=== PATIENT | female | born 1945 | race Caucasian/White ===

== ENCOUNTER 2016-08-01 09:37 | Observation (INO) | payer BC ==
[~2016-08-01] VITALS: Ht 165.1 cm; Wt 115.9 kg
[~2016-08-01 09:37] MED LIST: ASPEC325 PO; CLTP PO; DYZ PO; ENBIUNK BT; ENOX40IN SQ; FSM70 PO; LRT5 PO; OXYSR10 PO; PRAV20TA PO
[2016-08-01] MEDS ORDERED: MoRPHine SULFATE 10 MG/ML CARP/VIAL IV STA (10:15)
[2016-08-01] MEDS ORDERED: ONDANSETRON INJ 2 MG/ML 2 ML VIAL IV STA (10:15)
[2016-08-01] MEDS ORDERED: SODIUM CHLORIDE 0.9% 500ML 500 ML IV STA (10:15)
[2016-08-01 10:22] LABS: BASO % 0.1 %; BASO ABS # 0.01 K/uL (0-0.2); COMPLETE YES; EOS % 2.3 %; HEMATOCRIT 40.8 % (37-47); IG% 0.2 %; LYMPH % 7.5 %; LYMPH ABS # 0.85 K/uL (1.2-3.4); MEAN CELL VOLUME 83.4 fL (80-100); MEAN CORPUSCULAR HEMOGLOBIN 27.6 pg (25-34); MEAN CORPUSCULAR HGB CONC 33.1 g/dl (32-36); MEAN PLATELET VOLUME 9.4 fL (7.4-10.4); MONO % 6.7 %; NEUT % 83.2 %; PLATELET COUNT 186 K/uL (130-400); RED BLOOD COUNT 4.89 M/uL (4.2-5.4); WHITE BLOOD COUNT 11.37 K/uL (4.8-10.8)
[2016-08-01 10:32] LABS: BLOOD UREA NITROGEN 32 mg/dl (7-18); BUN/CREATININE RATIO 22.6 (10-20); CALCIUM 9.4 mg/dl (8.5-10.1); CARBON DIOXIDE 29 mmol/L (21-32); CHLORIDE 107 mmol/L (98-107); GLUCOSE 111 mg/dl (70-99); POTASSIUM 2.8 mmol/L (3.5-5.1); SODIUM 144 mmol/L (136-145)
[2016-08-01] MEDS ORDERED: ASPI-113 PO (10:33)
[2016-08-01] MEDS ORDERED: LEFL20TA PO (10:33)
[2016-08-01] MEDS ORDERED: TRIATAB3 PO (10:33)
[2016-08-01] MEDS ORDERED: HYDR200T5 PO (10:33)
[2016-08-01] MEDS ORDERED: CALC600T34 PO (10:33)
--- NOTE | 2016-08-01 11:13 | DIAGNOSTIC IMAGING REPORT ---
LUMBAR SPINE CT CT DOSE: 1578.13 mGy.cm HISTORY: Pain severe lower back pain TECHNIQUE: Multiaxial CT images of the lumbar spine were performed and reformatted in the sagittal and coronal plane without the use of contrast. COMPARISON: None. FINDINGS: No fractures. No subluxation. Paraspinal soft tissues are unremarkable. Moderate degenerative disc changes noted throughout. No evidence for major compromise of the spinal canal. Mild degenerative sclerosis of the vertebral endplates as well as posterior elements. IMPRESSION: Moderate degenerative change throughout. Mild osteopenia. No evidence for an acute compression deformity. No significant compromise of the spinal canal. Electronically signed by: Rocael Carver M.D. 08/01/2016 11:11 AM Dictated Date/Time: 08/01/2016 11:08 AM
[2016-08-01] MEDS ORDERED: POTASSIUM CHLORIDE 10 MEQ TABCR PO STA (11:29)
[2016-08-01] MEDS ORDERED: HYDROmorphone INJ 0.5 MG/0.5 ML SYR IV STA (11:40)
[2016-08-01 13:10] VITALS: O2SAT 95; BMI 42.5
[2016-08-01 13:18] VITALS: Ht 165.1 cm; Wt 115.9 kg
[2016-08-01] MEDS ORDERED: HYDROmorphone INJ 1 MG/ML SYR ONE (13:58)
[2016-08-01 14:36] VITALS: BP 175/93; PULSE 88; TEMP 36.5; O2SAT 97
[2016-08-01] MEDS ORDERED: LIDODERM (LIDOCAINE) PATCH 5% TD ONE (14:40)
[2016-08-01] MEDS ORDERED: DEXAMETHASONE INJ 2 MG in SYRINGE 0 ML IV SCH (15:30)
[2016-08-01] MEDS: HYDROmorphone INJ 2 MG/ML SYR/VIAL IV PRN ×2 (16:04→21:43)
--- NOTE | 2016-08-01 17:06 | EMERGENCY ROOM VISIT NOTE ---
History Report prepared by Figueroa: Yarelis Kirkpatrick Under the Supervision of: Dr. Luan Bray D.O. First contact with patient: 10:02 Chief Complaint: BACK PAIN Stated Complaint: LOWER BACK PAIN History of Present Illness The patient is a 70 year old female who presents to the Emergency Room with complaints of worsening lower back pain starting 1 week ago. The patient rates her pain as a 10/10 in severity. She returned home from shopping with her niece when the pain started. The pain is slightly relieved with laying flat. The pain worsens with sitting up, standing, and walking. She is unable to walk because of her pain. She denies any weakness or numbness in her legs. She is able to urinate and move her bowels normally. The redness on her legs is normal. Pt denies headache, change in vision, fevers, chest pain, shortness of breath, nausea, vomiting, diarrhea, and pain with urination. She denies any trauma or falls. She has had no previous back surgeries. She has had a right hip replacement. She has a history of rheumatoid arthritis. She takes 1 Ecotrin a day. She is not on any other blood thinners. Source of History: patient Onset: 1 week ago Position: back (lower) Symptom Intensity: 10/10 Timing: worsening Modifying Factors (Worsening): movement, other (sitting, standing) Modifying Factors (Relieving): other (lying flat) Associated Symptoms: No SOB, No chest pain, No diarrhea, No fevers, No headache, No nausea, No numbness, No urinary symptoms, No vomiting, No weakness Note: Pt denies change in vision. Review of Systems See HPI for pertinent positives & negatives. A total of 10 systems reviewed and were otherwise negative. Past Medical & Surgical Medical Problems: (1) Ambulatory dysfunction Family History No pertinent family history reported. Social History Smoking Status: Never Smoker Marital Status: single Housing Status: lives alone Occupation Status: retired Current/Historical Medications Scheduled Aspirin Enteric Coated (Ecotrin Or Generic), 325 MG PO DAILY Calcium Carbonate-Cholecalcife (Calcium/Vitamin D), 1 TAB PO DAILY Hydroxychloroquine Sulfate (Plaquenil), 400 MG PO QAM Leflunomide (Arava), 20 MG PO DAILY Pravastatin (Pravachol ), 20 MG PO QPM Triamterene/Hctz (Triamterene/Hctz 37.5-25MG), 1 TAB PO QPM Allergies Coded Allergies: Oxycodone (Unverified Allergy, Unknown, NAUSEA, 08/01/16) Sulfa Antibiotics (Unverified Allergy, Unknown, RASH, 08/01/16) Physical Exam Vital Signs Date Time Temp Pulse Resp B/P Pulse Ox O2 Delivery O2 Flow Rate FiO2 08/01/16 11:41 76 18 155/94 95 Room Air 08/01/16 09:40 36.6 78 20 200/158 97 Physical Exam GENERAL: Laying in bed, disheveled, nontoxic, in moderate distress EYE EXAM: normal conjunctiva OROPHARYNX: no exudate, no erythema, lips, buccal mucosa, and tongue normal and mucous membranes are moist NECK: supple, no nuchal rigidity, no adenopathy, non-tender LUNGS: Clear to auscultation. Normal chest wall mechanics HEART: no murmurs, S1 normal and S2 normal ABDOMEN: abdomen soft, non-tender, normo-active bowel sounds, no masses, no rebound or guarding. BACK: Acute reproducible tenderness to the lower lumbar spine tracking into the paraspinal region. SKIN: no rashes and no bruising UPPER EXTREMITIES: upper extremities are grossly normal. LOWER EXTREMITIES: Flexion/extension of hip, knee, ankle, EHL 5/5 bilaterally. Gross sensation intact. Old incision over bilateral knee, mild erythema on anterior shins (old per patient), skin intact. NEURO EXAM: Normal sensorium, cranial nerves II-XII grossly intact, normal speech, no weakness of arms, no weakness of legs. Medical Decision & Procedures ER Provider Diagnostic Interpretation: Radiology results as stated below per my review and the radiologist's interpretation: LUMBAR SPINE CT CT DOSE: 1578.13 mGy.cm HISTORY: Pain severe lower back pain TECHNIQUE: Multiaxial CT images of the lumbar spine were performed and reformatted in the sagittal and coronal plane without the use of contrast. COMPARISON: None. FINDINGS: No fractures. No subluxation. Paraspinal soft tissues are unremarkable. Moderate degenerative disc changes noted throughout. No evidence for major compromise of the spinal canal. Mild degenerative sclerosis of the vertebral endplates as well as posterior elements. IMPRESSION: Moderate degenerative change throughout. Mild osteopenia. No evidence for an acute compression deformity. No significant compromise of the spinal canal. Electronically signed by: Rocael Carver M.D. 08/01/2016 11:11 AM Dictated Date/Time: 08/01/2016 11:08 AM Laboratory Results 08/01/16 10:00 Red Blood Count 4.89, Mean Corpuscular Volume 83.4, Mean Corpuscular Hemoglobin 27.6, Mean Corpuscular Hemoglobin Concent 33.1, Mean Platelet Volume 9.4, Neutrophils (%) (Auto) 83.2, Lymphocytes (%) (Auto) 7.5, Monocytes (%) (Auto) 6.7, Eosinophils (%) (Auto) 2.3, Basophils (%) (Auto) 0.1, Neutrophils # (Auto) 9.47, Lymphocytes # (Auto) 0.85, Monocytes # (Auto) 0.76, Eosinophils # (Auto) 0.26, Basophils # (Auto) 0.01 08/01/16 10:00 Test 08/01/16 10:00 White Blood Count 11.37 K/uL (4.8-10.8) Red Blood Count 4.89 M/uL (4.2-5.4) Hemoglobin 13.5 g/dL (12.0-16.0) Hematocrit 40.8 % (37-47) Mean Corpuscular Volume 83.4 fL (80-100) Mean Corpuscular Hemoglobin 27.6 pg (25-34) Mean Corpuscular Hemoglobin Concent 33.1 g/dl (32-36) Platelet Count 186 K/uL (130-400) Mean Platelet Volume 9.4 fL (7.4-10.4) Neutrophils (%) (Auto) 83.2 % Lymphocytes (%) (Auto) 7.5 % Monocytes (%) (Auto) 6.7 % Eosinophils (%) (Auto) 2.3 % Basophils (%) (Auto) 0.1 % Neutrophils # (Auto) 9.47 K/uL (1.4-6.5) Lymphocytes # (Auto) 0.85 K/uL (1.2-3.4) Monocytes # (Auto) 0.76 K/uL (0.11-0.59) Eosinophils # (Auto) 0.26 K/uL (0-0.5) Basophils # (Auto) 0.01 K/uL (0-0.2) RDW Standard Deviation 47.6 fL (36.4-46.3) RDW Coefficient of Variation 15.5 % (11.5-14.5) Immature Granulocyte % (Auto) 0.2 % Immature Granulocyte # (Auto) 0.02 K/uL (0.00-0.02) Anion Gap 8.0 mmol/L (3-11) Estimated GFR () 44.0 Estimated GFR (Non- 38.0 BUN/Creatinine Ratio 22.6 (10-20) Calcium Level 9.4 mg/dl (8.5-10.1) Laboratory results per my review. Medications Administered Medications (Trade) Dose Ordered Sig/Allison Route Start Time Stop Time Status Last Admin Dose Admin Sodium Chloride (Nss 500ml) 500 ml @ 999 mls/hr Q31M STAT IV 08/01/16 10:15 08/01/16 10:45 DC 08/01/16 10:33 999 MLS/HR Ondansetron HCl (Zofran Inj) 4 mg NOW STAT IV 08/01/16 10:15 08/01/16 10:17 DC 08/01/16 10:33 4 MG Morphine Sulfate (MoRPHine SULFATE INJ) 6 mg NOW STAT IV 08/01/16 10:15 08/01/16 10:17 DC 08/01/16 10:33 6 MG Potassium Chloride (Klor-Con M10) 40 meq NOW STAT PO 08/01/16 11:29 08/01/16 11:30 DC 08/01/16 11:39 40 MEQ Hydromorphone HCl (Dilaudid Inj) 0.5 mg NOW STAT IV 08/01/16 11:40 08/01/16 11:41 DC 08/01/16 12:10 0.5 MG ECG Indication: back/shoulder pain Rate (beats per minute): 69 Rhythm: sinus rhythm Findings: PVC, other (poor baseline) ED Course ED COURSE: Vital signs were reviewed and showed hypertension. The patients medical record was reviewed The above diagnostic studies were performed and reviewed. ED treatments and interventions as stated above. 1007: The patient was evaluated in room B5. A complete history and physical examination was performed. 1015: Morphine Sulfate 6 mg IV, Zofran Inj 4 mg IV, NSS 500 ml @ 999 mls/hr IV. 1129: Potassium Chloride 40 meq PO. 1139: I reevaluated the patient. She is still having pain. She is receiving the potassium. 1140: Dilaudid Inj 0.5 mg IV. 1234: Upon reevaluation, the patient is still having pain. She is unable to ambulate and lives home alone. I discussed my findings with the patient and she understands and agrees with the treatment plan. Based on the patients age, coexisting illnesses, exam and lab findings the decision to treat as an inpatient was made. The patient remained stable while under my care. The patient will be evaluated for further management. 1246: I discussed the patient's case with LORENZO Hong - hospitalist. The patient will be evaluated for further management. Medical Decision Differential diagnoses includes but is not limited to lumbar radiculopathy, muscle strain, facture, cauda equina, mass, and disc herniation. Patient is a 70-year-old female who presents the ER for severe lower back pain which radiates bilaterally. She is no signs of cauda equina. No numbness in her groin. No weakness in her legs. Pain is excruciating and she was given IV morphine and Dilaudid with no improvement. CT of her lumbar spine shows no acute pathology. No recent trauma. CBC was unremarkable. BMP shows a potassium of 2.8. This was repleted orally. Tried to ambulate with the patient but was unsuccessful. She lives at home alone. Discussed with care managers, the patient will be observed in the hospital due to ambulatory dysfunction. Case was discussed with internal medicine and she will be observed as an inpatient. Consults Time Called: 1240 Consulting Physician: JOSE EDUARDO Hong - hospitalist Returned Call: 1246 I reviewed the patient's case with her. She will evaluate the patient for further management. Impression Primary Impression: Acute back pain Additional Impression: Hypokalemia Scribe Attestation The scribe's documentation has been prepared under my direction and personally reviewed by me in its entirety. I confirm that the note above accurately reflects all work, treatment, procedures, and medical decision making performed by me. Departure Information Dispostion Being Evaluated By Hospitalist Referrals Svetlana Rosales C.R.N.PYing (PCP) Patient Instructions My [facility] Problem Qualifiers Primary Impression: Acute back pain Back pain location: low back pain Back pain laterality: bilateral Sciatica presence: without sciatica Qualified Codes: M54.5 - Low back pain
[2016-08-01] MEDS ORDERED: NURSING VERBAL MED ORDER ONE (17:45)
[2016-08-01] MEDS: ONDANSETRON INJ 2 MG/ML 2 ML VIAL IV PRN ×2 (19:30→19:58)
[2016-08-01] MEDS: PRAVASTATIN SOD 20 MG TAB PO SCH (21:35)
[2016-08-01] MEDS: CYCLOBENZAPRINE HCL 5 MG TAB PO SCH (21:35)
[2016-08-01] MEDS: TRIAMTERENE/HCTZ 37.5/25MG TAB PO SCH (21:35)
--- NOTE | 2016-08-01 21:42 | History and Physical ---
History & Physical Date & Time of Service: Aug 01, 2016 at 21:31 Chief Complaint: Ambulatory Dysfunction Primary Care Physician: Svetlana Rosales C.R.NYingPYing History of Present Illness Source: patient The patient is a 70 y.o with a history of severe RA. She was out one week ago in the mall. At the end of that trip she started to not feel well. Over the course of the past week she had increasing back pain until today when she presents with an inability to walk and 10/10 back pain. The pain is worse with sitting up. She has normal bowel and bladder function and no other complaints. She denies any falls and is very careful because of her RA Past Medical/Surgical History RA Social History Smoking Status: Never Smoker Marital Status: single Occupational Status: retired Immunizations History of Influenza Vaccine: N/A History of Tetanus Vaccine?: Yes History of Pneumococcal: No History of Hepatitis B Vaccine: No Multi-Drug Resistant Organisms History of MDRO: No Allergies Coded Allergies: Oxycodone (Unverified Allergy, Unknown, NAUSEA, 08/01/16) Sulfa Antibiotics (Unverified Allergy, Unknown, RASH, 08/01/16) Home Medications Scheduled Aspirin Enteric Coated (Ecotrin Or Generic), 325 MG PO DAILY Calcium Carbonate-Cholecalcife (Calcium/Vitamin D), 1 TAB PO DAILY Hydroxychloroquine Sulfate (Plaquenil), 400 MG PO QAM Leflunomide (Arava), 20 MG PO DAILY Pravastatin (Pravachol ), 20 MG PO QPM Triamterene/Hctz (Triamterene/Hctz 37.5-25MG), 1 TAB PO QPM Review of Systems Musculoskeletal: + problem reported (severe back pain) Physical Exam Vital Signs Date Time Temp Pulse Resp B/P Pulse Ox O2 Delivery O2 Flow Rate FiO2 08/01/16 16:00 Room Air 08/01/16 14:36 36.5 88 20 175/93 97 Room Air 08/01/16 13:49 79 18 145/66 94 Room Air 08/01/16 13:10 95 Room Air 08/01/16 11:41 76 18 155/94 95 Room Air 08/01/16 09:40 36.6 78 20 200/158 97 General Appearance: WD/WN, + mild distress Eyes: normal inspection ENT: normal ENT inspection Neck: supple Respiratory/Chest: lungs clear Cardiovascular: regular rate, rhythm Abdomen/GI: normal bowel sounds, non tender Back: + paravertebral tenderness Extremities/Musculoskelatal: normal inspection Neurologic/Psych: normal mood/affect Diagnostics Laboratory Results Results Past 24 Hours Test 08/01/16 10:00 Range/Units White Blood Count 11.37 4.8-10.8 K/uL Red Blood Count 4.89 4.2-5.4 M/uL Hemoglobin 13.5 12.0-16.0 g/dL Hematocrit 40.8 37-47 % Mean Corpuscular Volume 83.4 80-100 fL Mean Corpuscular Hemoglobin 27.6 25-34 pg Mean Corpuscular Hemoglobin Concent 33.1 32-36 g/dl Platelet Count 186 130-400 K/uL Mean Platelet Volume 9.4 7.4-10.4 fL Neutrophils (%) (Auto) 83.2 % Lymphocytes (%) (Auto) 7.5 % Monocytes (%) (Auto) 6.7 % Eosinophils (%) (Auto) 2.3 % Basophils (%) (Auto) 0.1 % Neutrophils # (Auto) 9.47 1.4-6.5 K/uL Lymphocytes # (Auto) 0.85 1.2-3.4 K/uL Monocytes # (Auto) 0.76 0.11-0.59 K/uL Eosinophils # (Auto) 0.26 0-0.5 K/uL Basophils # (Auto) 0.01 0-0.2 K/uL RDW Standard Deviation 47.6 36.4-46.3 fL RDW Coefficient of Variation 15.5 11.5-14.5 % Immature Granulocyte % (Auto) 0.2 % Immature Granulocyte # (Auto) 0.02 0.00-0.02 K/uL Sodium Level 144 136-145 mmol/L Potassium Level 2.8 3.5-5.1 mmol/L Chloride Level 107 98-107 mmol/L Carbon Dioxide Level 29 21-32 mmol/L Anion Gap 8.0 3-11 mmol/L Blood Urea Nitrogen 32 7-18 mg/dl Creatinine 1.40 0.60-1.20 mg/dl Estimated GFR () 44.0 Estimated GFR (Non- 38.0 BUN/Creatinine Ratio 22.6 10-20 Random Glucose 111 70-99 mg/dl Calcium Level 9.4 8.5-10.1 mg/dl Diagnostic Radiology Last Resulted CBC 08/01/16 10:00 Red Blood Count 4.89, Mean Corpuscular Volume 83.4, Mean Corpuscular Hemoglobin 27.6, Mean Corpuscular Hemoglobin Concent 33.1, Mean Platelet Volume 9.4, Neutrophils (%) (Auto) 83.2, Lymphocytes (%) (Auto) 7.5, Monocytes (%) (Auto) 6.7, Eosinophils (%) (Auto) 2.3, Basophils (%) (Auto) 0.1, Neutrophils # (Auto) 9.47, Lymphocytes # (Auto) 0.85, Monocytes # (Auto) 0.76, Eosinophils # (Auto) 0.26, Basophils # (Auto) 0.01 Last Resulted BMP 08/01/16 10:00 other Impression Assessment and Plan (1) Ambulatory dysfunction Assessment & Plan: Will treat with IV narcotics flexeril and one dose of decadron, with lidocaine patch......pt eval and tx (2) Acute back pain (3) Hypokalemia Advanced Directives Existing Living Will: No Existing Power of Cut And Print Machine Operator: No VTE Prophylaxis VTE Risk Assessment Done? Y/N: Yes Risk Level: Moderate Problem Qualifiers (1) Acute back pain: Back pain location: low back pain Back pain laterality: bilateral Sciatica presence: without sciatica Qualified Codes: M54.5 - Low back pain
[2016-08-02 00:33] VITALS: BP 124/80; PULSE 71; TEMP 36.6; O2SAT 95
[2016-08-02] MEDS: ONDANSETRON INJ 2 MG/ML 2 ML VIAL IV PRN (05:09)
[2016-08-02] MEDS: HYDROmorphone INJ 2 MG/ML SYR/VIAL IV PRN (05:10)
[2016-08-02 07:19] VITALS: BP 129/75; PULSE 74; TEMP 36.8; O2SAT 92
[2016-08-02] MEDS: HYDROXYCHLOROQUINE SULFATE 200 MG TAB PO SCH (09:00)
[2016-08-02] MEDS: CALCIUM 600MG + VIT D 400 IU TAB PO SCH (09:00)
[2016-08-02] MEDS: ASPIRIN 325 MG ECTAB PO SCH (09:01)
[2016-08-02] MEDS: LIDODERM (LIDOCAINE) PATCH 5% TD SCH (09:01)
[2016-08-02] MEDS: LEFLUNOMIDE 10 MG TAB PO SCH (09:01)
[2016-08-02] MEDS: CYCLOBENZAPRINE HCL 5 MG TAB PO SCH ×3 (09:01→20:10)
--- NOTE | 2016-08-02 09:56 | Hospitalist Progress Note ---
Hospitalist Progress Note Date of Service Aug 02, 2016. Subjective Pt evaluation today including: conversation w/ patient Pain: 8 out of 10 patient still with intractable back pain lidocaine patch will be added this am Medications Medications (Trade) Dose Ordered Sig/Allison Route Start Time Stop Time Status Last Admin Dose Admin Sodium Chloride (Nss 500ml) 500 ml @ 999 mls/hr Q31M STAT IV 08/01/16 10:15 08/01/16 10:45 DC 08/01/16 10:33 999 MLS/HR Ondansetron HCl (Zofran Inj) 4 mg NOW STAT IV 08/01/16 10:15 08/01/16 10:17 DC 08/01/16 10:33 4 MG Morphine Sulfate (MoRPHine SULFATE INJ) 6 mg NOW STAT IV 08/01/16 10:15 08/01/16 10:17 DC 08/01/16 10:33 6 MG Potassium Chloride (Klor-Con M10) 40 meq NOW STAT PO 08/01/16 11:29 08/01/16 11:30 DC 08/01/16 11:39 40 MEQ Hydromorphone HCl (Dilaudid Inj) 0.5 mg NOW STAT IV 08/01/16 11:40 08/01/16 11:41 DC 08/01/16 12:10 0.5 MG Hydromorphone HCl (Dilaudid Inj) 1 mg STK-MED ONCE .ROUTE 08/01/16 13:58 08/01/16 13:59 DC 08/01/16 13:58 1 MG Hydromorphone HCl (Dilaudid Inj) 2 mg Q3H PRN IV 08/01/16 14:45 08/15/16 14:44 08/02/16 05:10 2 MG Cyclobenzaprine HCl (Flexeril Tab) 5 mg TID PO 08/01/16 21:00 08/31/16 20:59 08/02/16 09:01 5 MG Lidocaine (Lidoderm Patch 5%) 1 patch QAM TD 08/02/16 09:00 09/01/16 08:59 08/02/16 09:01 1 PATCH Miscellaneous (Remove Lidoderm Patch) 1 ea DAILY@21 N/A 08/01/16 21:00 08/31/16 20:59 08/01/16 21:00 1 EA Lidocaine 1 patch 1 patch 1440 ONCE TD 08/01/16 14:40 08/01/16 14:49 DC 08/01/16 16:02 1 PATCH Dexamethasone Sodium Phosphate/ Syringe (Decadron Inj/ Syringe) 0.5 ml @ 1 mls/min 1530 IV 08/01/16 15:30 08/01/16 17:00 DC 08/01/16 16:03 1 MLS/MIN Aspirin (Ecotrin Tab) 325 mg DAILY PO 08/02/16 09:00 09/01/16 08:59 08/02/16 09:01 325 MG Hydroxychloroquine Sulfate (Plaquenil Tab) 400 mg QAM PO 08/02/16 09:00 09/01/16 08:59 08/02/16 09:00 400 MG Pravastatin Sodium (Pravachol Tab) 20 mg QPM PO 08/01/16 21:00 08/31/16 20:59 08/01/16 21:35 20 MG Triamterene/HCTZ (Maxzide 37.5/25 Tab) 1 tab QPM PO 08/01/16 21:00 08/31/16 20:59 08/01/16 21:35 1 TAB Calcium/Vitamin D (Caltrate Plus Tab) 1 tab DAILY PO 08/02/16 09:00 09/01/16 08:59 08/02/16 09:00 1 TAB Leflunomide (Arava) 20 mg DAILY PO 08/02/16 09:00 09/01/16 08:59 08/02/16 09:01 20 MG Ondansetron HCl (Zofran Inj) 4 mg Q6H PRN IV 08/01/16 18:00 08/31/16 17:59 08/02/16 05:09 4 MG Objective Vital Signs Date Time Temp Pulse Resp B/P Pulse Ox O2 Delivery O2 Flow Rate FiO2 08/02/16 07:19 36.8 74 20 129/75 92 Room Air 08/02/16 00:33 36.6 71 16 124/80 95 Room Air 08/02/16 00:00 Room Air 08/01/16 19:15 Room Air 08/01/16 16:00 Room Air 08/01/16 14:36 36.5 88 20 175/93 97 Room Air 08/01/16 13:49 79 18 145/66 94 Room Air 08/01/16 13:10 95 Room Air 08/01/16 11:41 76 18 155/94 95 Room Air 08/01/16 09:40 36.6 78 20 200/158 97 Physical Exam General Appearance: no apparent distress Eyes: normal inspection Neck: trachea midline Respiratory/Chest: lungs clear Cardiovascular: regular rate, rhythm, no edema Abdomen: normal bowel sounds, non tender Extremities: normal range of motion Neurologic/Psychiatric: alert Skin: normal color Laboratory Results Last 24 Hours Test 08/01/16 10:00 White Blood Count 11.37 K/uL Red Blood Count 4.89 M/uL Hemoglobin 13.5 g/dL Hematocrit 40.8 % Mean Corpuscular Volume 83.4 fL Mean Corpuscular Hemoglobin 27.6 pg Mean Corpuscular Hemoglobin Concent 33.1 g/dl Platelet Count 186 K/uL Mean Platelet Volume 9.4 fL Neutrophils (%) (Auto) 83.2 % Lymphocytes (%) (Auto) 7.5 % Monocytes (%) (Auto) 6.7 % Eosinophils (%) (Auto) 2.3 % Basophils (%) (Auto) 0.1 % Neutrophils # (Auto) 9.47 K/uL Lymphocytes # (Auto) 0.85 K/uL Monocytes # (Auto) 0.76 K/uL Eosinophils # (Auto) 0.26 K/uL Basophils # (Auto) 0.01 K/uL RDW Standard Deviation 47.6 fL RDW Coefficient of Variation 15.5 % Immature Granulocyte % (Auto) 0.2 % Immature Granulocyte # (Auto) 0.02 K/uL Sodium Level 144 mmol/L Potassium Level 2.8 mmol/L Chloride Level 107 mmol/L Carbon Dioxide Level 29 mmol/L Anion Gap 8.0 mmol/L Blood Urea Nitrogen 32 mg/dl Creatinine 1.40 mg/dl Estimated GFR () 44.0 Estimated GFR (Non- 38.0 BUN/Creatinine Ratio 22.6 Random Glucose 111 mg/dl Calcium Level 9.4 mg/dl Assessment and Plan (1) Ambulatory dysfunction (2) Acute back pain Assessment & Plan: will add ms contin, to dilaudid lidocaine patch and flexeril (3) Hypokalemia (4) DVT prophylaxis Assessment & Plan: will use lovenox (5) Advance care planning Assessment & Plan: dnr discussed with patient on admission (6) Rheumatoid arthritis (7) HTN (hypertension) Assessment & Plan: well controlled continue dyazide Problem Qualifiers (1) Acute back pain: Back pain location: low back pain Back pain laterality: bilateral Sciatica presence: without sciatica Qualified Codes: M54.5 - Low back pain
[2016-08-02] MEDS: MoRPHine SULFATE CR 15 MG TAB (MS CONTIN) PO SCH ×2 (10:10→20:10)
[2016-08-02 10:50] VITALS: BP 150/84; PULSE 76; O2SAT 91
[2016-08-02] MEDS ORDERED: ENOXAPARIN 40 MG/0.4 ML SYR SQ SCH (11:30)
[2016-08-02 13:03] LABS: PROTHROMBIN TIME (PATIENT) 10.7 SECONDS (9.0-12.0)
[2016-08-02 13:50] LABS: CALCIUM 9.4 mg/dl (8.5-10.1); CREATININE 1.5 mg/dl (0.60-1.20); POTASSIUM 3.4 mmol/L (3.5-5.1)
[2016-08-02] MEDS ORDERED: IV FLUIDS COMPLETED PRN (14:30)
[2016-08-02 15:12] VITALS: BP 121/72; PULSE 74; TEMP 36.9; O2SAT 91
[2016-08-02 16:55] VITALS: O2SAT 91
[2016-08-02] MEDS: PRAVASTATIN SOD 20 MG TAB PO SCH (20:11)
[2016-08-02] MEDS: TRIAMTERENE/HCTZ 37.5/25MG TAB PO SCH (20:11)
[2016-08-02 23:41] VITALS: BP 114/70; PULSE 71; TEMP 36.9; O2SAT 93
[2016-08-03 05:59] LABS: HEMATOCRIT 33.9 % (37-47); MEAN CELL VOLUME 84.5 fL (80-100); MEAN CORPUSCULAR HEMOGLOBIN 27.2 pg (25-34); MEAN CORPUSCULAR HGB CONC 32.2 g/dl (32-36); MEAN PLATELET VOLUME 9.3 fL (7.4-10.4); PLATELET COUNT 136 K/uL (130-400); RED BLOOD COUNT 4.01 M/uL (4.2-5.4); WHITE BLOOD COUNT 6.04 K/uL (4.8-10.8)
[2016-08-03] MEDS: HYDROmorphone INJ 2 MG/ML SYR/VIAL IV PRN ×2 (06:28→10:26)
[2016-08-03 06:35] LABS: BUN/CREATININE RATIO 22.4 (10-20); CALCIUM 9.4 mg/dl (8.5-10.1); CREATININE 1.6 mg/dl (0.60-1.20); POTASSIUM 3.6 mmol/L (3.5-5.1)
[2016-08-03 07:16] VITALS: BP 129/75; PULSE 64; TEMP 36.8; O2SAT 97
[2016-08-03] MEDS: HYDROXYCHLOROQUINE SULFATE 200 MG TAB PO SCH (07:48)
[2016-08-03] MEDS: CYCLOBENZAPRINE HCL 5 MG TAB PO SCH ×3 (07:49→20:33)
[2016-08-03] MEDS: LEFLUNOMIDE 10 MG TAB PO SCH (07:49)
[2016-08-03] MEDS: POLYETHYLENE (MIRALAX) 17 GM PACK PO SCH (07:49)
[2016-08-03] MEDS: SENNA 8.6 MG TAB PO SCH (07:49)
[2016-08-03] MEDS: CALCIUM 600MG + VIT D 400 IU TAB PO SCH (07:49)
[2016-08-03] MEDS: ASPIRIN 325 MG ECTAB PO SCH (07:49)
[2016-08-03] MEDS: MoRPHine SULFATE CR 15 MG TAB (MS CONTIN) PO SCH ×2 (07:49→20:29)
[2016-08-03] MEDS: ENOXAPARIN 40 MG/0.4 ML SYR SQ SCH (07:50)
[2016-08-03] MEDS: LIDODERM (LIDOCAINE) PATCH 5% TD SCH (07:50)
[2016-08-03 15:05] VITALS: BP 138/78; PULSE 69; TEMP 36.6; O2SAT 93
[2016-08-03 16:08] VITALS: O2SAT 91
--- NOTE | 2016-08-03 17:40 | Hospitalist Progress Note ---
Hospitalist Progress Note Date of Service Aug 03, 2016. Subjective Pt evaluation today including: conversation w/ patient Patient had no acute issues overnight Pt continue to complain of backpain which is mildly improved from admission Constitutional: No fever Eyes: No worsening of vision ENT: No hearing loss Respiratory: No cough, No shortness of breath Cardiovascular: No chest pain, No edema Abdomen: No nausea, No pain Musculoskeletal: + joint pain Female : No dysuria Neurologic: No memory loss Skin: No itch, No rash Objective Vital Signs Date Time Temp Pulse Resp B/P Pulse Ox O2 Delivery O2 Flow Rate FiO2 08/03/16 15:05 36.6 69 18 138/78 93 Room Air 08/03/16 08:15 Room Air 08/03/16 07:16 36.8 64 20 129/75 97 Room Air 08/03/16 00:00 Room Air 08/02/16 23:41 36.9 71 18 114/70 93 Room Air Physical Exam General Appearance: WD/WN, no apparent distress Eyes: normal inspection ENT: normal ENT inspection Neck: supple Respiratory/Chest: chest non-tender, lungs clear Cardiovascular: regular rate, rhythm Abdomen: normal bowel sounds, non tender, soft Neurologic/Psychiatric: ethics manager II-XII nml as tested, no motor/sensory deficits, alert, oriented x 3 Skin: normal color, warm/dry Laboratory Results Last 24 Hours Test 08/03/16 05:44 White Blood Count 6.04 K/uL Red Blood Count 4.01 M/uL Hemoglobin 10.9 g/dL Hematocrit 33.9 % Mean Corpuscular Volume 84.5 fL Mean Corpuscular Hemoglobin 27.2 pg Mean Corpuscular Hemoglobin Concent 32.2 g/dl RDW Standard Deviation 48.8 fL RDW Coefficient of Variation 15.7 % Platelet Count 136 K/uL Mean Platelet Volume 9.3 fL Sodium Level 144 mmol/L Potassium Level 3.6 mmol/L Chloride Level 106 mmol/L Carbon Dioxide Level 32 mmol/L Anion Gap 6.0 mmol/L Blood Urea Nitrogen 36 mg/dl Creatinine 1.60 mg/dl Est Creatinine Clear Calc Drug Dose 41.6 ml/min Estimated GFR () 37.4 Estimated GFR (Non- 32.3 BUN/Creatinine Ratio 22.4 Random Glucose 97 mg/dl Calcium Level 9.4 mg/dl Assessment and Plan (1) Ambulatory dysfunction (2) Acute back pain (3) Hypokalemia (4) DVT prophylaxis (5) Advance care planning (6) Rheumatoid arthritis (7) HTN (hypertension) Acute back pain - CT back normal - continue pain control with dilaudid, morphine SR Flexeril - PT/OT - if no improvement consider rheumatology vs pain management consult Ambulatory dysfunction - PT/OT -patient refuses to go to rehab HTN - continue maxzide Rheumatoid arthritis - continue plaquenil and Arava PPx- lovenox DNR Problem Qualifiers (1) Acute back pain: Back pain location: low back pain Back pain laterality: bilateral Sciatica presence: without sciatica Qualified Codes: M54.5 - Low back pain
[2016-08-03] MEDS: ONDANSETRON INJ 2 MG/ML 2 ML VIAL IV PRN (18:09)
[2016-08-03] MEDS: PRAVASTATIN SOD 20 MG TAB PO SCH (20:32)
[2016-08-03] MEDS: TRIAMTERENE/HCTZ 37.5/25MG TAB PO SCH (20:32)
[2016-08-03 23:43] VITALS: BP 121/77; PULSE 77; TEMP 36.8; O2SAT 91
[2016-08-04] MEDS: HYDROmorphone INJ 2 MG/ML SYR/VIAL IV PRN ×3 (03:57→16:34)
[2016-08-04 07:26] VITALS: BP 121/79; PULSE 83; TEMP 36.8; O2SAT 92
[2016-08-04] MEDS: CYCLOBENZAPRINE HCL 5 MG TAB PO SCH ×3 (08:41→20:36)
[2016-08-04] MEDS: CALCIUM 600MG + VIT D 400 IU TAB PO SCH (08:41)
[2016-08-04] MEDS: LEFLUNOMIDE 10 MG TAB PO SCH (08:42)
[2016-08-04] MEDS: HYDROXYCHLOROQUINE SULFATE 200 MG TAB PO SCH (08:42)
[2016-08-04] MEDS: ASPIRIN 325 MG ECTAB PO SCH (08:42)
[2016-08-04] MEDS: ENOXAPARIN 40 MG/0.4 ML SYR SQ SCH (08:42)
[2016-08-04] MEDS: SENNA 8.6 MG TAB PO SCH (08:43)
[2016-08-04] MEDS: LIDODERM (LIDOCAINE) PATCH 5% TD SCH (08:43)
[2016-08-04] MEDS: POLYETHYLENE (MIRALAX) 17 GM PACK PO SCH (08:43)
[2016-08-04] MEDS: MoRPHine SULFATE CR 15 MG TAB (MS CONTIN) PO SCH ×2 (08:45→20:36)
--- NOTE | 2016-08-04 10:54 | Progress Note ---
Subjective Date of Service: Aug 04, 2016. Subjective Pt evaluation today including: conversation w/ patient, physical exam, chart review, lab review, review of studies, review of inpatient medication list Pt in bed, states pain started abruptly 4 days [employer] No hx of chronic back pain, trauma No numbness or tingliness States pain in sitting up and bending forward, currently pain is 8/10 Problem List Medical Problems: (1) Acute back pain Status: Acute (2) Hypokalemia Status: Acute Review of Systems Constitutional: No chills, No fever Respiratory: No cough, No dyspnea on exertion, No shortness of breath, No sputum, No wheezing Cardiac: No chest pain, No orthopnea Abdomen: No nausea, No pain, No vomiting Musculoskeletal: + joint pain, + muscle pain Female : No dysuria, No urinary frequency Neurologic: No numbness/tingling, No paralysis, No weakness Psychiatric: No anhedonism, No depression symptoms Objective Vital Signs Date Time Temp Pulse Resp B/P Pulse Ox O2 Delivery O2 Flow Rate FiO2 08/04/16 10:35 Room Air 08/04/16 07:26 36.8 83 24 121/79 92 Room Air 08/04/16 00:00 Room Air 08/03/16 23:43 36.8 77 18 121/77 91 Room Air 08/03/16 16:08 91 Room Air 08/03/16 15:05 36.6 69 18 138/78 93 Room Air Physical Exam General Appearance: WD/WN, + mild distress Neck: supple, no adenopathy Respiratory/Chest: lungs clear, normal breath sounds, no respiratory distress Cardiovascular: no edema, no gallop, no JVD Abdomen: non tender, soft Extremities: non-tender, normal inspection Neurologic/Psychiatric: alert, oriented x 3 Assessment and Plan (1) Ambulatory dysfunction (2) Acute back pain (3) Hypokalemia (4) DVT prophylaxis (5) Advance care planning (6) Rheumatoid arthritis (7) HTN (hypertension) Acute lower back pain - lumbar CT determined moderate degenerative changes - continue pain control with dilaudid, morphine SR Flexeril - PT/OT - Pain not much improved - pain management consult Ambulatory dysfunction - PT/OT -patient refuses to go to rehab HTN - continue maxzide Rheumatoid arthritis - continue plaquenil and Arava PPx- lovenox DNR Problem Qualifiers (1) Acute back pain: Back pain location: low back pain Back pain laterality: bilateral Sciatica presence: without sciatica Qualified Codes: M54.5 - Low back pain
[2016-08-04 15:07] VITALS: BP 149/90; PULSE 80; TEMP 36.8; O2SAT 94
[2016-08-04] MEDS: TRIAMTERENE/HCTZ 37.5/25MG TAB PO SCH (20:36)
[2016-08-04] MEDS: PRAVASTATIN SOD 20 MG TAB PO SCH (20:49)
[2016-08-04 20:52] VITALS: BP 141/75
[2016-08-05 00:22] VITALS: BP 124/78; PULSE 75; TEMP 36.8; O2SAT 95
[2016-08-05 07:03] VITALS: BP 173/86; PULSE 77; TEMP 36.7; O2SAT 95
[2016-08-05] MEDS ORDERED: METHYLPREDNISOLONE 4MG TAB, 6 DAY TAPER PO SCH (08:45)
[2016-08-05] MEDS: CYCLOBENZAPRINE HCL 5 MG TAB PO SCH ×3 (08:53→21:07)
[2016-08-05] MEDS: HYDROXYCHLOROQUINE SULFATE 200 MG TAB PO SCH (08:53)
[2016-08-05] MEDS: ASPIRIN 325 MG ECTAB PO SCH (08:53)
[2016-08-05] MEDS: POLYETHYLENE (MIRALAX) 17 GM PACK PO SCH (08:53)
[2016-08-05] MEDS: LEFLUNOMIDE 10 MG TAB PO SCH (08:54)
[2016-08-05] MEDS: CALCIUM 600MG + VIT D 400 IU TAB PO SCH (08:54)
[2016-08-05] MEDS: SENNA 8.6 MG TAB PO SCH (08:54)
[2016-08-05] MEDS: ENOXAPARIN 40 MG/0.4 ML SYR SQ SCH (08:55)
[2016-08-05] MEDS: LIDODERM (LIDOCAINE) PATCH 5% TD SCH (08:55)
[2016-08-05] MEDS: METHYLPREDNISOLONE 4 MG TAB PO SCH ×4 (09:29→21:08)
[2016-08-05 10:30] VITALS: BP 133/78; PULSE 106; O2SAT 94
[2016-08-05] MEDS: TRAMADOL HCL 50 MG TAB PO PRN ×2 (11:13→21:11)
--- NOTE | 2016-08-05 12:16 | CONSULTATION REPORT ---
DATE OF CONSULTATION: 08/05/2016 INPATIENT CONSULTATION REPORT Plan of care discussed with Dr. Guaman. CHIEF COMPLAINT: Acute right-sided low back pain. HISTORY OF PRESENT ILLNESS: Ms. Villalpando is a 70-year-old white female who was admitted due to acute intractable right-sided axial low back pain. The patient reported onset of her back pain a few days prior to admission which has been persistent without known injury. The patient has a history of severe rheumatoid arthritis and is reportedly treated with chronic steroid dependency in the outpatient setting utilizing 7.5 mg daily. The patient reports that her pain is 100% axial in the right lumbosacral region without a radicular component. She denies falls or injuries. She has no bowel or bladder incontinence. The patient denies left lower extremity radicular pain. She has no prior history of similar back pain complaints per report. She is reporting sedation from use of her current opiate therapy. She denies utilization of opiates prior to this admission. The patient denies abdominal pain or pain radiating to the hip/groin. She does have a prior history of right-sided DHARMESH but denies right-sided hip pain. She has no further constitutional complaints at this time. PAST MEDICAL HISTORY: 1. Rheumatoid arthritis with chronic steroid dependency. 2. Dyslipidemia. 3. Hypertension. 4. Chronic venous stasis. PAST SURGICAL HISTORY: Right-sided DHARMESH. SOCIAL HISTORY: The patient is retired. She is single, living alone. She reports a relative lives in an apartment in her home. She denies tobacco, alcohol or illicit drug use. FAMILY HISTORY: Unremarkable. ALLERGIES: 1. OXYCODONE. 2. SULFA ANTIBIOTICS. CURRENT MEDICATIONS: Reviewed extensively in EMR - refer for current listing. REVIEW OF SYSTEMS: The patient denies complaints related to cardiac, pulmonary, GI, , endocrine, neurologic, hepatic, renal, ENT, dermatologic or musculoskeletal other than described above in the HPI. PHYSICAL EXAMINATION: VITAL SIGNS: Temperature 36.7 degree Celsius, pulse 77, respirations 20, BP 173/86, pulse oximetry 95% on room air. GENERAL: Ms. Villalpando is sitting up upon entering the room in no obvious acute distress. Speech and thought process are appropriate. Mood and affect are appropriate. Cognition is intact. Morbidly obese. CHEST: She is nontender over the posterior lateral chest wall to palpation. She has no tenderness with AP and lateral compression. BACK AND SPINE: The patient was log rolled towards her left side with the assistance of a nurse for physical examination. She has an exaggerated lumbar lordosis. She has no focal tenderness over the midline to palpation and percussion. No focal facet or SI joint tenderness. She is moderately tender in the paravertebral musculature of the thoracolumbar junction. She is tender to palpation over the quadratus lumborum on the right greater than left. There is minimal appreciable spasm but no definable myoneural trigger points appreciated. She is nontender to the gluteal musculature. LOWER EXTREMITIES: SLR increases low back pain bilaterally. Active and resisted hip flexion and extension increased axial low back pain bilaterally. No radicular component appreciated. 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 Sensation was reported to be intact without obvious deficits to sharp and dull testing. EHL testing and dorsi and plantar flexion strength is rated at a 5/5. NEUROLOGIC: Cranial nerves grossly intact. Ambulatory function was not witnessed. IMAGING: Lumbar spine CT dated 08/01/2016 revealed moderate degenerative change throughout. Mild osteopenia. No evidence for an acute compression deformity. No significant compromise of the spinal canal. ASSESSMENT: 1. Acute low back pain - suspect myofascial etiology. 2. Rheumatoid arthritis, on chronic steroid therapy, chronic prednisone therapy. 3. Morbid obesity. TREATMENT AND RECOMMENDATIONS: 1. Will have the patient resume her chronic daily steroid dose of 7.5 mg daily per her report. 2. Will also initiate a Medrol Dosepak as well in an attempt to further diminish inflammatory response. 3. May continue with cyclobenzaprine at this time but consider alternative antispasmodic pending tolerability. 4. Will discontinue MS Judi at this time as she was not on opiate therapy prior to admission and concerns about opiate side effects due to her ambulatory dysfunction and sedation. 5. Will initiate tramadol 50 mg q. 4 hours on a p.r.n. basis for breakthrough pain to assess efficacy with titration versus adjustment pending response. 6. Will recommend application of heat applied to the affected area. 7. Agree with PT/OT evaluation. 8. Will continue to follow during hospitalization. Thank you for the consultation on Ms. Villalpando. ADÁN
--- NOTE | 2016-08-05 13:41 | Progress Note ---
Subjective Date of Service: Aug 05, 2016. Subjective Pt evaluation today including: conversation w/ patient, physical exam, chart review, lab review, review of studies, conversation w/ environmental consultant States lower back pain only mildly improved Rates pain 7/10 No radiation, numbness noted Problem List Medical Problems: (1) Acute back pain Status: Acute (2) Hypokalemia Status: Acute Review of Systems Constitutional: No chills, No fever Respiratory: No cough, No dyspnea on exertion, No shortness of breath, No sputum, No wheezing Cardiac: No chest pain, No orthopnea Abdomen: No diarrhea, No nausea, No pain, No vomiting Musculoskeletal: + joint pain, + muscle pain Female : No dysuria, No urinary frequency Neurologic: No memory loss, No numbness/tingling, No paralysis Psychiatric: No anxiety, No depression symptoms Objective Vital Signs Date Time Temp Pulse Resp B/P Pulse Ox O2 Delivery O2 Flow Rate FiO2 08/05/16 10:30 106 94 08/05/16 08:00 Room Air 08/05/16 07:03 36.7 77 20 173/86 95 Room Air 08/05/16 00:22 36.8 75 20 124/78 95 Room Air 08/05/16 00:00 Room Air 08/04/16 20:52 141/75 08/04/16 16:00 Room Air 08/04/16 15:07 36.8 80 22 149/90 94 Room Air Physical Exam General Appearance: WD/WN, + mild distress Neck: supple, no adenopathy Cardiovascular: no edema, no gallop Abdomen: non tender, soft Neurologic/Psychiatric: alert, oriented x 3 Assessment and Plan (1) Ambulatory dysfunction (2) Acute back pain (3) Hypokalemia (4) DVT prophylaxis (5) Advance care planning (6) Rheumatoid arthritis (7) HTN (hypertension) Acute lower back pain - lumbar CT determined moderate degenerative changes, pt uncomfortably with MRI - Pain only mildly improved, pain management consulted. Stop MS contin, cont on tramadol and heat application - PT/OT Ambulatory dysfunction - PT/OT -patient refuses to go to rehab HTN - continue maxzide Rheumatoid arthritis - continue plaquenil and Arava PPx- lovenox DNR Problem Qualifiers (1) Acute back pain: Back pain location: low back pain Back pain laterality: bilateral Sciatica presence: without sciatica Qualified Codes: M54.5 - Low back pain
[2016-08-05 14:57] VITALS: BP 143/84; PULSE 82; TEMP 36.9; O2SAT 95
[2016-08-05 16:00] VITALS: O2SAT 95
[2016-08-05] MEDS: TRIAMTERENE/HCTZ 37.5/25MG TAB PO SCH (21:07)
[2016-08-05] MEDS: PRAVASTATIN SOD 20 MG TAB PO SCH (21:08)
[2016-08-06 00:38] VITALS: BP 146/75; PULSE 78; TEMP 36.9; O2SAT 94
[2016-08-06 07:11] LABS: HEMATOCRIT 38.7 % (37-47); MEAN CELL VOLUME 83.9 fL (80-100); MEAN CORPUSCULAR HEMOGLOBIN 26.7 pg (25-34); MEAN CORPUSCULAR HGB CONC 31.8 g/dl (32-36); MEAN PLATELET VOLUME 9.6 fL (7.4-10.4); PLATELET COUNT 178 K/uL (130-400); RED BLOOD COUNT 4.61 M/uL (4.2-5.4); WHITE BLOOD COUNT 7.81 K/uL (4.8-10.8)
[2016-08-06] MEDS: METHYLPREDNISOLONE 4 MG TAB PO SCH ×3 (07:21→17:49)
[2016-08-06 07:30] VITALS: BP 154/83; PULSE 86; TEMP 36.5; O2SAT 94
[2016-08-06 07:42] LABS: CREATININE 1.4 mg/dl (0.60-1.20)
[2016-08-06] MEDS: SENNA 8.6 MG TAB PO SCH (08:01)
[2016-08-06] MEDS: POLYETHYLENE (MIRALAX) 17 GM PACK PO SCH (08:01)
[2016-08-06] MEDS: CYCLOBENZAPRINE HCL 5 MG TAB PO SCH (08:01)
[2016-08-06] MEDS: ASPIRIN 325 MG ECTAB PO SCH (08:01)
[2016-08-06] MEDS: CALCIUM 600MG + VIT D 400 IU TAB PO SCH (08:01)
[2016-08-06] MEDS: LEFLUNOMIDE 10 MG TAB PO SCH (08:02)
[2016-08-06] MEDS: ENOXAPARIN 40 MG/0.4 ML SYR SQ SCH (08:02)
[2016-08-06] MEDS: HYDROXYCHLOROQUINE SULFATE 200 MG TAB PO SCH (08:02)
[2016-08-06] MEDS: LIDODERM (LIDOCAINE) PATCH 5% TD SCH (08:03)
[2016-08-06] MEDS: TRAMADOL HCL 50 MG TAB PO PRN (08:06)
--- NOTE | 2016-08-06 11:13 | Pain Management Progress Note ---
Pain Management Progress Note Date of Service Aug 06, 2016. Subjective Dona reports "slight" improvement in her pain this morning. She reported persistent low back pain diffusely over the distal lumbar spine that is exacerbated by any tactile stimulation or any movement. She denies any radicular pain when he pain at rest. She continues to complain of not wanting to going to rehabilitation or participate in physical therapy. She is tearful this morning and reports feeling depressed but denies any suicidal ideations. Objective Vital Signs: Last Vital Signs Documentation Date Time Temp Pulse Resp B/P Pulse Ox O2 Delivery O2 Flow Rate FiO2 08/06/16 08:00 Room Air 08/06/16 07:30 36.5 86 16 154/83 94 Physical Exam: Exam demonstrates Dona to be awake and alert. She appears be pain-free and semirecumbent position but moves minimally. She she is tearful and continues voice refusal to participate in rehabilitation. Inspection lumbar spine demonstrates exaggerated lumbar lordosis. Palpation midline over the spinous processes and does not ligamentis is unremarkable. Palpation of the paraspinous muscular emesis diffuse myofascial pain especially over the distal lumbar/upper sacral region. Provocative testing of the facet joints of the SI joints is negative. Neurologically, she demonstrates intact sensation and symmetrical motor strength but puts minimal effort into the examination. Straight raising is negative. Imaging: CT scan performed this admission demonstrates: IMPRESSION: Moderate degenerative change throughout. Mild osteopenia. No evidence for an acute compression deformity. No significant compromise of the spinal canal. Electronically signed by: Rocael Carver M.D. 08/01/2016 11:11 AM Laboratory (Last CBC): 08/06/16 06:35 Assessment 1. Myofascial pain distal lumbar spine. 2. Depression. 3. Obesity. Recommendations 1. Approximately 15 minutes were spent with Dona to encourage her to consider placement rehabilitation facility to mobilize her lumbar spine and to condition her for being able to perform activities required for daily living. Although she did not commit at this visit, she reports she will consider this recommendation. 2. Recommend discontinue shift cyclobenzaprine as well as tramadol. 3. Recommend initiation of duloxetine 20 mg daily for musculoskeletal pain as well as for depression. 4. Recommend psychiatric evaluation if no change in her outlook or mood noted. Will defer this decision to the hospitalist. [employer] Voice Recognition This chart was completed in part utilizing [employer] Voice Recognition Software. Random word insertions, pronoun errors, and incomplete sentences are an occasional consequence of this system due to software limitations and ambient noise. Any questions or concerns about the content, text or information contained within the body of this dictation should be directly addressed to the provider for clarification.
[2016-08-06] MEDS: HYDROCODONE/ACETAMOPHEN 5/325MG TAB PO PRN ×2 (12:24→20:30)
--- NOTE | 2016-08-06 13:40 | Progress Note ---
Subjective Date of Service: Aug 06, 2016. Subjective Pt evaluation today including: conversation w/ patient, physical exam, chart review, lab review, review of studies, review of inpatient medication list Reports back pain mildly improved, rates 6/10 now Patient states now willing to look at rehab options Poor mobility at this time No fevers or chills, numbness or tingliness Problem List Medical Problems: (1) Acute back pain Status: Acute (2) Hypokalemia Status: Acute Review of Systems Constitutional: No chills, No fever Respiratory: No cough, No shortness of breath, No sputum, No wheezing Cardiac: No chest pain, No orthopnea Abdomen: No diarrhea, No nausea, No pain, No vomiting Musculoskeletal: + joint pain, + muscle pain Female : No dysuria, No urinary frequency Neurologic: No paralysis, No weakness Psychiatric: No anxiety, No depression symptoms Objective Vital Signs Date Time Temp Pulse Resp B/P Pulse Ox O2 Delivery O2 Flow Rate FiO2 08/06/16 08:00 Room Air 08/06/16 07:30 36.5 86 16 154/83 94 Room Air 08/06/16 00:38 36.9 78 20 146/75 94 Room Air 08/06/16 00:00 Room Air 08/05/16 16:00 95 Room Air 08/05/16 14:57 36.9 82 18 143/84 95 Room Air Physical Exam General Appearance: WD/WN, no apparent distress Neck: supple, no adenopathy Respiratory/Chest: lungs clear, normal breath sounds Cardiovascular: no edema, no gallop Abdomen: non tender, soft Neurologic/Psychiatric: alert, normal mood/affect Laboratory Results Last 24 Hours Test 08/06/16 06:35 White Blood Count 7.81 K/uL Red Blood Count 4.61 M/uL Hemoglobin 12.3 g/dL Hematocrit 38.7 % Mean Corpuscular Volume 83.9 fL Mean Corpuscular Hemoglobin 26.7 pg Mean Corpuscular Hemoglobin Concent 31.8 g/dl RDW Standard Deviation 45.7 fL RDW Coefficient of Variation 14.9 % Platelet Count 178 K/uL Mean Platelet Volume 9.6 fL Creatinine 1.40 mg/dl Est Creatinine Clear Calc Drug Dose 47.6 ml/min Estimated GFR () 44.0 Estimated GFR (Non- 38.0 Assessment and Plan (1) Ambulatory dysfunction (2) Acute back pain (3) Hypokalemia (4) DVT prophylaxis (5) Advance care planning (6) Rheumatoid arthritis (7) HTN (hypertension) Acute lower back pain, improving - lumbar CT determined moderate degenerative changes, pt uncomfortably with MRI - Pain only mildly improved, pain management consulted. Stop MS contin, cont on tramadol and heat application and steroids - PT/OT ordered, 2 person assist - Pt now amenable to discharge Ambulatory dysfunction - PT/OT, awaiting rehab HTN - continue maxzide Rheumatoid arthritis - continue plaquenil and Arava PPx- lovenox DNR Problem Qualifiers (1) Acute back pain: Back pain location: low back pain Back pain laterality: bilateral Sciatica presence: without sciatica Qualified Codes: M54.5 - Low back pain
[2016-08-06 15:08] VITALS: BP 130/85; PULSE 78; TEMP 36.8; O2SAT 94
[2016-08-06 16:00] VITALS: O2SAT 94
[2016-08-06] MEDS: TRIAMTERENE/HCTZ 37.5/25MG TAB PO SCH (20:27)
[2016-08-06] MEDS: PRAVASTATIN SOD 20 MG TAB PO SCH (20:29)
[2016-08-06] MEDS ORDERED: METHYLPREDNISOLONE 4 MG TAB PO SCH (21:00)
[2016-08-06 23:09] VITALS: BP 132/79; PULSE 76; TEMP 36.5; O2SAT 97
[2016-08-07] MEDS ORDERED: METHYLPREDNISOLONE 4 MG TAB PO SCH (07:00)
[2016-08-07 08:05] VITALS: BP 155/85; PULSE 80; TEMP 36.4; O2SAT 93
[2016-08-07] MEDS: HYDROCODONE/ACETAMOPHEN 5/325MG TAB PO PRN (08:15)
[2016-08-07] MEDS: CALCIUM 600MG + VIT D 400 IU TAB PO SCH (08:15)
[2016-08-07] MEDS: ENOXAPARIN 40 MG/0.4 ML SYR SQ SCH (08:15)
[2016-08-07] MEDS: POLYETHYLENE (MIRALAX) 17 GM PACK PO SCH (08:15)
[2016-08-07] MEDS: ASPIRIN 325 MG ECTAB PO SCH (08:16)
[2016-08-07] MEDS: SENNA 8.6 MG TAB PO SCH (08:16)
[2016-08-07] MEDS: HYDROXYCHLOROQUINE SULFATE 200 MG TAB PO SCH (08:16)
[2016-08-07] MEDS: LIDODERM (LIDOCAINE) PATCH 5% TD SCH (08:17)
[2016-08-07] MEDS: LEFLUNOMIDE 10 MG TAB PO SCH (08:17)
[2016-08-07] MEDS ORDERED: DULOXETINE HCL 20 MG CAP PO SCH (09:00)
[2016-08-07] MEDS ORDERED: CYM20 PO (11:03)
[2016-08-07] MEDS ORDERED: LDDP5 TD (11:03)
[2016-08-07] MEDS ORDERED: [UNRECOGNIZED DRUG - CODE] PO (11:09)
[2016-08-07] MEDS ORDERED: HYDR-5688 PO (11:09)
--- NOTE | 2016-08-07 11:14 | Discharge Instructions ---
Discharge Instructions Date of Service Aug 07, 2016. Admission Reason for Admission: Ambulatory Dysfunction Discharge Discharge Diagnosis / Problem: Lower back pain, ambulatory dysfunction Discharge Goals Goal(s): Decrease discomfort, Improve function, Increase independence, Improve disease control, Diagnostic testing, Therapeutic intervention Activity Recommendations Activity Limitations: resume your previous activity Exercise/Sports Limitations: as tolerated Shower/Bathe: no limitations . Instructions / Follow-Up Instructions / Follow-Up Patient to be discharged to inpatient rehab Please continue to take new medications of duloxetine 20 mg tablet once daily, prednisone 7.5 mg tablet once daily in addition to lidoderm patch to apply daily and percocet to take as directed If worsening back pain, numbness, or weakness please report to ER Follow up with Svetlana Eisenberg in 1-2 weeks Current Hospital Diet Patient's current hospital diet: Regular Diet Discharge Diet Recommended Diet: Regular Diet Pending Studies Studies pending at discharge: no Medical Emergencies . Who to Call and When: Medical Emergencies: If at any time you feel your situation is an emergency, please call 911 immediately. . Non-Emergent Contact Non-Emergency issues call your: Primary Care Provider Call Non-Emergent contact if: you have a fever, your pain is worsening . . "Provider Documentation" section prepared by Charles Higginbotham. . VTE Core Measure Inpt VTE Proph given/why not?: Enoxaparin (Lovenox)SQ
[2016-08-07 11:23] VITALS: BP 155/85; PULSE 80; TEMP 36.4; O2SAT 93
--- NOTE | 2016-08-07 12:03 | Discharge Summary ---
Discharge Summary Date of Service Aug 07, 2016. Discharge Summary Admission Date: Aug 02, 2016 at 09:33 Discharge Date: Aug 07, 2016 Discharge Disposition: Rehab Principal Diagnosis: Lower back pain, depression Immunizations: Have You Had Influenza Vaccine: N/A History of Tetanus Vaccine?: Yes History of Pneumococcal: No History of Hepatitis B Vaccine: No Consultations: Pain management Medication Reconciliation New Medications: Duloxetine HCl (Duloxetine HCl) 20 Mg Cap 20 MG PO QAM for 30 Days, #30 CAP Hydrocodone/Acetaminophen 5MG/325MG ([place] 5MG/325MG) Tab 1 TAB PO Q6H PRN for Pain, #30 TAB PRN PAIN Lidocaine (Lidocaine) 1 Patch Tdsy 1 PATCH TD QAM for 30 Days, #30 PATCH Prednisone (Prednisone) 2.5 Mg Tab 7.5 MG PO DAILY for 30 Days, #30 TAB Continued Medications: Aspirin Enteric Coated (Ecotrin Or Generic) 325 Mg Ectab 325 MG PO DAILY, TAB Calcium Carbonate-Cholecalcife (Calcium/Vitamin D) 1 Tab Tab 1 TAB PO DAILY Hydroxychloroquine Sulfate (Plaquenil) 200 Mg Tab 400 MG PO QAM, TAB Leflunomide (Arava) 20 Mg Tab 20 MG PO DAILY, TAB Pravastatin (Pravachol ) 20 Mg Tab 20 MG PO QPM, 0 Refills Triamterene/Hctz (Triamterene/Hctz 37.5-25MG) 1 Tab Tab 1 TAB PO QPM, TAB Discharge Exam Review of Systems: Constitutional: No chills, No fever Respiratory: No cough, No sputum Cardiovascular: No chest pain, No orthopnea Abdomen: No diarrhea, No nausea, No pain, No vomiting Musculoskeletal: + joint pain, + muscle pain Genitourinary - Male: No dysuria, No hematuria Neurologic: No numbness/tingling, No paralysis, No weakness Physical Exam: General Appearance: WD/WN, + mild distress, + obese Neck: supple, no adenopathy Respiratory/Chest: lungs clear, normal breath sounds Cardiovascular: no edema, no gallop Abdomen / GI: non tender, soft, no organomegaly Neurologic/Psychiatric: alert, oriented x 3, + depressed affect Hospital Course (1) Ambulatory dysfunction (2) Acute back pain (3) Hypokalemia (4) DVT prophylaxis (5) Advance care planning (6) Rheumatoid arthritis (7) HTN (hypertension) Acute lower back pain, improving - lumbar CT determined moderate degenerative changes, pt uncomfortable with MRI - Pain only mildly improved, pain management consulted. Stop MS contin, tramadol - Started and discharged on lidoderm patch, norco, duloxetine and prednisone - PT/OT ordered, 2 person assist, discharge to rehab at [facility] dysfunction - PT/OT HTN - continue maxzide Rheumatoid arthritis - continue plaquenil and Arava PPx- lovenox DNR Total Time Spent: Greater than 30 minutes This includes examination of the patient, discharge planning, medication reconciliation, and communication with other providers. Discharge Instructions Please refer to the electronic Patient Visit Report (Discharge Instructions) for additional information. Additional Copies To Svetlana Rosales, [email or web address] Problem Qualifiers (1) Acute back pain: Back pain location: low back pain Back pain laterality: bilateral Sciatica presence: without sciatica Qualified Codes: M54.5 - Low back pain
[2016-08-07] MEDS ORDERED: OXYC-57 PO (12:25)
[2016-08-08] MEDS ORDERED: METHYLPREDNISOLONE 4 MG TAB PO SCH (07:00)
[2016-08-09] MEDS ORDERED: METHYLPREDNISOLONE 4 MG TAB PO SCH (07:00)
[2016-08-10] MEDS ORDERED: METHYLPREDNISOLONE 4 MG TAB PO SCH (07:00)
== END 2016-08-07 13:41 ==
LOC: ENRESERVDT → ENRESERVTM → C.EDB 09:38 → INTOOBSV 12:59 → C.MS2W 12:59 → UNDOADMOB 12:59 → C.MS2W 08-02 09:33
PROVIDERS: ADMIT Internal Medicine; ATTEND Hospitalist
DX: M54.5 Low back pain (principal); R26.9 Unspecified abnormalities of gait and mobility; M06.9 Rheumatoid arthritis, unspecified; I87.8 Other specified disorders of veins; E66.01 Morbid (severe) obesity due to excess calories; E78.5 Hyperlipidemia, unspecified; E87.6 Hypokalemia; F32.9 Major depressive disorder, single episode, unspecified; I10 Essential (primary) hypertension; Z66 Do not resuscitate; Z96.641 Presence of right artificial hip joint; Z79.52 Long term (current) use of systemic steroids; Z79.82 Long term (current) use of aspirin

== ENCOUNTER → 2016-08-13 | Outpatient (CLI) | payer BC ==
[~2016-08-13] MED LIST changes: +ACET325T96 PO; -ASPEC325 PO; +ASPI-113 PO; +CALC600T34 PO; -CLTP PO; +CYM20 PO; +DULO-24 PO; -DYZ PO; -ENBIUNK BT; -ENOX40IN SQ; -FSM70 PO; +HYDR-4079 PO; +HYDR-5688 PO; +HYDR200T5 PO; +LDDP5 TD; +LEFL20TA PO; -LRT5 PO; +OXYC-57 PO; -OXYSR10 PO; +POTA20TA16 PO; +PRED10TA PO; +SENN8.6C PO; +TRIATAB3 PO; +[UNRECOGNIZED DRUG - CODE] PO
[2016-08-13 10:03] LABS: BASO % 0.2 %; BASO ABS # 0.02 K/uL (0-0.2); COMPLETE YES; EOS % 4.1 %; HEMATOCRIT 39.2 % (37-47); IG% 0.5 %; LYMPH % 11.7 %; LYMPH ABS # 1.08 K/uL (1.2-3.4); MEAN CELL VOLUME 84.3 fL (80-100); MEAN CORPUSCULAR HEMOGLOBIN 27.1 pg (25-34); MEAN CORPUSCULAR HGB CONC 32.1 g/dl (32-36); MEAN PLATELET VOLUME 9.9 fL (7.4-10.4); MONO % 7.5 %; PLATELET COUNT 193 K/uL (130-400); RED BLOOD COUNT 4.65 M/uL (4.2-5.4); WHITE BLOOD COUNT 9.23 K/uL (4.8-10.8)
[2016-08-13 10:11] LABS: ALT/SGPT 52 U/L (12-78); BLOOD UREA NITROGEN 27 mg/dl (7-18); BUN/CREATININE RATIO 18.9 (10-20); CARBON DIOXIDE 28 mmol/L (21-32); CHLORIDE 101 mmol/L (98-107); GLUCOSE 86 mg/dl (70-99); POTASSIUM 2.8 mmol/L (3.5-5.1); SODIUM 140 mmol/L (136-145)
[2016-08-13 10:14] LABS: ALB/GLOB RATIO 1.1 (0.9-2); ALKALINE PHOSPHATASE 251 U/L (45-117); AST/SGOT 30 U/L (15-37)
[2016-08-13 10:27] LABS: CALCIUM 9.4 mg/dl (8.5-10.1)
[2016-08-18 07:53] LABS: ALBUMIN % 50.95 %; ALPHA-2-GLOBULIN % 15.35 %; CREATININE UR 95 MG/DL (20-320); GAMMA GLOBULIN % 7.76 %
== END | disposition home or self-care (01) ==
LOC: C.LABVPSUA 08:58
PROVIDERS: ATTEND Internal Medicine Critical Care Medicine
DX: M06.9 Rheumatoid arthritis, unspecified (principal)

== ENCOUNTER → 2016-08-18 | Outpatient (CLI) | payer BC ==
[2016-08-18 11:17] LABS: BLOOD UREA NITROGEN 24 mg/dl (7-18); BUN/CREATININE RATIO 19.7 (10-20); CALCIUM 9.2 mg/dl (8.5-10.1); CARBON DIOXIDE 30 mmol/L (21-32); CHLORIDE 105 mmol/L (98-107); GLUCOSE 80 mg/dl (70-99); POTASSIUM 3.5 mmol/L (3.5-5.1); SODIUM 143 mmol/L (136-145)
--- NOTE | 2016-08-25 08:22 | CODING QUERY NO DIAGNOSIS ---
TREATMENT RENDERED WITHOUT A DIAGNOSIS : 45 To promote full compliance with coding requirements relating to patient care, physician participation is requested in all cases of finishing area supervisor uncertainty. Please assist us with providing a diagnosis/symptom for the test(s) below: A diagnosis/symptom was not documented on your Order. A valid diagnosis/symptom is required to bill all insurances. Please remember that we are unable to code a diagnosis of rule out, probable, possible, questionable, or suspected. Tests that require a diagnosis: DOS: 08/18/16 * PARTIAL RENAL PROFILE DIAGNOSIS: Provider Signature: Date: Thank you Pia Norton [employer] Information Management Once completed, please kindly fax back to [phone] For questions please call [phone]
== END | disposition home or self-care (01) ==
LOC: C.LABVPSUA 10:42
PROVIDERS: ATTEND Nurse Practitioner
DX: M06.9 Rheumatoid arthritis, unspecified (principal)

== ENCOUNTER → 2016-08-25 | Outpatient (CLI) | payer BC | LOC: C.LABVPSUA 10:45 | PROVIDERS: ATTEND Internal Medicine Critical Care Medicine | DX: R19.7 Diarrhea, unspecified (principal) ==

== ENCOUNTER → 2016-08-25 | Outpatient (CLI) | payer BC ==
[2016-08-25 09:41] LABS: BLOOD UREA NITROGEN 31 mg/dl (7-18); BUN/CREATININE RATIO 23.6 (10-20); CALCIUM 9.2 mg/dl (8.5-10.1); CARBON DIOXIDE 32 mmol/L (21-32); CHLORIDE 103 mmol/L (98-107); GLUCOSE 82 mg/dl (70-99); SODIUM 142 mmol/L (136-145)
== END ==
LOC: C.LABVPSUA 08:49
PROVIDERS: ATTEND Internal Medicine Critical Care Medicine
DX: M06.9 Rheumatoid arthritis, unspecified (principal)

== ENCOUNTER 2016-08-28 12:31 | Emergency (ER) | payer BC ==
[~2016-08-28] VITALS: Ht 165.1 cm; Wt 103.6 kg
[~2016-08-28 12:31] MED LIST changes: -ACET325T96 PO; -DULO-24 PO; -HYDR-4079 PO; -HYDR-5688 PO; -POTA20TA16 PO; -PRED10TA PO; -SENN8.6C PO
[2016-08-28 12:36] VITALS: TEMP 36.5; Ht 165.1 cm; Wt 103.6 kg
[2016-08-28] MEDS ORDERED: POTA20TA16 PO (13:08)
[2016-08-28] MEDS ORDERED: ACET325T96 PO (13:08)
[2016-08-28] MEDS ORDERED: SENN8.6C PO (13:08)
[2016-08-28] MEDS ORDERED: HYDR-5688 PO (13:08)
[2016-08-28] MEDS ORDERED: PRED10TA PO (13:08)
[2016-08-28 14:35] VITALS: BP 175/80; PULSE 85; O2SAT 95
[2016-08-28] MEDS ORDERED: DULO-24 PO (16:03)
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
[2016-09-02] MEDS ORDERED: HYDR-4079 PO (15:09)
[2016-09-02] MEDS ORDERED: LDDP5 TD (15:09)
== END 2016-08-28 14:35 | disposition home or self-care (01) ==
LOC: EDBD 12:31 → C.EDB 12:33
DX: T14.8 Other injury of unspecified body region (principal); W10.9XXA Fall (on) (from) unspecified stairs and steps, initial encounter; Y92.009 Unspecified place in unspecified non-institutional (private) residence as the place of occurrence of the external cause; I10 Essential (primary) hypertension; M06.9 Rheumatoid arthritis, unspecified; M54.5 Low back pain; Z87.81 Personal history of (healed) traumatic fracture; Z79.82 Long term (current) use of aspirin

== ENCOUNTER 2016-08-28 15:31 | Inpatient (IN) | payer BC, OTHER ==
[~2016-08-28] VITALS: Ht 165.1 cm; Wt 98.3 kg
[~2016-08-28 15:31] MED LIST changes: +ACET325T96 PO; +HYDR-5688 PO; +POTA20TA16 PO; +PRED10TA PO; +SENN8.6C PO
[2016-08-28] MEDS ORDERED: MoRPHine SULFATE 4 MG/ML 1 ML CARP\\VIAL IV STA ×2 (15:49→17:40)
[2016-08-28] MEDS ORDERED: ONDANSETRON INJ 2 MG/ML 2 ML VIAL IV STA (15:49)
[2016-08-28 16:01] LABS: COMPLETE YES; EOS % 0.1 %; IG% 0.4 %; LYMPH % 8.5 %; LYMPH ABS # 0.82 K/uL (1.2-3.4); MEAN CELL VOLUME 83.5 fL (80-100); MEAN CORPUSCULAR HEMOGLOBIN 28.3 pg (25-34); MONO % 0.9 %; NEUT % 90.1 %; PLATELET COUNT 186 K/uL (130-400); RED BLOOD COUNT 5.15 M/uL (4.2-5.4); WHITE BLOOD COUNT 9.63 K/uL (4.8-10.8)
[2016-08-28] MEDS ORDERED: DULO-24 PO (16:03)
[2016-08-28 16:18] LABS: BUN/CREATININE RATIO 21.7 (10-20); CALCIUM 10.4 mg/dl (8.5-10.1); CREATININE 1.5 mg/dl (0.60-1.20); POTASSIUM 3.1 mmol/L (3.5-5.1)
--- NOTE | 2016-08-28 16:35 | DIAGNOSTIC IMAGING REPORT ---
CT pelvis PELVIS NO IV/ORAL CONT (CT) CLINICAL HISTORY: Trauma pain TECHNIQUE: Transaxial acquisition. Multiple axial reformatted images. COMPARISON STUDY: None FINDINGS: Total right hip arthroplasty with the arthroplasty good position. Pubic rings appear to be intact. Generalized osteoporosis of the sacrum. No last, there is significant possibly of a nondisplaced cortical fracture of the right as well as left inferior sacral rings. Sacral foramina appear symmetric. IMPRESSION: 1. Generalized osteopenia/osteoporosis of the sacrum. 2. High probability of nondisplaced cortical fractures of the left as well as right sacral wings. 3. Prior total right hip arthroplasty in good position Electronically signed by: Rocael Carver M.D. 08/28/2016 4:34 PM Dictated Date/Time: 08/28/2016 4:30 PM
--- NOTE | 2016-08-28 16:37 | DIAGNOSTIC IMAGING REPORT ---
CT OF THE LUMBAR SPINE WITHOUT CONTRAST CT DOSE: 2878.68 mGy.cm CLINICAL HISTORY: Fall. Low back pain radiating into left lower extremity. TECHNIQUE: Axial images of the lumbar spine were obtained without IV contrast. Sagittal and coronal reconstructions were viewed. COMPARISON STUDY: Lumbar spine CT August 01, 2016. FINDINGS: For purposes of numbering on this exam, the L5-S1 disc space is assigned to axial image [id number]. There is a minimally displaced fracture of the left transverse process of L5 and a nondisplaced fracture of the right transverse process of L5. L5 vertebral body height is maintained. In addition, there is a mildly displaced fracture involving the S2 vertebral body. There are fractures of the bilateral sacral ala which are comminuted and mildly displaced. There is callus formation. These fractures are likely subacute. No additional fractures are identified on this exam. Multilevel degenerative disc disease and facet arthrosis is present. IMPRESSION: 1. Comminuted, mildly displaced fractures of the bilateral sacral ala, the S2 vertebral body and bilateral transverse processes of L5. Mild callus formation. These fractures are likely subacute. 2. Mild to moderate multilevel degenerative disc disease and facet arthrosis of the lumbar spine. Electronically signed by: Brady Hassan M.D. 08/28/2016 4:36 PM Dictated Date/Time: 08/28/2016 4:25 PM
[2016-08-28] MEDS ORDERED: ALUMINUM/MAGNESIUM/SIMETH (MAALOX MAX) 30 ML UDC PO PRN (18:00)
[2016-08-28] MEDS ORDERED: MoRPHine SULFATE 4 MG/ML 1 ML CARP\\VIAL IV PRN (18:15)
[2016-08-28] MEDS ORDERED: POTASSIUM CHLORIDE 10 MEQ TABCR PO STA (18:19)
--- NOTE | 2016-08-28 18:19 | Progress Note ---
Progress Note Date of Service August 28, 2016. Progress Note sever LBP, with multipel sacral fx, [id number]
[2016-08-28] MEDS ORDERED: HydrALAZINE HCL 20 MG/ML VIAL IV. PRN (18:30)
[2016-08-28] MEDS ORDERED: POTASSIUM CHLORIDE 10 MEQ TABCR ONE (18:48)
[2016-08-28 19:45] VITALS: BP 179/77; PULSE 82; TEMP 36.6; O2SAT 97; Ht 165.1 cm; Wt 98.3 kg
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
--- NOTE | 2016-08-28 20:34 | HISTORY & PHYSICAL EXAMINATION ---
DATE OF ADMISSION: 08/28/2016 This is an inpatient admission, 31 minutes. CHIEF COMPLAINT: Lower back severe pain with left buttock area pain and multiple sacral fractures possible. HISTORY OF PRESENT ILLNESS: The patient is a 70-year-old white female with a significant past medical history of ambulatory dysfunction, DVT, hypertension and rheumatoid arthritis coming to the hospital Emergency Room because of episodes of fall which occurred prior to arrival. The patient leaving from [facility] going home today from the care home because her insurance would no longer cover her stay. She reported, when she was leaving, she was on stairs, coming out and fell backwards, on her butt. She did not hit her head. Denied chest pain, palpitation or lower extremity swelling. Denied shortness of breath. Denied vision changes or jaw pain. Denied neck pain. She reports there were some muscle issues in her lower back and sacral areas when she was in [facility]. In the Emergency Room, she was seen and was planning to be discharged home, but she could not get into the car. She has worsening pain when standing. She stated there was left side pain, seems somehow radiates to the left lower extremities from the previous sciatica pain. In the Emergency Room, CT of the pelvic and L-spine was done. CT of L-spine shows mild displaced fracture of the bilateral sacral ala: This fracture is possibly subacute. CT of the pelvis shows generalized osteoporosis with nondisplaced cortical fractures as well as right sacral wing. Therefore, ED physician talked to me and decided to keep the patient here. When I interviewed the patient she was awake, alert and orientated and confirmed me the above information and reports has severe lower back pain which required pain medications. The patient denied fever or chills. She denied cough, sputum or shortness of breath. Denied chest pain, palpitation or lower extremity swelling. Denied nausea, vomiting, abdominal pain, diarrhea or constipation. Denied dysuria, urgency or frequencies. PAST MEDICAL HISTORY: Include rheumatoid arthritis, ambulatory dysfunction. SOCIAL HISTORY: Denied tobacco abuse disorder, alcohol abuse disorder and illicit drug abuse. ALLERGIES: TO OXYCODONE AND SULFA ANTIBIOTICS. OTHER MEDICATIONS: Include: Aspirin, calcium carbonate, hydrochloroquine which is Plaquenil 400 mg p.o. q.a.m., Avala 20 mg p.o. daily, pravastatin 20 mg p.o. q.p.m. and triamterene/HCTZ 37.5/25 mg one tab p.o. q.p.m. REVIEW OF SYSTEMS: Please see HPI, otherwise 14 point organ system review was negative. PHYSICAL EXAMINATION: VITAL SIGNS: Temperature is 36.6, pulse 78, respiratory rate 20, blood pressure initially was 200/150, currently is 175/93. GENERAL: The patient is a white female, looks tired, chronically ill looking, awake, alert and orientated, speaks in full sentences, conversational. HEENT: Normocephalic. Pupils are equal, round and responds to light, atraumatic. NECK: Supple. LUNGS: Clear. HEART: Regular rhythm. S1, S2. ABDOMEN: Soft and nontender. Bowel sounds are positive. BACK: Lower back vertebral tenderness and the sacral area tenderness. EXTREMITIES: Lower extremities no edema, normal color. NEUROLOGICAL EVALUATION: Cranial nerves II-XII was intact. There were no local deficits. LABORATORY STUDIES: WBC 7.8, hemoglobin 12, platelet 178. PT, INR were not checked today. There was no other new labs today. Today's BMP; potassium 3.1, BUN 32 and creatinine 1.5 which is her baseline. Blood glucose was 136. IMAGING STUDIES: Like I mentioned L-spine CT study shows comminuted mild displaced fracture of the bilateral sacral ala etc. For details please see the report. Pelvis CT study shows high probability of nondisplaced cortical fractures in the left as well as the right sacral wings. ASSESSMENT AND PLAN: A 70-year-old white female with the problems as below: 1. Severe lower back pain, ambulatory dysfunction and possible multiple sacral and pelvic fractures. 2. Hypokalemia. 3. Chronic kidney disease stage 3, stable, in baseline. 4. Accelerated hypertension. 5. Dyslipidemia. I agree patient cannot be sent home, which is not safe. She lives alone, has severe pain and has multiple sacral fractures. Therefore, we will keep her in the medical/surgical floor. Pain control. Orthopedic consultation for now is; bed rest, nonweightbearing for now and then we will go from there after orthopedics saw the patient. We will continue home medication. We will give morphine p.r.n. for the pain. We will replace potassium. We will give hydralazine for accelerated hypertension. GI and DVT prophylaxis is covered. The patient is a full code. MTDD
[2016-08-28] MEDS: TRIAMTERENE/HCTZ 37.5/25MG TAB PO SCH (21:22)
[2016-08-28] MEDS: HEPARIN SOD 5000 UNIT/0.5 ML CARP SQ SCH (21:22)
[2016-08-28] MEDS: SENNA 8.6 MG TAB PO SCH (21:23)
[2016-08-28] MEDS: PRAVASTATIN SOD 20 MG TAB PO SCH (21:24)
[2016-08-28 23:40] VITALS: BP 133/73; PULSE 84; TEMP 36.4; O2SAT 97
[2016-08-29] MEDS: HYDROCODONE/ACETAMOPHEN 5/325MG TAB PO PRN ×4 (04:18→21:18)
[2016-08-29 07:04] VITALS: BP 119/74; PULSE 73; TEMP 36.5; O2SAT 98
[2016-08-29] MEDS: HYDROXYCHLOROQUINE SULFATE 200 MG TAB PO SCH (08:41)
[2016-08-29] MEDS: LEFLUNOMIDE 10 MG TAB PO SCH (08:41)
[2016-08-29] MEDS: ASPIRIN 325 MG ECTAB PO SCH (08:41)
[2016-08-29] MEDS: CALCIUM 600MG + VIT D 400 IU TAB PO SCH (08:41)
[2016-08-29] MEDS: DULOXETINE HCL 20 MG CAP PO SCH (08:41)
[2016-08-29] MEDS: SENNA 8.6 MG TAB PO SCH ×2 (08:42→21:10)
[2016-08-29] MEDS: HEPARIN SOD 5000 UNIT/0.5 ML CARP SQ SCH ×2 (10:59→21:13)
[2016-08-29 14:55] VITALS: BP 117/77; PULSE 89; TEMP 36.4; O2SAT 95
--- NOTE | 2016-08-29 16:32 | Progress Note ---
Subjective Date of Service: August 29, 2016. Subjective Pt evaluation today including: conversation w/ patient, physical exam, chart review, lab review, review of studies, review of inpatient medication list Problem List Medical Problems: (1) Acute back pain Status: Acute (2) Back pain Status: Acute (3) Contusion of multiple sites Status: Acute (4) Fall Status: Acute (5) Hypokalemia Status: Acute (6) Sacral fracture Status: Acute Review of Systems Constitutional: No chills, No fever Respiratory: No cough, No dyspnea on exertion, No shortness of breath, No sputum, No wheezing Cardiac: No chest pain, No orthopnea Abdomen: No diarrhea, No nausea, No pain, No vomiting Musculoskeletal: + joint pain, + muscle pain Female : No dysuria, No urinary frequency Objective Vital Signs Date Time Temp Pulse Resp B/P Pulse Ox O2 Delivery O2 Flow Rate FiO2 08/29/16 14:55 36.4 89 16 117/77 95 Room Air 08/29/16 07:17 Room Air 08/29/16 07:04 36.5 73 19 119/74 98 Room Air 08/29/16 00:00 Room Air 08/28/16 23:40 36.4 84 18 133/73 97 Room Air 08/28/16 20:00 Room Air 08/28/16 19:45 36.6 82 20 179/77 97 Room Air 08/28/16 18:37 69 18 116/68 92 Room Air 08/28/16 17:16 80 18 146/77 96 Room Air Physical Exam General Appearance: WD/WN, no apparent distress Neck: supple, no adenopathy Respiratory/Chest: lungs clear, normal breath sounds Cardiovascular: no edema, no gallop Abdomen: non tender, soft Neurologic/Psychiatric: alert, oriented x 3 Assessment and Plan A 70-year-old white female with the problems as below: 1. Severe lower back pain, ambulatory dysfunction and possible multiple sacral and pelvic fractures. 2. Hypokalemia. 3. Chronic kidney disease stage 3, stable, in baseline. 4. Accelerated hypertension. 5. Dyslipidemia. I agree patient cannot be sent home, which is not safe. She lives alone, has severe pain and has multiple sacral fractures. Therefore, we will keep her in the medical/surgical floor. Pain control. Orthopedic consultation for now is; bed rest, nonweightbearing for now and then we will go from there after orthopedics saw the patient. We will continue home medication. We will give morphine p.r.n. for the pain. We will replace potassium. We will give hydralazine for accelerated hypertension. GI and DVT prophylaxis is covered. The patient is a full code.
--- NOTE | 2016-08-29 16:34 | CONSULTATION REPORT ---
DATE OF CONSULTATION: 08/29/2016 CHIEF COMPLAINT: Low back and buttock pain. HISTORY OF PRESENT ILLNESS: Ms. Villalpando is a pleasant 70-year-old female who had the onset of pain approximately a month ago in the lower portion of her back. She was hospitalized at that point and was sent to the [facility]. She had a fall recently, which increased her back pain significantly. She returned to the Emergency Room for evaluation. She was having a lot of back and left-sided leg pain at the time, but the leg pain seems to have settled down. She has a hard time standing or walking at this point. She states that she had some shots of medication in the Emergency Room which helped to calm down the leg symptoms themselves. She has not had any current perceived weakness in her legs. No numbness or tingling in her feet. She had been on Fosamax at one point in time, but had been taken off of it. She also has a history significant for rheumatoid arthritis, being managed through [facility]. She denies any other numbness, tingling or paresthesias. PAST MEDICAL HISTORY: Significant for ambulatory dysfunction, hypertension, rheumatoid arthritis, low back pain, at risk for DVTs. MEDICATIONS: Include enteric-coated aspirin, calcium with vitamin D, Cymbalta, Plaquenil, Arava, Klor-Con, Pravachol, prednisone, senna, triamterene/hydrochlorothiazide. She does use Mohler as needed for pain as well as Tylenol. ALLERGIES: SHE HAS ALLERGIES TO OXYCODONE AND SULFA. REVIEW OF SYSTEMS: Recorded in the patient's medical history. SOCIAL HISTORY: The patient is single. She lives alone. She is retired. Nonsmoker, no alcohol use. PHYSICAL EXAMINATION: She is alert and oriented in her bed. She has some tenderness along the sacral region. She has no tenderness with internal and external rotation of the hips. Her lower extremity motor exam reveals no focal atrophy. Strength and sensation are both intact. She does have some brawny edematous changes in the anterior portions of both of her shins. Her calves are supple and nontender. Her abdomen is supple and nontender. Visual hernandez are grossly intact. Speech is clear. RADIOGRAPHIC IMAGES: CT scan of the lumbar spine performed recently is available for review. This reveals a fracture through the S1-S2 segments with some angulation and minimal displacement. There does appear to be some anterior callous formation. She has bilateral sacral ala fractures which are minimally displaced and minimally displaced transverse process fractures of L5. ASSESSMENT: Multiple pelvic fractures with transverse process fractures of L5. PLAN: At this point, the fractures are intrinsically stable. She does need to have supported weightbearing status using a walker for ambulation. She should have PT, OT and continued measures at pain control. These fractures should heal up nicely on their own, but may take 6-8 weeks before the pain really subsides. She is likely to need some type of placement as she does live by herself. For followup care we will see her in the office for routine x-rays approximately 4 weeks from this date. I have reviewed this plan with Dr. Bird and if there are any other questions or concerns, please do not hesitate to contact our service.
[2016-08-29] MEDS: PRAVASTATIN SOD 20 MG TAB PO SCH (21:10)
[2016-08-29] MEDS: TRIAMTERENE/HCTZ 37.5/25MG TAB PO SCH (21:10)
[2016-08-29 23:24] VITALS: BP 139/78; PULSE 85; TEMP 36.4; O2SAT 93
[2016-08-30] MEDS: HYDROCODONE/ACETAMOPHEN 5/325MG TAB PO PRN ×2 (03:13→07:51)
[2016-08-30 07:15] VITALS: BP 139/85; PULSE 81; TEMP 36.5; O2SAT 94
[2016-08-30 08:02] VITALS: O2SAT 94
[2016-08-30] MEDS: HEPARIN SOD 5000 UNIT/0.5 ML CARP SQ SCH ×2 (09:41→21:03)
[2016-08-30] MEDS: SENNA 8.6 MG TAB PO SCH ×2 (09:43→20:57)
[2016-08-30] MEDS: HYDROXYCHLOROQUINE SULFATE 200 MG TAB PO SCH (09:43)
[2016-08-30] MEDS: ASPIRIN 325 MG ECTAB PO SCH (09:43)
[2016-08-30] MEDS: LEFLUNOMIDE 10 MG TAB PO SCH (09:44)
[2016-08-30] MEDS: CALCIUM 600MG + VIT D 400 IU TAB PO SCH (09:44)
[2016-08-30] MEDS: DULOXETINE HCL 20 MG CAP PO SCH (09:44)
[2016-08-30] MEDS ORDERED: LIDODERM (LIDOCAINE) PATCH 5% TD ONE (10:00)
[2016-08-30] MEDS: HYDROCODONE/ACETAMI 10/325 TAB PO PRN ×2 (13:35→21:10)
--- NOTE | 2016-08-30 15:15 | Progress Note ---
Subjective Date of Service: August 30, 2016. Subjective Pt evaluation today including: conversation w/ patient, physical exam, chart review, lab review, review of studies, review of inpatient medication list States pain poorly controlled No numbness or tingliness No acute events overnight Problem List Medical Problems: (1) Acute back pain Status: Acute (2) Back pain Status: Acute (3) Contusion of multiple sites Status: Acute (4) Fall Status: Acute (5) Hypokalemia Status: Acute (6) Sacral fracture Status: Acute Review of Systems Constitutional: No chills, No fever Respiratory: No cough, No shortness of breath, No sputum, No wheezing Cardiac: No chest pain, No orthopnea Abdomen: No diarrhea, No nausea, No pain, No vomiting Musculoskeletal: + joint pain, No muscle pain Female : No dysuria, No urinary frequency Objective Vital Signs Date Time Temp Pulse Resp B/P Pulse Ox O2 Delivery O2 Flow Rate FiO2 08/30/16 08:02 94 Room Air 08/30/16 07:15 36.5 81 18 139/85 94 Room Air 08/30/16 00:15 Room Air 08/29/16 23:24 36.4 85 17 139/78 93 Room Air Physical Exam General Appearance: WD/WN, + mild distress Neck: supple, no adenopathy Respiratory/Chest: lungs clear, normal breath sounds Cardiovascular: no edema, no gallop Abdomen: non tender, soft Extremities: normal range of motion, normal inspection Neurologic/Psychiatric: alert, oriented x 3 Assessment and Plan A 70-year-old white female with the problems as below: 1. Severe lower back pain, ambulatory dysfunction and possible multiple sacral and pelvic fractures. 2. Hypokalemia. 3. Chronic kidney disease stage 3, stable, in baseline. 4. Accelerated hypertension. 5. Dyslipidemia. I agree patient cannot be sent home, which is not safe. She lives alone, has severe pain and has multiple sacral fractures. Therefore, we will keep her in the medical/surgical floor. Pain control. Orthopedic consultation - no intervention at this time. We will continue home medication. Lidoderm patch and norco PRN pain. We will replace potassium. We will give hydralazine for accelerated hypertension. GI and DVT prophylaxis is covered. The patient is a full code.
[2016-08-30 15:20] VITALS: BP 126/79; PULSE 87; TEMP 36.5; O2SAT 95
[2016-08-30] MEDS: TRIAMTERENE/HCTZ 37.5/25MG TAB PO SCH (20:57)
[2016-08-30] MEDS: PRAVASTATIN SOD 20 MG TAB PO SCH (20:57)
[2016-08-30 23:15] VITALS: BP 139/77; PULSE 79; TEMP 36.6; O2SAT 95
[2016-08-31 06:55] LABS: HEMATOCRIT 39.4 % (37-47); MEAN CELL VOLUME 84.2 fL (80-100); MEAN CORPUSCULAR HEMOGLOBIN 26.9 pg (25-34); PLATELET COUNT 132 K/uL (130-400); RED BLOOD COUNT 4.68 M/uL (4.2-5.4)
[2016-08-31 07:14] VITALS: BP 129/85; PULSE 82; TEMP 36.4; O2SAT 94
[2016-08-31 08:00] VITALS: O2SAT 94
[2016-08-31] MEDS: ASPIRIN 325 MG ECTAB PO SCH (08:34)
[2016-08-31] MEDS: LIDODERM (LIDOCAINE) PATCH 5% TD SCH (08:34)
[2016-08-31] MEDS: SENNA 8.6 MG TAB PO SCH ×2 (08:34→20:46)
[2016-08-31] MEDS: CALCIUM 600MG + VIT D 400 IU TAB PO SCH (08:35)
[2016-08-31] MEDS: DULOXETINE HCL 20 MG CAP PO SCH (08:35)
[2016-08-31] MEDS: LEFLUNOMIDE 10 MG TAB PO SCH (08:35)
[2016-08-31] MEDS: HYDROXYCHLOROQUINE SULFATE 200 MG TAB PO SCH (08:35)
[2016-08-31] MEDS: HYDROCODONE/ACETAMI 10/325 TAB PO PRN ×3 (08:36→19:26)
[2016-08-31] MEDS: ONDANSETRON INJ 2 MG/ML 2 ML VIAL IV PRN (08:54)
[2016-08-31] MEDS: HEPARIN SOD 5000 UNIT/0.5 ML CARP SQ SCH ×2 (10:37→21:49)
[2016-08-31] MEDS: ACETAMINOPHEN 325 MG TAB PO PRN (11:09)
--- NOTE | 2016-08-31 15:14 | Progress Note ---
Subjective Date of Service: August 31, 2016. Subjective Pt evaluation today including: conversation w/ patient, physical exam, chart review, lab review, review of studies, review of inpatient medication list Problem List Medical Problems: (1) Acute back pain Status: Acute (2) Back pain Status: Acute (3) Contusion of multiple sites Status: Acute (4) Fall Status: Acute (5) Hypokalemia Status: Acute (6) Sacral fracture Status: Acute Review of Systems Constitutional: No chills, No fever Respiratory: No cough, No dyspnea on exertion, No shortness of breath, No sputum, No wheezing Cardiac: No chest pain, No orthopnea Abdomen: No constipation, No diarrhea, No nausea, No pain, No vomiting Musculoskeletal: No joint pain, No muscle pain Female : No dysuria, No urinary frequency Objective Vital Signs Date Time Temp Pulse Resp B/P Pulse Ox O2 Delivery O2 Flow Rate FiO2 08/31/16 08:00 94 Room Air 08/31/16 07:14 36.4 82 18 129/85 94 Room Air 08/31/16 00:10 Room Air 08/30/16 23:15 36.6 79 16 139/77 95 Room Air 08/30/16 15:30 Room Air 08/30/16 15:20 36.5 87 16 126/79 95 Room Air Physical Exam General Appearance: WD/WN, no apparent distress Neck: supple, no adenopathy Respiratory/Chest: lungs clear, normal breath sounds Cardiovascular: no edema, no gallop Abdomen: non tender, soft Neurologic/Psychiatric: alert, normal mood/affect Laboratory Results Last 24 Hours Test 08/31/16 06:10 White Blood Count 5.00 K/uL Red Blood Count 4.68 M/uL Hemoglobin 12.6 g/dL Hematocrit 39.4 % Mean Corpuscular Volume 84.2 fL Mean Corpuscular Hemoglobin 26.9 pg Mean Corpuscular Hemoglobin Concent 32.0 g/dl RDW Standard Deviation 45.5 fL RDW Coefficient of Variation 14.8 % Platelet Count 132 K/uL Mean Platelet Volume 10.0 fL Assessment and Plan A 70-year-old white female with the problems as below: 1. Severe lower back pain, ambulatory dysfunction and possible multiple sacral and pelvic fractures. 2. Hypokalemia. 3. Chronic kidney disease stage 3, stable, in baseline. 4. Accelerated hypertension. 5. Dyslipidemia. I agree patient cannot be sent home, which is not safe. She lives alone, has severe pain and has multiple sacral fractures. Therefore, we will keep her in the medical/surgical floor. Pain control. Orthopedic consultation - no intervention at this time. We will continue home medication. Lidoderm patch and norco PRN pain. We will replace potassium. We will give hydralazine for accelerated hypertension. GI and DVT prophylaxis is covered. The patient is a full code.
[2016-08-31 15:45] VITALS: BP 115/77; PULSE 78; TEMP 36.5; O2SAT 96
[2016-08-31 16:00] VITALS: O2SAT 96
[2016-08-31] MEDS: MAGNESIUM HYDROXIDE SUSP 30 ML UDC PO PRN (20:17)
[2016-08-31] MEDS: TRIAMTERENE/HCTZ 37.5/25MG TAB PO SCH (20:46)
[2016-08-31] MEDS: PRAVASTATIN SOD 20 MG TAB PO SCH (20:46)
[2016-08-31 22:55] VITALS: BP 125/77; PULSE 83; TEMP 36.8; O2SAT 94
[2016-09-01 07:37] VITALS: BP 136/83; PULSE 89; TEMP 36.5; O2SAT 95
[2016-09-01] MEDS: MAGNESIUM HYDROXIDE SUSP 30 ML UDC PO PRN (07:49)
[2016-09-01] MEDS: DULOXETINE HCL 20 MG CAP PO SCH (07:49)
[2016-09-01] MEDS: HYDROXYCHLOROQUINE SULFATE 200 MG TAB PO SCH (07:49)
[2016-09-01] MEDS: CALCIUM 600MG + VIT D 400 IU TAB PO SCH (07:50)
[2016-09-01] MEDS: SENNA 8.6 MG TAB PO SCH ×2 (07:50→21:00)
[2016-09-01] MEDS: ASPIRIN 325 MG ECTAB PO SCH (07:50)
[2016-09-01] MEDS: LIDODERM (LIDOCAINE) PATCH 5% TD SCH (07:51)
[2016-09-01] MEDS: ACETAMINOPHEN 325 MG TAB PO PRN (08:37)
[2016-09-01 09:52] LABS: BUN/CREATININE RATIO 14.3 (10-20); CALCIUM 9.2 mg/dl (8.5-10.1); CREATININE 1.5 mg/dl (0.60-1.20); POTASSIUM 3.4 mmol/L (3.5-5.1)
[2016-09-01] MEDS ORDERED: NURSING VERBAL MED ORDER ONE (10:15)
[2016-09-01] MEDS: LEFLUNOMIDE 10 MG TAB PO SCH (10:19)
[2016-09-01] MEDS: HEPARIN SOD 5000 UNIT/0.5 ML CARP SQ SCH ×2 (10:20→22:00)
[2016-09-01] MEDS: HYDROCODONE/ACETAMI 10/325 TAB PO PRN ×2 (10:24→15:50)
[2016-09-01 11:16] VITALS: BP 123/76; PULSE 98; TEMP 36.6; O2SAT 96
[2016-09-01] MEDS: ONDANSETRON INJ 2 MG/ML 2 ML VIAL IV PRN (12:47)
--- NOTE | 2016-09-01 13:45 | Progress Note ---
Subjective Date of Service: September 01, 2016. Subjective Pt evaluation today including: conversation w/ patient, physical exam, chart review, lab review, review of studies, review of inpatient medication list Worsening pain with physical therapy this AM Asking for PRN pain meds Agreeable for rehab Problem List Medical Problems: (1) Acute back pain Status: Acute (2) Back pain Status: Acute (3) Contusion of multiple sites Status: Acute (4) Fall Status: Acute (5) Hypokalemia Status: Acute (6) Sacral fracture Status: Acute Review of Systems Constitutional: No chills, No fever Respiratory: No cough, No dyspnea on exertion, No shortness of breath, No sputum, No wheezing Cardiac: No chest pain, No orthopnea Abdomen: No constipation, No diarrhea, No nausea, No pain, No vomiting Musculoskeletal: + joint pain, + muscle pain Female : No dysuria, No urinary frequency Neurologic: No memory loss, No paralysis Objective Vital Signs Date Time Temp Pulse Resp B/P Pulse Ox O2 Delivery O2 Flow Rate FiO2 09/01/16 11:16 36.6 98 14 123/76 96 Room Air 09/01/16 07:40 Room Air 09/01/16 07:37 36.5 89 16 136/83 95 Room Air 08/31/16 22:55 36.8 83 16 125/77 94 Room Air 08/31/16 19:25 Room Air 08/31/16 16:00 96 Room Air 08/31/16 15:45 36.5 78 16 115/77 96 Room Air Physical Exam General Appearance: WD/WN, + mild distress Neck: supple, no adenopathy Respiratory/Chest: chest non-tender, lungs clear Cardiovascular: no edema, no gallop Abdomen: non tender, soft Neurologic/Psychiatric: alert, oriented x 3 Laboratory Results Last 24 Hours Test 09/01/16 08:45 Sodium Level 137 mmol/L Potassium Level 3.4 mmol/L Chloride Level 98 mmol/L Carbon Dioxide Level 30 mmol/L Anion Gap 9.0 mmol/L Blood Urea Nitrogen 21 mg/dl Creatinine 1.50 mg/dl Est Creatinine Clear Calc Drug Dose 40.5 ml/min Estimated GFR () 40.5 Estimated GFR (Non- 34.9 BUN/Creatinine Ratio 14.3 Random Glucose 153 mg/dl Calcium Level 9.2 mg/dl Assessment and Plan A 70-year-old white female with the problems as below: 1. Severe lower back pain, ambulatory dysfunction and possible multiple sacral and pelvic fractures. 2. Hypokalemia. 3. Chronic kidney disease stage 3, stable, in baseline. 4. Accelerated hypertension. 5. Dyslipidemia. I agree patient cannot be sent home, which is not safe. She lives alone, has severe pain and has multiple sacral fractures. Therefore, we will keep her in the medical/surgical floor. Pain controlled with lidoderm and norco. Orthopedic consultation - no intervention at this time. We will continue home medication. Lidoderm patch and norco PRN pain. We will replace potassium. We will give hydralazine for accelerated hypertension. GI and DVT prophylaxis is covered. The patient is a full code.
[2016-09-01 15:00] VITALS: BP 138/85; PULSE 79; TEMP 36.3; O2SAT 91
[2016-09-01] MEDS ORDERED: POTASSIUM CHLORIDE 20 MEQ TABCR PO SCH (21:00)
[2016-09-01] MEDS: PRAVASTATIN SOD 20 MG TAB PO SCH (21:18)
[2016-09-01] MEDS: TRIAMTERENE/HCTZ 37.5/25MG TAB PO SCH (21:19)
[2016-09-01 23:30] VITALS: BP 133/74; PULSE 77; TEMP 36.5; O2SAT 94
[2016-09-02] MEDS: HYDROCODONE/ACETAMI 10/325 TAB PO PRN ×2 (00:14→11:20)
[2016-09-02 07:32] VITALS: BP 138/84; PULSE 93; TEMP 36.6; O2SAT 95
[2016-09-02] MEDS: ASPIRIN 325 MG ECTAB PO SCH (08:22)
[2016-09-02] MEDS: SENNA 8.6 MG TAB PO SCH (08:22)
[2016-09-02] MEDS: DULOXETINE HCL 20 MG CAP PO SCH (08:23)
[2016-09-02] MEDS: CALCIUM 600MG + VIT D 400 IU TAB PO SCH (08:23)
[2016-09-02] MEDS: HYDROXYCHLOROQUINE SULFATE 200 MG TAB PO SCH (08:23)
[2016-09-02] MEDS: LEFLUNOMIDE 10 MG TAB PO SCH (08:24)
[2016-09-02] MEDS: LIDODERM (LIDOCAINE) PATCH 5% TD SCH (08:25)
[2016-09-02 09:29] LABS: BASO % 0.2 %; BASO ABS # 0.01 K/uL (0-0.2); BUN/CREATININE RATIO 14.9 (10-20); CALCIUM 9.6 mg/dl (8.5-10.1); COMPLETE YES; CREATININE 1.4 mg/dl (0.60-1.20); EOS % 4.9 %; HEMATOCRIT 41.7 % (37-47); IG% 0.3 %; LYMPH % 15.7 %; LYMPH ABS # 0.96 K/uL (1.2-3.4); MEAN CELL VOLUME 83.9 fL (80-100); MEAN CORPUSCULAR HEMOGLOBIN 27.2 pg (25-34); MEAN CORPUSCULAR HGB CONC 32.4 g/dl (32-36); MONO % 10.5 %; NEUT % 68.4 %; PLATELET COUNT 157 K/uL (130-400); POTASSIUM 3.7 mmol/L (3.5-5.1); RED BLOOD COUNT 4.97 M/uL (4.2-5.4); WHITE BLOOD COUNT 6.11 K/uL (4.8-10.8)
[2016-09-02] MEDS: HEPARIN SOD 5000 UNIT/0.5 ML CARP SQ SCH (10:03)
--- NOTE | 2016-09-02 11:00 | Progress Note ---
Subjective Date of Service: September 02, 2016. Subjective Pt evaluation today including: conversation w/ patient, conversation w/ family , physical exam, chart review, lab review, review of studies, review of inpatient medication list States pain better controlled Reports nausea with breakfast this AM Awaiting rehab Problem List Medical Problems: (1) Acute back pain Status: Acute (2) Back pain Status: Acute (3) Contusion of multiple sites Status: Acute (4) Fall Status: Acute (5) Hypokalemia Status: Acute (6) Sacral fracture Status: Acute Review of Systems Constitutional: No chills, No fever Respiratory: No cough, No sputum, No wheezing Cardiac: No chest pain, No orthopnea Abdomen: + nausea, No constipation, No diarrhea, No pain, No vomiting Musculoskeletal: No joint pain, No muscle pain Female : No dysuria, No urinary frequency Objective Vital Signs Date Time Temp Pulse Resp B/P Pulse Ox O2 Delivery O2 Flow Rate FiO2 09/02/16 07:55 Room Air 09/02/16 07:32 36.6 93 18 138/84 95 Room Air 09/02/16 00:15 Room Air 09/01/16 23:30 36.5 77 16 133/74 94 Room Air 09/01/16 15:50 Room Air 09/01/16 15:00 36.3 79 18 138/85 91 Room Air 09/01/16 11:16 36.6 98 14 123/76 96 Room Air Physical Exam General Appearance: WD/WN, + mild distress Neck: supple, no adenopathy Respiratory/Chest: lungs clear, normal breath sounds Cardiovascular: no edema, no gallop Neurologic/Psychiatric: alert, + depressed affect Laboratory Results Last 24 Hours Test 09/02/16 08:37 White Blood Count 6.11 K/uL Red Blood Count 4.97 M/uL Hemoglobin 13.5 g/dL Hematocrit 41.7 % Mean Corpuscular Volume 83.9 fL Mean Corpuscular Hemoglobin 27.2 pg Mean Corpuscular Hemoglobin Concent 32.4 g/dl Platelet Count 157 K/uL Mean Platelet Volume 10.0 fL Neutrophils (%) (Auto) 68.4 % Lymphocytes (%) (Auto) 15.7 % Monocytes (%) (Auto) 10.5 % Eosinophils (%) (Auto) 4.9 % Basophils (%) (Auto) 0.2 % Neutrophils # (Auto) 4.18 K/uL Lymphocytes # (Auto) 0.96 K/uL Monocytes # (Auto) 0.64 K/uL Eosinophils # (Auto) 0.30 K/uL Basophils # (Auto) 0.01 K/uL RDW Standard Deviation 45.8 fL RDW Coefficient of Variation 15.0 % Immature Granulocyte % (Auto) 0.3 % Immature Granulocyte # (Auto) 0.02 K/uL Sodium Level 137 mmol/L Potassium Level 3.7 mmol/L Chloride Level 99 mmol/L Carbon Dioxide Level 34 mmol/L Anion Gap 4.0 mmol/L Blood Urea Nitrogen 21 mg/dl Creatinine 1.40 mg/dl Est Creatinine Clear Calc Drug Dose 43.4 ml/min Estimated GFR () 44.0 Estimated GFR (Non- 38.0 BUN/Creatinine Ratio 14.9 Random Glucose 118 mg/dl Calcium Level 9.6 mg/dl Assessment and Plan A 70-year-old white female with the problems as below: 1. Severe lower back pain, ambulatory dysfunction and possible multiple sacral and pelvic fractures. 2. Hypokalemia. 3. Chronic kidney disease stage 3, stable, in baseline. 4. Accelerated hypertension. 5. Dyslipidemia. Pt not safe to go home. She lives alone, has severe pain and has multiple sacral fractures. Therefore, we will keep her in the medical/surgical floor. Pain controlled with lidoderm and norco. Orthopedic consultation - no intervention at this time. We will continue home medication. Lidoderm patch and norco PRN pain. We will replace potassium. We will give hydralazine for accelerated hypertension. GI and DVT prophylaxis is covered. The patient is a full code.
[2016-09-02 15:04] VITALS: BP 134/81; PULSE 86; TEMP 36.6; O2SAT 97
[2016-09-02] MEDS ORDERED: LDDP5 TD (15:09)
[2016-09-02] MEDS ORDERED: HYDR-4079 PO (15:09)
[2016-09-02 15:10] VITALS: BP 134/81; PULSE 86; TEMP 36.6; O2SAT 97
--- NOTE | 2016-09-02 15:12 | Discharge Instructions ---
Discharge Instructions Date of Service September 02, 2016. Admission Reason for Admission: Sever Lbp With Multiple Sacral Fx Discharge Discharge Diagnosis / Problem: Fall, multiple sacral fx Discharge Goals Goal(s): Decrease discomfort, Improve function, Increase independence, Improve disease control, Learn about illness, Diagnostic testing, Prevent Disease Progression Activity Recommendations Activity Limitations: per Instructions/Follow-up section (supported weightbearing with walker) Shower/Bathe: no limitations . Instructions / Follow-Up Instructions / Follow-Up Patient to be discharged to [facility] for further rehab Please take norco 10 every 4 hrs as needed for pain, please also take lidoderm patch once daily for pain If worsening numbness, weakness, please return to ER Follow up with Melvi Rosales in 1-2 weeks Current Hospital Diet Patient's current hospital diet: AHA Diet (Heart Healthy) Discharge Diet Recommended Diet: AHA Diet (Heart Healthy) Pending Studies Studies pending at discharge: no Medical Emergencies . Who to Call and When: Medical Emergencies: If at any time you feel your situation is an emergency, please call 911 immediately. . Non-Emergent Contact Non-Emergency issues call your: Primary Care Provider Call Non-Emergent contact if: your pain is worsening . . "Provider Documentation" section prepared by Charles Higginbotham. . VTE Core Measure Inpt VTE Proph given/why not?: Unfractionated heparin SQ
--- NOTE | 2016-09-04 14:23 | Discharge Summary ---
Discharge Summary Date of Service September 04, 2016. Discharge Summary Admission Date: August 28, 2016 at 18:03 Discharge Date: September 02, 2016 Discharge Disposition: Home Principal Diagnosis: fall, deconditioning, multiple pelvic fractures Immunizations: Have You Had Influenza Vaccine: N/A History of Tetanus Vaccine?: Yes History of Pneumococcal: No History of Hepatitis B Vaccine: No Medication Reconciliation New Medications: Hydrocodone/Acetaminophen 10MG/325MG ([place] 10MG/325MG) Tab 1 TAB PO Q4 PRN for Pain, #30 TAB PRN PAIN Lidocaine (Lidocaine) 1 Patch Tdsy 1 PATCH TD QAM, #30 PATCH Continued Medications: Acetaminophen Tab (Tylenol) 325 Mg Tab 650 MG PO Q4H PRN for Mild Pain, TAB Aspirin Enteric Coated (Ecotrin Or Generic) 325 Mg Ectab 325 MG PO DAILY, TAB Calcium Carbonate-Cholecalcife (Calcium/Vitamin D) 1 Tab Tab 1 TAB PO DAILY Duloxetine HCl (Cymbalta) 20 Mg Cap 1 CAP PO DAILY for 30 Days Hydroxychloroquine Sulfate (Plaquenil) 200 Mg Tab 400 MG PO QAM, TAB Leflunomide (Arava) 20 Mg Tab 20 MG PO DAILY, TAB Potassium Ext Rel (Klor-Con) 20 Meq Tabcr 20 MEQ PO AMPM, TAB Pravastatin (Pravachol ) 20 Mg Tab 20 MG PO QPM, 0 Refills Prednisone Tab (Prednisone) 10 Mg Tab 15 MG PO QAM, TAB Sennosides (Senna) 8.6 Mg Cap 8.6 MG PO BID HOLD IF LOOSE STOOLS Triamterene/Hctz (Triamterene/Hctz 37.5-25MG) 1 Tab Tab 1 TAB PO QPM, TAB Discontinued Medications: Hydrocodone/Acetaminophen 5MG/325MG ([place] 5MG/325MG) Tab 1 TABLET PO Q4 PRN for Moderate Pain, TAB PRN PAIN Discharge Exam Review of Systems: Constitutional: No chills, No fever Respiratory: No cough, No sputum Cardiovascular: No chest pain, No orthopnea Abdomen: No nausea, No pain Musculoskeletal: + joint pain, + muscle pain Genitourinary - Female: No dysuria, No urinary frequency, No urinary urgency Neurologic: No paralysis, No weakness Physical Exam: General Appearance: WD/WN, + mild distress Neck: supple, no adenopathy Respiratory/Chest: lungs clear, normal breath sounds Cardiovascular: no edema, no gallop Abdomen / GI: non tender, soft Neurologic/Psychiatric: alert, oriented x 3 Hospital Course A 70-year-old white female with the problems as below: 1. Severe lower back pain, ambulatory dysfunction and possible multiple sacral and pelvic fractures. 2. Hypokalemia. 3. Chronic kidney disease stage 3, stable, in baseline. 4. Accelerated hypertension. 5. Dyslipidemia. Pt not safe to go home. She lives alone, has severe pain and has multiple sacral fractures per imaging. Pain controlled with lidoderm and norco. Orthopedic consultation - no intervention at this time. We will continue home medication. We will give hydralazine for accelerated hypertension. GI and DVT prophylaxis is covered. The patient is a full code. Discharge to [facility] Total Time Spent: Greater than 30 minutes This includes examination of the patient, discharge planning, medication reconciliation, and communication with other providers. Discharge Instructions Please refer to the electronic Patient Visit Report (Discharge Instructions) for additional information. Additional Copies To Svetlana Rosales C.R.N.P.
== END 2016-09-02 16:25 | DRG 552 ==
LOC: ENRESERVDT → ENRESERVTM → C.EDB 15:32 → C.MSN 18:03
PROVIDERS: ADMIT Hospitalist; ATTEND Hospitalist
DX: S32.058A Other fracture of fifth lumbar vertebra, initial encounter for closed fracture (principal); S32.82XA Multiple fractures of pelvis without disruption of pelvic ring, initial encounter for closed fracture; S32.10XA Unspecified fracture of sacrum, initial encounter for closed fracture; M06.9 Rheumatoid arthritis, unspecified; Z88.2 Allergy status to sulfonamides; N18.3 Chronic kidney disease, stage 3 (moderate); E78.5 Hyperlipidemia, unspecified; I12.9 Hypertensive chronic kidney disease with stage 1 through stage 4 chronic kidney disease, or unspecified chronic kidney disease; E87.6 Hypokalemia; Z86.718 Personal history of other venous thrombosis and embolism; Y92.019 Unspecified place in single-family (private) house as the place of occurrence of the external cause; W10.9XXA Fall (on) (from) unspecified stairs and steps, initial encounter; T14.8 Other injury of unspecified body region; Y92.009 Unspecified place in unspecified non-institutional (private) residence as the place of occurrence of the external cause; Z87.81 Personal history of (healed) traumatic fracture; Z79.82 Long term (current) use of aspirin; R19.7 Diarrhea, unspecified

== ENCOUNTER → 2016-10-10 | Outpatient (CLI) | payer BC ==
[~2016-10-10] MED LIST changes: -CYM20 PO; +DULO-24 PO; +HYDR-4079 PO; -HYDR-5688 PO; -OXYC-57 PO; -[UNRECOGNIZED DRUG - CODE] PO
--- NOTE | 2016-10-10 12:21 | DIAGNOSTIC IMAGING REPORT ---
ULTRASOUND BILATERAL LOWER EXTREMITY VENOUS CLINICAL HISTORY: Lower extremity cellulitis and edema. COMPARISON STUDY: Right lower extremity venous ultrasound dated 11/21/2007. TECHNIQUE: Real-time, grayscale, and color Doppler sonography of the deep veins of the right and left lower extremity was performed from the inguinal crease to the calf. Compression and augmentation were utilized. FINDINGS: There is no sonographic evidence of deep venous thrombosis identified in the right or left lower extremity. The common femoral, superficial femoral, and popliteal veins are patent and normally compressible bilaterally. The greater saphenous vein and the profunda femoris vein at the junction with the common femoral vein are clear in both legs. The visualized calf veins are patent bilaterally. IMPRESSION: There is no sonographic evidence of deep venous thrombosis identified in the right or left lower extremity. Electronically signed by: Jf Bronson M.D. 10/10/2016 12:20 PM Dictated Date/Time: 10/10/2016 12:20 PM
== END | disposition home or self-care (01) ==
LOC: C.ULTR 11:13
PROVIDERS: ATTEND Nurse Practitioner Family
DX: L03.90 Cellulitis, unspecified (principal); R60.0 Localized edema

== ENCOUNTER → 2017-07-11 | Outpatient (CLI) | payer BC ==
[~2017-07-11] MED LIST changes: +ACET-1693 PO; -ACET325T96 PO
[2017-07-11 10:50] LABS: BASO % 0.3 %; BASO ABS # 0.02 K/uL (0-0.2); EOS % 3.5 %; EOS ABS # 0.27 K/uL (0-0.5); HEMATOCRIT 36.8 % (37-47); HEMOGLOBIN 11.6 g/dL (12.0-16.0); IG# 0.02 K/uL (0.00-0.02); LYMPH % 14.1 %; LYMPH ABS # 1.09 K/uL (1.2-3.4); MEAN CELL VOLUME 82.3 fL (80-100); MEAN CORPUSCULAR HGB CONC 31.5 g/dl (32-36); MEAN PLATELET VOLUME 9.3 fL (7.4-10.4); MONO % 6.7 %; MONO ABS # 0.52 K/uL (0.11-0.59); NEUT % 75.1 %; NEUT ABS # 5.81 K/uL (1.4-6.5); PLATELET COUNT 172 K/uL (130-400); RED CELL DISTRIBUTION WIDTH CV 15.4 % (11.5-14.5); RED CELL DISTRIBUTION WIDTH SD 46.4 fL (36.4-46.3); WHITE BLOOD COUNT 7.73 K/uL (4.8-10.8)
== END | disposition home or self-care (01) ==
LOC: C.LAB1850 09:32
PROVIDERS: ATTEND Family Medicine
DX: M79.89 Other specified soft tissue disorders (principal)

== ENCOUNTER 2017-09-01 09:38 | Inpatient (IN) | payer BC, OTHER ==
[~2017-09-01] VITALS: Ht 165.1 cm; Wt 115.1 kg
[~2017-09-01 09:38] MED LIST changes: +POTA-639 PO; -POTA20TA16 PO
[2017-09-01] MEDS ORDERED: SODIUM CHLORIDE 0.9% 1000ML 500 ML IV ONE (10:38)
[2017-09-01] MEDS ORDERED: PIPERACILLIN/TAZOBACTAM 4.5 GM/100ML D5W IV STA (10:38)
[2017-09-01] MEDS ORDERED: ALBUT/IPRATROP 3MG/0.5MG NEB 3 ML VIAL INH STA (10:45)
[2017-09-01] MEDS ORDERED: SODIUM CHLORIDE 0.9% 1000ML 1,000 ML IV STA (10:45)
[2017-09-01] MEDS ORDERED: ACETAMINOPHEN 325 MG TAB PO ONE (10:45)
[2017-09-01] MEDS ORDERED: LEVAQUIN 750MG / 150ML D5W IV STA (10:45)
--- NOTE | 2017-09-01 11:16 | DIAGNOSTIC IMAGING REPORT ---
RIGHT ANKLE 3 VIEWS CLINICAL HISTORY: Right ankle injury. FINDINGS: 3 portable views the right ankle are correlated with radiographs of the right tibia and fibula dated 12/01/2007. The skeletal structures are osteopenic. No acute fracture is seen. There is chronic posttraumatic deformity of the distal fibular shaft. Benign-appearing periostitis is noted along the distal tibial shaft. The ankle mortise is intact. There is a joint effusion, and significant soft tissue edema is present throughout the imaged right lower extremity. There is atherosclerotic calcification of the regional arteries. IMPRESSION: 1. Diffuse soft tissue edema with no radiographic evidence of right ankle fracture. 2. Osteopenia and chronic changes as above. Electronically signed by: Jf Bronson M.D. 09/01/2017 11:15 AM Dictated Date/Time: 09/01/2017 11:13 AM
[2017-09-01 11:29] LABS: HEMATOCRIT 32.1 % (37-47); HEMOGLOBIN 10.5 g/dL (12.0-16.0); MEAN CELL VOLUME 77.2 fL (80-100); MEAN CORPUSCULAR HEMOGLOBIN 25.2 pg (25-34); MEAN CORPUSCULAR HGB CONC 32.7 g/dl (32-36); MEAN PLATELET VOLUME 9.4 fL (7.4-10.4); PLATELET COUNT 210 K/uL (130-400); RED CELL DISTRIBUTION WIDTH SD 42.7 fL (36.4-46.3); WHITE BLOOD COUNT 14.24 K/uL (4.8-10.8)
[2017-09-01 11:37] LABS: INR 1.1 (0.9-1.1); PTT PATIENT 27.7 SECONDS (21.0-31.0)
--- NOTE | 2017-09-01 11:37 | DIAGNOSTIC IMAGING REPORT ---
CHEST ONE VIEW PORTABLE CLINICAL HISTORY: Sepsis COMPARISON STUDY: 04/06/2009 FINDINGS: The heart is mildly enlarged. There are left lower lobe airspace opacities. There is blunting of the left lateral costophrenic angle. This may indicate a small left pleural effusion. There are right basilar atelectatic changes.[ IMPRESSION: 1. Mild cardiomegaly 2. Left lower lobe airspace opacity suspicious for a pneumonia. Possible small left pleural effusion. Radiographic follow-up is recommended. Electronically signed by: Rafael Reyna M.D. 09/01/2017 11:36 AM Dictated Date/Time: 09/01/2017 11:35 AM
[2017-09-01 11:47] LABS: CREATININE 2.04 mg/dl (0.60-1.20)
[2017-09-01] MEDS ORDERED: POTASSIUM CHLORIDE 10 MEQ TABCR PO STA (11:56)
[2017-09-01] MEDS ORDERED: POTASSIUM CHLR 10 MEQ / WTR 100 ML IV STA (11:56)
[2017-09-01 12:07] LABS: BASO % 0.1 %; BASO ABS # 0.01 K/uL (0-0.2); EOS % 0.1 %; EOS ABS # 0.01 K/uL (0-0.5); IG# 0.09 K/uL (0.00-0.02); LYMPH % 2.3 %; LYMPH ABS # 0.33 K/uL (1.2-3.4); MONO % 4.4 %; MONO ABS # 0.63 K/uL (0.11-0.59); NEUT % 92.5 %; NEUT ABS # 13.17 K/uL (1.4-6.5)
--- NOTE | 2017-09-01 12:19 | DIAGNOSTIC IMAGING REPORT ---
ULTRASOUND VENOUS DOPPLER LWR EXT BILA CLINICAL HISTORY: Deep venous thrombosis. Leg swelling. COMPARISON STUDY: 10/10/2016 FINDINGS: Real-time and color flow Doppler imaging were performed. Flow was seen within the femoral, popliteal and calf veins with no intraluminal thrombus demonstrated. The saphenous vein is patent. Evaluation the calf veins was somewhat limited due to the patient's body habitus and edema. IMPRESSION: No evidence of lower extremity DVT. Electronically signed by: Rafael Reyna M.D. 09/01/2017 12:18 PM Dictated Date/Time: 09/01/2017 12:16 PM
[2017-09-01 12:28] LABS: CALCIUM 8.7 mg/dl (8.5-10.1); POTASSIUM 2.6 mmol/L (3.5-5.1); TOTAL PROTEIN 6.6 gm/dl (6.4-8.2)
[2017-09-01] MEDS ORDERED: ALUMINUM/MAGNESIUM/SIMETH (MAALOX MAX) 30 ML UDC PO PRN (12:45)
[2017-09-01] MEDS ORDERED: MAGNESIUM HYDROXIDE SUSP 30 ML UDC PO PRN (12:45)
[2017-09-01] MEDS ORDERED: ONDANSETRON INJ 2 MG/ML 2 ML VIAL IV PRN (12:45)
[2017-09-01] MEDS ORDERED: POLYETHYLENE (MIRALAX) 17 GM PACK PO PRN (12:45)
--- NOTE | 2017-09-01 12:50 | EMERGENCY ROOM VISIT NOTE ---
History Report prepared by Figueroa: Elías Johnston Under the Supervision of: Dr. Lori Goldstein M.D. First contact with patient: 10:27 Chief Complaint: OTHER COMPLAINT Stated Complaint: ILLNESS History of Present Illness The patient is a 71 year old female who presents to the Emergency Room by EMS with complaints of constant generalized illness beginning a few days ago. Her symptoms include subjective fevers, headache, runny nose, sore throat, non- productive cough, SOB, generalized weakness, and fatigue. She has a history of RA. The patient notes that she had two days of diarrhea last week. She took Pepto Bismol which resolved her diarrhea. Her diarrhea returned today. The patient denies vomiting. She reports that she fell while transferring to a lift chair yesterday. She feels that she has been having a flare up of RA since yesterday. The patient notes that she currently has cellulitis of her lower legs. Source of History: patient Onset: A few days ago Position: other (generalized) Quality: other (illness) Timing: constant Associated Symptoms: + fevers (subjective), + headache, + sorethroat, + cough (non-productive), + SOB, + fatigue, + weakness (generalized), No vomiting Note: Positive: runny nose. Review of Systems See HPI for pertinent positives & negatives. A total of 10 systems reviewed and were otherwise negative. Past Medical & Surgical Medical Problems: (1) Advance care planning (2) Ambulatory dysfunction (3) DVT prophylaxis (4) HTN (hypertension) (5) Hypokalemia (6) Pneumonia (7) Rheumatoid arthritis (8) sever LBP, with multipel sacral fx Family History No significant family history Social History Smoking Status: Never Smoker Marital Status: single Housing Status: lives alone Occupation Status: retired Current/Historical Medications Scheduled Aspirin Enteric Coated (Ecotrin Or Generic), 325 MG PO DAILY Hydroxychloroquine Sulfate (Plaquenil), 400 MG PO QAM Leflunomide (Arava), 20 MG PO DAILY Potassium Ext Rel (Klor-Con), 20 MEQ PO AMPM Pravastatin (Pravachol ), 20 MG PO QPM Prednisone Tab (Prednisone), 15 MG PO QAM Triamterene/Hctz (Triamterene/Hctz 37.5-25MG), 1 TAB PO QPM Allergies Coded Allergies: Oxycodone (Unverified Allergy, Unknown, NAUSEA, 09/01/17) Sulfa Antibiotics (Unverified Allergy, Unknown, RASH, 09/01/17) Physical Exam Vital Signs Date Time Temp Pulse Resp B/P (MAP) Pulse Ox O2 Delivery O2 Flow Rate FiO2 09/01/17 12:28 94 99/54 95 Nasal Cannula 3.0 09/01/17 11:12 104 131/73 97 Nebulizer 09/01/17 10:55 95 Nasal Cannula 3.0 09/01/17 10:22 95 Nasal Cannula 2.0 09/01/17 10:21 37.5 115 32 148/70 86 Room Air 09/01/17 09:49 112 Physical Exam Vital signs reviewed. General: Chronically ill-appearing female, disheveled, in no significant distress. HEENT: No scleral icterus, PERRLA, neck supple. Atraumatic. Cardiovascular: Tachycardic rate and regular rhythm, no extra sounds. Pulmonary: Rhonchi bilaterally. Slightly increased work of breathing on nasal cannula oxygen. Abdomen: Obese, soft, nontender, nondistended, positive bowel sounds. Musculoskeletal: Atraumatic. 3+ pitting edema to the bilateral lower extremities with chronic venous status changes bilaterally. Erythema right greater than left. Tender to palpation or movement of the right ankle. Neurologic: Patient awake alert and oriented x 3 Skin: Warm, dry, questionably chronic erythema with scaling to the distal bilateral lower extremities. Medical Decision & Procedures ER Provider Diagnostic Interpretation: Radiology results as stated below per my review and radiologist interpretation: CHEST ONE VIEW PORTABLE FINDINGS: The heart is mildly enlarged. There are left lower lobe airspace opacities. There is blunting of the left lateral costophrenic angle. This may indicate a small left pleural effusion. There are right basilar atelectatic changes.[ IMPRESSION: 1. Mild cardiomegaly 2. Left lower lobe airspace opacity suspicious for a pneumonia. Possible small left pleural effusion. Radiographic follow-up is recommended. Electronically signed by: Rafael Reyna M.D. 09/01/2017 11:36 AM RIGHT ANKLE 3 VIEWS FINDINGS: 3 portable views the right ankle are correlated with radiographs of the right tibia and fibula dated 12/01/2007. The skeletal structures are osteopenic. No acute fracture is seen. There is chronic posttraumatic deformity of the distal fibular shaft. Benign-appearing periostitis is noted along the distal tibial shaft. The ankle mortise is intact. There is a joint effusion, and significant soft tissue edema is present throughout the imaged right lower extremity. There is atherosclerotic calcification of the regional arteries. IMPRESSION: 1. Diffuse soft tissue edema with no radiographic evidence of right ankle fracture. 2. Osteopenia and chronic changes as above. Electronically signed by: Jf Bronson M.D. 09/01/2017 11:15 AM ULTRASOUND VENOUS DOPPLER LWR EXT BILA FINDINGS: Real-time and color flow Doppler imaging were performed. Flow was seen within the femoral, popliteal and calf veins with no intraluminal thrombus demonstrated. The saphenous vein is patent. Evaluation the calf veins was somewhat limited due to the patient's body habitus and edema. IMPRESSION: No evidence of lower extremity DVT. Electronically signed by: Rafael Reyna M.D. 09/01/2017 12:18 PM Laboratory Results Test 09/01/17 10:55 09/01/17 11:00 Toxic Vacuolation 1+ Prothrombin Time 11.3 SECONDS (9.0-12.0) Prothromb Time International Ratio 1.1 (0.9-1.1) Activated Partial Thromboplast Time 27.7 SECONDS (21.0-31.0) Partial Thromboplastin Ratio 1.1 Total Bilirubin 1.2 mg/dl (0.2-1) Aspartate Amino Transf (AST/SGOT) 90 U/L (15-37) Alanine Aminotransferase (ALT/SGPT) 53 U/L (12-78) Alkaline Phosphatase 144 U/L (45-117) Total Protein 6.6 gm/dl (6.4-8.2) Albumin 2.0 gm/dl (3.4-5.0) Globulin 4.6 gm/dl (2.5-4.0) Albumin/Globulin Ratio 0.4 (0.9-2) Bedside Lactic Acid Venous 1.56 mmol/L (0.90-1.70) Date/Time Source Procedure Growth Status 09/01/17 12:15 Stool C.difficile Toxin B Gene (PCR) - Final No C. difficile toxin B gene detected Complete Laboratory results per my review. Medications Administered Medications (Trade) Dose Ordered Sig/Allison Route Start Time Stop Time Status Last Admin Dose Admin Sodium Chloride 500 ml @ 999 mls/hr Q31M ONCE IV 09/01/17 10:38 5/15/18 11:08 DC 09/01/17 11:08 999 MLS/HR Piperacillin Sod/ Tazobactam Sod (Zosyn Iv) 4.5 gm ONE STAT IV 09/01/17 10:38 09/01/17 10:40 DC 09/01/17 11:11 4.5 GM Acetaminophen (Tylenol Tab) 650 mg ONE ONCE PO 09/01/17 10:45 09/01/17 10:46 DC 09/01/17 11:08 650 MG Sodium Chloride 1,000 ml @ 150 mls/hr Q6H40M STAT IV 09/01/17 10:45 09/01/17 15:02 DC 09/01/17 12:38 150 MLS/HR Levofloxacin (Levaquin / D5W) 750 mg NOW STAT IV 09/01/17 10:45 09/01/17 10:48 DC 09/01/17 11:36 750 MG Albuterol/ Ipratropium (Duoneb) 3 ml NOW STAT INH 09/01/17 10:45 09/01/17 10:48 DC 09/01/17 11:10 3 ML Potassium Chloride 100 ml @ 100 mls/hr NOW STAT IV 09/01/17 11:56 09/01/17 12:55 DC 09/01/17 12:38 100 MLS/HR Potassium Chloride (Klor-Con M10) 40 meq NOW STAT PO 09/01/17 11:56 09/01/17 11:57 DC 09/01/17 12:38 40 MEQ Magnesium Sulfate 100 ml @ 100 mls/hr Q1H IV 09/01/17 12:41 09/01/17 14:40 DC 09/01/17 14:03 100 MLS/HR ECG Per My Interpretation Indication: SOB/dyspnea Rate (beats per minute): 108 Rhythm: sinus tachycardia Findings: PAC, Q waves (Inferior), other (QTC 509. ) ED Course 1044: Past medical records reviewed. The patient was evaluated in room A11B. A complete history and physical examination was performed. 1038: Ordered Zosyn 4.5 gm IV, Sodium Chloride 500 ml @ 999 mls/hr IV. 1045: Ordered DuoNeb 3 mL INH, Levaquin / D5w 750 mg IV, Sodium Chloride 1000 ml @ 150 mls/hr IV, Tylenol Tab 650 mg PO. 1156: Ordered Klor-Com M10 40 meq PO. 1225: Upon reevaluation, the patient is resting comfortably. I discussed laboratory and radiographic results with her. She verbalized agreement of the treatment plan. The patient will be evaluated for further management and care.; Medical Decision Differential diagnosis: Influenza, other viral illness, pneumonia, urinary tract infection, metabolic abnormality, medication effect, cellulitis, meningitis, intra-abdominal source. This patient was evaluated and appeared to be in some discomfort. The patient is chronically ill appearing and is complaining of diarrhea. She was hydrated with normal saline solution. Chest x-ray was obtained and reveals evidence of a left lower lung field pneumonia. This would be consistent with the patient's low-grade fever, cough, oxygen requirement. She is complaining of severe pain in the right lower extremity, ankle x-ray was obtained and is negative for acute fracture. Ultrasound is negative for DVT. Laboratory work reveals a leukocytosis, marked hypokalemia at 2.6 and acute on chronic renal insufficiency. The patient was given IV hydration, blood cultures and lactate were performed. Patient was medicated with IV Zosyn and Levaquin. She was given a DuoNeb treatment and p.o. Tylenol for her fever. Given the findings, the oxygen requirement the need for potassium repletion and IV antibiotics, the patient will be evaluated by the hospitalist service for further management. Medication Reconcilliation Current Medication List: was personally reviewed by me Blood Pressure Screening Patient's blood pressure: Normal blood pressure Blood pressure disposition: Did not require urgent referral Consults Time Called: 1215 Consulting Physician: Dr. Chow - [facility] Hospitalist Returned Call: 1225 Dr. Chow was made aware of the patient's case. The patient will be evaluated for further management. Impression Primary Impression: Left lower lobe pneumonia Additional Impressions: Hypoxemia Hypokalemia Diarrhea Scribe Attestation The scribe's documentation has been prepared under my direction and personally reviewed by me in its entirety. I confirm that the note above accurately reflects all work, treatment, procedures, and medical decision making performed by me. Departure Information Dispostion Being Evaluated By Hospitalist Referrals Svetlana Rosales, C.R.N.P. (PCP) Patient Instructions My [facility] Problem Qualifiers
[2017-09-01] MEDS ORDERED: VANCOMYCIN CONSULT ACTIVE PRN (13:00)
--- NOTE | 2017-09-01 13:03 | History and Physical ---
History & Physical Date & Time of Service: September 01, 2017 at 12:31 Chief Complaint: Illness Primary Care Physician: Svetlana Rosales C.R.N.P. History of Present Illness Source: patient, hospital records, other 71 y/o F Hx RA, unstable gait, HTN, HPL, CKD III, morbid obesity - history of DVT. She presents with a litany of complaints including fatigue, cough, congestion, subjective fever. She also states she had diarrhea 2 days prior which has resolved. The pt completed a 2 week course of a Cephalosporin for LLE cellulitis a few days ago, which she states was ineffective. She has increasing pain and swelling in her L ankle which she believes is a flare of her RA. She denies CP, denies nausea/vomiting or decreased intake, denies dysuria. Initial labs obtained in the ER are notable for anemia, hypokalemia, hypomagnesemia and PRINCESS. An initial CXR suggests a LLL PNM. Past Medical/Surgical History 1) RA 2) HTN 3) HPL 4) Chronic ambulatory dysfunction - needs assistance and a walker 5) RA deformities of lower extremities 6) Morbid obesity 7) History of DVT 8) CKD III Family History No significant family history Noncontributory to current complaint Social History Smoking Status: Never Smoker Marital Status: single Occupational Status: retired Immunizations History of Influenza Vaccine: N/A History of Tetanus Vaccine?: Yes History of Pneumococcal: No History of Hepatitis B Vaccine: No Allergies Coded Allergies: Oxycodone (Unverified Allergy, Unknown, NAUSEA, 09/01/17) Sulfa Antibiotics (Unverified Allergy, Unknown, RASH, 09/01/17) Home Medications Scheduled Aspirin Enteric Coated (Ecotrin Or Generic), 325 MG PO DAILY Hydroxychloroquine Sulfate (Plaquenil), 400 MG PO QAM Leflunomide (Arava), 20 MG PO DAILY Potassium Ext Rel (Klor-Con), 20 MEQ PO AMPM Pravastatin (Pravachol ), 20 MG PO QPM Prednisone Tab (Prednisone), 15 MG PO QAM Triamterene/Hctz (Triamterene/Hctz 37.5-25MG), 1 TAB PO QPM Review of Systems Constitutional: + fever (Subjective - unconfirmed), + weakness, + fatigue Eyes: No worsening of vision ENT: No hearing loss, No nasal symptoms Respiratory: + cough, + shortness of breath, No sputum, No wheezing Cardiovascular: No chest pain, No orthopnea Abdomen: + diarrhea (resolved), No pain, No nausea, No vomiting Musculoskeletal: No joint pain Genitourinary - Female: No dysuria, No urinary frequency, No urinary urgency Neurologic: + weakness, + balance problems (chronic ), No memory loss Endocrine: + fatigue Hematologic / Lymphatic: No abnormal bleeding/bruising Integumentary: + rash (LE cellulitis) Allergic / Immunologic: No environmental allergies Physical Exam Vital Signs Date Time Temp Pulse Resp B/P (MAP) Pulse Ox O2 Delivery O2 Flow Rate FiO2 09/01/17 11:12 104 131/73 97 Nebulizer 09/01/17 10:55 95 Nasal Cannula 3.0 09/01/17 10:22 95 Nasal Cannula 2.0 09/01/17 10:21 37.5 115 32 148/70 86 Room Air 09/01/17 09:49 112 General Appearance: WD/WN, no apparent distress Head: normocephalic Eyes: normal inspection ENT: normal ENT inspection, pharynx normal Neck: supple, no JVD Respiratory/Chest: chest non-tender, + pertinent finding (Crackles are audible in the L base) Cardiovascular: regular rate, rhythm, no JVD Abdomen/GI: normal bowel sounds, non tender, soft Back: normal inspection, no CVA tenderness Extremities/Musculoskelatal: + pertinent finding (BL edema - erythema BL - cellulitis on R below knee and above ankle - likely candidiasis as well - RA deformaties present) 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, no motor/sensory deficits, alert Skin: + pertinent finding (Lower ext cellulitis as above - multiple areas of actinic keratosis and other moles ) Diagnostics Laboratory Results Results Past 24 Hours Test 09/01/17 10:55 09/01/17 11:00 09/01/17 12:28 Range/Units White Blood Count 14.24 4.8-10.8 K/uL Red Blood Count 4.16 4.2-5.4 M/uL Hemoglobin 10.5 12.0-16.0 g/dL Hematocrit 32.1 37-47 % Mean Corpuscular Volume 77.2 80-100 fL Mean Corpuscular Hemoglobin 25.2 25-34 pg Mean Corpuscular Hemoglobin Concent 32.7 32-36 g/dl Platelet Count 210 130-400 K/uL Mean Platelet Volume 9.4 7.4-10.4 fL Neutrophils (%) (Auto) 92.5 % Lymphocytes (%) (Auto) 2.3 % Monocytes (%) (Auto) 4.4 % Eosinophils (%) (Auto) 0.1 % Basophils (%) (Auto) 0.1 % Neutrophils # (Auto) 13.17 1.4-6.5 K/uL Lymphocytes # (Auto) 0.33 1.2-3.4 K/uL Monocytes # (Auto) 0.63 0.11-0.59 K/uL Eosinophils # (Auto) 0.01 0-0.5 K/uL Basophils # (Auto) 0.01 0-0.2 K/uL RDW Standard Deviation 42.7 36.4-46.3 fL RDW Coefficient of Variation 15.0 11.5-14.5 % Immature Granulocyte % (Auto) 0.6 % Immature Granulocyte # (Auto) 0.09 0.00-0.02 K/uL Toxic Granulation 2+ Toxic Vacuolation 1+ Prothrombin Time 11.3 9.0-12.0 SECONDS Prothromb Time International Ratio 1.1 0.9-1.1 Activated Partial Thromboplast Time 27.7 21.0-31.0 SECONDS Partial Thromboplastin Ratio 1.1 Sodium Level 137 136-145 mmol/L Potassium Level 2.6 3.5-5.1 mmol/L Chloride Level 102 98-107 mmol/L Carbon Dioxide Level 27 21-32 mmol/L Anion Gap 8.0 3-11 mmol/L Blood Urea Nitrogen 32 7-18 mg/dl Creatinine 2.04 0.60-1.20 mg/dl Est Creatinine Clear Calc Drug Dose 32.0 ml/min Estimated GFR () 27.7 Estimated GFR (Non- 23.9 BUN/Creatinine Ratio 15.7 10-20 Random Glucose 100 70-99 mg/dl Calcium Level 8.7 8.5-10.1 mg/dl Magnesium Level 1.6 1.8-2.4 mg/dl Total Bilirubin 1.2 0.2-1 mg/dl Aspartate Amino Transf (AST/SGOT) 90 15-37 U/L Alanine Aminotransferase (ALT/SGPT) 53 12-78 U/L Alkaline Phosphatase 144 45-117 U/L Total Protein 6.6 6.4-8.2 gm/dl Albumin 2.0 3.4-5.0 gm/dl Globulin 4.6 2.5-4.0 gm/dl Albumin/Globulin Ratio 0.4 0.9-2 Bedside Lactic Acid Venous 1.56 0.90-1.70 mmol/L Microbiology Results 09/01/17 Blood Culture, Received Pending 09/01/17 Blood Culture, Received Pending 09/01/17 C.difficile Toxin B Gene (PCR), Received Pending 09/01/17 WBC Smear, Received Pending 09/01/17 Shiga Toxin Test, Received Pending 09/01/17 Stool Culture, Received Pending Diagnostic Radiology CXR: 1. Mild cardiomegaly 2. Left lower lobe airspace opacity suspicious for a pneumonia. Possible small left pleural effusion. Radiographic follow-up is recommended. EKG Sinus tach Impression Assessment and Plan 71 y/o F Hx RA, unstable gait, HTN, HPL, CKD III, morbid obesity - history of DVT. She presents with a litany of complaints including fatigue, cough, congestion, subjective fever. She also states she had diarrhea 2 days prior which has resolved. The pt completed a 2 week course of a Cephalosporin for LLE cellulitis a few days ago, which she states was ineffective. She has increasing pain and swelling in her L ankle which she believes is a flare of her RA. She denies CP, denies nausea/vomiting or decreased intake, denies dysuria. Initial labs obtained in the ER are notable for anemia, hypokalemia, hypomagnesemia and PRINCESS. An initial CXR suggests a LLL PNM. 1) PNM - placed on Levaquin and PRN nebs - has not required 02. 2) LLE cellulitis - Placed on Vanc which should be adequate coverage with the above Levaquin. There appears to be superinfection with yeast so that we will apply Nystatin to the area as well. 3) PRINCESS - acute on chronic insufficiency - presumed prerenal - will provide IVF, hold diuretics and recheck BMP AM. 4) Hypokalemia, hypomagnesemia - repleted - repeat BMP pending 5) RA flare - we have increased her Prednisone dose which should serve as stress dosing in context of infection - she does state that she normally treats flares by increasing her steroid dose She is generally very week and we will consult PT/OT to avoid further deconditioning 6) Anemia - Hb appears to be declining as does her MCV raising concern for a slow bleed or iron deficiency - we will guaiac her stools and check iron studies. 7) HTN, HPL - Cont Pravastatin - HCTZ/Triamterene held due to PRINCESS and electrolyte abnorms - will sub PRN Hydralazine. Full code SCDs only until GI blood loss ruled out - should be converted to Heparin AM if possible a she is at risk of DVT Total time for this admit including review of labs, meds, imaging, records - discussion with pt and ER attending - 38 min Resuscitation Status VTE Prophylaxis Will order VTE Prophylaxis: Yes
[2017-09-01 13:04] VITALS: O2SAT 95; Ht 165.1 cm; Wt 115.1 kg
[2017-09-01] MEDS: MAGNESIUM SULFATE 1GM / D5W 100 ML IV SCH ×2 (13:41→14:03)
[2017-09-01] MEDS ORDERED: LEVOFLOXACIN CONSULT ACTIVE PRN (13:45)
[2017-09-01] MEDS ORDERED: VANCOMYCIN IV 2,750 MG in SODIUM CHLORIDE 0.9% 500ML 500 ML IV ONE (13:45)
--- NOTE | 2017-09-01 14:08 | Pharmacy Progress Note ---
Pharmacy Abx Initial Consult Date of Service September 01, 2017. Pharmacy Dosing Scope Date of Consult: 09/01/17 Consultation requested by: Dr. Chow Pharmacy is consulted to initiate vancomycin and Levaquin IV dosing therapy, order appropriate labs and adjust drug dose/frequency. Subjective The patient is a 71 year old female admitted on 09/01/17 Objective Height (Feet): 5 Height (Inches): 5.00 Weight (Kilograms): 115.100 Vital Signs (Past 12Hrs) Vital Signs Past 12 Hours Date Time Temp Pulse Resp B/P (MAP) Pulse Ox O2 Delivery O2 Flow Rate FiO2 09/01/17 13:04 95 Nasal Cannula 3.0 09/01/17 12:59 93 09/01/17 12:28 94 99/54 95 Nasal Cannula 3.0 09/01/17 11:12 104 131/73 97 Nebulizer 09/01/17 10:55 95 Nasal Cannula 3.0 09/01/17 10:22 95 Nasal Cannula 2.0 09/01/17 10:21 37.5 115 32 148/70 86 Room Air 09/01/17 09:49 112 Lab Results (24Hrs) Laboratory Tests (24 Hours) Test 09/01/17 10:55 White Blood Count 14.24 K/uL (4.8-10.8) H Red Blood Count 4.16 M/uL (4.2-5.4) L Hemoglobin 10.5 g/dL (12.0-16.0) L Hematocrit 32.1 % (37-47) L Mean Corpuscular Volume 77.2 fL (80-100) L Mean Corpuscular Hemoglobin 25.2 pg (25-34) Mean Corpuscular Hemoglobin Concent 32.7 g/dl (32-36) Platelet Count 210 K/uL (130-400) Mean Platelet Volume 9.4 fL (7.4-10.4) Neutrophils (%) (Auto) 92.5 % Lymphocytes (%) (Auto) 2.3 % Monocytes (%) (Auto) 4.4 % Eosinophils (%) (Auto) 0.1 % Basophils (%) (Auto) 0.1 % Neutrophils # (Auto) 13.17 K/uL (1.4-6.5) H Lymphocytes # (Auto) 0.33 K/uL (1.2-3.4) L Monocytes # (Auto) 0.63 K/uL (0.11-0.59) H Eosinophils # (Auto) 0.01 K/uL (0-0.5) Basophils # (Auto) 0.01 K/uL (0-0.2) Micro Results Date/Time Source Procedure Growth Status 09/01/17 10:55 Blood Blood Culture Pending Received 09/01/17 10:47 Blood Blood Culture Pending Received 09/01/17 12:15 Stool C.difficile Toxin B Gene (PCR) Pending Received 09/01/17 12:15 Stool WBC Smear Pending Received 09/01/17 12:15 Stool Shiga Toxin Test Pending Received 09/01/17 12:15 Stool Stool Culture Pending Received Risk Factors for Resistance * Immunocompromised (chronic steroid therapy, chemotherapy, immunomodulators) Assessment & Plan Assessment 71 year old female admitted for LLE cellulitis, pneumonia, PRINCESS. Pertinent PMH includes: RA, CKD Stage III Plan Vancomycin IV * Est PK parameters using est CrCl 32 mL/min: Vd 0.54 L/kg, Jose 0.031 hr-1, t1/ 2 22 hrs <- will use these instead of baseline CrCl parameters since dosing off of baseline would require a dose ~0800 tomorrow and want to give time to AM pharmacist to evaluate SCr prior to the next dose being given * Loading dose: 2750 mg (24 mg/kg) * Maintenance dose: 1250 mg IV (10.9 mg/kg) every 24 hours * Goal trough level : 15 to 20 mcg/mL * Trough level not ordered at this time as I expect dose may need adjusted tomorrow if SCr improves. Will need to be ordered prior to 3rd or 4th dose, slightly earlier than steady state to evaluate for accumulation. * A less than traditional dose and/or extended dosing interval has/have been selected due to likelihood of drug accumulation in obese patient/patient with h/ o CKD. Levaquin * 750 mg IV q48h for pneumonia and CrCl 20-49 Pharmacy will continue to follow and will adjust dose/frequency as necessary. Thank you.
[2017-09-01 15:02] VITALS: BP 104/62; PULSE 89; TEMP 36.7; O2SAT 94
[2017-09-01 15:15] VITALS: BP 122/66; PULSE 86; TEMP 36.5; O2SAT 99
[2017-09-01] MEDS: POTASSIUM CHLR 10 MEQ / WTR 100 ML IV SCH ×2 (16:05→17:11)
[2017-09-01] MEDS: NYSTATIN OINT 15 GM TUBE EXT SCH ×2 (16:13→20:43)
[2017-09-01] MEDS: D5NSS + 20MEQ KCL 1,000 ML IV SCH (16:13)
[2017-09-01] MEDS ORDERED: MAGNESIUM SULFATE 1GM / D5W 100 ML IV STA (19:04)
[2017-09-01] MEDS: PRAVASTATIN SOD 20 MG TAB PO SCH (20:43)
[2017-09-01 21:25] LABS: CALCIUM 8.6 mg/dl (8.5-10.1); CREATININE 1.84 mg/dl (0.60-1.20)
[2017-09-01 21:34] LABS: POTASSIUM 3.3 mmol/L (3.5-5.1)
[2017-09-01 23:34] VITALS: BP 112/66; PULSE 96; TEMP 37.8; O2SAT 93
[2017-09-02 05:41] LABS: HEMATOCRIT 27.9 % (37-47); HEMOGLOBIN 9.1 g/dL (12.0-16.0); MEAN CELL VOLUME 77.3 fL (80-100); MEAN CORPUSCULAR HEMOGLOBIN 25.2 pg (25-34); MEAN CORPUSCULAR HGB CONC 32.6 g/dl (32-36); PLATELET COUNT 182 K/uL (130-400); RED CELL DISTRIBUTION WIDTH SD 43.2 fL (36.4-46.3); WHITE BLOOD COUNT 10.97 K/uL (4.8-10.8)
[2017-09-02 06:12] LABS: CALCIUM 8.2 mg/dl (8.5-10.1); CREATININE 1.72 mg/dl (0.60-1.20); POTASSIUM 3.3 mmol/L (3.5-5.1)
[2017-09-02 07:21] VITALS: BP 116/73; PULSE 72; TEMP 37; O2SAT 96
[2017-09-02] MEDS: NYSTATIN OINT 15 GM TUBE EXT SCH ×3 (07:45→20:30)
[2017-09-02] MEDS: D5NSS + 20MEQ KCL 1,000 ML IV SCH (07:45)
[2017-09-02] MEDS: ASPIRIN 325 MG ECTAB PO SCH (07:51)
[2017-09-02] MEDS: HYDROXYCHLOROQUINE SULFATE 200 MG TAB PO SCH (07:52)
[2017-09-02] MEDS: POTASSIUM CHLORIDE 20 MEQ TABCR PO SCH (07:52)
[2017-09-02 08:00] VITALS: O2SAT 96
--- NOTE | 2017-09-02 09:06 | Clinical Documentation Query ---
CLINICAL DOCUMENTATION QUERY 71 year old female with complaints of subjective fevers, headache, runny nose, sore throat, non-productive cough, SOB, generalized weakness, and fatigue. She has been diagnosed with pneumonia, cellulitis and PRINCESS. She has subjective fever with Tmax while here of 37.8, tachycardia 115, tachypnea 32, and hypoxia of 86%. She is leukocytotic 14.24. In your clinical opinion is this patient being managed for: ( X ) Sepsis in setting of pneumonia cellulitis ( ) Other explanation of clinical findings (No explanation is considered a No Response) ( ) Unable to determine ( ) Need to Discuss (Phone CDS or qliq) (No discussion is considered a No Response) The medical record reflects the following clinical findings, treatment, and risk factors. Clinical Indicators: as above. Treatment: IVF bolus with primary IVF's, IV Zosyn, IV Vanco, and IV Levofloxacin. Risk Factors: Age, multiple infective sources, immunosuppressive therapy. Please clarify and document your clinical opinion in the progress notes and discharge summary. Terms such as "probable", "suspected", "likely", "questionable", "possible", or "still to be ruled out" are acceptable. IF IN AGREEMENT, YOU MUST DOCUMENT ABOVE DIAGNOSTIC STATEMENT IN DAILY PROGRESS NOTES AND DISCHARGE SUMMARY. This document is not part of the patient's record. * 2 of 4 SIRS criteria may clinically support both an infectious process and a systemic process, i.e. Sepsis. * Temperature >38C or <36C * Heart Rate >90/min * Respiratory Rate >20/min or PaCO2 <32 mm Hg * WBC >12,000/mm3 or <4000/mm3 or >10% immature bands Thank You, Josue Baptiste, RN [phone] & via qlicCONNECT
--- NOTE | 2017-09-02 12:24 | Clinical Documentation Query ---
CLINICAL DOCUMENTATION QUERY 71 year old female with complaints of subjective fevers, headache, runny nose, sore throat, non-productive cough, SOB, generalized weakness, and fatigue. She has been diagnosed with pneumonia, cellulitis and PRINCESS. She has subjective fever with Tmax while here of 37.8, tachycardia 115, tachypnea 32, and hypoxia of 86%. She is leukocytotic 14.24. In your clinical opinion is this patient being managed for: ( x) Sepsis in setting of pneumonia ( ) Not Agree ( ) Other explanation of clinical findings (No explanation is considered a No Response) ( ) Unable to determine ( ) Need to Discuss (Phone CDS or qliq) (No discussion is considered a No Response) The medical record reflects the following clinical findings, treatment, and risk factors. Clinical Indicators: as above. Treatment: IVF bolus with primary IVF's, IV Zosyn, IV Vanco, and IV Levofloxacin. Risk Factors: Age, multiple infective sources, immunosuppressive therapy. Please clarify and document your clinical opinion in the progress notes and discharge summary. Terms such as "probable", "suspected", "likely", "questionable", "possible", or "still to be ruled out" are acceptable. IF IN AGREEMENT, YOU MUST DOCUMENT ABOVE DIAGNOSTIC STATEMENT IN DAILY PROGRESS NOTES AND DISCHARGE SUMMARY. This document is not part of the patient's record. Thank You, Josue Baptiste RN [phone] & via qlicCMOUNT GRAH[facility] MEDICAL [facility]ENTERECT
--- NOTE | 2017-09-02 13:14 | Medical Student: [facility] ---
Med Student Progress Note Date of Service September 02, 2017. Subjective Pt evaluation today including: conversation w/ patient, physical exam, lab review Pain: None PO Intake: Adequate Voiding: no voiding problems This is a 71-year-old female with a history of HTN and CKD Stage III who is admitted for community acquired pneumonia and PRINCESS. She feels a bit better today and has "less rattling in her chest." She felt feverish overnight but has had no chills. She denies chest pain, shortness of breath, nausea, vomiting, and calf pain. She feels like she may diarrhea today but has had formed stools the past few days. Review of Systems Constitutional: + fever, No chills ENT: + sore throat Respiratory: + cough (nonproductive), No shortness of breath Cardiac: No chest pain Abdomen: No pain, No nausea, No vomiting, No constipation Female : No dysuria Objective Vital Signs Date Time Temp Pulse Resp B/P (MAP) Pulse Ox O2 Delivery O2 Flow Rate FiO2 09/02/17 08:00 96 Nasal Cannula 3.0 09/02/17 07:21 37.0 72 18 116/73 (87) 96 Nasal Cannula 3.0 09/02/17 00:10 Nasal Cannula 3.0 09/01/17 23:34 37.8 96 16 112/66 (81) 93 Nasal Cannula 3.0 09/01/17 15:15 36.5 86 18 122/66 (84) 99 Nasal Cannula 3.0 09/01/17 15:15 Nasal Cannula 3.0 09/01/17 15:02 36.7 89 19 104/62 (76) 94 Nasal Cannula 3.0 09/01/17 14:44 90 100/56 98 09/01/17 14:24 89 98 Nasal Cannula 3.0 Physical Exam General Appearance: WD/WN, no apparent distress Eyes: bilateral eyes normal inspection ENT: pharynx normal Neck: + adenopathy present (right anterior cervical chain) Respiratory/Chest: no respiratory distress, + crackles (bilaterally), + rhonchi (in left lower lobe) Cardiovascular: regular rate, rhythm, no gallop, no murmur Abdomen: normal bowel sounds, non tender, soft Extremities: no calf tenderness, + pedal edema (2+ edema due to venous insufficiency with breaking in the skin. There is no tenderness, beefy-red erythema, or warmth) Neurologic/Psychiatric: alert, normal mood/affect Laboratory Results Last 24 Hours Test 09/01/17 20:19 09/02/17 05:29 Hemoglobin 10.1 g/dL 9.1 g/dL Sodium Level 137 mmol/L 139 mmol/L Potassium Level 3.3 mmol/L 3.3 mmol/L Chloride Level 104 mmol/L 108 mmol/L Carbon Dioxide Level 26 mmol/L 23 mmol/L Anion Gap 8.0 mmol/L 8.0 mmol/L Blood Urea Nitrogen 32 mg/dl 30 mg/dl Creatinine 1.84 mg/dl 1.72 mg/dl Est Creatinine Clear Calc Drug Dose 35.5 ml/min 38.0 ml/min Estimated GFR () 31.4 34.1 Estimated GFR (Non- 27.1 29.4 BUN/Creatinine Ratio 17.3 17.7 Random Glucose 93 mg/dl 148 mg/dl Calcium Level 8.6 mg/dl 8.2 mg/dl Iron Level 16 mcg/dl Total Iron Binding Capacity 160 mcg/dl White Blood Count 10.97 K/uL Red Blood Count 3.61 M/uL Hematocrit 27.9 % Mean Corpuscular Volume 77.3 fL Mean Corpuscular Hemoglobin 25.2 pg Mean Corpuscular Hemoglobin Concent 32.6 g/dl RDW Standard Deviation 43.2 fL RDW Coefficient of Variation 15.0 % Platelet Count 182 K/uL Mean Platelet Volume 9.0 fL Magnesium Level 2.3 mg/dl Assessment and Plan Assessment and Plan: This is a 71-year-old female with a history of HTN and CKD Stage III who is admitted for community acquired pneumonia and PRINCESS. SEPSIS IN THE SETTING OF LEFT LOWER LOBE COMMUNITY ACQUIRED PNEUMONIA - improving - On admission on 09/01, she had leukocytosis at 14.24, tachycardia at 115 bpm, and tachypnea with a RR of 32 in the setting of cough with chest x-ray consistent with a left lower lobe pneumonia. - WBC trended downward to 10.97. She is afebrile. She still requires 2-3L of supplemental 02. She reports overall feel a little better. - She is on day #2/10 days of levofloxacin (09/01/17-09/11/17). She also is on day #2 of vancomycin for what was thought to be right LE cellulitis (see below. ) As she is immunocompromised due to chronic prednisone therapy, we must consider MRSA pneumonia. We will perform MRSA nasal swab to direct treatment. - Follow blood cultures. Trend CBC. ACUTE KIDNEY INJURY ON CKD STAGE 3 - improving - Appears her baseline Cr is ~1.4. On admission on 09/01 her Cr was 2.04 and has trended down to 1.72 with IVF resuscitation. This appears to be prerenal in nature as it is improving with fluids. - We are holding HCTZ/triamterene. - Trend BMP. BILATERAL CHRONIC VENOUS INSUFFICIENCY - On admission, she was diagnosed with right lower extremity cellulitis and was placed on vancomycin and nystatin cream. - Today however it appears that both legs are edematous without beefy-red erythema, tenderness, or warmth over the R lower extremity. This is more consistent with chronic venous insufficiency, so we are stopping vancomycin pending MRSA nasal swab. - There is breakage in this skin bilaterally, so we have consulted wound care. - We will also add compression stockings. RHEUMATOID ARTHRITIS - stable - Is chronically on 7.5 mg of prednisone and was given a stress dose of 50 mg while admitted. Continue hydroxychloroquine. - As she improves we will prepare steroid taper for discharge. HYPERTENSION - stable - BP is controlled and is presently 111/72. - HCTZ/triamterene on hold in setting of PRINCESS. - Will monitor for need of PRN hydralazine. DYSLIPIDEMIA - Continue pravastatin HYPOKALEMIA - improving - 2.6 on admission on 09/01, is now 3.3 after replacement. She takes 20meq daily at home. - Trend BMP tomorrow. HYPOMAGNESEMIA - resolved - 1.6 on admission, is now 2.3 after replacement. DVT PPX - Continue SCDs, KEVIN stockings, and heparin DISPOSITION - Admitted to 4W. Appreciate PT/OT evals near discharge. Medical Student Supervision Note: I interviewed and examined the patient. Discussed with Yasmine Burk MS4 and agree with findings and plan as documented in the note. Any exceptions or clarifications are listed here: None Documented By: Luan Nj feleing a bit better than at admission breathing easier legs feel better vitals noted nad breathing unlabored no pallor or icterus, legs w venous stasis type changes no erythema nontender HAP w sepsis present on admission - appearing to stabilize/improve. continue supportive care and abx leg changes - appearing venous stasis related rather than cellulitis - nontender. local care. otherwise as above
[2017-09-02] MEDS: HEPARIN SOD 5000 UNIT/0.5 ML CARP SQ SCH ×2 (14:43→22:38)
[2017-09-02 15:23] VITALS: BP 111/72; PULSE 80; TEMP 37.1; O2SAT 96
[2017-09-02 16:00] VITALS: O2SAT 96
[2017-09-02] MEDS ORDERED: VANCOMYCIN IV 1,250 MG in SODIUM CHLORIDE 0.9% 250ML 250 ML IV SCH (18:00)
[2017-09-02] MEDS: PRAVASTATIN SOD 20 MG TAB PO SCH (20:29)
[2017-09-02 23:49] VITALS: BP 112/70; PULSE 81; TEMP 36.9; O2SAT 95
[2017-09-03] VITALS (8 sets, daily range): BP systolic 116–161; BP diastolic 71–82; PULSE 71–82; TEMP 36.7–37.1; O2SAT 94–98
[2017-09-03] MEDS ORDERED: COUGH DROP (SUGAR FREE) LOZ 24 LOZ/1 BOX LOZ ONE (02:58)
[2017-09-03] MEDS ORDERED: COUGH DROP (SUGAR FREE) LOZ 24 LOZ/1 BOX LOZ PRN (03:45)
[2017-09-03] MEDS: HEPARIN SOD 5000 UNIT/0.5 ML CARP SQ SCH ×3 (06:02→21:33)
[2017-09-03 06:28] LABS: HEMATOCRIT 29.3 % (37-47); HEMOGLOBIN 9.3 g/dL (12.0-16.0); MEAN CELL VOLUME 78.3 fL (80-100); MEAN CORPUSCULAR HEMOGLOBIN 24.9 pg (25-34); MEAN CORPUSCULAR HGB CONC 31.7 g/dl (32-36); MEAN PLATELET VOLUME 9.3 fL (7.4-10.4); PLATELET COUNT 258 K/uL (130-400); RED CELL DISTRIBUTION WIDTH CV 15.3 % (11.5-14.5); RED CELL DISTRIBUTION WIDTH SD 44.1 fL (36.4-46.3)
[2017-09-03 06:57] LABS: BASO % 0.1 %; BASO ABS # 0.01 K/uL (0-0.2); IG# 0.05 K/uL (0.00-0.02); LYMPH % 2.7 %; LYMPH ABS # 0.34 K/uL (1.2-3.4); MONO % 2.1 %; MONO ABS # 0.27 K/uL (0.11-0.59); NEUT % 94.7 %; NEUT ABS # 12.13 K/uL (1.4-6.5)
[2017-09-03 06:59] LABS: CALCIUM 8.2 mg/dl (8.5-10.1); CREATININE 1.55 mg/dl (0.60-1.20); POTASSIUM 3.4 mmol/L (3.5-5.1)
[2017-09-03] MEDS: NYSTATIN OINT 15 GM TUBE EXT SCH ×3 (08:09→20:44)
[2017-09-03] MEDS: ASPIRIN 325 MG ECTAB PO SCH (08:09)
[2017-09-03] MEDS: POTASSIUM CHLORIDE 20 MEQ TABCR PO SCH (08:09)
[2017-09-03] MEDS: HYDROXYCHLOROQUINE SULFATE 200 MG TAB PO SCH (08:09)
[2017-09-03] MEDS ORDERED: POTASSIUM CHLORIDE 20 MEQ TABCR PO STA (08:57)
[2017-09-03] MEDS ORDERED: ALBUT/IPRATROP 3MG/0.5MG NEB 3 ML VIAL INH PRN (10:30)
[2017-09-03] MEDS: LEVOFLOXACIN 750 MG TAB PO SCH (10:32)
[2017-09-03] MEDS: ACETAMINOPHEN 325 MG TAB PO PRN (10:37)
[2017-09-03] MEDS: ALBUT/IPRATROP 3MG/0.5MG NEB 3 ML VIAL INH SCH ×3 (11:08→19:10)
[2017-09-03] MEDS ORDERED: LEVOFLOXACIN / D5W 750 MG in PREMIXED IN D5W 150 ML IV SCH (12:00)
[2017-09-03] MEDS ORDERED: NURSING DECISION MEDICATION ORDER SCH (12:15)
[2017-09-03] MEDS ORDERED: EUCERIN CR 120 GM JAR EXT PRN (13:45)
--- NOTE | 2017-09-03 18:39 | Medical Student: [facility] ---
Med Student Progress Note Date of Service September 03, 2017. Subjective Pt evaluation today including: conversation w/ patient Pain: None PO Intake: Adequate Voiding: no voiding problems This is a 71-year-old female with a history of HTN and CKD Stage III who is admitted for community acquired pneumonia and PRINCESS. She states she feels a "little better I guess." She continues to have cough but is unable to bring anything up. When discussing post-hospital planning she becomes upset with the idea of going to rehab. She says "I've had enough physical therapy to last me a lifetime." She has no other complaints. Review of Systems Constitutional: No fever, No chills Respiratory: + cough, No sputum, No shortness of breath Cardiac: No chest pain, No palpitations Abdomen: + diarrhea, No pain, No nausea, No vomiting, No constipation Musculoskeletal: No calf pain Female : No dysuria, No urinary frequency Objective Vital Signs Date Time Temp Pulse Resp B/P (MAP) Pulse Ox O2 Delivery O2 Flow Rate FiO2 09/03/17 16:00 Room Air 09/03/17 15:52 36.7 77 20 143/77 (99) 98 Room Air 09/03/17 15:03 78 16 95 Room Air 09/03/17 12:07 81 94 09/03/17 11:06 74 16 94 Room Air 09/03/17 08:00 95 Nasal Cannula 1.0 09/03/17 07:25 37.1 82 20 161/82 (108) 96 Nasal Cannula 2.0 09/03/17 00:00 Nasal Cannula 2.0 09/02/17 23:49 36.9 81 20 112/70 (84) 95 Nasal Cannula 2.0 09/02/17 20:00 Nasal Cannula 2.0 Physical Exam General Appearance: no apparent distress, + pertinent finding (fatigued appearing, weary) Eyes: bilateral eyes normal inspection ENT: TMs normal Respiratory/Chest: + rhonchi Cardiovascular: regular rate, rhythm, no gallop, no murmur Abdomen: normal bowel sounds, non tender, soft Extremities: + pedal edema Neurologic/Psychiatric: alert (chronic venous insufficiency) Laboratory Results Last 24 Hours Test 09/03/17 06:12 White Blood Count 12.80 K/uL Red Blood Count 3.74 M/uL Hemoglobin 9.3 g/dL Hematocrit 29.3 % Mean Corpuscular Volume 78.3 fL Mean Corpuscular Hemoglobin 24.9 pg Mean Corpuscular Hemoglobin Concent 31.7 g/dl Platelet Count 258 K/uL Mean Platelet Volume 9.3 fL Neutrophils (%) (Auto) 94.7 % Lymphocytes (%) (Auto) 2.7 % Monocytes (%) (Auto) 2.1 % Eosinophils (%) (Auto) 0.0 % Basophils (%) (Auto) 0.1 % Neutrophils # (Auto) 12.13 K/uL Lymphocytes # (Auto) 0.34 K/uL Monocytes # (Auto) 0.27 K/uL Eosinophils # (Auto) 0.00 K/uL Basophils # (Auto) 0.01 K/uL RDW Standard Deviation 44.1 fL RDW Coefficient of Variation 15.3 % Immature Granulocyte % (Auto) 0.4 % Immature Granulocyte # (Auto) 0.05 K/uL Toxic Granulation 2+ Echinocytes 1+ Sodium Level 142 mmol/L Potassium Level 3.4 mmol/L Chloride Level 111 mmol/L Carbon Dioxide Level 23 mmol/L Anion Gap 8.0 mmol/L Blood Urea Nitrogen 39 mg/dl Creatinine 1.55 mg/dl Est Creatinine Clear Calc Drug Dose 42.2 ml/min Estimated GFR () 38.6 Estimated GFR (Non- 33.3 BUN/Creatinine Ratio 25.1 Random Glucose 157 mg/dl Calcium Level 8.2 mg/dl Assessment and Plan Assessment and Plan: This is a 71-year-old female with a history of HTN and CKD Stage III who is admitted for community acquired pneumonia and PRINCESS. SEPSIS IN THE SETTING OF LEFT LOWER LOBE COMMUNITY ACQUIRED PNEUMONIA - improving - WBC trended up from 10.97 to 12.8 today, which makes sense with stress dosing steroids. On admission on 09/01, she had leukocytosis at 14.24, tachycardia at 115 bpm, and tachypnea with a RR of 32 in the setting of cough with chest x-ray consistent with a left lower lobe pneumonia. - She is afebrile. She had required 2-3L of O2 but is now breathing on room air. She reports overall feel a little better, but still struggles to cough up phlegm. - She is on day #3/10 days of levofloxacin (09/01/17-09/11/17). We performed MRSA nasal swab to determine need for vancomycin. It was negative, so vanc was discontinued. - We have added DuoNebs, guaifenesin PRN to help clear secretions. We will transition to PO levofloxacin. - Blood cultures show no growth. - Trend CBC. ACUTE KIDNEY INJURY ON CKD STAGE 3 - improving - Appears her baseline Cr is ~1.4. On admission on 09/01 her Cr was 2.04 and has trended down to 1.55 with IVF resuscitation. This appears to be prerenal in nature as it is improving with fluids. - We held HCTZ/triamterene initially, but now that she's improving, we will restart. - Trend BMP. BILATERAL CHRONIC VENOUS INSUFFICIENCY - On admission, she was diagnosed with right lower extremity cellulitis and was placed on vancomycin and nystatin cream. - Today however it appears that both legs are edematous without beefy-red erythema, tenderness, or warmth over the R lower extremity. This is more consistent with chronic venous insufficiency. - MRSA negative, discontinued vancomycin. - There is breakage in this skin bilaterally, so we have consulted wound care. RHEUMATOID ARTHRITIS - stable - Is chronically on 7.5 mg of prednisone and was given a stress dose of 50 mg while admitted. Continue hydroxychloroquine. - As she improves we will prepare steroid taper for discharge. HYPERTENSION - stable - BP was elevated at 161/82. We will reintroduce HCTZ/triamterene DYSLIPIDEMIA - Continue pravastatin HYPOKALEMIA - improving - 2.6 on admission on 09/01, is now 3.4 after replacement. She takes 20meq daily at home. - Trend BMP tomorrow. DVT PPX - Continue SCDs, KEVIN stockings, and heparin DISPOSITION - Admitted to . Appreciate PT/OT berry near discharge. Medical Student Supervision Note: I interviewed and examined the patient. Discussed with Yasmine Burk MS4 and agree with findings and plan as documented in the note. Any exceptions or clarifications are listed here: None Documented By: Luan Nj R ankle hurts swelling about the same breathing about the same maybe slightly better really doesn't want to go to rehab vitals noted nad breathing unlabored no pallor or icterus, legs w venous stasis type changes no erythema, medial L ankle tender no crepitis no open lesions swelling c/w venous stasis but can't feel a joint effusion lungs more clear but still mucous rhonchi throughout HAP w sepsis present on admission - appearing to slowly improve. continue supportive care and abx as above leg changes - appearing venous stasis related rather than cellulitis - local care. R ankle pain - ?related to RA vs just pain from venous stasis. supportive care dispo - goal will be home otherwise as above
[2017-09-03] MEDS: PRAVASTATIN SOD 20 MG TAB PO SCH (20:44)
[2017-09-03] MEDS: GUAIFENESIN 600 MG TABCR PO SCH (20:44)
[2017-09-03] MEDS: TRIAMTERENE/HCTZ 37.5/25MG TAB PO SCH (20:44)
[2017-09-04] VITALS (7 sets, daily range): BP systolic 120–125; BP diastolic 74–76; PULSE 77–93; TEMP 36.7–36.9; O2SAT 92–95
[2017-09-04 06:04] LABS: BASO % 0.1 %; BASO ABS # 0.01 K/uL (0-0.2); HEMATOCRIT 29.8 % (37-47); HEMOGLOBIN 9.4 g/dL (12.0-16.0); IG# 0.05 K/uL (0.00-0.02); MEAN CELL VOLUME 78.6 fL (80-100); MEAN CORPUSCULAR HEMOGLOBIN 24.8 pg (25-34); MEAN CORPUSCULAR HGB CONC 31.5 g/dl (32-36); MEAN PLATELET VOLUME 8.8 fL (7.4-10.4); NEUT % 92.4 %; NEUT ABS # 9.25 K/uL (1.4-6.5); PLATELET COUNT 268 K/uL (130-400); RED CELL DISTRIBUTION WIDTH CV 15.5 % (11.5-14.5); RED CELL DISTRIBUTION WIDTH SD 44.9 fL (36.4-46.3); WHITE BLOOD COUNT 10.01 K/uL (4.8-10.8)
[2017-09-04] MEDS: ACETAMINOPHEN 325 MG TAB PO PRN (06:35)
[2017-09-04] MEDS: HEPARIN SOD 5000 UNIT/0.5 ML CARP SQ SCH ×3 (06:36→22:19)
[2017-09-04 06:43] LABS: CALCIUM 8.4 mg/dl (8.5-10.1); CREATININE 1.53 mg/dl (0.60-1.20); POTASSIUM 3.9 mmol/L (3.5-5.1)
[2017-09-04] MEDS: ALBUT/IPRATROP 3MG/0.5MG NEB 3 ML VIAL INH SCH ×5 (07:06→23:12)
[2017-09-04] MEDS: ASPIRIN 325 MG ECTAB PO SCH (08:30)
[2017-09-04] MEDS: NYSTATIN OINT 15 GM TUBE EXT SCH ×3 (08:30→21:03)
[2017-09-04] MEDS: POTASSIUM CHLORIDE 20 MEQ TABCR PO SCH (08:31)
[2017-09-04] MEDS: HYDROXYCHLOROQUINE SULFATE 200 MG TAB PO SCH (08:31)
[2017-09-04] MEDS: GUAIFENESIN 600 MG TABCR PO SCH ×2 (08:32→21:04)
[2017-09-04] MEDS ORDERED: GLUCOSE 40% GEL 15 GM TUBE PO PRN (09:30)
[2017-09-04] MEDS ORDERED: DEXTROSE 50% 50 ML SYR IV PRN (09:30)
[2017-09-04] MEDS ORDERED: GLUCOSE 10 TABS/TUBE PO PRN (09:30)
[2017-09-04] MEDS ORDERED: GLUCAGON FOR INJ 1 MG VIAL IM PRN (09:30)
[2017-09-04] MEDS ORDERED: CARBOHYDRATES FOR HYPOGLYCEMIA PO PRN (09:30)
[2017-09-04] MEDS: INSULIN ASPART 100 UNITS/ML 3 ML PEN SC SCH ×4 (09:30→21:00)
[2017-09-04] MEDS ORDERED: INSULIN GLARGINE SOLOSTAR 100 UNITS/ML 3 ML PEN SC STA (13:56)
[2017-09-04] MEDS: METHYLPREDNISOLONE IV 60 MG in SYRINGE 0 ML IV SCH ×2 (15:54→21:59)
--- NOTE | 2017-09-04 16:41 | Medical Student: [facility] ---
Med Student Progress Note Date of Service September 04, 2017. Subjective This is a 71-year-old female with a history of HTN and CKD Stage III who is admitted for community acquired pneumonia. She states "I don't feel good today. " Her main complaint is headache that she describes as throbbing across the front without nausea or photophobia. Acetaminophen is helping. She continues to have nonproductive cough and loose bowel movements that are bothering her. She also has a mild "burning" sensation over her R lower extremity where the wound team dressed her open skin secondary to venous insufficiency. Review of Systems Constitutional: No fever, No chills Respiratory: + cough, No sputum, No shortness of breath Cardiac: No chest pain Abdomen: + diarrhea, No pain, No nausea, No vomiting, No constipation Female : No dysuria, No urinary frequency Objective Vital Signs Date Time Temp Pulse Resp B/P (MAP) Pulse Ox O2 Delivery O2 Flow Rate FiO2 09/04/17 11:25 82 16 95 Room Air 09/04/17 08:00 Room Air 09/04/17 07:38 36.9 91 24 120/75 (90) 92 Room Air 09/04/17 07:06 77 16 94 Room Air 09/04/17 00:04 36.9 93 18 125/74 (91) 92 Room Air 09/04/17 00:00 Room Air 09/03/17 20:42 116/71 (86) 09/03/17 20:05 Room Air 09/03/17 19:06 71 16 94 Room Air Physical Exam General Appearance: no apparent distress (however weary and anxious), + pertinent finding ENT: TMs normal Respiratory/Chest: no respiratory distress, + crackles (bilaterally), + rhonchi (LLL) Cardiovascular: regular rate, rhythm, no gallop, no murmur Abdomen: normal bowel sounds, non tender, soft Extremities: no calf tenderness, + pedal edema (2+ from venous insufficiency), + pertinent finding (no worsening tenderness or erythema in R lower extremity) Neurologic/Psychiatric: alert Laboratory Results Last 24 Hours Test 09/04/17 05:47 09/04/17 11:24 White Blood Count 10.01 K/uL Red Blood Count 3.79 M/uL Hemoglobin 9.4 g/dL Hematocrit 29.8 % Mean Corpuscular Volume 78.6 fL Mean Corpuscular Hemoglobin 24.8 pg Mean Corpuscular Hemoglobin Concent 31.5 g/dl Platelet Count 268 K/uL Mean Platelet Volume 8.8 fL Neutrophils (%) (Auto) 92.4 % Lymphocytes (%) (Auto) 4.0 % Monocytes (%) (Auto) 3.0 % Eosinophils (%) (Auto) 0.0 % Basophils (%) (Auto) 0.1 % Neutrophils # (Auto) 9.25 K/uL Lymphocytes # (Auto) 0.40 K/uL Monocytes # (Auto) 0.30 K/uL Eosinophils # (Auto) 0.00 K/uL Basophils # (Auto) 0.01 K/uL RDW Standard Deviation 44.9 fL RDW Coefficient of Variation 15.5 % Immature Granulocyte % (Auto) 0.5 % Immature Granulocyte # (Auto) 0.05 K/uL Sodium Level 143 mmol/L Potassium Level 3.9 mmol/L Chloride Level 113 mmol/L Carbon Dioxide Level 22 mmol/L Anion Gap 8.0 mmol/L Blood Urea Nitrogen 45 mg/dl Creatinine 1.53 mg/dl Est Creatinine Clear Calc Drug Dose 42.7 ml/min Estimated GFR () 39.3 Estimated GFR (Non- 33.9 BUN/Creatinine Ratio 29.6 Random Glucose 170 mg/dl Calcium Level 8.4 mg/dl Bedside Glucose 176 mg/dl Assessment and Plan Assessment and Plan: This is a 71-year-old female with a history of HTN and CKD Stage III who is admitted for community acquired pneumonia. SEPSIS IN THE SETTING OF LEFT LOWER LOBE COMMUNITY ACQUIRED PNEUMONIA - improving - On admission on 09/01, she had leukocytosis at 14.24, tachycardia at 115 bpm, and tachypnea with a RR of 32 in the setting of cough with chest x-ray consistent with a left lower lobe pneumonia. She had required 2-3L of O2. Blood cultures show no growth. - She is now breathing room air. WBC continues to have a net downward trend. She is afebrile. However, she reports not feeling much better compared to yesterday. - She is on day #4/10 days of PO levofloxacin (09/01/17-09/11/17). We performed MRSA nasal swab to determine need for vancomycin. It was negative, so vanc was discontinued. - We added DuoNebs and guaifenesin PRN to help clear secretions, but she has not found this helpful. We will increase DuoNebs to q4hrs and stress dose her steroids further to IV 60mg methylprednisolone TID. Stop prednisone. - Trend CBC. HYPERGLYCEMIA - She does not have a history of diabetes mellitus but her blood sugars are running in the high 100s and sometimes near 250s. The most likely explanation is steroid therapy. - We will check A1C. - We have started 10 lantus BID with a goal blood sugar between 120-160. Correction factor of 20 and carb ratio of 1:8. PRINCESS ON CKD STAGE 3 - improving - Appears her baseline Cr is ~1.4. On admission on 09/01 her Cr was 2.04 and has trended down to 1.53. This appears to be prerenal in nature as it is improved with volume replacement. - We initially held her HCTZ/triamterene, but with improvement in azotemia, we have restarted. - Trend BMP. BILATERAL CHRONIC VENOUS INSUFFICIENCY - On admission, she was diagnosed with right lower extremity cellulitis and was placed on vancomycin and nystatin cream. However it appears that both legs are edematous without beefy-red erythema, tenderness, or warmth over the R lower extremity. This is more consistent with chronic venous insufficiency. As MRSA was negative, we discontinued vancomycin. - There is breakage in this skin bilaterally, so consulted wound care who dressed the right lower extremity. RHEUMATOID ARTHRITIS - stable - Is chronically on 7.5 mg of prednisone and was given a stress dose of 50 mg while admitted. We have discontinued the prednisone as she is now on methylprednisolone. Continue hydroxychloroquine. - As she improves we will prepare steroid taper for discharge. HYPERTENSION - stable - With reintroduction of HCTZ/triamterene, her blood pressure is now excellent at 120/75. DYSLIPIDEMIA - Continue pravastatin HYPOKALEMIA - resolved - 2.6 on admission on 09/01, is now 3.9 after replacement. She takes 20meq daily at home. - Trend BMP tomorrow. DVT PPX - Continue SCDs, KEVIN stockings, and heparin DISPOSITION - Admitted to . Appreciate PT/OT evals near discharge. Medical Student Supervision Note: I interviewed and examined the patient. Discussed with Yasmine Burk MS4 and agree with findings and plan as documented in the note. Any exceptions or clarifications are listed here: None Documented By: Luan Nj feeling better still coughing not bringing much up vitals noted nad breathing unlabored faint rhonchi but overall pretty clear no pallor or icterus HAP w sepsis present on admission - slow improvement continues. continue supportive care and abx as above, increase steroids and nebs to help w pulmonary toilet leg changes - appearing venous stasis related rather than cellulitis - local care. R ankle pain - improving dispo - goal will be home otherwise as above
[2017-09-04] MEDS ORDERED: VANCOMYCIN TROUGH ONE (17:30)
[2017-09-04] MEDS: TRIAMTERENE/HCTZ 37.5/25MG TAB PO SCH (21:03)
[2017-09-04] MEDS: PRAVASTATIN SOD 20 MG TAB PO SCH (21:04)
[2017-09-04] MEDS: INSULIN GLARGINE SOLOSTAR 100 UNITS/ML 3 ML PEN SC SCH (21:10)
[2017-09-05] VITALS (8 sets, daily range): BP systolic 124–153; BP diastolic 79–86; PULSE 73–101; TEMP 36.4–36.7; O2SAT 92–98
[2017-09-05] MEDS: ALBUT/IPRATROP 3MG/0.5MG NEB 3 ML VIAL INH SCH ×4 (04:00→15:35)
[2017-09-05] MEDS: METHYLPREDNISOLONE IV 60 MG in SYRINGE 0 ML IV SCH ×2 (05:36→13:08)
[2017-09-05] MEDS: HEPARIN SOD 5000 UNIT/0.5 ML CARP SQ SCH ×3 (05:40→20:41)
[2017-09-05] MEDS: GUAIFENESIN 600 MG TABCR PO SCH ×2 (08:32→20:37)
[2017-09-05] MEDS: HYDROXYCHLOROQUINE SULFATE 200 MG TAB PO SCH (08:33)
[2017-09-05] MEDS: ASPIRIN 325 MG ECTAB PO SCH (08:33)
[2017-09-05] MEDS: POTASSIUM CHLORIDE 20 MEQ TABCR PO SCH (08:33)
[2017-09-05] MEDS: NYSTATIN OINT 15 GM TUBE EXT SCH ×3 (08:34→20:37)
[2017-09-05] MEDS: ACETAMINOPHEN 325 MG TAB PO PRN (08:40)
[2017-09-05] MEDS: INSULIN ASPART 100 UNITS/ML 3 ML PEN SC SCH ×4 (08:41→20:41)
[2017-09-05] MEDS: INSULIN GLARGINE SOLOSTAR 100 UNITS/ML 3 ML PEN SC SCH (08:42)
[2017-09-05 09:04] LABS: HEMATOCRIT 33.9 % (37-47); HEMOGLOBIN 10.8 g/dL (12.0-16.0); IG# 0.08 K/uL (0.00-0.02); LYMPH % 5.5 %; MEAN CELL VOLUME 78.5 fL (80-100); MEAN CORPUSCULAR HGB CONC 31.9 g/dl (32-36); MEAN PLATELET VOLUME 9.2 fL (7.4-10.4); MONO % 1.8 %; MONO ABS # 0.16 K/uL (0.11-0.59); NEUT % 91.8 %; NEUT ABS # 8.33 K/uL (1.4-6.5); PLATELET COUNT 343 K/uL (130-400); RED CELL DISTRIBUTION WIDTH CV 15.6 % (11.5-14.5); RED CELL DISTRIBUTION WIDTH SD 45.1 fL (36.4-46.3); WHITE BLOOD COUNT 9.07 K/uL (4.8-10.8)
[2017-09-05 09:36] LABS: CALCIUM 9.4 mg/dl (8.5-10.1); CREATININE 1.53 mg/dl (0.60-1.20); POTASSIUM 3.7 mmol/L (3.5-5.1)
[2017-09-05 09:38] LABS: HEMOGLOBIN A1C 5.8 % (4.5-5.6)
[2017-09-05] MEDS: LEVOFLOXACIN 750 MG TAB PO SCH (11:28)
--- NOTE | 2017-09-05 14:58 | Medical Student: [facility] ---
Med Student Progress Note Date of Service September 05, 2017. Subjective Pt evaluation today including: conversation w/ patient, physical exam, lab review Pain: None PO Intake: Adequate Voiding: no voiding problems This is a 71-year-old female with a history of HTN and CKD Stage III who is admitted for community acquired pneumonia. There were no acute events overnight. She feels "the same" as yesterday but much better than how she felt on admission. She complains of tension-type headache and diarrhea. She continues to have non-productive cough. She is eager to go home without inpatient or in-home physical therapy. Review of Systems Constitutional: No fever, No chills Respiratory: + cough, No sputum, No shortness of breath Cardiac: No chest pain, No palpitations Abdomen: + diarrhea, No pain, No nausea, No vomiting, No constipation Musculoskeletal: + joint pain (R ankle) Female : No dysuria, No urinary frequency, No incontinence Psychiatric: + problem reported (feeling "weary") Objective Vital Signs Date Time Temp Pulse Resp B/P (MAP) Pulse Ox O2 Delivery O2 Flow Rate FiO2 09/05/17 11:21 89 16 95 Room Air 09/05/17 08:43 36.6 92 19 133/84 (100) 98 09/05/17 08:00 98 Room Air 09/05/17 07:16 73 16 95 Room Air 09/05/17 00:00 Room Air 09/04/17 23:19 36.7 78 19 125/76 (92) 93 Room Air 09/04/17 20:00 Room Air 09/04/17 19:13 90 16 94 Room Air 09/04/17 18:11 82 16 95 Room Air 09/04/17 16:00 Room Air Physical Exam General Appearance: no apparent distress Eyes: bilateral eyes normal inspection ENT: TMs normal, pharynx normal Respiratory/Chest: no respiratory distress, + crackles, + rhonchi Cardiovascular: regular rate, rhythm, no gallop, + systolic murmur Abdomen: normal bowel sounds, non tender, soft Extremities: + pedal edema (2+ edema from venous insufficiency) Neurologic/Psychiatric: alert, + pertinent finding (anxious appearing) Laboratory Results Last 24 Hours Test 09/04/17 16:42 09/04/17 17:28 09/04/17 20:45 09/05/17 08:06 Bedside Glucose 123 mg/dl 158 mg/dl 143 mg/dl Vancomycin Level Trough 9.7 mcg/ml Test 09/05/17 08:39 09/05/17 11:59 White Blood Count 9.07 K/uL Red Blood Count 4.32 M/uL Hemoglobin 10.8 g/dL Hematocrit 33.9 % Mean Corpuscular Volume 78.5 fL Mean Corpuscular Hemoglobin 25.0 pg Mean Corpuscular Hemoglobin Concent 31.9 g/dl Platelet Count 343 K/uL Mean Platelet Volume 9.2 fL Neutrophils (%) (Auto) 91.8 % Lymphocytes (%) (Auto) 5.5 % Monocytes (%) (Auto) 1.8 % Eosinophils (%) (Auto) 0.0 % Basophils (%) (Auto) 0.0 % Neutrophils # (Auto) 8.33 K/uL Lymphocytes # (Auto) 0.50 K/uL Monocytes # (Auto) 0.16 K/uL Eosinophils # (Auto) 0.00 K/uL Basophils # (Auto) 0.00 K/uL RDW Standard Deviation 45.1 fL RDW Coefficient of Variation 15.6 % Immature Granulocyte % (Auto) 0.9 % Immature Granulocyte # (Auto) 0.08 K/uL Sodium Level 144 mmol/L Potassium Level 3.7 mmol/L Chloride Level 111 mmol/L Carbon Dioxide Level 23 mmol/L Anion Gap 11.0 mmol/L Blood Urea Nitrogen 54 mg/dl Creatinine 1.53 mg/dl Est Creatinine Clear Calc Drug Dose 42.7 ml/min Estimated GFR () 39.3 Estimated GFR (Non- 33.9 BUN/Creatinine Ratio 35.4 Random Glucose 157 mg/dl Estimated Average Glucose 120 mg/dl Hemoglobin A1c 5.8 % Calcium Level 9.4 mg/dl Bedside Glucose 178 mg/dl Assessment and Plan Assessment and Plan: This is a 71-year-old female with a history of HTN and CKD Stage III who is admitted for community acquired pneumonia. SEPSIS IN THE SETTING OF LEFT LOWER LOBE COMMUNITY ACQUIRED PNEUMONIA - improving - On admission on 09/01, she had leukocytosis at 14.24, tachycardia at 115 bpm, and tachypnea with a RR of 32 in the setting of cough with chest x-ray consistent with a left lower lobe pneumonia. She had required 2-3L of O2. Blood cultures show no growth. We performed MRSA nasal swab to determine need for vancomycin. It was negative, so vanc was discontinued. - She is now breathing room air. WBC continues to have a net downward trend. She is afebrile. However, she reports not feeling much better compared to yesterday. - She is on day #5/10 days of PO levofloxacin (09/01/17-09/11/17). - We have been managing symptoms with prednisone then methylprednisone, guaifenesin, and DuoNebs. We will convert to outpatient formulations in order to best prepare her for managing symptoms on her own at discharge. We will stop methylprednisolone and begin 50mg prednisone daily. We will begin ipratropium and albuterol inhalers 2 puffs q6h PRN. She may continue guaifenesin. - Trend CBC. HYPERGLYCEMIA - She does not have a history of diabetes mellitus but her blood sugars were running in the high 100s and sometimes near 250s. The most likely explanation is steroid therapy. - A1C is 5.8%. - We have started 10 lantus BID with a goal blood sugar between 120-160. Correction factor of 20 and carb ratio of 1:8. This is controlling her blood sugars well. As we are decreasing her steroids now, we will begin 10 units of lantus qAM only. PRINCESS ON CKD STAGE 3 - improving - Appears her baseline Cr is ~1.4. On admission on 09/01 her Cr was 2.04 and has trended down to 1.53. This appears to be prerenal in nature as it is improved with volume replacement. - We initially held her HCTZ/triamterene, but with improvement in azotemia, we have restarted. - Trend BMP. POSITIVE URINE CULTURE OF ENTEROCOCCUS FECIUM - Urine culture was resulted positive as above. Pt denies urinary burning, pain , frequency, urgency, incontinence, and foul smelling urine. As she has no urinary symptoms, this appears to be asymptomatic bacteriuria. Treatment is not indicated. DIARRHEA - She reports loose bowel movements daily. We tested her for C. difficile on admission which was negative. Most likely explanation is either gastroenteritis or side effect of antibiotic usage. We encouraged intake of fluids and yogurt. BILATERAL CHRONIC VENOUS INSUFFICIENCY - stable - On admission, she was diagnosed with right lower extremity cellulitis and was placed on vancomycin and nystatin cream. However it appears that both legs are edematous without beefy-red erythema, tenderness, or warmth over the R lower extremity. This is more consistent with chronic venous insufficiency. As MRSA was negative, we discontinued vancomycin. - There is breakage in this skin bilaterally, so consulted wound care who dressed the right lower extremity. Appears grossly unchanged and noninfectious. RHEUMATOID ARTHRITIS - stable - Is chronically on 7.5 mg of prednisone and was given a stress dose of 50 mg while admitted. Continue hydroxychloroquine. HYPERTENSION - stable - With reintroduction of HCTZ/triamterene, her blood pressure is now excellent at 120/75. DYSLIPIDEMIA - Continue pravastatin HYPOKALEMIA - resolved - 2.6 on admission on 09/01, is now 3.7 after replacement. She takes 20meq daily at home. - Trend BMP tomorrow. DVT PPX - Continue SCDs, KEVIN stockings, and heparin DISPOSITION - Admitted to . Anticipate discharge home potentially on 09/06. Medical Student Supervision Note: I interviewed and examined the patient. Discussed with Yasmine Burk MS4 and agree with findings and plan as documented in the note. Any exceptions or clarifications are listed here: None Documented By: Luan Nj feeling about the same. family present, updated them with pt's permission as well vitals noted nad breathing unlabored no pallor or icterus no converstaional dyspnea appears a little less fatigued HAP w sepsis present on admission - slow improvement continues. in large part appears stable for dsicharge but she seems quite anxious about her status. will exchange consultant to what we would be doing as outpt to allow her the confidence that she's going to do OK leg changes - appearing venous stasis related rather than cellulitis - local care. R ankle pain - improving DM - continue to titrate insulins commessurate to her steroid dosing dispo - goal will be home otherwise as above
[2017-09-05] MEDS: ALBUTEROL HFA 8 GM INHALER INH SCH ×2 (17:33→23:42)
[2017-09-05] MEDS: IPRATROPIUM BROMIDE HFA INHALER INH SCH ×2 (17:33→23:41)
[2017-09-05] MEDS: TRIAMTERENE/HCTZ 37.5/25MG TAB PO SCH (20:37)
[2017-09-05] MEDS: PRAVASTATIN SOD 20 MG TAB PO SCH (20:37)
[2017-09-06] MEDS: ALBUTEROL HFA 8 GM INHALER INH SCH ×2 (05:51→12:49)
[2017-09-06] MEDS: IPRATROPIUM BROMIDE HFA INHALER INH SCH ×2 (05:51→12:49)
[2017-09-06] MEDS: HEPARIN SOD 5000 UNIT/0.5 ML CARP SQ SCH (05:56)
[2017-09-06 06:32] LABS: CREATININE 1.79 mg/dl (0.60-1.20); POTASSIUM 4.3 mmol/L (3.5-5.1)
[2017-09-06] MEDS: HYDROXYCHLOROQUINE SULFATE 200 MG TAB PO SCH (07:29)
[2017-09-06] MEDS: POTASSIUM CHLORIDE 20 MEQ TABCR PO SCH (07:30)
[2017-09-06] MEDS: GUAIFENESIN 600 MG TABCR PO SCH (07:30)
[2017-09-06] MEDS: NYSTATIN OINT 15 GM TUBE EXT SCH (07:30)
[2017-09-06] MEDS: ASPIRIN 325 MG ECTAB PO SCH (07:30)
[2017-09-06] MEDS ORDERED: INSULIN GLARGINE SOLOSTAR 100 UNITS/ML 3 ML PEN SC SCH (08:00)
[2017-09-06] MEDS: INSULIN ASPART 100 UNITS/ML 3 ML PEN SC SCH ×2 (08:10→12:49)
[2017-09-06 08:22] VITALS: BP 150/81; PULSE 86; TEMP 36.6; O2SAT 95
[2017-09-06] MEDS ORDERED: LVQ750 PO (09:43)
[2017-09-06] MEDS ORDERED: PRVHFAIN INH (09:43)
[2017-09-06] MEDS ORDERED: ATRIN INH (09:43)
[2017-09-06] MEDS ORDERED: PRD10 PO (09:43)
--- NOTE | 2017-09-06 09:56 | Discharge Instructions ---
Discharge Instructions Date of Service September 06, 2017. Admission Reason for Admission: Hypokalemia, Pneumonia Discharge Discharge Diagnosis / Problem: pneumonia Discharge Goals Goal(s): Decrease discomfort, Diagnostic testing, Therapeutic intervention Activity Recommendations Activity Limitations: resume your previous activity . Instructions / Follow-Up Instructions / Follow-Up Ms. Kwasi grayson were admitted for cough and fever and found to have pneumonia. You were treated with antibiotics, breathing treatments and a steroid. You felt better prior to your discharge. We are sending you home with the remaining course of your antibiotic, a steroid taper course and 2 inhalers. You also had some diarrhea that seems to be improving and likely from being on antibiotics. We encourage you to continue eating yogurt or take a probiotic while you are still on the antibiotic to help with your diarrhea. We need you to get some lab work done before you see your doctor, Svetlana Doe on 09/11. Please take the script we gave you to a lab on 09/10 to get it done and the results will be sent to her for review with you on the when you see her. Please follow the instructions below after your discharge: -Please don't take your prednisone 10mg daily that you were taking at home before your hospitalization while you are on your prednisone taper course listed below but you can resume your home prednisone after prednisone taper course below is finished on 09/15 (resume prednisone 10mg daily on 09/15) -Please take prednisone (steroid) according to the following taper course: 40mg (4 pills 10mg each) once a day on 09/07 and 09/08 for 2 days then take 30mg (3 pills) on 09/09 and 09/10 then 20mg (2 pills) on 09/11 and 09/12 then 10mg (1 pill) on 09/13 and 09/14. -Please take antibiotic Levofloxacin 750mg (1 pill) once a day on the following days: 09/07, 09/09, 09/11 (should be taking every other day for 3 days total) -Use inhaler albuterol 2 puffs as needed every 6 hours -Use inhaler ipratropium (atrovent) 2 puffs as needed every 6 hours -Take your remaining home medications as prescribed prior to your admission and as listed on your discharge medication list -Go to lab for blood work on 09/10 and take script provided (results will be sent to Svetlana Doe and she will review them with you on 09/11 when you see her) -Follow up with Svetlana Brook on 09/11 at 2:30pm Current Hospital Diet Patient's current hospital diet: Regular Diet Discharge Diet Recommended Diet: AHA Diet (Heart Healthy) Pending Studies Studies pending at discharge: no Laboratory Results Hemoglobin A1c Test 09/05/17 08:39 Range/Units Estimated Average Glucose 120 mg/dl Hemoglobin A1c 5.8 H 4.5-5.6 % Medical Emergencies . Who to Call and When: Medical Emergencies: If at any time you feel your situation is an emergency, please call 911 immediately. . Non-Emergent Contact Non-Emergency issues call your: Primary Care Provider Call Non-Emergent contact if: temperature is above 100.5, your pain is worsening . . "Provider Documentation" section prepared by Dale Moreno. .
[2017-09-06 12:54] VITALS: BP 150/81; PULSE 86; TEMP 36.6; O2SAT 95
--- NOTE | 2017-09-06 13:48 | Discharge Summary ---
Discharge Summary Date of Service September 06, 2017. Discharge Summary Admission Date: September 01, 2017 at 12:47 Discharge Date: September 06, 2017 Discharge Disposition: Home Principal Diagnosis: Sepsis in the setting of Pneumonia Problems/Secondary Diagnoses: PRINCESS on CKD3 Chronic venous insufficiency HTN HLD Hyperglycemia Asymptomatic bacteriuria Immunizations: Have You Had Influenza Vaccine: N/A History of Tetanus Vaccine?: Yes History of Pneumococcal: No History of Hepatitis B Vaccine: No Procedures: RIGHT ANKLE 3 VIEWS CLINICAL HISTORY: Right ankle injury. FINDINGS: 3 portable views the right ankle are correlated with radiographs of the right tibia and fibula dated 12/01/2007. The skeletal structures are osteopenic. No acute fracture is seen. There is chronic posttraumatic deformity of the distal fibular shaft. Benign-appearing periostitis is noted along the distal tibial shaft. The ankle mortise is intact. There is a joint effusion, and significant soft tissue edema is present throughout the imaged right lower extremity. There is atherosclerotic calcification of the regional arteries. IMPRESSION: 1. Diffuse soft tissue edema with no radiographic evidence of right ankle fracture. 2. Osteopenia and chronic changes as above. ULTRASOUND VENOUS DOPPLER LWR EXT BILA CLINICAL HISTORY: Deep venous thrombosis. Leg swelling. COMPARISON STUDY: 10/10/2016 FINDINGS: Real-time and color flow Doppler imaging were performed. Flow was seen within the femoral, popliteal and calf veins with no intraluminal thrombus demonstrated. The saphenous vein is patent. Evaluation the calf veins was somewhat limited due to the patient's body habitus and edema. IMPRESSION: No evidence of lower extremity DVT. CHEST ONE VIEW PORTABLE CLINICAL HISTORY: Sepsis COMPARISON STUDY: 04/06/2009 FINDINGS: The heart is mildly enlarged. There are left lower lobe airspace opacities. There is blunting of the left lateral costophrenic angle. This may indicate a small left pleural effusion. There are right basilar atelectatic changes.[ IMPRESSION: 1. Mild cardiomegaly 2. Left lower lobe airspace opacity suspicious for a pneumonia. Possible small left pleural effusion. Radiographic follow-up is recommended. Consultations: none Medication Reconciliation New Medications: Prednisone (Prednisone) 10 Mg Tab 10 MG PO DAILY for 8 Days, #20 TAB 40mg (4 pills) on 09/07 & 09/08 30mg (3 pills) on 09/09 & 09/10 20mg (2 pills) on 09/11 & 5/26 10mg (1 pill) on 09/13 & 09/14 Albuterol (Ventolin Hfa) 60 Puffs/5400 Mcg Aers 2 PUFFS INH Q6 for 30 Days, #1 INHALER 3 Refills Ipratropium [place] (Atrovent Hfa) 200 Puffs/3400 Mcg Aers 2 PUFFS INH Q6 for 30 Days, #1 INHALER 3 Refills Levofloxacin (Levofloxacin) 750 Mg Tab 750 MG PO Q2D@11 for 3 Days, #3 TAB take 1 tab on 09/07, 09/09 and 09/11 Continued Medications: Aspirin Enteric Coated (Ecotrin Or Generic) 325 Mg Ectab 325 MG PO DAILY, TAB Hydroxychloroquine Sulfate (Plaquenil) 200 Mg Tab 400 MG PO QAM, TAB Leflunomide (Arava) 20 Mg Tab 20 MG PO DAILY, TAB Potassium Ext Rel (Klor-Con) 20 Meq Tabcr 20 MEQ PO AMPM, TAB Pravastatin (Pravachol ) 20 Mg Tab 20 MG PO QPM, 0 Refills Triamterene/Hctz (Triamterene/Hctz 37.5-25MG) 1 Tab Tab 1 TAB PO QPM, TAB Discontinued Medications: Prednisone Tab (Prednisone) 10 Mg Tab 15 MG PO QAM, TAB Discharge Exam Review of Systems: Constitutional: No fever, No chills Respiratory: + cough, No sputum, No shortness of breath Cardiovascular: No chest pain Abdomen: + diarrhea (improving), No pain, No nausea, No vomiting Genitourinary - Female: No dysuria Physical Exam: General Appearance: no apparent distress Eyes: normal inspection Respiratory/Chest: lungs clear, normal breath sounds Cardiovascular: regular rate, rhythm, no murmur Abdomen / GI: normal bowel sounds, non tender, soft Extremities: + pertinent finding (bilateral LE chronic venous stasis skin changes and 2+ LE edema; LEs diffusely TTP) Neurologic/Psychiatric: alert, oriented x 3 Hospital Course 71yoF with history of HTN and CKDIII admitted for community acquired pneumonia. Sepsis in the setting of PNA - improved - Initial WBC of 14.2 normalized to 9 and remained afebrile - Pt's tachycardia and hypoxia/tachypnea improved (pt required supplemental O2 2 -3L initially - off x 2 days) - BCx NGTD - MRSA swab neg - vanc dced - Received Levofloxacin day 09/27 (discharged with 3 additional course for 10 day course) - Received methylpred and pred; dced with prednisone taper x 8 days - Received guaifenesin and duonebs - discharged with albuterol and Atrovent inhalers Hyperglycemia in the setting of steroid use - No hx of diabetes but BG around 250s - A1C 5.8%. - Received Lantus and SS goal 120-160; CF 20; Carb ratio of 1:8 PRINCESS on CKD3 likely prerenal - Baseline Cr ~1.4. - On admission Cr 2.04 and downtrended to 1.8 this AM from 1.5 yesterday - Held HCTZ/triamterene initially resumed when Cr improved to 1.5 - Script for BMP provided to be completed on 09/10 prior to PCP appt on 09/11 for follow up Asymptomatic bacteriuria - UCx enterococcus faecium (likely a contaminant) - Denied dysuria, frequency, urgency, incontinence, and foul smelling urine Diarrhea likely from antibiotic use vs. gastroenteritis - Loose bowel movements daily - C. diff on admission neg - encouraged yogurt/probiotic while on abx B/l chronic venous insufficiency - stable - Started on vanc and nystatin for concern of cellulitis on admission (dced given inconsistent clinical picture) - wound care consulted Rheumatoid arthritis - stable - Chronically on prednisone daily - Received stress dosing of prednisone 50mg daily - Continued hydroxychloroquine HTN - stable - HCTZ/triamterene resumed once Cr improved and BP wnl Dyslipidemia - Continued pravastatin Hypokalemia - resolved - supplemented DVT PPX: SCDs, KEVIN stockings, and heparin DISPOSITION: home Full code Resident Physician Supervision Note: I interviewed and examined the patient. Discussed with Dr. Moreno and agree with findings and plan as documented in the note. Any exceptions or clarifications are listed here: None Documented By: Luan Nj feeling better feeling up to going home vitnaomi noted nad breathing unlabored legs OK HAP w sepsis present on admission - slow improvement continues. stable for discharge leg changes - appearing venous stasis related rather than cellulitis - local care and compression R ankle pain - improving a lot dispo - safe for home otherwise as above Total Time Spent: Greater than 30 minutes This includes examination of the patient, discharge planning, medication reconciliation, and communication with other providers. Discharge Instructions Please refer to the electronic Patient Visit Report (Discharge Instructions) for additional information. Additional Copies To Svetlana Rosales C.R.N.P.
[2017-09-07] MEDS ORDERED: LEVOFLOXACIN 750 MG TAB PO SCH (11:00)
== END 2017-09-06 13:58 | disposition home or self-care (01) | DRG 871 ==
LOC: EDBD 09:38 → C.EDA 09:40 → C.4E 12:47 → ENRESERV 13:10 → CANRESERV 13:10 → ENRESERV 13:21
PROVIDERS: ADMIT Internal Medicine; ATTEND Family Medicine
DX: A41.9 Sepsis, unspecified organism (principal); J18.9 Pneumonia, unspecified organism; L03.116 Cellulitis of left lower limb; N17.9 Acute kidney failure, unspecified; E66.01 Morbid (severe) obesity due to excess calories; Z68.41 Body mass index [BMI] 40.0-44.9, adult; M06.9 Rheumatoid arthritis, unspecified; I12.9 Hypertensive chronic kidney disease with stage 1 through stage 4 chronic kidney disease, or unspecified chronic kidney disease; E87.6 Hypokalemia; N18.3 Chronic kidney disease, stage 3 (moderate); E78.5 Hyperlipidemia, unspecified; E83.42 Hypomagnesemia; D64.9 Anemia, unspecified; I87.2 Venous insufficiency (chronic) (peripheral); R73.9 Hyperglycemia, unspecified; T38.0X5A Adverse effect of glucocorticoids and synthetic analogues, initial encounter; R19.7 Diarrhea, unspecified; Z79.52 Long term (current) use of systemic steroids; Z79.82 Long term (current) use of aspirin; Z79.899 Other long term (current) drug therapy; Z86.718 Personal history of other venous thrombosis and embolism; Z88.2 Allergy status to sulfonamides; Z88.5 Allergy status to narcotic agent

== ENCOUNTER 2018-08-10 16:04 | Inpatient (IN) ==
[2018-08-10] MEDS ORDERED: CEFEPIME 2,000 MG/12.5 ML VIAL IV STA (16:48)
[2018-08-10 17:34] LABS: Basophils # (auto) 0.02 K/uL (0-0.2); Basophils % (auto) 0.3 %; Eosinophils # (auto) 0.21 K/uL (0-0.5); Eosinophils % (auto) 3.4 %; Hematocrit (blood only) 33.5 % (37-47); Immature Granulocytes # (auto) 0.02 K/uL (0.00-0.02); Immature Granulocytes % (auto) 0.3 %; Lymphocytes # (auto) 0.45 K/uL (1.2-3.4); Lymphocytes % (auto) 7.4 %; Mean Corpuscular Hgb Conc 29.9 g/dL (32-36); Mean Corpuscular Volume 85.9 fL (80-100); Mean Platelet Volume 9.7 fL (7.4-10.4); Monocytes # (auto) 0.35 K/uL (0.11-0.59); Monocytes % (auto) 5.7 %; Neutrophils # (auto) 5.05 K/uL (1.4-6.5); Neutrophils % (auto) 82.9 %; Platelet Count 139 K/uL (130-400); RDW Coefficient of Variation 15.5 % (11.5-14.5); RDW Standard Deviation 48.7 fL (36.4-46.3)
--- NOTE | 2018-08-10 18:01 | History & Physical Report ---
Date of Service August 10, 2018 Assessment & Plan (1) Cellulitis of both lower extremities: - Presented with bilat LE cellulitis; wound culture from ER on 08/07 +Morganella morganii, resistant to PO abx. - Has been afebrile, hemodynamically stable; no leukocytosis noted on labs. - Received Cefepime in the ER; will start Ertapenem 1 gm IV q24hr per sensitivities. - Blood cultures are pending. - Consult ID for input. - Wound care nurse consulted for evaluation. (2) Rheumatoid arthritis: - Will continue home Plaquenil, Leflunomide and Prednisone 7.5 mg daily. (3) HTN (hypertension): - Continue home Losartan 75 mg daily. - BP has been elevated in the ER -- will order Hydralazine 10 mg IV q6hr prn. (4) Hyperlipidemia: - Continue pravastatin 20 mg daily as prescribed. (5) Obesity: - BMI 42.4. - Encourage weight loss and exercise. (6) Anemia: - Has chronic anemia; previously microcytic on labs, MCV is now WNL. - No outpatient records are available; will order iron panel in the AM. - Monitor CBC qAM. (7) Hyperglycemia: - Blood glucose elevated on previous lab work. - Will order hemoglobin A1C in the AM. - Gluc checks ac/hs -- will start SSI coverage if needed. (8) CKD (chronic kidney disease) stage 3, GFR 30-59 ml/min: - Renally dose all meds. - Monitor renal function daily. (9) DVT prophylaxis: - SCDs; Heparin. Dispo: Admit to med/surg for IV abx in setting of bilat LE cellulitis. History of Present Illness Chief Complaint: Cellulitis Primary Care Provider: KARI Coughlin Ms. Villalpando is a 72 year old female with past medical history of obesity, rheumatoid arthritis, hypertension, hyperlipidemia who presented with bilateral lower extremity cellulitis. Pt. presented to the ER on 08/06/18 with bilateral lower extremity cellulitis. Wound culture was obtained and she was discharged home with instructions to complete a 7 day course of Keflex/Doxycycline. Pt. states redness/warmth of lower extremities did not improve with PO abx. She has two open lesions on LLE, one lesion at left lateral malleolus region and one lesion near distal 3-5th distal metatarsal area. She has been applying dressing to both lesions and noticed a clear discharge. Legs are very erythematous -- redness starts below knee and extends to ankles. She received a call from a pharmacist at [facility] who instructed her to come to the ER immediately for IV abx administration. Denies increased edema, LE pain, fever/chills, chest pain, SOB at home. Denies abd pain, N/V, diarrhea or constipation, dysuria prior to admission. Wound culture was positive for Morganella morganii, resistant to PO abx. She received a dose of Cefepime IV in the ER. Blood cultures x 2 are pending. Pt. will be admitted for IV abx per wound culture sensitivities. Allergies Allergy/AdvReac Type Severity Reaction Status Date / Time oxycodone Allergy Unknown NAUSEA Unverified 08/10/18 17:44 Sulfa (Sulfonamide Allergy Unknown RASH Unverified 08/10/18 17:44 Antibiotics) Home Medications Home Medications Medication Instructions Recorded Confirmed Type aspirin [Ecotrin] 325 mg PO QAM 08/06/18 08/10/18 History hydroxychloroquine 400 mg PO QAM 08/06/18 08/10/18 History leflunomide 20 mg PO QAM 08/06/18 08/10/18 History losartan 75 mg PO QAM 08/06/18 08/10/18 History pravastatin 20 mg PO QPM 08/06/18 08/10/18 History prednisone 2.5 mg PO QAM 08/06/18 08/10/18 History prednisone 5 mg PO QAM 08/06/18 08/10/18 History cephalexin [Keflex] 500 mg PO BID 7 Days #14 cap 08/07/18 08/10/18 Rx doxycycline hyclate 100 mg PO BID 7 Days #14 tab 08/07/18 08/10/18 Rx Past Med/Surg History Medical History Rheumatoid arthritis (Chronic) HLD (hyperlipidemia) HTN (hypertension) Obesity Surgical History History of total hip replacement Total knee replacement status Family History Father Non Hodgkin's lymphoma Mother Coronary heart disease Other No significant family history Social History Preferred Language: Irish Communication Ability: Effective 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 Other Information That Helps Us Care for You: No Feels Safe at Home: Yes Safety Concerns: Feels Safe At This Time Smoking Status: Never smoker Do You Dip or Chew Tobacco: No Second Hand Exposure: No Tobacco Cessation Education Requested by Patient: No Hx Alcohol Use: No Hx Substance Use: No Review of Systems Review of Systems: All systems reviewed & are unremarkable except as noted in HPI & below Constitutional: no fever, no chills, no fatigue, no weakness and no anorexia Ear, Nose, Mouth, Throat: no nasal congestion, no post nasal drip, no facial pain, no sinus pain/pressure and no sore throat Respiratory: no cough, no dyspnea and no wheezing Cardiovascular: no chest pain, no palpitations, no lightheadedness, no syncope and no edema Gastrointestinal: no abdominal pain, no nausea, no vomiting, no constipation and no diarrhea/loose stools Genitourinary: no dysuria, no difficulty urinating and no hematuria Musculoskeletal: no back pain, no joint pain, no myalgia and no body aches Integumentary: + non-healing lesions, + sores, + erythema, + dry skin and + change in skin color; no bleeding lesions Neurologic: no dizziness, no headache(s) and no confusion Hematologic / Lymphatic: no easy bleeding and no easy bruising Allergy / Immunological: no rash Physical Exam Physical Exam: General: Resting comfortably in no apparent distress HEENT: NC/AT; PERRLA with EOMI; [place] conjunctiva, MMM. No erythema of posterior pharynx Neck: Supple and nontender Cardiac: RRR w/o murmurs, gallops or rubs Lungs: CTA bilaterally; No rhonchi, wheezing, or rales Abdomen: Bowel normoactive X 4; Nontender to palpation Rectal: Deferred : Deferred Back: NO spinous tenderness Extremities: Warm. +2 bilat non pitting chronic LE edema. Neuro: No focal weakness Skin: Bilateral erythema with dry/scaling skin extending from below knee to the ankles. Erythema with scaling also noted on dorsal surface of bilateral feet, open area with clear drainage on left lateral malleolus and distal left 3-5th metatarsal. Results & Data Vital Signs (Past 12 Hours) Vital Signs Temp Pulse Pulse Resp BP Pulse Ox 08/10/18 16:27 88 20 96 08/10/18 16:11 36.8 C 78 20 199/71 H 95 Code Status & VTE Plan Code Status DNR/DNI Supervising Physician Co-Signing Physician Notes Attending Admit Note & Attestation - Pt seen/examined, chart reviewed, care plan d/w SANDRITA Thacker. I agree w/ the wood components of her admission documentation. 72yo female with steroid-dependent RA and morbid obesity (BMI 42) who presents with b/l LE cellulitis. Seen in the ER 4 days prior for same issue. D/c home on doxy and keflex. Had wound swab culture performed during the prior ER visit - that grew MDR morganella and coag neg staph. She was called at home and advised to come to the ER. She reports marginal improvement in her cellulitis with prior antibiotics. PMH, PSH, allergies, meds, sochx, famhx, ros - reviewed gen - NAD, morbidly obese mouth - MMM heart - irregular, s1, s2 lungs - CTA b/l abd - soft NT ND BS+ ext - 2-3+ edema b/l skin - severe dry skin with cracking from the knees down to the feet; there are several areas of very shallow ulceration on the left foot and ankle along with other locations; there is mild erythema on the shins extending from mid-calf down to the foot; no abscess in any location A/P: b/l LE cellulitis - probably 2nd to coag negative staph and morganella morganii appears to have chronic lymphedema b/l morbid obesity BMI 42 steroid-dependent RA CKD stage 3 HTN ertapenem and IV vancomycin cont prednisone and home meds for RA ID consultation anemia w/u other plans per Ms. Alysha Hammer MD
[2018-08-10 18:03] LABS: Albumin Level 3.1 gm/dl (3.4-5.0); BUN Creatinine Ratio 18.3 (10-20); Calcium 8.8 mg/dl (8.5-10.1); Creatinine Clr Calc Pharmacy 45.8 ml/min; Est GFR (Non-African American) 37.1; Potassium 4.2 mmol/L (3.5-5.1)
[2018-08-10 18:05] LABS: Bilirubin,Total 0.2 mg/dl (0.2-1); Total Protein 6.1 gm/dl (6.4-8.2)
[2018-08-10] MEDS ORDERED: HydrALAZINE HCL 20 MG/ML VIAL IV PRN (19:51)
[2018-08-10] MEDS ORDERED: EUCERIN CR 120 GM JAR EXT PRN (19:51)
[2018-08-10] MEDS ORDERED: VANCOMYCIN CONSULT ACTIVE PRN (20:26)
[2018-08-10] MEDS ORDERED: VANCOMYCIN HCL 1,000 MG in SODIUM CHLORIDE 0.9% 250 ML IV SCH (20:30)
[2018-08-10] MEDS ORDERED: VANCOMYCIN HCL 2,500 MG in SODIUM CHLORIDE 0.9% 500 ML IV SCH (21:00)
[2018-08-10] MEDS: ERTAPENEM SODIUM 1,000 MG in SODIUM CHLORIDE 0.9% 50 ML IV SCH (21:16)
[2018-08-10] MEDS: PRAVASTATIN SOD 20 MG TAB PO SCH (21:24)
[2018-08-10 22:00] LABS: Partial Thromboplastin Ratio 0.9; Partial Thromboplastin Time 25.1 Seconds (21.0-31.0); Prothrombin Time 10.3 Seconds (9.0-12.0)
--- NOTE | 2018-08-10 23:16 | Emergency Department Note ---
Entered by Viajya Miller acting as a scribe for History of Present Illness General Chief complaint: Referred by Doctor Stated complaint: DOCTOR REFFERED Source: patient Mode of arrival: ambulatory Limitations: no limitations History of Present Illness Provider complaint: cellulitis Onset (ago): day(s) 9 Location: lower extremity Pain Consistency: + other (persistent) Quality: + other (cellulitis) Associated symptoms: + denies other symptoms (aches); no fever/chills and no nausea/vomiting The patient is a 72 year old female who presents to the Emergency Room with complaints of bilateral lower extremity cellulitis that began 9 days ago. The patient reports that she was evaluated at this hospital last Thursday for bilateral leg redness and burning that she had been experiencing for 5 days. She states that during her stay, cultures were obtained and that she was contacted today and referred to the ER for further treatment. She denies any recent fevers , chills, nausea, vomiting or aches. She also denies a history of diabetes. Home Medications Home Medications Medication Instructions Recorded Confirmed Type aspirin [Ecotrin] 325 mg PO QAM 08/06/18 08/10/18 History hydroxychloroquine 400 mg PO QAM 08/06/18 08/10/18 History leflunomide 20 mg PO QAM 08/06/18 08/10/18 History losartan 75 mg PO QAM 08/06/18 08/10/18 History pravastatin 20 mg PO QPM 08/06/18 08/10/18 History prednisone 2.5 mg PO QAM 08/06/18 08/10/18 History prednisone 5 mg PO QAM 08/06/18 08/10/18 History cephalexin [Keflex] 500 mg PO BID 7 Days #14 cap 08/07/18 08/10/18 Rx doxycycline hyclate 100 mg PO BID 7 Days #14 tab 08/07/18 08/10/18 Rx Allergies Allergy/AdvReac Type Severity Reaction Status Date / Time oxycodone Allergy Unknown NAUSEA Unverified 08/10/18 17:44 Sulfa (Sulfonamide Allergy Unknown RASH Unverified 08/10/18 17:44 Antibiotics) Past Med/Surg History Medical History Rheumatoid arthritis (Chronic) HLD (hyperlipidemia) HTN (hypertension) Obesity Surgical History History of total hip replacement Total knee replacement status Family History Father Non Hodgkin's lymphoma Mother Coronary heart disease Other No significant family history Social History Preferred Language: Puerto Rican Communication Ability: Effective 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 Other Information That Helps Us Care for You: No Feels Safe at Home: Yes Safety Concerns: Feels Safe At This Time Smoking Status: Never smoker Do You Dip or Chew Tobacco: No Second Hand Exposure: No Tobacco Cessation Education Requested by Patient: No Hx Alcohol Use: No Hx Substance Use: No Review of Systems See HPI for pertinent positives & negatives. and A total of 10 systems reviewed and were otherwise negative Physical Exam Vital Signs Vital Signs - 24 hr 08/10/18 16:11 08/10/18 16:27 08/10/18 18:24 Temperature 36.8 C Temperature Source Oral Sepsis Recent Fever Within 48 Hours No Sepsis New/Unexplained Change in Mental Status No Sepsis Action Taken by Nursing No Action Required Pulse Rate 78 Pulse Rate [Finger] 88 80 Respiratory Rate 20 20 18 Respiratory Effort / Characteristics Non-Labored Spontaneous Respiratory Depth Normal Respiratory Pattern Blood Pressure 199/71 H Blood Pressure [Left Arm] 167/87 H Blood Pressure Mean 113 Blood Pressure Mean [Left Arm] 113 Blood Pressure Position Sitting Blood Pressure Position [Left Arm] Pulse Oximetry 95 96 96 Oxygen Delivery Method Room Air Room Air Room Air 08/10/18 19:10 08/10/18 20:08 Temperature 36.7 C 36.7 C Temperature Source Oral Oral Sepsis Recent Fever Within 48 Hours Sepsis New/Unexplained Change in Mental Status Sepsis Action Taken by Nursing Pulse Rate Pulse Rate [Finger] 67 67 Respiratory Rate 18 18 Respiratory Effort / Characteristics Non-Labored Spontaneous Non-Labored Spontaneous Respiratory Depth Normal Normal Respiratory Pattern Regular Regular Blood Pressure Blood Pressure [Left Arm] 174/81 H 174/81 H Blood Pressure Mean Blood Pressure Mean [Left Arm] 112 112 Blood Pressure Position Blood Pressure Position [Left Arm] Lying Lying Pulse Oximetry 97 97 Oxygen Delivery Method Room Air Room Air Constitutional: Vital signs reviewed. Eyes: Pupils are equal round reactive to light. Conjunctiva are noninjected. ENT: Pharynx is clear without erythema or exudate. Mucous membranes are moist. Neck supple without meningeal signs. Respiratory: Clear to auscultation bilaterally. Breath sounds are equal bilaterally. Cardiovascular: Regular rate and rhythm. No rubs or gallops. GI: Soft, nondistended and nontender. Bowel sounds are present. Musculoskeletal: Very dry erythematous skin from the upper calf to the toes bilaterally with small ulcerations to the left foot over the anterior foot as well as near the ankle. Integumentary: No cyanosis. As above. Neurological: The patient is awake and alert. No focal deficits. Psychiatric: Normal affect. Course 1641: The patient was evaluated in room A12B and a complete history and physical examination were performed. 1652: I reviewed the patient's case with Dr. Escamilla. She will evaluate the patient for further management. Administered Medications Ertapenem 1,000 mg/ Sodium (Chloride) 60 mls @ 100 mls/hr IV Q24H FRANSISCO Stop: 08/20/18 20:59 Last Infusion: 08/10/18 21:59 Dose: 0 mls/hr Documented by: [id number] Admin: 08/10/18 21:16 Dose: 100 mls/hr Documented by: [id number] Vancomycin HCl 2,500 mg/ (Sodium Chloride) 550 mls @ 200 mls/hr IV TODAY@2100 FRANSISCO Stop: 08/10/18 23:44 Last Admin: 08/10/18 21:59 Dose: 200 mls/hr Documented by: [id number] Pravastatin Sodium (Pravachol) 20 mg PO QPM FRANSISCO Stop: 09/09/18 20:59 Last Admin: 08/10/18 21:24 Dose: 20 mg Documented by: [id number] Discontinued Medications Cefepime HCl (Maxipime) 2,000 mg in 12.5 mls @ 3.125 mls/min IV NOW STA Stop: 08/10/18 16:51 Last Admin: 08/10/18 17:25 Dose: 3.125 mls/min Documented by: [id number] Medical Decision Making Differential Diagnosis Differential diagnosis includes: bacteremia, cellulitis, outpatient treatment failure, DVT, and immunocompromise. Medical Records Attestation: I reviewed the patient's medical records. I did perform a limited focused review of portions of the patient's old chart on the electronic medical record. The patient was seen at this hospital on August 06 for bilateral lower extremity cellulitis and was discharged on Keflex and doxy. She had a wound culture of her left leg which gre out morganella and coag negative staph. Home Medications Current Medication List: was personally reviewed by me Laboratory Data Attestation: I reviewed the patient's lab results. Result diagrams: 08/10/18 17:05 08/10/18 17:05 Lab Results 08/10/18 08/10/18 08/10/18 Range/Units 17:05 17:05 20:13 WBC 6.10 (4.8-10.8) K/uL RBC 3.90 L (4.2-5.4) M/uL Hgb 10.0 L (12.0-16.0) g/dL Hct 33.5 L (37-47) % MCV 85.9 (80-100) fL MCH 25.6 (25-34) pg MCHC 29.9 L (32-36) g/dL RDW Std Deviation 48.7 H (36.4-46.3) fL RDW Coeff of Saadia 15.5 H (11.5-14.5) % Plt Count 139 (130-400) K/uL MPV 9.7 (7.4-10.4) fL Immature Gran % (Auto) 0.3 % Neut % (Auto) 82.9 % Lymph % (Auto) 7.4 % [place] % (Auto) 5.7 % Eos % (Auto) 3.4 % Baso % (Auto) 0.3 % Immature Gran # (Auto) 0.02 (0.00-0.02) K/uL Neut # (Auto) 5.05 (1.4-6.5) K/uL Lymph # (Auto) 0.45 L (1.2-3.4) K/uL [place] # (Auto) 0.35 (0.11-0.59) K/uL Eos # (Auto) 0.21 (0-0.5) K/uL Baso # (Auto) 0.02 (0-0.2) K/uL PT (9.0-12.0) Seconds INR (0.9-1.1) APTT (21.0-31.0) Seconds PTT Ratio Sodium 145 (136-145) mmol/L Potassium 4.2 (3.5-5.1) mmol/L Chloride 114 H (98-107) mmol/L Carbon Dioxide 27 (21-32) mmol/L Anion Gap 4.0 (3-11) BUN 26 H (7-18) mg/dl Creatinine 1.41 H (0.6-1.2) mg/dl Est Cr Clr Drug Dosing 45.8 ml/min Est GFR ( Amer) 43.0 Est GFR (Non-Af Amer) 37.1 BUN/Creatinine Ratio 18.3 (10-20) Glucose 110 H (70-99) mg/dl POC Glucose 106 H (70-99) Calcium 8.8 (8.5-10.1) mg/dl Total Bilirubin 0.2 (0.2-1) mg/dl AST 13 L (15-37) U/L ALT 17 (12-78) U/L Alkaline Phosphatase 91 (45-117) U/L Total Protein 6.1 L (6.4-8.2) gm/dl Albumin 3.1 L (3.4-5.0) gm/dl Globulin 3.0 (2.5-4.0) gm/dl Albumin/Globulin Ratio 1.0 (0.9-2) 08/10/ Range/Units 21:21 WBC (4.8-10.8) K/uL RBC (4.2-5.4) M/uL Hgb (12.0-16.0) g/dL Hct (37-47) % MCV (80-100) fL MCH (25-34) pg MCHC (32-36) g/dL RDW Std Deviation (36.4-46.3) fL RDW Coeff of Saadia (11.5-14.5) % Plt Count (130-400) K/uL MPV (7.4-10.4) fL Immature Gran % (Auto) % Neut % (Auto) % Lymph % (Auto) % [place] % (Auto) % Eos % (Auto) % Baso % (Auto) % Immature Gran # (Auto) (0.00-0.02) K/uL Neut # (Auto) (1.4-6.5) K/uL Lymph # (Auto) (1.2-3.4) K/uL [place] # (Auto) (0.11-0.59) K/uL Eos # (Auto) (0-0.5) K/uL Baso # (Auto) (0-0.2) K/uL PT 10.3 (9.0-12.0) Seconds INR 1.0 (0.9-1.1) APTT 25.1 (21.0-31.0) Seconds PTT Ratio 0.9 Sodium (136-145) mmol/L Potassium (3.5-5.1) mmol/L Chloride (98-107) mmol/L Carbon Dioxide (21-32) mmol/L Anion Gap (3-11) BUN (7-18) mg/dl Creatinine (0.6-1.2) mg/dl Est Cr Clr Drug Dosing ml/min Est GFR ( Amer) Est GFR (Non-Af Amer) BUN/Creatinine Ratio (10-20) Glucose (70-99) mg/dl POC Glucose (70-99) Calcium (8.5-10.1) mg/dl Total Bilirubin (0.2-1) mg/dl AST (15-37) U/L ALT (12-78) U/L Alkaline Phosphatase (45-117) U/L Total Protein (6.4-8.2) gm/dl Albumin (3.4-5.0) gm/dl Globulin (2.5-4.0) gm/dl Albumin/Globulin Ratio (0.9-2) Blood Pressure Blood Pressure Findings: Elevated blood pressure Blood Pressure Disposition: further management by hospitalist MDM Narrative I did evaluate the patient as noted above. The patient is presenting with persistent cellulitis to her lower legs. She is immunocompromised due to her rheumatoid arthritis. She is on leflunomide as well as prednisone. IV access was established. Blood cultures were obtained. I did order cefepime 2 g for the patient IV. I did order and review the patient's blood work as noted in the electronic medical record. Her white blood cell count is not elevated. Creatinine is elevated. I did discuss the case with the hospitalist and community case manager. The patient's sensitivities require IV antibiotics. Impression & Plan Cellulitis of both lower extremities, Failure of outpatient treatment Discharge Plan Visit Data *Final* Discharge Date/Time: 08/10/18 18:25 Chief Complaint: Referred by Doctor Stated Complaint: DOCTOR REFFERED ED Provider: Maulik Boateng Discharge Problem: Cellulitis of both lower extremities, Failure of outpatient treatment Patient Disposition: Admitted As Inpatient Discharge Instructions Interventions: ED Discharge Assessment Last Done: 08/10/18 18:25 The scribe's documentation has been prepared under my direction and personally reviewed by me in its entirety. I confirm that the note above accurately reflec ts all work, treatment, procedures, and medical decision making performed by me.
[2018-08-11 07:52] LABS: Hematocrit (blood only) 31.7 % (37-47); Hemoglobin 9.5 g/dL (12.0-16.0); Mean Corpuscular Volume 84.3 fL (80-100); Mean Platelet Volume 9.4 fL (7.4-10.4); Platelet Count 127 K/uL (130-400); RDW Coefficient of Variation 15.6 % (11.5-14.5); RDW Standard Deviation 47.8 fL (36.4-46.3); Red Blood Count 3.76 M/uL (4.2-5.4); White Blood Count 4.63 K/uL (4.8-10.8)
[2018-08-11 08:18] LABS: BUN Creatinine Ratio 18.7 (10-20); Calcium 8.7 mg/dl (8.5-10.1); Creatinine Clr Calc Pharmacy 48.9 ml/min; Est GFR (African American) 46.6; Est GFR (Non-African American) 40.2; Potassium 3.9 mmol/L (3.5-5.1)
[2018-08-11 08:24] LABS: Ferritin 27.8 ng/ml (8-388)
[2018-08-11 08:32] LABS: Estimated Average Glucose 103 mg/dl; Hemoglobin A1C 5.2 % (4.5-5.6)
[2018-08-11] MEDS: predniSONE 5 MG TAB PO SCH (08:41)
[2018-08-11] MEDS: HYDROXYCHLOROQUINE SULFATE 200 MG TAB PO SCH (08:42)
[2018-08-11] MEDS: LOSARTAN POTASSIUM 50 MG TAB PO SCH (08:43)
[2018-08-11] MEDS: LEFLUNOMIDE 10 MG TAB PO SCH (08:43)
[2018-08-11] MEDS: ASPIRIN 325 MG ECTAB PO SCH (08:44)
[2018-08-11] MEDS: HEPARIN SOD 5,000 UNIT/0.5 ML VIAL SQ SCH ×2 (08:45→20:43)
--- NOTE | 2018-08-11 10:44 | Infectious Disease Consult ---
Date of Consultation August 11, 2018 Assessment & Plan (1) Cellulitis of left lower leg: Patient with bilateral lower extremity cellulitis in the setting of chronic venous stasis disease, lymphedema, with highly resistant Morganella and culture. Current treatment with vancomycin and ertapenem appropriate, with length of IV antibiotics to be determined by clinical response. Will follow. (2) Cellulitis of right lower leg: (3) Bacterial infection due to Morganella morganii: History of Present Illness Reason for Consultation: Leg cellulitis Attending Physician: Galina Cleaning MD History of Present Illness 72-year-old female with history of hypertension, rheumatoid arthritis, chronic lower extremity edema treated with compression therapy, who was admitted to the hospital with approximately 1 week history of progressively worsening redness and swelling of both lower legs along with ulcerations and drainage. She was seen earlier in the emergency room and sent home on oral antibiotics, but was called to return when culture grew a relatively resistant Morganella species. She is now been started on vancomycin and ertapenem, tolerating without apparent difficulty, and has noted some preliminary improvement in the redness. She denies any significant fever, denies any pain. Allergies Allergy/AdvReac Type Severity Reaction Status Date / Time oxycodone Allergy Unknown NAUSEA Unverified 08/10/18 17:44 Sulfa (Sulfonamide Allergy Unknown RASH Unverified 08/10/18 17:44 Antibiotics) Home Medications Home Medications Medication Instructions Recorded Confirmed Type aspirin [Ecotrin] 325 mg PO QAM 08/06/18 08/10/18 History hydroxychloroquine 400 mg PO QAM 08/06/18 08/10/18 History leflunomide 20 mg PO QAM 08/06/18 08/10/18 History losartan 75 mg PO QAM 08/06/18 08/10/18 History pravastatin 20 mg PO QPM 08/06/18 08/10/18 History prednisone 2.5 mg PO QAM 08/06/18 08/10/18 History prednisone 5 mg PO QAM 08/06/18 08/10/18 History cephalexin [Keflex] 500 mg PO BID 7 Days #14 cap 08/07/18 08/10/18 Rx doxycycline hyclate 100 mg PO BID 7 Days #14 tab 08/07/18 08/10/18 Rx Patient History Medical History Rheumatoid arthritis (Chronic) HLD (hyperlipidemia) HTN (hypertension) Obesity Surgical History History of total hip replacement Total knee replacement status Family History Father Non Hodgkin's lymphoma Mother Coronary heart disease Other No significant family history Social History Preferred Language: Malian Communication Ability: Effective 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 Other Information That Helps Us Care for You: No Feels Safe at Home: Yes Safety Concerns: Feels Safe At This Time Smoking Status: Never smoker Do You Dip or Chew Tobacco: No Second Hand Exposure: No Tobacco Cessation Education Requested by Patient: No Hx Alcohol Use: No Hx Substance Use: No Review of Systems Review of Systems: All systems reviewed & are unremarkable except as noted in HPI & below Physical Exam Constitutional: WD/WN, vitals as above + obese and comfortable; no acute distress Eyes: PERRL, conjunctivae normal, anicteric sclerae ENMT: external ear and nose normal, oropharynx normal Neck: trachea midline, no thyromegaly neck nontender Respiratory: normal respiratory effort, lungs clear to auscultation normal percussion; does not use accessory muscles Cardiovascular: Rate/Rhythm: regular rate and regular rhythm Heart Sounds: normal S1 and normal S2; no gallop, no murmur and no cardiac rub Vessels: normal peripheral pulses; no JVD Gastrointestinal (Abdomen): normal bowel sounds, soft, nontender, no hepatosplenomegaly Musculoskeletal: no cyanosis or clubbing, extremities motor strength 5/5 Spine: thoracic spine normal to inspection and lumbar spine normal to inspection; no cervical spinal tenderness Skin: normal turgor; no rashes Bilateral chronic venous stasis changes of both lower legs, with erythema from below the knee to the foot. Multiple healed ulcerations. Neurologic: patellar DTR's 2+ bilat, sensation intact no focal motor deficits Psychiatric: A+Ox3, euthymic affect Orientation: cooperative Lymphatic: no cervical or axillary lymphadenopathy no inguinal lymphadenopathy Results & Data Vital Signs (Past 12 Hours) Vital Signs Temp Pulse Resp BP Pulse Ox 08/11/18 07:13 36.4 C L 58 L 16 147/62 H 96 08/10/18 23:00 36.7 C 65 20 148/82 H 97 Laboratory Results Short CBC 08/10/18 08/11/18 Range/Units 17:05 07:39 WBC 6.10 4.63 L (4.8-10.8) K/uL Hgb 10.0 L 9.5 L (12.0-16.0) g/dL Hct 33.5 L 31.7 L (37-47) % Plt Count 139 127 L (130-400) K/uL BMP 08/10/18 08/11/18 17:05 07:39 Sodium 145 148 H Potassium 4.2 3.9 Chloride 114 H 117 H Carbon Dioxide 27 26 BUN 26 H 25 H Creatinine 1.41 H 1.32 H Glucose 110 H 79 Calcium 8.8 8.7 Liver Function 08/10/18 Range/Units 17:05 Total Bilirubin 0.2 (0.2-1) mg/dl AST 13 L (15-37) U/L ALT 17 (12-78) U/L Alkaline Phosphatase 91 (45-117) U/L Albumin 3.1 L (3.4-5.0) gm/dl Diagnostic Findings 08/07/18 Received: 08/07/[address]: Taj Leung M.D. Copy To: Svetlana Rosales CRNP Self, Referred Source: Leg,Left OV Order: Ordered: Surf Wnd Cul/Sm Procedure Result Verified Site Gram Stain Final 08/07/18 Gram Stain Result Rare Gram Positive Bacilli Rare Gram Negative Bacilli No WBCs Seen Surface Wound Culture Final 08/10/18130 Organism 1 Morganella morganii Quantity Moderate Sens Sensitivities to Follow +MixWound Plus Moderate Counts of Probable Skin Janett Organism 2 Coag negative Staphylococcus Quantity Few Sens No Sensitivities to Follow M morganii RX M.I.C. --- --------- Amikacin S <=16 Amp/Sul R >16/8 Cefepime S <=4 Cefotaxime I 32 Cefoxitin R >16 Ceftriaxone R 32 Ciprofloxacin R >2 Ertapenem S <=1 Gentamicin S <=4 Imipenem I 2 Levofloxacin R >4 Tobramycin S <=4 Trimeth/Sulfa R > Pip/Tazo S <=16 S = SENSITIVE I = INTERMEDIATE R = RESISTANT Name: SARAH WOLFE : 1945 PAGE 1 Printed: 08/11/18 104
--- NOTE | 2018-08-11 14:46 | Hospitalist Progress Note ---
Date of Service August 11, 2018 Assessment & Plan (1) Cellulitis of both lower extremities: - Presented with bilat LE cellulitis; wound culture from ER on 08/07 +Morganella morganii resistant to PO abx and Coag neg Staph. - Received Cefepime in the ER; continue Ertapenem 1 gm IV q24hr per sen sitivities & Vancomycin IV for gram pos coverage. - Blood cultures are pending. - Arterial duplex pending; BOOKER left leg per wound nurse was 0.76. - Consulted ID, appreciate input. - Wound care nurse following, appreciate input. Eucerin cream applied q6hr for dry/scaling skin. (2) Rheumatoid arthritis: - Continue home Plaquenil, Leflunomide and Prednisone 7.5 mg daily. (3) HTN (hypertension): - Continue home Losartan 75 mg daily. - Hydralazine 10 mg IV q6hr prn. (4) Hyperlipidemia: - Continue pravastatin 20 mg daily as prescribed. (5) Obesity: - BMI 42.4. - Encourage weight loss and exercise. (6) Anemia: - Previously microcytic on labs. 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 - Will start Ferrous sulfate 325 mg BID along with Senokot S qAM to prevent constipation. - Monitor CBC qAM. - Will need to discuss GI work up - if not completed yet, will need to be done as outpt. (7) Hyperglycemia: - Blood glucose elevated on previous lab work. - Hgb A1C was 5.2 - Will d/c gluc checks. (8) CKD (chronic kidney disease) stage 3, GFR 30-59 ml/min: - Renally dose all meds. - Monitor renal function daily. (9) DVT prophylaxis: - SCDs; Heparin. Dispo: Admit to med/surg, IV abx in setting of bilat LE cellulitis. Pt. may require outpt IV abx for prolonged course. PT/OT ordered. Supervising Physician Co-Signing Physician Notes PA Supervision Note: I did not personally see or examine the patient today, but I verified all wood points of SANDRITA Encarnacion's assessment and plan with the following exceptions/additions: None Subjective Pt. is stable overall. She has mild pain in left foot, no change in lesion. Wound nurse consulted, appreciate input. Pt. does not want heparin injections for ppx -- discussed benefits of DVT ppx. She also would like gluc checks to be discontinued. Pt. is very anxious about multiple issues today. Review of Systems Review of Systems: All systems reviewed & are unremarkable except as noted in HPI & below Constitutional: no fever, no chills, no fatigue, no weakness and no anorexia Respiratory: no cough and no dyspnea Cardiovascular: no chest pain, no palpitations, no lightheadedness and no edema Gastrointestinal: no abdominal pain, no nausea, no vomiting, no constipation and no diarrhea/loose stools Genitourinary: no difficulty urinating Musculoskeletal: no back pain and no joint pain Integumentary: + non-healing lesions (Left foot ), + erythema (Left foot ) and + dry skin (Bilat LE) Psychiatric: + anxiety Hematologic / Lymphatic: no easy bleeding and no easy bruising Allergy / Immunological: no rash Physical Exam Physical Exam: General: Resting comfortably, in mild distress due to multiple issues. HEENT: NC/AT; PERRLA with EOMI; [place] conjunctiva, MMM. No erythema of posterior pharynx Neck: Supple and nontender Cardiac: RRR Lungs: CTA bilaterally; No rhonchi, wheezing, or rales Abdomen: Bowel normoactive X 4; Nontender to palpation Extremities: Warm. +2 bilat non pitting chronic LE edema. Neuro: No focal weakness Skin: Bilateral erythema with dry/scaling skin extending from below knee to the ankles. No specific open areas with drainage noted on exam today, specifically on left foot. Results & Data Vital Signs (Past 12 Hours) Vital Signs Temp Pulse Resp BP Pulse Ox 08/11/18 07:13 36.4 C L 58 L 16 147/62 H 96 Laboratory Results 08/11/18 08/11/18 08/11/18 Range/Units 11:50 07:58 07:39 WBC (4.8-10.8) K/uL RBC (4.2-5.4) M/uL Hgb (12.0-16.0) g/dL Hct (37-47) % MCV (80-100) fL MCH (25-34) pg MCHC (32-36) g/dL RDW Std Deviation (36.4-46.3) fL RDW Coeff of Saadia (11.5-14.5) % Plt Count (130-400) K/uL MPV (7.4-10.4) fL Immature Gran % (Auto) % Neut % (Auto) % Lymph % (Auto) % [place] % (Auto) % Eos % (Auto) % Baso % (Auto) % Immature Gran # (Auto) (0.00-0.02) K/uL Neut # (Auto) (1.4-6.5) K/uL Lymph # (Auto) (1.2-3.4) K/uL [place] # (Auto) (0.11-0.59) K/uL Eos # (Auto) (0-0.5) K/uL Baso # (Auto) (0-0.2) K/uL PT (9.0-12.0) Seconds INR (0.9-1.1) APTT (21.0-31.0) Seconds PTT Ratio Sodium (136-145) mmol/L Potassium (3.5-5.1) mmol/L Chloride (98-107) mmol/L Carbon Dioxide (21-32) mmol/L Anion Gap (3-11) BUN (7-18) mg/dl Creatinine (0.6-1.2) mg/dl Est Cr Clr Drug Dosing ml/min Est GFR ( Amer) Est GFR (Non-Af Amer) BUN/Creatinine Ratio (10-20) Glucose (70-99) mg/dl POC Glucose 101 H 82 (70-99) Estimat Average Glucose 103 mg/dl Hemoglobin A1c 5.2 (4.5-5.6) % Calcium (8.5-10.1) mg/dl Magnesium (1.8-2.4) mg/dl Iron (35-150) mcg/dl TIBC (250-450) mcg/dl Transferrin (200-360) mg/dl Transferrin % Sat (15-50) % Ferritin (8-388) ng/ml Total Bilirubin (0.2-1) mg/dl AST (15-37) U/L ALT (12-78) U/L Alkaline Phosphatase (45-117) U/L Total Protein (6.4-8.2) gm/dl Albumin (3.4-5.0) gm/dl Globulin (2.5-4.0) gm/dl Albumin/Globulin Ratio (0.9-2) 08/11/18 08/11/18 08/10/18 Range/Units 07:39 07:39 21:21 WBC 4.63 L (4.8-10.8) K/uL RBC 3.76 L (4.2-5.4) M/uL Hgb 9.5 L (12.0-16.0) g/dL Hct 31.7 L (37-47) % MCV 84.3 (80-100) fL MCH 25.3 (25-34) pg MCHC 30.0 L (32-36) g/dL RDW Std Deviation 47.8 H (36.4-46.3) fL RDW Coeff of Saadia 15.6 H (11.5-14.5) % Plt Count 127 L (130-400) K/uL MPV 9.4 (7.4-10.4) fL Immature Gran % (Auto) % Neut % (Auto) % Lymph % (Auto) % [place] % (Auto) % Eos % (Auto) % Baso % (Auto) % Immature Gran # (Auto) (0.00-0.02) K/uL Neut # (Auto) (1.4-6.5) K/uL Lymph # (Auto) (1.2-3.4) K/uL [place] # (Auto) (0.11-0.59) K/uL Eos # (Auto) (0-0.5) K/uL Baso # (Auto) (0-0.2) K/uL PT 10.3 (9.0-12.0) Seconds INR 1.0 (0.9-1.1) APTT 25.1 (21.0-31.0) Seconds PTT Ratio 0.9 Sodium 148 H (136-145) mmol/L Potassium 3.9 (3.5-5.1) mmol/L Chloride 117 H (98-107) mmol/L Carbon Dioxide 26 (21-32) mmol/L Anion Gap 5.0 (3-11) BUN 25 H (7-18) mg/dl Creatinine 1.32 H (0.6-1.2) mg/dl Est Cr Clr Drug Dosing 48.9 ml/min Est GFR ( Amer) 46.6 Est GFR (Non-Af Amer) 40.2 BUN/Creatinine Ratio 18.7 (10-20) Glucose 79 (70-99) mg/dl POC Glucose (70-99) Estimat Average Glucose mg/dl Hemoglobin A1c (4.5-5.6) % Calcium 8.7 (8.5-10.1) mg/dl Magnesium 2.0 (1.8-2.4) mg/dl Iron 39 (35-150) mcg/dl TIBC 216 L (250-450) mcg/dl Transferrin 166 L (200-360) mg/dl Transferrin % Sat 17 (15-50) % Ferritin 27.8 (8-388) ng/ml Total Bilirubin (0.2-1) mg/dl AST (15-37) U/L ALT (12-78) U/L Alkaline Phosphatase (45-117) U/L Total Protein (6.4-8.2) gm/dl Albumin (3.4-5.0) gm/dl Globulin (2.5-4.0) gm/dl Albumin/Globulin Ratio (0.9-2) 08/10/18 08/10/18 08/10/18 Range/Units 20:13 17:05 17:05 WBC 6.10 (4.8-10.8) K/uL RBC 3.90 L (4.2-5.4) M/uL Hgb 10.0 L (12.0-16.0) g/dL Hct 33.5 L (37-47) % MCV 85.9 (80-100) fL MCH 25.6 (25-34) pg MCHC 29.9 L (32-36) g/dL RDW Std Deviation 48.7 H (36.4-46.3) fL RDW Coeff of Saadia 15.5 H (11.5-14.5) % Plt Count 139 (130-400) K/uL MPV 9.7 (7.4-10.4) fL Immature Gran % (Auto) 0.3 % Neut % (Auto) 82.9 % Lymph % (Auto) 7.4 % [place] % (Auto) 5.7 % Eos % (Auto) 3.4 % Baso % (Auto) 0.3 % Immature Gran # (Auto) 0.02 (0.00-0.02) K/uL Neut # (Auto) 5.05 (1.4-6.5) K/uL Lymph # (Auto) 0.45 L (1.2-3.4) K/uL [place] # (Auto) 0.35 (0.11-0.59) K/uL Eos # (Auto) 0.21 (0-0.5) K/uL Baso # (Auto) 0.02 (0-0.2) K/uL PT (9.0-12.0) Seconds INR (0.9-1.1) APTT (21.0-31.0) Seconds PTT Ratio Sodium 145 (136-145) mmol/L Potassium 4.2 (3.5-5.1) mmol/L Chloride 114 H (98-107) mmol/L Carbon Dioxide 27 (21-32) mmol/L Anion Gap 4.0 (3-11) BUN 26 H (7-18) mg/dl Creatinine 1.41 H (0.6-1.2) mg/dl Est Cr Clr Drug Dosing 45.8 ml/min Est GFR ( Amer) 43.0 Est GFR (Non-Af Amer) 37.1 BUN/Creatinine Ratio 18.3 (10-20) Glucose 110 H (70-99) mg/dl POC Glucose 106 H (70-99) Estimat Average Glucose mg/dl Hemoglobin A1c (4.5-5.6) % Calcium 8.8 (8.5-10.1) mg/dl Magnesium (1.8-2.4) mg/dl Iron (35-150) mcg/dl TIBC (250-450) mcg/dl Transferrin (200-360) mg/dl Transferrin % Sat (15-50) % Ferritin (8-388) ng/ml Total Bilirubin 0.2 (0.2-1) mg/dl AST 13 L (15-37) U/L ALT 17 (12-78) U/L Alkaline Phosphatase 91 (45-117) U/L Total Protein 6.1 L (6.4-8.2) gm/dl Albumin 3.1 L (3.4-5.0) gm/dl Globulin 3.0 (2.5-4.0) gm/dl Albumin/Globulin Ratio 1.0 (0.9-2)
[2018-08-11] MEDS ORDERED: ONDANSETRON 4 MG TAB PO PRN (16:33)
[2018-08-11] MEDS ORDERED: ACETAMINOPHEN 325 MG TAB PO PRN (16:33)
[2018-08-11] MEDS ORDERED: VANCOMYCIN HCL 1,750 MG in SODIUM CHLORIDE 0.9% 500 ML IV SCH (19:00)
[2018-08-11] MEDS: FERROUS SULFATE 325 MG TAB PO SCH (19:02)
--- NOTE | 2018-08-11 19:47 | Ultrasound Report ---
US ARTERIAL DUPLEX BILATERAL LOWER EXTREMITY CLINICAL HISTORY: Lower extremity pain. COMPARISON STUDY: None. FINDINGS: The right ankle-brachial index measured with the posterior tibial artery was 0.9 and the do rsalis pedis artery was 1.1. The left ankle-brachial index measured with the dorsalis pedis artery wa s 0.9. A left posterior tibial artery was noncompressible. Calcified plaques seen throughout the bila teral large ovaries. No evidence for arterial occlusion. Monophasic waveforms seen throughout the rig ht lower extremity with areas of elevated peak systolic velocities within the right common femoral, r ight superficial femoral, and peroneal arteries. Therefore, this suggests areas of hemodynamically si gnificant stenosis. Biphasic waveforms and normal velocities within the left common femoral, superfic ial femoral, popliteal arteries. Monophasic waveforms seen within the left calf vessels without occlu kojo or significant stenosis. IMPRESSION: 1. No areas of arterial occlusion within the large extremities. 2. Monophasic waveforms seen throughout the right lower extremity suggests the possibility of stenosi s of the right iliac artery. . 3. Monophasic waveforms throughout the bilateral calf vessels consistent with diffuse atherosclerotic disease. 4. Areas of hemodynamically significant stenosis within the right common femoral, right superficial f emoral, and right peroneal arteries. Electronically signed by: Grabiel Varela M.D. 08/11/2018 7:45 PM
[2018-08-11] MEDS: EUCERIN CR 120 GM JAR EXT SCH (20:40)
[2018-08-11] MEDS: PRAVASTATIN SOD 20 MG TAB PO SCH (20:41)
[2018-08-11] MEDS: ERTAPENEM SODIUM 1,000 MG in SODIUM CHLORIDE 0.9% 50 ML IV SCH (22:37)
[2018-08-12 06:49] LABS: Hemoglobin 9.2 g/dL (12.0-16.0); Mean Corpuscular Hgb Conc 30.7 g/dL (32-36); Mean Corpuscular Volume 84.5 fL (80-100); Mean Platelet Volume 9.9 fL (7.4-10.4); Platelet Count 131 K/uL (130-400); RDW Coefficient of Variation 15.6 % (11.5-14.5); RDW Standard Deviation 48.5 fL (36.4-46.3); Red Blood Count 3.55 M/uL (4.2-5.4); White Blood Count 4.56 K/uL (4.8-10.8)
[2018-08-12 07:25] LABS: BUN Creatinine Ratio 20.2 (10-20); Calcium 8.3 mg/dl (8.5-10.1); Creatinine Clr Calc Pharmacy 43.9 ml/min; Est GFR (African American) 40.9; Est GFR (Non-African American) 35.3; Magnesium 1.9 mg/dl (1.8-2.4); Potassium 3.7 mmol/L (3.5-5.1)
[2018-08-12] MEDS: DOCUSATE SODIUM/SENNA 50/8.6MG TAB PO SCH (08:01)
[2018-08-12] MEDS: FERROUS SULFATE 325 MG TAB PO SCH ×2 (08:01→16:59)
[2018-08-12] MEDS: predniSONE 5 MG TAB PO SCH (08:01)
[2018-08-12] MEDS: HYDROXYCHLOROQUINE SULFATE 200 MG TAB PO SCH (08:01)
[2018-08-12] MEDS: LOSARTAN POTASSIUM 50 MG TAB PO SCH (08:02)
[2018-08-12] MEDS: ASPIRIN 325 MG ECTAB PO SCH (08:03)
[2018-08-12] MEDS: EUCERIN CR 120 GM JAR EXT SCH ×2 (08:03→20:02)
[2018-08-12] MEDS: LEFLUNOMIDE 10 MG TAB PO SCH (08:03)
[2018-08-12] MEDS: HEPARIN SOD 5,000 UNIT/0.5 ML VIAL SQ SCH ×2 (08:04→20:08)
--- NOTE | 2018-08-12 14:50 | Pharmacy Report ---
Pharmacy Abx Initial Consult - Date of Service August 12, 2018 - Pharmacy Dosing Scope Date of Consult: 08/10/18 Consultation requested by: Dr. Hammer Pharmacy is consulted to initiate vancomycin IV therapy, order appropriate labs and adjust drug dose/frequency. - Subjective The patient is a 72 year old F admitted on 08/10/18 18:02. - Objective Height: 5 ft 5 in Weight: 115.6 kg Vital Signs (Past 12hrs): Vital Signs Temp Pulse Resp BP Pulse Ox 08/12/18 06:56 36.8 C 49 L 18 136/56 L 96 Lab Results (24hrs): Laboratory Tests (24 Hours) 08/12/18 08/12/18 06:33 06:33 WBC 4.56 L Creatinine 1.47 H Est Cr Clr Drug Dosing 43.9 - Assessment & Plan Assessment 72 year old F admitted with b/l lower extremity cellulitis in the setting of chronic venous stasis and lymphedema. Patient evaluated in the ED on 08/06. Sent home on keflex and doxycycline. Surface wound culture from left leg growing MDR morganella and CONS. Pt on day 3 of vancomycin and ertapenem IV therapy. Plan 08/10: Vancomycin IV initiated * Loading dose: 2500 mg * Maintenance dose: 1750 mg IV (15 mg/kg) every 22 hours 08/12: * Due to h/o CKD with Scr trending upward and obesity (BMI 42), patient is at significant risk for drug accumulation. * I will empirically decrease dosage: 1500 mg (13 mg/kg) IV q22h * Trough level ordered for 08/13 @ 1430 * Will discuss need for ongoing MRSA coverage with Dr. Patricia Pharmacy will continue to follow and will adjust dose/frequency as necessary. Thank you.
--- NOTE | 2018-08-12 15:10 | Hospitalist Progress Note ---
Date of Service August 12, 2018 Assessment & Plan (1) Cellulitis of both lower extremities: - Presented with bilat LE cellulitis; wound culture from ER on 08/07 +Morganella morganii resistant to PO abx and Coag neg Staph. - Received Cefepime in the ER; continue Ertapenem 1 gm IV q24hr per sen sitivities & Vancomycin IV for gram pos coverage. - Blood cultures negative to date. - Consulted ID, appreciate input. - Wound care nurse following, appreciate input. Eucerin cream q6hr for dry/sc aling skin. (2) Peripheral arterial disease: - Arterial duplex showed areas of hemodynamically significant stenosis within right leg. - Will consult vascular surgery for evaluation. - Continue aspirin and statin as prescribed. (3) Rheumatoid arthritis: - Continue home Plaquenil, Leflunomide and Prednisone 7.5 mg daily. (4) HTN (hypertension): - Continue home Losartan 75 mg daily. - Hydralazine 10 mg IV q6hr prn. (5) Hyperlipidemia: - Continue pravastatin 20 mg daily as prescribed. (6) Obesity: - BMI 42.4. - Encourage weight loss and exercise. (7) Anemia: - Labs are consistent with mixed anemia (of chronic disease and iron deficiency anemia) - FOBT is pending. - Started Ferrous sulfate 325 mg BID along with Senokot S qAM to prevent constipation. - Will need GI work up as outpatient. (8) Hyperglycemia: - Blood glucose elevated on previous lab work. - Hgb A1C was 5.2 (9) CKD (chronic kidney disease) stage 3, GFR 30-59 ml/min: - Renally dose all meds. - Monitor renal function daily. (10) DVT prophylaxis: - SCDs; Heparin. Dispo: Admit to med/surg, IV abx in setting of bilat LE cellulitis. Will require IV abx as outpatient -- will continue to discuss discharge planning with patient as she is refusing rehab placement but does not feel comfortable managing IV abx at home. Supervising Physician Co-Signing Physician Notes SANDRITA Supervision Note: I did not personally see or examine the patient today, but I verified all wood points of SANDRITA Encarnacion's assessment and plan with the following excepti ons/additions: None Subjective Pt. is stable overall. Leg erythema improving, open areas on left foot now closed with no drainage noted. Denies pain in bilat LE, chest pain, SOB, N/V, constipation. Discussed home care with IV abx -- pt. does not feel comfortable managing IV abx at home but is refusing SNf placement. Will continue to discuss discharge planning. She will contact her family friend who is a healthcare provider to discuss help with home care. Review of Systems Review of Systems: All systems reviewed & are unremarkable except as noted in HPI & below Constitutional: no fever, no chills, no fatigue and no weakness Respiratory: no cough, no dyspnea, no dyspnea on exertion and no wheezing Cardiovascular: + edema; no chest pain and no palpitations Gastrointestinal: no abdominal pain, no nausea, no vomiting, no constipation and no diarrhea/loose stools Genitourinary: no difficulty urinating Musculoskeletal: no back pain and no joint pain Integumentary: + lesions, + erythema and + dry skin Hematologic / Lymphatic: no easy bleeding and no easy bruising Allergy / Immunological: no rash Physical Exam Physical Exam: General: Resting comfortably, in mild distress due to multiple issues. HEENT: NC/AT; PERRLA with EOMI; [place] conjunctiva, MMM. No erythema of posterior pharynx Neck: Supple and nontender Cardiac: RRR Lungs: CTA bilaterally; No rhonchi, wheezing, or rales Abdomen: Bowel normoactive X 4; Nontender to palpation Extremities: Warm. +2 bilat non pitting chronic LE edema. Neuro: No focal weakness Skin: Erythema improving, dry/scaling skin extending from below knee to the ankles. No open areas noted on left foot. Results & Data Vital Signs (Past 12 Hours) Vital Signs Temp Pulse Resp BP Pulse Ox 08/12/18 06:56 36.8 C 49 L 18 136/56 L 96 Laboratory Results 08/12/18 08/12/18 08/11/18 Range/Units 06:33 06:33 20:36 WBC 4.56 L (4.8-10.8) K/uL RBC 3.55 L (4.2-5.4) M/uL Hgb 9.2 L (12.0-16.0) g/dL Hct 30.0 L (37-47) % MCV 84.5 (80-100) fL MCH 25.9 (25-34) pg MCHC 30.7 L (32-36) g/dL RDW Std Deviation 48.5 H (36.4-46.3) fL RDW Coeff of Saadia 15.6 H (11.5-14.5) % Plt Count 131 (130-400) K/uL MPV 9.9 (7.4-10.4) fL Sodium 143 (136-145) mmol/L Potassium 3.7 (3.5-5.1) mmol/L Chloride 115 H (98-107) mmol/L Carbon Dioxide 24 (21-32) mmol/L Anion Gap 4.0 (3-11) BUN 30 H (7-18) mg/dl Creatinine 1.47 H (0.6-1.2) mg/dl Est Cr Clr Drug Dosing 43.9 ml/min Est GFR ( Amer) 40.9 Est GFR (Non-Af Amer) 35.3 BUN/Creatinine Ratio 20.2 H (10-20) Glucose 79 (70-99) mg/dl POC Glucose 114 H (70-99) Calcium 8.3 L (8.5-10.1) mg/dl Magnesium 1.9 (1.8-2.4) mg/dl 08/11/18 Range/Units 16:57 WBC (4.8-10.8) K/uL RBC (4.2-5.4) M/uL Hgb (12.0-16.0) g/dL Hct (37-47) % MCV (80-100) fL MCH (25-34) pg MCHC (32-36) g/dL RDW Std Deviation (36.4-46.3) fL RDW Coeff of Saadia (11.5-14.5) % Plt Count (130-400) K/uL MPV (7.4-10.4) fL Sodium (136-145) mmol/L Potassium (3.5-5.1) mmol/L Chloride (98-107) mmol/L Carbon Dioxide (21-32) mmol/L Anion Gap (3-11) BUN (7-18) mg/dl Creatinine (0.6-1.2) mg/dl Est Cr Clr Drug Dosing ml/min Est GFR ( Amer) Est GFR (Non-Af Amer) BUN/Creatinine Ratio (10-20) Glucose (70-99) mg/dl POC Glucose 110 H (70-99) Calcium (8.5-10.1) mg/dl Magnesium (1.8-2.4) mg/dl
--- NOTE | 2018-08-12 15:51 | Consultation ---
Date of Consultation August 12, 2018 Assessment & Plan (1) Peripheral arterial disease: This patient has diffuse arterial disease of both lower extremities however it is not significant enough to warrant any intervention at this time. She has no symptoms of claudication of the lower extremities is not fairly active. I would treat her lower extremity problems with a local wound care, antibiotics, leg elevation, and compression stockings. Neurovascular follow-up as needed unless she develops claudication when walking or for ulcerations worsen after local care. Thank you very much for letting us participate in the care of this patient. Please call if needed. History of Present Illness Reason for Consultation: Bilateral lower extremity cellulitis Attending Physician: Galina Cleaning MD History of Present Illness This is a 72-year-old obese female with a history of rheumatoid arthritis hyperlipidemia and hypertension. She presented to the emergency room with bilateral lower extremity cellulitis. This was done in the emergency room. She was sent home and had no improvement on the oral antibiotics that she was sent home on. She returned to the emergency room and admitted at that time. She is fairly active. She takes care of her own house on her own. She denies any symptoms of claudication of either lower extremity. She denies any ulcerations of the feet but does have ulcerations on her lower extremities. She does say that the lower extremities have been swollen for some time. She does not wear compression stockings. She has no symptoms of cerebrovascular insufficiency. Allergies Allergy/AdvReac Type Severity Reaction Status Date / Time oxycodone Allergy Unknown NAUSEA Unverified 08/10/18 17:44 Sulfa (Sulfonamide Allergy Unknown RASH Unverified 08/10/18 17:44 Antibiotics) Home Medications Home Medications Medication Instructions Recorded Confirmed Type aspirin [Ecotrin] 325 mg PO QAM 08/06/18 08/10/18 History hydroxychloroquine 400 mg PO QAM 08/06/18 08/10/18 History leflunomide 20 mg PO QAM 08/06/18 08/10/18 History losartan 75 mg PO QAM 08/06/18 08/10/18 History pravastatin 20 mg PO QPM 08/06/18 08/10/18 History prednisone 2.5 mg PO QAM 08/06/18 08/10/18 History prednisone 5 mg PO QAM 08/06/18 08/10/18 History cephalexin [Keflex] 500 mg PO BID 7 Days #14 cap 08/07/18 08/10/18 Rx doxycycline hyclate 100 mg PO BID 7 Days #14 tab 08/07/18 08/10/18 Rx Patient History Medical History Rheumatoid arthritis (Chronic) HLD (hyperlipidemia) HTN (hypertension) Obesity Surgical History History of total hip replacement Total knee replacement status Family History Father Non Hodgkin's lymphoma Mother Coronary heart disease Other No significant family history Social History Preferred Language: Grenadian Communication Ability: Effective 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 Other Information That Helps Us Care for You: No Feels Safe at Home: Yes Safety Concerns: Feels Safe At This Time Smoking Status: Never smoker Do You Dip or Chew Tobacco: No Second Hand Exposure: No Tobacco Cessation Education Requested by Patient: No Hx Alcohol Use: No Hx Substance Use: No Review of Systems Review of Systems: All systems reviewed & are unremarkable except as noted in HPI & below She denies any fever or chills at the time of admission. The only positive findings are as the history of present illness. Physical Exam Physical Exam: On exam patient's awake oriented x3 she is in no apparent distress. Her lungs are clear her heart had a regular rate and rhythm. Abdominal exam is benign she does have an obese habitus. Vascular exam reveals radials carotids superficial temporal arteries +2 bilaterally. Femorals are +2 bilaterally. Dorsalis pedis pulses are +1 bilaterally. She does have significant edema both lower extremities with erythema. Left lower extremity over the left lateral malleolus and the left third and fifth metatarsal have small ulcerations present. Noninvasive show normal indices in both lower extremities. Left lower extremity waveforms are triphasic to biphasic with what appears to be good flow to the foot. The right lower extremity shows areas of stenosis with biphasic waveforms throughout. Results & Data Vital Signs (Past 12 Hours) Vital Signs Temp Pulse Resp BP Pulse Ox 08/12/18 15:12 36.5 C 52 L 20 146/59 H 96 08/12/18 06:56 36.8 C 49 L 18 136/56 L 96
[2018-08-12] MEDS ORDERED: VANCOMYCIN HCL 1,500 MG in SODIUM CHLORIDE 0.9% 500 ML IV SCH (17:00)
[2018-08-12] MEDS: PRAVASTATIN SOD 20 MG TAB PO SCH (20:03)
[2018-08-12] MEDS: ERTAPENEM SODIUM 1,000 MG in SODIUM CHLORIDE 0.9% 50 ML IV SCH (20:05)
--- NOTE | 2018-08-12 21:50 | Infectious Disease Progress Nt ---
Date of Service August 12, 2018 Assessment & Plan (1) Cellulitis of left lower leg: Patient with bilateral lower extremity cellulitis in the setting of chronic venous stasis disease, lymphedema, with highly resistant Morganella and culture. Current treatment with vancomycin and ertapenem appropriate, with length of IV antibiotics to be determined by clinical response. Will follow. (2) Cellulitis of right lower leg: (3) Bacterial infection due to Morganella morganii: Subjective Patient seen in follow-up for lower extremity cellulitis. Continues to show improvement. Leg pain diminished. Erythema fading. Vascular surgery consult noted. No fever. Review of Systems Review of Systems: All systems reviewed & are unremarkable except as noted in HPI & below Physical Exam Constitutional: WD/WN, vitals as above + obese and comfortable; no acute distress Eyes: PERRL, conjunctivae normal, anicteric sclerae ENMT: external ear and nose normal, oropharynx normal Neck: trachea midline, no thyromegaly neck nontender Respiratory: normal respiratory effort, lungs clear to auscultation normal percussion; does not use accessory muscles Cardiovascular: Rate/Rhythm: regular rate and regular rhythm Heart Sounds: normal S1 and normal S2; no gallop, no murmur and no cardiac rub Vessels: normal peripheral pulses; no JVD Gastrointestinal (Abdomen): normal bowel sounds, soft, nontender, no hepatosplenomegaly Musculoskeletal: no cyanosis or clubbing, extremities motor strength 5/5 Spine: thoracic spine normal to inspection and lumbar spine normal to inspection; no cervical spinal tenderness Skin: normal turgor; no rashes Neurologic: patellar DTR's 2+ bilat, sensation intact no focal motor deficits Psychiatric: A+Ox3, euthymic affect Orientation: cooperative Lymphatic: no cervical or axillary lymphadenopathy no inguinal lymphadenopathy Results & Data Vital Signs (Past 12 Hours) Vital Signs Temp Pulse Resp BP Pulse Ox 08/12/18 15:12 36.5 C 52 L 20 146/59 H 96 Laboratory Results Short CBC 08/12/18 Range/Units 06:33 WBC 4.56 L (4.8-10.8) K/uL Hgb 9.2 L (12.0-16.0) g/dL Hct 30.0 L (37-47) % Plt Count 131 (130-400) K/uL BMP 08/12/18 06:33 Sodium 143 Potassium 3.7 Chloride 115 H Carbon Dioxide 24 BUN 30 H Creatinine 1.47 H Glucose 79 Calcium 8.3 L Diagnostic Findings Microbiology 08/10/18 17:10 Blood Blood Culture - Preliminary No growth to date. 08/10/18 17:05 Blood Blood Culture - Preliminary No growth to date.
[2018-08-13 06:47] LABS: Hematocrit (blood only) 30.6 % (37-47); Hemoglobin 9.4 g/dL (12.0-16.0); Mean Corpuscular Hgb Conc 30.7 g/dL (32-36); Mean Corpuscular Volume 84.3 fL (80-100); Platelet Count 136 K/uL (130-400); RDW Coefficient of Variation 15.6 % (11.5-14.5); RDW Standard Deviation 48.8 fL (36.4-46.3); Red Blood Count 3.63 M/uL (4.2-5.4); White Blood Count 4.57 K/uL (4.8-10.8)
[2018-08-13 07:23] LABS: BUN Creatinine Ratio 20.5 (10-20); Calcium 8.6 mg/dl (8.5-10.1); Creatinine Clr Calc Pharmacy 50.3 ml/min; Est GFR (African American) 48.4; Est GFR (Non-African American) 41.7; Potassium 3.8 mmol/L (3.5-5.1)
[2018-08-13] MEDS: LOSARTAN POTASSIUM 50 MG TAB PO SCH (08:07)
[2018-08-13] MEDS: predniSONE 5 MG TAB PO SCH (08:07)
[2018-08-13] MEDS: LEFLUNOMIDE 10 MG TAB PO SCH (08:07)
[2018-08-13] MEDS: ASPIRIN 325 MG ECTAB PO SCH (08:08)
[2018-08-13] MEDS: HEPARIN SOD 5,000 UNIT/0.5 ML VIAL SQ SCH ×2 (08:08→21:08)
[2018-08-13] MEDS: EUCERIN CR 120 GM JAR EXT SCH ×2 (08:08→21:08)
[2018-08-13] MEDS: FERROUS SULFATE 325 MG TAB PO SCH ×2 (08:08→17:16)
[2018-08-13] MEDS: HYDROXYCHLOROQUINE SULFATE 200 MG TAB PO SCH (08:08)
[2018-08-13] MEDS: DOCUSATE SODIUM/SENNA 50/8.6MG TAB PO SCH (08:08)
--- NOTE | 2018-08-13 14:22 | Hospitalist Progress Note ---
Date of Service August 13, 2018 Assessment & Plan (1) Cellulitis of both lower extremities: - Presented with bilat LE cellulitis; wound culture from ER on 08/07 +Morganella morganii resistant to PO abx and Coag neg Staph. - Received Cefepime in the ER; continue Ertapenem 1 gm IV q24hr (end date: 08/19/18) and Vancomycin (end date: 08/16/18) - Blood cultures negative to date. - Consulted ID, appreciate input. - Wound care nurse following, appreciate input. Eucerin cream q6hr for dry/scaling skin. (2) Peripheral arterial disease: - Arterial duplex showed areas of hemodynamically significant stenosis within right leg. - Consulted vascular surgery, no surgical intervention indicated. - Continue aspirin and statin as prescribed. (3) Rheumatoid arthritis: - Continue home Plaquenil, Leflunomide and Prednisone 7.5 mg daily. (4) HTN (hypertension): - Continue home Losartan 75 mg daily. - Hydralazine 10 mg IV q6hr prn. (5) Hyperlipidemia: - Continue pravastatin 20 mg daily as prescribed. (6) Obesity: - BMI 42.4. - Encourage weight loss and exercise. (7) Anemia: - Labs are consistent with mixed anemia (of chronic disease and iron deficiency anemia) - FOBT was not collected, is currently ordered. - Started Ferrous sulfate 325 mg BID; will d/c Senokot S as pt. is having diarrhea. - Will need GI work up as outpatient. (8) Hyperglycemia: - Blood glucose elevated on previous lab work. - Hgb A1C was 5.2 (9) CKD (chronic kidney disease) stage 3, GFR 30-59 ml/min: - Renally dose all meds. - Monitor renal function daily. (10) DVT prophylaxis: - SCDs; Heparin. Dispo: Admit to med/surg, IV abx in setting of bilat LE cellulitis. Plan for discharge home on 08/16/18; will need 3 more days of IV abx at home via [facility], is arranged. Supervising Physician Co-Signing Physician Notes PA Supervision Note: I did not personally see or examine the patient today, but I verified all wood points of SANDRITA Encarnacion's assessment and plan with the following exceptions/additions: None Subjective Pt. is doing well overall. She states lower extremity redness improved, has chronic swelling. She has diarrhea -- was started on a stool softener in setting of ferrous sulfate. Will d/c Coreen Willett. Plan for discharge on Thursday following IV abx dose -- will need 3 more days via home nursing. Review of Systems Review of Systems: All systems reviewed & are unremarkable except as noted in HPI & below Constitutional: no fever, no chills, no fatigue and no weakness Respiratory: no cough, no dyspnea, no dyspnea on exertion and no wheezing Cardiovascular: + edema; no chest pain, no palpitations, no lightheadedness and no syncope Gastrointestinal: + diarrhea/loose stools; no abdominal pain, no nausea and no vomiting Genitourinary: no difficulty urinating Musculoskeletal: no back pain and no joint pain Integumentary: no non-healing lesions Allergy / Immunological: no rash Physical Exam Physical Exam: General: Resting comfortably, in no acute distress. HEENT: NC/AT; PERRLA with EOMI; [place] conjunctiva, MMM. No erythema of posterior pharynx Neck: Supple and nontender Cardiac: RRR Lungs: CTA bilaterally; No rhonchi, wheezing, or rales Abdomen: Bowel normoactive X 4; Nontender to palpation Extremities: Warm. +2 bilat non pitting chronic LE edema. Neuro: No focal weakness Skin: Erythema improved, no open lesions noted on bilat LE. Results & Data Vital Signs (Past 12 Hours) Vital Signs Temp Pulse Resp BP Pulse Ox 08/13/18 07:00 36.6 C 59 L 20 136/77 97 Laboratory Results 08/13/18 08/13/18 Range/Units 05:52 05:52 WBC 4.57 L (4.8-10.8) K/uL RBC 3.63 L (4.2-5.4) M/uL Hgb 9.4 L (12.0-16.0) g/dL Hct 30.6 L (37-47) % MCV 84.3 (80-100) fL MCH 25.9 (25-34) pg MCHC 30.7 L (32-36) g/dL RDW Std Deviation 48.8 H (36.4-46.3) fL RDW Coeff of Saadia 15.6 H (11.5-14.5) % Plt Count 136 (130-400) K/uL MPV 10.0 (7.4-10.4) fL Sodium 144 (136-145) mmol/L Potassium 3.8 (3.5-5.1) mmol/L Chloride 116 H (98-107) mmol/L Carbon Dioxide 23 (21-32) mmol/L Anion Gap 5.0 (3-11) BUN 26 H (7-18) mg/dl Creatinine 1.28 H (0.6-1.2) mg/dl Est Cr Clr Drug Dosing 50.3 ml/min Est GFR ( Amer) 48.4 Est GFR (Non-Af Amer) 41.7 BUN/Creatinine Ratio 20.5 H (10-20) Glucose 77 (70-99) mg/dl Calcium 8.6 (8.5-10.1) mg/dl
[2018-08-13] MEDS ORDERED: VANCOMYCIN TROUGH ONE (14:30)
--- NOTE | 2018-08-13 14:40 | Infectious Disease Progress Nt ---
Date of Service August 13, 2018 Assessment & Plan (1) Cellulitis of left lower leg: Patient with bilateral lower extremity cellulitis in the setting of chronic venous stasis disease, lymphedema, with highly resistant Morganella and culture. Current treatment with vancomycin and ertapenem appropriate, with treatment planned through August 19. Will follow. (2) Cellulitis of right lower leg: (3) Bacterial infection due to Morganella morganii: Subjective Patient seen in follow-up for lower extremity cellulitis. Continues to show improvement. Leg pain diminished. Erythema fading. Vascular surgery consult noted. No fever. Physical Exam Constitutional: WD/WN, vitals as above + obese and comfortable; no acute distress Eyes: PERRL, conjunctivae normal, anicteric sclerae ENMT: external ear and nose normal, oropharynx normal Neck: trachea midline, no thyromegaly neck nontender Respiratory: normal respiratory effort, lungs clear to auscultation normal percussion; does not use accessory muscles Cardiovascular: Rate/Rhythm: regular rate and regular rhythm Heart Sounds: normal S1 and normal S2; no gallop, no murmur and no cardiac rub Vessels: normal peripheral pulses; no JVD Gastrointestinal (Abdomen): normal bowel sounds, soft, nontender, no hepatosplenomegaly Musculoskeletal: no cyanosis or clubbing, extremities motor strength 5/5 Spine: thoracic spine normal to inspection and lumbar spine normal to inspection; no cervical spinal tenderness Skin: normal turgor; no rashes Neurologic: patellar DTR's 2+ bilat, sensation intact no focal motor deficits Psychiatric: A+Ox3, euthymic affect Orientation: cooperative Lymphatic: no cervical or axillary lymphadenopathy no inguinal lymphadenopathy Results & Data Vital Signs (Past 12 Hours) Vital Signs Temp Pulse Resp BP Pulse Ox 08/13/18 07:00 36.6 C 59 L 20 136/77 97
[2018-08-13] MEDS: ERTAPENEM SODIUM 1,000 MG in SODIUM CHLORIDE 0.9% 50 ML IV SCH (17:15)
[2018-08-13] MEDS: PRAVASTATIN SOD 20 MG TAB PO SCH (21:08)
[2018-08-14] MEDS: EUCERIN CR 120 GM JAR EXT SCH ×2 (08:30→20:19)
[2018-08-14] MEDS: predniSONE 5 MG TAB PO SCH (08:30)
[2018-08-14] MEDS: LOSARTAN POTASSIUM 50 MG TAB PO SCH (08:31)
[2018-08-14] MEDS: HEPARIN SOD 5,000 UNIT/0.5 ML VIAL SQ SCH ×2 (08:31→20:18)
[2018-08-14] MEDS: ASPIRIN 325 MG ECTAB PO SCH (08:31)
[2018-08-14] MEDS: FERROUS SULFATE 325 MG TAB PO SCH ×2 (08:31→17:05)
[2018-08-14] MEDS: LEFLUNOMIDE 10 MG TAB PO SCH (08:32)
[2018-08-14] MEDS: HYDROXYCHLOROQUINE SULFATE 200 MG TAB PO SCH (08:32)
[2018-08-14] MEDS: ERTAPENEM SODIUM 1,000 MG in SODIUM CHLORIDE 0.9% 50 ML IV SCH (11:40)
--- NOTE | 2018-08-14 14:18 | Hospitalist Progress Note ---
Date of Service August 14, 2018 Assessment & Plan (1) Cellulitis of both lower extremities: - Presented with bilat LE cellulitis; wound culture from ER on 08/07 +Morganella morganii resistant to PO abx and Coag neg Staph. - Continue Ertapenem 1 gm IV q24hr (end date: 08/19/18). D/c'ed Vanc on 08/13. - Blood cultures negative to date. - Consulted ID, appreciate input. - Wound care nurse following, appreciate input. Eucerin cream q6hr for dry/scaling skin. (2) Peripheral arterial disease: - Arterial duplex showed areas of hemodynamically significant stenosis within right leg. - Consulted vascular surgery, no surgical intervention indicated. Vascular Surgery recommended local wound care, antibiotics, compression stockings, elevation of legs, and to f/u if develops claudication when walking or if ulcerations worsen after local care. - Continue aspirin and statin as prescribed. (3) Rheumatoid arthritis: - Continue home Plaquenil, Leflunomide and Prednisone 7.5 mg daily. (4) HTN (hypertension): - Continue home Losartan 75 mg daily. - Hydralazine 10 mg IV q6hr prn. (5) Hyperlipidemia: - Continue pravastatin 20 mg daily as prescribed. (6) Obesity: - BMI 42.4. - Encourage weight loss and exercise. (7) Anemia: - Labs are consistent with mixed anemia (of chronic disease and iron deficiency anemia) - FOBT is ordered. - Started Ferrous sulfate 325 mg BID; hold Senokot S due to diarrhea. - Will need appt with Dr. Bettencourt for colonoscopy at discharge (per pt, she is scheduled for procedure in September) (8) Hyperglycemia: - Blood glucose elevated on previous lab work. - Hgb A1C was 5.2 (9) CKD (chronic kidney disease) stage 3, GFR 30-59 ml/min: - Renally dose all meds. - Monitor renal function daily. (10) DVT prophylaxis: - SCDs; Heparin. Dispo: Admit to med/surg, IV abx in setting of bilat LE cellulitis. Plan for discharge home on 08/16/18; will need 3 more days of IV abx at home via long term, is arranged. Supervising Physician Co-Signing Physician Notes PA Supervision Note: I did not personally see or examine the patient today, but I verified all wood points of PA Delgrosso's assessment and plan with the following exceptions/additions: None Subjective Pt. is doing well overall. Denies lower extremity pain, increased redness. Her niece is sitting at bedside, discussed plan of care. Pt. complains of diarrhea -- explained that diarrhea is likely 2/2 stool softener started in setting of diarrhea. Med was d/c'ed yesterday. Has iron deficiency anemia -- pt. is scheduled to have a colonoscopy this summer with Dr. Bettencourt. Will arrange f/u appt prior to discharge. Review of Systems Review of Systems: All systems reviewed & are unremarkable except as noted in HPI & below Constitutional: no fever, no chills, no fatigue and no weakness Respiratory: no cough, no dyspnea, no dyspnea on exertion and no wheezing Cardiovascular: no chest pain, no palpitations, no lightheadedness, no syncope and no edema Gastrointestinal: + diarrhea/loose stools; no abdominal pain, no nausea and no vomiting Genitourinary: no difficulty urinating Musculoskeletal: no back pain and no joint pain Integumentary: + lesions and + erythema (Resolving. ) Neurologic: no dizziness and no headache(s) Allergy / Immunological: no rash Physical Exam Physical Exam: General: Resting comfortably, in no acute distress. HEENT: NC/AT; PERRLA with EOMI; [place] conjunctiva, MMM. No erythema of posterior pharynx Neck: Supple and nontender Cardiac: RRR Lungs: CTA bilaterally; No rhonchi, wheezing, or rales Abdomen: Bowel normoactive X 4; Nontender to palpation Extremities: Warm. +2 bilat non pitting chronic LE edema. Neuro: No focal weakness Skin: Erythema improving, no open lesions. Results & Data Vital Signs (Past 12 Hours) Vital Signs Temp Pulse Resp BP Pulse Ox 08/14/18 07:00 36.4 C L 62 20 139/67 97 Laboratory Results 08/13/18 Range/Units 14:14 Vancomycin Trough 21.4 (See Comment) mcg/ml
[2018-08-14] MEDS: PRAVASTATIN SOD 20 MG TAB PO SCH (20:19)
[2018-08-15 07:08] LABS: Hematocrit (blood only) 31.2 % (37-47); Hemoglobin 9.6 g/dL (12.0-16.0); Mean Corpuscular Hgb Conc 30.8 g/dL (32-36); Mean Corpuscular Volume 84.3 fL (80-100); Platelet Count 135 K/uL (130-400); RDW Coefficient of Variation 15.7 % (11.5-14.5); RDW Standard Deviation 48.3 fL (36.4-46.3); White Blood Count 5.32 K/uL (4.8-10.8)
[2018-08-15 07:38] LABS: BUN Creatinine Ratio 22.2 (10-20); Calcium 9.2 mg/dl (8.5-10.1); Creatinine Clr Calc Pharmacy 52.8 ml/min; Est GFR (African American) 51.3; Est GFR (Non-African American) 44.2; Potassium 4.4 mmol/L (3.5-5.1)
[2018-08-15] MEDS: EUCERIN CR 120 GM JAR EXT SCH ×2 (07:53→20:59)
[2018-08-15] MEDS: predniSONE 5 MG TAB PO SCH (07:53)
[2018-08-15] MEDS: ASPIRIN 325 MG ECTAB PO SCH (07:54)
[2018-08-15] MEDS: LEFLUNOMIDE 10 MG TAB PO SCH (07:54)
[2018-08-15] MEDS: LOSARTAN POTASSIUM 50 MG TAB PO SCH (07:54)
[2018-08-15] MEDS: HYDROXYCHLOROQUINE SULFATE 200 MG TAB PO SCH (07:54)
[2018-08-15] MEDS: FERROUS SULFATE 325 MG TAB PO SCH (07:57)
[2018-08-15] MEDS: HEPARIN SOD 5,000 UNIT/0.5 ML VIAL SQ SCH ×2 (07:57→20:57)
[2018-08-15] MEDS: ERTAPENEM SODIUM 1,000 MG in SODIUM CHLORIDE 0.9% 50 ML IV SCH (08:32)
--- NOTE | 2018-08-15 13:39 | Hospitalist Progress Note ---
Date of Service August 15, 2018 Assessment & Plan (1) Cellulitis of both lower extremities: - Presented with bilat LE cellulitis; wound culture from ER on 08/07 +Morganella morganii resistant to PO abx and Coag neg Staph. - Continue Ertapenem 1 gm IV q24hr (end date: 08/19/18). D/c'ed Vanc on 08/13. - Blood cultures negative to date. - Consulted ID, appreciate input. - Wound care nurse following, appreciate input. Eucerin cream q6hr for dry/scaling skin. (2) Diarrhea: - Developed diarrhea during this admission. - C. diff negative; Stool cultures and O&P pending. - May be related to stool softener started in setting of ferrous sulfate, now discontinued. (3) Peripheral arterial disease: - Arterial duplex showed areas of hemodynamically significant stenosis within right leg. - Consulted vascular surgery, no surgical intervention indicated. - Recommended local wound care, antibiotics, compression stockings, elevation of legs, and to f/u if develops claudication when walking or if ulcerations worsen after local care. - Continue aspirin and statin as prescribed. (4) Rheumatoid arthritis: - Continue home Plaquenil, Leflunomide and Prednisone 7.5 mg daily. (5) HTN (hypertension): - Continue home Losartan 75 mg daily. (6) Hyperlipidemia: - Continue pravastatin 20 mg daily as prescribed. (7) Obesity: - BMI 42.4. - Encourage weight loss and exercise. (8) Anemia: - Labs are consistent with mixed anemia (of chronic disease and iron deficiency anemia) - FOBT is ordered. - Started Ferrous sulfate 325 mg BID, will decrease to daily as pt. believes this medication is leading to diarrhea. - Will need appt with Dr. Bettencourt for colonoscopy at discharge (per pt, she is scheduled for procedure in September) (9) Hyperglycemia: - Blood glucose elevated on previous lab work. - Hgb A1C was 5.2 (10) CKD (chronic kidney disease) stage 3, GFR 30-59 ml/min: - Renally dose all meds. - Monitor renal function daily. (11) DVT prophylaxis: - SCDs; Heparin. Dispo: Admit to med/surg, IV abx in setting of bilat LE cellulitis. Plan for discharge home on 08/16/18; will need 3 more days of IV abx at home via half-way, is arranged. Supervising Physician Co-Signing Physician Notes PA Supervision Note: I did not personally see or examine the patient today, but I verified all wood points of SANDRITA Encarnacion's assessment and plan with the following exceptions/add itions: None Subjective Pt. is doing well. She does have diarrhea -- thinks diarrhea is related to iron supplements. Explained that iron does not cause diarrhea, may be related to stool softeners that were started (now discontinued) vs. infection. Will order C. diff and stool cultures. Plan for discharge to home on 08/16 following IV abx dose. Will receive home nursing - for IV abx. Review of Systems Review of Systems: All systems reviewed & are unremarkable except as noted in HPI & below Constitutional: no fever, no chills, no fatigue and no weakness Respiratory: no cough, no dyspnea, no dyspnea on exertion and no wheezing Cardiovascular: no chest pain, no palpitations and no edema Gastrointestinal: + diarrhea/loose stools; no abdominal pain, no nausea and no vomiting Genitourinary: no dysuria and no difficulty urinating Musculoskeletal: no back pain and no joint pain Integumentary: + lesions, + erythema (Bilat LE ) and + dry skin (Bilat LE ) Allergy / Immunological: no rash Physical Exam Physical Exam: General: Resting comfortably, in no acute distress. HEENT: NC/AT; PERRLA with EOMI; [place] conjunctiva, MMM. No erythema of posterior pharynx Neck: Supple and nontender Cardiac: RRR Lungs: CTA bilaterally; No rhonchi, wheezing, or rales Abdomen: Bowel normoactive X 4; Nontender to palpation Extremities: Warm. +1-2 bilat non pitting chronic LE edema. Neuro: No focal weakness Skin: Mild erythema of both LE noted; no open areas on left foot. Results & Data Vital Signs (Past 12 Hours) Vital Signs Temp Pulse Resp BP Pulse Ox 08/15/18 07:00 36.5 C 65 20 150/65 H 97 Laboratory Results 08/15/18 08/15/18 08/15/18 Range/Units 10:55 06:48 06:48 WBC 5.32 (4.8-10.8) K/uL RBC 3.70 L (4.2-5.4) M/uL Hgb 9.6 L (12.0-16.0) g/dL Hct 31.2 L (37-47) % MCV 84.3 (80-100) fL MCH 25.9 (25-34) pg MCHC 30.8 L (32-36) g/dL RDW Std Deviation 48.3 H (36.4-46.3) fL RDW Coeff of Saadia 15.7 H (11.5-14.5) % Plt Count 135 (130-400) K/uL MPV 10.0 (7.4-10.4) fL Sodium 147 H (136-145) mmol/L Potassium 4.4 (3.5-5.1) mmol/L Chloride 117 H (98-107) mmol/L Carbon Dioxide 25 (21-32) mmol/L Anion Gap 5.0 (3-11) BUN 27 H (7-18) mg/dl Creatinine 1.22 H (0.6-1.2) mg/dl Est Cr Clr Drug Dosing 52.8 ml/min Est GFR ( Amer) 51.3 Est GFR (Non-Af Amer) 44.2 BUN/Creatinine Ratio 22.2 H (10-20) Glucose 81 (70-99) mg/dl Calcium 9.2 (8.5-10.1) mg/dl Stl C. diff Tox B Gene Negative Cdiff Gene (Neg)
[2018-08-15] MEDS: PRAVASTATIN SOD 20 MG TAB PO SCH (20:58)
[2018-08-16] MEDS: EUCERIN CR 120 GM JAR EXT SCH (07:48)
[2018-08-16] MEDS: LOSARTAN POTASSIUM 50 MG TAB PO SCH (07:48)
[2018-08-16] MEDS: HYDROXYCHLOROQUINE SULFATE 200 MG TAB PO SCH (07:49)
[2018-08-16] MEDS: LEFLUNOMIDE 10 MG TAB PO SCH (07:50)
[2018-08-16] MEDS: ASPIRIN 325 MG ECTAB PO SCH (07:50)
[2018-08-16] MEDS: predniSONE 5 MG TAB PO SCH (07:50)
[2018-08-16] MEDS: HEPARIN SOD 5,000 UNIT/0.5 ML VIAL SQ SCH (07:51)
[2018-08-16] MEDS: ERTAPENEM SODIUM 1,000 MG in SODIUM CHLORIDE 0.9% 50 ML IV SCH (07:59)
[2018-08-16] MEDS ORDERED: FERROUS SULFATE 325 MG TAB PO SCH (09:00)
[2018-08-16 10:01] LABS: BUN Creatinine Ratio 18.2 (10-20); Calcium 9.5 mg/dl (8.5-10.1); Creatinine Clr Calc Pharmacy 49.9 ml/min; Est GFR (African American) 48.4; Est GFR (Non-African American) 41.7; Potassium 4.1 mmol/L (3.5-5.1)
--- NOTE | 2018-08-16 12:18 | Discharge Summary ---
Date of Service August 16, 2018 Admission HPI Per Admitting Provider Ms. Villalpando is a 72 year old female with past medical history of obesity, rheumatoid arthritis, hypertension, hyperlipidemia who presented with bilateral lower extremity cellulitis. Pt. presented to the ER on 08/06/18 with bilateral lower extremity cellulitis. Wound culture was obtained and she was discharged home with instructions to complete a 7 day course of Keflex/Doxycycline. Pt. states redness/warmth of lower extremities did not improve with PO abx. She has two open lesions on LLE, one lesion at left lateral malleolus region and one lesion near distal 3-5th distal metatarsal area. She has been applying dressing to both lesions and noticed a clear discharge. Legs are very erythematous -- redness starts below knee and extends to ankles. She received a call from a pharmacist at [facility] who instructed her to come to the ER immediately for IV abx administration. Denies increased edema, LE pain, fever/chills, chest pain, SOB at home. Denies abd pain, N/V, diarrhea or constipation, dysuria prior to admission. Wound culture was positive for Morganella morganii, resistant to PO abx. She received a dose of Cefepime IV in the ER. Blood cultures x 2 are pending. Pt. will be admitted for IV abx per wound culture sensitivities. Principal Diagnosis cellulitis bilateral lower extremities Discharge Exam Constitutional WD/WN, vitals as above Respiratory normal respiratory effort, lungs clear to auscultation Cardiovascular Rate/Rhythm: regular rate and regular rhythm Heart Sounds: no murmur Gastrointestinal (Abdomen) normal bowel sounds, soft, nontender, no hepatosplenomegaly Musculoskeletal no cyanosis or clubbing, extremities motor strength 5/5 Skin erythema bilateral lower extremities, dry flaking skin, non pitting edema Neurologic moves all extremities and awake Psychiatric A+Ox3, euthymic affect Discharge Data Allergies Allergy/AdvReac Type Severity Reaction Status Date / Time oxycodone Allergy Unknown NAUSEA Unverified 08/10/18 17:44 Sulfa (Sulfonamide Allergy Unknown RASH Unverified 08/10/18 17:44 Antibiotics) Consultations 08/10/18 16:54 ED Decision to Admit Stat 08/10/18 19:51 Consult Infectious Diseases Routine 08/12/18 08:24 Consult Vascular Surgery Routine Ordered Studies 08/11/18 14:00 US arterial duplex LE BI Routine Hospital Course (1) Cellulitis of both lower extremities: - Presented with bilat LE cellulitis; wound culture from ER on 08/07 +Morganella morganii resistant to PO abx and Coag neg Staph. - Continue Ertapenem 1 gm IV q24hr (end date: 08/19/18). D/c'ed Vanc on 08/13. - Blood cultures negative to date. - Consulted ID - Wound care nurse - Eucerin cream q6hr for dry/scaling skin. - patient will discharge to home with home health providing three further days of IV ertapenem. Nursing will provide new IV site before discharge (2) Diarrhea: - Developed diarrhea during this admission. - C. diff negative; Stool cultures and O&P pending. - May be related to stool softener started in setting of ferrous sulfate, now discontinued. - patient reports improvement today with two stools over the night - no blood, stools are green/black and loose. Seems to be improving following discontinuation of stool softeners. Patient should continue iron. (3) Peripheral arterial disease: - Arterial duplex showed areas of hemodynamically significant stenosis within right leg. - Consulted vascular surgery, no surgical intervention indicated. - Recommended local wound care, antibiotics, compression stockings, elevation of legs, and to f/u if develops claudication when walking or if ulcerations worsen after local care. - Continue aspirin and statin as prescribed. (4) Rheumatoid arthritis: - Continue home Plaquenil, Leflunomide and Prednisone 7.5 mg daily. (5) HTN (hypertension): - Continue home Losartan 75 mg daily. (6) Hyperlipidemia: - Continue pravastatin 20 mg daily as prescribed. (7) Obesity: - BMI 42.4. - Encourage weight loss and exercise. (8) Anemia: - Labs are consistent with mixed anemia (of chronic disease and iron deficiency anemia) - Started Ferrous sulfate 325 mg BID, will decrease to daily as pt. believes this medication is leading to diarrhea. - Will need appt with Dr. Bettencourt for colonoscopy at discharge (per pt, she is scheduled for procedure in September) - Hgb has been stable for days around 9.5 (9) Hyperglycemia: - Blood glucose elevated on previous lab work. - Hgb A1C was 5.2 (10) CKD (chronic kidney disease) stage 3, GFR 30-59 ml/min: - Renally dose all meds. - Monitor renal function daily. - Creatinine appears to be baseline 1.2 - normally 1.2- 1.5 (11) Hypernatremia: mild - 147 yesterday, 146 today. Will have home health check labs again in 2 days. Asymptomatic (12) DVT prophylaxis: - SCDs; Heparin. Total Time Total Time Spent Total Time Spent (In Minutes): greater than 30 minutes Discharge Plan Discharge Items Patient Disposition: Home - Home Health Services Reason For Visit: CELLULITIS Discharge Diagnosis: Cellulitis Discharge Goals: Improve disease control Activity: Resume your previous activity Non-emergency contact: Primary Care Provider Call non-emergency contact if: you have any medication questions Follow-up/Referrals: Svetlana Rosales CRNP [Primary Care Provider] - 08/23/18 1:50 pm (Please, follow up with Svetlana PIERCE on ThursdayAugust 23 at 1:50 pm. *If you need to change this appointment, call the office at [phone].) Diet: Heart Healthy Other Ambulatory Orders: Basic Metabolic Panel (Routine) Timeframe: 2 Days Location: Determined by Patient Ordered By: Lashaun Mata Provider Instructions: Please follow up with your primary care provider within about a week. Home health will give you three more days of Ertapenem infusions once daily Please have repeat labs drawn in two days. Your stool cultures are still pending, I will follow up with you if they are positive for infection. Prescriptions: New ferrous sulfate 325 mg (65 mg iron) Tablet,Delayed Release (Dr/Ec) 325 mg PO DAILY Qty: 30 RF: 0 losartan 50 mg Tablet 75 mg PO QAM Qty: 30 RF: 0 ertapenem 1 gram recon soln 1 gm IV DAILY 3 Days Qty: 3 RF: 0 Continued prednisone 5 mg tablet 5 mg PO QAM RF: 0 leflunomide 20 mg tablet 20 mg PO QAM RF: 0 aspirin [Ecotrin] 325 mg Tablet,Delayed Release (Dr/Ec) 325 mg PO QAM RF: 0 prednisone 2.5 mg tablet 2.5 mg PO QAM RF: 0 pravastatin 20 mg tablet 20 mg PO QPM RF: 0 hydroxychloroquine 200 mg tablet 400 mg PO QAM RF: 0 Discontinued losartan 50 mg tablet 75 mg PO QAM RF: 0 Stand-Alone Forms: My [facility] Discharge Orders: Discharge Order (Routine); Ordered 08/16/18 Ordered By: Lashaun Staples Admission Data Admit Date/Time: 08/10/18 18:02 Attending Provider: Maulik Ramires Admit Provider: Osvaldo Hammer Primary Care Provider: Svetlana Rosales Other Providers: Jason Patricia ; Carol Escamilla ; Danis Horan ; Lashaun Staples Service: Medical Other Interventions: Discharge Summary Assessment (RN) Last Done: 08/16/18 12:44 Pending Studies at Discharge: Yes Studies:: stool cultures DC Date/Time DO NOT enter until pt leaves facility: 08/16/18 13:37
--- OUTSIDE RECORDS SUMMARY | 2018-08-16 17:37 | External Medical Summary | Continuity of Care Document ---
:1945 Author Name Jose Angel Sanchez, Provider Address Unavailable Unavailable , Care Team Providers Name Role Phone NonMNPG MFay, Provider Unavailable [email or web address] Unavailable Unavailable Unavailable Unavailable Unavailable Problems Osteoporosis (733.00) (M81.0) Rheumatoid arthritis (714.0) (M06.9) Dyslipidemia (272.4) (E78.5) Encounter for routine gynecological examination (V72.31) (Z0 1.419) Allergies and Adverse Reactions No Known Drug Allergies (Allergy) Medications Enbrel 25 MG KIT; INJECT 25 MG SUBCUTANEOUSLY TWICE WEEKLY. Refills: 0 Fosamax 70 MG Oral Tablet; TAKE 1 TABLET ONCE WEEKLY. Refills: 0 Caltrate 600+D TABS; TAKE 1 TABLET 3 times daily Refills: 0 Pravachol 20 MG Oral Tablet; TAKE 1 TABLET DAILY. Refills: 0 Ascriptin TABS; Take 1 tablet daily Refills: 0 Triamterene-HCTZ 25-37.5 MG CAPS; TAKE 1 CAPSULE DAILY. Refills: 0 Procedures History of Cervical Conization By Cold Knife Status: Completed History of Total Abdominal Hysterectomy With Removal Of Both Status: Completed Ovaries History of Knee Arthroscopy (Therapeutic) Status: Completed History of Knee Replacement Status: Comp leted History of Total Hip Replacement Status: Completed History of Revision Of Total Hip Arthroplasty Status: Completed History of Knee Replacement Status: Comp leted Immunizations Immunizations not documented Social History - Smoking Status Never smoker Plan of Treatment Planned Observations Planned Goals not documented Results No Known Results Results not documented
== END 2018-08-16 13:37 | disposition home health service (06) | DRG 603 ==
LOC: ED 16:04 → 4W 18:02 → SUATTDRO 18:02 → 4W 18:25

== ENCOUNTER 2018-10-20 21:40 | Inpatient (IN) ==
[2018-10-20 23:58] LABS: Basophils # (auto) 0.01 K/uL (0-0.2); Basophils % (auto) 0.1 %; Eosinophils # (auto) 0.03 K/uL (0-0.5); Eosinophils % (auto) 0.4 %; Hematocrit (blood only) 37.4 % (37-47); Hemoglobin 11.7 g/dL (12.0-16.0); Immature Granulocytes # (auto) 0.01 K/uL (0.00-0.02); Immature Granulocytes % (auto) 0.1 %; Lymphocytes # (auto) 0.47 K/uL (1.2-3.4); Lymphocytes % (auto) 5.5 %; Mean Corpuscular Hgb Conc 31.3 g/dL (32-36); Mean Corpuscular Volume 82.9 fL (80-100); Mean Platelet Volume 9.5 fL (7.4-10.4); Monocytes # (auto) 0.77 K/uL (0.11-0.59); Monocytes % (auto) 9.1 %; Neutrophils % (auto) 84.8 %; Platelet Count 121 K/uL (130-400); RDW Coefficient of Variation 15.8 % (11.5-14.5); Red Blood Count 4.51 M/uL (4.2-5.4); White Blood Count 8.49 K/uL (4.8-10.8)
[2018-10-21 00:13] LABS: Partial Thromboplastin Time 26.5 Seconds (21.0-31.0); Prothrombin Time 10.2 Seconds (9.0-12.0)
[2018-10-21 00:16] LABS: Alanine Aminotransferase 20 U/L (12-78); Albumin Level 3.3 gm/dl (3.4-5.0); Aspartate Aminotransferase 17 U/L (15-37); BUN Creatinine Ratio 16.4 (10-20); Blood Urea Nitrogen 23 mg/dl (7-18); Calcium 9.1 mg/dl (8.5-10.1); Carbon Dioxide 25 mmol/L (21-32); Chloride 113 mmol/L (98-107); Est GFR (African American) 44.2; Est GFR (Non-African American) 38.1; Glucose 100 mg/dl (70-99); Potassium 3.8 mmol/L (3.5-5.1); Sodium 145 mmol/L (136-145)
[2018-10-21 00:19] LABS: Albumin Globulin Ratio 1.1 (0.9-2); Alkaline Phosphatase 85 U/L (45-117); Bilirubin,Total 0.5 mg/dl (0.2-1); Globulin 2.9 gm/dl (2.5-4.0); Total Protein 6.2 gm/dl (6.4-8.2)
[2018-10-21 00:33] LABS: NT Pro B Type Natriuretic Pept 1184 pg/ml (0-900); Troponin I 0.015 ng/ml (0-0.045)
[2018-10-21 00:51] LABS: Appearance Urine Clear (Clear); Bacteria Urine Automated Negative (Negative); Bilirubin Urine Negative (Negative); Blood Urine Negative (Negative); Color Urine Yellow; Epithelial Cell Urine Auto >30 /lpf (0-5); Glucose Urine UA Negative (Negative); Ketones Urine Trace (Negative); Leukocyte Esterase Urine Negative (Negative); Nitrite Urine Negative (Negative); Protein Urine Trace (Negative); RBC Urine Automated 0-4 /hpf (0-4); Specific Gravity Urine 1.023 (1.000-1.030); Urobilinogen Urine Negative (Negative)
[2018-10-21] MEDS ORDERED: FUROSEMIDE 20 MG in SYRINGE 0 ML IV ONE (01:48)
[2018-10-21] MEDS ORDERED: FUROSEMIDE 40 MG/4 ML VIAL IV ONE (01:50)
[2018-10-21] MEDS ORDERED: ACETAMINOPHEN 500 MG TAB PO STA (03:16)
--- NOTE | 2018-10-21 04:36 | History & Physical Report ---
Date of Service October 21, 2018 Assessment & Plan (1) Sore throat: 72-year-old female was admitted on 21 October 2018 for pulmonary edema. Sore throat, pulmonary edema: Sore throat, congested cough, and chest congestion since colonoscopy on . Anesthesia was with a nasal cannula and mask. Exam and work-up as below, suggestive of new onset pulmonary edema. No history of same. Denies chest pain or exertional symptoms. Do not suspect an acute infectious issue at this time. - In ED, borderline febrile T-max 37.8, borderline tachycardic, is tachypneic, with mild hypertension. Initial SpO2 88% on room air. WBC 8. BNP 1184. pCXR with some airspace opacity (? infiltrate vs edema vs atelectasis) [formal rad reads pending]. - In ED, treated with Tylenol and Lasix 40 mg IV. - Ordered another Lasix 40 mg IV. Nitropaste 1/2 inch to chest. Ordered echocardiogram. Thrombocytopenia: Admit platelets 121. INR 1.0. No reports of bruising or easy bleeding. Monitor. Ongoing medical issues: - Hypertension, hyperlipidemia, peripheral artery disease: Continue home aspirin, losartan, pravastatin. - Rheumatoid arthritis: Continue home leflunomide, prednisone, hydroxychloroquine. - CKD stage III: Admit Cr 1.38, roughly around her baseline. - Chronic anemia: Admit Hb 11.7, higher than perhaps her baseline high Hb 9s. - Melanoma, obesity, bilateral sacral fracture, bilateral leg cellulitis (July 2018). Code status: Full code. Does not want any blood products. Diet: Heart healthy. DVT prophy: Lovenox. PT/OT: Deferred. Disbo: Admit to [facility]. (2) Pulmonary edema: (3) Thrombocytopenia: (4) HTN (hypertension): (5) Hyperlipidemia: (6) Peripheral arterial disease: (7) Rheumatoid arthritis: (8) CKD (chronic kidney disease) stage 3, GFR 30-59 ml/min: (9) Chronic anemia: History of Present Illness Primary Care Provider: KARI Coughlin 72-year-old female presents to the emergency department with complaints of a sore throat, gurgling sensation in her throat, and congested cough. She says this all began in the postop area after undergoing a colonoscopy about 8 days ago (26Jun). She says she woke up with no voice and since then it has returned but is always "gurgling". No known history of the same. She denies any difficulty breathing but does note very congested cough throughout this time. No known fevers, neck pain or stiffness, difficulties with swallowing, chest pain, nausea or vomiting, or other acute concerns. On review of systems, she says occasionally she does have some edema in her legs but most recently this has been attributed to bilateral leg cellulitis. She was admitted in July 2018 for the same, completed antibiotic therapy, and says that during her last outpatient ID appointment that she was told she was doing well. - Past medical history includes hypertension, hyperlipidemia, rheumatoid arthritis, CKD stage III, chronic anemia, melanoma, bilateral leg cellulitis, bilateral sacral fracture 2016, pneumonia, obesity. - Past surgical history includes cataracts, JUAN/BSO, right total hip replacement and revision, bilateral total knee replacements. - Social history includes denying ever smoking. Does not drink. Lives at home with her dog. Allergies Allergy/AdvReac Type Severity Reaction Status Date / Time cefadroxil Allergy Intermediate Rash Verified 10/21/18 00:12 Sulfa (Sulfonamide Allergy Unknown RASH Verified 10/21/18 00:12 Antibiotics) oxycodone AdvReac Unknown NAUSEA Verified 10/21/18 00:12 Home Medications Home Medications Medication Instructions Recorded Confirmed Type aspirin [Ecotrin] 325 mg PO QAM 08/06/18 10/21/18 History hydroxychloroquine 400 mg PO QAM 08/06/18 10/21/18 History leflunomide 20 mg PO QAM 08/06/18 10/21/18 History pravastatin 20 mg PO QPM 08/06/18 10/21/18 History prednisone 2.5 mg PO QAM 08/06/18 10/21/18 History prednisone 5 mg PO QAM 08/06/18 10/21/18 History losartan 75 mg PO QAM #30 tab 08/16/18 10/21/18 Rx nystatin 1 applic TOPICAL TID 10/21/18 10/21/18 History Past Med/Surg History Medical History Rheumatoid arthritis (Chronic) Anemia Cancer MELANOMA Cellulitis BILATERAL LEGS AND FEET, INPATIENT [facility] (JULY 2018) Chronic steroid use Fracture of sacrum BILATERAL. ~2017, PHYSICAL THERAPY. USES WALKER HLD (hyperlipidemia) HTN (hypertension) No blood products PER PATIENT REQUEST Obesity Pneumonia AUGUST 2017 Surgical History History of cataract surgery BILATERAL History of colonoscopy History of surgical removal of skin lesion BACK History of total hip replacement RIGHT S/P JUAN-BSO S/P revision of total hip RIGHT Total knee replacement status BILATERAL Family History Father Non Hodgkin's lymphoma Mother Coronary heart disease Social History Preferred Language: Sudanese Communication Ability: Effective Beliefs That Will Affect Care: None marital status: Single Current Living Situation: Alone current occupational status: retired 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. Feels Safe at Home: Yes Smoking Status: Never smoker Second Hand Exposure: No Hx Alcohol Use: No Hx Substance Use: No Review of Systems Review of Systems: Constitutional: Denies fevers, chills, focal weakness. Eyes: Denies any visual loss or diplopia ENT: Positive gurgling with speech, mild hoarse voice, and sore throat. Respiratory: Positive cough. Denies shortness of breath. Cardiovascular: Denies any chest pain. Positive lower extremity edema. Gastrointestinal: Denies any abdominal pain, nausea/vomiting/diarrhea Musculoskeletal: Denies any acute extremity pains, myalgias, or focal weakness Skin: Positive resolving bilateral extremity cellulitis. Neuro: Denies any headache, acute focal weakness or numbness. Physical Exam Physical Exam: Constitutional: Denies fevers, chills, focal weakness. Eyes: Denies any visual loss or diplopia ENT: Positive gurgling with speech, mild hoarse voice, and sore throat. Respiratory: Positive cough. Denies shortness of breath. Cardiovascular: Denies any chest pain. Positive lower extremity edema. Gastrointestinal: Denies any abdominal pain, nausea/vomiting/diarrhea Musculoskeletal: Denies any acute extremity pains, myalgias, or focal weakness Skin: Positive resolving bilateral extremity cellulitis. Neuro: Denies any headache, acute focal weakness or numbness. Results & Data Vital Signs (Past 12 Hours) Vital Signs Temp Pulse Pulse Resp BP BP Pulse Ox 10/21/18 03:30 96 H 28 H 135/71 97 10/21/18 02:30 91 H 40 H 131/67 93 10/21/18 01:24 37.6 C H 79 21 125/70 96 10/21/18 00:01 97 H 30 H 148/76 H 96 10/20/18 23:43 92 10/20/18 23:37 95 H 35 H 157/69 H 96 10/20/18 21:45 37.8 C H 99 H 20 121/78 93 Laboratory Results 10/21/18 10/20/18 10/20/18 Range/Units 00:35 23:49 23:49 WBC (4.8-10.8) K/uL RBC (4.2-5.4) M/uL Hgb (12.0-16.0) g/dL Hct (37-47) % MCV (80-100) fL MCH (25-34) pg MCHC (32-36) g/dL RDW Std Deviation (36.4-46.3) fL RDW Coeff of Saadia (11.5-14.5) % Plt Count (130-400) K/uL MPV (7.4-10.4) fL Immature Gran % (Auto) % Neut % (Auto) % Lymph % (Auto) % [place] % (Auto) % Eos % (Auto) % Baso % (Auto) % Immature Gran # (Auto) (0.00-0.02) K/uL Neut # (Auto) (1.4-6.5) K/uL Lymph # (Auto) (1.2-3.4) K/uL [place] # (Auto) (0.11-0.59) K/uL Eos # (Auto) (0-0.5) K/uL Baso # (Auto) (0-0.2) K/uL PT 10.2 (9.0-12.0) Seconds INR 1.0 (0.9-1.1) APTT 26.5 (21.0-31.0) Seconds PTT Ratio 1.0 Sodium 145 (136-145) mmol/L Potassium 3.8 (3.5-5.1) mmol/L Chloride 113 H (98-107) mmol/L Carbon Dioxide 25 (21-32) mmol/L Anion Gap 7.0 (3-11) BUN 23 H (7-18) mg/dl Creatinine 1.38 H (0.6-1.2) mg/dl Est Cr Clr Drug Dosing Not Reportable Est GFR ( Amer) 44.2 Est GFR (Non-Af Amer) 38.1 BUN/Creatinine Ratio 16.4 (10-20) Glucose 100 H (70-99) mg/dl Calcium 9.1 (8.5-10.1) mg/dl Total Bilirubin 0.5 (0.2-1) mg/dl AST 17 (15-37) U/L ALT 20 (12-78) U/L Alkaline Phosphatase 85 (45-117) U/L Troponin I 0.015 (0-0.045) ng/ml NT-Pro-B Natriuret Pep 1184 H (0-900) pg/ml Total Protein 6.2 L (6.4-8.2) gm/dl Albumin 3.3 L (3.4-5.0) gm/dl Globulin 2.9 (2.5-4.0) gm/dl Albumin/Globulin Ratio 1.1 (0.9-2) Urine Color Yellow Urine Appearance Clear (Clear) Urine pH 5.0 (4.5-7.5) Ur Specific [place] 1.023 (1.000-1.030) Urine Protein Trace H (Negative) Urine Glucose (UA) Negative (Negative) Urine Ketones Trace H (Negative) Urine Blood Negative (Negative) Urine Nitrite Negative (Negative) Urine Bilirubin Negative (Negative) Urine Urobilinogen Negative (Negative) Ur Leukocyte Esterase Negative (Negative) Urine WBC (Auto) 1-5 (0-5) /hpf Urine RBC (Auto) 0-4 (0-4) /hpf U Hyaline Cast (Auto) 1-5 (0-5) /lpf U Epithel Cells (Auto) >30 H (0-5) /lpf Urine Bacteria (Auto) Negative (Negative) 10/20/18 Range/Units 23:49 WBC 8.49 (4.8-10.8) K/uL RBC 4.51 (4.2-5.4) M/uL Hgb 11.7 L (12.0-16.0) g/dL Hct 37.4 (37-47) % MCV 82.9 (80-100) fL MCH 25.9 (25-34) pg MCHC 31.3 L (32-36) g/dL RDW Std Deviation 48.0 H (36.4-46.3) fL RDW Coeff of Saadia 15.8 H (11.5-14.5) % Plt Count 121 L (130-400) K/uL MPV 9.5 (7.4-10.4) fL Immature Gran % (Auto) 0.1 % Neut % (Auto) 84.8 % Lymph % (Auto) 5.5 % [place] % (Auto) 9.1 % Eos % (Auto) 0.4 % Baso % (Auto) 0.1 % Immature Gran # (Auto) 0.01 (0.00-0.02) K/uL Neut # (Auto) 7.20 H (1.4-6.5) K/uL Lymph # (Auto) 0.47 L (1.2-3.4) K/uL [place] # (Auto) 0.77 H (0.11-0.59) K/uL Eos # (Auto) 0.03 (0-0.5) K/uL Baso # (Auto) 0.01 (0-0.2) K/uL PT (9.0-12.0) Seconds INR (0.9-1.1) APTT (21.0-31.0) Seconds PTT Ratio Sodium (136-145) mmol/L Potassium (3.5-5.1) mmol/L Chloride (98-107) mmol/L Carbon Dioxide (21-32) mmol/L Anion Gap (3-11) BUN (7-18) mg/dl Creatinine (0.6-1.2) mg/dl Est Cr Clr Drug Dosing Est GFR ( Amer) Est GFR (Non-Af Amer) BUN/Creatinine Ratio (10-20) Glucose (70-99) mg/dl Calcium (8.5-10.1) mg/dl Total Bilirubin (0.2-1) mg/dl AST (15-37) U/L ALT (12-78) U/L Alkaline Phosphatase (45-117) U/L Troponin I (0-0.045) ng/ml NT-Pro-B Natriuret Pep (0-900) pg/ml Total Protein (6.4-8.2) gm/dl Albumin (3.4-5.0) gm/dl Globulin (2.5-4.0) gm/dl Albumin/Globulin Ratio (0.9-2) Urine Color Urine Appearance (Clear) Urine pH (4.5-7.5) Ur Specific [place] (1.000-1.030) Urine Protein (Negative) Urine Glucose (UA) (Negative) Urine Ketones (Negative) Urine Blood (Negative) Urine Nitrite (Negative) Urine Bilirubin (Negative) Urine Urobilinogen (Negative) Ur Leukocyte Esterase (Negative) Urine WBC (Auto) (0-5) /hpf Urine RBC (Auto) (0-4) /hpf U Hyaline Cast (Auto) (0-5) /lpf U Epithel Cells (Auto) (0-5) /lpf Urine Bacteria (Auto) (Negative) Medications Administered Discontinued Medications Acetaminophen (Tylenol) 1,000 mg PO NOW STA Stop: 10/21/18 03:17 Last Admin: 10/21/18 03:21 Dose: 1,000 mg Documented by: [id number] Furosemide (Lasix) Confirm Administered Dose 40 mg IV .STK-MED ONE Stop: 10/21/18 01:51 Last Admin: 10/21/18 01:52 Dose: 20 mg Documented by: [id number] Furosemide 20 mg/ Syringe 2 mls @ 4 mls/min IV ONE ONE Stop: 10/21/18 01:49 Last Admin: 10/21/18 01:52 Dose: Not Given Documented by: [id number] Code Status & VTE Plan Code Status Full code VTE Prophylaxis Plan VTE Prophylaxis will be ordered: Yes Supervising Physician Co-Signing Physician Notes Patient seen and examined, chart reviewed, case discussed with Dr. Sosa and I agree with his assessment and plan as documented above. Briefly, patient is a 72yo female with RA presenting with hoarseness, SOB, cough which began after a routine/uncomplicated colonoscopy. Findings suggestive of new onset CHF/pulmonary edema On exam she is afebrile, hemodynamically stable, tachypneic, saturating 97% on 3L +hoarseness +crackles in bilateral bases +ectopy on cardiac exam Labs, images reviewed Assessment/Plan: -Admit to medical floor -Gentle diuresis -Check 2D echo -Remainder of plan as above PG Care Time/CCT Total # of Minutes Spent Total Time Spent with Patient: Total time spent is greater than 50% in coordination of care (as documented) at patient's floor/unit and/or counseling patient: Resident Activity Tracking Resident Involvement: Resident Care Provided Care Provided: Adult Hospital Medicine
[2018-10-21] MEDS ORDERED: ACETAMINOPHEN 325 MG TAB PO PRN (05:51)
[2018-10-21] MEDS ORDERED: NITROGLYCERIN 2% OINTMENT 30GM TUBE EXT ONE (06:30)
[2018-10-21] MEDS ORDERED: FUROSEMIDE 40 MG in SYRINGE 0 ML IV ONE (06:30)
--- NOTE | 2018-10-21 06:45 | XRay Report ---
XR chest 1V portable HISTORY: 72 years-old Female Dyspnea acute shortness of breath COMPARISON: Chest radiograph 09/24/2017 TECHNIQUE: Portable AP view of the chest FINDINGS: Cardiac silhouette is mildly enlarged. Calcification of the thoracic aortic arch. Hazy ill-defined op acities about the medial right lung base. There is no pneumothorax, pleural effusion or overt pulmona ry edema. The left lung appears clear. Degenerative changes of the shoulders and spine. IMPRESSION: 1. Ill-defined opacities of the medial right lung base suggest atelectasis or pneumonia. Correlate cl inically. 2. Cardiomegaly without overt pulmonary edema. The above report was generated using voice recognition software. It may contain grammatical, syntax o r spelling errors. Electronically signed by: Arian Zee M.D. 10/21/2018 6:43 AM
[2018-10-21] MEDS: LOSARTAN POTASSIUM 50 MG TAB PO SCH (08:31)
[2018-10-21] MEDS: predniSONE 5 MG TAB PO SCH (08:32)
[2018-10-21] MEDS: ASPIRIN 325 MG ECTAB PO SCH (08:32)
[2018-10-21] MEDS: predniSONE 2.5 MG TAB PO SCH (08:33)
[2018-10-21] MEDS: LEFLUNOMIDE 10 MG TAB PO SCH (08:33)
[2018-10-21] MEDS: HYDROXYCHLOROQUINE SULFATE 200 MG TAB PO SCH (08:33)
[2018-10-21] MEDS: ENOXAPARIN INJ 40 MG/0.4 ML SYR SQ SCH (08:34)
--- NOTE | 2018-10-21 08:59 | Emergency Department Note ---
Entered by Haydee Xiao acting as a scribe for Margaret Nelson DO History of Present Illness General Chief complaint: Dizziness Stated complaint: DIZZY, COUGH, HAD COLONOSCOPY A WEEK AGO Time Seen by Provider: 10/20/18 23:00 Source: patient History of Present Illness Provider complaint: sore throat Onset (ago): week(s) 1 Location: head (throat) Pain Consistency: + constant Maximum Pain Intensity: 5 Quality: + other (grugling in throat and sore ) Relieved By: + none Associated symptoms: + denies other symptoms, + cough, + headaches and + other (loss of voice) The patient is a 72 y/o female who presents to the emergency department for evaluation of constant sore throat and gurgling in the throat that began a week ago. The patient states that she had a colonoscopy last Thursday and when she woke up she had a sore throat and gurgles in her throat with breathing. The patient states that it has become intolerable to deal with when breathing. She notes that she does not feel she is having trouble breathing. The patient reports that he has a cough for two days but has no production. She notes that when she coughs she gets a headache. The patient denies a history of CHF, smoking, and any other symptoms. Home Medications Home Medications Medication Instructions Recorded Confirmed Type aspirin [Ecotrin] 325 mg PO QAM 08/06/18 10/21/18 History hydroxychloroquine 400 mg PO QAM 08/06/18 10/21/18 History leflunomide 20 mg PO QAM 08/06/18 10/21/18 History pravastatin 20 mg PO QPM 08/06/18 10/21/18 History prednisone 2.5 mg PO QAM 08/06/18 10/21/18 History prednisone 5 mg PO QAM 08/06/18 10/21/18 History losartan 75 mg PO QAM #30 tab 08/16/18 10/21/18 Rx nystatin 1 applic TOPICAL TID 10/21/18 10/21/18 History Allergies Allergy/AdvReac Type Severity Reaction Status Date / Time cefadroxil Allergy Intermediate Rash Verified 10/21/18 00:12 Sulfa (Sulfonamide Allergy Unknown RASH Verified 10/21/18 00:12 Antibiotics) oxycodone AdvReac Unknown NAUSEA Verified 10/21/18 00:12 Past Med/Surg History Medical History Rheumatoid arthritis (Chronic) Anemia Cancer MELANOMA Cellulitis BILATERAL LEGS AND FEET, INPATIENT [facility] (JULY 2018) Chronic steroid use Fracture of sacrum BILATERAL. ~2016, PHYSICAL THERAPY. USES WALKER HLD (hyperlipidemia) HTN (hypertension) No blood products PER PATIENT REQUEST Obesity Pneumonia AUGUST 2017 Surgical History History of cataract surgery BILATERAL History of colonoscopy History of surgical removal of skin lesion BACK History of total hip replacement RIGHT S/P JUAN-BSO S/P revision of total hip RIGHT Total knee replacement status BILATERAL Family History Father Non Hodgkin's lymphoma Mother Coronary heart disease Social History Preferred Language: Turkmen Communication Ability: Effective Beliefs That Will Affect Care: None marital status: Single Current Living Situation: Alone current occupational status: retired 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 Feels Safe at Home: Yes Smoking Status: Never smoker Second Hand Exposure: No Hx Alcohol Use: No Hx Substance Use: No Review of Systems See HPI for pertinent positives & negatives. and A total of 10 systems reviewed and were otherwise negative Physical Exam Vital Signs Vital Signs - 24 hr 10/20/18 23:37 10/20/18 23:43 10/21/18 00:01 Temperature Temperature Source Oxygen Flow Rate - Titration 3 Pulse Oximetry Post Tiitration 91 Pulse Rate [Apical] 95 H 97 H Respiratory Rate 35 H 30 H Blood Pressure [Right Arm] 157/69 H 148/76 H Blood Pressure Mean [Right Arm] 98 100 Pulse Oximetry 96 92 96 Oxygen Delivery Method Nasal Cannula Nasal Cannula Nasal Cannula Oxygen Flow Rate 3 3 3 10/21/18 01:24 10/21/18 02:30 10/21/18 03:30 Temperature 37.6 C H Temperature Source Oral Oxygen Flow Rate - Titration Pulse Oximetry Post Tiitration Pulse Rate [Apical] 79 91 H 96 H Respiratory Rate 21 40 H 28 H Blood Pressure [Right Arm] 125/70 131/67 135/71 Blood Pressure Mean [Right Arm] 88 88 92 Pulse Oximetry 96 93 97 Oxygen Delivery Method Nasal Cannula Nasal Cannula Nasal Cannula Oxygen Flow Rate 3 3 3 10/21/18 04:30 Temperature Temperature Source Oxygen Flow Rate - Titration Pulse Oximetry Post Tiitration Pulse Rate [Apical] 80 Respiratory Rate 30 H Blood Pressure [Right Arm] 117/80 Blood Pressure Mean [Right Arm] 92 Pulse Oximetry 96 Oxygen Delivery Method Nasal Cannula Oxygen Flow Rate 3 GENERAL: Dyspneic speech HEENT: Head - normocephalic and atraumatic Pupils are equal, round, and reactive to light. Extraocular eye muscles are intact, and sclera are anicteric. Nose - moist nasal mucosa without discharge. Mouth - moist buccal mucosa. Oropharynx is nonerythematous and there is no tonsillar exudate or edema noted. Neck: Supple; no JVD, nuchal rigidity, cervical lymphadenopathy, or auscultated bruits. Heart: Regular rate and rhythm. There is a normal S1 and S2 with no murmurs, clicks, or gallops appreciated. Lungs: No wheezes, or rhonchi. Gurgling with communication. Rales at both bases Abdomen: Soft, completely nontender, nondistended, with good bowel sounds. There are no palpable pulsatile masses or hepatosplenomegaly. There is no guarding, rigidity, or rebound noted. Extremities: No evidence of cyanosis, clubbing, or edema. There are easily palpable peripheral pulses. Skin: warm and dry with good turgor and no rashes. Course 2328: Past medical records reviewed. The patient was evaluated in room B06. A complete history and physical exam was performed. Laboratory studies were drawn as above. A twelve-lead EKG was obtained as described above. The patient had a chest x-ray 0150: I checked on the patient and updated her on her results. During my initial evaluation, the patient's O2 saturations were in the low 90s. They have dropped into the mid to upper 80s. She was placed on supplemental oxygen. I also ordered 20 mg Lasix IV. 0233: I spoke with Dr. Andi WHITT, she will evaluate for further management. Consultations Consultation #1: I spoke with Dr. Andi WHITT, she will evaluate for further management. Time: 02:33 Administered Medications Aspirin (Ecotrin) 325 mg [facility] Stop: 11/20/18 08:59 Last Admin: 10/21/18 08:32 Dose: 325 mg Documented by: [id number] Enoxaparin Sodium (Lovenox) 40 mg SQ Q24H [facility] Stop: 11/20/18 07:59 Last Admin: 10/21/18 08:34 Dose: 40 mg Documented by: [id number] Hydroxychloroquine Sulfate (Plaquenil) [address] [facility] Stop: 11/20/18 08:59 Last Admin: 10/21/18 08:33 Dose: 400 mg Documented by: [id number] Leflunomide (Arava) [address] [facility] Stop: 11/20/18 08:59 Last Admin: 10/21/18 08:33 Dose: 20 mg Documented by: [id number] Losartan Potassium (Cozaar) [address] [facility] Stop: 11/20/18 08:59 Last Admin: 10/21/18 08:31 Dose: 75 mg Documented by: [id number] Pravastatin Sodium (Pravachol) 20 mg PO QPM [facility] Stop: 11/20/18 20:59 Last Admin: 10/21/18 20:59 Dose: 20 mg Documented by: [id number] Prednisone (Prednisone) 2.[address] [facility] Stop: 11/20/18 08:59 Last Admin: 10/21/18 08:33 Dose: 2.5 mg Documented by: [id number] Prednisone (Prednisone) [address] [facility] Stop: 11/20/18 08:59 Last Admin: 10/21/18 08:32 Dose: 5 mg Documented by: [id number] Discontinued Medications Acetaminophen (Tylenol) 1,000 mg PO NOW [facility] Stop: 10/21/18 03:17 Last Admin: 10/21/18 03:21 Dose: 1,000 mg Documented by: [id number] Furosemide (Lasix) Confirm Administered Dose 40 mg IV .STK-MED ONE Stop: 10/21/18 01:51 Last Admin: 10/21/18 01:52 Dose: 20 mg Documented by: [id number] Furosemide 20 mg/ Syringe 2 mls @ 4 mls/min IV ONE ONE Stop: 10/21/18 01:49 Last Admin: 10/21/18 01:52 Dose: Not Given Documented by: [id number] Furosemide 40 mg/ Syringe 4 mls @ 4 mls/min IV ONE ONE Stop: 10/21/18 06:31 Last Admin: 10/21/18 07:19 Dose: 4 mls/min Documented by: [id number] Nitroglycerin (Nitro-Bid 2%) 0.5 inch EXT ONE ONE Stop: 10/21/18 06:31 Last Admin: 10/21/18 07:19 Dose: 0.5 inch Documented by: [id number] Medical Decision Making Differential Diagnosis Differential Diagnosis: CHF, pneumonia, trauma to posterior oral pharynx, Pharyngitis. Medical Records Attestation: I reviewed the patient's medical records. Home Medications Current Medication List: was personally reviewed by me Laboratory Data Attestation: I reviewed the patient's lab results. Result diagrams: 10/20/18 23:49 10/20/18 23:49 Lab Results 10/20/18 10/20/18 10/20/18 Range/Units 23:49 23:49 23:49 WBC 8.49 (4.8-10.8) K/uL RBC 4.51 (4.2-5.4) M/uL Hgb 11.7 L (12.0-16.0) g/dL Hct 37.4 (37-47) % MCV 82.9 (80-100) fL MCH 25.9 (25-34) pg MCHC 31.3 L (32-36) g/dL RDW Std Deviation 48.0 H (36.4-46.3) fL RDW Coeff of Saadia 15.8 H (11.5-14.5) % Plt Count 121 L (130-400) K/uL MPV 9.5 (7.4-10.4) fL Immature Gran % (Auto) 0.1 % Neut % (Auto) 84.8 % Lymph % (Auto) 5.5 % [place] % (Auto) 9.1 % Eos % (Auto) 0.4 % Baso % (Auto) 0.1 % Immature Gran # (Auto) 0.01 (0.00-0.02) K/uL Neut # (Auto) 7.20 H (1.4-6.5) K/uL Lymph # (Auto) 0.47 L (1.2-3.4) K/uL [place] # (Auto) 0.77 H (0.11-0.59) K/uL Eos # (Auto) 0.03 (0-0.5) K/uL Baso # (Auto) 0.01 (0-0.2) K/uL PT 10.2 (9.0-12.0) Seconds INR 1.0 (0.9-1.1) APTT 26.5 (21.0-31.0) Seconds PTT Ratio 1.0 Sodium 145 (136-145) mmol/L Potassium 3.8 (3.5-5.1) mmol/L Chloride 113 H (98-107) mmol/L Carbon Dioxide 25 (21-32) mmol/L Anion Gap 7.0 (3-11) BUN 23 H (7-18) mg/dl Creatinine 1.38 H (0.6-1.2) mg/dl Est Cr Clr Drug Dosing Not Reportable Est GFR ( Amer) 44.2 Est GFR (Non-Af Amer) 38.1 BUN/Creatinine Ratio 16.4 (10-20) Glucose 100 H (70-99) mg/dl Calcium 9.1 (8.5-10.1) mg/dl Total Bilirubin 0.5 (0.2-1) mg/dl AST 17 (15-37) U/L ALT 20 (12-78) U/L Alkaline Phosphatase 85 (45-117) U/L Troponin I 0.015 (0-0.045) ng/ml NT-Pro-B Natriuret Pep 1184 H (0-900) pg/ml Total Protein 6.2 L (6.4-8.2) gm/dl Albumin 3.3 L (3.4-5.0) gm/dl Globulin 2.9 (2.5-4.0) gm/dl Albumin/Globulin Ratio 1.1 (0.9-2) Urine Color Urine Appearance (Clear) Urine pH (4.5-7.5) Ur Specific [place] (1.000-1.030) Urine Protein (Negative) Urine Glucose (UA) (Negative) Urine Ketones (Negative) Urine Blood (Negative) Urine Nitrite (Negative) Urine Bilirubin (Negative) Urine Urobilinogen (Negative) Ur Leukocyte Esterase (Negative) Urine WBC (Auto) (0-5) /hpf Urine RBC (Auto) (0-4) /hpf U Hyaline Cast (Auto) (0-5) /lpf U Epithel Cells (Auto) (0-5) /lpf Urine Bacteria (Auto) (Negative) 10/21/18 Range/Units 00:35 WBC (4.8-10.8) K/uL RBC (4.2-5.4) M/uL Hgb (12.0-16.0) g/dL Hct (37-47) % MCV (80-100) fL MCH (25-34) pg MCHC (32-36) g/dL RDW Std Deviation (36.4-46.3) fL RDW Coeff of Saadia (11.5-14.5) % Plt Count (130-400) K/uL MPV (7.4-10.4) fL Immature Gran % (Auto) % Neut % (Auto) % Lymph % (Auto) % [place] % (Auto) % Eos % (Auto) % Baso % (Auto) % Immature Gran # (Auto) (0.00-0.02) K/uL Neut # (Auto) (1.4-6.5) K/uL Lymph # (Auto) (1.2-3.4) K/uL [place] # (Auto) (0.11-0.59) K/uL Eos # (Auto) (0-0.5) K/uL Baso # (Auto) (0-0.2) K/uL PT (9.0-12.0) Seconds INR (0.9-1.1) APTT (21.0-31.0) Seconds PTT Ratio Sodium (136-145) mmol/L Potassium (3.5-5.1) mmol/L Chloride (98-107) mmol/L Carbon Dioxide (21-32) mmol/L Anion Gap (3-11) BUN (7-18) mg/dl Creatinine (0.6-1.2) mg/dl Est Cr Clr Drug Dosing Est GFR ( Amer) Est GFR (Non-Af Amer) BUN/Creatinine Ratio (10-20) Glucose (70-99) mg/dl Calcium (8.5-10.1) mg/dl Total Bilirubin (0.2-1) mg/dl AST (15-37) U/L ALT (12-78) U/L Alkaline Phosphatase (45-117) U/L Troponin I (0-0.045) ng/ml NT-Pro-B Natriuret Pep (0-900) pg/ml Total Protein (6.4-8.2) gm/dl Albumin (3.4-5.0) gm/dl Globulin (2.5-4.0) gm/dl Albumin/Globulin Ratio (0.9-2) Urine Color Yellow Urine Appearance Clear (Clear) Urine pH 5.0 (4.5-7.5) Ur Specific [place] 1.023 (1.000-1.030) Urine Protein Trace H (Negative) Urine Glucose (UA) Negative (Negative) Urine Ketones Trace H (Negative) Urine Blood Negative (Negative) Urine Nitrite Negative (Negative) Urine Bilirubin Negative (Negative) Urine Urobilinogen Negative (Negative) Ur Leukocyte Esterase Negative (Negative) Urine WBC (Auto) 1-5 (0-5) /hpf Urine RBC (Auto) 0-4 (0-4) /hpf U Hyaline Cast (Auto) 1-5 (0-5) /lpf U Epithel Cells (Auto) >30 H (0-5) /lpf Urine Bacteria (Auto) Negative (Negative) Imaging Data Attestation: I personally reviewed and interpreted this imaging study as follows: My Impression: Chest X-ray shows cardiomegaly and pulmonary vascular congestion. Blood Pressure Blood Pressure Findings: Normal blood pressure Blood Pressure Disposition: further management by hospitalist Additional Comments: The patient is a 72 y/o female who presents to the emergency department for evaluation of constant sore throat and gurgling in the throat that began a week ago. MDM Narrative This is a 72-year-old female patient who presents to the emergency department with shortness of breath and a wet cough. The patient has obvious gurgling when she communicates. She can only communicate 2-3 words at the time. The patient had an uncomplicated colonoscopy last week and developed sore throat immediately following the procedure. I was leaning towards an infectious process such as pneumonia or bronchitis as the cause of her symptoms but she is afebrile and has no leukocytosis. The patient has an elevated BNP, rales in her lungs, and was hypoxic. She was given 20 mill grams of IV Lasix with significant diuresis. I discussed the case with the [facility] hospitalist and they will evaluate for further management. Impression & Plan Hypoxia Critical Care Time Critical Care Time: Yes Total Critical Care Time: 30 I have personally spent 30 minutes of critical care time in the direct management of this patient. This includes bedside care, interpretation of diagnostic studies, and testing, discussion with consultants, patient, and family members, and other required patient management activities. This 30 minutes is in excess of all separately billable procedures. Discharge Plan Visit Data *Final* Discharge Date/Time: 10/21/18 05:28 Chief Complaint: Dizziness Stated Complaint: DIZZY, COUGH, HAD COLONOSCOPY A WEEK AGO ED Provider: Margaret Nelson Discharge Problem: Hypoxia Patient Disposition: Admitted As Inpatient Discharge Instructions Interventions: ED Discharge Assessment Last Done: 10/21/18 05:28 The scribe's documentation has been prepared under my direction and personally reviewed by me in its entirety. I confirm that the note above accurately reflects all work, treatment, procedures, and medical decision making performed by me.
[2018-10-21] MEDS ORDERED: EUCERIN CR 120 GM JAR EXT PRN (09:24)
--- NOTE | 2018-10-21 12:21 | Family Medicine Progress Note ---
Date of Service October 21, 2018 Assessment & Plan (1) Chronic anemia: Dona Villalpando is a 72 year old woman who presents with hoarseness of voice following colonoscopy on October 13. Hoarseness Unclear cause patient with colonoscopy October 13 told me she awoke in PACU and had zero voice Slowly returned but has remained hoarse and feels like she is gargling in her throat She does not endorse any sore throat or any shortness of breath. She has no other symptoms she is reporting at the moment Had some difficulty swallowing pills earlier this week, but appears to be improved Speech therapy to evaluate Will consult ENT for further evaluation Hypoxemic respiratory failure No evidence for pulmonary edema some ill defined atelectasis vs pneumonia in RLL Currently on 3L via NC will attempt to wean off Anemia Chronic, at or even above baseline CKD Creatinine 1.38 is about baseline Rheumatoid Arthritis Continue home medication regime Leflunomide, prednisone, hydroxychloroquine Bilateral venous stasis Hydrocerin cream as needed F/E/N: Oral diet swallowing well DVT PPx Lovenox Dispo: Med Surg (2) Thrombocytopenia: (3) Hoarseness of voice: (4) Acute hypoxemic respiratory failure: Supervising Physician Co-Signing Physician Notes Resident Physician Supervision Note: I independently interviewed and examined the patient and verified the wood history and physical, reviewed labs and image studies, discussed the case with the resident Dr. Moreno and agree with the findings and care plan. Subjective See today's H and P Physical Exam Physical Exam: See today's H and P Results & Data Vital Signs (Past 12 Hours) Vital Signs Temp Pulse Pulse Resp BP BP Pulse Ox 10/21/18 12:09 90 10/21/18 07:20 37.0 C 74 16 115/72 97 10/21/18 05:45 36.8 C 80 22 144/85 H 96 10/21/18 05:26 36.8 C 73 27 H 109/61 97 10/21/18 04:30 80 30 H 117/80 96 10/21/18 03:30 96 H 28 H 135/71 97 10/21/18 02:30 91 H 40 H 131/67 93 10/21/18 01:24 37.6 C H 79 21 125/70 96 PG Care Time/CCT Total # of Minutes Spent Total Time Spent with Patient: Total time spent is greater than 50% in coordination of care (as documented) at patient's floor/unit and/or counseling patient: Resident Activity Tracking Resident Involvement: Resident Care Provided Care Provided: Adult Hospital Medicine
[2018-10-21] MEDS: PRAVASTATIN SOD 20 MG TAB PO SCH (20:59)
[2018-10-21] MEDS ORDERED: MICONAZOLE NITRATE POWDER 43 GM EXT PRN (21:56)
[2018-10-22] MEDS: ENOXAPARIN INJ 40 MG/0.4 ML SYR SQ SCH (08:14)
[2018-10-22] MEDS: LEFLUNOMIDE 10 MG TAB PO SCH (08:15)
[2018-10-22] MEDS: ASPIRIN 325 MG ECTAB PO SCH (08:16)
[2018-10-22] MEDS: LOSARTAN POTASSIUM 50 MG TAB PO SCH (08:16)
[2018-10-22] MEDS: HYDROXYCHLOROQUINE SULFATE 200 MG TAB PO SCH (08:16)
[2018-10-22] MEDS: predniSONE 5 MG TAB PO SCH (08:17)
[2018-10-22] MEDS: predniSONE 2.5 MG TAB PO SCH (08:17)
--- NOTE | 2018-10-22 09:48 | XRay Report ---
XR chest 1V portable CLINICAL HISTORY: Hypoxemia pneumonia COMPARISON STUDY: 10/20/2018 FINDINGS: Improving infiltrative change right base. Minimal vascular prominence as residual. Minimal upper lungs are clear. Diaphragms are smooth. IMPRESSION: Improving right basilar infiltrate. The above report was generated using voice recognition software. It may contain grammatical, syntax or spelling errors. Electronically signed by: Rocael Carver M.D. 10/22/2018 9:47 AM
--- NOTE | 2018-10-22 14:56 | Family Medicine Progress Note ---
Date of Service October 22, 2018 Assessment & Plan (1) Acute hypoxemic respiratory failure: Dona Villalpando is a 72 year old woman who presents with hoarseness of voice following colonoscopy on October 13. Hoarseness Unclear cause patient with colonoscopy October 13 told me she awoke in PACU and had zero voice Slowly returned but has remained hoarse and feels like she is gargling in her throat She does not endorse any sore throat or any shortness of breath. She has no other symptoms she is reporting at the moment Had some difficulty swallowing pills earlier this week, but appears to be improved Speech therapy evaluated and patient had no dysfunction from their point of view ENT to see patient later this afternoon Hypoxemic respiratory failure No evidence for pulmonary edema some ill defined atelectasis vs pneumonia in RLL Appears improved via imaging, still requiring supplemental O2 Currently on 2L NC Anemia Chronic, at or even above baseline CKD Creatinine 1.38 is about baseline Rheumatoid Arthritis Continue home medication regime Leflunomide, prednisone, hydroxychloroquine Bilateral venous stasis Hydrocerin cream as needed Diarrhea Started yesterday afternoon 3-4 episodes of soft bowel motions she calls them semi formed Will continue to monitor F/E/N: Oral diet swallowing well DVT PPx Lovenox Dispo: Med Surg (2) Hoarseness of voice: (3) Chronic anemia: (4) Thrombocytopenia: Supervising Physician Co-Signing Physician Notes Resident Physician Supervision Note: I independently interviewed and examined the patient and verified the wood history and physical, reviewed labs and image studies, discussed the case with the resident Dr. Moreno and agree with the findings and care plan. Subjective Dona Villalpando is in bed today resting comfortably. She is very anxious about her current condition. She states that she does not want to go home until her voice is fixed. She endorses no shortness of breath, and a cough but only to clear her throat which she is unable to do. She has no abdominal pain, nausea or vomiting, but has been having diarrhea. Review of Systems Review of Systems: All systems reviewed & are unremarkable except as noted in HPI & below Physical Exam Constitutional: well developed and well nourished; no acute distress Respiratory: normal respiratory effort, lungs clear to auscultation Good air movement globally breath sounds vesicular, but stridorous/stertorous breathing upper airway. Cardiovascular: RRR, no murmur, no edema Gastrointestinal (Abdomen): normal bowel sounds, soft, nontender, no hepatosplenomegaly Results & Data Vital Signs (Past 12 Hours) Vital Signs Temp Pulse Resp BP Pulse Ox 10/22/18 07:06 37 C 51 L 18 122/60 94 PG Care Time/CCT Total # of Minutes Spent Total Time Spent with Patient: Total time spent is greater than 50% in coordination of care (as documented) at patient's floor/unit and/or counseling patient: Resident Activity Tracking Resident Involvement: Resident Care Provided Care Provided: Adult Hospital Medicine
--- NOTE | 2018-10-22 16:45 | ENT Consultation ---
Date of Consultation October 22, 2018 Assessment & Plan (1) Aspiration pneumonia due to gastric secretions: The patient was instructed to cough which she was able to do she does have an incentive spirometer that she is not using. Her chest x-ray showed right basilar infiltrate that is improving. She needs to ambulate and cough and use the incentive spirometer. History of Present Illness Reason for Consultation: Hypoxia, consultation requested by Dr. Rodrigue Moreno, PGY 2 Attending Physician: Aranza Montez MD History of Present Illness She underwent colonoscopy last week and had acute respiratory distress with loss of voice after colonoscopy and was admitted for hypoxia Allergies Allergy/AdvReac Type Severity Reaction Status Date / Time cefadroxil Allergy Intermediate Rash Verified 10/21/18 00:12 Sulfa (Sulfonamide Allergy Unknown RASH Verified 10/21/18 00:12 Antibiotics) oxycodone AdvReac Unknown NAUSEA Verified 10/21/18 00:12 Home Medications Home Medications Medication Instructions Recorded Confirmed Type aspirin [Ecotrin] 325 mg PO QAM 08/06/18 10/21/18 History hydroxychloroquine 400 mg PO QAM 08/06/18 10/21/18 History leflunomide 20 mg PO QAM 08/06/18 10/21/18 History pravastatin 20 mg PO QPM 08/06/18 10/21/18 History prednisone 2.5 mg PO QAM 08/06/18 10/21/18 History prednisone 5 mg PO QAM 08/06/18 10/21/18 History losartan 75 mg PO QAM #30 tab 08/16/18 10/21/18 Rx nystatin 1 applic TOPICAL TID 10/21/18 10/21/18 History Patient History Medical History Rheumatoid arthritis (Chronic) Anemia Cancer MELANOMA Cellulitis BILATERAL LEGS AND FEET, INPATIENT [facility] (JULY 2018) Chronic steroid use Fracture of sacrum BILATERAL. ~2016, PHYSICAL THERAPY. USES WALKER HLD (hyperlipidemia) HTN (hypertension) No blood products PER PATIENT REQUEST Obesity Pneumonia AUGUST 2017 Surgical History History of cataract surgery BILATERAL History of colonoscopy History of surgical removal of skin lesion BACK History of total hip replacement RIGHT S/P JUAN-BSO S/P revision of total hip RIGHT Total knee replacement status BILATERAL Family History Father Non Hodgkin's lymphoma Mother Coronary heart disease Social History Preferred Language: [place] Communication Ability: Effective Beliefs That Will Affect Care: None marital status: Single Current Living Situation: Alone current occupational status: retired 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 Feels Safe at Home: Yes Smoking Status: Never smoker Second Hand Exposure: No Hx Alcohol Use: No Hx Substance Use: No Physical Exam Constitutional: WD/WN, vitals as above Eyes: PERRL, conjunctivae normal, anicteric sclerae ENMT: external ear and nose normal, oropharynx normal Fiberoptic laryngoscopy was performed showing normal mobile bilateral vocal cords with evidence of mucus being aspirated into the trachea through the vocal cords. However the vocal cords are mobile and after careful instruction she was able to cough up the mucus. Results & Data Vital Signs (Past 12 Hours) Vital Signs Temp Pulse Resp BP Pulse Ox 10/22/18 15:33 36.9 C 68 20 133/68 92 10/22/18 07:06 37 C 51 L 18 122/60 94
[2018-10-22] MEDS: PRAVASTATIN SOD 20 MG TAB PO SCH (20:20)
[2018-10-23 07:43] LABS: Basophils # (auto) 0.01 K/uL (0-0.2); Basophils % (auto) 0.3 %; Eosinophils # (auto) 0.23 K/uL (0-0.5); Eosinophils % (auto) 5.8 %; Hematocrit (blood only) 33.1 % (37-47); Hemoglobin 10.4 g/dL (12.0-16.0); Immature Granulocytes # (auto) 0.01 K/uL (0.00-0.02); Immature Granulocytes % (auto) 0.3 %; Lymphocytes # (auto) 0.74 K/uL (1.2-3.4); Lymphocytes % (auto) 18.5 %; Mean Corpuscular Hgb Conc 31.4 g/dL (32-36); Mean Corpuscular Volume 82.1 fL (80-100); Mean Platelet Volume 9.5 fL (7.4-10.4); Monocytes # (auto) 0.48 K/uL (0.11-0.59); Neutrophils # (auto) 2.53 K/uL (1.4-6.5); Neutrophils % (auto) 63.1 %; Platelet Count 118 K/uL (130-400); RDW Coefficient of Variation 15.6 % (11.5-14.5); RDW Standard Deviation 47.4 fL (36.4-46.3); Red Blood Count 4.03 M/uL (4.2-5.4)
[2018-10-23] MEDS: LOSARTAN POTASSIUM 50 MG TAB PO SCH (07:48)
[2018-10-23] MEDS: ASPIRIN 325 MG ECTAB PO SCH (07:48)
[2018-10-23] MEDS: predniSONE 2.5 MG TAB PO SCH (07:48)
[2018-10-23] MEDS: LEFLUNOMIDE 10 MG TAB PO SCH (07:49)
[2018-10-23] MEDS: predniSONE 5 MG TAB PO SCH (07:49)
[2018-10-23] MEDS: HYDROXYCHLOROQUINE SULFATE 200 MG TAB PO SCH (07:49)
[2018-10-23] MEDS: ENOXAPARIN INJ 40 MG/0.4 ML SYR SQ SCH (07:49)
[2018-10-23 08:03] LABS: Echinocytes 2+; Ovalocytes 1+
[2018-10-23 08:13] LABS: BUN Creatinine Ratio 16.2 (10-20); Calcium 8.4 mg/dl (8.5-10.1); Est GFR (African American) 46.2; Est GFR (Non-African American) 39.8; Potassium 3.4 mmol/L (3.5-5.1)
--- NOTE | 2018-10-23 15:42 | Discharge Summary ---
Date of Service October 23, 2018 Admission HPI Per Admitting Provider 72-year-old female presents to the emergency department with complaints of a sore throat, gurgling sensation in her throat, and congested cough. She says this all began in the postop area after undergoing a colonoscopy about 8 days ago (26Jun). She says she woke up with no voice and since then it has returned but is always "gurgling". No known history of the same. She denies any difficulty breathing but does note very congested cough throughout this time. No known fevers, neck pain or stiffness, difficulties with swallowing, chest pain, nausea or vomiting, or other acute concerns. On review of systems, she s ays occasionally she does have some edema in her legs but most recently this has been attributed to bilateral leg cellulitis. She was admitted in July 2018 for the same, completed antibiotic therapy, and says that during her last outpatient ID appointment that she was told she was doing well. - Past medical history includes hypertension, hyperlipidemia, rheumatoid arthritis, CKD stage III, chronic anemia, melanoma, bilateral leg cellulitis, bilateral sacral fracture 2017, pneumonia, obesity. - Past surgical history includes cataracts, JUAN/BSO, right total hip replacement and revision, bilateral total knee replacements. - Social history includes denying ever smoking. Does not drink. Lives at home with her dog. Admission Exam Per Admitting Provider Constitutional: Denies fevers, chills, focal weakness. Eyes: Denies any visual loss or diplopia ENT: Positive gurgling with speech, mild hoarse voice, and sore throat. Respiratory: Positive cough. Denies shortness of breath. Cardiovascular: Denies any chest pain. Positive lower extremity edema. Gastrointestinal: Denies any abdominal pain, nausea/vomiting/diarrhea Musculoskeletal: Denies any acute extremity pains, myalgias, or focal weakness Skin: Positive resolving bilateral extremity cellulitis. Neuro: Denies any headache, acute focal weakness or numbness. Principal Diagnosis aspiration Pneumonia Discharge Exam Constitutional Patient is sitting up in bed resting comfortably watching television Eyes Pupils equal round reactive to light anicteric sclera extraocular motions intact bilaterally Respiratory Breath sounds vesicular bilaterally no crackles rhonchi wheezes or rales. Patient's chest expansion is equal patient is occasionally coughing up phlegm Cardiovascular Heart sounds dual no murmurs rubs skips or gallops regular rate regular rhythm mild edema bilaterally peripheral pulses intact Gastrointestinal (Abdomen) Abdomen soft nontender no masses detectable no hepatosplenomegaly Neurologic Patient with no focal weakness facial droop dysarthria or difficulty with any motor functions Discharge Data Allergies Allergy/AdvReac Type Severity Reaction Status Date / Time cefadroxil Allergy Intermediate Rash Verified 10/21/18 00:12 Sulfa (Sulfonamide Allergy Unknown RASH Verified 10/21/18 00:12 Antibiotics) oxycodone AdvReac Unknown NAUSEA Verified 10/21/18 00:12 Consultations 10/21/18 01:54 ED Decision to Admit Stat 10/22/18 09:12 Consult Otolaryngology (Head and Neck) Routine Hospital Course (1) Aspiration pneumonia due to gastric secretions: Dona Villalpando is a 72-year-old woman who initially presented [facility] emergency department for hoarseness for a week and a half since colonoscopy. Hoarseness with hypoxemic respiratory failure: She was found to have hypoxemic respiratory failure at this time requiring 2 to 3 L of oxygen via nasal cannula. Patient was afebrile and had been afebrile at home chest x-ray at the time showed small ill-defined opacities of the right lung base suggestive of atelectasis versus pneumonia as patient did not clinically appear ill ENT was consulted to evaluate for anatomical causes of patient's persistent hoarseness patient was evaluated via ENT scope and no abnormalities were detected patient likely has an aspiration pneumonia that is resolving on its own over time patient's oxygen requirement decreased and repeat imaging prior to discharge shows resolving right lower lobe opacity. Patient was discharged home with instructions on ambulation and incentive spirometry to continue to ventilate the lungs. Patient passed speech evaluation while here on inpatient aspiration was likely secondary to anesthesia during colonoscopy proc edure. Patient will need close primary care follow-up to ensure complete resolution of her symptoms and to encourage her to be more active. On speaking with patient it appears that she has a very sedentary lifestyle and is reticent to making any changes in that regard. Diarrhea Patient reports that she developed diarrhea after day 1 of admission in the hospital patient's diarrhea did not appear characteristic of C. difficile semi- formed and having 2-3 episodes per day. Emptied 6 elects stool for C. difficile testing however patient was unable to capture sample and patient refused home collection. If patient continues to have diarrhea recommend outpatient evaluation. Total Time Total Time Spent Total Time Spent (In Minutes): 37 Total Time Includes: Examination of the Patient, Discharge Planning, Medication Reconciliation and Communication With Other Providers Discharge Plan Discharge Items Patient Disposition: Home - Self-Care Reason For Visit: PULMONARY EDEMA Discharge Diagnosis: Aspiration pneumonia Discharge Goals: Improve function Activity: Resume your previous activity Non-emergency contact: Primary Care Provider Call non-emergency contact if: you have any medication questions, your symptoms worsen and your temperature is above 100.5 Follow-up/Referrals: Svetlana Rosales CRNP [Primary Care Provider] - Diet: Heart Healthy Addtl Provider Instructions: Ms Villalpando it was our pleasure to meet you and evaluate you for your hoarse voice, coughing and difficulty breathing. We believe this was secondary to something called aspiration pneumonia which would have occurred during your colonoscopy. You are doing much better and we believe that you will continue to do better at home. It will be very important for you to continue to aerate your lungs moving forward. Use the incentive spirometer and try to ambulate to accomplish this. If you have worsening shortness of breath, fevers, chills or any other symptoms concerning to you please return to medical care. Prescriptions: Continued prednisone 5 mg tablet 5 mg PO QAM RF: 0 leflunomide 20 mg tablet 20 mg PO QAM RF: 0 aspirin [Ecotrin] 325 mg Tablet,Delayed Release (Dr/Ec) 325 mg PO QAM RF: 0 prednisone 2.5 mg tablet 2.5 mg PO QAM RF: 0 pravastatin 20 mg tablet 20 mg PO QPM RF: 0 hydroxychloroquine 200 mg tablet 400 mg PO QAM RF: 0 losartan 50 mg Tablet 75 mg PO QAM Qty: 30 RF: 0 nystatin 100,000 unit/gram powder 1 applic topical TID RF: 0 Stand-Alone Forms: [facility] Discharge Orders: Discharge Order (Routine); Ordered 10/23/18 Ordered By: Tanner Moreno Admission Data Admit Date/Time: 10/21/18 04:31 Attending Provider: Aranza Montez Admit Provider: Arian Sosa Primary Care Provider: Svetlana Rosales Other Providers: Carol Escamilla Yi How Service: Medical Other Interventions: Discharge Summary Assessment (RN) Last Done: 10/23/18 15:01 DC Date/Time DO NOT enter until pt leaves facility: 10/23/18 17:05 Supervising Physician Co-Signing Physician Notes Resident Physician Supervision Note: I independently interviewed and examined the patient and verified the wood history and physical, reviewed labs and image studies, discussed the case with the resident Dr. Moreno and agree with the findings and care plan. Time spent in discharge 35 min Resident Activity Tracking Resident Involvement: Resident Care Provided Care Provided: Adult Hospital Medicine
--- NOTE | 2018-11-12 06:49 | Coding Query ---
CODING QUERY To promote full compliance with coding requirements relating to patient care, provider participation is requested in all cases of watch manufacturing supervisor uncertainty. Please assist us with the question(s) below: Coding Question(s): The following was documented in the discharge summary only, "aspiration was likely secondary to anesthesia during colonoscopy procedure"; please clarify if the aspiration pneumonia was due to the anesthesia given during the patient's colonoscopy. Thank you so much for your help with this! Have a great day! ( x) Aspiration PNA due to aspirating gastric contents during anesthesia ( ) Aspiration PNA, unspecified ( ) Other, explain Thank you! Coretta Edmond Principal Diagnosis: "that condition established after study, to be chiefly responsible for occasioning the admission of the patient to the hospital for care." Co-Existing Principal Diagnosis: "when two or more diagnoses equally meet the criteria for principal diagnosis as determined by the circumstances of admission, diagnostic work up, and/or therapy provided, and the Alphabetic Index, Tabular List, or another coding guideline does not provide sequencing direction, any one of the diagnoses may be sequenced first." "When the physician has documented what appears to be a current diagnosis in the body of the record, but has not included the diagnosis in the final diagnostic statement, the physician should be asked whether the diagnosis should be added." (Source Coding [facility] 2 QTR90. p3-4) ADÁN
== END 2018-10-23 17:05 | disposition home or self-care (01) | DRG 205 ==
LOC: ED 21:40 → SUATTDRO 10-21 04:31 → 4E 10-21 04:31

== ENCOUNTER 2019-10-14 09:54 | Inpatient (IN) ==
[2019-10-14] MEDS ORDERED: SODIUM CHLORIDE 0.9% 1000ML 1,000 ML IV ONE (10:36)
[2019-10-14] MEDS ORDERED: VANCOMYCIN CONSULT ACTIVE PRN ×2 (11:00→15:27)
[2019-10-14] MEDS ORDERED: VANCOMYCIN HCL 2,000 MG in SODIUM CHLORIDE 0.9% 500 ML IV STA (11:00)
[2019-10-14] MEDS ORDERED: PIPERACILL/TAZOBAC CONSULT ACTIVE PRN ×2 (11:02→15:27)
[2019-10-14] MEDS ORDERED: PIPERACILLIN/TAZOBACTAM 4.5 GM/120 ML BAG IV ONE (11:02)
--- NOTE | 2019-10-14 11:14 | Emergency Department Note ---
Impression & Plan Acute renal failure (ARF), Sepsis, Acute hyperkalemia, Hypothermia, Cellulitis ED Provider Note NAME: SARAH WOLFE AGE: 73 SEX: F : 1945 ARRIVES VIA: Walk-In INFORMANT: Patient, ED PROVIDER(S): Taj Leung MD Chief Complaint: Skin changes HPI: Patient does present with concern for lower extremity skin changes. The patient has been "doctoring" this reportedly for over 1 month. The patient is tried several antibiotics including Keflex, clindamycin, doxycycline without much improvement. Patient does not complain of any pain and denies any recent change in medications. Patient was recently seen 3 days prior diagnosed with a possible stasis dermatitis. The patient was seen in outpatient dermatology clinic today and referred here for further evaluation and treatment. Patient provided to believe the patient did have signs of infection on top of the stasis dermatitis. Patient is hypotensive upon arrival. Pending temperature. Patient did complain of some mild associated headache and would like something to drink as she is thirsty. The patient denies any pain in the legs. ROS: See HPI for pertinent positives and negatives. A total of 10 systems were reviewed and otherwise negative. Past medical history: See below Surgical history: See below Social history: See below Physical Exam: GENERAL: Moderate distress, mildly ill in appearance. Wearing glasses and a mask. EYE EXAM: Normal conjunctiva. PERRL, no anisocoria and EOM's grossly intact w/o pain. OROPHARYNX: Dry mucus membranes. Grossly normal dentition. NECK: Supple, no nuchal rigidity, no adenopathy, non-tender. No signs of meningismus. LUNGS: Clear to auscultation. Normal chest wall mechanics. HEART: NSR, no MRG. ABDOMEN: Abdomen soft, non-tender, normo-active bowel sounds, no masses, no rebound or guarding. BACK: No CVA TTP. SKIN: No rashes and no bruising. UPPER EXTREMITIES: Upper extremities are grossly normal. LOWER EXTREMITIES: Diffuse lower extremity red weeping dermatitis/cellulitis, edema noted, no crepitus, all toes very cold but feet feel warm to the touch. NEURO EXAM: A&O x3, cranial nerves II-XII grossly intact, normal speech, moves all 4 extremities on command w/o issue. Differential diagnoses: Cellulitis, abscess, MRSA infection, DVT, necrotizing fasciitis, dermatitis, drug eruption, allergic reaction, as well as other pathologies. Course: Patient was seen and evaluated the bedside. Full history physical exam was performed. EKG: Indication: Tachycardia Imaging Studies: Radiology results as stated below per my review in the radiologist's interpretation: Cardiac monitoring: An order was placed for continuous cardiac monitoring. The monitor shows a rate of 71 with sinus rhythm. Procedures: Limited Point of Care Vascular Access Ultrasound performed by me: Indication: Hypotension Procedure: [id number] ultrasound for vascular access Findings: Limited ultrasonography was utilized to identify the left antecubital vein. Under sterile technique and direct visualization/dynamic technique, the line was placed in the standard fashion. The access was verified in the lumen on two views. No complications. Impression: Successful vascular access with ultrasound guidance. MDM: Patient was seen and evaluated the bedside emergently due to concern for hypote nsion. I did evaluate the patient the patient was presented with concern for lower extremity edema pain and discomfort. Patient does not complain of any pains. The patient does not appear to have crepitus but does have edematous lower extremities with weeping wounds. Patient does appear to have cold toes but the rest of the extremity does feel warm. Patient may have an element of vasoconstriction secondary to the cold as the patient has a core temperature 32 degrees. The patient did have a left AC placed by me under ultrasound guidance. Blood work is obtained. Patient's initial lactate was 2.7 with a normal white count but elevated pro calcitonin. Kidney function grossly abnormal with acute renal failure and mild hypokalemia. I did immediately place a consult to nephrology. I did speak with Dr. Johns who kindly gave her input. I did order hydrocortisone due to the patient's persistent hypotension after being given IV fluids and the patient is on chronic steroids. Levophed was also ordered and given. I did speak the on-call hospitalist Dr. Anguiano as well as the research asst Dr. Ying. Discussed the possibility of necrotizing fasciitis but I believe this to be less likely and that this may be more related to reperfusion discomfort with regards to the patient's low body temperature and the warming of the lower extremities via the bear hugger. Patient did have medications given for hyperkalemia along with bicarb and IV fluids. Troponin is not detectable. Repeat BMP and additional blood work was obtained at the behest of the salvage diver. Velásquez catheter was placed urine was pending. The patient had received empiric antibiotics upon presentation. Critical Care: I have personally spent 105 minutes of critical care time in direct management of this patient. This includes bedside care, interpretation of diagnostic studies, and testing, discussion with consultants, patient, and family members, and other require inpatient management activities. This 105 minutes is in excess of all separately billable procedures. Past Med/Surg History Medical History Anemia Cancer MELANOMA Cellulitis BILATERAL LEGS AND FEET, INPATIENT [facility] (JULY 2018) Chronic steroid use Fracture of sacrum BILATERAL. ~2016, PHYSICAL THERAPY. USES WALKER HLD (hyperlipidemia) HTN (hypertension) No blood products PER PATIENT REQUEST Obesity Pneumonia AUGUST 2017 Rheumatoid arthritis (Chronic) Surgical History History of cataract surgery BILATERAL History of colonoscopy History of surgical removal of skin lesion BACK History of total hip replacement RIGHT S/P revision of total hip RIGHT S/P JUAN-BSO Total knee replacement status BILATERAL Family History Father Non Hodgkin's lymphoma Mother Coronary heart disease Social History Preferred Language: Upper Sorbian Communication Ability: Effective Manager Client Required: No Beliefs That Will Affect Care: None marital status: Single Current Living Situation: Alone current occupational status: retired 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 Feels Safe at Home: Yes Smoking Status: Never smoker Second Hand Exposure: No ; Hx Alcohol Use: No Hx Substance Use: No Allergies Allergies Allergy/AdvReac Type Severity Reaction Status Date / Time cefadroxil Allergy Intermediate Rash Verified 10/14/19 12:42 Sulfa (Sulfonamide Allergy Unknown RASH Verified 10/14/19 12:42 Antibiotics) oxycodone AdvReac Unknown NAUSEA Verified 10/14/19 12:42 Home Meds Home Medications Medication Instructions Recorded Confirmed aspirin [Ecotrin] 325 mg PO QAM 08/06/18 10/14/19 hydroxychloroquine 400 mg PO HS 08/06/18 10/14/19 leflunomide 20 mg PO QAM 08/06/18 10/14/19 pravastatin 20 mg PO QPM 08/06/18 10/14/19 prednisone 2.5 mg PO QAM 08/06/18 10/14/19 prednisone 5 mg PO QAM 08/06/18 10/14/19 nystatin 1 applic TOPICAL TID 10/21/18 10/14/19 spironolactone 25 mg PO DAILY 10/14/19 10/14/19 Previous Rx's Medication Instructions Recorded losartan 75 mg PO QAM #30 tab 08/16/18 clotrimazole-betamethasone 1 appln TOP BID 14 Days #45 gm 10/11/19 Results & Data (ED) Vital Signs Vital Signs - 24 hr 10/14/19 10:17 10/14/19 10:27 10/14/19 10:33 Temperature Temperature Source Pulse Rate 93 H 74 72 Pulse Rate from SpO2 Sensor Pulse Rhythm Regular Pulse Strength Normal Respiratory Rate 20 20 20 Respiratory Effort / Characteristics Non-Labored Spontaneous Respiratory Depth Normal Respiratory Pattern Regular Blood Pressure 61/40 L 60/32 L Blood Pressure Mean 44 45 Blood Pressure Position Sitting Pulse Oximetry 98 Oxygen Delivery Method Room Air Sepsis Recent Fever Within 48 Hours No Sepsis Action Taken by Nursing No Action Required 10/14/19 10:35 10/14/19 10:41 10/14/19 11:00 Temperature Temperature Source Pulse Rate 71 71 Pulse Rate from SpO2 Sensor Pulse Rhythm Pulse Strength Respiratory Rate 23 17 Respiratory Effort / Characteristics Respiratory Depth Respiratory Pattern Blood Pressure 68/42 L 59/24 L Blood Pressure Mean 50 28 Blood Pressure Position Pulse Oximetry Oxygen Delivery Method Room Air Sepsis Recent Fever Within 48 Hours Sepsis Action Taken by Nursing 10/14/19 11:12 10/14/19 11:16 10/14/19 11:26 Temperature Temperature Source Pulse Rate 68 66 67 Pulse Rate from SpO2 Sensor Pulse Rhythm Pulse Strength Respiratory Rate 16 17 16 Respiratory Effort / Characteristics Respiratory Depth Respiratory Pattern Blood Pressure 72/35 L 81/41 L 75/44 L Blood Pressure Mean 43 63 57 Blood Pressure Position Pulse Oximetry Oxygen Delivery Method Sepsis Recent Fever Within 48 Hours Sepsis Action Taken by Nursing 10/14/19 11:36 10/14/19 11:41 10/14/19 11:45 Temperature Temperature Source Pulse Rate 67 66 66 Pulse Rate from SpO2 Sensor 66 66 Pulse Rhythm Pulse Strength Respiratory Rate 16 17 14 Respiratory Effort / Characteristics Respiratory Depth Respiratory Pattern Blood Pressure 84/36 L 70/36 L 66/30 L Blood Pressure Mean 50 50 41 Blood Pressure Position Pulse Oximetry 100 99 Oxygen Delivery Method Sepsis Recent Fever Within 48 Hours Sepsis Action Taken by Nursing 10/14/19 11:50 10/14/19 11:56 10/14/19 12:00 Temperature 32.7 C L Temperature Source Rectal Pulse Rate 67 67 Pulse Rate from SpO2 Sensor 65 67 Pulse Rhythm Pulse Strength Respiratory Rate 14 15 Respiratory Effort / Characteristics Respiratory Depth Respiratory Pattern Blood Pressure 63/36 L 69/41 L Blood Pressure Mean 46 58 Blood Pressure Position Pulse Oximetry 99 99 Oxygen Delivery Method Sepsis Recent Fever Within 48 Hours Sepsis Action Taken by Nursing 10/14/19 12:02 10/14/19 12:05 10/14/19 12:10 Temperature Temperature Source Pulse Rate 72 66 67 Pulse Rate from SpO2 Sensor 65 65 69 Pulse Rhythm Pulse Strength Respiratory Rate 21 18 14 Respiratory Effort / Characteristics Respiratory Depth Respiratory Pattern Blood Pressure 140/79 57/44 L 65/27 L Blood Pressure Mean 96 54 44 Blood Pressure Position Pulse Oximetry 99 99 Oxygen Delivery Method Sepsis Recent Fever Within 48 Hours Sepsis Action Taken by Nursing 10/14/19 12:20 10/14/19 12:25 10/14/19 12:28 Temperature Temperature Source Pulse Rate 64 65 65 Pulse Rate from SpO2 Sensor 65 65 66 Pulse Rhythm Pulse Strength Respiratory Rate 19 18 19 Respiratory Effort / Characteristics Respiratory Depth Respiratory Pattern Blood Pressure 63/34 L 53/37 L 58/26 L Blood Pressure Mean 44 40 34 Blood Pressure Position Pulse Oximetry 98 98 100 Oxygen Delivery Method Sepsis Recent Fever Within 48 Hours Sepsis Action Taken by Nursing 10/14/19 12:30 10/14/19 12:31 10/14/19 12:35 Temperature Temperature Source Pulse Rate 65 65 64 Pulse Rate from SpO2 Sensor 65 65 64 Pulse Rhythm Pulse Strength Respiratory Rate 17 14 15 Respiratory Effort / Characteristics Respiratory Depth Respiratory Pattern Blood Pressure 72/35 L 69/37 L Blood Pressure Mean 47 42 Blood Pressure Position Pulse Oximetry 100 99 100 Oxygen Delivery Method Sepsis Recent Fever Within 48 Hours Sepsis Action Taken by Nursing 10/14/19 12:40 10/14/19 12:41 10/14/19 12:45 Temperature Temperature Source Pulse Rate 64 64 65 Pulse Rate from SpO2 Sensor 65 65 66 Pulse Rhythm Pulse Strength Respiratory Rate 18 17 16 Respiratory Effort / Characteristics Respiratory Depth Respiratory Pattern Blood Pressure 75/39 L 68/34 L Blood Pressure Mean 46 43 Blood Pressure Position Pulse Oximetry 99 99 99 Oxygen Delivery Method Sepsis Recent Fever Within 48 Hours Sepsis Action Taken by Nursing 10/14/19 12:50 10/14/19 12:55 10/14/19 13:06 Temperature Temperature Source Pulse Rate 73 65 65 Pulse Rate from SpO2 Sensor 65 65 65 Pulse Rhythm Pulse Strength Respiratory Rate 15 18 19 Respiratory Effort / Characteristics Respiratory Depth Respiratory Pattern Blood Pressure 74/33 L 57/32 L 69/29 L Blood Pressure Mean 44 34 54 Blood Pressure Position Pulse Oximetry 98 98 99 Oxygen Delivery Method Sepsis Recent Fever Within 48 Hours Sepsis Action Taken by Nursing 10/14/19 13:10 Temperature Temperature Source Pulse Rate 65 Pulse Rate from SpO2 Sensor 65 Pulse Rhythm Pulse Strength Respiratory Rate 15 Respiratory Effort / Characteristics Respiratory Depth Respiratory Pattern Blood Pressure 80/32 L Blood Pressure Mean 48 Blood Pressure Position Pulse Oximetry 98 Oxygen Delivery Method Sepsis Recent Fever Within 48 Hours Sepsis Action Taken by Group Home Medications Current Medication List: was personally reviewed by me Laboratory Data Attestation: I reviewed the patient's lab results. Result diagrams: 10/15/19 04:00 10/15/19 04:00 Lab Results 10/14/19 10/14/19 10/14/19 Range/Units 11:00 11:06 11:06 WBC 6.08 (4.8-10.8) K/uL RBC 4.42 (4.2-5.4) M/uL Hgb 11.4 L (12.0-16.0) g/dL Hct 35.2 L (37-47) % MCV 79.6 L (80-100) fL MCH 25.8 (25-34) pg MCHC 32.4 (32-36) g/dL RDW Std Deviation 48.0 H (36.4-46.3) fL RDW Coeff of Saadia 16.6 H (11.5-14.5) % Plt Count 175 (130-400) K/uL MPV 10.4 (7.4-10.4) fL Immature Gran % (Auto) 0.7 % Neut % (Auto) 92.2 % Lymph % (Auto) 5.1 % Hopkins % (Auto) 1.6 % Eos % (Auto) 0.2 % Baso % (Auto) 0.2 % Neut # (Auto) 5.61 (1.4-6.5) K/uL Lymph # (Auto) 0.31 L (1.2-3.4) K/uL Hopkins # (Auto) 0.10 L (0.11-0.59) K/uL Eos # (Auto) 0.01 (0-0.5) K/uL Baso # (Auto) 0.01 (0-0.2) K/uL Immature Gran # (Auto) 0.04 H (0.00-0.02) K/uL PT 11.0 (9.0-12.0) Seconds INR 1.0 (0.9-1.1) APTT 30.3 (21.0-31.0) Seconds PTT Ratio 1.1 Sodium (136-145) mmol/L Potassium (3.5-5.1) mmol/L Chloride (98-107) mmol/L Carbon Dioxide (21-32) mmol/L Anion Gap (3-11) BUN (7-18) mg/dl Creatinine (0.6-1.2) mg/dl Est Cr Clr Drug Dosing Est GFR ( Amer) Est GFR (Non-Af Amer) BUN/Creatinine Ratio (10-20) Glucose (70-99) mg/dl Lactate (0.4-2.0) mmol/L Calcium (8.5-10.1) mg/dl Magnesium (1.8-2.4) mg/dl Total Bilirubin (0.2-1) mg/dl AST (15-37) U/L ALT (12-78) U/L Alkaline Phosphatase (45-117) U/L Troponin I (0-0.045) ng/ml Total Protein (6.4-8.2) gm/dl Albumin (3.4-5.0) gm/dl Globulin (2.5-4.0) gm/dl Albumin/Globulin Ratio (0.9-2) Procalcitonin (0-0.5) ng/ml Random Cortisol 60.11 mcg/dl 10/14/19 10/14/19 10/14/19 Range/Units 11:06 11:06 11:06 WBC (4.8-10.8) K/uL RBC (4.2-5.4) M/uL Hgb (12.0-16.0) g/dL Hct (37-47) % MCV (80-100) fL MCH (25-34) pg MCHC (32-36) g/dL RDW Std Deviation (36.4-46.3) fL RDW Coeff of Saadia (11.5-14.5) % Plt Count (130-400) K/uL MPV (7.4-10.4) fL Immature Gran % (Auto) % Neut % (Auto) % Lymph % (Auto) % Hopkins % (Auto) % Eos % (Auto) % Baso % (Auto) % Neut # (Auto) (1.4-6.5) K/uL Lymph # (Auto) (1.2-3.4) K/uL Hopkins # (Auto) (0.11-0.59) K/uL Eos # (Auto) (0-0.5) K/uL Baso # (Auto) (0-0.2) K/uL Immature Gran # (Auto) (0.00-0.02) K/uL PT (9.0-12.0) Seconds INR (0.9-1.1) APTT (21.0-31.0) Seconds PTT Ratio Sodium 135 L (136-145) mmol/L Potassium 5.6 H (3.5-5.1) mmol/L Chloride 107 (98-107) mmol/L Carbon Dioxide 8 L* (21-32) mmol/L Anion Gap 20.0 H (3-11) BUN 161 H (7-18) mg/dl Creatinine 7.92 H* (0.6-1.2) mg/dl Est Cr Clr Drug Dosing Not Reportable Est GFR ( Amer) 5.3 Est GFR (Non-Af Amer) 4.6 BUN/Creatinine Ratio 20.6 H (10-20) Glucose 100 H (70-99) mg/dl Lactate 2.6 H* (0.4-2.0) mmol/L Calcium 9.2 (8.5-10.1) mg/dl Magnesium 2.9 H (1.8-2.4) mg/dl Total Bilirubin 0.3 (0.2-1) mg/dl AST 8 L (15-37) U/L ALT 16 (12-78) U/L Alkaline Phosphatase 92 (45-117) U/L Troponin I < 0.015 (0-0.045) ng/ml Total Protein 6.5 (6.4-8.2) gm/dl Albumin 2.8 L (3.4-5.0) gm/dl Globulin 3.7 (2.5-4.0) gm/dl Albumin/Globulin Ratio 0.8 L (0.9-2) Procalcitonin 5.41 H (0-0.5) ng/ml Random Cortisol mcg/dl Administered Medications Heparin Sodium (Porcine) (Heparin Sodium (Porcine)) 5,000 units SQ Q8 FRANSISCO Stop: 11/13/19 15:59 Last Admin: 10/15/19 05:53 Dose: 5,000 units Documented by: [id number] Cosigned by: [id number] Admin: 10/14/19 21:44 Dose: 5,000 units Documented by: [id number] Cosigned by: [id number] Admin: 10/14/19 16:22 Dose: 5,000 units Documented by: [id number] Cosigned by: [id number] Hydroxychloroquine Sulfate (Plaquenil) 400 mg PO HS FRANSISCO Stop: 11/13/19 20:59 Last Admin: 10/14/19 21:44 Dose: 400 mg Documented by: [id number] Sodium Bicarbonate 150 meq/ (Dextrose) 1,150 mls @ 150 mls/hr IV .Q7H40M FRANSISCO Stop: 11/13/19 11:59 Last Admin: 10/15/19 02:41 Dose: 150 mls/hr Documented by: [id number] Infusion: 10/15/19 02:41 Dose: 150 mls/hr Documented by: [id number] Admin: 10/14/19 19:44 Dose: 150 mls/hr Documented by: [id number] Infusion: 10/14/19 19:44 Dose: 150 mls/hr Documented by: [id number] Infusion: 10/14/19 18:53 Dose: 150 mls/hr Documented by: [id number] Infusion: 10/14/19 16:22 Dose: 150 mls/hr Documented by: [id number] Admin: 10/14/19 12:40 Dose: 150 mls/hr Documented by: [id number] Norepinephrine Bitartrate 8 mg (/ Dextrose) 508 mls @ 38.199 mls/hr IV .[id number] FRANSISCO; Protocol Stop: 11/13/19 12:59 Last Titration: 10/15/19 06:36 Dose: 0.13 mcg/kg/min, 55.2 mls/hr Documented by: [id number] Titration: 10/15/19 06:00 Dose: 0.11 mcg/kg/min, 46.7 mls/hr Documented by: [id number] Admin: 10/15/19 05:54 Dose: 0.09 mcg/kg/min, 38.2 mls/hr Documented by: [id number] Cosigned by: [id number] Titration: 10/15/19 04:59 Dose: 0.09 mcg/kg/min, 38.2 mls/hr Documented by: [id number] Cosigned by: [id number] Titration: 10/14/19 18:53 Dose: 0.09 mcg/kg/min, 38.2 mls/hr Documented by: [id number] Cosigned by: [id number] Titration: 10/14/19 18:20 Dose: 0.09 mcg/kg/min, 38.2 mls/hr Documented by: [id number] Titration: 10/14/19 17:27 Dose: 0.07 mcg/kg/min, 29.7 mls/hr Documented by: [id number] Titration: 10/14/19 16:22 Dose: 0.05 mcg/kg/min, 21.2 mls/hr Documented by: [id number] Cosigned by: [id number] Admin: 10/14/19 13:54 Dose: 0.05 mcg/kg/min, 21.2 mls/hr Documented by: [id number] Cosigned by: [id number] Sodium Chloride (Nss 1000ml) 1,000 mls @ 100 mls/hr IV .Q10H FRANSISCO Stop: 11/13/19 15:44 Last Admin: 10/15/19 02:41 Dose: 100 mls/hr Documented by: [id number] Infusion: 10/15/19 02:02 Dose: 100 mls/hr Documented by: [id number] Infusion: 10/14/19 18:53 Dose: 100 mls/hr Documented by: [id number] Infusion: 10/14/19 16:22 Dose: 100 mls/hr Documented by: [id number] Admin: 10/14/19 16:02 Dose: 100 mls/hr Documented by: [id number] Piperacillin Sod/Tazobactam (Sod 4.5 gm/ Dextrose) 120 mls @ 28.75 mls/hr IV Q12H FRANSISCO; Protocol Stop: 10/21/19 19:59 Last Infusion: 10/14/19 23:55 Dose: 28.8 mls/hr Documented by: [id number] Admin: 10/14/19 19:44 Dose: 28.8 mls/hr Documented by: [id number] Hydrocortisone Sodium (Succinate 50 mg/ Syringe) 1 mls @ 4 mls/min IV Q6H FRANSISCO Stop: 11/13/19 17:59 Last Admin: 10/15/19 05:54 Dose: 4 mls/min Documented by: [id number] Admin: 10/15/19 01:22 Dose: 4 mls/min Documented by: [id number] Admin: 10/14/19 16:22 Dose: 4 mls/min Documented by: [id number] Discontinued Medications Acetaminophen (Tylenol) 1,000 mg PO NOW STA Stop: 10/14/19 11:22 Last Admin: 10/14/19 11:28 Dose: 1,000 mg Documented by: [id number] Albuterol (Ventolin 0.083% 2.5mg/3ml) 10 mg NEB NOW STA Stop: 10/14/19 12:53 Last Admin: 10/14/19 13:44 Dose: 10 mg Documented by: [id number] Dextrose (Dextrose 50%) 50 ml IV NOW ONE Stop: 10/14/19 12:53 Last Admin: 10/14/19 13:24 Dose: 50 ml Documented by: [id number] Fentanyl Citrate (Fentanyl Citrate) 25 mcg IV NOW ONE Stop: 10/14/19 14:44 Last Admin: 10/14/19 16:02 Dose: 25 mcg Documented by: [id number] Fentanyl Citrate (Fentanyl Citrate) 25 mcg IV NOW ONE Stop: 10/14/19 19:31 Last Admin: 10/14/19 19:45 Dose: 25 mcg Documented by: [id number] Fentanyl Citrate (Fentanyl Citrate) 25 mcg IV NOW STA Stop: 10/15/19 01:37 Last Admin: 10/15/19 02:40 Dose: 25 mcg Documented by: [id number] Hydrocortisone Sodium Succinate (Solu-Cortef) Confirm Administered Dose 100 mg .ROUTE .STK-MED ONE Stop: 10/14/19 12:18 Last Admin: 10/14/19 12:20 Dose: 100 mg Documented by: [id number] Hydrocortisone Sodium Succinate (Solu-Cortef) 100 mg IV NOW STA Stop: 10/14/19 12:21 Last Admin: 10/14/19 13:24 Dose: 100 mg Documented by: [id number] Sodium Chloride (Nss 1000ml) 1,000 mls @ 999 mls/hr IV .Q1H1M ONE Stop: 10/14/19 11:36 Last Infusion: 10/14/19 12:41 Dose: 0 mls/hr Documented by: [id number] Admin: 10/14/19 11:22 Dose: 999 mls/hr Documented by: [id number] Vancomycin HCl 2,000 mg/ (Sodium Chloride) 540 mls @ 200 mls/hr IV NOW STA Stop: 10/14/19 13:41 Last Infusion: 10/14/19 15:57 Dose: 0 mls/hr Documented by: [id number] Admin: 10/14/19 12:48 Dose: 200 mls/hr Documented by: [id number] Sodium Chloride (Nss 1000ml) 1,000 mls @ 999 mls/hr IV .Q1H1M FRANSISCO Stop: 10/14/19 13:00 Last Infusion: 10/14/19 12:41 Dose: 0 mls/hr Documented by: [id number] Admin: 10/14/19 12:00 Dose: 999 mls/hr Documented by: [id number] Sodium Chloride (Nss 1000ml) 1,000 mls @ 999 mls/hr IV .Q1H1M FRANSISCO Stop: 10/14/19 12:01 Last Infusion: 10/14/19 13:57 Dose: 0 mls/hr Documented by: [id number] Admin: 10/14/19 13:08 Dose: Not Given Documented by: [id number] Admin: 10/14/19 12:40 Dose: 999 mls/hr Documented by: [id number] Piperacillin Sod/Tazobactam Sod (Zosyn) 4.5 gm in 120 mls @ 240 mls/hr IV NOW ONE Stop: 10/14/19 11:31 Last Infusion: 10/14/19 12:49 Dose: 0 mls/hr Documented by: [id number] Admin: 10/14/19 12:20 Dose: 240 mls/hr Documented by: [id number] Sodium Chloride (Nss 1000ml) 1,000 mls @ 999 mls/hr IV .Q1H1M STA Stop: 10/14/19 15:34 Last Infusion: 10/14/19 15:57 Dose: 0 mls/hr Documented by: [id number] Admin: 10/14/19 14:25 Dose: 999 mls/hr Documented by: [id number] Insulin Human Regular (Novolin R U-100 Per Unit) 10 units IV NOW STA Stop: 10/14/19 12:53 Last Admin: 10/14/19 13:26 Dose: 10 units Documented by: [id number] Cosigned by: [id number] Miscellaneous () 1 ea N/A NOW STA Stop: 10/14/19 11:54 Last Admin: 10/14/19 13:09 Dose: Not Given Documented by: [id number] Miscellaneous () 1 ea N/A NOW STA Stop: 10/14/19 12:59 Last Admin: 10/14/19 14:31 Dose: Not Given Documented by: [id number] Ondansetron HCl (Zofran) 4 mg IV NOW STA Stop: 10/14/19 11:22 Last Admin: 10/14/19 11:28 Dose: 4 mg Documented by: [id number] Sodium Polystyrene Sulfonate (Kayexalate) 30 gm PO NOW STA Stop: 10/14/19 12:53 Last Admin: 10/14/19 13:24 Dose: 30 gm Documented by: [id number] Discharge Plan Visit Data *Final* Discharge Date/Time: 10/14/19 14:47 Chief Complaint: Infection Stated Complaint: INFECTION, REF'D BY DR MONTES ED Provider: Taj Leung Discharge Problem: Acute renal failure (ARF), Sepsis, Acute hyperkalemia, Hypothermia, Cellulitis Patient Disposition: Admitted As Inpatient Discharge Instructions Interventions: ED Discharge Assessment Last Done: 10/14/19 14:47 Discharge Problem: Acute renal failure (ARF) Qualifiers: Acute renal failure type: unspecified Qualified Code(s): N17.9 - Acute kidney failure, unspecified Sepsis Qualifiers: Sepsis type: sepsis due to unspecified organism Sepsis acute organ dysfunction status: with acute organ dysfunction Severe sepsis acute organ dysfunction type: acute renal failure Acute renal failure type: unspecified Severe sepsis shock status: with septic shock Qualified Code(s): A41.9 - Sepsis, unspecified organism Hypothermia Qualifiers: Encounter type: initial encounter Qualified Code(s): T68.XXXA - Hypothermia, initial encounter Cellulitis Qualifiers: Site of cellulitis: extremity Site of cellulitis of extremity: lower extremity Laterality: unspecified laterality Qualified Code(s): L03.119 - Cellulitis of unspecified part of limb
[2019-10-14] MEDS ORDERED: ONDANSETRON INJ 2 MG/ML 2 ML VIAL IV STA (11:21)
[2019-10-14] MEDS ORDERED: ACETAMINOPHEN 500 MG TAB PO STA (11:21)
[2019-10-14 11:24] LABS: Basophils # (auto) 0.01 K/uL (0-0.2); Basophils % (auto) 0.2 %; Eosinophils # (auto) 0.01 K/uL (0-0.5); Eosinophils % (auto) 0.2 %; Hematocrit (blood only) 35.2 % (37-47); Hemoglobin 11.4 g/dL (12.0-16.0); Immature Granulocytes # (auto) 0.04 K/uL (0.00-0.02); Immature Granulocytes % (auto) 0.7 %; Lymphocytes # (auto) 0.31 K/uL (1.2-3.4); Lymphocytes % (auto) 5.1 %; Mean Corpuscular Hemoglobin 25.8 pg (25-34); Mean Corpuscular Hgb Conc 32.4 g/dL (32-36); Mean Corpuscular Volume 79.6 fL (80-100); Mean Platelet Volume 10.4 fL (7.4-10.4); Monocytes % (auto) 1.6 %; Neutrophils # (auto) 5.61 K/uL (1.4-6.5); Neutrophils % (auto) 92.2 %; Platelet Count 175 K/uL (130-400); RDW Coefficient of Variation 16.6 % (11.5-14.5); Red Blood Count 4.42 M/uL (4.2-5.4); White Blood Count 6.08 K/uL (4.8-10.8)
[2019-10-14 11:40] LABS: Partial Thromboplastin Ratio 1.1; Partial Thromboplastin Time 30.3 Seconds (21.0-31.0)
[2019-10-14 11:49] LABS: Alanine Aminotransferase 16 U/L (12-78); Albumin Globulin Ratio 0.8 (0.9-2); Albumin Level 2.8 gm/dl (3.4-5.0); Aspartate Aminotransferase 8 U/L (15-37); Bilirubin,Total 0.3 mg/dl (0.2-1); Blood Urea Nitrogen 161 mg/dl (7-18); Calcium 9.2 mg/dl (8.5-10.1); Carbon Dioxide 8 mmol/L (21-32); Chloride 107 mmol/L (98-107); Est GFR (African American) 5.3; Est GFR (Non-African American) 4.6; Globulin 3.7 gm/dl (2.5-4.0); Glucose 100 mg/dl (70-99); Magnesium 2.9 mg/dl (1.8-2.4); Potassium 5.6 mmol/L (3.5-5.1); Sodium 135 mmol/L (136-145); Total Protein 6.5 gm/dl (6.4-8.2)
[2019-10-14] MEDS ORDERED: STAT IV STA ×2 (11:53→15:27)
[2019-10-14] MEDS ORDERED: SODIUM CHLORIDE 0.9% 1000ML 1,000 ML IV SCH (12:01)
[2019-10-14 12:03] LABS: Alkaline Phosphatase 92 U/L (45-117); BUN Creatinine Ratio 20.6 (10-20); Troponin I < 0.015 ng/ml (0-0.045)
--- NOTE | 2019-10-14 12:14 | XRay Report ---
XR chest 1V portable CLINICAL HISTORY: SEPSIS dyspnea COMPARISON STUDY: 10/22/2018 FINDINGS: The bones soft tissues and hemidiaphragms are normal. The cardiomediastinal silhouette is n ormal. The lungs are clear. The pulmonary vasculature is normal. IMPRESSION: Negative chest. ACT 112: Negative or not required by law. The above report was generated using voice recognition software. It may contain grammatical, syntax or spelling errors. Electronically signed by: Rocael Carver M.D. 10/14/2019 12:12 PM
[2019-10-14] MEDS ORDERED: HYDROCORTISONE SOD SUCCINATE 100 MG/2 ML VIAL ONE (12:17)
[2019-10-14] MEDS ORDERED: HYDROCORTISONE SOD SUCCINATE 100 MG/2 ML VIAL IV STA (12:20)
--- NOTE | 2019-10-14 12:28 | Nephrology Consultation ---
Date of Consultation October 14, 2019 Assessment & Plan (1) Acute kidney injury: Dona admitted with lower extremity cellulitis and found to be critically ill with hypotension, hypothermia, acute kidney injury with significant electrolyte abnormality. Since admission she also has been persistently hypotensive. She received multiple antibiotic 0 for lower extremity cellulitis over last 1 month. Baseline creatinine has been 1.2-1.4. On admission creatinine was 7.9, with hyperkalemia and metabolic acidosis. Volume status seems to be acceptable although has significant lower extremity edema. Differentials for acute kidney injury includes volume depletion, acute interstitial nephritis with multiple antibiotic exposure, glomerular pathology including post infectious GN considering cellulitis and possible concern for bacteremia, renal vasculitis or amyloidosis with history of rheumatoid arthritis and others. --non contrast CT abdomen pelvis currently pending --bicarb drip --Kayexalate 30 gram p.o. x1 dose --check random cortisol, start on stress dose steroid --blood culture --stat Urine analysis, spot urine protein creatinine ratio, complements C3 and C4 and SPEP and UPEP. Consider serology if no improvement. --monitor urine output, volume status and electrolyte closely. Repeat renal panel in an hour. No indication for dialysis at this time however, If potassium remains high or sign of volume overload, may need to do emergency dialysis. Discussed with pt but unclear whether she is understanding but refused dialysis. Tried to expalin that it will be temporary as a life saving measure but she did not make any decision. Offered to call and discuss with ehr family but she refused that as well. --avoid all NSAIDs, continue to hold PAZ-inhibitor/ARB Will follow Thank you for allowing me to participate in your patient's care. It was a pleasure to see Dona (2) Hyperkalemia: (3) Metabolic acidosis: (4) Hypotension: (5) Lower extremity cellulitis: (6) Chronic anemia: History of Present Illness Reason for Consultation: Acute kidney injury, hyperkalemia and metabolic acidosis. History of Present Illness Dona Villalpando 73-year-old female with past medical history significant for hypertension, rheumatoid arthritis, stage III CKD, admitted to the hospital with lower extremity cellulitis and found to have acute kidney injury and electrolyte abnormality. Nephrology consult was requested to manage AK I and electrolyte abnormality. Electronic medical records including labs and imaging are reviewed in detail during patient's visit. Dona has been having lower extremity edema and cellulitis for last almost 1 month. She was recently started on Lasix 40 milligram daily without much improvement in lower extremity edema. She was on multiple antibiotic over last 1 month including doxycycline, clindamycin, Keflex however none of them seem to be helping. She presented to ER for further management as lower extremity cellulitis and weeping worsen. On admission she was found to be found to be critically ill with hypotension, SBP from 50 to 60 , hypothermia Temp 32, PRINCESS with creatinine 7.9, potassium 5.6 and bicarb 8. Prior lab showed baseline creatinine has been 1.2-1.4. Had history of proteinuria before. No UA this time. She has been confused and restless and could not provide detail history well. Unclear whether she has been taking NSAIDs at home. She has been on prednisone and leflunomide at home. Was on losartan 75 milligram daily. She received 2 liters of normal saline since admission however her blood pressure continues to be significantly low with systolic blood pressure in 60s and diastolic in low 40s. Has history of rheumatoid arthritis, has been on leflunomide, hydroxychloroquine and prednisone. Hypertension, has been on losartan 75 milligram daily. Seems somewhat confused and restless. Allergies Allergy/AdvReac Type Severity Reaction Status Date / Time cefadroxil Allergy Intermediate Rash Verified 10/14/19 12:42 Sulfa (Sulfonamide Allergy Unknown RASH Verified 10/14/19 12:42 Antibiotics) oxycodone AdvReac Unknown NAUSEA Verified 10/14/19 12:42 Home Medications Home Medications Medication Instructions Recorded Confirmed Type aspirin [Ecotrin] 325 mg PO QAM 08/06/18 10/21/18 History hydroxychloroquine 400 mg PO HS 08/06/18 10/21/18 History leflunomide 20 mg PO QAM 08/06/18 10/21/18 History pravastatin 20 mg PO QPM 08/06/18 10/21/18 History prednisone 2.5 mg PO QAM 08/06/18 10/21/18 History prednisone 5 mg PO QAM 08/06/18 10/21/18 History losartan 75 mg PO QAM #30 tab 08/16/18 10/21/18 Rx nystatin 1 applic TOPICAL TID 10/21/18 10/21/18 History clotrimazole-betamethasone 1 appln TOP BID 14 Days #45 gm 10/11/19 Rx spironolactone 25 mg PO DAILY 10/14/19 10/14/19 History Patient History Surgical History History of cataract surgery BILATERAL History of colonoscopy History of surgical removal of skin lesion BACK History of total hip replacement RIGHT S/P revision of total hip RIGHT S/P JUAN-BSO Total knee replacement status BILATERAL Family History Father Non Hodgkin's lymphoma Mother Coronary heart disease Social History Preferred Language: Irish Communication Ability: Effective Deposit Clerk Required: No Beliefs That Will Affect Care: None marital status: Single Current Living Situation: Alone current occupational status: retired 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 Feels Safe at Home: Yes Smoking Status: Never smoker Second Hand Exposure: No ; Hx Alcohol Use: No Hx Substance Use: No Review of Systems Review of Systems: All systems reviewed & are unremarkable except as noted in HPI & below Physical Exam Constitutional: + acute distress, + ill appearing and + morbidly obese Eyes: PERRL, conjunctivae normal, anicteric sclerae ENMT: external ear and nose normal, oropharynx normal Ears: no hearing impairment Neck: trachea midline Respiratory: normal respiratory effort, lungs clear to auscultation no respiratory distress Cardiovascular: Rate/Rhythm: regular rate and regular rhythm Heart Sounds: normal S1 and normal S2 Extremities: + edema Gastrointestinal (Abdomen): normal bowel sounds, soft, nontender, no hepatosplenomegaly Percussion/Palpation: abdomen nontender, no guarding and abdomen not rigid Musculoskeletal: Extremities: extremities normal to inspection Gait: normal gait Skin: + ulcer (B/L LE with dressing) Neurologic: moves all extremities, awake and + confused; no focal motor deficits Psychiatric: Orientation: alert Results & Data Vital Signs (Past 12 Hours) Vital Signs Pulse Resp BP Pulse Ox 10/14/19 10:41 71 17 59/24 L 10/14/19 10:35 71 23 68/42 L 10/14/19 10:33 72 20 60/32 L 10/14/19 10:27 74 20 61/40 L 10/14/19 10:17 93 H 20 98 PG Care Time/CCT Total # of Minutes Spent Total Time Spent with Patient: Total time spent is greater than 50% in coordination of care (as documented) at patient's floor/unit and/or counseling patient: Coding Level of Care Code 64554 Inpt Consult Level 5 Diagnoses Acute kidney injury N17.9 Hyperkalemia E87.5 Metabolic acidosis E87.2 Hypotension I95.9 Lower extremity cellulitis L03.119 Chronic anemia D64.9
[2019-10-14] MEDS: SODIUM CHLORIDE 0.9% 1000ML 1,000 ML IV SCH ×3 (12:40→16:02)
[2019-10-14] MEDS: SODIUM BICARBONATE 8.4% 150 MEQ in DEXTROSE 5% 1,000 ML IV SCH ×2 (12:40→19:44)
[2019-10-14] MEDS ORDERED: SODIUM POLYSTYRENE SULFONATE 15G/60ML SUSP PO STA (12:52)
[2019-10-14] MEDS ORDERED: ALBUTEROL 0.083% NEBU SOLN 3 ML VIAL NEB STA (12:52)
[2019-10-14] MEDS ORDERED: DEXTROSE 50% 50 ML SYRINGE IV ONE (12:52)
[2019-10-14] MEDS ORDERED: NovoLIN-R INSULIN PER UNIT CHARGE IV STA (12:52)
[2019-10-14] MEDS ORDERED: STAT IV Infusion **Titration per Protocol STA ×2 (12:58→15:27)
--- NOTE | 2019-10-14 13:41 | History & Physical Report ---
Date of Service October 14, 2019 Assessment & Plan (1) Sepsis: HypoTN, tachycardia on presentation Likely source is cellulitis CXR neg for acute UA pending WBC WNL, hypothermic on presentation Lactic acid elevated to 2.6, repeat pending IVF, levophed, abx (2) Lower extremity cellulitis: Failed multiple trials of outpt tx including clinda, doxy, keflex Started on vanco/zosyn in the ED, will continue IVF See above (3) Hyperkalemia: Insulin, bicarb, nebs in the ED Holding on kayexalate for now Renal involved Repeat labs 2p (4) Acute kidney injury: Baseline cr 1.3 Cr 7.9 on admission Seen by renal in ED, planning for repeat labs at 2p to determine HD needs Pt informed renal that she does not want HD per ED physician (5) HTN (hypertension): Holding home meds for hypoTN (6) Hyperlipidemia: Holding statin (7) Rheumatoid arthritis: Baseline prednisone use 7.5mg QD Stress dose steroids, 100mg hydrocortisone in ED Monitor with 50mg Q6hr (8) DVT prophylaxis: Heparin for DVT proph Pt is uncertain if she wants cardiac resuscitation, but clearly states no intubation. Advised she will be listed for full cardiac tx given her uncertainty and to alert someone if she changes her mind about any part of code status. Asked about family to call and she states that she has a brother only and "I don't want to bother anyone". History of Present Illness Primary Care Provider: KARI Coughlin 73 y/o F who was sent to the ED by dermatology after being seen in the office earlier today. Pt has been working with her PCP for the last month for b/l LE cellulitis. She has been on multiple courses of abx, including clinda, doxy, and keflex, but her cellulitis and swelling is getting worse. She has worsening pain to the b/l LE as well. She was referred to derm for this reason. She states she has had cellulitis in the past, but it has cleared with basic abx use. She states she has been at her usual otherwise. Pt denies fever, SOB, chest pain, abd pain, n/v/c/d. She has decreased appetite, but has been eating without issue otherwise. Pt's biggest concern is her back pain with the positioning being used to improve her BP in the ED. Allergies Allergy/AdvReac Type Severity Reaction Status Date / Time cefadroxil Allergy Intermediate Rash Verified 10/14/19 12:42 Sulfa (Sulfonamide Allergy Unknown RASH Verified 10/14/19 12:42 Antibiotics) oxycodone AdvReac Unknown NAUSEA Verified 10/14/19 12:42 Home Medications Home Medications Medication Instructions Recorded Confirmed Type aspirin [Ecotrin] 325 mg PO QAM 08/06/18 10/14/19 History hydroxychloroquine 400 mg PO HS 08/06/18 10/14/19 History leflunomide 20 mg PO QAM 08/06/18 10/14/19 History pravastatin 20 mg PO QPM 08/06/18 10/14/19 History prednisone 2.5 mg PO QAM 08/06/18 10/14/19 History prednisone 5 mg PO QAM 08/06/18 10/14/19 History losartan 75 mg PO QAM #30 tab 08/16/18 10/14/19 Rx nystatin 1 applic TOPICAL TID 10/21/18 10/14/19 History clotrimazole-betamethasone 1 appln TOP BID 14 Days #45 gm 10/11/19 10/14/19 Rx spironolactone 25 mg PO DAILY 10/14/19 10/14/19 History Past Med/Surg History Medical History Anemia Cancer MELANOMA Cellulitis BILATERAL LEGS AND FEET, INPATIENT [facility] (JULY 2018) Chronic steroid use Fracture of sacrum BILATERAL. ~2016, PHYSICAL THERAPY. USES WALKER HLD (hyperlipidemia) HTN (hypertension) No blood products PER PATIENT REQUEST Obesity Pneumonia AUGUST 2017 Rheumatoid arthritis (Chronic) Surgical History History of cataract surgery BILATERAL History of colonoscopy History of surgical removal of skin lesion BACK History of total hip replacement RIGHT S/P revision of total hip RIGHT S/P JUAN-BSO Total knee replacement status BILATERAL Family History Father Non Hodgkin's lymphoma Mother Coronary heart disease Social History Preferred Language: Kinyarwanda Communication Ability: Effective Map And Chart Mounter Required: No Beliefs That Will Affect Care: None marital status: Single Current Living Situation: Alone current occupational status: retired 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. Feels Safe at Home: Yes Smoking Status: Never smoker Second Hand Exposure: No ; Hx Alcohol Use: No Hx Substance Use: No Review of Systems Review of Systems: Pertinent positives and negatives reviewed in HPI--all others negative Physical Exam Constitutional: WD/WN, vitals as above Eyes: normal visual hernandez by confrontation and + anicteric sclerae Neck: normal visual inspection and trachea midline Respiratory: normal respiratory effort, lungs clear to auscultation Cardiovascular: Rate/Rhythm: regular rate and regular rhythm Gastrointestinal (Abdomen): Inspection/Auscultation: abdomen not distended Percussion/Palpation: abdomen soft; abdomen nontender Musculoskeletal: Head/Neck/Chest: normocephalic and head atraumatic negative for edema, peripheral pulses intact Skin: b/l LE redness and scaling, erythema, swelling from toes to upper calves New bandaging in place, clean and dry Neurologic: awake; not confused Speech / Cognition: normal speech Psychiatric: A+Ox3, euthymic affect Results & Data Results & Data ([facility]) Vital Signs (Past 12 Hours) Vital Signs Pulse Resp BP Pulse Ox 10/14/19 12:41 64 17 99 10/14/19 12:40 64 18 75/39 L 99 10/14/19 12:35 64 15 69/37 L 100 10/14/19 12:31 65 14 99 10/14/19 12:30 65 17 72/35 L 100 10/14/19 12:28 65 19 58/26 L 100 10/14/19 12:25 65 18 53/37 L 98 10/14/19 12:20 64 19 63/34 L 98 10/14/19 12:10 67 14 65/27 L 10/14/19 12:05 66 18 57/44 L 99 10/14/19 12:02 72 21 140/79 99 10/14/19 11:56 67 15 69/41 L 99 10/14/19 11:50 67 14 63/36 L 99 10/14/19 11:45 66 14 66/30 L 99 10/14/19 11:41 66 17 70/36 L 100 06/26/20 11:36 67 16 84/36 L 10/14/19 11:26 67 16 75/44 L 10/14/19 11:16 66 17 81/41 L 10/14/19 11:12 68 16 72/35 L 10/14/19 10:41 71 17 59/24 L 10/14/19 10:35 71 23 68/42 L 10/14/19 10:33 72 20 60/32 L 10/14/19 10:27 74 20 61/40 L 10/14/19 10:17 93 H 20 98 Diagnostic Findings CXR: neg for acute ECG Rhythm: normal sinus Code Status & VTE Plan Code Status Pt is uncertain if she wants cardiac resuscitation, but clearly states no intubation. Advised she will be listed for full cardiac tx given her uncertainty and to alert someone if she changes her mind about any part of code status. Asked about family to call and she states that she has a brother only and "I don't want to bother anyone". VTE Prophylaxis Plan VTE Prophylaxis will be ordered: Yes PG Care Time/CCT Total # of Minutes Spent Total Time Spent with Patient: Total time spent is greater than 50% in coordination of care (as documented) at patient's floor/unit and/or counseling patient: Coding Level of Care Code 31259 Initial Inpt Care Lvl 3 Diagnoses Sepsis A41.9 Lower extremity cellulitis L03.119 Hyperkalemia E87.5 Acute kidney injury N17.9 HTN (hypertension) I10 Hyperlipidemia E78.5 Rheumatoid arthritis M06.9 DVT prophylaxis Z29.9
[2019-10-14] MEDS: NOREPINEPHRINE BIT INJ 8 MG in DEXTROSE 5% 500 ML IV SCH (13:54)
--- NOTE | 2019-10-14 14:18 | Critical Care Consultation ---
Date of Consultation October 14, 2019 Assessment & Plan (1) Sepsis: Reason Critically Ill: 73-year-old female with sepsis and septic shock PLAN: Neuro: Acute encephalopathy -Likely metabolic secondary to sepsis CV: Hypotension -Improved with vasoactive medication Fluids/Renal: Acute kidney injury hyperkalemia -Seen by nephrology, recommendations reviewed -Bicarbonate infusion -Improvement with fluids and medical management, holding dialysis at this time High gap metabolic acidosis Lactic acidosis: Resolved ID: Vancomycin and Zosyn for probable urinary source -Urine and blood cultures pending GI/Nutrition: Low potassium diet Heme: Anemia: At baseline DVT prophylaxis: Heparin twice daily Endocrine: ICU hyperglycemia protocol Vascular access: Peripheral IVs -At this time given that the patient's lactic acidosis is improved I would anticipate short-term use of vasoactive medications risk of central venous access outweighs benefits of continued utilizing peripheral IVs. Code Status: Conditional code Disposition: ICU (2) Lower extremity cellulitis: (3) Hypotension: (4) Metabolic acidosis: (5) Hyperkalemia: (6) Acute kidney injury: (7) Stasis dermatitis of both legs: History of Present Illness Reason for Consultation: Severe sepsis Requesting Physician: Yvrose Anguiano Attending Physician: Yvrose Anguiano History of Present Illness Patient is a 73-year-old female with a history of lower extremity cellulitis who presented for evaluation of possible worsening lower extremity infection. The emergency department she was found to be hypotensive as well as hypothermic and was started on broad-spectrum antibiotics as well as given fluid boluses and initiated vasoactive medications. She has been seen by nephrology for an acute kidney injury with associated hyperkalemia. The patient has not been definitive with regards to desiring to undergo hemodialysis should this be needed. Allergies Allergy/AdvReac Type Severity Reaction Status Date / Time cefadroxil Allergy Intermediate Rash Verified 10/14/19 12:42 Sulfa (Sulfonamide Allergy Unknown RASH Verified 10/14/19 12:42 Antibiotics) oxycodone AdvReac Unknown NAUSEA Verified 10/14/19 12:42 Home Medications Home Medications Medication Instructions Recorded Confirmed Type aspirin [Ecotrin] 325 mg PO QAM 08/06/18 10/14/19 History hydroxychloroquine 400 mg PO HS 08/06/18 10/14/19 History leflunomide 20 mg PO QAM 08/06/18 10/14/19 History pravastatin 20 mg PO QPM 08/06/18 10/14/19 History prednisone 2.5 mg PO QAM 08/06/18 10/14/19 History prednisone 5 mg PO QAM 08/06/18 10/14/19 History losartan 75 mg PO QAM #30 tab 08/16/18 10/14/19 Rx nystatin 1 applic TOPICAL TID 10/21/18 10/14/19 History clotrimazole-betamethasone 1 appln TOP BID 14 Days #45 gm 10/11/19 10/14/19 Rx spironolactone 25 mg PO DAILY 10/14/19 10/14/19 History Patient History Medical History Anemia Cancer MELANOMA Cellulitis BILATERAL LEGS AND FEET, INPATIENT [facility] (JULY 2018) Chronic steroid use Fracture of sacrum BILATERAL. ~2016, PHYSICAL THERAPY. USES WALKER HLD (hyperlipidemia) HTN (hypertension) No blood products PER PATIENT REQUEST Obesity Pneumonia AUGUST 2017 Rheumatoid arthritis (Chronic) Surgical History History of cataract surgery BILATERAL History of colonoscopy History of surgical removal of skin lesion BACK History of total hip replacement RIGHT S/P revision of total hip RIGHT S/P JUAN-BSO Total knee replacement status BILATERAL Family History Father Non Hodgkin's lymphoma Mother Coronary heart disease Social History Preferred Language: R[place] Communication Ability: Effective Clinical Pathologist Required: No Beliefs That Will Affect Care: None marital status: Single Current Living Situation: Alone current occupational status: retired 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 Feels Safe at Home: Yes Smoking Status: Never smoker Second Hand Exposure: No ; Hx Alcohol Use: No Hx Substance Use: No Review of Systems Review of Systems: Unobtainable due to reduced consciousness Physical Exam Physical Exam: General: Alert. Complaining of bilateral lower extremity pain which is different from initial presentation. Skin: Cool, dry, bilateral lower extremities are in gauze wraps with Vaseline gauze these were placed in the emergency department. I discussed the initial findings with the emergency department physician, patient was not having pain of the bilateral lower extremities, they were extremely cool and this may be community health program representative of reperfusion Head: Atraumatic Ears, nose, mouth and throat: airway patent Cardiovascular: Capillary refill increase greater than 3 seconds Respiratory: no respiratory distress Gastrointestinal: Non distended Musculoskeletal: No deformity Results & Data Results & Data ([facility]) Vital Signs (Past 12 Hours) Vital Signs Temp Pulse Pulse Resp BP Pulse Ox 10/14/19 13:48 66 18 100 10/14/19 13:36 34.5 C L 64 18 113/43 L 100 10/14/19 13:10 65 15 80/32 L 98 10/14/19 13:06 65 19 69/29 L 99 10/14/19 12:55 65 18 57/32 L 98 10/14/19 12:50 73 15 74/33 L 98 10/14/19 12:45 65 16 68/34 L 99 10/14/19 12:41 64 17 99 10/14/19 12:40 64 18 75/39 L 99 10/14/19 12:35 64 15 69/37 L 100 10/14/19 12:31 65 14 99 10/14/19 12:30 65 17 72/35 L 100 10/14/19 12:28 65 19 58/26 L 100 10/14/19 12:25 65 18 53/37 L 98 10/14/19 12:20 64 19 63/34 L 98 10/14/19 12:10 67 14 65/27 L 10/14/19 12:05 66 18 57/44 L 99 10/14/19 12:02 72 21 140/79 99 10/14/19 12:00 32.7 C L 10/14/19 11:56 67 15 69/41 L 99 10/14/19 11:50 67 14 63/36 L 99 10/14/19 11:45 66 14 66/30 L 99 10/14/19 11:41 66 17 70/36 L 100 10/14/19 11:36 67 16 84/36 L 10/14/19 11:26 67 16 75/44 L 10/14/19 11:16 66 17 81/41 L 10/14/19 11:12 68 16 72/35 L 10/14/19 10:41 71 17 59/24 L 10/14/19 10:35 71 23 68/42 L 10/14/19 10:33 72 20 60/32 L 10/14/19 10:27 74 20 61/40 L 10/14/19 10:17 93 H 20 98 Laboratory Results 10/14/19 10/14/19 10/14/19 Range/Units 14:14 14:14 13:46 WBC (4.8-10.8) K/uL RBC (4.2-5.4) M/uL Hgb (12.0-16.0) g/dL Hct (37-47) % MCV (80-100) fL MCH (25-34) pg MCHC (32-36) g/dL RDW Std Deviation (36.4-46.3) fL RDW Coeff of Saadia (11.5-14.5) % Plt Count (130-400) K/uL MPV (7.4-10.4) fL Immature Gran % (Auto) % Neut % (Auto) % Lymph % (Auto) % [place] % (Auto) % Eos % (Auto) % Baso % (Auto) % Neut # (Auto) (1.4-6.5) K/uL Lymph # (Auto) (1.2-3.4) K/uL [place] # (Auto) (0.11-0.59) K/uL Eos # (Auto) (0-0.5) K/uL Baso # (Auto) (0-0.2) K/uL Immature Gran # (Auto) (0.00-0.02) K/uL PT (9.0-12.0) Seconds INR (0.9-1.1) APTT (21.0-31.0) Seconds PTT Ratio Sodium 137 (136-145) mmol/L Potassium 4.9 (3.5-5.1) mmol/L Chloride 113 H (98-107) mmol/L Carbon Dioxide 7 L* (21-32) mmol/L Anion Gap 16.0 H (3-11) BUN 143 H (7-18) mg/dl Creatinine 6.69 H* D (0.6-1.2) mg/dl Est Cr Clr Drug Dosing Not Reportable Est GFR ( Amer) 6.5 Est GFR (Non-Af Amer) 5.6 BUN/Creatinine Ratio 21.5 H (10-20) Glucose 249 H (70-99) mg/dl Lactate (0.4-2.0) mmol/L Calcium 7.4 L D (8.5-10.1) mg/dl Magnesium (1.8-2.4) mg/dl Total Bilirubin (0.2-1) mg/dl AST (15-37) U/L ALT (12-78) U/L Alkaline Phosphatase (45-117) U/L Troponin I (0-0.045) ng/ml Total Protein (6.4-8.2) gm/dl Total Protein (PEP) Albumin (3.4-5.0) gm/dl Albumin (PEP) Globulin (2.5-4.0) gm/dl Albumin/Globulin Ratio (0.9-2) Ytkih-9-Jjdckyflu Lgpjk-3-Ihbaangzl Ratp-5-Hofjvjju Qohg-5-Lurujixw Gamma Globulins Monoclonal Peak 3 Ser Monoclonl Protein Ser Monoclonal Prot 2 PEP Interpretation Procalcitonin (0-0.5) ng/ml Random Cortisol mcg/dl Urine Color Pending Urine Appearance Pending Urine pH Pending Ur Specific [place] Pending Urine Protein Pending Urine Glucose (UA) Pending Urine Ketones Pending Urine Blood Pending Urine Nitrite Pending Urine Bilirubin Pending Urine Urobilinogen Pending Ur Leukocyte Esterase Pending U Random Total Protein Pending Ur Creatinine mg/dL Pending Protein/Creatinin Ratio Pending Urine Albumin (%) Pending U Keiji-0-Nworqkxo (%) Pending U [place]-2-Oyhcezuh (%) Pending U Beta Globulin (%) Pending U Gamma Globulin (%) Pending U Abnormal Prot Band 1 Pending U Abnormal Prot Band 2 Pending U Abnormal Prot Band 3 Pending Urine PEP Interpret Pending Complement C3 Complement C4 Free Hamer LC, Quant Free Lambda LC, Quant Free Hamer/Lambda Ratio 10/14/19 10/14/19 10/14/19 Range/Units 13:43 13:43 11:06 WBC (4.8-10.8) K/uL RBC (4.2-5.4) M/uL Hgb (12.0-16.0) g/dL Hct (37-47) % MCV (80-100) fL MCH (25-34) pg MCHC (32-36) g/dL RDW Std Deviation (36.4-46.3) fL RDW Coeff of Saadia (11.5-14.5) % Plt Count (130-400) K/uL MPV (7.4-10.4) fL Immature Gran % (Auto) % Neut % (Auto) % Lymph % (Auto) % [place] % (Auto) % Eos % (Auto) % Baso % (Auto) % Neut # (Auto) (1.4-6.5) K/uL Lymph # (Auto) (1.2-3.4) K/uL [place] # (Auto) (0.11-0.59) K/uL Eos # (Auto) (0-0.5) K/uL Baso # (Auto) (0-0.2) K/uL Immature Gran # (Auto) (0.00-0.02) K/uL PT (9.0-12.0) Seconds INR (0.9-1.1) APTT (21.0-31.0) Seconds PTT Ratio Sodium (136-145) mmol/L Potassium (3.5-5.1) mmol/L Chloride (98-107) mmol/L Carbon Dioxide (21-32) mmol/L Anion Gap (3-11) BUN (7-18) mg/dl Creatinine (0.6-1.2) mg/dl Est Cr Clr Drug Dosing Est GFR ( Amer) Est GFR (Non-Af Amer) BUN/Creatinine Ratio (10-20) Glucose (70-99) mg/dl Lactate 1.0 (0.4-2.0) mmol/L Calcium (8.5-10.1) mg/dl Magnesium (1.8-2.4) mg/dl Total Bilirubin (0.2-1) mg/dl AST (15-37) U/L ALT (12-78) U/L Alkaline Phosphatase (45-117) U/L Troponin I (0-0.045) ng/ml Total Protein (6.4-8.2) gm/dl Total Protein (PEP) Pending Albumin (3.4-5.0) gm/dl Albumin (PEP) Pending Globulin (2.5-4.0) gm/dl Albumin/Globulin Ratio (0.9-2) Gnyfa-8-Ryzofamfg Pending Ewslb-0-Vdjiauhdy Pending Ysis-2-Yhqeyoir Pending Eqpc-0-Twzhcqbc Pending Gamma Globulins Pending Monoclonal Peak 3 Pending Ser Monoclonl Protein Pending Ser Monoclonal Prot 2 Pending PEP Interpretation Pending Procalcitonin 5.41 H (0-0.5) ng/ml Random Cortisol mcg/dl Urine Color Urine Appearance Urine pH Ur Specific [place] Urine Protein Urine Glucose (UA) Urine Ketones Urine Blood Urine Nitrite Urine Bilirubin Urine Urobilinogen Ur Leukocyte Esterase U Random Total Protein Ur Creatinine mg/dL Protein/Creatinin Ratio Urine Albumin (%) U Dtryq-6-Fxagdgzl (%) U Cgbcz-8-Cdpmmrig (%) U Beta Globulin (%) U Gamma Globulin (%) U Abnormal Prot Band 1 U Abnormal Prot Band 2 U Abnormal Prot Band 3 Urine PEP Interpret Complement C3 Pending Complement C4 Pending Free Hamer LC, Quant Pending Free Lambda LC, Quant Pending Free Hamer/Lambda Ratio Pending 10/14/19 10/14/19 10/14/19 Range/Units 11:06 11:06 11:06 WBC (4.8-10.8) K/uL RBC (4.2-5.4) M/uL Hgb (12.0-16.0) g/dL Hct (37-47) % MCV (80-100) fL MCH (25-34) pg MCHC (32-36) g/dL RDW Std Deviation (36.4-46.3) fL RDW Coeff of Saadia (11.5-14.5) % Plt Count (130-400) K/uL MPV (7.4-10.4) fL Immature Gran % (Auto) % Neut % (Auto) % Lymph % (Auto) % [place] % (Auto) % Eos % (Auto) % Baso % (Auto) % Neut # (Auto) (1.4-6.5) K/uL Lymph # (Auto) (1.2-3.4) K/uL [place] # (Auto) (0.11-0.59) K/uL Eos # (Auto) (0-0.5) K/uL Baso # (Auto) (0-0.2) K/uL Immature Gran # (Auto) (0.00-0.02) K/uL PT 11.0 (9.0-12.0) Seconds INR 1.0 (0.9-1.1) APTT 30.3 (21.0-31.0) Seconds PTT Ratio 1.1 Sodium 135 L (136-145) mmol/L Potassium 5.6 H (3.5-5.1) mmol/L Chloride 107 (98-107) mmol/L Carbon Dioxide 8 L* (21-32) mmol/L Anion Gap 20.0 H (3-11) BUN 161 H (7-18) mg/dl Creatinine 7.92 H* (0.6-1.2) mg/dl Est Cr Clr Drug Dosing Not Reportable Est GFR ( Amer) 5.3 Est GFR (Non-Af Amer) 4.6 BUN/Creatinine Ratio 20.6 H (10-20) Glucose 100 H (70-99) mg/dl Lactate 2.6 H* (0.4-2.0) mmol/L Calcium 9.2 (8.5-10.1) mg/dl Magnesium 2.9 H (1.8-2.4) mg/dl Total Bilirubin 0.3 (0.2-1) mg/dl AST 8 L (15-37) U/L ALT 16 (12-78) U/L Alkaline Phosphatase 92 (45-117) U/L Troponin I < 0.015 (0-0.045) ng/ml Total Protein 6.5 (6.4-8.2) gm/dl Total Protein (PEP) Albumin 2.8 L (3.4-5.0) gm/dl Albumin (PEP) Globulin 3.7 (2.5-4.0) gm/dl Albumin/Globulin Ratio 0.8 L (0.9-2) Oktcq-0-Hkpzkfwea Iisni-4-Abgktjvrv Hmza-4-Gpdzjasd Whzj-5-Cjoslvsk Gamma Globulins Monoclonal Peak 3 Ser Monoclonl Protein Ser Monoclonal Prot 2 PEP Interpretation Procalcitonin (0-0.5) ng/ml Random Cortisol mcg/dl Urine Color Urine Appearance Urine pH Ur Specific [place] Urine Protein Urine Glucose (UA) Urine Ketones Urine Blood Urine Nitrite Urine Bilirubin Urine Urobilinogen Ur Leukocyte Esterase U Random Total Protein Ur Creatinine mg/dL Protein/Creatinin Ratio Urine Albumin (%) U Xjzwd-6-Grsuknvp (%) U Fffcl-9-Cjhnvsuw (%) U Beta Globulin (%) U Gamma Globulin (%) U Abnormal Prot Band 1 U Abnormal Prot Band 2 U Abnormal Prot Band 3 Urine PEP Interpret Complement C3 Complement C4 Free Hamer LC, Quant Free Lambda LC, Quant Free Hamer/Lambda Ratio 10/14/19 10/14/19 Range/Units 11:06 11:00 WBC 6.08 (4.8-10.8) K/uL RBC 4.42 (4.2-5.4) M/uL Hgb 11.4 L (12.0-16.0) g/dL Hct 35.2 L (37-47) % MCV 79.6 L (80-100) fL MCH 25.8 (25-34) pg MCHC 32.4 (32-36) g/dL RDW Std Deviation 48.0 H (36.4-46.3) fL RDW Coeff of Saadia 16.6 H (11.5-14.5) % Plt Count 175 (130-400) K/uL MPV 10.4 (7.4-10.4) fL Immature Gran % (Auto) 0.7 % Neut % (Auto) 92.2 % Lymph % (Auto) 5.1 % [place] % (Auto) 1.6 % Eos % (Auto) 0.2 % Baso % (Auto) 0.2 % Neut # (Auto) 5.61 (1.4-6.5) K/uL Lymph # (Auto) 0.31 L (1.2-3.4) K/uL [place] # (Auto) 0.10 L (0.11-0.59) K/uL Eos # (Auto) 0.01 (0-0.5) K/uL Baso # (Auto) 0.01 (0-0.2) K/uL Immature Gran # (Auto) 0.04 H (0.00-0.02) K/uL PT (9.0-12.0) Seconds INR (0.9-1.1) APTT (21.0-31.0) Seconds PTT Ratio Sodium (136-145) mmol/L Potassium (3.5-5.1) mmol/L Chloride (98-107) mmol/L Carbon Dioxide (21-32) mmol/L Anion Gap (3-11) BUN (7-18) mg/dl Creatinine (0.6-1.2) mg/dl Est Cr Clr Drug Dosing Est GFR ( Amer) Est GFR (Non-Af Amer) BUN/Creatinine Ratio (10-20) Glucose (70-99) mg/dl Lactate (0.4-2.0) mmol/L Calcium (8.5-10.1) mg/dl Magnesium (1.8-2.4) mg/dl Total Bilirubin (0.2-1) mg/dl AST (15-37) U/L ALT (12-78) U/L Alkaline Phosphatase (45-117) U/L Troponin I (0-0.045) ng/ml Total Protein (6.4-8.2) gm/dl Total Protein (PEP) Albumin (3.4-5.0) gm/dl Albumin (PEP) Globulin (2.5-4.0) gm/dl Albumin/Globulin Ratio (0.9-2) Rjnwa-7-Jvvifergr Nbpev-6-Pszsgwfge Zdch-2-Gnwkmexb Wmmj-6-Qxmsuwgy Gamma Globulins Monoclonal Peak 3 Ser Monoclonl Protein Ser Monoclonal Prot 2 PEP Interpretation Procalcitonin (0-0.5) ng/ml Random Cortisol 60.11 mcg/dl Urine Color Urine Appearance Urine pH Ur Specific [place] Urine Protein Urine Glucose (UA) Urine Ketones Urine Blood Urine Nitrite Urine Bilirubin Urine Urobilinogen Ur Leukocyte Esterase U Random Total Protein Ur Creatinine mg/dL Protein/Creatinin Ratio Urine Albumin (%) U Ramha-6-Uspzcdfn (%) U Yipyd-8-Mcvwuxzs (%) U Beta Globulin (%) U Gamma Globulin (%) U Abnormal Prot Band 1 U Abnormal Prot Band 2 U Abnormal Prot Band 3 Urine PEP Interpret Complement C3 Complement C4 Free Hamer LC, Quant Free Lambda LC, Quant Free Hamer/Lambda Ratio Coding Level of Care Code Critical Care 1st 30-74 mins Diagnoses Sepsis A41.9 Sepsis acute organ dysfunction status: with acute organ dysfunction Severe sepsis acute organ dysfunction type: acute renal failure Acute renal failure type: unspecified Severe sepsis shock status: with septic shock Lower extremity cellulitis L03.119 Hypotension I95.9 Metabolic acidosis E87.2 Hyperkalemia E87.5 Acute kidney injury N17.9 Stasis dermatitis of both legs I87.2 Time Spent (min) 85 Comment I have personally spent 85 minutes of critical care time in the direct management of this patient. This is a life/limb threatening event. This includes time spent evaluating patient, direct bedside care, chart review, placing orders, interpretation of diagnostic studies, discussion with consultants, patient, and/or family members regarding treatment decisions, as well as other required patient management activities. This time is exclusive of all separately billable procedures, and teaching time and separate from and in addition to any other critical care service time. (1) Sepsis Sepsis acute organ dysfunction status: with acute organ dysfunction Severe sepsis acute organ dysfunction type: acute renal failure Acute renal failure type: unspecified Severe sepsis shock status: with septic shock
[2019-10-14] MEDS ORDERED: SODIUM CHLORIDE 0.9% 1000ML 1,000 ML IV STA (14:34)
[2019-10-14] MEDS ORDERED: fentaNYL citrate 100 MCG/2 ML VIAL IV ONE ×2 (14:43→19:30)
[2019-10-14 14:49] LABS: BUN Creatinine Ratio 21.5 (10-20); Blood Urea Nitrogen 143 mg/dl (7-18); Calcium 7.4 mg/dl (8.5-10.1); Carbon Dioxide 7 mmol/L (21-32); Chloride 113 mmol/L (98-107); Est GFR (African American) 6.5; Est GFR (Non-African American) 5.6; Glucose 249 mg/dl (70-99); Potassium 4.9 mmol/L (3.5-5.1); Sodium 137 mmol/L (136-145)
[2019-10-14 14:55] LABS: Appearance Urine Turbid (Clear); Bacteria Urine Automated Negative (Negative); Bilirubin Urine Negative (Negative); Blood Urine 1+ (Negative); Color Urine Dark Yellow; Epithelial Cell Urine Auto >30 /lpf (0-5); Glucose Urine UA Negative (Negative); Ketones Urine Trace (Negative); Leukocyte Esterase Urine 1+ (Negative); Nitrite Urine Negative (Negative); Protein Urine 2+ (Negative); Specific Gravity Urine 1.028 (1.000-1.030); Urobilinogen Urine Negative (Negative); WBC Urine Automated >30 /hpf (0-5)
[2019-10-14] MEDS ORDERED: HYDROCORTISONE SOD SUCCINATE 100 MG/2 ML VIAL IV SCH (15:27)
[2019-10-14] MEDS ORDERED: ICU PROTOCOL FOR HYPERGLYCEMIA PRN (15:27)
[2019-10-14] MEDS ORDERED: SODIUM BICARBONATE 8.4% 150 MEQ in DEXTROSE 5% 1,000 ML IV SCH (15:27)
[2019-10-14] MEDS ORDERED: NOREPINEPHRINE BIT INJ 8 MG in DEXTROSE 5% 500 ML IV SCH (15:27)
[2019-10-14] MEDS ORDERED: VANCOMYCIN HCL 1,000 MG in SODIUM CHLORIDE 0.9% 250 ML IV SCH (15:27)
[2019-10-14] MEDS ORDERED: MAGNESIUM HYDROXIDE SUSP 30 ML UDC PO PRN (15:27)
--- NOTE | 2019-10-14 15:52 | Electrocardiogram Report ---
Test Reason : Blood Pressure : / mmHG Vent. Rate : 066 BPM Atrial Rate : 066 BPM P-R Int : 166 ms QRS Dur : 100 ms QT Int : 448 ms P-R-T Axes : 050 -29 040 degrees QTc Int : 469 ms Normal sinus rhythm Normal ECG When compared with ECG of 20-OCT-2018 23:37, Premature atrial complexes are no longer Present Vent. rate has decreased BY 32 BPM Confirmed by Marquis Mendoza ([id number]) on 10/14/2019 3:51:59 PM Referred By: Shant Miranda Confirmed By:Marquis Mendoza
[2019-10-14] MEDS: HYDROCORTISONE SOD 50 MG in SYRINGE 0 ML IV SCH (16:22)
[2019-10-14] MEDS: HEPARIN SOD 5,000 UNIT/0.5 ML VIAL SQ SCH ×2 (16:22→21:44)
[2019-10-14] MEDS: PIPERACILLIN/TAZOBACTAM 4.5 GM in DEXTROSE 5% 100 ML IV SCH (19:44)
--- NOTE | 2019-10-14 20:44 | Pharmacy Report ---
Pharmacy Abx Initial Consult - Date of Service October 14, 2019 - Pharmacy Dosing Scope Date of Consult: 10/14/19 Consultation requested by: Dr. Anguiano Pharmacy is consulted to continue IV Vancomycin/Zosyn dosing therapy, order appropriate labs and adjust drug dose/frequency. - Subjective The patient is a 73 year old F admitted on 10/14/19 13:30 admitted with sepsis and acute kidney injury. She is currently admitted to ICU and refusing HD. There is some question if source is lower extremity cellulitis or urine. Dr. Anguiano continued both broad spectrum agents Zosyn and Vancomycin as urine & blood cultures are pending. - Objective Height: 5 ft 5 in Weight: 109.8 kg Vital Signs (Past 12hrs): Vital Signs Temp Pulse Pulse Resp BP Pulse Ox 10/14/19 18:20 33.5 C L 82 14 94/56 L 100 10/14/19 18:00 33.4 C L 81 15 100 10/14/19 17:49 33.4 C L 81 13 92/51 L 100 10/14/19 17:40 33.3 C L 83 16 77/52 L 99 10/14/19 17:29 33.3 C L 82 15 80/43 L 100 10/14/19 17:19 33.3 C L 80 13 71/35 L 100 10/14/19 16:49 33.2 C L 80 14 87/40 L 100 10/14/19 16:20 33.2 C L 80 13 100 10/14/19 16:19 33.2 C L 84 14 93/53 L 98 10/14/19 16:00 33.1 C L 84 16 10/14/19 15:25 33.2 C L 83 17 100/48 L 94 10/14/19 15:09 89 16 10/14/19 14:36 77 17 126/58 L 100 10/14/19 14:30 76 15 114/53 L 100 10/14/19 14:25 73 16 116/55 L 100 10/14/19 14:20 35.2 C L 72 14 111/56 L 100 10/14/19 14:16 76 15 101/67 95 10/14/19 14:10 85 16 83/70 L 100 10/14/19 14:06 71 16 98/49 L 99 10/14/19 14:01 16 115/40 L 93 10/14/19 13:50 68 19 79/44 L 100 10/14/19 13:48 66 18 100 10/14/19 13:46 67 15 67/54 L 100 10/14/19 13:40 67 17 85/46 L 100 10/14/19 13:36 34.5 C L 64 18 113/43 L 100 10/14/19 13:10 65 15 80/32 L 98 10/14/19 13:06 65 19 69/29 L 99 10/14/19 12:55 65 18 57/32 L 98 10/14/19 12:50 73 15 74/33 L 98 10/14/19 12:45 65 16 68/34 L 99 10/14/19 12:41 64 17 99 10/14/19 12:40 64 18 75/39 L 99 10/14/19 12:35 64 15 69/37 L 100 10/14/19 12:31 65 14 99 10/14/19 12:30 65 17 72/35 L 100 10/14/19 12:28 65 19 58/26 L 100 10/14/19 12:25 65 18 53/37 L 98 10/14/19 12:20 64 19 63/34 L 98 10/14/19 12:10 67 14 65/27 L 10/14/19 12:05 66 18 57/44 L 99 10/14/19 12:02 72 21 140/79 99 10/14/19 12:00 32.7 C L 10/14/19 11:56 67 15 69/41 L 99 10/14/19 11:50 67 14 63/36 L 99 10/14/19 11:45 66 14 66/30 L 99 10/14/19 11:41 66 17 70/36 L 100 10/14/19 11:36 67 16 84/36 L 10/14/19 11:26 67 16 75/44 L 10/14/19 11:16 66 17 81/41 L 10/14/19 11:12 68 16 72/35 L 10/14/19 10:41 71 17 59/24 L 10/14/19 10:35 71 23 68/42 L 10/14/19 10:33 72 20 60/32 L 10/14/19 10:27 74 20 61/40 L 10/14/19 10:17 93 H 20 98 Lab Results (24hrs): Laboratory Tests (24 Hours) 10/14/19 10/14/19 10/14/19 13:46 11:06 11:06 WBC Neut # (Auto) Creatinine 6.69 H* D 7.92 H* Est Cr Clr Drug Dosing Not Reportable Not Reportable Procalcitonin 5.41 H 10/14/19 11:06 WBC 6.08 Neut # (Auto) 5.61 Creatinine Est Cr Clr Drug Dosing Procalcitonin Micro Results: 10/14/19 14:14 Urine Culture - Pending Urine,Clean Catch 10/14/19 13:40 Aerobic Blood Culture - Pending Blood Anaerobic Blood Culture - Pending 10/14/19 11:06 Aerobic Blood Culture - Pending Blood Anaerobic Blood Culture - Pending - Assessment & Plan Assessment 73 year old F on Zosyn and Vancomycin for sepsis Plan Vancomycin IV * Estimated PK Parameters: Vd 55 L/kg, Jose 0.012 hr-1, t1/2 ~58 hr * Loading dose: 2000mg (~18 mg/kg) * Maintenance dose: pending renal improvement * Random level ordered 10/15/19 with am labs Piperacillin/tazobactam * 4.5 g bolus administered over 30 minutes, then 4.5 g IV extended infusion every 12 hours for CrCl 20 mL/min or less * Aggressive dosing selected due to critically ill status/BMI 35 or more Pharmacy will continue to follow and will adjust dose/frequency as necessary. Thank you.
[2019-10-14] MEDS: HYDROXYCHLOROQUINE SULFATE 200 MG TAB PO SCH (21:44)
[2019-10-15] MEDS: HYDROCORTISONE SOD 50 MG in SYRINGE 0 ML IV SCH ×5 (01:22→23:20)
[2019-10-15] MEDS ORDERED: fentaNYL citrate 100 MCG/2 ML VIAL IV STA (01:36)
[2019-10-15] MEDS: SODIUM CHLORIDE 0.9% 1000ML 1,000 ML IV SCH (02:41)
[2019-10-15] MEDS: SODIUM BICARBONATE 8.4% 150 MEQ in DEXTROSE 5% 1,000 ML IV SCH ×3 (02:41→19:44)
[2019-10-15 04:44] LABS: Hematocrit (blood only) 33.1 % (37-47); Hemoglobin 10.5 g/dL (12.0-16.0); Mean Corpuscular Hemoglobin 24.9 pg (25-34); Mean Corpuscular Hgb Conc 31.7 g/dL (32-36); Mean Corpuscular Volume 78.4 fL (80-100); Mean Platelet Volume 10.1 fL (7.4-10.4); Platelet Count 187 K/uL (130-400); RDW Coefficient of Variation 16.4 % (11.5-14.5); RDW Standard Deviation 46.9 fL (36.4-46.3); Red Blood Count 4.22 M/uL (4.2-5.4); White Blood Count 5.73 K/uL (4.8-10.8)
[2019-10-15 04:59] LABS: Albumin Level 1.9 gm/dl (3.4-5.0); BUN Creatinine Ratio 23.4 (10-20); Bilirubin Direct 0.2 mg/dl (0-0.2); Bilirubin,Total 0.4 mg/dl (0.2-1); Calcium 7.7 mg/dl (8.5-10.1); Est GFR (African American) 7.2; Est GFR (Non-African American) 6.2; Magnesium 2.1 mg/dl (1.8-2.4); Phosphorus 7.3 mg/dl (2.5-4.9); Potassium 4.5 mmol/L (3.5-5.1); Total Protein 5.2 gm/dl (6.4-8.2)
[2019-10-15 05:38] LABS: Immature Granulocytes # (auto) 0.08 K/uL (0.00-0.02); Immature Granulocytes % (auto) 1.4 %; Lymphocytes # (auto) 0.11 K/uL (1.2-3.4); Lymphocytes % (auto) 1.9 %; Monocytes # (auto) 0.17 K/uL (0.11-0.59); Neutrophils # (auto) 5.37 K/uL (1.4-6.5); Neutrophils % (auto) 93.7 %; Toxic Vacuolation 2+
[2019-10-15] MEDS: HEPARIN SOD 5,000 UNIT/0.5 ML VIAL SQ SCH ×3 (05:53→20:50)
[2019-10-15] MEDS: NOREPINEPHRINE BIT INJ 8 MG in DEXTROSE 5% 500 ML IV SCH ×2 (05:54→16:58)
--- NOTE | 2019-10-15 06:47 | CT Scan Report ---
CT abd pelvis wo con CT DOSE: 1427.60 mGy.cm HISTORY: Renal insufficiency. Renal failure. ARF TECHNIQUE: Multiaxial CT images of the abdomen and pelvis were performed without contrast. A dose lo wering technique was utilized adhering to the principles of ALARA. COMPARISON STUDY: 08/28/2016 FINDINGS: Lung bases are clear. Liver spleen and pancreas are unremarkable. There are layering gallstones within the gallbladder. There is a lower left hepatic lobe cyst. Kidneys negative for hydronephrosis. Bowel pattern overall is nonobstructive. There are scattered colonic diverticuli with no evidence for acute diverticulitis. There are findings of a total right hip arthroplasty. IMPRESSION: 1. Gallstones. 2. Small hepatic cyst. 3. Otherwise no acute process. ACT 112: Negative or not required by law. The above report was generated using voice recognition software. It may contain grammatical, syntax or spelling errors. Electronically signed by: Rocael Carver M.D. 10/15/2019 6:46 AM
[2019-10-15] MEDS: PIPERACILLIN/TAZOBACTAM 4.5 GM in DEXTROSE 5% 100 ML IV SCH ×2 (07:43→20:50)
[2019-10-15] MEDS: PANTOprazole 40 MG TAB PO SCH (07:43)
--- NOTE | 2019-10-15 12:14 | Critical Care Progress Note ---
Date of Service October 15, 2019 Assessment & Plan (1) Sepsis: Reason Critically Ill: 73-year-old female with sepsis and septic shock PLAN: Neuro: Acute encephalopathy: Improved CV: Hypotension -Improved with vasoactive medication: Decreasing medication requirements Fluids/Renal: Acute kidney injury hyperkalemia: Resolved High gap metabolic acidosis -Improving with bicarbonate infusion Lactic acidosis: Resolved ID: Discontinuing vancomycin Continuing Zosyn for gram-negative bacteremia -Repeat blood cultures tomorrow morning -Reviewed previous culture data from wound: Multiple drug resistances was previously susceptible to Zosyn, normally we do not need the extended spectrum beta-lactamase for urinary tract infections based off a local sensitivities GI/Nutrition: Low potassium diet Heme: Anemia: At baseline DVT prophylaxis: Heparin twice daily Endocrine: ICU hyperglycemia protocol Vascular access: PICC -Patient does not desire dialysis at this time, preferred pack for less acute risk versus central venous access Code Status: Conditional code Disposition: ICU (2) Lower extremity cellulitis: (3) Hypotension: (4) Metabolic acidosis: (5) Hyperkalemia: (6) Acute kidney injury: (7) Stasis dermatitis of both legs: Admission and Anticipated Discharge Date Admission Date: October 14, 2019 Subjective Denies pain at the present time, reports she lives alone her nieces and brother occasionally check on her, she makes her own meals which usually consists of chicken and a starch. She does not take supplemental proteins. She has not seen wound care for her bilateral lower extremities. Review of Systems Review of Systems: No chest pain no shortness of breath Physical Exam Physical Exam: General: Alert. Complaining of bilateral lower extremity pain which is different from initial presentation. Skin: Warm and dry, bilateral lower extremities do not exhibit lymphangitis, there is rubor and venous stasis with 2+ pitting edema. This also appears to be a globalized anasarca. Head: Atraumatic Ears, nose, mouth and throat: airway patent Cardiovascular: Capillary refill within normal limits Respiratory: no respiratory distress Gastrointestinal: Non distended Musculoskeletal: No deformity Results & Data Results & Data ([facility]) Vital Signs (Past 12 Hours) Vital Signs Temp Pulse Resp BP Pulse Ox 10/15/19 09:16 37.2 C 82 20 108/55 L 99 10/15/19 08:46 37.2 C 81 20 101/63 99 10/15/19 08:02 37.3 C 80 20 99/66 L 99 10/15/19 07:48 37.3 C 84 21 137/64 98 10/15/19 07:33 37.2 C 78 18 86/48 L 99 10/15/19 07:17 37.2 C 79 17 82/61 L 99 10/15/19 07:02 37.2 C 78 18 123/75 99 10/15/19 07:00 37.2 C 79 18 99 10/15/19 06:30 37.2 C 80 17 68/47 L 98 10/15/19 06:17 37.2 C 81 16 104/50 L 97 10/15/19 06:00 37.0 C 87 21 99 10/15/19 05:50 91 H 20 92/71 L 99 10/15/19 05:30 90 22 98 10/15/19 05:20 87 21 96/48 L 99 10/15/19 05:00 85 21 99 10/15/19 04:50 84 19 87/38 L 99 10/15/19 04:00 36.0 C L 83 21 100 10/15/19 03:49 83 23 98/54 L 99 10/15/19 03:19 81 19 99/69 L 100 10/15/19 03:00 82 17 99 10/15/19 02:49 81 17 98/54 L 98 10/15/19 02:21 85 20 109/92 99 10/15/19 02:00 84 19 100 10/15/19 01:49 84 18 100/63 99 10/15/19 01:19 81 20 101/68 99 10/15/19 01:00 85 20 97 10/15/19 00:49 85 23 91/54 L 99 10/15/19 00:19 84 17 88/58 L 100 Coding Level of Care Code Critical Care 1st 30-74 mins Diagnoses Sepsis A41.9 Acute renal failure type: unspecified Sepsis acute organ dysfunction status: with acute organ dysfunction Severe sepsis acute organ dysfunction type: acute renal failure Severe sepsis shock status: with septic shock Lower extremity cellulitis L03.119 Hypotension I95.9 Metabolic acidosis E87.2 Hyperkalemia E87.5 Acute kidney injury N17.9 Stasis dermatitis of both legs I87.2 Time Spent (min) 50 Comment I have personally spent 50 minutes of critical care time in the direct management of this patient. This is a life/limb threatening event. This includes time spent evaluating patient, direct bedside care, chart review, placing orders, interpretation of diagnostic studies, discussion with consultants, patient, and/or family members regarding treatment decisions, as well as other required patient management activities. This time is exclusive of all separately billable procedures, and teaching time and separate from and in addition to any other critical care service time. (1) Sepsis Acute renal failure type: unspecified Sepsis acute organ dysfunction status: with acute organ dysfunction Severe sepsis acute organ dysfunction type: acute renal failure Severe sepsis shock status: with septic shock
--- NOTE | 2019-10-15 12:34 | Nephrology Progress Note ---
Date of Service October 15, 2019 Assessment & Plan (1) Acute kidney injury: 73-year-old female with rheumatoid arthritis and hypertension admitted with sepsis due to LE cellulitis complicated by hypotension and PRINCESS. CT abd/plv reviewed. No evidence of obstruction noted. Baseline creatinine 1.2-1.4 mg/dL. PRINCESS consistent with prerenal causes and ATN in the setting of sepsis + hypotension requiring vasopressor support. Non- oliguric. I/O: + > 8 L. No emergent indication for dialysis. Dona has suggested she may refuse dialysis if indicated. Medications appropriately dosed for kidney function. Aldactone, furosemide, and losartan held. Remains on vancomycin and Zosyn. Check vancomycin level prior to next dose. 0.9% NaCl infusion stopped this AM. Dona remains on IV HCO3 infusion. Close monitoring of I/O's and volume status will be necessary. TBW is high though she is intravascularly dry. Keep feet elevated. Nutritional support provided for hypoalbuminemia. Hyperkalemia improved with SPS yesterday and management of metabolic acidosis. Diet appropriately adjusted for kidney dysfunction. DDx includes AIN (multiple recent abx for cellulitis), less likely vasculitis, immunoglobulin deposition / monoclonal process. SPEP/UPEP, and C3/C4 pending. UA/micro: 2+ protein, 1+ blood, 1+ LE, no nitrite; >30 WBC, 5-10 RBC, hyaline casts. This will be repeated after 24-48 hrs on abx therapy. Velásquez remains intact, placed on admission. Culture pending. Repeat renal panel tomorrow AM. (2) Hyperkalemia: (3) Metabolic acidosis: (4) Hypotension: (5) Lower extremity cellulitis: (6) Chronic anemia: Admission and Anticipated Discharge Date Admission Date: October 14, 2019 Subjective No acute events overnight. Dona was emotional but overall states that she feels like she is getting better. She has more strength today though she remains weak. She denies any pain. She is breathing comfortably. She denies any nausea. She is tolerating sips of fluid. She has not had fevers or chills. Velásquez is draining clear yellow urine. She is non-oliguric. Dona struggled to talk about dialysis. She stated that she would likely refuse dialysis if indicated but was not definitive at this time. She told me not to speak to any of her family (sister or brother). She does not want them to be updated at this time. She is trying to process the recent change in her health. Dona denies chest pain. She denies syncope or presyncope. Review of Systems Review of Systems: All systems reviewed & are unremarkable except as noted in HPI & below Physical Exam Constitutional: well developed, + obese and + frail appearing Eyes: + anicteric sclerae; no conjunctival abnormality ENMT: Mouth: + dry oral mucous membranes; no oral mucosal abnormality Neck: normal visual inspection and trachea midline Respiratory: normal respiratory effort Auscultation: lungs clear to auscultation bilaterally Cardiovascular: Rate/Rhythm: regular rate Heart Sounds: normal S1 and normal S2 Extremities: + edema Gastrointestinal (Abdomen): Percussion/Palpation: abdomen soft; abdomen nontender Musculoskeletal: Extremities: no cyanosis and no clubbing Skin: + turgor decreased; no rashes Neurologic: Motor/Sensory: no tremor and no asterixis Psychiatric: Orientation: alert and oriented x 3 Results & Data ([facility]) Vital Signs (Past 12 Hours) Vital Signs Temp Pulse Resp BP Pulse Ox 10/15/19 12:05 36.9 C 87 22 115/59 L 99 10/15/19 11:21 36.9 C 77 18 95/48 L 98 10/15/19 10:47 37.0 C 88 19 84/65 L 96 10/15/19 10:16 37.1 C 88 21 113/71 99 10/15/19 09:16 37.2 C 82 20 108/55 L 99 10/15/19 08:46 37.2 C 81 20 101/63 99 10/15/19 08:02 37.3 C 80 20 99/66 L 99 10/15/19 07:48 37.3 C 84 21 137/64 98 10/15/19 07:33 37.2 C 78 18 86/48 L 99 10/15/19 07:17 37.2 C 79 17 82/61 L 99 10/15/19 07:02 37.2 C 78 18 123/75 99 10/15/19 07:00 37.2 C 79 18 99 10/15/19 06:30 37.2 C 80 17 68/47 L 98 10/15/19 06:17 37.2 C 81 16 104/50 L 97 10/15/19 06:00 37.0 C 87 21 99 10/15/19 05:50 91 H 20 92/71 L 99 10/15/19 05:30 90 22 98 10/15/19 05:20 87 21 96/48 L 99 10/15/19 05:00 85 21 99 10/15/19 04:50 84 19 87/38 L 99 10/15/19 04:00 36.0 C L 83 21 100 10/15/19 03:49 83 23 98/54 L 99 10/15/19 03:19 81 19 99/69 L 100 10/15/19 03:00 82 17 99 10/15/19 02:49 81 17 98/54 L 98 10/15/19 02:21 85 20 109/92 99 10/15/19 02:00 84 19 100 10/15/19 01:49 84 18 100/63 99 10/15/19 01:19 81 20 101/68 99 10/15/19 01:00 85 20 97 10/15/19 00:49 85 23 91/54 L 99 Laboratory Results Laboratory Results - last 24 hr 10/14/19 10/14/19 10/14/19 11:00 13:43 13:43 WBC RBC Hgb Hct MCV MCH MCHC RDW Std Deviation RDW Coeff of Saadia Plt Count MPV Immature Gran % (Auto) Neut % (Auto) Lymph % (Auto) [place] % (Auto) Eos % (Auto) Baso % (Auto) Neut # (Auto) Lymph # (Auto) [place] # (Auto) Eos # (Auto) Baso # (Auto) Immature Gran # (Auto) Toxic Vacuolation Sodium Potassium Chloride Carbon Dioxide Anion Gap BUN Creatinine Est Cr Clr Drug Dosing Est GFR ( Amer) Est GFR (Non-Af Amer) BUN/Creatinine Ratio Glucose Lactate 1.0 Calcium Phosphorus Magnesium Total Bilirubin Direct Bilirubin AST ALT Alkaline Phosphatase Total Protein Total Protein (PEP) Pending Albumin Albumin (PEP) Pending Cgutd-5-Nzqswvwua Pending Dszrq-4-Lbzxheetn Pending Epdy-4-Bxzxylhz Pending Mfam-9-Ubbfuomd Pending Gamma Globulins Pending Monoclonal Peak 3 Pending Ser Monoclonl Protein Pending Ser Monoclonal Prot 2 Pending PEP Interpretation Pending Procalcitonin Random Cortisol 60.11 Urine Color Urine Appearance Urine pH Ur Specific [place] Urine Protein Urine Glucose (UA) Urine Ketones Urine Blood Urine Nitrite Urine Bilirubin Urine Urobilinogen Ur Leukocyte Esterase Urine WBC (Auto) Urine RBC (Auto) U Hyaline Cast (Auto) U Epithel Cells (Auto) Urine Bacteria (Auto) Ur Renal Epithelial Cell Urine Yeast U Random Total Protein Ur Creatinine mg/dL Protein/Creatinin Ratio Urine Albumin (%) U Bshdw-8-Fzdxihko (%) U Rlxsv-2-Favcrytl (%) U Beta Globulin (%) U Gamma Globulin (%) U Abnormal Prot Band 1 U Abnormal Prot Band 2 U Abnormal Prot Band 3 Urine PEP Interpret Nasal Screen MRSA (PCR) Random Vancomycin Complement C3 Pending Complement C4 Pending Free [place] LC, Quant Pending Free Lambda LC, Quant Pending Free [place]/Lambda Ratio Pending Hepatitis C Ab Screen 10/14/19 10/14/19 10/14/19 13:46 14:14 15:30 WBC RBC Hgb Hct MCV MCH MCHC RDW Std Deviation RDW Coeff of Saadia Plt Count MPV Immature Gran % (Auto) Neut % (Auto) Lymph % (Auto) [place] % (Auto) Eos % (Auto) Baso % (Auto) Neut # (Auto) Lymph # (Auto) [place] # (Auto) Eos # (Auto) Baso # (Auto) Immature Gran # (Auto) Toxic Vacuolation Sodium 137 Potassium 4.9 Chloride 113 H Carbon Dioxide 7 L* Anion Gap 16.0 H BUN 143 H Creatinine 6.69 H* D Est Cr Clr Drug Dosing Not Reportable Est GFR ( Amer) 6.5 Est GFR (Non-Af Amer) 5.6 BUN/Creatinine Ratio 21.5 H Glucose 249 H Lactate Calcium 7.4 L D Phosphorus Magnesium Total Bilirubin Direct Bilirubin AST ALT Alkaline Phosphatase Total Protein Total Protein (PEP) Albumin Albumin (PEP) Bwxkx-2-Evdbfswos Spquq-3-Fuqiefarr Wwhz-9-Ajggiaqq Gcev-8-Scuwwrhl Gamma Globulins Monoclonal Peak 3 Ser Monoclonl Protein Ser Monoclonal Prot 2 PEP Interpretation Procalcitonin Random Cortisol Urine Color Dark Yellow Urine Appearance Turbid A Urine pH 5.0 Ur Specific [place] 1.028 Urine Protein 2+ H Urine Glucose (UA) Negative Urine Ketones Trace H Urine Blood 1+ H Urine Nitrite Negative Urine Bilirubin Negative Urine Urobilinogen Negative Ur Leukocyte Esterase 1+ H Urine WBC (Auto) >30 H Urine RBC (Auto) 5-10 H U Hyaline Cast (Auto) 5-10 H U Epithel Cells (Auto) >30 H Urine Bacteria (Auto) Negative Ur Renal Epithelial Cell 5-10 H Urine Yeast Not Reportable U Random Total Protein Ur Creatinine mg/dL Protein/Creatinin Ratio Urine Albumin (%) U Urdpl-4-Qexxezzl (%) U Oepan-3-Dzkchgdl (%) U Beta Globulin (%) U Gamma Globulin (%) U Abnormal Prot Band 1 U Abnormal Prot Band 2 U Abnormal Prot Band 3 Urine PEP Interpret Nasal Screen MRSA (PCR) Negative Random Vancomycin Complement C3 Complement C4 Free [place] LC, Quant Free Lambda LC, Quant Free [place]/Lambda Ratio Hepatitis C Ab Screen 10/14/19 10/15/19 10/15/19 18:15 04:00 04:00 WBC 5.73 RBC 4.22 Hgb 10.5 L Hct 33.1 L MCV 78.4 L MCH 24.9 L MCHC 31.7 L RDW Std Deviation 46.9 H RDW Coeff of Saadia 16.4 H Plt Count 187 MPV 10.1 Immature Gran % (Auto) 1.4 Neut % (Auto) 93.7 Lymph % (Auto) 1.9 [place] % (Auto) 3.0 Eos % (Auto) 0.0 Baso % (Auto) 0.0 Neut # (Auto) 5.37 Lymph # (Auto) 0.11 L [place] # (Auto) 0.17 Eos # (Auto) 0.00 Baso # (Auto) 0.00 Immature Gran # (Auto) 0.08 H Toxic Vacuolation 2+ Sodium Potassium Chloride Carbon Dioxide Anion Gap BUN Creatinine Est Cr Clr Drug Dosing Est GFR ( Amer) Est GFR (Non-Af Amer) BUN/Creatinine Ratio Glucose Lactate Calcium Phosphorus Magnesium Total Bilirubin Direct Bilirubin AST ALT Alkaline Phosphatase Total Protein Total Protein (PEP) Albumin Albumin (PEP) Wubru-4-Mjqqokznt Rtxpt-7-Aahhywywu Opxb-9-Cupvfgeq Cdiy-3-Rxwzrcek Gamma Globulins Monoclonal Peak 3 Ser Monoclonl Protein Ser Monoclonal Prot 2 PEP Interpretation Procalcitonin Random Cortisol Urine Color Urine Appearance Urine pH Ur Specific [place] Urine Protein Urine Glucose (UA) Urine Ketones Urine Blood Urine Nitrite Urine Bilirubin Urine Urobilinogen Ur Leukocyte Esterase Urine WBC (Auto) Urine RBC (Auto) U Hyaline Cast (Auto) U Epithel Cells (Auto) Urine Bacteria (Auto) Ur Renal Epithelial Cell Urine Yeast U Random Total Protein Pending Ur Creatinine mg/dL Pending Protein/Creatinin Ratio Pending Urine Albumin (%) Pending U Kdukq-0-Pfuxaaup (%) Pending U Tukjw-7-Aoxqsimp (%) Pending U Beta Globulin (%) Pending U Gamma Globulin (%) Pending U Abnormal Prot Band 1 Pending U Abnormal Prot Band 2 Pending U Abnormal Prot Band 3 Pending Urine PEP Interpret Pending Nasal Screen MRSA (PCR) Random Vancomycin Complement C3 Complement C4 Free [place] LC, Quant Free Lambda LC, Quant Free [place]/Lambda Ratio Hepatitis C Ab Screen Neg 10/15/19 10/15/19 10/15/19 04:00 04:00 04:00 WBC RBC Hgb Hct MCV MCH MCHC RDW Std Deviation RDW Coeff of Saadia Plt Count MPV Immature Gran % (Auto) Neut % (Auto) Lymph % (Auto) [place] % (Auto) Eos % (Auto) Baso % (Auto) Neut # (Auto) Lymph # (Auto) [place] # (Auto) Eos # (Auto) Baso # (Auto) Immature Gran # (Auto) Toxic Vacuolation Sodium 138 Potassium 4.5 Chloride 109 H Carbon Dioxide 15 L Anion Gap 14.0 H BUN 145 H Creatinine 6.18 H* D Est Cr Clr Drug Dosing 10.0 Est GFR ( Amer) 7.2 Est GFR (Non-Af Amer) 6.2 BUN/Creatinine Ratio 23.4 H Glucose 147 H Lactate Calcium 7.7 L Phosphorus 7.3 H Magnesium 2.1 Total Bilirubin 0.4 Direct Bilirubin 0.2 AST 17 ALT 17 Alkaline Phosphatase 71 Total Protein 5.2 L Total Protein (PEP) Albumin 1.9 L Albumin (PEP) Ugajc-8-Ggvvdxskw Volud-3-Tyixbcldc Aqqj-4-Tjylwcux Temg-6-Dlxttnln Gamma Globulins Monoclonal Peak 3 Ser Monoclonl Protein Ser Monoclonal Prot 2 PEP Interpretation Procalcitonin 17.30 H Random Cortisol Urine Color Urine Appearance Urine pH Ur Specific [place] Urine Protein Urine Glucose (UA) Urine Ketones Urine Blood Urine Nitrite Urine Bilirubin Urine Urobilinogen Ur Leukocyte Esterase Urine WBC (Auto) Urine RBC (Auto) U Hyaline Cast (Auto) U Epithel Cells (Auto) Urine Bacteria (Auto) Ur Renal Epithelial Cell Urine Yeast U Random Total Protein Ur Creatinine mg/dL Protein/Creatinin Ratio Urine Albumin (%) U Doupw-2-Ukicoapg (%) U Ruuya-0-Mylgxbsb (%) U Beta Globulin (%) U Gamma Globulin (%) U Abnormal Prot Band 1 U Abnormal Prot Band 2 U Abnormal Prot Band 3 Urine PEP Interpret Nasal Screen MRSA (PCR) Random Vancomycin 20.8 Complement C3 Complement C4 Free [place] LC, Quant Free Lambda LC, Quant Free [place]/Lambda Ratio Hepatitis C Ab Screen PG Care Time/CCT Total # of Minutes Spent Total Time Spent with Patient: Total time spent is greater than 50% in coordination of care (as documented) at patient's floor/unit and/or counseling patient: Coding Level of Care Code 32047 Subseq Hosp Care Lvl 3 Diagnoses Acute kidney injury N17.9 Hyperkalemia E87.5 Metabolic acidosis E87.2 Hypotension I95.9 Lower extremity cellulitis L03.119 Chronic anemia D64.9
[2019-10-15] MEDS ORDERED: VANCOMYCIN HCL 1,250 MG in SODIUM CHLORIDE 0.9% 250 ML IV SCH (14:00)
[2019-10-15] MEDS: fentaNYL citrate 100 MCG/2 ML VIAL IV PRN (14:07)
--- NOTE | 2019-10-15 14:16 | Pharmacy Report ---
Pharmacy Abx Dose Short Note - Date of Service October 15, 2019 - Assessment & Plan Laboratory Tests 10/15/19 04:00 Random Vancomycin 20.8 Assessment 73 year old F receiving Vancomycin and Zosyn for treatment of Lower extremity cellulitis and sepsis Blood culture x1 growing GNB Day #2 of antimicrobial therapy. Plan Vancomycin * Random Vanc level was 20.8 mcg/mL at 0400 this morning. Redosed with 1250mg at 1400 * Patient's calculated half-life is closer to 24 hours * Goal trough level for Cellulitis: ~15 mcg/mL * Random level ordered for: 10/16/19 with AM labs Pharmacy will continue to follow and will adjust dose/frequency as necessary. Thank you.
--- NOTE | 2019-10-15 14:23 | Hospitalist Progress Note ---
Date of Service October 15, 2019 Assessment & Plan (1) Septic shock: requiring Levophed for MAP > 65 likely source is urine, although no growth on culture at this point one of two blood cultures with gram negative bacilli another possible source is bilateral cellulitis ICU managing septic shock - central line, pressors WBC is normal (2) Sepsis: see above presenting with hypotension, PRINCESS continue Zosyn and Vancomycin WBC normal (3) Lower extremity cellulitis: Failed multiple trials of outpt tx including clinda, doxy, keflex continue vanco/zosyn skin is very erythematous, warm, weaping (4) Hyperkalemia: Insulin, bicarb, nebs in the ED resolved, K is 4.5 today (5) Acute kidney injury: Baseline cr 1.3 Cr 7.9 on admission responding to IV fluid boluses and pressor support non-oliguric Cr down slightly to 6 today, Phos elevated HCO3 down at 14 nephrology following, no emergent needs for HD today patient says she would likely refuse any HD even if it would be recommended short term (6) HTN (hypertension): Holding home meds for hypoTN (7) Hyperlipidemia: Holding statin (8) Rheumatoid arthritis: Baseline prednisone use 7.5mg QD Stress dose steroids ordered (9) DVT prophylaxis: Heparin for DVT proph Pt is uncertain if she wants cardiac resuscitation, but clearly states no intubation. Advised she will be listed for full cardiac tx given her uncertainty and to alert someone if she changes her mind about any part of code status. Asked about family to call and she states that she has a brother only and "I don't want to bother anyone". Admission and Anticipated Discharge Date Admission Date: October 14, 2019 Subjective patient says she is feeling better today she denies any pain she says she is breathing comfortably I discussed elevated Cr, felt that there was no immediate need for HD but asked if she would be open to it if needed she said she would not want HD appreciate recommendations from Dr. Andrews talked with Dr. Ying, he plans to place central venous access today still on Levophed, actually up on dose from last night WBC is 5k, Hb 10, platelets 187 K is down to 4.5, CO2 15, BUN 145 and Cr 6.18 one set of blood cultures growing gram negative bacilli Review of Systems Review of Systems: All systems reviewed & are unremarkable except as noted in HPI & below Constitutional: + fatigue and + weakness; no fever Respiratory: no cough and no dyspnea Cardiovascular: no chest pain and no edema Gastrointestinal: no abdominal pain, no nausea, no vomiting, no constipation and no diarrhea/loose stools Physical Exam Constitutional: well developed, + lethargic and + overweight; no acute distress Eyes: PERRL, conjunctivae normal, anicteric sclerae ENMT: external ear and nose normal, oropharynx normal Neck: trachea midline, no thyromegaly Respiratory: normal respiratory effort, lungs clear to auscultation Cardiovascular: RRR, no murmur, no edema Gastrointestinal (Abdomen): normal bowel sounds, soft, nontender, no hepatosplenomegaly Musculoskeletal: no cyanosis or clubbing, extremities motor strength 5/5 Skin: + rash and + erythema (bilateral lower legs, weaping in places, wrapped, tender) Neurologic: patellar DTR's 2+ bilat, sensation intact and PERRL, EOMI, accommodation nl, no face palsy, no dysarthria Psychiatric: A+Ox3, euthymic affect Lymphatic: no cervical or axillary lymphadenopathy Results & Data Results & Data ([facility]) Vital Signs (Past 12 Hours) Vital Signs Temp Pulse Resp BP Pulse Ox 10/15/19 12:05 36.9 C 87 22 115/59 L 99 10/15/19 11:21 36.9 C 77 18 95/48 L 98 10/15/19 10:47 37.0 C 88 19 84/65 L 96 10/15/19 10:16 37.1 C 88 21 113/71 99 10/15/19 09:16 37.2 C 82 20 108/55 L 99 10/15/19 08:46 37.2 C 81 20 101/63 99 10/15/19 08:02 37.3 C 80 20 99/66 L 99 10/15/19 07:48 37.3 C 84 21 137/64 98 10/15/19 07:33 37.2 C 78 18 86/48 L 99 10/15/19 07:17 37.2 C 79 17 82/61 L 99 10/15/19 07:02 37.2 C 78 18 123/75 99 10/15/19 07:00 37.2 C 79 18 99 10/15/19 06:30 37.2 C 80 17 68/47 L 98 10/15/19 06:17 37.2 C 81 16 104/50 L 97 10/15/19 06:00 37.0 C 87 21 99 10/15/19 05:50 91 H 20 92/71 L 99 10/15/19 05:30 90 22 98 10/15/19 05:20 87 21 96/48 L 99 10/15/19 05:00 85 21 99 10/15/19 04:50 84 19 87/38 L 99 10/15/19 04:00 36.0 C L 83 21 100 10/15/19 03:49 83 23 98/54 L 99 10/15/19 03:19 81 19 99/69 L 100 10/15/19 03:00 82 17 99 10/15/19 02:49 81 17 98/54 L 98 10/15/19 02:21 85 20 109/92 99 Laboratory Results Laboratory Results - last 24 hr 10/14/19 10/14/19 10/14/19 13:46 14:14 15:30 WBC RBC Hgb Hct MCV MCH MCHC RDW Std Deviation RDW Coeff of Saadia Plt Count MPV Immature Gran % (Auto) Neut % (Auto) Lymph % (Auto) [place] % (Auto) Eos % (Auto) Baso % (Auto) Neut # (Auto) Lymph # (Auto) [place] # (Auto) Eos # (Auto) Baso # (Auto) Immature Gran # (Auto) Toxic Vacuolation Sodium 137 Potassium 4.9 Chloride 113 H Carbon Dioxide 7 L* Anion Gap 16.0 H BUN 143 H Creatinine 6.69 H* D Est Cr Clr Drug Dosing Not Reportable Est GFR ( Amer) 6.5 Est GFR (Non-Af Amer) 5.6 BUN/Creatinine Ratio 21.5 H Glucose 249 H Calcium 7.4 L D Phosphorus Magnesium Total Bilirubin Direct Bilirubin AST ALT Alkaline Phosphatase Total Protein Albumin Procalcitonin Urine Color Dark Yellow Urine Appearance Turbid A Urine pH 5.0 Ur Specific [place] 1.028 Urine Protein 2+ H Urine Glucose (UA) Negative Urine Ketones Trace H Urine Blood 1+ H Urine Nitrite Negative Urine Bilirubin Negative Urine Urobilinogen Negative Ur Leukocyte Esterase 1+ H Urine WBC (Auto) >30 H Urine RBC (Auto) 5-10 H U Hyaline Cast (Auto) 5-10 H U Epithel Cells (Auto) >30 H Urine Bacteria (Auto) Negative Ur Renal Epithelial Cell 5-10 H Urine Yeast Not Reportable U Random Total Protein Ur Creatinine mg/dL Protein/Creatinin Ratio Urine Albumin (%) U Hslna-3-Otildwzr (%) U Vrzcu-6-Wxjtkwrp (%) U Beta Globulin (%) U Gamma Globulin (%) U Abnormal Prot Band 1 U Abnormal Prot Band 2 U Abnormal Prot Band 3 Urine PEP Interpret Nasal Screen MRSA (PCR) Negative Random Vancomycin Hepatitis C Ab Screen 10/14/19 10/15/19 10/15/19 18:15 04:00 04:00 WBC 5.73 RBC 4.22 Hgb 10.5 L Hct 33.1 L MCV 78.4 L MCH 24.9 L MCHC 31.7 L RDW Std Deviation 46.9 H RDW Coeff of Saadia 16.4 H Plt Count 187 MPV 10.1 Immature Gran % (Auto) 1.4 Neut % (Auto) 93.7 Lymph % (Auto) 1.9 [place] % (Auto) 3.0 Eos % (Auto) 0.0 Baso % (Auto) 0.0 Neut # (Auto) 5.37 Lymph # (Auto) 0.11 L [place] # (Auto) 0.17 Eos # (Auto) 0.00 Baso # (Auto) 0.00 Immature Gran # (Auto) 0.08 H Toxic Vacuolation 2+ Sodium Potassium Chloride Carbon Dioxide Anion Gap BUN Creatinine Est Cr Clr Drug Dosing Est GFR ( Amer) Est GFR (Non-Af Amer) BUN/Creatinine Ratio Glucose Calcium Phosphorus Magnesium Total Bilirubin Direct Bilirubin AST ALT Alkaline Phosphatase Total Protein Albumin Procalcitonin Urine Color Urine Appearance Urine pH Ur Specific [place] Urine Protein Urine Glucose (UA) Urine Ketones Urine Blood Urine Nitrite Urine Bilirubin Urine Urobilinogen Ur Leukocyte Esterase Urine WBC (Auto) Urine RBC (Auto) U Hyaline Cast (Auto) U Epithel Cells (Auto) Urine Bacteria (Auto) Ur Renal Epithelial Cell Urine Yeast U Random Total Protein Pending Ur Creatinine mg/dL Pending Protein/Creatinin Ratio Pending Urine Albumin (%) Pending U Dpemb-5-Khttlioa (%) Pending U Xbbrh-4-Axqeazjg (%) Pending U Beta Globulin (%) Pending U Gamma Globulin (%) Pending U Abnormal Prot Band 1 Pending U Abnormal Prot Band 2 Pending U Abnormal Prot Band 3 Pending Urine PEP Interpret Pending Nasal Screen MRSA (PCR) Random Vancomycin Hepatitis C Ab Screen Neg 10/15/19 10/15/19 10/15/19 04:00 04:00 04:00 WBC RBC Hgb Hct MCV MCH MCHC RDW Std Deviation RDW Coeff of Saadia Plt Count MPV Immature Gran % (Auto) Neut % (Auto) Lymph % (Auto) [place] % (Auto) Eos % (Auto) Baso % (Auto) Neut # (Auto) Lymph # (Auto) [place] # (Auto) Eos # (Auto) Baso # (Auto) Immature Gran # (Auto) Toxic Vacuolation Sodium 138 Potassium 4.5 Chloride 109 H Carbon Dioxide 15 L Anion Gap 14.0 H BUN 145 H Creatinine 6.18 H* D Est Cr Clr Drug Dosing 10.0 Est GFR ( Amer) 7.2 Est GFR (Non-Af Amer) 6.2 BUN/Creatinine Ratio 23.4 H Glucose 147 H Calcium 7.7 L Phosphorus 7.3 H Magnesium 2.1 Total Bilirubin 0.4 Direct Bilirubin 0.2 AST 17 ALT 17 Alkaline Phosphatase 71 Total Protein 5.2 L Albumin 1.9 L Procalcitonin 17.30 H Urine Color Urine Appearance Urine pH Ur Specific [place] Urine Protein Urine Glucose (UA) Urine Ketones Urine Blood Urine Nitrite Urine Bilirubin Urine Urobilinogen Ur Leukocyte Esterase Urine WBC (Auto) Urine RBC (Auto) U Hyaline Cast (Auto) U Epithel Cells (Auto) Urine Bacteria (Auto) Ur Renal Epithelial Cell Urine Yeast U Random Total Protein Ur Creatinine mg/dL Protein/Creatinin Ratio Urine Albumin (%) U Mnhvd-3-Qzgpkbcx (%) U Kneye-2-Jegwhwpn (%) U Beta Globulin (%) U Gamma Globulin (%) U Abnormal Prot Band 1 U Abnormal Prot Band 2 U Abnormal Prot Band 3 Urine PEP Interpret Nasal Screen MRSA (PCR) Random Vancomycin 20.8 Hepatitis C Ab Screen Medications Administered Current Inpatient Medications Fentanyl Citrate (Fentanyl Citrate) 50 mcg IV Q2H PRN PRN Reason: Moderate Pain (4,5,6) Stop: 10/29/19 12:48 Last Admin: 10/15/19 14:07 Dose: 50 mcg Documented by: Heparin Sodium (Porcine) (Heparin Sodium (Porcine)) 5,000 units SQ Q8 [facility] Stop: 11/13/19 15:59 Last Admin: 10/15/19 14:07 Dose: 5,000 units Documented by: Hydroxychloroquine Sulfate (Plaquenil) 400 mg PO HS [facility] Stop: 11/13/19 20:59 Last Admin: 10/14/19 21:44 Dose: 400 mg Documented by: Sodium Bicarbonate 150 meq/ (Dextrose) 1,150 mls @ 150 mls/hr IV .Q7H40M [facility] Stop: 11/13/19 11:59 Last Admin: 10/15/19 12:05 Dose: 150 mls/hr Documented by: Norepinephrine Bitartrate 8 mg (/ Dextrose) 508 mls @ 50.932 mls/hr IV .Q9H59M [facility]; Protocol Stop: 11/13/19 12:59 Last Titration: 10/15/19 14:28 Dose: 0.08 mcg/kg/min, 34 mls/hr Documented by: Piperacillin Sod/Tazobactam (Sod 4.5 gm/ Dextrose) 120 mls @ 28.75 mls/hr IV Q12H [facility]; Protocol Stop: 10/21/19 19:59 Last Infusion: 10/15/19 12:06 Dose: Infused Documented by: Hydrocortisone Sodium (Succinate 50 mg/ Syringe) 1 mls @ 4 mls/min IV Q6H [facility] Stop: 11/13/19 17:59 Last Admin: 10/15/19 12:06 Dose: 4 mls/min Documented by: Vancomycin HCl 1,250 mg/ (Sodium Chloride) 275 mls @ 125 mls/hr IV TODAY@1400 [facility] Stop: 10/15/19 16:11 Last Admin: 10/15/19 14:07 Dose: 125 mls/hr Documented by: Magnesium Hydroxide (Milk Of Magnesia) 30 ml PO Q6H PRN PRN Reason: Constipation Stop: 11/13/19 15:26 Miscellaneous (I[facility] Protocol For Hyperglycemia) 1 ea N/A PRN PRN; Protocol PRN Reason: Hyperglycemia Protocol Stop: 10/16/19 15:26 Miscellaneous Information (Consult) 1 ea N/A UD PRN PRN Reason: Consult Stop: 11/13/19 15:26 Miscellaneous Information (Consult) 1 ea N/A UD PRN PRN Reason: Consult Stop: 11/13/19 15:26 Pantoprazole Sodium (Protonix) 40 mg PO QAM [facility] Stop: 11/14/19 08:59 Last Admin: 10/15/19 07:43 Dose: Not Given Documented by: PG Care Time/CCT Total # of Minutes Spent Total Time Spent with Patient: Total time spent is greater than 50% in coordination of care (as documented) at patient's floor/unit and/or counseling patient: Coding Level of Care Code 92554 Subseq Hosp Care Lvl 3 Diagnoses Septic shock A41.9; R65.21 Sepsis A41.9 Sepsis acute organ dysfunction status: with acute organ dysfunction Severe sepsis acute organ dysfunction type: acute renal failure Acute renal failure type: unspecified Severe sepsis shock status: with septic shock Lower extremity cellulitis L03.119 Hyperkalemia E87.5 Acute kidney injury N17.9 HTN (hypertension) I10 Hyperlipidemia E78.5 Rheumatoid arthritis M06.9 DVT prophylaxis Z29.9 (1) Sepsis Sepsis acute organ dysfunction status: with acute organ dysfunction Severe sepsis acute organ dysfunction type: acute renal failure Acute renal failure type: unspecified Severe sepsis shock status: with septic shock
[2019-10-15 18:00] LABS: Albumin Level 1.6 gm/dl (3.4-5.0); BUN Creatinine Ratio 24.1 (10-20); Calcium 6.7 mg/dl (8.5-10.1); Creatinine Clr Calc Pharmacy 12.4 ml/min; Est GFR (African American) 9.1; Est GFR (Non-African American) 7.9; Phosphorus 5.9 mg/dl (2.5-4.9); Potassium 3.9 mmol/L (3.5-5.1)
[2019-10-15] MEDS: HYDROXYCHLOROQUINE SULFATE 200 MG TAB PO SCH (20:53)
[2019-10-16] MEDS: SODIUM BICARBONATE 8.4% 150 MEQ in DEXTROSE 5% 1,000 ML IV SCH (02:25)
[2019-10-16 04:53] LABS: Hematocrit (blood only) 28.4 % (37-47); Hemoglobin 9.8 g/dL (12.0-16.0); Mean Corpuscular Hemoglobin 25.9 pg (25-34); Mean Corpuscular Hgb Conc 34.5 g/dL (32-36); Mean Corpuscular Volume 75.1 fL (80-100); Mean Platelet Volume 9.5 fL (7.4-10.4); Platelet Count 138 K/uL (130-400); RDW Coefficient of Variation 16.2 % (11.5-14.5); RDW Standard Deviation 44.5 fL (36.4-46.3); Red Blood Count 3.78 M/uL (4.2-5.4); White Blood Count 13.37 K/uL (4.8-10.8)
[2019-10-16 05:18] LABS: Immature Granulocytes # (auto) 0.11 K/uL (0.00-0.02); Immature Granulocytes % (auto) 0.8 %; Lymphocytes # (auto) 0.23 K/uL (1.2-3.4); Lymphocytes % (auto) 1.7 %; Monocytes # (auto) 0.39 K/uL (0.11-0.59); Monocytes % (auto) 2.9 %; Neutrophils # (auto) 12.64 K/uL (1.4-6.5); Neutrophils % (auto) 94.6 %
[2019-10-16] MEDS: HYDROCORTISONE SOD 50 MG in SYRINGE 0 ML IV SCH ×4 (05:26→23:32)
[2019-10-16] MEDS: HEPARIN SOD 5,000 UNIT/0.5 ML VIAL SQ SCH ×3 (05:27→21:16)
[2019-10-16 05:30] LABS: Albumin Level 1.6 gm/dl (3.4-5.0); BUN Creatinine Ratio 26.2 (10-20); Bilirubin Direct 0.1 mg/dl (0-0.2); Bilirubin,Total 0.3 mg/dl (0.2-1); Calcium 6.9 mg/dl (8.5-10.1); Creatinine Clr Calc Pharmacy 13.6 ml/min; Est GFR (African American) 10.2; Est GFR (Non-African American) 8.8; Magnesium 1.8 mg/dl (1.8-2.4); Phosphorus 5.6 mg/dl (2.5-4.9); Potassium 3.5 mmol/L (3.5-5.1); Total Protein 4.7 gm/dl (6.4-8.2)
[2019-10-16 05:44] LABS: Toxic Granulation 1+
[2019-10-16] MEDS: NOREPINEPHRINE BIT INJ 8 MG in DEXTROSE 5% 500 ML IV SCH ×3 (06:26→14:32)
[2019-10-16] MEDS: PIPERACILLIN/TAZOBACTAM 4.5 GM in DEXTROSE 5% 100 ML IV SCH (08:13)
[2019-10-16] MEDS: fentaNYL citrate 100 MCG/2 ML VIAL IV PRN ×2 (08:14→21:15)
[2019-10-16] MEDS: PANTOprazole 40 MG TAB PO SCH (08:15)
--- NOTE | 2019-10-16 08:45 | Hospitalist Progress Note ---
Date of Service October 16, 2019 Assessment & Plan (1) Septic shock: requiring Levophed for MAP > 65, down to 0.08mcg of Levophed today, try to titrate off if possible blood culture with Serratia, one set urine culture is re-incubating source is urine vs bilateral cellulitis no fever, WBC up slightly but procalcitonin down to 8 from 17 (2) Sepsis: see above presenting with hypotension, PRINCESS (improving) continue Zosyn and Vancomycin WBC up slightly, procalcitonin going down appropriately (3) Lower extremity cellulitis: Failed multiple trials of outpt tx including clinda, doxy, keflex continue vanco/zosyn skin is very erythematous, warm, weeping she saw Dr. Calzada in the office, will try to reach out to him tomorrow to get his impression on skin when he saw her Thursday (4) Hyperkalemia: resolved after insulin, bicarb in the ED stable with improved renal function (5) Acute kidney injury: Baseline cr 1.3 Cr 7.9 on admission responding to IV fluid boluses and pressor support non-oliguric, clear urine in rick bag Cr down slightly to 4.6 today, BUN down to 120, overall improving nicely HCO3 is now normal at 25, will defer furthe replacement to nephrology nephrology following, no emergent needs for HD today patient says she would likely refuse any HD even if it would be recommended short term (6) HTN (hypertension): Holding home meds for hypoTN (7) Hyperlipidemia: Holding statin (8) Rheumatoid arthritis: Baseline prednisone use 7.5mg QD Stress dose steroids ordered (9) DVT prophylaxis: Heparin for DVT proph Pt is uncertain if she wants cardiac resuscitation, but clearly states no intubation. Advised she will be listed for full cardiac tx given her uncertainty and to alert someone if she changes her mind about any part of code status. Asked about family to call and she states that she has a brother only and "I don't want to bother anyone". Admission and Anticipated Discharge Date Admission Date: October 14, 2019 Subjective patient doing better overall, she ate some breakfast and had a small amount of emesis, first time this happened she has some pain in her legs with the cellulitis no chest pain, no dyspnea, no cough, no fever/chills, no abdominal pain reviewed labs, one set of blood cultures growing Serratia, [place] sensitive, no growth on urine cultures yet WBC is 13k, procalcitonin going down to 8 from 17 Cr improved to 4.6 from 6, BUN down to 120 from 140, electrolytes stable discussed with RN, down to 0.08mcg of Levophed, improved from yesterday discussed with Dr Andrews and Dr. Ying Review of Systems Review of Systems: All systems reviewed & are unremarkable except as noted in HPI & below Constitutional: + fatigue and + weakness; no fever, no chills and no sweats Respiratory: no cough and no dyspnea Cardiovascular: no chest pain and no edema Gastrointestinal: + nausea and + vomiting; no abdominal pain, no constipation and no diarrhea/loose stools Physical Exam Constitutional: well developed, + lethargic and + overweight; no acute distress Eyes: PERRL, conjunctivae normal, anicteric sclerae ENMT: external ear and nose normal, oropharynx normal Neck: trachea midline, no thyromegaly Respiratory: normal respiratory effort, lungs clear to auscultation Cardiovascular: RRR, no murmur, no edema Gastrointestinal (Abdomen): normal bowel sounds, soft, nontender, no hepatosplenomegaly Musculoskeletal: no cyanosis or clubbing, extremities motor strength 5/5 Skin: + rash and + erythema (bilateral lower legs, weaping in places, wrapped, tender) Neurologic: patellar DTR's 2+ bilat, sensation intact and PERRL, EOMI, accommodation nl, no face palsy, no dysarthria Psychiatric: A+Ox3, euthymic affect Lymphatic: no cervical or axillary lymphadenopathy Results & Data Results & Data ([facility]) Vital Signs (Past 12 Hours) Vital Signs Temp Pulse Resp BP Pulse Ox 10/16/19 08:05 37.0 C 86 16 85/60 L 96 10/16/19 07:35 102 H 21 74/55 L 96 10/16/19 07:04 88 17 108/61 95 10/16/19 06:04 94 H 16 133/65 96 10/16/19 06:00 96 H 14 96 10/16/19 05:34 102 H 19 118/65 96 10/16/19 05:04 95 H 24 118/63 97 10/16/19 04:34 95 H 19 115/63 95 10/16/19 04:04 98 H 15 120/60 97 10/16/19 04:00 36.8 C 93 H 15 96 10/16/19 03:34 95 H 21 116/53 L 98 10/16/19 03:04 87 27 H 93/59 L 97 10/16/19 02:35 101 H 19 103/54 L 97 10/16/19 02:04 114 H 16 91/61 L 97 10/16/19 02:00 109 H 16 94 10/16/19 01:34 94 H 18 109/60 96 10/16/19 01:04 90 19 119/47 L 97 10/16/19 00:34 92 H 20 93/66 L 97 10/16/19 00:05 84 15 106/45 L 98 10/16/19 00:00 36.8 C 86 19 97 10/15/19 23:59 88 10/15/19 23:34 93 H 18 106/52 L 97 10/15/19 23:04 89 20 95/45 L 96 10/15/19 22:34 89 18 96/53 L 96 10/15/19 22:06 90 21 97 10/15/19 22:05 88 21 105/50 L 98 10/15/19 22:00 36.6 C 91 H 21 98 10/15/19 21:34 87 22 100/68 98 10/15/19 21:07 88 20 129/92 98 10/15/19 20:44 94 H 19 79/56 L 98 Laboratory Results Laboratory Results - last 24 hr 10/15/19 10/15/19 10/15/19 04:00 16:34 17:18 WBC RBC Hgb Hct MCV MCH MCHC RDW Std Deviation RDW Coeff of Saadia Plt Count MPV Immature Gran % (Auto) Neut % (Auto) Lymph % (Auto) [place] % (Auto) Eos % (Auto) Baso % (Auto) Neut # (Auto) Lymph # (Auto) [place] # (Auto) Eos # (Auto) Baso # (Auto) Immature Gran # (Auto) Toxic Granulation Sodium 134 L Potassium 3.9 Chloride 101 Carbon Dioxide 20 L Anion Gap 13.0 H BUN 122 H Creatinine 5.05 H* D Est Cr Clr Drug Dosing 12.4 Est GFR ( Amer) 9.1 Est GFR (Non-Af Amer) 7.9 BUN/Creatinine Ratio 24.1 H Glucose 259 H POC Glucose 168 H Calcium 6.7 L Phosphorus 5.9 H Magnesium Total Bilirubin Direct Bilirubin AST ALT Alkaline Phosphatase Total Protein Albumin 1.6 L Procalcitonin Random Vancomycin Hepatitis C Ab Screen Neg 10/16/19 10/16/19 10/16/19 04:42 04:42 04:42 WBC 13.37 H RBC 3.78 L Hgb 9.8 L Hct 28.4 L MCV 75.1 L MCH 25.9 MCHC 34.5 RDW Std Deviation 44.5 RDW Coeff of Saadia 16.2 H Plt Count 138 MPV 9.5 Immature Gran % (Auto) 0.8 Neut % (Auto) 94.6 Lymph % (Auto) 1.7 [place] % (Auto) 2.9 Eos % (Auto) 0.0 Baso % (Auto) 0.0 Neut # (Auto) 12.64 H Lymph # (Auto) 0.23 L [place] # (Auto) 0.39 Eos # (Auto) 0.00 Baso # (Auto) 0.00 Immature Gran # (Auto) 0.11 H Toxic Granulation 1+ Sodium 137 Potassium 3.5 Chloride 101 Carbon Dioxide 25 Anion Gap 11.0 BUN 120 H Creatinine 4.60 H* D Est Cr Clr Drug Dosing 13.6 Est GFR ( Amer) 10.2 Est GFR (Non-Af Amer) 8.8 BUN/Creatinine Ratio 26.2 H Glucose 139 H POC Glucose Calcium 6.9 L Phosphorus 5.6 H Magnesium 1.8 Total Bilirubin 0.3 Direct Bilirubin 0.1 AST 15 ALT 19 Alkaline Phosphatase 82 Total Protein 4.7 L Albumin 1.6 L Procalcitonin Random Vancomycin 25.9 Hepatitis C Ab Screen 10/16/19 04:42 WBC RBC Hgb Hct MCV MCH MCHC RDW Std Deviation RDW Coeff of Saadia Plt Count MPV Immature Gran % (Auto) Neut % (Auto) Lymph % (Auto) [place] % (Auto) Eos % (Auto) Baso % (Auto) Neut # (Auto) Lymph # (Auto) [place] # (Auto) Eos # (Auto) Baso # (Auto) Immature Gran # (Auto) Toxic Granulation Sodium Potassium Chloride Carbon Dioxide Anion Gap BUN Creatinine Est Cr Clr Drug Dosing Est GFR ( Amer) Est GFR (Non-Af Amer) BUN/Creatinine Ratio Glucose POC Glucose Calcium Phosphorus Magnesium Total Bilirubin Direct Bilirubin AST ALT Alkaline Phosphatase Total Protein Albumin Procalcitonin 8.62 H Random Vancomycin Hepatitis C Ab Screen Microbiology 10/14/19 11:06 Blood Aerobic Blood Culture - Final Serratia marcescens 10/14/19 11:06 Blood Anaerobic Blood Culture - Final Serratia marcescens 10/14/19 13:40 Blood Aerobic Blood Culture - Preliminary No growth in Aerobic bottle after 24 hours. 10/14/19 13:40 Blood Anaerobic Blood Culture - Preliminary No growth in Anaerobic bottle after 24 hours. 10/14/19 14:14 Urine,Clean Catch Urine Culture - Preliminary Pin-point growth present, reincubating. Medications Administered Current Inpatient Medications Fentanyl Citrate (Fentanyl Citrate) 50 mcg IV Q2H PRN PRN Reason: Moderate Pain (4,5,6) Stop: 10/29/19 12:48 Last Admin: 10/16/19 08:14 Dose: 50 mcg Documented by: Heparin Sodium (Beef Lung) (Heparin Sod 10 Unit/Ml Flush) 5 ml FLUSH PRN PRN PRN Reason: Flush Stop: 11/15/19 02:23 Heparin Sodium (Porcine) (Heparin Sodium (Porcine)) 5,000 units SQ Q8 [facility] Stop: 11/13/19 15:59 Last Admin: 10/16/19 05:27 Dose: 5,000 units Documented by: Hydroxychloroquine Sulfate (Plaquenil) 400 mg PO HS [facility] Stop: 11/13/19 20:59 Last Admin: 10/15/19 20:53 Dose: 400 mg Documented by: Sodium Bicarbonate 150 meq/ (Dextrose) 1,150 mls @ 150 mls/hr IV .Q7H40M [facility] Stop: 11/13/19 11:59 Last Admin: 10/16/19 02:25 Dose: 150 mls/hr Documented by: Norepinephrine Bitartrate 8 mg (/ Dextrose) 508 mls @ 38.199 mls/hr IV .[id number] [facility]; Protocol Stop: 11/13/19 12:59 Last Titration: 10/16/19 08:15 Dose: 0.08 mcg/kg/min, 34 mls/hr Documented by: Piperacillin Sod/Tazobactam (Sod 4.5 gm/ Dextrose) 120 mls @ 28.75 mls/hr IV Q12H [facility]; Protocol Stop: 10/21/19 19:59 Last Admin: 10/16/19 08:13 Dose: 28.8 mls/hr Documented by: Hydrocortisone Sodium (Succinate 50 mg/ Syringe) 1 mls @ 4 mls/min IV Q6H [facility] Stop: 11/13/19 17:59 Last Admin: 10/16/19 05:26 Dose: 4 mls/min Documented by: Magnesium Hydroxide (Milk Of Magnesia) 30 ml PO Q6H PRN PRN Reason: Constipation Stop: 11/13/19 15:26 Miscellaneous ([facility] Protocol For Hyperglycemia) 1 ea N/A PRN PRN; Protocol PRN Reason: Hyperglycemia Protocol Stop: 10/16/19 15:26 Miscellaneous Information (Consult) 1 ea N/A UD PRN PRN Reason: Consult Stop: 11/13/19 15:26 Miscellaneous Information (Consult) 1 ea N/A UD PRN PRN Reason: Consult Stop: 11/13/19 15:26 Pantoprazole Sodium (Protonix) 40 mg PO QAM [facility] Stop: 11/14/19 08:59 Last Admin: 10/16/19 08:15 Dose: 40 mg Documented by: PG Care Time/CCT Total # of Minutes Spent Total Time Spent with Patient: Total time spent is greater than 50% in coordination of care (as documented) at patient's floor/unit and/or counseling patient: Coding Level of Care Code 39619 Subseq Hosp Care Lvl 3 Diagnoses Septic shock A41.9; R65.21 Sepsis A41.9 Sepsis acute organ dysfunction status: with acute organ dysfunction Severe sepsis acute organ dysfunction type: acute renal failure Acute renal failure type: unspecified Severe sepsis shock status: with septic shock Lower extremity cellulitis L03.119 Hyperkalemia E87.5 Acute kidney injury N17.9 HTN (hypertension) I10 Hyperlipidemia E78.5 Rheumatoid arthritis M06.9 DVT prophylaxis Z29.9 (1) Sepsis Sepsis acute organ dysfunction status: with acute organ dysfunction Severe sepsis acute organ dysfunction type: acute renal failure Acute renal failure type: unspecified Severe sepsis shock status: with septic shock
[2019-10-16] MEDS: cefTRIAXone SODIUM 2,000 MG in DEXTROSE 5% 50 ML IV SCH (11:11)
--- NOTE | 2019-10-16 11:37 | Critical Care Progress Note ---
Date of Service October 16, 2019 Assessment & Plan (1) Sepsis: Reason Critically Ill: 73-year-old female with sepsis and septic shock PLAN: Neuro: Acute encephalopathy: Improved CV: Hypotension -Improved with vasoactive medication: Decreasing medication requirements -Still requiring vasoactive medication Fluids/Renal: Acute kidney injury hyperkalemia: Resolved High gap metabolic acidosis: Resolved -Discontinued bicarbonate infusion Lactic acidosis: Resolved ID: Discontinuing vancomycin De-escalation to ceftriaxone -Repeat blood cultures tomorrow morning -Urinary culture demonstrating 3 types of organisms no iden tification or sensitivity to follow GI/Nutrition: Low potassium diet Protein calorie malnutrition -Megace daily Heme: Anemia: At baseline DVT prophylaxis: Heparin twice daily Endocrine: ICU hyperglycemia protocol Vascular access: PICC -Patient does not desire dialysis at this time, preferred pack for less acute risk versus central venous access Code Status: Conditional code Disposition: ICU while requiring vasoactive medications (2) Lower extremity cellulitis: (3) Hypotension: (4) Metabolic acidosis: (5) Hyperkalemia: (6) Acute kidney injury: (7) Stasis dermatitis of both legs: Admission and Anticipated Discharge Date Admission Date: October 14, 2019 Subjective No overnight events. No significant complaints, mild pain in bilateral lower extremities. Review of Systems Review of Systems: As per the HPI Physical Exam Physical Exam: General: Alert. Complaining of bilateral lower extremity pain which is different from initial presentation. Skin: Warm and dry, bilateral lower extremities do not exhibit lymphangitis, there is rubor and venous stasis with 2+ pitting edema. This also appears to be a globalized anasarca. Head: Atraumatic Ears, nose, mouth and throat: airway patent Cardiovascular: Capillary refill within normal limits Respiratory: no respiratory distress Gastrointestinal: Non distended Musculoskeletal: No deformity Results & Data Results & Data ([facility]) Vital Signs (Past 12 Hours) Vital Signs Temp Pulse Resp BP Pulse Ox 10/16/19 08:05 37.0 C 86 16 85/60 L 96 10/16/19 07:35 102 H 21 74/55 L 96 10/16/19 07:04 88 17 108/61 95 10/16/19 06:04 94 H 16 133/65 96 10/16/19 06:00 96 H 14 96 10/16/19 05:34 102 H 19 118/65 96 10/16/19 05:04 95 H 24 118/63 97 10/16/19 04:34 95 H 19 115/63 95 10/16/19 04:04 98 H 15 120/60 97 10/16/19 04:00 36.8 C 93 H 15 96 10/16/19 03:34 95 H 21 116/53 L 98 10/16/19 03:04 87 27 H 93/59 L 97 10/16/19 02:35 101 H 19 103/54 L 97 10/16/19 02:04 114 H 16 91/61 L 97 10/16/19 02:00 109 H 16 94 10/16/19 01:34 94 H 18 109/60 96 10/16/19 01:04 90 19 119/47 L 97 10/16/19 00:34 92 H 20 93/66 L 97 10/16/19 00:05 84 15 106/45 L 98 10/16/19 00:00 36.8 C 86 19 97 10/15/19 23:59 88 10/15/19 23:34 93 H 18 106/52 L 97 Laboratory Results 10/16/19 10/16/19 10/16/19 Range/Units 04:42 04:42 04:42 WBC (4.8-10.8) K/uL RBC (4.2-5.4) M/uL Hgb (12.0-16.0) g/dL Hct (37-47) % MCV (80-100) fL MCH (25-34) pg MCHC (32-36) g/dL RDW Std Deviation (36.4-46.3) fL RDW Coeff of Saadia (11.5-14.5) % Plt Count (130-400) K/uL MPV (7.4-10.4) fL Immature Gran % (Auto) % Neut % (Auto) % Lymph % (Auto) % [place] % (Auto) % Eos % (Auto) % Baso % (Auto) % Neut # (Auto) (1.4-6.5) K/uL Lymph # (Auto) (1.2-3.4) K/uL [place] # (Auto) (0.11-0.59) K/uL Eos # (Auto) (0-0.5) K/uL Baso # (Auto) (0-0.2) K/uL Immature Gran # (Auto) (0.00-0.02) K/uL Toxic Granulation Sodium 137 (136-145) mmol/L Potassium 3.5 (3.5-5.1) mmol/L Chloride 101 (98-107) mmol/L Carbon Dioxide 25 (21-32) mmol/L Anion Gap 11.0 (3-11) BUN 120 H (7-18) mg/dl Creatinine 4.60 H* D (0.6-1.2) mg/dl Est Cr Clr Drug Dosing 13.6 ml/min Est GFR ( Amer) 10.2 Est GFR (Non-Af Amer) 8.8 BUN/Creatinine Ratio 26.2 H (10-20) Glucose 139 H (70-99) mg/dl POC Glucose (70-99) mg/dl Calcium 6.9 L (8.5-10.1) mg/dl Phosphorus 5.6 H (2.5-4.9) mg/dl Magnesium 1.8 (1.8-2.4) mg/dl Total Bilirubin 0.3 (0.2-1) mg/dl Direct Bilirubin 0.1 (0-0.2) mg/dl AST 15 (15-37) U/L ALT 19 (12-78) U/L Alkaline Phosphatase 82 (45-117) U/L Total Protein 4.7 L (6.4-8.2) gm/dl Albumin 1.6 L (3.4-5.0) gm/dl Procalcitonin 8.62 H (0-0.5) ng/ml Random Vancomycin 25.9 mcg/ml 10/16/19 10/15/19 10/15/19 Range/Units 04:42 17:18 16:34 WBC 13.37 H (4.8-10.8) K/uL RBC 3.78 L (4.2-5.4) M/uL Hgb 9.8 L (12.0-16.0) g/dL Hct 28.4 L (37-47) % MCV 75.1 L (80-100) fL MCH 25.9 (25-34) pg MCHC 34.5 (32-36) g/dL RDW Std Deviation 44.5 (36.4-46.3) fL RDW Coeff of Saadia 16.2 H (11.5-14.5) % Plt Count 138 (130-400) K/uL MPV 9.5 (7.4-10.4) fL Immature Gran % (Auto) 0.8 % Neut % (Auto) 94.6 % Lymph % (Auto) 1.7 % [place] % (Auto) 2.9 % Eos % (Auto) 0.0 % Baso % (Auto) 0.0 % Neut # (Auto) 12.64 H (1.4-6.5) K/uL Lymph # (Auto) 0.23 L (1.2-3.4) K/uL [place] # (Auto) 0.39 (0.11-0.59) K/uL Eos # (Auto) 0.00 (0-0.5) K/uL Baso # (Auto) 0.00 (0-0.2) K/uL Immature Gran # (Auto) 0.11 H (0.00-0.02) K/uL Toxic Granulation 1+ Sodium 134 L (136-145) mmol/L Potassium 3.9 (3.5-5.1) mmol/L Chloride 101 (98-107) mmol/L Carbon Dioxide 20 L (21-32) mmol/L Anion Gap 13.0 H (3-11) BUN 122 H (7-18) mg/dl Creatinine 5.05 H* D (0.6-1.2) mg/dl Est Cr Clr Drug Dosing 12.4 ml/min Est GFR ( Amer) 9.1 Est GFR (Non-Af Amer) 7.9 BUN/Creatinine Ratio 24.1 H (10-20) Glucose 259 H (70-99) mg/dl POC Glucose 168 H (70-99) mg/dl Calcium 6.7 L (8.5-10.1) mg/dl Phosphorus 5.9 H (2.5-4.9) mg/dl Magnesium (1.8-2.4) mg/dl Total Bilirubin (0.2-1) mg/dl Direct Bilirubin (0-0.2) mg/dl AST (15-37) U/L ALT (12-78) U/L Alkaline Phosphatase (45-117) U/L Total Protein (6.4-8.2) gm/dl Albumin 1.6 L (3.4-5.0) gm/dl Procalcitonin (0-0.5) ng/ml Random Vancomycin mcg/ml Coding Level of Care Code Critical Care 1st 30-74 mins Diagnoses Sepsis A41.9 Acute renal failure type: unspecified Sepsis acute organ dysfunction status: with acute organ dysfunction Severe sepsis acute organ dysfunction type: acute renal failure Severe sepsis shock status: with septic shock Lower extremity cellulitis L03.119 Hypotension I95.9 Metabolic acidosis E87.2 Hyperkalemia E87.5 Acute kidney injury N17.9 Stasis dermatitis of both legs I87.2 Time Spent (min) 50 Comment I have personally spent 50 minutes of critical care time in the direct management of this patient. This is a life/limb threatening event. This includes time spent evaluating patient, direct bedside care, chart review, placing orders, interpretation of diagnostic studies, discussion with consultants, patient, and/or family members regarding treatment decisions, as well as other required patient management activities. This time is exclusive of all separately billable procedures, and teaching time and separate from and in addition to any other critical care service time. (1) Sepsis Acute renal failure type: unspecified Sepsis acute organ dysfunction status: with acute organ dysfunction Severe sepsis acute organ dysfunction type: acute renal failure Severe sepsis shock status: with septic shock
--- NOTE | 2019-10-16 11:42 | Nephrology Progress Note ---
Date of Service October 16, 2019 Assessment & Plan (1) Acute kidney injury: 73-year-old female with rheumatoid arthritis and hypertension admitted with sepsis due to LE cellulitis complicated by hypotension and PRINCESS. Remains on vasopressor support. IV infusion of NaHCO3 stopped this AM. Volume status appears acceptable. MAP goal >65. CT abd/plv reviewed. No evidence of obstruction noted. Baseline creatinine 1.2-1.4 mg/dL. PRINCESS consistent with prerenal causes and ATN in the setting of sepsis + hypotension requiring vasopressor support. Non- oliguric. Remains in an acceptably positive fluid balance. No emergent indication for dialysis. Dona remains equivocal on whether she would want dialysis if it did become indicated. Medications appropriately dosed for kidney function. Aldactone, furosemide, and losartan held. Remains on vancomycin and Zosyn. Vanco monitoring and dosing per pharmacy. Diet appropriately adjusted for kidney dysfunction. DDx includes AIN (multiple recent abx for cellulitis), less likely vasculitis, immunoglobulin deposition / monoclonal process. SPEP/UPEP, and C3/C4 pending. Creatinine is improving. Prospective monitoring appropriately provided. No additional treatment indicated at this time. UA/micro: 2+ protein, 1+ blood, 1+ LE, no nitrite; >30 WBC, 5-10 RBC, hyaline casts. This will be repeated after 24-48 hrs on abx therapy. Blood 1/2 + Serratia. Urine culture NGTD. Repeat renal panel tomorrow AM. Admission and Anticipated Discharge Date Admission Date: October 14, 2019 Subjective No overnight events. Remains weak but overall better. No significant complaints or concerns at this time. Breathing comfortably. No fevers or chills. Review of Systems Review of Systems: All systems reviewed & are unremarkable except as noted in HPI & below Physical Exam Constitutional: well developed and + frail appearing Eyes: + anicteric sclerae; no conjunctival abnormality ENMT: Mouth: + dry oral mucous membranes; no oral mucosal abnormality Neck: normal visual inspection and trachea midline Respiratory: normal respiratory effort Auscultation: lungs clear to auscultation bilaterally Cardiovascular: Rate/Rhythm: regular rate Heart Sounds: normal S1 and normal S2 Extremities: + edema Gastrointestinal (Abdomen): Percussion/Palpation: abdomen soft; abdomen nontender Musculoskeletal: Extremities: no cyanosis and no clubbing Skin: + turgor decreased; no rashes Neurologic: Motor/Sensory: no tremor and no asterixis Psychiatric: Orientation: alert and oriented x 3 Results & Data ([facility]) Vital Signs (Past 12 Hours) Vital Signs Temp Pulse Resp BP Pulse Ox 10/16/19 08:05 37.0 C 86 16 85/60 L 96 10/16/19 07:35 102 H 21 74/55 L 96 10/16/19 07:04 88 17 108/61 95 10/16/19 06:04 94 H 16 133/65 96 10/16/19 06:00 96 H 14 96 10/16/19 05:34 102 H 19 118/65 96 10/16/19 05:04 95 H 24 118/63 97 10/16/19 04:34 95 H 19 115/63 95 10/16/19 04:04 98 H 15 120/60 97 10/16/19 04:00 36.8 C 93 H 15 96 10/16/19 03:34 95 H 21 116/53 L 98 10/16/19 03:04 87 27 H 93/59 L 97 10/16/19 02:35 101 H 19 103/54 L 97 10/16/19 02:04 114 H 16 91/61 L 97 10/16/19 02:00 109 H 16 94 10/16/19 01:34 94 H 18 109/60 96 10/16/19 01:04 90 19 119/47 L 97 10/16/19 00:34 92 H 20 93/66 L 97 10/16/19 00:05 84 15 106/45 L 98 10/16/19 00:00 36.8 C 86 19 97 10/15/19 23:59 88 Laboratory Results Laboratory Results - last 24 hr 10/15/19 10/15/19 10/16/19 16:34 17:18 04:42 WBC 13.37 H RBC 3.78 L Hgb 9.8 L Hct 28.4 L MCV 75.1 L MCH 25.9 MCHC 34.5 RDW Std Deviation 44.5 RDW Coeff of Saadia 16.2 H Plt Count 138 MPV 9.5 Immature Gran % (Auto) 0.8 Neut % (Auto) 94.6 Lymph % (Auto) 1.7 [place] % (Auto) 2.9 Eos % (Auto) 0.0 Baso % (Auto) 0.0 Neut # (Auto) 12.64 H Lymph # (Auto) 0.23 L [place] # (Auto) 0.39 Eos # (Auto) 0.00 Baso # (Auto) 0.00 Immature Gran # (Auto) 0.11 H Toxic Granulation 1+ Sodium 134 L Potassium 3.9 Chloride 101 Carbon Dioxide 20 L Anion Gap 13.0 H BUN 122 H Creatinine 5.05 H* D Est Cr Clr Drug Dosing 12.4 Est GFR ( Amer) 9.1 Est GFR (Non-Af Amer) 7.9 BUN/Creatinine Ratio 24.1 H Glucose 259 H POC Glucose 168 H Calcium 6.7 L Phosphorus 5.9 H Magnesium Total Bilirubin Direct Bilirubin AST ALT Alkaline Phosphatase Total Protein Albumin 1.6 L Procalcitonin Random Vancomycin 10/16/19 10/16/19 10/16/19 04:42 04:42 04:42 WBC RBC Hgb Hct MCV MCH MCHC RDW Std Deviation RDW Coeff of Saadia Plt Count MPV Immature Gran % (Auto) Neut % (Auto) Lymph % (Auto) [place] % (Auto) Eos % (Auto) Baso % (Auto) Neut # (Auto) Lymph # (Auto) [place] # (Auto) Eos # (Auto) Baso # (Auto) Immature Gran # (Auto) Toxic Granulation Sodium 137 Potassium 3.5 Chloride 101 Carbon Dioxide 25 Anion Gap 11.0 BUN 120 H Creatinine 4.60 H* D Est Cr Clr Drug Dosing 13.6 Est GFR ( Amer) 10.2 Est GFR (Non-Af Amer) 8.8 BUN/Creatinine Ratio 26.2 H Glucose 139 H POC Glucose Calcium 6.9 L Phosphorus 5.6 H Magnesium 1.8 Total Bilirubin 0.3 Direct Bilirubin 0.1 AST 15 ALT 19 Alkaline Phosphatase 82 Total Protein 4.7 L Albumin 1.6 L Procalcitonin 8.62 H Random Vancomycin 25.9 PG Care Time/CCT Total # of Minutes Spent Total Time Spent with Patient: Total time spent is greater than 50% in coordination of care (as documented) at patient's floor/unit and/or counseling patient: Coding Level of Care Code 13667 Subseq Hosp Care Lvl 3 Diagnoses Acute kidney injury N17.9
[2019-10-16] MEDS: HYDROXYCHLOROQUINE SULFATE 200 MG TAB PO SCH (21:20)
[2019-10-17 04:43] LABS: Hematocrit (blood only) 27.8 % (37-47); Mean Corpuscular Hemoglobin 25.4 pg (25-34); Mean Corpuscular Hgb Conc 32.4 g/dL (32-36); Mean Corpuscular Volume 78.5 fL (80-100); RDW Coefficient of Variation 16.1 % (11.5-14.5); RDW Standard Deviation 46.6 fL (36.4-46.3); Red Blood Count 3.54 M/uL (4.2-5.4); White Blood Count 13.77 K/uL (4.8-10.8)
[2019-10-17 04:58] LABS: BUN Creatinine Ratio 28.6 (10-20); Calcium 7.1 mg/dl (8.5-10.1); Est GFR (African American) 13.2; Est GFR (Non-African American) 11.4; Magnesium 1.8 mg/dl (1.8-2.4); Potassium 3.3 mmol/L (3.5-5.1)
[2019-10-17 04:59] LABS: Phosphorus 5.2 mg/dl (2.5-4.9)
[2019-10-17 05:11] LABS: Basophils # (auto) 0.01 K/uL (0-0.2); Basophils % (auto) 0.1 %; Immature Granulocytes # (auto) 0.14 K/uL (0.00-0.02); Lymphocytes # (auto) 0.29 K/uL (1.2-3.4); Lymphocytes % (auto) 2.1 %; Mean Platelet Volume 10.3 fL (7.4-10.4); Monocytes # (auto) 0.61 K/uL (0.11-0.59); Monocytes % (auto) 4.4 %; Neutrophils # (auto) 12.72 K/uL (1.4-6.5); Neutrophils % (auto) 92.4 %; Platelet Count 98 K/uL (130-400); Platelet Estimate Decreased (Normal)
[2019-10-17] MEDS: HEPARIN SOD 5,000 UNIT/0.5 ML VIAL SQ SCH ×3 (06:05→21:34)
[2019-10-17] MEDS: POTASSIUM CHLORIDE / WTR 10 MEQ/100 ML PLCT IV SCH ×2 (06:06→07:51)
[2019-10-17] MEDS: HYDROCORTISONE SOD 50 MG in SYRINGE 0 ML IV SCH (06:06)
[2019-10-17] MEDS: PANTOprazole 40 MG TAB PO SCH (07:52)
[2019-10-17] MEDS: cefTRIAXone SODIUM 2,000 MG in DEXTROSE 5% 50 ML IV SCH (07:52)
--- NOTE | 2019-10-17 07:57 | Critical Care Progress Note ---
Date of Service October 17, 2019 Assessment & Plan (1) Bacterial infection due to Serratia: Reason Critically Ill: 73-year-old female with sepsis and septic shock, possibly from urinary source versus skin source. 24-hour events: Patient was weaned off vasopressor agents. She is improved. She is remained with stable vital signs overnight. She is complaining of some loose stools. PLAN: Neuro: Acute encephalopathy: Improved CV: Suspect related to septic shock. The patient was receiving empiric hydrocortisone however her random cortisol on presentation was over 60 which does not suggest relative adrenal insufficiency. If the patient can remain on vasopressor agents this morning, she can likely transfer to the floor under the care of the hospitalist later today. Could consider oral midodrine if the patient's blood pressure remains labile. Fluids/Renal: Acute on chronic kidney injury. Urine output improving and serum creatinine decreasing. The patient adamantly declines renal replacement therapy should it be necessary. Continue supportive care at this point time. Will maintain Velásquez catheter to track I's and O's. Acid-base status and electrolytes are reasonable. Appreciate nephrology assistance. Will replace calcium as this is likely contributing to her low blood pressure as well. Pulmonary: Moderate pulmonary hypertension on echocardiogram likely multifactorial. No indication for pulmonary vasodilators. Patient is on room air. Out of bed as tolerated. ID: Septic shock due to urosepsis versus cellulitis. Improving. Repeat cultures today to ensure bacteremia has cleared. Will likely need 10 to 14 days parenteral antibiotics. PICC line in place. GI/Nutrition: Patient complains of some diarrhea. Minimal loose stool. Abdominal exam benign today. We will continue to trend. She is on Megace chronically. Her albumin is markedly low and she would benefit from some colloid replacement. Initial dose of albumin today. Heme: Anemia: At baseline DVT prophylaxis: Heparin twice daily Endocrine: ICU hyperglycemia protocol. Should be able to adjust or discontinue the hydrocortisone. Will assess with pharmacy to see if the random cortisol was obtained before or after hydrocortisone was administered. Vascular access: PICC -Patient does not desire dialysis at this time, preferred pack for less acute risk versus central venous access ICU care: Physical therapy and occupational consults will be requested. The patient needs to mobilize and get out of bed. Bilateral lower extremity wounds: Continue wound care consult. Currently wrapped. Code Status: Conditional code Disposition: Should likely be able to transfer to the floor under the care of the hospitalist this afternoon. Will sign off once the patient leaves the ICU. Will discuss with hospitalist. (2) Septic shock: (3) Acute renal failure (ARF): (4) Sepsis: Admission and Anticipated Discharge Date Admission Date: October 14, 2019 Subjective Patient seen and examined. EMR reviewed. Discussed with critical care JOVITA overnight. Discussed with ICU nurse and on bedside multidisciplinary rounds. Overnight the patient has continued to show improvement. She made over 2 L of urine last night. Is been off pressor agents since 6:00 this morning and appears to be holding stable blood pressure. She states she has little appetite. She is also complaining of some loose stools. No abdominal pain or nausea. She remains on room air. Review of Systems Review of Systems: All systems reviewed & are unremarkable except as noted in HPI & below Physical Exam Constitutional: well developed, + lethargic and + overweight; no acute distress Eyes: PERRL, conjunctivae normal, anicteric sclerae ENMT: external ear and nose normal, oropharynx normal Neck: trachea midline, no thyromegaly Respiratory: normal respiratory effort, lungs clear to auscultation Cardiovascular: RRR, no murmur, no edema Gastrointestinal (Abdomen): normal bowel sounds, soft, nontender, no hepatosplenomegaly Musculoskeletal: no cyanosis or clubbing, extremities motor strength 5/5 Skin: + rash and + erythema (bilateral lower legs, weaping in places, wrapped, tender) Neurologic: patellar DTR's 2+ bilat, sensation intact and PERRL, EOMI, accommodation nl, no face palsy, no dysarthria Psychiatric: A+Ox3, euthymic affect Lymphatic: no cervical or axillary lymphadenopathy Results & Data Results & Data ([facility]) Vital Signs (Past 12 Hours) Vital Signs Temp Pulse Resp BP Pulse Ox 10/17/19 06:29 74 19 110/52 L 95 10/17/19 06:16 76 14 89/55 L 95 10/17/19 06:01 71 29 H 111/56 L 93 10/17/19 05:15 78 17 116/48 L 94 10/17/19 04:00 36.8 C 86 17 105/55 L 94 10/17/19 02:02 85 15 100/51 L 95 10/17/19 01:01 87 24 104/48 L 96 10/17/19 00:27 73 18 95/48 L 95 10/17/19 00:12 74 17 106/50 L 96 10/16/19 23:27 96 H 17 103/57 L 94 10/16/19 23:08 36.8 C 10/16/19 22:12 75 18 105/49 L 94 10/16/19 21:57 90 15 118/62 94 10/16/19 21:42 83 17 119/60 94 10/16/19 21:27 77 15 140/55 L 95 10/16/19 21:12 81 17 113/56 L 95 10/16/19 20:12 88 18 101/55 L 96 10/16/19 20:00 36.8 C 79 25 H 94 10/16/19 19:57 77 16 98/61 L 94 Laboratory Results 10/17/19 04:27 10/17/19 04:27 Blood cultures 2 out of 2 Serratia marcescens, pansensitive Diagnostic Findings No new imaging. Chest x-ray from 10/14/2019 was reviewed. Low lung volumes. Cardiomegaly but portable film. Obesity. Coding Level of Care Code 27682 Subseq Hosp Care Lvl 3 Diagnoses Bacterial infection due to Serratia A49.8 Septic shock A41.9; R65.21 Acute renal failure (ARF) N17.9 Acute renal failure type: unspecified Sepsis A41.9; R65.21; N17.9 Acute renal failure type: unspecified Sepsis acute organ dysfunction status: with acute organ dysfunction Sepsis type: sepsis due to unspecified organism Severe sepsis acute organ dysfunction type: acute renal failure Severe sepsis shock status: with septic shock (1) Acute renal failure (ARF) Acute renal failure type: unspecified Qualified Code(s): N17.9 - Acute kidney failure, unspecified (2) Sepsis Acute renal failure type: unspecified Sepsis acute organ dysfunction status: with acute organ dysfunction Sepsis type: sepsis due to unspecified organism Severe sepsis acute organ dysfunction type: acute renal failure Severe sepsis shock status: with septic shock Qualified Code(s): A41.9 - Sepsis, unspecified organism; R65.21 - Severe sepsis with septic shock; N17.9 - Acute kidney failure, unspecified
[2019-10-17] MEDS ORDERED: CALCIUM CHLORIDE 10% 1,000 MG in SODIUM CHLORIDE 0.9% 50 ML IV ONE (08:00)
[2019-10-17] MEDS ORDERED: ALBUMIN 25% 50 ML IV ONE (08:00)
[2019-10-17] MEDS: NOREPINEPHRINE BIT INJ 8 MG in DEXTROSE 5% 500 ML IV SCH (08:23)
[2019-10-17] MEDS ORDERED: MEGESTROL ACETATE 40 MG TAB PO SCH (09:00)
--- NOTE | 2019-10-17 09:12 | Nephrology Progress Note ---
Date of Service October 17, 2019 Assessment & Plan (1) Acute kidney injury: Non-oliguric. Creatinine continues to improve with supportive care. Dona has expressed a refusal of dialysis. Thankfully, it has not been indicated. Volume status is acceptable. She remains in an appropriate slightly positive fluid balance. Electrolytes appropriate. IV potassium provided this morning for hypokalemia. BP improving. IV albumin provided to assist. Overall, Dona is clinically showing signs of renal recovery. Nephrology will continue to follow peripherally. Please monitor renal profile daily and call with questions or concerns. Plan of care updated with dr. Wells this morning. Admission and Anticipated Discharge Date Admission Date: October 14, 2019 Subjective No acute events overnight. ~3 loose bowel movements overnight. No abdominal pain. Appetite poor. Denies nausea. Tolerating oral fluids. Levophed weaned off. No fevers. Adequate urine output. Review of Systems Review of Systems: All systems reviewed & are unremarkable except as noted in HPI & below Physical Exam Physical Exam: Deferred due to COVID 19 pandemic Results & Data ([facility]) Vital Signs (Past 12 Hours) Vital Signs Temp Pulse Resp BP Pulse Ox 10/17/19 08:19 77 17 90/47 L 94 10/17/19 08:07 78 21 105/51 L 96 10/17/19 08:05 77 16 94 10/17/19 08:00 81 22 96 10/17/19 07:49 83 16 119/100 95 10/17/19 07:30 36.8 C 86 27 H 96 10/17/19 07:14 68 15 109/50 L 95 10/17/19 07:01 77 15 95 10/17/19 07:00 80 14 100/53 L 95 10/17/19 06:29 74 19 110/52 L 95 10/17/19 06:16 76 14 89/55 L 95 10/17/19 06:01 71 29 H 111/56 L 93 10/17/19 05:15 78 17 116/48 L 94 10/17/19 04:00 36.8 C 86 17 105/55 L 94 10/17/19 02:02 85 15 100/51 L 95 10/17/19 01:01 87 24 104/48 L 96 10/17/19 00:27 73 18 95/48 L 95 10/17/19 00:12 74 17 106/50 L 96 10/16/19 23:27 96 H 17 103/57 L 94 10/16/19 23:08 36.8 C 10/16/19 22:12 75 18 105/49 L 94 10/16/19 21:57 90 15 118/62 94 10/16/19 21:42 83 17 119/60 94 10/16/19 21:27 77 15 140/55 L 95 10/16/19 21:12 81 17 113/56 L 95 Laboratory Results Laboratory Results - last 24 hr 10/16/19 10/17/19 10/17/19 16:14 04:27 04:27 WBC 13.77 H RBC 3.54 L Hgb 9.0 L Hct 27.8 L MCV 78.5 L MCH 25.4 MCHC 32.4 RDW Std Deviation 46.6 H RDW Coeff of Saadia 16.1 H Plt Count 98 L MPV 10.3 Immature Gran % (Auto) 1.0 Neut % (Auto) 92.4 Lymph % (Auto) 2.1 [place] % (Auto) 4.4 Eos % (Auto) 0.0 Baso % (Auto) 0.1 Neut # (Auto) 12.72 H Lymph # (Auto) 0.29 L [place] # (Auto) 0.61 H Eos # (Auto) 0.00 Baso # (Auto) 0.01 Immature Gran # (Auto) 0.14 H Platelet Estimate Decreased L Sodium 142 Potassium 3.3 L Chloride 104 Carbon Dioxide 30 Anion Gap 8.0 BUN 106 H Creatinine 3.72 H D Est Cr Clr Drug Dosing 17.0 Est GFR ( Amer) 13.2 Est GFR (Non-Af Amer) 11.4 BUN/Creatinine Ratio 28.6 H Glucose 96 POC Glucose 151 H Calcium 7.1 L Phosphorus 5.2 H Magnesium 1.8 PG Care Time/CCT Total # of Minutes Spent Total Time Spent with Patient: Total time spent is greater than 50% in co ordination of care (as documented) at patient's floor/unit and/or counseling patient: Coding Level of Care Code 61736 Subseq Hosp Care Lvl 3 Diagnoses Acute kidney injury N17.9
[2019-10-17] MEDS: LACTOBACILLUS ACIDOPHILUS (FLORANEX) TAB PO SCH ×2 (12:27→20:17)
--- NOTE | 2019-10-17 13:08 | Hospitalist Progress Note ---
Date of Service October 17, 2019 Assessment & Plan (1) Septic shock: requiring Levophed for MAP > 65, titrated off today, BP stable in low 100's systolic blood culture with Serratia, hidalgo sensitive repeat blood cultures drawn 10/16 urine culture is re-incubating most likely source is bilateral cellulitis no fever, WBC 13k, procalcitonin was down to 8 yesterday, will repeat tomorrow patient has a PICC line for IV access, would anticipate her needing 14 days of IV Rocephin from negative blood cultures of note, she failed several rounds of oral antibiotics for cellulitis, see below transfer to PCU status today, no longer critically il (2) Sepsis: see above presenting with hypotension, PRINCESS (improving) Change Vanco and Zosyn to Rocephin 2gm IV daily WBC 13k, procalcitonin going down appropriately (3) Lower extremity cellulitis: Failed multiple trials of outpt tx including clinda, doxy, keflex change antibiotics to Rocephin 2gm IV daily skin is very erythematous, warm, weeping she saw Dr. Miranda in the office on Thursday called his office 10/16 to get his impression on skin, unfortunately he is out of the office for next two weeks (4) Hyperkalemia: resolved after insulin, bicarb in the ED stable with improved renal function hypokalemic today at 3.3, replacement ordered per protocol (5) Acute kidney injury: Baseline cr 1.3 Cr 7.9 on admission responded to IV fluid boluses and pressor support non-oliguric, clear urine in rick bag Cr down to 3.72 today, BUN down to 106, overall improving nicely HCO3 is now normal at 30 nephrology following, no emergent needs for HD, kidneys appear to be recovering patient says she would likely refuse any HD even if it would be recommended short term Dr. Andrews will follow peripherally from this point on, recommends daily BMP (6) HTN (hypertension): continue to hold home medications as BP is in 100's systolic off pressors (7) Hyperlipidemia: Holding statin (8) Rheumatoid arthritis: Baseline prednisone use 7.5mg QD, resumed today after stress dose steroids initially continue Hydroxychloroquine (9) DVT prophylaxis: Heparin for DVT proph Full code (10) Loose stools: could be due to antibiotics Lactobacillus ordered (11) Hypocalcemia: replace IV today for level of 7.1 repeat tomorrow Admission and Anticipated Discharge Date Admission Date: October 14, 2019 Subjective patient has a poor appetite and some loose stools this morning no vomiting like yesterday, was likely from the Fentanyl she received I attempted to call Dr. Miranda, senior c software developer who saw her on Thursday, but his offi ce said he is out for two weeks blood cultures growing Serratia, hidalgo sensitive, repeat cultures done today reviewed labs, Cr down to 3.72, K 3.3, calcium low at 7.1 WBC is 13k, Hb [address] Wells, okay to transfer out of ICU since BP stable off pressors discussed with Dr. Andrews, kidneys are recovering, he will follow peripherally Review of Systems Review of Systems: All systems reviewed & are unremarkable except as noted in HPI & below Constitutional: + fatigue and + weakness; no fever Respiratory: no cough and no dyspnea Cardiovascular: no chest pain and no edema Gastrointestinal: + early satiety and + diarrhea/loose stools; no abdominal pain, no nausea, no vomiting and no constipation Integumentary: + erythema (bilateral lower legs) Physical Exam Constitutional: well developed and + overweight; no acute distress Eyes: PERRL, conjunctivae normal, anicteric sclerae ENMT: external ear and nose normal, oropharynx normal Neck: trachea midline, no thyromegaly Respiratory: normal respiratory effort, lungs clear to auscultation Cardiovascular: RRR, no murmur, no edema Gastrointestinal (Abdomen): normal bowel sounds, soft, nontender, no he patosplenomegaly Musculoskeletal: no cyanosis or clubbing, extremities motor strength 5/5 Skin: + rash and + erythema (bilateral lower legs, weaping in places, wrapped, tender) Neurologic: patellar DTR's 2+ bilat, sensation intact and PERRL, EOMI, accommodation nl, no face palsy, no dysarthria Psychiatric: A+Ox3, euthymic affect Lymphatic: no cervical or axillary lymphadenopathy Results & Data Results & Data ([facility]) Vital Signs (Past 12 Hours) Vital Signs Temp Pulse Resp BP Pulse Ox 10/17/19 12:00 76 14 97 10/17/19 11:49 36.8 C 76 25 H 102/48 L 98 10/17/19 11:30 82 18 97 10/17/19 11:19 109 H 15 98/55 L 95 10/17/19 11:00 75 12 95 10/17/19 10:49 76 21 100/50 L 96 10/17/19 10:30 76 21 96 10/17/19 10:19 77 14 97/51 L 98 10/17/19 10:00 74 19 100 10/17/19 09:49 74 15 103/50 L 95 10/17/19 09:30 76 15 98 10/17/19 09:19 88 19 110/53 L 96 10/17/19 09:00 78 19 96 10/17/19 08:49 85 17 109/50 L 97 10/17/19 08:30 76 23 96 10/17/19 08:20 75 18 96 10/17/19 08:19 77 17 90/47 L 94 10/17/19 08:07 78 21 105/51 L 96 10/17/19 08:05 77 16 94 10/17/19 08:00 81 22 96 10/17/19 07:49 83 16 119/100 95 10/17/19 07:30 36.8 C 86 27 H 96 10/17/19 07:14 68 15 109/50 L 95 10/17/19 07:01 77 15 95 10/17/19 07:00 80 14 100/53 L 95 10/17/19 06:29 74 19 110/52 L 95 10/17/19 06:16 76 14 89/55 L 95 10/17/19 06:01 71 29 H 111/56 L 93 10/17/19 05:15 78 17 116/48 L 94 10/17/19 04:00 36.8 C 86 17 105/55 L 94 10/17/19 02:02 85 15 100/51 L 95 10/17/19 01:01 87 24 104/48 L 96 Laboratory Results Laboratory Results - last 24 hr 10/16/19 10/17/19 10/17/19 16:14 04:27 04:27 WBC 13.77 H RBC 3.54 L Hgb 9.0 L Hct 27.8 L MCV 78.5 L MCH 25.4 MCHC 32.4 RDW Std Deviation 46.6 H RDW Coeff of Saadia 16.1 H Plt Count 98 L MPV 10.3 Immature Gran % (Auto) 1.0 Neut % (Auto) 92.4 Lymph % (Auto) 2.1 [place] % (Auto) 4.4 Eos % (Auto) 0.0 Baso % (Auto) 0.1 Neut # (Auto) 12.72 H Lymph # (Auto) 0.29 L [place] # (Auto) 0.61 H Eos # (Auto) 0.00 Baso # (Auto) 0.01 Immature Gran # (Auto) 0.14 H Platelet Estimate Decreased L Sodium 142 Potassium 3.3 L Chloride 104 Carbon Dioxide 30 Anion Gap 8.0 BUN 106 H Creatinine 3.72 H D Est Cr Clr Drug Dosing 17.0 Est GFR ( Amer) 13.2 Est GFR (Non-Af Amer) 11.4 BUN/Creatinine Ratio 28.6 H Glucose 96 POC Glucose 151 H Calcium 7.1 L Phosphorus 5.2 H Magnesium 1.8 Medications Administered Current Inpatient Medications Heparin Sodium (Beef Lung) (Heparin Sod 10 Unit/Ml Flush) 5 ml FLUSH PRN PRN PRN Reason: Flush Stop: 11/15/19 02:23 Heparin Sodium (Porcine) (Heparin Sodium (Porcine)) 5,000 units SQ Q8 [facility] Stop: 11/13/19 15:59 Last Admin: 10/17/19 12:28 Dose: 5,000 units Documented by: Hydroxychloroquine Sulfate (Plaquenil) 400 mg PO HS [facility] Stop: 11/13/19 20:59 Last Admin: 10/16/19 21:20 Dose: 400 mg Documented by: Ceftriaxone Sodium 2,000 mg/ (Dextrose) 70 mls @ 100 mls/hr IV DAILY [facility]; Protocol Stop: 10/26/19 09:59 Last Infusion: 10/17/19 08:35 Dose: Infused Documented by: Lactobacillus Acidophilus (Floranex) 4 tab PO TID [facility] Stop: 11/16/19 13:59 Last Admin: 10/17/19 12:27 Dose: 4 tab Documented by: Magnesium Hydroxide (Milk Of Magnesia) 30 ml PO Q6H PRN PRN Reason: Constipation Stop: 11/13/19 15:26 Pantoprazole Sodium (Protonix) 40 mg PO QAM [facility] Stop: 11/14/19 08:59 Last Admin: 10/17/19 07:52 Dose: 40 mg Documented by: Prednisone (Prednisone) 7.5 mg PO QAM [facility] Stop: 11/17/19 08:59 PG Care Time/CCT Total # of Minutes Spent Total Time Spent with Patient: Total time spent is greater than 50% in coordination of care (as documented) at patient's floor/unit and/or counseling patient: Coding Level of Care Code 98831 Subseq Hosp Care Lvl 3 Diagnoses Septic shock A41.9; R65.21 Sepsis A41.9 Sepsis acute organ dysfunction status: with acute organ dysfunction Severe sepsis acute organ dysfunction type: acute renal failure Acute renal failure type: unspecified Severe sepsis shock status: with septic shock Lower extremity cellulitis L03.119 Hyperkalemia E87.5 Acute kidney injury N17.9 HTN (hypertension) I10 Hyperlipidemia E78.5 Rheumatoid arthritis M06.9 DVT prophylaxis Z29.9 Loose stools R19.5 Hypocalcemia E83.51 (1) Sepsis Sepsis acute organ dysfunction status: with acute organ dysfunction Severe sepsis acute organ dysfunction type: acute renal failure Acute renal failure type: unspecified Severe sepsis shock status: with septic shock
[2019-10-17 19:33] LABS: Albumin 1.7 g/dL (3.8-4.8); Alpha 1 Globulin 0.4 g/dL (0.2-0.3); Alpha 2 Globulin 0.6 g/dL (0.5-0.9); Beta-1-Globulin 0.2 g/dL (0.4-0.6); Beta-2-Globulin 0.2 g/dL (0.2-0.5); Complement C3 94 mg/dL (83-193); Free Kappa 13.7 mg/L (3.3-19.4); Free Kappa/Lambda Ratio 2.49 (0.26-1.65); Free Lambda 5.5 mg/L (5.7-26.3); Gamma Globulin 0.1 g/dL (0.8-1.7); Monoclonal Protein Band 1 DNR g/dL (NONE DETECTED); Monoclonal Protein Band 2 DNR g/dL (NONE DETECTED); Monoclonal Protein Band 3 DNR g/dL (NONE DETECTED); Total Protein 3.2 g/dL (6.1-8.1)
[2019-10-17] MEDS: TRAMADOL HCL 50 MG TABLET PO PRN (20:16)
[2019-10-17] MEDS: HYDROXYCHLOROQUINE SULFATE 200 MG TAB PO SCH (21:38)
[2019-10-18 06:25] LABS: Hematocrit (blood only) 26.9 % (37-47); Hemoglobin 8.3 g/dL (12.0-16.0); Mean Corpuscular Hemoglobin 25.2 pg (25-34); Mean Corpuscular Hgb Conc 30.9 g/dL (32-36); Mean Corpuscular Volume 81.5 fL (80-100); RDW Coefficient of Variation 16.2 % (11.5-14.5); RDW Standard Deviation 47.7 fL (36.4-46.3)
[2019-10-18 06:28] LABS: Mean Platelet Volume 10.1 fL (7.4-10.4); Platelet Count 77 K/uL (130-400)
[2019-10-18 06:53] LABS: Eosinophils # (auto) 0.24 K/uL (0-0.5); Eosinophils % (auto) 2.7 %; Immature Granulocytes # (auto) 0.12 K/uL (0.00-0.02); Immature Granulocytes % (auto) 1.4 %; Lymphocytes # (auto) 0.48 K/uL (1.2-3.4); Lymphocytes % (auto) 5.5 %; Monocytes # (auto) 0.06 K/uL (0.11-0.59); Monocytes % (auto) 0.7 %; Neutrophils % (auto) 89.7 %
[2019-10-18 07:20] LABS: Albumin Globulin Ratio 0.4 (0.9-2); Albumin Level 1.4 gm/dl (3.4-5.0); BUN Creatinine Ratio 29.3 (10-20); Bilirubin,Total 0.2 mg/dl (0.2-1); Calcium 8.2 mg/dl (8.5-10.1); Creatinine Clr Calc Pharmacy 19.5 ml/min; Est GFR (African American) 15.7; Est GFR (Non-African American) 13.6; Globulin 3.3 gm/dl (2.5-4.0); Magnesium 1.6 mg/dl (1.8-2.4); Phosphorus 4.1 mg/dl (2.5-4.9); Potassium 2.7 mmol/L (3.5-5.1); Total Protein 4.7 gm/dl (6.4-8.2)
[2019-10-18] MEDS ORDERED: POTASSIUM CHLORIDE 20 MEQ TABCR PO STA (07:57)
[2019-10-18] MEDS ORDERED: MAGNESIUM SULFATE / D5W 1 GM/100 ML BAG IV ONE (08:15)
[2019-10-18] MEDS: POTASSIUM CHLORIDE / WTR 10 MEQ/100 ML PLCT IV SCH ×2 (08:35→09:35)
[2019-10-18] MEDS: LACTOBACILLUS ACIDOPHILUS (FLORANEX) TAB PO SCH ×3 (08:57→22:06)
[2019-10-18] MEDS: cefTRIAXone SODIUM 2,000 MG in DEXTROSE 5% 50 ML IV SCH (08:57)
[2019-10-18] MEDS: HYDROCORTISONE SOD 25 MG in SYRINGE 0 ML IV SCH ×3 (08:57→22:07)
[2019-10-18] MEDS: PANTOprazole 40 MG TAB PO SCH (08:58)
[2019-10-18] MEDS: HEPARIN SOD 5,000 UNIT/0.5 ML VIAL SQ SCH ×3 (08:59→22:07)
[2019-10-18] MEDS ORDERED: SACCHAROMYCES BOULARDII 250 MG CAP PO SCH (09:00)
[2019-10-18 09:50] LABS: Creatinine Ur 74 mg/dL (20-275); Protein, Urine Random 53 mg/dL (5-24); Ur Protein/Creat Ratio mg/g 716 mg/g creat (21-161); Urine Abnormal Protein Band 1 DNR mg/dL (NONE DETECTED); Urine Abnormal Protein Band 2 DNR mg/dL (NONE DETECTED); Urine Abnormal Protein Band 3 DNR mg/dL (NONE DETECTED); Urine Protein/Creatinine Ratio 0.716 (0.021-0.161)
--- NOTE | 2019-10-18 17:01 | Hospitalist Progress Note ---
Date of Service October 18, 2019 Assessment & Plan (1) Septic shock: Required admission to ICU & pressors. Weaned off 10/16. Source - b/l LE cellulitis. Cont stress dose steroids - hydrocortisone 25mg IV TID. Antibiotics narrowed to IV rocephin 2 grams daily. Will cover gram positives and gram negatives including serratia. Follow repeat blood cultures from 10/16 for test of cure. (2) Lower extremity cellulitis: Failed multiple outpatient antibiotics since august including clinda, doxy, keflex. Currently on rocephin 2gm IV daily. Anticipate extended course of IV antibiotics, followed by PO antibiotics again. Continue local wound care as outlined by wound care team. When renal function improves would benefit from some diuresis. When infection improves would benefit from compression. (3) Hyperkalemia: 2nd to acute renal failure. resolved, now w/ hypokalemia - see below. (4) Acute kidney injury: Baseline cr 1.3. Cr 7.9 on admission. Likely sepsis-associated ATN. Good UOP and Cr continues to improved daily. Appreciate nephrology consult/recs. BMP am. (5) HTN (hypertension): continue to hold home medications. (6) Hyperlipidemia: Holding statin. Resume at discharge. (7) Rheumatoid arthritis: Chronic prednisone use - 7.5mg daily. Now on stress doses of steroid due to sepsis. Continue Hydroxychloroquine. Also takes leflunomide at home. (8) Hypocalcemia: total calcium 8.2. correcting for low albumin it is about 10. (9) Hypokalemia: Replace IV/PO. Repeat K level tonight and in am. (10) Hypomagnesemia: Replace. Repeat level later today. (11) Candidiasis of mouth and esophagus: 2nd to chronic steroids/immunosuppressants. nystatin solution 5cc qid. (12) Hypoalbuminemia: Severe. Normal albumin in August. Start boost BID. Add MVI, vit C, and zinc for wound healing and overall health. 2nd to poor oral intake?? (13) Thrombocytopenia: Suspect sepsis-associated. Repeat CBC am. HIT is possible but somewhat too early for that (usually occurs 7-10 days following heparin administration). Continue to monitor carefully. (14) DVT prophylaxis: Heparin for DVT proph - should be BID dosing given renal failure cont PT/OT left message for Suraj, her brother - 10/18/19 Admission and Anticipated Discharge Date Admission Date: October 14, 2019 Subjective patient c/o ongoing weeping from both legs. mild soreness. states she has "been dealing with her legs for 5+ weeks". records reviewed - antibiotic courses included doxycycline (08/26/19); clindamycin (09/05/19); keflex (09/27/19) -- all without resolution of erythema of both legs. albumin was 3.4 on 09/01/19. culture from leg - 08/2019 - 3+gram neg rods; 1+ GPC (no speciation). she asks "why won't this get better?" (her legs) has been taking prednisone for many years. her outpatient doctors tried weaning the prednisone to 5mg but her joints swelled and weaning was stopped. Review of Systems Constitutional: + fatigue and + anorexia; no fever and no chills Respiratory: no dyspnea Cardiovascular: no chest pain Gastrointestinal: no abdominal pain Physical Exam Constitutional: + morbidly obese and + frail appearing; no acute distress and no altered mental status ENMT: Mouth: + oral mucosal abnormality (thrush plaques buccal mucosa ) Respiratory: normal respiratory effort, lungs clear to auscultation Auscultation: + diminished lung sounds (bases) Cardiovascular: Rate/Rhythm: regular rate and regular rhythm Heart Sounds: normal S1, normal S2 and + murmur (1/6 systolic LSB) Vessels: posterior tibial pulses present and dorsalis pedis pulses present; no JVD Extremities: + edema (b/l legs - 2-3+ ) Gastrointestinal (Abdomen): normal bowel sounds, soft, nontender, no hepatosplenomegaly Skin: dressings removed from b/l legs; right leg - streaky erythema extending from the knee area medially up the thigh; erythema on entire right sanchez extending to dorsum of right foot; stasis changes; ulcerations (shallow) multiple areas RLE. left leg - erythema extending from just below tibial plateau down the leg to the dorsum of left foot; shallow ulcerations scattered; stasis changes. Psychiatric: A+Ox3, euthymic affect Results & Data Results & Data ([facility]) Vital Signs (Past 12 Hours) Vital Signs Temp Pulse Resp BP Pulse Ox Pulse Ox 10/18/19 15:01 36.5 C 85 17 110/71 99 10/18/19 11:47 36.7 C 86 18 107/70 99 10/18/19 11:24 97 10/18/19 07:53 36.7 C 90 16 89/47 L 95 Laboratory Results Laboratory Results - last 24 hr 10/14/19 10/14/19 10/18/19 13:43 18:15 05:32 WBC 8.80 RBC 3.30 L Hgb 8.3 L Hct 26.9 L MCV 81.5 MCH 25.2 MCHC 30.9 L RDW Std Deviation 47.7 H RDW Coeff of Saadia 16.2 H Plt Count 77 L MPV 10.1 Immature Gran % (Auto) 1.4 Neut % (Auto) 89.7 Lymph % (Auto) 5.5 [place] % (Auto) 0.7 Eos % (Auto) 2.7 Baso % (Auto) 0.0 Neut # (Auto) 7.90 H Lymph # (Auto) 0.48 L [place] # (Auto) 0.06 L Eos # (Auto) 0.24 Baso # (Auto) 0.00 Immature Gran # (Auto) 0.12 H Sodium Potassium Chloride Carbon Dioxide Anion Gap BUN Creatinine Est Cr Clr Drug Dosing Est GFR ( Amer) Est GFR (Non-Af Amer) BUN/Creatinine Ratio Glucose Calcium Phosphorus Magnesium Total Bilirubin AST ALT Alkaline Phosphatase Total Protein Total Protein (PEP) 3.2 L Albumin Albumin (PEP) 1.7 L Globulin Albumin/Globulin Ratio Aagog-6-Tsmtdoeva 0.4 H Fgpmd-5-Ipnazyapl 0.6 Drvu-7-Pcmrzeza 0.2 L Zabi-4-Qltbcgts 0.2 Gamma Globulins 0.1 L Monoclonal Peak 3 DNR Ser Monoclonl Protein DNR Ser Monoclonal Prot 2 DNR PEP Interpretation SEE NOTE Procalcitonin U Random Total Protein 53 H Ur Creatinine mg/dL 74 Protein/Creatinin Ratio 0.716 H Urine Albumin (%) 46 U Lcmut-0-Joeymmvh (%) 11 U Olyei-2-Hhgoxtvl (%) 12 U Beta Globulin (%) 15 U Gamma Globulin (%) 16 U Abnormal Prot Band 1 DNR U Abnormal Prot Band 2 DNR U Abnormal Prot Band 3 DNR Urine PEP Interpret SEE NOTE Complement C3 94 Complement C4 26 Free [place] LC, Quant 13.7 Free Lambda LC, Quant 5.5 L Free [place]/Lambda Ratio 2.49 H 10/18/19 10/18/19 05:32 05:32 WBC RBC Hgb Hct MCV MCH MCHC RDW Std Deviation RDW Coeff of Saadia Plt Count MPV Immature Gran % (Auto) Neut % (Auto) Lymph % (Auto) [place] % (Auto) Eos % (Auto) Baso % (Auto) Neut # (Auto) Lymph # (Auto) [place] # (Auto) Eos # (Auto) Baso # (Auto) Immature Gran # (Auto) Sodium 140 Potassium 2.7 L D Chloride 102 Carbon Dioxide 29 Anion Gap 9.0 BUN 94 H Creatinine 3.22 H D Est Cr Clr Drug Dosing 19.5 Est GFR ( Amer) 15.7 Est GFR (Non-Af Amer) 13.6 BUN/Creatinine Ratio 29.3 H Glucose 81 Calcium 8.2 L D Phosphorus 4.1 D Magnesium 1.6 L Total Bilirubin 0.2 AST 14 L ALT 19 Alkaline Phosphatase 95 Total Protein 4.7 L Total Protein (PEP) Albumin 1.4 L Albumin (PEP) Globulin 3.3 Albumin/Globulin Ratio 0.4 L Xrjey-9-Fwimmgjzn Fczkj-4-Soewxtgfc Uoym-0-Mdguefsx Ldgy-7-Czanlvnx Gamma Globulins Monoclonal Peak 3 Ser Monoclonl Protein Ser Monoclonal Prot 2 PEP Interpretation Procalcitonin 4.62 H U Random Total Protein Ur Creatinine mg/dL Protein/Creatinin Ratio Urine Albumin (%) U Sbdkw-2-Vfvpdzno (%) U Rijgn-7-Isiholid (%) U Beta Globulin (%) U Gamma Globulin (%) U Abnormal Prot Band 1 U Abnormal Prot Band 2 U Abnormal Prot Band 3 Urine PEP Interpret Complement C3 Complement C4 Free [place] LC, Quant Free Lambda LC, Quant Free [place]/Lambda Ratio repeat blood cx's thus far negative PG Care Time/CCT Total # of Minutes Spent Total Time Spent with Patient: Total time spent is greater than 50% in coordination of care (as documented) at patient's floor/unit and/or counseling patient: Coding Level of Care Code 00927 Subseq Hosp Care Lvl 3 Diagnoses Septic shock A41.9; R65.21 Lower extremity cellulitis L03.119 Laterality: unspecified laterality Hyperkalemia E87.5 Acute kidney injury N17.9 HTN (hypertension) I10 Hypertension type: essential hypertension Hyperlipidemia E78.2 Hyperlipidemia type: mixed hyperlipidemia Rheumatoid arthritis M06.9 Rheumatoid arthritis location: unspecified site Rheumatoid factor presence: unspecified presence Hypocalcemia E83.51 Hypokalemia E87.6 Hypomagnesemia E83.42 Candidiasis of mouth and esophagus B37.81; B37.0 Hypoalbuminemia E88.09 Thrombocytopenia D69.6 DVT prophylaxis Z29.9 (1) Rheumatoid arthritis Rheumatoid arthritis location: unspecified site Rheumatoid factor presence: unspecified presence Qualified Code(s): M06.9 - Rheumatoid arthritis, unspecified (2) Lower extremity cellulitis Laterality: unspecified laterality Qualified Code(s): L03.119 - Cellulitis of unspecified part of limb (3) Hyperlipidemia Hyperlipidemia type: mixed hyperlipidemia Qualified Code(s): E78.2 - Mixed hyperlipidemia (4) HTN (hypertension) Hypertension type: essential hypertension Qualified Code(s): I10 - Essential (primary) hypertension
[2019-10-18 18:34] LABS: Ferritin 376.5 ng/ml (8-388); Magnesium 1.9 mg/dl (1.8-2.4); Potassium 3.4 mmol/L (3.5-5.1)
[2019-10-18] MEDS: HYDROXYCHLOROQUINE SULFATE 200 MG TAB PO SCH (22:06)
[2019-10-18] MEDS: ASCORBIC ACID 500 MG TAB PO SCH (22:07)
[2019-10-18] MEDS: NYSTATIN SUSP 500,000 U/5 ML UDC PO SCH (22:07)
[2019-10-19 05:34] LABS: Estimated Average Glucose 120 mg/dl; Hemoglobin A1C 5.8 % (4.5-5.6)
[2019-10-19 06:20] LABS: Hematocrit (blood only) 26.3 % (37-47); Hemoglobin 8.4 g/dL (12.0-16.0); Mean Corpuscular Hemoglobin 25.7 pg (25-34); Mean Corpuscular Hgb Conc 31.9 g/dL (32-36); Mean Corpuscular Volume 80.4 fL (80-100); RDW Coefficient of Variation 16.1 % (11.5-14.5); RDW Standard Deviation 47.5 fL (36.4-46.3); Red Blood Count 3.27 M/uL (4.2-5.4); White Blood Count 10.33 K/uL (4.8-10.8)
[2019-10-19 06:21] LABS: Mean Platelet Volume 9.9 fL (7.4-10.4); Platelet Count 69 K/uL (130-400)
[2019-10-19 06:51] LABS: Calcium 8.4 mg/dl (8.5-10.1); Creatinine Clr Calc Pharmacy 21.9 ml/min; Eosinophils # (auto) 0.11 K/uL (0-0.5); Eosinophils % (auto) 1.1 %; Est GFR (African American) 17.9; Est GFR (Non-African American) 15.4; Immature Granulocytes # (auto) 0.09 K/uL (0.00-0.02); Immature Granulocytes % (auto) 0.9 %; Lymphocytes # (auto) 0.42 K/uL (1.2-3.4); Lymphocytes % (auto) 4.1 %; Monocytes # (auto) 0.15 K/uL (0.11-0.59); Monocytes % (auto) 1.5 %; Neutrophils # (auto) 9.56 K/uL (1.4-6.5); Neutrophils % (auto) 92.4 %; Potassium 3.4 mmol/L (3.5-5.1)
[2019-10-19] MEDS: HYDROCORTISONE SOD 25 MG in SYRINGE 0 ML IV SCH ×3 (08:37→22:11)
[2019-10-19] MEDS: TRAMADOL HCL 50 MG TABLET PO PRN ×2 (08:37→13:09)
[2019-10-19] MEDS: NYSTATIN SUSP 500,000 U/5 ML UDC PO SCH ×4 (08:38→22:12)
[2019-10-19] MEDS: ASCORBIC ACID 500 MG TAB PO SCH ×2 (08:39→22:13)
[2019-10-19] MEDS: ZINC SULFATE 220 MG CAPSULE PO SCH (08:39)
[2019-10-19] MEDS: LACTOBACILLUS ACIDOPHILUS (FLORANEX) TAB PO SCH ×3 (08:39→22:12)
[2019-10-19] MEDS: CEROVITE ADV FORMULA TAB PO SCH (08:39)
[2019-10-19] MEDS: PANTOprazole 40 MG TAB PO SCH (08:39)
[2019-10-19] MEDS: HEPARIN SOD 5,000 UNIT/0.5 ML VIAL SQ SCH ×2 (08:40→22:12)
[2019-10-19] MEDS: cefTRIAXone SODIUM 2,000 MG in DEXTROSE 5% 50 ML IV SCH (08:41)
--- NOTE | 2019-10-19 10:06 | Nephrology Progress Note ---
Date of Service October 19, 2019 Assessment & Plan (1) Acute kidney injury: Non-oliguric. Creatinine continues to improve with supportive care. Volume status is acceptable. I/O + 1.1 L. SPEP and UPEP equivocal. Faint restriction in gamma region. C3/C4 normal. Remains anemic. Tsat 12%. Positive blood cultures 1/2 GNR 10/16 and 10/13 (serratia). BP acceptable. Afebrile. WBC improved. Platelet count down to 69. DIC labs pending. 1 x dose of Venofer 200 mg IV ordered today. Potassium low. Renal recovery, decreased PO intake, stool losses accounted for. Additional 40 mEq PO ordered today. Admission and Anticipated Discharge Date Admission Date: October 14, 2019 Subjective No acute events overnight. Dona remains weak but feels that she continues to improve. Appetite slightly better this morning. No fevers or chills. Breathing comfortably. She describes several 3-4 loose bowel movements daily. Remains on ceftriaxone. Dona feels that discomfort in her legs has markedly improved. Erythema is improving. Review of Systems Review of Systems: All systems reviewed & are unremarkable except as noted in HPI & below Physical Exam Physical Exam: Deferred due to COVID 19 pandemic Constitutional: well developed and + frail appearing Eyes: + anicteric sclerae; no conjunctival abnormality ENMT: Mouth: + dry oral mucous membranes; no oral mucosal abnormality Neck: normal visual inspection and trachea midline Respiratory: normal respiratory effort Auscultation: lungs clear to auscultation bilaterally Cardiovascular: Rate/Rhythm: regular rate Heart Sounds: normal S1 and normal S2 Extremities: + edema Gastrointestinal (Abdomen): Percussion/Palpation: abdomen soft; abdomen nontender Musculoskeletal: Extremities: no cyanosis and no clubbing Skin: + turgor decreased; no rashes Neurologic: Motor/Sensory: no tremor and no asterixis Psychiatric: Orientation: alert and oriented x 3 Results & Data ([facility]) Vital Signs (Past 12 Hours) Vital Signs Temp Pulse Resp BP Pulse Ox 10/19/19 07:27 36.9 C 89 16 121/66 95 10/19/19 03:36 36.8 C 92 H 18 114/68 96 10/18/19 23:13 36.5 C 83 16 105/62 96 Laboratory Results Laboratory Results - last 24 hr 10/18/19 10/18/19 10/19/19 17:42 17:42 05:52 WBC 10.33 RBC 3.27 L Hgb 8.4 L Hct 26.3 L MCV 80.4 MCH 25.7 MCHC 31.9 L RDW Std Deviation 47.5 H RDW Coeff of Saadia 16.1 H Plt Count 69 L MPV 9.9 Immature Gran % (Auto) 0.9 Neut % (Auto) 92.4 Lymph % (Auto) 4.1 [place] % (Auto) 1.5 Eos % (Auto) 1.1 Baso % (Auto) 0.0 Neut # (Auto) 9.56 H Lymph # (Auto) 0.42 L [place] # (Auto) 0.15 Eos # (Auto) 0.11 Baso # (Auto) 0.00 Immature Gran # (Auto) 0.09 H PT INR APTT PTT Ratio Fibrinogen Fibrin Degrad Products D-Dimer Sodium Potassium 3.4 L D Chloride Carbon Dioxide Anion Gap BUN Creatinine Est Cr Clr Drug Dosing Est GFR ( Amer) Est GFR (Non-Af Amer) BUN/Creatinine Ratio Glucose Estimat Average Glucose 120 Hemoglobin A1c 5.8 H Calcium Magnesium 1.9 Iron 14 L Transferrin 82 L Transferrin % Sat 12 L Ferritin 376.5 10/19/19 10/19/19 10/19/19 05:52 09:39 09:39 WBC RBC Hgb Hct MCV MCH MCHC RDW Std Deviation RDW Coeff of Saadia Plt Count MPV Immature Gran % (Auto) Neut % (Auto) Lymph % (Auto) [place] % (Auto) Eos % (Auto) Baso % (Auto) Neut # (Auto) Lymph # (Auto) [place] # (Auto) Eos # (Auto) Baso # (Auto) Immature Gran # (Auto) PT Pending INR Pending APTT Pending PTT Ratio Pending Fibrinogen Pending Fibrin Degrad Products Pending D-Dimer Pending Sodium 140 Potassium 3.4 L Chloride 104 Carbon Dioxide 29 Anion Gap 7.0 BUN 90 H Creatinine 2.90 H D Est Cr Clr Drug Dosing 21.9 Est GFR ( Amer) 17.9 Est GFR (Non-Af Amer) 15.4 BUN/Creatinine Ratio 31.0 H Glucose 92 Estimat Average Glucose Hemoglobin A1c Calcium 8.4 L Magnesium Iron Transferrin Transferrin % Sat Ferritin PG Care Time/CCT Total # of Minutes Spent Total Time Spent with Patient: Total time spent is greater than 50% in coordination of care (as documented) at patient's floor/unit and/or counseling patient: Coding Level of Care Code 97492 Subseq Hosp Care Lvl 3 Diagnoses Acute kidney injury N17.9
[2019-10-19 10:07] LABS: Fibrinogen > 860 mg/dl (184-400); INR 1.1 (0.9-1.1); Partial Thromboplastin Ratio 1.4; Partial Thromboplastin Time 39.4 Seconds (21.0-31.0); Prothrombin Time 11.1 Seconds (9.0-12.0)
[2019-10-19 10:11] LABS: D Dimer 3160 ug/L FEU (0-500)
[2019-10-19] MEDS ORDERED: IRON SUCROSE 200 MG in 0.9 % SODIUM CHLORIDE 100 ML IV ONE (10:15)
[2019-10-19] MEDS ORDERED: POTASSIUM CHLORIDE 20 MEQ TABCR PO ONE (10:15)
[2019-10-19] MEDS ORDERED: DAPTOMYCIN CONSULT ACTIVE PRN (17:15)
[2019-10-19 17:17] LABS: Platelet Count 76 K/uL (130-400)
[2019-10-19] MEDS ORDERED: ERTAPENEM SODIUM 1,000 MG in SODIUM CHLORIDE 0.9% 50 ML IV SCH (18:00)
[2019-10-19] MEDS: DAPTOmycin 500 MG in SYRINGE 0 ML IV SCH (19:23)
[2019-10-19] MEDS: ERTAPENEM SODIUM 500 MG in SODIUM CHLORIDE 0.9% 50 ML IV SCH (19:23)
--- NOTE | 2019-10-19 20:59 | Ultrasound Report ---
US venous doppler LE BI HISTORY: Pain. Edema. severe edema, eval for DVT COMPARISON STUDY: None. FINDINGS: There is normal compressibility, flow, and augmentation within the bilateral lower extremit y deep venous systems. IMPRESSION: No DVT within the right or left lower extremity. ACT 112: Negative or not required by law. The above report was generated using voice recognition software. It may contain grammatical, syntax or spelling errors. Electronically signed by: Rocael Carver M.D. 10/19/2019 8:57 PM
[2019-10-19] MEDS: HYDROXYCHLOROQUINE SULFATE 200 MG TAB PO SCH (22:23)
--- NOTE | 2019-10-19 22:24 | Hospitalist Progress Note ---
Date of Service October 19, 2019 Assessment & Plan (1) Septic shock: Required admission to ICU & pressors. Pressors weaned off 10/16. Source - b/l LE cellulitis. Cont stress dose steroids but lower hydrocortisone to 25mg IV BID (from TID dosing). Antibiotics narrowed to IV rocephin 2 grams daily while in ICU. repeat blood cultures from 10/16 initially returned positive today and thus I obtained another set of cultures this afternoon. lab then corrected this culture - apparently was NOT positive. I am concerned that right leg is worsening - see "cellulitis" below. (2) Lower extremity cellulitis: Failed multiple outpatient antibiotics since August including clinda, doxy, keflex. Currently on rocephin 2gm IV daily. Right leg is WORSE today. I reviewed previous culture results - has had MDR morganella and coag neg staph from leg wound culture in 2019. Morganella was sensitive to ertapenem. Will broaden the rocephin to ertapenem once daily. Will add daptomycin for coag neg staph coverage, enterococcal coverage, etc. If she fails to improve with these changes then would need to consider adding pseudomonas coverage. Prior arterial doppler in 2019 showed ?PAD. Will repeat the dopplers b/l to ensure no PAD contributing to poor infection clearance. Venous disease heavily contributing to her issues as well as chronic immune suppression with prednisone. Anticipate prolonged course of IV antibiotics (14 days?) followed by PO antib iotic course. (3) Hyperkalemia: 2nd to acute renal failure. resolved, now w/ hypokalemia - see below. (4) Acute kidney injury: Baseline cr 1.3. Cr 7.9 on admission. Likely sepsis-associated ATN. Good UOP and Cr continues to improve daily. Appreciate nephrology consult/recs. BMP am. (5) HTN (hypertension): continue to hold home medications due to low-normal BPs. (6) Hyperlipidemia: Holding statin. Resume at discharge. (7) Rheumatoid arthritis: Chronic prednisone use - 7.5mg daily. Now on stress doses of steroid due to sepsis. Continue Hydroxychloroquine. Also takes leflunomide at home. (8) Hypocalcemia: total calcium 8.2. correcting for low albumin it is about 10. resolved. (9) Hypokalemia: nearly normal. replace PO. repeat BMP am. (10) Hypomagnesemia: Replaced and normal. (11) Candidiasis of mouth and esophagus: 2nd to chronic steroids/immunosuppressants. cont nystatin solution 5cc qid. (12) Hypoalbuminemia: Severe. Normal albumin in August. Start boost BID. Added MVI, vit C, and zinc for wound healing and overall health. 2nd to poor oral intake?? optomechanical engineer saw today in consult. this is likely the main reason for severe edema along with venous insufficiency. will check venous dopplers just to make sure NO DVT is present. (13) Thrombocytopenia: Suspect sepsis-associated. DIC w/u negative today. Still too early for HIT (platelets dropped within the first 3 days of the hospital stay) but not completely ruled out. Repeat platelets tonight and in am. Cont heparin cautiously. If any worsening then check HIT ab. (14) DVT prophylaxis: Heparin BID cont PT/OT; I strongly advised rehab post-d/c in light of numerous issues, severe deconditioning, etc. left message for Suraj, her brother - 10/18/19 Admission and Anticipated Discharge Date Admission Date: October 14, 2019 Subjective patient weak, tired; appetite fair. multiple questions about length of her IV antibiotic course, does she need rehab, etc. very tearful during the visit today. thinks right leg looks worse but not painful in the thigh. most discomfort is in the right sanchez region. tele with NSR overnight. some intermittent mild bleeding from ulcerations on legs. Review of Systems Constitutional: + fatigue and + anorexia; no fever and no chills Ear, Nose, Mouth, Throat: no dysphagia Respiratory: no cough and no dyspnea Cardiovascular: no chest pain Gastrointestinal: no abdominal pain and no diarrhea/loose stools Physical Exam Constitutional: + morbidly obese and + frail appearing; no acute distress and no altered mental status tearful ENMT: Mouth: + oral mucosal abnormality (thrush plaques buccal mucosa - no change); oral mucous membranes not dry Respiratory: normal respiratory effort, lungs clear to auscultation Auscultation: + diminished lung sounds (bases) Cardiovascular: Rate/Rhythm: regular rate and regular rhythm Heart Sounds: normal S1, normal S2 and + murmur (1/6 systolic LSB) Vessels: posterior tibial pulses present and dorsalis pedis pulses present; no JVD Extremities: + edema (b/l legs - 3+ ) Gastrointestinal (Abdomen): normal bowel sounds, soft, nontender, no hepatosplenomegaly Skin: erythema of medial right thigh is much worse today, extending more medially and laterally relative to exam on 10/17. erythema on right sanchez mildly worse, extending proximally past the demarkation line placed at admission. erythema left leg retreating from demarkation line near the tibial plateau. dressings b/l are wet with serous fluid. there is macerated skin medial right thigh, likely from a popped superficial venous blister. Psychiatric: Orientation: alert and oriented x 3 Affect: + depressed affect and + tearful affect Results & Data Results & Data ([facility]) Vital Signs (Past 12 Hours) Vital Signs Temp Pulse Pulse Resp BP Pulse Ox 10/19/19 21:37 102 H 10/19/19 19:55 36.7 C 78 18 123/78 99 10/19/19 15:10 37.2 C 89 20 107/65 96 10/19/19 11:16 37.2 C 91 H 19 113/65 97 Laboratory Results Laboratory Results - last 24 hr 10/18/19 10/18/19 10/19/19 17:42 17:42 05:52 WBC 10.33 RBC 3.27 L Hgb 8.4 L Hct 26.3 L MCV 80.4 MCH 25.7 MCHC 31.9 L RDW Std Deviation 47.5 H RDW Coeff of Saadia 16.1 H Plt Count 69 L MPV 9.9 Immature Gran % (Auto) 0.9 Neut % (Auto) 92.4 Lymph % (Auto) 4.1 [place] % (Auto) 1.5 Eos % (Auto) 1.1 Baso % (Auto) 0.0 Neut # (Auto) 9.56 H Lymph # (Auto) 0.42 L [place] # (Auto) 0.15 Eos # (Auto) 0.11 Baso # (Auto) 0.00 Immature Gran # (Auto) 0.09 H PT INR APTT PTT Ratio Fibrinogen Fibrin Degrad Products D-Dimer Sodium Potassium 3.4 L D Chloride Carbon Dioxide Anion Gap BUN Creatinine Est Cr Clr Drug Dosing Est GFR ( Amer) Est GFR (Non-Af Amer) BUN/Creatinine Ratio Glucose Estimat Average Glucose 120 Hemoglobin A1c 5.8 H Calcium Magnesium 1.9 Iron 14 L Transferrin 82 L Transferrin % Sat 12 L Ferritin 376.5 10/19/19 10/19/19 10/19/19 05:52 09:39 09:39 WBC RBC Hgb Hct MCV MCH MCHC RDW Std Deviation RDW Coeff of Saadia Plt Count MPV Immature Gran % (Auto) Neut % (Auto) Lymph % (Auto) [place] % (Auto) Eos % (Auto) Baso % (Auto) Neut # (Auto) Lymph # (Auto) [place] # (Auto) Eos # (Auto) Baso # (Auto) Immature Gran # (Auto) PT 11.1 INR 1.1 APTT 39.4 H PTT Ratio 1.4 Fibrinogen > 860 H Fibrin Degrad Products 10-40 H D-Dimer 3160 H* Sodium 140 Potassium 3.4 L Chloride 104 Carbon Dioxide 29 Anion Gap 7.0 BUN 90 H Creatinine 2.90 H D Est Cr Clr Drug Dosing 21.9 Est GFR ( Amer) 17.9 Est GFR (Non-Af Amer) 15.4 BUN/Creatinine Ratio 31.0 H Glucose 92 Estimat Average Glucose Hemoglobin A1c Calcium 8.4 L Magnesium Iron Transferrin Transferrin % Sat Ferritin 10/19/19 16:23 WBC RBC Hgb Hct MCV MCH MCHC RDW Std Deviation RDW Coeff of Saadia Plt Count 76 L MPV Immature Gran % (Auto) Neut % (Auto) Lymph % (Auto) [place] % (Auto) Eos % (Auto) Baso % (Auto) Neut # (Auto) Lymph # (Auto) [place] # (Auto) Eos # (Auto) Baso # (Auto) Immature Gran # (Auto) PT INR APTT PTT Ratio Fibrinogen Fibrin Degrad Products D-Dimer Sodium Potassium Chloride Carbon Dioxide Anion Gap BUN Creatinine Est Cr Clr Drug Dosing Est GFR ( Amer) Est GFR (Non-Af Amer) BUN/Creatinine Ratio Glucose Estimat Average Glucose Hemoglobin A1c Calcium Magnesium Iron Transferrin Transferrin % Sat Ferritin PG Care Time/CCT Total # of Minutes Spent Total Time Spent with Patient: Total time spent is greater than 50% in coordination of care (as documented) at patient's floor/unit and/or counseling patient: Coding Level of Care Code 75118 Subseq Hosp Care Lvl 3 Diagnoses Septic shock A41.9; R65.21 Lower extremity cellulitis L03.119 Laterality: unspecified laterality Hyperkalemia E87.5 Acute kidney injury N17.9 HTN (hypertension) I10 Hypertension type: essential hypertension Hyperlipidemia E78.2 Hyperlipidemia type: mixed hyperlipidemia Rheumatoid arthritis M06.9 Rheumatoid arthritis location: unspecified site Rheumatoid factor presence: unspecified presence Hypocalcemia E83.51 Hypokalemia E87.6 Hypomagnesemia E83.42 Candidiasis of mouth and esophagus B37.81; B37.0 Hypoalbuminemia E88.09 Thrombocytopenia D69.6 DVT prophylaxis Z29.9 (1) Lower extremity cellulitis Laterality: unspecified laterality Qualified Code(s): L03.119 - Cellulitis of unspecified part of limb (2) HTN (hypertension) Hypertension type: essential hypertension Qualified Code(s): I10 - Essential (primary) hypertension (3) Hyperlipidemia Hyperlipidemia type: mixed hyperlipidemia Qualified Code(s): E78.2 - Mixed hyperlipidemia (4) Rheumatoid arthritis Rheumatoid arthritis location: unspecified site Rheumatoid factor presence: unspecified presence Qualified Code(s): M06.9 - Rheumatoid arthritis, unspecified
[2019-10-20 06:29] LABS: Hemoglobin 8.5 g/dL (12.0-16.0); Mean Corpuscular Hemoglobin 25.4 pg (25-34); Mean Corpuscular Hgb Conc 30.4 g/dL (32-36); Mean Corpuscular Volume 83.8 fL (80-100); RDW Coefficient of Variation 16.1 % (11.5-14.5); RDW Standard Deviation 49.6 fL (36.4-46.3); Red Blood Count 3.34 M/uL (4.2-5.4); White Blood Count 14.41 K/uL (4.8-10.8)
[2019-10-20 06:44] LABS: Mean Platelet Volume 10.2 fL (7.4-10.4); Platelet Count 79 K/uL (130-400)
[2019-10-20 06:46] LABS: Dohle Bodies 1+; Eosinophils # (auto) 0.07 K/uL (0-0.5); Eosinophils % (auto) 0.5 %; Immature Granulocytes # (auto) 0.12 K/uL (0.00-0.02); Immature Granulocytes % (auto) 0.8 %; Lymphocytes # (auto) 0.41 K/uL (1.2-3.4); Lymphocytes % (auto) 2.8 %; Monocytes # (auto) 0.24 K/uL (0.11-0.59); Monocytes % (auto) 1.7 %; Neutrophils # (auto) 13.57 K/uL (1.4-6.5); Neutrophils % (auto) 94.2 %; Ovalocytes 1+; Toxic Granulation 1+
[2019-10-20 07:06] LABS: Albumin Level 1.4 gm/dl (3.4-5.0); BUN Creatinine Ratio 31.3 (10-20); Calcium 8.8 mg/dl (8.5-10.1); Creatinine Clr Calc Pharmacy 25.1 ml/min; Est GFR (African American) 21.1; Est GFR (Non-African American) 18.2; Magnesium 1.6 mg/dl (1.8-2.4); Potassium 3.4 mmol/L (3.5-5.1)
[2019-10-20 07:08] LABS: Albumin Globulin Ratio 0.4 (0.9-2); Bilirubin,Total 0.4 mg/dl (0.2-1); Globulin 3.9 gm/dl (2.5-4.0); Total Protein 5.3 gm/dl (6.4-8.2)
[2019-10-20] MEDS ORDERED: POTASSIUM CHLORIDE 20 MEQ TABCR PO STA (08:05)
--- NOTE | 2019-10-20 08:16 | Ultrasound Report ---
US arterial duplex LE BI CLINICAL HISTORY: refractory b/l cellulitis; eval PAD claudication COMPARISON STUDY: 08/11/2018 FINDINGS: monophasic waveforms of the arterial structures of the right thigh. Monophasic waveforms of the runoff vessels of the right lower leg. Triphasic waveforms of the proximal left thigh arterial vasculature. Monophasic waveforms involving the runoff vessels of the left lower leg. Ankle brachial indices could not be accurately obtained due to the presence of bone due to bandages t hroughout. IMPRESSION: 1. Limited study as ankle-brachial indices could not BE obtained. 2. Monophasic waveforms throughout the entire right leg as well as the distal aspect of the left leg. 3. This raises the possibility of significant multifocal arterial occlusive change with right leg inf low disease. 4. No major change compared to the prior study. ACT 112: Negative or not required by law. The above report was generated using voice recognition software. It may contain grammatical, syntax or spelling errors. Electronically signed by: Rocael Carver M.D. 10/20/2019 8:15 AM
[2019-10-20] MEDS: NYSTATIN SUSP 500,000 U/5 ML UDC PO SCH ×4 (08:27→20:52)
[2019-10-20] MEDS: HYDROCORTISONE SOD 25 MG in SYRINGE 0 ML IV SCH ×2 (08:28→20:52)
[2019-10-20] MEDS: ASCORBIC ACID 500 MG TAB PO SCH ×2 (08:28→20:52)
[2019-10-20] MEDS: CEROVITE ADV FORMULA TAB PO SCH (08:28)
[2019-10-20] MEDS: LACTOBACILLUS ACIDOPHILUS (FLORANEX) TAB PO SCH ×3 (08:29→20:52)
[2019-10-20] MEDS: HEPARIN SOD 5,000 UNIT/0.5 ML VIAL SQ SCH ×2 (08:29→20:52)
[2019-10-20] MEDS: PANTOprazole 40 MG TAB PO SCH (08:30)
[2019-10-20] MEDS: ZINC SULFATE 220 MG CAPSULE PO SCH (08:30)
[2019-10-20] MEDS: MAGNESIUM SULFATE / D5W 1 GM/100 ML BAG IV SCH (09:50)
--- NOTE | 2019-10-20 10:32 | Nephrology Progress Note ---
Date of Service October 20, 2019 Assessment & Plan (1) Acute kidney injury: Non-oliguric. Creatinine continues to improve with supportive care. Volume status is acceptable. Slightly negative fluid balance in past 24 hours. Weight 115.6-->115.2 kg. Evidence of DIC on labs. No bleeding complications. Platelet count relatively stable. SPEP and UPEP equivocal. Faint restriction in gamma region. C3/C4 normal. Anemic; Tsat 12%. Positive blood cultures 1/2 GNR 10/16 and 10/13 (serratia). Repeat blood cultures pending. BP acceptable. Platelet count down to 69. IV iron deferred due to persistent evidence of infection. Potassium remains low. Hypomagnesemic this morning. Additional 2 grams IV MgSO4 and 40 mEq oral KCl provided this AM. Repeat metabolic profile ordered for tomorrow AM. No additional recommendations at this time. I will follow peripherally. Call with questions or concerns. Please coordinate outpatient nephrology follow up once patient is ready for discharge. Admission and Anticipated Discharge Date Admission Date: October 14, 2019 Subjective Very limited interaction with patient this morning as she was working with physical therapy. She remains weak but overall reports improvement. Appetite fair. No fevers. Breathing comfortably. Abx switched from Rocephin to ertapenem + daptomycin yesterday. Review of Systems Review of Systems: Other (limited as patient was working with physical therapy at time of assessment) Physical Exam Physical Exam: Deferred Results & Data ([facility]) Vital Signs (Past 12 Hours) Vital Signs Temp Pulse Pulse Resp BP Pulse Ox 10/20/19 07:56 36.8 C 88 18 126/75 98 10/20/19 03:23 36.7 C 86 16 126/66 97 10/19/19 23:59 78 10/19/19 22:59 36.7 C 95 H 16 115/74 95 Laboratory Results Laboratory Results - last 24 hr 10/19/19 10/19/19 10/20/19 09:39 16:23 05:54 WBC 14.41 H RBC 3.34 L Hgb 8.5 L Hct 28.0 L MCV 83.8 MCH 25.4 MCHC 30.4 L RDW Std Deviation 49.6 H RDW Coeff of Saadia 16.1 H Plt Count 76 L 79 L MPV 10.2 Immature Gran % (Auto) 0.8 Neut % (Auto) 94.2 Lymph % (Auto) 2.8 [place] % (Auto) 1.7 Eos % (Auto) 0.5 Baso % (Auto) 0.0 Neut # (Auto) 13.57 H Lymph # (Auto) 0.41 L [place] # (Auto) 0.24 Eos # (Auto) 0.07 Baso # (Auto) 0.00 Immature Gran # (Auto) 0.12 H Toxic Granulation 1+ Dohle Bodies 1+ Ovalocytes 1+ Fibrin Degrad Products 10-40 H Sodium Potassium Chloride Carbon Dioxide Anion Gap BUN Creatinine Est Cr Clr Drug Dosing Est GFR ( Amer) Est GFR (Non-Af Amer) BUN/Creatinine Ratio Glucose Calcium Phosphorus Magnesium Total Bilirubin AST ALT Alkaline Phosphatase Total Protein Albumin Globulin Albumin/Globulin Ratio 10/20/19 05:54 WBC RBC Hgb Hct MCV MCH MCHC RDW Std Deviation RDW Coeff of Saadia Plt Count MPV Immature Gran % (Auto) Neut % (Auto) Lymph % (Auto) [place] % (Auto) Eos % (Auto) Baso % (Auto) Neut # (Auto) Lymph # (Auto) [place] # (Auto) Eos # (Auto) Baso # (Auto) Immature Gran # (Auto) Toxic Granulation Dohle Bodies Ovalocytes Fibrin Degrad Products Sodium 138 Potassium 3.4 L Chloride 104 Carbon Dioxide 27 Anion Gap 7.0 BUN 79 H Creatinine 2.53 H D Est Cr Clr Drug Dosing 25.1 Est GFR ( Amer) 21.1 Est GFR (Non-Af Amer) 18.2 BUN/Creatinine Ratio 31.3 H Glucose 98 Calcium 8.8 Phosphorus 4.0 Magnesium 1.6 L Total Bilirubin 0.4 AST 11 L ALT 26 Alkaline Phosphatase 160 H Total Protein 5.3 L Albumin 1.4 L Globulin 3.9 Albumin/Globulin Ratio 0.4 L PG Care Time/CCT Total # of Minutes Spent Total Time Spent with Patient: Total time spent is greater than 50% in coordination of care (as documented) at patient's floor/unit and/or counseling patient: Coding Level of Care Code 65376 Subseq Hosp Care Lvl 3 Diagnoses Acute kidney injury N17.9
[2019-10-20 10:57] LABS: Dohle Bodies 1+; Toxic Vacuolation 1+
[2019-10-20] MEDS: TRAMADOL HCL 50 MG TABLET PO PRN (11:19)
--- NOTE | 2019-10-20 14:53 | Hospitalist Progress Note ---
Date of Service October 20, 2019 Assessment & Plan (1) Septic shock: Required admission to ICU & pressors. Pressors weaned off 10/16. Source - b/l LE cellulitis. Cont stress dose steroids w/ hydrocortisone 25mg IV BID but can return to prednisone home dose tomorrow as BPs good/stable for days Antibiotics narrowed to IV rocephin 2 grams daily while in ICU. repeat blood cultures from 10/16 initially returned positive and obtained another set of cultures on 10/18, but was false positive l (2) Lower extremity cellulitis: Failed multiple outpatient antibiotics since August including clinda, doxy, keflex. Was on rocephin 2gm IV daily here but had spreading of cellulitis and changed to Dapto and Ertapenem. With blister on rt medial thigh--> could be Staph Check wound culture Right leg seems stable from yesterday to slightly improved No fevers I reviewed previous culture results - has had MDR morganella and coag neg staph from leg wound culture in 2019. Morganella was sensitive to ertapenem. If she fails to improve with these changes then would need to consider adding pseudomonas coverage. Prior arterial doppler in 2019 showed ?PAD. Repeat Dopplers b/l here with monophasic flow on rt--> could PAD contributing to poor infection clearance. She has no claudication but could be venous insufficiency contributing? -consult Interventional Cardiology for eval to see if intervention indicated Venous disease heavily contributing to her issues as well as chronic immune suppression with prednisone. Anticipate prolonged course of IV antibiotics (14 days?) followed by PO antibiotic course. (3) Hyperkalemia: 2nd to acute renal failure. resolved, now w/ hypokalemia - see below. (4) Acute kidney injury: Baseline cr 1.3. Cr 7.9 on admission. Likely sepsis-associated ATN. Good UOP and Cr continues to improve daily. Appreciate nephrology consult/recs. BMP am. (5) HTN (hypertension): continue to hold home medications due to low-normal BPs. (6) Hyperlipidemia: Holding statin. Resume at discharge. (7) Rheumatoid arthritis: Chronic prednisone use - 7.5mg daily. Now on stress doses of steroid due to sepsis as above and converting to home po prednisone tomorrow Continue Hydroxychloroquine. Also takes leflunomide at home. (8) Hypocalcemia: total calcium 8.2. correcting for low albumin it is about 10. resolved. (9) Hypokalemia: nearly normal. replace PO. repeat BMP am. (10) Hypomagnesemia: Replaced and normal. (11) Candidiasis of mouth and esophagus: 2nd to chronic steroids/immunosuppressants. cont nystatin solution 5cc qid. (12) Hypoalbuminemia: Severe. Normal albumin in August. Started boost BID. Added MVI, vit C, and zinc for wound healing and overall health. 2nd to poor oral intake and illness planer setter saw here in consult. this is likely the main reason for severe edema along with venous insufficiency. checked venous dopplers just to make sure NO DVT is present-negative (13) Thrombocytopenia: Suspect sepsis-associated. With evidence of DIC here not likely HIT (platelets dropped within the first 3 days of the hospital stay) and improving today follow CBC Cont heparin cautiously. If any worsening then check HIT ab. (14) DVT prophylaxis: Heparin BID cont PT/OT; I strongly advised rehab post-d/c in light of numerous issues, severe deconditioning, etc. Admission and Anticipated Discharge Date Admission Date: October 14, 2019 Subjective Pt nervous about her leg infection. The legs were uncovered when I saw her and discussed her care with oral communication instructor at the bedside and previous hospitalist. Remains afebrile. No CP or SOB. Tele with NSR, 70-80s, PACs Review of Systems Review of Systems: All systems reviewed & are unremarkable except as noted in HPI & below Physical Exam Constitutional: WD/WN, vitals as above + obese Eyes: + anicteric sclerae Neck: trachea midline, no thyromegaly Respiratory: normal respiratory effort, lungs clear to auscultation Cardiovascular: RRR, no murmur, no edema Chest (Breasts): Chest: normal inspection of chest Gastrointestinal (Abdomen): normal bowel sounds, soft, nontender, no hepatosplenomegaly Musculoskeletal: Extremities: + extremities abnormal to inspection (bilat edema 3+ to thighs) and no cyanosis Skin: + erythema (erythema bilat legs and spreading to right upper thigh,blister rt medial th) slightly receded from previous pen line Neurologic: moves all extremities and awake; no focal motor deficits Psychiatric: A+Ox3, euthymic affect Lymphatic: no lymphedema Results & Data Results & Data ([facility]) Vital Signs (Past 12 Hours) Vital Signs Temp Pulse Resp BP Pulse Ox 10/20/19 11:23 36.8 C 87 17 110/70 99 10/20/19 07:56 36.8 C 88 18 126/75 98 10/20/19 03:23 36.7 C 86 16 126/66 97 Laboratory Results labs reviewed PG Care Time/CCT Total # of Minutes Spent Total Time Spent with Patient: Total time spent is greater than 50% in coordination of care (as documented) at patient's floor/unit and/or counseling patient: Coding Level of Care Code 88566 Subseq Hosp Care Lvl 3 Diagnoses Septic shock A41.9; R65.21 Lower extremity cellulitis L03.119 Laterality: unspecified laterality Hyperkalemia E87.5 Acute kidney injury N17.9 HTN (hypertension) I10 Hypertension type: essential hypertension Hyperlipidemia E78.2 Hyperlipidemia type: mixed hyperlipidemia Rheumatoid arthritis M06.9 Rheumatoid arthritis location: unspecified site Rheumatoid factor presence: unspecified presence Hypocalcemia E83.51 Hypokalemia E87.6 Hypomagnesemia E83.42 Candidiasis of mouth and esophagus B37.81; B37.0 Hypoalbuminemia E88.09 Thrombocytopenia D69.6 DVT prophylaxis Z29.9 (1) Rheumatoid arthritis Rheumatoid arthritis location: unspecified site Rheumatoid factor presence: unspecified presence Qualified Code(s): M06.9 - Rheumatoid arthritis, unspecified (2) Lower extremity cellulitis Laterality: unspecified laterality Qualified Code(s): L03.119 - Cellulitis of unspecified part of limb (3) Hyperlipidemia Hyperlipidemia type: mixed hyperlipidemia Qualified Code(s): E78.2 - Mixed hyperlipidemia (4) HTN (hypertension) Hypertension type: essential hypertension Qualified Code(s): I10 - Essential (primary) hypertension
[2019-10-20] MEDS: ERTAPENEM SODIUM 500 MG in SODIUM CHLORIDE 0.9% 50 ML IV SCH (17:06)
[2019-10-20] MEDS: HYDROXYCHLOROQUINE SULFATE 200 MG TAB PO SCH (20:51)
[2019-10-21 06:52] LABS: Est GFR (African American) 23.9; Est GFR (Non-African American) 20.6
[2019-10-21] MEDS: HYDROCORTISONE SOD 25 MG in SYRINGE 0 ML IV SCH (08:26)
[2019-10-21] MEDS: NYSTATIN SUSP 500,000 U/5 ML UDC PO SCH ×4 (08:27→20:46)
[2019-10-21] MEDS: ASCORBIC ACID 500 MG TAB PO SCH ×2 (08:27→20:47)
[2019-10-21] MEDS: ZINC SULFATE 220 MG CAPSULE PO SCH (08:28)
[2019-10-21] MEDS: PANTOprazole 40 MG TAB PO SCH (08:28)
[2019-10-21] MEDS: HEPARIN SOD 5,000 UNIT/0.5 ML VIAL SQ SCH ×2 (08:28→20:46)
[2019-10-21] MEDS: LACTOBACILLUS ACIDOPHILUS (FLORANEX) TAB PO SCH ×3 (08:29→20:47)
[2019-10-21] MEDS: CEROVITE ADV FORMULA TAB PO SCH (08:29)
[2019-10-21] MEDS: TRAMADOL HCL 50 MG TABLET PO PRN ×2 (09:37→15:20)
[2019-10-21] MEDS: predniSONE 2.5 MG TAB PO SCH (09:38)
[2019-10-21 10:48] LABS: Basophils # (auto) 0.01 K/uL (0-0.2); Basophils % (auto) 0.1 %; Eosinophils # (auto) 0.14 K/uL (0-0.5); Eosinophils % (auto) 1.3 %; Hematocrit (blood only) 24.5 % (37-47); Hemoglobin 7.4 g/dL (12.0-16.0); Immature Granulocytes # (auto) 0.08 K/uL (0.00-0.02); Immature Granulocytes % (auto) 0.7 %; Lymphocytes # (auto) 0.36 K/uL (1.2-3.4); Lymphocytes % (auto) 3.3 %; Mean Corpuscular Hemoglobin 25.4 pg (25-34); Mean Corpuscular Hgb Conc 30.2 g/dL (32-36); Mean Corpuscular Volume 84.2 fL (80-100); Mean Platelet Volume 10.3 fL (7.4-10.4); Monocytes # (auto) 0.29 K/uL (0.11-0.59); Monocytes % (auto) 2.6 %; Neutrophils # (auto) 10.08 K/uL (1.4-6.5); Platelet Count 103 K/uL (130-400); RDW Coefficient of Variation 16.1 % (11.5-14.5); RDW Standard Deviation 50.1 fL (36.4-46.3); Red Blood Count 2.91 M/uL (4.2-5.4); White Blood Count 10.96 K/uL (4.8-10.8)
[2019-10-21 10:55] LABS: BUN Creatinine Ratio 31.2 (10-20); Calcium 8.6 mg/dl (8.5-10.1); Creatinine Clr Calc Pharmacy 28.5 ml/min; Est GFR (African American) 24.4; Est GFR (Non-African American) 21.1; Potassium 3.8 mmol/L (3.5-5.1)
--- NOTE | 2019-10-21 12:26 | Vascular Medicine Consultation ---
Date of Consultation October 21, 2019 Assessment & Plan (1) Cellulitis of both lower extremities: --Venous stasis ulcers bilaterally 2. Sepsis 3. Suspected chronic venous insufficiency 4. Peripheral arterial disease 5. Renal insufficiency 6. Anemia 7. Rheumatoid arthritis 8. Hypertension 9. Dyslipidemia Patient was admitted with septic shock likely secondary to bilateral lower extremity cellulitis. Fortunately is now off pressors and stable in the PCU. Renal function improving but not back to baseline. Continues on IV antibiotics via PICC line. She has a history of chronic lower extremity edema with recurrent cellulitis. Suspect her edema is secondary to chronic venous insufficiency and lymphedema. Although her arterial duplex is suggestive of arterial disease her wounds appear largely venous in nature. May need additional imaging at some point to assess for inflow disease. Doubtful that an ultrasound would provide sufficient images given her body habitus and would avoid CTA or angiography at this time given her renal function. Will plan to perform lower extremity venous reflux study and check TBI/toe pressures as an outpatient. Thank you for allowing us to participate in the care of this patient. Supervising Physician Co-Signing Physician Notes Patient seen and examined. Agree with assessment and plan as outlined by SHELLY Mae. Legs appear well perfused today and no prior claudication symptoms. Reviewed arterial and venous duplex studies. Report raised concern for RT inflow disease. Arterial study technically limited. 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 Less convinced that actually has proximal obstructive disease. Options to further visualize limited in the setting of patients recovering renal function and body habitus. Regardless feel that at present arterial perfusion should be adequate for wound healing. Will plan to confirm with outpatient toe pressures and TBI. No need plan for arterial intervention at this time. May have some superficial venous disease contributing to lower extremity swelling and skin breakdown. GSVs appear dilated bilaterally. Will obtain venous reflux study as an outpatient and pursue invasive superficial venous intervention if candidate. For now feel current compression with tubigrips is appropriate and can increase compressive therapy pending Toe pressures. Case discussed with wound team and Dr. Cleaning. History of Present Illness Attending Physician: Galina Cleaning MD History of Present Illness Ms. Villalpando is a 73 year old female being seen today for evaluation of vascular disease. Medical significant for peripheral arterial disease, history of lower extremity cellulitis, rheumatoid arthritis, anemia, dyslipidemia and hypertension. In August 2019 she developed bilateral lower extremity wounds with weeping and erythema. She saw her PCP and was treated with multiple antibiotics including doxycycline, Keflex and clindamycin without improvement. No preceding trauma. On 10/11/19 she was seen in the ED and given antifungal/steroid cream. She saw her billing specialist on 10/14/19 and was sent to the ED for further evaluation. She was hypotensive and tachycardic upon arrival, felt to be in septic shock. She had evidence of acute renal injury with a serum creatinine of 7.9. She required pressors for a period of time in the ICU. Was initiated on broad spectrum antibiotics, currently on Daptomycin and Ertapenem. Initially one of two blood cultures positive for Serratia, repeat blood cultures negative. Wound culture yesterday growing gram negative bacilli. Fortunately she has been titrated off Levophed and has been transferred to PCU. Renal function improving and did not require dialysis. Venous duplex with no evidence of DVT. Lower extremity arterial duplex shows monophasic waveforms throughout the right lower extremity suggestive of possible inflow disease and monophasic waveforms in the left tibials. She reports chronic lower extremity edema which is typically controlled with compression stockings. She has a history of lower extremity cellulitis requiring hospitalization last July but reports her legs healed quickly with antibiotics. No history of DVT. No prior vascular procedures. At baseline is fairly active, she lives alone and does the majority of her housework. She denies claudication symptoms. Currently her legs are very painful due to her ulcers but typically does not have any lower extremity discomfort. Social history: Single. Lives alone, brother has apartment on her property. No children. Retired from [employer] No tobacco, alcohol or drug use. Allergies Allergy/AdvReac Type Severity Reaction Status Date / Time cefadroxil Allergy Intermediate Rash Verified 10/14/19 12:42 Sulfa (Sulfonamide Allergy Unknown RASH Verified 10/14/19 12:42 Antibiotics) oxycodone AdvReac Unknown NAUSEA Verified 10/14/19 12:42 Home Medications Home Medications Medication Instructions Recorded Confirmed Type aspirin [Ecotrin] 325 mg PO QAM 08/06/18 10/14/19 History hydroxychloroquine 400 mg PO HS 08/06/18 10/14/19 History leflunomide 20 mg PO QAM 08/06/18 10/14/19 History pravastatin 20 mg PO QPM 08/06/18 10/14/19 History prednisone 2.5 mg PO QAM 08/06/18 10/14/19 History prednisone 5 mg PO QAM 08/06/18 10/14/19 History losartan 75 mg PO QAM #30 tab 08/16/18 10/14/19 Rx nystatin 1 applic TOPICAL TID 10/21/18 10/14/19 History clotrimazole-betamethasone 1 appln TOP BID 14 Days #45 gm 10/11/19 10/14/19 Rx spironolactone 25 mg PO DAILY 10/14/19 10/14/19 History Patient History Medical History Anemia Cancer MELANOMA Cellulitis BILATERAL LEGS AND FEET, INPATIENT [facility] (JULY 2018) Chronic steroid use Fracture of sacrum BILATERAL. ~2016, PHYSICAL THERAPY. 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 Feels Safe at Home: Yes Smoking Status: Never smoker Second Hand Exposure: No ; Hx Alcohol Use: No Hx Substance Use: No Review of Systems Review of Systems: All systems reviewed & are unremarkable except as noted in HPI & below Physical Exam Physical Exam: General: No acute distress, comfortable. HEENT: Head is normal. PERRLA. EOMI. Sclerae anicteric. Ears, nose and throat unremarkable. Mucous membranes moist. Neck: JVD difficult to assess. Lungs: Clear to auscultation bilaterally without rales, rhonchi or wheezes. Cardiac: Tachycardic. S1-S2 normal. Grade 1/6 systolic murmur. Abdomen: Soft and nontender. Bowel sounds normal. No mass or organomegaly. No abdominal bruit. Extremities/vascular: --2-3+ dense peripheral edema to the thighs --Thickened skin with chronic venous stasis changes --Extensive erythema --Multiple shallow ulcerations bilateral lower extremities with weeping --Blister right medial thigh --Radial pulses 2+ bilaterally --Femoral pulses 2+ bilaterally --Popliteal pulses difficult to palpate --DP pulses intact bilaterally, PT difficult to palpate due to edema --Cap refill somewhat sluggish Neurologic: Nonfocal Psychiatric: Affect appropriate. Alert and oriented. Results & Data Vital Signs (Past 12 Hours) Vital Signs Temp Pulse Resp BP Pulse Ox 10/21/19 12:10 36.8 C 84 18 159/74 H 96 10/21/19 07:22 36.5 C 87 18 129/76 98 10/21/19 04:12 36.9 C 85 17 117/63 97 Laboratory Results Laboratory Results - last 24 hr 10/20/19 10/21/19 10/21/19 Unknown 05:43 05:43 WBC RBC Hgb Hct MCV MCH MCHC RDW Std Deviation RDW Coeff of Saadia Plt Count MPV Immature Gran % (Auto) Neut % (Auto) Lymph % (Auto) [place] % (Auto) Eos % (Auto) Baso % (Auto) Neut # (Auto) Lymph # (Auto) [place] # (Auto) Eos # (Auto) Baso # (Auto) Immature Gran # (Auto) Sodium 140 Potassium 3.8 Chloride 107 Carbon Dioxide 27 Anion Gap 6.0 BUN 70 H Creatinine 2.28 H 2.24 H Est Cr Clr Drug Dosing 28.0 28.5 Est GFR ( Amer) 23.9 24.4 Est GFR (Non-Af Amer) 20.6 21.1 BUN/Creatinine Ratio 31.2 H Glucose 105 H Calcium 8.6 Stl C. diff Tox B Gene Negative Cdiff Gene 10/21/19 05:43 WBC 10.96 H RBC 2.91 L Hgb 7.4 L Hct 24.5 L MCV 84.2 MCH 25.4 MCHC 30.2 L RDW Std Deviation 50.1 H RDW Coeff of Saadia 16.1 H Plt Count 103 L MPV 10.3 Immature Gran % (Auto) 0.7 Neut % (Auto) 92.0 Lymph % (Auto) 3.3 [place] % (Auto) 2.6 Eos % (Auto) 1.3 Baso % (Auto) 0.1 Neut # (Auto) 10.08 H Lymph # (Auto) 0.36 L [place] # (Auto) 0.29 Eos # (Auto) 0.14 Baso # (Auto) 0.01 Immature Gran # (Auto) 0.08 H Sodium Potassium Chloride Carbon Dioxide Anion Gap BUN Creatinine Est Cr Clr Drug Dosing Est GFR ( Amer) Est GFR (Non-Af Amer) BUN/Creatinine Ratio Glucose Calcium Stl C. diff Tox B Gene PG Care Time/CCT Total # of Minutes Spent Total Time Spent with Patient: Total time spent is greater than 50% in coordination of care (as documented) at patient's floor/unit and/or counseling patient: Coding Level of Care Code 02258 Initial Inpt Care Lvl 3 Diagnoses Cellulitis of both lower extremities L03.115; L03.116
[2019-10-21] MEDS: ERTAPENEM SODIUM 500 MG in SODIUM CHLORIDE 0.9% 50 ML IV SCH (17:56)
[2019-10-21] MEDS: DAPTOmycin 500 MG in SYRINGE 0 ML IV SCH (17:57)
--- NOTE | 2019-10-21 18:24 | Hospitalist Progress Note ---
Date of Service October 21, 2019 Assessment & Plan (1) Septic shock: Required admission to ICU & pressors. Pressors weaned off 10/16. Source - b/l LE cellulitis and bacteremia. Now weaned off stress dose steroids w/ hydrocortisone 25mg IV BID Antibiotics narrowed to IV rocephin 2 grams daily while in ICU and now on ertapenem and daptomycin as below repeat blood cultures from 10/16 initially returned positive and obtained another set of cultures on 10/18, but was false positive l (2) Lower extremity cellulitis: Failed multiple outpatient antibiotics since August including clinda, doxy, keflex. Was on rocephin 2gm IV daily here but had spreading of cellulitis and changed to Dapto and Ertapenem. With blister on rt medial thigh--> wound culture now growing gram-negative rods- sensitivity and species pending Follow wound culture Right leg seems stable from yesterday to slightly improved, now with wraps and Tubigrip in place Prior arterial doppler in 2019 showed ?PAD. Repeat Dopplers b/l here with monophasic flow on rt--> could PAD contributing to poor infection clearance. She has no claudication but could be venous insufficiency contributing? Consulted interventional cardiology-no need for acute intervention especially in the setting of elevated creatinine, but will have arterial and venous reflux ultrasound performed as an outpatient after discharge Remains afebrile and leukocytosis is resolved With previous culture results - has had MDR morganella and coag neg staph from leg wound culture in 2019. Morganella was sensitive to ertapenem. If she fails to improve with these changes then would need to consider adding pseudomonas coverage. -consult Interventional Cardiology [id number] as an outpatient. Okay with light compression. Needs continued wound care follow-up Venous disease heavily contributing to her issues as well as chronic immune suppression with prednisone. Anticipate prolonged course of IV antibiotics (14 days?) followed by PO antibiotic course. Awaiting final culture results. Has PICC line in place (3) Hyperkalemia: 2nd to acute renal failure. resolved (4) Acute kidney injury: Baseline cr 1.3. Cr 7.9 on admission. Likely sepsis-associated ATN. Good UOP and Cr continues to improve daily. Appreciate nephrology consult/recs. BMP am. (5) HTN (hypertension): Holding home medications of losartan, spironolactone for previous hypotension and PRINCESS (6) Hyperlipidemia: Holding statin while on daptomycin (7) Rheumatoid arthritis: Chronic prednisone use - 7.5mg daily. Was on stress doses of steroid due to sepsis as above and home prednisone dose Continue Hydroxychloroquine. Also takes leflunomide at home. (8) Hypocalcemia: total calcium 8.2. correcting for low albumin it is about 10. resolved. (9) Hypokalemia: Now normal repeat BMP am. (10) Hypomagnesemia: Replaced and normal. (11) Candidiasis of mouth and esophagus: 2nd to chronic steroids/immunosuppressants. cont nystatin solution 5cc qid. (12) Hypoalbuminemia: Severe. Normal albumin in August. Started boost BID. Added MVI, vit C, and zinc for wound healing and overall health. 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 this is likely the main reason for severe edema along with venous insufficiency. checked venous dopplers just to make sure NO DVT is present-negative (13) Thrombocytopenia: Suspect sepsis-associated. With evidence of DIC here Now much improved, richar was 69, now up to 100 follow CBC (14) DVT prophylaxis: Heparin BID cont PT/OT; I strongly advised rehab post-d/c in light of numerous issues, severe deconditioning, etc. and she is agreeable Will not likely discharge at least Thursday-need to ensure that lower extremity cellulitis is improving Admission and Anticipated Discharge Date Admission Date: October 14, 2019 Subjective Pt had severe pain in her legs while dressings were being changed earlier. Her tramadol was increased and now she is feeling much better. Denies CP or SOB. Tele with NSR , ST, PACs, 80-100s I discussed her case with Dr. Block of cardiology Review of Systems Review of Systems: All systems reviewed & are unremarkable except as noted in HPI & below Physical Exam Constitutional: WD/WN, vitals as above + obese Eyes: + anicteric sclerae Neck: trachea midline, no thyromegaly Respiratory: normal respiratory effort, lungs clear to auscultation Cardiovascular: RRR, no murmur, no edema Chest (Breasts): Chest: normal inspection of chest Gastrointestinal (Abdomen): normal bowel sounds, soft, nontender, no hepatosplenomegaly Musculoskeletal: Extremities: + extremities abnormal to inspection (bilat edema 3+ to thighs) and no cyanosis Skin: + rash (Erythema noted right medial thigh not worse than yesterday, the rest of her lower extremities are now completely covered with dressings and Tubigrip not removed today) Neurologic: moves all extremities and awake; no focal motor deficits Psychiatric: A+Ox3, euthymic affect Lymphatic: no lymphedema Results & Data Results & Data ([facility]) Vital Signs (Past 12 Hours) Vital Signs Temp Pulse Resp BP Pulse Ox 10/21/19 15:04 36.4 C L 92 H 19 157/84 H 97 10/21/19 12:10 36.8 C 84 18 159/74 H 96 10/21/19 07:22 36.5 C 87 18 129/76 98 Laboratory Results Labs reviewed PG Care Time/CCT Total # of Minutes Spent Total Time Spent with Patient: Total time spent is greater than 50% in coordination of care (as documented) at patient's floor/unit and/or counseling patient: Coding Level of Care Code 78170 Subseq Hosp Care Lvl 3 Diagnoses Septic shock A41.9; R65.21 Lower extremity cellulitis L03.119 Laterality: unspecified laterality Hyperkalemia E87.5 Acute kidney injury N17.9 HTN (hypertension) I10 Hypertension type: essential hypertension Hyperlipidemia E78.2 Hyperlipidemia type: mixed hyperlipidemia Rheumatoid arthritis M06.9 Rheumatoid arthritis location: unspecified site Rheumatoid factor presence: unspecified presence Hypocalcemia E83.51 Hypokalemia E87.6 Hypomagnesemia E83.42 Candidiasis of mouth and esophagus B37.81; B37.0 Hypoalbuminemia E88.09 Thrombocytopenia D69.6 DVT prophylaxis Z29.9 (1) Rheumatoid arthritis Rheumatoid arthritis location: unspecified site Rheumatoid factor presence: unspecified presence Qualified Code(s): M06.9 - Rheumatoid arthritis, unspecified (2) Lower extremity cellulitis Laterality: unspecified laterality Qualified Code(s): L03.119 - Cellulitis of unspecified part of limb (3) Hyperlipidemia Hyperlipidemia type: mixed hyperlipidemia Qualified Code(s): E78.2 - Mixed hyperlipidemia (4) HTN (hypertension) Hypertension type: essential hypertension Qualified Code(s): I10 - Essential (primary) hypertension
[2019-10-21] MEDS: HYDROXYCHLOROQUINE SULFATE 200 MG TAB PO SCH (20:45)
[2019-10-22 05:59] LABS: Eosinophils # (auto) 0.28 K/uL (0-0.5); Hematocrit (blood only) 25.9 % (37-47); Hemoglobin 7.8 g/dL (12.0-16.0); Immature Granulocytes # (auto) 0.09 K/uL (0.00-0.02); Lymphocytes # (auto) 0.62 K/uL (1.2-3.4); Lymphocytes % (auto) 6.6 %; Mean Corpuscular Hemoglobin 25.7 pg (25-34); Mean Corpuscular Hgb Conc 30.1 g/dL (32-36); Mean Corpuscular Volume 85.2 fL (80-100); Mean Platelet Volume 9.7 fL (7.4-10.4); Monocytes # (auto) 0.29 K/uL (0.11-0.59); Monocytes % (auto) 3.1 %; Neutrophils # (auto) 8.08 K/uL (1.4-6.5); Neutrophils % (auto) 86.3 %; Platelet Count 137 K/uL (130-400); RDW Standard Deviation 49.7 fL (36.4-46.3); Red Blood Count 3.04 M/uL (4.2-5.4); White Blood Count 9.36 K/uL (4.8-10.8)
[2019-10-22 06:32] LABS: BUN Creatinine Ratio 29.6 (10-20); Calcium 8.6 mg/dl (8.5-10.1); Creatinine Clr Calc Pharmacy 29.1 ml/min; Est GFR (African American) 25.4; Est GFR (Non-African American) 21.9
[2019-10-22 07:46] LABS: Ovalocytes 1+
[2019-10-22] MEDS: TRAMADOL HCL 50 MG TABLET PO PRN ×2 (08:18→17:00)
[2019-10-22] MEDS: NYSTATIN SUSP 500,000 U/5 ML UDC PO SCH ×4 (08:18→21:13)
[2019-10-22] MEDS: predniSONE 2.5 MG TAB PO SCH (08:18)
[2019-10-22] MEDS: ASCORBIC ACID 500 MG TAB PO SCH ×2 (08:18→21:15)
[2019-10-22] MEDS: LACTOBACILLUS ACIDOPHILUS (FLORANEX) TAB PO SCH ×3 (08:18→21:14)
[2019-10-22] MEDS: PANTOprazole 40 MG TAB PO SCH (08:18)
[2019-10-22] MEDS: ZINC SULFATE 220 MG CAPSULE PO SCH (08:18)
[2019-10-22] MEDS: HEPARIN SOD 5,000 UNIT/0.5 ML VIAL SQ SCH ×2 (08:18→21:14)
[2019-10-22] MEDS: CEROVITE ADV FORMULA TAB PO SCH (08:18)
[2019-10-22] MEDS ORDERED: CIPROFLOXACIN / D5W 400 MG/200 ML BAG IV ONE (09:45)
--- NOTE | 2019-10-22 14:40 | Electrocardiogram Report ---
Test Reason : Blood Pressure : / mmHG Vent. Rate : 093 BPM Atrial Rate : 093 BPM P-R Int : 134 ms QRS Dur : 098 ms QT Int : 358 ms P-R-T Axes : 018 -11 055 degrees QTc Int : 445 ms Normal sinus rhythm Normal ECG When compared with ECG of 14-OCT-2019 11:17, T wave amplitude has decreased in Anterior leads Confirmed by Marquis Mendoza ([id number]) on 10/22/2019 2:40:01 PM Referred By: Shant Miranda Confirmed By:Marquis Mendoza
--- NOTE | 2019-10-22 18:38 | Hospitalist Progress Note ---
Date of Service October 22, 2019 Assessment & Plan (1) Septic shock: With Serratia septicemia Required admission to ICU & pressors. Pressors weaned off 10/16. Source - b/l LE cellulitis and bacteremia. Now weaned off stress dose steroids Antibiotics previously narrowed to IV rocephin 2 grams daily while in ICU and then broadened to ertapenem and daptomycin as below repeat blood cultures from 10/16 initially returned positive and obtained another set of cultures on 10/18, but was false positive l (2) Lower extremity cellulitis: Severe bilateral lower extremity cellulitis with massive edema Failed multiple outpatient antibiotics since August including clinda, doxy, keflex. Was on rocephin 2gm IV daily here but had spreading of cellulitis and changed to Dapto and Ertapenem on 10/19. With blister on rt medial thigh--> wound culture now growing Pseudomonas resistant to aztreonam, ceftazidime, and Zosyn, with intermediate sensitivity to cefepime and imipenem. It is sensitive to amikacin, fluoroquinolones, and gentamicin as well as tobramycin. Right leg slightly improved erythema since yesterday-now with wraps and Tubigrip in place on bilateral lower extremities Prior arterial doppler in 2019 showed ?PAD. Repeat Dopplers b/l here with monophasic flow on rt--> could PAD contributing to poor infection clearance. She has no claudication but could be venous insufficiency contributing? Consulted interventional cardiology-no need for acute intervention especially in the setting of elevated creatinine, but will have arterial and venous reflux ultrasound performed as an outpatient after discharge as well as toe pressures before applying increased level of compression Remains afebrile and leukocytosis is resolved With previous culture results - has had MDR morganella and coag neg staph from leg wound culture in 2019. Morganella was sensitive to ertapenem. Given the development of Pseudomonas on the wound culture as above-DC ertapenem and start IV ciprofloxacin to be renally dosed -We will continue daptomycin as she is at high risk also for gram-positive infection given the severe cracks and edema with weeping of her lower extremities bilaterally -consult Interventional Cardiology [id number] as an outpatient. Okay with light compression. Needs continued wound care follow-up Venous disease heavily contributing to her issues as well as chronic immune suppression with prednisone. Anticipate prolonged course of IV antibiotics (14 days?) followed by PO antibiotic course. Awaiting final culture results. Has PICC line in place (3) Hyperkalemia: 2nd to acute renal failure. resolved (4) Acute kidney injury: Baseline cr 1.3. Cr 7.9 on admission. Likely sepsis-associated ATN. Good UOP and Cr continues to improve daily now down to 2.17. Electrolytes within normal limits Appreciate nephrology consult/recs. -Follow BMP (5) HTN (hypertension): Blood pressures are acceptable -Continue holding home medications of losartan, spironolactone for previous hypotension and PRINCESS (6) Hyperlipidemia: Holding statin while on daptomycin (7) Rheumatoid arthritis: Chronic prednisone use - 7.5mg daily. Was on stress doses of steroid due to sepsis as above and home prednisone dose Continue Hydroxychloroquine. Also takes leflunomide at home which is on hold. (8) Hypocalcemia: total calcium 8.6 correcting for low albumin it is about 10. resolved. (9) Hypokalemia: Now normal Follow BMP (10) Hypomagnesemia: Replaced and normal. (11) Candidiasis of mouth and esophagus: 2nd to chronic steroids/immunosuppressants. cont nystatin solution 5cc qid. (12) Hypoalbuminemia: Severe. Normal albumin in August. Secondary to poor nutrition and acute illness Started boost BID. -Added MVI, vit C, and zinc for wound healing and overall health. -Appreciate dietary consultation this is likely the main reason for severe edema along with venous insufficiency. checked venous dopplers just to make sure NO DVT is present-negative (13) Thrombocytopenia: Suspect sepsis-associated. With evidence of DIC here Now much improved, richar was 69, now up to 137 follow CBC (14) Anemia: Hemoglobin slightly improved today up to 7.8, normocytic Iron studies consistent with iron deficiency but likely some component of anemia of chronic disease as well -Did not give IV iron due to sepsis and ongoing infection -Continue to follow CBC and transfuse as needed if hemoglobin drops less than 7 (15) DVT prophylaxis: Heparin BID cont PT/OT; I strongly advised rehab post-d/c in light of numerous issues, severe deconditioning, etc. and she is agreeable Will not likely discharge at least Thursday-need to ensure that lower extremity cellulitis is improving Admission and Anticipated Discharge Date Admission Date: October 14, 2019 Subjective Patient reports still having a lot of pain in the legs but it is relieved every time she gets the now higher dose of tramadol 100 mg. She is feeling a little bit more hopeful that she is improving. She denies chest pain or shortness of breath. She has not been out of bed. Velásquez catheter remains in place due to prolonged immobility and rash with blistering extending into the inner thighs Wound culture came back today with resistant Pseudomonas and case was discussed with the pharmacist for antibiotic management. Telemetry with normal sinus rhythm with PACs and rates in the 80s Patient reports only 2 loose bowel movements today which is an improvement from previous Review of Systems Review of Systems: All systems reviewed & are unremarkable except as noted in HPI & below Physical Exam Constitutional: WD/WN, vitals as above + obese Eyes: + anicteric sclerae Neck: trachea midline, no thyromegaly Respiratory: normal respiratory effort, lungs clear to auscultation Cardiovascular: RRR, no murmur, no edema Chest (Breasts): Chest: normal inspection of chest Gastrointestinal (Abdomen): normal bowel sounds, soft, nontender, no hepatosplenomegaly Musculoskeletal: Extremities: + extremities abnormal to inspection (bilat edema 3+ to thighs) and no cyanosis Skin: + rash (Erythema noted right medial thigh slightly improved from yesterday, the rest of her lower extremities are now completely covered with dressings and Tubigrip not removed today) Neurologic: moves all extremities and awake; no focal motor deficits Psychiatric: A+Ox3, euthymic affect Genitourinary: Velásquez catheter in place draining clear yellow urine Results & Data Results & Data ([facility]) Vital Signs (Past 12 Hours) Vital Signs Temp Pulse Pulse Resp BP Pulse Ox 10/22/19 15:25 36.9 C 88 18 140/77 97 10/22/19 11:59 36.9 C 88 20 116/70 96 10/22/19 07:42 37.3 C 88 16 129/69 95 Laboratory Results 10/22/19 10/22/19 Range/Units 05:36 05:36 WBC 9.36 (4.8-10.8) K/uL RBC 3.04 L (4.2-5.4) M/uL Hgb 7.8 L (12.0-16.0) g/dL Hct 25.9 L (37-47) % MCV 85.2 (80-100) fL MCH 25.7 (25-34) pg MCHC 30.1 L (32-36) g/dL RDW Std Deviation 49.7 H (36.4-46.3) fL RDW Coeff of Saadia 16.0 H (11.5-14.5) % Plt Count 137 (130-400) K/uL MPV 9.7 (7.4-10.4) fL Immature Gran % (Auto) 1.0 % Neut % (Auto) 86.3 % Lymph % (Auto) 6.6 % [place] % (Auto) 3.1 % Eos % (Auto) 3.0 % Baso % (Auto) 0.0 % Neut # (Auto) 8.08 H (1.4-6.5) K/uL Lymph # (Auto) 0.62 L (1.2-3.4) K/uL [place] # (Auto) 0.29 (0.11-0.59) K/uL Eos # (Auto) 0.28 (0-0.5) K/uL Baso # (Auto) 0.00 (0-0.2) K/uL Immature Gran # (Auto) 0.09 H (0.00-0.02) K/uL Ovalocytes 1+ Sodium 141 (136-145) mmol/L Potassium 4.0 (3.5-5.1) mmol/L Chloride 108 H (98-107) mmol/L Carbon Dioxide 29 (21-32) mmol/L Anion Gap 4.0 (3-11) BUN 64 H (7-18) mg/dl Creatinine 2.17 H (0.6-1.2) mg/dl Est Cr Clr Drug Dosing 29.1 ml/min Est GFR ( Amer) 25.4 Est GFR (Non-Af Amer) 21.9 BUN/Creatinine Ratio 29.6 H (10-20) Glucose 82 (70-99) mg/dl Calcium 8.6 (8.5-10.1) mg/dl PG Care Time/CCT Total # of Minutes Spent Total Time Spent with Patient: Total time spent is greater than 50% in coordination of care (as documented) at patient's floor/unit and/or counseling patient: Coding Level of Care Code 15616 Subseq Hosp Care Lvl 3 Diagnoses Septic shock A41.9; R65.21 Lower extremity cellulitis L03.119 Laterality: unspecified laterality Hyperkalemia E87.5 Acute kidney injury N17.9 HTN (hypertension) I10 Hypertension type: essential hypertension Hyperlipidemia E78.2 Hyperlipidemia type: mixed hyperlipidemia Rheumatoid arthritis M06.9 Rheumatoid arthritis location: unspecified site Rheumatoid factor presence: unspecified presence Hypocalcemia E83.51 Hypokalemia E87.6 Hypomagnesemia E83.42 Candidiasis of mouth and esophagus B37.81; B37.0 Hypoalbuminemia E88.09 Thrombocytopenia D69.6 Anemia D64.9 DVT prophylaxis Z29.9 (1) Lower extremity cellulitis Laterality: unspecified laterality Qualified Code(s): L03.119 - Cellulitis of unspecified part of limb (2) HTN (hypertension) Hypertension type: essential hypertension Qualified Code(s): I10 - Essential (primary) hypertension (3) Hyperlipidemia Hyperlipidemia type: mixed hyperlipidemia Qualified Code(s): E78.2 - Mixed hyperlipidemia (4) Rheumatoid arthritis Rheumatoid arthritis location: unspecified site Rheumatoid factor presence: unspecified presence Qualified Code(s): M06.9 - Rheumatoid arthritis, unspecified
[2019-10-22] MEDS: HYDROXYCHLOROQUINE SULFATE 200 MG TAB PO SCH (21:17)
[2019-10-22] MEDS: CIPROFLOXACIN / D5W 400 MG/200 ML BAG IV SCH (21:17)
[2019-10-23 06:12] LABS: Eosinophils # (auto) 0.31 K/uL (0-0.5); Hematocrit (blood only) 25.2 % (37-47); Hemoglobin 7.4 g/dL (12.0-16.0); Immature Granulocytes # (auto) 0.06 K/uL (0.00-0.02); Immature Granulocytes % (auto) 0.8 %; Lymphocytes # (auto) 0.42 K/uL (1.2-3.4); Lymphocytes % (auto) 5.4 %; Mean Corpuscular Hemoglobin 25.3 pg (25-34); Mean Corpuscular Hgb Conc 29.4 g/dL (32-36); Mean Platelet Volume 9.6 fL (7.4-10.4); Monocytes # (auto) 0.36 K/uL (0.11-0.59); Monocytes % (auto) 4.6 %; Neutrophils # (auto) 6.61 K/uL (1.4-6.5); Neutrophils % (auto) 85.2 %; Platelet Count 181 K/uL (130-400); Red Blood Count 2.93 M/uL (4.2-5.4); White Blood Count 7.76 K/uL (4.8-10.8)
[2019-10-23 06:36] LABS: Ovalocytes 1+
[2019-10-23 06:45] LABS: BUN Creatinine Ratio 28.7 (10-20); Calcium 8.3 mg/dl (8.5-10.1); Creatinine Clr Calc Pharmacy 31.5 ml/min; Est GFR (African American) 27.3; Est GFR (Non-African American) 23.6; Potassium 4.7 mmol/L (3.5-5.1)
[2019-10-23] MEDS: HEPARIN SOD 5,000 UNIT/0.5 ML VIAL SQ SCH ×2 (07:23→20:32)
[2019-10-23] MEDS: NYSTATIN SUSP 500,000 U/5 ML UDC PO SCH ×4 (07:24→20:29)
[2019-10-23] MEDS: LACTOBACILLUS ACIDOPHILUS (FLORANEX) TAB PO SCH ×3 (07:25→20:29)
[2019-10-23] MEDS: ASCORBIC ACID 500 MG TAB PO SCH ×2 (07:27→20:29)
[2019-10-23] MEDS: ZINC SULFATE 220 MG CAPSULE PO SCH (07:27)
[2019-10-23] MEDS: PANTOprazole 40 MG TAB PO SCH (07:27)
[2019-10-23] MEDS: predniSONE 2.5 MG TAB PO SCH (07:27)
[2019-10-23] MEDS: CEROVITE ADV FORMULA TAB PO SCH (07:27)
[2019-10-23 08:29] LABS: Folate (Folic Acid) 4.59 ng/ml (>5.38)
[2019-10-23] MEDS: IRON SUCROSE 300 MG in SODIUM CHLORIDE 0.9% 250 ML IV SCH (08:43)
[2019-10-23] MEDS: TRAMADOL HCL 50 MG TABLET PO PRN ×2 (09:40→20:28)
[2019-10-23] MEDS ORDERED: DAPTOmycin 500 MG in SYRINGE 0 ML IV SCH (10:00)
[2019-10-23] MEDS: CIPROFLOXACIN / D5W 400 MG/200 ML BAG IV SCH ×2 (10:24→21:28)
--- NOTE | 2019-10-23 12:11 | Hospitalist Progress Note ---
Date of Service October 23, 2019 Assessment & Plan (1) Septic shock: With Serratia septicemia Required admission to ICU & pressors. Pressors weaned off 10/16. Source - b/l LE cellulitis and bacteremia. Now weaned off stress dose steroids Antibiotics previously narrowed to IV rocephin 2 grams daily while in ICU and then broadened to ertapenem and daptomycin as below repeat blood cultures from 10/16 initially returned positive and obtained another set of cultures on 10/18, but was false positive (2) Lower extremity cellulitis: Severe bilateral lower extremity cellulitis with massive edema Failed multiple outpatient antibiotics since August including clinda, doxy, keflex. Was on rocephin 2gm IV daily here but had spreading of cellulitis and changed to Dapto and Ertapenem on 10/19. With blister on rt medial thigh--> wound culture now growing Pseudomonas resistant to aztreonam, ceftazidime, and Zosyn, with intermediate sensitivity to cefepime and imipenem. It is sensitive to amikacin, fluoroquinolones, and gentamicin as well as tobramycin. Right leg with slowly improving erythema since starting on Cipro on 10/21-now with wraps and Tubigrip in place on bilateral lower extremities for light compression Prior arterial doppler in 2019 showed ?PAD. Repeat Dopplers b/l here with monophasic flow on rt--> could PAD contributing to poor infection clearance. She has no claudication but could be venous insufficiency contributing? Consulted interventional cardiology-no need for acute intervention especially in the setting of elevated creatinine, but will have arterial and venous reflux ultrasound performed as an outpatient after discharge as well as toe pressures before applying increased level of compression Remains afebrile and leukocytosis is resolved With previous culture results - has had MDR morganella and coag neg staph from leg wound culture in 2019. Morganella was sensitive to ertapenem. Given the development of Pseudomonas on the wound culture as above-DC ertapenem and started IV ciprofloxacin - continue daptomycin as she is at high risk also for gram-positive infection given the severe cracks and edema with weeping of her lower extremities bilaterally -consulted Interventional Cardiology [id number] as an outpatient. Okay with light compression. Needs continued wound care follow-up Venous disease heavily contributing to her issues as well as chronic immune suppression with prednisone. Anticipate prolonged course of IV antibiotics (14 days?) followed by PO antibiotic course. Has PICC line in place (3) Hyperkalemia: 2nd to acute renal failure. resolved (4) Acute kidney injury: Baseline cr 1.3. Cr 7.9 on admission. Likely sepsis-associated ATN. Good UOP and Cr continues to improve daily now down to 2.04 Electrolytes within normal limits Appreciate nephrology consult/recs. -Follow BMP (5) HTN (hypertension): Blood pressures are acceptable -Continue holding home medications of losartan, spironolactone for previous hypotension and PRINCESS (6) Hyperlipidemia: Holding statin while on daptomycin (7) Rheumatoid arthritis: Chronic prednisone use - 7.5mg daily. Was on stress doses of steroid due to sepsis as above and home prednisone dose Continue Hydroxychloroquine. Also takes leflunomide at home which is on hold with current ongoing infection. (8) Hypocalcemia: total calcium 8.6 correcting for low albumin it is about 10. resolved. (9) Hypokalemia: Now normal Follow BMP (10) Hypomagnesemia: Replaced and normal. (11) Candidiasis of mouth and esophagus: 2nd to chronic steroids/immunosuppressants. cont nystatin solution 5cc qid. (12) Hypoalbuminemia: Severe. Normal albumin in August. Secondary to poor nutrition and acute illness Started boost BID. -Added MVI, vit C, and zinc for wound healing and overall health. -Appreciate dietary consultation this is likely the main reason for severe edema along with venous insufficiency. checked venous dopplers just to make sure NO DVT is present-negative (13) Thrombocytopenia: Suspect sepsis-associated. With evidence of DIC here richar was 69, now normal follow CBC (14) Anemia: Hemoglobin remains low but fairly stable from previous at 7.4, normocytic Iron studies consistent with iron deficiency but likely some component of anemia of chronic disease as well - IV iron was initially held due to septicemia -Okay now to give IV Venofer 300 mg once daily x3 doses -Continue to follow CBC and transfuse as needed if hemoglobin drops less than 7 (15) Folate deficiency: Folate low at 4 -Start folic acid 1 mg p.o. once daily (16) DVT prophylaxis: Heparin BID cont PT/OT, needs SNF placement and is thinking at [facility] I would not discharge her until we see clear improvement in her cellulitis as she is now on the appropriate antibiotics since 10/21 for the Pseudomonas. The Serratia bacteremia will require a total of 14 days of antibiotics from the time of the negative culture which would put an end date for treatment at 10/30/2019. Stable for downgrade from PCU to medical/surgical floor Admission and Anticipated Discharge Date Admission Date: October 14, 2019 Subjective Pt had leg wraps changed today prior to my arrival so I was unfortunately not able to see her legs today. She as usual has fairly severe pain with this but the tramadol is helping. She is feeling down about having to be in the hospital so long and wonders when she is going to get better. Telemetry with normal sinus rhythm with rates in the 80s to 90s. No evidence of bleeding from anywhere. Velásquez catheter remains in place Review of Systems Review of Systems: All systems reviewed & are unremarkable except as noted in HPI & below Physical Exam Constitutional: WD/WN, vitals as above + obese Eyes: + anicteric sclerae Neck: trachea midline, no thyromegaly Respiratory: normal respiratory effort, lungs clear to auscultation Cardiovascular: RRR, no murmur, no edema Chest (Breasts): Chest: normal inspection of chest Gastrointestinal (Abdomen): normal bowel sounds, soft, nontender, no hepatosplenomegaly Musculoskeletal: Extremities: + extremities abnormal to inspection (bilat edema 3+ to thighs) and no cyanosis Skin: + rash (Erythema noted right medial thigh slightly improved from yesterday, erythema of the distal thigh significantly improved from previous, the rest of her lower extremities are now completely covered with dressings and Tubigrip not removed today), + lesion (There is a 5 cm macular lesion above yellow discoloration in the right medial thigh) and + wound (Sloughing skin between the upper medial thighs) Neurologic: moves all extremities and awake; no focal motor deficits Psychiatric: Orientation: alert, oriented x 3 and cooperative Affect: + depressed affect and + tearful affect Genitourinary: Velásquez in place with clear yellow urine Results & Data Results & Data ([facility]) Vital Signs (Past 12 Hours) Vital Signs Temp Pulse Pulse Resp BP Pulse Ox 10/23/19 11:42 37.0 C 90 18 128/73 95 10/23/19 07:41 36.7 C 96 H 18 120/76 98 10/23/19 03:56 36.7 C 89 18 142/73 H 96 Laboratory Results 10/23/19 10/23/19 10/23/19 Range/Units 05:39 05:39 05:39 WBC 7.76 (4.8-10.8) K/uL RBC 2.93 L (4.2-5.4) M/uL Hgb 7.4 L (12.0-16.0) g/dL Hct 25.2 L (37-47) % MCV 86.0 (80-100) fL MCH 25.3 (25-34) pg MCHC 29.4 L (32-36) g/dL RDW Std Deviation 51.0 H (36.4-46.3) fL RDW Coeff of Saadia 16.0 H (11.5-14.5) % Plt Count 181 (130-400) K/uL MPV 9.6 (7.4-10.4) fL Immature Gran % (Auto) 0.8 % Neut % (Auto) 85.2 % Lymph % (Auto) 5.4 % [place] % (Auto) 4.6 % Eos % (Auto) 4.0 % Baso % (Auto) 0.0 % Neut # (Auto) 6.61 H (1.4-6.5) K/uL Lymph # (Auto) 0.42 L (1.2-3.4) K/uL [place] # (Auto) 0.36 (0.11-0.59) K/uL Eos # (Auto) 0.31 (0-0.5) K/uL Baso # (Auto) 0.00 (0-0.2) K/uL Immature Gran # (Auto) 0.06 H (0.00-0.02) K/uL Ovalocytes 1+ Sodium 140 (136-145) mmol/L Potassium 4.7 D (3.5-5.1) mmol/L Chloride 109 H (98-107) mmol/L Carbon Dioxide 30 (21-32) mmol/L Anion Gap 1.0 L (3-11) BUN 59 H (7-18) mg/dl Creatinine 2.04 H (0.6-1.2) mg/dl Est Cr Clr Drug Dosing 31.5 ml/min Est GFR ( Amer) 27.3 Est GFR (Non-Af Amer) 23.6 BUN/Creatinine Ratio 28.7 H (10-20) Glucose 86 (70-99) mg/dl Calcium 8.3 L (8.5-10.1) mg/dl Total Creatine Kinase 33 (26-192) U/L Vitamin B12 887 (211-911) pg/ml Folate 4.59 L (>5.38) ng/ml PG Care Time/CCT Total # of Minutes Spent Total Time Spent with Patient: Total time spent is greater than 50% in coordination of care (as documented) at patient's floor/unit and/or counseling patient: Coding Level of Care Code 97342 Subseq Hosp Care Lvl 3 Diagnoses Septic shock A41.9; R65.21 Lower extremity cellulitis L03.119 Laterality: unspecified laterality Hyperkalemia E87.5 Acute kidney injury N17.9 HTN (hypertension) I10 Hypertension type: essential hypertension Hyperlipidemia E78.2 Hyperlipidemia type: mixed hyperlipidemia Rheumatoid arthritis M06.9 Rheumatoid arthritis location: unspecified site Rheumatoid factor presence: unspecified presence Hypocalcemia E83.51 Hypokalemia E87.6 Hypomagnesemia E83.42 Candidiasis of mouth and esophagus B37.81; B37.0 Hypoalbuminemia E88.09 Thrombocytopenia D69.6 Anemia D64.9 Folate deficiency E53.8 DVT prophylaxis Z29.9 (1) Rheumatoid arthritis Rheumatoid arthritis location: unspecified site Rheumatoid factor presence: unspecified presence Qualified Code(s): M06.9 - Rheumatoid arthritis, unspecified (2) Lower extremity cellulitis Laterality: unspecified laterality Qualified Code(s): L03.119 - Cellulitis of unspecified part of limb (3) Hyperlipidemia Hyperlipidemia type: mixed hyperlipidemia Qualified Code(s): E78.2 - Mixed h yperlipidemia (4) HTN (hypertension) Hypertension type: essential hypertension Qualified Code(s): I10 - Essential (primary) hypertension
[2019-10-23] MEDS: FOLIC ACID 1 MG TAB PO SCH (20:26)
[2019-10-23] MEDS: HYDROXYCHLOROQUINE SULFATE 200 MG TAB PO SCH (20:29)
[2019-10-24 06:18] LABS: Eosinophils # (auto) 0.19 K/uL (0-0.5); Eosinophils % (auto) 3.5 %; Hematocrit (blood only) 24.6 % (37-47); Hemoglobin 7.4 g/dL (12.0-16.0); Immature Granulocytes # (auto) 0.05 K/uL (0.00-0.02); Immature Granulocytes % (auto) 0.9 %; Lymphocytes # (auto) 0.51 K/uL (1.2-3.4); Lymphocytes % (auto) 9.4 %; Mean Corpuscular Hemoglobin 25.4 pg (25-34); Mean Corpuscular Hgb Conc 30.1 g/dL (32-36); Mean Corpuscular Volume 84.5 fL (80-100); Mean Platelet Volume 9.5 fL (7.4-10.4); Monocytes # (auto) 0.31 K/uL (0.11-0.59); Monocytes % (auto) 5.7 %; Neutrophils # (auto) 4.39 K/uL (1.4-6.5); Neutrophils % (auto) 80.5 %; Platelet Count 204 K/uL (130-400); RDW Coefficient of Variation 15.9 % (11.5-14.5); RDW Standard Deviation 49.4 fL (36.4-46.3); Red Blood Count 2.91 M/uL (4.2-5.4); White Blood Count 5.45 K/uL (4.8-10.8)
[2019-10-24 06:37] LABS: RBC Morphology Unremarkable
[2019-10-24 06:54] LABS: BUN Creatinine Ratio 25.1 (10-20); Calcium 8.3 mg/dl (8.5-10.1); Est GFR (African American) 25.1; Est GFR (Non-African American) 21.6; Potassium 4.8 mmol/L (3.5-5.1)
[2019-10-24] MEDS: NYSTATIN SUSP 500,000 U/5 ML UDC PO SCH ×4 (08:26→21:07)
[2019-10-24] MEDS: LACTOBACILLUS ACIDOPHILUS (FLORANEX) TAB PO SCH ×3 (08:26→21:07)
[2019-10-24] MEDS: FOLIC ACID 1 MG TAB PO SCH (08:26)
[2019-10-24] MEDS: PANTOprazole 40 MG TAB PO SCH (08:27)
[2019-10-24] MEDS: CEROVITE ADV FORMULA TAB PO SCH (08:27)
[2019-10-24] MEDS: ASCORBIC ACID 500 MG TAB PO SCH ×2 (08:27→21:07)
[2019-10-24] MEDS: predniSONE 2.5 MG TAB PO SCH (08:27)
[2019-10-24] MEDS: HEPARIN SOD 5,000 UNIT/0.5 ML VIAL SQ SCH ×2 (08:28→21:07)
[2019-10-24] MEDS: ZINC SULFATE 220 MG CAPSULE PO SCH (08:28)
[2019-10-24] MEDS: IRON SUCROSE 300 MG in SODIUM CHLORIDE 0.9% 250 ML IV SCH (08:32)
[2019-10-24] MEDS: CIPROFLOXACIN / D5W 400 MG/200 ML BAG IV SCH ×2 (10:15→21:07)
[2019-10-24] MEDS: TRAMADOL HCL 50 MG TABLET PO PRN ×2 (12:19→21:12)
--- NOTE | 2019-10-24 17:17 | Hospitalist Progress Note ---
Date of Service October 24, 2019 Assessment & Plan (1) Septic shock: With Serratia septicemia Required admission to ICU & pressors. Pressors weaned off 10/16. Source - b/l LE cellulitis and bacteremia. Now weaned off stress dose steroids Antibiotics previously narrowed to IV rocephin 2 grams daily while in ICU and then broadened to ertapenem and daptomycin as below repeat blood cultures from 10/16 initially returned positive and obtained another set of cultures on 10/18, but was false positive (2) Lower extremity cellulitis: Severe bilateral lower extremity cellulitis with massive edema Failed multiple outpatient antibiotics since August including clinda, doxy, keflex. Was on rocephin 2gm IV daily here but had spreading of cellulitis and changed to Dapto and Ertapenem on 10/19. With blister on rt medial thigh--> wound culture now growing Pseudomonas resistant to aztreonam, ceftazidime, and Zosyn, with intermediate sensitivity to cefepime and imipenem. It is sensitive to amikacin, fluoroquinolones, and gentamicin as well as tobramycin. Right leg with slowly improving erythema since starting on Cipro on 10/21-now with wraps and Tubigrip in place on bilateral lower extremities for light compression rn production suggests trying acetic acid, will try Prior arterial doppler in 2019 showed ?PAD. Repeat Dopplers b/l here with monophasic flow on rt--> could PAD contributing to poor infection clearance. She has no claudication but could be venous insufficiency contributing? Consulted interventional cardiology-no need for acute intervention especially in the setting of elevated creatinine, but will have arterial and venous reflux ultrasound performed as an outpatient after discharge as well as toe pressures before applying increased level of compression Remains afebrile and leukocytosis is resolved With previous culture results - has had MDR morganella and coag neg staph from leg wound culture in 2019. Morganella was sensitive to ertapenem. Given the development of Pseudomonas on the wound culture as above-DC ertapenem and started IV ciprofloxacin - continue daptomycin as she is at high risk also for gram-positive infection given the severe cracks and edema with weeping of her lower extremities bilaterally -consulted Interventional Cardiology [id number] as an outpatient. Okay with light compression. Needs continued wound care follow-up Venous disease heavily contributing to her issues as well as chronic immune suppression with prednisone. Anticipate prolonged course of IV antibiotics (14 days?) followed by PO antibiotic course. Has PICC line in place want to see more clinical improvement prior to discharge, anticipate a few more days in hospital (3) Hyperkalemia: 2nd to acute renal failure. resolved (4) Acute kidney injury: Baseline cr 1.3. Cr 7.9 on admission. Likely sepsis-associated ATN. Good UOP and Cr continues to improve, stable at 2.1 Electrolytes within normal limits Appreciate nephrology consult/recs. -Follow BMP (5) HTN (hypertension): Blood pressures are acceptable -Continue holding home medications of losartan, spironolactone for previous hypo tension and PRINCESS (6) Hyperlipidemia: Holding statin while on daptomycin (7) Rheumatoid arthritis: Chronic prednisone use - 7.5mg daily. Was on stress doses of steroid due to sepsis as above and home prednisone dose Continue Hydroxychloroquine. Also takes leflunomide at home which is on hold with current ongoing infection. (8) Hypocalcemia: total calcium 8.6 correcting for low albumin it is about 10. resolved. (9) Hypokalemia: Now normal Follow BMP (10) Hypomagnesemia: Replaced and normal. (11) Candidiasis of mouth and esophagus: 2nd to chronic steroids/immunosuppressants. cont nystatin solution 5cc qid. (12) Hypoalbuminemia: Severe. Normal albumin in August. Secondary to poor nutrition and acute illness Started boost BID. -Added MVI, vit C, and zinc for wound healing and overall health. -Appreciate dietary consultation this is likely the main reason for severe edema along with venous insufficiency. checked venous dopplers just to make sure NO DVT is present-negative (13) Thrombocytopenia: Suspect sepsis-associated. With evidence of DIC here richar was 69, now normal follow CBC (14) Anemia: Hemoglobin remains low but fairly stable from previous at 7.4, normocytic Iron studies consistent with iron deficiency but likely some component of anemia of chronic disease as well - IV iron was initially held due to septicemia -Okay now to give IV Venofer 300 mg once daily x3 doses -Continue to follow CBC and transfuse as needed if hemoglobin drops less than 7, it is 7.4 today (15) Folate deficiency: Folate low at 4 -Start folic acid 1 mg p.o. once daily (16) DVT prophylaxis: Heparin BID cont PT/OT, needs SNF placement and is thinking at [facility] need to see clear improvement in her cellulitis as she is now on the appropriate antibiotics since 10/21 for the Pseudomonas. The Serratia bacteremia will require a total of 14 days of antibiotics from the time of the negative culture which would put an end date for treatment at 10/30/2019 anticipate a few more days of admission Stable for downgrade from PCU to medical/surgical floor Admission and Anticipated Discharge Date Admission Date: October 14, 2019 Subjective patient frustrated because her legs are still erythematous, desquamation of skin reviewed chart from past week, skin culture with Pseudomonas d/w rn production, recommends adding acetic acid wash to kill Pseudomonas reviewed labs, WBC normal, Hb 7.4, Cr 2.19, electrolytes stable Review of Systems Review of Systems: All systems reviewed & are unremarkable except as noted in HPI & below Integumentary: + non-healing lesions, + skin ulcer, + wounds, + erythema and + dry skin Physical Exam Constitutional: well developed and + overweight; no acute distress Eyes: PERRL, conjunctivae normal, anicteric sclerae ENMT: external ear and nose normal, oropharynx normal Neck: trachea midline, no thyromegaly Respiratory: normal respiratory effort, lungs clear to auscultation Cardiovascular: RRR, no murmur, no edema Gastrointestinal (Abdomen): normal bowel sounds, soft, nontender, no hepatosplenomegaly Musculoskeletal: no cyanosis or clubbing, extremities motor strength 5/5 Skin: + rash, + wound (several wounds, bilaterally), + crusts, + dry skin and + erythema (bilateral lower legs, weaping in places, wrapped, tender) Neurologic: patellar DTR's 2+ bilat, sensation intact and PERRL, EOMI, accommodation nl, no face palsy, no dysarthria Psychiatric: A+Ox3, euthymic affect Lymphatic: no cervical or axillary lymphadenopathy Results & Data Results & Data ([facility]) Vital Signs (Past 12 Hours) Vital Signs Temp Pulse Resp BP Pulse Ox 10/24/19 15:42 37.0 C 85 94 H 111/69 94 10/24/19 07:27 36.8 C 99 H 16 139/76 97 Laboratory Results Laboratory Results - last 24 hr 10/24/19 10/24/19 05:19 05:19 WBC 5.45 RBC 2.91 L Hgb 7.4 L Hct 24.6 L MCV 84.5 MCH 25.4 MCHC 30.1 L RDW Std Deviation 49.4 H RDW Coeff of Saadia 15.9 H Plt Count 204 MPV 9.5 Immature Gran % (Auto) 0.9 Neut % (Auto) 80.5 Lymph % (Auto) 9.4 [place] % (Auto) 5.7 Eos % (Auto) 3.5 Baso % (Auto) 0.0 Neut # (Auto) 4.39 Lymph # (Auto) 0.51 L [place] # (Auto) 0.31 Eos # (Auto) 0.19 Baso # (Auto) 0.00 Immature Gran # (Auto) 0.05 H RBC Morphology Unremarkable Sodium 142 Potassium 4.8 Chloride 109 H Carbon Dioxide 29 Anion Gap 4.0 BUN 55 H Creatinine 2.19 H Est Cr Clr Drug Dosing 29.0 Est GFR ( Amer) 25.1 Est GFR (Non-Af Amer) 21.6 BUN/Creatinine Ratio 25.1 H Glucose 70 Calcium 8.3 L Medications Administered Current Inpatient Medications Acetic Acid (Acetic Acid 0.25%) 1 appln IR DAILY [facility] Stop: 11/24/19 08:59 Ascorbic Acid (Vitamin C) 500 mg PO BID [facility] Stop: 11/17/19 20:59 Last Admin: 10/24/19 08:27 Dose: 500 mg Documented by: Folic Acid (Folvite) 1 mg PO QAM [facility] Stop: 11/22/19 19:14 Last Admin: 10/24/19 08:26 Dose: 1 mg Documented by: Heparin Sodium (Beef Lung) (Heparin Sod 10 Unit/Ml Flush) 5 ml FLUSH PRN PRN PRN Reason: Flush Stop: 11/15/19 02:23 Last Admin: 10/24/19 12:15 Dose: 5 ml Documented by: Heparin Sodium (Porcine) (Heparin Sodium (Porcine)) 5,000 units SQ BID [facility] Stop: 11/17/19 20:59 Last Admin: 10/24/19 08:28 Dose: 5,000 units Documented by: Hydroxychloroquine Sulfate (Plaquenil) 400 mg PO HS [facility] Stop: 11/13/19 20:59 Last Admin: 10/23/19 20:29 Dose: 400 mg Documented by: Ciprofloxacin (Cipro) 400 mg in 200 mls @ 100 mls/hr IV Q12H [facility]; Protocol Stop: 10/29/19 21:59 Last Infusion: 10/24/19 12:15 Dose: Infused Documented by: Iron Sucrose 300 mg/ Sodium (Chloride) 265 mls @ 176.667 mls/hr IV DAILY [facility] Stop: 10/26/19 08:59 Last Infusion: 10/24/19 10:03 Dose: Infused Documented by: Daptomycin 500 mg/ Syringe 10 mls @ 4.5 mls/min IV Q48H [facility]; Protocol Stop: 10/30/19 09:59 Lactobacillus Acidophilus (Floranex) 4 tab PO TID [facility] Stop: 11/16/19 13:59 Last Admin: 10/24/19 14:04 Dose: 4 tab Documented by: Magnesium Hydroxide (Milk Of Magnesia) 30 ml PO Q6H PRN PRN Reason: Constipation Stop: 11/13/19 15:26 Miscellaneous Information (Consult) 1 ea N/A UD PRN PRN Reason: Consult Stop: 11/18/19 17:14 Multivitamins/Minerals (Multivitamin W/ Minerals Tab) 1 tab PO QAM [facility] Stop: 11/18/19 08:59 Last Admin: 10/24/19 08:27 Dose: 1 tab Documented by: Nystatin (Mycostatin) 5 ml PO QID [facility] Stop: 10/28/19 20:59 Last Admin: 10/24/19 11:57 Dose: 5 ml Documented by: Pantoprazole Sodium (Protonix) 40 mg PO QAM [facility] Stop: 11/14/19 08:59 Last Admin: 10/24/19 08:27 Dose: 40 mg Documented by: Prednisone (Prednisone) 7.5 mg PO QAM [facility] Stop: 11/17/19 08:59 Last Admin: 10/24/19 08:27 Dose: 7.5 mg Documented by: Tramadol HCl (Ultram) 100 mg PO Q6H PRN PRN Reason: Pain Stop: 11/16/19 15:55 Last Admin: 10/24/19 12:19 Dose: 100 mg Documented by: Zinc Sulfate (Zinc Sulfate) 220 mg PO QAM [facility] Stop: 11/18/19 08:59 Last Admin: 10/24/19 08:28 Dose: 220 mg Documented by: PG Care Time/CCT Total # of Minutes Spent Total Time Spent with Patient: Total time spent is greater than 50% in coordin ation of care (as documented) at patient's floor/unit and/or counseling patient: Coding Level of Care Code 13815 Subseq Hosp Care Lvl 2 Diagnoses Septic shock A41.9; R65.21 Lower extremity cellulitis L03.119 Laterality: unspecified laterality Hyperkalemia E87.5 Acute kidney injury N17.9 HTN (hypertension) I10 Hypertension type: essential hypertension Hyperlipidemia E78.2 Hyperlipidemia type: mixed hyperlipidemia Rheumatoid arthritis M06.9 Rheumatoid arthritis location: unspecified site Rheumatoid factor presence: unspecified presence Hypocalcemia E83.51 Hypokalemia E87.6 Hypomagnesemia E83.42 Candidiasis of mouth and esophagus B37.81; B37.0 Hypoalbuminemia E88.09 Thrombocytopenia D69.6 Anemia D64.9 Folate deficiency E53.8 DVT prophylaxis Z29.9 (1) Rheumatoid arthritis Rheumatoid arthritis location: unspecified site Rheumatoid factor presence: unspecified presence Qualified Code(s): M06.9 - Rheumatoid arthritis, unspecified (2) Lower extremity cellulitis Laterality: unspecified laterality Qualified Code(s): L03.119 - Cellulitis of unspecified part of limb (3) Hyperlipidemia Hyperlipidemia type: mixed hyperlipidemia Qualified Code(s): E78.2 - Mixed hyperlipidemia (4) HTN (hypertension) Hypertension type: essential hypertension Qualified Code(s): I10 - Essential (primary) hypertension
[2019-10-24] MEDS: HYDROXYCHLOROQUINE SULFATE 200 MG TAB PO SCH (21:12)
[2019-10-25 06:25] LABS: Basophils # (auto) 0.01 K/uL (0-0.2); Basophils % (auto) 0.2 %; Eosinophils # (auto) 0.19 K/uL (0-0.5); Eosinophils % (auto) 4.6 %; Hematocrit (blood only) 23.5 % (37-47); Hemoglobin 7.6 g/dL (12.0-16.0); Immature Granulocytes # (auto) 0.05 K/uL (0.00-0.02); Immature Granulocytes % (auto) 1.2 %; Lymphocytes # (auto) 0.56 K/uL (1.2-3.4); Lymphocytes % (auto) 13.5 %; Mean Corpuscular Hemoglobin 27.9 pg (25-34); Mean Corpuscular Hgb Conc 32.3 g/dL (32-36); Mean Corpuscular Volume 86.4 fL (80-100); Monocytes # (auto) 0.27 K/uL (0.11-0.59); Monocytes % (auto) 6.5 %; Neutrophils # (auto) 3.08 K/uL (1.4-6.5); Platelet Count 197 K/uL (130-400); RDW Coefficient of Variation 15.8 % (11.5-14.5); RDW Standard Deviation 49.9 fL (36.4-46.3); Red Blood Count 2.72 M/uL (4.2-5.4); White Blood Count 4.16 K/uL (4.8-10.8)
[2019-10-25 06:56] LABS: Ovalocytes 1+
[2019-10-25 07:04] LABS: BUN Creatinine Ratio 21.7 (10-20); Calcium 8.4 mg/dl (8.5-10.1); Creatinine Clr Calc Pharmacy 28.8 ml/min; Est GFR (African American) 24.8; Est GFR (Non-African American) 21.4; Potassium 4.5 mmol/L (3.5-5.1)
[2019-10-25] MEDS: ASCORBIC ACID 500 MG TAB PO SCH ×2 (07:58→20:41)
[2019-10-25] MEDS: CEROVITE ADV FORMULA TAB PO SCH (07:59)
[2019-10-25] MEDS: NYSTATIN SUSP 500,000 U/5 ML UDC PO SCH ×4 (07:59→20:41)
[2019-10-25] MEDS: ZINC SULFATE 220 MG CAPSULE PO SCH (07:59)
[2019-10-25] MEDS: HEPARIN SOD 5,000 UNIT/0.5 ML VIAL SQ SCH ×2 (07:59→20:41)
[2019-10-25] MEDS: PANTOprazole 40 MG TAB PO SCH (07:59)
[2019-10-25] MEDS: predniSONE 2.5 MG TAB PO SCH (07:59)
[2019-10-25] MEDS: FOLIC ACID 1 MG TAB PO SCH (08:00)
[2019-10-25] MEDS: LACTOBACILLUS ACIDOPHILUS (FLORANEX) TAB PO SCH ×3 (08:00→20:41)
[2019-10-25] MEDS: IRON SUCROSE 300 MG in SODIUM CHLORIDE 0.9% 250 ML IV SCH (08:09)
[2019-10-25] MEDS: ACETIC ACID 0.25% IRRIG SOLN 1000 ML PLCT IR SCH (09:42)
[2019-10-25] MEDS: DAPTOmycin 500 MG in SYRINGE 0 ML IV SCH (09:44)
[2019-10-25] MEDS: CIPROFLOXACIN 500 MG TAB PO SCH (15:17)
[2019-10-25] MEDS ORDERED: CIPROFLOXACIN / D5W 400 MG/200 ML BAG IV SCH (16:00)
[2019-10-25] MEDS: TRAMADOL HCL 50 MG TABLET PO PRN (20:40)
[2019-10-25] MEDS: HYDROXYCHLOROQUINE SULFATE 200 MG TAB PO SCH (20:41)
--- NOTE | 2019-10-25 23:39 | Hospitalist Progress Note ---
Date of Service October 25, 2019 Assessment & Plan (1) Septic shock: With Serratia septicemia Required admission to ICU & pressors. Pressors weaned off 10/16. Source - b/l LE cellulitis and bacteremia. Now weaned off stress dose steroids Antibiotics previously narrowed to IV rocephin 2 grams daily while in ICU and then broadened to ertapenem and daptomycin as below repeat blood cultures from 10/16 initially returned positive and obtained another set of cultures on 10/18, but was false positive continue on Cipro IV for bacteremia, last day would be 14 days from 10/16 which would be 10/30 (2) Lower extremity cellulitis: Severe bilateral lower extremity cellulitis with massive edema Failed multiple outpatient antibiotics since August including clinda, doxy, keflex. Was on rocephin 2gm IV daily here but had spreading of cellulitis and changed to Dapto and Ertapenem on 10/19. With blister on rt medial thigh--> wound culture now growing Pseudomonas resistant to aztreonam, ceftazidime, and Zosyn, with intermediate sensitivity to cefepime and imipenem. It is sensitive to amikacin, fluoroquinolones, and gentamicin as well as tobramycin. Right leg with slowly improving erythema since starting on Cipro on 10/21-now with wraps and Tubigrip in place on bilateral lower extremities for light compression consulting sme suggests trying acetic acid, will try Prior arterial doppler in 2019 showed ?PAD. Repeat Dopplers b/l here with monophasic flow on rt--> could PAD contributing to poor infection clearance. She has no claudication but could be venous insufficiency contributing? Consulted interventional cardiology-no need for acute intervention especially in the setting of elevated creatinine, but will have arterial and venous reflux ultrasound performed as an outpatient after discharge as well as toe pressures before applying increased level of compression Remains afebrile and leukocytosis is resolved With previous culture results - has had MDR morganella and coag neg staph from leg wound culture in 2019. Morganella was sensitive to ertapenem. Given the development of Pseudomonas on the wound culture as above-DC ertapenem and started IV ciprofloxacin - continue daptomycin as she is at high risk also for gram-positive infection given the severe cracks and edema with weeping of her lower extremities bilaterally -consulted Interventional Cardiology [id number] as an outpatient. Okay with light compression. Needs continued wound care follow-up Venous disease heavily contributing to her issues as well as chronic immune suppression with prednisone. Anticipate prolonged course of IV antibiotics (14 days?) followed by PO antibiotic course. Has PICC line in place want to see more clinical improvement prior to discharge, anticipate a few more days in hospital, continue the Cipro IV and Daptomycin consult ID to see patient, consider dermatology consult to get their opinion on whether this is just cellulitis or could there be another underlaying issue (3) Hyperkalemia: 2nd to acute renal failure. resolved (4) Acute kidney injury: Baseline cr 1.3. Cr 7.9 on admission. Likely sepsis-associated ATN. Good UOP and Cr is stable at 2.2 Electrolytes within normal limits Appreciate nephrology consult/recs. -Follow BMP (5) HTN (hypertension): Blood pressures are acceptable -Continue holding home medications of losartan, spironolactone for previous hypotension and PRINCESS (6) Hyperlipidemia: Holding statin while on daptomycin (7) Rheumatoid arthritis: Chronic prednisone use - 7.5mg daily. Was on stress doses of steroid due to sepsis as above and home prednisone dose Continue Hydroxychloroquine. Also takes leflunomide at home which is on hold with current ongoing infection. (8) Hypocalcemia: total calcium 8.6 correcting for low albumin it is about 10. resolved. (9) Hypokalemia: Now normal Follow BMP (10) Hypomagnesemia: Replaced and normal. (11) Candidiasis of mouth and esophagus: 2nd to chronic steroids/immunosuppressants. cont nystatin solution 5cc qid. (12) Hypoalbuminemia: Severe. Normal albumin in August. Secondary to poor nutrition and acute illness, could be losing protein from wounds Started boost BID. -Added MVI, vit C, and zinc for wound healing and overall health. -Appreciate dietary consultation this is likely the main reason for severe edema along with venous insufficiency. checked venous dopplers just to make sure NO DVT is present-negative (13) Thrombocytopenia: Suspect sepsis-associated. With evidence of DIC here richar was 69, now normal follow CBC (14) Anemia: Hemoglobin remains low but fairly stable from previous at 7.4, normocytic Iron studies consistent with iron deficiency but likely some component of anemia of chronic disease as well - IV iron was initially held due to septicemia -Okay now to give IV Venofer 300 mg once daily x3 doses -Continue to follow CBC and transfuse as needed if hemoglobin drops less than 7, it is 7.4 again today (15) Folate deficiency: Folate low at 4 -Start folic acid 1 mg p.o. once daily (16) DVT prophylaxis: Heparin BID cont PT/OT, needs SNF placement and is thinking at [facility] need to see clear improvement in her cellulitis as she is now on the appropriate antibiotics since 10/21 for the Pseudomonas. The Serratia bacteremia will require a total of 14 days of antibiotics from the time of the negative culture which would put an end date for treatment at 10/30/2019 anticipate a few more days of admission, get ID and dermatology consults Stable for downgrade from PCU to medical/surgical floor Admission and Anticipated Discharge Date Admission Date: October 14, 2019 Subjective patient frustrated and tearful she sees no end in sight to her issues, legs not getting better she is trying to eat, not much of an appetite she denies chest pain, dyspnea, fever/chills, nausea reviewed labs, Cr stable at 2.2, electrolytes stable, WBC normal, Hb 7.6 discussed getting either dermatology or ID consult, she agreed to this Review of Systems Review of Systems: All systems reviewed & are unremarkable except as noted in Subjective Physical Exam Constitutional: well developed and + overweight; no acute distress Eyes: PERRL, conjunctivae normal, anicteric sclerae ENMT: external ear and nose normal, oropharynx normal Neck: trachea midline, no thyromegaly Respiratory: normal respiratory effort, lungs clear to auscultation Cardiovascular: RRR, no murmur, no edema Gastrointestinal (Abdomen): normal bowel sounds, soft, nontender, no hepatosplenomegaly Musculoskeletal: no cyanosis or clubbing, extremities motor strength 5/5 Skin: + rash, + wound (several wounds, bilaterally), + crusts, + dry skin and + erythema (bilateral lower legs, weaping in places, wrapped, tender) Neurologic: patellar DTR's 2+ bilat, sensation intact and PERRL, EOMI, a ccommodation nl, no face palsy, no dysarthria Psychiatric: A+Ox3, euthymic affect Lymphatic: no cervical or axillary lymphadenopathy Results & Data Results & Data ([facility]) Vital Signs (Past 12 Hours) Vital Signs Temp Pulse Resp BP Pulse Ox 10/25/19 23:01 37.3 C 83 18 115/69 97 10/25/19 15:24 37.0 C 90 20 126/76 95 Laboratory Results Laboratory Results - last 24 hr 10/25/19 10/25/19 06:06 06:06 WBC 4.16 L RBC 2.72 L Hgb 7.6 L Hct 23.5 L MCV 86.4 MCH 27.9 MCHC 32.3 RDW Std Deviation 49.9 H RDW Coeff of Saadia 15.8 H Plt Count 197 MPV 9.0 Immature Gran % (Auto) 1.2 Neut % (Auto) 74.0 Lymph % (Auto) 13.5 [place] % (Auto) 6.5 Eos % (Auto) 4.6 Baso % (Auto) 0.2 Neut # (Auto) 3.08 Lymph # (Auto) 0.56 L [place] # (Auto) 0.27 Eos # (Auto) 0.19 Baso # (Auto) 0.01 Immature Gran # (Auto) 0.05 H Ovalocytes 1+ Sodium 141 Potassium 4.5 Chloride 108 H Carbon Dioxide 29 Anion Gap 5.0 BUN 48 H Creatinine 2.21 H Est Cr Clr Drug Dosing 28.8 Est GFR ( Amer) 24.8 Est GFR (Non-Af Amer) 21.4 BUN/Creatinine Ratio 21.7 H Glucose 79 Calcium 8.4 L Medications Administered Current Inpatient Medications Acetic Acid (Acetic Acid 0.25%) 1 appln IR DAILY [facility] Stop: 11/24/19 08:59 Last Admin: 10/25/19 09:42 Dose: 1 appln Documented by: Ascorbic Acid (Vitamin C) 500 mg PO BID [facility] Stop: 11/17/19 20:59 Last Admin: 10/25/19 20:41 Dose: 500 mg Documented by: Ciprofloxacin (Cipro) 500 mg PO Q18H [facility]; Protocol Stop: 11/01/19 15:59 Last Admin: 10/25/19 15:17 Dose: 500 mg Documented by: Folic Acid (Folvite) 1 mg PO QAM [facility] Stop: 11/22/19 19:14 Last Admin: 10/25/19 08:00 Dose: 1 mg Documented by: Heparin Sodium (Beef Lung) (Heparin Sod 10 Unit/Ml Flush) 5 ml FLUSH PRN PRN PRN Reason: Flush Stop: 11/15/19 02:23 Last Admin: 10/25/19 06:06 Dose: 5 ml Documented by: Heparin Sodium (Porcine) (Heparin Sodium (Porcine)) 5,000 units SQ BID [facility] Stop: 11/17/19 20:59 Last Admin: 10/25/19 20:41 Dose: 5,000 units Documented by: Hydroxychloroquine Sulfate (Plaquenil) 400 mg PO HS [facility] Stop: 11/13/19 20:59 Last Admin: 10/25/19 20:41 Dose: 400 mg Documented by: Iron Sucrose 300 mg/ Sodium (Chloride) 265 mls @ 176.667 mls/hr IV DAILY [facility] Stop: 10/26/19 08:59 Last Infusion: 10/25/19 09:45 Dose: Infused Documented by: Daptomycin 500 mg/ Syringe 10 mls @ 4.5 mls/min IV Q48H [facility]; Protocol Stop: 10/30/19 09:59 Last Admin: 10/25/19 09:44 Dose: 4.5 mls/min Documented by: Lactobacillus Acidophilus (Floranex) 4 tab PO TID [facility] Stop: 11/16/19 13:59 Last Admin: 10/25/19 20:41 Dose: 4 tab Documented by: Magnesium Hydroxide (Milk Of Magnesia) 30 ml PO Q6H PRN PRN Reason: Constipation Stop: 11/13/19 15:26 Miscellaneous Information (Consult) 1 ea N/A UD PRN PRN Reason: Consult Stop: 11/18/19 17:14 Multivitamins/Minerals (Multivitamin W/ Minerals Tab) 1 tab PO QAM [facility] Stop: 11/18/19 08:59 Last Admin: 10/25/19 07:59 Dose: 1 tab Documented by: Nystatin (Mycostatin) 5 ml PO QID [facility] Stop: 10/28/19 20:59 Last Admin: 10/25/19 20:41 Dose: 5 ml Documented by: Pantoprazole Sodium (Protonix) 40 mg PO QAM [facility] Stop: 11/14/19 08:59 Last Admin: 10/25/19 07:59 Dose: 40 mg Documented by: Prednisone (Prednisone) 7.5 mg PO QAM [facility] Stop: 11/17/19 08:59 Last Admin: 10/25/19 07:59 Dose: 7.5 mg Documented by: Tramadol HCl (Ultram) 100 mg PO Q6H PRN PRN Reason: Pain Stop: 11/16/19 15:55 Last Admin: 10/25/19 20:40 Dose: 100 mg Documented by: Zinc Sulfate (Zinc Sulfate) 220 mg PO QAM [facility] Stop: 11/18/19 08:59 Last Admin: 10/25/19 07:59 Dose: 220 mg Documented by: PG Care Time/CCT Total # of Minutes Spent Total Time Spent with Patient: Total time spent is greater than 50% in coordination of care (as documented) at patient's floor/unit and/or counseling patient: Coding Level of Care Code 06624 Subseq Hosp Care Lvl 2 Diagnoses Septic shock A41.9; R65.21 Lower extremity cellulitis L03.119 Laterality: unspecified laterality Hyperkalemia E87.5 Acute kidney injury N17.9 HTN (hypertension) I10 Hypertension type: essential hypertension Hyperlipidemia E78.2 Hyperlipidemia type: mixed hyperlipidemia Rheumatoid arthritis M06.9 Rheumatoid arthritis location: unspecified site Rheumatoid factor presence: unspecified presence Hypocalcemia E83.51 Hypokalemia E87.6 Hypomagnesemia E83.42 Candidiasis of mouth and esophagus B37.81; B37.0 Hypoalbuminemia E88.09 Thrombocytopenia D69.6 Anemia D64.9 Folate deficiency E53.8 DVT prophylaxis Z29.9 (1) Rheumatoid arthritis Rheumatoid arthritis location: unspecified site Rheumatoid factor presence: unspecified presence Qualified Code(s): M06.9 - Rheumatoid arthritis, unspecified (2) Lower extremity cellulitis Laterality: unspecified laterality Qualified Code(s): L03.119 - Cellulitis of unspecified part of limb (3) Hyperlipidemia Hyperlipidemia type: mixed hyperlipidemia Qualified Code(s): E78.2 - Mixed hyperlipidemia (4) HTN (hypertension) Hypertension type: essential hypertension Qualified Code(s): I10 - Essential (primary) hypertension
[2019-10-26 06:34] LABS: Creatinine Clr Calc Pharmacy 28.2 ml/min; Est GFR (African American) 24.3
[2019-10-26] MEDS: ZINC SULFATE 220 MG CAPSULE PO SCH (08:59)
[2019-10-26] MEDS: PANTOprazole 40 MG TAB PO SCH (08:59)
[2019-10-26] MEDS: LACTOBACILLUS ACIDOPHILUS (FLORANEX) TAB PO SCH ×3 (08:59→20:52)
[2019-10-26] MEDS: CEROVITE ADV FORMULA TAB PO SCH (08:59)
[2019-10-26] MEDS: predniSONE 2.5 MG TAB PO SCH (09:00)
[2019-10-26] MEDS: HEPARIN SOD 5,000 UNIT/0.5 ML VIAL SQ SCH ×2 (09:00→20:52)
[2019-10-26] MEDS: FOLIC ACID 1 MG TAB PO SCH (09:00)
[2019-10-26] MEDS: NYSTATIN SUSP 500,000 U/5 ML UDC PO SCH ×4 (09:00→20:52)
[2019-10-26] MEDS: ASCORBIC ACID 500 MG TAB PO SCH ×2 (09:01→20:52)
[2019-10-26] MEDS: TRAMADOL HCL 50 MG TABLET PO PRN ×2 (09:08→17:22)
[2019-10-26] MEDS: ACETIC ACID 0.25% IRRIG SOLN 1000 ML PLCT IR SCH (10:40)
[2019-10-26] MEDS: CIPROFLOXACIN 500 MG TAB PO SCH (13:35)
--- NOTE | 2019-10-26 20:16 | Hospitalist Progress Note ---
Date of Service October 26, 2019 Assessment & Plan (1) Septic shock: With Serratia septicemia Required admission to ICU & pressors. Pressors weaned off 10/16. Source - b/l LE cellulitis and bacteremia. Now weaned off stress dose steroids Antibiotics previously narrowed to IV rocephin 2 grams daily while in ICU and then broadened to ertapenem and daptomycin as below repeat blood cultures from 10/16 initially returned positive and obtained another set of cultures on 10/18, but was false positive continue on Cipro IV for bacteremia, last day would be 14 days from 10/16 which would be 10/30 vitals remain stable, no fever, WBC normal when last checked (2) Lower extremity cellulitis: Severe bilateral lower extremity cellulitis with massive edema Failed multiple outpatient antibiotics since August including clinda, doxy, keflex. Was on rocephin 2gm IV daily here but had spreading of cellulitis and changed to Dapto and Ertapenem on 10/19. With blister on rt medial thigh--> wound culture now growing Pseudomonas resistant to aztreonam, ceftazidime, and Zosyn, with intermediate sensitivity to cefepime and imipenem. It is sensitive to amikacin, fluoroquinolones, and gentamicin as well as tobramycin. Right leg with slowly improving erythema since starting on Cipro on 10/21-now with wraps and Tubigrip in place on bilateral lower extremities for light compression professional system administrator suggests trying acetic acid, will try Prior arterial doppler in 2019 showed ?PAD. Repeat Dopplers b/l here with monophasic flow on rt--> could PAD contributing to poor infection clearance. She has no claudication but could be venous insufficiency contributing? Consulted interventional cardiology-no need for acute intervention especially in the setting of elevated creatinine, but will have arterial and venous reflux ul trasound performed as an outpatient after discharge as well as toe pressures before applying increased level of compression Remains afebrile and leukocytosis is resolved With previous culture results - has had MDR morganella and coag neg staph from leg wound culture in 2019. Morganella was sensitive to ertapenem. Given the development of Pseudomonas on the wound culture as above-DC ertapenem and started IV ciprofloxacin - continue daptomycin as she is at high risk also for gram-positive infection given the severe cracks and edema with weeping of her lower extremities bilaterally -consulted Interventional Cardiology [id number] as an outpatient. Okay with light compression. Needs continued wound care follow-up Venous disease heavily contributing to her issues as well as chronic immune suppression with prednisone. Anticipate prolonged course of IV antibiotics (14 days?) followed by PO antibiotic course. Has PICC line in place will consult [facility] for telemedicine conference, want to know what antibiotics and how long at this point, she is on Cipro IV since 10/21 for Pseudomonas and should also be sufficient for initial Serratia bacteremia, neg cultures on 10/16 also on Daptomycin IV for possible secondary gram positive infection given numerous cracks in skin (3) Hyperkalemia: 2nd to acute renal failure. resolved (4) Acute kidney injury: Baseline cr 1.3. Cr 7.9 on admission. Likely sepsis-associated ATN. Good UOP and Cr is stable at 2.2 for three days Electrolytes within normal limits Appreciate nephrology consult/recs. -Follow BMP (5) HTN (hypertension): Blood pressures are acceptable -Continue holding home medications of losartan, spironolactone for previous hypotension and PRINCESS BP low normal (6) Hyperlipidemia: Holding statin while on daptomycin (7) Rheumatoid arthritis: Chronic prednisone use - 7.5mg daily. Was on stress doses of steroid due to sepsis as above and home prednisone dose Continue Hydroxychloroquine. Also takes leflunomide at home which is on hold with current ongoing infection. (8) Hypocalcemia: total calcium 8.6 correcting for low albumin it is about 10. resolved. (9) Hypokalemia: Now normal Follow BMP (10) Hypomagnesemia: Replaced and normal. (11) Candidiasis of mouth and esophagus: 2nd to chronic steroids/immunosuppressants. cont nystatin solution 5cc qid. (12) Hypoalbuminemia: Severe. Normal albumin in August. Secondary to poor nutrition and acute illness, could be losing protein from wounds Started boost BID. -Added MVI, vit C, and zinc for wound healing and overall health. -Appreciate dietary consultation this is likely the main reason for severe edema along with venous insufficiency. checked venous dopplers just to make sure NO DVT is present-negative (13) Thrombocytopenia: Suspect sepsis-associated. With evidence of DIC here richar was 69, now normal follow CBC (14) Anemia: Hemoglobin remains low but fairly stable from previous at 7.4, normocytic Iron studies consistent with iron deficiency but likely some component of anemia of chronic disease as well - IV iron was initially held due to septicemia -Okay now to give IV Venofer 300 mg once daily x3 doses -Continue to follow CBC and transfuse as needed if hemoglobin drops less than 7, it is 7.4 again today (15) Folate deficiency: Folate low at 4 -Start folic acid 1 mg p.o. once daily (16) DVT prophylaxis: Heparin BID cont PT/OT, needs SNF placement and is thinking at [facility] need to see clear improvement in her cellulitis as she is now on the appropriate antibiotics since 10/21 for the Pseudomonas. The Serratia bacteremia will require a total of 14 days of antibiotics from the time of the negative culture which would put an end date for treatment at 10/30/2019 anticipate a few more days of admission, get ID consult for tomorrow Admission and Anticipated Discharge Date Admission Date: October 14, 2019 Subjective patient says that her legs hurt today when dressings removed per wound RN, the legs are getting better, slightly glue bone drier reviewed labs, CR is 2.2 patient has a poor appetite today, she is down and tearful at times, so frustrated she is not looking forward to needing SNF for treatment discussed getting ID consult, she agrees Review of Systems Review of Systems: All systems reviewed & are unremarkable except as noted in Subjective Constitutional: + fatigue and + weakness; no fever Respiratory: no cough and no dyspnea Cardiovascular: no chest pain Gastrointestinal: no abdominal pain, no nausea and no vomiting Integumentary: + rash, + bleeding lesions, + skin ulcer and + erythema Physical Exam Constitutional: well developed and + overweight; no acute distress Eyes: PERRL, conjunctivae normal, anicteric sclerae ENMT: external ear and nose normal, oropharynx normal Neck: trachea midline, no thyromegaly Respiratory: normal respiratory effort, lungs clear to auscultation Cardiovascular: RRR, no murmur, no edema Gastrointestinal (Abdomen): normal bowel sounds, soft, nontender, no hepatosplenomegaly Musculoskeletal: no cyanosis or clubbing, extremities motor strength 5/5 Skin: + rash, + wound (several wounds, bilaterally), + crusts, + dry skin and + erythema (bilateral lower legs, weaping in places, wrapped, tender) Neurologic: patellar DTR's 2+ bilat, sensation intact and PERRL, EOMI, accommodation nl, no face palsy, no dysarthria Psychiatric: A+Ox3, euthymic affect Lymphatic: no cervical or axillary lymphadenopathy Results & Data Results & Data ([facility]) Vital Signs (Past 12 Hours) Vital Signs Temp Pulse Resp BP Pulse Ox 10/26/19 15:43 36.9 C 84 18 97/62 L 95 Laboratory Results Laboratory Results - last 24 hr 10/26/19 05:48 Creatinine 2.25 H Est Cr Clr Drug Dosing 28.2 Est GFR ( Amer) 24.3 Est GFR (Non-Af Amer) 21.0 Medications Administered Current Inpatient Medications Acetic Acid (Acetic Acid 0.25%) 1 appln IR DAILY [facility] Stop: 11/24/19 08:59 Last Admin: 10/26/19 10:40 Dose: 1 appln Documented by: Ascorbic Acid (Vitamin C) 500 mg PO BID [facility] Stop: 11/17/19 20:59 Last Admin: 10/26/19 09:01 Dose: 500 mg Documented by: Ciprofloxacin (Cipro) 500 mg PO Q18H [facility]; Protocol Stop: 11/01/19 15:59 Last Admin: 10/26/19 13:35 Dose: 500 mg Documented by: Folic Acid (Folvite) 1 mg PO QAM [facility] Stop: 11/22/19 19:14 Last Admin: 10/26/19 09:00 Dose: 1 mg Documented by: Heparin Sodium (Beef Lung) (Heparin Sod 10 Unit/Ml Flush) 5 ml FLUSH PRN PRN PRN Reason: Flush Stop: 11/15/19 02:23 Last Admin: 10/26/19 05:48 Dose: 5 ml Documented by: Heparin Sodium (Porcine) (Heparin Sodium (Porcine)) 5,000 units SQ BID [facility] Stop: 11/17/19 20:59 Last Admin: 10/26/19 09:00 Dose: 5,000 units Documented by: Hydroxychloroquine Sulfate (Plaquenil) 400 mg PO HS [facility] Stop: 11/13/19 20:59 Last Admin: 10/25/19 20:41 Dose: 400 mg Documented by: Daptomycin 500 mg/ Syringe 10 mls @ 4.5 mls/min IV Q48H [facility]IS[facility]; Protocol Stop: 10/30/19 09:59 Last Admin: 10/25/19 09:44 Dose: 4.5 mls/min Documented by: Lactobacillus Acidophilus (Floranex) 4 tab PO TID [facility] Stop: 11/16/19 13:59 Last Admin: 10/26/19 13:35 Dose: 4 tab Documented by: Magnesium Hydroxide (Milk Of Magnesia) 30 ml PO Q6H PRN PRN Reason: Constipation Stop: 11/13/19 15:26 Miscellaneous Information (Consult) 1 ea N/A UD PRN PRN Reason: Consult Stop: 11/18/19 17:14 Multivitamins/Minerals (Multivitamin W/ Minerals Tab) 1 tab PO QAM [facility] Stop: 11/18/19 08:59 Last Admin: 10/26/19 08:59 Dose: 1 tab Documented by: Nystatin (Mycostatin) 5 ml PO QID [facility] Stop: 10/28/19 20:59 Last Admin: 10/26/19 17:23 Dose: 5 ml Documented by: Pantoprazole Sodium (Protonix) 40 mg PO QAM [facility] Stop: 11/14/19 08:59 Last Admin: 10/26/19 08:59 Dose: 40 mg Documented by: Prednisone (Prednisone) 7.5 mg PO QAM [facility] Stop: 11/17/19 08:59 Last Admin: 10/26/19 09:00 Dose: 7.5 mg Documented by: Tramadol HCl (Ultram) 100 mg PO Q6H PRN PRN Reason: Pain Stop: 11/16/19 15:55 Last Admin: 10/26/19 17:22 Dose: 100 mg Documented by: Zinc Sulfate (Zinc Sulfate) 220 mg PO QAM [facility] Stop: 11/18/19 08:59 Last Admin: 10/26/19 08:59 Dose: 220 mg Documented by: PG Care Time/CCT Total # of Minutes Spent Total Time Spent with Patient: Total time spent is greater than 50% in coordination of care (as documented) at patient's floor/unit and/or counseling patient: Coding Level of Care Code 99933 Subseq Hosp Care Lvl 2 Diagnoses Septic shock A41.9; R65.21 Lower extremity cellulitis L03.119 Laterality: unspecified laterality Hyperkalemia E87.5 Acute kidney injury N17.9 HTN (hypertension) I10 Hypertension type: essential hypertension Hyperlipidemia E78.2 Hyperlipidemia type: mixed hyperlipidemia Rheumatoid arthritis M06.9 Rheumatoid arthritis location: unspecified site Rheumatoid factor presence: unspecified presence Hypocalcemia E83.51 Hypokalemia E87.6 Hypomagnesemia E83.42 Candidiasis of mouth and esophagus B37.81; B37.0 Hypoalbuminemia E88.09 Thrombocytopenia D69.6 Anemia D64.9 Folate deficiency E53.8 DVT prophylaxis Z29.9 (1) Lower extremity cellulitis Laterality: unspecified laterality Qualified Code(s): L03.119 - Cellulitis of unspecified part of limb (2) HTN (hypertension) Hypertension type: essential hypertension Qualified Code(s): I10 - Essential (primary) hypertension (3) Hyperlipidemia Hyperlipidemia type: mixed hyperlipidemia Qualified Code(s): E78.2 - Mixed hyperlipidemia (4) Rheumatoid arthritis Rheumatoid arthritis location: unspecified site Rheumatoid factor presence: unspecified presence Qualified Code(s): M06.9 - Rheumatoid arthritis, unspecified
[2019-10-26] MEDS: HYDROXYCHLOROQUINE SULFATE 200 MG TAB PO SCH (21:12)
[2019-10-27] MEDS: TRAMADOL HCL 50 MG TABLET PO PRN (00:32)
[2019-10-27] MEDS: CIPROFLOXACIN 500 MG TAB PO SCH ×2 (04:33→21:26)
[2019-10-27 06:29] LABS: Creatinine Clr Calc Pharmacy 26.9 ml/min; Est GFR (African American) 22.9; Est GFR (Non-African American) 19.8
[2019-10-27] MEDS: PANTOprazole 40 MG TAB PO SCH (08:39)
[2019-10-27] MEDS: ASCORBIC ACID 500 MG TAB PO SCH ×2 (08:39→21:27)
[2019-10-27] MEDS: ZINC SULFATE 220 MG CAPSULE PO SCH (08:39)
[2019-10-27] MEDS: FOLIC ACID 1 MG TAB PO SCH (08:39)
[2019-10-27] MEDS: LACTOBACILLUS ACIDOPHILUS (FLORANEX) TAB PO SCH ×3 (08:40→21:25)
[2019-10-27] MEDS: CEROVITE ADV FORMULA TAB PO SCH (08:40)
[2019-10-27] MEDS: predniSONE 2.5 MG TAB PO SCH (08:40)
[2019-10-27] MEDS: NYSTATIN SUSP 500,000 U/5 ML UDC PO SCH ×4 (08:41→21:26)
[2019-10-27] MEDS: HEPARIN SOD 5,000 UNIT/0.5 ML VIAL SQ SCH ×2 (08:45→21:27)
[2019-10-27] MEDS: DAPTOmycin 500 MG in SYRINGE 0 ML IV SCH (09:21)
[2019-10-27] MEDS: ACETIC ACID 0.25% IRRIG SOLN 1000 ML PLCT IR SCH (10:06)
[2019-10-27 10:46] LABS: Basophils # (auto) 0.01 K/uL (0-0.2); Basophils % (auto) 0.2 %; Eosinophils # (auto) 0.18 K/uL (0-0.5); Eosinophils % (auto) 4.5 %; Hematocrit (blood only) 24.4 % (37-47); Hemoglobin 7.5 g/dL (12.0-16.0); Immature Granulocytes # (auto) 0.08 K/uL (0.00-0.02); Lymphocytes % (auto) 12.4 %; Mean Corpuscular Hgb Conc 30.7 g/dL (32-36); Mean Corpuscular Volume 84.7 fL (80-100); Monocytes # (auto) 0.35 K/uL (0.11-0.59); Monocytes % (auto) 8.7 %; Neutrophils # (auto) 2.92 K/uL (1.4-6.5); Neutrophils % (auto) 72.2 %; Platelet Count 217 K/uL (130-400); RDW Coefficient of Variation 15.9 % (11.5-14.5); RDW Standard Deviation 49.4 fL (36.4-46.3); Red Blood Count 2.88 M/uL (4.2-5.4); White Blood Count 4.04 K/uL (4.8-10.8)
[2019-10-27 10:57] LABS: Albumin Level 1.4 gm/dl (3.4-5.0); BUN Creatinine Ratio 16.6 (10-20); Calcium 8.6 mg/dl (8.5-10.1); Creatinine Clr Calc Pharmacy 28.1 ml/min; Est GFR (African American) 24.2; Est GFR (Non-African American) 20.8; Potassium 4.1 mmol/L (3.5-5.1)
[2019-10-27 11:00] LABS: Albumin Globulin Ratio 0.4 (0.9-2); Bilirubin,Total 0.2 mg/dl (0.2-1); Globulin 3.5 gm/dl (2.5-4.0); Total Protein 4.9 gm/dl (6.4-8.2)
[2019-10-27 11:17] LABS: Hypochromasia Present
[2019-10-27] MEDS: HYDROXYCHLOROQUINE SULFATE 200 MG TAB PO SCH (22:14)
--- NOTE | 2019-10-27 23:04 | Hospitalist Progress Note ---
Date of Service October 27, 2019 Assessment & Plan (1) Septic shock: With Serratia septicemia Required admission to ICU & pressors. Pressors weaned off 10/16. Source - b/l LE cellulitis and bacteremia. Now weaned off stress dose steroids Antibiotics previously narrowed to IV rocephin 2 grams daily while in ICU and then broadened to ertapenem and daptomycin as below repeat blood cultures from 10/16 initially returned positive and obtained another set of cultures on 10/18, but was false positive continue on Cipro PO for bacteremia, last day would be 14 days from 10/16 which would be 10/30 vitals remain stable, no fever, WBC 4k, procalcitonin down to near normal ID recommending Cipro PO until 11/11 for the cellulitis (2) Lower extremity cellulitis: Severe bilateral lower extremity cellulitis with massive edema Failed multiple outpatient antibiotics since August including clinda, doxy, keflex. Was on rocephin 2gm IV daily here but had spreading of cellulitis and changed to Dapto and Ertapenem on 10/19. With blister on rt medial thigh--> wound culture now growing Pseudomonas resistant to aztreonam, ceftazidime, and Zosyn, with intermediate sensitivity to cefepime and imipenem. It is sensitive to amikacin, fluoroquinolones, and gentamicin as well as tobramycin. Right leg with slowly improving erythema since starting on Cipro on 10/21-now with wraps and Tubigrip in place on bilateral lower extremities for light compression rating clerk suggests trying acetic acid, will try Prior arterial doppler in 2019 showed ?PAD. Repeat Dopplers b/l here with monophasic flow on rt--> could PAD contributing to poor infection clearance. She has no claudication but could be venous insufficiency contributing? Consulted interventional cardiology-no need for acute intervention especially in the setting of elevated creatinine, but will have arterial and venous reflux ultrasound performed as an outpatient after discharge as well as toe pressures before applying increased level of compression Remains afebrile and leukocytosis is resolved With previous culture results - has had MDR morganella and coag neg staph from leg wound culture in 2019. Morganella was sensitive to ertapenem. -consulted Interventional Cardiology [id number] as an outpatient. Okay with light compression. Needs continued wound care follow-up Venous disease heavily contributing to her issues as well as chronic immune suppression with prednisone. will consult [facility] for telemedicine conference, want to know what antibiotics and how long ID recommends Cipro 500mg PO q18 until 11/11 they recommend keeping legs wrapped, keeping edema out of the legs continue wound care (3) Hyperkalemia: 2nd to acute renal failure. resolved (4) Acute kidney injury: Baseline cr 1.3. Cr 7.9 on admission. Likely sepsis-associated ATN. Good UOP and Cr is stable at 2.2 for four days Electrolytes within normal limits Appreciate nephrology consult/recs. -Follow BMP (5) HTN (hypertension): Blood pressures are acceptable -Continue holding home medications of losartan, spironolactone for previous hypotension and PRINCESS BP low normal (6) Hyperlipidemia: resume statin in one week Alk phos up, likely due to Daptomycin which was stopped today (7) Rheumatoid arthritis: Chronic prednisone use - 7.5mg daily. Was on stress doses of steroid due to sepsis as above and home prednisone dose Continue Hydroxychloroquine. Also takes leflunomide at home which is on hold with current ongoing infection. (8) Hypocalcemia: resolved (9) Hypokalemia: resolved (10) Hypomagnesemia: Replaced and normal. (11) Candidiasis of mouth and esophagus: 2nd to chronic steroids/immunosuppressants. cont nystatin solution 5cc qid. (12) Hypoalbuminemia: Severe. Normal albumin in August. Secondary to poor nutrition and acute illness, could be losing protein from wounds Started boost BID. -Added MVI, vit C, and zinc for wound healing and overall health. -Appreciate dietary consultation this is likely the main reason for severe edema along with venous insufficiency. checked venous dopplers -- NO DVT is present (13) Thrombocytopenia: Suspect sepsis-associated. With evidence of DIC here richar was 69, now normal follow CBC (14) Anemia: Hemoglobin remains low but fairly stable from previous at 7.5, normocytic Iron studies consistent with iron deficiency but likely some component of anemia of chronic disease as well - IV iron was initially held due to septicemia -Okay now to give IV Venofer 300 mg once daily x3 doses -Continue to follow CBC and transfuse as needed if hemoglobin drops less than 7, it is 7.5 again today (15) Folate deficiency: Folate low at 4 -Start folic acid 1 mg p.o. once daily (16) DVT prophylaxis: Heparin BID cont PT/OT, needs SNF placement and is thinking at [facility] plan to discharge tomorrow to [facility] if insurance approves Plan: Cipro 500mg PO q18 until 11/12/19 continue wound care, check with rating clerk about discharge instructions follow up with wound clinic weekly consider a referral to [facility] in several weeks patient had been referred to Dr. Miranda, dermatology, consider a new referral in several weeks Admission and Anticipated Discharge Date Admission Date: October 14, 2019 Subjective patient doing better today, first time she has been smiling in some time, she is happy with her new room, has a better view she is eating well asked RN to remove rick catheter her legs have been wrapped by wound care, keeping swelling down appreciate ID consult, Daptomycin stopped, continue cipro until 11/11 d/w CM, [facility] can take patient tomorrow, will put in referral and insurance authorization labs show WBC 4, Hb 7.5, plts 217k, ESR up at 52 Cr stable at 2.26, procalcitonin is down to 0.51 Review of Systems Review of Systems: All systems reviewed & are unremarkable except as noted in Subjective Constitutional: + fatigue and + weakness; no fever, no chills and no sweats Respiratory: no cough and no dyspnea Cardiovascular: + edema; no chest pain Integumentary: + bleeding lesions, + wounds and + erythema Physical Exam Constitutional: well developed and + overweight; no acute distress Eyes: PERRL, conjunctivae normal, anicteric sclerae ENMT: external ear and nose normal, oropharynx normal Neck: trachea midline, no thyromegaly Respiratory: normal respiratory effort, lungs clear to auscultation Cardiovascular: RRR, no murmur, no edema Gastrointestinal (Abdomen): normal bowel sounds, soft, nontender, no hepatosplenomegaly Musculoskeletal: no cyanosis or clubbing, extremities motor strength 5/5 Skin: + rash, + wound (several wounds, bilaterally), + crusts, + dry skin and + erythema (bilateral lower legs, weaping in places, wrapped, tender) Neurologic: patellar DTR's 2+ bilat, sensation intact and PERRL, EOMI, accommodation nl, no face palsy, no dysarthria Psychiatric: A+Ox3, euthymic affect Lymphatic: no cervical or axillary lymphadenopathy Results & Data Results & Data ([facility]) Vital Signs (Past 12 Hours) Vital Signs Temp Pulse Resp BP Pulse Ox 10/27/19 15:18 36.7 C 100 H 14 117/64 96 Laboratory Results Laboratory Results - last 24 hr 10/27/19 10/27/19 10/27/19 05:34 10:19 10:19 WBC 4.04 L RBC 2.88 L Hgb 7.5 L Hct 24.4 L MCV 84.7 MCH 26.0 MCHC 30.7 L RDW Std Deviation 49.4 H RDW Coeff of Saadia 15.9 H Plt Count 217 MPV 9.0 Immature Gran % (Auto) 2.0 Neut % (Auto) 72.2 Lymph % (Auto) 12.4 Twiggs % (Auto) 8.7 Eos % (Auto) 4.5 Baso % (Auto) 0.2 Neut # (Auto) 2.92 Lymph # (Auto) 0.50 L Twiggs # (Auto) 0.35 Eos # (Auto) 0.18 Baso # (Auto) 0.01 Immature Gran # (Auto) 0.08 H Hypochromasia Present ESR 52 H Sodium Potassium Chloride Carbon Dioxide Anion Gap BUN Creatinine 2.36 H Est Cr Clr Drug Dosing 26.9 Est GFR ( Amer) 22.9 Est GFR (Non-Af Amer) 19.8 BUN/Creatinine Ratio Glucose Calcium Total Bilirubin AST ALT Alkaline Phosphatase Total Protein Albumin Globulin Albumin/Globulin Ratio Procalcitonin SARS-CoV-2 RNA (RT-PCR) 10/27/19 10/27/19 10/27/19 10:19 10:19 16:15 WBC RBC Hgb Hct MCV MCH MCHC RDW Std Deviation RDW Coeff of Saadia Plt Count MPV Immature Gran % (Auto) Neut % (Auto) Lymph % (Auto) Twiggs % (Auto) Eos % (Auto) Baso % (Auto) Neut # (Auto) Lymph # (Auto) Twiggs # (Auto) Eos # (Auto) Baso # (Auto) Immature Gran # (Auto) Hypochromasia ESR Sodium 142 Potassium 4.1 Chloride 110 H Carbon Dioxide 26 Anion Gap 6.0 BUN 38 H Creatinine 2.26 H Est Cr Clr Drug Dosing 28.1 Est GFR ( Amer) 24.2 Est GFR (Non-Af Amer) 20.8 BUN/Creatinine Ratio 16.6 Glucose 100 H Calcium 8.6 Total Bilirubin 0.2 AST 70 H ALT 59 Alkaline Phosphatase 310 H Total Protein 4.9 L Albumin 1.4 L Globulin 3.5 Albumin/Globulin Ratio 0.4 L Procalcitonin 0.51 H SARS-CoV-2 RNA (RT-PCR) Pending Medications Administered Current Inpatient Medications Acetic Acid (Acetic Acid 0.25%) 1 appln IR DAILY [facility] Stop: 11/24/19 08:59 Last Admin: 10/27/19 10:06 Dose: Not Given Documented by: Ascorbic Acid (Vitamin C) 500 mg PO BID [facility] Stop: 11/17/19 20:59 Last Admin: 10/27/19 21:27 Dose: 500 mg Documented by: Ciprofloxacin (Cipro) 500 mg PO Q18H [facility]; Protocol Stop: 11/01/19 15:59 Last Admin: 10/27/19 21:26 Dose: 500 mg Documented by: Folic Acid (Folvite) 1 mg PO QAM [facility] Stop: 11/22/19 19:14 Last Admin: 10/27/19 08:39 Dose: 1 mg Documented by: Heparin Sodium (Beef Lung) (Heparin Sod 10 Unit/Ml Flush) 5 ml FLUSH PRN PRN PRN Reason: Flush Stop: 11/15/19 02:23 Last Admin: 10/27/19 05:36 Dose: 5 ml Documented by: Heparin Sodium (Porcine) (Heparin Sodium (Porcine)) 5,000 units SQ BID [facility] Stop: 11/17/19 20:59 Last Admin: 10/27/19 21:27 Dose: 5,000 units Documented by: Hydroxychloroquine Sulfate (Plaquenil) 400 mg PO HS [facility] Stop: 11/13/19 20:59 Last Admin: 10/27/19 22:14 Dose: 400 mg Documented by: Lactobacillus Acidophilus (Floranex) 4 tab PO TID [facility] Stop: 11/16/19 13:59 Last Admin: 10/27/19 21:25 Dose: 4 tab Documented by: Magnesium Hydroxide (Milk Of Magnesia) 30 ml PO Q6H PRN PRN Reason: Constipation Stop: 11/13/19 15:26 Multivitamins/Minerals (Multivitamin W/ Minerals Tab) 1 tab PO QAM [facility] Stop: 11/18/19 08:59 Last Admin: 10/27/19 08:40 Dose: 1 tab Documented by: Nystatin (Mycostatin) 5 ml PO QID [facility] Stop: 10/28/19 20:59 Last Admin: 10/27/19 21:26 Dose: 5 ml Documented by: Pantoprazole Sodium (Protonix) 40 mg PO QAM [facility] Stop: 11/14/19 08:59 Last Admin: 10/27/19 08:39 Dose: 40 mg Documented by: Prednisone (Prednisone) 7.5 mg PO QAM [facility] Stop: 11/17/19 08:59 Last Admin: 10/27/19 08:40 Dose: 7.5 mg Documented by: Tramadol HCl (Ultram) 100 mg PO Q6H PRN PRN Reason: Pain Stop: 11/16/19 15:55 Last Admin: 10/27/19 00:32 Dose: 100 mg Documented by: Zinc Sulfate (Zinc Sulfate) 220 mg PO QAM [facility] Stop: 11/18/19 08:59 Last Admin: 10/27/19 08:39 Dose: 220 mg Documented by: PG Care Time/CCT Total # of Minutes Spent Total Time Spent: 36 Total Time Spent with Patient: Total time spent is greater than 50% in coordination of care (as documented) at patient's floor/unit and/or counseling patient: Coding Level of Care Code 86716 Subseq Hosp Care Lvl 3 Diagnoses Septic shock A41.9; R65.21 Lower extremity cellulitis L03.119 Laterality: unspecified laterality Hyperkalemia E87.5 Acute kidney injury N17.9 HTN (hypertension) I10 Hypertension type: essential hypertension Hyperlipidemia E78.2 Hyperlipidemia type: mixed hyperlipidemia Rheumatoid arthritis M06.9 Rheumatoid arthritis location: unspecified site Rheumatoid factor presence: unspecified presence Hypocalcemia E83.51 Hypokalemia E87.6 Hypomagnesemia E83.42 Candidiasis of mouth and esophagus B37.81; B37.0 Hypoalbuminemia E88.09 Thrombocytopenia D69.6 Anemia D64.9 Folate deficiency E53.8 DVT prophylaxis Z29.9 (1) Lower extremity cellulitis Laterality: unspecified laterality Qualified Code(s): L03.119 - Cellulitis of unspecified part of limb (2) HTN (hypertension) Hypertension type: essential hypertension Qualified Code(s): I10 - Essential (primary) hypertension (3) Hyperlipidemia Hyperlipidemia type: mixed hyperlipidemia Qualified Code(s): E78.2 - Mixed hyperlipidemia (4) Rheumatoid arthritis Rheumatoid arthritis location: unspecified site Rheumatoid factor presence: unspecified presence Qualified Code(s): M06.9 - Rheumatoid arthritis, unspecified
[2019-10-28 06:44] LABS: Creatinine Clr Calc Pharmacy 26.7 ml/min; Est GFR (African American) 22.7; Est GFR (Non-African American) 19.6
[2019-10-28] MEDS: ASCORBIC ACID 500 MG TAB PO SCH ×2 (09:28→21:33)
[2019-10-28] MEDS: CEROVITE ADV FORMULA TAB PO SCH (09:28)
[2019-10-28] MEDS: NYSTATIN SUSP 500,000 U/5 ML UDC PO SCH ×3 (09:28→16:31)
[2019-10-28] MEDS: FOLIC ACID 1 MG TAB PO SCH (09:28)
[2019-10-28] MEDS: predniSONE 2.5 MG TAB PO SCH (09:29)
[2019-10-28] MEDS: ZINC SULFATE 220 MG CAPSULE PO SCH (09:29)
[2019-10-28] MEDS: LACTOBACILLUS ACIDOPHILUS (FLORANEX) TAB PO SCH ×3 (09:30→21:33)
[2019-10-28] MEDS: PANTOprazole 40 MG TAB PO SCH (09:30)
[2019-10-28] MEDS: HEPARIN SOD 5,000 UNIT/0.5 ML VIAL SQ SCH ×2 (09:31→21:43)
[2019-10-28] MEDS: ACETIC ACID 0.25% IRRIG SOLN 1000 ML PLCT IR SCH (13:47)
[2019-10-28] MEDS: CIPROFLOXACIN 500 MG TAB PO SCH (16:31)
[2019-10-28] MEDS: HYDROXYCHLOROQUINE SULFATE 200 MG TAB PO SCH (21:54)
--- NOTE | 2019-10-28 22:45 | Hospitalist Progress Note ---
Date of Service October 28, 2019 Assessment & Plan (1) Septic shock: With Serratia septicemia Required admission to ICU & pressors. Pressors weaned off 10/16. Source - b/l LE cellulitis and bacteremia. Now weaned off stress dose steroids Antibiotics previously narrowed to IV rocephin 2 grams daily while in ICU and then broadened to ertapenem and daptomycin as below repeat blood cultures from 10/16 initially returned positive and obtained another set of cultures on 10/18, but was false positive continue on Cipro PO for bacteremia vitals remain stable, no fever, WBC 4k, procalcitonin down to near normal ID recommending Cipro PO until 11/11 for the cellulitis (2) Lower extremity cellulitis: Severe bilateral lower extremity cellulitis with massive edema Failed multiple outpatient antibiotics since August including clinda, doxy, keflex. Was on rocephin 2gm IV daily here but had spreading of cellulitis and changed to Dapto and Ertapenem on 10/19. With blister on rt medial thigh--> wound culture now growing Pseudomonas resistant to aztreonam, ceftazidime, and Zosyn, with intermediate sensitivity to cefepime and imipenem. It is sensitive to amikacin, fluoroquinolones, and gentamicin as well as tobramycin. 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 Repeat Dopplers b/l here with monophasic flow on rt--> could PAD contributing to poor infection clearance. She has no claudication but could be venous insufficiency contributing? Consulted interventional cardiology-no need for acute intervention especially in the setting of elevated creatinine, but will have arterial and venous reflux ultrasound performed as an outpatient after discharge as well as toe pressures before applying increased level of compression Remains afebrile and leukocytosis is resolved With previous culture results - has had MDR morganella and coag neg staph from leg wound culture in 2019. Morganella was sensitive to ertapenem. -consulted Interventional Cardiology [id number] as an outpatient. Okay with light compression. Needs continued wound care follow-up Venous disease heavily contributing to her issues as well as chronic immune suppression with prednisone. will consult [facility] for telemedicine conference, want to know what antibiotics and how long ID recommends Cipro 500mg PO q18 until 11/11 they recommend keeping legs wrapped, keeping edema out of the legs continue wound care (3) Hyperkalemia: 2nd to acute renal failure. resolved (4) Acute kidney injury: Baseline cr 1.3. Cr 7.9 on admission. Likely sepsis-associated ATN. Good UOP and Cr is stable at 2.2 for four days Electrolytes within normal limits Appreciate nephrology consult/recs. -Follow BMP (5) HTN (hypertension): Blood pressures are acceptable -Continue holding home medications of losartan, spironolactone for previous hypotension and PRINCESS BP low normal (6) Hyperlipidemia: resume statin in one week Alk phos up, likely due to Daptomycin which was stopped today (7) Rheumatoid arthritis: Chronic prednisone use - 7.5mg daily. Was on stress doses of steroid due to sepsis as above and home prednisone dose Continue Hydroxychloroquine. Also takes leflunomide at home which is on hold with current ongoing infection. (8) Hypocalcemia: resolved (9) Hypokalemia: resolved (10) Hypomagnesemia: Replaced and normal. (11) Candidiasis of mouth and esophagus: 2nd to chronic steroids/immunosuppressants. cont nystatin solution 5cc qid. (12) Hypoalbuminemia: Severe. Normal albumin in August. Secondary to poor nutrition and acute illness, could be losing protein from wounds Started boost BID. -Added MVI, vit C, and zinc for wound healing and overall health. -Appreciate dietary consultation this is likely the main reason for severe edema along with venous insufficiency. checked venous dopplers -- NO DVT is present (13) Thrombocytopenia: Suspect sepsis-associated. With evidence of DIC here richar was 69, now normal follow CBC (14) Anemia: Hemoglobin remains low but fairly stable from previous at 7.5, normocytic Iron studies consistent with iron deficiency but likely some component of anemia of chronic disease as well - IV iron was initially held due to septicemia -Okay now to give IV Venofer 300 mg once daily x3 doses -Continue to follow CBC and transfuse as needed if hemoglobin drops less than 7, it is 7.5 again today (15) Folate deficiency: Folate low at 4 -Start folic acid 1 mg p.o. once daily (16) DVT prophylaxis: Heparin BID cont PT/OT, needs SNF placement and is thinking at [place] plan to discharge tomorrow to [facility] likely in AM on Thursday. Plan: Cipro 500mg PO q18 until 11/12/19 continue wound care, check with cutting torch operator about discharge instructions follow up with wound clinic weekly consider a referral to [facility] in several weeks patient had been referred to Dr. Miranda, dermatology, consider a new referral in several weeks Admission and Anticipated Discharge Date Admission Date: October 14, 2019 Subjective Patient reports no new symptoms today. Review of Systems Review of Systems: All systems reviewed & are unremarkable except as noted in HPI & below Physical Exam Physical Exam: Constitutional: well developed and + overweight; no acute distress Eyes: PERRL, conjunctivae normal, anicteric sclerae ENMT: external ear and nose normal, oropharynx normal Neck: trachea midline, no thyromegaly Respiratory: normal respiratory effort, lungs clear to auscultation Cardiovascular: RRR, no murmur, no edema Gastrointestinal (Abdomen): normal bowel sounds, soft, nontender, no hepatosplenomegaly Musculoskeletal: no cyanosis or clubbing, extremities motor strength 5/5 Skin: + rash, + wound (several wounds, bilaterally), + crusts, + dry skin and + erythema (bilateral lower legs, weaping in places, wrapped, tender) Neurologic: patellar DTR's 2+ bilat, sensation intact and PERRL, EOMI, accommodation nl, no face palsy, no dysarthria Psychiatric: A+Ox3, euthymic affect Lymphatic: no cervical or axillary lymphadenopathy Results & Data Results & Data ([facility]) Vital Signs (Past 12 Hours) Vital Signs Temp Pulse Resp BP Pulse Ox 10/28/19 14:37 36.7 C 97 H 20 95/61 L 97 PG Care Time/CCT Total # of Minutes Spent Total Time Spent with Patient: Total time spent is greater than 50% in coordination of care (as documented) at patient's floor/unit and/or counseling patient: Coding Level of Care Code 25829 Subseq Hosp Care Lvl 3 Diagnoses Septic shock A41.9; R65.21 Lower extremity cellulitis L03.119 Laterality: unspecified laterality Hyperkalemia E87.5 Acute kidney injury N17.9 HTN (hypertension) I10 Hypertension type: essential hypertension Hyperlipidemia E78.2 Hyperlipidemia type: mixed hyperlipidemia Rheumatoid arthritis M06.9 Rheumatoid arthritis location: unspecified site Rheumatoid factor presence: unspecified presence Hypocalcemia E83.51 Hypokalemia E87.6 Hypomagnesemia E83.42 Candidiasis of mouth and esophagus B37.81; B37.0 Hypoalbuminemia E88.09 Thrombocytopenia D69.6 Anemia D64.9 Folate deficiency E53.8 DVT prophylaxis Z29.9 Time Spent (min) 35 (1) Rheumatoid arthritis Rheumatoid arthritis location: unspecified site Rheumatoid factor presence: unspecified presence Qualified Code(s): M06.9 - Rheumatoid arthritis, unspecified (2) Lower extremity cellulitis Laterality: unspecified laterality Qualified Code(s): L03.119 - Cellulitis of unspecified part of limb (3) Hyperlipidemia Hyperlipidemia type: mixed hyperlipidemia Qualified Code(s): E78.2 - Mixed hyperlipidemia (4) HTN (hypertension) Hypertension type: essential hypertension Qualified Code(s): I10 - Essential (primary) hypertension
[2019-10-28] MEDS ORDERED: HYDROXYCHLOROQUINE SULFATE 200 MG TAB PO SCH (23:00)
[2019-10-28] MEDS: TRAMADOL HCL 50 MG TABLET PO PRN (23:37)
[2019-10-29] MEDS: ACETIC ACID 0.25% IRRIG SOLN 1000 ML PLCT IR SCH (09:53)
[2019-10-29] MEDS: LACTOBACILLUS ACIDOPHILUS (FLORANEX) TAB PO SCH ×2 (10:03→13:14)
[2019-10-29] MEDS: CIPROFLOXACIN 500 MG TAB PO SCH (10:04)
[2019-10-29] MEDS: ASCORBIC ACID 500 MG TAB PO SCH (10:04)
[2019-10-29] MEDS: PANTOprazole 40 MG TAB PO SCH (10:04)
[2019-10-29] MEDS: predniSONE 2.5 MG TAB PO SCH (10:05)
[2019-10-29] MEDS: CEROVITE ADV FORMULA TAB PO SCH (10:05)
[2019-10-29] MEDS: FOLIC ACID 1 MG TAB PO SCH (10:05)
[2019-10-29] MEDS: ZINC SULFATE 220 MG CAPSULE PO SCH (10:06)
[2019-10-29] MEDS: HEPARIN SOD 5,000 UNIT/0.5 ML VIAL SQ SCH (10:10)
[2019-10-29] MEDS: TRAMADOL HCL 50 MG TABLET PO PRN (13:37)
--- NOTE | 2019-10-29 13:43 | Discharge Summary ---
Date of Service October 29, 2019 Admission HPI Per Admitting Provider 73 y/o F who was sent to the ED by dermatology after being seen in the office earlier today. Pt has been working with her PCP for the last month for b/l LE cellulitis. She has been on multiple courses of abx, including clinda, doxy, and keflex, but her cellulitis and swelling is getting worse. She has worsening pain to the b/l LE as well. She was referred to derm for this reason. She states she has had cellulitis in the past, but it has cleared with basic abx use. She states she has been at her usual otherwise. Pt denies fever, SOB, chest pain, abd pain, n/v/c/d. She has decreased appetite, but has been eating without issue otherwise. Pt's biggest concern is her back pain with the positioning being used to improve her BP in the ED. Admission Exam Per Admitting Provider Constitutional: WD/WN, vitals as above Eyes: normal visual hernandez by confrontation and + anicteric sclerae Neck: normal visual inspection and trachea midline Respiratory: normal respiratory effort, lungs clear to auscultation Cardiovascular: Rate/Rhythm: regular rate and regular rhythm Gastrointestinal (Abdomen): Inspection/Auscultation: abdomen not distended Percussion/Palpation: abdomen soft; abdomen nontender Musculoskeletal: Head/Neck/Chest: normocephalic and head atraumatic negative for edema, peripheral pulses intact Skin: b/l LE redness and scaling, erythema, swelling from toes to upper calves New bandaging in place, clean and dry Neurologic: awake; not confused Speech / Cognition: normal speech Psychiatric: A+Ox3, euthymic affect Principal Diagnosis Serratia septicemia with source b/l cellulitis Discharge Exam Patient reports no fevers or chills. Feels she is gradually improving daily. Still some seeping from RLE wound but no pus noted by RN or patient. Constitutional well developed and + morbidly obese; no acute distress and no altered mental status Eyes + anicteric sclerae; normal pupil size ENMT external ear and nose normal, oropharynx normal (no thrush present seen earlier in admission) Neck normal visual inspection and trachea midline Respiratory normal respiratory effort Auscultation: + diminished lung sounds (bases); no crackles and no wheezes Cardiovascular Rate/Rhythm: regular rate and regular rhythm Heart Sounds: normal S1, normal S2 and + murmur (3/6 TOBI LUSB) Vessels: no JVD Extremities: + edema (b/l legs - 3+ ) Gastrointestinal (Abdomen) Inspection/Auscultation: abdomen not distended Percussion/Palpation: abdomen soft; abdomen nontender Musculoskeletal Extremities: + extremities abnormal to inspection (bilat edema 3+ to thighs) and no cyanosis Skin + rash, + lesion (There is a 5 cm macular lesion above yellow discoloration in the right medial thigh), + crusts (b/l LE), + dry skin and + erythema (mild erythema b/l LE (no erythema on feet), weeping R > L, tender) Neurologic moves all extremities, + focal motor deficit and awake; not confused Speech / Cognition: normal speech Psychiatric Orientation: alert, oriented x 3 and cooperative Discharge Data Allergies Allergy/AdvReac Type Severity Reaction Status Date / Time cefadroxil Allergy Intermediate Rash Verified 10/14/19 12:42 Sulfa (Sulfonamide Allergy Unknown RASH Verified 10/14/19 12:42 Antibiotics) oxycodone AdvReac Unknown NAUSEA Verified 10/14/19 12:42 Consultations 10/14/19 12:57 ED Decision to Admit Stat 10/14/19 15:27 Consult Case Management - Discharge Planning Routine Consult Hand Tile Maker Routine Consult Nephrology Stat 10/20/19 14:45 Consult Cardiology Routine 10/26/19 20:16 Consult Infectious Diseases Routine Ordered Studies 10/14/19 12:01 CT abd pelvis wo con Urgent IMPRESSION: 1. Gallstones. 2. Small hepatic cyst. 3. Otherwise no acute process. 10/19/19 17:23 US arterial duplex LE BI Routine IMPRESSION: 1. Limited study as ankle-brachial indices could not BE obtained. 2. Monophasic waveforms throughout the entire right leg as well as the distal aspect of the left leg. 3. This raises the possibility of significant multifocal arterial occlusive change with right leg inflow disease. 4. No major change compared to the prior study. US venous doppler LE BI Routine IMPRESSION: No DVT within the right or left lower extremity. Hospital Course (1) Septic shock: Dona Villalpando is a 73-year-old female admitted to [facility] from October 10 to October 28, 2018 due to worsening bilateral lower extremity cellulitis. She was diagnosed with septic shock with Serratia originating originating from the bilateral lower extremity cellulitis. She required ICU admission with vasopressors and stress dose steroids due to her chronic steroid use (now back on her usual chronic dose). She had a prolonged recovery due to acute renal failure which is now resolved and anemia. On discussion with with infectious disease, she is to continue ciprofloxacin until November 11. 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 Miranda, dermatology, consider a new referral in several weeks Systolic murmur heard on discharge - consider outpatient echocardiogram if persistant Kind regards, Dr. Osvaldo Middleton (2) Lower extremity cellulitis: (3) Hyperkalemia: (4) Acute kidney injury: (5) HTN (hypertension): (6) Hyperlipidemia: (7) Rheumatoid arthritis: (8) Hypocalcemia: (9) Hypokalemia: (10) Hypomagnesemia: (11) Candidiasis of mouth and esophagus: (12) Hypoalbuminemia: (13) Thrombocytopenia: (14) Anemia: (15) Folate deficiency: Total Time Total Time Spent Total Time Spent (In Minutes): 45 Discharge Plan Discharge Items Patient Disposition: [facility] Reason For Visit: SEPSIS Discharge Diagnosis: Serratia septicemia with source b/l cellulitis Activity: As commented below Activity Comment: As per physical therapy recommendations Non-emergency contact: Primary Care Provider Call non-emergency contact if: your symptoms worsen Follow-up/Referrals: Svetlana Rosales CRNP [Primary Care Provider] - Diet: Low Sodium (2gm) Addtl Attending Provider Instructions: Dona Villalpando is a 73-year-old female admitted to [facility] from October 10 to October 28, 2018 due to worsening bilateral lower extremity cellulitis. She was diagnosed with septic shock with Serratia originating originating from the bilateral lower extremity cellulitis. She required ICU admission with vasopressors and stress dose steroids due to her chronic steroid use. She had a prolonged recovery due to acute renal failure which is now resolved and anemia. On discussion with with infectious disease, she is to continue ciprofloxacin until November 11. Recommend CBC, ESR, CMP in 1 week to check for improvement in anemia. Hemoglobin 7.5, ESR 52 prior to discharge. She should be referred to wound clinic for continued management of her bilateral lower extremity wounds. SARS-CoV-2 RNA PCR negative on 10/27/2019 -routinely done as she is being discharged to a retirement for acute rehabilitation. Kind regards, Dr. Osvaldo Middleton Pending Studies at Discharge: No Stand-Alone Forms: [facility] Skilled Items Patient informed of condition?: Yes DNR: No (No intubation or ventilation) Discharge Level of Care: Acute rehab Communicable Disease: No Discharge Prognosis: Stable Lines: None Urinary Catheter: No Medications and DC Order Prescriptions: New ciprofloxacin HCl 500 mg Tablet 500 mg PO Q18H 14 Days Qty: 19 RF: 0 tramadol 50 mg Tablet 50 mg PO Q6H PRN (Reason: pain) Qty: 10 RF: 0 acetic acid 0.25 % Solution 1 irrig irrigation DAILY 30 Days Qty: 6000 RF: 0 zinc sulfate [Orazinc] 220 (50) mg Capsule 220 mg PO QAM 30 Days Qty: 30 RF: 0 Lactobacillus acidoph-L.bulgar [Floranex] 1 million cell Tablet 4 tab PO TID 14 Days Qty: 168 RF: 0 ascorbic acid (vitamin C) [Vitamin C] 500 mg Tablet 500 mg PO BID 30 Days Qty: 60 RF: 0 pantoprazole 40 mg Tablet,Delayed Release (Dr/Ec) 40 mg PO QAM 30 Days Qty: 30 RF: 0 folic acid 1 mg Tablet 1 mg PO QAM Qty: 30 RF: 0 Certavite-Antioxidant 18-400 mg-mcg Tablet 1 tab PO QAM 30 Days Qty: 30 RF: 0 aspirin 81 mg tablet,delayed release (DR/EC) 81 mg PO DAILY Qty: 30 RF: 0 Continued prednisone 5 mg tablet 5 mg PO QAM RF: 0 prednisone 2.5 mg tablet 2.5 mg PO QAM RF: 0 pravastatin 20 mg tablet 20 mg PO QPM RF: 0 hydroxychloroquine 200 mg tablet 400 mg PO HS RF: 0 Discontinued clotrimazole-betamethasone 1-0.05 % cream 1 appln TOP BID 14 Days Qty: 45 RF: 4 leflunomide 20 mg tablet 20 mg PO QAM RF: 0 aspirin [Ecotrin] 325 mg Tablet,Delayed Release (Dr/Ec) 325 mg PO QAM RF: 0 losartan 50 mg Tablet 75 mg PO QAM Qty: 30 RF: 0 nystatin 100,000 unit/gram powder 1 applic topical TID RF: 0 spironolactone 25 mg tablet 25 mg PO DAILY RF: 0 Discharge Orders: Discharge Order (Routine); Ordered 10/29/19 Ordered By: Osvaldo Middleton Admission Data Admit Date/Time: 10/14/19 13:30 Attending Provider: Osvaldo Middleton Admit Provider: Yvrose Anguiano Primary Care Provider: Svetlana Rosales Other Providers: Amara Liu [place] ; Leela Armijo ; Miky Ying ; David Block ; Dominick Reyes ; Kori Garcia ; St chantal Escamilla I. ; Wilfredo Carbajal II ; Haley Strong ; Rocael Quinonez ; Osvaldo Middleton Other Interventions: Discharge Summary Assessment (RN) Last Done: 10/29/19 14:02 DC Date/Time DO NOT enter until pt leaves facility: 10/29/19 14:02 Coding Level of Care Code D/C Day Management >30 mins Diagnoses Septic shock A41.9; R65.21 Lower extremity cellulitis L03.119 Laterality: unspecified laterality Hyperkalemia E87.5 Acute kidney injury N17.9 HTN (hypertension) I10 Hypertension type: essential hypertension Hyperlipidemia E78.2 Hyperlipidemia type: mixed hyperlipidemia Rheumatoid arthritis M06.9 Rheumatoid arthritis location: unspecified site Rheumatoid factor presence: unspecified presence Hypocalcemia E83.51 Hypokalemia E87.6 Hypomagnesemia E83.42 Candidiasis of mouth and esophagus B37.81; B37.0 Hypoalbuminemia E88.09 Thrombocytopenia D69.6 Anemia D64.9 Folate deficiency E53.8
--- NOTE | 2019-10-30 12:30 | Electrocardiogram Report ---
Test Reason : Blood Pressure : / mmHG Vent. Rate : 112 BPM Atrial Rate : 112 BPM P-R Int : 132 ms QRS Dur : 084 ms QT Int : 332 ms P-R-T Axes : 016 -27 043 degrees QTc Int : 453 ms Sinus tachycardia Cannot rule out Anterior infarct , age undetermined Poor R wave progression, consider anterior PA v s. lead placement vs. LVH Abnormal ECG When compared with ECG of 22-OCT-2019 12:36, No significant change was found Confirmed by Adonis Medina ([id number]) on 10/30/2019 12:29:31 PM Referred By: Shant Miranda Confirmed By:Adonis Medina
== END 2019-10-29 14:02 | DRG 871 ==
LOC: ED 09:54 → SUATTDRO 13:30 → 1E 13:30 → 2S 10-17 12:52 → 2W 10-23 12:08 → 3W 10-26 22:39

== ENCOUNTER 2019-11-25 15:25 | Inpatient (IN) ==
[2019-11-25] MEDS ORDERED: SODIUM CHLORIDE 0.9% 500 ML IV SCH (15:45)
[2019-11-25 15:55] LABS: Basophils # (auto) 0.02 K/uL (0-0.2); Basophils % (auto) 0.2 %; Eosinophils # (auto) 0.51 K/uL (0-0.5); Hematocrit (blood only) 30.9 % (37-47); Hemoglobin 9.4 g/dL (12.0-16.0); Immature Granulocytes # (auto) 0.03 K/uL (0.00-0.02); Immature Granulocytes % (auto) 0.4 %; Lymphocytes # (auto) 0.93 K/uL (1.2-3.4); Lymphocytes % (auto) 10.9 %; Mean Corpuscular Hemoglobin 26.5 pg (25-34); Mean Corpuscular Hgb Conc 30.4 g/dL (32-36); Neutrophils # (auto) 6.43 K/uL (1.4-6.5); Neutrophils % (auto) 75.5 %; Platelet Count 200 K/uL (130-400); RDW Coefficient of Variation 16.6 % (11.5-14.5); RDW Standard Deviation 53.6 fL (36.4-46.3); Red Blood Count 3.55 M/uL (4.2-5.4); White Blood Count 8.52 K/uL (4.8-10.8)
[2019-11-25 16:04] LABS: INR 1.1 (0.9-1.1); Prothrombin Time 11.4 Seconds (9.0-12.0)
--- NOTE | 2019-11-25 16:06 | Emergency Department Note ---
Impression & Plan Cellulitis of right thigh, Open leg wound, Bacterial infection due to Pseudomonas ED Provider Note Provider: Danie Easton MD DATE OF SERVICE: 11/25/2019 CHIEF COMPLAINT: Wound infection HISTORY OF PRESENT ILLNESS: Patient is a 73-year-old female with a history of CKD they, recent septic shock, chronic steroid usage, thrombocytopenia, hypertension, pneumonia, obesity, rheumatoid arthritis, chronic lower extremity leg wounds and cellulitis presenting from wound clinic today due to worsening wound on her right inner thigh. Patient states that she is been on Cipro as an outpatient renally dosed for a painful wound on the right distal inner thigh. She has been on this for several days now with worsening and referred here from wound clinic for further care and likely IV antibiotics. Patient states pain and tenderness at the distal thigh. Patient states her lower leg wounds are imp roving and does not have significant tenderness there. Denies fever. Denies any new trauma. Patient states just over a week ago she was discharged from [facility] and has been home with home PT. Using a walker to ambulate. Patient states he does have a little pain in her right upper arm she says is related to overexertion by physical therapy. Patient states there has been some drainage from this wound on her right leg and it is worse with touching the area of the pain. REVIEW OF SYSTEMS: A total of 10 review of systems was obtained and negative except as stated above in the HPI. PAST MEDICAL HISTORY: As noted above MEDICATIONS: Reviewed home medication list. SOCIAL HISTORY: Patient is retired and lives at home alone, never smoker PHYSICAL EXAM: GENERAL: alert and oriented in no acute distress on stretcher Head: normocephalic and atraumatic EYES: No injection, discharge or icterus. NECK: Trachea midline. ENT: Mucous membranes pink and moist. LUNGS: Airway patent. No retractions. Breath sounds clear HEART: Regular rate and rhythm. No chest wall tenderness ABDOMEN: Soft and non-tender, without guarding or rebound. SKIN: Acyanotic, warm, wounds as below. EXTREMITIES: Swelling of the bilateral lower extremities with chronic edema and stasis changes bilaterally below the mid calves. There are mild superficial wounds of the bilateral posterior calves distally involving the dermal layer but not deeper that are bandaged. No significant drainage. Patient has an approximately 5 cm wound on the right distal inner thigh with granulation tissue bandaged quite tender but without significant fluctuance. NEUROLOGICAL: No focal deficits. No aphasia. No facial droop or slurred speech. EK bpm normal sinus rhythm. No PVC. No acute ST segment elevation or depressions noted. There is some baseline artifact throughout noted. QTc 482. CONTINUOUS CARDIAC MONITORING: was ordered and showed a heart rate of 84 bpm in normal sinus rhythm Patient's hypertension was referred to the hospitalist HOSPITAL COURSE: 1530 Patient was first seen and H&P performed. 1616 Patient reassessed and updated. Patient was resting in bed. Given orange juice. Hospitalist has been contacted. Patient's laboratory studies reviewed. Differential includes Viral syndrome, otitis, pharyngitis, pneumonia, influenza, meningitis, urinary tract infection, sepsis, bacteremia, as well as other pathologies. IMPRESSION/MEDICAL DECISION MAKING: Patient likely without acute fever here and not hypertensive. Recent admission for septic shock and bacteremia. Now with a multidrug-resistant pseudomonal infection of the lower extremities. Infection of the right thigh is a primary concern today the other lower wounds are improving. Referred from wound clinic. Patient given a small fluid bolus here. Discussed with pharmacy. Patient's in a difficult situation given her history of allergies, poor renal function, and the multidrug-resistant pseudomonal culture results from the right thigh on review of microbiology. Basic labs were obtained as well as cultures and lacta te. Lactate not elevated. No significant leukocytosis. Kidney function is significantly improved from previous. Surface skin culture from the right thigh was obtained. I doubt acute DVT here. Patient denies abdominal symptoms or chest symptoms. I doubt this represents coronavirus. In discussion with pharmacy will cover with Zerbaxa at this time and want to avoid aminoglycosides given her hx of poor renal function. Believe she requires further inpatient treatment given the severity of the wound and the multidrug resistance. Will discuss with the hospitalist. Patient in agreement. Has not had breakfast or lunch given some orange juice here as the blood sugars initially in the 60s. DIAGNOSIS: Right thigh cellulitis, leg wounds, pseudomonal infection DISPOSITION: Hospitalist will evaluate Patient was agreeable with this plan. 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 Feels Safe at Home: Yes Allergies Allergies Allergy/AdvReac Type Severity Reaction Status Date / Time cefadroxil Allergy Intermediate Rash Verified 11/25/19 14:24 Sulfa (Sulfonamide Allergy Unknown RASH Verified 11/25/19 14:24 Antibiotics) oxycodone AdvReac Unknown NAUSEA Verified 11/25/19 14:24 Home Meds Home Medications Medication Instructions Recorded Confirmed hydroxychloroquine 400 mg PO HS 08/06/18 11/25/19 pravastatin 20 mg PO QPM 08/06/18 11/25/19 prednisone 7.5 mg PO QAM 08/06/18 11/25/19 ciprofloxacin HCl 250 mg PO Q12H 11/25/19 11/25/19 ferrous sulfate 325 mg PO TIDM 11/25/19 11/25/19 mupirocin 1 applic TOPICAL DAILY 11/25/19 11/25/19 tramadol 50 mg PO Q6H PRN 11/25/19 11/25/19 Previous Rx's Medication Instructions Recorded ascorbic acid (vitamin C) [Vitamin 500 mg PO BID 30 Days #60 tab 10/29/19 C] aspirin 81 mg PO DAILY #30 tab 10/29/19 folic acid 1 mg PO QAM #30 tab 10/29/19 ywfymajmwqzd-cmis-rzuii acid 1 tab PO QAM 30 Days #30 tab 10/29/19 [Certavite-Antioxidant] pantoprazole 40 mg PO QAM 30 Days #30 tab 10/29/19 zinc sulfate [Orazinc] 220 mg PO QAM 30 Days #30 cap 10/29/19 collagenase clostridium histo. 250 1 applic TOP DAILY #90 gm 11/21/19 unit/gram topical ointment Results & Data (ED) Vital Signs Vital Signs - 24 hr 11/25/19 15:36 11/25/19 16:07 Temperature 36.5 C Temperature Source Oral Pulse Rate 82 79 Pulse Rhythm Regular Respiratory Rate 18 21 Respiratory Effort / Characteristics Non-Labored Spontaneous Respiratory Depth Normal Respiratory Pattern Regular Blood Pressure 177/116 H 169/72 H Blood Pressure Mean 136 120 Pulse Oximetry 100 100 Oxygen Delivery Method Room Air Sepsis Recent Fever Within 48 Hours No Sepsis New/Unexplained Change in Mental Status No Sepsis Action Taken by Nursing No Action Required Laboratory Data Result diagrams: 11/25/19 15:45 11/25/19 15:45 Lab Results 11/25/19 11/25/19 11/25/19 Range/Units 15:45 15:45 15:45 WBC 8.52 (4.8-10.8) K/uL RBC 3.55 L (4.2-5.4) M/uL Hgb 9.4 L (12.0-16.0) g/dL Hct 30.9 L (37-47) % MCV 87.0 (80-100) fL MCH 26.5 (25-34) pg MCHC 30.4 L (32-36) g/dL RDW Std Deviation 53.6 H (36.4-46.3) fL RDW Coeff of Saadia 16.6 H (11.5-14.5) % Plt Count 200 (130-400) K/uL MPV 9.0 (7.4-10.4) fL Immature Gran % (Auto) 0.4 % Neut % (Auto) 75.5 % Lymph % (Auto) 10.9 % Borden % (Auto) 7.0 % Eos % (Auto) 6.0 % Baso % (Auto) 0.2 % Neut # (Auto) 6.43 (1.4-6.5) K/uL Lymph # (Auto) 0.93 L (1.2-3.4) K/uL Borden # (Auto) 0.60 H (0.11-0.59) K/uL Eos # (Auto) 0.51 H (0-0.5) K/uL Baso # (Auto) 0.02 (0-0.2) K/uL Immature Gran # (Auto) 0.03 H (0.00-0.02) K/uL ESR (0-21) mm/hr PT 11.4 (9.0-12.0) Seconds INR 1.1 (0.9-1.1) Sodium 143 (136-145) mmol/L Potassium 3.7 (3.5-5.1) mmol/L Chloride 113 H (98-107) mmol/L Carbon Dioxide 21 (21-32) mmol/L Anion Gap 9.0 (3-11) BUN 11 (7-18) mg/dl Creatinine 1.18 (0.6-1.2) mg/dl Est Cr Clr Drug Dosing 52.3 ml/min Est GFR ( Amer) 53.0 Est GFR (Non-Af Amer) 45.7 BUN/Creatinine Ratio 9.6 L (10-20) Glucose 64 L (70-99) mg/dl Lactate (0.4-2.0) mmol/L Calcium 9.4 (8.5-10.1) mg/dl Total Bilirubin 0.4 (0.2-1) mg/dl AST 15 (15-37) U/L ALT 14 (12-78) U/L Alkaline Phosphatase 95 (45-117) U/L Troponin I < 0.015 (0-0.045) ng/ml C-Reactive Protein 7.35 H (0-0.29) mg/dl Total Protein 5.9 L (6.4-8.2) gm/dl Albumin 2.4 L (3.4-5.0) gm/dl Globulin 3.5 (2.5-4.0) gm/dl Albumin/Globulin Ratio 0.7 L (0.9-2) Procalcitonin (0-0.5) ng/ml 11/25/19 11/25/19 11/25/19 Range/Units 15:45 15:45 16:26 WBC (4.8-10.8) K/uL RBC (4.2-5.4) M/uL Hgb (12.0-16.0) g/dL Hct (37-47) % MCV (80-100) fL MCH (25-34) pg MCHC (32-36) g/dL RDW Std Deviation (36.4-46.3) fL RDW Coeff of Saadia (11.5-14.5) % Plt Count (130-400) K/uL MPV (7.4-10.4) fL Immature Gran % (Auto) % Neut % (Auto) % Lymph % (Auto) % Borden % (Auto) % Eos % (Auto) % Baso % (Auto) % Neut # (Auto) (1.4-6.5) K/uL Lymph # (Auto) (1.2-3.4) K/uL Borden # (Auto) (0.11-0.59) K/uL Eos # (Auto) (0-0.5) K/uL Baso # (Auto) (0-0.2) K/uL Immature Gran # (Auto) (0.00-0.02) K/uL ESR 25 H (0-21) mm/hr PT (9.0-12.0) Seconds INR (0.9-1.1) Sodium (136-145) mmol/L Potassium (3.5-5.1) mmol/L Chloride (98-107) mmol/L Carbon Dioxide (21-32) mmol/L Anion Gap (3-11) BUN (7-18) mg/dl Creatinine (0.6-1.2) mg/dl Est Cr Clr Drug Dosing ml/min Est GFR ( Amer) Est GFR (Non-Af Amer) BUN/Creatinine Ratio (10-20) Glucose (70-99) mg/dl Lactate 1.0 (0.4-2.0) mmol/L Calcium (8.5-10.1) mg/dl Total Bilirubin (0.2-1) mg/dl AST (15-37) U/L ALT (12-78) U/L Alkaline Phosphatase (45-117) U/L Troponin I (0-0.045) ng/ml C-Reactive Protein (0-0.29) mg/dl Total Protein (6.4-8.2) gm/dl Albumin (3.4-5.0) gm/dl Globulin (2.5-4.0) gm/dl Albumin/Globulin Ratio (0.9-2) Procalcitonin < 0.05 (0-0.5) ng/ml Administered Medications Discontinued Medications Sodium Chloride (Nss) 500 mls @ 999 mls/hr IV .Q31M FRANSISCO Stop: 11/25/19 16:15 Last Infusion: 11/25/19 16:34 Dose: 0 mls/hr Documented by: [id number] Admin: 11/25/19 16:01 Dose: 999 mls/hr Documented by: [id number] Ceftolozane/Tazobactam 1,500 (mg/ Dextrose) 111.4 mls @ 111.4 mls/hr IV NOW STA Stop: 11/25/19 17:27 Last Infusion: 11/25/19 18:54 Dose: 0 mls/hr Documented by: [id number] Admin: 11/25/19 17:19 Dose: 111.4 mls/hr Documented by: [id number] Discharge Plan Visit Data *Final* Discharge Date/Time: 11/25/19 17:35 Chief Complaint: Wound Stated Complaint: cellulitis/ lower legs ED Provider: Danie Easton Discharge Problem: Cellulitis of right thigh, Open leg wound, Bacterial infection due to Pseudomonas Patient Disposition: Admitted As Inpatient Discharge Instructions Interventions: ED Discharge Assessment Last Done: 11/25/19 17:35 Discharge Problem: Open leg wound Qualifiers: Encounter type: initial encounter Laterality: unspecified laterality Qualified Code(s): S81.809A - Unspecified open wound, unspecified lower leg, initial encounter
[2019-11-25] MEDS ORDERED: CEFTOLOZANE/TAZOBACTAM 375 MG in DEXTROSE 5% 100 ML IV STA (16:13)
[2019-11-25 16:16] LABS: Alanine Aminotransferase 14 U/L (12-78); Albumin Level 2.4 gm/dl (3.4-5.0); Aspartate Aminotransferase 15 U/L (15-37); BUN Creatinine Ratio 9.6 (10-20); Blood Urea Nitrogen 11 mg/dl (7-18); C Reactive Protein 7.35 mg/dl (0-0.29); Calcium 9.4 mg/dl (8.5-10.1); Carbon Dioxide 21 mmol/L (21-32); Chloride 113 mmol/L (98-107); Creatinine Clr Calc Pharmacy 52.3 ml/min; Est GFR (Non-African American) 45.7; Glucose 64 mg/dl (70-99); Potassium 3.7 mmol/L (3.5-5.1); Sodium 143 mmol/L (136-145)
[2019-11-25 16:20] LABS: Albumin Globulin Ratio 0.7 (0.9-2); Alkaline Phosphatase 95 U/L (45-117); Bilirubin,Total 0.4 mg/dl (0.2-1); Globulin 3.5 gm/dl (2.5-4.0); Total Protein 5.9 gm/dl (6.4-8.2); Troponin I < 0.015 ng/ml (0-0.045)
[2019-11-25] MEDS ORDERED: CEFTOLOZANE/TAZOBACTAM 1,500 MG in DEXTROSE 5% 100 ML IV STA (16:28)
--- NOTE | 2019-11-25 16:42 | Electrocardiogram Report ---
Test Reason : Blood Pressure : / mmHG Vent. Rate : 080 BPM Atrial Rate : 080 BPM P-R Int : 140 ms QRS Dur : 084 ms QT Int : 418 ms P-R-T Axes : 077 -27 031 degrees QTc Int : 482 ms Poor data quality, interpretation may be adversely affected Normal sinus rhythm Nonspecific ST abnormality Abnormal ECG When compared with ECG of 29-OCT-2019 13:41, No significant change was found Confirmed by Berhane Gutierrez ([id number]) on 11/25/2019 4:41:50 PM Referred By: Osvaldo Middleton Confirmed By:Steven Gutierrez
[2019-11-25] MEDS ORDERED: ACETAMINOPHEN 325 MG TAB PO PRN (18:24)
[2019-11-25] MEDS: MICONAZOLE NITRATE POWDER 43 GM EXT PRN (19:56)
[2019-11-25] MEDS: ASCORBIC ACID 500 MG TAB PO SCH (19:56)
[2019-11-25] MEDS: LOSARTAN POTASSIUM 50 MG TAB PO SCH (19:56)
[2019-11-25] MEDS: HYDROXYCHLOROQUINE SULFATE 200 MG TAB PO SCH (19:57)
[2019-11-25] MEDS: PRAVASTATIN SOD 20 MG TAB PO SCH (19:57)
[2019-11-25] MEDS ORDERED: MUPIROCIN 2% OINT 22 GM TUBE EXT SCH (21:00)
[2019-11-25] MEDS: ENOXAPARIN INJ 40 MG/0.4 ML SYR SQ SCH (23:42)
[2019-11-25] MEDS: CEFTOLOZANE/TAZOBACTAM 3,000 MG in DEXTROSE 5% 100 ML IV SCH (23:43)
--- NOTE | 2019-11-26 08:04 | History & Physical Report ---
Date of Service November 25, 2019 Assessment & Plan (1) Cellulitis of right thigh: Continue Zerbaxa 2g Q8H to cover pseudomonas and prior cultures. Consult ID for ongoing management. (2) Failure of outpatient treatment: as above (3) Bacterial infection due to Pseudomonas: As above (4) Open leg wound: Wound care consult. Appears to be pressure sore due to the size of her legs. (5) CKD (chronic kidney disease) stage 3, GFR 30-59 ml/min: Continues to improve since discharge. Monitor closely given recent history of PRINCESS. (6) Rheumatoid arthritis: Continue plaquenil and prednisone. (7) Peripheral arterial disease: Consult interventional cardiology as she was supposed to follow up after last discharge and now Cr improved if angiogram now recommended. (8) HTN (hypertension): All anti-hypertensives stopped on last admission for septic shock. (9) Chronic anemia: Continue folic acid and iron supplementation. Repeat iron studies with AM labs to see if this can be reduced given improvement in anemia since disharge. (10) Hyperlipidemia: Continue pravastatin 20mg PO HS (11) Obesity: Weight loss, consider nutrition consult (12) Diarrhea: No acute change. Ongoing since last admission. Occasionally watery but x3 /day. Retest for c. diff. If negative can start Imodium PRN. (13) DVT prophylaxis: Lovenox 40mg SQ BID Admission and Anticipated Discharge Date Admission Date: November 25, 2019 History of Present Illness Chief Complaint: Open wound and cellulitis Primary Care Provider: KARI Coughlin Dona Villalpando is a 73 year old female who was sent to the ED by wound care provider after being seen in the office today. I discussed the case with Dr Srinivasan over the phone. 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 She was discharged after a prolonged admission to [facility] and was not referred to wound care until discharge back home. She reports her current wound on right thigh has been progressing since discharge on October 28. She went to wound care initially on November 17 and was and was thought not safe to return home but she didn't want to come to hospital at that time. Wound was cultured and grew pseudomonas and therefore was started on renally dosed ciprofloxacin once cultures were back. Despite this her wound got worse and on follow up today was advised to come to the ER via ambulance (her transport was unable to take her here. She currently denies any fever, chills (although is cold in the current room). Ongoing diarrhea but this has not changed since her last admission, x3 BM /day. In the ER blood and wound cultures retaken and started on Zerbaxa. Allergies Allergy/AdvReac Type Severity Reaction Status Date / Time cefadroxil Allergy Intermediate Rash Verified 11/25/19 14:24 Sulfa (Sulfonamide Allergy Unknown RASH Verified 11/25/19 14:24 Antibiotics) oxycodone AdvReac Unknown NAUSEA Verified 11/25/19 14:24 Home Medications Home Medications Medication Instructions Recorded Confirmed Type hydroxychloroquine 400 mg PO HS 08/06/18 11/25/19 History pravastatin 20 mg PO QPM 08/06/18 11/25/19 History prednisone 7.5 mg PO QAM 08/06/18 11/25/19 History ascorbic acid (vitamin C) [Vitamin 500 mg PO BID 30 Days #60 tab 10/29/19 11/25/19 Rx C] aspirin 81 mg PO DAILY #30 tab 10/29/19 11/25/19 Rx folic acid 1 mg PO QAM #30 tab 10/29/19 11/25/19 Rx witleggcchwq-jbux-htccc acid 1 tab PO QAM 30 Days #30 tab 10/29/19 11/25/19 Rx [Certavite-Antioxidant] pantoprazole 40 mg PO QAM 30 Days #30 tab 10/29/19 11/25/19 Rx zinc sulfate [Orazinc] 220 mg PO QAM 30 Days #30 cap 10/29/19 11/25/19 Rx collagenase clostridium histo. 250 1 applic TOP DAILY #90 gm 11/21/19 11/25/19 R x unit/gram topical ointment ciprofloxacin HCl 250 mg PO Q12H 11/25/19 11/25/19 History ferrous sulfate 325 mg PO TIDM 11/25/19 11/25/19 History mupirocin 1 applic TOPICAL DAILY 11/25/19 11/25/19 History tramadol 50 mg PO Q6H PRN 11/25/19 11/25/19 History Past Med/Surg History Social History Smoking Status: Never smoker Second Hand Exposure: No; Do You Dip or Chew Tobacco: No; Tobacco Cessation Education Requested by Patient: No Hx Alcohol Use: No Hx Substance Use: No Preferred Language: Hebrew Communication Ability: Effective Carbon Printer Required: No Beliefs That Will Affect Care: None marital status: Unknown Current Living Situation: Alone current occupational status: retired 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 Other Information That Helps Us Care for You: No Feels Safe at Home: Yes Safety Concerns: Feels Safe At This Time Review of Systems Review of Systems: All systems reviewed & are unremarkable except as noted in HPI & below Physical Exam Constitutional: well developed and + morbidly obese; + not well nourished and no acute distress Eyes: + anicteric sclerae; normal pupil size ENMT: external ear and nose normal, oropharynx normal Neck: trachea midline, no thyromegaly Respiratory: normal respiratory effort, lungs clear to auscultation Cardiovascular: Rate/Rhythm: regular rate and regular rhythm Heart Sounds: no murmur Extremities: normal capillary refill and + edema (chronic venous stasis changes of b/l lower extremities improved discharge) Gastrointestinal (Abdomen): Inspection/Auscultation: normal bowel sounds Percussion/Palpation: abdomen soft; abdomen nontender, no guarding and abdomen not rigid Musculoskeletal: Head/Neck/Chest: normocephalic and head atraumatic Skin: open leg wound on inner right thigh (see wound care pictures from today) with surrounding erythema, warmth and swelling consistent with cellulitis. Neurologic: moves all extremities and awake; not confused Psychiatric: A+Ox3, euthymic affect Results & Data Results & Data ([facility]) Vital Signs (Past 12 Hours) Vital Signs Temp Pulse Pulse Resp BP BP Pulse Ox 11/26/19 07:20 80 11/26/19 03:27 36.9 C 78 18 127/76 98 11/26/19 00:13 72 11/25/19 23:33 36.9 C 79 18 129/71 99 11/25/19 21:34 90 11/25/19 20:23 36.6 C 86 18 163/65 H 98 ECG Indication: other Rate (beats per minute): 80 Rhythm: normal sinus Findings: + nonspecific-ST abn Comparison ECG Date: from (October 29, 2019) Change: no significant change Code Status & VTE Plan Code Status DNR/DNI VTE Prophylaxis Plan VTE Prophylaxis will be ordered: Yes PG Care Time/CCT Total # of Minutes Spent Total Time Spent with Patient: Total time spent is greater than 50% in coordination of care (as documented) at patient's floor/unit and/or counseling patient: Coding Level of Care Code 87271 Initial Inpt Care Lvl 3 Diagnoses Cellulitis of right thigh L03.115 Failure of outpatient treatment Z78.9 Bacterial infection due to Pseudomonas A49.8 Open leg wound S81.809A Encounter type: initial encounter Laterality: unspecified laterality CKD (chronic kidney disease) stage 3, GFR 30-59 ml/min N18.3 Rheumatoid arthritis M06.9 Rheumatoid arthritis location: unspecified site Rheumatoid factor presence: unspecified presence Peripheral arterial disease I73.9 HTN (hypertension) I10 Hypertension type: essential hypertension Chronic anemia D64.9 Hyperlipidemia E78.2 Hyperlipidemia type: mixed hyperlipidemia Obesity E66.9 Diarrhea R19.7 DVT prophylaxis Z29.9 (1) Open leg wound Encounter type: initial encounter Laterality: unspecified laterality Qualified Code(s): S81.809A - Unspecified open wound, unspecified lower leg, initial encounter (2) Rheumatoid arthritis Rheumatoid arthritis location: unspecified site Rheumatoid factor presence: unspecified presence Qualified Code(s): M06.9 - Rheumatoid arthritis, unspecified (3) HTN (hypertension) Hypertension type: essential hypertension Qualified Code(s): I10 - Essential (primary) hypertension (4) Hyperlipidemia Hyperlipidemia type: mixed hyperlipidemia Qualified Code(s): E78.2 - Mixed hyperlipidemia
[2019-11-26] MEDS: PSYLLIUM 58.6% POWDER PACKET PO SCH ×2 (08:09→20:26)
[2019-11-26] MEDS: CEFTOLOZANE/TAZOBACTAM 3,000 MG in DEXTROSE 5% 100 ML IV SCH ×2 (09:01→15:54)
[2019-11-26] MEDS: LACTOBACILLUS ACIDOPHILUS (FLORANEX) TAB PO SCH ×3 (09:03→16:00)
[2019-11-26] MEDS: FERROUS SULFATE 325 MG TAB PO SCH ×3 (09:08→16:00)
[2019-11-26] MEDS: LOSARTAN POTASSIUM 50 MG TAB PO SCH (09:09)
[2019-11-26] MEDS: ASPIRIN 81 MG ECTAB PO SCH (09:09)
[2019-11-26] MEDS: ENOXAPARIN INJ 40 MG/0.4 ML SYR SQ SCH ×2 (09:09→20:25)
[2019-11-26] MEDS: FOLIC ACID 1 MG TAB PO SCH (09:09)
[2019-11-26] MEDS: CEROVITE ADV FORMULA TAB PO SCH (09:10)
[2019-11-26] MEDS: predniSONE 5 MG TAB PO SCH (09:11)
[2019-11-26] MEDS: PANTOprazole 40 MG TAB PO SCH (09:11)
[2019-11-26] MEDS: ZINC SULFATE 220 MG CAPSULE PO SCH (09:12)
[2019-11-26] MEDS: ASCORBIC ACID 500 MG TAB PO SCH ×2 (09:12→20:27)
[2019-11-26 09:34] LABS: Eosinophils # (auto) 0.49 K/uL (0-0.5); Eosinophils % (auto) 7.9 %; Hematocrit (blood only) 27.3 % (37-47); Hemoglobin 8.3 g/dL (12.0-16.0); Immature Granulocytes # (auto) 0.02 K/uL (0.00-0.02); Immature Granulocytes % (auto) 0.3 %; Lymphocytes # (auto) 0.81 K/uL (1.2-3.4); Mean Corpuscular Hemoglobin 26.9 pg (25-34); Mean Corpuscular Hgb Conc 30.4 g/dL (32-36); Mean Corpuscular Volume 88.6 fL (80-100); Mean Platelet Volume 8.9 fL (7.4-10.4); Monocytes # (auto) 0.24 K/uL (0.11-0.59); Monocytes % (auto) 3.9 %; Neutrophils # (auto) 4.67 K/uL (1.4-6.5); Neutrophils % (auto) 74.9 %; Platelet Count 192 K/uL (130-400); RDW Standard Deviation 55.5 fL (36.4-46.3); Red Blood Count 3.08 M/uL (4.2-5.4); White Blood Count 6.23 K/uL (4.8-10.8)
[2019-11-26 09:56] LABS: BUN Creatinine Ratio 8.8 (10-20); Calcium 8.8 mg/dl (8.5-10.1); Creatinine Clr Calc Pharmacy 51.2 ml/min; Est GFR (African American) 51.4; Est GFR (Non-African American) 44.4; Potassium 3.4 mmol/L (3.5-5.1)
[2019-11-26] MEDS: MUPIROCIN 2% OINT 22 GM TUBE EXT SCH (10:00)
[2019-11-26] MEDS: COLLAGENASE OINT 30 GM TUBE TOP SCH (10:00)
--- NOTE | 2019-11-26 10:35 | Hospitalist Progress Note ---
Date of Service November 26, 2019 Assessment & Plan (1) Cellulitis of right thigh: Dona Villalpando is a 73 y/o female with past medical hx of recent septic shock, CKD, chronic steroid use for RA, HTN, thrombocytopenia, HTN, obesity, chronic lower extremity wounds and cellulitis, who presented from wound care appointment for worsening chronic wounds and cellulitis. - Failed outpatient antibiotics, was on Cipro. Recent wound culture Pseudomonas which was resistant to Fluroquinolones and Aztreonam. - She was started on Zerbaxa 3g Q8H to cover pseudomonas and prior cultures. ID was consulted on admission for ongoing management. - Discussed with pharmacy today and Zerbaxa 3gm is usually reserved for severely ill; recommended to decrease to 1.5gm dosage which I agree with and changes made. - She is on chronic steroids which does increase her risk for infections and causes poor wound healing. This was discussed with her. She notes following with Rheumatology at [place] who tried to wean her but with even a 1mg decrease, she didn't tolerate and had difficulty opening/closing left hand. - I am concerned for deconditioning with recent hospitalizations and PT/OT ordered. She noted PT starting at home but only had very limited appointments, only sitting exercises were performed. - Wound care consulted - Will likely need IV abx on discharge DVT ppx: Lovenox 40mq SQ BID FENGI: Heart Healthy, Protonix 40mg qAM Code: DNR/DNI Dispo: Med/surg tele (2) Failure of outpatient treatment: as above (3) Bacterial infection due to Pseudomonas: Wound culture grew Pseudomonas which was resistant to outpatient antibiotic Ciprofloxacin. (4) Open leg wound: Wound care consulted. Reviewed recent wound care note for location of all wounds: Wound #1, right lower posterior leg measuring 4.5 x 2.7 x 0.2 cm. This is a surface area of 12.15 cm which is a 75% improvement. Wound is covered with fibrin and slough. Periwound is erythematous. There is large amount of drainage and foul odor. Wound #2, left lateral leg measuring 10.7 x 7.5 x 0.2 cm. This is a surface area of 8.25 cm which is measuring worse from last visit. Wound is covered wit h fibrin and slough. Periwound is erythematous. There is large amount of drainage and foul odor. Wound #3, right medial thigh measuring 5.7 x 5.8 x 0.3 cm. This is a surface area 33.06 cm which is measuring worse from last visit. Wound is covered with fibrin and slough. Periwound is erythematous, indurated and inflamed. There is large amount of drainage and foul odor. (5) CKD (chronic kidney disease) stage 3, GFR 30-59 ml/min: Appears stable, trend (6) Rheumatoid arthritis: Continue plaquenil and prednisone. As above, did not tolerate attempts to wean Prednisone last year. (7) Peripheral arterial disease: interventional cardiology was consulted on admission as she was supposed to follow up after last discharge and now Cr improved to see if angiogram now recommended. (8) HTN (hypertension): C/w Losartan 50mg qAM. BP was elevated on admission but now WNL. (9) Chronic anemia: Continue folic acid and iron supplementation. Repeat iron studies with AM labs to see if this can be reduced given improvement in anemia since disharge. (10) Hyperlipidemia: c/w pravastatin 20mg PO HS (11) Obesity: Would benefit from weight loss, but need adequate protein intake for wound healing. (12) Diarrhea: No acute change. Noted to be ongoing since last admission. Occasionally watery but x3/day. Retest for c. diff was ordered on admission, If negative can start Imodium PRN. (13) DVT prophylaxis: Lovenox 40mg SQ BID Admission and Anticipated Discharge Date Admission Date: November 25, 2019 Supervising Physician Co-Signing Physician Notes I personally examined the patient and verified all wood points of history and exam, discussed case, and agree with decision making with Dr Adamson. pt seen at the end of her PT session - doing well overall and in discussion of her home setup, PT believes she would do well at home vitals noted nad but is pleasantly anxious. heent nc at mmm breathing unlabored no accessory muscles good effort R medial thigh ulcer fairly large, fortunately only minimal surrounding erythema, unfortunately does have greenish exudate quite c/w pseudomonas pseudomonal ulcer/cellulitis - given ltitle to no erythema now - appears that cellulitis is improving on zerbaxa. problem is that based on her most recent sensitivities (from the left leg - current ID&S pending) show S to amikacin, cefepime, ceftazidime, gent, imipenem, tobra, zosyn -- making transition to PO essentially impossible - and IV somewhat difficult given dosing frequency of available options. pt would very much like to go home - will ask case management to assist in trying to arrange for this -- continuation of current dosing would be zerbaxa 1.5g Q8 x probably 14 total days (depending on progress), or maybe primaxin 500mg QID x 14 total days of abx. d/w mental health case manager and won't be able to proceed w actual arranging until 11/27 due to insurance being closed on weekend. await current sensitivities. supportive care otherwise as above Subjective No acute events overnight, tolerated breakfast this morning without difficulty. No worsening pains, no chest pain, shortness of breath, nausea, vomiting, diarrhea. She notes she lives by herself but her brother lives below her. She notes she has no stairs at home. She is a strong advocate about not going to SNF/rehab on discharge. Physical Exam Constitutional: + morbidly obese, cooperative and comfortable; no acute distress Eyes: PERRL, conjunctivae normal, anicteric sclerae ENMT: external ear and nose normal, oropharynx normal Neck: normal visual inspection and trachea midline Respiratory: normal respiratory effort, lungs clear to auscultation Cardiovascular: Rate/Rhythm: regular rate and regular rhythm Heart Sounds: + murmur (3/6 systolic) 2+ pedal edema bilaterally Gastrointestinal (Abdomen): Percussion/Palpation: abdomen soft; abdomen nontender, no guarding and abdomen not rigid Musculoskeletal: Head/Neck/Chest: normocephalic and head atraumatic Skin: bilateral leg wraps with erythema superiorly to distal knee which is warm; dressing bandage to left medial thigh. Neurologic: moves all extremities and awake Psychiatric: Orientation: alert and oriented x 3 Eye Contact: + fair eye contact becomes very upset about thought or mention of rehab on discharge Results & Data Results & [facility] ([facility]) Vital Signs (Past 12 Hours) Vital Signs Temp Pulse Pulse Resp BP Pulse Ox 11/26/19 07:40 37.2 C 78 18 123/71 99 11/26/19 07:20 80 11/26/19 03:27 36.9 C 78 18 127/76 98 11/26/19 00:13 72 11/25/19 23:33 36.9 C 79 18 129/71 99 Resident Activity Tracking Resident Involvement: Resident Care Provided Care Provided: Adult Hospital Medicine (1) Rheumatoid arthritis Rheumatoid arthritis location: unspecified site Rheumatoid factor presence: unspecified presence Qualified Code(s): M06.9 - Rheumatoid arthritis, unspecified (2) Hyperlipidemia Hyperlipidemia type: mixed hyperlipidemia Qualified Code(s): E78.2 - Mixed hyperlipidemia (3) Open leg wound Encounter type: initial encounter Laterality: unspecified laterality Qualified Code(s): S81.809A - Unspecified open wound, unspecified lower leg, initial encounter (4) HTN (hypertension) Hypertension type: essential hypertension Qualified Code(s): I10 - Essential (primary) hypertension
[2019-11-26] MEDS ORDERED: POTASSIUM CHLORIDE 20 MEQ/15 ML UDC PO ONE (12:45)
[2019-11-26] MEDS: MICONAZOLE NITRATE POWDER 43 GM EXT PRN (15:01)
--- NOTE | 2019-11-26 15:39 | Billing Data ---
Date of Service November 26, 2019 Coding Level of Care Code 97848 Subseq Hosp Care Lvl 3
[2019-11-26] MEDS: HYDROXYCHLOROQUINE SULFATE 200 MG TAB PO SCH (20:26)
[2019-11-26] MEDS: PRAVASTATIN SOD 20 MG TAB PO SCH (20:27)
[2019-11-26] MEDS: CEFTOLOZANE/TAZOBACTAM 1,500 MG in DEXTROSE 5% 100 ML IV SCH (23:56)
--- NOTE | 2019-11-27 07:16 | Hospitalist Progress Note ---
Date of Service November 27, 2019 Assessment & Plan (1) Cellulitis of right thigh: Dona Villalpando is a 73 y/o female with past medical hx of recent septic shock, CKD, chronic steroid use for RA, HTN, thrombocytopenia, HTN, obesity, chronic lower extremity wounds and cellulitis, who presented from wound care appointment for worsening chronic wounds and cellulitis. - Failed outpatient antibiotics, was on Cipro. Recent wound culture Pseudomonas which was resistant to Fluroquinolones and Aztreonam. - She was started on Zerbaxa 3g Q8H to cover pseudomonas and prior cultures. ID was consulted on admission for ongoing management. - Discussed with pharmacy today and Zerbaxa 3gm is usually reserved for severely ill; on 11/25 recommended to decrease to 1.5gm and changes made. - She is on chronic steroids which does increase her risk for infections and causes poor wound healing. This was discussed with her. She notes following with Rheumatology at [facility] who tried to wean her but with even a 1mg decrease, she didn't tolerate and had difficulty opening/closing left hand. - I am concerned for deconditioning with recent hospitalizations and PT/OT ordered. She noted PT starting at home but only had very limited appointments, only sitting exercises were performed. - Wound care consulted - Will likely need IV abx on discharge, patient is wishing for home IV abx - Right medial thigh wound appears improved today; bilateral leg cellulitis appears improved from yesterday as increase warmth has improved. DVT ppx: Lovenox 40mq SQ BID FENGI: Heart Healthy, Protonix 40mg qAM Code: DNR/DNI Dispo: Med/surg tele (2) Failure of outpatient treatment: as above (3) Bacterial infection due to Pseudomonas: Wound culture grew Pseudomonas which was resistant to outpatient antibiotic Ciprofloxacin. (4) Open leg wound: Wound care consulted. Reviewed recent wound care note for location of all wounds: Wound #1, right lower posterior leg measuring 4.5 x 2.7 x 0.2 cm. This is a surface area of 12.15 cm which is a 75% improvement. Wound is covered with fibrin and slough. Periwound is erythematous. There is large amount of drainage and foul odor. Wound #2, left lateral leg measuring 10.7 x 7.5 x 0.2 cm. This is a surface area of 8.25 cm which is measuring worse from last visit. Wound is covered with fibrin and slough. Periwound is erythematous. There is large amount of drainage and foul odor. Wound #3, right medial thigh measuring 5.7 x 5.8 x 0.3 cm. This is a surface area 33.06 cm which is measuring worse from last visit. Wound is covered with fibrin and slough. Periwound is erythematous, indurated and inflamed. There is large amount of drainage and foul odor. (5) CKD (chronic kidney disease) stage 3, GFR 30-59 ml/min: Appears stable, trend (6) Rheumatoid arthritis: Continue plaquenil and prednisone. As above, did not tolerate attempts to wean Prednisone last year. (7) Peripheral arterial disease: interventional cardiology was consulted on admission as she was supposed to follow up after last discharge and now Cr improved to see if angiogram now recommended. (8) HTN (hypertension): C/w Losartan 50mg qAM. BP was elevated on admission but now WNL. (9) Chronic anemia: Continue folic acid and iron supplementation. Repeat iron studies with AM labs to see if this can be reduced given improvement in anemia since disharge. (10) Hyperlipidemia: c/w pravastatin 20mg PO HS (11) Obesity: Would benefit from weight loss, but need adequate protein intake for wound healing. (12) Diarrhea: No acute change. Noted to be ongoing since last admission. Occasionally watery but x3/day. Retest for c. diff was ordered on admission, If negative can start Imodium PRN. Have not heard really any significant diarrhea complaints while here. (13) DVT prophylaxis: Lovenox 40mg SQ BID Admission and Anticipated Discharge Date Admission Date: November 25, 2019 Supervising Physician Co-Signing Physician Notes I personally examined the patient and verified all wood points of history and exam, discussed case, and agree with decision making with Dr Adamson. feeling ok. no new problems. discussed plan - discussed that with it being a weekend unfortunately case management not able to move forward with trying to obtain abx coverage/etc for home vitals noted nad but is pleasantly anxious. heent nc at mmm breathing unlabored no accessory muscles good effort R medial thigh ulcer fairly large, fortunately only minimal surrounding erythema, unfortunately does have greenish exudate quite c/w pseudomonas, although less green in color today compared to yesterday pseudomonal ulcer/cellulitis - given ltitle to no erythema now - appears that cellulitis is improving on zerbaxa. problem is that based on her most recent sensitivities (now from R leg as well) show S to amikacin, cefepime, ce ftazidime, gent, imipenem, tobra, zosyn -- making transition to PO essentially impossible - and IV somewhat difficult given dosing frequency of available options. pt would very much like to go home - asking case management to assist in trying to arrange for this -- continuation of current dosing would be zerbaxa 1.5g Q8 x probably 14 total days (depending on progress), or maybe primaxin 500mg QID x 14 total days of abx. d/w bilingual patient support caseworker and won't be able to proceed w actual arranging until 11/27 due to insurance being closed on weekend. does appear overall stable but will need complicated course of IV and ongoing wound care otherwise as above Subjective No acute events reported overnight. No acute complaints this morning. No chest pain, dyspnea, N/V/D, tolerated breakfast this morning without difficulty. Physical Exam Constitutional: + morbidly obese, cooperative and comfortable; no acute distress Eyes: PERRL, conjunctivae normal, anicteric sclerae ENMT: external ear and nose normal, oropharynx normal Neck: normal visual inspection and trachea midline Respiratory: normal respiratory effort, lungs clear to auscultation Cardiovascular: Rate/Rhythm: regular rate and regular rhythm Heart Sounds: + murmur (3/6 systolic) Gastrointestinal (Abdomen): Percussion/Palpation: abdomen soft; abdomen nontender, no guarding and abdomen not rigid Musculoskeletal: Head/Neck/Chest: normocephalic and head atraumatic Skin: right medial thigh dressing uncovered to view wound, still with greenish/yellowish appearance but appears less thick than yesterday; bilateral leg cellulitis appears improved as increased warmth has resolved, still erythematous with gauze wrap dressing in place; left medial thigh with dressing bandaid clean/dry/intact Neurologic: moves all extremities and awake Psychiatric: Orientation: alert and oriented x 3 Eye Contact: + fair eye contact Results & Data Results & Data ([facility]) Vital Signs (Past 12 Hours) Vital Signs Temp Pulse Pulse Resp BP Pulse Ox 11/27/19 03:00 36.8 C 73 20 110/66 97 11/27/19 00:27 82 11/26/19 23:03 37.4 C 79 20 125/70 98 11/26/19 19:33 37.3 C 82 20 113/67 97 Laboratory Results Laboratory Results - last 24 hr 11/27/19 11/27/19 07:50 07:50 WBC 7.17 RBC 3.21 L Hgb 8.5 L Hct 28.1 L MCV 87.5 MCH 26.5 MCHC 30.2 L RDW Std Deviation 55.0 H RDW Coeff of Saadia 17.1 H Plt Count 204 MPV 9.4 Sodium 145 Potassium 3.9 Chloride 117 H Carbon Dioxide 24 Anion Gap 5.0 BUN 13 Creatinine 1.42 H Est Cr Clr Drug Dosing 43.7 Est GFR ( Amer) 42.4 Est GFR (Non-Af Amer) 36.5 BUN/Creatinine Ratio 9.4 L Glucose 80 Calcium 8.6 Magnesium 1.7 L Medications Administered Ascorbic Acid (Vitamin C) 500 mg PO BID [facility] Stop: 12/25/19 20:59 Last Admin: 11/27/19 08:06 Dose: 500 mg Documented by: [id number] Admin: 11/26/19 20:27 Dose: 500 mg Documented by: [id number] Admin: 11/26/19 09:12 Dose: 500 mg Documented by: [id number] Admin: 11/25/19 19:56 Dose: 500 mg Documented by: [id number] Aspirin (Ecotrin Ectab) 81 mg PO DAILY [facility] Stop: 12/26/19 08:59 Last Admin: 11/27/19 08:08 Dose: 81 mg Documented by: [id number] Admin: 11/26/19 09:09 Dose: 81 mg Documented by: [id number] Collagenase (Santyl) 1 appln TOP DAILY [facility] Stop: 12/26/19 08:59 Last Admin: 11/27/19 08:09 Dose: 1 appln Documented by: [id number] Admin: 11/26/19 10:00 Dose: 1 appln Documented by: [id number] Enoxaparin Sodium (Lovenox) 40 mg SQ BID [facility] Stop: 12/25/19 22:44 Last Admin: 11/27/19 08:08 Dose: 40 mg Documented by: [id number] Admin: 11/26/19 20:25 Dose: 40 mg Documented by: [id number] Admin: 11/26/19 09:09 Dose: 40 mg Documented by: [id number] Admin: 11/25/19 23:42 Dose: 40 mg Documented by: [id number] Ferrous Sulfate (Feosol) 325 mg PO TIDM [facility] Stop: 12/26/19 07:59 Last Admin: 11/27/19 13:22 Dose: 325 mg Documented by: [id number] Admin: 11/27/19 08:08 Dose: 325 mg Documented by: [id number] Admin: 11/26/19 16:00 Dose: 325 mg Documented by: [id number] Admin: 11/26/19 11:36 Dose: 325 mg Documented by: [id number] Admin: 11/26/19 09:08 Dose: 325 mg Documented by: [id number] Folic Acid (Folvite) 1 mg PO QAM [facility] Stop: 12/26/19 08:59 Last Admin: 11/27/19 08:06 Dose: 1 mg Documented by: [id number] Admin: 11/26/19 09:09 Dose: 1 mg Documented by: [id number] Hydroxychloroquine Sulfate (Plaquenil) 400 mg PO HS [facility] Stop: 12/25/19 20:59 Last Admin: 11/26/19 20:26 Dose: 400 mg Documented by: [id number] Admin: 11/25/19 19:57 Dose: 400 mg Documented by: [id number] Ceftolozane/Tazobactam 1,500 (mg/ Dextrose) 111.4 mls @ 111.4 mls/hr IV Q8H [facility]; Protocol Stop: 12/04/19 00:00 Last Infusion: 11/27/19 11:32 Dose: 0 mls/hr Documented by: [id number] Admin: 11/27/19 08:06 Dose: 111.4 mls/hr Documented by: [id number] Infusion: 11/27/19 01:00 Dose: 0 mls/hr Documented by: [id number] Admin: 11/26/19 23:56 Dose: 111.4 mls/hr Documented by: [id number] Lactobacillus Acidophilus (Floranex) 4 tab PO TIDM [facility] Stop: 12/26/19 07:59 Last Admin: 11/27/19 13:22 Dose: 4 tab Documented by: [id number] Admin: 11/27/19 08:07 Dose: 4 tab Documented by: [id number] Admin: 11/26/19 16:00 Dose: 4 tab Documented by: [id number] Admin: 11/26/19 11:36 Dose: 4 tab Documented by: [id number] Admin: 11/26/19 09:03 Dose: 4 tab Documented by: [id number] Losartan Potassium (Cozaar) 50 mg PO [facility] Stop: 12/25/19 19:29 Last Admin: 11/27/19 08:06 Dose: 50 mg Documented by: [id number] Admin: 11/26/19 09:09 Dose: 50 mg Documented by: [id number] Admin: 11/25/19 19:56 Dose: 50 mg Documented by: [id number] Miconazole Nitrate (Desenex) 1 appln EXT PRN PRN PRN Reason: Affected Skin Folds Stop: 12/25/19 18:25 Last Admin: 11/26/19 15:01 Dose: 1 appln Documented by: [id number] Admin: 11/25/19 19:56 Dose: 1 appln Documented by: [id number] Multivitamins/Minerals (Multivitamin W/ Minerals Tab) 1 tab PO [facility] Stop: 12/26/19 08:59 Last Admin: 11/27/19 08:08 Dose: 1 tab Documented by: [id number] Admin: 11/26/19 09:10 Dose: 1 tab Documented by: [id number] Mupirocin (Bactroban 2%) 1 appln EXT DAILY [facility] Stop: 12/26/19 08:59 Last Admin: 11/27/19 08:09 Dose: 1 appln Documented by: [id number] Admin: 11/26/19 10:00 Dose: 1 appln Documented by: [id number] Pantoprazole Sodium (Protonix) 40 mg PO [facility] Stop: 12/26/19 08:59 Last Admin: 11/27/19 08:07 Dose: 40 mg Documented by: [id number] Admin: 11/26/19 09:11 Dose: 40 mg Documented by: [id number] Pravastatin Sodium (Pravachol) 20 mg PO QPM [facility] Stop: 12/25/19 20:59 Last Admin: 11/26/19 20:27 Dose: 20 mg Documented by: [id number] Admin: 11/25/19 19:57 Dose: 20 mg Documented by: [id number] Prednisone (Prednisone) 7.5 mg PO [facility] Stop: 12/26/19 08:59 Last Admin: 11/27/19 08:08 Dose: 7.5 mg Documented by: [id number] Admin: 11/26/19 09:11 Dose: 7.5 mg Documented by: [id number] Psyllium Hydrophilic Mucilloid (Metamucil) 1 pkt PO BID [facility] Stop: 12/26/19 08:59 Last Admin: 11/27/19 08:07 Dose: Not Given Documented by: [id number] Admin: 11/26/19 20:26 Dose: Not Given Documented by: [id number] Admin: 11/26/19 08:09 Dose: Not Given Documented by: [id number] Zinc Sulfate (Zinc Sulfate) 220 mg PO QAM [facility] Stop: 12/26/19 08:59 Last Admin: 11/27/19 08:06 Dose: 220 mg Documented by: [id number] Admin: 11/26/19 09:12 Dose: 220 mg Documented by: [id number] Resident Activity Tracking Resident Involvement: Resident Care Provided Care Provided: Adult Hospital Medicine (1) Rheumatoid arthritis Rheumatoid arthritis location: unspecified site Rheumatoid factor presence: unspecified presence Qualified Code(s): M06.9 - Rheumatoid arthritis, unspecified (2) Hyperlipidemia Hyperlipidemia type: mixed hyperlipidemia Qualified Code(s): E78.2 - Mixed hyperlipidemia (3) Open leg wound Encounter type: initial encounter Laterality: unspecified laterality Qualified Code(s): S81.809A - Unspecified open wound, unspecified lower leg, initial encounter (4) HTN (hypertension) Hypertension type: essential hypertension Qualified Code(s): I10 - Essential (primary) hypertension
[2019-11-27 08:04] LABS: Hematocrit (blood only) 28.1 % (37-47); Hemoglobin 8.5 g/dL (12.0-16.0); Mean Corpuscular Hemoglobin 26.5 pg (25-34); Mean Corpuscular Hgb Conc 30.2 g/dL (32-36); Mean Corpuscular Volume 87.5 fL (80-100); Mean Platelet Volume 9.4 fL (7.4-10.4); Platelet Count 204 K/uL (130-400); RDW Coefficient of Variation 17.1 % (11.5-14.5); Red Blood Count 3.21 M/uL (4.2-5.4); White Blood Count 7.17 K/uL (4.8-10.8)
[2019-11-27] MEDS: ZINC SULFATE 220 MG CAPSULE PO SCH (08:06)
[2019-11-27] MEDS: CEFTOLOZANE/TAZOBACTAM 1,500 MG in DEXTROSE 5% 100 ML IV SCH ×3 (08:06→23:43)
[2019-11-27] MEDS: FOLIC ACID 1 MG TAB PO SCH (08:06)
[2019-11-27] MEDS: LOSARTAN POTASSIUM 50 MG TAB PO SCH (08:06)
[2019-11-27] MEDS: ASCORBIC ACID 500 MG TAB PO SCH ×2 (08:06→20:08)
[2019-11-27] MEDS: LACTOBACILLUS ACIDOPHILUS (FLORANEX) TAB PO SCH ×3 (08:07→16:05)
[2019-11-27] MEDS: PSYLLIUM 58.6% POWDER PACKET PO SCH ×2 (08:07→20:07)
[2019-11-27] MEDS: PANTOprazole 40 MG TAB PO SCH (08:07)
[2019-11-27] MEDS: FERROUS SULFATE 325 MG TAB PO SCH ×3 (08:08→16:05)
[2019-11-27] MEDS: predniSONE 5 MG TAB PO SCH (08:08)
[2019-11-27] MEDS: CEROVITE ADV FORMULA TAB PO SCH (08:08)
[2019-11-27] MEDS: ENOXAPARIN INJ 40 MG/0.4 ML SYR SQ SCH ×2 (08:08→20:06)
[2019-11-27] MEDS: ASPIRIN 81 MG ECTAB PO SCH (08:08)
[2019-11-27] MEDS: COLLAGENASE OINT 30 GM TUBE TOP SCH (08:09)
[2019-11-27] MEDS: MUPIROCIN 2% OINT 22 GM TUBE EXT SCH (08:09)
[2019-11-27 08:32] LABS: BUN Creatinine Ratio 9.4 (10-20); Calcium 8.6 mg/dl (8.5-10.1); Creatinine Clr Calc Pharmacy 43.7 ml/min; Est GFR (African American) 42.4; Est GFR (Non-African American) 36.5; Magnesium 1.7 mg/dl (1.8-2.4); Potassium 3.9 mmol/L (3.5-5.1)
[2019-11-27] MEDS ORDERED: MAGNESIUM OXIDE 400 MG TAB PO ONE (15:30)
--- NOTE | 2019-11-27 16:27 | Billing Data ---
Date of Service November 27, 2019 Coding Level of Care Code 11618 Subseq Hosp Care Lvl 2
[2019-11-27] MEDS: HYDROXYCHLOROQUINE SULFATE 200 MG TAB PO SCH (20:08)
[2019-11-27] MEDS: PRAVASTATIN SOD 20 MG TAB PO SCH (20:08)
[2019-11-28] MEDS: CEFTOLOZANE/TAZOBACTAM 1,500 MG in DEXTROSE 5% 100 ML IV SCH ×2 (07:51→15:55)
[2019-11-28] MEDS: LACTOBACILLUS ACIDOPHILUS (FLORANEX) TAB PO SCH ×3 (07:51→15:59)
[2019-11-28] MEDS: FERROUS SULFATE 325 MG TAB PO SCH ×3 (07:52→15:59)
[2019-11-28] MEDS: LOSARTAN POTASSIUM 50 MG TAB PO SCH (07:52)
[2019-11-28] MEDS: PSYLLIUM 58.6% POWDER PACKET PO SCH ×2 (07:53→21:20)
[2019-11-28] MEDS: FOLIC ACID 1 MG TAB PO SCH (07:53)
[2019-11-28] MEDS: ENOXAPARIN INJ 40 MG/0.4 ML SYR SQ SCH ×2 (07:53→21:22)
[2019-11-28] MEDS: ASPIRIN 81 MG ECTAB PO SCH (07:53)
[2019-11-28] MEDS: CEROVITE ADV FORMULA TAB PO SCH (07:54)
[2019-11-28] MEDS: predniSONE 5 MG TAB PO SCH (07:55)
[2019-11-28] MEDS: PANTOprazole 40 MG TAB PO SCH (07:55)
[2019-11-28] MEDS: ASCORBIC ACID 500 MG TAB PO SCH ×2 (07:56→21:23)
[2019-11-28] MEDS: ZINC SULFATE 220 MG CAPSULE PO SCH (07:56)
[2019-11-28 08:13] LABS: BUN Creatinine Ratio 13.4 (10-20); Calcium 8.5 mg/dl (8.5-10.1); Creatinine Clr Calc Pharmacy 44.8 ml/min; Est GFR (African American) 44.6; Est GFR (Non-African American) 38.5; Potassium 3.5 mmol/L (3.5-5.1)
[2019-11-28] MEDS: COLLAGENASE OINT 30 GM TUBE TOP SCH (08:45)
[2019-11-28] MEDS: MUPIROCIN 2% OINT 22 GM TUBE EXT SCH (08:46)
[2019-11-28] MEDS: SODIUM CHLORIDE 0.9% 1000ML 1,000 ML IV SCH ×2 (10:36→22:45)
--- NOTE | 2019-11-28 11:54 | Vascular Medicine Consultation ---
Date of Consultation November 28, 2019 Assessment & Plan (1) Peripheral arterial disease: 2. Lower extremity wounds with recurrent cellulitis 3. Suspected chronic venous insufficiency 4. Rheumatoid arthritis 5. Chronic kidney disease 6. Morbid obesity 7. Hypertension Prior arterial duplex raised concern for possible right lower extremity inflow disease. Right lower extremity again appears to be well-perfused with intact distal DP pulse and normal capillary refill. Relatively low suspicion for significant flow-limiting PAD but in the setting of persistent ulcers would pursue additional imaging to define anatomy. With improved renal function recommend CTA with lower extremity runoff at some point. Further evaluation for superficial venous reflux as an outpatient. History of Present Illness Attending Physician: David Dimas MD History of Present Illness Ms. Villalpando is a 73 year old female being seen today for evaluation of vascular disease. Medical significant for peripheral arterial disease, history of lower extremity cellulitis, rheumatoid arthritis, anemia, dyslipidemia and hypertension. In August 2019 she developed bilateral lower extremity wounds with weeping and erythema. Treated with multiple outpatient antibiotics including doxycycline, Keflex and clindamycin without improvement. No preceding trauma. On 10/11/19 she was seen in the ED and given antifungal/steroid cream. She saw her staff air defense officer on 10/14/19 and was sent to the ED for further evaluation. She was hypotensive and tachycardic upon arrival, felt to be in septic shock. She had evidence of acute renal injury with a serum creatinine of 7.9. She required broad spectrum antibiotics, pressors for a period of time in the ICU. Renal function improved and did not require dialysis. Venous duplex with no evidence of DVT. Lower extremity arterial duplex showed monophasic waveforms throughout the right lower extremity suggestive of possible inflow disease and monophasic waveforms in the left tibials. Discharged to rehab on PO cipro. Seen by us last visit. Likelihood of significant inflow disease thought low. Suspicion for CVI high. Outpatient TBI, venous relfux studies recommended. She was readmitted 11/24 due to progression right thigh wound with wound cultures growing Pseudomonas resistant to her p.o. Cipro. Bilateral lower extremities remain Edematous. Knowles ulcerations improved with dressing in place. Social history: Single. Lives alone, brother has apartment on her property. No children. Retired from [employer]. No tobacco, alcohol or drug use. Allergies Allergy/AdvReac Type Severity Reaction Status Date / Time cefadroxil Allergy Intermediate Rash Verified 11/25/19 14:24 Sulfa (Sulfonamide Allergy Unknown RASH Verified 11/25/19 14:24 Antibiotics) oxycodone AdvReac Unknown NAUSEA Verified 11/25/19 14:24 Home Medications Home Medications Medication Instructions Recorded Confirmed Type hydroxychloroquine 400 mg PO HS 08/06/18 11/25/19 History pravastatin 20 mg PO QPM 08/06/18 11/25/19 History prednisone 7.5 mg PO QAM 08/06/18 11/25/19 History ascorbic acid (vitamin C) [Vitamin 500 mg PO BID 30 Days #60 tab 10/29/19 11/25/19 Rx C] aspirin 81 mg PO DAILY #30 tab 10/29/19 11/25/19 Rx folic acid 1 mg PO QAM #30 tab 10/29/19 11/25/19 Rx uswapznijnes-qhwm-kxikg acid 1 tab PO QAM 30 Days #30 tab 10/29/19 11/25/19 Rx [Certavite-Antioxidant] pantoprazole 40 mg PO QAM 30 Days #30 tab 10/29/19 11/25/19 Rx zinc sulfate [Orazinc] 220 mg PO QAM 30 Days #30 cap 10/29/19 11/25/19 Rx collagenase clostridium histo. 250 1 applic TOP DAILY #90 gm 11/21/19 11/25/19 Rx unit/gram topical ointment ciprofloxacin HCl 250 mg PO Q12H 11/25/19 11/25/19 History ferrous sulfate 325 mg PO TIDM 11/25/19 11/25/19 History mupirocin 1 applic TOPICAL DAILY 11/25/19 11/25/19 History tramadol 50 mg PO Q6H PRN 11/25/19 11/25/19 History Patient History Medical History Anemia Bacterial infection due to Serratia Cancer MELANOMA Cellulitis BILATERAL LEGS AND FEET, INPATIENT [facility] (JULY 2018) Chronic steroid use CKD (chronic kidney disease) stage 3, GFR 30-59 ml/min Folate deficiency Fracture of sacrum BILATERAL. ~2016, PHYSICAL THERAPY. USES WALKER HLD (hyperlipidemia) HTN (hypertension) No blood products PER PATIENT REQUEST Obesity Pneumonia AUGUST 2017 Rheumatoid arthritis (Chronic) Septic shock Surgical History History of cataract surgery BILATERAL History of colonoscopy History of surgical removal of skin lesion BACK History of total hip replacement RIGHT S/P revision of total hip RIGHT S/P JUAN-BSO Total knee replacement status BILATERAL Family History Father Non Hodgkin's lymphoma Mother Coronary heart disease Social History Smoking Status: Never smoker Second Hand Exposure: No; Do You Dip or Chew Tobacco: No; Tobacco Cessation Education Requested by Patient: No Hx Alcohol Use: No Hx Substance Use: No Preferred Language: Icelandic Communication Ability: Effective Recreation Aide Required: No Beliefs That Will Affect Care: None marital status: Unknown Current Living Situation: Alone current occupational status: retired 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 Other Information That Helps Us Care for You: No Feels Safe at Home: Yes Safety Concerns: Feels Safe At This Time Review of Systems Review of Systems: All systems reviewed & are unremarkable except as noted in HPI & below Physical Exam Physical Exam: General: No acute distress, comfortable. HEENT: Head is normal. PERRLA. EOMI. Sclerae anicteric. Ears, nose and throat unremarkable. Mucous membranes moist. Neck: JVD difficult to assess. Lungs: Clear to auscultation bilaterally without rales, rhonchi or wheezes. Cardiac: Tachycardic. S1-S2 normal. Grade 1/6 systolic murmur. Abdomen: Soft and nontender. Bowel sounds normal. No mass or organomegaly. No abdominal bruit. Extremities/vascular: --2+ dense peripheral edema to the thighs --Thickened skin with chronic venous stasis changes --Extensive erythema --Knowles ulcerations dressed without surrounding erythema --Right medial thigh ulceration dressed --Radial pulses 2+ bilaterally --Femoral pulses 2+ bilaterally --Popliteal pulses difficult to palpate --DP pulses intact bilaterally, PT difficult to palpate due to edema --Cap refill Normal Psychiatric: Affect appropriate. Alert and oriented. Results & Data Vital Signs (Past 12 Hours) Vital Signs Temp Pulse Pulse Resp BP Pulse Ox 11/28/19 11:18 97.7 F 73 18 111/68 98 11/28/19 07:21 98.1 F 68 18 120/72 98 11/28/19 07:12 72 11/28/19 02:58 97.9 F 79 21 126/61 96 11/28/19 00:07 98.2 F 78 19 123/68 97 11/27/19 23:49 70 PG Care Time/CCT Total # of Minutes Spent Total Time Spent with Patient: Total time spent is greater than 50% in coordination of care (as documented) at patient's floor/unit and/or counseling patient: Coding Level of Care Code 79341 Inpt Consult Level 4 Diagnoses Peripheral arterial disease I73.9
--- NOTE | 2019-11-28 14:23 | Surgery Consultation ---
Date of Consultation November 28, 2019 Assessment & Plan (1) Open leg wound: This is a 73y F with a PMH of RA on chronic steroids, CKD, HTN, peripheral arterial disease, and HLD who presented to the [facility] ED on 11/25/19 from wound clinic with concern for worsening wound healing. She has unfortunately failed outpatient antibiotic therapy and surgery was consulted for consideration of surgical debridement. Wound cultures are growing pseudomonas and she is currently being followed by infectious disease who recommends IV cefepime or zosyn for a 14 day course. On examination patient has an open wound on her R medial thigh, with + induration, is foul smelling, and is associated with a greenish fibrin layer. We will obtain an US of the area to evaluate for any underlying fluid collections. Otherwise, we will make NPO at midnight and plan for surgical debridement of the wound in the OR tomorrow. Patient is agreeable to surgery to help assist with overall wound healing and to get to healthy tissue. Hospitalist to order Covid testing for patient. Supervising Physician Co-Signing Physician Notes Patient seen and examined, agree with above. 73-year-old female with history of RA on steroids and admission in August where she developed multiple pressure ulcers of her lower extremities, admitted from the wound care clinic on Thursday for cellulitis of her right medial thigh. We were consulted today in regards possible debridement of the right medial thigh wound. She has had positive Pseudomonas wound cultures from this wound in the past. She is currently on IV antibiotics. She saw wound care this morning and the nurse felt that she needed further debridement. On exam she is afebrile with stable vitals. The right medial thigh there is no significant erythema but there is a 6 cm x 7 cm wound. At the 5 o'clock position of this wound there is some increased exudate and necrotic tissue of unknown depth. There is induration superior to this. At this point this represents an unstageable wound and needs further debridement. We discussed this with the patient. She was tearful but agreed to proceed with surgery. Plan for debridement of right medial thigh wound in the operating room tomorrow N.p.o. after midnight, continue antibiotic The risk of the procedure were discussed to include but not limited to bleeding, infection, need for future more extensive surgery, damage to surrounding structures, prolonged wound healing, and the risks of anesthesia Wound care plans will be determined by the wound care service after debridement is been completed We will obtain an ultrasound of the area to ensure that there is no underlying undrained fluid collection Diagnosis, details procedure recovery, and plan of care discussed the patient, all questions were answered, the patient expressed understanding agrees with the plan of care as stated History of Present Illness Attending Physician: David Dimas MD History of Present Illness This is a 73y F with a PMH of RA on chronic steroids, CKD, HTN, peripheral arterial disease, and HLD who presented to the [facility] ED on 11/25/19 from wound clinic with concern for worsening wound healing. Of note the patient was admitted here back in September with sepsis requiring a stay in the ICU for bilateral lower extremity cellulitis. She unfortunately has failed outpatient abx therapy, was most recently on a course of Cipro, and was referred to the hospital for IV antibiotics and further management. Patient reports that the wound has been painful and sore. She has been admitted to the medical service with ID, wound care, and vascular consultations placed. We were consulted to evaluate the wound for possible debridement. Patient states she has had a stay at [facility] after she was discharge from the hospital last admission and is currently refusing placement should it be indicated. Case management is working on helping figure out IV abx therapy options upon discharge, she is currently receiving IV Zerbaxa. Allergies Allergy/AdvReac Type Severity Reaction Status Date / Time cefadroxil Allergy Intermediate Rash Verified 11/25/19 14:24 Sulfa (Sulfonamide Allergy Unknown RASH Verified 11/25/19 14:24 Antibiotics) oxycodone AdvReac Unknown NAUSEA Verified 11/25/19 14:24 Home Medications Home Medications Medication Instructions Recorded Confirmed Type hydroxychloroquine 400 mg PO HS 08/06/18 11/25/19 History pravastatin 20 mg PO QPM 08/06/18 11/25/19 History prednisone 7.5 mg PO QAM 08/06/18 11/25/19 History ascorbic acid (vitamin C) [Vitamin 500 mg PO BID 30 Days #60 tab 10/29/19 11/25/19 Rx C] aspirin 81 mg PO DAILY #30 tab 10/29/19 11/25/19 Rx folic acid 1 mg PO QAM #30 tab 10/29/19 11/25/19 Rx numhptgcvrzr-xfik-yvmzr acid 1 tab PO QAM 30 Days #30 tab 10/29/19 11/25/19 Rx [Certavite-Antioxidant] pantoprazole 40 mg PO QAM 30 Days #30 tab 10/29/19 11/25/19 Rx zinc sulfate [Orazinc] 220 mg PO QAM 30 Days #30 cap 10/29/19 11/25/19 Rx collagenase clostridium histo. 250 1 applic TOP DAILY #90 gm 11/21/19 11/25/19 Rx unit/gram topical ointment ciprofloxacin HCl 250 mg PO Q12H 11/25/19 11/25/19 History ferrous sulfate 325 mg PO TIDM 11/25/19 11/25/19 History mupirocin 1 applic TOPICAL DAILY 11/25/19 11/25/19 History tramadol 50 mg PO Q6H PRN 11/25/19 11/25/19 History Patient History Medical History Anemia Bacterial infection due to Serratia Cancer MELANOMA Cellulitis BILATERAL LEGS AND FEET, INPATIENT [facility] (JULY 2018) Chronic steroid use CKD (chronic kidney disease) stage 3, GFR 30-59 ml/min Folate deficiency Fracture of sacrum BILATERAL. ~2016, PHYSICAL THERAPY. USES WALKER HLD (hyperlipidemia) HTN (hypertension) No blood products PER PATIENT REQUEST Obesity Pneumonia AUGUST 2017 Rheumatoid arthritis (Chronic) Septic shock Surgical History History of cataract surgery BILATERAL History of colonoscopy History of surgical removal of skin lesion BACK History of total hip replacement RIGHT S/P revision of total hip RIGHT S/P JUAN-BSO Total knee replacement status BILATERAL Family History Father Non Hodgkin's lymphoma Mother Coronary heart disease Social History Smoking Status: Never smoker Second Hand Exposure: No; Do You Dip or Chew Tobacco: No; Tobacco Cessation Education Requested by Patient: No Hx Alcohol Use: No Hx Substance Use: No Preferred Language: Upper Sorbian Communication Ability: Effective Transfer Worker Required: No Beliefs That Will Affect Care: None marital status: Unknown Current Living Situation: Alone current occupational status: retired 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 Other Information That Helps Us Care for You: No Feels Safe at Home: Yes Safety Concerns: Feels Safe At This Time Review of Systems Integumentary: + sore, open wound on Right medial thigh Physical Exam Physical Exam: awake/alert Respiratory: normal respiratory effort Skin: Right medial thigh wound, foul smelling, minimal surrounding erythema, induration surrounding wound, greenish fibrin Results & Data Vital Signs (Past 12 Hours) Vital Signs Temp Pulse Pulse Resp BP Pulse Ox 11/28/19 11:18 36.5 C 73 18 111/68 98 11/28/19 07:21 36.7 C 68 18 120/72 98 11/28/19 07:12 72 11/28/19 02:58 36.6 C 79 21 126/61 96 PG Care Time/CCT Total # of Minutes Spent Total Time Spent with Patient: Total time spent is greater than 50% in coordination of care (as documented) at patient's floor/unit and/or counseling patient: Coding Level of Care Code 42075 Initial Inpt Care Lvl 2 Diagnoses Open leg wound S81.809A Encounter type: initial encounter Laterality: unspecified laterality (1) Open leg wound Encounter type: initial encounter Laterality: unspecified laterality Qualified Code(s): S81.809A - Unspecified open wound, unspecified lower leg, initial encounter
--- NOTE | 2019-11-28 15:26 | Ultrasound Report ---
US extremity nonvascular CLINICAL HISTORY: eval. R medial thigh wound ?underlying collection COMPARISON STUDY: No previous studies for comparison. FINDINGS: Generalized soft tissue edema. No evidence for abscess or collection. IMPRESSION: Generalized soft tissue edema. No evidence for abscess or collection. ACT 112: Negative or not required by law. The above report was generated using voice recognition software. It may contain grammatical, syntax or spelling errors. Electronically signed by: Rocael Carver M.D. 11/28/2019 3:24 PM
--- NOTE | 2019-11-28 17:17 | Hospitalist Progress Note ---
Date of Service November 28, 2019 Assessment & Plan (1) Cellulitis of right thigh: Dona Villalpando is a 73 y/o female with past medical hx of RA on chronic steroids and PAD who was sent to the hospital directly from her wound care appointment for worsening chronic wounds and bilateral lower extremity cellulitis. Wound was cultured on 11/18/19 and patient was sent home with ciprofloxacin. Culture grew out pseudomonas resistant to Fluroquinolones and Aztreonam. - She was started on Zerbaxa 3g Q8H on admission to cover pseudomonas and prior cultures. - [facility] ID was consulted and recommend converting to Cefepime, 2g, IV q12 for 14 days - General Surgery consulted, plan to take patient to OR tomorrow (11/28) for debridement. US ordered to assess depth of wound/potential soft tissue abscess. Patient NPO after midnight. Rapid COVID ordered. - Wound care following, appreciate recs - vascular surgery consulted, recommending outpatient TBI and venous reflex studies - risk factors for wounds include PAD and chronic steroid use for rheumatoid arthritis. (2) Failure of outpatient treatment: as above (3) Bacterial infection due to Pseudomonas: Wound culture grew Pseudomonas which was resistant to outpatient antibiotic Ciprofloxacin. - management as above (4) CKD (chronic kidney disease) stage 3, GFR 30-59 ml/min: - Cr 1.36, down from 1.42 - started on IV at 90mls/hr (5) Rheumatoid arthritis: - Continue home dose plaquenil and prednisone. - She notes following with Rheumatology at [place] who tried to wean her but with even a 1mg decrease, she didn't tolerate and had difficulty opening/closing left hand. (6) Peripheral arterial disease: - likely contributory to wound development - interventional cardiology (vascular) was consulted on admission as she was supposed to follow up after last discharge - recommending outpatient TBI and venous relux studies (7) HTN (hypertension): - continue Losartan 50mg qAM. (8) Chronic anemia: - Hgb at 8.5, iron level low - Continue folic acid and iron supplementation. (9) Hyperlipidemia: - continue pravastatin 20mg PO HS (10) DVT prophylaxis: Lovenox 40mg SQ BID Diet: heart healthy Dispo: floor Code: DNR/DNI. CM involved for discharge planning. Admission and Anticipated Discharge Date Admission Date: November 25, 2019 Supervising Physician Co-Signing Physician Notes Attending attestation Pt seen and examined in concert with Dr. Alaniz. In agreement with the documented findings as noted in the resident documentation with any exceptions or additions as noted here. Stable complaints as noted in resident documentation. On examination, S1/S2 nl RRR no MCG. CTAB. Abd NT/ND BS+ve. 2+ pitting edema to the knee, wounds as noted. Bilateral lower extremity wounds w/ pseudomonas - transition to IV cefepime as noted to complete 14 day course. Wound care recs appreciated - surgery for OR debridement tomorrow after US today. CKD III - continue IV hydration, trend BMP RA - chronic pred and plaquenil, follows w/ [facility] Rheum PAD - outpatient studies as noted Else see resident documentation as noted. Subjective No acute events overnight. Patient is adamant that she does not want to go back to rehab. She lives alone, however and knows she will need several weeks of IV antibiotics after leaving hospital. Review of Systems Integumentary: + wounds Physical Exam Constitutional: WD/WN, vitals as above + obese and cooperative Eyes: PERRL, conjunctivae normal, anicteric sclerae ENMT: external ear and nose normal, oropharynx normal Neck: normal visual inspection and trachea midline Respiratory: normal respiratory effort, lungs clear to auscultation Cardiovascular: Rate/Rhythm: regular rate and regular rhythm Heart Sounds: normal S1, normal S2 and + murmur (systolic ejection murmur ) Extremities: + pedal edema (+2 pitting edema bilaterally) Gastrointestinal (Abdomen): normal bowel sounds, soft, nontender, no hepatosplenomegaly Skin: + wound (right inner thigh ) and + erythema (bilateral lower legs) Psychiatric: A+Ox3, euthymic affect Results & Data Results & Data ([facility]) Vital Signs (Past 12 Hours) Vital Signs Temp Pulse Pulse Resp BP Pulse Ox 11/28/19 16:38 68 11/28/19 16:05 36.4 C L 74 18 155/84 H 98 11/28/19 11:18 36.5 C 73 18 111/68 98 11/28/19 07:21 36.7 C 68 18 120/72 98 11/28/19 07:12 72 Resident Activity Tracking Resident Involvement: Resident Care Provided Care Provided: Adult Hospital Medicine (1) Rheumatoid arthritis Rheumatoid arthritis location: unspecified site Rheumatoid factor presence: unspecified presence Qualified Code(s): M06.9 - Rheumatoid arthritis, unspecified (2) Hyperlipidemia Hyperlipidemia type: mixed hyperlipidemia Qualified Code(s): E78.2 - Mixed hyperlipidemia (3) HTN (hypertension) Hypertension type: essential hypertension Qualified Code(s): I10 - Essential (primary) hypertension
--- NOTE | 2019-11-28 18:39 | Anesthesiology Consultation ---
Date of Service November 28, 2019 Assessment & Plan Chart Review Chart Review: Acceptable Risk for Surgery and Patient NOT seen in Pre Admission Testing History Surgery Operation Date: 11/29/19 07:00 Proposed Procedures p Right Upper Thigh Incision and Drainage - Shant Peter DO, FACS Height/Weight Height: 5 ft 5 in Weight: 107 kg Allergies Allergy/AdvReac Type Severity Reaction Status Date / Time cefadroxil Allergy Intermediate Rash Verified 11/25/19 14:24 Sulfa (Sulfonamide Allergy Unknown RASH Verified 11/25/19 14:24 Antibiotics) oxycodone AdvReac Unknown NAUSEA Verified 11/25/19 14:24 Medications Home Medications Medication Instructions Recorded Confirmed Last Taken hydroxychloroquine 400 mg PO HS 08/06/18 11/25/19 10/20/18 pravastatin 20 mg PO QPM 08/06/18 11/25/19 10/20/18 prednisone 7.5 mg PO QAM 08/06/18 11/25/19 10/20/18 ascorbic acid (vitamin C) [Vitamin 500 mg PO BID 30 Days #60 tab 10/29/19 11/25/19 Unknown C] aspirin 81 mg PO DAILY #30 tab 10/29/19 11/25/19 Unknown folic acid 1 mg PO QAM #30 tab 10/29/19 11/25/19 Unknown wzzclpumjtus-foht-nlkyo acid 1 tab PO QAM 30 Days #30 tab 10/29/19 11/25/19 Unknown [Certavite-Antioxidant] pantoprazole 40 mg PO QAM 30 Days #30 tab 10/29/19 11/25/19 Unknown zinc sulfate [Orazinc] 220 mg PO QAM 30 Days #30 cap 10/29/19 11/25/19 Unknown collagenase clostridium histo. 250 1 applic TOP DAILY #90 gm 11/21/19 11/25/19 Unknown unit/gram topical ointment ciprofloxacin HCl 250 mg PO Q12H 11/25/19 11/25/19 Unknown ferrous sulfate 325 mg PO TIDM 11/25/19 11/25/19 Unknown mupirocin 1 applic TOPICAL DAILY 11/25/19 11/25/19 Unknown tramadol 50 mg PO Q6H PRN 11/25/19 11/25/19 Unknown Active Medications Generic Name Dose Route Start Last Admin Trade Name Freq PRN Reason Stop Dose Admin Ascorbic Acid 500 mg 11/25/19 21:00 11/28/19 07:56 Vitamin C PO 12/25/19 20:59 500 mg BID FRANSISCO Administration Aspirin 81 mg 11/26/19 09:00 11/28/19 07:53 Ecotrin Ectab PO 12/26/19 08:59 81 mg DAILY FRANSISCO Administration Collagenase 1 appln 11/26/19 09:00 11/28/19 08:45 Santyl TOP 12/26/19 08:59 1 appln DAILY FRANSISCO Administration Enoxaparin Sodium 40 mg 11/25/19 22:45 11/28/19 07:53 Lovenox SQ 12/25/19 22:44 40 mg BID FRANSISCO Administration Ferrous Sulfate 325 mg 11/26/19 08:00 11/28/19 15:59 Feosol PO 12/26/19 07:59 325 mg TIDM FRANSISCO Administration Folic Acid 1 mg 11/26/19 09:00 11/28/19 07:53 Folvite PO 12/26/19 08:59 1 mg QAM FRANSISCO Administration Hydroxychloroquine Sulfate 400 mg 11/25/19 21:00 11/27/19 20:08 Plaquenil PO 12/25/19 20:59 400 mg HS FRANSISCO Administration Sodium Chloride 1,000 mls @ 90 mls/hr 11/28/19 09:30 11/28/19 15:35 Nss 1000ml IV 12/28/19 09:29 90 mls/hr .[id number] FRANSISCO Infusion Lactobacillus Acidophilus 4 tab 11/26/19 08:00 11/28/19 15:59 Floranex PO 12/26/19 07:59 4 tab TIDM FRANSISCO Administration Losartan Potassium 50 mg 11/25/19 19:30 11/28/19 07:52 Cozaar PO 12/25/19 19:29 50 mg QAM FRANSISCO Administration Miconazole Nitrate 1 appln 11/25/19 18:26 11/26/19 15:01 Desenex EXT 12/25/19 18:25 1 appln PRN PRN Administration Affected Skin Folds Multivitamins/Minerals 1 tab 11/26/19 09:00 11/28/19 07:54 Multivitamin W/ Minerals Tab PO 12/26/19 08:59 1 tab QAM FRANSISCO Administration Pantoprazole Sodium 40 mg 11/26/19 09:00 11/28/19 07:55 Protonix PO 12/26/19 08:59 40 mg QAM FRANSISCO Administration Pravastatin Sodium 20 mg 11/25/19 21:00 11/27/19 20:08 Pravachol PO 12/25/19 20:59 20 mg QPM RFANSISCO Administration Prednisone 7.5 mg 11/26/19 09:00 11/28/19 07:55 Prednisone PO 12/26/19 08:59 7.5 mg QAM FRANSISCO Administration Psyllium Hydrophilic Mucilloid 1 pkt 11/26/19 09:00 11/28/19 07:53 Metamucil PO 12/26/19 08:59 Not Given BID FRANSISCO Zinc Sulfate 220 mg 11/26/19 09:00 11/28/19 07:56 Zinc Sulfate PO 12/26/19 08:59 220 mg QAM FRANSISCO Administration Past Medical History Medical History Anemia Bacterial infection due to Serratia Cancer MELANOMA Cellulitis BILATERAL LEGS AND FEET, INPATIENT [facility] (JULY 2018) Chronic steroid use CKD (chronic kidney disease) stage 3, GFR 30-59 ml/min Folate deficiency Fracture of sacrum BILATERAL. ~2016, PHYSICAL THERAPY. USES WALKER HLD (hyperlipidemia) HTN (hypertension) No blood products PER PATIENT REQUEST Obesity Pneumonia AUGUST 2017 Rheumatoid arthritis (Chronic) Septic shock Past Family History Family History Father Non Hodgkin's lymphoma Mother Coronary heart disease Past Surgical History Surgical History History of cataract surgery BILATERAL History of colonoscopy History of surgical removal of skin lesion BACK History of total hip replacement RIGHT S/P revision of total hip RIGHT S/P JUAN-BSO Total knee replacement status BILATERAL Social History Smoking Status: Never smoker Do You Dip or Chew Tobacco: No Hx Alcohol Use: No Alcohol type: wine alcohol intake frequency: holidays/special occasions only Hx Substance Use: No substance use type: does not use Physical Exam Vital Signs Last Vital Signs Temp 36.4 C L 11/28/19 16:05 Pulse 68 11/28/19 16:38 Resp 18 11/28/19 16:05 BP 155/84 H 11/28/19 16:05 Pulse Ox 98 11/28/19 16:05 Testing Laboratory Results 11/27/19 07:50 11/28/19 06:55 PT 11.4 Seconds (9.0-12.0) 11/25/19 15:45 INR 1.1 (0.9-1.1) 11/25/19 15:45 11/25/19 16:05 Aerobic Blood Culture - Preliminary Blood No growth in Aerobic bottle after 48 hours. Anaerobic Blood Culture - Preliminary No growth in Anaerobic bottle after 48 hours. 11/25/19 15:45 Aerobic Blood Culture - Preliminary Blood No growth in Aerobic bottle after 48 hours. Anaerobic Blood Culture - Preliminary No growth in Anaerobic bottle after 48 hours. 11/25/19 15:30 Gram Stain - Final Thigh,Right Wound Culture - Final Pseudomonas aeruginosa Echocardiogram Date: 10/21/18 EF: 60% LV Function: normal Valvular Disease: + MS (moderate)
[2019-11-28] MEDS: PRAVASTATIN SOD 20 MG TAB PO SCH (21:23)
[2019-11-28] MEDS: HYDROXYCHLOROQUINE SULFATE 200 MG TAB PO SCH (21:23)
[2019-11-29] MEDS: CEFEPIME 2,000 MG in SYRINGE 7.5 ML IV SCH ×2 (05:59→18:27)
[2019-11-29] MEDS ORDERED: PROPOFOL IV EMULSION 10 MG/ML 20 ML VIAL IV ONE (06:54)
[2019-11-29] MEDS ORDERED: ONDANSETRON INJ 2 MG/ML 2 ML VIAL ONE (06:54)
[2019-11-29] MEDS ORDERED: fentaNYL citrate 100 MCG/2 ML VIAL ONE ×2 (06:54→08:34)
[2019-11-29] MEDS ORDERED: DEXAMETHASONE SOD INJ 4 MG/ML VIAL ONE (06:54)
[2019-11-29] MEDS ORDERED: MIDAZOLAM HCL 1 MG/ML 2ML VIAL ONE (06:54)
[2019-11-29] MEDS ORDERED: LIDOCAINE HCL 2% 2 ML VIAL/AMP(20MG/ML) INFIL ONE (06:54)
--- NOTE | 2019-11-29 07:01 | Hospitalist Progress Note ---
Date of Service November 29, 2019 Assessment & Plan (1) Cellulitis of right thigh: Dona Villalpando is a 73 y/o female with past medical hx of RA on chronic steroids and PAD who was sent to the hospital directly from her wound care appointment for worsening chronic wounds and bilateral lower extremity cellulitis. Wound was cultured on 11/18/19 and patient was sent home with ciprofloxacin. Culture grew out pseudomonas resistant to Fluroquinolones and Aztreonam. Currently on IV Cefepime. Gen Surgery took patient to OR today for debridement. Surgery went well without complications, dressing change tomorrow by surgery team. - She was started on Zerbaxa 3g Q8H on admission to cover pseudomonas and prior cultures. - [facility] ID was consulted and recommend converting to Cefepime, 2g, IV q12 for 14 days (currently on Day 5 of 14 of IV abx) - WBC continues to be normal, patient afebrile - General Surgery took patient to OR today for debridement. Incentive spirometer ordered for post-op period. - surgery recommending rheumatology consult in the event this represents a cutaneous manifestation of RA. Unsure if Rheumatology comes to hospital. If not will arrange as outpatient. - Wound care following, appreciate recs - vascular surgery consulted, recommending outpatient TBI and venous reflex studies - risk factors for wounds include PAD and chronic steroid use for rheumatoid arthritis. (2) Failure of outpatient treatment: as above (3) Bacterial infection due to Pseudomonas: Wound culture grew Pseudomonas which was resistant to outpatient antibiotic Ciprofloxacin. - management as above (4) CKD (chronic kidney disease) stage 3, GFR 30-59 ml/min: - Cr 1.41, up from 1..18 on admission - continue IV at 90mls/hr (5) Rheumatoid arthritis: - Continue home dose plaquenil and prednisone. - She notes following with Rheumatology at [place] who tried to wean her but with even a 1mg decrease, she didn't tolerate and had difficulty opening/closing left hand. (6) Peripheral arterial disease: - likely contributory to wound development - interventional cardiology (vascular) was consulted on admission as she was supposed to follow up after last discharge - recommending outpatient TBI and venous relux studies (7) HTN (hypertension): - continue Losartan 50mg qAM. (8) Chronic anemia: - Hgb at 8.5, iron level low - Continue folic acid and iron supplementation. (9) Hyperlipidemia: - continue pravastatin 20mg PO HS (10) DVT prophylaxis: Lovenox 40mg SQ BID Diet: heart healthy Dispo: floor Code: DNR/DNI. CM involved for discharge planning. Admission and Anticipated Discharge Date Admission Date: November 25, 2019 Supervising Physician Co-Signing Physician Notes Attending attestation Pt seen and examined in concert with Dr. Alaniz. In agreement with the documented findings as noted in the resident documentation with any exceptions or additions as noted here. Postoperatively, some sedation but conversant and oriented. Still working on coordination of administration of outpatient abx On examination, S1/S2 nl RRR no MCG. CTAB. Abd NT/ND BS+ve. 2+ pitting edema to the knee, wounds as noted. Right thigh wound - likely pressure ulcer > Stg III - w/ pseudomonas - s/p debridement from surgery - Continue cefepime, will need IV at home to complete. Wound care recs appreciated. CKD III - continue IV hydration, trend BMP RA - chronic pred and plaquenil, follows w/ [facility] PAD - outpatient studies as noted Else see resident documentation as noted. Subjective no acute events overnight. Patient does not want to go to rehab, yet she will need a total of 14 days of IV antibiotics at home - while she can get home health set up, she questions why they cannot come everyday to adminster for antibiotics. She was made aware she will need to have a family member learn to do it. Review of Systems Integumentary: + wounds Physical Exam Constitutional: WD/WN, vitals as above + obese and cooperative Eyes: PERRL, conjunctivae normal, anicteric sclerae ENMT: external ear and nose normal, oropharynx normal Neck: normal visual inspection and trachea midline Respiratory: normal respiratory effort, lungs clear to auscultation Cardiovascular: Rate/Rhythm: regular rate and regular rhythm Heart Sounds: normal S1, normal S2 and + murmur (systolic ejection murmur ) Extremities: + pedal edema (+2 pitting edema bilaterally) Gastrointestinal (Abdomen): normal bowel sounds, soft, nontender, no hepatosplenomegaly Skin: + wound (right inner thigh ) and + erythema (bilateral lower legs) Psychiatric: A+Ox3, euthymic affect Results & Data Results & Data ([facility]) Vital Signs (Past 12 Hours) Vital Signs Temp Pulse Pulse Resp BP Pulse Ox 11/29/19 04:54 36.6 C 72 20 144/77 H 98 11/28/19 23:32 37.1 C 71 18 132/72 95 11/28/19 23:20 76 11/28/19 19:44 36.9 C 72 18 128/70 97 Resident Activity Tracking Resident Involvement: Resident Care Provided Care Provided: Adult [facility] (1) Rheumatoid arthritis Rheumatoid arthritis location: unspecified site Rheumatoid factor presence: unspecified presence Qualified Code(s): M06.9 - Rheumatoid arthritis, unspecified (2) Hyperlipidemia Hyperlipidemia type: mixed hyperlipidemia Qualified Code(s): E78.2 - Mixed hyperlipidemia (3) HTN (hypertension) Hypertension type: essential hypertension Qualified Code(s): I10 - Essential (primary) hypertension
[2019-11-29] MEDS ORDERED: PHENYLEPHRINE 100MCG/ML 5ML SYR IV PRN (07:15)
[2019-11-29] MEDS ORDERED: ePHEDrine sulfate 50 MG/ML AMP IV PRN (07:15)
[2019-11-29] MEDS ORDERED: LABETALOL HCL IV 5 MG/ML 20ML IV PRN (07:15)
[2019-11-29] MEDS ORDERED: ONDANSETRON INJ 2 MG/ML 2 ML VIAL IV PRN (07:15)
[2019-11-29] MEDS ORDERED: ATROPINE SULFATE 0.1 MG/ML 10ML SYR IV PRN (07:15)
--- NOTE | 2019-11-29 07:25 | Surgery Progress Note ---
Date of Service November 29, 2019 Assessment & Plan (1) Pressure ulcer of upper thigh: Pressure ulcer of right thigh in need of surgical debridement Plan for debridement of right medial thigh wound The risk of the procedure were discussed to include but not limited to bleeding, infection, need for future more extensive surgery, damage to surrounding structures, prolonged wound healing, and the risks of anesthesia Wound care plans will be determined by the wound care service after debridement has been completed Diagnosis, details procedure recovery, and plan of care discussed the patient, all questions were answered, the patient expressed understanding agrees with the plan of care as stated Subjective 73-year-old female with history of RA on steroids and admission in August where she developed multiple pressure ulcers of her lower extremities, admitted from the wound care clinic on Thursday for cellulitis of her right medial thigh. Ultrasound yesterday showed no evidence of undrained fluid collection. Cultures have been growing out Pseudomonas. Physical Exam Constitutional: WD/WN, vitals as above + morbidly obese Skin: no rashes, warm and dry + ulcer (Pressure ulcer on medial right thigh 6 x 7 cm in size) Results & Data Vital Signs (Past 12 Hours) Vital Signs Temp Pulse Pulse Resp BP Pulse Ox 11/29/19 04:54 36.6 C 72 20 144/77 H 98 11/28/19 23:32 37.1 C 71 18 132/72 95 11/28/19 23:20 76 11/28/19 19:44 36.9 C 72 18 128/70 97 Diagnostic Findings US extremity nonvascular CLINICAL HISTORY: eval. R medial thigh wound ?underlying collection COMPARISON STUDY: No previous studies for comparison. FINDINGS: Generalized soft tissue edema. No evidence for abscess or collection. IMPRESSION: Generalized soft tissue edema. No evidence for abscess or collection. PG Care Time/CCT Total # of Minutes Spent Total Time Spent with Patient: Total time spent is greater than 50% in coordination of care (as documented) at patient's floor/unit and/or counseling patient: Coding Level of Care Code 95085 Inpt Consult Level 2 Diagnoses Pressure ulcer of upper thigh L89.209
[2019-11-29 07:27] LABS: Eosinophils # (auto) 1.23 K/uL (0-0.5); Eosinophils % (auto) 18.3 %; Hemoglobin 8.3 g/dL (12.0-16.0); Immature Granulocytes # (auto) 0.04 K/uL (0.00-0.02); Immature Granulocytes % (auto) 0.6 %; Lymphocytes # (auto) 1.18 K/uL (1.2-3.4); Lymphocytes % (auto) 17.5 %; Mean Corpuscular Hemoglobin 26.5 pg (25-34); Mean Corpuscular Hgb Conc 29.6 g/dL (32-36); Mean Corpuscular Volume 89.5 fL (80-100); Mean Platelet Volume 9.4 fL (7.4-10.4); Monocytes # (auto) 0.45 K/uL (0.11-0.59); Monocytes % (auto) 6.7 %; Neutrophils # (auto) 3.83 K/uL (1.4-6.5); Neutrophils % (auto) 56.9 %; Platelet Count 203 K/uL (130-400); RDW Coefficient of Variation 17.3 % (11.5-14.5); RDW Standard Deviation 56.9 fL (36.4-46.3); Red Blood Count 3.13 M/uL (4.2-5.4); White Blood Count 6.73 K/uL (4.8-10.8)
[2019-11-29] MEDS ORDERED: BUPIVACAINE 0.5 % 5 MG/1 ML MPF 30ML VIAL ONE (07:44)
[2019-11-29 07:54] LABS: BUN Creatinine Ratio 15.7 (10-20); Calcium 7.8 mg/dl (8.5-10.1); Creatinine Clr Calc Pharmacy 43.7 ml/min; Est GFR (African American) 42.7; Est GFR (Non-African American) 36.9; Potassium 3.5 mmol/L (3.5-5.1)
[2019-11-29] MEDS ORDERED: BUPIVACAINE LIPOSOME 1.3% 133 MG/10 ML VIAL INFIL ONE (08:40)
[2019-11-29] MEDS ORDERED: ePHEDrine sulfate 50 MG/ML SYR ONE (08:46)
[2019-11-29] MEDS ORDERED: PHENYLEPHRINE 100MCG/ML 5ML SYR ONE (08:46)
--- NOTE | 2019-11-29 08:56 | Operative Report ---
PG Post Operative Report Pre & Post Diagnosis Operation Date: 11/29/19 07:00 Pre-Op Diagnosis: Right Thigh Pressure ulcer Post-Op Diagnosis: Right Thigh Pressure ulcer I identified the patient and participated in the time-out.: Yes Procedure Operation Date: 11/29/19 07:00 Actual Procedures p Right Thigh wound debridement, sharp, greater than 50 cm - Shant Peter DO, CAIT Surgeon Shant Peter DO, CAIT Supervisor Blast Furnace None Estimated Blood Loss 40 Findings Consistent with Post-Op Diagnosis Significant necrotic fat and tissue debrided using cautery and sharp dissection. Ligation of portion of greater saphenous or microwave technician x2. Wound measured 10 cm x 9 cm x 3.5 cm deep. Specimens 1. Right thigh wound debridement 2. Right thigh fat, rule out vasculitis Anesthesia Type General Complications none Disposition Accompanied Patient To Recovery: No Disposition: Recovery Room Indications 73-year-old female with history of rheumatoid arthritis and multiple medical problems, now with suspected pressure ulcer of her right medial thigh with chronic Pseudomonas infection and need for further debridement. Plan for debridement right thigh wound. The risks of the procedure were discussed, all questions were answered, and the patient agreed to proceed with surgery as planned. Description of Procedure The patient was properly identified, consented, and taken to the operating room where she was placed in the supine position. General anesthesia with a laryngeal mask was induced. SCDs and a safety belt were placed. The patient's right thigh was prepped and draped in the standard sterile fashion. Surgical timeout was performed and all parties were in agreement that this was the correct patient and procedure to be performed and we continued as planned. We began by debriding nonviable tissue starting with the skin. This was a combination of sharp dissection and cautery. I continued the debridement until I encountered softer, healthier, and bleeding tissue. During the dissection on 2 separate occasions we encountered a decent size venous structure that either represented perforators or a portion of the greater saphenous vein. This was ligated with 3-0 silk ties. We did send a piece of healthy fat to rule out vasculitis as well as the remainder of the debrided tissue to pathology. Pressure was held in the wound and hemostasis appeared adequate. The wound was irrigated. Marcaine mixed with Exparel was injected into the fat and surrounding tissues. The wound was packed with Kerlix rolled gauze x2. Gauze and ABD were placed over the wound. The final size of the wound was 10 cm x 9 cm x 3.5 cm deep. This represented a sharp debridement of greater than 50 cm. The patient was extubated in the operating room and taken to the PACU where she recovered without apparent incident. All sponge, instrument and needle counts were correct at the conclusion of the procedure. The patient tolerated the procedure well. I attest to the content of the Intraoperative Record and any orders documented therein. Any exceptions are noted below.
[2019-11-29] MEDS: FERROUS SULFATE 325 MG TAB PO SCH ×3 (09:07→17:08)
[2019-11-29] MEDS: LACTOBACILLUS ACIDOPHILUS (FLORANEX) TAB PO SCH ×3 (09:07→17:08)
[2019-11-29] MEDS: PSYLLIUM 58.6% POWDER PACKET PO SCH ×2 (09:07→21:04)
[2019-11-29] MEDS: ASCORBIC ACID 500 MG TAB PO SCH ×2 (09:08→21:04)
[2019-11-29] MEDS: fentaNYL citrate 100 MCG/2 ML VIAL IV PRN ×4 (09:12→09:29)
--- NOTE | 2019-11-29 09:37 | Surgery Consultation ---
Date of Consultation November 29, 2019 Assessment & Plan (1) Pressure ulcer of upper thigh: s/p debridement wound care can change dressing starting tomorrow, Nov would use white foam or hold off on wound vac for a few days given location with GSV and/or facilities clerk in wound recommend rheumatology consult as this may represent cutaneous manifestation of RA If further debridement required, consider outpatient eval at tertiary center surgery will follow History of Present Illness Attending Physician: David Dimas MD Allergies Allergy/AdvReac Type Severity Reaction Status Date / Time cefadroxil Allergy Intermediate Rash Verified 11/25/19 14:24 Sulfa (Sulfonamide Allergy Unknown RASH Verified 11/25/19 14:24 Antibiotics) oxycodone AdvReac Unknown NAUSEA Verified 11/25/19 14:24 Home Medications Home Medications Medication Instructions Recorded Confirmed Type hydroxychloroquine 400 mg PO HS 08/06/18 11/25/19 History pravastatin 20 mg PO QPM 08/06/18 11/25/19 History prednisone 7.5 mg PO QAM 08/06/18 11/25/19 History ascorbic acid (vitamin C) [Vitamin 500 mg PO BID 30 Days #60 tab 10/29/19 11/25/19 Rx C] aspirin 81 mg PO DAILY #30 tab 10/29/19 11/25/19 Rx folic acid 1 mg PO QAM #30 tab 10/29/19 11/25/19 Rx oalnyqzzdxdi-aaau-hgmem acid 1 tab PO QAM 30 Days #30 tab 10/29/19 11/25/19 Rx [Certavite-Antioxidant] pantoprazole 40 mg PO QAM 30 Days #30 tab 10/29/19 11/25/19 Rx zinc sulfate [Orazinc] 220 mg PO QAM 30 Days #30 cap 10/29/19 11/25/19 Rx collagenase clostridium histo. 250 1 applic TOP DAILY #90 gm 11/21/19 11/25/19 Rx unit/gram topical ointment ciprofloxacin HCl 250 mg PO Q12H 11/25/19 11/25/19 History ferrous sulfate 325 mg PO TIDM 11/25/19 11/25/19 History mupirocin 1 applic TOPICAL DAILY 11/25/19 11/25/19 History tramadol 50 mg PO Q6H PRN 11/25/19 11/25/19 History Patient History Medical History (Updated 11/29/19 @ 07:24 by Shant Peter DO, FACS) Anemia 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 ~2017, PHYSICAL THERAPY. USES WALKER HLD (hyperlipidemia) HTN (hypertension) No blood products PER PATIENT REQUEST Obesity Pneumonia AUGUST 2017 Pressure ulcer of upper thigh Rheumatoid arthritis (Chronic) Septic shock Surgical History History of cataract surgery BILATERAL History of colonoscopy History of surgical removal of skin lesion BACK History of total hip replacement RIGHT S/P revision of total hip RIGHT S/P JUAN-BSO Total knee replacement status BILATERAL Family History Father Non Hodgkin's lymphoma Mother Coronary heart disease Social History Smoking Status: Never smoker Second Hand Exposure: No; Do You Dip or Chew Tobacco: No; Tobacco Cessation Education Requested by Patient: No Hx Alcohol Use: No Hx Substance Use: No Preferred Language: Macedonian Communication Ability: Effective Manager Location Required: No Beliefs That Will Affect Care: None marital status: Unknown Current Living Situation: Alone current occupational status: retired 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 Other Information That Helps Us Care for You: No Feels Safe at Home: Yes Safety Concerns: Feels Safe At This Time Results & Data Vital Signs (Past 12 Hours) Vital Signs Temp Pulse Pulse Pulse Resp BP BP 11/29/19 09:30 85 14 102/71 11/29/19 09:20 85 14 114/67 11/29/19 09:10 85 13 120/68 11/29/19 09:01 36.2 C L 87 16 104/75 11/29/19 07:19 36.8 C 71 20 131/52 L 11/29/19 04:54 36.6 C 72 20 144/77 H 11/28/19 23:32 37.1 C 71 18 132/72 11/28/19 23:20 76 Pulse Ox 11/29/19 09:30 98 08/11/20 09:20 100 11/29/19 09:10 100 11/29/19 09:01 100 11/29/19 07:19 97 11/29/19 04:54 98 11/28/19 23:32 95 11/28/19 23:20 PG Care Time/CCT Total # of Minutes Spent Total Time Spent with Patient: Total time spent is greater than 50% in coordination of care (as documented) at patient's floor/unit and/or counseling patient: Coding Level of Care Code None Diagnoses Pressure ulcer of upper thigh L89.209
--- NOTE | 2019-11-29 09:54 | Anesthesiology Progress Note ---
Date of Service November 29, 2019 Anesthesia Post Procedure Vital Signs Vital Signs: Temp Pulse Pulse Pulse Resp BP BP 11/29/19 09:40 36.6 C 84 20 125/68 11/29/19 09:30 85 14 102/71 11/29/19 09:20 85 14 114/67 11/29/19 09:10 85 13 120/68 11/29/19 09:01 36.2 C L 87 16 104/75 11/29/19 07:19 36.8 C 71 20 131/52 L 11/29/19 04:54 36.6 C 72 20 144/77 H 11/28/19 23:32 37.1 C 71 18 132/72 11/28/19 23:20 76 11/28/19 19:44 36.9 C 72 18 128/70 11/28/19 16:38 68 11/28/19 16:05 36.4 C L 74 18 155/84 H 11/28/19 11:18 36.5 C 73 18 111/68 Pulse Ox 11/29/19 09:40 98 11/29/19 09:30 98 11/29/19 09:20 100 11/29/19 09:10 100 11/29/19 09:01 100 11/29/19 07:19 97 11/29/19 04:54 98 11/28/19 23:32 95 11/28/19 23:20 11/28/19 19:44 97 11/28/19 16:38 11/28/19 16:05 98 11/28/19 11:18 98 Pain Intensity Right Upper Medial Thigh: Pain Intensity: 4 Transfer of Care Handoff Completed per policy Notes Mental Status: alert / awake / arousable Patient Amnestic to Procedure: Yes Nausea / Vomiting: adequately controlled Pain: adequately controlled Airway Patency, RR, SpO2: stable & adequate BP & HR: stable & adequate Hydration State: stable & adequate Anesthetic Complications: no major complications apparent and Pt Satisfied with anesthetic care
[2019-11-29] MEDS: TRAMADOL HCL 50 MG TABLET PO PRN (10:17)
[2019-11-29] MEDS: PANTOprazole 40 MG TAB PO SCH (10:18)
[2019-11-29] MEDS: predniSONE 5 MG TAB PO SCH (10:19)
[2019-11-29] MEDS: LOSARTAN POTASSIUM 50 MG TAB PO SCH (10:19)
[2019-11-29] MEDS: CEROVITE ADV FORMULA TAB PO SCH (10:20)
[2019-11-29] MEDS: ASPIRIN 81 MG ECTAB PO SCH (10:20)
[2019-11-29] MEDS: ZINC SULFATE 220 MG CAPSULE PO SCH (10:21)
[2019-11-29] MEDS: FOLIC ACID 1 MG TAB PO SCH (10:21)
[2019-11-29] MEDS: COLLAGENASE OINT 30 GM TUBE TOP SCH (10:22)
[2019-11-29] MEDS: ENOXAPARIN INJ 40 MG/0.4 ML SYR SQ SCH ×2 (10:22→21:03)
[2019-11-29] MEDS: SODIUM CHLORIDE 0.9% 1000ML 1,000 ML IV SCH ×2 (10:28→21:12)
[2019-11-29] MEDS: PRAVASTATIN SOD 20 MG TAB PO SCH (21:04)
[2019-11-29] MEDS: HYDROXYCHLOROQUINE SULFATE 200 MG TAB PO SCH (21:04)
[2019-11-30] MEDS ORDERED: Nursing to Pharmacy Communication SCH (00:45)
[2019-11-30] MEDS: CEFEPIME 2,000 MG in SYRINGE 7.5 ML IV SCH ×2 (05:28→17:10)
[2019-11-30] MEDS: LACTOBACILLUS ACIDOPHILUS (FLORANEX) TAB PO SCH ×3 (08:55→17:08)
[2019-11-30] MEDS: CEROVITE ADV FORMULA TAB PO SCH (08:55)
[2019-11-30] MEDS: FOLIC ACID 1 MG TAB PO SCH (08:55)
[2019-11-30] MEDS: ASPIRIN 81 MG ECTAB PO SCH (08:56)
[2019-11-30] MEDS: predniSONE 5 MG TAB PO SCH (08:56)
[2019-11-30] MEDS: PANTOprazole 40 MG TAB PO SCH (08:56)
[2019-11-30] MEDS: LOSARTAN POTASSIUM 50 MG TAB PO SCH (08:56)
[2019-11-30] MEDS: PSYLLIUM 58.6% POWDER PACKET PO SCH ×2 (08:57→20:26)
[2019-11-30] MEDS: ASCORBIC ACID 500 MG TAB PO SCH ×2 (08:57→20:26)
[2019-11-30] MEDS: ZINC SULFATE 220 MG CAPSULE PO SCH (08:58)
[2019-11-30] MEDS: FERROUS SULFATE 325 MG TAB PO SCH ×3 (08:58→17:08)
[2019-11-30] MEDS: ENOXAPARIN INJ 40 MG/0.4 ML SYR SQ SCH ×3 (08:58→22:10)
[2019-11-30] MEDS: SODIUM CHLORIDE 0.9% 1000ML 1,000 ML IV SCH ×2 (08:59→20:25)
--- NOTE | 2019-11-30 09:55 | Surgery Progress Note ---
Date of Service November 30, 2019 Assessment & Plan (1) Pressure ulcer of upper thigh: POD#1 debridement of right upper thigh wound Patient's VSS, she is afebrile Wound leaked some when she stood up this AM, it has since been reinforced with no active drainage Teresa-wound is non-erythematous, wound is currently packed with kerlex gauze Wound care has been consulted and they can change the dressing today. From our standpoint would hold off on using black sponge for wound vac dressing as pablo ent's greater saphenous vein or perforators are located in the wound. Okay to use white foam or hold off on wound vac for time being. May consider protective layer/barrier. Appreciate their recommendations If further debridement is necessary would defer to a tertiary center Consider Rheumatology consult as wounds may be related to her rheumatoid arthritis Admission and Anticipated Discharge Date Admission Date: November 25, 2019 Subjective Patient seen resting in bed. Said her dressing was leaking this AM in addition to her IV. Otherwise she offers no complaints. Denies pain surrounding the wound at rest. Physical Exam Physical Exam: awake/alert Skin: R medial thigh wound currently packed with Kerlex, covered with 4x4 and ABD pads. serosang. drainage noted, wound was reinforced this AM. No surrounding erythema noted. some ttp. Results & Data ([facility]) Vital Signs (Past 12 Hours) Vital Signs Temp Pulse Pulse Resp BP Pulse Ox 11/30/19 07:11 36.6 C 72 16 116/66 94 11/30/19 07:09 84 11/30/19 04:00 36.7 C 75 18 99/64 L 98 11/29/19 23:56 80 PG Care Time/CCT Total # of Minutes Spent Total Time Spent with Patient: Total time spent is greater than 50% in coordination of care (as documented) at patient's floor/unit and/or counseling patient: Coding Level of Care Code None Diagnoses Pressure ulcer of upper thigh L89.209
[2019-11-30] MEDS: COLLAGENASE OINT 30 GM TUBE TOP SCH (14:22)
--- NOTE | 2019-11-30 15:20 | Hospitalist Progress Note ---
Date of Service November 30, 2019 Assessment & Plan (1) Cellulitis of right thigh: Dona Villalpando is a 73 y/o female with past medical hx of RA on chronic steroids and PAD who was sent to the hospital directly from her wound care appointment for worsening chronic wounds and bilateral lower extremity cellulitis. Wound was cultured on 11/18/19 and patient was sent home with ciprofloxacin. Culture grew out pseudomonas resistant to Fluroquinolones and Aztreonam. Currently on IV Cefepime. Gen Surgery took patient to OR yesterday for debridement, procedure went well. Wound care following, CM working to arrange home health and supplemental support for twice daily IV antibiotic administration. - She was started on Zerbaxa 3g Q8H on admission to cover pseudomonas and prior cultures. - [facility] ID was consulted and recommend converting to Cefepime, 2g, IV q12 for 14 days (currently on Day 5 of 14 of IV abx) - WBC continues to be normal, patient afebrile - General Surgery took patient to OR today for debridement. Incentive spirometer ordered for post-op period. - surgery recommending rheumatology consult in the event this represents a cutaneous manifestation of RA. Unsure if Rheumatology comes to hospital. If not will arrange as outpatient. - Wound care following, appreciate recs - vascular surgery consulted, recommending outpatient TBI and venous reflex studies - risk factors for wounds include PAD and chronic steroid use for rheumatoid arthritis. (2) Failure of outpatient treatment: as above (3) Bacterial infection due to Pseudomonas: Wound culture grew Pseudomonas which was resistant to outpatient antibiotic Ciprofloxacin. - management as above (4) CKD (chronic kidney disease) stage 3, GFR 30-59 ml/min: - Cr 1.41, up from 1.18 on admission - continue IV at 90mls/hr - repeat BMP in am (5) Rheumatoid arthritis: - Continue home dose plaquenil and prednisone. - She notes following with Rheumatology at [place] who tried to wean her but with even a 1mg decrease, she didn't tolerate and had difficulty opening/closing left hand. (6) Peripheral arterial disease: - likely contributory to wound development - interventional cardiology (vascular) was consulted on admission as she was supposed to follow up after last discharge - recommending outpatient TBI and venous relux studies (7) HTN (hypertension): - continue Losartan 50mg qAM. (8) Chronic anemia: - Hgb at 8.5, iron level low - Continue folic acid and iron supplementation. (9) Hyperlipidemia: - continue pravastatin 20mg PO HS (10) DVT prophylaxis: Lovenox 40mg SQ BID Diet: heart healthy Dispo: floor Code: DNR/DNI. CM involved for discharge planning Admission and Anticipated Discharge Date Admission Date: November 25, 2019 Supervising Physician Co-Signing Physician Notes Attending attestation Pt seen and examined in concert with Dr. Alaniz. In agreement with the documented findings as noted in the resident documentation with any exceptions or additions as noted here. Reports continue drainage from the debrided thigh wound with well controlled pain. Working with CM for outpatient Abx On examination, S1/S2 nl RRR no MCG. CTAB. Abd NT/ND BS+ve. 2+ pitting edema to the knee somewhat improved. Wounds as noted with visible drainage from the right thigh wound, serosanguinous. Right thigh wound - likely pressure ulcer > Stg III - w/ pseudomonas - s/p debridement from surgery - Continue cefepime, will need IV at home to complete. PICC prior to d/c. Wound care recs appreciated, coordinate w/ CM for outpatient mgmt CKD III - continue IV hydration, BMP in AM then D/C IVF if improved/stable RA - chronic pred and plaquenil, follows w/ [facility] and has f/u outpatient PAD - outpatient studies as noted Else see resident documentation as noted. Subjective no acute events overnight. Cannot find a family member or friend to do IV antibiotic infusions. Willing to pay out of pocket for nursing Review of Systems Integumentary: + wounds Physical Exam Constitutional: WD/WN, vitals as above + obese and cooperative Eyes: PERRL, conjunctivae normal, anicteric sclerae ENMT: external ear and nose normal, oropharynx normal Neck: normal visual inspection and trachea midline Respiratory: normal respiratory effort, lungs clear to auscultation Cardiovascular: Rate/Rhythm: regular rate and regular rhythm Heart Sounds: normal S1, normal S2 and + murmur (systolic ejection murmur ) Extremities: + pedal edema (+2 pitting edema bilaterally) Gastrointestinal (Abdomen): normal bowel sounds, soft, nontender, no hepatosplenomegaly Skin: + wound (right inner thigh, weeping through bandage) and + erythema (bilateral lower legs) Psychiatric: A+Ox3, euthymic affect Results & Data Results & Data ([facility]) Vital Signs (Past 12 Hours) Vital Signs Temp Pulse Pulse Resp BP Pulse Ox 11/30/19 07:11 36.6 C 72 16 116/66 94 11/30/19 07:09 84 11/30/19 04:00 36.7 C 75 18 99/64 L 98 Resident Activity Tracking Resident Involvement: Resident Care Provided Care Provided: Adult [facility] (1) Rheumatoid arthritis Rheumatoid arthritis location: unspecified site Rheumatoid factor presence: unspecified presence Qualified Code(s): M06.9 - Rheumatoid arthritis, unspeci fied (2) Hyperlipidemia Hyperlipidemia type: mixed hyperlipidemia Qualified Code(s): E78.2 - Mixed hyperlipidemia (3) HTN (hypertension) Hypertension type: essential hypertension Qualified Code(s): I10 - Essential (primary) hypertension
[2019-11-30] MEDS: HYDROXYCHLOROQUINE SULFATE 200 MG TAB PO SCH (20:25)
[2019-11-30] MEDS: PRAVASTATIN SOD 20 MG TAB PO SCH (20:26)
[2019-11-30 22:51] LABS: Hematocrit (blood only) 21.6 % (37-47); Hemoglobin 6.5 g/dL (12.0-16.0)
[2019-11-30] MEDS ORDERED: SODIUM CHLORIDE 0.9% 250 ML IV PRN (23:36)
--- NOTE | 2019-12-01 01:15 | Communication Note ---
Date of Service: December 01, 2019 Patient had a large bleed earlier in the day, when i went to assess bleeding had stopped, lots of clotted blood in wound base. Patient had a hemoglobin of 6.5. Consented and transfusing two units now
[2019-12-01] MEDS: CEFEPIME 2,000 MG in SYRINGE 7.5 ML IV SCH ×2 (06:52→18:26)
[2019-12-01] MEDS: SODIUM CHLORIDE 0.9% 1000ML 1,000 ML IV SCH ×2 (06:57→17:10)
[2019-12-01 08:43] LABS: Basophils # (auto) 0.02 K/uL (0-0.2); Basophils % (auto) 0.2 %; Eosinophils # (auto) 1.28 K/uL (0-0.5); Eosinophils % (auto) 14.7 %; Hematocrit (blood only) 29.8 % (37-47); Hemoglobin 9.3 g/dL (12.0-16.0); Immature Granulocytes # (auto) 0.12 K/uL (0.00-0.02); Immature Granulocytes % (auto) 1.4 %; Lymphocytes # (auto) 1.57 K/uL (1.2-3.4); Lymphocytes % (auto) 18.1 %; Mean Corpuscular Hemoglobin 27.5 pg (25-34); Mean Corpuscular Hgb Conc 31.2 g/dL (32-36); Mean Corpuscular Volume 88.2 fL (80-100); Mean Platelet Volume 9.2 fL (7.4-10.4); Monocytes # (auto) 0.51 K/uL (0.11-0.59); Monocytes % (auto) 5.9 %; Neutrophils # (auto) 5.18 K/uL (1.4-6.5); Neutrophils % (auto) 59.7 %; Platelet Count 169 K/uL (130-400); RDW Coefficient of Variation 17.2 % (11.5-14.5); RDW Standard Deviation 54.5 fL (36.4-46.3); Red Blood Count 3.38 M/uL (4.2-5.4); White Blood Count 8.68 K/uL (4.8-10.8)
[2019-12-01 09:13] LABS: BUN Creatinine Ratio 26.2 (10-20); Calcium 7.8 mg/dl (8.5-10.1); Creatinine Clr Calc Pharmacy 47.9 ml/min; Est GFR (African American) 46.7; Est GFR (Non-African American) 40.3; Potassium 4.1 mmol/L (3.5-5.1)
[2019-12-01] MEDS: LACTOBACILLUS ACIDOPHILUS (FLORANEX) TAB PO SCH ×3 (09:20→17:09)
[2019-12-01] MEDS: FERROUS SULFATE 325 MG TAB PO SCH ×3 (09:21→17:09)
[2019-12-01] MEDS: ZINC SULFATE 220 MG CAPSULE PO SCH (09:21)
[2019-12-01] MEDS: ASCORBIC ACID 500 MG TAB PO SCH ×2 (09:21→20:36)
[2019-12-01] MEDS: CEROVITE ADV FORMULA TAB PO SCH (09:22)
[2019-12-01] MEDS: predniSONE 5 MG TAB PO SCH (09:22)
[2019-12-01] MEDS: PSYLLIUM 58.6% POWDER PACKET PO SCH ×2 (09:22→20:35)
[2019-12-01] MEDS: FOLIC ACID 1 MG TAB PO SCH (09:22)
[2019-12-01] MEDS: LOSARTAN POTASSIUM 50 MG TAB PO SCH (09:22)
[2019-12-01] MEDS: PANTOprazole 40 MG TAB PO SCH (09:23)
[2019-12-01] MEDS: COLLAGENASE OINT 30 GM TUBE TOP SCH (11:22)
[2019-12-01] MEDS: TRAMADOL HCL 50 MG TABLET PO PRN (11:24)
--- NOTE | 2019-12-01 14:16 | Surgery Progress Note ---
Date of Service December 01, 2019 Assessment & Plan (1) Pressure ulcer of upper thigh: 73-year-old female POD #2 debridement of pressure ulcer of right medial thigh. Bleeding noted overnight, appears hemostatic on photos this morning. If no further bleeding, agree with placement of wound VAC with layers of Adaptic to wound bed. Surgery will continue to follow peripherally, call with questions or concerns Admission and Anticipated Discharge Date Admission Date: November 25, 2019 Subjective 73-year-old female with RA POD #2 debridement of right medial thigh pressure ulcer. Noted to have some bleeding after returning from the bathroom yesterday afternoon/evening, hemoglobin and hematocrit were down and she was transfused 2 units overnight. Today she has no further bleeding according to dressing eval's and wound care images. She continues to appear depressed about her situation but does not want to go to a nursing facility. Physical Exam Constitutional: WD/WN, vitals as above Skin: no rashes, warm and dry + wound (Dressing in place clean dry and intact. Photos appear to have good healing tissue) Results & Data ([facility]) Vital Signs (Past 12 Hours) Vital Signs Temp Pulse Resp BP Pulse Ox 12/01/19 06:50 36.5 C 64 20 123/56 L 97 12/01/19 06:10 36.5 C 72 20 109/71 99 12/01/19 05:11 36.8 C 62 20 102/61 98 12/01/19 04:39 36.8 C 66 18 118/73 98 12/01/19 04:25 37.1 C 68 16 106/58 L 98 12/01/19 04:07 36.6 C 70 20 95/50 L 98 12/01/19 03:59 36.6 C 70 20 95/50 L 98 12/01/19 03:30 36.7 C 72 20 93/52 L 12/01/19 02:29 36.8 C 69 20 105/65 97 PG Care Time/CCT Total # of Minutes Spent Total Time Spent with Patient: Total time spent is greater than 50% in coordination of care (as documented) at patient's floor/unit and/or counseling patient: Coding Level of Care Code 01641 Inpt Consult Level 2 Diagnoses Pressure ulcer of upper thigh L89.209
--- NOTE | 2019-12-01 14:47 | Hospitalist Progress Note ---
Date of Service December 01, 2019 Assessment & Plan (1) Cellulitis of right thigh: Dona Villalpando is a 73 y/o female with past medical hx of RA on chronic steroids and PAD who was sent to the hospital directly from her wound care appointment for worsening right medial thigh wound and bilateral lower extremity cellulitis. Wound was cultured on 11/18/19 and patient was sent home with ciprofloxacin. Culture grew out pseudomonas resistant to Fluroquinolones and Aztreonam. Currently on IV Cefepime. Currently POD 2 of surgical debridement, procedure went well. Wound did bleed through dressing overnight, Hgb found to be 6.5. Patient has been transfused two units. Wound care following, CM working to arrange home health and supplemental support for twice daily IV antibiotic administration. - She was started on Zerbaxa 3g Q8H on admission to cover pseudomonas and prior cultures. - [facility] ID was consulted and recommend converting to Cefepime, 2g, IV q12 for 14 days (currently on Day 6 of 14 of IV abx) - WBC continues to be normal, patient afebrile - POD 2 of debridement by general surgery. Incentive spirometer ordered for post-op period. - wound bled overnight with drop in hemoglobin to 6.5. transfused two units. Hgb increased to 10.2 (appropriate rise). Repeat in am. Hold ASA and lovenox. - surgery recommending rheumatology consult in the event this represents a cutaneous manifestation of RA. will arrange as outpatient. - Wound care following, appreciate recs - vascular surgery consulted, recommending outpatient TBI and venous reflex studies - risk factors for wounds include PAD and chronic steroid use for rheumatoid arthritis. (2) Failure of outpatient treatment: as above (3) Bacterial infection due to Pseudomonas: Wound culture grew Pseudomonas which was resistant to outpatient antibiotic Ciprofloxacin. - management as above (4) CKD (chronic kidney disease) stage 3, GFR 30-59 ml/min: - Cr 1.41, up from 1.18 on admission - continue IV at 90mls/hr - repeat BMP in am (5) Rheumatoid arthritis: - Continue home dose plaquenil and prednisone. - She notes following with Rheumatology at [place] who tried to wean her but with even a 1mg decrease, she didn't tolerate and had difficulty opening/closing left hand. (6) Peripheral arterial disease: - likely contributory to wound development - interventional cardiology (vascular) was consulted on admission as she was supposed to follow up after last discharge - recommending outpatient TBI and venous relux studies (7) HTN (hypertension): - continue Losartan 50mg qAM. (8) Chronic anemia: - Hgb at 8.5, iron level low - Continue folic acid and iron supplementation. (9) Hyperlipidemia: - continue pravastatin 20mg PO HS (10) DVT prophylaxis: Diet: heart healthy Dispo: floor Code: DNR/DNI. CM involved for discharge planning Admission and Anticipated Discharge Date Admission Date: November 25, 2019 Supervising Physician Co-Signing Physician Notes Attending attestation Pt seen and examined in concert with Dr. Alaniz. In agreement with the documented findings as noted in the resident documentation with any exceptions or additions as noted here. Feeling more energetic following 2x PRBC transfusion overnight. Pain well controlled and resting comfortably without acute complaint. On examination, S1/S2 nl RRR no MCG. CTAB. Abd NT/ND BS+ve. 2+ pitting edema to the knee, wounds as noted. Right thigh wound - likely pressure ulcer > Stg III - w/ pseudomonas - s/p debridement from surgery - Continue cefepime, will need IV at home to complete. Wound care recs appreciated. Acute postoperative blood loss anemia - bleeding from right thigh wound staunched following oozing from debridement wound and transfusion of 2 units PRBC. Monitor CBC daily and with any new bleeding CKD III - continue IV hydration, trend BMP. Likely stop IVF tomorrow. RA - chronic pred and plaquenil, follows w/ [facility] - would recommend follow up with rheum outpatient for evaluation of cutaneous manifestation of rheum disease PAD - outpatient studies as noted Else see resident documentation as noted. Subjective Night team reported patients wound bled through dressing - hgb was checked and it was 6.5. She was transfused two units of blood. Feeling better now. Still cannot find any help for IV antibiotics. Her road grader operator called her and said he would try to reach out to people at her [employer] who could help do so. He will get back to her. Review of Systems Integumentary: + wounds Physical Exam Constitutional: WD/WN, vitals as above + obese and cooperative Eyes: PERRL, conjunctivae normal, anicteric sclerae ENMT: external ear and nose normal, oropharynx normal Neck: normal visual inspection and trachea midline Respiratory: normal respiratory effort, lungs clear to auscultation Cardiovascular: Rate/Rhythm: regular rate and regular rhythm Heart Sounds: normal S1, normal S2 and + murmur (systolic ejection murmur ) Extremities: + pedal edema (+2 pitting edema bilaterally) Gastrointestinal (Abdomen): normal bowel sounds, soft, nontender, no hepatosplenomegaly Skin: + wound (right inner thigh, bloody fluid weeping through bandage) and + erythema (bilateral lower legs; less warm today) Psychiatric: A+Ox3, euthymic affect Results & Data Results & Data ([facility]) Vital Signs (Past 12 Hours) Vital Signs Temp Pulse Resp BP Pulse Ox 12/01/19 06:50 36.5 C 64 20 123/56 L 97 12/01/19 06:10 36.5 C 72 20 109/71 99 12/01/19 05:11 36.8 C 62 20 102/61 98 12/01/19 04:39 36.8 C 66 18 118/73 98 12/01/19 04:25 37.1 C 68 16 106/58 L 98 12/01/19 04:07 36.6 C 70 20 95/50 L 98 12/01/19 03:59 36.6 C 70 20 95/50 L 98 12/01/19 03:30 36.7 C 72 20 93/52 L Resident Activity Tracking Resident Involvement: Resident Care Provided Care Provided: Adult Hospital Medicine (1) Rheumatoid arthritis Rheumatoid arthritis location: unspecified site Rheumatoid factor presence: unspecified presence Qualified Code(s): M06.9 - Rheumatoid arthritis, unspecified (2) Hyperlipidemia Hyperlipidemia type: mixed hyperlipidemia Qualified Code(s): E78.2 - Mixed hyperlipidemia (3) HTN (hypertension) Hypertension type: essential hypertension Qualified Code(s): I10 - Essential (primary) hypertension
[2019-12-01] MEDS: HYDROXYCHLOROQUINE SULFATE 200 MG TAB PO SCH (20:36)
[2019-12-01] MEDS: PRAVASTATIN SOD 20 MG TAB PO SCH (20:36)
[2019-12-02] MEDS: SODIUM CHLORIDE 0.9% 1000ML 1,000 ML IV SCH ×2 (04:13→18:00)
[2019-12-02] MEDS: CEFEPIME 2,000 MG in SYRINGE 7.5 ML IV SCH ×2 (06:01→18:07)
[2019-12-02 06:12] LABS: Basophils # (auto) 0.01 K/uL (0-0.2); Basophils % (auto) 0.1 %; Eosinophils # (auto) 1.32 K/uL (0-0.5); Eosinophils % (auto) 14.7 %; Hematocrit (blood only) 27.5 % (37-47); Hemoglobin 8.6 g/dL (12.0-16.0); Immature Granulocytes # (auto) 0.12 K/uL (0.00-0.02); Immature Granulocytes % (auto) 1.3 %; Lymphocytes # (auto) 1.58 K/uL (1.2-3.4); Lymphocytes % (auto) 17.6 %; Mean Corpuscular Hemoglobin 27.7 pg (25-34); Mean Corpuscular Hgb Conc 31.3 g/dL (32-36); Mean Corpuscular Volume 88.7 fL (80-100); Mean Platelet Volume 9.7 fL (7.4-10.4); Monocytes # (auto) 0.56 K/uL (0.11-0.59); Monocytes % (auto) 6.2 %; Neutrophils # (auto) 5.39 K/uL (1.4-6.5); Neutrophils % (auto) 60.1 %; Platelet Count 181 K/uL (130-400); RDW Coefficient of Variation 17.7 % (11.5-14.5); RDW Standard Deviation 56.9 fL (36.4-46.3); White Blood Count 8.98 K/uL (4.8-10.8)
[2019-12-02 06:51] LABS: BUN Creatinine Ratio 27.5 (10-20); Calcium 7.9 mg/dl (8.5-10.1); Creatinine Clr Calc Pharmacy 47.6 ml/min; Est GFR (African American) 46.3; Est GFR (Non-African American) 39.9; Potassium 4.3 mmol/L (3.5-5.1)
[2019-12-02] MEDS: ASCORBIC ACID 500 MG TAB PO SCH ×2 (09:09→20:15)
[2019-12-02] MEDS: LACTOBACILLUS ACIDOPHILUS (FLORANEX) TAB PO SCH ×3 (09:10→18:03)
[2019-12-02] MEDS: FERROUS SULFATE 325 MG TAB PO SCH ×3 (09:10→18:04)
[2019-12-02] MEDS: CEROVITE ADV FORMULA TAB PO SCH (09:10)
[2019-12-02] MEDS: PANTOprazole 40 MG TAB PO SCH (09:10)
[2019-12-02] MEDS: FOLIC ACID 1 MG TAB PO SCH (09:10)
[2019-12-02] MEDS: predniSONE 5 MG TAB PO SCH (09:11)
[2019-12-02] MEDS: ZINC SULFATE 220 MG CAPSULE PO SCH (09:11)
[2019-12-02] MEDS: LOSARTAN POTASSIUM 50 MG TAB PO SCH (09:11)
[2019-12-02] MEDS: PSYLLIUM 58.6% POWDER PACKET PO SCH ×2 (09:11→20:13)
[2019-12-02] MEDS: COLLAGENASE OINT 30 GM TUBE TOP SCH (09:12)
[2019-12-02] MEDS: TRAMADOL HCL 50 MG TABLET PO PRN (14:28)
--- NOTE | 2019-12-02 14:47 | Hospitalist Progress Note ---
Date of Service December 02, 2019 Assessment & Plan (1) Cellulitis of right thigh: Dona Villalpando is a 73 y/o female with past medical hx of RA on chronic steroids and PAD who was sent to the hospital directly from her wound care appointment for worsening right medial thigh wound and bilateral lower extremity cellulitis. Wound was cultured on 11/18/19 and patient was sent home with ciprofloxacin. Culture grew out pseudomonas resistant to Fluroquinolones and Aztreonam. Currently on day 7 of IV Cefepime. She is POD 3 of surgical debridement, procedure went well. Wound did bleed through dressing on night of procedure, Hgb found to be 6.5. Patient has been transfused two units of pRBCs. Hgb has been stable since transfusion. Wound care following, CM awaiting insurance authorization for acute rehab placement. - She was started on Zerbaxa 3g Q8H on admission to cover pseudomonas and prior cultures. - [email or web address] ID was consulted and recommend converting to Cefepime, 2g, IV q12 for 14 days (currently on Day 7 of 14 of IV abx). Patient has US guided peripheral Iv - WBC continues to be normal, patient afebrile - POD 3 of debridement by general surgery. Incentive spirometer ordered for post-op period. - wound bled after surgery with drop in hemoglobin to 6.5. transfused two units. Hgb increased to 10.2 (appropriate rise). Hgb at 8.6 this morning. Repeat level in am. Transfuse < 7. Hold ASA and Lovenox. - surgery recommending rheumatology consult in the event this represents a c utaneous manifestation of RA. will arrange as outpatient. - Wound care following, appreciate recs - vascular surgery consulted, recommending outpatient TBI and venous reflex studies - risk factors for wounds include PAD and chronic steroid use for rheumatoid arthritis (2) Failure of outpatient treatment: as above (3) Bacterial infection due to Pseudomonas: Wound culture grew Pseudomonas which was resistant to outpatient antibiotic Ciprofloxacin. - management as above (4) CKD (chronic kidney disease) stage 3, GFR 30-59 ml/min: - Cr 1.32, up from 1.18 on admission - continue IV at 90mls/hr - repeat BMP in am (5) Rheumatoid arthritis: - Continue home dose plaquenil and prednisone. - She notes following with Rheumatology at [place] who tried to wean her but with even a 1mg decrease, she didn't tolerate and had difficulty opening/closing left hand. (6) Peripheral arterial disease: - likely contributory to wound development - interventional cardiology (vascular) was consulted on admission as she was supposed to follow up after last discharge - recommending outpatient TBI and venous relux studies (7) HTN (hypertension): - continue Losartan 50mg qAM (8) Chronic anemia: - Hgb at 8.5, iron level low - Continue folic acid and iron supplementation. (9) Hyperlipidemia: - continue pravastatin 20mg PO HS (10) DVT prophylaxis: Diet: heart healthy Dispo: floor Code: DNR/DNI. CM involved for discharge planning Admission and Anticipated Discharge Date Admission Date: November 25, 2019 Supervising Physician Co-Signing Physician Notes I saw the patient concurrent with the resident physician and confirmed wood portions of the history physical examination. I agree with the impression and plan as detailed above. Hemoglobin today is 8.6, down slightly from 9.3 yesterday. Sodium 148 BUN 36, creatinine 1.32 Right thigh wound with cellulitis Wound care Continue cefepime Monitor hemoglobin for stability Subjective Feeling discouraged. Cannot find anyone who can administer IV antibiotics for her. Agreeable to going to a facility Review of Systems Integumentary: + wounds Physical Exam Constitutional: WD/WN, vitals as above + obese and cooperative Eyes: PERRL, conjunctivae normal, anicteric sclerae ENMT: external ear and nose normal, oropharynx normal Neck: normal visual inspection and trachea midline Respiratory: normal respiratory effort, lungs clear to auscultation Cardiovascular: Rate/Rhythm: regular rate and regular rhythm Heart Sounds: normal S1, normal S2 and + murmur (systolic ejection murmur ) Extremities: + pedal edema (+2 pitting edema bilaterally) Gastrointestinal (Abdomen): normal bowel sounds, soft, nontender, no hepatosplenomegaly Skin: + wound (right inner thigh, bloody fluid weeping through bandage) and + erythema (bilateral lower legs; less warm today) Psychiatric: A+Ox3, euthymic affect Results & Data Results & Data ([place]) Vital Signs (Past 12 Hours) Vital Signs Temp Pulse Resp BP Pulse Ox 12/02/19 11:20 36.7 C 68 16 134/74 99 12/02/19 10:02 76 96 08/14/20 07:47 36.8 C 48 L 16 123/62 95 Resident Activity Tracking Resident Involvement: Resident Care Provided Care Provided: Adult Hospital Medicine (1) Rheumatoid arthritis Rheumatoid arthritis location: unspecified site Rheumatoid factor presence: unspecified presence Qualified Code(s): M06.9 - Rheumatoid arthritis, unspecified (2) Hyperlipidemia Hyperlipidemia type: mixed hyperlipidemia Qualified Code(s): E78.2 - Mixed hyperlipidemia (3) HTN (hypertension) Hypertension type: essential hypertension Qualified Code(s): I10 - Essential (primary) hypertension
[2019-12-02] MEDS: HYDROXYCHLOROQUINE SULFATE 200 MG TAB PO SCH (20:15)
[2019-12-02] MEDS: PRAVASTATIN SOD 20 MG TAB PO SCH (20:15)
[2019-12-03] MEDS: SODIUM CHLORIDE 0.9% 1000ML 1,000 ML IV SCH ×2 (03:11→15:10)
[2019-12-03] MEDS: CEFEPIME 2,000 MG in SYRINGE 7.5 ML IV SCH ×2 (06:16→17:55)
[2019-12-03 06:34] LABS: Basophils # (auto) 0.02 K/uL (0-0.2); Basophils % (auto) 0.2 %; Eosinophils % (auto) 15.3 %; Hematocrit (blood only) 29.2 % (37-47); Hemoglobin 9.2 g/dL (12.0-16.0); Immature Granulocytes # (auto) 0.13 K/uL (0.00-0.02); Immature Granulocytes % (auto) 1.4 %; Lymphocytes # (auto) 1.61 K/uL (1.2-3.4); Lymphocytes % (auto) 17.6 %; Mean Corpuscular Hemoglobin 28.5 pg (25-34); Mean Corpuscular Hgb Conc 31.5 g/dL (32-36); Mean Corpuscular Volume 90.4 fL (80-100); Mean Platelet Volume 9.8 fL (7.4-10.4); Monocytes # (auto) 0.48 K/uL (0.11-0.59); Monocytes % (auto) 5.2 %; Neutrophils # (auto) 5.52 K/uL (1.4-6.5); Neutrophils % (auto) 60.3 %; Platelet Count 203 K/uL (130-400); RDW Coefficient of Variation 17.3 % (11.5-14.5); RDW Standard Deviation 57.1 fL (36.4-46.3); Red Blood Count 3.23 M/uL (4.2-5.4); White Blood Count 9.16 K/uL (4.8-10.8)
[2019-12-03 07:00] LABS: BUN Creatinine Ratio 27.4 (10-20); Calcium 8.1 mg/dl (8.5-10.1); Creatinine Clr Calc Pharmacy 49.5 ml/min; Est GFR (African American) 48.5; Est GFR (Non-African American) 41.8; Potassium 4.1 mmol/L (3.5-5.1)
[2019-12-03] MEDS: ASCORBIC ACID 500 MG TAB PO SCH ×2 (08:59→21:18)
[2019-12-03] MEDS: FERROUS SULFATE 325 MG TAB PO SCH ×3 (08:59→17:49)
[2019-12-03] MEDS: LACTOBACILLUS ACIDOPHILUS (FLORANEX) TAB PO SCH ×3 (09:00→17:48)
[2019-12-03] MEDS: ZINC SULFATE 220 MG CAPSULE PO SCH (09:00)
[2019-12-03] MEDS: FOLIC ACID 1 MG TAB PO SCH (09:00)
[2019-12-03] MEDS: PANTOprazole 40 MG TAB PO SCH (09:00)
[2019-12-03] MEDS: CEROVITE ADV FORMULA TAB PO SCH (09:00)
[2019-12-03] MEDS: PSYLLIUM 58.6% POWDER PACKET PO SCH ×2 (09:01→21:17)
[2019-12-03] MEDS: predniSONE 5 MG TAB PO SCH (09:01)
[2019-12-03] MEDS: LOSARTAN POTASSIUM 50 MG TAB PO SCH (09:02)
[2019-12-03] MEDS: COLLAGENASE OINT 30 GM TUBE TOP SCH (09:03)
[2019-12-03] MEDS: TRAMADOL HCL 50 MG TABLET PO PRN (09:08)
--- NOTE | 2019-12-03 15:06 | Hospitalist Progress Note ---
Date of Service December 03, 2019 Assessment & Plan (1) Pressure ulcer of upper thigh: Dona Villalpando is a 73 y/o female with past medical hx of RA on chronic steroids and PAD who was sent to the hospital directly from her wound care appointment for worsening right medial thigh wound and bilateral lower extremity cellulitis. Wound was cultured on 11/18/19 and patient was sent home with ciprofloxacin. Culture grew out pseudomonas resistant to Fluroquinolones and Aztreonam. Currently on day 7 of IV Cefepime. She is POD 3 of surgical debridement, procedure went well. Wound did bleed through dressing on night of procedure, Hgb found to be 6.5. Patient has been transfused two units of pRBCs. Hgb has been stable since transfusion. Wound care following, CM awaiting insurance authorization for acute rehab placement. Cellulitis of right thigh - She was started on Zerbaxa 3g Q8H on admission to cover pseudomonas and prior cultures. - [facility] ID was consulted and recommend converting to Cefepime, 2g, IV q12 for 14 days (currently on Day 8 of 14 of IV abx). Patient has US guided peripheral IV - WBC continues to be normal, patient afebrile - POD 3 of debridement by general surgery. Incentive spirometer ordered for post-op period. - wound bled after surgery with drop in hemoglobin to 6.5. transfused two units. Hgb increased to 10.2 (appropriate rise). Hgb at 9.2 this morning. Repeat level in am. Transfuse < 7. Hold ASA and Lovenox. - surgery recommending rheumatology consult in the event this represents a cutaneous manifestation of RA. Will arrange as outpatient. - Wound care following, appreciate recs - vascular surgery consulted, recommending outpatient TBI and venous reflex studies - risk factors for wounds include PAD and chronic steroid use for rheumatoid arthritis Bacterial infection due to Pseudomonas: -Wound culture grew Pseudomonas which was resistant to outpatient antibiotic Ciprofloxacin. - management as above CKD (chronic kidney disease) stage 3, GFR 30-59 ml/min: - Cr 1.27 - dc'd IV at 90mls/hr - repeat BMP in am Rheumatoid arthritis: - Continue home dose plaquenil and prednisone. - She notes following with Rheumatology at [place] who tried to wean her but with even a 1mg decrease, she didn't tolerate and had difficulty opening/closing left hand. Peripheral arterial disease: - likely contributory to wound development - interventional cardiology (vascular) was consulted on admission as she was supposed to follow up after last discharge - recommending outpatient TBI and venous reflux studies HTN - continue Losartan 50mg qAM Chronic anemia: - Hgb at 9.2, iron level low - Continue folic acid and iron supplementation. Hyperlipidemia: - continue pravastatin 20mg PO HS Diet: heart healthy DVT prophylaxis: Lovenox SQ held Code: DNR/DNI. Dispo: [facility]. Appreciate CM assistance . Awaiting [facility] referral, however next option would be [facility] on Thursday Admission and Anticipated Discharge Date Admission Date: November 25, 2019 Supervising Physician Co-Signing Physician Notes I saw the patient concurrent with the resident physician and confirmed wood portions of the history physical examination. I agree with the impression and plan as detailed above. Hemoglobin 9.2; this is up from 8.6 yesterday. Sodium 148 Creatinine 1.27 Right thigh wound with cellulitis Wound care Continue cefepime Monitor hemoglobin for stability Case management looking into placement possibilities Subjective Patient found in bed this morning with no acute overnight events. Still awaiting to see where patient can be placed, [facility] versus [facility]. Patient tolerating p.o. intake. Bandages changed by wound care this a.m. patient with no other acute concerns or complaints. Review of Systems Review of Systems: All systems reviewed & are unremarkable except as noted in HPI & below Physical Exam Constitutional: + obese Eyes: PERRL, conjunctivae normal, anicteric sclerae ENMT: external ear and nose normal, oropharynx normal Respiratory: normal respiratory effort, lungs clear to auscultation Cardiovascular: Rate/Rhythm: regular rate and regular rhythm Heart Sounds: + murmur (Systolic) Gastrointestinal (Abdomen): normal bowel sounds, soft, nontender, no hepatosplenomegaly Skin: Right inner thigh wound bandaged Cellulitic changes bilaterally lower extremity Lymphatic: + lymphedema (2+ LE bilaterally) Results & Data Results & Data ([facility]) Vital Signs (Past 12 Hours) Vital Signs Temp Pulse Resp BP Pulse Ox 12/03/19 07:06 36.6 C 62 15 120/72 98 Laboratory Results Laboratory Results - last 24 hr 12/03/19 12/03/19 05:57 05:57 WBC 9.16 RBC 3.23 L Hgb 9.2 L Hct 29.2 L MCV 90.4 MCH 28.5 MCHC 31.5 L RDW Std Deviation 57.1 H RDW Coeff of Sadaia 17.3 H Plt Count 203 MPV 9.8 Immature Gran % (Auto) 1.4 Neut % (Auto) 60.3 Lymph % (Auto) 17.6 [place] % (Auto) 5.2 Eos % (Auto) 15.3 Baso % (Auto) 0.2 Neut # (Auto) 5.52 Lymph # (Auto) 1.61 [place] # (Auto) 0.48 Eos # (Auto) 1.40 H Baso # (Auto) 0.02 Immature Gran # (Auto) 0.13 H Sodium 148 H Potassium 4.1 Chloride 125 H Carbon Dioxide 18 L Anion Gap 5.0 BUN 35 H Creatinine 1.27 H Est Cr Clr Drug Dosing 49.5 Est GFR ( Amer) 48.5 Est GFR (Non-Af Amer) 41.8 BUN/Creatinine Ratio 27.4 H Glucose 81 Calcium 8.1 L Medications Administered Current Inpatient Medications Acetaminophen (Tylenol) 650 mg PO Q4H PRN PRN Reason: Pain or Fever Stop: 12/25/19 18:23 Ascorbic Acid (Vitamin C) 500 mg PO BID [facility] Stop: 12/25/19 20:59 Last Admin: 12/03/19 08:59 Dose: 500 mg Documented by: Aspirin (Aspirin 81 Mg Ectab) 81 mg PO DAILY [facility] Stop: 12/26/19 08:59 Last Admin: 11/30/19 08:56 Dose: 81 mg Documented by: Collagenase (Santyl) 1 appln TOP DAILY [facility] Stop: 12/26/19 08:59 Last Admin: 12/03/19 09:03 Dose: Not Given Documented by: Enoxaparin Sodium (Enoxaparin Inj 40 Mg/0.4 Ml Syr) 40 mg SQ BID [facility] Stop: 12/25/19 22:44 Last Admin: 11/30/19 22:10 Dose: Not Given Documented by: Ferrous Sulfate (Feosol) 325 mg PO TIDM [facility] Stop: 12/26/19 07:59 Last Admin: 12/03/19 13:00 Dose: 325 mg Documented by: Folic Acid (Folvite) 1 mg PO QAM [facility] Stop: 12/26/19 08:59 Last Admin: 12/03/19 09:00 Dose: 1 mg Documented by: Hydroxychloroquine Sulfate (Plaquenil) 400 mg PO HS [facility] Stop: 12/25/19 20:59 Last Admin: 12/02/19 20:15 Dose: 400 mg Documented by: Cefepime HCl 2,000 mg/ Syringe 20 mls @ 5.5 mls/min IV Q12H [facility]; Protocol Stop: 12/06/19 05:59 Last Admin: 12/03/19 06:16 Dose: 5.5 mls/min Documented by: Lactobacillus Acidophilus (Floranex) 4 tab PO TIDM [facility] Stop: 12/26/19 07:59 Last Admin: 12/03/19 13:00 Dose: 4 tab Documented by: Losartan Potassium (Cozaar) [facility] Stop: 12/25/19 19:29 Last Admin: 12/03/19 09:02 Dose: 50 mg Documented by: Miconazole Nitrate (Desenex) 1 appln EXT PRN PRN PRN Reason: Affected Skin Folds Stop: 12/25/19 18:25 Last Admin: 11/26/19 15:01 Dose: 1 appln Documented by: Multivitamins/Minerals (Multivitamin W/ Minerals Tab) 1 [facility] Stop: 12/26/19 08:59 Last Admin: 12/03/19 09:00 Dose: 1 tab Documented by: Pantoprazole Sodium (Protonix) 40 [facility] Stop: 12/26/19 08:59 Last Admin: 12/03/19 09:00 Dose: 40 mg Documented by: Pravastatin Sodium (Pravachol) 20 mg PO QPM [facility] Stop: 12/25/19 20:59 Last Admin: 12/02/19 20:15 Dose: 20 mg Documented by: Prednisone (Prednisone) 7.5 mg [facility] Stop: 12/26/19 08:59 Last Admin: 12/03/19 09:01 Dose: 7.5 mg Documented by: Psyllium Hydrophilic Mucilloid (Metamucil) 1 pkt PO BID [facility] Stop: 12/26/19 08:59 Last Admin: 12/03/19 09:01 Dose: Not Given Documented by: Tramadol HCl (Tramadol Hcl 50 Mg Tablet) 50 mg PO Q6H PRN PRN Reason: Pain Stop: 12/25/19 18:23 Last Admin: 12/03/19 09:08 Dose: 50 mg Documented by: Zinc Sulfate (Zinc Sulfate) 220 mg PO QAM [facility] Stop: 12/26/19 08:59 Last Admin: 12/03/19 09:00 Dose: 220 mg Documented by: Resident Activity Tracking Resident Involvement: Resident Care Provided Care Provided: Adult Hospital Medicine
[2019-12-03] MEDS: HYDROXYCHLOROQUINE SULFATE 200 MG TAB PO SCH (21:17)
[2019-12-03] MEDS: PRAVASTATIN SOD 20 MG TAB PO SCH (21:18)
[2019-12-04] MEDS: CEFEPIME 2,000 MG in SYRINGE 7.5 ML IV SCH ×2 (05:53→19:00)
[2019-12-04 06:32] LABS: Basophils # (auto) 0.01 K/uL (0-0.2); Basophils % (auto) 0.1 %; Eosinophils # (auto) 1.36 K/uL (0-0.5); Eosinophils % (auto) 15.4 %; Hematocrit (blood only) 28.9 % (37-47); Hemoglobin 9.1 g/dL (12.0-16.0); Immature Granulocytes # (auto) 0.12 K/uL (0.00-0.02); Immature Granulocytes % (auto) 1.4 %; Lymphocytes # (auto) 1.54 K/uL (1.2-3.4); Lymphocytes % (auto) 17.4 %; Mean Corpuscular Hemoglobin 27.9 pg (25-34); Mean Corpuscular Hgb Conc 31.5 g/dL (32-36); Mean Corpuscular Volume 88.7 fL (80-100); Mean Platelet Volume 9.9 fL (7.4-10.4); Monocytes % (auto) 6.8 %; Neutrophils % (auto) 58.9 %; Platelet Count 189 K/uL (130-400); RDW Coefficient of Variation 17.2 % (11.5-14.5); RDW Standard Deviation 55.3 fL (36.4-46.3); Red Blood Count 3.26 M/uL (4.2-5.4); White Blood Count 8.83 K/uL (4.8-10.8)
[2019-12-04 06:55] LABS: BUN Creatinine Ratio 30.6 (10-20); Creatinine Clr Calc Pharmacy 53.7 ml/min; Est GFR (African American) 53.5; Est GFR (Non-African American) 46.2; Potassium 4.3 mmol/L (3.5-5.1)
[2019-12-04] MEDS: LOSARTAN POTASSIUM 50 MG TAB PO SCH (08:38)
[2019-12-04] MEDS: ASCORBIC ACID 500 MG TAB PO SCH ×2 (08:38→21:29)
[2019-12-04] MEDS: PANTOprazole 40 MG TAB PO SCH (08:39)
[2019-12-04] MEDS: ZINC SULFATE 220 MG CAPSULE PO SCH (08:39)
[2019-12-04] MEDS: PSYLLIUM 58.6% POWDER PACKET PO SCH ×2 (08:39→21:28)
[2019-12-04] MEDS: COLLAGENASE OINT 30 GM TUBE TOP SCH (08:39)
[2019-12-04] MEDS: predniSONE 5 MG TAB PO SCH (08:40)
[2019-12-04] MEDS: LACTOBACILLUS ACIDOPHILUS (FLORANEX) TAB PO SCH ×3 (08:41→18:00)
[2019-12-04] MEDS: CEROVITE ADV FORMULA TAB PO SCH (08:41)
[2019-12-04] MEDS: FERROUS SULFATE 325 MG TAB PO SCH ×3 (08:41→18:00)
[2019-12-04] MEDS: FOLIC ACID 1 MG TAB PO SCH (08:42)
--- NOTE | 2019-12-04 17:49 | Hospitalist Progress Note ---
Date of Service December 04, 2019 Assessment & Plan (1) Pressure ulcer of upper thigh: Dona Villalpando is a 73 y/o female with past medical hx of RA on chronic steroids and PAD who was sent to the hospital directly from her wound care appointment for worsening right medial thigh wound and bilateral lower extremity cellulitis. Wound was cultured on 11/18/19 and patient was sent home with ciprofloxacin. Culture grew out pseudomonas resistant to Fluroquinolones and Aztreonam. Currently on day 9 of IV Cefepime. She is POD 4 of surgical debridement, procedure went well. Wound did bleed through dressing on night of procedure, Hgb found to be 6.5. Patient has been transfused two units of pRBCs. Hgb has been stable since transfusion. Wound care following, CM awaiting insurance authorization for acute rehab placement. Cellulitis of right thigh - She was started on Zerbaxa 3g Q8H on admission to cover pseudomonas and prior cultures - [facility] ID was consulted and recommend converting to Cefepime, 2g, IV q12 for 14 days (currently on Day 9 of 14 of IV abx). Patient has US guided peripheral IV - WBC continues to be normal, patient afebrile - POD 4 of debridement by general surgery. Incentive spirometer ordered for post-op period. - wound bled after surgery with drop in hemoglobin to 6.5. transfused two units. Hgb increased to 10.2 (appropriate rise). Hgb at 9.1 this morning. Repeat level in am. Transfuse < 7. Hold ASA and Lovenox. - surgery recommending rheumatology consult in the event this represents a cutaneous manifestation of RA. Will arrange as outpatient. - Wound care following, appreciate recs - vascular surgery consulted, recommending outpatient TBI and venous reflex studies - risk factors for wounds include PAD and chronic steroid use for rheumatoid arthritis Bacterial infection due to Pseudomonas: -Wound culture grew Pseudomonas which was resistant to outpatient antibiotic Ciprofloxacin. - management as above CKD (chronic kidney disease) stage 3, GFR 30-59 ml/min: - Cr 1.27 - dc'd IV at 90mls/hr - repeat BMP in am Rheumatoid arthritis: - Continue home dose plaquenil and prednisone. - She notes following with Rheumatology at [place] who tried to wean her but with even a 1mg decrease, she didn't tolerate and had difficulty opening/closing left hand. Peripheral arterial disease: - likely contributory to wound development - interventional cardiology (vascular) was consulted on admission as she was supposed to follow up after last discharge - recommending outpatient TBI and venous reflux studies HTN - continue Losartan 50mg qAM Chronic anemia: - Hgb at 9.1, iron level low - Continue folic acid and iron supplementation. Hyperlipidemia: - continue pravastatin 20mg PO HS Diet: heart healthy DVT prophylaxis: Lovenox SQ held Code: DNR/DNI. Dispo: MedSurg. Appreciate CM assistance . Awaiting [facility] versus more likely [facility] tomorrow. Admission and Anticipated Discharge Date Admission Date: November 25, 2019 Supervising Physician Co-Signing Physician Notes I also saw the patient concurrent with the resident physician and confirmed wood portions of the history physical examination. I agree with the impression and plan as noted in the resident documentation. Hemoglobin stable at 9.1.. Sodium 147. Creatinine 1.17 Right thigh wound with cellulitis Wound care Continue cefepime Monitor hemoglobin for stability Case management looking into placement possibilities Subjective Patient found in bed this morning with no acute overnight events. Still awaiting to see where patient can be placed, [facility] versus [facility]. Patient tolerating p.o. intake. Bandages changed by wound care this a.m. patient with no other acute concerns or complaints. Review of Systems Review of Systems: All systems reviewed & are unremarkable except as noted in HPI & below Physical Exam Constitutional: + obese Eyes: PERRL, conjunctivae normal, anicteric sclerae ENMT: external ear and nose normal, oropharynx normal Respiratory: normal respiratory effort, lungs clear to auscultation Cardiovascular: Rate/Rhythm: regular rate and regular rhythm Heart Sounds: + murmur (Systolic) Gastrointestinal (Abdomen): normal bowel sounds, soft, nontender, no hepatosplenomegaly Skin: Right inner thigh wound bandaged Cellulitic changes bilaterally lower extremity Psychiatric: A+Ox3, euthymic affect Lymphatic: + lymphedema (2+ LE bilaterally) Results & Data Results & Data ([facility]) Vital Signs (Past 12 Hours) Vital Signs Temp Pulse Resp BP Pulse Ox 12/04/19 15:55 37.0 C 71 17 130/70 97 12/04/19 07:06 36.7 C 66 16 119/67 99 Laboratory Results Laboratory Results - last 24 hr 12/04/19 12/04/19 05:25 05:25 WBC 8.83 RBC 3.26 L Hgb 9.1 L Hct 28.9 L MCV 88.7 MCH 27.9 MCHC 31.5 L RDW Std Deviation 55.3 H RDW Coeff of Saadia 17.2 H Plt Count 189 MPV 9.9 Immature Gran % (Auto) 1.4 Neut % (Auto) 58.9 Lymph % (Auto) 17.4 [place] % (Auto) 6.8 Eos % (Auto) 15.4 Baso % (Auto) 0.1 Neut # (Auto) 5.20 Lymph # (Auto) 1.54 [place] # (Auto) 0.60 H Eos # (Auto) 1.36 H Baso # (Auto) 0.01 Immature Gran # (Auto) 0.12 H Sodium 147 H Potassium 4.3 Chloride 124 H Carbon Dioxide 17 L Anion Gap 6.0 BUN 36 H Creatinine 1.17 Est Cr Clr Drug Dosing 53.7 Est GFR ( Amer) 53.5 Est GFR (Non-Af Amer) 46.2 BUN/Creatinine Ratio 30.6 H Glucose 76 Calcium 8.0 L Medications Administered Current Inpatient Medications Acetaminophen (Tylenol) 650 mg PO Q4H PRN PRN Reason: Pain or Fever Stop: 12/25/19 18:23 Ascorbic Acid (Vitamin C) 500 mg PO BID [facility] Stop: 12/25/19 20:59 Last Admin: 12/04/19 08:38 Dose: 500 mg Documented by: Aspirin (Aspirin 81 Mg Ectab) 81 mg PO DAILY [facility] Stop: 12/26/19 08:59 Last Admin: 11/30/19 08:56 Dose: 81 mg Documented by: Collagenase (Santyl) 1 appln TOP DAILY [facility] Stop: 12/26/19 08:59 Last Admin: 12/04/19 08:39 Dose: Not Given Documented by: Enoxaparin Sodium (Enoxaparin Inj 40 Mg/0.4 Ml Syr) 40 mg SQ BID [facility] Stop: 12/25/19 22:44 Last Admin: 11/30/19 22:10 Dose: Not Given Documented by: Ferrous Sulfate (Feosol) 325 mg PO TIDM [facility] Stop: 12/26/19 07:59 Last Admin: 12/04/19 12:57 Dose: 325 mg Documented by: Folic Acid (Folvite) 1 mg PO QAM [facility] Stop: 12/26/19 08:59 Last Admin: 12/04/19 08:42 Dose: 1 mg Documented by: Hydroxychloroquine Sulfate (Plaquenil) 400 mg PO HS [facility] Stop: 12/25/19 20:59 Last Admin: 12/03/19 21:17 Dose: 400 mg Documented by: Cefepime HCl 2,000 mg/ Syringe 20 mls @ 5.5 mls/min IV Q12H [facility]; Protocol Stop: 12/06/19 05:59 Last Admin: 12/04/19 05:53 Dose: 5.5 mls/min Documented by: Lactobacillus Acidophilus (Floranex) 4 tab PO TIDM [facility] Stop: 12/26/19 07:59 Last Admin: 12/04/19 12:58 Dose: 4 tab Documented by: Losartan Potassium (Cozaar) 50 mg PO QAM [facility] Stop: 12/25/19 19:29 Last Admin: 12/04/19 08:38 Dose: 50 mg Documented by: Miconazole Nitrate (Desenex) 1 appln EXT PRN PRN PRN Reason: Affected Skin Folds Stop: 12/25/19 18:25 Last Admin: 11/26/19 15:01 Dose: 1 appln Documented by: Multivitamins/Minerals (Multivitamin W/ Minerals Tab) 1 tab PO QAM [facility] Stop: 12/26/19 08:59 Last Admin: 12/04/19 08:41 Dose: 1 tab Documented by: Pantoprazole Sodium (Protonix) [facility] [place] Stop: 12/26/19 08:59 Last Admin: 12/04/19 08:39 Dose: 40 mg Documented by: Pravastatin Sodium (Pravachol) 20 mg PO QPM [facility] Stop: 12/25/19 20:59 Last Admin: 12/03/19 21:18 Dose: 20 mg Documented by: Prednisone (Prednisone) 7.5 mg PO QAM [facility] Stop: 12/26/19 08:59 Last Admin: 12/04/19 08:40 Dose: 7.5 mg Documented by: Psyllium Hydrophilic Mucilloid (Metamucil) 1 pkt PO BID [facility] Stop: 12/26/19 08:59 Last Admin: 12/04/19 08:39 Dose: Not Given Documented by: Tramadol HCl (Tramadol Hcl 50 Mg Tablet) 50 mg PO Q6H PRN PRN Reason: Pain Stop: 12/25/19 18:23 Last Admin: 12/03/19 09:08 Dose: 50 mg Documented by: Zinc Sulfate (Zinc Sulfate) 220 [facility] [place] Stop: 12/26/19 08:59 Last Admin: 12/04/19 08:39 Dose: 220 mg Documented by: Resident Activity Tracking Resident Involvement: Resident Care Provided Care Provided: Adult Hospital Medicine
[2019-12-04] MEDS: HYDROXYCHLOROQUINE SULFATE 200 MG TAB PO SCH (21:28)
[2019-12-04] MEDS: PRAVASTATIN SOD 20 MG TAB PO SCH (21:29)
[2019-12-04] MEDS: MICONAZOLE NITRATE POWDER 43 GM EXT PRN (21:29)
[2019-12-05] MEDS: TRAMADOL HCL 50 MG TABLET PO PRN ×2 (04:49→15:51)
[2019-12-05] MEDS: CEFEPIME 2,000 MG in SYRINGE 7.5 ML IV SCH ×2 (05:42→18:51)
[2019-12-05 06:22] LABS: Basophils # (auto) 0.01 K/uL (0-0.2); Basophils % (auto) 0.1 %; Eosinophils # (auto) 1.36 K/uL (0-0.5); Hematocrit (blood only) 27.8 % (37-47); Hemoglobin 8.7 g/dL (12.0-16.0); Immature Granulocytes % (auto) 1.3 %; Lymphocytes # (auto) 1.26 K/uL (1.2-3.4); Lymphocytes % (auto) 15.8 %; Mean Corpuscular Hemoglobin 27.6 pg (25-34); Mean Corpuscular Hgb Conc 31.3 g/dL (32-36); Mean Corpuscular Volume 88.3 fL (80-100); Mean Platelet Volume 9.8 fL (7.4-10.4); Monocytes # (auto) 0.57 K/uL (0.11-0.59); Monocytes % (auto) 7.1 %; Neutrophils # (auto) 4.68 K/uL (1.4-6.5); Neutrophils % (auto) 58.7 %; Platelet Count 190 K/uL (130-400); RDW Coefficient of Variation 17.5 % (11.5-14.5); RDW Standard Deviation 56.5 fL (36.4-46.3); Red Blood Count 3.15 M/uL (4.2-5.4); White Blood Count 7.98 K/uL (4.8-10.8)
[2019-12-05 06:44] LABS: BUN Creatinine Ratio 26.9 (10-20); Calcium 8.6 mg/dl (8.5-10.1); Creatinine Clr Calc Pharmacy 50.3 ml/min; Est GFR (African American) 49.4; Est GFR (Non-African American) 42.6
[2019-12-05] MEDS: PSYLLIUM 58.6% POWDER PACKET PO SCH ×2 (08:13→21:07)
[2019-12-05] MEDS: COLLAGENASE OINT 30 GM TUBE TOP SCH (08:14)
[2019-12-05] MEDS: ZINC SULFATE 220 MG CAPSULE PO SCH (08:15)
[2019-12-05] MEDS: CEROVITE ADV FORMULA TAB PO SCH (08:15)
[2019-12-05] MEDS: ASCORBIC ACID 500 MG TAB PO SCH ×2 (08:15→21:08)
[2019-12-05] MEDS: predniSONE 5 MG TAB PO SCH (08:15)
[2019-12-05] MEDS: PANTOprazole 40 MG TAB PO SCH (08:15)
[2019-12-05] MEDS: FOLIC ACID 1 MG TAB PO SCH (08:17)
[2019-12-05] MEDS: LACTOBACILLUS ACIDOPHILUS (FLORANEX) TAB PO SCH ×3 (08:17→17:43)
[2019-12-05] MEDS: FERROUS SULFATE 325 MG TAB PO SCH ×3 (08:18→17:43)
[2019-12-05] MEDS: LOSARTAN POTASSIUM 50 MG TAB PO SCH (08:20)
--- NOTE | 2019-12-05 10:15 | Hospitalist Progress Note ---
Date of Service December 05, 2019 Assessment & Plan (1) Pressure ulcer of upper thigh: Dona Villalpando is a 73 y/o female with past medical hx of RA on chronic steroids and PAD who was sent to the hospital directly from her wound care appointment for worsening right medial thigh wound and bilateral lower extremity cellulitis. Wound was cultured on 11/18/19 and patient was sent home with ciprofloxacin. Culture grew out pseudomonas resistant to Fluroquinolones and Aztreonam. Cefepime started on 11/28. She is POD 5 of surgical debridement, procedure went well. Wound did bleed through dressing on night of procedure, Hgb found to be 6.5. Patient has been transfused two units of pRBCs. Hgb has been stable since transfusion. Wound care following, insurance authorization declined inpatient rehab stay, will cover SNF. Cellulitis of right thigh - Cefepime 2g IV BID x 14 days, started on 11/28, via US guided PIV per [facility] ID recommendation - POD 5 s/p debridement by general surgery. Wound-vac placed today per wound care - s/p 2 u pRBC transfusion after initial Hg drop from surgery - vascular surgery consulted, recommending outpatient TBI and venous reflex studies - risk factors for wounds include PAD and chronic steroid use for rheumatoid arthritis Bacterial infection due to Pseudomonas: -Wound culture grew Pseudomonas which was resistant to outpatient antibiotic Ciprofloxacin. - management as above CKD (chronic kidney disease) stage 3, GFR 30-59 ml/min: - Cr 1.25, at baseline Rheumatoid arthritis: - Continue home dose plaquenil and prednisone. - She notes following with Rheumatology at [place] who tried to wean her but with even a 1mg decrease, she didn't tolerate and had difficulty opening/closing left hand. Peripheral arterial disease: - likely contributory to wound development - interventional cardiology (vascular) was consulted on admission as she was supposed to follow up after last discharge - recommending outpatient TBI and venous reflux studies HTN - continue Losartan 50mg qAM Chronic anemia: - Hgb at 9.1, iron level low - Continue folic acid and iron supplementation. Hyperlipidemia: - continue pravastatin 20mg PO HS Diet: heart healthy DVT prophylaxis: Lovenox SQ held Code: DNR/DNI. Dispo: [facility]. Appreciate assistance. Awaiting [facility] approval for disccharge. Admission and Anticipated Discharge Date Admission Date: November 25, 2019 Supervising Physician Co-Signing Physician Notes I personally examined the patient and verified all wood points of history and exam, discussed case, and agree with decision making with Dr Jennings. wound nurse to put vac on. [facility] denied for rehab, reportedly will approve snf - per discussions w dr jennings re her discussions w peer to peer doc. pt w nausea/vomiting earlier today and now a little bit of food aversion, although she wonders if yogurt would sit well and when i'm not able to find yogurt she is OK w trying jello and saltine crackers vitals noted nad heent nc at mmm breathing unlabored no accessory muscles good effort skin no rashes no pallor or icterus thigh ulcer w pseudomonal infection in the setting of chronic immunosuppression from RA/chronic steroid use -ongoing cefepime -ongoing local care including vac -discharge planning nausea/vomiting -uncertain etiology - but has only occurred once - symptom management and sup portive care, follow. eval further if repeated/recurrent otherwise as above Subjective 73-year-old female postop day 5 after wound debridement. Feels anxious and concerned that her wounds will not heal properly and that she want to make a full recovery. Review of Systems Constitutional: + fatigue; no fever, no chills and no body aches Respiratory: no cough and no dyspnea Cardiovascular: no chest pain, no dyspnea and no edema Gastrointestinal: no abdominal pain, no nausea, no vomiting, no constipation and no diarrhea/loose stools Genitourinary: no dysuria Physical Exam Physical Exam: Constitutional: obese, agitated and crying, sitting up in bed Eyes: EOMI, pupils equal and reactive bilaterally, no scleral icterus Cardiac: RRR, no murmurs, gallops or rubs. Normal S1, S2 Pulm: CTA BL, no wheezes, rhonchi, crackles or rubs, moving air well throughout both lungs Abd: soft, nontender, nondistended, normal bowel sounds, no rebound or guarding Skin: Right medial thigh wound intact, not oozing, not bleeding, no erythema of the surrounding skin, healthy pink tissue at the base, Results & Data Results & Data ([facility]) Vital Signs (Past 12 Hours) Vital Signs Temp Pulse Resp BP BP Pulse Ox 12/05/19 08:19 116/69 12/05/19 07:09 36.8 C 72 16 107/55 L 96 12/04/19 22:53 37.1 C 68 16 122/72 96 CBC: White blood cells 7.98, hemoglobin 8.7 stable, platelets 190 BMP: Sodium 146, potassium 4, chloride 123, carbon dioxide 17, BUN 34, creatinine 1.25 (baseline) Blood cultures negative at 5 days, right thigh wound specimen growing Pseudomonas as well as on the left leg Resident Activity Tracking Resident Involvement: Resident Care Provided Care Provided: Adult [facility]
[2019-12-05] MEDS ORDERED: ONDANSETRON INJ 2 MG/ML 2 ML VIAL IV STA (10:40)
[2019-12-05] MEDS: NYSTATIN POWDER 15GM BTL EXT SCH ×2 (10:55→21:10)
--- NOTE | 2019-12-05 19:05 | Billing Data ---
Date of Service December 05, 2019 Coding Level of Care Code 97601 Subseq Hosp Care Lvl 2
[2019-12-05] MEDS: HYDROXYCHLOROQUINE SULFATE 200 MG TAB PO SCH (21:08)
[2019-12-05] MEDS: PRAVASTATIN SOD 20 MG TAB PO SCH (21:08)
[2019-12-06] MEDS: CEFEPIME 2,000 MG in SYRINGE 7.5 ML IV SCH (05:59)
[2019-12-06] MEDS: FERROUS SULFATE 325 MG TAB PO SCH ×2 (08:52→12:12)
[2019-12-06] MEDS: LACTOBACILLUS ACIDOPHILUS (FLORANEX) TAB PO SCH ×2 (08:53→12:12)
[2019-12-06] MEDS: PSYLLIUM 58.6% POWDER PACKET PO SCH (08:53)
[2019-12-06] MEDS: predniSONE 5 MG TAB PO SCH (08:54)
[2019-12-06] MEDS: FOLIC ACID 1 MG TAB PO SCH (08:54)
[2019-12-06] MEDS: ASCORBIC ACID 500 MG TAB PO SCH (08:54)
[2019-12-06] MEDS: LOSARTAN POTASSIUM 50 MG TAB PO SCH (08:55)
[2019-12-06] MEDS: CEROVITE ADV FORMULA TAB PO SCH (08:56)
[2019-12-06] MEDS: PANTOprazole 40 MG TAB PO SCH (08:56)
[2019-12-06] MEDS: ZINC SULFATE 220 MG CAPSULE PO SCH (08:56)
--- NOTE | 2019-12-06 11:06 | Discharge Summary ---
Date of Service December 06, 2019 Admission HPI Per Admitting Provider Dona Villalpando is a 73 year old female who was sent to the ED by wound care provider after being seen in the office today. I discussed the case with Dr Srinivasan over the phone. She had a recent admission for bilateral lower extremity cellulitis after failing multiple oral antibiotics and eventually came to the ER from her cosmetic dentist in septic shock requiring ICU admission and PRINCESS. She was discharged after a prolonged admission to [facility] and was not referred to wound care until discharge back home. She reports her current wound on right thigh has been progressing since discharge on October 28. She went to wound care initially on November 17 and was and was thought not safe to return home but she didn't want to come to hospital at that time. Wound was cultured and grew pseudomonas and therefore was started on renally dosed ciprofloxacin once cultures were back. Despite this her wound got worse and on follow up today was advised to come to the ER via ambulance (her transport was unable to take her here. She currently denies any fever, chills (although is cold in the current room). Ongoing diarrhea but this has not changed since her last admission, x3 BM /day. In the ER blood and wound cultures retaken and started on Zerbaxa. Admission Exam Per Admitting Provider Constitutional: well developed and + morbidly obese; + not well nourished and no acute distress Eyes: + anicteric sclerae; normal pupil size ENMT: external ear and nose normal, oropharynx normal Neck: trachea midline, no thyromegaly Respiratory: normal respiratory effort, lungs clear to auscultation Cardiovascular: Rate/Rhythm: regular rate and regular rhythm Heart Sounds: no murmur Extremities: normal capillary refill and + edema (chronic venous stasis changes of b/l lower extremities improved discharge) Gastrointestinal (Abdomen): Inspection/Auscultation: normal bowel sounds Percussion/Palpation: abdomen soft; abdomen nontender, no guarding and abdomen not rigid Musculoskeletal: Head/Neck/Chest: normocephalic and head atraumatic Skin: open leg wound on inner right thigh (see wound care pictures from today) with surrounding erythema, warmth and swelling consistent with cellulitis. Neurologic: moves all extremities and awake; not confused Psychiatric: A+Ox3, euthymic affect Principal Diagnosis pseudomonal leg ulcer in the setting of chronic immune compromise from RA and chronic steroid use Discharge Exam Constitutional: obese, tearful laying in bed. Eyes: EOMI, pupils equal and reactive bilaterally, no scleral icterus Cardiac: RRR, no murmurs, gallops or rubs. Normal S1, S2 Pulm: CTA BL, no wheezes, rhonchi, crackles or rubs, moving air well throughout both lungs Abd: soft, nontender, nondistended, normal bowel sounds, no rebound or guarding Extremities: right medial thigh wound covered with wound vac, bilateral sanchez wounds covered in wrapping Neuro: no focal deficits, A&Ox3 Discharge Data Allergies Allergy/AdvReac Type Severity Reaction Status Date / Time cefadroxil Allergy Intermediate Rash Verified 11/25/19 14:24 Sulfa (Sulfonamide Allergy Unknown RASH Verified 11/25/19 14:24 Antibiotics) oxycodone AdvReac Unknown NAUSEA Verified 11/25/19 14:24 Consultations 11/25/19 19:30 Consult Cardiology Routine 11/25/19 19:35 Consult Infectious Diseases Routine 11/28/19 07:27 Consult Case Management - Discharge Planning Routine 11/28/19 12:06 Consult General Surgery Routine Procedures Performed Operation Date: 11/29/19 07:00 Actual Procedures p Right Upper Thigh Incision and Drainage(Right) - Shant Peter DO, FACS Ordered Studies 11/28/19 15:00 US extremity nonvascular Routine Hospital Course (1) Pressure ulcer of upper thigh: Dona Villalpando is a 73 y/o female with past medical hx of RA on chronic steroids and PAD who was sent to the hospital directly from her wound care appointment for worsening right medial thigh wound and bilateral lower extremity cellulitis. Wound was cultured on 11/18/19 and patient was sent home with ciprofloxacin. Culture grew out pseudomonas resistant to Fluroquinolones and Aztreonam. Cefepime started on 11/28. She is POD 5 of surgical debridement, procedure went well. Wound did bleed through dressing on night of procedure, Hgb found to be 6.5. Patient has been transfused two units of pRBCs. Hgb has been stable since transfusion. Wound care following, insurance authorization declined inpatient rehab stay, will cover SNF. Cellulitis of right thigh - Cefepime 2g IV BID x 14 days, started on 11/28, via US guided PIV per [facility] ID recommendation. TO finish regimen on 12/12 - surgical debridement on 11/29/19 - s/p 2 u pRBC transfusion after initial Hg drop from surgery - vascular surgery consulted, recommending outpatient TBI and venous reflex studies - risk factors for wounds include PAD and chronic steroid use for rheumatoid arthritis Bacterial infection due to Pseudomonas: -Wound culture grew Pseudomonas which was resistant to outpatient antibiotic Ciprofloxacin. - management as above Peripheral arterial disease: - likely contributory to wound development - interventional cardiology (vascular) was consulted on admission as she was supposed to follow up after last discharge - recommending outpatient TBI and venous reflux studies Diet: heart healthy DVT prophylaxis: Lovenox SQ Code: DNR/DNI. Dispo: SNF Other medical conditions managed per home regimen. Total Time Total Time Spent Total Time Spent (In Minutes): <30 Discharge Plan Discharge Items Patient Disposition: Transfer Halfway Fac Reason For Visit: MULTI-DRUG RESISTANT CELLULITIS Discharge Diagnosis: Multi drug resistant cellulitis Activity: Per Instructions section Non-emergency contact: Primary Care Provider Call non-emergency contact if: your wound has increased redness, your wound has increased drainage and your wound pain has increased Follow-up/Referrals: Svetlana Rosales CRNP [Primary Care Provider] - Diet: Heart Healthy Addtl Attending Provider Instructions: (1) Pressure ulcer of upper thigh: Dona Villalpando is a 73 y/o female with past medical hx of RA on chronic steroids and PAD who was sent to the hospital directly from her wound care appointment for worsening right medial thigh wound and bilateral lower extremity cellulitis. Wound was cultured on 11/18/19 and patient was sent home with ciprofloxacin. Culture grew out pseudomonas resistant to Fluroquinolones and Aztreonam. Cefepime started on 11/28. She is POD 6 of surgical debridement, procedure went well. Wound did bleed through dressing on night of procedure, Hgb found to be 6.5. Patient has been transfused two units of pRBCs. Hgb has been stable since transfusion. Wound care following, insurance authorization declined inpatient rehab stay, will cover SNF. Cellulitis of right thigh - Cefepime 2g IV BID x 14 days, started on 11/28, via US guided PIV per [facility] ID recommendation - POD 6 s/p debridement by general surgery. Wound-vac placed today per wound care - s/p 2 u pRBC transfusion after initial Hg drop from surgery - vascular surgery consulted, recommending outpatient TBI and venous reflex studies - risk factors for wounds include PAD and chronic steroid use for rheumatoid arthritis Bacterial infection due to Pseudomonas: -Wound culture grew Pseudomonas which was resistant to outpatient antibiotic Ciprofloxacin. - management as above CKD (chronic kidney disease) stage 3, GFR 30-59 ml/min: - Cr 1.25, at baseline Rheumatoid arthritis: - Continue home dose plaquenil and prednisone. - She notes following with Rheumatology at [facility] who tried to wean her but with even a 1mg decrease, she didn't tolerate and had difficulty opening/closing left hand. Peripheral arterial disease: - likely contributory to wound development - interventional cardiology (vascular) was consulted on admission as she was supposed to follow up after last discharge - recommending outpatient TBI and venous reflux studies HTN - continue Losartan 50mg qAM Chronic anemia: - Hgb at 9.1, iron level low - Continue folic acid and iron supplementation. Hyperlipidemia: - continue pravastatin 20mg PO HS Diet: heart healthy DVT prophylaxis: Lovenox SQ held Code: DNR/DNI. Pending Studies at Discharge: No Stand-Alone Forms: [facility] Skilled Items Patient informed of condition?: Yes DNR: Yes Discharge Level of Care: Skilled Communicable Disease: No Discharge Prognosis: Improving Lines: US Guided Peripheral IV Urinary Catheter: No Medications and DC Order Prescriptions: New acetaminophen 325 mg Tablet 650 mg PO Q4H PRN (Reason: pain) 30 Days Qty: 30 RF: 0 Desenex 2 % Powder 1 applic EXT PRN PRN (Reason: rash) 30 Days RF: 0 nystatin [Nystop] 100,000 unit/gram Powder 1 applic EXT BID 30 Days RF: 0 enoxaparin 40 mg/0.4 mL Syringe 40 mg subcut BID 30 Days Qty: 24 RF: 0 cefepime 2 gram recon soln 2 g IV Q12H Qty: 14 RF: 0 Continued Santyl 250 unit/gram ointment 1 applic TOP DAILY Qty: 90 RF: 1 ferrous sulfate 325 mg (65 mg iron) tablet 325 mg PO TIDM RF: 0 ciprofloxacin HCl 500 mg tablet 250 mg PO Q12H RF: 0 tramadol 50 mg tablet 50 mg PO Q6H PRN (Reason: Pain) RF: 0 mupirocin 2 % ointment 1 applic TOPICAL DAILY RF: 0 prednisone 5 mg tablet 7.5 mg PO QAM RF: 0 pravastatin 20 mg tablet 20 mg PO QPM RF: 0 hydroxychloroquine 200 mg tablet 400 mg PO HS RF: 0 ascorbic acid (vitamin C) [Vitamin C] 500 mg Tablet 500 mg PO BID 30 Days Qty: 60 RF: 0 pantoprazole 40 mg Tablet,Delayed Release (Dr/Ec) 40 mg PO QAM 30 Days Qty: 30 RF: 0 folic acid 1 mg Tablet 1 mg PO QAM Qty: 30 RF: 0 Certavite-Antioxidant 18-400 mg-mcg Tablet 1 tab PO QAM 30 Days Qty: 30 RF: 0 aspirin 81 mg tablet,delayed release (DR/EC) 81 mg PO DAILY Qty: 30 RF: 0 Discontinued zinc sulfate [Orazinc] 220 (50) mg Capsule 220 mg PO QAM 30 Days Qty: 30 RF: 0 Discharge Orders: Discharge Order (Routine); Ordered 12/06/19 Ordered By: Annalee Jennings Admission Data Admit Date/Time: 11/25/19 16:30 Attending Provider: Luan Nj Admit Provider: Osvaldo Middleton Primary Care Provider: Svetlana Rosales Other Providers: [employer] ; David Block ; Dominick Reyes ; Kori Garcia ; Edgar Escamilla I. ; Wilfredo Carbajal II ; Haley Strong ; Rocael Quinonez ; Shant Peter ; [facility] ; [facility] [place] ; Annalee Jennings ; Elpidio Bateman Other Interventions: Discharge Summary Assessment (RN) Last Done: 12/06/19 11:44 Supervising Physician Co-Signing Physician Notes I personally examined the patient and verified all wood points of history and exam, discussed case, and agree with decision making with Dr Jennings. no new problems - just scared. tried to offer support and reassurance as best i could. vitals noted nad heent nc at mmm breathing unlabored no accessory muscles good effort skin no rashes no pallor or icterus thigh ulcer w pseudomonal infection in the setting of chronic immunosuppression from RA/chronic steroid use -ongoing cefepime -ongoing local care including vac -discharge planning - stable for SNF otherwise as above Resident Activity Tracking Resident Involvement: Resident Care Provided Care Provided: Adult Hospital Medicine
--- NOTE | 2019-12-06 20:32 | Billing Data ---
Date of Service December 06, 2019 Coding Level of Care Code D/C Day Management <30 mins
== END 2019-12-06 12:31 | DRG 570 ==
LOC: ED 15:25 → 2N 16:30 → SUATTDRO 16:30 → 2N 17:35 → 3N 12-02 09:55

== ENCOUNTER 2020-11-16 12:06 | Inpatient (IN) ==
[2020-11-16] MEDS ORDERED: PIPERACILLIN/TAZOBACTAM 4.5 GM/120 ML BAG IV ONE (15:41)
[2020-11-16] MEDS ORDERED: PIPERACILL/TAZOBAC CONSULT ACTIVE PRN (15:41)
--- NOTE | 2020-11-16 15:41 | Emergency Department Note ---
History of Present Illness General Chief complaint: Wound Stated complaint: leak Time Seen by Provider: 11/16/20 15:01 History of Present Illness Maximum Pain Intensity: 0 This is a 74-year-old female that presents to the emergency department via ambulance with complaints of "left leg wound". Patient notes that she began with what she describes as left leg wound since Thursday morning. She notes that this began shortly after her ultrasound on Thursday. Patient has been seen in the wound clinic for her wounds. Patient states that she is not currently on antibiotics. Patient notes that she was called by the wound care center today and referred here for evaluation. She denies any fevers, chills, nausea or vomiting. Although she notes the wound is sore she respectfully declines pain medication. She presented here today after calling 911 to be brought here via ambulance. She notes that she lives alone but does have a in-house nurse every other day. Home Medications Medication Instructions Recorded Confirmed Type hydroxychloroquine 200 mg tablet 400 mg PO DAILY 08/06/18 11/16/20 History aspirin 81 mg tablet,delayed 81 mg PO DAILY #30 tab 10/29/19 11/16/20 Rx release pravastatin 20 mg tablet 20 mg PO DAILY 03/09/20 11/16/20 History nystatin 100,000 unit/gram topical 1 applic TOPICAL DAILY #30 g 05/25/20 11/16/20 Rx powder leflunomide 10 mg tablet 10 mg PO DAILY 07/10/20 11/16/20 History desoximetasone 0.25 % topical 1 applic TOPICAL DAILY PRN #100 g 08/20/20 11/16/20 Rx ointment doxycycline hyclate 100 mg tablet 100 mg PO bid 14 Days #28 tab 11/13/20 11/16/20 Rx gentamicin 0.1 % topical ointment 1 applic TOPICAL DAILY 14 Days #30 11/16/20 11/16/20 Rx g prednisone 5 mg tablet 5 - 7.5 mg PO DAILY 11/16/20 11/16/20 History Allergies Allergy/AdvReac Type Severity Reaction Status Date / Time cefadroxil Allergy Intermediate Rash Verified 11/16/20 16:34 cefepime Allergy Unknown Unknown Verified 11/16/20 16:34 cephalexin [From Keflex] Allergy Unknown Unknown Verified 11/16/20 16:34 Sulfa (Sulfonamide Allergy Unknown RASH Verified 11/16/20 16:34 Antibiotics) amoxicillin [From Augmentin] Allergy Rash Verified 11/16/20 16:36 clavulanic acid Allergy Rash Verified 11/16/20 16:36 [From Augmentin] oxycodone AdvReac Unknown NAUSEA Verified 11/16/20 16:34 Past Med/Surg History Medical History (Updated 11/16/20 @ 17:29 by Jairo Davis PA-C) Anemia 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 ~2016, PHYSICAL THERAPY. USES WALKER HLD (hyperlipidemia) HTN (hypertension) No blood products PER PATIENT REQUEST Obesity Pneumonia AUGUST 2017 Pressure ulcer of upper thigh Rheumatoid arthritis Septic shock Surgical History History of cataract surgery BILATERAL History of colonoscopy History of surgical removal of skin lesion BACK History of total hip replacement RIGHT S/P debridement (11/29/19) Right Thigh wound debridement, sharp, greater than [address] 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 Feels Safe at Home: Yes Assistive Devices: Glasses, Special Shoe and Walker Review of Systems A total of 10 systems reviewed and were otherwise negative Physical Exam Vital Signs Vital Signs - 24 hr 11/16/20 13:11 Temperature 36.5 C Temperature Source Oral Pulse Rate 94 H Pulse Rhythm Regular Pulse Strength Normal Respiratory Rate 20 Respiratory Effort / Characteristics Non-Labored Respiratory Depth Normal Blood Pressure 162/84 H Blood Pressure Mean 110 Blood Pressure Position Sitting Pulse Oximetry 99 Oxygen Delivery Method Room Air Sepsis Recent Fever Within 48 Hours No Sepsis New/Unexplained Change in Mental Status N/A Sepsis Action Taken by Nursing No Action Required VITAL SIGNS - Vital signs and nursing notes were reviewed. Stable and afebrile. Hypertensive. GENERAL -74-year-old female appearing her stated age who is in no acute distress. Communicates well with provider and answers questions appropriately. SKIN -bilateral chronic lower extremity edema noted. There is evidence of well- healed wound to the right medial knee region. There is a large, open wound to the left medial knee region with wound measuring approximately 5 cm x 4 cm with surrounding large cellulitic area. Mild drainage from the wound noted. No fluctuance. HEAD - NC/AT. EYES - Sclera anicteric. EARS - No deformities of external structures noted on gross examination bila terally. NOSE - Midline and without cyanosis. No epistaxis or purulent drainage noted. MOUTH/OROPHARYNX - Without perioral cyanosis. NECK - Neck with FROM. No nuchal rigidity. LUNGS - Chest wall symmetric without accessory muscle use, intercostals retractions, or central cyanosis. Normal vesicular breath sounds CTA B/L. No wheezes, rales, or rhonchi appreciated. CARDIAC - RRR with S1/S2. No murmur, rubs, or gallops appreciated. EXTREMITIES - No clubbing or peripheral cyanosis. Chronic bilateral lower extremity edema noted. Left leg skin as above. +5/5 strength noted in UE/LE bilaterally. NEUROLOGIC -patient sensory intact to light touch of the left lower extremity. PSYCH - A&O, and cooperates fully with examiner. Pt is very pleasant and interacts well with examiner. Course Administered Medications Ferrous Sulfate (Ferrous Sulfate 325 Mg Tab) 325 mg PO TIDM FRANSISCO Stop: 12/16/20 20:07 Last Admin: 11/16/20 22:00 Dose: 325 mg Documented by: [id number] Hydroxychloroquine Sulfate (Hydroxychloroquine Sulfate 200 Mg Tab) 400 mg PO HS FRANSISCO Stop: 12/16/20 20:59 Last Admin: 11/16/20 22:00 Dose: 400 mg Documented by: [id number] Piperacillin Sod/Tazobactam (Sod 3.375 gm/ Dextrose) 115 mls @ 28.75 mls/hr IV Q8H FRANSISCO; Protocol Stop: 11/23/20 20:59 Last Admin: 11/16/20 21:49 Dose: 28.8 mls/hr Documented by: [id number] Insulin Aspart (Insulin Aspart 100 Units/Ml 3 Ml Pen) 0 units SC ACHS FRANSISCO Stop: 12/16/20 20:59 Last Admin: 11/16/20 22:40 Dose: Not Given Documented by: [id number] Cosigned by: [id number] Miscellaneous (Gentamicin 0.1 % Ointment -- Order Awaiting Action) 1 ea N/A QS FRANSISCO Stop: 12/17/20 00:00 Last Admin: 11/16/20 22:41 Dose: Not Given Documented by: [id number] Discontinued Medications Piperacillin Sod/Tazobactam Sod (Zosyn) 4.5 gm in 120 mls @ 240 mls/hr IV NOW ONE Stop: 11/16/20 16:10 Last Infusion: 11/16/20 16:43 Dose: 0 mls/hr Documented by: [id number] Admin: 11/16/20 16:12 Dose: 240 mls/hr Documented by: [id number] Vancomycin HCl 1,750 mg/ (Sodium Chloride) 535 mls @ 200 mls/hr IV NOW ONE Stop: 11/16/20 18:40 Last Infusion: 11/16/20 20:08 Dose: 0 mls/hr Documented by: [id number] Admin: 11/16/20 16:41 Dose: 200 mls/hr Documented by: [id number] Potassium Chloride (Potassium Chloride Crtab 20 Meq Tabcr) 60 meq PO NOW STA Stop: 11/16/20 17:02 Last Admin: 11/16/20 17:34 Dose: 60 meq Documented by: [id number] Medical Decision Making Laboratory Data Result diagrams: 11/16/20 16:01 11/16/20 16:01 Lab Results 11/16/20 11/16/20 Range/Units 15:35 15:35 COVID-19 Eval Order Covid19 at [facility] SARS-CoV-2 (PCR) NEGATIVE (Negative) Imaging Data Radiologist's Impression: Femur X-Ray 11/16/20 16:00 XR femur LT 2V routine CLINICAL HISTORY: Left leg wound. COMPARISON: Left knee radiographs December 25, 2009. FINDINGS: Alignment of the left hip is anatomic. Left knee arthroplasty is noted. The distal aspect of the tibial component is demonstrated on the tibia and fibula radiographs which will be reported separately. Visualized portions are intact. There is no left femoral fracture. Extensive vascular calcification. There is no evidence for osteomyelitis within the left femur. Left leg soft tissue swelling is present. IMPRESSION: 1. No acute fracture within the left femur. No evidence for osteomyelitis. 2. Intact total left knee arthroplasty. 3. Left leg soft tissue swelling. ACT 112: Negative or not required by law. Electronically signed by: Brady Hassan M.D. 11/16/2020 4:52 PM Tibia/Fibula X-Ray 11/16/20 16:00 XR tibia fibula LT 2V CLINICAL HISTORY: L leg wound COMPARISON: Left knee radiographs December 25, 2009. FINDINGS: Alignment of left knee arthroplasty is anatomic. No acute fracture within the left tibia or fibula is noted. There is no evidence for acute osteomyelitis. There is extensive vascular calcification. Talar dome is intact. IMPRESSION: 1. No acute fracture or evidence for acute osteomyelitis within the left tibia or fibula. 2. Intact total left knee arthroplasty. ACT 112: Negative or not required by law. Electronically signed by: Brady Hassan M.D. 11/16/2020 4:51 PM MDM Narrative Patient was seen and evaluated as above in room C01. Review was performed of nursing notes and vital signs. I did review pertinent previous visits and patie nt history. After obtaining a thorough history and physical examination the above work up was performed. Patient presents to us today via ambulance for evaluation of left leg wound. There is surrounding erythema with an open wound noted. Patient will require further care and management in the hospital secondary to this. Options of care were discussed with the patient. IV access established. Labs were drawn. She was given empiric Zosyn after reviewing most recent wound culture and that was obtained on 11/13/2020 growing out pansensitive Pseudomonas aeruginosa. Although the patient denied currently taking antibiotics I will note that it does appear there is a recent fill history of doxycycline just a few days ago. Patient this time is not appear septic. Blood cultures, lactic, pro-Mj were also ordered. I discussed this with our clinical pharmacist as well as ED attending physician. In reviewing her previous culture and also noting no documented penicillin allergy at this time I believe Zosyn would be reasonable. It is also documented she has had this previously without di fficulty at this facility. After this was administered I will note that an Augmentin allergy was then added to her list. I discussed this with the patient. She was reassessed post Zosyn administration and had no symptoms of allergic reaction whatsoever. No rash. She was feeling well. I also discussed her infection and presentation with the hospitalist noting that she will require further evaluation and management here in the hospital setting. Hospitalist recommended adding x-rays. These were ordered of the left tib- fib/femur. These were negative for any emergent process. Please refer to further documentation regarding her stay. Laboratory studies reveal no leukocytosis or concerning anemia. No emergent metabolic disturbance. Creatinine 1.3 with BUN at 19. Potassium 3.1. Alk phos 562. Troponin negative. CRP mild elevated at 21.8. Pro-Mj 1.39. Covid testing negative. X-rays reveal no evidence of osteomyelitis. No soft tissue air. I will note the patient was seen during a period of high volume and high acuity. GCS: 15 In the evaluation and treatment of this patient the following differential diagnoses were entertained: Cellulitis, sepsis, abscess, SJS, TENS, among others. Impression & Plan Cellulitis of left thigh Discharge Plan Visit Data Chief Complaint: Wound Stated Complaint: leak ED Provider: Maulik Boateng ED Midlevel Provider: Jairo Davis Discharge Problem: Cellulitis of left thigh Patient Disposition: Admitted As Inpatient Condition: Good Discharge Instructions Interventions: ED Discharge Assessment Last Done: 11/16/20 18:54
[2020-11-16] MEDS ORDERED: VANCOMYCIN HCL 1,750 MG in SODIUM CHLORIDE 0.9% 500 ML IV ONE (16:00)
--- NOTE | 2020-11-16 16:02 | History & Physical Report ---
Date of Service November 16, 2020 Assessment & Plan (1) Cellulitis of left thigh: Plan: Superficial wound culture demonstrating Pseudomonas unsure if this is colonization versus actual infection -No evidence of active necrotizing fasciitis at this time -Empiric Zosyn and vancomycin IV -Wound care consult (2) Chronic venous insufficiency: Plan: Currently in wound dressings (3) Venous stasis of both lower extremities: Plan: Currently in wound dressing (4) Edema of left lower leg: Plan: Follow-up with wound care recommendations (5) Hypoalbuminemia: Plan: Chronic protein calorie malnutrition (6) CKD (chronic kidney disease) stage 3, GFR 30-59 ml/min: Plan: Close observation appears to be at baseline (7) Hypokalemia: Plan: 60 M EQ K-Dur p.o. x1 in ED History of Present Illness Chief Complaint: Cellulitis Primary Care Provider: KARI Coughlin Patient is a 74-year-old female with a significant past medical history of rheumatoid arthritis who presents with a worsening lesion on the inner portion of her left thigh. She reports that it was worse after an ultrasound on Thursday which is 4 days prior. She denies fevers chills there is increasing redness in the area. She was seen by her primary care doctor who started her on doxycycline. She denies chest pain or shortness of breath. Allergies Allergy/AdvReac Type Severity Reaction Status Date / Time cefadroxil Allergy Intermediate Rash Verified 11/16/20 16:34 cefepime Allergy Unknown Unknown Verified 11/16/20 16:34 cephalexin [From Keflex] Allergy Unknown Unknown Verified 11/16/20 16:34 Sulfa (Sulfonamide Allergy Unknown RASH Verified 11/16/20 16:34 Antibiotics) amoxicillin [From Augmentin] Allergy Rash Verified 11/16/20 16:36 clavulanic acid Allergy Rash Verified 11/16/20 16:36 [From Augmentin] oxycodone AdvReac Unknown NAUSEA Verified 11/16/20 16:34 Home Medications Medication Instructions Recorded Confirmed Type hydroxychloroquine 200 mg tablet 400 mg PO DAILY 08/06/18 11/16/20 History aspirin 81 mg tablet,delayed 81 mg PO DAILY #30 tab 10/29/19 11/16/20 Rx release pravastatin 20 mg tablet 20 mg PO DAILY 03/09/20 11/16/20 History nystatin 100,000 unit/gram topical 1 applic TOPICAL DAILY #30 g 05/25/20 11/16/20 Rx powder leflunomide 10 mg tablet 10 mg PO DAILY 07/10/20 11/16/20 History desoximetasone 0.25 % topical 1 applic TOPICAL DAILY PRN #100 g 08/20/20 11/16/20 Rx ointment doxycycline hyclate 100 mg tablet 100 mg PO bid 14 Days #28 tab 11/13/20 11/16/20 Rx gentamicin 0.1 % topical ointment 1 applic TOPICAL DAILY 14 Days #30 11/16/20 11/16/20 Rx g prednisone 5 mg tablet 5 - 7.5 mg PO DAILY 11/16/20 11/16/20 History Past Med/Surg History Medical History (Updated 11/16/20 @ 16:47 by Miky Ying DO) Anemia Bacterial infection due to Serratia Cancer MELANOMA Cellulitis BILATERAL LEGS AND FEET, INPATIENT [facility] (JULY 2018) Chronic steroid use CKD (chronic kidney disease) stage 3, GFR 30-59 ml/min Folate deficiency Fracture of sacrum BILATERAL. ~2016, PHYSICAL THERAPY. USES WALKER HLD (hyperlipidemia) HTN (hypertension) No blood products PER PATIENT REQUEST Obesity Pneumonia AUGUST 2017 Pressure ulcer of upper thigh Rheumatoid arthritis Septic shock Surgical History History of cataract surgery BILATERAL History of colonoscopy History of surgical removal of skin lesion BACK History of total hip replacement RIGHT S/P debridement (11/29/19) Right Thigh wound debridement, sharp, greater than [address] 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 Feels Safe at Home: Yes Assistive Devices: Walker Review of Systems Review of Systems: All systems reviewed & are unremarkable except as noted in HPI & below Physical Exam Physical Exam: General: Obese elderly female appears her stated age I have reviewed the recorded vital signs Neurological: Moves all 4 extremities, Psychological: GCS 15 following complex commands Eyes: Pupils are equal, round and reactive to light, anicteric sclera. Symmetrical lids. HENT: Oropharynx Clear, moist Mucous Membranes. Neck: Supple. Symmetric. trachea midline. No thyromegaly. Cardiovascular: Normal peripheral perfusion. Distal pulses and capillary refill intact. No JVD. Respiratory: Respirations are non-labored, no accessory muscle use. Breath sounds are equal. Gastrointestinal: Soft. Non-distended. Lymphatic: No obvious inguinal lymphadenopathy Musculoskeletal: No deformity. No clubbing nor cyanosis. Skin: A 4 cm x 5 cm area of darkened cellulitic erythematous tissue surrounded by approximately 10 cm area of skin with cellulitic changes no lymphangitis Results & Data Results & Data ([facility]) Vital Signs (Past 12 Hours) Vital Signs Temp Pulse Resp BP Pulse Ox 11/16/20 13:11 36.5 C 94 H 20 162/84 H 99 Laboratory Results 11/16/20 11/16/20 11/16/20 Range/Units 16:11 16:01 16:01 WBC (4.8-10.8) K/uL RBC (4.2-5.4) M/uL Hgb (12.0-16.0) g/dL Hct (37-47) % MCV (80-100) fL MCH (25-34) pg MCHC (32-36) g/dL RDW Std Deviation (36.4-46.3) fL RDW Coeff of Saadia (11.5-14.5) % Plt Count (130-400) K/uL MPV (7.4-10.4) fL Immature Gran % (Auto) % Neut % (Auto) % Lymph % (Auto) % Collier % (Auto) % Eos % (Auto) % Baso % (Auto) % Neut # (Auto) (1.4-6.5) K/uL Lymph # (Auto) (1.2-3.4) K/uL Collier # (Auto) (0.11-0.59) K/uL Eos # (Auto) (0-0.5) K/uL Baso # (Auto) (0-0.2) K/uL Immature Gran # (Auto) (0.00-0.02) K/uL ESR Sodium 140 (136-145) mmol/L Potassium 3.1 L (3.5-5.1) mmol/L Chloride 110 H (98-107) mmol/L Carbon Dioxide 24 (21-32) mmol/L Anion Gap 6.0 (3-11) BUN 19 H (7-18) mg/dl Creatinine 1.30 H (0.6-1.2) mg/dl Est Cr Clr Drug Dosing 41.7 ml/min Est GFR ( Amer) 46.8 ml/min Est GFR (Non-Af Amer) 40.4 ml/min BUN/Creatinine Ratio 14.6 (10-20) Glucose 80 (70-99) mg/dl Lactate 1.1 (0.4-2.0) mmol/L Calcium 9.0 (8.5-10.1) mg/dl Magnesium 2.0 (1.8-2.4) mg/dl Total Bilirubin 1.1 H (0.2-1) mg/dl AST 99 H (15-37) U/L ALT 74 (12-78) U/L Alkaline Phosphatase 562 H (45-117) U/L Troponin I < 0.015 (0-0.045) ng/ml C-Reactive Protein 21.80 H (0-0.29) mg/dl Total Protein 6.1 L (6.4-8.2) gm/dl Albumin 2.1 L (3.4-5.0) gm/dl Globulin 4.0 (2.5-4.0) gm/dl Albumin/Globulin Ratio 0.5 L (0.9-2) Procalcitonin Pending COVID-19 Eval Order SARS-CoV-2 (PCR) (Negative) 11/16/20 11/16/20 11/16/20 Range/Units 16:01 16:01 15:35 WBC 8.40 (4.8-10.8) K/uL RBC 4.24 (4.2-5.4) M/uL Hgb 11.6 L (12.0-16.0) g/dL Hct 36.4 L (37-47) % MCV 85.8 (80-100) fL MCH 27.4 (25-34) pg MCHC 31.9 L (32-36) g/dL RDW Std Deviation 45.1 (36.4-46.3) fL RDW Coeff of Saadia 14.4 (11.5-14.5) % Plt Count 269 (130-400) K/uL MPV 9.7 (7.4-10.4) fL Immature Gran % (Auto) 0.8 % Neut % (Auto) 77.2 % Lymph % (Auto) 10.6 % Collier % (Auto) 6.2 % Eos % (Auto) 5.1 % Baso % (Auto) 0.1 % Neut # (Auto) 6.48 (1.4-6.5) K/uL Lymph # (Auto) 0.89 L (1.2-3.4) K/uL Collier # (Auto) 0.52 (0.11-0.59) K/uL Eos # (Auto) 0.43 (0-0.5) K/uL Baso # (Auto) 0.01 (0-0.2) K/uL Immature Gran # (Auto) 0.07 H (0.00-0.02) K/uL ESR Pending Sodium (136-145) mmol/L Potassium (3.5-5.1) mmol/L Chloride (98-107) mmol/L Carbon Dioxide (21-32) mmol/L Anion Gap (3-11) BUN (7-18) mg/dl Creatinine (0.6-1.2) mg/dl Est Cr Clr Drug Dosing ml/min Est GFR ( Amer) ml/min Est GFR (Non-Af Amer) ml/min BUN/Creatinine Ratio (10-20) Glucose (70-99) mg/dl Lactate (0.4-2.0) mmol/L Calcium (8.5-10.1) mg/dl Magnesium (1.8-2.4) mg/dl Total Bilirubin (0.2-1) mg/dl AST (15-37) U/L ALT (12-78) U/L Alkaline Phosphatase (45-117) U/L Troponin I (0-0.045) ng/ml C-Reactive Protein (0-0.29) mg/dl Total Protein (6.4-8.2) gm/dl Albumin (3.4-5.0) gm/dl Globulin (2.5-4.0) gm/dl Albumin/Globulin Ratio (0.9-2) Procalcitonin COVID-19 Eval Order SARS-CoV-2 (PCR) NEGATIVE (Negative) 11/16/20 Range/Units 15:35 WBC (4.8-10.8) K/uL RBC (4.2-5.4) M/uL Hgb (12.0-16.0) g/dL Hct (37-47) % MCV (80-100) fL MCH (25-34) pg MCHC (32-36) g/dL RDW Std Deviation (36.4-46.3) fL RDW Coeff of Saadia (11.5-14.5) % Plt Count (130-400) K/uL MPV (7.4-10.4) fL Immature Gran % (Auto) % Neut % (Auto) % Lymph % (Auto) % Collier % (Auto) % Eos % (Auto) % Baso % (Auto) % Neut # (Auto) (1.4-6.5) K/uL Lymph # (Auto) (1.2-3.4) K/uL Collier # (Auto) (0.11-0.59) K/uL Eos # (Auto) (0-0.5) K/uL Baso # (Auto) (0-0.2) K/uL Immature Gran # (Auto) (0.00-0.02) K/uL ESR Sodium (136-145) mmol/L Potassium (3.5-5.1) mmol/L Chloride (98-107) mmol/L Carbon Dioxide (21-32) mmol/L Anion Gap (3-11) BUN (7-18) mg/dl Creatinine (0.6-1.2) mg/dl Est Cr Clr Drug Dosing ml/min Est GFR ( Amer) ml/min Est GFR (Non-Af Amer) ml/min BUN/Creatinine Ratio (10-20) Glucose (70-99) mg/dl Lactate (0.4-2.0) mmol/L Calcium (8.5-10.1) mg/dl Magnesium (1.8-2.4) mg/dl Total Bilirubin (0.2-1) mg/dl AST (15-37) U/L ALT (12-78) U/L Alkaline Phosphatase (45-117) U/L Troponin I (0-0.045) ng/ml C-Reactive Protein (0-0.29) mg/dl Total Protein (6.4-8.2) gm/dl Albumin (3.4-5.0) gm/dl Globulin (2.5-4.0) gm/dl Albumin/Globulin Ratio (0.9-2) Procalcitonin COVID-19 Eval Order Covid19 at [facility] SARS-CoV-2 (PCR) (Negative) 11/16/20 11/16/20 11/16/20 Range/Units 16:11 16:01 16:01 WBC (4.8-10.8) K/uL RBC (4.2-5.4) M/uL Hgb (12.0-16.0) g/dL Hct (37-47) % MCV (80-100) fL MCH (25-34) pg MCHC (32-36) g/dL RDW Std Deviation (36.4-46.3) fL RDW Coeff of Saadia (11.5-14.5) % Plt Count (130-400) K/uL MPV (7.4-10.4) fL Immature Gran % (Auto) % Neut % (Auto) % Lymph % (Auto) % Collier % (Auto) % Eos % (Auto) % Baso % (Auto) % Neut # (Auto) (1.4-6.5) K/uL Lymph # (Auto) (1.2-3.4) K/uL Collier # (Auto) (0.11-0.59) K/uL Eos # (Auto) (0-0.5) K/uL Baso # (Auto) (0-0.2) K/uL Immature Gran # (Auto) (0.00-0.02) K/uL ESR Sodium 140 (136-145) mmol/L Potassium 3.1 L (3.5-5.1) mmol/L Chloride 110 H (98-107) mmol/L Carbon Dioxide 24 (21-32) mmol/L Anion Gap 6.0 (3-11) BUN 19 H (7-18) mg/dl Creatinine 1.30 H (0.6-1.2) mg/dl Est Cr Clr Drug Dosing 41.7 ml/min Est GFR ( Amer) 46.8 ml/min Est GFR (Non-Af Amer) 40.4 ml/min BUN/Creatinine Ratio 14.6 (10-20) Glucose 80 (70-99) mg/dl Lactate Pending Calcium 9.0 (8.5-10.1) mg/dl Magnesium 2.0 (1.8-2.4) mg/dl Total Bilirubin Pending AST 99 H (15-37) U/L ALT 74 (12-78) U/L Alkaline Phosphatase Pending Troponin I Pending C-Reactive Protein Pending Total Protein Pending Albumin 2.1 L (3.4-5.0) gm/dl Globulin Pending Albumin/Globulin Ratio Pending Procalcitonin Pending COVID-19 Eval Order SARS-CoV-2 (PCR) (Negative) 11/16/20 11/16/20 11/16/20 Range/Units 16:01 16:01 15:35 WBC 8.40 (4.8-10.8) K/uL RBC 4.24 (4.2-5.4) M/uL Hgb 11.6 L (12.0-16.0) g/dL Hct 36.4 L (37-47) % MCV 85.8 (80-100) fL MCH 27.4 (25-34) pg MCHC 31.9 L (32-36) g/dL RDW Std Deviation 45.1 (36.4-46.3) fL RDW Coeff of Saadia 14.4 (11.5-14.5) % Plt Count 269 (130-400) K/uL MPV 9.7 (7.4-10.4) fL Immature Gran % (Auto) 0.8 % Neut % (Auto) 77.2 % Lymph % (Auto) 10.6 % Collier % (Auto) 6.2 % Eos % (Auto) 5.1 % Baso % (Auto) 0.1 % Neut # (Auto) 6.48 (1.4-6.5) K/uL Lymph # (Auto) 0.89 L (1.2-3.4) K/uL Collier # (Auto) 0.52 (0.11-0.59) K/uL Eos # (Auto) 0.43 (0-0.5) K/uL Baso # (Auto) 0.01 (0-0.2) K/uL Immature Gran # (Auto) 0.07 H (0.00-0.02) K/uL ESR Pending Sodium (136-145) mmol/L Potassium (3.5-5.1) mmol/L Chloride (98-107) mmol/L Carbon Dioxide (21-32) mmol/L Anion Gap (3-11) BUN (7-18) mg/dl Creatinine (0.6-1.2) mg/dl Est Cr Clr Drug Dosing ml/min Est GFR ( Amer) ml/min Est GFR (Non-Af Amer) ml/min BUN/Creatinine Ratio (10-20) Glucose (70-99) mg/dl Lactate Calcium (8.5-10.1) mg/dl Magnesium (1.8-2.4) mg/dl Total Bilirubin AST (15-37) U/L ALT (12-78) U/L Alkaline Phosphatase Troponin I C-Reactive Protein Total Protein Albumin (3.4-5.0) gm/dl Globulin Albumin/Globulin Ratio Procalcitonin COVID-19 Eval Order SARS-CoV-2 (PCR) NEGATIVE (Negative) 11/16/20 Range/Units 15:35 WBC (4.8-10.8) K/uL Anion Gap (3-11) BUN (7-18) mg/dl Creatinine (0.6-1.2) mg/dl Est Cr Clr Drug Dosing ml/min Est GFR ( Amer) ml/min Est GFR (Non-Af Amer) ml/min BUN/Creatinine Ratio (10-20) Glucose (70-99) mg/dl Lactate Calcium (8.5-10.1) mg/dl Magnesium (1.8-2.4) mg/dl Total Bilirubin AST (15-37) U/L ALT (12-78) U/L Alkaline Phosphatase Troponin I C-Reactive Protein Total Protein Albumin (3.4-5.0) gm/dl Globulin Albumin/Globulin Ratio Procalcitonin COVID-19 Eval Order Covid19 at [facility] SARS-CoV-2 (PCR) (Negative) Code Status & VTE Plan Code Status DNR/DNI VTE Prophylaxis Plan VTE Prophylaxis will be ordered: Yes PG Care Time/CCT Total # of Minutes Spent Total Time Spent with Patient: Total time spent is greater than 50% in coordination of care (as documented) at patient's floor/unit and/or counseling patient: Coding Level of Care Code 97341 Initial Inpt Care Lvl 3 Diagnoses Chronic venous insufficiency I87.2 Venous stasis of both lower extremities I87.8 Edema of left lower leg R60.0 Cellulitis of left thigh L03.116 Hypoalbuminemia E88.09 CKD (chronic kidney disease) stage 3, GFR 30-59 ml/min N18.3 Hypokalemia E87.6
[2020-11-16 16:21] LABS: Basophils # (auto) 0.01 K/uL (0-0.2); Basophils % (auto) 0.1 %; Eosinophils # (auto) 0.43 K/uL (0-0.5); Eosinophils % (auto) 5.1 %; Hematocrit (blood only) 36.4 % (37-47); Hemoglobin 11.6 g/dL (12.0-16.0); Immature Granulocytes # (auto) 0.07 K/uL (0.00-0.02); Immature Granulocytes % (auto) 0.8 %; Lymphocytes # (auto) 0.89 K/uL (1.2-3.4); Lymphocytes % (auto) 10.6 %; Mean Corpuscular Hemoglobin 27.4 pg (25-34); Mean Corpuscular Hgb Conc 31.9 g/dL (32-36); Mean Corpuscular Volume 85.8 fL (80-100); Mean Platelet Volume 9.7 fL (7.4-10.4); Monocytes # (auto) 0.52 K/uL (0.11-0.59); Monocytes % (auto) 6.2 %; Neutrophils # (auto) 6.48 K/uL (1.4-6.5); Neutrophils % (auto) 77.2 %; Platelet Count 269 K/uL (130-400); RDW Coefficient of Variation 14.4 % (11.5-14.5); RDW Standard Deviation 45.1 fL (36.4-46.3); Red Blood Count 4.24 M/uL (4.2-5.4)
[2020-11-16 16:44] LABS: Alanine Aminotransferase 74 U/L (12-78); Albumin Level 2.1 gm/dl (3.4-5.0); Aspartate Aminotransferase 99 U/L (15-37); BUN Creatinine Ratio 14.6 (10-20); Blood Urea Nitrogen 19 mg/dl (7-18); Carbon Dioxide 24 mmol/L (21-32); Chloride 110 mmol/L (98-107); Creatinine Clr Calc Pharmacy 41.7 ml/min; Est GFR (African American) 46.8 ml/min; Est GFR (Non-African American) 40.4 ml/min; Glucose 80 mg/dl (70-99); Potassium 3.1 mmol/L (3.5-5.1); Sodium 140 mmol/L (136-145)
--- NOTE | 2020-11-16 16:45 | Emergency Department Note ---
ED Visit Note I did evaluate and examine this patient myself. I did guide management for the patient. I agree with the PA's assessment as discussed. Please see the PAs dictation for further details. I did independently review the x-rays and blood work. The patient has significant cellulitis to the left leg. There is no evidence of crepitus or fasciitis. She does not have an elevation of her white count. She is slightly anemic. She was treated with antibiotics and will be hospitalized for further care and evaluation. .
--- NOTE | 2020-11-16 16:52 | XRay Report ---
XR tibia fibula LT 2V CLINICAL HISTORY: L leg wound COMPARISON: Left knee radiographs December 25, 2009. FINDINGS: Alignment of left knee arthroplasty is anatomic. No acute fracture within the left tibia o r fibula is noted. There is no evidence for acute osteomyelitis. There is extensive vascular calcific ation. Talar dome is intact. IMPRESSION: 1. No acute fracture or evidence for acute osteomyelitis within the left tibia or fibula. 2. Intact total left knee arthroplasty. ACT 112: Negative or not required by law. Electronically signed by: Brady Hassan M.D. 11/16/2020 4:51 PM
--- NOTE | 2020-11-16 16:53 | XRay Report ---
XR femur LT 2V routine CLINICAL HISTORY: Left leg wound. COMPARISON: Left knee radiographs December 25, 2009. FINDINGS: Alignment of the left hip is anatomic. Left knee arthroplasty is noted. The distal aspect of the tibial component is demonstrated on the tibia and fibula radiographs which will be reported se parately. Visualized portions are intact. There is no left femoral fracture. Extensive vascular calci fication. There is no evidence for osteomyelitis within the left femur. Left leg soft tissue swelling is present. IMPRESSION: 1. No acute fracture within the left femur. No evidence for osteomyelitis. 2. Intact total left knee arthroplasty. 3. Left leg soft tissue swelling. ACT 112: Negative or not required by law. Electronically signed by: Brady Hassan M.D. 11/16/2020 4:52 PM
[2020-11-16 16:54] LABS: Albumin Globulin Ratio 0.5 (0.9-2); Alkaline Phosphatase 562 U/L (45-117); Bilirubin,Total 1.1 mg/dl (0.2-1); Total Protein 6.1 gm/dl (6.4-8.2); Troponin I < 0.015 ng/ml (0-0.045)
[2020-11-16] MEDS ORDERED: POTASSIUM CHLORIDE CRTAB 20 MEQ TABCR PO STA (17:01)
[2020-11-16] MEDS ORDERED: DEXTROSE 50% 50 ML SYRINGE IV PRN (20:08)
[2020-11-16] MEDS ORDERED: GLUCOSE 40% GEL 15 GM TUBE PO PRN (20:08)
[2020-11-16] MEDS ORDERED: VANCOMYCIN CONSULT ACTIVE PRN (20:08)
[2020-11-16] MEDS ORDERED: GLUCOSE 10 TABS/TUBE PO PRN (20:08)
[2020-11-16] MEDS ORDERED: GLUCAGON FOR INJ 1 MG VIAL SQ PRN (20:08)
[2020-11-16] MEDS ORDERED: CARBOHYDRATES FOR HYPOGLYCEMIA PO PRN (20:08)
--- NOTE | 2020-11-16 20:57 | Pharmacy Report ---
Pharmacy Abx Initial Consult - Date of Service November 16, 2020 - Pharmacy Dosing Scope Date of Consult: 11/16/20 Consultation requested by: Dr. Ying Pharmacy is consulted to initiate Vancomycin + Zosyn IV dosing therapy, order appropriate labs and adjust drug dose/frequency. - Subjective The patient is a 74 year old F admitted on 11/16/20 16:00. 74 year old female admitted with lesion on thigh, worsening. - Objective Height: 5 ft 5 in Weight: 84.8 kg Vital Signs (Past 12hrs): Vital Signs Temp Pulse Pulse Resp BP BP Pulse Ox 11/16/20 20:00 36.8 C 78 16 153/84 H 94 11/16/20 18:54 78 18 173/70 H 98 11/16/20 17:35 79 20 148/86 H 96 11/16/20 16:44 74 20 161/84 H 99 11/16/20 16:04 79 22 171/84 H 99 11/16/20 16:01 96 11/16/20 13:11 36.5 C 94 H 20 162/84 H 99 Lab Results (24hrs): Laboratory Tests (24 Hours) 11/16/20 11/16/20 11/16/20 16:01 16:01 16:01 WBC Neut # (Auto) ESR 57 H Creatinine 1.30 H Est Cr Clr Drug Dosing 41.7 C-Reactive Protein 21.80 H Procalcitonin 1.39 H 11/16/20 16:01 WBC 8.40 Neut # (Auto) 6.48 ESR Creatinine Est Cr Clr Drug Dosing C-Reactive Protein Procalcitonin Micro Results: 11/16/20 16:11 Aerobic Blood Culture - Pending Blood Anaerobic Blood Culture - Pending 11/16/20 16:01 Aerobic Blood Culture - Pending Blood Anaerobic Blood Culture - Pending - Risk Factors for Resistance * Antimicrobial use within the last 90 days - doxycycline - Assessment & Plan Assessment 74 year old F with cellulitis of left thigh, starting IV Vancomycin and Zosyn Superficial wound culture = pseudomonas, hidalgo sensitive, unsure if this is colonization versus actual infection Blood cultures pending Procal 1.39, afebrile, WBC normal Plan Vancomycin + Zosyn for treatment of cellulitis Vancomycin IV Patient meets criteria for vancomycin AUC dosing nomogram AUC/SONAL is the preferred PK/PD target for vancomycin Target AUC/SONAL = 400-600 AUC guided dosing is effective and associated with decreased risk of nephrotoxicity * Trough/Random level ordered for 11/18/20 Piperacillin/tazobactam * 4.5 g bolus administered over 30 minutes, then 3.375 g IV extended infusion every 8 hours for CrCl greater than 20 mL/min Pharmacy will continue to follow and will adjust dose/frequency as necessary. Thank you.
[2020-11-16] MEDS: PIPERACILLIN/TAZOBACTAM 3.375 GM in DEXTROSE 5% 100 ML IV SCH (21:49)
[2020-11-16] MEDS: FERROUS SULFATE 325 MG TAB PO SCH (22:00)
[2020-11-16] MEDS: HYDROXYCHLOROQUINE SULFATE 200 MG TAB PO SCH (22:00)
[2020-11-16] MEDS: INSULIN ASPART 100 UNITS/ML 3 ML PEN SC SCH (22:40)
[2020-11-17] MEDS: VANCOMYCIN HCL 750 MG in SODIUM CHLORIDE 0.9% 250 ML IV SCH ×2 (01:29→15:28)
[2020-11-17] MEDS: PIPERACILLIN/TAZOBACTAM 3.375 GM in DEXTROSE 5% 100 ML IV SCH ×3 (05:44→21:12)
--- NOTE | 2020-11-17 08:05 | Hospitalist Progress Note ---
Date of Service November 17, 2020 Assessment & Plan (1) Cellulitis of left thigh: Plan: Superficial wound culture demonstrating Pseudomonas unsure if this is colonization versus actual infection -No evidence of active necrotizing fasciitis at this time -Empiric Zosyn and vancomycin IV -Wound care consult Has been following with wound care Review of previous cultures with MRSA in past, resistant to tetracyclines Most recent cultures pseudomonas x 2 -- was told to start Doxycycline by wound care, Camila Barajas Required drainage/wound vac last year for R thigh and had vascular exposure requiring GSV closure with VenaSeal in the past Continues on Zosyn/Vanco (day 2 therapy) Labs --> replacement of electrolytes as needed. Monitor blood sugars while on abx with dextrose to promote wound healing. LFTs improving, no abd pain /n/v. Could be from repeat doxy use Consulted general surgery regarding pressure ulcer/necrotic/purulent drainage to thigh Will require debridement Plans for NPO after midnight and OR tomorrow with Dr. George IVF to begin at midnight NSS @ 100cc/hr Continue abx for now ID consultation placed given MDR organisms in the past Labs in AM Of note, patient on chronic prednisone and plaquenil for her RA. No s/sx adrenal insufficiency at this time. Would avoid steroids unless becomes hypotensive/symptomatic Consider hold plaquenil (2) Chronic venous insufficiency: Plan: Currently in wound dressings (3) Venous stasis of both lower extremities: Plan: Currently in wound dressing (4) Edema of left lower leg: Plan: Follow-up with wound care recommendations chronic lymphedema (5) Hypoalbuminemia: Plan: Chronic protein calorie malnutrition (6) CKD (chronic kidney disease) stage 3, GFR 30-59 ml/min: Plan: Cr back at baseline Avoid nephrotoxic agents, renally dose medications as appropriate Follow BMP (7) Hypokalemia: Plan: 60 M EQ K-Dur p.o. x1 in ED Resolved on AM labs Mag checked -- low at 1.5 and IV replacement ordered BMP/Mag in AM Plan: Continue IV abx NPO after midnight for debridement with Dr. George Discussed DVT proph with Dr. George. Ok to give dose of Lovenox SQ x 1 today and hold any further until after OR tomorrow Admission and Anticipated Discharge Date Admission Date: November 16, 2020 Subjective Patient evaluated this afternoon. Consulted general surgery this morning based on review of history and infections/abscess requiring I&D. Extremely upset about news about needing debridement. Discussed with Dr George and area with necrosis and pus and needs debridement and plans on taking to OR. From pressure ulcer due to lack of mobility. Patient upset about possibly needing a wound vac as she had one drained last year, had vessel exposed, needed Venaseal. Seen by wound clinic and stated "don't mention Camila Barajas's name". Does not want anything for pain, despite being painful to palpation on examination. Does not want anything for anxiety. No fever, chills, chest pain, shortness of breath, abdominal pain, nausea or vomiting at this time. Also discussed ID consultation while inpatient for IV abx at discharge given her MDR. Review of Systems Review of Systems: All systems reviewed & are unremarkable except as noted in HPI & below Physical Exam Constitutional: well developed, well nourished, + obese and comfortable; no acute distress (tearful, crying about needing debridement) Eyes: PERRL ENMT: external ear and nose normal, oropharynx normal Neck: trachea midline Respiratory: normal respiratory effort, lungs clear to auscultation Cardiovascular: RRR, no murmur, no edema Gastrointestinal (Abdomen): normal bowel sounds, soft, nontender, no hepatosplenomegaly Musculoskeletal: Head/Neck/Chest: normocephalic and head atraumatic Extremities: + chronic stasis changes (bilaterally) Skin: + lesion (left medial thigh with gangrenous tissue and puruklent drainage; 8cm) Lesion to medial R thigh, mid femur, necrotic/gangrenous tissue with purulent drainage noted. approximately 8cm in diameter at greatest width tender to palpation purulent drainage on dressing Psychiatric: Orientation: alert and oriented x 3 Affect: + tearful affect Results & Data Results & Data ([facility]) Vital Signs (Past 12 Hours) Vital Signs Temp Pulse Resp BP Pulse Ox 11/17/20 07:39 36.6 C 81 16 128/72 97 11/17/20 00:52 36.8 C 85 16 151/68 H 93 Laboratory Results 11/17/20 11/17/20 11/17/20 Range/Units 12:21 07:02 07:02 WBC (4.8-10.8) K/uL RBC (4.2-5.4) M/uL Hgb (12.0-16.0) g/dL Hct (37-47) % MCV (80-100) fL MCH (25-34) pg MCHC (32-36) g/dL RDW Std Deviation (36.4-46.3) fL RDW Coeff of Saadia (11.5-14.5) % Plt Count (130-400) K/uL MPV (7.4-10.4) fL Immature Gran % (Auto) % Neut % (Auto) % Lymph % (Auto) % Gallia % (Auto) % Eos % (Auto) % Baso % (Auto) % Neut # (Auto) (1.4-6.5) K/uL Lymph # (Auto) (1.2-3.4) K/uL Gallia # (Auto) (0.11-0.59) K/uL Eos # (Auto) (0-0.5) K/uL Baso # (Auto) (0-0.2) K/uL Immature Gran # (Auto) (0.00-0.02) K/uL ESR (0-30) mm/hr Sodium 145 (136-145) mmol/L Potassium 3.6 D (3.5-5.1) mmol/L Chloride 116 H (98-107) mmol/L Carbon Dioxide 21 (21-32) mmol/L Anion Gap 8.0 (3-11) BUN 16 (7-18) mg/dl Creatinine 1.17 (0.6-1.2) mg/dl Est Cr Clr Drug Dosing 45.3 ml/min Est GFR ( Amer) 53.2 ml/min Est GFR (Non-Af Amer) 45.9 ml/min BUN/Creatinine Ratio 13.5 (10-20) Glucose 104 H (70-99) mg/dl POC Glucose 122 H (70-99) mg/dl Estimat Average Glucose 108 mg/dl Hemoglobin A1c 5.4 (4.5-5.6) % Lactate (0.4-2.0) mmol/L Calcium 8.5 (8.5-10.1) mg/dl Magnesium 1.5 L (1.8-2.4) mg/dl Total Bilirubin 0.9 (0.2-1) mg/dl Direct Bilirubin 0.5 H (0-0.2) mg/dl AST 128 H (15-37) U/L ALT 78 (12-78) U/L Alkaline Phosphatase 576 H (45-117) U/L Troponin I (0-0.045) ng/ml C-Reactive Protein (0-0.29) mg/dl Total Protein 4.8 L D (6.4-8.2) gm/dl Albumin 1.6 L (3.4-5.0) gm/dl Globulin (2.5-4.0) gm/dl Albumin/Globulin Ratio (0.9-2) Procalcitonin (0-0.5) ng/ml COVID-19 Eval Order SARS-CoV-2 (PCR) (Negative) 11/17/20 11/16/20 11/16/20 Range/Units 07:02 16:11 16:01 WBC 6.22 (4.8-10.8) K/uL RBC 3.84 L (4.2-5.4) M/uL Hgb 10.5 L (12.0-16.0) g/dL Hct 33.2 L (37-47) % MCV 86.5 (80-100) fL MCH 27.3 (25-34) pg MCHC 31.6 L (32-36) g/dL RDW Std Deviation 45.4 (36.4-46.3) fL RDW Coeff of Saadia 14.4 (11.5-14.5) % Plt Count 254 (130-400) K/uL MPV 9.5 (7.4-10.4) fL Immature Gran % (Auto) 0.5 % Neut % (Auto) 80.6 % Lymph % (Auto) 7.6 % Gallia % (Auto) 4.3 % Eos % (Auto) 6.8 % Baso % (Auto) 0.2 % Neut # (Auto) 5.02 (1.4-6.5) K/uL Lymph # (Auto) 0.47 L (1.2-3.4) K/uL Gallia # (Auto) 0.27 (0.11-0.59) K/uL Eos # (Auto) 0.42 (0-0.5) K/uL Baso # (Auto) 0.01 (0-0.2) K/uL Immature Gran # (Auto) 0.03 H (0.00-0.02) K/uL ESR (0-30) mm/hr Sodium (136-145) mmol/L Potassium (3.5-5.1) mmol/L Chloride (98-107) mmol/L Carbon Dioxide (21-32) mmol/L Anion Gap (3-11) BUN (7-18) mg/dl Creatinine (0.6-1.2) mg/dl Est Cr Clr Drug Dosing ml/min Est GFR ( Amer) ml/min Est GFR (Non-Af Amer) ml/min BUN/Creatinine Ratio (10-20) Glucose (70-99) mg/dl POC Glucose (70-99) mg/dl Estimat Average Glucose mg/dl Hemoglobin A1c (4.5-5.6) % Lactate 1.1 (0.4-2.0) mmol/L Calcium (8.5-10.1) mg/dl Magnesium (1.8-2.4) mg/dl Total Bilirubin (0.2-1) mg/dl Direct Bilirubin (0-0.2) mg/dl AST (15-37) U/L ALT (12-78) U/L Alkaline Phosphatase (45-117) U/L Troponin I (0-0.045) ng/ml C-Reactive Protein (0-0.29) mg/dl Total Protein (6.4-8.2) gm/dl Albumin (3.4-5.0) gm/dl Globulin (2.5-4.0) gm/dl Albumin/Globulin Ratio (0.9-2) Procalcitonin 1.39 H (0-0.5) ng/ml COVID-19 Eval Order SARS-CoV-2 (PCR) (Negative) 11/16/20 11/16/20 11/16/20 Range/Units 16:01 16:01 16:01 WBC 8.40 (4.8-10.8) K/uL RBC 4.24 (4.2-5.4) M/uL Hgb 11.6 L (12.0-16.0) g/dL Hct 36.4 L (37-47) % MCV 85.8 (80-100) fL MCH 27.4 (25-34) pg MCHC 31.9 L (32-36) g/dL RDW Std Deviation 45.1 (36.4-46.3) fL RDW Coeff of Saadia 14.4 (11.5-14.5) % Plt Count 269 (130-400) K/uL MPV 9.7 (7.4-10.4) fL Immature Gran % (Auto) 0.8 % Neut % (Auto) 77.2 % Lymph % (Auto) 10.6 % Gallia % (Auto) 6.2 % Eos % (Auto) 5.1 % Baso % (Auto) 0.1 % Neut # (Auto) 6.48 (1.4-6.5) K/uL Lymph # (Auto) 0.89 L (1.2-3.4) K/uL Gallia # (Auto) 0.52 (0.11-0.59) K/uL Eos # (Auto) 0.43 (0-0.5) K/uL Baso # (Auto) 0.01 (0-0.2) K/uL Immature Gran # (Auto) 0.07 H (0.00-0.02) K/uL ESR 57 H (0-30) mm/hr Sodium 140 (136-145) mmol/L Potassium 3.1 L (3.5-5.1) mmol/L Chloride 110 H (98-107) mmol/L Carbon Dioxide 24 (21-32) mmol/L Anion Gap 6.0 (3-11) BUN 19 H (7-18) mg/dl Creatinine 1.30 H (0.6-1.2) mg/dl Est Cr Clr Drug Dosing 41.7 ml/min Est GFR ( Amer) 46.8 ml/min Est GFR (Non-Af Amer) 40.4 ml/min BUN/Creatinine Ratio 14.6 (10-20) Glucose 80 (70-99) mg/dl POC Glucose (70-99) mg/dl Estimat Average Glucose mg/dl Hemoglobin A1c (4.5-5.6) % Lactate (0.4-2.0) mmol/L Calcium 9.0 (8.5-10.1) mg/dl Magnesium 2.0 (1.8-2.4) mg/dl Total Bilirubin 1.1 H (0.2-1) mg/dl Direct Bilirubin (0-0.2) mg/dl AST 99 H (15-37) U/L ALT 74 (12-78) U/L Alkaline Phosphatase 562 H (45-117) U/L Troponin I < 0.015 (0-0.045) ng/ml C-Reactive Protein 21.80 H (0-0.29) mg/dl Total Protein 6.1 L (6.4-8.2) gm/dl Albumin 2.1 L (3.4-5.0) gm/dl Globulin 4.0 (2.5-4.0) gm/dl Albumin/Globulin Ratio 0.5 L (0.9-2) Procalcitonin (0-0.5) ng/ml COVID-19 Eval Order SARS-CoV-2 (PCR) (Negative) 11/16/20 11/16/20 Range/Units 15:35 15:35 WBC (4.8-10.8) K/uL RBC (4.2-5.4) M/uL Hgb (12.0-16.0) g/dL Hct (37-47) % MCV (80-100) fL MCH (25-34) pg MCHC (32-36) g/dL RDW Std Deviation (36.4-46.3) fL RDW Coeff of Saadia (11.5-14.5) % Plt Count (130-400) K/uL MPV (7.4-10.4) fL Immature Gran % (Auto) % Neut % (Auto) % Lymph % (Auto) % Gallia % (Auto) % Eos % (Auto) % Baso % (Auto) % Neut # (Auto) (1.4-6.5) K/uL Lymph # (Auto) (1.2-3.4) K/uL Gallia # (Auto) (0.11-0.59) K/uL Eos # (Auto) (0-0.5) K/uL Baso # (Auto) (0-0.2) K/uL Immature Gran # (Auto) (0.00-0.02) K/uL ESR (0-30) mm/hr Sodium (136-145) mmol/L Potassium (3.5-5.1) mmol/L Chloride (98-107) mmol/L Carbon Dioxide (21-32) mmol/L Anion Gap (3-11) BUN (7-18) mg/dl Creatinine (0.6-1.2) mg/dl Est Cr Clr Drug Dosing ml/min Est GFR ( Amer) ml/min Est GFR (Non-Af Amer) ml/min BUN/Creatinine Ratio (10-20) Glucose (70-99) mg/dl POC Glucose (70-99) mg/dl Estimat Average Glucose mg/dl Hemoglobin A1c (4.5-5.6) % Lactate (0.4-2.0) mmol/L Calcium (8.5-10.1) mg/dl Magnesium (1.8-2.4) mg/dl Total Bilirubin (0.2-1) mg/dl Direct Bilirubin (0-0.2) mg/dl AST (15-37) U/L ALT (12-78) U/L Alkaline Phosphatase (45-117) U/L Troponin I (0-0.045) ng/ml C-Reactive Protein (0-0.29) mg/dl Total Protein (6.4-8.2) gm/dl Albumin (3.4-5.0) gm/dl Globulin (2.5-4.0) gm/dl Albumin/Globulin Ratio (0.9-2) Procalcitonin (0-0.5) ng/ml COVID-19 Eval Order Covid19 at [facility] SARS-CoV-2 (PCR) NEGATIVE (Negative) Diagnostic Findings Femur X-Ray 11/16/20 16:00 XR femur LT 2V routine CLINICAL HISTORY: Left leg wound. COMPARISON: Left knee radiographs December 25, 2009. FINDINGS: Alignment of the left hip is anatomic. Left knee arthroplasty is noted. The distal aspect of the tibial component is demonstrated on the tibia and fibula radiographs which will be reported separately. Visualized portions are intact. There is no left femoral fracture. Extensive vascular calcification. There is no evidence for osteomyelitis within the left femur. Left leg soft tissue swelling is present. IMPRESSION: 1. No acute fracture within the left femur. No evidence for osteomyelitis. 2. Intact total left knee arthroplasty. 3. Left leg soft tissue swelling. ACT 112: Negative or not required by law. Electronically signed by: Brady Hassan M.D. 11/16/2020 4:52 PM Tibia/Fibula X-Ray 11/16/20 16:00 XR tibia fibula LT 2V CLINICAL HISTORY: L leg wound COMPARISON: Left knee radiographs December 25, 2009. FINDINGS: Alignment of left knee arthroplasty is anatomic. No acute fracture within the left tibia or fibula is noted. There is no evidence for acute osteomyelitis. There is extensive vascular calcification. Talar dome is intact. IMPRESSION: 1. No acute fracture or evidence for acute osteomyelitis within the left tibia or fibula. 2. Intact total left knee arthroplasty. ACT 112: Negative or not required by law. Electronically signed by: Brady Hassan M.D. 11/16/2020 4:51 PM PG Care Time/CCT Total # of Minutes Spent Total Time Spent with Patient: Total time spent is greater than 50% in coordination of care (as documented) at patient's floor/unit and/or counseling patient: Coding Level of Care Code 25656 Subseq Hosp Care Lvl 3 Diagnoses Cellulitis of left thigh L03.116 Chronic venous insufficiency I87.2 Venous stasis of both lower extremities I87.8 Edema of left lower leg R60.0 Hypoalbuminemia E88.09 CKD (chronic kidney disease) stage 3, GFR 30-59 ml/min N18.3 Hypokalemia E87.6
[2020-11-17 08:18] LABS: Basophils # (auto) 0.01 K/uL (0-0.2); Basophils % (auto) 0.2 %; Eosinophils # (auto) 0.42 K/uL (0-0.5); Eosinophils % (auto) 6.8 %; Hematocrit (blood only) 33.2 % (37-47); Hemoglobin 10.5 g/dL (12.0-16.0); Immature Granulocytes # (auto) 0.03 K/uL (0.00-0.02); Immature Granulocytes % (auto) 0.5 %; Lymphocytes # (auto) 0.47 K/uL (1.2-3.4); Lymphocytes % (auto) 7.6 %; Mean Corpuscular Hemoglobin 27.3 pg (25-34); Mean Corpuscular Hgb Conc 31.6 g/dL (32-36); Mean Corpuscular Volume 86.5 fL (80-100); Mean Platelet Volume 9.5 fL (7.4-10.4); Monocytes # (auto) 0.27 K/uL (0.11-0.59); Monocytes % (auto) 4.3 %; Neutrophils # (auto) 5.02 K/uL (1.4-6.5); Neutrophils % (auto) 80.6 %; Platelet Count 254 K/uL (130-400); RDW Coefficient of Variation 14.4 % (11.5-14.5); RDW Standard Deviation 45.4 fL (36.4-46.3); Red Blood Count 3.84 M/uL (4.2-5.4); White Blood Count 6.22 K/uL (4.8-10.8)
[2020-11-17 08:42] LABS: Estimated Average Glucose 108 mg/dl; Hemoglobin A1C 5.4 % (4.5-5.6)
[2020-11-17 08:56] LABS: Albumin Level 1.6 gm/dl (3.4-5.0); BUN Creatinine Ratio 13.5 (10-20); Bilirubin Direct 0.5 mg/dl (0-0.2); Bilirubin,Total 0.9 mg/dl (0.2-1); Calcium 8.5 mg/dl (8.5-10.1); Creatinine Clr Calc Pharmacy 45.3 ml/min; Est GFR (African American) 53.2 ml/min; Est GFR (Non-African American) 45.9 ml/min; Magnesium 1.5 mg/dl (1.8-2.4); Potassium 3.6 mmol/L (3.5-5.1); Total Protein 4.8 gm/dl (6.4-8.2)
[2020-11-17] MEDS: INSULIN ASPART 100 UNITS/ML 3 ML PEN SC SCH ×4 (09:03→21:39)
[2020-11-17] MEDS: FOLIC ACID 1 MG TAB PO SCH (09:07)
[2020-11-17] MEDS: PRAVASTATIN SOD 20 MG TAB PO SCH (09:07)
[2020-11-17] MEDS: FERROUS SULFATE 325 MG TAB PO SCH ×3 (09:07→20:12)
[2020-11-17] MEDS: LEFLUNOMIDE 10 MG TAB PO SCH (09:07)
[2020-11-17] MEDS: ASPIRIN 81 MG ECTAB PO SCH (09:07)
[2020-11-17] MEDS: PANTOprazole 40 MG TAB PO SCH (09:07)
[2020-11-17] MEDS: predniSONE 2.5 MG TAB PO SCH (09:07)
[2020-11-17] MEDS: ZINC SULFATE 220 MG CAPSULE PO SCH (09:07)
[2020-11-17] MEDS: MAGNESIUM SULFATE / D5W 1 GM/100 ML BAG IV SCH ×3 (10:13→16:19)
--- NOTE | 2020-11-17 12:32 | Surgery Consultation ---
Date of Consultation November 17, 2020 Assessment & Plan (1) Abscess of left thigh: will need debridement and I&D of left thigh abscess with gangrenous skin to OR in AM con't IV abx agree with wound nurse consult Present on Admission?: Yes (2) Ulcer with gangrene, limited to breakdown of skin: History of Present Illness Attending Physician: Maulik Ramires MD History of Present Illness This is a 74-year-old female that presented to the ED with complaints of upper thigh left leg wound. She is seen in wound clinic for lower calf venous wounds and has bilateral UNNA boots. She denies any fevers, chills, nausea or vomiting. There has been drainage and bad smell. Allergies Allergy/AdvReac Type Severity Reaction Status Date / Time cefadroxil Allergy Intermediate Rash Verified 11/16/20 16:34 cefepime Allergy Unknown Unknown Verified 11/16/20 16:34 cephalexin [From Keflex] Allergy Unknown Unknown Verified 11/16/20 16:34 Sulfa (Sulfonamide Allergy Unknown RASH Verified 11/16/20 16:34 Antibiotics) amoxicillin [From Augmentin] Allergy Rash Verified 11/16/20 16:36 clavulanic acid Allergy Rash Verified 11/16/20 16:36 [From Augmentin] oxycodone AdvReac Unknown NAUSEA Verified 11/16/20 16:34 Home Medications Medication Instructions Recorded Confirmed Type hydroxychloroquine 200 mg tablet 400 mg PO DAILY 08/06/18 11/16/20 History aspirin 81 mg tablet,delayed 81 mg PO DAILY #30 tab 10/29/19 11/16/20 Rx release pravastatin 20 mg tablet 20 mg PO DAILY 03/09/20 11/16/20 History nystatin 100,000 unit/gram topical 1 applic TOPICAL DAILY #30 g 05/25/20 11/16/20 Rx powder leflunomide 10 mg tablet 10 mg PO DAILY 07/10/20 11/16/20 History desoximetasone 0.25 % topical 1 applic TOPICAL DAILY PRN #100 g 08/20/20 11/16/20 Rx ointment doxycycline hyclate 100 mg tablet 100 mg PO bid 14 Days #28 tab 11/13/20 11/16/20 Rx gentamicin 0.1 % topical ointment 1 applic TOPICAL DAILY 14 Days #30 11/16/20 11/16/20 Rx g prednisone 5 mg tablet 5 - 7.5 mg PO DAILY 11/16/20 11/16/20 History Patient History Medical History (Updated 11/17/20 @ 12:34 by Jay George MD) Abscess of left thigh Anemia Bacterial infection due to Serratia Cancer MELANOMA Cellulitis BILATERAL LEGS AND FEET, INPATIENT [facility] (JULY 2018) Chronic steroid use CKD (chronic kidney disease) stage 3, GFR 30-59 ml/min Folate deficiency Fracture of sacrum BILATERAL. ~2016, PHYSICAL THERAPY. USES WALKER HLD (hyperlipidemia) HTN (hypertension) No blood products PER PATIENT REQUEST Obesity Pneumonia AUGUST 2017 Pressure ulcer of upper thigh Rheumatoid arthritis Septic shock Ulcer with gangrene, limited to breakdown of skin Surgical History History of cataract surgery BILATERAL History of colonoscopy History of surgical removal of skin lesion BACK History of total hip replacement RIGHT S/P debridement (11/29/19) Right Thigh wound debridement, sharp, greater than [address] 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 Feels Safe at Home: Yes Assistive Devices: Glasses, Special Shoe and Walker Review of Systems Constitutional: + fatigue; no fever, no chills and no anorexia Respiratory: no cough and no dyspnea Cardiovascular: no chest pain Gastrointestinal: no abdominal pain, no nausea and no vomiting Genitourinary: no dysuria Musculoskeletal: no back pain Integumentary: + non-healing lesions venous stasis dermatitis with B UNNA boots Neurologic: no localized weakness and no generalized weakness Psychiatric: + anxiety Endocrine: no fatigue Hematologic / Lymphatic: no easy bleeding and no easy bruising Physical Exam Constitutional: well developed, well nourished and + obese Eyes: PERRL ENMT: external ear and nose normal, oropharynx normal Neck: trachea midline Respiratory: normal respiratory effort, lungs clear to auscultation Cardiovascular: RRR, no murmur, no edema Gastrointestinal (Abdomen): normal bowel sounds, soft, nontender, no hepatosplenomegaly Musculoskeletal: Head/Neck/Chest: normocephalic and head atraumatic Extremities: + chronic stasis changes and + lower leg abnormality (venous stasis) Bilateral Skin: + lesion (left medial thigh with gangrenous tissue and puruklent drainage; 8cm) Psychiatric: Orientation: alert and oriented x 3 Affect: + tearful affect Results & Data ([facility]) Vital Signs (Past 12 Hours) Vital Signs Temp Pulse Resp BP Pulse Ox 11/17/20 07:39 36.6 C 81 16 128/72 97 11/17/20 00:52 36.8 C 85 16 151/68 H 93 Diagnostic Findings LEFT LOWER EXTREMITY VENOUS DOPPLER CLINICAL HISTORY: R60.0 - Localized edema COMPARISON STUDY: Bilateral lower extremity venous Doppler ultrasound October 19, 2019. TECHNIQUE: Sonography of the deep venous system of the left lower extremity was performed. Compression and augmentation were evaluated. FINDINGS: This exam is compromised by suboptimal penetration. The left common femoral, superficial femoral and popliteal veins were compressible although portions of the superficial femoral vein were obscured on the exam. Augmentation was normal. Flow was shown within the deep calf vessels. Note is made of a 6.2 x 1.7 x 3.8 cm complex fluid collection within the mid to distal left thigh at site of injury. IMPRESSION: 1. Technically difficult exam but no evidence of deep venous thrombus within the left lower extremity. 2. 6.2 x 1.7 x 3.8 cm complex fluid collection of the mid to distal left thigh site of injury. This favors a hematoma.
[2020-11-17] MEDS ORDERED: ENOXAPARIN INJ 40 MG/0.4 ML SYR SQ ONE (13:15)
[2020-11-17] MEDS ORDERED: ACETAMINOPHEN 325 MG TAB PO PRN (15:24)
[2020-11-17] MEDS: NYSTATIN POWDER 15GM BTL EXT SCH (20:12)
[2020-11-17] MEDS: HYDROXYCHLOROQUINE SULFATE 200 MG TAB PO SCH (20:12)
[2020-11-17] MEDS ORDERED: SODIUM CHLORIDE 0.9% 1000ML 1,000 ML IV SCH (23:59)
[2020-11-18] MEDS: VANCOMYCIN HCL 750 MG in SODIUM CHLORIDE 0.9% 250 ML IV SCH ×2 (01:30→14:05)
[2020-11-18] MEDS: PIPERACILLIN/TAZOBACTAM 3.375 GM in DEXTROSE 5% 100 ML IV SCH ×3 (04:57→20:30)
[2020-11-18] MEDS ORDERED: Nursing to Pharmacy Communication SCH ×2 (05:00→19:45)
[2020-11-18] MEDS: INSULIN ASPART 100 UNITS/ML 3 ML PEN SC SCH ×4 (06:33→21:48)
[2020-11-18 06:54] LABS: Basophils # (auto) 0.01 K/uL (0-0.2); Basophils % (auto) 0.2 %; Eosinophils # (auto) 0.51 K/uL (0-0.5); Eosinophils % (auto) 7.9 %; Hematocrit (blood only) 34.3 % (37-47); Hemoglobin 10.7 g/dL (12.0-16.0); Immature Granulocytes # (auto) 0.07 K/uL (0.00-0.02); Immature Granulocytes % (auto) 1.1 %; Lymphocytes # (auto) 0.86 K/uL (1.2-3.4); Lymphocytes % (auto) 13.3 %; Mean Corpuscular Hgb Conc 31.2 g/dL (32-36); Mean Corpuscular Volume 86.4 fL (80-100); Mean Platelet Volume 9.5 fL (7.4-10.4); Monocytes # (auto) 0.38 K/uL (0.11-0.59); Monocytes % (auto) 5.9 %; Neutrophils # (auto) 4.62 K/uL (1.4-6.5); Neutrophils % (auto) 71.6 %; Platelet Count 266 K/uL (130-400); RDW Coefficient of Variation 14.3 % (11.5-14.5); RDW Standard Deviation 45.6 fL (36.4-46.3); Red Blood Count 3.97 M/uL (4.2-5.4); White Blood Count 6.45 K/uL (4.8-10.8)
[2020-11-18 07:20] LABS: Albumin Level 1.7 gm/dl (3.4-5.0); BUN Creatinine Ratio 12.6 (10-20); Bilirubin Direct 0.3 mg/dl (0-0.2); C Reactive Protein 8.72 mg/dl (0-0.29); Calcium 8.4 mg/dl (8.5-10.1); Creatinine Clr Calc Pharmacy 43.5 ml/min; Est GFR (African American) 49.1 ml/min; Est GFR (Non-African American) 42.3 ml/min; Magnesium 2.2 mg/dl (1.8-2.4); Potassium 3.5 mmol/L (3.5-5.1)
[2020-11-18 07:23] LABS: Bilirubin,Total 0.7 mg/dl (0.2-1); Total Protein 4.9 gm/dl (6.4-8.2)
[2020-11-18] MEDS: PRAVASTATIN SOD 20 MG TAB PO SCH (08:21)
[2020-11-18] MEDS: PANTOprazole 40 MG TAB PO SCH (08:21)
[2020-11-18] MEDS: predniSONE 2.5 MG TAB PO SCH (08:21)
[2020-11-18] MEDS: LEFLUNOMIDE 10 MG TAB PO SCH (08:21)
[2020-11-18] MEDS: ZINC SULFATE 220 MG CAPSULE PO SCH (08:22)
[2020-11-18] MEDS: FERROUS SULFATE 325 MG TAB PO SCH ×3 (08:22→17:39)
[2020-11-18] MEDS: ASPIRIN 81 MG ECTAB PO SCH (08:22)
[2020-11-18] MEDS: FOLIC ACID 1 MG TAB PO SCH (08:22)
[2020-11-18] MEDS ORDERED: SODIUM CHLORIDE 0.45 % 1,000 ML IV SCH (09:00)
[2020-11-18] MEDS ORDERED: fentaNYL citrate 100 MCG/2 ML VIAL ONE (09:04)
[2020-11-18] MEDS ORDERED: MIDAZOLAM HCL 1 MG/ML 2ML VIAL ONE (09:04)
[2020-11-18] MEDS ORDERED: ONDANSETRON INJ 2 MG/ML 2 ML VIAL ONE (09:05)
[2020-11-18] MEDS ORDERED: PROPOFOL IV EMULSION 10 MG/ML 20 ML VIAL IV ONE ×2 (09:05→10:31)
--- NOTE | 2020-11-18 09:51 | Electrocardiogram Report ---
Test Reason : Blood Pressure : / mmHG Vent. Rate : 074 BPM Atrial Rate : 074 BPM P-R Int : 148 ms QRS Dur : 112 ms QT Int : 450 ms P-R-T Axes : 037 -33 034 degrees QTc Int : 499 ms Poor data quality, interpretation may be adversely affected Normal sinus rhythm Left axis deviation Abnormal ECG When compared with ECG of 25-NOV-2019 15:59, No significant change Confirmed by Margarito Castañeda ([id number]) on 11/18/2020 9:51:17 AM Referred By: REFERRED SELF Confirmed By:Margarito Castañeda
--- NOTE | 2020-11-18 10:04 | History & Physical Bridge Note ---
Date of Service November 18, 2020 History & Physical Bridge Note I have examined the patient, reviewed the History & Physical and in the interval since the performance of the History & Physical I have noted the following changes of clinical significance: no changes noted
[2020-11-18] MEDS ORDERED: PROMETHAZINE HCL 12.5 MG in SODIUM CHLORIDE 0.9% 50 ML IV PRN (10:08)
[2020-11-18] MEDS ORDERED: fentaNYL citrate 100 MCG/2 ML VIAL IV PRN (10:08)
[2020-11-18] MEDS ORDERED: NALOXONE HCL 0.4 MG/1 ML VIAL/CARP IV PRN (10:08)
[2020-11-18] MEDS ORDERED: ePHEDrine sulfate 50 MG/ML AMP IV PRN (10:08)
[2020-11-18] MEDS ORDERED: LABETALOL HCL IV 5 MG/ML 20ML IV PRN (10:08)
[2020-11-18] MEDS ORDERED: ONDANSETRON INJ 2 MG/ML 2 ML VIAL IV PRN (10:08)
[2020-11-18] MEDS ORDERED: FLUMAZENIL 0.1 MG/1 ML 10 ML VIAL IV PRN (10:08)
[2020-11-18] MEDS ORDERED: HYDROmorphone INJ 1 MG/ML SYRINGE IV PRN (10:08)
[2020-11-18] MEDS ORDERED: ATROPINE SULFATE 0.1 MG/ML 10ML SYR IV PRN (10:08)
--- NOTE | 2020-11-18 10:08 | Anesthesiology Consultation ---
Date of Service November 18, 2020 Assessment & Plan Chart Review Chart Review: Acceptable Risk for Surgery and Patient NOT seen in Pre Admission Testing Consults Requested none ASA ASA4 Proposed Anesthesia Anesthesia Type: General and MAC Risk / Benefits Reviewed With: PT / POA / Parent / Guardian, Accepts Plan and Informed Consent Obtained Additional Comments: covid neg. History Surgery Operation Date: 11/18/20 12:30 Proposed Procedures p Incision and Drainage with Debridement of Left Thigh Abscess - Jay George MD Height/Weight Height: 5 ft 5 in Weight: 88.9 kg Allergies Allergy/AdvReac Type Severity Reaction Status Date / Time cefadroxil Allergy Intermediate Rash Verified 11/16/20 16:34 cefepime Allergy Unknown Unknown Verified 11/16/20 16:34 cephalexin [From Keflex] Allergy Unknown Unknown Verified 11/16/20 16:34 Sulfa (Sulfonamide Allergy Unknown RASH Verified 11/16/20 16:34 Antibiotics) amoxicillin [From Augmentin] Allergy Rash Verified 11/16/20 16:36 clavulanic acid Allergy Rash Verified 11/16/20 16:36 [From Augmentin] oxycodone AdvReac Unknown NAUSEA Verified 11/16/20 16:34 Medications Home Medications Medication Instructions Recorded Confirmed Last Taken hydroxychloroquine 200 mg tablet 400 mg PO DAILY 08/06/18 11/16/20 10/20/18 aspirin 81 mg tablet,delayed 81 mg PO DAILY #30 tab 10/29/19 11/16/20 Unknown release pravastatin 20 mg tablet 20 mg PO DAILY 03/09/20 11/16/20 Unknown nystatin 100,000 unit/gram topical 1 applic TOPICAL DAILY #30 g 05/25/20 11/16/20 Unknown powder leflunomide 10 mg tablet 10 mg PO DAILY 07/10/20 11/16/20 Unknown desoximetasone 0.25 % topical 1 applic TOPICAL DAILY PRN #100 g 08/20/20 11/16/20 Unknown ointment doxycycline hyclate 100 mg tablet 100 mg PO bid 14 Days #28 tab 11/13/20 11/16/20 11/16/20 09:00 gentamicin 0.1 % topical ointment 1 applic TOPICAL DAILY 14 Days #30 11/16/20 11/16/20 Unknown g prednisone 5 mg tablet 5 - 7.5 mg PO DAILY 11/16/20 11/16/20 Unknown Active Medications Generic Name Dose Route Start Last Admin Trade Name Evelyn PRN Reason Stop Dose Admin Aspirin 81 mg 11/17/20 09:00 11/18/20 08:22 Aspirin 81 Mg Ectab PO 12/17/20 08:59 81 mg DAILY FRANSISCO Administration Ferrous Sulfate 325 mg 11/16/20 20:08 11/18/20 08:22 Ferrous Sulfate 325 Mg Tab PO 12/16/20 20:07 325 mg TIDM FRANSISCO Administration Folic Acid 1 mg 11/17/20 09:00 11/18/20 08:22 Folic Acid 1 Mg Tab PO 12/17/20 08:59 1 mg QAM FRANSISCO Administration Hydroxychloroquine Sulfate 400 mg 11/16/20 21:00 11/17/20 20:12 Hydroxychloroquine Sulfate 200 Mg Tab PO 12/16/20 20:59 400 mg HS FRANSISCO Administration Piperacillin Sod/Tazobactam 115 mls @ 28.75 mls/hr 11/16/20 21:00 11/18/20 04:57 Sod 3.375 gm/ Dextrose IV 11/23/20 20:59 28.8 mls/hr Q8H FRANSISCO Administration Protocol Vancomycin HCl 750 mg/ Sodium 265 mls @ 200 mls/hr 11/17/20 02:00 11/18/20 02:55 Chloride IV 11/24/20 01:59 Infused Q12H FRANSISCO Infusion Insulin Aspart 0 units 11/18/20 06:00 11/18/20 06:33 Insulin Aspart 100 Units/Ml 3 Ml Pen SC 12/18/20 05:59 Not Given Q6 FRANSISCO Leflunomide 10 mg 11/17/20 09:00 11/18/20 08:21 Leflunomide 10 Mg Tab PO 12/17/20 08:59 10 mg DAILY FRANSISCO Administration Miscellaneous 1 ea 11/17/20 00:00 11/17/20 23:49 Gentamicin 0.1 % Ointment -- Order Awaiting Action N/A 12/17/20 00:00 Not Given QS FRANSISCO Nystatin 1 appln 11/17/20 18:00 11/17/20 20:12 Nystatin Powder 15gm Btl EXT 12/17/20 17:59 1 appln DAILY FRANSISCO Administration Pantoprazole Sodium 40 mg 11/17/20 09:00 11/18/20 08:21 Pantoprazole 40 Mg Tab PO 12/17/20 08:59 40 mg DAILY FRANSISCO Administration Pravastatin Sodium 20 mg 11/17/20 09:00 11/18/20 08:21 Pravastatin Sod 20 Mg Tab PO 12/17/20 08:59 20 mg DAILY FRANSISCO Administration Prednisone 2.5 mg 11/17/20 09:00 11/18/20 08:21 Prednisone 2.5 Mg Tab PO 12/17/20 08:59 2.5 mg DAILY FRANSISCO Administration Zinc Sulfate 220 mg 11/17/20 09:00 11/18/20 08:22 Zinc Sulfate 220 Mg Capsule PO 12/17/20 08:59 220 mg DAILY FRANSISCO Administration NPO Date Last Intake of Fluids: 11/18/20 Time Last Intake of Fluids: 08:00 Date Last Intake of Solids: 11/17/20 Time Last Intake of Solids: 17:30 Past Medical History Medical History Abscess of left thigh Anemia Bacterial infection due to Serratia Cancer MELANOMA Cellulitis BILATERAL LEGS AND FEET, INPATIENT [facility] (JULY 2018) Chronic steroid use CKD (chronic kidney disease) stage 3, GFR 30-59 ml/min Folate deficiency Fracture of sacrum BILATERAL. ~2016, PHYSICAL THERAPY. USES WALKER HLD (hyperlipidemia) HTN (hypertension) No blood products PER PATIENT REQUEST Obesity Pneumonia AUGUST 2017 Pressure ulcer of upper thigh Rheumatoid arthritis Septic shock Ulcer with gangrene, limited to breakdown of skin Exercise / Class Metabolic Activity III < 4 Walking/Shop/Light housework Past Family History Family History Father Non Hodgkin's lymphoma Mother Coronary heart disease Past Surgical History Surgical History History of cataract surgery BILATERAL History of colonoscopy History of surgical removal of skin lesion BACK History of total hip replacement RIGHT S/P debridement (11/29/19) Right Thigh wound debridement, sharp, greater than [address] Peter 11/29/2019 S/P revision of total hip RIGHT S/P JUAN-BSO Total knee replacement status BILATERAL Past Anesthesia History No Hx of Anesthesia Complications and No Family Hx of Anesthesia Complications History of PONV No Hx of PONV and No Hx of Motion Sickness Social History Smoking Status: Never smoker Hx Alcohol Use: No Alcohol type: wine alcohol intake frequency: holidays/special occasions only Hx Substance Use: No substance use type: does not use Physical Exam Vital Signs Last Vital Signs Temp 36.6 C 11/18/20 07:31 Pulse 72 11/18/20 07:31 Resp 17 11/18/20 07:31 BP 145/76 H 11/18/20 07:31 Pulse Ox 97 11/18/20 07:31 Constitutional + obese ENMT Mouth: no dentition abnormality Thyromental Distance: < 3.5 Finger Breadths Mallampati Class: II Neck normal visual inspection and trachea midline; neck extension not limited Respiratory normal respiratory effort Auscultation: lungs clear to auscultation bilaterally Cardiovascular Rate/Rhythm: regular rate and regular rhythm Heart Sounds: no murmur Vessels: no carotid bruit Musculoskeletal Spine: normal cervical ROM Extremities: extremities normal to inspection Neurologic moves all extremities Motor/Sensory: no sensory deficit Psychiatric Orientation: alert and oriented x 3 Testing Laboratory Results 11/18/20 06:29 11/18/20 06:29 Hemoglobin A1c 5.4 % (4.5-5.6) 11/17/20 07:02 11/16/20 16:01 Aerobic Blood Culture - Preliminary Blood No growth in Aerobic bottle after 24 hours. Anaerobic Blood Culture - Preliminary No growth in Anaerobic bottle after 24 hours. 11/16/20 16:11 Aerobic Blood Culture - Preliminary Blood No growth in Aerobic bottle after 24 hours. Anaerobic Blood Culture - Preliminary No growth in Anaerobic bottle after 24 hours. 11/18/20 05:55 POC Glucose 81 Electrocardiogram Date: 11/18/20 Findings: + NSR @ (at 74) Echocardiogram Date: 10/21/18 EF: 60% LV Function: normal RWMA: + none Other Findings: + LVH (mild) and + diastolic dysfunction (grade 2) Valvular Disease: + no significant valvular disease mild pulm. htn
--- NOTE | 2020-11-18 10:34 | Post Operative Brief Note ---
Immediate Post Op Note v1 Date of Surgery November 18, 2020 Pre & Post Diagnosis Operation Date: 11/18/20 12:30 <No data on this case meets the specified criteria> I identified the patient and participated in the time-out.: Yes Procedure Operation Date: 11/18/20 12:30 <No data on this case meets the specified criteria> Surgeon Jay George MD Metal Trimmer none Estimated Blood Loss 30 Findings Consistent with Post-Op Diagnosis
--- NOTE | 2020-11-18 10:49 | Anesthesiology Progress Note ---
Date of Service November 18, 2020 Anesthesia Post Procedure Vital Signs Vital Signs: Temp Pulse Resp BP Pulse Ox 11/18/20 07:31 36.6 C 72 17 145/76 H 97 11/17/20 16:16 36.6 C 76 16 148/75 H 95 Transfer of Care Handoff Completed per policy Notes Mental Status: alert / awake / arousable Patient Amnestic to Procedure: Yes Nausea / Vomiting: adequately controlled Pain: adequately controlled Airway Patency, RR, SpO2: stable & adequate BP & HR: stable & adequate Hydration State: stable & adequate Anesthetic Complications: no major complications apparent
[2020-11-18] MEDS ORDERED: oxyCODONE/ACETAMINOPHEN 5mg/325mg TAB PO PRN ×2 (11:22)
--- NOTE | 2020-11-18 11:30 | Operative Report (OR) ---
PREOPERATIVE DIAGNOSES: 1. Left thigh necrotic ulcer. 2. Left thigh deep abscess. POSTOPERATIVE DIAGNOSES: 1. Left thigh necrotic ulcer. 2. Left thigh deep abscess. PROCEDURES PERFORMED: 1. I and D of left thigh abscess. 2. Debridement through skin and subcutaneous muscle and fascia of left thigh and necrotic ulcer. 3. Intraoperative cultures. SURGEON: Jay George MD. ANESTHESIA: Monitored anesthetic care. ESTIMATED BLOOD LOSS: 30 mL. DRAINS: None. COMPLICATIONS: None. INDICATIONS FOR THE PROCEDURE: This is a 74-year-old female with diabetes and a left thigh abscess a nd necrotic tissue down deep in her left thigh. We are going to plan on debriding this and doing an I and D. Intraoperative cultures will be taken. She understands the risks of a slow healing of the wound, bleeding, possible reoperation and spreading infection. DESCRIPTION OF PROCEDURE: The patient was taken to the OR and placed in supine position. Her left t high was prepped and draped in normal sterile fashion. Timeout was performed, patient was identified and site was identified. Once this was done under monitored anesthetic care, this was sharply debri ded down to necrotic skin, fat, muscle and down to deep fascia. Once we reached the fascia, this was opened up, there was some deep purulence, this was cultured. Once all the tissue was debrided and t here was good healthy tissue, which was sent for pathologic evaluation. The wound was then irrigated multiple times with saline. There was good healthy bleeding tissue. The wound was then packed with Kerlix. A sterile dressing was applied. She tolerated the procedure without complications to be se nt to the postop recovery for observation. She will be then sent to the floor and will begin dressin g changes in the morning. Job ID: [id number]
--- NOTE | 2020-11-18 12:29 | Hospitalist Progress Note ---
Date of Service November 18, 2020 Assessment & Plan (1) Cellulitis of left thigh: Plan: Superficial wound culture demonstrating Pseudomonas unsure if this is colonization versus actual infection No evidence of active necrotizing fasciitis at this time Empiric Zosyn and vancomycin Wound care consult -- Has been following with wound care Review of previous cultures with MRSA in past, resistant to tetracyclines Most recent cultures pseudomonas x 2 -- was told to start Doxycycline by wound care, Camila Barajas Required drainage/wound vac last year for R thigh and had vascular exposure requiring GSV closure with VenaSeal in the past Continues on Zosyn/Vanco (day 2 therapy) LFT alteration from recent doxy use? No abd pain/n/v reported 11/18 POD#0 S/p I and D of left thigh abscess, Debridement through skin and subcutaneous muscle and fascia of left thigh and necrotic ulcer. Intraoperative cultures. Monitor cultures Remains on Zosyn/Vanco (day 3 of therapy) ID consultation given MD resistant organisms in the past (MRSA resistant to Doxy, Pseudomonas resistant to Cipro, recent use of IV Ertapenem at d/c last admission as well as MDR Morganella and coag staph)-- consultation tomorrow hopefully IVF for today, d/c once keeping up with PO --> changed to 1/2NS Cr 1.25 around baseline (of note prior admit with hypotension/shock/kidney failure requiring HD) May need wound vac -- wound RN on consult Lovenox SQ resumes post-op as discussion with surgery yesterday to resume post- operatively Labs in AM Of note, patient on chronic prednisone and Plaquenil for her RA. No s/sx adrenal insufficiency at this time. Would avoid steroids (on maintenance, likely contributing to poor wound healing) unless becomes hypotensive/symptomatic Consider hold Plaquenil Of note, ??something like pyoderma gangrenosum or similar in patient immunosuppressed/RA ?consult rheum/derm while inpatient if felt appropriate (2) Chronic venous insufficiency: Plan: Currently in wound dressings wound RN consulted Possible need for wound vac for above -- (3) Venous stasis of both lower extremities: Plan: Currently in wound dressing (4) Edema of left lower leg: Plan: Follow-up with wound care recommendations chronic lymphedema (5) Hypoalbuminemia: Plan: Chronic protein calorie malnutrition (6) CKD (chronic kidney disease) stage 3, GFR 30-59 ml/min: Plan: Cr around baseline Avoid nephrotoxic agents, renally dose medications as appropriate Follow BMP (7) Hypokalemia: Plan: 60 M EQ K-Dur p.o. x1 in ED Mag checked -- low at 1.5 and IV replacement ordered Repeats wnl Continue to monitor Plan: Continue IV abx ID consultation tomorrow Dressing change/packing to be removed tomorrow -- patient may need wound vac but she would like to avoid this at all costs if possible Admission and Anticipated Discharge Date Admission Date: November 16, 2020 Subjective Patient evaluated this afternoon following I&D and debridement with Dr. George. Tolerated procedure well however when she was turned back to the floor she had increased pain and did receive something just recently for pain control. Discussed that this is an effective order additional pain control patient has tried to avoid pain medication as much as possible.. She is tearful about the possibility of needing back however we did discuss that we will remove the dressing and packing tomorrow and reevaluate daily to see if this indeed will need to be utilized but did not guarantee that this is definitive at this point in time. Set as she had an ablation on her leg last year and was told she should not have any issuesshe notes that she was told she had a leaky valve as the reason for this to be done. She denies any fever chills, chest pain, shortness of breath, abdominal pain, nausea, vomiting, dysuria at this time. Review of Systems Review of Systems: All systems reviewed & are unremarkable except as noted in HPI & below Physical Exam Constitutional: well developed, well nourished, + obese and comfortable; no acute distress (tearful, crying about wanting to avoid wound vac) Eyes: PERRL ENMT: external ear and nose normal, oropharynx normal Neck: trachea midline Respiratory: normal respiratory effort, lungs clear to auscultation Cardiovascular: RRR, no murmur, no edema Gastrointestinal (Abdomen): normal bowel sounds, soft, nontender, no hepatos plenomegaly Musculoskeletal: Head/Neck/Chest: normocephalic and head atraumatic Extremities: + chronic stasis changes (bilaterally) Skin: dressing to L medial thigh c/d/i, necrotic tissue debrided and no longer present. scant drainage. tender to palpation. surrounding erythema but not as much as day prior b/l UNNA boots Psychiatric: Orientation: alert and oriented x 3 Affect: + tearful affect Results & Data Results & Data ([facility]) Vital Signs (Past 12 Hours) Vital Signs Temp Pulse Pulse Resp BP BP Pulse Ox 11/18/20 11:15 36.5 C 66 22 163/82 H 97 11/18/20 11:00 36.6 C 68 20 157/79 H 100 11/18/20 10:50 69 20 152/80 H 100 11/18/20 10:40 36.6 C 72 16 131/80 95 11/18/20 07:31 36.6 C 72 17 145/76 H 97 Laboratory Results 11/18/20 11/18/20 11/18/20 Range/Units 06:29 06:29 06:29 WBC 6.45 (4.8-10.8) K/uL RBC 3.97 L (4.2-5.4) M/uL Hgb 10.7 L (12.0-16.0) g/dL Hct 34.3 L (37-47) % MCV 86.4 (80-100) fL MCH 27.0 (25-34) pg MCHC 31.2 L (32-36) g/dL RDW Std Deviation 45.6 (36.4-46.3) fL RDW Coeff of Saadia 14.3 (11.5-14.5) % Plt Count 266 (130-400) K/uL MPV 9.5 (7.4-10.4) fL Immature Gran % (Auto) 1.1 % Neut % (Auto) 71.6 % Lymph % (Auto) 13.3 % [place] % (Auto) 5.9 % Eos % (Auto) 7.9 % Baso % (Auto) 0.2 % Neut # (Auto) 4.62 (1.4-6.5) K/uL Lymph # (Auto) 0.86 L (1.2-3.4) K/uL [place] # (Auto) 0.38 (0.11-0.59) K/uL Eos # (Auto) 0.51 H (0-0.5) K/uL Baso # (Auto) 0.01 (0-0.2) K/uL Immature Gran # (Auto) 0.07 H (0.00-0.02) K/uL ESR 60 H (0-30) mm/hr Sodium 146 H (136-145) mmol/L Potassium 3.5 (3.5-5.1) mmol/L Chloride 117 H (98-107) mmol/L Carbon Dioxide 22 (21-32) mmol/L Anion Gap 7.0 (3-11) BUN 16 (7-18) mg/dl Creatinine 1.25 H (0.6-1.2) mg/dl Est Cr Clr Drug Dosing 43.5 ml/min Est GFR ( Amer) 49.1 ml/min Est GFR (Non-Af Amer) 42.3 ml/min BUN/Creatinine Ratio 12.6 (10-20) Glucose 85 (70-99) mg/dl POC Glucose (70-99) mg/dl Calcium 8.4 L (8.5-10.1) mg/dl Magnesium 2.2 (1.8-2.4) mg/dl Total Bilirubin 0.7 (0.2-1) mg/dl Direct Bilirubin 0.3 H (0-0.2) mg/dl AST 124 H (15-37) U/L ALT 93 H (12-78) U/L Alkaline Phosphatase 606 H (45-117) U/L C-Reactive Protein 8.72 H (0-0.29) mg/dl Total Protein 4.9 L (6.4-8.2) gm/dl Albumin 1.7 L (3.4-5.0) gm/dl 11/18/20 11/17/20 11/17/20 Range/Units 05:55 21:17 17:39 WBC (4.8-10.8) K/uL RBC (4.2-5.4) M/uL Hgb (12.0-16.0) g/dL Hct (37-47) % MCV (80-100) fL MCH (25-34) pg MCHC (32-36) g/dL RDW Std Deviation (36.4-46.3) fL RDW Coeff of Saadia (11.5-14.5) % Plt Count (130-400) K/uL MPV (7.4-10.4) fL Immature Gran % (Auto) % Neut % (Auto) % Lymph % (Auto) % [place] % (Auto) % Eos % (Auto) % Baso % (Auto) % Neut # (Auto) (1.4-6.5) K/uL Lymph # (Auto) (1.2-3.4) K/uL [place] # (Auto) (0.11-0.59) K/uL Eos # (Auto) (0-0.5) K/uL Baso # (Auto) (0-0.2) K/uL Immature Gran # (Auto) (0.00-0.02) K/uL ESR (0-30) mm/hr Sodium (136-145) mmol/L Potassium (3.5-5.1) mmol/L Chloride (98-107) mmol/L Carbon Dioxide (21-32) mmol/L Anion Gap (3-11) BUN (7-18) mg/dl Creatinine (0.6-1.2) mg/dl Est Cr Clr Drug Dosing ml/min Est GFR ( Amer) ml/min Est GFR (Non-Af Amer) ml/min BUN/Creatinine Ratio (10-20) Glucose (70-99) mg/dl POC Glucose 81 107 H 129 H (70-99) mg/dl Calcium (8.5-10.1) mg/dl Magnesium (1.8-2.4) mg/dl Total Bilirubin (0.2-1) mg/dl Direct Bilirubin (0-0.2) mg/dl AST (15-37) U/L ALT (12-78) U/L Alkaline Phosphatase (45-117) U/L C-Reactive Protein (0-0.29) mg/dl Total Protein (6.4-8.2) gm/dl Albumin (3.4-5.0) gm/dl 11/17/20 Range/Units 12:21 WBC (4.8-10.8) K/uL RBC (4.2-5.4) M/uL Hgb (12.0-16.0) g/dL Hct (37-47) % MCV (80-100) fL MCH (25-34) pg MCHC (32-36) g/dL RDW Std Deviation (36.4-46.3) fL RDW Coeff of Saadia (11.5-14.5) % Plt Count (130-400) K/uL MPV (7.4-10.4) fL Immature Gran % (Auto) % Neut % (Auto) % Lymph % (Auto) % [place] % (Auto) % Eos % (Auto) % Baso % (Auto) % Neut # (Auto) (1.4-6.5) K/uL Lymph # (Auto) (1.2-3.4) K/uL [place] # (Auto) (0.11-0.59) K/uL Eos # (Auto) (0-0.5) K/uL Baso # (Auto) (0-0.2) K/uL Immature Gran # (Auto) (0.00-0.02) K/uL ESR (0-30) mm/hr Sodium (136-145) mmol/L Potassium (3.5-5.1) mmol/L Chloride (98-107) mmol/L Carbon Dioxide (21-32) mmol/L Anion Gap (3-11) BUN (7-18) mg/dl Creatinine (0.6-1.2) mg/dl Est Cr Clr Drug Dosing ml/min Est GFR ( Amer) ml/min Est GFR (Non-Af Amer) ml/min BUN/Creatinine Ratio (10-20) Glucose (70-99) mg/dl POC Glucose 122 H (70-99) mg/dl Calcium (8.5-10.1) mg/dl Magnesium (1.8-2.4) mg/dl Total Bilirubin (0.2-1) mg/dl Direct Bilirubin (0-0.2) mg/dl AST (15-37) U/L ALT (12-78) U/L Alkaline Phosphatase (45-117) U/L C-Reactive Protein (0-0.29) mg/dl Total Protein (6.4-8.2) gm/dl Albumin (3.4-5.0) gm/dl PG Care Time/CCT Total # of Minutes Spent Total Time Spent with Patient: Total time spent is greater than 50% in coordination of care (as documented) at patient's floor/unit and/or counseling patient: Coding Level of Care Code 33239 Subseq Hosp Care Lvl 3 Diagnoses Cellulitis of left thigh L03.116 Chronic venous insufficiency I87.2 Venous stasis of both lower extremities I87.8 Edema of left lower leg R60.0 Hypoalbuminemia E88.09 CKD (chronic kidney disease) stage 3, GFR 30-59 ml/min N18.3 Hypokalemia E87.6
[2020-11-18] MEDS ORDERED: VANCOMYCIN TROUGH ONE (13:30)
[2020-11-18] MEDS: ENOXAPARIN INJ 60 MG/0.6 ML SYR SQ SCH (15:24)
[2020-11-18] MEDS: NYSTATIN POWDER 15GM BTL EXT SCH (15:24)
--- NOTE | 2020-11-18 15:54 | Pharmacy Report ---
Pharmacy Abx Dose Short Note - Date of Service November 18, 2020 - Assessment & Plan Assessment 74 year old F receiving IV Vancomycin + Zosyn for treatment of left thigh cellulitis, POD#0 I&D of left thigh abscess, Debridement through skin and subcutaneous muscle and fascia of left thigh and necrotic ulcer. Intraoperative cultures. Day # 3 of antimicrobial therapy. ID consult, hopefully tomorrow, hx MDR organisms -MRSA resistant to Doxy, Pseudomonas resistant to Cipro, recent use of IV Ertapenem at d/c last admission as well as MDR Morganella and coag staph Plan Vancomycin Patient meets criteria for vancomycin AUC dosing nomogram AUC/SONAL is the preferred PK/PD target for vancomycin Target AUC/SONAL = 400-600 Trough level of 20.2 mcg/mL is predicted to achieve target AUC/SONAL AUC guided dosing is effective and associated with decreased risk of nephrotoxicity * Trough level of 20.2 mcg/mL is therapeutic * Continue dose of 750 mg IV every 12 hours * Goal trough level for cellulitis with abscess : 15-20 mcg/mL Zosyn 3.375 G IV q8h for CrCl > 20ml/min Pharmacy will continue to follow and will adjust dose/frequency as necessary. Kendall grayson.
[2020-11-18] MEDS: HYDROXYCHLOROQUINE SULFATE 200 MG TAB PO SCH (20:29)
[2020-11-18] MEDS ORDERED: DOXYCYCLINE HYCLATE 100 MG CAP PO SCH (21:00)
[2020-11-19] MEDS: VANCOMYCIN HCL 750 MG in SODIUM CHLORIDE 0.9% 250 ML IV SCH (01:54)
[2020-11-19] MEDS: PIPERACILLIN/TAZOBACTAM 3.375 GM in DEXTROSE 5% 100 ML IV SCH ×3 (05:03→20:27)
[2020-11-19 07:26] LABS: Basophils # (auto) 0.01 K/uL (0-0.2); Basophils % (auto) 0.1 %; Eosinophils # (auto) 0.45 K/uL (0-0.5); Eosinophils % (auto) 6.7 %; Hematocrit (blood only) 32.7 % (37-47); Immature Granulocytes # (auto) 0.06 K/uL (0.00-0.02); Immature Granulocytes % (auto) 0.9 %; Lymphocytes # (auto) 0.76 K/uL (1.2-3.4); Lymphocytes % (auto) 11.2 %; Mean Corpuscular Hemoglobin 27.5 pg (25-34); Mean Corpuscular Hgb Conc 30.6 g/dL (32-36); Mean Corpuscular Volume 89.8 fL (80-100); Mean Platelet Volume 9.5 fL (7.4-10.4); Monocytes # (auto) 0.54 K/uL (0.11-0.59); Neutrophils # (auto) 4.94 K/uL (1.4-6.5); Neutrophils % (auto) 73.1 %; Platelet Count 246 K/uL (130-400); RDW Coefficient of Variation 14.5 % (11.5-14.5); RDW Standard Deviation 48.4 fL (36.4-46.3); Red Blood Count 3.64 M/uL (4.2-5.4); White Blood Count 6.76 K/uL (4.8-10.8)
[2020-11-19 07:49] LABS: Albumin Level 1.6 gm/dl (3.4-5.0); BUN Creatinine Ratio 9.2 (10-20); Bilirubin Direct 0.2 mg/dl (0-0.2); Bilirubin,Total 0.5 mg/dl (0.2-1); Calcium 8.3 mg/dl (8.5-10.1); Creatinine Clr Calc Pharmacy 34.6 ml/min; Est GFR (African American) 37.3 ml/min; Est GFR (Non-African American) 32.1 ml/min; Magnesium 1.9 mg/dl (1.8-2.4); Potassium 3.9 mmol/L (3.5-5.1); Total Protein 4.7 gm/dl (6.4-8.2)
[2020-11-19] MEDS: PANTOprazole 40 MG TAB PO SCH (08:08)
[2020-11-19] MEDS: LEFLUNOMIDE 10 MG TAB PO SCH (08:08)
[2020-11-19] MEDS: predniSONE 2.5 MG TAB PO SCH (08:08)
[2020-11-19] MEDS: FOLIC ACID 1 MG TAB PO SCH (08:08)
[2020-11-19] MEDS: FERROUS SULFATE 325 MG TAB PO SCH ×3 (08:08→16:55)
[2020-11-19] MEDS: NYSTATIN POWDER 15GM BTL EXT SCH (08:08)
[2020-11-19] MEDS: ASPIRIN 81 MG ECTAB PO SCH (08:08)
[2020-11-19] MEDS: PRAVASTATIN SOD 20 MG TAB PO SCH (08:08)
[2020-11-19] MEDS: ZINC SULFATE 220 MG CAPSULE PO SCH (08:08)
[2020-11-19] MEDS: ENOXAPARIN INJ 60 MG/0.6 ML SYR SQ SCH (08:09)
[2020-11-19] MEDS ORDERED: NYSTATIN POWDER 15GM BTL EXT SCH (09:00)
[2020-11-19] MEDS ORDERED: predniSONE 5 MG TAB PO SCH (09:00)
[2020-11-19] MEDS: INSULIN ASPART 100 UNITS/ML 3 ML PEN SC SCH ×4 (09:40→20:59)
--- NOTE | 2020-11-19 13:37 | Surgery Progress Note ---
Date of Service November 19, 2020 Assessment & Plan (1) Abscess of left thigh: Plan: POD # 1 s/p Incision and drainage and debridement of left thigh necrotic ulcer and abscess - avss - culture showing staphylococcus - history of multiple wounds requiring wound care evaluation and treatment in wound clinic - history of drug resistant infections Plan: diet as tolerated will consult wound care nurse for wound care and follow-up. Patient refusing wound vac. Wound care clinic follow-up needed ID consulted by medicine team given history of drug resistant infections, await recommendations Change outer dressing as needed, packing and wound care per wound nurse (2) Ulcer with gangrene, limited to breakdown of skin: Plan: Dr. Rojo has seen and examined pt, agrees with above. Admission and Anticipated Discharge Date Admission Date: November 16, 2020 Subjective having soreness of the left thigh, not so much pain wound care nurse has not been by today Physical Exam Constitutional: WD/WN, vitals as above Respiratory: normal respiratory effort; no respiratory distress and no labored breathing Musculoskeletal: Left thigh with cornelia wrap bandage present. Wound covered with abd gauze and tape. Removed to inspect surrounding skin and wound tissue. Healthy granulation tissue present. Wound packing not removed. Skin: no rashes, warm and dry Psychiatric: Orientation: alert and oriented x 3 Affect: + flat affect Results & Data ([facility]) Vital Signs (Past 12 Hours) Vital Signs Temp Pulse Resp BP Pulse Ox 11/19/20 07:28 36.7 C 69 16 118/72 95 11/19/20 03:39 36.6 C 67 14 126/77 97 Laboratory Results 11/19/20 11/19/20 11/19/20 Range/Units 12:13 08:14 06:48 WBC (4.8-10.8) K/uL RBC (4.2-5.4) M/uL Hgb (12.0-16.0) g/dL Hct (37-47) % MCV (80-100) fL MCH (25-34) pg MCHC (32-36) g/dL RDW Std Deviation (36.4-46.3) fL RDW Coeff of Saadia (11.5-14.5) % Plt Count (130-400) K/uL MPV (7.4-10.4) fL Immature Gran % (Auto) % Neut % (Auto) % Lymph % (Auto) % [place] % (Auto) % Eos % (Auto) % Baso % (Auto) % Neut # (Auto) (1.4-6.5) K/uL Lymph # (Auto) (1.2-3.4) K/uL [place] # (Auto) (0.11-0.59) K/uL Eos # (Auto) (0-0.5) K/uL Baso # (Auto) (0-0.2) K/uL Immature Gran # (Auto) (0.00-0.02) K/uL Sodium 143 (136-145) mmol/L Potassium 3.9 (3.5-5.1) mmol/L Chloride 115 H (98-107) mmol/L Carbon Dioxide 23 (21-32) mmol/L Anion Gap 5.0 (3-11) BUN 14 (7-18) mg/dl Creatinine 1.57 H D (0.6-1.2) mg/dl Est Cr Clr Drug Dosing 34.6 ml/min Est GFR ( Amer) 37.3 ml/min Est GFR (Non-Af Amer) 32.1 ml/min BUN/Creatinine Ratio 9.2 L (10-20) Glucose 77 (70-99) mg/dl POC Glucose 99 84 (70-99) mg/dl Calcium 8.3 L (8.5-10.1) mg/dl Magnesium 1.9 (1.8-2.4) mg/dl Total Bilirubin 0.5 (0.2-1) mg/dl Direct Bilirubin 0.2 (0-0.2) mg/dl AST 62 H (15-37) U/L ALT 67 (12-78) U/L Alkaline Phosphatase 502 H (45-117) U/L Total Protein 4.7 L (6.4-8.2) gm/dl Albumin 1.6 L (3.4-5.0) gm/dl Vancomycin Trough (See Comment) mcg/ml 11/19/20 11/18/20 11/18/20 Range/Units 06:48 21:16 17:30 WBC 6.76 (4.8-10.8) K/uL RBC 3.64 L (4.2-5.4) M/uL Hgb 10.0 L (12.0-16.0) g/dL Hct 32.7 L (37-47) % MCV 89.8 (80-100) fL MCH 27.5 (25-34) pg MCHC 30.6 L (32-36) g/dL RDW Std Deviation 48.4 H (36.4-46.3) fL RDW Coeff of Saadia 14.5 (11.5-14.5) % Plt Count 246 (130-400) K/uL MPV 9.5 (7.4-10.4) fL Immature Gran % (Auto) 0.9 % Neut % (Auto) 73.1 % Lymph % (Auto) 11.2 % [place] % (Auto) 8.0 % Eos % (Auto) 6.7 % Baso % (Auto) 0.1 % Neut # (Auto) 4.94 (1.4-6.5) K/uL Lymph # (Auto) 0.76 L (1.2-3.4) K/uL [place] # (Auto) 0.54 (0.11-0.59) K/uL Eos # (Auto) 0.45 (0-0.5) K/uL Baso # (Auto) 0.01 (0-0.2) K/uL Immature Gran # (Auto) 0.06 H (0.00-0.02) K/uL Sodium (136-145) mmol/L Potassium (3.5-5.1) mmol/L Chloride (98-107) mmol/L Carbon Dioxide (21-32) mmol/L Anion Gap (3-11) BUN (7-18) mg/dl Creatinine (0.6-1.2) mg/dl Est Cr Clr Drug Dosing ml/min Est GFR ( Amer) ml/min Est GFR (Non-Af Amer) ml/min BUN/Creatinine Ratio (10-20) Glucose (70-99) mg/dl POC Glucose 103 H 92 (70-99) mg/dl Calcium (8.5-10.1) mg/dl Magnesium (1.8-2.4) mg/dl Total Bilirubin (0.2-1) mg/dl Direct Bilirubin (0-0.2) mg/dl AST (15-37) U/L ALT (12-78) U/L Alkaline Phosphatase (45-117) U/L Total Protein (6.4-8.2) gm/dl Albumin (3.4-5.0) gm/dl Vancomycin Trough (See Comment) mcg/ml 11/18/20 Range/Units 14:01 WBC (4.8-10.8) K/uL RBC (4.2-5.4) M/uL Hgb (12.0-16.0) g/dL Hct (37-47) % MCV (80-100) fL MCH (25-34) pg MCHC (32-36) g/dL RDW Std Deviation (36.4-46.3) fL RDW Coeff of Saadia (11.5-14.5) % Plt Count (130-400) K/uL MPV (7.4-10.4) fL Immature Gran % (Auto) % Neut % (Auto) % Lymph % (Auto) % [place] % (Auto) % Eos % (Auto) % Baso % (Auto) % Neut # (Auto) (1.4-6.5) K/uL Lymph # (Auto) (1.2-3.4) K/uL [place] # (Auto) (0.11-0.59) K/uL Eos # (Auto) (0-0.5) K/uL Baso # (Auto) (0-0.2) K/uL Immature Gran # (Auto) (0.00-0.02) K/uL Sodium (136-145) mmol/L Potassium (3.5-5.1) mmol/L Chloride (98-107) mmol/L Carbon Dioxide (21-32) mmol/L Anion Gap (3-11) BUN (7-18) mg/dl Creatinine (0.6-1.2) mg/dl Est Cr Clr Drug Dosing ml/min Est GFR ( Amer) ml/min Est GFR (Non-Af Amer) ml/min BUN/Creatinine Ratio (10-20) Glucose (70-99) mg/dl POC Glucose (70-99) mg/dl Calcium (8.5-10.1) mg/dl Magnesium (1.8-2.4) mg/dl Total Bilirubin (0.2-1) mg/dl Direct Bilirubin (0-0.2) mg/dl AST (15-37) U/L ALT (12-78) U/L Alkaline Phosphatase (45-117) U/L Total Protein (6.4-8.2) gm/dl Albumin (3.4-5.0) gm/dl Vancomycin Trough 20.2 (See Comment) mcg/ml Microbiology 11/18/20 10:35 Gram Stain - Final Leg,Left Aerobic and Anaerobic Culture - Preliminary Staphylococcus species 11/16/20 16:01 Aerobic Blood Culture - Preliminary Blood No growth in Aerobic bottle after 48 hours. Anaerobic Blood Culture - Preliminary No growth in Anaerobic bottle after 48 hours. 11/16/20 16:11 Aerobic Blood Culture - Preliminary Blood No growth in Aerobic bottle after 48 hours. Anaerobic Blood Culture - Preliminary No growth in Anaerobic bottle after 48 hours.
--- NOTE | 2020-11-19 15:58 | Hospitalist Progress Note ---
Date of Service November 19, 2020 Assessment & Plan (1) Cellulitis of left thigh: Plan: Superficial wound culture demonstrating Pseudomonas unsure if this is colonization versus actual infection No evidence of active necrotizing fasciitis at this time Empiric Zosyn and vancomycin Wound care consult -- Has been following with wound care Review of previous cultures with MRSA in past, resistant to tetracyclines Most recent cultures pseudomonas x 2 -- was told to start Doxycycline by wound care, Camila Barajas Required drainage/wound vac last year for R thigh and had vascular exposure requiring GSV closure with VenaSeal in the past Continues on Zosyn/Vanco (day 2 therapy) LFT alteration from recent doxy use? No abd pain/n/v reported 8/ POD#1 S/p I and D of left thigh abscess, Debridement through skin and subcutaneous muscle and fascia of left thigh and necrotic ulcer. Intraoperative cultures. Monitor cultures Remains on Zosyn/Vanco (day 4 of therapy) ID consultation given MD resistant organisms in the past (MRSA resistant to Doxy, Pseudomonas resistant to Cipro, recent use of IV Ertapenem at d/c last admission as well as MDR Morganella and coag staph)-- consultation tomorrow hopefully Of note, patient on chronic prednisone and Plaquenil for her RA. No s/sx adrenal insufficiency at this time. 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 (4) Edema of left lower leg: Plan: Follow-up with wound care recommendations chronic lymphedema (5) Hypoalbuminemia: Plan: Chronic protein calorie malnutrition (6) CKD (chronic kidney disease) stage 3, GFR 30-59 ml/min: Plan: Cr around baseline, 1.5 Avoid nephrotoxic agents, renally dose medications as appropriate Follow BMP (7) Hypokalemia: Plan: up to normal, follow periodically Plan: Continue IV abx ID consultation today Admission and Anticipated Discharge Date Admission Date: November 16, 2020 Subjective patient doing okay, worried that the optifoam on left thigh will come off no fever, no pain in legs, no chest pain, no dyspnea, no cough eating okay awaiting ID consult appreciate surgery note discussed with CM, will likely need SNF as she will need IV antibiotics Review of Systems Review of Systems: All systems reviewed & are unremarkable except as noted in Subjective Integumentary: + wounds (left thigh) Physical Exam Constitutional: well developed, well nourished and + obese; no acute distress Neck: trachea midline, no thyromegaly Respiratory: normal respiratory effort, lungs clear to auscultation Cardiovascular: RRR, no murmur, no edema Gastrointestinal (Abdomen): normal bowel sounds, soft, nontender, no hepatosplenomegaly Musculoskeletal: no cyanosis or clubbing, extremities motor strength 5/5 Skin: + wound (left thigh, dressed with Optifoam) Psychiatric: A+Ox3, euthymic affect Results & Data Results & Data ([facility]) Vital Signs (Past 12 Hours) Vital Signs Temp Pulse Resp BP Pulse Ox 11/19/20 07:28 36.7 C 69 16 118/72 95 Laboratory Results Laboratory Results - last 24 hr 11/18/20 11/18/20 11/19/20 17:30 21:16 06:48 WBC 6.76 RBC 3.64 L Hgb 10.0 L Hct 32.7 L MCV 89.8 MCH 27.5 MCHC 30.6 L RDW Std Deviation 48.4 H RDW Coeff of Saadia 14.5 Plt Count 246 MPV 9.5 Immature Gran % (Auto) 0.9 Neut % (Auto) 73.1 Lymph % (Auto) 11.2 [place] % (Auto) 8.0 Eos % (Auto) 6.7 Baso % (Auto) 0.1 Neut # (Auto) 4.94 Lymph # (Auto) 0.76 L [place] # (Auto) 0.54 Eos # (Auto) 0.45 Baso # (Auto) 0.01 Immature Gran # (Auto) 0.06 H Sodium Potassium Chloride Carbon Dioxide Anion Gap BUN Creatinine Est Cr Clr Drug Dosing Est GFR ( Amer) Est GFR (Non-Af Amer) BUN/Creatinine Ratio Glucose POC Glucose 92 103 H Calcium Magnesium Total Bilirubin Direct Bilirubin AST ALT Alkaline Phosphatase Total Protein Albumin 11/19/20 11/19/20 11/19/20 06:48 08:14 12:13 WBC RBC Hgb Hct MCV MCH MCHC RDW Std Deviation RDW Coeff of Saadia Plt Count MPV Immature Gran % (Auto) Neut % (Auto) Lymph % (Auto) [place] % (Auto) Eos % (Auto) Baso % (Auto) Neut # (Auto) Lymph # (Auto) [place] # (Auto) Eos # (Auto) Baso # (Auto) Immature Gran # (Auto) Sodium 143 Potassium 3.9 Chloride 115 H Carbon Dioxide 23 Anion Gap 5.0 BUN 14 Creatinine 1.57 H D Est Cr Clr Drug Dosing 34.6 Est GFR ( Amer) 37.3 Est GFR (Non-Af Amer) 32.1 BUN/Creatinine Ratio 9.2 L Glucose 77 POC Glucose 84 99 Calcium 8.3 L Magnesium 1.9 Total Bilirubin 0.5 Direct Bilirubin 0.2 AST 62 H ALT 67 Alkaline Phosphatase 502 H Total Protein 4.7 L Albumin 1.6 L Medications Administered Current Inpatient Medications Acetaminophen (Acetaminophen 325 Mg Tab) 650 mg PO Q4H PRN PRN Reason: pain or fever Stop: 12/17/20 15:23 Aspirin (Aspirin 81 Mg Ectab) 81 mg PO DAILY FRANSISCO Stop: 12/17/20 08:59 Last Admin: 11/19/20 08:08 Dose: 81 mg Documented by: Dextrose (Dextrose 50% 50 Ml Syringe) 25 - 50 ml IV UD PRN; Protocol PRN Reason: Hypoglycemia Protocol Stop: 12/16/20 20:07 Enoxaparin Sodium (Enoxaparin Inj 60 Mg/0.6 Ml Syr) 50 mg SQ DAILY FRANSISCO Stop: 12/18/20 12:59 Last Admin: 11/19/20 08:09 Dose: 50 mg Documented by: Ferrous Sulfate (Ferrous Sulfate 325 Mg Tab) 325 mg PO TIDM [facility] Stop: 12/16/20 20:07 Last Admin: 11/19/20 13:16 Dose: 325 mg Documented by: Folic Acid (Folic Acid 1 Mg Tab) 1 mg PO QAM FRANSISCO Stop: 12/17/20 08:59 Last Admin: 11/19/20 08:08 Dose: 1 mg Documented by: Glucagon (Glucagon For Inj 1 Mg Vial) 1 mg SQ UD PRN; Protocol PRN Reason: Hypoglycemia Protocol Stop: 12/16/20 20:07 Glucose (Glucose 10 Tabs/Tube) 4 - 8 tabs PO UD PRN; Protocol PRN Reason: Hypoglycemia Protocol Stop: 12/16/20 20:07 Glucose (Glucose 40% Gel 15 Gm Tube) 15 - 30 gm PO UD PRN; Protocol PRN Reason: Hypoglycemia Protocol Stop: 12/16/20 20:07 Hydroxychloroquine Sulfate (Hydroxychloroquine Sulfate 200 Mg Tab) 400 mg PO HS FRANSISCO Stop: 12/16/20 20:59 Last Admin: 11/18/20 20:29 Dose: 400 mg Documented by: Piperacillin Sod/Tazobactam (Sod 3.375 gm/ Dextrose) 115 mls @ 28.75 mls/hr IV Q8H FRANSISCO; Protocol Stop: 11/23/20 20:59 Last Admin: 11/19/20 13:19 Dose: 28.8 mls/hr Documented by: Insulin Aspart (Insulin Aspart 100 Units/Ml 3 Ml Pen) 0 units SC ACHS FRANSISCO Stop: 12/18/20 20:59 Last Admin: 11/19/20 13:17 Dose: Not Given Documented by: Leflunomide (Leflunomide 10 Mg Tab) 10 mg PO DAILY FRANSISCO Stop: 12/17/20 08:59 Last Admin: 11/19/20 08:08 Dose: 10 mg Documented by: Miscellaneous (Gentamicin 0.1 % Ointment -- Order Awaiting Action) 1 ea N/A QS [facility] Stop: 12/17/20 00:00 Last Admin: 11/19/20 15:44 Dose: Not Given Documented by: Miscellaneous (Carbohydrates For Hypoglycemia ) 15 - 30 gm PO UD PRN PRN Reason: Hypoglycemia Protocol Stop: 12/16/20 20:07 Miscellaneous (Desoximetasone 0.25 % Ointment ~ Order Awaiting Action) 1 ea N/A QS FRANSISCO Stop: 12/18/20 15:59 Last Admin: 11/19/20 15:44 Dose: Not Given Documented by: Miscellaneous Information (Piperacill/Tazobac Consult Active) 1 ea N/A UD PRN PRN Reason: Consult Stop: 12/16/20 15:40 Miscellaneous Information (Vancomycin Consult Active) 1 ea N/A UD PRN PRN Reason: Consult Stop: 12/16/20 20:07 Nystatin (Nystatin Powder 15gm Btl) 1 appln EXT DAILY FRANSISCO Stop: 12/17/20 17:59 Last Admin: 11/19/20 08:08 Dose: Not Given Documented by: Oxycodone/Acetaminophen (Oxycodone/Acetaminophen 5mg/325mg Tab) 1 tab PO Q4H PRN PRN Reason: MODERATE Pain (4,5,6) & Pre PT Stop: 12/02/20 11:21 Last Admin: 11/18/20 11:55 Dose: 1 tab Documented by: Oxycodone/Acetaminophen (Oxycodone/Acetaminophen 5mg/325mg Tab) 2 tab PO Q4H PRN PRN Reason: SEVERE Pain (7,8,9,10) Stop: 12/02/20 11:21 Pantoprazole Sodium (Pantoprazole 40 Mg Tab) 40 mg PO DAILY FRANSISCO Stop: 12/17/20 08:59 Last Admin: 11/19/20 08:08 Dose: 40 mg Documented by: Pravastatin Sodium (Pravastatin Sod 20 Mg Tab) 20 mg PO DAILY FRANSISCO Stop: 12/17/20 08:59 Last Admin: 11/19/20 08:08 Dose: 20 mg Documented by: Prednisone (Prednisone 2.5 Mg Tab) 2.5 mg PO DAILY FRANSISCO Stop: 12/17/20 08:59 Last Admin: 11/19/20 08:08 Dose: 2.5 mg Documented by: Zinc Sulfate (Zinc Sulfate 220 Mg Capsule) 220 mg PO DAILY FRANSISCO Stop: 12/17/20 08:59 Last Admin: 11/19/20 08:08 Dose: 220 mg Documented by: PG Care Time/CCT Total # of Minutes Spent Total Time Spent with Patient: Total time spent is greater than 50% in coordination of care (as documented) at patient's floor/unit and/or counseling patient: Coding Level of Care Code 50482 Subseq Hosp Care Lvl 2 Diagnoses Cellulitis of left thigh L03.116 Chronic venous insufficiency I87.2 Venous stasis of both lower extremities I87.8 Edema of left lower leg R60.0 Hypoalbuminemia E88.09 CKD (chronic kidney disease) stage 3, GFR 30-59 ml/min N18.3 Hypokalemia E87.6
[2020-11-19] MEDS: HYDROXYCHLOROQUINE SULFATE 200 MG TAB PO SCH (20:27)
[2020-11-20] MEDS: PIPERACILLIN/TAZOBACTAM 3.375 GM in DEXTROSE 5% 100 ML IV SCH (04:45)
[2020-11-20] MEDS: FERROUS SULFATE 325 MG TAB PO SCH ×3 (08:02→17:03)
[2020-11-20] MEDS: ASPIRIN 81 MG ECTAB PO SCH (08:03)
[2020-11-20] MEDS: ENOXAPARIN INJ 60 MG/0.6 ML SYR SQ SCH (08:08)
[2020-11-20] MEDS: FOLIC ACID 1 MG TAB PO SCH (08:09)
[2020-11-20] MEDS: LEFLUNOMIDE 10 MG TAB PO SCH (08:10)
[2020-11-20] MEDS: PANTOprazole 40 MG TAB PO SCH (08:11)
[2020-11-20] MEDS: PRAVASTATIN SOD 20 MG TAB PO SCH (08:11)
[2020-11-20] MEDS: ZINC SULFATE 220 MG CAPSULE PO SCH (08:12)
[2020-11-20] MEDS: predniSONE 2.5 MG TAB PO SCH (08:12)
[2020-11-20] MEDS: NYSTATIN POWDER 15GM BTL EXT SCH (08:13)
[2020-11-20 08:32] LABS: Basophils # (auto) 0.01 K/uL (0-0.2); Basophils % (auto) 0.1 %; Eosinophils # (auto) 0.55 K/uL (0-0.5); Eosinophils % (auto) 8.1 %; Hematocrit (blood only) 35.3 % (37-47); Immature Granulocytes % (auto) 1.5 %; Lymphocytes # (auto) 0.96 K/uL (1.2-3.4); Lymphocytes % (auto) 14.1 %; Mean Corpuscular Hemoglobin 27.4 pg (25-34); Mean Corpuscular Hgb Conc 31.2 g/dL (32-36); Mean Platelet Volume 9.2 fL (7.4-10.4); Monocytes # (auto) 0.57 K/uL (0.11-0.59); Monocytes % (auto) 8.4 %; Neutrophils # (auto) 4.61 K/uL (1.4-6.5); Neutrophils % (auto) 67.8 %; Platelet Count 249 K/uL (130-400); RDW Coefficient of Variation 14.5 % (11.5-14.5); Red Blood Count 4.01 M/uL (4.2-5.4)
[2020-11-20 08:57] LABS: BUN Creatinine Ratio 9.8 (10-20); Calcium 8.9 mg/dl (8.5-10.1); Creatinine Clr Calc Pharmacy 37.3 ml/min; Est GFR (African American) 39.1 ml/min; Est GFR (Non-African American) 33.7 ml/min; Magnesium 1.7 mg/dl (1.8-2.4); Potassium 3.7 mmol/L (3.5-5.1)
[2020-11-20] MEDS: INSULIN ASPART 100 UNITS/ML 3 ML PEN SC SCH ×4 (09:23→21:26)
--- NOTE | 2020-11-20 09:37 | Pharmacy Report ---
Pharmacy Abx Dose Short Note - Date of Service November 20, 2020 - Assessment & Plan Assessment 74 year old F admitted on 11/16/30 secondary to left thigh cellulitis * Has been receiving Vancomycin and Zosyn since admission * [facility] Infectious Disease consulted and recommended continuing Vancomycin with a transition to orals if possible as well as stopping Zosyn given Pseudomonas aeruginosa is not the target organism. Also recommended a total of 7 days of therapy if wound continues to improve (11/16/20-11/23/20). Recommendations relayed to primary team and accepted. * Zosyn discontinued * MSSA grew in culture which was sensitive to Oxacillin, Bactrim, Daptomycin, and Vancomycin. Unfortunately, patient has allergies to penicillins, cephalosporins and sulfa antibiotics. Therefore, Vancomycin to continue with last day of therapy to be 11/23/20 if wound continues to improve. * Patient remains afebrile and without leukocytosis Plan Discontinue Zosyn Vancomycin * Random level of 18.0 mcg/mL is therapeutic * This was drawn ~30 hours following the last dose of Vancomycin * Renal fxn has improved slightly today and expect this to continue to improve now that Zosyn has been discontinued limiting the concomitant nephrotoxicity of both antibiotics. * Change to 750 mg IV every 24 hours * Goal trough level: 15 to 20 mcg/mL * Trough level ordered for 11/21/20 prior to the 1000 dose * This will be prior to steady state but want to ensure level is not supratherapeutic or subtherapeutic pending any further change in renal function Pharmacy will continue to follow and will adjust dose/frequency as necessary. Thank you.
[2020-11-20] MEDS: VANCOMYCIN HCL 750 MG in SODIUM CHLORIDE 0.9% 250 ML IV SCH (10:05)
[2020-11-20] MEDS ORDERED: ONDANSETRON INJ 2 MG/ML 2 ML VIAL IV PRN (10:07)
--- NOTE | 2020-11-20 10:12 | Surgery Progress Note ---
Date of Service November 20, 2020 Assessment & Plan (1) Abscess of left thigh: Plan: POD # 2 s/p Incision and drainage and debridement of left thigh necrotic ulcer and abscess - avss - culture showing staphylococcus - history of multiple wounds requiring wound care evaluation and treatment in wound clinic - history of drug resistant infections Plan: diet as tolerated Continue Vancomycin as recommended by Infectious disease. Continue wound care per wound care nurse. Patient refusing wound vac. Wound care clinic follow-up needed our services singing off please call with questions or concerns (2) Ulcer with gangrene, limited to breakdown of skin: Plan: Dr. Rojo has seen and examined pt, agrees with above. Admission and Anticipated Discharge Date Admission Date: November 16, 2020 Subjective feeling better today left thigh pain and tenderness has improved compared to yesterday wound nurse saw yesterday placed aquacel into wound and then optifoam, patient said optifoam does not work for her. Now has abd and tape over wound. No fevers or chills mild nausea with breakfast this morning states she talked to someone from Infectious disease yesterday Physical Exam Constitutional: WD/WN, vitals as above no acute distress and not ill appearing Respiratory: normal respiratory effort; no respiratory distress and no labored breathing Skin: Left thigh with dry dressing in place. The dressing was brought down and wound is coverd with Aquacel . There is some fibrinous tissue present at edges. There is some edema superiorly but no overt erythmea or induration or flucutance. Psychiatric: Orientation: alert and oriented x 3 Eye Contact: good eye contact Affect: + flat affect Results & Data ([facility]) Vital Signs (Past 12 Hours) Vital Signs Temp Pulse Resp BP Pulse Ox 11/20/20 07:00 36.8 C 65 20 160/72 H 97 11/19/20 22:40 167/78 H Laboratory Results 11/20/20 11/20/20 11/20/20 Range/Units 08:19 08:19 08:19 WBC 6.80 (4.8-10.8) K/uL RBC 4.01 L (4.2-5.4) M/uL Hgb 11.0 L (12.0-16.0) g/dL Hct 35.3 L (37-47) % MCV 88.0 (80-100) fL MCH 27.4 (25-34) pg MCHC 31.2 L (32-36) g/dL RDW Std Deviation 47.0 H (36.4-46.3) fL RDW Coeff of Saadia 14.5 (11.5-14.5) % Plt Count 249 (130-400) K/uL MPV 9.2 (7.4-10.4) fL Immature Gran % (Auto) 1.5 % Neut % (Auto) 67.8 % Lymph % (Auto) 14.1 % [place] % (Auto) 8.4 % Eos % (Auto) 8.1 % Baso % (Auto) 0.1 % Neut # (Auto) 4.61 (1.4-6.5) K/uL Lymph # (Auto) 0.96 L (1.2-3.4) K/uL [place] # (Auto) 0.57 (0.11-0.59) K/uL Eos # (Auto) 0.55 H (0-0.5) K/uL Baso # (Auto) 0.01 (0-0.2) K/uL Immature Gran # (Auto) 0.10 H (0.00-0.02) K/uL Sodium 143 (136-145) mmol/L Potassium 3.7 (3.5-5.1) mmol/L Chloride 115 H (98-107) mmol/L Carbon Dioxide 22 (21-32) mmol/L Anion Gap 7.0 (3-11) BUN 15 (7-18) mg/dl Creatinine 1.51 H (0.6-1.2) mg/dl Est Cr Clr Drug Dosing 37.3 ml/min Est GFR ( Amer) 39.1 ml/min Est GFR (Non-Af Amer) 33.7 ml/min BUN/Creatinine Ratio 9.8 L (10-20) Glucose 89 (70-99) mg/dl POC Glucose (70-99) mg/dl Calcium 8.9 (8.5-10.1) mg/dl Magnesium 1.7 L (1.8-2.4) mg/dl Random Vancomycin 18.0 mcg/ml 11/20/20 11/20/20 11/19/20 Range/Units 07:37 07:35 20:52 WBC (4.8-10.8) K/uL RBC (4.2-5.4) M/uL Hgb (12.0-16.0) g/dL Hct (37-47) % MCV (80-100) fL MCH (25-34) pg MCHC (32-36) g/dL RDW Std Deviation (36.4-46.3) fL RDW Coeff of Saadia (11.5-14.5) % Plt Count (130-400) K/uL MPV (7.4-10.4) fL Immature Gran % (Auto) % Neut % (Auto) % Lymph % (Auto) % [place] % (Auto) % Eos % (Auto) % Baso % (Auto) % Neut # (Auto) (1.4-6.5) K/uL Lymph # (Auto) (1.2-3.4) K/uL [place] # (Auto) (0.11-0.59) K/uL Eos # (Auto) (0-0.5) K/uL Baso # (Auto) (0-0.2) K/uL Immature Gran # (Auto) (0.00-0.02) K/uL Sodium (136-145) mmol/L Potassium (3.5-5.1) mmol/L Chloride (98-107) mmol/L Carbon Dioxide (21-32) mmol/L Anion Gap (3-11) BUN (7-18) mg/dl Creatinine (0.6-1.2) mg/dl Est Cr Clr Drug Dosing ml/min Est GFR ( Amer) ml/min Est GFR (Non-Af Amer) ml/min BUN/Creatinine Ratio (10-20) Glucose (70-99) mg/dl POC Glucose 80 68 L* 89 (70-99) mg/dl Calcium (8.5-10.1) mg/dl Magnesium (1.8-2.4) mg/dl Random Vancomycin mcg/ml 11/19/20 11/19/20 Range/Units 17:30 12:13 WBC (4.8-10.8) K/uL RBC (4.2-5.4) M/uL Hgb (12.0-16.0) g/dL Hct (37-47) % MCV (80-100) fL MCH (25-34) pg MCHC (32-36) g/dL RDW Std Deviation (36.4-46.3) fL RDW Coeff of Saadia (11.5-14.5) % Plt Count (130-400) K/uL MPV (7.4-10.4) fL Immature Gran % (Auto) % Neut % (Auto) % Lymph % (Auto) % [place] % (Auto) % Eos % (Auto) % Baso % (Auto) % Neut # (Auto) (1.4-6.5) K/uL Lymph # (Auto) (1.2-3.4) K/uL [place] # (Auto) (0.11-0.59) K/uL Eos # (Auto) (0-0.5) K/uL Baso # (Auto) (0-0.2) K/uL Immature Gran # (Auto) (0.00-0.02) K/uL Sodium (136-145) mmol/L Potassium (3.5-5.1) mmol/L Chloride (98-107) mmol/L Carbon Dioxide (21-32) mmol/L Anion Gap (3-11) BUN (7-18) mg/dl Creatinine (0.6-1.2) mg/dl Est Cr Clr Drug Dosing ml/min Est GFR ( Amer) ml/min Est GFR (Non-Af Amer) ml/min BUN/Creatinine Ratio (10-20) Glucose (70-99) mg/dl POC Glucose 106 H 99 (70-99) mg/dl Calcium (8.5-10.1) mg/dl Magnesium (1.8-2.4) mg/dl Random Vancomycin mcg/ml Microbiology 11/18/20 10:35 Gram Stain - Final Leg,Left Aerobic and Anaerobic Culture - Preliminary Staphylococcus aureus
[2020-11-20] MEDS ORDERED: MAGNESIUM SULFATE / D5W 1 GM/100 ML BAG IV ONE (15:00)
--- NOTE | 2020-11-20 15:13 | Hospitalist Progress Note ---
Date of Service November 20, 2020 Assessment & Plan (1) Cellulitis of left thigh: Plan: / POD#2 S/p I and D of left thigh abscess, Debridement through skin and subcutaneous muscle and fascia of left thigh and necrotic ulcer. Intraoperative cultures. WOUND CULTURE: MSSA continue Vanco, stop Zosyn cannot use PCN due to allergies ID consultation appreciated Of note, patient on chronic prednisone and Plaquenil for her RA. No s/sx adrenal insufficiency at this time. Consider hold Plaquenil (2) Chronic venous insufficiency: Plan: Currently in wound dressings wound RN consulted no wound vac at this time (3) Venous stasis of both lower extremities: Plan: tubigrip on left, dressing on right horser up helping to manage (4) Edema of left lower leg: Plan: Follow-up with wound care recommendations chronic lymphedema (5) Hypoalbuminemia: Plan: Chronic protein calorie malnutrition (6) CKD (chronic kidney disease) stage 3, GFR 30-59 ml/min: Plan: Cr around baseline, 1.5 Avoid nephrotoxic agents, renally dose medications as appropriate Follow BMP (7) Hypokalemia: Plan: up to normal, follow periodically (8) Hypomagnesemia: Plan: 1.7, give 1gm IV mag sulfate Plan: Continue IV abx ID consultation today Admission and Anticipated Discharge Date Admission Date: November 16, 2020 Subjective patient says her wound is fine, changed dressing from Optifoam to ABD with tape eating well no fever, no acute issues appreciate ID consult, stop Zosyn, continue on Vanco, could have used a penicillin but she is allergic WBC 6k, Hb 11, K 3.7, Cr 1.5, Mag 1.7 Review of Systems Review of Systems: All systems reviewed & are unremarkable except as noted in Subjective Physical Exam Constitutional: well developed, well nourished and + obese; no acute distress Neck: trachea midline, no thyromegaly Respiratory: normal respiratory effort, lungs clear to auscultation Cardiovascular: RRR, no murmur, no edema Gastrointestinal (Abdomen): normal bowel sounds, soft, nontender, no hepatosplenomegaly Musculoskeletal: no cyanosis or clubbing, extremities motor strength 5/5 Skin: + wound (left thigh, dressed, no surrounding cellulitis) Psychiatric: A+Ox3, euthymic affect Results & Data Results & Data ([facility]) Vital Signs (Past 12 Hours) Vital Signs Temp Pulse Resp BP Pulse Ox 11/20/20 07:00 36.8 C 65 20 160/72 H 97 Laboratory Results Laboratory Results - last 24 hr 11/19/20 11/19/20 11/20/20 17:30 20:52 07:35 WBC RBC Hgb Hct MCV MCH MCHC RDW Std Deviation RDW Coeff of Saadia Plt Count MPV Immature Gran % (Auto) Neut % (Auto) Lymph % (Auto) [place] % (Auto) Eos % (Auto) Baso % (Auto) Neut # (Auto) Lymph # (Auto) [place] # (Auto) Eos # (Auto) Baso # (Auto) Immature Gran # (Auto) Sodium Potassium Chloride Carbon Dioxide Anion Gap BUN Creatinine Est Cr Clr Drug Dosing Est GFR ( Amer) Est GFR (Non-Af Amer) BUN/Creatinine Ratio Glucose POC Glucose 106 H 89 68 L* Calcium Magnesium Random Vancomycin 11/20/20 11/20/20 11/20/20 07:37 08:19 08:19 WBC 6.80 RBC 4.01 L Hgb 11.0 L Hct 35.3 L MCV 88.0 MCH 27.4 MCHC 31.2 L RDW Std Deviation 47.0 H RDW Coeff of Saadia 14.5 Plt Count 249 MPV 9.2 Immature Gran % (Auto) 1.5 Neut % (Auto) 67.8 Lymph % (Auto) 14.1 [place] % (Auto) 8.4 Eos % (Auto) 8.1 Baso % (Auto) 0.1 Neut # (Auto) 4.61 Lymph # (Auto) 0.96 L [place] # (Auto) 0.57 Eos # (Auto) 0.55 H Baso # (Auto) 0.01 Immature Gran # (Auto) 0.10 H Sodium 143 Potassium 3.7 Chloride 115 H Carbon Dioxide 22 Anion Gap 7.0 BUN 15 Creatinine 1.51 H Est Cr Clr Drug Dosing 37.3 Est GFR ( Amer) 39.1 Est GFR (Non-Af Amer) 33.7 BUN/Creatinine Ratio 9.8 L Glucose 89 POC Glucose 80 Calcium 8.9 Magnesium 1.7 L Random Vancomycin 11/20/20 11/20/20 08:19 13:16 WBC RBC Hgb Hct MCV MCH MCHC RDW Std Deviation RDW Coeff of Saadia Plt Count MPV Immature Gran % (Auto) Neut % (Auto) Lymph % (Auto) [place] % (Auto) Eos % (Auto) Baso % (Auto) Neut # (Auto) Lymph # (Auto) [place] # (Auto) Eos # (Auto) Baso # (Auto) Immature Gran # (Auto) Sodium Potassium Chloride Carbon Dioxide Anion Gap BUN Creatinine Est Cr Clr Drug Dosing Est GFR ( Amer) Est GFR (Non-Af Amer) BUN/Creatinine Ratio Glucose POC Glucose 81 Calcium Magnesium Random Vancomycin 18.0 Medications Administered Current Inpatient Medications Acetaminophen (Acetaminophen 325 Mg Tab) 650 mg PO Q4H PRN PRN Reason: pain or fever Stop: 12/17/20 15:23 Aspirin (Aspirin 81 Mg Ectab) 81 mg PO DAILY [facility] Stop: 12/17/20 08:59 Last Admin: 11/20/20 08:03 Dose: 81 mg Documented by: Dextrose (Dextrose 50% 50 Ml Syringe) 25 - 50 ml IV UD PRN; Protocol PRN Reason: Hypoglycemia Protocol Stop: 12/16/20 20:07 Enoxaparin Sodium (Enoxaparin Inj 60 Mg/0.6 Ml Syr) 50 mg SQ DAILY [facility] Stop: 12/18/20 12:59 Last Admin: 11/20/20 08:08 Dose: 50 mg Documented by: Ferrous Sulfate (Ferrous Sulfate 325 Mg Tab) 325 mg PO TIDM [facility] Stop: 12/16/20 20:07 Last Admin: 11/20/20 12:19 Dose: 325 mg Documented by: Folic Acid (Folic Acid 1 Mg Tab) 1 mg PO QAM [facility] Stop: 12/17/20 08:59 Last Admin: 11/20/20 08:09 Dose: 1 mg Documented by: Glucagon (Glucagon For Inj 1 Mg Vial) 1 mg SQ UD PRN; Protocol PRN Reason: Hypoglycemia Protocol Stop: 12/16/20 20:07 Glucose (Glucose 10 Tabs/Tube) 4 - 8 tabs PO UD PRN; Protocol PRN Reason: Hypoglycemia Protocol Stop: 12/16/20 20:07 Glucose (Glucose 40% Gel 15 Gm Tube) 15 - 30 gm PO UD PRN; Protocol PRN Reason: Hypoglycemia Protocol Stop: 12/16/20 20:07 Hydroxychloroquine Sulfate (Hydroxychloroquine Sulfate 200 Mg Tab) 400 mg PO HS [facility] Stop: 12/16/20 20:59 Last Admin: 11/19/20 20:27 Dose: 400 mg Documented by: Vancomycin HCl 750 mg/ Sodium (Chloride) 265 mls @ 200 mls/hr IV Q24H [facility] Stop: 11/23/20 23:59 Last Infusion: 11/20/20 11:35 Dose: Infused Documented by: Magnesium Sulfate/Dextrose (Magnesium Sulfate / D5w) 1 gm in 100 mls @ 50 mls/hr IV ONE ONE Stop: 11/20/20 16:59 Insulin Aspart (Insulin Aspart 100 Units/Ml 3 Ml Pen) 0 units SC ACHS [facility] Stop: 12/18/20 20:59 Last Admin: 11/20/20 13:16 Dose: Not Given Documented by: Leflunomide (Leflunomide 10 Mg Tab) 10 mg PO DAILY [facility] Stop: 12/17/20 08:59 Last Admin: 11/20/20 08:10 Dose: 10 mg Documented by: Miscellaneous (Gentamicin 0.1 % Ointment -- Order Awaiting Action) 1 ea N/A QS [facility] Stop: 12/17/20 00:00 Last Admin: 11/20/20 08:02 Dose: Not Given Documented by: Miscellaneous (Carbohydrates For Hypoglycemia ) 15 - 30 gm PO UD PRN PRN Reason: Hypoglycemia Protocol Stop: 12/16/20 20:07 Miscellaneous (Desoximetasone 0.25 % Ointment ~ Order Awaiting Action) 1 ea N/A QS [facility] Stop: 12/18/20 15:59 Last Admin: 11/20/20 08:02 Dose: Not Given Documented by: Miscellaneous Information (Vancomycin Consult Active) 1 ea N/A UD PRN PRN Reason: Consult Stop: 12/16/20 20:07 Nystatin (Nystatin Powder 15gm Btl) 1 appln EXT DAILY [facility] Stop: 12/17/20 17:59 Last Admin: 11/20/20 08:13 Dose: 1 appln Documented by: Ondansetron HCl (Ondansetron Inj 2 Mg/Ml 2 Ml Vial) 4 mg IV Q6H PRN PRN Reason: Nausea And Vomiting Stop: 12/20/20 10:06 Oxycodone/Acetaminophen (Oxycodone/Acetaminophen 5mg/325mg Tab) 1 tab PO Q4H PRN PRN Reason: MODERATE Pain (4,5,6) & Pre PT Stop: 12/02/20 11:21 Last Admin: 11/18/20 11:55 Dose: 1 tab Documented by: Oxycodone/Acetaminophen (Oxycodone/Acetaminophen 5mg/325mg Tab) 2 tab PO Q4H PRN PRN Reason: SEVERE Pain (7,8,9,10) Stop: 12/02/20 11:21 Pantoprazole Sodium (Pantoprazole 40 Mg Tab) 40 mg PO DAILY [facility] Stop: 12/17/20 08:59 Last Admin: 11/20/20 08:11 Dose: 40 mg Documented by: Pravastatin Sodium (Pravastatin Sod 20 Mg Tab) 20 mg PO DAILY [facility] Stop: 12/17/20 08:59 Last Admin: 11/20/20 08:11 Dose: 20 mg Documented by: Prednisone (Prednisone 2.5 Mg Tab) 2.5 mg PO DAILY [facility] Stop: 12/17/20 08:59 Last Admin: 11/20/20 08:12 Dose: 2.5 mg Documented by: Zinc Sulfate (Zinc Sulfate 220 Mg Capsule) 220 mg PO DAILY [facility] Stop: 12/17/20 08:59 Last Admin: 11/20/20 08:12 Dose: 220 mg Documented by: PG Care Time/CCT Total # of Minutes Spent Total Time Spent with Patient: Total time spent is greater than 50% in coordination of care (as documented) at patient's floor/unit and/or counseling patient: Coding Level of Care Code 93022 Subseq Hosp Care Lvl 2 Diagnoses Cellulitis of left thigh L03.116 Chronic venous insufficiency I87.2 Venous stasis of both lower extremities I87.8 Edema of left lower leg R60.0 Hypoalbuminemia E88.09 CKD (chronic kidney disease) stage 3, GFR 30-59 ml/min N18.3 Hypokalemia E87.6 Hypomagnesemia E83.42
[2020-11-20] MEDS: HYDROXYCHLOROQUINE SULFATE 200 MG TAB PO SCH (21:50)
[2020-11-21] MEDS: FERROUS SULFATE 325 MG TAB PO SCH ×3 (07:39→17:05)
[2020-11-21] MEDS: ENOXAPARIN INJ 60 MG/0.6 ML SYR SQ SCH (09:07)
[2020-11-21] MEDS: PRAVASTATIN SOD 20 MG TAB PO SCH (09:09)
[2020-11-21] MEDS: ASPIRIN 81 MG ECTAB PO SCH (09:09)
[2020-11-21] MEDS: FOLIC ACID 1 MG TAB PO SCH (09:09)
[2020-11-21] MEDS: LEFLUNOMIDE 10 MG TAB PO SCH (09:09)
[2020-11-21] MEDS: predniSONE 2.5 MG TAB PO SCH (09:09)
[2020-11-21] MEDS: ZINC SULFATE 220 MG CAPSULE PO SCH (09:09)
[2020-11-21] MEDS: PANTOprazole 40 MG TAB PO SCH (09:09)
[2020-11-21] MEDS ORDERED: VANCOMYCIN TROUGH ONE (09:30)
[2020-11-21] MEDS: INSULIN ASPART 100 UNITS/ML 3 ML PEN SC SCH ×2 (10:12→13:06)
[2020-11-21 11:06] LABS: Creatinine Clr Calc Pharmacy 48.1 ml/min; Est GFR (African American) 53.2 ml/min; Est GFR (Non-African American) 45.9 ml/min
[2020-11-21] MEDS: NYSTATIN POWDER 15GM BTL EXT SCH (11:31)
[2020-11-21] MEDS: VANCOMYCIN HCL 750 MG in SODIUM CHLORIDE 0.9% 250 ML IV SCH (11:31)
--- NOTE | 2020-11-21 11:56 | Pharmacy Report ---
Pharmacy Abx Dose Short Note - Date of Service November 21, 2020 - Assessment & Plan Assessment 11/21/20: Patient has completed ~5 days of IV antibiotics. She is afebrile. Renal function improved greatly today. Continue for seven day course (see details below) Background: 74 year old F admitted on 11/16/30 secondary to left thigh cellulitis * Has been receiving Vancomycin and Zosyn since admission * [facility] Infectious Disease consulted and recommended continuing Vancomycin with a transition to orals if possible as well as stopping Zosyn given Pseudomonas aeruginosa is not the target organism. Also recommended a total of 7 days of therapy if wound continues to improve (11/16/20-11/23/20). Recommendations relayed to primary team and accepted. * Zosyn discontinued * MSSA grew in culture which was sensitive to Oxacillin, Bactrim, Daptomycin, and Vancomycin. Unfortunately, patient has allergies to penicillins, cephalosporins and sulfa antibiotics. Therefore, Vancomycin to continue with last day of therapy to be 11/23/20 if wound continues to improve. * Patient remains afebrile and without leukocytosis Plan Vancomycin * Trough level = 15.8 mcg/mL. Although this level is acceptable, I anticipate continued decrease in drug levels as renal function has greatly improved. Predicted AUC is < 400 if current dose is continued. * Will increase to 1000 mg IV q24h starting at 0800 tomorrow Pharmacy will continue to follow and will adjust dose/frequency as necessary. Thank you.
--- NOTE | 2020-11-21 16:41 | Hospitalist Progress Note ---
Date of Service November 21, 2020 Assessment & Plan (1) Cellulitis of left thigh: Plan: 11/21 POD#3 S/p I and D of left thigh abscess, Debridement through skin and subcutaneous muscle and fascia of left thigh and necrotic ulcer WOUND CULTURE: MSSA continue Vanco for total of 7 days per ID, last day would be 11/23, can go home after that no oral options due to numerous allergies pharmacy managing Vanco trough wound care with Aquacell Ag and abd with medipore tape (2) Chronic venous insufficiency: Plan: Currently in wound dressings wound RN consulted no wound vac at this time (3) Venous stasis of both lower extremities: Plan: tubigrip on left, dressing on right maxillofacial prosthetics dentist helping to manage will follow up in wound clinic next week for dressing change (4) Edema of left lower leg: Plan: Follow-up with wound care recommendations chronic lymphedema (5) Hypoalbuminemia: Plan: Chronic protein calorie malnutrition (6) CKD (chronic kidney disease) stage 3, GFR 30-59 ml/min: Plan: Cr around baseline, 1.5 Avoid nephrotoxic agents, renally dose medications as appropriate Follow BMP (7) Hypokalemia: Plan: up to normal, follow periodically (8) Hypomagnesemia: Plan: 1.7, give 1gm IV mag sulfate Plan: Continue IV abx home on Thursday 11/23 Admission and Anticipated Discharge Date Admission Date: November 16, 2020 Subjective patient doing reasonably well appreciate ID consult, only need 7 days of antibiotics which will be 11/23, Thursday patient is pleased with this news asking for regular diet, as she is not a diabetic will ask RN to change abd today did will with therapy, safe to return home once Vanco is done Review of Systems Review of Systems: All systems reviewed & are unremarkable except as noted in Subjective Integumentary: + wounds (left thigh) Physical Exam Constitutional: well developed, well nourished and + obese; no acute distress Neck: trachea midline, no thyromegaly Respiratory: normal respiratory effort, lungs clear to auscultation Cardiovascular: RRR, no murmur, no edema Gastrointestinal (Abdomen): normal bowel sounds, soft, nontender, no h epatosplenomegaly Musculoskeletal: no cyanosis or clubbing, extremities motor strength 5/5 Skin: + wound (left thigh, dressed, no surrounding cellulitis) Psychiatric: A+Ox3, euthymic affect Results & Data Results & Data ([facility]) Vital Signs (Past 12 Hours) Vital Signs Temp Pulse Resp BP BP Pulse Ox 11/21/20 15:31 36.6 C 80 16 158/82 H 97 11/21/20 07:34 36.6 C 70 18 159/83 H 96 Laboratory Results Laboratory Results - last 24 hr 11/21/20 11/21/20 11/21/20 10:13 10:13 12:08 Creatinine 1.17 D Est Cr Clr Drug Dosing 48.1 Est GFR ( Amer) 53.2 Est GFR (Non-Af Amer) 45.9 POC Glucose 101 H Vancomycin Trough 15.8 Medications Administered Current Inpatient Medications Acetaminophen (Acetaminophen 325 Mg Tab) 650 mg PO Q4H PRN PRN Reason: pain or fever Stop: 12/17/20 15:23 Aspirin (Aspirin 81 Mg Ectab) 81 mg PO DAILY [facility] Stop: 12/17/20 08:59 Last Admin: 11/21/20 09:09 Dose: 81 mg Documented by: Dextrose (Dextrose 50% 50 Ml Syringe) 25 - 50 ml IV UD PRN; Protocol PRN Reason: Hypoglycemia Protocol Stop: 12/16/20 20:07 Enoxaparin Sodium (Enoxaparin Inj 60 Mg/0.6 Ml Syr) 50 mg SQ DAILY [facility] Stop: 12/18/20 12:59 Last Admin: 11/21/20 09:07 Dose: 50 mg Documented by: Ferrous Sulfate (Ferrous Sulfate 325 Mg Tab) 325 mg PO TIDM [facility] Stop: 12/16/20 20:07 Last Admin: 11/21/20 17:05 Dose: 325 mg Documented by: Folic Acid (Folic Acid 1 Mg Tab) 1 mg PO QAM [facility] Stop: 12/17/20 08:59 Last Admin: 11/21/20 09:09 Dose: 1 mg Documented by: Glucagon (Glucagon For Inj 1 Mg Vial) 1 mg SQ UD PRN; Protocol PRN Reason: Hypoglycemia Protocol Stop: 12/16/20 20:07 Glucose (Glucose 10 Tabs/Tube) 4 - 8 tabs PO UD PRN; Protocol PRN Reason: Hypoglycemia Protocol Stop: 12/16/20 20:07 Glucose (Glucose 40% Gel 15 Gm Tube) 15 - 30 gm PO UD PRN; Protocol PRN Reason: Hypoglycemia Protocol Stop: 12/16/20 20:07 Hydroxychloroquine Sulfate (Hydroxychloroquine Sulfate 200 Mg Tab) 400 mg PO HS [facility] Stop: 12/16/20 20:59 Last Admin: 11/21/20 20:49 Dose: 400 mg Documented by: Vancomycin HCl 1,000 mg/ (Sodium Chloride) 270 mls @ 200 mls/hr IV Q24H [facility] Stop: 11/23/20 23:59 Leflunomide (Leflunomide 10 Mg Tab) 10 mg PO DAILY [facility] Stop: 12/17/20 08:59 Last Admin: 11/21/20 09:09 Dose: 10 mg Documented by: Miscellaneous (Gentamicin 0.1 % Ointment -- Order Awaiting Action) 1 ea N/A QS [facility] Stop: 12/17/20 00:00 Last Admin: 11/20/20 08:02 Dose: Not Given Documented by: Miscellaneous (Carbohydrates For Hypoglycemia ) 15 - 30 gm PO UD PRN PRN Reason: Hypoglycemia Protocol Stop: 12/16/20 20:07 Miscellaneous (Desoximetasone 0.25 % Ointment ~ Order Awaiting Action) 1 ea N/A QS [facility] Stop: 12/18/20 15:59 Last Admin: 11/20/20 08:02 Dose: Not Given Documented by: Miscellaneous Information (Vancomycin Consult Active) 1 ea N/A UD PRN PRN Reason: Consult Stop: 12/16/20 20:07 Nystatin (Nystatin Powder 15gm Btl) 1 appln EXT DAILY [facility] Stop: 12/17/20 17:59 Last Admin: 11/21/20 11:31 Dose: 1 appln Documented by: Ondansetron HCl (Ondansetron Inj 2 Mg/Ml 2 Ml Vial) 4 mg IV Q6H PRN PRN Reason: Nausea And Vomiting Stop: 12/20/20 10:06 Oxycodone/Acetaminophen (Oxycodone/Acetaminophen 5mg/325mg Tab) 1 tab PO Q4H PRN PRN Reason: MODERATE Pain (4,5,6) & Pre PT Stop: 12/02/20 11:21 Last Admin: 11/18/20 11:55 Dose: 1 tab Documented by: Oxycodone/Acetaminophen (Oxycodone/Acetaminophen 5mg/325mg Tab) 2 tab PO Q4H PRN PRN Reason: SEVERE Pain (7,8,9,10) Stop: 12/02/20 11:21 Pantoprazole Sodium (Pantoprazole 40 Mg Tab) 40 mg PO DAILY [facility] Stop: 12/17/20 08:59 Last Admin: 11/21/20 09:09 Dose: 40 mg Documented by: Pravastatin Sodium (Pravastatin Sod 20 Mg Tab) 20 mg PO DAILY [facility] Stop: 12/17/20 08:59 Last Admin: 11/21/20 09:09 Dose: 20 mg Documented by: Prednisone (Prednisone 2.5 Mg Tab) 2.5 mg PO DAILY [facility] Stop: 12/17/20 08:59 Last Admin: 11/21/20 09:09 Dose: 2.5 mg Documented by: Zinc Sulfate (Zinc Sulfate 220 Mg Capsule) 220 mg PO DAILY [facility] Stop: 12/17/20 08:59 Last Admin: 11/21/20 09:09 Dose: 220 mg Documented by: PG Care Time/CCT Total # of Minutes Spent Total Time Spent with Patient: Total time spent is greater than 50% in coordination of care (as documented) at patient's floor/unit and/or counseling patient: Coding Level of Care Code 67864 Subseq Hosp Care Lvl 2 Diagnoses Cellulitis of left thigh L03.116 Chronic venous insufficiency I87.2 Venous stasis of both lower extremities I87.8 Edema of left lower leg R60.0 Hypoalbuminemia E88.09 CKD (chronic kidney disease) stage 3, GFR 30-59 ml/min N18.3 Hypokalemia E87.6 Hypomagnesemia E83.42
[2020-11-21] MEDS: HYDROXYCHLOROQUINE SULFATE 200 MG TAB PO SCH (20:49)
[2020-11-22 08:05] LABS: Creatinine Clr Calc Pharmacy 50.6 ml/min; Est GFR (African American) 59.2 ml/min; Est GFR (Non-African American) 51.1 ml/min
[2020-11-22] MEDS: VANCOMYCIN HCL 1,000 MG in SODIUM CHLORIDE 0.9% 250 ML IV SCH (09:07)
[2020-11-22] MEDS: ENOXAPARIN INJ 60 MG/0.6 ML SYR SQ SCH (09:11)
[2020-11-22] MEDS: predniSONE 2.5 MG TAB PO SCH (09:12)
[2020-11-22] MEDS: ASPIRIN 81 MG ECTAB PO SCH (09:12)
[2020-11-22] MEDS: PANTOprazole 40 MG TAB PO SCH (09:12)
[2020-11-22] MEDS: PRAVASTATIN SOD 20 MG TAB PO SCH (09:12)
[2020-11-22] MEDS: FERROUS SULFATE 325 MG TAB PO SCH ×3 (09:12→16:45)
[2020-11-22] MEDS: FOLIC ACID 1 MG TAB PO SCH (09:12)
[2020-11-22] MEDS: ZINC SULFATE 220 MG CAPSULE PO SCH (09:12)
[2020-11-22] MEDS: LEFLUNOMIDE 10 MG TAB PO SCH (09:12)
[2020-11-22] MEDS: NYSTATIN POWDER 15GM BTL EXT SCH (09:15)
--- NOTE | 2020-11-22 09:35 | Hospitalist Progress Note ---
Date of Service November 22, 2020 Assessment & Plan (1) Cellulitis of left thigh: Plan: 11/22 POD#4 S/p I and D of left thigh abscess, Debridement through skin and subcutaneous muscle and fascia of left thigh and necrotic ulcer WOUND CULTURE: MSSA continue Vanco for total of 7 days per ID, last day would be 11/23, can go home after that (tomorrow afternoon) no oral options due to numerous allergies pharmacy managing Vanco trough wound care with Aquacell Ag and abd with medipore tape, can be changed every other day (2) Chronic venous insufficiency: Plan: Currently in wound dressings wound RN consulted no wound vac at this time (3) Venous stasis of both lower extremities: Plan: tubigrip on left, dressing on right door maker helping to manage will follow up in wound clinic next week for dressing change (4) Edema of left lower leg: Plan: Follow-up with wound care recommendations chronic lymphedema wraps every week (5) Hypoalbuminemia: Plan: Chronic protein calorie malnutrition regular diet, pushing protein with yogurt, help with wound healing (6) CKD (chronic kidney disease) stage 3, GFR 30-59 ml/min: Plan: Cr is 1.07 today while on Vancomycin Avoid nephrotoxic agents, renally dose medications as appropriate Follow BMP (7) Hypokalemia: Plan: check tomorrow (8) Hypomagnesemia: Plan: check tomorrow Plan: Continue IV abx home on Thursday 11/23 Admission and Anticipated Discharge Date Admission Date: November 16, 2020 Subjective patient doing well, she is pleased with her increased food options no pain in legs, breathing well, no fever ambulating to the bathroom discussed plan to go home tomorrow after Vancomycin, she is excited CM will help with transportation and home health wound was dressed yesterday by burlap man of Systems Review of Systems: All systems reviewed & are unremarkable except as noted in Subjective Physical Exam Constitutional: well developed, well nourished and + obese; no acute distress Neck: trachea midline, no thyromegaly Respiratory: normal respiratory effort, lungs clear to auscultation Cardiovascular: RRR, no murmur, no edema Gastrointestinal (Abdomen): normal bowel sounds, soft, nontender, no hepatosplenomegaly Musculoskeletal: no cyanosis or clubbing, extremities motor strength 5/5 Skin: + wound (left thigh, dressed, no surrounding cellulitis) Psychiatric: A+Ox3, euthymic affect Results & Data Results & Data ([facility]) Vital Signs (Past 12 Hours) Vital Signs Temp Pulse Pulse Resp BP BP Pulse Ox 11/22/20 08:00 36.5 C 67 18 168/80 H 96 11/21/20 22:28 36.9 C 77 16 171/80 H 97 Laboratory Results Laboratory Results - last 24 hr 11/21/20 11/21/20 11/21/20 10:13 10:13 12:08 Creatinine 1.17 D Est Cr Clr Drug Dosing 48.1 Est GFR ( Amer) 53.2 Est GFR (Non-Af Amer) 45.9 POC Glucose 101 H Vancomycin Trough 15.8 11/22/20 07:07 Creatinine 1.07 Est Cr Clr Drug Dosing 50.6 Est GFR ( Amer) 59.2 Est GFR (Non-Af Amer) 51.1 POC Glucose Vancomycin Trough Medications Administered Current Inpatient Medications Acetaminophen (Acetaminophen 325 Mg Tab) 650 mg PO Q4H PRN PRN Reason: pain or fever Stop: 12/17/20 15:23 Aspirin (Aspirin 81 Mg Ectab) 81 mg PO DAILY [facility] Stop: 12/17/20 08:59 Last Admin: 11/22/20 09:12 Dose: 81 mg Documented by: Dextrose (Dextrose 50% 50 Ml Syringe) 25 - 50 ml IV UD PRN; Protocol PRN Reason: Hypoglycemia Protocol Stop: 12/16/20 20:07 Enoxaparin Sodium (Enoxaparin Inj 60 Mg/0.6 Ml Syr) 50 mg SQ DAILY [facility] Stop: 12/18/20 12:59 Last Admin: 11/22/20 09:11 Dose: 50 mg Documented by: Ferrous Sulfate (Ferrous Sulfate 325 Mg Tab) 325 mg PO TIDM [facility] Stop: 12/16/20 20:07 Last Admin: 11/22/20 09:12 Dose: 325 mg Documented by: Folic Acid (Folic Acid 1 Mg Tab) 1 mg PO QAM [facility] Stop: 12/17/20 08:59 Last Admin: 11/22/20 09:12 Dose: 1 mg Documented by: Glucagon (Glucagon For Inj 1 Mg Vial) 1 mg SQ UD PRN; Protocol PRN Reason: Hypoglycemia Protocol Stop: 12/16/20 20:07 Glucose (Glucose 10 Tabs/Tube) 4 - 8 tabs PO UD PRN; Protocol PRN Reason: Hypoglycemia Protocol Stop: 12/16/20 20:07 Glucose (Glucose 40% Gel 15 Gm Tube) 15 - 30 gm PO UD PRN; Protocol PRN Reason: Hypoglycemia Protocol Stop: 12/16/20 20:07 Hydroxychloroquine Sulfate (Hydroxychloroquine Sulfate 200 Mg Tab) 400 mg PO HS [facility] Stop: 12/16/20 20:59 Last Admin: 11/21/20 20:49 Dose: 400 mg Documented by: Vancomycin HCl 1,000 mg/ (Sodium Chloride) 270 mls @ 200 mls/hr IV Q24H [facility] Stop: 11/23/20 23:59 Last Admin: 11/22/20 09:07 Dose: 200 mls/hr Documented by: Leflunomide (Leflunomide 10 Mg Tab) 10 mg PO DAILY [facility] Stop: 12/17/20 08:59 Last Admin: 11/22/20 09:12 Dose: 10 mg Documented by: Miscellaneous (Gentamicin 0.1 % Ointment -- Order Awaiting Action) 1 ea N/A QS [facility] Stop: 12/17/20 00:00 Last Admin: 11/20/20 08:02 Dose: Not Given Documented by: Miscellaneous (Carbohydrates For Hypoglycemia ) 15 - 30 gm PO UD PRN PRN Reason: Hypoglycemia Protocol Stop: 12/16/20 20:07 Miscellaneous (Desoximetasone 0.25 % Ointment ~ Order Awaiting Action) 1 ea N/A QS [facility] Stop: 12/18/20 15:59 Last Admin: 11/20/20 08:02 Dose: Not Given Documented by: Miscellaneous Information (Vancomycin Consult Active) 1 ea N/A UD PRN PRN Reason: Consult Stop: 11/23/20 23:59 Nystatin (Nystatin Powder 15gm Btl) 1 appln EXT DAILY [facility] Stop: 12/17/20 17:59 Last Admin: 11/22/20 09:15 Dose: 1 appln Documented by: Ondansetron HCl (Ondansetron Inj 2 Mg/Ml 2 Ml Vial) 4 mg IV Q6H PRN PRN Reason: Nausea And Vomiting Stop: 12/20/20 10:06 Oxycodone/Acetaminophen (Oxycodone/Acetaminophen 5mg/325mg Tab) 1 tab PO Q4H PRN PRN Reason: MODERATE Pain (4,5,6) & Pre PT Stop: 12/02/20 11:21 Last Admin: 11/18/20 11:55 Dose: 1 tab Documented by: Oxycodone/Acetaminophen (Oxycodone/Acetaminophen 5mg/325mg Tab) 2 tab PO Q4H PRN PRN Reason: SEVERE Pain (7,8,9,10) Stop: 12/02/20 11:21 Pantoprazole Sodium (Pantoprazole 40 Mg Tab) 40 mg PO DAILY [facility] Stop: 12/17/20 08:59 Last Admin: 11/22/20 09:12 Dose: 40 mg Documented by: Pravastatin Sodium (Pravastatin Sod 20 Mg Tab) 20 mg PO DAILY [facility] Stop: 12/17/20 08:59 Last Admin: 11/22/20 09:12 Dose: 20 mg Documented by: Prednisone (Prednisone 2.5 Mg Tab) 2.5 mg PO DAILY [facility] Stop: 12/17/20 08:59 Last Admin: 11/22/20 09:12 Dose: 2.5 mg Documented by: Zinc Sulfate (Zinc Sulfate 220 Mg Capsule) 220 mg PO DAILY [facility] Stop: 12/17/20 08:59 Last Admin: 11/22/20 09:12 Dose: 220 mg Documented by: PG Care Time/CCT Total # of Minutes Spent Total Time Spent with Patient: Total time spent is greater than 50% in coordination of care (as documented) at patient's floor/unit and/or counseling patient: Coding Level of Care Code 27806 Subseq Hosp Care Lvl 2 Diagnoses Cellulitis of left thigh L03.116 Chronic venous insufficiency I87.2 Venous stasis of both lower extremities I87.8 Edema of left lower leg R60.0 Hypoalbuminemia E88.09 CKD (chronic kidney disease) stage 3, GFR 30-59 ml/min N18.3 Hypokalemia E87.6 Hypomagnesemia E83.42
[2020-11-22] MEDS: HYDROXYCHLOROQUINE SULFATE 200 MG TAB PO SCH (21:28)
[2020-11-23 06:38] LABS: Hematocrit (blood only) 32.3 % (37-47); Mean Corpuscular Hemoglobin 27.3 pg (25-34); Mean Corpuscular Volume 88.3 fL (80-100); Mean Platelet Volume 9.6 fL (7.4-10.4); Platelet Count 272 K/uL (130-400); RDW Coefficient of Variation 14.4 % (11.5-14.5); RDW Standard Deviation 46.5 fL (36.4-46.3); Red Blood Count 3.66 M/uL (4.2-5.4); White Blood Count 6.12 K/uL (4.8-10.8)
[2020-11-23 07:06] LABS: Calcium 8.6 mg/dl (8.5-10.1); Creatinine Clr Calc Pharmacy 49.7 ml/min; Est GFR (African American) 57.9 ml/min; Magnesium 1.8 mg/dl (1.8-2.4); Potassium 3.6 mmol/L (3.5-5.1)
[2020-11-23] MEDS: VANCOMYCIN HCL 1,000 MG in SODIUM CHLORIDE 0.9% 250 ML IV SCH (08:20)
[2020-11-23] MEDS: predniSONE 2.5 MG TAB PO SCH (08:28)
[2020-11-23] MEDS: ASPIRIN 81 MG ECTAB PO SCH (08:28)
[2020-11-23] MEDS: FOLIC ACID 1 MG TAB PO SCH (08:28)
[2020-11-23] MEDS: FERROUS SULFATE 325 MG TAB PO SCH ×2 (08:28→12:25)
[2020-11-23] MEDS: PRAVASTATIN SOD 20 MG TAB PO SCH (08:28)
[2020-11-23] MEDS: LEFLUNOMIDE 10 MG TAB PO SCH (08:28)
[2020-11-23] MEDS: ENOXAPARIN INJ 60 MG/0.6 ML SYR SQ SCH (08:29)
[2020-11-23] MEDS: PANTOprazole 40 MG TAB PO SCH (08:29)
[2020-11-23] MEDS: ZINC SULFATE 220 MG CAPSULE PO SCH (08:29)
[2020-11-23] MEDS: NYSTATIN POWDER 15GM BTL EXT SCH (08:30)
--- NOTE | 2020-11-23 13:06 | Discharge Summary ---
Date of Service November 23, 2020 Admission HPI Per Admitting Provider Patient is a 74-year-old female with a significant past medical history of rheumatoid arthritis who presents with a worsening lesion on the inner portion of her left thigh. She reports that it was worse after an ultrasound on Thursday which is 4 days prior. She denies fevers chills there is increasing redness in the area. She was seen by her primary care doctor who started her on doxycycline. She denies chest pain or shortness of breath. Principal Diagnosis Left thigh abscess, MSSA, surrounding cellulitis Discharge Exam Constitutional well developed, well nourished and + obese; no acute distress Neck trachea midline, no thyromegaly Respiratory normal respiratory effort, lungs clear to auscultation Cardiovascular RRR, no murmur, no edema Gastrointestinal (Abdomen) normal bowel sounds, soft, nontender, no hepatosplenomegaly Musculoskeletal no cyanosis or clubbing, extremities motor strength 5/5 Skin + wound (left thigh, dressed, no surrounding cellulitis) Psychiatric A+Ox3, euthymic affect Discharge Data Allergies Allergy/AdvReac Type Severity Reaction Status Date / Time cefadroxil Allergy Intermediate Rash Verified 11/16/20 16:34 cefepime Allergy Unknown Unknown Verified 11/16/20 16:34 cephalexin [From Keflex] Allergy Unknown Unknown Verified 11/16/20 16:34 Sulfa (Sulfonamide Allergy Unknown RASH Verified 11/16/20 16:34 Antibiotics) amoxicillin [From Augmentin] Allergy Rash Verified 11/16/20 16:36 clavulanic acid Allergy Rash Verified 11/16/20 16:36 [From Augmentin] oxycodone AdvReac Unknown NAUSEA Verified 11/16/20 16:34 Consultations 11/16/20 16:01 ED Decision to Admit Stat 11/17/20 08:14 Consult General Surgery Routine 11/17/20 10:14 Consult Infectious Diseases Routine Procedures Performed Operation Date: 11/18/20 12:30 Actual Procedures p Incision and Drainage with Debridement of Left Thigh Abscess(Left) - Jay George MD Hospital Course (1) Cellulitis of left thigh: POD#5 S/p I and D of left thigh abscess, Debridement through skin and subcutaneous muscle and fascia of left thigh and necrotic ulcer WOUND CULTURE: MSSA continue Vanco for total of 7 days per ID, last day would be 11/23, can go home today no oral options due to numerous allergies, she can take Doxycycline but the MSSA was resistant wound care with Aquacell Ag and abd with medipore tape, can be changed every other day follow up with wound clinic this next week home health visits (2) Chronic venous insufficiency: gets legs wrapped, Tubigrip on left and right is wrapped follow up with wound clinic this week (3) Venous stasis of both lower extremities: tubigrip on left, dressing on right helpdesk technician helping to manage will follow up in wound clinic next week for dressing change (4) Edema of left lower leg: Follow-up with wound care recommendations chronic lymphedema wraps every week (5) Hypoalbuminemia: Chronic protein calorie malnutrition regular diet, pushing protein with yogurt, help with wound healing (6) CKD (chronic kidney disease) stage 3, GFR 30-59 ml/min: Cr is 1.07 while on Vancomycin Avoid nephrotoxic agents, renally dose medications as appropriate Follow BMP (7) Hypokalemia: check tomorrow (8) Hypomagnesemia: check tomorrow Continue IV abx home on Thursday 11/23 I certify that this patient is under my care and that I, or a physicians early childhood assistant working with me, had a face to-face encounter that meets the home health [id number] encounter requirements with this patient. The encounter with the patient was in whole, or in part, for the following medical condition, which is the primary reason for home health care (list medical condition): celluities L leg - wound I certify that, based on my findings, the following services are medically necessary home health services: My clinical findings support the need for the above services because: Skilled Nsg Assessment Surgical Incision / Wound Further, I certify that my clinical findings support that this patient is homebound (i.e. absences from home require considerable and taxing effort and are for medical reasons or worship services or infrequently or of short duration when for other reasons) because: Supportive Aid - Walker Certification for Home Health Services: Based on the above findings, I certify that this patient is confined to the home and needs intermittent group home care, physical therapy and/or speech therapy or continues to need occupational therapy. The patient is under my care, and I have initiated the establishment of the plan of care. This patient will be followed by a physician who will periodically review the plan of care. Total Time Total Time Spent Total Time Spent (In Minutes): 31 Total Time Includes: Examination of the Patient, Discharge Planning, Medication Reconciliation and Communication With Other Providers Discharge Plan Discharge Items Patient Disposition: Home - Home Health Services Reason For Visit: CELLULITIS Discharge Diagnosis: Left thigh cellulitis/abscess, MSSA Condition on Discharge: Good Goals: follow up with wound clinic Activity: Resume your previous activity Weightbearing: Full weightbearing Non-emergency contact: Primary Care Provider Call non-emergency contact if: you have any medication questions, your symptoms worsen and you have a fever Follow-up/Referrals: Svetlana Rosales CRNP [Primary Care Provider] - 11/27/20 11:10 am Diet: Regular Diet Comment: eat lots of protein Addtl Attending Provider Instructions: Medications: added supplements with Zinc and Folic acid for immune health, healing focus on eating more protein Left thigh abscess, incised and drained, completed 7 days of Vancomycin, no further treatment per infectious disease wound care: Aquacel AG with ABD and medipore tape every other day, can be more often as needed follow up with wound clinic next week Pending Studies at Discharge: No Stand-Alone Forms: My [facility], Smoking Cessation Medications and DC Order Prescriptions: New folic acid 1 mg Tablet 1 mg PO QAM 30 Days Qty: 30 RF: 1 zinc sulfate [Orazinc] 50 mg zinc (220 mg) Capsule 220 mg PO DAILY 30 Days Qty: 132 RF: 0 Continued pravastatin 20 mg tablet 20 mg PO DAILY RF: 0 nystatin 100,000 unit/gram powder 1 applic topical DAILY Qty: 30 RF: 1 leflunomide 10 mg tablet 10 mg PO DAILY RF: 0 desoximetasone 0.25 % ointment 1 applic topical DAILY PRN (Reason: skin irritation) Qty: 100 RF: 2 gentamicin 0.1 % ointment 1 applic topical DAILY 14 Days Qty: 30 RF: 1 hydroxychloroquine 200 mg tablet 400 mg PO DAILY RF: 0 aspirin 81 mg tablet,delayed release (DR/EC) 81 mg PO DAILY Qty: 30 RF: 0 prednisone 5 mg tablet 5 - 7.5 mg PO DAILY RF: 0 Discontinued doxycycline hyclate 100 mg tablet 100 mg PO bid 14 Days Qty: 28 RF: 0 Discharge Orders: Discharge Order (Routine); Ordered 11/23/20 Ordered By: Angel Willingham Admission Data Admit Date/Time: 11/16/20 16:00 Attending Provider: Angel Willingham Admit Provider: Galina Cleaning Primary Care Provider: Svetlana Rosales Other Providers: Shant Peter ; Dominick Reyes ; Kori Garcia ; Edgar Escamilla I. ; Wilfredo Carbajal II ; Haley Strong ; Rocael Quinonez ; Miky Ying ; [facility] Other Interventions: Discharge Summary Assessment (RN) Last Done: 11/23/20 12:31 Coding Level of Care Code D/C DAY MANAGEMENT >30 MINS Diagnoses Cellulitis of left thigh L03.116 Chronic venous insufficiency I87.2 Venous stasis of both lower extremities I87.8 Edema of left lower leg R60.0 Hypoalbuminemia E88.09 CKD (chronic kidney disease) stage 3, GFR 30-59 ml/min N18.3 Hypokalemia E87.6 Hypomagnesemia E83.42
== END 2020-11-23 15:14 | disposition home health service (06) | DRG 571 ==
LOC: ED 12:06 → SUATTDRO 16:00 → 3N 16:00

== ENCOUNTER 2020-12-03 12:21 | Observation (INO) ==
[2020-12-03] MEDS ORDERED: levoFLOXacin/D5W 750 MG/150 ML BAG IV STA (13:32)
--- NOTE | 2020-12-03 13:56 | XRay Report ---
XR chest 1V portable HISTORY: Sepsis COMPARISON: Chest 10/14/2019. FINDINGS: There are low lung volumes. The heart remains mildly enlarged. Mild diffuse interstitial th ickening, unchanged. This is likely chronic. No new focal lung consolidations to suggest pneumonia. N o evidence for pulmonary edema. There are old, healed right-sided rib fractures. IMPRESSION: Chronic changes as described above. No focal lung consolidations to suggest pneumonia. ACT 112: Negative or not required by law. Electronically signed by: Grabiel Varela M.D. 12/03/2020 1:55 PM
[2020-12-03 13:57] LABS: Partial Thromboplastin Ratio 0.8; Partial Thromboplastin Time 22.1 Seconds (21.0-31.0); Prothrombin Time 10.1 Seconds (9.0-12.0)
[2020-12-03 13:58] LABS: Basophils # (auto) 0.05 K/uL (0-0.2); Basophils % (auto) 0.6 %; Eosinophils # (auto) 0.66 K/uL (0-0.5); Eosinophils % (auto) 7.7 %; Hemoglobin 11.3 g/dL (12.0-16.0); Immature Granulocytes # (auto) 0.02 K/uL (0.00-0.02); Immature Granulocytes % (auto) 0.2 %; Lymphocytes # (auto) 0.97 K/uL (1.2-3.4); Lymphocytes % (auto) 11.3 %; Mean Corpuscular Hemoglobin 27.2 pg (25-34); Mean Corpuscular Hgb Conc 30.5 g/dL (32-36); Mean Corpuscular Volume 89.2 fL (80-100); Mean Platelet Volume 9.8 fL (7.4-10.4); Monocytes # (auto) 0.53 K/uL (0.11-0.59); Monocytes % (auto) 6.2 %; Neutrophils # (auto) 6.32 K/uL (1.4-6.5); Platelet Count 218 K/uL (130-400); RDW Coefficient of Variation 14.9 % (11.5-14.5); RDW Standard Deviation 48.8 fL (36.4-46.3); Red Blood Count 4.15 M/uL (4.2-5.4); White Blood Count 8.55 K/uL (4.8-10.8)
[2020-12-03 14:13] LABS: Alanine Aminotransferase 34 U/L (12-78); Albumin Level 2.8 gm/dl (3.4-5.0); Aspartate Aminotransferase 30 U/L (15-37); BUN Creatinine Ratio 16.4 (10-20); Blood Urea Nitrogen 20 mg/dl (7-18); Carbon Dioxide 26 mmol/L (21-32); Chloride 116 mmol/L (98-107); Creatinine Clr Calc Pharmacy 44.4 ml/min; Est GFR (Non-African American) 43.2 ml/min; Glucose 101 mg/dl (70-99); Magnesium 2.1 mg/dl (1.8-2.4); Potassium 3.5 mmol/L (3.5-5.1); Sodium 146 mmol/L (136-145)
[2020-12-03 14:18] LABS: Albumin Globulin Ratio 0.9 (0.9-2); Alkaline Phosphatase 351 U/L (45-117); Bilirubin,Total 0.4 mg/dl (0.2-1); Globulin 3.2 gm/dl (2.5-4.0); Troponin I < 0.015 ng/ml (0-0.045)
--- NOTE | 2020-12-03 14:19 | Emergency Department Note ---
History of Present Illness General Chief complaint: Infection, Wound Time Seen by Provider: 12/03/20 13:20 History of Present Illness This is a 74-year-old female who presents to the ED with a chief complaint of a left inner thigh infection with a positive wound culture for Pseudomonas. The patient was sent here by her gas specialist for admission for IV antibiotics. They called her today with the culture results and told her to come to the ER to be admitted for IV antibiotics. The patient has had the wound for a long time. She denies any fevers. No nausea or vomiting. No additional complaints at this time. Home Medications Medication Instructions Recorded Confirmed Type hydroxychloroquine 200 mg tablet 400 mg PO DAILY 08/06/18 11/16/20 History aspirin 81 mg tablet,delayed 81 mg PO DAILY #30 tab 10/29/19 11/16/20 Rx release pravastatin 20 mg tablet 20 mg PO DAILY 03/09/20 11/16/20 History nystatin 100,000 unit/gram topical 1 applic TOPICAL DAILY #30 g 05/25/20 11/16/20 Rx powder leflunomide 10 mg tablet 10 mg PO DAILY 07/10/20 11/16/20 History desoximetasone 0.25 % topical 1 applic TOPICAL DAILY PRN #100 g 08/20/20 11/16/20 Rx ointment prednisone 5 mg tablet 5 - 7.5 mg PO DAILY 11/16/20 11/30/20 History folic acid 1 mg tablet 1 mg PO QAM 30 Days #30 tab 11/23/20 11/30/20 Rx zinc sulfate 50 mg zinc (220 mg) 220 mg PO DAILY 30 Days #132 cap 11/23/20 11/30/20 Rx capsule (Orazinc) gentamicin 0.1 % topical ointment 1 applic TOPICAL DAILY 14 Days #30 12/03/20 Rx g Allergies Allergy/AdvReac Type Severity Reaction Status Date / Time cefadroxil Allergy Intermediate Rash Verified 11/30/20 11:01 cefepime Allergy Unknown Unknown Verified 11/30/20 11:01 cephalexin [From Keflex] Allergy Unknown Unknown Verified 11/30/20 11:01 Sulfa (Sulfonamide Allergy Unknown RASH Verified 11/30/20 11:01 Antibiotics) amoxicillin [From Augmentin] Allergy Rash Verified 11/30/20 11:01 clavulanic acid Allergy Rash Verified 11/30/20 11:01 [From Augmentin] oxycodone AdvReac Unknown NAUSEA Verified 11/30/20 11:01 Past Med/Surg History Medical History Anemia Bacterial infection due to Serratia Cancer MELANOMA Cellulitis BILATERAL LEGS AND FEET, INPATIENT [facility] (JULY 2018) Cellulitis of left thigh Chronic steroid use CKD (chronic kidney disease) stage 3, GFR 30-59 ml/min Folate deficiency Fracture of sacrum BILATERAL. ~2016, PHYSICAL THERAPY. USES WALKER HLD (hyperlipidemia) HTN (hypertension) No blood products PER PATIENT REQUEST Obesity Pneumonia AUGUST 2017 Pressure ulcer of upper thigh Rheumatoid arthritis Septic shock Surgical History History of cataract surgery BILATERAL History of colonoscopy History of surgical removal of skin lesion BACK History of total hip replacement RIGHT S/P debridement (11/29/19) Right Thigh wound debridement, sharp, greater than [address] 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 Feels Safe at Home: Yes Assistive Devices: Glasses, Special Shoe and Walker Review of Systems A total of 10 systems reviewed and were otherwise negative Physical Exam Vital Signs Vital Signs - 24 hr 12/03/20 12:32 12/03/20 13:30 12/03/20 13:49 Temperature 36.9 C Temperature Source Oral Pulse Rate 79 66 Pulse Rate from SpO2 Sensor 66 Respiratory Rate 18 21 Blood Pressure 140/83 170/122 H Blood Pressure Mean 102 138 Pulse Oximetry 98 98 99 Oxygen Delivery Method Room Air Sepsis Recent Fever Within 48 Hours No Sepsis New/Unexplained Change in Mental Status No Sepsis Action Taken by Nursing No Action Required CONSTITUTIONAL/VITAL SIGNS: Reviewed / noted above. GENERAL: Non-toxic in appearance. INTEGUMENTARY: Warm, dry, and [place]. HEAD: Normocephalic. EYES: without scleral icterus or trauma. ENT/OROPHARYNX: clear and moist. LYMPHADENOPATHY/NECK: Is supple without lymphadenopathy or meningismus. RESPIRATORY: Clear to auscultation bilaterally. No increased work of breathing. CARDIOVASCULAR: Regular rate and rhythm. GI/ABDOMEN: Soft and nontender. No organomegaly or pulsatile mass. EXTREMITIES: Warm and well perfused. There is a palm-sized wound to the left inner thigh that is open. There is erythema noted in the bilateral inner thighs. BACK: No CVA tenderness. NEUROLOGICAL: Intact without focal deficits. PSYCHIATRIC: normal affect. MUSCULOSKELETAL: Normally developed with good muscle tone. TRIAGE NURSING DOCUMENTATION REVIEWED. Course Administered Medications Levofloxacin/Dextrose (Levaquin/D5w) 750 mg in 150 mls @ 100 mls/hr IV NOW STA Stop: 12/03/20 15:01 Last Admin: 12/03/20 13:46 Dose: 100 mls/hr Documented by: Rico Medical Decision Making Differential Diagnosis Cellulitis, abscess, MRSA infection, DVT, necrotizing fasciitis, dermatitis, drug eruption, allergic reaction, as well as other pathologies. Medical Records Attestation: I reviewed the patient's medical records. Home Medications Current Medication List: was personally reviewed by me Laboratory Data Attestation: I reviewed the patient's lab results. Result diagrams: 12/03/20 13:27 12/03/20 13:27 Lab Results 12/03/20 12/03/20 12/03/20 Range/Units 13:27 13:27 13:27 WBC 8.55 (4.8-10.8) K/uL RBC 4.15 L (4.2-5.4) M/uL Hgb 11.3 L (12.0-16.0) g/dL Hct 37.0 (37-47) % MCV 89.2 (80-100) fL MCH 27.2 (25-34) pg MCHC 30.5 L (32-36) g/dL RDW Std Deviation 48.8 H (36.4-46.3) fL RDW Coeff of Saadia 14.9 H (11.5-14.5) % Plt Count 218 (130-400) K/uL MPV 9.8 (7.4-10.4) fL Immature Gran % (Auto) 0.2 % Neut % (Auto) 74.0 % Lymph % (Auto) 11.3 % [place] % (Auto) 6.2 % Eos % (Auto) 7.7 % Baso % (Auto) 0.6 % Neut # (Auto) 6.32 (1.4-6.5) K/uL Lymph # (Auto) 0.97 L (1.2-3.4) K/uL [place] # (Auto) 0.53 (0.11-0.59) K/uL Eos # (Auto) 0.66 H (0-0.5) K/uL Baso # (Auto) 0.05 (0-0.2) K/uL Immature Gran # (Auto) 0.02 (0.00-0.02) K/uL PT 10.1 (9.0-12.0) Seconds INR 1.0 (0.9-1.1) APTT 22.1 (21.0-31.0) Seconds PTT Ratio 0.8 Sodium 146 H (136-145) mmol/L Potassium 3.5 (3.5-5.1) mmol/L Chloride 116 H (98-107) mmol/L Carbon Dioxide 26 (21-32) mmol/L Anion Gap 4.0 (3-11) BUN 20 H (7-18) mg/dl Creatinine 1.23 H (0.6-1.2) mg/dl Est Cr Clr Drug Dosing 44.4 ml/min Est GFR ( Amer) 50.0 ml/min Est GFR (Non-Af Amer) 43.2 ml/min BUN/Creatinine Ratio 16.4 (10-20) Glucose 101 H (70-99) mg/dl Lactate (0.4-2.0) mmol/L Calcium 9.0 (8.5-10.1) mg/dl Magnesium 2.1 (1.8-2.4) mg/dl AST 30 (15-37) U/L ALT 34 (12-78) U/L Albumin 2.8 L (3.4-5.0) gm/dl 12/03/20 Range/Units 13:27 WBC (4.8-10.8) K/uL RBC (4.2-5.4) M/uL Hgb (12.0-16.0) g/dL Hct (37-47) % MCV (80-100) fL MCH (25-34) pg MCHC (32-36) g/dL RDW Std Deviation (36.4-46.3) fL RDW Coeff of Saadia (11.5-14.5) % Plt Count (130-400) K/uL MPV (7.4-10.4) fL Immature Gran % (Auto) % Neut % (Auto) % Lymph % (Auto) % [place] % (Auto) % Eos % (Auto) % Baso % (Auto) % Neut # (Auto) (1.4-6.5) K/uL Lymph # (Auto) (1.2-3.4) K/uL [place] # (Auto) (0.11-0.59) K/uL Eos # (Auto) (0-0.5) K/uL Baso # (Auto) (0-0.2) K/uL Immature Gran # (Auto) (0.00-0.02) K/uL PT (9.0-12.0) Seconds INR (0.9-1.1) APTT (21.0-31.0) Seconds PTT Ratio Sodium (136-145) mmol/L Potassium (3.5-5.1) mmol/L Chloride (98-107) mmol/L Carbon Dioxide (21-32) mmol/L Anion Gap (3-11) BUN (7-18) mg/dl Creatinine (0.6-1.2) mg/dl Est Cr Clr Drug Dosing ml/min Est GFR ( Amer) ml/min Est GFR (Non-Af Amer) ml/min BUN/Creatinine Ratio (10-20) Glucose (70-99) mg/dl Lactate 1.2 (0.4-2.0) mmol/L Calcium (8.5-10.1) mg/dl Magnesium (1.8-2.4) mg/dl AST (15-37) U/L ALT (12-78) U/L Albumin (3.4-5.0) gm/dl Imaging Data Radiologist's Impression: Chest X-Ray 12/03/20 13:14 XR chest 1V portable HISTORY: Sepsis COMPARISON: Chest 10/14/2019. FINDINGS: There are low lung volumes. The heart remains mildly enlarged. Mild diffuse interstitial thickening, unchanged. This is likely chronic. No new focal lung consolidations to suggest pneumonia. No evidence for pulmonary edema. There are old, healed right-sided rib fractures. IMPRESSION: Chronic changes as described above. No focal lung consolidations to suggest pneumonia. ACT 112: Negative or not required by law. Electronically signed by: Grabiel Varela M.D. 12/03/2020 1:55 PM MDM Narrative Patient presents to the ED with a chief complaint of cellulitis with a positive culture for Pseudomonas. She was told to come to the ER for IV antibiotics and admission. The patient's blood work as noted above. White blood cell count is 8.5. Chest x-ray was clear. IV Levaquin was administered. The patient was seen by the hospitalist. Impression & Plan Cellulitis of left thigh Discharge Plan Visit Data Chief Complaint: Infection, Wound ED Provider: Nilson Morillo Discharge Problem: Cellulitis of left thigh Patient Disposition: Being Evaluated by Hospitalist Forms Stand Alone Forms: [facility] Prescriptions Prescriptions: No Action pravastatin 20 mg tablet 20 mg PO DAILY RF: 0 nystatin 100,000 unit/gram powder 1 applic topical DAILY Qty: 30 RF: 1 leflunomide 10 mg tablet 10 mg PO DAILY RF: 0 desoximetasone 0.25 % ointment 1 applic topical DAILY PRN (Reason: skin irritation) Qty: 100 RF: 2 gentamicin 0.1 % ointment 1 applic topical DAILY 14 Days Qty: 30 RF: 1 hydroxychloroquine 200 mg tablet 400 mg PO DAILY RF: 0 aspirin 81 mg tablet,delayed release (DR/EC) 81 mg PO DAILY Qty: 30 RF: 0 prednisone 5 mg tablet 5 - 7.5 mg PO DAILY RF: 0 folic acid 1 mg Tablet 1 mg PO QAM 30 Days Qty: 30 RF: 1 zinc sulfate [Orazinc] 50 mg zinc (220 mg) Capsule 220 mg PO DAILY 30 Days Qty: 132 RF: 0 Referrals Referrals: Svetlana Rosales CRNP [Primary Care Provider] -
--- NOTE | 2020-12-03 16:08 | History & Physical Report ---
Date of Service December 03, 2020 Assessment & Plan (1) Bacterial infection due to Pseudomonas: Plan: - Wound culture on 30 November - pansensitive Pseudomonas - Levaquin 750 mg IV x 1 dose in ED; given renal function will adjust to Q48H dosing - Consult wound care nurse for assessment; packing -- Pending assessment will see if additional surgical debridement/intervention is needed - would think unlikely Present on Admission?: Yes (2) HTN (hypertension): Plan: - Asymptomatic - Chronic elevated BP; not currently on BP medication - Possibly related to chronic steroid use - Given age and fall risk would avoid overcorrection; has ran chronically high (150-160 systolic) Present on Admission?: Yes (3) CKD (chronic kidney disease) stage 3, GFR 30-59 ml/min: Plan: - STABLE; Cr baseline around 1.2-1.5 - Renally adjust medications; avoid further nephrotoxins - Recheck BMP in AM Present on Admission?: Yes (4) Folate deficiency: Plan: - Continue folic acid supplementation (5) Rheumatoid arthritis: Plan: - STABLE - Continue Hydroxychloroquine 400 mg daily; Leflunomide 10 mg daily; Prednisone 5 mg- 7.5 mg (rotates daily) - Pt did not take any medications today and will order them; today's Prednisone dose is 7.5 mg Present on Admission?: Yes (6) Chronic venous insufficiency: Plan: - STABLE; L > R - Follows with wound care; continues wrappings (7) DVT prophylaxis: Plan: - Continue ASA 81 mg daily History of Present Illness Chief Complaint: Pseudomonas Infection of Open Left Thigh Wound Primary Care Provider: AKRI Coughlin Ms. Villalpando is a 74 y/o female with PMHx of RA, CKD Stage III, Chronic Venous Insufficiency/Venous Stasis, Elevated BP, HLD, and L thigh absess and necrotic ulcer S/P I&D/Debridement on 18 November who presents with referral from wound care for wound culture with pseudomonas. Pt reports she is no longer having pain at the site and feels it is healing well. She has home health and continues with w eekly visits with the wound care clinic. Last culture was positive for MSSA and completed a course of Vancomycin during admission. Her chronic venous stasis and lymphedema are reported as stable. She is on chronic steroids, immunosuppresive, and hydroxychloroquine daily. She did not take any of her medications today. Allergies Allergy/AdvReac Type Severity Reaction Status Date / Time cefadroxil Allergy Intermediate Rash Verified 12/03/20 15:14 cefepime Allergy Unknown Unknown Verified 12/03/20 15:14 cephalexin [From Keflex] Allergy Unknown Unknown Verified 12/03/20 15:14 Sulfa (Sulfonamide Allergy Unknown RASH Verified 12/03/20 15:14 Antibiotics) amoxicillin [From Augmentin] Allergy Rash Verified 12/03/20 15:14 clavulanic acid Allergy Rash Verified 12/03/20 15:14 [From Augmentin] oxycodone AdvReac Unknown NAUSEA Verified 12/03/20 15:14 Home Medications Medication Instructions Recorded Confirmed Type hydroxychloroquine 200 mg tablet 400 mg PO DAILY 08/06/18 12/03/20 History aspirin 81 mg tablet,delayed 81 mg PO DAILY #30 tab 10/29/19 12/03/20 Rx release pravastatin 20 mg tablet 20 mg PO DAILY 03/09/20 12/03/20 History nystatin 100,000 unit/gram topical 1 applic TOPICAL DAILY #30 g 05/25/20 12/03/20 Rx powder leflunomide 10 mg tablet 10 mg PO DAILY 07/10/20 12/03/20 History desoximetasone 0.25 % topical 1 applic TOPICAL DAILY PRN #100 g 08/20/20 12/03/20 Rx ointment prednisone 5 mg tablet 5 - 7.5 mg PO DAILY 11/16/20 12/03/20 History folic acid 1 mg tablet 1 mg PO QAM 30 Days #30 tab 11/23/20 12/03/20 Rx zinc sulfate 50 mg zinc (220 mg) 220 mg PO DAILY 30 Days #132 cap 11/23/20 12/03/20 Rx capsule (Orazinc) gentamicin 0.1 % topical ointment 1 applic TOPICAL DAILY 14 Days #30 12/03/20 12/03/20 Rx g Past Med/Surg History Medical History Anemia Bacterial infection due to Serratia Cancer MELANOMA Cellulitis BILATERAL LEGS AND FEET, INPATIENT [facility] (JULY 2018) Cellulitis of left thigh Chronic steroid use CKD (chronic kidney disease) stage 3, GFR 30-59 ml/min Folate deficiency Fracture of sacrum BILATERAL. ~2017, PHYSICAL THERAPY. USES WALKER HLD (hyperlipidemia) HTN (hypertension) No blood products PER PATIENT REQUEST Obesity Pneumonia AUGUST 2017 Pressure ulcer of upper thigh Rheumatoid arthritis Septic shock Surgical History History of cataract surgery BILATERAL History of colonoscopy History of surgical removal of skin lesion BACK History of total hip replacement RIGHT S/P debridement (11/29/19) Right Thigh wound debridement, sharp, greater than [address] 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 Feels Safe at Home: Yes Safety Concerns: Feels Safe At This Time Assistive Devices: Glasses, Special Shoe and Walker Review of Systems Constitutional: no fever and no chills Ear, Nose, Mouth, Throat: no dizziness, no nasal congestion and no sore throat Respiratory: no cough, no chest congestion, no dyspnea and no wheezing Cardiovascular: + edema (chronic/stable); no chest pain Gastrointestinal: no abdominal pain, no nausea, no vomiting, no constipation and no diarrhea/loose stools Genitourinary: + urinary incontinence; no dysuria Integumentary: + wounds (open wound; no pain or drainage) Neurologic: no tingling and no numbness Physical Exam Constitutional: well developed and well nourished; no acute distress Eyes: mild erythema of sclera bilateral ENMT: Mouth: no oropharynx abnormality Throat: uvula midline; no posterior oropharynx abnormality Neck: trachea midline, no thyromegaly Respiratory: normal respiratory effort, lungs clear to auscultation (dimished at lung bases bilateral) + cough Cardiovascular: Rate/Rhythm: regular rate and regular rhythm Heart Sounds: normal S1 and normal S2 Vessels: no JVD Extremities: + edema (chronic venous stasis changes and edema; L > R with dried skin) Gastrointestinal (Abdomen): normal bowel sounds, soft, nontender, no hepatosplenomegaly Musculoskeletal: Head/Neck/Chest: normocephalic and head atraumatic Skin: chronic venous stasis changes b/l lower extremities; L inner thigh midline open wound with minimal yellow drainage in wound bed, no necrotic ulcerations, wound bed pink; surrounding tissue without warmth Neurologic: moves all extremities Speech / Cognition: normal speech Psychiatric: A+Ox3, euthymic affect Lymphatic: + lymphedema; no cervical lymphadenopathy Results & Data Results & Data ([facility]) Vital Signs (Past 12 Hours) Vital Signs Temp Pulse Resp BP Pulse Ox 12/03/20 14:30 68 21 160/77 H 99 12/03/20 14:01 67 21 175/74 H 100 12/03/20 13:49 66 21 170/122 H 99 12/03/20 13:30 98 12/03/20 12:32 36.9 C 79 18 140/83 98 Code Status & VTE Plan VTE Prophylaxis Plan VTE Prophylaxis will be ordered: Yes Supervising Physician Co-Signing Physician Notes Reviewed documentation, discussed with SHELLY. Agree with note above. Patient had previous surgical debridement of the wound, cultures growing pansensitive Pseudomonas. Plan to admit the patient and started on IV Levaquin at renal dosing. Patient should be evaluated by wound care, consideration to a wound VAC. May also require placement depending on course. Monitoring for symptoms of infection on antibiotics. PG Care Time/CCT Total # of Minutes Spent Total Time Spent with Patient: Total time spent is greater than 50% in coordination of care (as documented) at patient's floor/unit and/or counseling patient: Coding Level of Care Code INT OBSERVATION CARE 50M LVL 2 Diagnoses HTN (hypertension) I10 Bacterial infection due to Pseudomonas A49.8 CKD (chronic kidney disease) stage 3, GFR 30-59 ml/min N18.3 Folate deficiency E53.8 DVT prophylaxis Z29.9 Rheumatoid arthritis M06.9 Rheumatoid arthritis location: unspecified site Rheumatoid factor presence: unspecified presence Chronic venous insufficiency I87.2 (1) Rheumatoid arthritis Rheumatoid arthritis location: unspecified site Rheumatoid factor presence: unspecified presence Qualified Code(s): M06.9 - Rheumatoid arthritis, unspecified
--- NOTE | 2020-12-03 16:40 | Electrocardiogram Report ---
Test Reason : Blood Pressure : / mmHG Vent. Rate : 066 BPM Atrial Rate : 066 BPM P-R Int : 154 ms QRS Dur : 092 ms QT Int : 452 ms P-R-T Axes : 022 -25 027 degrees QTc Int : 473 ms Poor data quality, interpretation may be adversely affected Normal sinus rhythm Minimal voltage criteria for LVH, may be normal variant Cannot rule out Anterior infarct , age undetermined Abnormal ECG When compared with ECG of 18-NOV-2020 07:25, No significant change was found Confirmed by Marquis Mendoza ([id number]) on 12/03/2020 4:40:11 PM Referred By: REFERRED SELF Confirmed By:Marquis Mendoza
[2020-12-03] MEDS ORDERED: ACETAMINOPHEN 325 MG TAB PO PRN (18:43)
[2020-12-03] MEDS ORDERED: POLYETHYLENE (MIRALAX) 17 GM PACK PO PRN (18:43)
[2020-12-03] MEDS ORDERED: MAGNESIUM HYDROXIDE SUSP 30 ML UDC PO PRN (18:43)
[2020-12-03] MEDS ORDERED: predniSONE 5 MG TAB PO SCH (18:43)
[2020-12-03] MEDS ORDERED: ALUMINUM/MAGNESIUM SUSP 30 ML UDC PO PRN (18:43)
[2020-12-03] MEDS: ASPIRIN 81 MG ECTAB PO SCH (19:32)
[2020-12-03] MEDS: HYDROXYCHLOROQUINE SULFATE 200 MG TAB PO SCH (19:32)
[2020-12-03] MEDS: FOLIC ACID 1 MG TAB PO SCH (19:32)
[2020-12-03] MEDS: ZINC SULFATE 220 MG CAPSULE PO SCH (19:33)
[2020-12-03] MEDS: PRAVASTATIN SOD 20 MG TAB PO SCH (19:33)
[2020-12-03 21:39] LABS: Appearance Urine Clear (Clear); Bacteria Urine Automated Negative (Negative); Bilirubin Urine Negative (Negative); Blood Urine Negative (Negative); Color Urine Yellow; Epithelial Cell Urine Auto >30 /lpf (0-5); Glucose Urine UA Negative (Negative); Ketones Urine Negative (Negative); Leukocyte Esterase Urine 1+ (Negative); Nitrite Urine Negative (Negative); Protein Urine Trace (Negative); RBC Urine Automated 0-4 /hpf (0-4); Specific Gravity Urine 1.021 (1.000-1.030); Urobilinogen Urine Negative (Negative)
[2020-12-04] MEDS ORDERED: predniSONE 2.5 MG TAB PO SCH (09:00)
[2020-12-04] MEDS: PRAVASTATIN SOD 20 MG TAB PO SCH (09:40)
[2020-12-04] MEDS: LEFLUNOMIDE 10 MG TAB PO SCH (09:40)
[2020-12-04] MEDS: GENTAMICIN SULFATE 0.1% CR 15 GM TUBE EXT SCH (09:40)
[2020-12-04] MEDS: NYSTATIN POWDER 15GM BTL EXT SCH (09:40)
[2020-12-04] MEDS: ZINC SULFATE 220 MG CAPSULE PO SCH (09:40)
[2020-12-04] MEDS: FOLIC ACID 1 MG TAB PO SCH (09:40)
[2020-12-04] MEDS: ASPIRIN 81 MG ECTAB PO SCH (09:40)
[2020-12-04] MEDS: HYDROXYCHLOROQUINE SULFATE 200 MG TAB PO SCH (09:40)
--- NOTE | 2020-12-04 16:27 | Hospitalist Progress Note ---
Date of Service December 04, 2020 Assessment & Plan (1) Bacterial infection due to Pseudomonas: Plan: - Wound culture on 30 November - pansensitive Pseudomonas - Levaquin 750 mg IV x 1 dose in ED; given renal function will adjust to Q48H dosing -- Will check EKG in AM to assess for any QT prolongation - could ultimately hold Plaquenil until finished with the course to allow for oral conversion as should only need a few day coverage -- Given multiple cultures in the past with Pseudomonas - possibly this is colonization? - Wound care nurse following for assessment; packing -- Recommendation is for wound vac however patient unable to care for this at home and does not want placement (2) HTN (hypertension): Plan: - Asymptomatic - Chronic elevated BP; not currently on BP medication - Possibly related to chronic steroid use; easily gets anxious and may be contributing as well - Given age and fall risk would avoid overcorrection; has ran chronically high (150-160 systolic) (3) CKD (chronic kidney disease) stage 3, GFR 30-59 ml/min: Plan: - STABLE; Cr baseline around 1.2-1.5 - Renally adjust medications; avoid further nephrotoxins (4) Folate deficiency: Plan: - Continue folic acid supplementation (5) Rheumatoid arthritis: Plan: - STABLE - Continue Hydroxychloroquine 400 mg daily; Leflunomide 10 mg daily; Prednisone 5 mg- 7.5 mg (rotates daily) (6) Chronic venous insufficiency: Plan: - STABLE; L > R - Follows with wound care; continues wrappings (7) DVT prophylaxis: Plan: - Continue ASA 81 mg daily Disposition: - Patient plans to return home with her current home health services - Plan for IV ABx dose and EKG in AM with D/C to home in afternoon - Pt needs van transport arranged Admission and Anticipated Discharge Date Admission Date: December 03, 2020 Subjective Pt reports overall doing well today. Continues to have no pain at the wound site. She was seen and treated by wound care. She has history of pseudomonas in wounds and question whether colonization may be the issue. No system concerns with infection. Patient declines wound vac because she does not have the capabilities to manage this at home. Levaquin was started for coverage and tolerating well but dosed Q48H due to renal function. Will monitor overnight and get EKG in AM for assess for QT prolongation. Could hold Plaquenil while on Levaquin as a short course could be sufficient. Review of Systems Constitutional: no fever and no chills Ear, Nose, Mouth, Throat: no dizziness, no nasal congestion and no sore throat Respiratory: no cough, no chest congestion, no dyspnea and no wheezing Cardiovascular: + edema (chronic/stable); no chest pain Gastrointestinal: no abdominal pain, no nausea, no vomiting, no constipation and no diarrhea/loose stools Genitourinary: + urinary incontinence; no dysuria Integumentary: + wounds (open wound; no pain or drainage) Neurologic: no tingling and no numbness Physical Exam Constitutional: well developed and well nourished; no acute distress ENMT: Mouth: no oropharynx abnormality Throat: uvula midline; no posterior oropharynx abnormality Neck: trachea midline, no thyromegaly Respiratory: normal respiratory effort, lungs clear to auscultation (dimished at lung bases bilateral) no cough Cardiovascular: Rate/Rhythm: regular rate and regular rhythm Heart Sounds: normal S1 and normal S2 Vessels: no JVD Extremities: + edema (chronic venous stasis changes and edema; L > R with dried skin) Gastrointestinal (Abdomen): normal bowel sounds, soft, nontender, no hepatosplenomegaly Musculoskeletal: Head/Neck/Chest: normocephalic and head atraumatic Skin: open wound to L thigh without necrotic tissue or drainage; pink wound base Neurologic: moves all extremities Speech / Cognition: normal speech Psychiatric: A+Ox3, euthymic affect Lymphatic: + lymphedema; no cervical lymphadenopathy Results & Data Results & Data ([facility]) Vital Signs (Past 12 Hours) Vital Signs Temp Pulse Resp BP Pulse Ox 12/04/20 15:31 37.1 C 70 16 122/73 94 12/04/20 08:03 37.1 C 68 18 154/85 H 95 PG Care Time/CCT Total # of Minutes Spent Total Time Spent with Patient: Total time spent is greater than 50% in coordination of care (as documented) at patient's floor/unit and/or counseling patient: Coding Level of Care Code 59420 Subseq Obs Care Lvl 2 Diagnoses Bacterial infection due to Pseudomonas A49.8 HTN (hypertension) I10 CKD (chronic kidney disease) stage 3, GFR 30-59 ml/min N18.3 Folate deficiency E53.8 Rheumatoid arthritis M06.9 Rheumatoid arthritis location: unspecified site Rheumatoid factor presence: unspecified presence Chronic venous insufficiency I87.2 DVT prophylaxis Z29.9 (1) Rheumatoid arthritis Rheumatoid arthritis location: unspecified site Rheumatoid factor presence: unspecified presence Qualified Code(s): M06.9 - Rheumatoid arthritis, unspecified
[2020-12-05 08:09] LABS: Creatinine Clr Calc Pharmacy 38.4 ml/min; Est GFR (African American) 42.8 ml/min; Est GFR (Non-African American) 36.9 ml/min
[2020-12-05] MEDS: ASPIRIN 81 MG ECTAB PO SCH (08:34)
[2020-12-05] MEDS: FOLIC ACID 1 MG TAB PO SCH (08:35)
[2020-12-05] MEDS: PRAVASTATIN SOD 20 MG TAB PO SCH (08:35)
[2020-12-05] MEDS: ZINC SULFATE 220 MG CAPSULE PO SCH (08:35)
[2020-12-05] MEDS: HYDROXYCHLOROQUINE SULFATE 200 MG TAB PO SCH (08:35)
[2020-12-05] MEDS: LEFLUNOMIDE 10 MG TAB PO SCH (08:35)
[2020-12-05] MEDS: NYSTATIN POWDER 15GM BTL EXT SCH (08:37)
[2020-12-05] MEDS: GENTAMICIN SULFATE 0.1% CR 15 GM TUBE EXT SCH (08:39)
[2020-12-05] MEDS ORDERED: predniSONE 5 MG TAB PO SCH (09:00)
[2020-12-05] MEDS ORDERED: levoFLOXacin/D5W 750 MG/150 ML BAG IV SCH (14:00)
--- NOTE | 2020-12-05 17:02 | Electrocardiogram Report ---
Test Reason : Blood Pressure : / mmHG Vent. Rate : 060 BPM Atrial Rate : 060 BPM P-R Int : 154 ms QRS Dur : 100 ms QT Int : 466 ms P-R-T Axes : 015 -28 027 degrees QTc Int : 466 ms Normal sinus rhythm Minimal voltage criteria for LVH, may be normal variant Borderline ECG When compared with ECG of 04-DEC-2020 15:19, (unconfirmed) No significant change was found Confirmed by Marquis Mendoza ([id number]) on 12/05/2020 5:02:00 PM Referred By: REFERRED SELF Confirmed By:Marquis Mendoza
--- NOTE | 2020-12-05 19:08 | Discharge Summary ---
Date of Service December 05, 2020 Admission HPI Per Admitting Provider Ms. Villalpando is a 74 y/o female with PMHx of RA, CKD Stage III, Chronic Venous Insufficiency/Venous Stasis, Elevated BP, HLD, and L thigh absess and necrotic ulcer S/P I&D/Debridement on 18 November who presents with referral from wound care for wound culture with pseudomonas. Pt reports she is no longer having pain at the site and feels it is healing well. She has home health and continues with weekly visits with the wound care clinic. Last culture was positive for MSSA and completed a course of Vancomycin during admission. Her chronic venous stasis and lymphedema are reported as stable. She is on chronic steroids, immunosuppresive, and hydroxychloroquine daily. She did not take any of her medications today. Principal Diagnosis Pseudomonas Infection of Open Wound of L Thigh Discharge Exam Constitutional well developed and well nourished; no acute distress ENMT Mouth: no oropharynx abnormality Throat: uvula midline; no posterior oropharynx abnormality Neck trachea midline, no thyromegaly Respiratory normal respiratory effort, lungs clear to auscultation (dimished at lung bases bilateral) no cough Cardiovascular Rate/Rhythm: regular rate and regular rhythm Heart Sounds: normal S1 and normal S2 Vessels: no JVD Extremities: + edema (chronic venous stasis changes and edema; L > R with dried skin) Gastrointestinal (Abdomen) normal bowel sounds, soft, nontender, no hepatosplenomegaly Musculoskeletal Head/Neck/Chest: normocephalic and head atraumatic Skin wound packing and bandage applied to L thigh Neurologic moves all extremities Speech / Cognition: normal speech Psychiatric A+Ox3, euthymic affect Lymphatic + lymphedema; no cervical lymphadenopathy Discharge Data Allergies Allergy/AdvReac Type Severity Reaction Status Date / Time cefadroxil Allergy Intermediate Rash Verified 12/03/20 15:14 cefepime Allergy Unknown Unknown Verified 12/03/20 15:14 cephalexin [From Keflex] Allergy Unknown Unknown Verified 12/03/20 15:14 Sulfa (Sulfonamide Allergy Unknown RASH Verified 12/03/20 15:14 Antibiotics) amoxicillin [From Augmentin] Allergy Rash Verified 12/03/20 15:14 clavulanic acid Allergy Rash Verified 12/03/20 15:14 [From Augmentin] oxycodone AdvReac Unknown NAUSEA Verified 12/03/20 15:14 Consultations 12/03/20 15:01 ED Decision to Admit Stat Hospital Course (1) Bacterial infection due to Pseudomonas: - Wound culture on 30 November - pansensitive Pseudomonas - Levaquin 750 mg IV x 1 dose in ED; given renal function adjusted to Q48H dosing -- EKG with QTc in her normal range compared to previous EKGs - could ultimately hold Plaquenil until finished with the course to allow for oral option as should only need a few day coverage -- Given multiple cultures in the past with Pseudomonas - possibly this is colonization? -- Will dose Levaquin 750 mg po x 1 on 07 December to complete course - Wound care nurse following for assessment; packing -- Recommendation is for wound vac however patient unable to care for this at home and does not want placement (2) HTN (hypertension): - Asymptomatic - Chronic elevated BP; not currently on BP medication - Possibly related to chronic steroid use; easily gets anxious and may be contributing as well - Given age and fall risk would avoid overcorrection; has ran chronically high (150-160 systolic) (3) CKD (chronic kidney disease) stage 3, GFR 30-59 ml/min: - STABLE; Cr baseline around 1.2-1.5 - Renally adjust medications; avoid further nephrotoxins (4) Folate deficiency: - Continue folic acid supplementation (5) Rheumatoid arthritis: - STABLE - Hold Hydroxychloroquine 400 mg daily until Abx course complete; Leflunomide 10 mg daily; Prednisone 5 mg- 7.5 mg (rotates daily) (6) Chronic venous insufficiency: - STABLE; L > R - Follows with wound care; continue wrappings (7) DVT prophylaxis: - Continue ASA 81 mg daily Disposition: - Patient plans to return home with her current home health services Total Time Total Time Spent Total Time Spent (In Minutes): Greater than 30 minutes Discharge Plan Discharge Items Patient Disposition: Home - Home Health Services Reason For Visit: INFECTION Discharge Diagnosis: Pseudomonas Wound Infection Activity: Resume your previous activity Non-emergency contact: Primary Care Provider Call non-emergency contact if: you have any medication questions, your symptoms worsen, you have a fever, your wound has increased redness, your wound has increased drainage and your wound pain has increased Follow-up/Referrals: Svetlana Rosales CRNP [Primary Care Provider] - 12/10/20 2:10 pm Diet: Heart Healthy Addtl Attending Provider Instructions: Open Wound Infection: - You were admitted for having a bacteria called pseudomonas in your wound on your left thigh - We treated you with Levaquin (an antibiotic) to treat this infection. You had two doses in the hospital. - Since your kidney's filter out medication a bit slower, we only have to dose this medication every other day -- You only need to take one pill of Levaquin on DECEMBER 07 to finish this course - Continue your wound care appointments and you will continue with home services to have your legs dressed and cleaned - You can hold your Plaquenil while taking the antibiotic. On December 09 you can take your Plaquenil again as the antibiotic would be working its way out of your system. Home Medications: - Please continue taking your home medications as previously prescribed. We did not change these. - Just hold your Plaquenil as discussed above Zinc: - Will send another prescription for this. Sometimes vitamins and minerals will not be filled. Talk with the pharmacist as you can get over the counter zinc and they can help you Pending Studies at Discharge: No Stand-Alone Forms: My [facility], Smoking Cessation Medications and DC Order Prescriptions: Continued pravastatin 20 mg tablet 20 mg PO DAILY RF: 0 nystatin 100,000 unit/gram powder 1 applic topical DAILY Qty: 30 RF: 1 leflunomide 10 mg tablet 10 mg PO DAILY RF: 0 desoximetasone 0.25 % ointment 1 applic topical DAILY PRN (Reason: skin irritation) Qty: 100 RF: 2 gentamicin 0.1 % ointment 1 applic topical DAILY 14 Days Qty: 30 RF: 1 hydroxychloroquine 200 mg tablet 400 mg PO DAILY RF: 0 aspirin 81 mg tablet,delayed release (DR/EC) 81 mg PO DAILY Qty: 30 RF: 0 prednisone 5 mg tablet 5 - 7.5 mg PO DAILY RF: 0 folic acid 1 mg Tablet 1 mg PO QAM 30 Days Qty: 30 RF: 1 zinc sulfate [Orazinc] 50 mg zinc (220 mg) Capsule 220 mg PO DAILY 30 Days Qty: 132 RF: 0 Discharge Orders: Discharge Order (Routine); Ordered 12/05/20 Ordered By: Emi Baptiste Admission Data Admit Date/Time: 12/03/20 15:29 Attending Provider: Angel Willingham Admit Provider: Arsen Mabry Primary Care Provider: Svetlana Rosales Other Providers: Arsen Mabry ; [facility],Home Health Supervising Physician Co-Signing Physician Notes Attending note: patient seen and examined with Emi Baptiste PA-C. I agree with her discharge summary. I personally reviewed the labs and imaging findings. patient feeling fine with the Levaquin, her QTc is acceptable, will only need one more dose of Levaquin based on renal dosing, she can take that two days after discharge eating and drinking well, no chest pain, no dyspnea, no nausea she has home health arranged and wound care follow up - Left thigh wound, + Pseudomonas: treated with Levaquin continue to follow with wound clinic Coding Level of Care Code D/C DAY MANAGEMENT >30 MINS Diagnoses Bacterial infection due to Pseudomonas A49.8 HTN (hypertension) I10 CKD (chronic kidney disease) stage 3, GFR 30-59 ml/min N18.3 Folate deficiency E53.8 Rheumatoid arthritis M06.9 Rheumatoid arthritis location: unspecified site Rheumatoid factor presence: unspecified presence Chronic venous insufficiency I87.2 DVT prophylaxis Z29.9 Home Health Attestation I certify that this patient is under my care and that I had a face to-face encounter that meets the home health [id number] encounter requirements with this patient. The encounter with the patient was in whole, or in part, for the following medical condition, which is the primary reason for home health care (list medical condition): Wound infection I certify that, based on my findings, the following services are medically necessary home health services: My clinical findings support the need for the above services because: OT Assess ADL Status and Restore Function w ADLs PT Gait and Balance Training, Strengthening and Safety Skilled Nsg to Assess, Perform and Teach Wound Care Further, I certify that my clinical findings support that this patient is homebound (i.e. absences from home require considerable and taxing effort and are for medical reasons or alevism services or infrequently or of short duration when for other reasons) because: Transportation Assistance/Unable to Leave Home Unassisted Certification for Home Health Services: Based on the above findings, I certify that this patient is confined to the home and needs intermittent long term care, physical therapy and/or speech therapy or continues to need occupational therapy. The patient is under my care, and I have initiated the establishment of the plan of care. This patient will be followed by a physician who will periodically review the plan of care.
== END 2020-12-05 16:15 | disposition home health service (06) ==
LOC: 2W 12:21 → ED 12:21 → SUATTDRO 15:29 → 2W 17:31
DX: I87.2 Venous insufficiency (chronic) (peripheral); Z88.2 Allergy status to sulfonamides; E78.5 Hyperlipidemia, unspecified; E53.8 Deficiency of other specified B group vitamins; A49.8 Other bacterial infections of unspecified site; Z79.82 Long term (current) use of aspirin; Z88.5 Allergy status to narcotic agent; M06.9 Rheumatoid arthritis, unspecified; I12.9 Hypertensive chronic kidney disease with stage 1 through stage 4 chronic kidney disease, or unspecified chronic kidney disease; E66.9 Obesity, unspecified; Z88.1 Allergy status to other antibiotic agents; Z68.31 Body mass index [BMI] 31.0-31.9, adult; Z79.52 Long term (current) use of systemic steroids; N18.30 Chronic kidney disease, stage 3 unspecified; Z79.899 Other long term (current) drug therapy

== ENCOUNTER 2021-01-17 11:45 | Inpatient (IN) ==
--- NOTE | 2021-01-17 12:42 | Emergency Department Note ---
History of Present Illness General Chief complaint: Infection, Wound Stated complaint: CELLULITIS L FOOT, [id number] Time Seen by Provider: 01/17/21 12:20 Source: patient History of Present Illness Provider complaint: Left leg pain Onset (ago): day(s) Location: lower extremity and left Pain Consistency: + constant Quality: + constant Relieved By: + none Associated symptoms: no chest pain, no cough, no fever/chills, no nausea/vomiting or no shortness of breath This is a 75-year-old female sent here from the wound care clinic due to infection to her left leg. She has been dealing with this leg infection for months. She denies being on any antibiotics currently. She was previously on antibiotics in October. She states that over the past several days she has noticed worsening swelling and redness to the left leg. She does complain of a burning sore pain to the leg, particularly the thigh and the foot. There is associated increased swelling. She denies any fevers or chills, chest pain, shortness of breath, vomiting, cough or cold symptoms, abdominal pain, diarrhea or urinary symptoms. She was seen at the wound care clinic today and sent here. Home Medications Medication Instructions Recorded Confirmed Type hydroxychloroquine 200 mg tablet 400 mg PO DAILY 08/06/18 01/17/21 History aspirin 81 mg tablet,delayed 81 mg PO DAILY #30 tab 10/29/19 01/17/21 Rx release pravastatin 20 mg tablet 20 mg PO DAILY 03/09/20 01/17/21 History leflunomide 10 mg tablet 10 mg PO DAILY 07/10/20 01/17/21 History prednisone 5 mg tablet 5 - 7.5 mg PO DAILY 11/16/20 01/17/21 History folic acid 1 mg tablet 1 mg PO QAM 30 Days #30 tab 11/23/20 01/17/21 Rx gentamicin 0.1 % topical ointment 1 applic TOPICAL DAILY 14 Days #30 12/03/20 01/17/21 Rx g desoximetasone 0.25 % topical 1 applic TOPICAL DAILY PRN #100 g 12/17/20 01/17/21 Rx ointment Allergies Allergy/AdvReac Type Severity Reaction Status Date / Time amoxicillin [From Augmentin] Allergy Intermediate Rash Verified 01/17/21 10:37 cefadroxil Allergy Intermediate Rash Verified 01/17/21 10:37 clavulanic acid Allergy Intermediate Rash Verified 01/17/21 10:37 [From Augmentin] Sulfa (Sulfonamide Allergy Intermediate RASH Verified 01/17/21 10:37 Antibiotics) cefepime Allergy Unknown Unknown Verified 01/17/21 10:37 cephalexin [From Keflex] Allergy Unknown Unknown Verified 01/17/21 10:37 levofloxacin [From Levaquin] AdvReac Intermediate rash Verified 01/17/21 10:37 oxycodone AdvReac Mild NAUSEA Verified 01/17/21 10:37 Past Med/Surg History Medical History Anemia Bacterial infection due to Pseudomonas Bacterial infection due to Serratia Cancer MELANOMA Cellulitis BILATERAL LEGS AND FEET, INPATIENT [facility] (JULY 2018) Cellulitis of left thigh Cellulitis of left thigh Chronic steroid use CKD (chronic kidney disease) stage 3, GFR 30-59 ml/min Folate deficiency Fracture of sacrum BILATERAL. ~2016, PHYSICAL THERAPY. USES WALKER HLD (hyperlipidemia) HTN (hypertension) No blood products PER PATIENT REQUEST Obesity Pneumonia AUGUST 2017 Pressure ulcer of upper thigh Rheumatoid arthritis Septic shock Surgical History History of cataract surgery BILATERAL History of colonoscopy History of surgical removal of skin lesion BACK History of total hip replacement RIGHT S/P debridement (11/29/19) Right Thigh wound debridement, sharp, greater than [address] 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 Feels Safe at Home: Yes Assistive Devices: Walker Review of Systems See HPI for pertinent positives & negatives. and A total of 10 systems reviewed and were otherwise negative Physical Exam Vital Signs Vital Signs - 24 hr 01/17/21 11:52 01/17/21 13:20 01/17/21 13:30 Temperature 35.9 C L Temperature Source Temporal Artery Scan Pulse Rate 86 84 89 Pulse Rate from SpO2 Sensor 84 87 Respiratory Rate 18 26 H 35 H Respiratory Effort / Characteristics Non-Labored Respiratory Depth Normal Blood Pressure 104/73 Blood Pressure Mean 83 Pulse Oximetry 95 98 Oxygen Delivery Method Room Air Room Air Room Air Sepsis Recent Fever Within 48 Hours No Sepsis New/Unexplained Change in Mental Status No Sepsis Action Taken by Nursing No Action Required 01/17/21 14:02 01/17/21 14:31 01/17/21 15:01 Temperature Temperature Source Pulse Rate 82 81 79 Pulse Rate from SpO2 Sensor 82 80 80 Respiratory Rate 27 H 26 H 23 Respiratory Effort / Characteristics Respiratory Depth Blood Pressure 145/52 H 149/44 H 98/62 L Blood Pressure Mean 83 79 74 Pulse Oximetry 98 98 99 Oxygen Delivery Method Room Air Room Air Room Air Sepsis Recent Fever Within 48 Hours Sepsis New/Unexplained Change in Mental Status Sepsis Action Taken by Nursing 01/17/21 15:31 01/17/21 16:02 01/17/21 16:30 Temperature Temperature Source Pulse Rate 83 86 89 Pulse Rate from SpO2 Sensor 84 86 89 Respiratory Rate 24 29 H 28 H Respiratory Effort / Characteristics Respiratory Depth Blood Pressure 83/59 L 110/71 100/77 Blood Pressure Mean 67 84 84 Pulse Oximetry 99 97 98 Oxygen Delivery Method Room Air Room Air Room Air Sepsis Recent Fever Within 48 Hours Sepsis New/Unexplained Change in Mental Status Sepsis Action Taken by Nursing 01/17/21 17:00 01/17/21 17:30 Temperature Temperature Source Pulse Rate 87 86 Pulse Rate from SpO2 Sensor 87 86 Respiratory Rate 28 H 28 H Respiratory Effort / Characteristics Respiratory Depth Blood Pressure 90/70 L 140/68 Blood Pressure Mean 76 92 Pulse Oximetry 97 98 Oxygen Delivery Method Room Air Room Air Sepsis Recent Fever Within 48 Hours Sepsis New/Unexplained Change in Mental Status Sepsis Action Taken by Nursing Constitutional: Vital signs reviewed. Eyes: Pupils are equal round reactive to light. Conjunctiva are noninjected. ENT: Pharynx is clear without erythema or exudate. Mucous membranes are somewhat dry. Neck supple without meningeal signs. Respiratory: Clear to auscultation bilaterally. Breath sounds are equal bilaterally. Cardiovascular: Regular rate and rhythm. No rubs or gallops. GI: Soft, nondistended and nontender. Bowel sounds are present. Musculoskeletal: Bilateral lower extremity edema with the left side being greater than the right. There is significant erythema to the lower portion of the left leg and foot as well as the left thigh. There is a wound to the left upper thigh with surrounding cellulitis. There is increased warmth as well. The foot is warm to touch. The right leg is also erythematous without increased warmth. There is an area in the right upper thigh which looks like tinea with satellite lesions. Integumentary: No cyanosis. or jaundice. Neurological: The patient is awake and alert. No focal deficits. Psychiatric: Normal affect. Not anxious appearing. Course Administered Medications Discontinued Medications Piperacillin Sod/Tazobactam Sod (Zosyn) 4.5 gm in 120 mls @ 240 mls/hr IV NOW ONE Stop: 01/17/21 14:25 Last Infusion: 01/17/21 15:19 Dose: 0 mls/hr Documented by: [id number] Admin: 01/17/21 14:29 Dose: 240 mls/hr Documented by: [id number] Sodium Chloride (Nss 1000ml) 1,000 mls @ 999 mls/hr IV .Q1H1M ONE Stop: 01/17/21 16:49 Last Admin: 01/17/21 17:06 Dose: 999 mls/hr Documented by: [id number] Medical Decision Making Differential Diagnosis Venous insufficiency, lymphedema, cellulitis, Pseudomonas, bacteremia Medical Records Attestation: I reviewed the patient's medical records. I did perform a limited focused review of portions of the patient's old chart on the electronic medical record. The patient had a wound culture from her left leg January 09 which grew out Pseudomonas and Morganella. She was seen by the wound care clinic today and sent here for further care. Home Medications Current Medication List: was personally reviewed by me Laboratory Data Attestation: I reviewed the patient's lab results. Result diagrams: 01/17/21 14:01 01/17/21 13:08 Lab Results 01/17/21 01/17/21 01/17/21 Range/Units 13:08 13:08 13:08 WBC Cancelled RBC Cancelled Hgb Cancelled Hct Cancelled MCV Cancelled MCH Cancelled MCHC Cancelled RDW Std Deviation Cancelled RDW Coeff of Saadia Cancelled Plt Count Cancelled MPV Cancelled Immature Gran % (Auto) Cancelled Neut % (Auto) Cancelled Lymph % (Auto) Cancelled [place] % (Auto) Cancelled Eos % (Auto) Cancelled Baso % (Auto) Cancelled Neut # (Auto) Cancelled Lymph # (Auto) Cancelled [place] # (Auto) Cancelled Eos # (Auto) Cancelled Baso # (Auto) Cancelled Immature Gran # (Auto) Cancelled Absolute Nucleated RBC Cancelled Nucleated RBC % (auto) Cancelled Neutrophils % (Manual) Cancelled Band Neutrophils % Cancelled Lymphocytes % (Manual) Cancelled Prolymphocyte % Cancelled Reactive Lymphs % (Man) Cancelled Monocytes % (Manual) Cancelled Eosinophils % (Manual) Cancelled Basophils % (Manual) Cancelled Metamyelocytes % (Man) Cancelled Myelocytes % (Man) Cancelled Promyelocytes % (Man) Cancelled Blast Cells % (Manual) Cancelled Plasma Cell % (Manual) Cancelled Other Cells % Cancelled Nucleated RBC % Cancelled Neutrophils # (Manual) Cancelled Band Neutrophils # Cancelled Total Absolute Neuts Cancelled Lymphocytes # (Manual) Cancelled Prolymphocyte # Cancelled Reactive Lymphs # Cancelled Total Abs Lymphocytes Cancelled Monocytes # (Manual) Cancelled Eosinophils # (Manual) Cancelled Basophils # (Manual) Cancelled Metamyelocytes # (Man) Cancelled Myelocytes # (Manual) Cancelled Promyelocytes # (Man) Cancelled Blast Cells # (Man) Cancelled Plasma Cell # (Manual) Cancelled Other Cells # Cancelled Nucleated RBCs # (Man) Cancelled Hypersegmented Neuts Cancelled Hyposegmented Neuts Cancelled Hypogranular Neuts Cancelled Large Granular Lymphs Cancelled # Lrg Granular Lymphs Cancelled Hairy Cells Cancelled Smudge Cells Cancelled Toxic Granulation Cancelled Toxic Vacuolation Cancelled Dohle Bodies Cancelled Yojana Rods Cancelled Platelet Estimate Cancelled Hypogranular Platelets Cancelled Clumped Platelets Cancelled Giant Platelets Cancelled Platelet Satelliting Cancelled RBC Morphology Cancelled Polychromasia Cancelled Hypochromasia Cancelled Poikilocytosis Cancelled Basophilic Stippling Cancelled Anisocytosis Cancelled Microcytosis Cancelled Macrocytosis Cancelled Spherocytes Cancelled Pappenheimer Bodies Cancelled Sickle Cells Cancelled Target Cells Cancelled Tear Drop Cells Cancelled Ovalocytes Cancelled Stomatocytes Cancelled [place] Bodies Cancelled Echinocytes Cancelled Acanthocytes (Spur) Cancelled Rouleaux Cancelled RBC Agglutinates Cancelled Schistocytes Cancelled RBC Morph Comment Cancelled Sezary Cell Cancelled Sodium 140 (136-145) mmol/L Potassium 3.9 (3.5-5.1) mmol/L Chloride 112 H (98-107) mmol/L Carbon Dioxide 22 (21-32) mmol/L Anion Gap 7.0 (3-11) BUN 25 H (7-18) mg/dl Creatinine 1.42 H (0.6-1.2) mg/dl Est Cr Clr Drug Dosing 36.1 ml/min Est GFR ( Amer) 41.8 ml/min Est GFR (Non-Af Amer) 36.0 ml/min BUN/Creatinine Ratio 17.8 (10-20) Glucose 83 (70-99) mg/dl Lactate 1.8 (0.4-2.0) mmol/L Calcium 9.0 (8.5-10.1) mg/dl Total Bilirubin 0.5 (0.2-1) mg/dl AST 22 (15-37) U/L ALT 19 (12-78) U/L Alkaline Phosphatase 182 H (45-117) U/L Total Protein 5.7 L (6.4-8.2) gm/dl Albumin 2.3 L (3.4-5.0) gm/dl Globulin 3.4 (2.5-4.0) gm/dl Albumin/Globulin Ratio 0.7 L (0.9-2) COVID-19 Eval Order SARS-CoV-2 (PCR) (Negative) 01/17/21 01/17/21 01/17/21 Range/Units 13:30 13:30 14:01 WBC 10.10 RBC 3.58 L Hgb 9.4 L Hct 30.2 L MCV 84.4 MCH 26.3 MCHC 31.1 L RDW Std Deviation 46.3 RDW Coeff of Saadia 14.9 H Plt Count 197 MPV 8.7 Immature Gran % (Auto) 0.3 Neut % (Auto) 90.8 Lymph % (Auto) 5.7 [place] % (Auto) 2.1 Eos % (Auto) 1.0 Baso % (Auto) 0.1 Neut # (Auto) 9.17 H Lymph # (Auto) 0.58 L [place] # (Auto) 0.21 Eos # (Auto) 0.10 Baso # (Auto) 0.01 Immature Gran # (Auto) 0.03 H Absolute Nucleated RBC Nucleated RBC % (auto) Neutrophils % (Manual) Band Neutrophils % Lymphocytes % (Manual) Prolymphocyte % Reactive Lymphs % (Man) Monocytes % (Manual) Eosinophils % (Manual) Basophils % (Manual) Metamyelocytes % (Man) Myelocytes % (Man) Promyelocytes % (Man) Blast Cells % (Manual) Plasma Cell % (Manual) Other Cells % Nucleated RBC % Neutrophils # (Manual) Band Neutrophils # Total Absolute Neuts Lymphocytes # (Manual) Prolymphocyte # Reactive Lymphs # Total Abs Lymphocytes Monocytes # (Manual) Eosinophils # (Manual) Basophils # (Manual) Metamyelocytes # (Man) Myelocytes # (Manual) Promyelocytes # (Man) Blast Cells # (Man) Plasma Cell # (Manual) Other Cells # Nucleated RBCs # (Man) Hypersegmented Neuts Hyposegmented Neuts Hypogranular Neuts Large Granular Lymphs # Lrg Granular Lymphs Hairy Cells Smudge Cells Toxic Granulation Toxic Vacuolation Dohle Bodies Yojana Rods Platelet Estimate Hypogranular Platelets Clumped Platelets Giant Platelets Platelet Satelliting RBC Morphology Polychromasia Hypochromasia Poikilocytosis Basophilic Stippling Anisocytosis Microcytosis Macrocytosis Spherocytes Pappenheimer Bodies Sickle Cells Target Cells Tear Drop Cells Ovalocytes Stomatocytes [place] Bodies Echinocytes Acanthocytes (Spur) Rouleaux RBC Agglutinates Schistocytes RBC Morph Comment Sezary Cell Sodium (136-145) mmol/L Potassium (3.5-5.1) mmol/L Chloride (98-107) mmol/L Carbon Dioxide (21-32) mmol/L Anion Gap (3-11) BUN (7-18) mg/dl Creatinine (0.6-1.2) mg/dl Est Cr Clr Drug Dosing ml/min Est GFR ( Amer) ml/min Est GFR (Non-Af Amer) ml/min BUN/Creatinine Ratio (10-20) Glucose (70-99) mg/dl Lactate (0.4-2.0) mmol/L Calcium (8.5-10.1) mg/dl Total Bilirubin (0.2-1) mg/dl AST (15-37) U/L ALT (12-78) U/L Alkaline Phosphatase (45-117) U/L Total Protein (6.4-8.2) gm/dl Albumin (3.4-5.0) gm/dl Globulin (2.5-4.0) gm/dl Albumin/Globulin Ratio (0.9-2) COVID-19 Eval Order Covid19 at [facility] SARS-CoV-2 (PCR) NEGATIVE (Negative) MDM Narrative I did evaluate the patient as noted above. The patient is presenting with an infected left leg. She was sent here from the wound care clinic. Her prior culture grew out Pseudomonas and Morganella. IV access was established. I did place an order for continuous cardiac monitoring. The monitor showed normal sinus rhythm at a rate of 82 bpm. I did order blood cultures. I did treat her with Zosyn IV. She was previously treated with Zosyn in October and states that she does not have a penicillin allergy. I did order and review the patient's blood work as noted in the electronic medical record. CBC shows a white count of 10 with a left shift. Hemoglobin is 9.4. Electrolytes are unremarkable. Creatinine is at baseline. COVID-19 screening is negative. I did discuss the case with the hospitalist and case management manager. She will be hospitalized for IV antibiotics and further care. Impression & Plan Cellulitis of left leg, Complicated wound infection, Infection, Pseudomonas, CKD (chronic kidney disease) stage 3, GFR 30-59 ml/min, Chronic anemia Discharge Plan Visit Data Chief Complaint: Infection, Wound Stated Complaint: CELLULITIS L FOOT, [id number] ED Provider: Maulik Boateng Discharge Problem: Cellulitis of left leg, Complicated wound infection, Infection, Pseudomonas, CKD (chronic kidney disease) stage 3, GFR 30-59 ml/min, Chronic anemia Patient Disposition: Admitted As Inpatient Forms Stand Alone Forms: My [facility] [place] Prescriptions Prescriptions: No Action pravastatin 20 mg tablet 20 mg PO DAILY RF: 0 leflunomide 10 mg tablet 10 mg PO DAILY RF: 0 desoximetasone 0.25 % ointment 1 applic topical DAILY PRN (Reason: skin irritation) Qty: 100 RF: 2 gentamicin 0.1 % ointment 1 applic topical DAILY 14 Days Qty: 30 RF: 1 hydroxychloroquine 200 mg tablet 400 mg PO DAILY RF: 0 aspirin 81 mg tablet,delayed release (DR/EC) 81 mg PO DAILY Qty: 30 RF: 0 prednisone 5 mg tablet 5 - 7.5 mg PO DAILY RF: 0 folic acid 1 mg Tablet 1 mg PO QAM 30 Days Qty: 30 RF: 1 Referrals Referrals: Svetlana Rosales CRNP [Primary Care Provider] - Discharge Problem: CKD (chronic kidney disease) stage 3, GFR 30-59 ml/min Qualifiers: Chronic kidney disease stage 3 subtype: unspecified whether 3a or 3b Qualified Code(s): N18.30 - Chronic kidney disease, stage 3 unspecified
[2021-01-17] MEDS ORDERED: PIPERACILLIN/TAZOBACTAM 4.5 GM/120 ML BAG IV ONE (13:56)
[2021-01-17] MEDS ORDERED: PIPERACILL/TAZOBAC CONSULT ACTIVE PRN (13:56)
[2021-01-17 14:07] LABS: Basophils # (auto) 0.01 K/uL (0-0.2); Basophils % (auto) 0.1 %; Hematocrit (blood only) 30.2 % (37-47); Hemoglobin 9.4 g/dL (12.0-16.0); Immature Granulocytes # (auto) 0.03 K/uL (0.00-0.02); Immature Granulocytes % (auto) 0.3 %; Lymphocytes # (auto) 0.58 K/uL (1.2-3.4); Lymphocytes % (auto) 5.7 %; Mean Corpuscular Hemoglobin 26.3 pg (25-34); Mean Corpuscular Hgb Conc 31.1 g/dL (32-36); Mean Corpuscular Volume 84.4 fL (80-100); Mean Platelet Volume 8.7 fL (7.4-10.4); Monocytes # (auto) 0.21 K/uL (0.11-0.59); Monocytes % (auto) 2.1 %; Neutrophils # (auto) 9.17 K/uL (1.4-6.5); Neutrophils % (auto) 90.8 %; Platelet Count 197 K/uL (130-400); RDW Coefficient of Variation 14.9 % (11.5-14.5); RDW Standard Deviation 46.3 fL (36.4-46.3); Red Blood Count 3.58 M/uL (4.2-5.4)
[2021-01-17 14:09] LABS: Albumin Level 2.3 gm/dl (3.4-5.0); BUN Creatinine Ratio 17.8 (10-20); Creatinine Clr Calc Pharmacy 36.1 ml/min; Est GFR (African American) 41.8 ml/min; Potassium 3.9 mmol/L (3.5-5.1)
[2021-01-17 14:12] LABS: Albumin Globulin Ratio 0.7 (0.9-2); Bilirubin,Total 0.5 mg/dl (0.2-1); Globulin 3.4 gm/dl (2.5-4.0); Total Protein 5.7 gm/dl (6.4-8.2)
[2021-01-17] MEDS ORDERED: SODIUM CHLORIDE 0.9% 1000ML 1,000 ML IV ONE (15:49)
--- NOTE | 2021-01-17 15:56 | History & Physical Report ---
Date of Service January 17, 2021 Assessment & Plan (1) Cellulitis of left leg: Plan: Zosyn will cover recent wound cultures - morganella morganii and pseudomonas If not improving add daptomycin Follow up blood cultures Lactate WNL (2) Hypotension: Plan: NSS 1L bolus now Continue LR @ 125ml/hr (3) Venous stasis of both lower extremities: Plan: Consult wound care nurse (4) Chronic venous insufficiency: Plan: Will need leg wraps once ulcers more healed (5) Fungal dermatitis: Plan: Continue nystatin powder, consider fluconazole if not improving per wound care recommendations (6) Peripheral arterial disease: Plan: Continue aspirin/pravastatin, pt declines further investigation of this with US as previously caused ulcers (7) Rheumatoid arthritis: Plan: Continue hydroxychloroquine, leflunomide and prednisone (8) Anemia: Plan: Hgb 9.4 from baseline 11.3, no bright red blood in stool, no melena. Monitor CBC in AM. Plan: VTE Prophylaxis - Lovenox Diet - regular Disposition - admit to med/tele Admission and Anticipated Discharge Date Admission Date: January 17, 2021 History of Present Illness Chief Complaint: Cellulitis Primary Care Provider: KARI Coughlin Dona Villalpando is a 75 year old female who presents to the ER on the advice of wound care clinic due to cellulitis and possible need for IV antibiotics. She has been following up since her prior discharge in November for bilateral venous stasis ulcers in the setting of chronic lymphedema and chronic venous insufficiency as well as a non-healing surgical wound on left thigh. She reportedly also has fungal dermatitis for which she has been using nystatin powder. Per wound care clinic note from today surgical left medial thigh wound is improving. Left foot wound is now cellulitic and main reason she was sent to the ER. Allergies Allergy/AdvReac Type Severity Reaction Status Date / Time amoxicillin [From Augmentin] Allergy Intermediate Rash Verified 01/17/21 10:37 cefadroxil Allergy Intermediate Rash Verified 01/17/21 10:37 clavulanic acid Allergy Intermediate Rash Verified 01/17/21 10:37 [From Augmentin] Sulfa (Sulfonamide Allergy Intermediate RASH Verified 01/17/21 10:37 Antibiotics) cefepime Allergy Unknown Unknown Verified 01/17/21 10:37 cephalexin [From Keflex] Allergy Unknown Unknown Verified 01/17/21 10:37 levofloxacin [From Levaquin] AdvReac Intermediate rash Verified 01/17/21 10:37 oxycodone AdvReac Mild NAUSEA Verified 01/17/21 10:37 Home Medications Medication Instructions Recorded Confirmed Type hydroxychloroquine 200 mg tablet 400 mg PO DAILY 08/06/18 01/17/21 History aspirin 81 mg tablet,delayed 81 mg PO DAILY #30 tab 10/29/19 01/17/21 Rx release pravastatin 20 mg tablet 20 mg PO DAILY 03/09/20 01/17/21 History leflunomide 10 mg tablet 10 mg PO DAILY 07/10/20 01/17/21 History prednisone 5 mg tablet 5 - 7.5 mg PO DAILY 11/16/20 01/17/21 History folic acid 1 mg tablet 1 mg PO QAM 30 Days #30 tab 11/23/20 01/17/21 Rx gentamicin 0.1 % topical ointment 1 applic TOPICAL DAILY 14 Days #30 12/03/20 01/17/21 Rx g desoximetasone 0.25 % topical 1 applic TOPICAL DAILY PRN #100 g 12/17/20 01/17/21 Rx ointment Past Med/Surg History Medical History Anemia Bacterial infection due to Pseudomonas Bacterial infection due to Serratia Cancer MELANOMA Cellulitis BILATERAL LEGS AND FEET, INPATIENT [facility] (JULY 2018) Cellulitis of left thigh Cellulitis of left thigh Chronic steroid use CKD (chronic kidney disease) stage 3, GFR 30-59 ml/min Folate deficiency Fracture of sacrum BILATERAL. ~2016, PHYSICAL THERAPY. USES WALKER HLD (hyperlipidemia) HTN (hypertension) No blood products PER PATIENT REQUEST Obesity Pneumonia AUGUST 2017 Pressure ulcer of upper thigh Rheumatoid arthritis Septic shock Surgical History History of cataract surgery BILATERAL History of colonoscopy History of surgical removal of skin lesion BACK History of total hip replacement RIGHT S/P debridement (11/29/19) Right Thigh wound debridement, sharp, greater than [address] Peter 11/29/2019 S/P revision of total hip RIGHT S/P JUAN-BSO Total knee replacement status BILATERAL Family History Father Non Hodgkin's lymphoma Mother Coronary heart disease Social History Smoking Status: Never smoker Second Hand Exposure: No; Hx Alcohol Use: No Hx Substance Use: No Preferred Language: [place] Helen[place] Communication Ability: Effective Heel Curver Required: No Beliefs That Will Affect Care: None marital status: Single Current Living Situation: Alone Current Living Situation Comment: lives at home, brother and niece help when needed. 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 Feels Safe at Home: Yes Assistive Devices: Glasses and Walker Review of Systems Review of Systems: All systems reviewed & are unremarkable except as noted in HPI & below Physical Exam Physical Exam: Patient declines me unwrapping her banadages to check her wounds today as they have already been checked at her wound care appointment and wrapped the same day. It is very painful for them to be unwrapped and wrapped up again. Constitutional: well developed and + obese; + not well nourished and no acute distress Respiratory: normal respiratory effort, lungs clear to auscultation Cardiovascular: Rate/Rhythm: regular rate and regular rhythm Heart Sounds: no murmur Extremities: + pedal edema (3+ to mid thighs) Unable to palpate peripheral pulses in feet as under bandages Gastrointestinal (Abdomen): normal bowel sounds, soft, nontender, no hepatosplenomegaly Skin: Wrapped wounds to medial thigh and bilateral feet with erythema present surrounding all three wrap extending to knee and up medial left thigh to groin Psychiatric: A+Ox3, euthymic affect Results & Data Results & Data ([facility]) Vital Signs (Past 12 Hours) Vital Signs Temp Pulse Resp BP Pulse Ox 01/17/21 15:01 79 23 98/62 L 99 01/17/21 14:31 81 26 H 149/44 H 98 01/17/21 14:02 82 27 H 145/52 H 98 01/17/21 13:30 89 35 H 01/17/21 13:20 84 26 H 98 01/17/21 11:52 35.9 C L 86 18 104/73 95 Diagnostic Findings None Medications Administered ER medications given: Zosyn 4.5g IV Code Status & VTE Plan Code Status DNR/DNI per patient wishes VTE Prophylaxis Plan VTE Prophylaxis will be ordered: Yes PG Care Time/CCT Total # of Minutes Spent Total Time Spent with Patient: Total time spent is greater than 50% in coordination of care (as documented) at patient's floor/unit and/or counseling patient: Coding Level of Care Code INT OBSERVATION CARE 70M LVL 3 Diagnoses Cellulitis of left leg L03.116 Chronic venous insufficiency I87.2 Venous stasis of both lower extremities I87.8 Rheumatoid arthritis M06.9 Rheumatoid arthritis location: unspecified site Rheumatoid factor presence: unspecified presence Fungal dermatitis B36.9 Hypotension I95.9 Peripheral arterial disease I73.9 Anemia D64.9 (1) Rheumatoid arthritis Rheumatoid arthritis location: unspecified site Rheumatoid factor presence: unspecified presence Qualified Code(s): M06.9 - Rheumatoid arthritis, unspecified
[2021-01-18] MEDS: PIPERACILLIN/TAZOBACTAM 3.375 GM in DEXTROSE 5% 100 ML IV SCH ×3 (00:11→15:38)
[2021-01-18] MEDS: LACTATED RINGER'S 1,000 ML IV SCH ×4 (00:12→23:55)
[2021-01-18 07:58] LABS: Basophils # (auto) 0.01 K/uL (0-0.2); Basophils % (auto) 0.1 %; Eosinophils # (auto) 0.29 K/uL (0-0.5); Eosinophils % (auto) 4.3 %; Hematocrit (blood only) 25.4 % (37-47); Hemoglobin 7.8 g/dL (12.0-16.0); Lymphocytes # (auto) 0.51 K/uL (1.2-3.4); Lymphocytes % (auto) 7.6 %; Mean Corpuscular Hemoglobin 26.1 pg (25-34); Mean Corpuscular Hgb Conc 30.7 g/dL (32-36); Mean Corpuscular Volume 84.9 fL (80-100); Mean Platelet Volume 8.9 fL (7.4-10.4); Monocytes # (auto) 0.41 K/uL (0.11-0.59); Monocytes % (auto) 6.1 %; Neutrophils % (auto) 81.9 %; Platelet Count 156 K/uL (130-400); RDW Standard Deviation 46.8 fL (36.4-46.3); Red Blood Count 2.99 M/uL (4.2-5.4); White Blood Count 6.72 K/uL (4.8-10.8)
[2021-01-18 08:26] LABS: Albumin Level 1.4 gm/dl (3.4-5.0); BUN Creatinine Ratio 19.1 (10-20); Calcium 7.6 mg/dl (8.5-10.1); Creatinine Clr Calc Pharmacy 48.3 ml/min; Est GFR (African American) 56.9 ml/min; Est GFR (Non-African American) 49.1 ml/min; Potassium 3.5 mmol/L (3.5-5.1)
[2021-01-18 08:40] LABS: Albumin Globulin Ratio 0.5 (0.9-2); Bilirubin,Total 0.5 mg/dl (0.2-1); Globulin 2.7 gm/dl (2.5-4.0); Total Protein 4.1 gm/dl (6.4-8.2)
--- NOTE | 2021-01-18 08:41 | Hospitalist Progress Note ---
Date of Service January 18, 2021 Assessment & Plan (1) Cellulitis of left leg: Plan: (1) Cellulitis of left leg: Zosyn will cover recent wound cultures 01/09- morganella morganii and pseudomonas If not improving add daptomycin Bcx pending Lactate WNL, WBC normal (2) Hypotension: NSS 1L in ED Continue LR @ 125ml/hr (3) Venous stasis of both lower extremities: Consult wound care nurse consider skin cream once ulcers more healed (4) Chronic venous insufficiency: Will need leg wraps once ulcers more healed (5) Fungal dermatitis: Continue nystatin powder, consider fluconazole if not improving per wound care recommendations (6) Peripheral arterial disease: Continue aspirin/pravastatin, pt declines further investigation of this with US as previously caused ulcers (7) Rheumatoid arthritis: Continue hydroxychloroquine, leflunomide and prednisone (8) Anemia: Hgb 9.4 from baseline 11.3, no bright red blood in stool, no melena. ---> down to 7.8 monitor CBC VTE Prophylaxis - Lovenox Diet - regular Disposition - admit to med/tele Code: DNR/DNI PT/OT: ordered (2) Surgical wound, non healing: (3) Edema of left lower leg: (4) Venous stasis ulcers of both lower extremities: (5) HTN (hypertension): (6) CKD (chronic kidney disease) stage 3, GFR 30-59 ml/min: (7) Hyperlipidemia: Admission and Anticipated Discharge Date Admission Date: January 17, 2021 Supervising Physician Co-Signing Physician Notes I personally examined the patient and verified all wood points of history and exam, discussed case, and agree with decision making with Dr Lucia. Feeling okay. Leg probably about the same. No new complaints. Notes that she was wondering about getting the Covid vaccinewondered how she might feel af terwards. Vitals noted, in general she is awake and alert appears frail and fatigued but no distress. HEENT normocephalic atraumatic mucous membranes moist. Bilateral lower extremities with diffuse venous stasis changesleft medial thigh with ulcer with greenish exudate consistent with Pseudomonas, has some surrounding erythema. No focal neuro deficits. Left lower extremity ulcer/pseudomonal cellulitiscontinue Zosyn for now. Supportive care, wound care. Continue to follow. Rheumatoid arthritis/immunocompromise statushad extensive discussion on the risks and benefits of different Covid vaccines, discussed likely side effects, but also discussed likely problems with actually getting Covid, and the probabilities of both. After careful discussion of things, I discussed that at least starting with 1 dose of an mRNA vaccine (noting that Pfizer seems to have a bit of a lower side effect profile than mode or not, but that monitoring is seems to be showing better data as a vaccine in general) would at least reduce her risk of from Covid, both doses would probably reduce risk of and hospitalization relatively significantly, but that given her understandable concern on side effects, it would be very reasonable to start a series of vaccines "open ended" with the first dose and see how she feels afterwards, since at least that would make a reasonable difference in her prognosis should she catch coronavirus. Otherwise as above. Subjective 75yo F here for cellulitis of left leg, has chronic wound on left thigh and left leg, PMH venous stasis post venous ablation, RA, HTN, HLD, expressedly denies DM. Patient states she was here last month for necrotic tissue removal from left thigh and has had open wound ever since, meets with wound clinic has home nursing care for wound states it has become smaller. Patient states she in in charge of her medication takes it daily, in charge of her own cooking cleaning bathing. Patient is very frustrated to be told to come to the hospital again by wound care clinic. Understands she needs IV abx as oral would not fix her infection. She describes redness and warmth but no pain, fever, chills, SOB nausea vomitting, last BM 2 days ago baseline occasional urinary incontinence has suction rick. Thigh bandage is stained yellow and dark, unsure urine or wound drainage. I am unsure if she understands that without IV abx she may become very sick. Asked patient if she's ever talked with palliative care or hospice before, patient denies this. Has had waist fitter in past doesn't like them since leg swelling never went down, assigns blame for swelling on either leg vein removal or US for DVT.. States she was placed on a blood thinner that prevents clots forever. Unsure if this is lovenox or aspirin. Review of Systems Review of Systems: Positive warmth, erythema Negative fever chills Negative headache dizziness Negative chest pain palpitations SOB Negative nausea vomitting diarrhea constipation Physical Exam Physical Exam: General: Well appearing, age appropriate Heart: RRR, +S1 S2, systolic murmur sternal border possible aortic stenosis Lungs: cta b/l, no wheezes/rales/rhonchi Abd: soft, NT/ND, +BS, wick rick present, no rash in abd crease Extremities: chronic venous stasis, bandages on left thigh stained yellow with discharge/urine, bandages on left lower leg, b/l erythema +1 pitting edema of lower extremities with peeling skin Results & Data Results & Data ([facility]) Vital Signs (Past 12 Hours) Vital Signs Temp Pulse Pulse Resp BP Pulse Ox Pulse Ox 01/18/21 07:27 36.7 C 76 19 108/62 98 01/18/21 03:09 37 C 84 16 119/74 96 01/18/21 02:58 82 01/17/21 22:01 88 01/17/21 21:36 36.9 C 90 16 126/66 98 98 Laboratory Results 01/18/21 01/18/21 Range/Units 07:27 07:27 WBC 6.72 (4.8-10.8) K/uL RBC 2.99 L (4.2-5.4) M/uL Hgb 7.8 L (12.0-16.0) g/dL Hct 25.4 L (37-47) % MCV 84.9 (80-100) fL MCH 26.1 (25-34) pg MCHC 30.7 L (32-36) g/dL RDW Std Deviation 46.8 H (36.4-46.3) fL RDW Coeff of Saadia 15.0 H (11.5-14.5) % Plt Count 156 (130-400) K/uL MPV 8.9 (7.4-10.4) fL Immature Gran % (Auto) 0.0 % Neut % (Auto) 81.9 % Lymph % (Auto) 7.6 % [place] % (Auto) 6.1 % Eos % (Auto) 4.3 % Baso % (Auto) 0.1 % Neut # (Auto) 5.50 (1.4-6.5) K/uL Lymph # (Auto) 0.51 L (1.2-3.4) K/uL [place] # (Auto) 0.41 (0.11-0.59) K/uL Eos # (Auto) 0.29 (0-0.5) K/uL Baso # (Auto) 0.01 (0-0.2) K/uL Immature Gran # (Auto) 0.00 (0.00-0.02) K/uL Sodium 142 (136-145) mmol/L Potassium 3.5 (3.5-5.1) mmol/L Chloride 114 H (98-107) mmol/L Carbon Dioxide 20 L (21-32) mmol/L Anion Gap 9.0 (3-11) BUN 21 H (7-18) mg/dl Creatinine 1.10 D (0.6-1.2) mg/dl Est Cr Clr Drug Dosing 48.3 ml/min Est GFR ( Amer) 56.9 ml/min Est GFR (Non-Af Amer) 49.1 ml/min BUN/Creatinine Ratio 19.1 (10-20) Glucose 65 L (70-99) mg/dl Calcium 7.6 L D (8.5-10.1) mg/dl Total Bilirubin 0.5 (0.2-1) mg/dl AST 15 (15-37) U/L ALT 16 (12-78) U/L Alkaline Phosphatase 129 H (45-117) U/L Total Protein 4.1 L D (6.4-8.2) gm/dl Albumin 1.4 L (3.4-5.0) gm/dl Globulin 2.7 (2.5-4.0) gm/dl Albumin/Globulin Ratio 0.5 L (0.9-2) Medications Administered Current Inpatient Medications Aspirin (Aspirin 81 Mg Ectab) 81 mg PO DAILY [facility] Stop: 02/17/21 08:59 Last Admin: 01/18/21 08:45 Dose: 81 mg Documented by: Enoxaparin Sodium (Enoxaparin Inj 40 Mg/0.4 Ml Syr) 40 mg SQ QAM [facility] Stop: 02/17/21 08:59 Last Admin: 01/18/21 08:44 Dose: 40 mg Documented by: Folic Acid (Folic Acid 1 Mg Tab) 1 mg PO QAM [facility] Stop: 02/17/21 08:59 Last Admin: 01/18/21 08:45 Dose: 1 mg Documented by: Hydroxychloroquine Sulfate (Hydroxychloroquine Sulfate 200 Mg Tab) 400 mg PO DAILY [facility] Stop: 02/17/21 08:59 Last Admin: 01/18/21 08:44 Dose: 400 mg Documented by: Lactated Ringer's (Lr) 1,000 mls @ 125 mls/hr IV .Q8H [facility] Stop: 02/16/21 21:35 Last Admin: 01/18/21 15:39 Dose: 125 mls/hr Documented by: Piperacillin Sod/Tazobactam (Sod 3.375 gm/ Dextrose) 115 mls @ 28.75 mls/hr IV Q8H [facility]; Protocol Stop: 01/24/21 21:59 Last Admin: 01/18/21 15:38 Dose: 28.8 mls/hr Documented by: Leflunomide (Leflunomide 10 Mg Tab) 10 mg PO DAILY [facility] Stop: 02/17/21 08:59 Last Admin: 01/18/21 08:44 Dose: 10 mg Documented by: Miscellaneous Information (Piperacill/Tazobac Consult Active) 1 ea N/A UD PRN PRN Reason: Consult Stop: 02/16/21 13:55 Pravastatin Sodium (Pravastatin Sod 20 Mg Tab) 20 mg PO DAILY [facility] Stop: 02/17/21 08:59 Last Admin: 01/18/21 08:45 Dose: 20 mg Documented by: Prednisone (Prednisone 5 Mg Tab) 5 mg PO Q2D@0900 [facility] Stop: 02/17/21 08:59 Last Admin: 01/18/21 08:45 Dose: 5 mg Documented by: Prednisone (Prednisone 5 Mg Tab) 7.5 mg PO Q2D@0900 [facility] Stop: 02/18/21 08:59 Resident Activity Tracking Resident Involvement: Resident Care Provided Care Provided: Adult [facility] (1) CKD (chronic kidney disease) stage 3, GFR 30-59 ml/min Chronic kidney disease stage 3 subtype: unspecified whether 3a or 3b Qualified Code(s): N18.30 - Chronic kidney disease, stage 3 unspecified (2) Hyperlipidemia Hyperlipidemia type: mixed hyperlipidemia Qualified Code(s): E78.2 - Mixed hyperlipidemia
[2021-01-18] MEDS: HYDROXYCHLOROQUINE SULFATE 200 MG TAB PO SCH (08:44)
[2021-01-18] MEDS: LEFLUNOMIDE 10 MG TAB PO SCH (08:44)
[2021-01-18] MEDS: ENOXAPARIN INJ 40 MG/0.4 ML SYR SQ SCH (08:44)
[2021-01-18] MEDS: FOLIC ACID 1 MG TAB PO SCH (08:45)
[2021-01-18] MEDS: ASPIRIN 81 MG ECTAB PO SCH (08:45)
[2021-01-18] MEDS: predniSONE 5 MG TAB PO SCH (08:45)
[2021-01-18] MEDS: PRAVASTATIN SOD 20 MG TAB PO SCH (08:45)
--- NOTE | 2021-01-18 19:43 | Billing Data ---
Date of Service January 18, 2021 Coding Level of Care Code 72251 Subseq Hosp Care Lvl 3
[2021-01-19] MEDS: PIPERACILLIN/TAZOBACTAM 3.375 GM in DEXTROSE 5% 100 ML IV SCH ×3 (00:25→16:26)
[2021-01-19] MEDS: LACTATED RINGER'S 1,000 ML IV SCH ×3 (08:44→20:08)
[2021-01-19] MEDS: PRAVASTATIN SOD 20 MG TAB PO SCH (08:54)
[2021-01-19] MEDS: FOLIC ACID 1 MG TAB PO SCH (08:54)
[2021-01-19] MEDS: predniSONE 5 MG TAB PO SCH (08:55)
[2021-01-19] MEDS: HYDROXYCHLOROQUINE SULFATE 200 MG TAB PO SCH (08:55)
[2021-01-19] MEDS: ASPIRIN 81 MG ECTAB PO SCH (08:56)
[2021-01-19] MEDS: LEFLUNOMIDE 10 MG TAB PO SCH (08:56)
[2021-01-19] MEDS: ENOXAPARIN INJ 40 MG/0.4 ML SYR SQ SCH (08:56)
[2021-01-19 10:01] LABS: Hematocrit (blood only) 29.1 % (37-47); Hemoglobin 8.9 g/dL (12.0-16.0); Mean Corpuscular Hemoglobin 26.3 pg (25-34); Mean Corpuscular Hgb Conc 30.6 g/dL (32-36); Mean Corpuscular Volume 85.8 fL (80-100); Mean Platelet Volume 8.8 fL (7.4-10.4); Platelet Count 169 K/uL (130-400); RDW Coefficient of Variation 14.9 % (11.5-14.5); RDW Standard Deviation 47.1 fL (36.4-46.3); Red Blood Count 3.39 M/uL (4.2-5.4); White Blood Count 5.42 K/uL (4.8-10.8)
[2021-01-19 10:20] LABS: BUN Creatinine Ratio 13.1 (10-20); Calcium 7.9 mg/dl (8.5-10.1); Creatinine Clr Calc Pharmacy 36.6 ml/min; Est GFR (African American) 40.7 ml/min; Est GFR (Non-African American) 35.1 ml/min; Potassium 3.3 mmol/L (3.5-5.1)
[2021-01-19] MEDS ORDERED: POTASSIUM CHLORIDE CRTAB 20 MEQ TABCR PO STA (12:38)
--- NOTE | 2021-01-19 19:08 | Hospitalist Progress Note ---
Date of Service January 19, 2021 Assessment & Plan (1) Cellulitis of left leg: Plan: With possible sepsis present on admission, possible septic shock given hypotensiongiven her immune compromise with her rheumatoid arthritis and chronic medications, I am not sure if she can really mount a true SIRS response, and certainly she would have every reason to have been septic given that she was also bacteremic on admission. For now assume all of this is pseudomonal, she is on Zosyn which will cover. (2) Infection, Pseudomonas: Plan: Gram-negative bacteremia present on admissionpresumably Pseudomonas, might be otherwisefor now continue Zosyn pending identification and sensitivities. Likely will need 14 days of IV antibiotics given severe immunocompromise status and ongoing open wound, will need to continue to discuss planning of this with patient. Because of her comorbidities including her rheumatoid arthritis, I would prefer to keep her off of a quinolone, and feel that even with the cumbersome nature of having a set up IVs, that would be preferable rather than putting her through the connective tissue type risks of being on a quinolone for this. (3) Hypotension: Plan: Improved, now somewhat hypertensive (4) HTN (hypertension): Plan: Follow. (5) Rheumatoid arthritis: Plan: Continue home leflunomide Plaquenil and prednisone (6) Venous stasis ulcer of left lower leg with edema of left lower leg: Plan: Local wound care as well as antibiotics (7) DVT prophylaxis: Plan: Lovenox (8) Discharge planning issues: Plan: IV antibiotics will likely need to be arrangedsee above. For now need to have ID and sensitivity on cultures before being able to determine final regimen. Admission and Anticipated Discharge Date Admission Date: January 17, 2021 Subjective Feeling about the same. Gets very scared and tearful as I discussed the positive blood culture, try to offer reassurance and explained the plan. No other new complaints. Review of Systems Review of Systems: All systems reviewed & are unremarkable except as noted in HPI & below Physical Exam Physical Exam: In general she is awake and alert pleasant no distress. HEENT normocephalic atraumatic mucous membranes moist. Breathing unlabored no accessory muscle use good effort. Skin shows improved erythema of her medial thigh with less exudate, otherwise no rashes no pallor or icterus. Neuro without focal deficits. Results & Data Results & Data ([facility]) Vital Signs (Past 12 Hours) Vital Signs Temp Pulse Pulse Resp BP Pulse Ox 01/19/21 14:19 71 01/19/21 11:24 98.2 F 76 18 189/82 H 98 01/19/21 08:06 98.2 F 73 18 149/73 H 98 01/19/21 08:03 69 PG Care Time/CCT Total # of Minutes Spent Total Time Spent with Patient: Total time spent is greater than 50% in coordination of care (as documented) at patient's floor/unit and/or counseling patient: Coding Level of Care Code 37558 Subseq Hosp Care Lvl 3 Diagnoses Cellulitis of left leg L03.116 Infection, Pseudomonas A49.8 Hypotension I95.9 HTN (hypertension) I10 Rheumatoid arthritis M06.9 Rheumatoid arthritis location: unspecified site Rheumatoid factor presence: unspecified presence Venous stasis ulcer of left lower leg with edema of left lower leg I83.029; I83.892; L97.929; R60.9 DVT prophylaxis Z29.9 Discharge planning issues Z02.9 (1) Rheumatoid arthritis Rheumatoid arthritis location: unspecified site Rheumatoid factor presence: unspecified presence Qualified Code(s): M06.9 - Rheumatoid arthritis, unspecified
[2021-01-20] MEDS: PIPERACILLIN/TAZOBACTAM 3.375 GM in DEXTROSE 5% 100 ML IV SCH ×4 (00:04→23:37)
[2021-01-20] MEDS: LACTATED RINGER'S 1,000 ML IV SCH ×2 (04:23→11:54)
[2021-01-20] MEDS: predniSONE 5 MG TAB PO SCH (08:34)
[2021-01-20] MEDS: ASPIRIN 81 MG ECTAB PO SCH (08:34)
[2021-01-20] MEDS: LEFLUNOMIDE 10 MG TAB PO SCH (08:34)
[2021-01-20] MEDS: ENOXAPARIN INJ 40 MG/0.4 ML SYR SQ SCH (08:34)
[2021-01-20] MEDS: PRAVASTATIN SOD 20 MG TAB PO SCH (08:34)
[2021-01-20] MEDS: FOLIC ACID 1 MG TAB PO SCH (08:35)
[2021-01-20] MEDS: HYDROXYCHLOROQUINE SULFATE 200 MG TAB PO SCH (08:35)
[2021-01-20 09:41] LABS: Basophils # (auto) 0.01 K/uL (0-0.2); Basophils % (auto) 0.2 %; Eosinophils # (auto) 0.39 K/uL (0-0.5); Eosinophils % (auto) 7.4 %; Hematocrit (blood only) 28.1 % (37-47); Hemoglobin 8.5 g/dL (12.0-16.0); Immature Granulocytes # (auto) 0.01 K/uL (0.00-0.02); Immature Granulocytes % (auto) 0.2 %; Lymphocytes # (auto) 0.69 K/uL (1.2-3.4); Lymphocytes % (auto) 13.1 %; Mean Corpuscular Hemoglobin 25.8 pg (25-34); Mean Corpuscular Hgb Conc 30.2 g/dL (32-36); Mean Corpuscular Volume 85.2 fL (80-100); Monocytes # (auto) 0.38 K/uL (0.11-0.59); Monocytes % (auto) 7.2 %; Neutrophils # (auto) 3.78 K/uL (1.4-6.5); Neutrophils % (auto) 71.9 %; Platelet Count 181 K/uL (130-400); RDW Coefficient of Variation 14.9 % (11.5-14.5); RDW Standard Deviation 46.8 fL (36.4-46.3); White Blood Count 5.26 K/uL (4.8-10.8)
[2021-01-20 10:06] LABS: BUN Creatinine Ratio 13.9 (10-20); Calcium 7.9 mg/dl (8.5-10.1); Creatinine Clr Calc Pharmacy 43.5 ml/min; Est GFR (African American) 48.7 ml/min; Potassium 3.7 mmol/L (3.5-5.1)
--- NOTE | 2021-01-20 16:23 | Hospitalist Progress Note ---
Date of Service January 20, 2021 Assessment & Plan (1) Cellulitis of left leg: Plan: With possible sepsis present on admission, possible septic shock given hypotensiongiven her immune compromise with her rheumatoid arthritis and chronic medications, I am not sure if she can really mount a true SIRS response, and certainly she would have every reason to have been septic given that she was also bacteremic on admission. Pending speciation of her blood culture I have to continue to assume this is pseudomonal, she is on Zosyn which will cover. (2) Infection, Pseudomonas: Plan: Gram-negative bacteremia present on admissionpresumably Pseudomonas, might be otherwisefor now continue Zosyn pending identification and sensitivities. Likely will need 14 days of IV antibiotics given severe immunocompromise status and ongoing open wound, will need to continue to discuss planning of this with patient because right now she is so overwhelmed with things that right now her stated plan would be just to stay in the hospital for 14 dayswhich I discussed we would not want to have such concrete plans this early in her treatment. Because of her comorbidities including her rheumatoid arthritis, I would prefer to keep her off of a quinolone, and feel that even with the cumbersome nature of having a set up IVs, that would be preferable rather than putting her through the connective tissue type risks of being on a quinolone for this. (3) Hypotension: Plan: Now resolved (4) HTN (hypertension): Plan: Follow. No clear need for intervention right now (5) Rheumatoid arthritis: Plan: Continue home leflunomide Plaquenil and prednisone, with hypotension resolving does not appear to need stress dosing of steroids (6) Venous stasis ulcer of left lower leg with edema of left lower leg: Plan: Local wound care as well as antibiotics (7) DVT prophylaxis: Plan: Lovenox (8) Discharge planning issues: Plan: IV antibiotics will likely need to be arrangedsee above. For now need to have ID and sensitivity on cultures before being able to determine final regimen. Plan: Skin ulcers clarificationplease see wound nursing documentation for more details and I would be able to provide, but her left medial thigh appears to be a venous stasis partial-thickness wound that is healing, and she has posterior ankle right leg on staged partial-thickness venous leg ulcer left leg all present on admissioncontinue wound care. Admission and Anticipated Discharge Date Admission Date: January 17, 2021 Subjective No new complaints. Still worried about her overall situation, but no new physical symptoms. Review of Systems Review of Systems: All systems reviewed & are unremarkable except as noted in HPI & below Physical Exam Physical Exam: In general she is awake and alert pleasant no distress. HEENT normocephalic atraumatic mucous membranes moist. Breathing unlabored no accessory muscle use good effort. Skin shows ulcer medial thigh with thin less copious exudate and minimal surrounding erythema, venous stasis changes elsewhere. Results & Data Results & Data ([facility]) Vital Signs (Past 12 Hours) Vital Signs Temp Pulse Pulse Resp BP BP Pulse Ox 01/20/21 15:43 69 01/20/21 15:41 98.1 F 70 18 146/82 H 97 01/20/21 12:25 98.6 F 71 18 161/89 H 97 01/20/21 08:05 97.9 F 66 18 158/80 H 97 01/20/21 07:34 63 PG Care Time/CCT Total # of Minutes Spent Total Time Spent with Patient: Total time spent is greater than 50% in coordination of care (as documented) at patient's floor/unit and/or counseling patient: Coding Level of Care Code 52917 Subseq Hosp Care Lvl 3 Diagnoses Cellulitis of left leg L03.116 Infection, Pseudomonas A49.8 Hypotension I95.9 HTN (hypertension) I10 Rheumatoid arthritis M06.9 Rheumatoid arthritis location: unspecified site Rheumatoid factor presence: unspecified presence Venous stasis ulcer of left lower leg with edema of left lower leg I83.029; I83.892; L97.929; R60.9 DVT prophylaxis Z29.9 Discharge planning issues Z02.9 (1) Rheumatoid arthritis Rheumatoid arthritis location: unspecified site Rheumatoid factor presence: unspecified presence Qualified Code(s): M06.9 - Rheumatoid arthritis, unspecified
[2021-01-21 07:46] LABS: Creatinine Clr Calc Pharmacy 42.1 ml/min; Est GFR (African American) 48.3 ml/min; Est GFR (Non-African American) 41.6 ml/min
[2021-01-21] MEDS: PIPERACILLIN/TAZOBACTAM 3.375 GM in DEXTROSE 5% 100 ML IV SCH ×2 (08:02→15:28)
[2021-01-21] MEDS: predniSONE 5 MG TAB PO SCH (08:18)
[2021-01-21] MEDS: ASPIRIN 81 MG ECTAB PO SCH (08:18)
[2021-01-21] MEDS: ENOXAPARIN INJ 40 MG/0.4 ML SYR SQ SCH (08:18)
[2021-01-21] MEDS: FOLIC ACID 1 MG TAB PO SCH (08:18)
[2021-01-21] MEDS: LEFLUNOMIDE 10 MG TAB PO SCH (08:18)
[2021-01-21] MEDS: PRAVASTATIN SOD 20 MG TAB PO SCH (08:18)
[2021-01-21] MEDS: HYDROXYCHLOROQUINE SULFATE 200 MG TAB PO SCH (08:18)
--- NOTE | 2021-01-21 10:35 | Hospitalist Progress Note ---
Date of Service January 21, 2021 Assessment & Plan (1) Cellulitis of left leg: Plan: With possible sepsis present on admission, possible septic shock given hypotensiongiven her immune compromise with her rheumatoid arthritis and chronic medications, I am not sure if she can really mount a true SIRS response, and certainly she would have every reason to have been septic given that she was also bacteremic on admission. Discussed with micro lab this morningblood cu lture is still officially pending, they are suspecting that while it will not be Pseudomonas aeruginosa, it would likely be a close cousin type of a bacteria. Continue Zosyn pending final sensitivities, then hopefully be able to streamline to something that may be more amenable to outpatient regimen (2) Infection, Pseudomonas: Plan: Gram-negative bacteremia present on admissionsee aboveprobably will not actually be Pseudomonas per se, but likely a very close cousin bacteria for now continue Zosyn pending identification and sensitivities. Likely will need 14 days of IV antibiotics given severe immunocompromise status and ongoing open wound, will need to continue to discuss planning of this with patient because right now she is so overwhelmed with things that right now her stated plan would be just to stay in the hospital for 14 dayswhich I discussed we would not want to have such concrete plans this early in her treatment. Because of her comorbidities including her rheumatoid arthritis, I would prefer to keep her off of a quinolone, and feel that even with the cumbersome nature of having a set up IVs, that would be preferable rather than putting her through the connective tissue type risks of being on a quinolone for this. (3) Hypotension: Plan: Now resolved is actually somewhat hypertensive, but no symptoms (4) HTN (hypertension): Plan: Follow. No clear need for intervention right now (5) Rheumatoid arthritis: Plan: Continue home leflunomide Plaquenil and prednisone, with hypotension resolving does not appear to need stress dosing of steroids (6) Venous stasis ulcer of left lower leg with edema of left lower leg: Plan: Local wound care, antibiotics for infected ulcer/bacteremia. Start compression, PT/OT, encouraged movement as best as possible. Discussed venous stasis in general, as well as specific planning for heremphasizing movement and compression (7) DVT prophylaxis: Plan: Lovenox (8) Discharge planning issues: Plan: IV antibiotics will likely need to be arrangedsee above. For now need to have ID and sensitivity on cultures before being able to determine final regimen. Plan: Skin ulcers clarificationplease see wound nursing documentation for more details and I would be able to provide, but her left medial thigh appears to be a venous stasis partial-thickness wound that is healing, and she has posterior ankle right leg on staged partial-thickness venous leg ulcer left leg all present on admissioncontinue wound care. Admission and Anticipated Discharge Date Admission Date: January 17, 2021 Subjective Still worried about getting better. Notes that even after a venous stasis procedure last year she still has basically the same degree of stasis, or worse. She tries to do as much as she can at home taking care of herself. Mostly however, today's only real "acute" complaints are just feeling stressed and overwhelmed at the situation. Review of Systems Review of Systems: All systems reviewed & are unremarkable except as noted in HPI & below Physical Exam Physical Exam: In general she is awake and alert pleasantly anxious but calmed with reassurance and long discussions, no distress. HEENT normocephalic atraumatic mucous membranes moist. Breathing unlabored no accessory muscle use good effort. Bilateral lower extremities left worse than right with venous stasis changes and edema, her medial left thigh wound does not show much of any exudate today no surrounding erythema, she has chronic bilateral lower extremity venous stasis changes most pronounced in the shins. Her feet are wrapped in gauze Results & Data Results & [facility]) Vital Signs (Past 12 Hours) Vital Signs Temp Pulse Pulse Resp BP Pulse Ox 01/21/21 07:57 97.7 F 66 16 169/91 H 95 01/21/21 07:26 65 01/21/21 03:32 97.7 F 64 18 153/81 H 96 01/20/21 23:57 97.5 F L 64 14 141/73 H 97 01/20/21 23:00 67 PG Care Time/CCT Total # of Minutes Spent Total Time Spent with Patient: Total time spent is greater than 50% in coordination of care (as documented) at patient's floor/unit and/or counseling patient: Coding Level of Care Code 90846 Subseq Hosp Care Lvl 3 Diagnoses Cellulitis of left leg L03.116 Infection, Pseudomonas A49.8 Hypotension I95.9 HTN (hypertension) I10 Rheumatoid arthritis M06.9 Rheumatoid arthritis location: unspecified site Rheumatoid factor presence: unspecified presence Venous stasis ulcer of left lower leg with edema of left lower leg I83.029; I83.892; L97.929; R60.9 DVT prophylaxis Z29.9 Discharge planning issues Z02.9 (1) Rheumatoid arthritis Rheumatoid arthritis location: unspecified site Rheumatoid factor presence: unspecified presence Qualified Code(s): M06.9 - Rheumatoid arthritis, unspecified
[2021-01-21] MEDS ORDERED: NYSTATIN POWDER 15GM BTL EXT PRN (22:09)
[2021-01-22] MEDS: PIPERACILLIN/TAZOBACTAM 3.375 GM in DEXTROSE 5% 100 ML IV SCH ×3 (00:17→15:24)
[2021-01-22 07:53] LABS: Basophils # (auto) 0.03 K/uL (0-0.2); Basophils % (auto) 0.6 %; Eosinophils # (auto) 0.39 K/uL (0-0.5); Eosinophils % (auto) 7.9 %; Hematocrit (blood only) 32.3 % (37-47); Hemoglobin 9.8 g/dL (12.0-16.0); Immature Granulocytes # (auto) 0.03 K/uL (0.00-0.02); Immature Granulocytes % (auto) 0.6 %; Lymphocytes % (auto) 24.4 %; Mean Corpuscular Hemoglobin 26.3 pg (25-34); Mean Corpuscular Hgb Conc 30.3 g/dL (32-36); Mean Corpuscular Volume 86.8 fL (80-100); Mean Platelet Volume 8.5 fL (7.4-10.4); Monocytes # (auto) 0.38 K/uL (0.11-0.59); Monocytes % (auto) 7.7 %; Neutrophils # (auto) 2.88 K/uL (1.4-6.5); Neutrophils % (auto) 58.8 %; Platelet Count 180 K/uL (130-400); RDW Coefficient of Variation 14.8 % (11.5-14.5); RDW Standard Deviation 47.1 fL (36.4-46.3); Red Blood Count 3.72 M/uL (4.2-5.4); White Blood Count 4.91 K/uL (4.8-10.8)
[2021-01-22] MEDS: LEFLUNOMIDE 10 MG TAB PO SCH (08:00)
[2021-01-22] MEDS: ASPIRIN 81 MG ECTAB PO SCH (08:00)
[2021-01-22] MEDS: ENOXAPARIN INJ 40 MG/0.4 ML SYR SQ SCH (08:00)
[2021-01-22] MEDS: predniSONE 5 MG TAB PO SCH (08:00)
[2021-01-22] MEDS: FOLIC ACID 1 MG TAB PO SCH (08:00)
[2021-01-22] MEDS: HYDROXYCHLOROQUINE SULFATE 200 MG TAB PO SCH (08:00)
[2021-01-22] MEDS: PRAVASTATIN SOD 20 MG TAB PO SCH (08:00)
[2021-01-22 08:22] LABS: BUN Creatinine Ratio 13.7 (10-20); Calcium 8.7 mg/dl (8.5-10.1); Creatinine Clr Calc Pharmacy 36.6 ml/min; Est GFR (African American) 40.7 ml/min; Est GFR (Non-African American) 35.1 ml/min
--- NOTE | 2021-01-22 15:37 | Hospitalist Progress Note ---
Date of Service January 22, 2021 Assessment & Plan (1) Cellulitis of left leg: Plan: With possible sepsis present on admission, possible septic shock given hypotensiongiven her immune compromise with her rheumatoid arthritis and chronic medications, I am not sure if she can really mount a true SIRS response, and certainly she would have every reason to have been septic given that she was also bacteremic on admission. - Blood culture with Pseudomonas stutzeri; sensitive to FLQ and Bactrim. -> Given this is not a Gram(-) bacteremia in the Enterobacteriaceae family, I do think IV abx are warranted for the full treatment. Could consider ID consult. -> Discussed with patient; she is wary about going to SNF as she got a large prior bill. If billing is worked out, she may be willing. (2) Infection, Pseudomonas: Plan: Pseudomonas stutzeri bacteremia present on admission. - As above (3) HTN (hypertension): Plan: BP is 165/85. - Follow. (4) Hypotension: Plan: Now resolved. (5) Rheumatoid arthritis: Plan: - Continue home leflunomide, Plaquenil, and prednisone. 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 - Local wound care, antibiotics for infected ulcer/bacteremia. - Start compression, PT/OT, encouraged movement as best as possible. (7) DVT prophylaxis: Plan: Lovenox (8) Discharge planning issues: Plan: Skin ulcers clarificationplease see wound nursing documentation for more details and I would be able to provide, but her left medial thigh appears to be a venous stasis partial-thickness wound that is healing, and she has posterior ankle right leg on staged partial-thickness venous leg ulcer left leg all present on admissioncontinue wound care. Admission and Anticipated Discharge Date Admission Date: January 17, 2021 Subjective Doing well today. No major issues. She is not excited about going to rehab as it cost her a big bill last time when insurance didn't cover her entire stay. Physical Exam Constitutional: WD/WN, vitals as above Eyes: EOM intact bilaterally; no conjunctival abnormality ENMT: external ear and nose normal, oropharynx normal Neck: trachea midline, no thyromegaly normal visual inspection Respiratory: normal respiratory effort, lungs clear to auscultation no respiratory distress Cardiovascular: RRR, no murmur, no edema Gastrointestinal (Abdomen): Inspection/Auscultation: abdomen normal to inspection; abdomen not distended Musculoskeletal: no cyanosis or clubbing, extremities motor strength 5/5 Skin: no rashes, warm and dry Neurologic: moves all extremities and awake Psychiatric: Orientation: alert, oriented to person and cooperative Results & Data Results & Data ([facility]) Vital Signs (Past 12 Hours) Vital Signs Temp Pulse Pulse Resp BP BP Pulse Ox 01/22/21 15:20 36.7 C 72 20 165/84 H 95 01/22/21 11:53 37 C 65 21 182/78 H 95 01/22/21 11:35 36.6 C 63 20 171/79 H 97 01/22/21 07:39 36.5 C 65 22 181/75 H 95 01/22/21 07:37 57 L PG Care Time/CCT Total # of Minutes Spent Total Time Spent with Patient: Total time spent is greater than 50% in coordination of care (as documented) at patient's floor/unit and/or counseling patient: Coding Level of Care Code 21030 Subseq Hosp Care Lvl 2 Diagnoses Cellulitis of left leg L03.116 Infection, Pseudomonas A49.8 Hypotension I95.9 HTN (hypertension) I10 Rheumatoid arthritis M06.9 Rheumatoid arthritis location: unspecified site Rheumatoid factor presence: unspecified presence Venous stasis ulcer of left lower leg with edema of left lower leg I83.029; I83.892; L97.929; R60.9 DVT prophylaxis Z29.9 Discharge planning issues Z02.9 (1) Rheumatoid arthritis Rheumatoid arthritis location: unspecified site Rheumatoid factor presence: unspecified presence Qualified Code(s): M06.9 - Rheumatoid arthritis, unspecified
[2021-01-23] MEDS: PIPERACILLIN/TAZOBACTAM 3.375 GM in DEXTROSE 5% 100 ML IV SCH ×2 (00:01→08:29)
[2021-01-23 08:17] LABS: Hemoglobin 9.1 g/dL (12.0-16.0); Mean Corpuscular Hemoglobin 25.9 pg (25-34); Mean Corpuscular Hgb Conc 30.3 g/dL (32-36); Mean Corpuscular Volume 85.2 fL (80-100); Mean Platelet Volume 8.8 fL (7.4-10.4); Platelet Count 180 K/uL (130-400); RDW Coefficient of Variation 14.8 % (11.5-14.5); RDW Standard Deviation 46.4 fL (36.4-46.3); Red Blood Count 3.52 M/uL (4.2-5.4); White Blood Count 4.89 K/uL (4.8-10.8)
[2021-01-23] MEDS: PRAVASTATIN SOD 20 MG TAB PO SCH (08:30)
[2021-01-23] MEDS: predniSONE 5 MG TAB PO SCH (08:30)
[2021-01-23] MEDS: ASPIRIN 81 MG ECTAB PO SCH (08:30)
[2021-01-23] MEDS: ENOXAPARIN INJ 40 MG/0.4 ML SYR SQ SCH (08:30)
[2021-01-23] MEDS: HYDROXYCHLOROQUINE SULFATE 200 MG TAB PO SCH (08:30)
[2021-01-23] MEDS: FOLIC ACID 1 MG TAB PO SCH (08:30)
[2021-01-23] MEDS: LEFLUNOMIDE 10 MG TAB PO SCH (08:30)
[2021-01-23 08:46] LABS: BUN Creatinine Ratio 13.8 (10-20); Calcium 8.7 mg/dl (8.5-10.1); Creatinine Clr Calc Pharmacy 35.8 ml/min; Est GFR (African American) 39.7 ml/min; Est GFR (Non-African American) 34.3 ml/min; Magnesium 1.7 mg/dl (1.8-2.4); Potassium 3.8 mmol/L (3.5-5.1)
[2021-01-23] MEDS ORDERED: diphenhydrAMINE Capsule 25 MG CAP PO PRN (13:08)
[2021-01-23] MEDS ORDERED: CIPROFLOXACIN / D5W 400 MG/200 ML BAG IV SCH (13:15)
--- NOTE | 2021-01-23 14:08 | Hospitalist Progress Note ---
Date of Service January 23, 2021 Assessment & Plan (1) Cellulitis of left leg: Plan: With possible sepsis present on admission, possible septic shock given hypotensiongiven her immune compromise with her rheumatoid arthritis and chronic medications, I am not sure if she can really mount a true SIRS response, and certainly she would have every reason to have been septic given that she was also bacteremic on admission. - Blood culture with Pseudomonas stutzeri; sensitive to FLQ and Bactrim. -> Given this is not a Gram(-) bacteremia in the Enterobacteriaceae family, it was thought that patient would require full 14 days of IV antibiotic therapy. -> Patient extremely reluctant to [facility] facility given the cost and financial burden -> I have discussed this in great detail with infectious disease (as up-to-date does not recommend IV antibiotic therapy for Pseudomonas bacteremia given adequate bioavailability with some oral agents) -> Would not use Bactrim given her underlying renal impairment and risk for acute renal failure -> Cipro would be an adequate choice. She does have a purported allergy to Levaquin but also has a reported allergy to amoxicillin and is currently tolerating Zosyn -> Plan is to switch to Cipro (as recommended by infectious diseaseske with Dr. Rocael uQinonez). Will monitor for an additional 24 hours to ensure patient does not have an adverse reaction. As needed Benadryl ordered. If Benadryl needed, stop Cipro! -> If patient tolerates this, can consider discharged home with continued antib iotic therapy (to conclude on 01/31) -> Will monitor closely for agitation (as this is a risk with quinolones in the elderly population) if that occurs, that would be an indication to transition back to Zosyn to complete full course of IV antibiotics -> Although Pseudomonas not known to migrate and cause endocarditis, she does have a murmur that she reports she was unaware of. I suspect this is likely chronic but will obtain an echocardiogram to rule out vegetation (which if noted would indicate need for IV antibiotic therapy for prolonged course) (2) Infection, Pseudomonas: Plan: Pseudomonas stutzeri bacteremia present on admission. - As above (3) HTN (hypertension): (4) Hypotension: Plan: Now resolved. (5) Rheumatoid arthritis: Plan: - Continue home leflunomide, Plaquenil, and prednisone. 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 - Local wound care, antibiotics for infected ulcer/bacteremia. - Start compression, PT/OT, encouraged movement as best as possible. (7) DVT prophylaxis: Plan: Lovenox (8) Discharge planning issues: Plan: -Patient very reluctant to [facility] facility due to financial burden -Attempting transition of antibiotic therapy to Cipro (with additional monitoring to ensure no adverse reaction/allergic reaction) -If patient tolerates, can consider discharge to home with oral antibiotic therapy along with home PT/OT and visiting nurses Plan: Skin ulcers clarificationplease see wound nursing documentation for more details and I would be able to provide, but her left medial thigh appears to be a venous stasis partial-thickness wound that is healing, and she has posterior ankle right leg on staged partial-thickness venous leg ulcer left leg all present on admissioncontinue wound care. Admission and Anticipated Discharge Date Admission Date: January 17, 2021 Subjective Patient seen on daily rounds today. Vocalizes no significant complaints or concerns. Denies fevers, chills, chest pain, shortness of breath, abdominal pain, nausea or vomiting. Follows wound clinic and treated for cellulitis of the left leg prior to presentation. Wound cultures grew Pseudomonas and Morganella. Was sent to the ED for admission for IV antibiotic therapy. Subsequently found to have Pseudomonas stuterzi bacteremia. Currently on Zosyn despite a reported allergy to penicillin. Currently denies a rash. No rash reported per nursing staff. Patient does live alone with family close by. Hopeful to go back home Review of Systems Review of Systems: All systems reviewed and are unremarkable except as noted in HPI and below Denies fevers, chills, headache, nasal congestion, sore throat, cough, chest pain, shortness of breath, palpitations, orthopnea, PND, abdominal pain, nausea, vomiting, diarrhea, constipation, dysuria, hematuria, frequency, back pain, joint pain or swelling, easy bruising or bleeding, skin lesions or rashes. Physical Exam Physical Exam: General: Resting comfortably in her hospital bed. Does not appear ill or toxic. NAD. HEENT: Head is AT/NC buccal mucosa is moist and pink Neck: No JVD. Negative hepatojugular reflex Cardiac: RRR with 2/6 to 3/6 TOBI Lungs: CTA without W/R/R Abdomen: Normoactive X4. Soft and nontender in all quadrants. Extremities: Chronic lymphedema noted of the bilateral lower extremities that are currently wrapped in Kerlix. Wound nursing on board. Nursing images reviewed Neuro: A&O X4 cranial nerves II through XII are grossly intact no focal neuro deficits Skin: See above Psych: Appropriate affect pleasant and cooperative Results & Data Results & Data ([facility]) Vital Signs (Past 12 Hours) Vital Signs Temp Pulse Resp BP Pulse Ox 01/23/21 06:58 36.5 C 65 18 180/78 H 96 01/23/21 03:07 36.7 C 62 18 156/82 H 96 Laboratory Results 01/23/21 07:41 01/23/21 07:41 PG Care Time/CCT Total # of Minutes Spent Total Time Spent with Patient: Total time spent is greater than 50% in coordination of care (as documented) at patient's floor/unit and/or counseling patient: C[place] [address] Subseq Hosp Care Lvl 3 Patient Type Established Medical Decision Making High Complexity Diagnoses Cellulitis of left leg L03.116 Infection, Pseudomonas A49.8 HTN (hypertension) I10 Hypotension I95.9 Rheumatoid arthritis M06.9 Rheumatoid arthritis location: unspecified site Rheumatoid factor presence: unspecified presence Venous stasis ulcer of left lower leg with edema of left lower leg I83.029; I83.892; L97.929; R60.9 DVT prophylaxis Z29.9 Discharge planning issues Z02.9 (1) Rheumatoid arthritis Rheumatoid arthritis location: unspecified site Rheumatoid factor presence: unspecified presence Qualified Code(s): M06.9 - Rheumatoid arthritis, unspecified
--- NOTE | 2021-01-23 17:17 | XCELERA ---
[id number]
[2021-01-23] MEDS ORDERED: diphenhydrAMINE Capsule 25 MG CAP PO ONE (22:33)
[2021-01-24 07:18] LABS: Basophils # (auto) 0.01 K/uL (0-0.2); Basophils % (auto) 0.1 %; Eosinophils # (auto) 0.58 K/uL (0-0.5); Eosinophils % (auto) 7.5 %; Hematocrit (blood only) 33.7 % (37-47); Hemoglobin 10.2 g/dL (12.0-16.0); Immature Granulocytes # (auto) 0.05 K/uL (0.00-0.02); Immature Granulocytes % (auto) 0.6 %; Lymphocytes # (auto) 1.14 K/uL (1.2-3.4); Lymphocytes % (auto) 14.7 %; Mean Corpuscular Hemoglobin 26.1 pg (25-34); Mean Corpuscular Hgb Conc 30.3 g/dL (32-36); Mean Corpuscular Volume 86.2 fL (80-100); Mean Platelet Volume 9.1 fL (7.4-10.4); Monocytes # (auto) 0.17 K/uL (0.11-0.59); Monocytes % (auto) 2.2 %; Neutrophils # (auto) 5.79 K/uL (1.4-6.5); Neutrophils % (auto) 74.9 %; Platelet Count 190 K/uL (130-400); RDW Coefficient of Variation 14.8 % (11.5-14.5); Red Blood Count 3.91 M/uL (4.2-5.4); White Blood Count 7.74 K/uL (4.8-10.8)
[2021-01-24 07:40] LABS: Calcium 8.6 mg/dl (8.5-10.1); Est GFR (African American) 42.1 ml/min; Est GFR (Non-African American) 36.3 ml/min; Magnesium 1.6 mg/dl (1.8-2.4); Potassium 3.7 mmol/L (3.5-5.1)
[2021-01-24] MEDS: PRAVASTATIN SOD 20 MG TAB PO SCH (08:45)
[2021-01-24] MEDS: ASPIRIN 81 MG ECTAB PO SCH (08:45)
[2021-01-24] MEDS: ENOXAPARIN INJ 40 MG/0.4 ML SYR SQ SCH (08:45)
[2021-01-24] MEDS: HYDROXYCHLOROQUINE SULFATE 200 MG TAB PO SCH (08:46)
[2021-01-24] MEDS: FOLIC ACID 1 MG TAB PO SCH (08:46)
[2021-01-24] MEDS: LEFLUNOMIDE 10 MG TAB PO SCH (08:46)
[2021-01-24] MEDS: predniSONE 5 MG TAB PO SCH ×2 (08:46→08:47)
--- NOTE | 2021-01-24 09:15 | Hospitalist Progress Note ---
Date of Service January 24, 2021 Assessment & Plan (1) Cellulitis of left leg: Plan: With possible sepsis present on admission, possible septic shock given hypotensiongiven her immune compromise with her rheumatoid arthritis and chronic medications, I am not sure if she can really mount a true SIRS response, and certainly she would have every reason to have been septic given that she was also bacteremic on admission. - Blood culture with Pseudomonas stutzeri; sensitive to FLQ and Bactrim. -> Dr Middleton has discussed this in great detail with infectious disease (as up-to-date does not recommend IV antibiotic therapy for Pseudomonas bacteremia given adequate bioavailability with some oral agents) -> Did not use Bactrim given her underlying renal impairment and risk for acute renal failure -> last day of treatment is to be 01/31, however had to switch back to Zosyn due to allergy -> Although Pseudomonas not known to migrate and cause endocarditis, she does have a murmur that she reports she was unaware of. echocardiogram comments that valves look good on Echo this hospital stay (2) Infection, Pseudomonas: Plan: Pseudomonas stutzeri bacteremia present on admission, suspect from cellulitis source, given venous stasis changes . - As above (3) Hypotension: Plan: initial concern for sepsis , typically runs lower blood pressures (4) Rheumatoid arthritis: Plan: - Continue home leflunomide, Plaquenil, and prednisone. 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 - Local wound care, antibiotics for infected ulcer/bacteremia. - Start compression, PT/OT, encouraged movement as best as possible. (6) DVT prophylaxis: Plan: Lovenox (7) Discharge planning issues: Plan: -[facility] very reluctant to [facility] facility - Plan: Skin ulcers clarificationplease see wound nursing documentation for more details. her left medial thigh appears to be a venous stasis partial-thickness wound that is healing, and she has posterior ankle right leg on staged partial- thickness venous leg ulcer left leg all present on admissioncontinue wound care. Admission and Anticipated Discharge Date Admission Date: January 17, 2021 Subjective pt did have a systemic skin reaction to cipro last pm, transitioned to zosyn again, no pulmonary symptoms per pt. her legs are dressed with coban and left thigh is covered also Review of Systems Review of Systems: Mild distress and fatigue, mostly emotional distress due to fact that she does not want to go to [facility] and cannot go home by herself due to lack of support of home nursing no headache, no visual changes no speech or swallowing issues no chest pain, pressure or palpitations no shortness of breath, cough or wheezes no abdominal pain, nausea or vomiting, diarrhea or constipation no dysuria, hematuria or frequency no focal joint pain or swelling no back pain, CVA tenderness or radicular pain persistent progressive changes to LE failing outpt treatment no focal signs of weakness or numbness or altered sensation no complaints of anxiety or depression.. Physical Exam Physical Exam: The patient appeared chronically ill, she is emotionally distressed Vital signs as documented. Head exam is normocephalic atraumatic Neck is without JVD, thyromegaly, or carotid bruits. Lungs are clear to auscultation, no focal loss of breath sounds Cardiac exam, Rhythm is regular.. No murmurs, rubs or gallops. Abdominal exam reveals normal bowel sounds, soft non tender, no masses Extremities are edematous with coban in place Neurologic exam is alert and oriented, no focal loss of strength or sensation Skin is with dressing in place will try to coordinate with wound care to inspet Psychologically is with concerns for anxiety & depression Results & Data Results & Data ([facility]) Vital Signs (Past 12 Hours) Vital Signs Temp Pulse Resp BP BP Pulse Ox 01/24/21 07:55 98.1 F 71 20 107/56 L 93 01/24/21 04:00 97.5 F L 74 18 118/63 95 01/24/21 00:06 97.9 F 70 18 164/77 H 96 PG Care Time/CCT Total # of Minutes Spent Total Time Spent with Patient: Total time spent is greater than 50% in coordination of care (as documented) at patient's floor/unit and/or counseling patient: Coding Level of Care Code 72296 Subseq Hosp Care Lvl 2 Diagnoses Cellulitis of left leg L03.116 Infection, Pseudomonas A49.8 Hypotension I95.9 Rheumatoid arthritis M06.9 Rheumatoid arthritis location: unspecified site Rheumatoid factor presence: unspecified presence Venous stasis ulcer of left lower leg with edema of left lower leg I83.029; I83.892; L97.929; R60.9 DVT prophylaxis Z29.9 Discharge planning issues Z02.9 (1) Rheumatoid arthritis Rheumatoid arthritis location: unspecified site Rheumatoid factor presence: unspecified presence Qualified Code(s): M06.9 - Rheumatoid arthritis, unspecified
[2021-01-24] MEDS: MAGNESIUM SULFATE / D5W 1 GM/100 ML BAG IV SCH ×2 (09:48→11:19)
[2021-01-24] MEDS ORDERED: PIPERACILL/TAZOBAC CONSULT ACTIVE PRN (10:11)
[2021-01-24] MEDS ORDERED: PIPERACILLIN/TAZOBACTAM 3.375 GM in DEXTROSE 5% 100 ML IV ONE (10:30)
[2021-01-24] MEDS: PIPERACILLIN/TAZOBACTAM 3.375 GM in DEXTROSE 5% 100 ML IV SCH (16:49)
[2021-01-25] MEDS: PIPERACILLIN/TAZOBACTAM 3.375 GM in DEXTROSE 5% 100 ML IV SCH ×3 (00:09→16:19)
[2021-01-25] MEDS: HYDROXYCHLOROQUINE SULFATE 200 MG TAB PO SCH (08:38)
[2021-01-25] MEDS: PRAVASTATIN SOD 20 MG TAB PO SCH (08:38)
[2021-01-25] MEDS: FOLIC ACID 1 MG TAB PO SCH (08:38)
[2021-01-25] MEDS: ASPIRIN 81 MG ECTAB PO SCH (08:38)
[2021-01-25] MEDS: LEFLUNOMIDE 10 MG TAB PO SCH (08:38)
[2021-01-25] MEDS: ENOXAPARIN INJ 40 MG/0.4 ML SYR SQ SCH (08:38)
--- NOTE | 2021-01-25 19:16 | Hospitalist Progress Note ---
Date of Service January 25, 2021 Assessment & Plan (1) Cellulitis of left leg: Plan: With possible sepsis present on admission, possible septic shock given hypotensiongiven her immune compromise with her rheumatoid arthritis and chronic medications, I am not sure if she can really mount a true SIRS response, and certainly she would have every reason to have been septic given that she was also bacteremic on admission. - Blood culture with Pseudomonas stutzeri; sensitive to FLQ and Bactrim. -> Dr Middleton has discussed this in great detail with infectious disease (as up-to-date does not recommend IV antibiotic therapy for Pseudomonas bacteremia given adequate bioavailability with some oral agents) -> Did not use Bactrim given her underlying renal impairment and risk for acute renal failure -> last day of treatment is to be 01/31, however had to switch back to Zosyn due to allergy -> Although Pseudomonas not known to migrate and cause endocarditis, she does have a murmur that she reports she was unaware of. echocardiogram comments that valves look good on Echo this hospital stay (2) Infection, Pseudomonas: Plan: Pseudomonas stutzeri bacteremia present on admission, suspect from cellulitis source, given venous stasis changes . - As above will need to complete course to 01/31/21 (3) Hypotension: Plan: initial concern for sepsis , typically runs lower blood pressures (4) Rheumatoid arthritis: Plan: - Continue home leflunomide, Plaquenil, and prednisone. 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 - Local wound care, antibiotics for infected ulcer/bacteremia. - continue compression, PT/OT, encouraged movement as best as possible. (6) DVT prophylaxis: Plan: Lovenox (7) Discharge planning issues: Plan: -[facility] - Plan: Skin ulcers clarificationplease see wound nursing documentation for more details. Admission and Anticipated Discharge Date Admission Date: January 17, 2021 Subjective pt is much more awake and less emotional today, is considering juniper, will continue to look to see if appropriate to go home with in home support, did have good subjective report of performance at PT Review of Systems Review of Systems: Mild distress and fatigue, no headache, no visual changes no speech or swallowing issues no chest pain, pressure or palpitations no shortness of breath, cough or wheezes no abdominal pain, nausea or vomiting, diarrhea or constipation no dysuria, hematuria or frequency no focal joint pain or swelling no back pain, CVA tenderness or radicular pain persistent progressive skin changes to LE failing outpt treatment, these are imp roving here with wound care no focal signs of weakness or numbness or altered sensation no complaints of anxiety or depression.. Physical Exam Physical Exam: The patient appeared chronically ill Vital signs as documented. Head exam is normocephalic atraumatic Neck is without JVD, thyromegaly, or carotid bruits. Lungs are clear to auscultation, no focal loss of breath sounds Cardiac exam, Rhythm is regular.. No murmurs, rubs or gallops. Abdominal exam reveals normal bowel sounds, soft non tender, no masses Extremities are edematous, i visually inspected legs after coban wrap is removed, all seem to be healing, worsened are is full thickness to upper inner left thigh, but according to wound care this is also progressively improved Neurologic exam is alert and oriented, no focal loss of strength or sensation Skin is improving with dressing in place and wound care consult Psychologically is with concerns for anxiety & depression Results & Data Results & Data ([facility]) Vital Signs (Past 12 Hours) Vital Signs Temp Pulse Resp BP Pulse Ox 01/25/21 17:09 98.2 F 62 18 153/79 H 96 PG Care Time/CCT Total # of Minutes Spent Total Time Spent with Patient: Total time spent is greater than 50% in coordination of care (as documented) at patient's floor/unit and/or counseling patient: Coding Level of Care Code 21911 Subseq Hosp Care Lvl 2 Diagnoses Cellulitis of left leg L03.116 Infection, Pseudomonas A49.8 Hypotension I95.9 Rheumatoid arthritis M06.9 Rheumatoid arthritis location: unspecified site Rheumatoid factor presence: unspecified presence Venous stasis ulcer of left lower leg with edema of left lower leg I83.029; I83.892; L97.929; R60.9 DVT prophylaxis Z29.9 Discharge planning issues Z02.9 (1) Rheumatoid arthritis Rheumatoid arthritis location: unspecified site Rheumatoid factor presence: unspecified presence Qualified Code(s): M06.9 - Rheumatoid arthritis, unspecified
[2021-01-26] MEDS: PIPERACILLIN/TAZOBACTAM 3.375 GM in DEXTROSE 5% 100 ML IV SCH ×4 (00:36→23:40)
[2021-01-26 07:10] LABS: Creatinine Clr Calc Pharmacy 35.7 ml/min; Est GFR (African American) 39.1 ml/min; Est GFR (Non-African American) 33.7 ml/min
[2021-01-26] MEDS: predniSONE 5 MG TAB PO SCH ×2 (08:30→08:32)
[2021-01-26] MEDS: LEFLUNOMIDE 10 MG TAB PO SCH (08:30)
[2021-01-26] MEDS: ASPIRIN 81 MG ECTAB PO SCH (08:30)
[2021-01-26] MEDS: HYDROXYCHLOROQUINE SULFATE 200 MG TAB PO SCH (08:30)
[2021-01-26] MEDS: PRAVASTATIN SOD 20 MG TAB PO SCH (08:30)
[2021-01-26] MEDS: FOLIC ACID 1 MG TAB PO SCH (08:30)
[2021-01-26] MEDS: ENOXAPARIN INJ 40 MG/0.4 ML SYR SQ SCH (08:32)
--- NOTE | 2021-01-26 18:56 | Hospitalist Progress Note ---
Date of Service January 26, 2021 Assessment & Plan (1) Cellulitis of left leg: Plan: With possible sepsis present on admission, possible septic shock given hypotensiongiven her immune compromise with her rheumatoid arthritis and chronic medications, I am not sure if she can really mount a true SIRS response, and certainly she would have every reason to have been septic given that she was also bacteremic on admission. - Blood culture with Pseudomonas stutzeri; sensitive to FLQ and Bactrim. -> Dr Middleton has discussed this in great detail with infectious disease (as up-to-date does not recommend IV antibiotic therapy for Pseudomonas bacteremia given adequate bioavailability with some oral agents) -> Did not use Bactrim given her underlying renal impairment and risk for acute renal failure -> last day of treatment is to be 01/31, however had to switch back to Zosyn due to allergy -> Although Pseudomonas not known to migrate and cause endocarditis, she does have a murmur that she reports she was unaware of. echocardiogram comments that valves look good on Echo this hospital stay (2) Infection, Pseudomonas: Plan: Pseudomonas stutzeri bacteremia present on admission, suspect from cellulitis source, given venous stasis changes . - As above will need to complete course to 01/31/21 (3) Hypotension: Plan: initial concern for sepsis , blood pressures have been stable (4) Rheumatoid arthritis: Plan: - Continue home leflunomide, Plaquenil, and prednisone. 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 - Local wound care, antibiotics for infected ulcer/bacteremia. - continue compression, PT/OT, encouraged movement as best as possible. (6) DVT prophylaxis: Plan: Lovenox (7) Discharge planning issues: Plan: -As wounds have progressed very nicely here we need to complete intravenous antibiotics till 31 January due to intolerances of oral antibiotics based upon her allergies. After that if we can get home care company to help manage her wound care between her visits to the wound care center she may be able to do well at home as she is had improvement of her strength and ambulation - Plan: Skin ulcers clarificationcontinue to be cared by wound care nurse while in the hospital Admission and Anticipated Discharge Date Admission Date: January 17, 2021 Subjective Patient is much more peaceful today she is sleepy in the room and I will contact she has no complaints or problems. We did currently understanding that if you get home health the patient does not return to home along with home health can help take care of her lower extremity wounds. I personally inspected the wounds on 01/25 and they are much improved. Perhaps the only discomfort her larger wound is her inner thigh her lower extremities are much better with a Coban wrapping. Review of Systems Review of Systems: Mild distress and fatigue, no headache, no visual changes no speech or swallowing issues no chest pain, pressure or palpitations no shortness of breath, cough or wheezes no abdominal pain, nausea or vomiting, diarrhea or constipation no dysuria, hematuria or frequency no focal joint pain or swelling no back pain, CVA tenderness or radicular pain Lower extremity wounds are improving here with wound care no focal signs of weakness or numbness or altered sensation no complaints of anxiety or depression.. Physical Exam Physical Exam: The patient appeared chronically ill Vital signs as documented. Head exam is normocephalic atraumatic Neck is without JVD, thyromegaly, or carotid bruits. Lungs are clear to auscultation, no focal loss of breath sounds Cardiac exam, Rhythm is regular.. No murmurs, rubs or gallops. Abdominal exam reveals normal bowel sounds, soft non tender, no masses Extremities are edematous, i visually inspected legs after coban wrap is removed, all seem to be healing, worsened are is full thickness to upper inner left thigh, but according to wound care this is also progressively improved Neurologic exam is alert and oriented, no focal loss of strength or sensation Skin is improving with dressing in place and wound care consult Psychologically is with concerns for anxiety & depression Results & Data Results & Data ([facility]) Vital Signs (Past 12 Hours) Vital Signs Temp Pulse Resp BP Pulse Ox 01/26/21 16:00 98.2 F 83 18 134/84 96 01/26/21 07:35 98.1 F 63 20 147/71 H 96 PG Care Time/CCT Total # of Minutes Spent Total Time Spent with Patient: Total time spent is greater than 50% in coordination of care (as documented) at patient's floor/unit and/or counseling patient: Coding Level of Care Code 49907 Subseq Hosp Care Lvl 1 Diagnoses Cellulitis of left leg L03.116 Infection, Pseudomonas A49.8 Hypotension I95.9 Rheumatoid arthritis M06.9 Rheumatoid arthritis location: unspecified site Rheumatoid factor presence: unspecified presence Venous stasis ulcer of left lower leg with edema of left lower leg I83.029; I83.892; L97.929; R60.9 DVT prophylaxis Z29.9 Discharge planning issues Z02.9 (1) Rheumatoid arthritis Rheumatoid arthritis location: unspecified site Rheumatoid factor presence: unspecified presence Qualified Code(s): M06.9 - Rheumatoid arthritis, unspecified
[2021-01-27 09:17] LABS: Creatinine Clr Calc Pharmacy 37.7 ml/min; Est GFR (African American) 41.8 ml/min
[2021-01-27] MEDS: PRAVASTATIN SOD 20 MG TAB PO SCH (09:35)
[2021-01-27] MEDS: HYDROXYCHLOROQUINE SULFATE 200 MG TAB PO SCH (09:35)
[2021-01-27] MEDS: ENOXAPARIN INJ 40 MG/0.4 ML SYR SQ SCH (09:36)
[2021-01-27] MEDS: LEFLUNOMIDE 10 MG TAB PO SCH (09:36)
[2021-01-27] MEDS: PIPERACILLIN/TAZOBACTAM 3.375 GM in DEXTROSE 5% 100 ML IV SCH ×3 (09:36→23:36)
[2021-01-27] MEDS: FOLIC ACID 1 MG TAB PO SCH (09:36)
[2021-01-27] MEDS: ASPIRIN 81 MG ECTAB PO SCH (09:36)
[2021-01-27] MEDS: predniSONE 5 MG TAB PO SCH (09:36)
--- NOTE | 2021-01-27 18:18 | Hospitalist Progress Note ---
Date of Service January 27, 2021 Assessment & Plan (1) Cellulitis of left leg: Plan: With possible sepsis present on admission, possible septic shock given hypotensiongiven her immune compromise with her rheumatoid arthritis and chronic medications, I am not sure if she can really mount a true SIRS response, and certainly she would have every reason to have been septic given that she was also bacteremic on admission. - Blood culture with Pseudomonas stutzeri; sensitive to FLQ and Bactrim. -> Dr Middleton has discussed this in great detail with infectious disease (as up-to-date does not recommend IV antibiotic therapy for Pseudomonas bacteremia given adequate bioavailability with some oral agents) -> Did not use Bactrim given her underlying renal impairment and risk for acute renal failure attempts to use oral cipro resulted with systemic rash and was abandoned -> last day of treatment of iv zosyn is to be 01/31/21 -> Although Pseudomonas not known to migrate and cause endocarditis, she does have a murmur that she reports she was unaware of. echocardiogram comments that valves look good on Echo this hospital stay (2) Infection, Pseudomonas: Plan: Pseudomonas stutzeri bacteremia present on admission, suspect from cellulitis source, given venous stasis changes . - As above will need to complete course to 01/31/21 (3) Hypotension: Plan: initial concern for sepsis , blood pressures have been stable (4) Rheumatoid arthritis: Plan: - Continue home leflunomide, Plaquenil, and prednisone. 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 - Local wound care, antibiotics for infected ulcer/bacteremia. - continue compression, PT/OT, encouraged movement as best as possible. Pt is very able bodied and ambulates well, if can coordinate out pt nursing and wound care visits may do ok at home (6) DVT prophylaxis: Plan: Lovenox (7) Discharge planning issues: Plan: -As wounds have progressed very nicely here we need to complete intravenous antibiotics till 31 January due to intolerances of oral antibiotics based upon her allergies. After that if we can get home care company to help manage her wound care between her visits to the wound care center she may be able to do well at home as she is had improvement of her strength and ambulation - Plan: Skin ulcers clarificationcontinue to be cared by wound care nurse while in the hospital Admission and Anticipated Discharge Date Admission Date: January 17, 2021 Subjective Patient is without new complaints or problems. We did currently come to an understanding that if she gets home health she can return to homeas along with home health can help take care of her lower extremity wounds. I personally inspected the wounds on 01/25 and they are much improved. Perhaps the only area of concern is her larger wound is her inner thigh. Her lower extremities are much better with a Coban wrapping. Review of Systems Review of Systems: Mild distress and fatigue, no headache, no visual changes no speech or swallowing issues no chest pain, pressure or palpitations no shortness of breath, cough or wheezes no abdominal pain, nausea or vomiting, diarrhea or constipation no dysuria, hematuria or frequency no focal joint pain or swelling no back pain, CVA tenderness or radicular pain Lower extremity wounds are improving here with wound care no focal signs of weakness or numbness or altered sensation no complaints of anxiety or depression.. Physical Exam Physical Exam: The patient appeared chronically ill Vital signs as documented. Head exam is normocephalic atraumatic Neck is without JVD, thyromegaly, or carotid bruits. Lungs are clear to auscultation, no focal loss of breath sounds Cardiac exam, Rhythm is regular.. No murmurs, rubs or gallops. Abdominal exam reveals normal bowel sounds, soft non tender, no masses Extremities are edematous, i visually inspected legs after coban wrap is removed, all seem to be healing, worsened are is full thickness to upper inner left thigh, but according to wound care this is also progressively improved Neurologic exam is alert and oriented, no focal loss of strength or sensation Skin is improving with dressing in place and wound care consult Psychologically is with concerns for anxiety & depression Results & Data Results & Data ([facility]) Vital Signs (Past 12 Hours) Vital Signs Temp Pulse Resp BP Pulse Ox 01/27/21 15:46 98.2 F 62 16 116/64 95 PG Care Time/CCT Total # of Minutes Spent Total Time Spent with Patient: Total time spent is greater than 50% in coordination of care (as documented) at patient's floor/unit and/or counseling patient: Coding Level of Care Code 66901 Subseq Hosp Care Lvl 2 Diagnoses Cellulitis of left leg L03.116 Infection, Pseudomonas A49.8 Hypotension I95.9 Rheumatoid arthritis M06.9 Rheumatoid arthritis location: unspecified site Rheumatoid factor presence: unspecified presence Venous stasis ulcer of left lower leg with edema of left lower leg I83.029; I83.892; L97.929; R60.9 DVT prophylaxis Z29.9 Discharge planning issues Z02.9 (1) Rheumatoid arthritis Rheumatoid arthritis location: unspecified site Rheumatoid factor presence: unspecified presence Qualified Code(s): M06.9 - Rheumatoid arthritis, unspecified
[2021-01-28] MEDS: PIPERACILLIN/TAZOBACTAM 3.375 GM in DEXTROSE 5% 100 ML IV SCH ×2 (08:15→18:22)
[2021-01-28] MEDS: ASPIRIN 81 MG ECTAB PO SCH (08:35)
[2021-01-28] MEDS: FOLIC ACID 1 MG TAB PO SCH (08:38)
[2021-01-28] MEDS: HYDROXYCHLOROQUINE SULFATE 200 MG TAB PO SCH (08:39)
[2021-01-28] MEDS: LEFLUNOMIDE 10 MG TAB PO SCH (08:41)
[2021-01-28] MEDS: predniSONE 5 MG TAB PO SCH (08:43)
[2021-01-28] MEDS: ENOXAPARIN INJ 40 MG/0.4 ML SYR SQ SCH (08:44)
[2021-01-28] MEDS: PRAVASTATIN SOD 20 MG TAB PO SCH (09:46)
[2021-01-28 09:47] LABS: Creatinine Clr Calc Pharmacy 37.7 ml/min; Est GFR (African American) 41.8 ml/min
--- NOTE | 2021-01-28 23:56 | Hospitalist Progress Note ---
Date of Service January 28, 2021 Assessment & Plan (1) Cellulitis of left leg: Plan: With possible sepsis present on admission, No septic shock as vasopressors were not given. Possible Blood culture with Pseudomonas stutzeri; sensitive to FLQ and Bactrim. Allergic reaction to ciprofloxacin therefore continuin with Zosyn per prior providers discussion with ID (see Jacy Patel note) Continue IV Zosyn. Last day of treatment of iv zosyn is to be 01/31/21 (2) Infection, Pseudomonas: Plan: Pseudomonas stutzeri bacteremia present on admission, suspect from cellulitis source, given venous stasis changes . - As above will need to complete course to 01/31/21 (3) Hypotension: Plan: initial concern for sepsis, no septic shock, blood pressures have been stable (4) Rheumatoid arthritis: Plan: - Continue home leflunomide, Plaquenil, and prednisone. 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 - Local wound care, antibiotics for infected ulcer/bacteremia. - continue compression, PT/OT, encouraged movement as best as possible. Pt is very able bodied and ambulates well, if can coordinate out pt nursing and wound care visits may do ok at home (6) DVT prophylaxis: Plan: Lovenox (7) Discharge planning issues: Plan: -As wounds have progressed very nicely here we need to complete intravenous antibiotics till 31 January due to intolerances of oral antibiotics based upon her allergies. After that if we can get home care company to help manage her wound care between her visits to the wound care center she may be able to do well at home as she is had improvement of her strength and ambulation Plan: Skin ulcers clarificationcontinue to be cared by wound care nurse while in the hospital Admission and Anticipated Discharge Date Admission Date: January 17, 2021 Subjective Legs currently wrapped. She tells me wound care are planning on dressing change today. She is much more alert than when I originally admitted her. Wound on inn er thigh appears to be much improved. Currently staying as inpatient to finish Zosyn (due to finish on 01/31) per prior providers discussions with infectious disease. Allergic reaction to ciprofloxacin given. Physical Exam Constitutional: well developed and + obese; + not well nourished and no acute distress Respiratory: normal respiratory effort, lungs clear to auscultation Cardiovascular: Rate/Rhythm: regular rate and regular rhythm Heart Sounds: no murmur Extremities: + pedal edema (1+ to mid thighs) Gastrointestinal (Abdomen): normal bowel sounds, soft, nontender, no hepatosplenomegaly Skin: Lower extremities wrapped to just below knees without any erythema extending beyond bandages. Inner thigh wound appears much improved. Psychiatric: A+Ox3, euthymic affect Results & Data Results & Data ([facility]) Vital Signs (Past 12 Hours) Vital Signs Temp Pulse Resp BP Pulse Ox 01/28/21 22:21 36.5 C 63 18 147/74 H 96 01/28/21 15:40 36.5 C 67 16 146/74 H 95 PG Care Time/CCT Total # of Minutes Spent Total Time Spent with Patient: Total time spent is greater than 50% in coordination of care (as documented) at patient's floor/unit and/or counseling patient: Coding Level of Care Code 45942 Subseq Hosp Care Lvl 2 Diagnoses Cellulitis of left leg L03.116 Infection, Pseudomonas A49.8 Hypotension I95.9 Rheumatoid arthritis M06.9 Rheumatoid arthritis location: unspecified site Rheumatoid factor presence: unspecified presence Venous stasis ulcer of left lower leg with edema of left lower leg I83.029; I83.892; L97.929; R60.9 DVT prophylaxis Z29.9 Discharge planning issues Z02.9 (1) Rheumatoid arthritis Rheumatoid arthritis location: unspecified site Rheumatoid factor presence: unspecified presence Qualified Code(s): M06.9 - Rheumatoid arthritis, unspecified
[2021-01-29] MEDS: PIPERACILLIN/TAZOBACTAM 3.375 GM in DEXTROSE 5% 100 ML IV SCH ×3 (00:17→17:15)
[2021-01-29 06:43] LABS: Basophils # (auto) 0.04 K/uL (0-0.2); Basophils % (auto) 0.7 %; Eosinophils # (auto) 0.49 K/uL (0-0.5); Hemoglobin 9.1 g/dL (12.0-16.0); Immature Granulocytes # (auto) 0.02 K/uL (0.00-0.02); Immature Granulocytes % (auto) 0.4 %; Lymphocytes # (auto) 1.73 K/uL (1.2-3.4); Lymphocytes % (auto) 31.6 %; Mean Corpuscular Hemoglobin 26.3 pg (25-34); Mean Corpuscular Hgb Conc 30.3 g/dL (32-36); Mean Corpuscular Volume 86.7 fL (80-100); Mean Platelet Volume 9.3 fL (7.4-10.4); Monocytes # (auto) 0.45 K/uL (0.11-0.59); Monocytes % (auto) 8.2 %; Neutrophils # (auto) 2.74 K/uL (1.4-6.5); Neutrophils % (auto) 50.1 %; Platelet Count 182 K/uL (130-400); RDW Coefficient of Variation 15.3 % (11.5-14.5); RDW Standard Deviation 48.6 fL (36.4-46.3); Red Blood Count 3.46 M/uL (4.2-5.4); White Blood Count 5.47 K/uL (4.8-10.8)
[2021-01-29 07:02] LABS: BUN Creatinine Ratio 13.4 (10-20); Calcium 8.8 mg/dl (8.5-10.1); Creatinine Clr Calc Pharmacy 36.2 ml/min; Est GFR (African American) 39.7 ml/min; Est GFR (Non-African American) 34.3 ml/min; Potassium 3.7 mmol/L (3.5-5.1)
[2021-01-29] MEDS: HYDROXYCHLOROQUINE SULFATE 200 MG TAB PO SCH (09:57)
[2021-01-29] MEDS: ENOXAPARIN INJ 40 MG/0.4 ML SYR SQ SCH (09:57)
[2021-01-29] MEDS: PRAVASTATIN SOD 20 MG TAB PO SCH (09:58)
[2021-01-29] MEDS: ASPIRIN 81 MG ECTAB PO SCH (09:58)
[2021-01-29] MEDS: FOLIC ACID 1 MG TAB PO SCH (09:59)
[2021-01-29] MEDS: predniSONE 5 MG TAB PO SCH ×2 (09:59→10:00)
[2021-01-29] MEDS: LEFLUNOMIDE 10 MG TAB PO SCH (09:59)
--- NOTE | 2021-01-29 16:39 | Hospitalist Progress Note ---
Date of Service January 29, 2021 Assessment & Plan (1) Cellulitis of left leg: Plan: With possible sepsis present on admission, No septic shock as vasopressors were not given. Possible Blood culture with Pseudomonas stutzeri; sensitive to FLQ and Bactrim. Allergic reaction to ciprofloxacin therefore continuin with Zosyn per prior providers discussion with ID (see Jacy Patel note) Continue IV Zosyn. Last day of treatment of iv zosyn is to be 01/31/21 Wound care to ressess today or tomorrow. (2) Infection, Pseudomonas: Plan: Pseudomonas stutzeri bacteremia present on admission, suspect from cellulitis source, given venous stasis changes . - As above will need to complete course to 01/31/21 (3) Hypotension: Plan: Now resolved initial concern for sepsis, no septic shock, blood pressures have been stable (4) Rheumatoid arthritis: Plan: - Continue home leflunomide, Plaquenil, and prednisone. 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 - Local wound care, antibiotics for infected ulcer/bacteremia. - continue compression, PT/OT, encouraged movement as best as possible. Pt is very able bodied and ambulates well, if can coordinate out pt nursing and wound care visits may do ok at home (6) DVT prophylaxis: Plan: Lovenox (7) Discharge planning issues: Plan: -As wounds have progressed very nicely here we need to complete intravenous antibiotics till 31 January due to intolerances of oral antibiotics based upon her allergies. After that if we can get home care company to help manage her wound care between her visits to the wound care center she may be able to do well at home as she is had improvement of her strength and ambulation Plan: Skin ulcers clarificationcontinue to be cared by wound care nurse while in the hospital Admission and Anticipated Discharge Date Admission Date: January 17, 2021 Subjective No change from yesterday. Anxious about going home. Discussed with wound care and reportedly may only need once weekly dressing changes. Antibiotics will be finished on 01/31. Review of Systems Review of Systems: All systems reviewed & are unremarkable except as noted in HPI & below Physical Exam Constitutional: well developed and + obese; + not well nourished and no acute distress Respiratory: normal respiratory effort, lungs clear to auscultation Cardiovascular: Rate/Rhythm: regular rate and regular rhythm Heart Sounds: no murmur Extremities: + pedal edema (1+ to mid thighs) Gastrointestinal (Abdomen): normal bowel sounds, soft, nontender, no hepatosplenomegaly Psychiatric: A+Ox3, euthymic affect Results & Data Results & Data ([facility]) Vital Signs (Past 12 Hours) Vital Signs Temp Pulse Resp BP Pulse Ox 01/29/21 14:59 36.7 C 78 16 120/77 96 01/29/21 07:40 36.5 C 58 L 18 173/73 H 97 PG Care Time/CCT Total # of Minutes Spent Total Time Spent with Patient: Total time spent is greater than 50% in coordination of care (as documented) at patient's floor/unit and/or counseling patient: Coding Level of Care Code 94647 Subseq Hosp Care Lvl 2 Diagnoses Cellulitis of left leg L03.116 Infection, Pseudomonas A49.8 Hypotension I95.9 Rheumatoid arthritis M06.9 Rheumatoid arthritis location: unspecified site Rheumatoid factor presence: unspecified presence Venous stasis ulcer of left lower leg with edema of left lower leg I83.029; I83.892; L97.929; R60.9 DVT prophylaxis Z29.9 Discharge planning issues Z02.9 (1) Rheumatoid arthritis Rheumatoid arthritis location: unspecified site Rheumatoid factor presence: unspecified presence Qualified Code(s): M06.9 - Rheumatoid arthritis, unspecified
[2021-01-30] MEDS: PIPERACILLIN/TAZOBACTAM 3.375 GM in DEXTROSE 5% 100 ML IV SCH ×3 (00:03→15:55)
[2021-01-30] MEDS: ENOXAPARIN INJ 40 MG/0.4 ML SYR SQ SCH (07:33)
[2021-01-30] MEDS: PRAVASTATIN SOD 20 MG TAB PO SCH (07:35)
[2021-01-30] MEDS: ASPIRIN 81 MG ECTAB PO SCH (07:36)
[2021-01-30] MEDS: LEFLUNOMIDE 10 MG TAB PO SCH (07:37)
[2021-01-30] MEDS: predniSONE 5 MG TAB PO SCH (07:37)
[2021-01-30] MEDS: HYDROXYCHLOROQUINE SULFATE 200 MG TAB PO SCH (07:38)
[2021-01-30] MEDS: FOLIC ACID 1 MG TAB PO SCH (07:38)
--- NOTE | 2021-01-30 15:36 | Hospitalist Progress Note ---
Date of Service January 30, 2021 Assessment & Plan (1) Cellulitis of left leg: Plan: With possible sepsis present on admission, No septic shock as vasopressors were not given. Possible Blood culture with Pseudomonas stutzeri; sensitive to FLQ and Bactrim. Allergic reaction to ciprofloxacin therefore continue with Zosyn per prior providers discussion with ID (see Jacy Patel note) Continue IV Zosyn. Last day of treatment of iv zosyn is to be 01/31/21. No antibiotics on discharge Wound care notes in place for home health (2) Infection, Pseudomonas: Plan: Pseudomonas stutzeri bacteremia present on admission, suspect from cellulitis source, given venous stasis changes . - As above will need to complete course to 01/31/21 (3) Hypotension: Plan: Now resolved initial concern for sepsis, no septic shock, blood pressures have been stable (4) Rheumatoid arthritis: Plan: - Continue home leflunomide, Plaquenil, and prednisone. 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 - Local wound care, antibiotics for infected ulcer/bacteremia. - continue compression, PT/OT, encouraged movement as best as possible (6) DVT prophylaxis: Plan: Lovenox (7) Discharge planning issues: Plan: -planning on discharge home with home health tomorrow Plan: Skin ulcers clarificationcontinue to be cared by wound care nurse while in the hospital Admission and Anticipated Discharge Date Admission Date: January 17, 2021 Subjective No change from yesterday. Anxious about going home. Discussed home arrangements with case managers and the patient at bedside. Antibiotics will be finished on 01/31. Review of Systems Review of Systems: All systems reviewed & are unremarkable except as noted in HPI & below Physical Exam Physical Exam: Constitutional: well developed and + obese; + not well nourished and no acute distress Respiratory: normal respiratory effort, lungs clear to auscultation Cardiovascular: Rate/Rhythm: regular rate and regular rhythm Heart Sounds: no murmur Extremities: + pedal edema (1+ to mid thighs) Gastrointestinal (Abdomen): normal bowel sounds, soft, nontender, no hepatosplenomegaly Psychiatric: A+Ox3, euthymic affect Results & Data Results & Data ([facility]) Vital Signs (Past 12 Hours) Vital Signs Temp Pulse Resp BP Pulse Ox 01/30/21 15:28 36.8 C 63 16 166/76 H 93 01/30/21 07:04 36.5 C 56 L 16 153/74 H 95 PG Care Time/CCT Total # of Minutes Spent Total Time Spent with Patient: Total time spent is greater than 50% in coordination of care (as documented) at patient's floor/unit and/or counseling patient: Coding Level of Care Code 08186 Subseq Hosp Care Lvl 1 Diagnoses Cellulitis of left leg L03.116 Infection, Pseudomonas A49.8 Hypotension I95.9 Rheumatoid arthritis M06.9 Rheumatoid arthritis location: unspecified site Rheumatoid factor presence: unspecified presence Venous stasis ulcer of left lower leg with edema of left lower leg I83.029; I83.892; L97.929; R60.9 DVT prophylaxis Z29.9 Discharge planning issues Z02.9 (1) Rheumatoid arthritis Rheumatoid arthritis location: unspecified site Rheumatoid factor presence: unspecified presence Qualified Code(s): M06.9 - Rheumatoid arthritis, unspecified
[2021-01-31] MEDS: PIPERACILLIN/TAZOBACTAM 3.375 GM in DEXTROSE 5% 100 ML IV SCH ×2 (00:41→07:30)
[2021-01-31] MEDS: LEFLUNOMIDE 10 MG TAB PO SCH (08:06)
[2021-01-31] MEDS: HYDROXYCHLOROQUINE SULFATE 200 MG TAB PO SCH (08:06)
[2021-01-31] MEDS: FOLIC ACID 1 MG TAB PO SCH (08:06)
[2021-01-31] MEDS: ASPIRIN 81 MG ECTAB PO SCH (08:06)
[2021-01-31] MEDS: PRAVASTATIN SOD 20 MG TAB PO SCH (08:06)
[2021-01-31] MEDS: ENOXAPARIN INJ 40 MG/0.4 ML SYR SQ SCH (08:07)
--- NOTE | 2021-01-31 14:52 | Discharge Summary ---
Date of Service January 31, 2021 Admission HPI Per Admitting Provider Dona Villalpando is a 75 year old female who presents to the ER on the advice of wound care clinic due to cellulitis and possible need for IV antibiotics. She has been following up since her prior discharge in November for bilateral venous stasis ulcers in the setting of chronic lymphedema and chronic venous insufficiency as well as a non-healing surgical wound on left thigh. She reportedly also has fungal dermatitis for which she has been using nystatin powder. Per wound care clinic note from today surgical left medial thigh wound is improving. Left foot wound is now cellulitic and main reason she was sent to the ER. Principal Diagnosis Cellulitis Bacteremia Discharge Exam Constitutional well developed and + obese; + not well nourished and no acute distress Respiratory normal respiratory effort, lungs clear to auscultation Cardiovascular Rate/Rhythm: regular rate and regular rhythm Heart Sounds: no murmur Extremities: + pedal edema (1+ to mid thighs) Gastrointestinal (Abdomen) normal bowel sounds, soft, nontender, no hepatosplenomegaly Skin Improving left medial thigh erythema. Psychiatric A+Ox3, euthymic affect Discharge Data Allergies Allergy/AdvReac Type Severity Reaction Status Date / Time amoxicillin [From Augmentin] Allergy Intermediate Rash Verified 01/17/21 10:37 cefadroxil Allergy Intermediate Rash Verified 01/17/21 10:37 clavulanic acid Allergy Intermediate Rash Verified 01/17/21 10:37 [From Augmentin] Sulfa (Sulfonamide Allergy Intermediate RASH Verified 01/17/21 10:37 Antibiotics) cefepime Allergy Unknown Unknown Verified 01/17/21 10:37 cephalexin [From Keflex] Allergy Unknown Unknown Verified 01/17/21 10:37 levofloxacin [From Levaquin] AdvReac Intermediate rash Verified 01/17/21 10:37 oxycodone AdvReac Mild NAUSEA Verified 01/17/21 10:37 Consultations 01/17/21 14:39 ED Decision to Admit Stat Hospital Course (1) Cellulitis of left leg: (2) Infection, Pseudomonas: (3) Hypotension: (4) Rheumatoid arthritis: (5) Venous stasis ulcer of left lower leg with edema of left lower leg: (6) DVT prophylaxis: (7) Discharge planning issues: Dona Villalpando is a 75 year old female admitted to [facility] from January 17 - January 31, 2021 due to cellulitis. Blood cultures were subsequently positive for pseudomonas stuzeri. This was treated with intravenous Zosyn during her inpatient admission. Due to an adverse effect from alternative oral antibiotics (ciprofloxacin caused a rash), she completed your full antibiotic course while in hospital. She should follow up with wound care by calling the number on discharge paperwork provided. Wound care instruction provided separately. Home health have been set up to aid in wound care at home. Total Time Total Time Spent Total Time Spent (In Minutes): 40 Discharge Plan Discharge Items Patient Disposition: Home - Home Health Services Reason For Visit: CELLULITIS Discharge Diagnosis: Cellulitis Bacteremia Activity: Resume your previous activity Non-emergency contact: Primary Care Provider Call non-emergency contact if: you have any medication questions and your symptoms worsen Follow-up/Referrals: Svetlana Rosales CRNP [Primary Care Provider] - 02/06/21 2:10 pm Diet: Regular Addtl Attending Provider Instructions: You were admitted to [facility] from January 17 - January 31, 2021 due to cellulitis. Blood cultures were subsequently positive for pseudomonas stuzeri. This was treated with intravenous Zosyn during your admission. Due to an adverse effect from alternative oral antibiotics, you completed your full antibiotic course while in hospital. Please call wound care on number provided on wound instructions. Referral has been sent to [facility] to assist with dressing changes. Please see additional wound care instructions regarding dressing changes. Pending Studies at Discharge: No Stand-Alone Forms: My [facility], Smoking Cessation Medications and DC Order Prescriptions: Continued pravastatin 20 mg tablet 20 mg PO DAILY RF: 0 leflunomide 10 mg tablet 10 mg PO DAILY RF: 0 hydroxychloroquine 200 mg tablet 400 mg PO DAILY RF: 0 aspirin 81 mg tablet,delayed release (DR/EC) 81 mg PO DAILY Qty: 30 RF: 0 prednisone 5 mg tablet 5 - 7.5 mg PO DAILY RF: 0 folic acid 1 mg Tablet 1 mg PO QAM 30 Days Qty: 30 RF: 1 Discontinued desoximetasone 0.25 % ointment 1 applic topical DAILY PRN (Reason: skin irritation) Qty: 100 RF: 2 gentamicin 0.1 % ointment 1 applic topical DAILY 14 Days Qty: 30 RF: 1 Discharge Orders: Discharge Order (Routine); Ordered 01/31/21 Ordered By: Osvaldo Middleton Admission Data Admit Date/Time: 01/17/21 15:57 Attending Provider: Osvaldo Middleton Admit Provider: Osvaldo Middleton Primary Care Provider: Svetlana Rosales Other Providers: Farhad Hernandez ; Osvlado Middleton ; [facility] ; [facility] ; [facility] Other Interventions: Discharge Summary Assessment (RN) Last Done: 01/31/21 14:52 Coding Level of Care Code D/C DAY MANAGEMENT >30 MINS Diagnoses Cellulitis of left leg L03.116 Infection, Pseudomonas A49.8 Hypotension I95.9 Rheumatoid arthritis M06.9 Rheumatoid arthritis location: unspecified site Rheumatoid factor presence: unspecified presence Venous stasis ulcer of left lower leg with edema of left lower leg I83.029; I83.892; L97.929; R60.9 DVT prophylaxis Z29.9 Discharge planning issues Z02.9 Home Health Attestation I certify that this patient is under my care and that I, or a physicians engineer assistant working with me, had a face to-face encounter that meets the home health [id number] encounter requirements with this patient. The encounter with the patient was in whole, or in part, for the following medical condition, which is the primary reason for home health care (list medical condition): Nursing, PT; cellulitis, dressing changes I certify that, based on my findings, the following services are medically necessary home health services: My clinical findings support the need for the above services because: PT Assessment for Endurance / Balance / Strength PT Eval for Safety and Mobility Skilled Nsg Assessment Skilled Nsg Assessment Surgical Incision / Wound S/S to Report to Provider Further, I certify that my clinical findings support that this patient is homebound (i.e. absences from home require considerable and taxing effort and are for medical reasons or latter day services or infrequently or of short duration when for other reasons) because: Supportive Aid - Walker Certification for Home Health Services: Based on the above findings, I certify that this patient is confined to the home and needs intermittent penitentiary care, physical therapy and/or speech therapy or continues to need occupational therapy. The patient is under my care, and I have initiated the establishment of the plan of care. This patient will be followed by a physician who will periodically review the plan of care.
--- NOTE | 2021-02-08 14:38 | Coding Query ---
CODING QUERY To promote full compliance with coding requirements relating to patient care, provider participation is requested in all cases of mechanical pencils assembler uncertainty. Please assist us with the question(s) below: Coding Question(s): There is documentation in the Progress Notes, as on Progress Notes 01/28/21 - 01/30/21 of, "Cellulitis of left leg: Plan: With possible sepsis present on admission, No septic shock as vasopressors were not given. Possible Blood culture with Pseudomonas stutzeri", and, "Pseudomonas stutzeri bacteremia present on admission, suspect from cellulitis source, given venous stasis changes . - As above will need to complete course to 01/31/21", however the Discharge Summary does not document Sepsis and documents bacteremia. It is not clear if Sepsis was ruled-out or was still possible. Please specify below, in your clinical opinion. (X ) Sepsis was still possible ( ) Bacteremia only, Sepsis was ruled-out ( ) Other: Please Specify Physician's Response(s): Thank you Meaghan Pelaez Principal Diagnosis: "that condition established after study, to be chiefly responsible for occasioning the admission of the patient to the hospital for care." Co-Existing Principal Diagnosis: "when two or more diagnoses equally meet the criteria for principal diagnosis as determined by the circumstances of admission, diagnostic work up, and/or therapy provided, and the Alphabetic Index, Tabular List, or another coding guideline does not provide sequencing direction, any one of the diagnoses may be sequenced first." "When the physician has documented what appears to be a current diagnosis in the body of the record, but has not included the diagnosis in the final diagnostic statement, the physician should be asked whether the diagnosis should be added." (Source Coding Clinic 2 QTR90. p3-4) ADÁN
== END 2021-01-31 18:16 | disposition home health service (06) | DRG 872 ==
LOC: ED 11:45 → SUATTDRO 15:57 → 2N 15:57 → 2W 01-19 05:09 → 3N 01-22 16:10

== ENCOUNTER 2022-04-18 10:45 | Inpatient (IN) ==
[2022-04-18] MEDS ORDERED: SODIUM CHLORIDE 0.9% 250 ML IV ONE (11:53)
[2022-04-18] MEDS ORDERED: SODIUM CHLORIDE 0.9% 1000ML 1,000 ML IV SCH (12:00)
--- NOTE | 2022-04-18 12:22 | XRay Report ---
SINGLE VIEW CHEST CLINICAL HISTORY: Sepsis. FINDINGS: An AP, portable, upright chest radiograph is compared to study dated 12/03/2020. The examina tion is degraded by portable technique and patient rotation. The heart is enlarged noting atheroscle rotic calcification of the thoracic aorta. There is pulmonary vascular congestion. Asymmetric bilater al airspace opacities identify, greatest in the left midlung. No large pleural effusion or pneumothor ax is seen. The skeletal structures are osteopenic. The bony thorax is grossly intact. Arthritic meadows ge is seen in the shoulders. IMPRESSION: 1. Cardiomegaly with pulmonary vascular congestion. 2. There are asymmetric bilateral airspace opacities. This could represent pulmonary edema and/or pne umonia. Clinical correlation will be required and radiographic follow-up to resolution is recommended . ACT 112: Negative or not required by law. Electronically signed by: Jf Bronson M.D. 04/18/2022 12:21 PM
[2022-04-18] MEDS ORDERED: cefTRIAXone SODIUM 2,000 MG/70 ML BAG IV ONE (13:00)
--- NOTE | 2022-04-18 13:05 | Electrocardiogram Report ---
Test Reason : Blood Pressure : / mmHG Vent. Rate : 093 BPM Atrial Rate : 093 BPM P-R Int : 132 ms QRS Dur : 090 ms QT Int : 372 ms P-R-T Axes : 045 -33 036 degrees QTc Int : 462 ms Poor data quality, interpretation may be adversely affected Normal sinus rhythm Left axis deviation Moderate voltage criteria for LVH, may be normal variant Abnormal ECG When compared with ECG of 05-DEC-2020 05:50, Vent. rate has increased BY 33 BPM Confirmed by Berhane Gutierrez ([id number]) on 04/18/2022 1:05:30 PM Referred By: REFERRED SELF Confirmed By:Steven Gutierrez
--- NOTE | 2022-04-18 13:31 | CT Scan Report ---
HEAD CT NONCONTRAST CT DOSE: 3070.74 mGy.cm HISTORY: falls, weakness TECHNIQUE: Multiaxial CT images of the head were performed without the use of intravenous contrast. A utomated exposure control was utilized for this study. A dose lowering technique was utilized adheri ng to the principles of ALARA. Comparison: None. Findings: Motion artifact. Mild mucosal thickening within the paranasal sinuses. Trace effusion withi n the left mastoid air cells. The right mastoid air cells are clear. The calvarium and skull base are intact. There is no mass, hematoma, midline shift, acute infarct. White matter hypodensity is nonspe cific but suggestive of microvascular ischemic change. The ventricles and sulci demonstrate mild age- related involutional changes. Impression: Motion artifact. No definite acute intracranial abnormality. ACT 112: Negative or not required by law. Electronically signed by: Grabiel Varela M.D. 04/18/2022 1:30 PM
[2022-04-18 13:49] LABS: Albumin Level 3.3 gm/dl (3.4-5.0); BUN Creatinine Ratio 17.5 (10-20); Bilirubin Direct 0.3 mg/dl (0-0.2); Bilirubin,Total 1.1 mg/dl (0.2-1.0); Calcium 9.3 mg/dl (8.5-10.1); Est GFR (African American) 54.1 ml/min; Est GFR (Non-African American) 46.7 ml/min; Magnesium 1.7 mg/dl (1.7-2.4); Potassium 3.5 mmol/L (3.5-5.1); Total Protein 5.7 gm/dl (6.0-8.3)
[2022-04-18 13:51] LABS: Troponin I High Sensitivity 291.7 pg/ml (0-14)
[2022-04-18] MEDS ORDERED: ASPIRIN CHEW 324 MG PO STA (14:33)
[2022-04-18 14:42] LABS: Hematocrit (blood only) 33.7 % (34.1-44.9); Hemoglobin 10.8 g/dl (12.0-16.0); Mean Corpuscular Hemoglobin 27.9 pg (25.0-34.0); Mean Corpuscular Volume 87.1 fL (80.0-100.0); Mean Platelet Volume 9.9 fL (9.4-12.3); Platelet Count 105 K/uL (130-400); RDW Coefficient of Variation 14.9 % (11.5-14.5); RDW Standard Deviation 47.8 fL (36.4-46.3); Red Blood Count 3.87 M/uL (3.93-5.22); White Blood Count 5.58 K/ul (4.8-10.8)
[2022-04-18 14:49] LABS: Basophils # (auto) 0.02 K/uL (0-0.2); Basophils % (auto) 0.4 %; Dohle Bodies 1+; Eosinophils # (auto) 0.03 K/uL (0-0.50); Eosinophils % (auto) 0.5 %; Immature Granulocytes # (auto) 0.01 K/uL (0.00-0.02); Immature Granulocytes % (auto) 0.2 %; Lymphocytes % (auto) 7.2 %; Monocytes # (auto) 0.56 K/uL (0.24-0.82); Neutrophils # (auto) 4.56 K/uL (1.4-6.5); Neutrophils % (auto) 81.7 %; Toxic Vacuolation 2+
[2022-04-18 15:03] LABS: Appearance Urine Clear (Clear); Bacteria Urine Automated Negative (Negative); Bilirubin Urine Negative (Negative); Blood Urine Negative (Negative); Color Urine Yellow; Glucose Urine UA Negative (Negative); Ketones Urine 1+ (Negative); Leukocyte Esterase Urine Negative (Negative); Nitrite Urine Negative (Negative); Protein Urine 1+ (Negative); RBC Urine Automated 0-4 /hpf (0-4); Specific Gravity Urine 1.017 (1.000-1.030); Urobilinogen Urine Negative (Negative)
--- NOTE | 2022-04-18 15:27 | History & Physical Report ---
Date of Service April 18, 2022 Assessment & Plan (1) Pneumonia: Plan: Elevated procalcitonin to 2.05. CXR with asymmetric bilateral airspace opacities, possible PNA. Patient does have history of prior MRSA as well as Pseudomonal infections. Presently afebrile, HD stable, adequate oxygenation on room air. Biofire panel completed - results pending at this time -Follow cultures, follow biofire results -Vancomycin and Cefepime for broad coverage given history of prior MRSA and Pseudomonas infections (2) Elevated troponin: Plan: Troponin = 291. 7. Patient denies chest pain. No EKG evidence of acute ischemia. Renal function is at baseline -Telemetry monitoring -Trend troponin to peak -Check 2D echo -Continue ASA 325mg po daily -Continue Losartan (3) Venous stasis dermatitis: Plan: History of chronic venous insufficiency with venous stasis ulcers, stasis dermatitis and acquired lymphedema. Patient follows with wound care. Last seen 04/16/22. Note reviewed. She had debridement of wounds of the right first and second toes. -Maintain leg wraps -Wound care appreciated - recommended triamcinolone with wrap changes (4) Rheumatoid arthritis: Plan: Patient with RA. Well controlled. -Continue Prednisone 7.5mg po qAM -Continue Hydroxychloroquine 400mg po qHS -Low threshold for stress dose steroids should patient develop sepsis, hypotension (5) HTN (hypertension): Plan: Chronic. Blood pressure elevated in ER, presently 153/84 -Continue Losartan 25mg po daily -Monitor (6) CKD (chronic kidney disease) stage 3, GFR 30-59 ml/min: Plan: BUN=20, Cr=1.14. Near baseline -Monitor renal function -Monitor UOP -Avoid nephrotoxic agents F/E/N - NSS at 80mL/hr x 2, Electrolytes acceptable, AHA diet as tolerated Ppx - Lovenox Code - DNR/DNI per discussion with patient Dispo - Admit to medical with telemetry History of Present Illness Chief Complaint: weakness, sore throat and headache Primary Care Provider: KARI Coughlin Dona Villalpando is a 76yo female with history of HTN, HLP, RA on hydroxychloroquine and Prednisone, chronic venous insufficiency with stasis ulcers presenting with 3-4 days of feeling ill. She reports generalized weak ness and fatigue as well as sore throat, headache and dry cough which has been ongoing for the last 3-4 days. She has been having a difficult time ambulating and fell yesterday. Her home health nurse came today and contacted her PCP who recommended that she come to the ER for further evaluation. She denies fever, chest pain, palpitations, nausea, vomiting, diarrhea or constipation. She reports she has been eating and drinking fairly well at home. No additional complaints at this time. In the ER she is afebrile, hypertensive otherwise HD stable. ER course: ASA 324mg NSS x 250mL, now at 125mL/hr Ceftriaxone 2gm Allergies Allergy/AdvReac Type Severity Reaction Status Date / Time cefadroxil Allergy Intermediate Rash Verified 04/07/22 10:22 Sulfa (Sulfonamide Allergy Intermediate RASH Verified 04/07/22 10:22 Antibiotics) cefepime Allergy Unknown Unknown Verified 04/07/22 10:22 cephalexin [From Keflex] Allergy Unknown Unknown Verified 04/07/22 10: levofloxacin [From Levaquin] AdvReac Intermediate rash Verified 04/07/22 10:22 oxycodone AdvReac Mild NAUSEA Verified 04/07/22 10:22 Home Medications Medication Instructions Recorded Confirmed Type leflunomide 10 mg tablet 10 mg PO DAILY 07/10/20 04/18/22 History prednisone 5 mg tablet 5 mg PO QAM 11/16/20 04/18/22 History aspirin 325 mg tablet,delayed 325 mg PO DAILY 08/26/21 04/18/22 History release hydroxychloroquine 200 mg tablet 400 mg PO HS 04/18/22 04/18/22 History losartan 25 mg tablet 25 mg PO DAILY 04/18/22 04/18/22 History prednisone 2.5 mg tablet 2.5 mg PO QAM 04/18/22 04/18/22 History Past Med/Surg History Medical History Anemia Bacterial infection due to Pseudomonas Bacterial infection due to Serratia Cancer MELANOMA Cellulitis BILATERAL LEGS AND FEET, INPATIENT [facility] (JULY 2018) Cellulitis of left thigh Cellulitis of left thigh Chronic steroid use CKD (chronic kidney disease) stage 3, GFR 30-59 ml/min Folate deficiency Fracture of sacrum BILATERAL. ~2016, PHYSICAL THERAPY. USES WALKER HLD (hyperlipidemia) HTN (hypertension) No blood products PER PATIENT REQUEST Obesity Pneumonia AUGUST 2017 Pressure ulcer of upper thigh Rheumatoid arthritis Septic shock Surgical History History of cataract surgery BILATERAL History of colonoscopy History of surgical removal of skin lesion BACK History of total hip replacement RIGHT S/P debridement (11/29/19) Right Thigh wound debridement, sharp, greater than [address] Peter 11/29/2019 S/P revision of total hip RIGHT S/P JUAN-BSO Total knee replacement status BILATERAL Family History Father Non Hodgkin's lymphoma Mother Coronary heart disease Social History Smoking Status: Never smoker Second Hand Exposure: No; Hx Alcohol Use: No Hx Substance Use: No Preferred Language: Guyanese Communication Ability: Effective Office Machine Servicer Required: No Beliefs That Will Affect Care: None marital status: Single Current Living Situation: Alone Current Living Situation Comment: lives at home, brother and niece help when needed. 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 Feels Safe at Home: Yes Assistive Devices: Glasses and Walker Review of Systems Review of Systems: All systems reviewed & are unremarkable except as noted in HPI & below Physical Exam Physical Exam: General: patient resting comfortably, NAD, ill in appearance Skin: warm, dry, leg wraps in place, numerous sebhorrheic keratoses on back HEENT: NC/AT, PERRL, EOMI, anicteric sclera, conjunctiva without injection, external ear normal to inspection and nontender, nares patent, moist mucus membranes, dentition intact, no oropharyngeal lesions, neck supple, trachea midline, no LAD, no thyromegaly, no JVD Heart: +S1/S2, regular, no m/r/g Lungs: equal air entry bilaterally, crackles in bilateral mid lung hernandez, diminished breath sounds in bases Abd: +BS, soft, NT/ND, no masses/organomegaly/ascites Ext: warm, 2+ pulses in UE/LE bilaterally, no clubbing/cyanosis, leg wraps in place Neuro: nonfocal, patient AA&O x 4, speech intact, no facial droop, moving all extremities on command with equal strength 5/5 Results & Data Results & Data ([facility]) Vital Signs (Past 12 Hours) Vital Signs Temp Pulse Pulse Resp BP BP Pulse Ox 04/18/22 15:11 91 H 18 153/84 H 95 04/18/22 12:59 37.1 C 04/18/22 12:57 90 18 171/85 H 96 04/18/22 12:37 94 H 18 95 04/18/22 11:12 37.6 C H 94 H 18 159/82 H 94 04/18/22 10:59 37.6 C H 95 H 18 159/82 H 96 O2 Del Method 04/18/22 15:11 Room Air 04/18/22 12:59 04/18/22 12:57 Room Air 04/18/22 12:37 Room Air 04/18/22 11:12 Room Air 04/18/22 10:59 Room Air Laboratory Results Laboratory Results WBC 5.58 K/ul (4.8-10.8) 04/18/22 14:18 RBC 3.87 M/uL (3.93-5.22) L 04/18/22 14:18 Hgb 10.8 g/dl (12.0-16.0) L 04/18/22 14:18 Hct 33.7 % (34.1-44.9) L 04/18/22 14:18 MCV 87.1 fL (80.0-100.0) 04/18/22 14:18 MCH 27.9 pg (25.0-34.0) 04/18/22 14:18 MCHC 32.0 g/dL (32.0-36.0) 04/18/22 14:18 RDW Std Deviation 47.8 fL (36.4-46.3) H 04/18/22 14:18 RDW Coeff of Saadia 14.9 % (11.5-14.5) H 04/18/22 14:18 Plt Count 105 K/uL (130-400) L 04/18/22 14:18 MPV 9.9 fL (9.4-12.3) 04/18/22 14:18 Immature Gran % (Auto) 0.2 % 04/18/22 14:18 Neut % (Auto) 81.7 % 04/18/22 14:18 Lymph % (Auto) 7.2 % 04/18/22 14:18 Labette % (Auto) 10.0 % 04/18/22 14:18 Eos % (Auto) 0.5 % 04/18/22 14:18 Baso % (Auto) 0.4 % 04/18/22 14:18 Neut # (Auto) 4.56 K/uL (1.4-6.5) 04/18/22 14:18 Lymph # (Auto) 0.40 K/uL (1.2-3.4) L 04/18/22 14:18 Labette # (Auto) 0.56 K/uL (0.24-0.82) 04/18/22 14:18 Eos # (Auto) 0.03 K/uL (0-0.50) 04/18/22 14:18 Baso # (Auto) 0.02 K/uL (0-0.2) 04/18/22 14:18 Immature Gran # (Auto) 0.01 K/uL (0.00-0.02) 04/18/22 14:18 Absolute Nucleated RBC Cancelled 04/18/22 12:20 Nucleated RBC % (auto) Cancelled 04/18/22 12:20 Neutrophils % (Manual) Cancelled 04/18/22 12:20 Band Neutrophils % Cancelled 04/18/22 12:20 Lymphocytes % (Manual) Cancelled 04/18/22 12:20 Prolymphocyte % Cancelled 04/18/22 12:20 Reactive Lymphs % (Man) Cancelled 04/18/22 12:20 Monocytes % (Manual) Cancelled 04/18/22 12:20 Eosinophils % (Manual) Cancelled 04/18/22 12:20 Basophils % (Manual) Cancelled 04/18/22 12:20 Metamyelocytes % (Man) Cancelled 04/18/22 12:20 Myelocytes % (Man) Cancelled 04/18/22 12:20 Promyelocytes % (Man) Cancelled 04/18/22 12:20 Blast Cells % (Manual) Cancelled 04/18/22 12:20 Plasma Cell % (Manual) Cancelled 04/18/22 12:20 Other Cells % Cancelled 04/18/22 12:20 Nucleated RBC % Cancelled 04/18/22 12:20 Neutrophils # (Manual) Cancelled 04/18/22 12:20 Band Neutrophils # Cancelled 04/18/22 12:20 Total Absolute Neuts Cancelled 04/18/22 12:20 Lymphocytes # (Manual) Cancelled 04/18/22 12:20 Prolymphocyte # Cancelled 04/18/22 12:20 Reactive Lymphs # Cancelled 04/18/22 12:20 Total Abs Lymphocytes Cancelled 04/18/22 12:20 Monocytes # (Manual) Cancelled 04/18/22 12:20 Eosinophils # (Manual) Cancelled 04/18/22 12:20 Basophils # (Manual) Cancelled 04/18/22 12:20 Metamyelocytes # (Man) Cancelled 04/18/22 12:20 Myelocytes # (Manual) Cancelled 04/18/22 12:20 Promyelocytes # (Man) Cancelled 04/18/22 12:20 Blast Cells # (Man) Cancelled 04/18/22 12:20 Plasma Cell # (Manual) Cancelled 04/18/22 12:20 Other Cells # Cancelled 04/18/22 12:20 Nucleated RBCs # (Man) Cancelled 04/18/22 12:20 Hypersegmented Neuts Cancelled 04/18/22 12:20 Hyposegmented Neuts Cancelled 04/18/22 12:20 Hypogranular Neuts Cancelled 04/18/22 12:20 Large Granular Lymphs Cancelled 04/18/22 12:20 # Lrg Granular Lymphs Cancelled 04/18/22 12:20 Hairy Cells Cancelled 04/18/22 12:20 Smudge Cells Cancelled 04/18/22 12:20 Toxic Granulation Cancelled 04/18/22 12:20 Toxic Vacuolation 2+ 04/18/22 14:18 Dohle Bodies 1+ 04/18/22 14:18 Yojana Rods Cancelled 04/18/22 12:20 Platelet Estimate Cancelled 04/18/22 12:20 Hypogranular Platelets Cancelled 04/18/22 12:20 Clumped Platelets Cancelled 04/18/22 12:20 Giant Platelets Cancelled 04/18/22 12:20 Platelet Satelliting Cancelled 04/18/22 12:20 RBC Morphology Cancelled 04/18/22 12:20 Polychromasia Cancelled 04/18/22 12:20 Hypochromasia Cancelled 04/18/22 12:20 Poikilocytosis Cancelled 04/18/22 12:20 Basophilic Stippling Cancelled 04/18/22 12:20 Anisocytosis Cancelled 04/18/22 12:20 Microcytosis Cancelled 04/18/22 12:20 Macrocytosis Cancelled 04/18/22 12:20 Spherocytes Cancelled 04/18/22 12:20 Pappenheimer Bodies Cancelled 04/18/22 12:20 Sickle Cells Cancelled 04/18/22 12:20 Target Cells Cancelled 04/18/22 12:20 Tear Drop Cells Cancelled 04/18/22 12:20 Ovalocytes Cancelled 04/18/22 12:20 Stomatocytes Cancelled 04/18/22 12:20 Cobb-Archie Bodies Cancelled 04/18/22 12:20 Echinocytes Cancelled 04/18/22 12:20 Acanthocytes (Spur) Cancelled 04/18/22 12:20 Rouleaux Cancelled 04/18/22 12:20 RBC Agglutinates Cancelled 04/18/22 12:20 Schistocytes Cancelled 04/18/22 12:20 Sezary Cell Cancelled 04/18/22 12:20 Sodium 143 mmol/L (136-145) 04/18/22 12:20 Potassium 3.5 mmol/L (3.5-5.1) 04/18/22 12:20 Chloride 109 mmol/L (98-107) H 04/18/22 12:20 Carbon Dioxide 25 mmol/L (21-32) 04/18/22 12:20 Anion Gap 9 (3-11) 04/18/22 12:20 BUN 20 mg/dl (6-23) 04/18/22 12:20 Creatinine 1.14 mg/dl (0.6-1.2) 04/18/22 12:20 Est Cr Clr Drug Dosing 49.0 ml/min 04/18/22 12:20 Est GFR ( Amer) 54.1 ml/min 04/18/22 12:20 Est GFR (Non-Af Amer) 46.7 ml/min 04/18/22 12:20 BUN/Creatinine Ratio 17.5 (10-20) 04/18/22 12:20 Glucose 72 mg/dl (70-99(Fasting)) 04/18/22 12:20 Lactate 1.0 mmol/L (0.4-2.0) 04/18/22 12:45 Calcium 9.3 mg/dl (8.5-10.1) 04/18/22 12:20 Magnesium 1.7 mg/dl (1.7-2.4) 04/18/22 12:20 Total Bilirubin 1.1 mg/dl (0.2-1.0) H 04/18/22 12:20 Direct Bilirubin 0.3 mg/dl (0-0.2) H 04/18/22 12:20 AST 21 U/L (13-39) 04/18/22 12:20 ALT 19 U/L (7-52) 04/18/22 12:20 Alkaline Phosphatase 120 U/L (34-104) H 04/18/22 12:20 Troponin I High Sens 291.7 pg/ml (0-14) H* 04/18/22 12:20 Total Protein 5.7 gm/dl (6.0-8.3) L 04/18/22 12:20 Albumin 3.3 gm/dl (3.4-5.0) L 04/18/22 12:20 Procalcitonin 2.05 ng/ml (0-0.5) H 04/18/22 12:20 Urine Color Yellow 04/18/22 14:12 Urine Appearance Clear (Clear) 04/18/22 14:12 Urine pH 6.0 (4.5-7.5) 04/18/22 14:12 Ur Specific [place] 1.017 (1.000-1.030) 04/18/22 14:12 Urine Protein 1+ (Negative) H 04/18/22 14:12 Urine Glucose (UA) Negative (Negative) 04/18/22 14:12 Urine Ketones 1+ (Negative) H 04/18/22 14:12 Urine Blood Negative (Negative) 04/18/22 14:12 Urine Nitrite Negative (Negative) 04/18/22 14:12 Urine Bilirubin Negative (Negative) 04/18/22 14:12 Urine Urobilinogen Negative (Negative) 04/18/22 14:12 Ur Leukocyte Esterase Negative (Negative) 04/18/22 14:12 Urine WBC (Auto) 1-5 /hpf (0-5) 04/18/22 14:12 Urine RBC (Auto) 0-4 /hpf (0-4) 04/18/22 14:12 U Hyaline Cast (Auto) 1-5 /lpf (0-5) 04/18/22 14:12 U Epithel Cells (Auto) 10-20 /lpf (0-5) H 04/18/22 14:12 Urine Bacteria (Auto) Negative (Negative) 04/18/22 14:12 Blood Parasites ID Cancelled 04/18/22 12:20 Impressions Chest X-Ray 04/18/22 11:53 SINGLE VIEW CHEST CLINICAL HISTORY: Sepsis. FINDINGS: An AP, portable, upright chest radiograph is compared to study dated 12/03/2020. The examination is degraded by portable technique and patient rotation. The heart is enlarged noting atherosclerotic calcification of the tho racic aorta. There is pulmonary vascular congestion. Asymmetric bilateral airspace opacities identify, greatest in the left midlung. No large pleural effusion or pneumothorax is seen. The skeletal structures are osteopenic. The bony thorax is grossly intact. Arthritic change is seen in the shoulders. IMPRESSION: 1. Cardiomegaly with pulmonary vascular congestion. 2. There are asymmetric bilateral airspace opacities. This could represent pulmonary edema and/or pneumonia. Clinical correlation will be required and radiographic follow-up to resolution is recommended. ACT 112: Negative or not required by law. Electronically signed by: Jf Bronson M.D. 04/18/2022 12:[address] 04/18/22 12:[address] DOSE: 3070.74 mGy.cm HISTORY: falls, weakness TECHNIQUE: Multiaxial CT images of the head were performed without the use of intravenous contrast. Automated exposure control was utilized for this study. A dose lowering technique was utilized adhering to the principles of ALARA. Comparison: None. Findings: Motion artifact. Mild mucosal thickening within the paranasal sinuses. Trace effusion within the left mastoid air cells. The right mastoid air cells are clear. The calvarium and skull base are intact. There is no mass, hematoma, midline shift, acute infarct. White matter hypodensity is nonspecific but suggestive of microvascular ischemic change. The ventricles and sulci demonstrate mild age-related involutional changes. Impression: Motion artifact. No definite acute intracranial abnormality. ACT 112: Negative or not required by law. Electronically signed by: Grabiel Varela M.D. 04/18/2022 1:30 PM ECG Additional Comments: DICTATED BY:Berhane Gutierrez MD Test Reason : Blood Pressure : / mmHG Vent. Rate : 093 BPM Atrial Rate : 093 BPM P-R Int : 132 ms QRS Dur : 090 ms QT Int : 372 ms P-R-T Axes : 045 -33 036 degrees QTc Int : 462 ms Poor data quality, interpretation may be adversely affected Normal sinus rhythm Left axis deviation Moderate voltage criteria for LVH, may be normal variant Abnormal ECG When compared with ECG of 05-DEC-2020 05:50, Vent. rate has increased BY 33 BPM Confirmed by Berhane Gutierrez ([id number]) on 04/18/2022 1:05:30 PM Referred By: REFERRED SELF Confirmed By:Steven Gutierrez PG Care Time/CCT Total # of Minutes Spent Total Time Spent with Patient: Total time spent is greater than 50% in coordination of care (as documented) at patient's floor/unit and/or counseling patient: Coding Level of Care Code 59897 Initial Inpt Care Lvl 3 Diagnoses Pneumonia J18.9 Elevated troponin R77.8 Venous stasis dermatitis I87.2 Rheumatoid arthritis M06.9 Rheumatoid arthritis location: unspecified site Rheumatoid factor presence: unspecified presence HTN (hypertension) I10 CKD (chronic kidney disease) stage 3, GFR 30-59 ml/min N18.30 Chronic kidney disease stage 3 subtype: unspecified whether 3a or 3b (1) CKD (chronic kidney disease) stage 3, GFR 30-59 ml/min Chronic kidney disease stage 3 subtype: unspecified whether 3a or 3b Qualified Code(s): N18.30 - Chronic kidney disease, stage 3 unspecified (2) Rheumatoid arthritis Rheumatoid arthritis location: unspecified site Rheumatoid factor presence: unspecified presence Qualified Code(s): M06.9 - Rheumatoid arthritis, unspecified
[2022-04-18 16:32] LABS: Adenovirus PCR Not Detected (NotDetected); Bordetella parapertussis PCR Not Detected (NotDetected); Bordetella pertussis PCR Not Detected (NotDetected); Chlamydia pneumoniae PCR Not Detected (NotDetected); Coronavirus 229E PCR Not Detected (NotDetected); Coronavirus CoV-2 (COVID19)PCR Not Detected (NotDetected); Coronavirus HKU1 PCR Not Detected (NotDetected); Coronavirus NL63 PCR Not Detected (NotDetected); Coronavirus OC43PCR Not Detected (NotDetected); Human Metapneumovirus PCR Not Detected (NotDetected); Influenza A PCR Not Detected (NotDetected); Influenza B PCR Not Detected (NotDetected); Mycoplasma pneumoniae PCR Not Detected (NotDetected); Parainfluenza Virus 1 PCR Not Detected (NotDetected); Parainfluenza Virus 2 PCR Not Detected (NotDetected); Parainfluenza Virus 3 PCR Not Detected (NotDetected); Parainfluenza Virus 4 PCR Not Detected (NotDetected); Respiratory Syncytial VirusPCR Not Detected (NotDetected)
[2022-04-18 16:38] LABS: Rhinovirus/Enterovirus PCR DETECTED (NotDetected)
[2022-04-18] MEDS ORDERED: VANCOMYCIN CONSULT ACTIVE PRN (17:09)
[2022-04-18] MEDS ORDERED: VANCOMYCIN HCL 1,000 MG in SODIUM CHLORIDE 0.9% 250 ML IV SCH (17:09)
[2022-04-18] MEDS ORDERED: VANCOMYCIN HCL 2,000 MG in SODIUM CHLORIDE 0.9% 500 ML IV ONE (19:00)
[2022-04-18] MEDS: SODIUM CHLORIDE 0.9% 1000ML 1,000 ML IV SCH (19:00)
[2022-04-18] MEDS ORDERED: CEFEPIME 2,000 MG in SYRINGE 0 ML IV SCH (19:15)
[2022-04-18] MEDS: CEFEPIME 2,000 MG in SYRINGE 0 ML IV SCH ×2 (20:26→20:33)
[2022-04-18] MEDS: HYDROXYCHLOROQUINE SULFATE 200 MG TAB PO SCH (23:45)
[2022-04-19] MEDS: VANCOMYCIN HCL 750 MG in SODIUM CHLORIDE 0.9% 250 ML IV SCH ×2 (06:35→19:45)
[2022-04-19] MEDS: SODIUM CHLORIDE 0.9% 1000ML 1,000 ML IV SCH (06:35)
[2022-04-19 06:47] LABS: Hematocrit (blood only) 33.5 % (34.1-44.9); Hemoglobin 10.6 g/dl (12.0-16.0); Mean Corpuscular Hemoglobin 27.5 pg (25.0-34.0); Mean Corpuscular Hgb Conc 31.6 g/dL (32.0-36.0); Mean Platelet Volume 9.7 fL (9.4-12.3); Platelet Count 99 K/uL (130-400); RDW Coefficient of Variation 14.9 % (11.5-14.5); RDW Standard Deviation 47.8 fL (36.4-46.3); Red Blood Count 3.85 M/uL (3.93-5.22); White Blood Count 4.19 K/ul (4.8-10.8)
[2022-04-19 07:32] LABS: Albumin Level 2.6 gm/dl (3.4-5.0); BUN Creatinine Ratio 22.2 (10-20); Bilirubin Direct 0.4 mg/dl (0-0.2); Bilirubin,Total 0.8 mg/dl (0.2-1.0); Calcium 7.8 mg/dl (8.5-10.1); Creatinine Clr Calc Pharmacy 56.5 ml/min; Est GFR (African American) 64.2 ml/min; Est GFR (Non-African American) 55.4 ml/min; Potassium 3.5 mmol/L (3.5-5.1); Total Protein 4.5 gm/dl (6.0-8.3)
[2022-04-19] MEDS: predniSONE 5 MG TAB PO SCH (10:12)
[2022-04-19] MEDS: ENOXAPARIN INJ 40 MG/0.4 ML SYR SQ SCH (10:12)
[2022-04-19] MEDS: LOSARTAN POTASSIUM 25 MG TAB PO SCH (10:12)
[2022-04-19] MEDS: ASPIRIN 325 MG ECTAB PO SCH (10:12)
[2022-04-19] MEDS: predniSONE 2.5 MG TAB PO SCH (10:12)
[2022-04-19] MEDS: D5NSS + 20MEQ KCL 20 MEQ/1,000 ML BAG IV SCH (10:28)
--- NOTE | 2022-04-19 13:27 | Pharmacy Report ---
Pharmacy PK ABX Note - Date of Service April 19, 2022 - Assessment and Plan Assessment 76 year old F receiving vancomycin and cefepime for treatment of pulmonary source. Pertinent microbiologic data includes: history of MRSA and pseudomonas infections. MRSA nasal swab ordered today and is pending. Of note, Biofire resp. panel positive for entero/rhinovirus. Discussed with provider and will plan to continue antibiotics for the time being. Day # 2 of antimicrobial therapy. Plan Vancomycin * Loading dose: 2000 mg IV x 1 (administered last evening) * Maintenance dose: 750 mg IV every 12 hours * Regimen is predicted to achieve target AUC/SONAL of 400-600 mg/L.hr * Random level ordered for: 04/21/22 with AM labs Pharmacy will continue to follow and will adjust dose/frequency as necessary. Thank you. Pharmacy has transitioned to AUC monitoring for vancomycin. AUC/SONAL is the preferred PK/PD target and is associated with decreased risk of nephrotoxicity compared to traditional trough targets.
--- NOTE | 2022-04-19 14:39 | XCELERA ---
[id number] \\[id number]
--- NOTE | 2022-04-19 14:45 | Electrocardiogram Report ---
Test Reason : Blood Pressure : / mmHG Vent. Rate : 088 BPM Atrial Rate : 088 BPM P-R Int : 130 ms QRS Dur : 086 ms QT Int : 378 ms P-R-T Axes : 056 -33 032 degrees QTc Int : 457 ms Normal sinus rhythm Left axis deviation Poor R wave progression, consider anterior ID vs. lead placement vs. LVH Abnormal ECG When compared with ECG of 18-APR-2022 12:14, No significant change was found Confirmed by Marquis Mendoza ([id number]) on 04/19/2022 2:45:48 PM Referred By: REFERRED SELF Confirmed By:Marquis Mendoza
--- NOTE | 2022-04-19 14:50 | Hospitalist Progress Note ---
Date of Service April 19, 2022 Assessment & Plan (1) Pneumonia: Plan: CXR with asymmetric bilateral airspace opacities, suspected PNA. Patient does have history of prior MRSA as well as Pseudomonal infections. Adequate oxygenation on room air. (2) Elevated troponin: Plan: No acute EKG changes and no regional wall motion abnormality seen on cardiac echo. No evidence of acute coronary syndrome. (3) Venous stasis dermatitis: Plan: History of chronic venous insufficiency with venous stasis ulcers, stasis dermatitis and acquired lymphedema. Patient follows with wound care. Last seen 04/16/22. Note reviewed. She had debridement of wounds of the right first and second toes. Maintain leg wraps. Wound care appreciated - recommended triamcinolone with wrap changes (4) Rheumatoid arthritis: Plan: Patient with RA. Well controlled. Continue Prednisone 7.5mg po qAM. Continue Hydroxychloroquine 400mg po qHS (5) HTN (hypertension): Plan: Chronic. Treated with Losartan (6) CKD (chronic kidney disease) stage 3, GFR 30-59 ml/min: Plan: Monitor intake and output. Serial lab studies. Plan Disposition to be determined. Await OT and PT assessments Admission and Anticipated Discharge Date Admission Date: April 18, 2022 Subjective Alert and oriented. Troponin is downtrending. There are no acute EKG changes and no regional wall motion abnormality seen on cardiac echo. She has not suffered an acute coronary syndrome. IV fluids taper down. She remains on vancomycin and cefepime, day 2. She was hypoglycemic this morning which was corrected with D5W added to the IV fluids. OT and PT assessments ordered. Review of Systems Review of Systems: Constitutional-no fever or chills ENT-no blurred vision, no double vision, no epistaxis, no sore throat Respiratory-no cough, no wheezing, no shortness of breath Cardiac-no palpitations, no chest pain, no syncope GI-no nausea, vomiting, diarrhea, melena, hematochezia -no urinary retention, no urinary incontinence, no dysuria, no hematuria Musculoskeletal-no joint pain, no muscle tenderness Skin-no bruising, no rashes, no pruritus Neuro-no isolated weakness, no paresthesia, no weakness Psych-no depression, no anxiety Physical Exam Physical Exam: General-alert and oriented x3, no fevers, no chills HEENT-head atraumatic and normocephalic, pupils equal and reactive to light, e xtraocular muscles intact Neck-no lymphadenopathy or thyromegaly, trachea midline Chest-scattered bilateral rhonchi. No dullness to percussion. No rales or wheezing Cardiac-regular rate and rhythm, normal S1 and S2 Abdomen-normal bowel sounds, nontender, no hepatosplenomegaly Extremities-no cyanosis, clubbing, or edema Neuro-cranial nerves II through XII intact, motor and sensory function within normal limits, strength symmetrical , no focal deficits Psych-normal affect, normal mood Results & Data Results & Data ([facility]) Vital Signs (Past 12 Hours) Vital Signs Temp Pulse Pulse Resp BP Pulse Ox O2 Del Method 04/19/22 11:24 37.2 C 82 17 142/72 H 95 Room Air 04/19/22 08:00 82 04/19/22 07:45 Room Air 04/19/22 07:47 36.9 C 75 19 159/79 H 94 Room Air 04/19/22 02:56 37 C 69 18 153/73 H 94 Room Air Laboratory Results 04/19/22 06:24 04/19/22 06:24 PG Care Time/CCT Total # of Minutes Spent Total Time Spent with Patient: Total time spent is greater than 50% in coordination of care (as documented) at patient's floor/unit and/or counseling patient: Coding Level of Care Code 21174 Subseq Hosp Care Lvl 3 Diagnoses Pneumonia J18.9 Elevated troponin R77.8 Venous stasis dermatitis I87.2 Rheumatoid arthritis M06.9 Rheumatoid arthritis location: unspecified site Rheumatoid factor presence: unspecified presence HTN (hypertension) I10 CKD (chronic kidney disease) stage 3, GFR 30-59 ml/min N18.30 Chronic kidney disease stage 3 subtype: unspecified whether 3a or 3b (1) Rheumatoid arthritis Rheumatoid arthritis location: unspecified site Rheumatoid factor presence: unspecified presence Qualified Code(s): M06.9 - Rheumatoid arthritis, unspecified (2) CKD (chronic kidney disease) stage 3, GFR 30-59 ml/min Chronic kidney disease stage 3 subtype: unspecified whether 3a or 3b Qualified Code(s): N18.30 - Chronic kidney disease, stage 3 unspecified
[2022-04-19] MEDS: CEFEPIME 2,000 MG in SYRINGE 0 ML IV SCH (19:45)
[2022-04-19] MEDS: HYDROXYCHLOROQUINE SULFATE 200 MG TAB PO SCH (21:43)
[2022-04-20] MEDS: D5NSS + 20MEQ KCL 20 MEQ/1,000 ML BAG IV SCH (05:59)
[2022-04-20] MEDS: VANCOMYCIN HCL 750 MG in SODIUM CHLORIDE 0.9% 250 ML IV SCH (05:59)
[2022-04-20 06:56] LABS: Hematocrit (blood only) 32.3 % (34.1-44.9); Hemoglobin 10.3 g/dl (12.0-16.0); Mean Corpuscular Hemoglobin 27.4 pg (25.0-34.0); Mean Corpuscular Hgb Conc 31.9 g/dL (32.0-36.0); Mean Corpuscular Volume 85.9 fL (80.0-100.0); Platelet Count 109 K/uL (130-400); RDW Coefficient of Variation 15.1 % (11.5-14.5); RDW Standard Deviation 47.8 fL (36.4-46.3); Red Blood Count 3.76 M/uL (3.93-5.22); White Blood Count 5.17 K/ul (4.8-10.8)
[2022-04-20 07:09] LABS: BUN Creatinine Ratio 17.8 (10-20); Calcium 7.7 mg/dl (8.5-10.1); Creatinine Clr Calc Pharmacy 47.4 ml/min; Est GFR (African American) 51.9 ml/min; Est GFR (Non-African American) 44.8 ml/min; Potassium 3.7 mmol/L (3.5-5.1)
[2022-04-20 07:20] LABS: Basophils # (auto) 0.02 K/uL (0-0.2); Basophils % (auto) 0.4 %; Echinocytes 2+; Eosinophils # (auto) 0.26 K/uL (0-0.50); Immature Granulocytes # (auto) 0.05 K/uL (0.00-0.02); Lymphocytes # (auto) 0.46 K/uL (1.2-3.4); Lymphocytes % (auto) 8.9 %; Monocytes % (auto) 5.8 %; Neutrophils # (auto) 4.08 K/uL (1.4-6.5); Neutrophils % (auto) 78.9 %; Toxic Vacuolation 3+
[2022-04-20] MEDS: CEFEPIME 2,000 MG in SYRINGE 0 ML IV SCH (08:14)
[2022-04-20] MEDS: predniSONE 2.5 MG TAB PO SCH (08:15)
[2022-04-20] MEDS: ENOXAPARIN INJ 40 MG/0.4 ML SYR SQ SCH (08:15)
[2022-04-20] MEDS: predniSONE 5 MG TAB PO SCH (08:15)
[2022-04-20] MEDS: LOSARTAN POTASSIUM 25 MG TAB PO SCH (08:15)
[2022-04-20] MEDS: ASPIRIN 325 MG ECTAB PO SCH (08:15)
[2022-04-20] MEDS: AZITHROMYCIN 250 MG TAB PO SCH (10:56)
--- NOTE | 2022-04-20 11:56 | XRay Report ---
XR chest 1V portable HISTORY: Shortness of breath. COMPARISON: Chest 04/18/2022. FINDINGS: No pneumothorax. Interval progression of the perihilar airspace opacities and interstitial thickening. This favors pulmonary edema. Small bilateral pleural effusions have also progressed. The heart remains enlarged. There are low lung volumes. Old, healed right-sided rib fractures again noted . IMPRESSION: Interval progression of the interstitial pulmonary edema and bilateral pleural effusions. A superimpo sed pneumonia would be difficult to exclude by imaging. ACT 112: Negative or not required by law. Electronically signed by: Grabiel Varela M.D. 04/20/2022 11:54 AM
[2022-04-20] MEDS ORDERED: POTASSIUM CHLORIDE 10 MEQ TABCR PO STA (12:29)
[2022-04-20] MEDS: FUROSEMIDE 40 MG/4 ML VIAL IV SCH ×2 (12:30→22:42)
--- NOTE | 2022-04-20 12:35 | Hospitalist Progress Note ---
Date of Service April 20, 2022 Assessment & Plan (1) Pneumonia: Plan: CXR with asymmetric bilateral airspace opacities, suspected PNA, on admission. Chest x-ray today revealed reveals evidence of congestive heart failure. IV antibiotics switched to oral azithromycin. Adequate oxygenation on room air. (2) Elevated troponin: Plan: No acute EKG changes and no regional wall motion abnormality seen on cardiac echo. No evidence of acute coronary syndrome. (3) Venous stasis dermatitis: Plan: History of chronic venous insufficiency with venous stasis ulcers, stasis dermatitis and acquired lymphedema. Patient follows with wound care. Last seen 04/16/22. Note reviewed. She had debridement of wounds of the right first and second toes. Maintain leg wraps. Wound care appreciated - recommended triamcinolone with wrap changes (4) Rheumatoid arthritis: Plan: Patient with RA. Well controlled. Continue Prednisone therapy. Continue Hydroxychloroquine (5) HTN (hypertension): Plan: Chronic. Treated with Losartan (6) CKD (chronic kidney disease) stage 3, GFR 30-59 ml/min: Plan: Monitor intake and output. Serial lab studies. (7) Acute diastolic CHF (congestive heart failure): Plan: Recent cardiac echo reveals normal ejection fraction. She has moderate aortic valve stenosis however. Chest x-ray today, April 20, reveals large bilateral pleural effusions with CHF. Intravenous Lasix has been ordered along with potassium supplementation. We will monitor intake and output Plan Disposition to be determined. Await OT and PT assessments. She may require SNF placement at discharge Admission and Anticipated Discharge Date Admission Date: April 18, 2022 Subjective The patient appears ill. Clinical examination consistent with get chest of heart failure. Chest x-ray reveals large bilateral pleural effusions. Recent cardiac echo revealed normal ejection fraction with no regional wall motion abnormalities. Evidence of moderate aortic stenosis. IV fluids have been discontinued. She will be treated for what appears to be diastolic CHF. In travenous Lasix ordered. We will add oral potassium and monitor daily electrolytes. IV antibiotics switched to oral azithromycin for now. She is 92% saturation on room air. Review of Systems Review of Systems: Constitutional-no fever or chills ENT-no blurred vision, no double vision, no epistaxis, no sore throat Respiratory-no cough, no wheezing. Appears short of breath at rest Cardiac-no palpitations, no chest pain, no syncope GI-no nausea, vomiting, diarrhea, melena, hematochezia -no urinary retention, no urinary incontinence, no dysuria, no hematuria Musculoskeletal-no joint pain, no muscle tenderness Skin-no bruising, no rashes, no pruritus Neuro-no isolated weakness, no paresthesia, no weakness Psych-no depression, no anxiety Physical Exam Physical Exam: General-alert and oriented x3, no fevers, no chills HEENT-head atraumatic and normocephalic, pupils equal and reactive to light, extraocular muscles intact Neck-no lymphadenopathy or thyromegaly, trachea midline Chest-scattered bilateral rhonchi. Bibasilar dullness and bibasilar inspiratory rales. No wheezing Cardiac-regular rate and rhythm, normal S1 and S2 Abdomen-normal bowel sounds, nontender, no hepatosplenomegaly Extremities-no cyanosis, clubbing. She does have bilateral lower extremity pitting edema below the knees Neuro-cranial nerves II through XII intact, motor and sensory function within normal limits, strength symmetrical , no focal deficits Psych-depressed affect Results & Data Results & Data ([facility]) Vital Signs (Past 12 Hours) Vital Signs Temp Pulse Pulse Resp BP BP Pulse Ox 04/20/22 11:52 37.6 C H 97 H 18 147/84 H 91 04/20/22 09:02 04/20/22 08:14 37.2 C 83 19 150/75 H 92 04/20/22 07:26 81 04/20/22 02:33 37.1 C 80 18 135/71 93 O2 Del Method 04/20/22 11:52 Room Air 04/20/22 09:02 Room Air 04/20/22 08:14 Room Air 04/20/22 07:26 04/20/22 02:33 Room Air PG Care Time/CCT Total # of Minutes Spent Total Time Spent with Patient: Total time spent is greater than 50% in coordination of care (as documented) at patient's floor/unit and/or counseling patient: Coding Level of Care Code 24590 Subseq Hosp Care Lvl 3 Diagnoses Pneumonia J18.9 Elevated troponin R77.8 Venous stasis dermatitis I87.2 Rheumatoid arthritis M06.9 Rheumatoid arthritis location: unspecified site Rheumatoid factor presence: unspecified presence HTN (hypertension) I10 CKD (chronic kidney disease) stage 3, GFR 30-59 ml/min N18.30 Chronic kidney disease stage 3 subtype: unspecified whether 3a or 3b Acute diastolic CHF (congestive heart failure) I50.31 (1) Rheumatoid arthritis Rheumatoid arthritis location: unspecified site Rheumatoid factor presence: unspecified presence Qualified Code(s): M06.9 - Rheumatoid arthritis, unspecified (2) CKD (chronic kidney disease) stage 3, GFR 30-59 ml/min Chronic kidney disease stage 3 subtype: unspecified whether 3a or 3b Qualified Code(s): N18.30 - Chronic kidney disease, stage 3 unspecified
[2022-04-20] MEDS ORDERED: MELATONIN 3 MG TAB PO PRN (20:34)
[2022-04-20] MEDS: POTASSIUM CHLORIDE 10 MEQ TABCR PO SCH (20:41)
[2022-04-20] MEDS: ACETAMINOPHEN 325 MG TAB PO PRN (20:42)
[2022-04-20] MEDS: HYDROXYCHLOROQUINE SULFATE 200 MG TAB PO SCH (20:46)
[2022-04-21] MEDS: ASPIRIN 325 MG ECTAB PO SCH (07:11)
[2022-04-21] MEDS: AZITHROMYCIN 250 MG TAB PO SCH (07:11)
[2022-04-21] MEDS: POTASSIUM CHLORIDE 10 MEQ TABCR PO SCH (07:11)
[2022-04-21] MEDS: predniSONE 5 MG TAB PO SCH (07:11)
[2022-04-21] MEDS: LOSARTAN POTASSIUM 25 MG TAB PO SCH (07:11)
[2022-04-21] MEDS: ENOXAPARIN INJ 40 MG/0.4 ML SYR SQ SCH (07:12)
[2022-04-21] MEDS: predniSONE 2.5 MG TAB PO SCH (07:12)
[2022-04-21 08:19] LABS: Hematocrit (blood only) 35.5 % (34.1-44.9); Hemoglobin 10.9 g/dl (12.0-16.0); Mean Corpuscular Hemoglobin 27.4 pg (25.0-34.0); Mean Corpuscular Hgb Conc 30.7 g/dL (32.0-36.0); Mean Corpuscular Volume 89.2 fL (80.0-100.0); Platelet Count 111 K/uL (130-400); RDW Coefficient of Variation 14.9 % (11.5-14.5); RDW Standard Deviation 48.5 fL (36.4-46.3); Red Blood Count 3.98 M/uL (3.93-5.22); White Blood Count 6.37 K/ul (4.8-10.8)
[2022-04-21 08:21] LABS: Basophils # (auto) 0.02 K/uL (0-0.2); Basophils % (auto) 0.3 %; Eosinophils # (auto) 0.32 K/uL (0-0.50); Immature Granulocytes # (auto) 0.02 K/uL (0.00-0.02); Immature Granulocytes % (auto) 0.3 %; Lymphocytes # (auto) 0.54 K/uL (1.2-3.4); Lymphocytes % (auto) 8.5 %; Monocytes # (auto) 0.53 K/uL (0.24-0.82); Monocytes % (auto) 8.3 %; Neutrophils # (auto) 4.94 K/uL (1.4-6.5); Neutrophils % (auto) 77.6 %; Rouleaux 1+
[2022-04-21 08:26] LABS: BUN Creatinine Ratio 14.9 (10-20); Calcium 8.6 mg/dl (8.5-10.1); Creatinine Clr Calc Pharmacy 36.3 ml/min; Est GFR (African American) 37.6 ml/min; Est GFR (Non-African American) 32.4 ml/min; Potassium 3.4 mmol/L (3.5-5.1)
--- NOTE | 2022-04-21 09:13 | Emergency Department Note ---
Impression & Plan Enterovirus infection ED Provider Note CHIEF COMPLAINT: Weakness, vomiting HISTORY OF PRESENT ILLNESS: This 76-year-old female patient presents to the emergency department presents emergency department with complaints of falls over the last 2 days because of increased weakness. This is apparently not the patient's baseline. Patient developed flulike symptoms 2 days ago as well as urinary incontinence which is new as well. Patient also has not been able to tolerate food or fluids. She denies any fevers or blood in the emesis or stools. She denies any diarrhea. REVIEW OF SYSTEMS: See above ALLERGIES: see below MEDICATIONS: see below PMH: see below SOCIAL HISTORY: see below DDx: Gastroenteritis, food borne illness, infections, appendicitis, diverticulitis, inflammatory bowel disease, obstruction, GI bleed, biliary pathology, volvulus, as well as other pathologies. PHYSICAL EXAM: Vital signs reviewed. General: Somewhat ill-appearing 76-year-old female, no significant distress. HEENT: No scleral icterus, PERRLA, neck supple. Dry mucous membranes Cardiovascular: Regular rate and rhythm, no extra sounds. Pulmonary: Clear to auscultation bilaterally, normal work of breathing. Abdomen: Soft, nontender, nondistended, positive bowel sounds. Musculoskeletal: Atraumatic, no peripheral edema. Neurologic: Patient awake alert and oriented x 3, speech is clear Skin: Warm, dry, venous stasis of the bilateral lower extremities with weeping right lower extremity ulceration EMERGENCY DEPARTMENT COURSE/MDM: This patient was evaluated and appeared to be in no significant distress. External records were reviewed. Patient was hydrated with normal saline solution. EKG was performed and reveals no evidence of acute ischemia. She was placed on boiling house hand. Patient was given 2 g of IV ceftriaxone for presumed UTI initially. Laboratory work reveals no signific ant abnormality with the exception of a positive enterovirus on bio fire. Case was discussed with Dr. Escamilla of the hospitalist service who will evaluate the patient for admission and further management due to significant weakness, vomiting and falls. MONITORING: An order for cardiac monitoring was placed and the patient is noted to be in a normal sinus rhythm at 90 bpm beats per minute. RADIOLOGY: See below EKG: To my interpretation reveal normal sinus rhythm 93 bpm with a left axis deviation, LVH, QTC of 462. No PVC, no PAC. No significant ST changes DISPOSITION: Admission Past Med/Surg History Medical History Anemia Bacterial infection due to Pseudomonas Bacterial infection due to Serratia Cancer MELANOMA Cellulitis BILATERAL LEGS AND FEET, INPATIENT [facility] (JULY 2018) Cellulitis of left thigh Cellulitis of left thigh Chronic steroid use CKD (chronic kidney disease) stage 3, GFR 30-59 ml/min Folate deficiency Fracture of sacrum BILATERAL. ~2016, PHYSICAL THERAPY. USES WALKER HLD (hyperlipidemia) HTN (hypertension) No blood products PER PATIENT REQUEST Obesity Pneumonia AUGUST 2017 Pressure ulcer of upper thigh Rheumatoid arthritis Septic shock Surgical History History of cataract surgery BILATERAL History of colonoscopy History of surgical removal of skin lesion BACK History of total hip replacement RIGHT S/P debridement (11/29/19) Right Thigh wound debridement, sharp, greater than [address] Peter 11/29/2019 S/P revision of total hip RIGHT S/P JUAN-BSO Total knee replacement status BILATERAL Family History Father Non Hodgkin's lymphoma Mother Coronary heart disease Social History Smoking Status: Never smoker Second Hand Exposure: No; Hx Alcohol Use: No Hx Substance Use: No Preferred Language: Maltese Communication Ability: Effective Manager Wound Required: No Beliefs That Will Affect Care: None marital status: Single Current Living Situation: Alone Current Living Situation Comment: lives at home, brother and niece help when needed. 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 Feels Safe at Home: Yes Assistive Devices: Walker Allergies Allergies Allergy/AdvReac Type Severity Reaction Status Date / Time cefadroxil Allergy Intermediate Rash Verified 04/07/22 10:22 Sulfa (Sulfonamide Allergy Intermediate RASH Verified 04/07/22 10:22 Antibiotics) cefepime Allergy Unknown Unknown Verified 04/07/22 10:22 cephalexin [From Keflex] Allergy Unknown Unknown Verified 04/07/22 10:22 levofloxacin [From Levaquin] AdvReac Intermediate rash Verified 04/07/22 10:22 oxycodone AdvReac Mild NAUSEA Verified 04/07/22 10:22 Home Meds Home Medications Medication Instructions Recorded Confirmed leflunomide 10 mg tablet 10 mg PO DAILY 03/23/21 12/30/22 prednisone 5 mg tablet 5 mg PO QAM 11/16/20 04/18/22 aspirin 325 mg tablet,delayed 325 mg PO DAILY 08/26/21 04/18/22 release hydroxychloroquine 200 mg tablet 400 mg PO HS 04/18/22 04/18/22 losartan 25 mg tablet 25 mg PO DAILY 04/18/22 04/18/22 prednisone 2.5 mg tablet 2.5 mg PO QAM 04/18/22 04/18/22 Results & Data (ED) Home Medications Current Medication List: was personally reviewed by me Laboratory Data Attestation: I reviewed the patient's lab results. Result diagrams: 04/22/22 07:49 04/24/22 06:03 Lab Results 04/18/22 04/18/22 04/18/22 Range/Units 12:20 12:20 12:20 WBC Cancelled RBC Cancelled Hgb Cancelled Hct Cancelled MCV Cancelled MCH Cancelled MCHC Cancelled RDW Std Deviation Cancelled RDW Coeff of Saadia Cancelled Plt Count Cancelled MPV Cancelled Immature Gran % (Auto) Cancelled Neut % (Auto) Cancelled Lymph % (Auto) Cancelled [place] % (Auto) Cancelled Eos % (Auto) Cancelled Baso % (Auto) Cancelled Neut # (Auto) Cancelled Lymph # (Auto) Cancelled [place] # (Auto) Cancelled Eos # (Auto) Cancelled Baso # (Auto) Cancelled Immature Gran # (Auto) Cancelled Absolute Nucleated RBC Cancelled Nucleated RBC % (auto) Cancelled Neutrophils % (Manual) Cancelled Band Neutrophils % Cancelled Lymphocytes % (Manual) Cancelled Prolymphocyte % Cancelled Reactive Lymphs % (Man) Cancelled Monocytes % (Manual) Cancelled Eosinophils % (Manual) Cancelled Basophils % (Manual) Cancelled Metamyelocytes % (Man) Cancelled Myelocytes % (Man) Cancelled Promyelocytes % (Man) Cancelled Blast Cells % (Manual) Cancelled Plasma Cell % (Manual) Cancelled Other Cells % Cancelled Nucleated RBC % Cancelled Neutrophils # (Manual) Cancelled Band Neutrophils # Cancelled Total Absolute Neuts Cancelled Lymphocytes # (Manual) Cancelled Prolymphocyte # Cancelled Reactive Lymphs # Cancelled Total Abs Lymphocytes Cancelled Monocytes # (Manual) Cancelled Eosinophils # (Manual) Cancelled Basophils # (Manual) Cancelled Metamyelocytes # (Man) Cancelled Myelocytes # (Manual) Cancelled Promyelocytes # (Man) Cancelled Blast Cells # (Man) Cancelled Plasma Cell # (Manual) Cancelled Other Cells # Cancelled Nucleated RBCs # (Man) Cancelled Hypersegmented Neuts Cancelled Hyposegmented Neuts Cancelled Hypogranular Neuts Cancelled Large Granular Lymphs Cancelled # Lrg Granular Lymphs Cancelled Hairy Cells Cancelled Smudge Cells Cancelled Toxic Granulation Cancelled Toxic Vacuolation Cancelled Dohle Bodies Cancelled Yojana Rods Cancelled Platelet Estimate Cancelled Hypogranular Platelets Cancelled Clumped Platelets Cancelled Giant Platelets Cancelled Platelet Satelliting Cancelled RBC Morphology Cancelled Polychromasia Cancelled Hypochromasia Cancelled Poikilocytosis Cancelled Basophilic Stippling Cancelled Anisocytosis Cancelled Microcytosis Cancelled Macrocytosis Cancelled Spherocytes Cancelled Pappenheimer Bodies Cancelled Sickle Cells Cancelled Target Cells Cancelled Tear Drop Cells Cancelled Ovalocytes Cancelled Stomatocytes Cancelled Cobb-Uk[place] Bodies Cancelled Echinocytes Cancelled Acanthocytes (Spur) Cancelled Rouleaux Cancelled RBC Agglutinates Cancelled Schistocytes Cancelled Sezary Cell Cancelled Sodium 143 (136-145) mmol/L Potassium 3.5 (3.5-5.1) mmol/L Chloride 109 H (98-107) mmol/L Carbon Dioxide 25 (21-32) mmol/L Anion Gap 9 (3-11) BUN 20 (6-23) mg/dl Creatinine 1.14 (0.6-1.2) mg/dl Est Cr Clr Drug Dosing 49.0 ml/min Est GFR ( Amer) 54.1 ml/min Est GFR (Non-Af Amer) 46.7 ml/min BUN/Creatinine Ratio 17.5 (10-20) Glucose 72 (70-99(Fasting)) mg/dl Lactate (0.4-2.0) mmol/L Calcium 9.3 (8.5-10.1) mg/dl Magnesium 1.7 (1.7-2.4) mg/dl Total Bilirubin 1.1 H (0.2-1.0) mg/dl Direct Bilirubin 0.3 H (0-0.2) mg/dl AST 21 (13-39) U/L ALT 19 (7-52) U/L Alkaline Phosphatase 120 H (34-104) U/L Troponin I High Sens 291.7 H* (0-14) pg/ml Total Protein 5.7 L (6.0-8.3) gm/dl Albumin 3.3 L (3.4-5.0) gm/dl Procalcitonin 2.05 H (0-0.5) ng/ml Urine Color Urine Appearance (Clear) Urine pH (4.5-7.5) Ur Specific Randolph (1.000-1.030) Urine Protein (Negative) Urine Glucose (UA) (Negative) Urine Ketones (Negative) Urine Blood (Negative) Urine Nitrite (Negative) Urine Bilirubin (Negative) Urine Urobilinogen (Negative) Ur Leukocyte Esterase (Negative) Urine WBC (Auto) (0-5) /hpf Urine RBC (Auto) (0-4) /hpf U Hyaline Cast (Auto) (0-5) /lpf U Epithel Cells (Auto) (0-5) /lpf Urine Bacteria (Auto) (Negative) Adenovirus (PCR) (NotDetected) B. pertussis DNA (PCR) (NotDetected) B.parapertussis DNA PCR (NotDetected) C. pneumoniae DNA (PCR) (NotDetected) Coronavirus OC43 (PCR) (NotDetected) Coronavirus HKU1 (PCR) (NotDetected) Coronavirus 229E (PCR) (NotDetected) SARS-CoV-2 (PCR) (NotDetected) Coronavirus NL63 (PCR) (NotDetected) Human Metapneumovir PCR (NotDetected) Influenza Type A (PCR) (NotDetected) Influenza Type B (PCR) (NotDetected) M. pneumoniae (PCR) (NotDetected) Parainfluenza 1 (PCR) (NotDetected) Parainfluenza 2 (PCR) (NotDetected) Parainfluenza 3 (PCR) (NotDetected) Parainfluenza 4 (PCR) (NotDetected) RSV (PCR) (NotDetected) Entero/Rhino (PCR) (NotDetected) Blood Parasites ID Cancelled 1204/18/22 04/18/22 Range/Units 12:45 14:12 14:18 WBC 5.58 RBC 3.87 L Hgb 10.8 L Hct 33.7 L MCV 87.1 MCH 27.9 MCHC 32.0 RDW Std Deviation 47.8 H RDW Coeff of Saadia 14.9 H Plt Count 105 L MPV 9.9 Immature Gran % (Auto) 0.2 Neut % (Auto) 81.7 Lymph % (Auto) 7.2 [place] % (Auto) 10.0 Eos % (Auto) 0.5 Baso % (Auto) 0.4 Neut # (Auto) 4.56 Lymph # (Auto) 0.[address] # (Auto) 0.56 Eos # (Auto) 0.03 Baso # (Auto) 0.02 Immature Gran # (Auto) 0.01 Absolute Nucleated RBC Nucleated RBC % (auto) Neutrophils % (Manual) Band Neutrophils % Lymphocytes % (Manual) Prolymphocyte % Reactive Lymphs % (Man) Monocytes % (Manual) Eosinophils % (Manual) Basophils % (Manual) Metamyelocytes % (Man) Myelocytes % (Man) Promyelocytes % (Man) Blast Cells % (Manual) Plasma Cell % (Manual) Other Cells % Nucleated RBC % Neutrophils # (Manual) Band Neutrophils # Total Absolute Neuts Lymphocytes # (Manual) Prolymphocyte # Reactive Lymphs # Total Abs Lymphocytes Monocytes # (Manual) Eosinophils # (Manual) Basophils # (Manual) Metamyelocytes # (Man) Myelocytes # (Manual) Promyelocytes # (Man) Blast Cells # (Man) Plasma Cell # (Manual) Other Cells # Nucleated RBCs # (Man) Hypersegmented Neuts Hyposegmented Neuts Hypogranular Neuts Large Granular Lymphs # Lrg Granular Lymphs Hairy Cells Smudge Cells Toxic Granulation Toxic Vacuolation 2+ Dohle Bodies 1+ Yojana Rods Platelet Estimate Hypogranular Platelets Clumped Platelets Giant Platelets Platelet Satelliting RBC Morphology Polychromasia Hypochromasia Poikilocytosis Basophilic Stippling Anisocytosis Microcytosis Macrocytosis Spherocytes Pappenheimer Bodies Sickle Cells Target Cells Tear Drop Cells Ovalocytes Stomatocytes Cobb-Ukiah Bodies Echinocytes Acanthocytes (Spur) Rouleaux RBC Agglutinates Schistocytes Sezary Cell Sodium (136-145) mmol/L Potassium (3.5-5.1) mmol/L Chloride (98-107) mmol/L Carbon Dioxide (21-32) mmol/L Anion Gap (3-11) BUN (6-23) mg/dl Creatinine (0.6-1.2) mg/dl Est Cr Clr Drug Dosing ml/min Est GFR ( Amer) ml/min Est GFR (Non-Af Amer) ml/min BUN/Creatinine Ratio (10-20) Glucose (70-99(Fasting)) mg/dl Lactate 1.0 (0.4-2.0) mmol/L Calcium (8.5-10.1) mg/dl Magnesium (1.7-2.4) mg/dl Total Bilirubin (0.2-1.0) mg/dl Direct Bilirubin (0-0.2) mg/dl AST (13-39) U/L ALT (7-52) U/L Alkaline Phosphatase (34-104) U/L Troponin I High Sens (0-14) pg/ml Total Protein (6.0-8.3) gm/dl Albumin (3.4-5.0) gm/dl Procalcitonin (0-0.5) ng/ml Urine Color Yellow Urine Appearance Clear (Clear) Urine pH 6.0 (4.5-7.5) Ur Specific Randolph 1.017 (1.000-1.030) Urine Protein 1+ H (Negative) Urine Glucose (UA) Negative (Negative) Urine Ketones 1+ H (Negative) Urine Blood Negative (Negative) Urine Nitrite Negative (Negative) Urine Bilirubin Negative (Negative) Urine Urobilinogen Negative (Negative) Ur Leukocyte Esterase Negative (Negative) Urine WBC (Auto) 1-5 (0-5) /hpf Urine RBC (Auto) 0-4 (0-4) /hpf U Hyaline Cast (Auto) 1-5 (0-5) /lpf U Epithel Cells (Auto) 10-20 H (0-5) /lpf Urine Bacteria (Auto) Negative (Negative) Adenovirus (PCR) (NotDetected) B. pertussis DNA (PCR) (NotDetected) B.parapertussis DNA PCR (NotDetected) C. pneumoniae DNA (PCR) (NotDetected) Coronavirus OC43 (PCR) (NotDetected) Coronavirus HKU1 (PCR) (NotDetected) Coronavirus 229E (PCR) (NotDetected) SARS-CoV-2 (PCR) (NotDetected) Coronavirus NL63 (PCR) (NotDetected) Human Metapneumovir PCR (NotDetected) Influenza Type A (PCR) (NotDetected) Influenza Type B (PCR) (NotDetected) M. pneumoniae (PCR) (NotDetected) Parainfluenza 1 (PCR) (NotDetected) Parainfluenza 2 (PCR) (NotDetected) Parainfluenza 3 (PCR) (NotDetected) Parainfluenza 4 (PCR) (NotDetected) RSV (PCR) (NotDetected) Entero/Rhino (PCR) (NotDetected) Blood Parasites ID 04/18/22 Range/Units 15:16 WBC RBC Hgb Hct MCV MCH MCHC RDW Std Deviation RDW Coeff of Saadia Plt Count MPV Immature Gran % (Auto) Neut % (Auto) Lymph % (Auto) [place] % (Auto) Eos % (Auto) Baso % (Auto) Neut # (Auto) Lymph # (Auto) [place] # (Auto) Eos # (Auto) Baso # (Auto) Immature Gran # (Auto) Absolute Nucleated RBC Nucleated RBC % (auto) Neutrophils % (Manual) Band Neutrophils % Lymphocytes % (Manual) Prolymphocyte % Reactive Lymphs % (Man) Monocytes % (Manual) Eosinophils % (Manual) Basophils % (Manual) Metamyelocytes % (Man) Myelocytes % (Man) Promyelocytes % (Man) Blast Cells % (Manual) Plasma Cell % (Manual) Other Cells % Nucleated RBC % Neutrophils # (Manual) Band Neutrophils # Total Absolute Neuts Lymphocytes # (Manual) Prolymphocyte # Reactive Lymphs # Total Abs Lymphocytes Monocytes # (Manual) Eosinophils # (Manual) Basophils # (Manual) Metamyelocytes # (Man) Myelocytes # (Manual) Promyelocytes # (Man) Blast Cells # (Man) Plasma Cell # (Manual) Other Cells # Nucleated RBCs # (Man) Hypersegmented Neuts Hyposegmented Neuts Hypogranular Neuts Large Granular Lymphs # Lrg Granular Lymphs Hairy Cells Smudge Cells Toxic Granulation Toxic Vacuolation Dohle Bodies Yojana Rods Platelet Estimate Hypogranular Platelets Clumped Platelets Giant Platelets Platelet Satelliting RBC Morphology Polychromasia Hypochromasia Poikilocytosis Basophilic Stippling Anisocytosis Microcytosis Macrocytosis Spherocytes Pappenheimer Bodies Sickle Cells Target Cells Tear Drop Cells Ovalocytes Stomatocytes Cobb-Ukiah Bodies Echinocytes Acanthocytes (Spur) Rouleaux RBC Agglutinates Schistocytes Sezary Cell Sodium (136-145) mmol/L Potassium (3.5-5.1) mmol/L Chloride (98-107) mmol/L Carbon Dioxide (21-32) mmol/L Anion Gap (3-11) BUN (6-23) mg/dl Creatinine (0.6-1.2) mg/dl Est Cr Clr Drug Dosing ml/min Est GFR ( Amer) ml/min Est GFR (Non-Af Amer) ml/min BUN/Creatinine Ratio (10-20) Glucose (70-99(Fasting)) mg/dl Lactate (0.4-2.0) mmol/L Calcium (8.5-10.1) mg/dl Magnesium (1.7-2.4) mg/dl Total Bilirubin (0.2-1.0) mg/dl Direct Bilirubin (0-0.2) mg/dl AST (13-39) U/L ALT (7-52) U/L Alkaline Phosphatase (34-104) U/L Troponin I High Sens (0-14) pg/ml Total Protein (6.0-8.3) gm/dl Albumin (3.4-5.0) gm/dl Procalcitonin (0-0.5) ng/ml Urine Color Urine Appearance (Clear) Urine pH (4.5-7.5) Ur Specific Randolph (1.000-1.030) Urine Protein (Negative) Urine Glucose (UA) (Negative) Urine Ketones (Negative) Urine Blood (Negative) Urine Nitrite (Negative) Urine Bilirubin (Negative) Urine Urobilinogen (Negative) Ur Leukocyte Esterase (Negative) Urine WBC (Auto) (0-5) /hpf Urine RBC (Auto) (0-4) /hpf U Hyaline Cast (Auto) (0-5) /lpf U Epithel Cells (Auto) (0-5) /lpf Urine Bacteria (Auto) (Negative) Adenovirus (PCR) Not Detected (NotDetected) B. pertussis DNA (PCR) Not Detected (NotDetected) B.parapertussis DNA PCR Not Detected (NotDetected) C. pneumoniae DNA (PCR) Not Detected (NotDetected) Coronavirus OC43 (PCR) Not Detected (NotDetected) Coronavirus HKU1 (PCR) Not Detected (NotDetected) Coronavirus 229E (PCR) Not Detected (NotDetected) SARS-CoV-2 (PCR) Not Detected (NotDetected) Coronavirus NL63 (PCR) Not Detected (NotDetected) Human Metapneumovir PCR Not Detected (NotDetected) Influenza Type A (PCR) Not Detected (NotDetected) Influenza Type B (PCR) Not Detected (NotDetected) M. pneumoniae (PCR) Not Detected (NotDetected) Parainfluenza 1 (PCR) Not Detected (NotDetected) Parainfluenza 2 (PCR) Not Detected (NotDetected) Parainfluenza 3 (PCR) Not Detected (NotDetected) Parainfluenza 4 (PCR) Not Detected (NotDetected) RSV (PCR) Not Detected (NotDetected) Entero/Rhino (PCR) DETECTED A* (NotDetected) Blood Parasites ID Administered Medications Acetaminophen (Acetaminophen 325 Mg Tab) 650 mg PO Q4H PRN PRN Reason: pain/fever Stop: 05/18/22 17:08 Last Admin: 04/22/22 04:36 Dose: 650 mg Documented By: Admin: 04/22/22 00:18 Dose: 650 mg Documented By: Admin: 04/20/22 20:42 Dose: 650 mg Documented By: KING Aspirin (Aspirin 325 Mg Ectab) 325 mg PO DAILY [facility] Stop: 05/19/22 08:59 Last Admin: 04/24/22 07:34 Dose: 325 mg Documented By: [id number] Admin: 04/23/22 08:23 Dose: 325 mg Documented By: Admin: 04/22/22 08:11 Dose: 325 mg Documented By: Admin: 04/21/22 07:11 Dose: 325 mg Documented By: Admin: 04/20/22 08:15 Dose: 325 mg Documented By: Admin: 04/19/22 10:12 Dose: 325 mg Documented By: RU Enoxaparin Sodium (Enoxaparin Inj 30 Mg/0.3 Ml Syr) 30 mg SQ QAM [facility] Stop: 05/24/22 08:59 Last Admin: 04/24/22 07:34 Dose: 30 mg Documented By: [id number] Furosemide (Furosemide 40 Mg Tab) 40 mg PO QAM [place] Stop: 05/24/22 08:59 Last Admin: 04/24/22 07:33 Dose: 40 mg Documented By: [id number] Hydroxychloroquine Sulfate (Hydroxychloroquine Sulfate 200 Mg Tab) 400 mg PO HS [facility] Stop: 05/18/22 20:59 Last Admin: 04/23/22 20:20 Dose: 400 mg Documented By: Admin: 04/22/22 20:28 Dose: 400 mg Documented By: Admin: 04/21/22 20:00 Dose: 400 mg Documented By: Admin: 04/20/22 20:46 Dose: 400 mg Documented By: Admin: 04/19/22 21:43 Dose: 400 mg Documented By: Admin: 04/18/22 23:45 Dose: 400 mg Documented By: KING Leflunomide (Leflunomide 10 Mg Tab) 10 mg PO DAILY [facility] Stop: 05/21/22 13:44 Last Admin: 04/24/22 08:41 Dose: 10 mg Documented By: [id number] Admin: 04/23/22 09:49 Dose: 10 mg Documented By: Admin: 04/22/22 08:12 Dose: 10 mg Documented By: Admin: 04/21/22 15:48 Dose: 10 mg Documented By: [email or web address] Losartan Potassium (Losartan Potassium 25 Mg Tab) 25 mg PO DAILY [facility] Stop: 05/19/22 08:59 Last Admin: 04/24/22 07:34 Dose: 25 mg Documented By: [id number] Admin: 04/23/22 08:23 Dose: 25 mg Documented By: Admin: 04/22/22 08:11 Dose: 25 mg Documented By: Admin: 04/21/22 07:11 Dose: 25 mg Documented By: Admin: 04/20/22 08:15 Dose: 25 mg Documented By: Admin: 04/19/22 10:12 Dose: 25 mg Documented By: RU Melatonin (Melatonin 3 Mg Tab) 3 mg PO HS PRN PRN Reason: Sleep Stop: 05/20/22 20:33 Last Admin: 04/20/22 20:42 Dose: 3 mg Documented By: KING Miconazole Nitrate (Miconazole Nitrate Powder 43 Gm) 1 appln EXT PRN PRN PRN Reason: Affected Skin Folds Stop: 05/22/22 02:58 Last Admin: 04/22/22 04:00 Dose: 1 appln Documented By: ITA Potassium Chloride (Potassium Chloride Crtab 20 Meq Tabcr) 20 meq PO [id number] [facility] Stop: 05/21/22 09:44 Last Admin: 04/24/22 07:33 Dose: 20 meq Documented By: [id number] Admin: 04/23/22 17:31 Dose: 20 meq Documented By: Admin: 04/23/22 08:23 Dose: 20 meq Documented By: Admin: 04/22/22 16:48 Dose: 20 meq Documented By: Admin: 04/22/22 08:10 Dose: 20 meq Documented By: Admin: 04/21/22 15:58 Dose: 20 meq Documented By: Admin: 04/21/22 10:06 Dose: 20 meq Documented By: WANDA Prednisone (Pred[facility]one 2.5 Mg Tab) [facility] [place] Stop: 05/19/22 08:59 Last Admin: 04/24/22 07:35 Dose: 2.5 mg Documented By: [id number] Admin: 04/23/22 08:23 Dose: 2.5 mg Documented By: Admin: 04/22/22 08:11 Dose: 2.5 mg Documented By: Admin: 04/21/22 07:12 Dose: 2.5 mg Documented By: Admin: 04/20/22 08:15 Dose: 2.5 mg Documented By: Admin: 04/19/22 10:12 Dose: 2.5 mg Documented By: RU Prednisone (Prednisone 5 Mg Tab) [facility] [place] Stop: 05/19/22 08:59 Last Admin: 04/24/22 07:35 Dose: 5 mg Documented By: [id number] Admin: 04/23/22 08:23 Dose: 5 mg Documented By: Admin: 04/22/22 08:12 Dose: 5 mg Documented By: Admin: 04/21/22 07:11 Dose: 5 mg Documented By: Admin: 04/20/22 08:15 Dose: 5 mg Documented By: Admin: 04/19/22 10:12 Dose: 5 mg Documented By: RU Discontinued Medications Aspirin (Aspirin Chew 324 Mg) 324 mg PO NOW STA Stop: 04/18/22 14:34 Last Admin: 04/18/22 14:59 Dose: 324 mg Documented By: KING(2) Azithromycin (Azithromycin 250 Mg Tab) [facility] [place] Stop: 04/27/22 09:29 Last Admin: 04/23/22 08:23 Dose: 500 mg Documented By: Admin: 04/22/22 08:11 Dose: 500 mg Documented By: Admin: 04/21/22 07:11 Dose: 500 mg Documented By: Admin: 04/20/22 10:56 Dose: 500 mg Documented By: WANDA Enoxaparin Sodium (Enoxaparin Inj 40 Mg/0.4 Ml Syr) [facility] [place] Stop: 05/19/22 08:59 Last Admin: 04/23/22 08:23 Dose: 40 mg Documented By: Admin: 04/22/22 08:10 Dose: 40 mg Documented By: Admin: 04/21/22 07:12 Dose: 40 mg Documented By: Admin: 04/20/22 08:15 Dose: 40 mg Documented By: Admin: 04/19/22 10:12 Dose: 40 mg Documented By: RU Furosemide (Furosemide 40 Mg/4 Ml Vial) 40 mg IV Q12H [facility] Stop: 05/20/22 10:59 Last Admin: 04/23/22 10:34 Dose: 40 mg Documented By: Admin: 04/22/22 23:43 Dose: 40 mg Documented By: Admin: 04/22/22 12:15 Dose: 40 mg Documented By: Admin: 04/22/22 00:14 Dose: 40 mg Documented By: Admin: 04/21/22 10:06 Dose: 40 mg Documented By: Admin: 04/20/22 22:42 Dose: 40 mg Documented By: Admin: 04/20/22 12:30 Dose: 40 mg Documented By: WANDA Sodium Chloride (Nss 1000ml) 1,000 mls @ 125 mls/hr IV .Q8H [facility] Stop: 05/18/22 11:59 Last Infusion: 04/18/22 17:14 Dose: 0 mls/hr Documented By: KING(2) Infusion: 04/18/22 14:48 Dose: 0 mls/hr Documented By: KING(2) Admin: 04/18/22 14:02 Dose: 125 mls/hr Documented By: MATI Sodium Chloride (Nss) 250 mls @ 999 mls/hr IV .Q16M ONE Stop: 04/18/22 12:08 Last Infusion: 04/18/22 14:01 Dose: 0 mls/hr Documented By: Admin: 04/18/22 12:54 Dose: 999 mls/hr Documented By: MATI Ceftriaxone Sodium (Rocephin) 2,000 mg in 70 mls @ 140 mls/hr IV NOW ONE Stop: 04/18/22 13:29 Last Infusion: 04/18/22 14:00 Dose: 0 mls/hr Documented By: Admin: 04/18/22 13:26 Dose: 140 mls/hr Documented By: MATI Sodium Chloride (Nss 1000ml) 1,000 mls @ 80 mls/hr IV .[id number] [place] Stop: 04/19/22 20:14 Last Infusion: 04/19/22 10:32 Dose: 0 mls/hr Documented By: Infusion: 04/19/22 10:15 Dose: 0 mls/hr Documented By: Admin: 04/19/22 06:35 Dose: 80 mls/hr Documented By: Infusion: 04/19/22 06:35 Dose: 80 mls/hr Documented By: Admin: 04/18/22 19:00 Dose: 80 mls/hr Documented By: KAREN Vancomycin HCl 2,000 mg/ (Sodium Chloride) 540 mls @ 200 mls/hr IV NOW ONE; Protocol Stop: 04/18/22 21:41 Last Infusion: 04/18/22 23:00 Dose: 0 mls/hr Documented By: Admin: 04/18/22 19:30 Dose: 200 mls/hr Documented By: KAREN Vancomycin HCl 750 mg/ Sodium (Chloride) 265 mls @ 200 mls/hr IV Q12H [facility]; Protocol Stop: 04/26/22 06:59 Last Infusion: 04/20/22 07:20 Dose: 0 mls/hr Documented By: Admin: 04/20/22 05:59 Dose: 200 mls/hr Documented By: Infusion: 04/19/22 21:42 Dose: 0 mls/hr Documented By: Admin: 04/19/22 19:45 Dose: 200 mls/hr Documented By: Infusion: 04/19/22 08:29 Dose: 0 mls/hr Documented By: Admin: 04/19/22 06:35 Dose: 200 mls/hr Documented By: KING Cefepime HCl 2,000 mg/ Syringe 20 mls @ 5 mls/min IV Q12H [facility]; Protocol Stop: 04/25/22 19:59 Last Admin: 04/20/22 08:14 Dose: 5 mls/min Documented By: Admin: 04/19/22 19:45 Dose: 5 mls/min Documented By: Admin: 04/18/22 20:33 Dose: 5 mls/min Documented By: Admin: 04/18/22 20:26 Dose: 5 mls/min Documented By: KAREN Potassium Chloride/Dextrose/Sod Cl (D5nss + 20meq Kcl) 20 meq in 1,000 mls @ 50 mls/hr IV .Q20H FRANSISCO; Protocol Stop: 05/19/22 08:59 Last Infusion: 04/20/22 09:48 Dose: 0 mls/hr Documented By: Admin: 04/20/22 05:59 Dose: 50 mls/hr Documented By: Infusion: 04/20/22 05:59 Dose: 50 mls/hr Documented By: Infusion: 04/19/22 21:42 Dose: 50 mls/hr Documented By: Infusion: 04/19/22 19:45 Dose: 0 mls/hr Documented By: Admin: 04/19/22 10:28 Dose: 50 mls/hr Documented By: RU Miscellaneous (Leflunomide 10 Mg Tablet - Order Awaiting Action) 1 each N/A QS [facility] Stop: 05/19/22 00:00 Last Admin: 04/21/22 07:10 Dose: Not Given Documented By: Admin: 04/20/22 22:43 Dose: Not Given Documented By: Admin: 04/20/22 15:05 Dose: Not Given Documented By: Admin: 04/20/22 08:14 Dose: Not Given Documented By: Admin: 04/19/22 21:48 Dose: Not Given Documented By: Admin: 04/19/22 13:56 Dose: Not Given Documented By: Admin: 04/19/22 09:56 Dose: Not Given Documented By: Admin: 04/18/22 23:46 Dose: Not Given Documented By: KING Potassium Chloride (Potassium Chloride 10 Meq Tabcr) 10 meq PO NOW STA Stop: 04/20/22 12:30 Last Admin: 04/20/22 12:50 Dose: 10 meq Documented By: WANDA Potassium Chloride (Potassium Chloride 10 Meq Tabcr) 10 meq PO BID FRANSISCO Stop: 05/20/22 20:59 Last Admin: 04/21/22 07:11 Dose: 10 meq Documented By: Admin: 04/20/22 20:41 Dose: 10 meq Documented By: KING Imaging Data Radiologist's Impression: Chest X-Ray 04/18/22 11:53 SINGLE VIEW CHEST CLINICAL HISTORY: Sepsis. FINDINGS: An AP, portable, upright chest radiograph is compared to study dated 12/03/2020. The examination is degraded by portable technique and patient rotation. The heart is enlarged noting atherosclerotic calcification of the thoracic aorta. There is pulmonary vascular congestion. Asymmetric bilateral airspace opacities identify, greatest in the left midlung. No large pleural effusion or pneumothorax is seen. The skeletal structures are osteopenic. The bony thorax is grossly intact. Arthritic change is seen in the shoulders. IMPRESSION: 1. Cardiomegaly with pulmonary vascular congestion. 2. There are asymmetric bilateral airspace opacities. This could represent pulmonary edema and/or pneumonia. Clinical correlation will be required and radiographic follow-up to resolution is recommended. ACT 112: Negative or not required by law. Electronically signed by: Jf Bronson M.D. 04/18/2022 12:[address] 04/18/22 12:[address] DOSE: 3070.74 mGy.cm HISTORY: falls, weakness TECHNIQUE: Multiaxial CT images of the head were performed without the use of intravenous contrast. Automated exposure control was utilized for this study. A dose lowering technique was utilized adhering to the principles of ALARA. Comparison: None. Findings: Motion artifact. Mild mucosal thickening within the paranasal sinuses. Trace effusion within the left mastoid air cells. The right mastoid air cells are clear. The calvarium and skull base are intact. There is no mass, hematoma, midline shift, acute infarct. White matter hypodensity is nonspecific but suggestive of microvascular ischemic change. The ventricles and sulci demonstrate mild age-related involutional changes. Impression: Motion artifact. No definite acute intracranial abnormality. ACT 112: Negative or not required by law. Electronically signed by: Grabiel Varela M.D. 04/18/2022 1:30 PM Blood Pressure Blood Pressure Findings: Normal blood pressure Blood Pressure Disposition: did not require urgent referral Discharge Plan Visit Data Chief Complaint: Illness Stated Complaint: WEAKNESS, FALLS ED Provider: Lori Goldstein Discharge Problem: Enterovirus infection Patient Disposition: Admitted As Inpatient Discharge Instructions Interventions: ED Discharge Assessment Last Done: 04/18/22 16:19
[2022-04-21] MEDS: POTASSIUM CHLORIDE CRTAB 20 MEQ TABCR PO SCH ×2 (10:06→15:58)
[2022-04-21] MEDS: FUROSEMIDE 40 MG/4 ML VIAL IV SCH (10:06)
--- NOTE | 2022-04-21 15:15 | Hospitalist Progress Note ---
Date of Service April 21, 2022 Assessment & Plan (1) Pneumonia: Plan: CXR with asymmetric bilateral airspace opacities, suspected PNA, on admission. Chest x-ray on April 20 revealed evidence of congestive heart failure. IV antibiotics switched to oral azithromycin. Adequate oxygenation on room air. (2) Elevated troponin: Plan: No acute EKG changes and no regional wall motion abnormality seen on cardiac echo. No evidence of acute coronary syndrome. (3) Venous stasis dermatitis: Plan: History of chronic venous insufficiency with venous stasis ulcers, stasis dermatitis and acquired lymphedema. Patient follows with wound care. Last seen 04/16/22. Note reviewed. She had debridement of wounds of the right first and second toes. Maintain leg wraps. Wound care appreciated - recommended triamcinolone with wrap changes (4) Rheumatoid arthritis: Plan: Patient with RA. Well controlled. Continue Prednisone therapy. Continue Hydroxychloroquine (5) HTN (hypertension): Plan: Chronic. Treated with Losartan (6) CKD (chronic kidney disease) stage 3, GFR 30-59 ml/min: Plan: Monitor intake and output. Serial lab studies. (7) Acute diastolic CHF (congestive heart failure): Plan: Recent cardiac echo reveals normal ejection fraction. She has moderate aortic valve stenosis however. Chest x-ray on April 20 revealed large bilateral pleural effusions with CHF. Intravenous Lasix resulted in brisk diuresis . We will repeat chest x-ray again tomorrow, April 22. Continue to monitor intake and output Plan Disposition to be determined. Await OT and PT assessments. She may require SNF placement at discharge Admission and Anticipated Discharge Date Admission Date: April 18, 2022 Subjective Alert and oriented. No acute distress. She has diuresed nearly 6 L of fluid. Potassium was slightly low as expected and dosage has been uptitrated. We will repeat portable chest x-ray tomorrow. Review of Systems Review of Systems: Constitutional-no fever or chills ENT-no blurred vision, no double vision, no epistaxis, no sore throat Respiratory-no cough, no wheezing. Short of breath with minimal exertion Cardiac-no palpitations, no chest pain, no syncope GI-no nausea, vomiting, diarrhea, melena, hematochezia -no urinary retention, no urinary incontinence, no dysuria, no hematuria Musculoskeletal-no joint pain, no muscle tenderness Skin-no bruising, no rashes, no pruritus Neuro-no isolated weakness, no paresthesia Psych-no depression, no anxiety Physical Exam Physical Exam: General-alert and oriented x3, no fevers, no chills HEENT-head atraumatic and normocephalic, pupils equal and reactive to light, extraocular muscles intact Neck-no lymphadenopathy or thyromegaly, trachea midline Chest-scattered bilateral rhonchi. Bibasilar dullness and bibasilar inspiratory rales. No wheezing Cardiac-regular rate and rhythm, normal S1 and S2 Abdomen-normal bowel sounds, nontender, no hepatosplenomegaly Extremities-no cyanosis, clubbing. She does have bilateral lower extremity pitting edema below the knees Neuro-cranial nerves II through XII intact, motor and sensory function within normal limits, strength symmetrical , no focal deficits Psych-depressed affect Results & Data Results & Data ([facility]) Vital Signs (Past 12 Hours) Vital Signs Temp Pulse Pulse Resp BP Pulse Ox O2 Del Method 04/21/22 11:21 37.0 C 76 19 133/75 91 Room Air 04/21/22 09:05 Room Air 04/21/22 07:07 36.6 C 72 19 138/75 94 Room Air 04/21/22 07:07 70 04/21/22 04:03 36.9 C 68 20 134/63 92 Room Air Laboratory Results 04/21/22 06:53 04/21/22 06:53 PG Care Time/CCT Total # of Minutes Spent Total Time Spent with Patient: Total time spent is greater than 50% in coordination of care (as documented) at patient's floor/unit and/or counseling patient: Coding Level of Care Code 78540 Subseq Hosp Care Lvl 3 Diagnoses Pneumonia J18.9 Elevated troponin R77.8 Venous stasis dermatitis I87.2 Rheumatoid arthritis M06.9 Rheumatoid arthritis location: unspecified site Rheumatoid factor presence: unspecified presence HTN (hypertension) I10 CKD (chronic kidney disease) stage 3, GFR 30-59 ml/min N18.30 Chronic kidney disease stage 3 subtype: unspecified whether 3a or 3b Acute diastolic CHF (congestive heart failure) I50.31 (1) Rheumatoid arthritis Rheumatoid arthritis location: unspecified site Rheumatoid factor presence: unspecified presence Qualified Code(s): M06.9 - Rheumatoid arthritis, unspecified (2) CKD (chronic kidney disease) stage 3, GFR 30-59 ml/min Chronic kidney disease stage 3 subtype: unspecified whether 3a or 3b Qualified Code(s): N18.30 - Chronic kidney disease, stage 3 unspecified
[2022-04-21] MEDS: LEFLUNOMIDE 10 MG TAB PO SCH (15:48)
[2022-04-21] MEDS: HYDROXYCHLOROQUINE SULFATE 200 MG TAB PO SCH (20:00)
[2022-04-22] MEDS: FUROSEMIDE 40 MG/4 ML VIAL IV SCH ×3 (00:14→23:43)
[2022-04-22] MEDS: ACETAMINOPHEN 325 MG TAB PO PRN ×2 (00:18→04:36)
[2022-04-22] MEDS ORDERED: MICONAZOLE NITRATE POWDER 43 GM EXT PRN (02:59)
[2022-04-22] MEDS: POTASSIUM CHLORIDE CRTAB 20 MEQ TABCR PO SCH ×2 (08:10→16:48)
[2022-04-22] MEDS: ENOXAPARIN INJ 40 MG/0.4 ML SYR SQ SCH (08:10)
[2022-04-22] MEDS: ASPIRIN 325 MG ECTAB PO SCH (08:11)
[2022-04-22] MEDS: AZITHROMYCIN 250 MG TAB PO SCH (08:11)
[2022-04-22] MEDS: predniSONE 2.5 MG TAB PO SCH (08:11)
[2022-04-22] MEDS: LOSARTAN POTASSIUM 25 MG TAB PO SCH (08:11)
[2022-04-22] MEDS: predniSONE 5 MG TAB PO SCH (08:12)
[2022-04-22] MEDS: LEFLUNOMIDE 10 MG TAB PO SCH (08:12)
[2022-04-22 08:34] LABS: Basophils # (auto) 0.02 K/uL (0-0.2); Basophils % (auto) 0.3 %; Eosinophils # (auto) 0.33 K/uL (0-0.50); Eosinophils % (auto) 4.7 %; Hematocrit (blood only) 32.3 % (34.1-44.9); Hemoglobin 10.2 g/dl (12.0-16.0); Immature Granulocytes # (auto) 0.05 K/uL (0.00-0.02); Immature Granulocytes % (auto) 0.7 %; Lymphocytes # (auto) 0.71 K/uL (1.2-3.4); Lymphocytes % (auto) 10.2 %; Mean Corpuscular Hemoglobin 27.6 pg (25.0-34.0); Mean Corpuscular Hgb Conc 31.6 g/dL (32.0-36.0); Mean Corpuscular Volume 87.3 fL (80.0-100.0); Mean Platelet Volume 10.3 fL (9.4-12.3); Monocytes # (auto) 0.67 K/uL (0.24-0.82); Monocytes % (auto) 9.6 %; Neutrophils # (auto) 5.21 K/uL (1.4-6.5); Neutrophils % (auto) 74.5 %; Platelet Count 133 K/uL (130-400); RDW Coefficient of Variation 14.6 % (11.5-14.5); White Blood Count 6.99 K/ul (4.8-10.8)
--- NOTE | 2022-04-22 08:38 | XRay Report ---
XR chest 1V portable HISTORY: 76 years-old Female CHF acute shortness of breath COMPARISON: Chest radiograph April 20, 2022 TECHNIQUE: AP view of the chest FINDINGS: Cardiac silhouette is enlarged. Atherosclerosis of the aorta. Pulmonary vascular congestion with inte rstitial coarsening, left greater than right. Bibasilar and left midlung airspace opacities persist. No pneumothorax. Left greater the right layering pleural effusions. Bones appear grossly intact. Heal ed chronic right-sided rib fractures. IMPRESSION: 1. Cardiomegaly with asymmetric pulmonary edema appears stable from prior. 2. Layering pleural effusions with persistent bibasilar consolidation. ACT 112: Negative or not required by law. The above report was generated using voice recognition software. It may contain grammatical, syntax o r spelling errors. Electronically signed by: Sam Zee M.D. 04/22/2022 8:37 AM
[2022-04-22 08:57] LABS: BUN Creatinine Ratio 16.9 (10-20); Calcium 8.4 mg/dl (8.5-10.1); Creatinine Clr Calc Pharmacy 30.1 ml/min; Est GFR (African American) 31.8 ml/min; Est GFR (Non-African American) 27.4 ml/min; Potassium 3.6 mmol/L (3.5-5.1)
--- NOTE | 2022-04-22 12:12 | Hospitalist Progress Note ---
Date of Service April 22, 2022 Assessment & Plan (1) Pneumonia: Plan: CXR with asymmetric bilateral airspace opacities, suspected PNA, on admission. Chest x-ray on April 20 revealed evidence of congestive heart failure. IV antibiotics switched to oral azithromycin. Adequate oxygenation on room air. (2) Elevated troponin: Plan: No acute EKG changes and no regional wall motion abnormality seen on cardiac echo. No evidence of acute coronary syndrome. Most likely due to demand ischemia (3) Venous stasis dermatitis: Plan: History of chronic venous insufficiency with venous stasis ulcers, stasis dermatitis and acquired lymphedema. Patient follows with wound care. Last seen 04/16/22. Note reviewed. She had debridement of wounds of the right first and second toes. Maintain leg wraps. Wound care appreciated - recommended triamcinolone with wrap changes (4) Rheumatoid arthritis: Plan: Patient with RA. Well controlled. Continue Prednisone therapy. Continue Hydroxychloroquine (5) HTN (hypertension): Plan: Chronic. Treated with Losartan (6) CKD (chronic kidney disease) stage 3, GFR 30-59 ml/min: Plan: Monitor intake and output. Serial lab studies. Creatinine is rising to baseline with diuresis (7) Acute diastolic CHF (congestive heart failure): Plan: Present on admission. Recent cardiac echo reveals normal ejection fraction. She has moderate aortic valve stenosis however. Chest x-ray on April 20 revealed large bilateral pleural effusions with CHF. Intravenous Lasix resulted in brisk diuresis . Chest x-ray today, April 22, looks better to my eye. Continue to monitor intake and output. Continue IV Lasix twice daily (8) Elevated troponin level not due myocardial infarction: Plan: No evidence of acute coronary syndrome. Plan Disposition to be determined. Await OT and PT assessments. She may require SNF placement at discharge Admission and Anticipated Discharge Date Admission Date: April 18, 2022 Review of Systems Review of Systems: Constitutional-no fever or chills ENT-no blurred vision, no double vision, no epistaxis, no sore throat Respiratory-no cough, no wheezing. Short of breath with minimal exertion Cardiac-no palpitations, no chest pain, no syncope GI-no nausea, vomiting, diarrhea, melena, hematochezia -no urinary retention, no urinary incontinence, no dysuria, no hematuria Musculoskeletal-no joint pain, no muscle tenderness Skin-no bruising, no rashes, no pruritus Neuro-no isolated weakness, no paresthesia Psych-no depression, no anxiety Physical Exam Physical Exam: General-alert and oriented x3, no fevers, no chills HEENT-head atraumatic and normocephalic, pupils equal and reactive to light, extraocular muscles intact Neck-no lymphadenopathy or thyromegaly, trachea midline Chest-scattered bilateral rhonchi. Bibasilar dullness and bibasilar inspiratory rales. No wheezing Cardiac-regular rate and rhythm, normal S1 and S2 Abdomen-normal bowel sounds, nontender, no hepatosplenomegaly Extremities-no cyanosis, clubbing. She does have bilateral lower extremity pitting edema below the knees Neuro-cranial nerves II through XII intact, motor and sensory function within normal limits, strength symmetrical , no focal deficits Psych-depressed affect Results & Data Results & Data ([facility]) Vital Signs (Past 12 Hours) Vital Signs Temp Pulse Pulse Resp BP Pulse Ox O2 Del Method 04/22/22 11:14 36.6 C 79 18 108/70 91 Nasal Cannula 04/22/22 08:00 Room Air 04/22/22 08:07 37.3 C 72 18 124/61 90 Room Air 04/22/22 07:38 73 04/22/22 04:58 37.3 C 72 18 116/61 92 Room Air 04/22/22 03:43 37.3 C 74 18 99/66 L 92 Room Air 04/22/22 01:43 89 O2 Flow Rate 04/22/22 11:14 2 04/22/22 08:00 04/22/22 08:07 04/22/22 07:38 04/22/22 04:58 04/22/22 03:43 04/22/22 01:43 PG Care Time/CCT Total # of Minutes Spent Total Time Spent with Patient: Total time spent is greater than 50% in coordination of care (as documented) at patient's floor/unit and/or counseling patient: Coding Level of Care Code 94885 Subseq Hosp Care Lvl 3 Diagnoses Pneumonia J18.9 Elevated troponin R77.8 Venous stasis dermatitis I87.2 Rheumatoid arthritis M06.9 Rheumatoid arthritis location: unspecified site Rheumatoid factor presence: unspecified presence HTN (hypertension) I10 CKD (chronic kidney disease) stage 3, GFR 30-59 ml/min N18.30 Chronic kidney disease stage 3 subtype: unspecified whether 3a or 3b Acute diastolic CHF (congestive heart failure) I50.31 Elevated troponin level not due myocardial infarction R77.8 (1) Rheumatoid arthritis Rheumatoid arthritis location: unspecified site Rheumatoid factor presence: unspecified presence Qualified Code(s): M06.9 - Rheumatoid arthritis, unspecified (2) CKD (chronic kidney disease) stage 3, GFR 30-59 ml/min Chronic kidney disease stage 3 subtype: unspecified whether 3a or 3b Qualified Code(s): N18.30 - Chronic kidney disease, stage 3 unspecified
[2022-04-22] MEDS: HYDROXYCHLOROQUINE SULFATE 200 MG TAB PO SCH (20:28)
[2022-04-23] MEDS: AZITHROMYCIN 250 MG TAB PO SCH (08:23)
[2022-04-23] MEDS: ENOXAPARIN INJ 40 MG/0.4 ML SYR SQ SCH (08:23)
[2022-04-23] MEDS: predniSONE 2.5 MG TAB PO SCH (08:23)
[2022-04-23] MEDS: predniSONE 5 MG TAB PO SCH (08:23)
[2022-04-23] MEDS: ASPIRIN 325 MG ECTAB PO SCH (08:23)
[2022-04-23] MEDS: POTASSIUM CHLORIDE CRTAB 20 MEQ TABCR PO SCH ×2 (08:23→17:31)
[2022-04-23] MEDS: LOSARTAN POTASSIUM 25 MG TAB PO SCH (08:23)
[2022-04-23 09:39] LABS: Creatinine Clr Calc Pharmacy 26.6 ml/min; Est GFR (African American) 27.6 ml/min; Est GFR (Non-African American) 23.8 ml/min
[2022-04-23] MEDS: LEFLUNOMIDE 10 MG TAB PO SCH (09:49)
[2022-04-23] MEDS: FUROSEMIDE 40 MG/4 ML VIAL IV SCH (10:34)
[2022-04-23] MEDS: HYDROXYCHLOROQUINE SULFATE 200 MG TAB PO SCH (20:20)
--- NOTE | 2022-04-23 20:45 | Hospitalist Progress Note ---
Date of Service April 23, 2022 Assessment & Plan (1) Acute diastolic CHF (congestive heart failure): Plan: Present on admission. Recent cardiac echo reveals normal ejection fraction. She has moderate aortic valve stenosis however. Still with rales and a coughwhile the cough may take longer due to the respiratory infection, the rales certainly are suggestive of ongoing fluid, as is her overall status. Continue to diurese, follow basic metabolic panel and clinical status. (2) Pneumonia: Plan: Seems to have resolved. At this point predominantly is a CHF decompensation as far as her respiratory status. (3) Elevated troponin: Plan: No acute EKG changes and no regional wall motion abnormality seen on cardiac echo. No evidence of acute coronary syndrome. Most likely due to demand ischemia (4) Venous stasis dermatitis: Plan: History of chronic venous insufficiency with venous stasis ulcers, stasis dermatitis and acquired lymphedema. Discussed with wound care team that they could resume compression, as her volume status is stable enough to be able to tolerate increased fluid in her venous circulation (5) Rheumatoid arthritis: Plan: Patient with RA. Well controlled. Continue Prednisone therapy. Continue Hydroxychloroquine (6) HTN (hypertension): Plan: Chronic. Treated with Losartan (7) CKD (chronic kidney disease) stage 3, GFR 30-59 ml/min: Plan: Monitor intake and output. Serial lab studies. Creatinine is rising to baseline with diuresiscontinue to follow (8) Elevated troponin level not due myocardial infarction: Plan: No evidence of acute coronary syndrome. Plan Does not really look like she would be safe at home based on PT/OT, my assessments, as well as her friend at the bedside. Work on rehab options Admission and Anticipated Discharge Date Admission Date: April 18, 2022 Subjective Slowly feeling better. Still has a cough. Friend at the bedside notes that she agrees that the patient would need rehab. Patient would rather go home with home healthbut seems did not really have an awareness that she would be of her own safety the other 23 hours a day. Review of Systems Review of Systems: All systems reviewed & are unremarkable except as noted in HPI & below Physical Exam Physical Exam: In general she is awake and alert pleasantly anxious no distress. HEENT normocephalic atraumatic mucous membranes moist. Lungs show bibasilar rales otherwise clear. No accessory muscle use. Neuro without focal deficits. Results & Data Results & Data ([facility]) Vital Signs (Past 12 Hours) Vital Signs Temp Pulse Pulse Resp BP Pulse Ox O2 Del Method 04/23/22 19:56 98.4 F 70 20 129/78 93 Nasal Cannula 04/23/22 18:05 77 04/23/22 15:51 98.8 F 65 18 132/81 96 Nasal Cannula 04/23/22 13:40 Nasal Cannula 04/23/22 11:06 98.8 F 74 18 120/70 92 Nasal Cannula 04/23/22 10:55 75 O2 Flow Rate 04/23/22 19:56 2 04/23/22 18:05 04/23/22 15:51 2 04/23/22 13:40 2 04/23/22 11:06 2 04/23/22 10:55 PG Care Time/CCT Total # of Minutes Spent Total Time Spent with Patient: Total time spent is greater than 50% in coordination of care (as documented) at patient's floor/unit and/or counseling patient: Coding Level of Care Code 99656 SUB INP/OBS CARE 3/50MIN Diagnoses Acute diastolic CHF (congestive heart failure) I50.31 Pneumonia J18.9 Elevated troponin R77.8 Venous stasis dermatitis I87.2 Rheumatoid arthritis M06.9 Rheumatoid arthritis location: unspecified site Rheumatoid factor presence: unspecified presence HTN (hypertension) I10 CKD (chronic kidney disease) stage 3, GFR 30-59 ml/min N18.30 Chronic kidney disease stage 3 subtype: unspecified whether 3a or 3b Elevated troponin level not due myocardial infarction R77.8 (1) Rheumatoid arthritis Rheumatoid arthritis location: unspecified site Rheumatoid factor presence: unspecified presence Qualified Code(s): M06.9 - Rheumatoid arthritis, unspecified (2) CKD (chronic kidney disease) stage 3, GFR 30-59 ml/min Chronic kidney disease stage 3 subtype: unspecified whether 3a or 3b Qualified Code(s): N18.30 - Chronic kidney disease, stage 3 unspecified
[2022-04-24 07:05] LABS: BUN Creatinine Ratio 20.2 (10-20); Calcium 7.9 mg/dl (8.5-10.1); Creatinine Clr Calc Pharmacy 25.5 ml/min; Est GFR (African American) 26.1 ml/min; Est GFR (Non-African American) 22.6 ml/min
[2022-04-24] MEDS: POTASSIUM CHLORIDE CRTAB 20 MEQ TABCR PO SCH ×2 (07:33→17:12)
[2022-04-24] MEDS: FUROSEMIDE 40 MG TAB PO SCH (07:33)
[2022-04-24] MEDS: ASPIRIN 325 MG ECTAB PO SCH (07:34)
[2022-04-24] MEDS: ENOXAPARIN INJ 30 MG/0.3 ML SYR SQ SCH (07:34)
[2022-04-24] MEDS: LOSARTAN POTASSIUM 25 MG TAB PO SCH (07:34)
[2022-04-24] MEDS: predniSONE 5 MG TAB PO SCH (07:35)
[2022-04-24] MEDS: predniSONE 2.5 MG TAB PO SCH (07:35)
[2022-04-24] MEDS: LEFLUNOMIDE 10 MG TAB PO SCH (08:41)
--- NOTE | 2022-04-24 18:46 | Hospitalist Progress Note ---
Date of Service April 24, 2022 Assessment & Plan (1) Acute diastolic CHF (congestive heart failure): Plan: Present on admission. Recent cardiac echo reveals normal ejection fraction. She has moderate aortic valve stenosis however. Creatinine is bumped some, suspect currently we have got her about as dry with diuretics acutely as we can. Reduce to 40 daily, continue to follow. (2) Pneumonia: Plan: Seems to have resolved. At this point predominantly is a CHF decompensation as far as her respiratory status. (3) Elevated troponin: Plan: No acute EKG changes and no regional wall motion abnormality seen on cardiac echo. No evidence of acute coronary syndrome. Most likely due to demand ischemia (4) Venous stasis dermatitis: Plan: History of chronic venous insufficiency with venous stasis ulcers, stasis dermatitis and acquired lymphedema. Compression has resumed (5) Rheumatoid arthritis: Plan: Patient with RA. Well controlled. Continue Prednisone therapy. Continue [place] xychloroquine (6) HTN (hypertension): Plan: Chronic. Treated with Losartan (7) CKD (chronic kidney disease) stage 3, GFR 30-59 ml/min: Plan: Monitor intake and output. Serial lab studies. Creatinine is settled out at about 2diuretics changed from 40 mg IV twice daily to 40 mg p.o. daily (8) Elevated troponin level not due myocardial infarction: Plan: No evidence of acute coronary syndrome. Plan While I feel she would be much safer at a rehab facility, she is very much wanting to go home. In discussion with her [id number], it sounds like the home situation is tenuous at best. At the same time patient does have capacity. I did ask case management to set things in motion for rehab placement, and patient did allow a referral to [facility]. Continue to follow day to day Admission and Anticipated Discharge Date Admission Date: April 18, 2022 Subjective Still has a cough. has been oob some. wants to go home worried about going to rehab for a prolonged period of time. no other new complaints or symptoms ex-sister in law HIP[employer] contact asked for call - w pt's persmission called -> she's very worried about her going home. takes 20mins to get from chair to toilet (only a few feet) frequent falls, very little self care. Discussed that patient is free to make her own decisions and that while I agree that a rehab type setting seems much more appropriate, I am not able to force it. Review of Systems Review of Systems: All systems reviewed & are unremarkable except as noted in HPI & below Physical Exam Physical Exam: General she is awake and alert very anxious but no distress. HEENT normocephalic atraumatic mucous membranes moist. Breathing unlabored no accessory muscle use good effort. Skin shows no rashes no pallor or icterus. Neuro without focal deficits. Results & Data Results & Data ([facility]) Vital Signs (Past 12 Hours) Vital Signs Temp Pulse Pulse Resp BP Pulse Ox O2 Del Method 04/24/22 16:52 98.1 F 78 16 126/83 92 Room Air 04/24/22 15:00 83 04/24/22 12:16 98.6 F 79 16 135/78 91 Room Air 04/24/22 09:00 Nasal Cannula 04/24/22 08:05 98.2 F 59 L 16 110/58 L 93 Nasal Cannula 04/24/22 07:00 59 L O2 Flow Rate 04/24/22 16:52 04/24/22 15:00 04/24/22 12:16 04/24/22 09:00 1 04/24/22 08:05 2 04/24/22 07:00 PG Care Time/CCT Total # of Minutes Spent Total Time Spent with Patient: Total time spent is greater than 50% in coordination of care (as documented) at patient's floor/unit and/or counseling patient: Coding Level of Care Code 18311 SUB INP/OBS CARE 3/50MIN Diagnoses Acute diastolic CHF (congestive heart failure) I50.31 Pneumonia J18.9 Elevated troponin R77.8 Venous stasis dermatitis I87.2 Rheumatoid arthritis M06.9 Rheumatoid arthritis location: unspecified site Rheumatoid factor presence: unspecified presence HTN (hypertension) I10 CKD (chronic kidney disease) stage 3, GFR 30-59 ml/min N18.30 Chronic kidney disease stage 3 subtype: unspecified whether 3a or 3b Elevated troponin level not due myocardial infarction R77.8 (1) Rheumatoid arthritis Rheumatoid arthritis location: unspecified site Rheumatoid factor presence: unspecified presence Qualified Code(s): M06.9 - Rheumatoid arthritis, unspecified (2) CKD (chronic kidney disease) stage 3, GFR 30-59 ml/min Chronic kidney disease stage 3 subtype: unspecified whether 3a or 3b Qualified Code(s): N18.30 - Chronic kidney disease, stage 3 unspecified
[2022-04-24] MEDS: HYDROXYCHLOROQUINE SULFATE 200 MG TAB PO SCH (20:17)
[2022-04-25] MEDS: predniSONE 2.5 MG TAB PO SCH (08:06)
[2022-04-25] MEDS: predniSONE 5 MG TAB PO SCH (08:06)
[2022-04-25] MEDS: ASPIRIN 325 MG ECTAB PO SCH (08:07)
[2022-04-25] MEDS: LEFLUNOMIDE 10 MG TAB PO SCH (08:07)
[2022-04-25] MEDS: LOSARTAN POTASSIUM 25 MG TAB PO SCH (08:07)
[2022-04-25] MEDS: FUROSEMIDE 40 MG TAB PO SCH (08:07)
[2022-04-25] MEDS: POTASSIUM CHLORIDE CRTAB 20 MEQ TABCR PO SCH ×2 (08:07→16:43)
[2022-04-25] MEDS: ENOXAPARIN INJ 30 MG/0.3 ML SYR SQ SCH (08:08)
[2022-04-25 08:25] LABS: Creatinine Clr Calc Pharmacy 27.6 ml/min; Potassium 4.1 mmol/L (3.5-5.1)
--- NOTE | 2022-04-25 11:10 | Hospitalist Progress Note ---
Date of Service April 25, 2022 Assessment & Plan (1) Acute diastolic CHF (congestive heart failure): Plan: Present on admission. Recent cardiac echo reveals normal ejection fraction. She has moderate aortic valve stenosis however. Creatinine is bumped some, suspect currently we have got her about as dry with diuretics acutely as we can. Reduce to 40 daily, continue to follow. will repeat chest x ray on 04/25 anticipate viral illness and atelectasis are playing a role with her hypoxia X-Ray showed: 1. No significant change in appearance of the chest. Mild interstitial pulmonary edema with small bilateral pleural effusions. 2. Left perihilar left basilar opacity which could reflect pneumonia or atelectasis. Radiographic follow-up is recommended. (2) Pneumonia: Plan: Seems to have resolved. At this point predominantly is a CHF decompensation as far as her respiratory status. (3) Elevated troponin: Plan: No acute EKG changes and no regional wall motion abnormality seen on cardiac echo. No evidence of acute coronary syndrome. Most likely due to demand ischemia (4) Venous stasis dermatitis: Plan: History of chronic venous insufficiency with venous stasis ulcers, stasis dermatitis and acquired lymphedema. Compression has resumed (5) Rheumatoid arthritis: Plan: Patient with RA. Well controlled. Continue Prednisone therapy. Continue Hydroxychloroquine (6) HTN (hypertension): Plan: Chronic. Treated with Losartan (7) CKD (chronic kidney disease) stage 3, GFR 30-59 ml/min: Plan: Monitor intake and output. Serial lab studies. Creatinine is settled out at about 2diuretics changed from 40 mg IV twice daily to 40 mg p.o. daily (8) Elevated troponin level not due myocardial infarction: Plan: No evidence of acute coronary syndrome. Plan While I feel she would be much safer at a rehab facility, she is very much wanting to go home. In discussion with her pqlcgh-wv-lob, it sounds like the home situation is tenuous at best. At the same time patient does have capacity. I did ask case management to set things in motion for rehab placement, and patient did allow a referral to [facility]. Continue to follow day to day Admission and Anticipated Discharge Date Admission Date: April 18, 2022 Subjective Patient is back on supplemental oxygen. Nurse reports she has been depressed and wanted this to end. When asked about it, she is concerned about discharge. She would like to go home. Review of Systems Review of Systems: All systems reviewed & are unremarkable except as noted in HPI & below Physical Exam Physical Exam: General she is awake and alert.She is not as anxious. HEENT normocephalic atraumatic mucous membranes moist. Breathing unlabored no accessory muscle use good effort. Skin shows no rashes no pallor or icterus. Neuro without focal deficits. Results & Data Results & Data ([facility]) Vital Signs (Past 12 Hours) Vital Signs Temp Pulse Pulse Resp BP Pulse Ox O2 Del Method 04/25/22 07:59 36.5 C 76 16 121/64 90 Room Air 04/25/22 07:07 73 04/25/22 03:00 36.9 C 65 18 134/73 92 Room Air PG Care Time/CCT Total # of Minutes Spent Total Time Spent with Patient: Total time spent is greater than 50% in coordination of care (as documented) at patient's floor/unit and/or counseling patient: Coding Level of Care Code 26359 SUB INP/OBS CARE 2/35MIN Diagnoses Acute diastolic CHF (congestive heart failure) I50.31 Pneumonia J18.9 Elevated troponin R77.8 Venous stasis dermatitis I87.2 Rheumatoid arthritis M06.9 Rheumatoid arthritis location: unspecified site Rheumatoid factor presence: unspecified presence HTN (hypertension) I10 CKD (chronic kidney disease) stage 3, GFR 30-59 ml/min N18.30 Chronic kidney disease stage 3 subtype: unspecified whether 3a or 3b Elevated troponin level not due myocardial infarction R77.8 (1) Rheumatoid arthritis Rheumatoid arthritis location: unspecified site Rheumatoid factor presence: unspecified presence Qualified Code(s): M06.9 - Rheumatoid arthritis, unspecified (2) CKD (chronic kidney disease) stage 3, GFR 30-59 ml/min Chronic kidney disease stage 3 subtype: unspecified whether 3a or 3b Qualified Code(s): N18.30 - Chronic kidney disease, stage 3 unspecified
--- NOTE | 2022-04-25 12:53 | XRay Report ---
XR chest 2V PA/lateral CLINICAL HISTORY: Hypoxia. COMPARISON STUDY: Chest radiograph April 22, 2022. FINDINGS: Low lung volumes are again noted. There is no pneumothorax. There are small bilateral pleur al effusions. Diffuse interstitial thickening persists. Left perihilar and left basilar opacity is no rc. No significant change in appearance of the chest. Cardiomediastinal silhouette is stable. IMPRESSION: 1. No significant change in appearance of the chest. Mild interstitial pulmonary edema with small macie ateral pleural effusions. 2. Left perihilar left basilar opacity which could reflect pneumonia or atelectasis. Radiographic fol low-up is recommended. ACT 112: Negative or not required by law. Electronically signed by: Brady Hassan M.D. 04/25/2022 12:52 PM
[2022-04-25] MEDS: HYDROXYCHLOROQUINE SULFATE 200 MG TAB PO SCH (20:05)
--- NOTE | 2022-04-26 08:19 | Hospitalist Progress Note ---
Date of Service April 26, 2022 Assessment & Plan (1) Acute diastolic CHF (congestive heart failure): Plan: 76yo female with history of HTN, HLP, RA on hydroxychloroquine and Prednisone, chronic venous insufficiency with stasis ulcers presenting with 3-4 days of feel ing ill. (1) Acute diastolic CHF (congestive heart failure): -Present on admission. Recent cardiac echo reveals normal ejection fraction. She has moderate aortic valve stenosis however. Creatinine is bumped some, suspect currently we have got her about as dry with diuretics acutely as we can. Reduce to 40mg lasix daily, continue to follow. -anticipate viral illness and atelectasis are playing a role with her hypoxia -CXR: No significant change in appearance of the chest. Mild interstitial pulmonary edema with small bilateral pleural effusions. Left perihilar left basilar opacity which could reflect pneumonia or atelectasis. Radiographic follow-up is recommended. (2) Pneumonia: -Seems to have resolved. At this point predominantly is a CHF decompensation as far as her respiratory status. Social Concerns -PT/OT recommend home with home health -Family and friends are suggesting patient go to SNF, there are possible insurance issues -patient currently undecided between home or placement (3) Elevated troponin: -No acute EKG changes and no regional wall motion abnormality seen on cardiac echo. No evidence of acute coronary syndrome. Most likely due to demand ischemia (4) Venous stasis dermatitis: -History of chronic venous insufficiency with venous stasis ulcers, stasis dermatitis and acquired lymphedema. Compression has resumed (5) Rheumatoid arthritis: -Patient with RA. Well controlled. Continue Prednisone therapy. Continue Hydroxychloroquine (6) HTN (hypertension): -Chronic. Treated with Losartan (7) CKD (chronic kidney disease) stage 3, GFR 30-59 ml/min: -Monitor intake and output. Serial lab studies. Creatinine is settled out at about 2diuretics changed from 40 mg IV twice daily to 40 mg p.o. daily (8) Elevated troponin level not due myocardial infarction: -No evidence of acute coronary syndrome. (2) Pneumonia: (3) Venous stasis dermatitis: Admission and Anticipated Discharge Date Admission Date: April 18, 2022 Supervising Physician Co-Signing Physician Notes I personally examined the patient and verified all wood points of history and exam, discussed case, and agree with decision making with Dr Palacios Feeling okay. Feels up to going home. Would like a day or so to get readyplanning on going home tomorrow. Vitals noted, in general she is in no distress. Breathing unlabored no accessory muscle use good effort. Skin shows no rashes no pallor or icterus. Diastolic CHF, weaknessdiuresed, on room air, anticipate home with home health tomorrow. Subjective Patient seen at bedside, calm comfortable cooperative. Eating well slept well no SOB pain noted, no concerns at this time. Patient is requesting inpatient rehab at this time. Review of Systems Review of Systems: All systems reviewed & are unremarkable except as noted in HPI & below Physical Exam Constitutional: well developed, well nourished, + obese, cooperative and comfortable Eyes: PERRL, conjunctivae normal, anicteric sclerae ENMT: external ear and nose normal, oropharynx normal Neck: trachea midline, no thyromegaly Respiratory: normal respiratory effort, lungs clear to auscultation Cardiovascular: Rate/Rhythm: regular rate and regular rhythm Extremities: + edema (+2 pitting edema) Gastrointestinal (Abdomen): Inspection/Auscultation: abdomen normal to inspection; abdomen not distended Percussion/Palpation: abdomen soft; abdomen nontender Skin: no rashes, warm and dry Results & Data Results & Data ([facility]) Vital Signs (Past 12 Hours) Vital Signs Temp Pulse Pulse Resp BP Pulse Ox O2 Del Method 04/26/22 08:10 65 04/26/22 08:00 36.7 C 62 18 143/73 H 95 Room Air 04/26/22 04:00 36.6 C 63 18 130/72 93 Room Air 04/26/22 04:45 59 L 04/25/22 23:48 36.7 C 62 18 127/70 92 Room Air 04/25/22 22:23 Nasal Cannula O2 Flow Rate 04/26/22 08:10 04/26/22 08:00 04/26/22 04:00 04/26/22 04:45 04/25/22 23:48 04/25/22 22:23 2 Resident Activity Tracking Resident Involvement: Resident Care Provided Care Provided: Adult Hospital Medicine
[2022-04-26] MEDS: ASPIRIN 325 MG ECTAB PO SCH (08:35)
[2022-04-26] MEDS: ENOXAPARIN INJ 30 MG/0.3 ML SYR SQ SCH (08:35)
[2022-04-26] MEDS: FUROSEMIDE 40 MG TAB PO SCH (08:36)
[2022-04-26] MEDS: predniSONE 5 MG TAB PO SCH (08:36)
[2022-04-26] MEDS: predniSONE 2.5 MG TAB PO SCH (08:36)
[2022-04-26] MEDS: LOSARTAN POTASSIUM 25 MG TAB PO SCH (08:36)
[2022-04-26] MEDS: POTASSIUM CHLORIDE CRTAB 20 MEQ TABCR PO SCH ×2 (08:36→17:42)
[2022-04-26 09:41] LABS: Hematocrit (blood only) 35.1 % (34.1-44.9); Mean Corpuscular Hemoglobin 27.3 pg (25.0-34.0); Mean Corpuscular Hgb Conc 31.3 g/dL (32.0-36.0); Mean Corpuscular Volume 87.1 fL (80.0-100.0); Mean Platelet Volume 11.6 fL (9.4-12.3); Platelet Count 168 K/uL (130-400); RDW Coefficient of Variation 14.3 % (11.5-14.5); RDW Standard Deviation 45.5 fL (36.4-46.3); Red Blood Count 4.03 M/uL (3.93-5.22)
[2022-04-26 10:04] LABS: BUN Creatinine Ratio 22.1 (10-20); C Reactive Protein 2.56 mg/dl (0-0.5); Creatinine Clr Calc Pharmacy 25.6 ml/min; Est GFR (African American) 26.8 ml/min; Est GFR (Non-African American) 23.1 ml/min; Potassium 4.1 mmol/L (3.5-5.1)
[2022-04-26] MEDS: LEFLUNOMIDE 10 MG TAB PO SCH (10:32)
--- NOTE | 2022-04-26 19:07 | Billing Data ---
Date of Service April 26, 2022 Coding Level of Care Code 15340 SUB INP/OBS CARE
[2022-04-26] MEDS: HYDROXYCHLOROQUINE SULFATE 200 MG TAB PO SCH (20:25)
--- NOTE | 2022-04-27 08:16 | Hospitalist Progress Note ---
Date of Service April 27, 2022 Assessment & Plan (1) Acute diastolic CHF (congestive heart failure): Plan: 76yo female with history of HTN, HLP, RA on hydroxychloroquine and Prednisone, chronic venous insufficiency with stasis ulcers presenting with 3-4 days of feel ing ill. (1) Acute diastolic CHF (congestive heart failure): -Present on admission. Recent cardiac echo reveals normal ejection fraction. She has moderate aortic valve stenosis however. Creatinine is bumped some, suspect currently we have got her about as dry with diuretics acutely as we can. Reduce to 40mg lasix daily, continue to follow. -anticipate viral illness and atelectasis are playing a role with her hypoxia -CXR: No significant change in appearance of the chest. Mild interstitial pulmonary edema with small bilateral pleural effusions. Left perihilar left basilar opacity which could reflect pneumonia or atelectasis. Radiographic follow-up is recommended. (2) Pneumonia: -Seems to have resolved. At this point predominantly is a CHF decompensation as far as her respiratory status. Social Concerns -PT/OT recommend home with home health -Family and friends are suggesting patient go to SNF, there are possible insurance issues -patient currently undecided between home or placement (3) Elevated troponin: -No acute EKG changes and no regional wall motion abnormality seen on cardiac echo. No evidence of acute coronary syndrome. Most likely due to demand ischemia (4) Venous stasis dermatitis: -History of chronic venous insufficiency with venous stasis ulcers, stasis dermatitis and acquired lymphedema. Compression has resumed (5) Rheumatoid arthritis: -Patient with RA. Well controlled. Continue Prednisone therapy. Continue Hydroxychloroquine (6) HTN (hypertension): -Chronic. Treated with Losartan (7) CKD (chronic kidney disease) stage 3, GFR 30-59 ml/min: -Monitor intake and output. Serial lab studies. Creatinine is settled out at about 2diuretics changed from 40 mg IV twice daily to 40 mg p.o. daily (8) Elevated troponin level not due myocardial infarction: -No evidence of acute coronary syndrome. (2) Pneumonia: (3) Venous stasis dermatitis: Admission and Anticipated Discharge Date Admission Date: April 18, 2022 Results & Data Results & Data ([facility]) Vital Signs (Past 12 Hours) Vital Signs Temp Pulse Pulse Resp BP Pulse Ox O2 Del Method 01/08/23 08:10 60 04/27/22 08:04 36.6 C 68 18 139/77 91 Room Air 04/27/22 06:20 68 04/27/22 04:07 36.9 C 62 18 130/72 93 Room Air 04/26/22 23:23 36.7 C 65 18 145/77 H 94 Room Air
[2022-04-27] MEDS ORDERED: LEFLUNOMIDE 10 MG TAB PO SCH (09:00)
[2022-04-27] MEDS: ASPIRIN 325 MG ECTAB PO SCH (09:10)
[2022-04-27] MEDS: ENOXAPARIN INJ 30 MG/0.3 ML SYR SQ SCH (09:11)
[2022-04-27] MEDS: predniSONE 2.5 MG TAB PO SCH (09:12)
[2022-04-27] MEDS: POTASSIUM CHLORIDE CRTAB 20 MEQ TABCR PO SCH (09:12)
[2022-04-27] MEDS: LOSARTAN POTASSIUM 25 MG TAB PO SCH (09:12)
[2022-04-27] MEDS: FUROSEMIDE 40 MG TAB PO SCH (09:12)
[2022-04-27] MEDS: predniSONE 5 MG TAB PO SCH (09:12)
--- NOTE | 2022-04-27 12:11 | Discharge Summary ---
Date of Service April 27, 2022 Admission HPI Per Admitting Provider Dona Villalpando is a 76yo female with history of HTN, HLP, RA on hydroxychloroquine and Prednisone, chronic venous insufficiency with stasis ulcers presenting with 3-4 days of feeling ill. She reports generalized weakne ss and fatigue as well as sore throat, headache and dry cough which has been ongoing for the last 3-4 days. She has been having a difficult time ambulating and fell yesterday. Her home health nurse came today and contacted her PCP who recommended that she come to the ER for further evaluation. She denies fever, chest pain, palpitations, nausea, vomiting, diarrhea or constipation. She reports she has been eating and drinking fairly well at home. No additional complaints at this time. In the ER she is afebrile, hypertensive otherwise HD stable. ER course: ASA 324mg NSS x 250mL, now at 125mL/hr Ceftriaxone 2gm Admission Exam Per Admitting Provider General: patient resting comfortably, NAD, ill in appearance Skin: warm, dry, leg wraps in place, numerous sebhorrheic keratoses on back HEENT: NC/AT, PERRL, EOMI, anicteric sclera, conjunctiva without injection, external ear normal to inspection and nontender, nares patent, moist mucus membranes, dentition intact, no oropharyngeal lesions, neck supple, trachea midline, no LAD, no thyromegaly, no JVD Heart: +S1/S2, regular, no m/r/g Lungs: equal air entry bilaterally, crackles in bilateral mid lung hernandez, diminished breath sounds in bases Abd: +BS, soft, NT/ND, no masses/organomegaly/ascites Ext: warm, 2+ pulses in UE/LE bilaterally, no clubbing/cyanosis, leg wraps in place Neuro: nonfocal, patient AA&O x 4, speech intact, no facial droop, moving all extremities on command with equal strength 5/5 Principal Diagnosis CHF exacerbation, PNA Discharge Exam Constitutional WD/WN, vitals as above + obese Eyes PERRL, conjunctivae normal, anicteric sclerae ENMT external ear and nose normal, oropharynx normal Neck trachea midline, no thyromegaly Respiratory normal respiratory effort, lungs clear to auscultation Cardiovascular Rate/Rhythm: regular rate and regular rhythm Gastrointestinal (Abdomen) Inspection/Auscultation: abdomen normal to inspection; abdomen not distended Percussion/Palpation: abdomen soft; abdomen nontender Skin no rashes, warm and dry Discharge Data Allergies Allergy/AdvReac Type Severity Reaction Status Date / Time cefadroxil Allergy Intermediate Rash Verified 04/07/22 10:22 Sulfa (Sulfonamide Allergy Intermediate RASH Verified 04/07/22 10:22 Antibiotics) cefepime Allergy Unknown Unknown Verified 04/07/22 10:22 cephalexin [From Keflex] Allergy Unknown Unknown Verified 04/07/22 10:22 levofloxacin [From Levaquin] AdvReac Intermediate rash Verified 04/07/22 10:22 oxycodone AdvReac Mild NAUSEA Verified 04/07/22 10:22 Consultations 04/18/22 15:08 ED Decision to Admit Stat 04/25/22 11:10 Consult Behavioral Health Liaison Routine Ordered Studies 04/18/22 12:44 CT head/brain wo con Stat Hospital Course (1) Acute diastolic CHF (congestive heart failure): 76yo female with history of HTN, HLP, RA on hydroxychloroquine and Prednisone, chronic venous insufficiency with stasis ulcers presenting with 3-4 days of feeling ill. -Continue lasix 40mg daily in outpatient, follow up with PCP to recheck BMP, decide if need to discontinue lasix (1) Acute diastolic CHF (congestive heart failure): -Present on admission. Recent cardiac echo reveals normal ejection fraction. She has moderate aortic valve stenosis however. Creatinine is bumped some, suspect currently we have got her about as dry with diuretics acutely as we can. Reduce to 40mg lasix daily -anticipate viral illness and atelectasis are playing a role with her hypoxia -CXR:No significant change in appearance of the chest. Mild interstitial pulmonary edema with small bilateral pleural effusions. Left perihilar left basilar opacity which could reflect pneumonia or atelectasis. Radiographic follow-up is recommended. (2) Pneumonia: -Seems to have resolved. At this point predominantly is a CHF decompensation as far as her respiratory status. Social Concerns -PT/OT recommend home with home health -Patient has decided to return home with home health (3) Elevated troponin: -No acute EKG changes and no regional wall motion abnormality seen on cardiac echo. No evidence of acute coronary syndrome. Most likely due to demand ischemia (4) Venous stasis dermatitis: -History of chronic venous insufficiency with venous stasis ulcers, stasis dermatitis and acquired lymphedema. Compression has resumed (5) Rheumatoid arthritis: -Patient with RA. Well controlled. Continue Prednisone therapy. Continue Hydroxychloroquine (6) HTN (hypertension): -Chronic. Treated with Losartan (7) CKD (chronic kidney disease) stage 3, GFR 30-59 ml/min: -last at 2.04, slightly elevated from baseline 1.5 (8) Elevated troponin level not due myocardial infarction: -No evidence of acute coronary syndrome. (2) Pneumonia: (3) Venous stasis dermatitis: Total Time Total Time Spent Total Time Spent (In Minutes): see attending attestation Discharge Plan Discharge Items Patient Disposition: Home - Home Health Services Reason For Visit: WEAKNESS, FATIGUE Discharge Diagnosis: CHF exacerbation, PNA Activity: Resume your previous activity Non-emergency contact: Primary Care Provider Call non-emergency contact if: you have any medication questions, your symptoms worsen and your pain is concerning for you Follow-up/Referrals: Svetlana Rosales CRNP [Primary Care Provider] - Diet: Heart Healthy Addtl Attending Provider Instructions: You were admitted to the hospital for weakness and fatigue, partially due to pneumonia and heart failure exacerbation. You were treated with antibiotics and water pills, and your symptoms improved. Please check in with your PCP after discharge to ensure your new medications are tolerated well. A discharge summary will be sent to your primary care physician to ensure continuity of care. Please bring this discharge summary with you to your next office appointment so that your provider can review it at that time. Follow-up appointments: Make a follow-up appointment with your PCP within the next week. It is very important that you follow up with them shortly after discharge from the hospital. Keep all your follow-up appointments as already scheduled. If you cannot make an appointment, notify your provider. Medications: Your medication list has been reviewed and reconciled upon discharge to ensure accuracy and continuity of care. An updated list of all your medications is included with your hospital discharge paperwork. Please review this list closely, and make note of any changes. * We sent a new medication called Furosemide to your pharmacy. Take Furosemide 40mg 1 tab daily Take your medications as instructed; do not skip a dose of your medicines. Make sure all of your doctors know every medicine you are taking (including xble-esk-osrumhb medicines, vitamins, and supplements). Call your primary care provider before taking any new medicines (including mwcv-svr-drqpfkj medicines, vitamins, and supplements), because some of these may interact with your current medications, or may make your symptoms worse. Tell your primary care provider if you cannot afford your medications. CONTACT YOUR PRIMARY CARE PROVIDER if you experience any of the following: Difficulty breathing Fever, increased swelling Difficulty following your treatment plan, or difficulty taking medications CALL 911 OR GO TO THE EMERGENCY DEPARTMENT if you experience any of the following: Sudden, severe abdominal pain or nausea/vomiting Severe chest pain, or chest pain that radiates (moves) to your jaw or arm Sudden, severe shortness of breath or difficulty breathing Thank you for allowing us to participate in your care. Pending Studies at Discharge: No Stand-Alone Forms: My [facility] [place], Smoking Cessation Medications and DC Order Prescriptions: New furosemide 40 mg Tablet 40 mg PO QAM 30 Days Qty: 30 0RF Continued leflunomide 10 mg tablet 10 mg PO DAILY aspirin 325 mg tablet,delayed release (DR/EC) 325 mg PO DAILY prednisone 5 mg tablet 5 mg PO QAM prednisone 2.5 mg tablet 2.5 mg PO QAM losartan 25 mg tablet 25 mg PO DAILY hydroxychloroquine 200 mg tablet 400 mg PO HS Discharge Orders: Discharge Order (Routine); Ordered 04/27/22 Ordered By: Tran Lucia Admission Data Admit Date/Time: 04/18/22 15:25 Attending Provider: Luan Nj Admit Provider: Carol Escamilla Primary Care Provider: Svetlana Rosales Other Providers: Carol Escamilla ; [place] ; [facility] Other Interventions: Discharge Summary Assessment (RN) Last Done: 04/27/22 11:48 Supervising Physician Co-Signing Physician Notes I personally examined the patient and verified all wood points of history and exam, discussed case, and agree with decision making with Dr Lucia Feeling okay. Feels up to going home. d/w case management Vitals noted, in general she is in no distress. Breathing unlabored no accessory muscle use good effort lungs base clear faint scattered wheeze mid lungs. Skin shows no rashes no pallor or icterus. Diastolic CHF, weaknessdiuresed, on room air, stable for home. discussed dual goals of caution to avoid falls and doing more so as to fight against deconditioning Resident Activity Tracking Resident Involvement: Resident Care Provided Care Provided: Adult Hospital Medicine
--- NOTE | 2022-04-27 17:41 | Billing Data ---
Date of Service April 27, 2022 Coding Level of Care Code HOSP INP/OBS DISCH 30 MIN/LESS
== END 2022-04-27 13:14 | disposition home health service (06) | DRG 193 ==
LOC: ED 10:45 → SUATTDRO 15:25 → EDINP 15:25 → 2W 16:19
DX: I50.31 Acute diastolic (congestive) heart failure; Z79.82 Long term (current) use of aspirin; I24.8 Other forms of acute ischemic heart disease; Z88.2 Allergy status to sulfonamides; Z96.653 Presence of artificial knee joint, bilateral; J18.9 Pneumonia, unspecified organism; N18.30 Chronic kidney disease, stage 3 unspecified; Z88.1 Allergy status to other antibiotic agents; Z86.14 Personal history of Methicillin resistant Staphylococcus aureus infection; I87.2 Venous insufficiency (chronic) (peripheral); Z79.52 Long term (current) use of systemic steroids; Z96.641 Presence of right artificial hip joint; M06.9 Rheumatoid arthritis, unspecified; I13.0 Hypertensive heart and chronic kidney disease with heart failure and stage 1 through stage 4 chronic kidney disease, or unspecified chronic kidney disease; Z88.5 Allergy status to narcotic agent; J98.11 Atelectasis; J90 Pleural effusion, not elsewhere classified

== ENCOUNTER 2023-05-14 10:11 | Inpatient (IN) ==
[2023-05-14 12:21] LABS: Basophils # (auto) 0.03 K/uL (0.00-0.20); Basophils % (auto) 0.6 %; Eosinophils # (auto) 0.24 K/uL (0.00-0.50); Eosinophils % (auto) 4.5 %; Hematocrit (blood only) 33.4 % (37.0-47.0); Hemoglobin 10.1 g/dl (12.0-16.0); Immature Granulocytes # (auto) 0.02 K/uL (0.01-0.20); Immature Granulocytes % (auto) 0.4 %; Lymphocytes # (auto) 1.25 K/uL (1.20-3.40); Lymphocytes % (auto) 23.2 %; Mean Corpuscular Hemoglobin 26.9 pg (25.0-34.0); Mean Corpuscular Hgb Conc 30.2 g/dL (32.0-36.0); Mean Corpuscular Volume 89.1 fL (80.0-100.0); Mean Platelet Volume 10.6 fL (9.4-12.4); Monocytes # (auto) 0.66 K/uL (0.11-0.59); Monocytes % (auto) 12.3 %; Neutrophils # (auto) 3.18 K/uL (1.40-6.50); Platelet Count 71 K/uL (130-400); RDW Coefficient of Variation 13.1 % (11.5-14.5); RDW Standard Deviation 42.6 fL (36.4-46.3); Red Blood Count 3.75 M/uL (4.20-5.40); White Blood Count 5.38 K/ul (4.8-10.8)
[2023-05-14 13:04] LABS: Alanine Aminotransferase 24 U/L (7-52); Albumin Globulin Ratio 1.8 (0.9-2); Albumin Level 3.9 gm/dl (3.4-5.0); Alkaline Phosphatase 135 U/L (34-104); Anion Gap 7 (3-11); BUN Creatinine Ratio 15.4 (10-20); Bilirubin,Total 0.5 mg/dl (0.2-1.0); Blood Urea Nitrogen 28 mg/dl (6-23); Calcium 9.6 mg/dl (8.6-10.3); Carbon Dioxide 25 mmol/L (21-32); Chloride 111 mmol/L (98-107); Est GFR (African American) 30.5 ml/min; Est GFR (Non-African American) 26.3 ml/min; Globulin 2.2 gm/dl (2.5-4.0); Glucose 88 mg/dl (70-99(Fasting)); Sodium 143 mmol/L (136-145); Total Protein 6.1 gm/dl (6.0-8.3)
--- NOTE | 2023-05-14 15:52 | XRay Report ---
XR foot RT 2V CLINICAL HISTORY: Right foot ulcer. COMPARISON: Right foot radiographs June 27, 2020. FINDINGS: Tarsometatarsal joints are intact. Lateral subluxation of the right first proximal phalanx with respect to the first metatarsal is chronic. There is moderate osteoarthritis at this articulati on. There is no acute fracture within the right foot. No radiographic evidence for acute osteomyeliti s. Suspected osteopenia. There is moderate vascular calcification. Dorsal midfoot soft tissue swellin g is present. IMPRESSION: 1. No acute fracture or evidence for acute osteomyelitis within the right foot. 2. Dorsal midfoot soft tissue swelling. ACT 112: Negative or not required by law. Electronically signed by: Brady Hassan M.D. 05/14/2023 3:51 PM
--- NOTE | 2023-05-14 16:09 | History & Physical Report ---
Date of Service May 14, 2023 Assessment & Plan (1) Pressure ulcer of right heel, stage 3: Plan: MSSA and Enterobacter cloacae on recent surface culture. Patient on Linezolid (2nd course) as outpatient. No clear reason for MRSA coverage. Historical cultures include MRSA on left foot, pseudomonas stutzeri in blood and Pseudomonas aeruginosa on multiple cultures however since she is not septic at this time we will cover her most recently growing wound culture with IV ceftriaxone alone. Low tolerance to broadening antibiotics if getting worse. No clear surrounding cellulitic changes but she notes the ulcer is getting worse, painful and having more difficulty walking with it now Follow up blood cultures CRP/ESR/Procalcitonin added (2) Thrombocytopenia: Plan: Previously decreased in the setting of infection (cellulitis) in October 2019 - no definitive cellulitis although given immunosuppression and prior bacteremia blood cultures and antibiotics given as above. Continue to monitor Hold heparin for Plt < 50 (3) Peripheral arterial disease: Plan: Noted history of this although no arterial dopplers in last year. Will get US arterial doppler to assess wound healing ability. (4) Chronic kidney disease, stage 4 (severe): Plan: At baseline. Continue to monitor Continue losartan Stop Jardiance given increased risk of amputation among SGLT-2 inhibitors (5) HTN (hypertension): Plan: Continue losartan (6) Rheumatoid arthritis: Plan: Continue her usual leflunomide, hydroxychloroquine and prednisone Plan VTE prophylaxis - heparin 5000 units BID (hold for platelets less than 50) Diet - regular Disposition - admit to [facility] (2 midnight rule) Admission and Anticipated Discharge Date Admission Date: May 14, 2023 History of Present Illness Chief Complaint: Ambulatory dysfunction, right heel ulcer Primary Care Provider: KARI Coughlin Dona Villalpando is a 77-year-old female who presents to the ER due to difficulty walking on her right foot. She has known b/l lower extremity wounds and follows with the wound clinic, most recently on her second course of linezolid for her right heel ulcer becoming larger and more painful over the last week and especially the last few days. She notes difficulty in ambulation but is unclear whether this is because of her foot ulcer, difficulty balancing or lightheadedness and feels it is a combination of all three. No new one sided weakness, change in vision, hearing or speech. She notes her rheumatoid arthritis is well controlled on her current regimen. Most recent surface wound culture with MSSA and Enterobacter cloacae from May 08. Most recent bacteremia is when I saw her in 2020 with pseudomonas stuzeri - suspected source of cellulitis at that time. She currently denies any fever or chills. Allergies Allergy/AdvReac Type Severity Reaction Status Date / Time cefadroxil Allergy Intermediate Rash Verified 05/14/23 16:44 Sulfa (Sulfonamide Allergy Intermediate RASH Verified 05/14/23 16:44 Antibiotics) cefepime Allergy Unknown Unknown Verified 05/14/23 16:44 cephalexin [From Keflex] Allergy Unknown Unknown Verified 05/14/23 16:44 levofloxacin [From Levaquin] AdvReac Intermediate rash Verified 05/14/23 16:44 oxycodone AdvReac Mild NAUSEA Verified 05/14/23 16:44 Home Medications Medication Instructions Recorded Confirmed Type leflunomide 10 mg tablet 10 mg PO 3XWK 07/10/20 05/14/23 History prednisone 5 mg tablet 5 mg PO QAM 11/16/20 05/14/23 History hydroxychloroquine 200 mg tablet 400 mg PO HS 04/18/22 05/14/23 History empagliflozin 10 mg tablet 10 mg PO DAILY #30 tabs 05/06/23 05/14/23 Rx (Jardiance) losartan 50 mg tablet 50 mg PO DAILY #30 tabs 05/06/23 05/14/23 Rx gentamicin 0.1 % topical ointment 1 applic topical DAILY 14 days #15 05/11/23 05/14/23 Rx grams linezolid 600 mg tablet 600 mg PO BID 10 days #20 tabs 05/11/23 05/14/23 Rx Past Med/Surg History Medical History (Updated 05/08/23 @ 11:08 by KARI Moser) Vitamin D deficiency Anemia of chronic disease Chronic kidney disease, stage 4 (severe) Elevated troponin level not due myocardial infarction Elevated troponin Cellulitis of left thigh Hypomagnesemia Ulcer with gangrene, limited to breakdown of skin Abscess of left thigh Cellulitis of left thigh Pressure ulcer of upper thigh Bacterial infection due to Pseudomonas Folate deficiency Bacterial infection due to Serratia Septic shock No blood products PER PATIENT REQUEST Cellulitis BILATERAL LEGS AND FEET, INPATIENT [facility] (JULY 2018) Pneumonia AUGUST 2017 Fracture of sacrum BILATERAL. ~2017, PHYSICAL THERAPY. USES WALKER Cancer MELANOMA Anemia Chronic steroid use CKD (chronic kidney disease) stage 3, GFR 30-59 ml/min Obesity HLD (hyperlipidemia) HTN (hypertension) Rheumatoid arthritis Surgical History S/P debridement (11/29/19) Right Thigh wound debridement, sharp, greater than [address] Peter 11/29/2019 S/P JUAN-BSO S/P revision of total hip RIGHT History of colonoscopy History of surgical removal of skin lesion BACK History of cataract surgery BILATERAL History of total hip replacement RIGHT Total knee replacement status BILATERAL Family History Father Non Hodgkin's lymphoma Mother Coronary heart disease Social History (Updated 05/06/23 @ 14:15 by Angely Watters, [employer]) Smoking Status: Never smoker Second Hand Exposure: No; Do You Dip or Chew Tobacco: No; Hx Alcohol Use: No Hx Substance Use: No Preferred Language: Thai Communication Ability: Effective Visual Impairment: Limited Hearing Ability: Normal Metal Drawer Required: No Beliefs That Will Affect Care: None marital status: Single Current Living Situation: Alone Current Living Situation Comment: lives at home, brother and niece help when needed. 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 Other Information That Helps Us Care for You: No Feels Safe at Home: Yes Safety Concerns: Feels Safe At This Time Diet: regular Physical Activity Frequency: Does not Exercise Do you think of yourself as: straight/heterosexual Gender Identity: Female Assistive Devices: Glasses and Walker Review of Systems Review of Systems: All systems reviewed & are unremarkable except as noted in HPI & below Physical Exam Constitutional: WD/WN, vitals as above Eyes: + anicteric sclerae; normal pupil size ENMT: external ear and nose normal, oropharynx normal Respiratory: normal respiratory effort, lungs clear to auscultation Cardiovascular: Rate/Rhythm: regular rate and regular rhythm Heart Sounds: no murmur Extremities: normal capillary refill and + pedal edema (3+ b/l equal to thighs); no calf tenderness Gastrointestinal (Abdomen): normal bowel sounds, soft, nontender, no hepatosplenomegaly Skin: Bilateral leg erythema sparing the dorsal aspect of both feet with swelling but without warmth. Right heel ulcer is most prominent wound approximately 1cm circumference with mild surrounding erythema but no definitive cellulitic changes, dressing removed with serosanguineous fluid on dressing Neurologic: moves all extremities and awake; not confused Psychiatric: A+Ox3, euthymic affect Results & Data Results & Data Vital Signs (Past 12 Hours) Vital Signs Temp Pulse Resp BP Pulse Ox O2 Del Method 05/14/23 10:21 36.5 C 79 20 161/74 H 97 Room Air Laboratory Results Abnormal lab results 05/14/23 Range/Units 11:52 RBC 3.75 L (4.20-5.40) M/uL Hgb 10.1 L (12.0-16.0) g/dl Hct 33.4 L (37.0-47.0) % MCHC 30.2 L (32.0-36.0) g/dL Plt Count 71 L (130-400) K/uL [place] # (Auto) 0.66 H (0.11-0.59) K/uL Chloride 111 H (98-107) mmol/L BUN 28 H (6-23) mg/dl Creatinine 1.82 H (0.6-1.2) mg/dl Alkaline Phosphatase 135 H (34-104) U/L Globulin 2.2 L (2.5-4.0) gm/dl Diagnostic Findings XR foot RT 2V CLINICAL HISTORY: Right foot ulcer. COMPARISON: Right foot radiographs June 27, 2020. FINDINGS: Tarsometatarsal joints are intact. Lateral subluxation of the right first proximal phalanx with respect to the first metatarsal is chronic. There is moderate osteoarthritis at this articulation. There is no acute fracture within the right foot. No radiographic evidence for acute osteomyelitis. Suspected osteopenia. There is moderate vascular calcification. Dorsal midfoot soft tissue swelling is present. IMPRESSION: 1. No acute fracture or evidence for acute osteomyelitis within the right foot. 2. Dorsal midfoot soft tissue swelling. Medications Administered ER medications given: None Code Status & VTE Plan Code Status DNR/DNI per patient wishes, consistent with prior hospitalizations VTE Prophylaxis Plan VTE Prophylaxis will be ordered: Yes PG Care Time/CCT Total # of Minutes Spent Total Time Spent with Patient: Total time spent is greater than 50% in coordination of care (as documented) at patient's floor/unit and/or counseling patient: Coding Level of Care Code 10154 INT INP/OBS CARE MIN Diagnoses Pressure ulcer of right heel, stage 3 L89.613 Thrombocytopenia D69.6 Peripheral arterial disease I73.9 Chronic kidney disease, stage 4 (severe) N18.4 HTN (hypertension) I10 Rheumatoid arthritis, involving unspecified site, unspecified rheumatoid factor presence M06.9 Rheumatoid arthritis location: unspecified site Rheumatoid factor presence: unspecified presence (6) Rheumatoid arthritis Rheumatoid arthritis location: unspecified site Rheumatoid factor presence: unspecified presence Qualified Code(s): M06.9 - Rheumatoid arthritis, unspecified
--- NOTE | 2023-05-14 16:19 | Emergency Department Note ---
Impression & Plan Wound of foot ED Provider Note NAME: SARAH WOLFE AGE: 77 SEX: F : 1945 ARRIVES VIA: Ambulance INFORMANT: Patient, ED PROVIDER(S): James Lynch MD CHIEF COMPLAINT: Right fifth HPI: This is a 77-year-old female with history of CKD, pressure ulcers, chronic venous insufficiency, CHF, MRSA infection, venous stasis of both lower extremities presenting for foot wounds. Patient states that her right heel has a wound that is significantly painful. She follows with wound care and home health nurse. Home health nurse was here yesterday and was dressed yesterday. Today patient notes worsening of her right heel pain. She called home health nurse advised to come to the ER as patient also mentioned he was unable to walk. She feels unsteady on her feet and the pain is preventing her from walking. She is concerned for falling. No fevers, chills, nausea or vomiting ROS: See above HPI for pertinent positives & negatives. A total of 10 systems reviewed and were otherwise negative. PAST MEDICAL HISTORY: See Below PAST SURGICAL HISTORY: See Below FAMILY HISTORY: See Below SOCIAL HISTORY: See Below HOME MEDICATIONS: See Below ALLERGIES: See Below VITALS: See Below PHYSICAL EXAMINATION: General: resting comfortably in no acute distress Head: Normocephalic and atraumatic Eyes: Normal inspection, extraocular muscles intact Ear, nose, throat: Normal external exam Neck: Normal range of motion Respiratory: lungs clear to auscultation bilaterally Cardiovascular: Regular rate/rhythm, no murmur GI: soft, nontender, no guarding or rebound Extremities: Significant swelling/venous stasis of bilateral lower extremities, small ulceration to the right heel, otherwise nontender erythema to bilateral lower extremities Neuro: The patient awake and alert, appropriately conversive, no focal deficits, symmetric faces Skin: Warm, dry, and intact MEDICAL DECISION MAKING: This is a 77-year-old female with with history as above presenting for foot wounds. Patient has what appears to be chronic foot wounds, started on antibiotics in the outpatient setting. Patient notes most difficulty with walking. Patient has significantly swollen feet as well as a small ulceration. Will do x-ray to evaluate for deep space infection however low concern for osteomyelitis. -Patient does pose a risk to send home that she is living by herself and is now having difficulties ambulation -Patient will be admitted for ambulatory dysfunction as well as her chronic venous stasis and new ulcer -X-ray foot as independently interpreted by me does not reveal osteomyelitis or fractures. Follow-up as Differential diagnosis: Cellulitis, diabetic foot wound, low concern for DVT ER treatment provided: See below Diagnostics interpreted by me: ECG: None Cardiac Monitoring: An order was placed for continuous cardiac monitoring. The monitor shows a rate of 68 with sinus rhythm. Laboratory studies: As stated above and show below. Imaging studies: See below. Past Med/Surg History Medical History (Updated 05/17/23 @ 00:26 by James Lynch MD) Vitamin D deficiency Anemia of chronic disease Chronic kidney disease, stage 4 (severe) Elevated troponin level not due myocardial infarction Elevated troponin Cellulitis of left thigh Hypomagnesemia Ulcer with gangrene, limited to breakdown of skin Abscess of left thigh Cellulitis of left thigh Pressure ulcer of upper thigh Bacterial infection due to Pseudomonas Folate deficiency Bacterial infection due to Serratia Septic shock No blood products PER PATIENT REQUEST Cellulitis BILATERAL LEGS AND FEET, INPATIENT [facility] (JULY 2018) Pneumonia AUGUST 2017 Fracture of sacrum BILATERAL. ~2016, PHYSICAL THERAPY. USES WALKER Cancer MELANOMA Anemia Chronic steroid use CKD (chronic kidney disease) stage 3, GFR 30-59 ml/min Obesity HLD (hyperlipidemia) HTN (hypertension) Rheumatoid arthritis Surgical History S/P debridement (11/29/19) Right Thigh wound debridement, sharp, greater than [address] Peter 11/29/2019 S/P JUAN-BSO S/P revision of total hip RIGHT History of colonoscopy History of surgical removal of skin lesion BACK History of cataract surgery BILATERAL History of total hip replacement RIGHT Total knee replacement status BILATERAL Family History Father Non Hodgkin's lymphoma Mother Coronary heart disease Social History (Updated 05/06/23 @ 14:15 by Angely Watters LPN) Smoking Status: Never smoker Second Hand Exposure: No; Do You Dip or Chew Tobacco: No; Hx Alcohol Use: No Hx Substance Use: No Preferred Language: Czech Communication Ability: Effective Visual Impairment: Limited Hearing Ability: Normal 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 Other Information That Helps Us Care for You: No Feels Safe at Home: Yes Safety Concerns: Feels Safe At This Time Diet: regular Physical Activity Frequency: Does not Exercise Do you think of yourself as: straight/heterosexual Gender Identity: Female Assistive Devices: Raised Toilet Seat and Walker Allergies Allergies Allergy/AdvReac Type Severity Reaction Status Date / Time cefadroxil Allergy Intermediate Rash Verified 05/14/23 16:44 Sulfa (Sulfonamide Allergy Intermediate RASH Verified 05/14/23 16:44 Antibiotics) cefepime Allergy Unknown Unknown Verified 05/14/23 16:44 cephalexin [From Keflex] Allergy Unknown Unknown Verified 05/14/23 16:44 levofloxacin [From Levaquin] AdvReac Intermediate rash Verified 05/14/23 16:44 oxycodone AdvReac Mild NAUSEA Verified 05/14/23 16:44 Home Meds Home Medications Medication Instructions Recorded Confirmed leflunomide 10 mg tablet 10 mg PO 3XWK 07/10/20 05/14/23 prednisone 5 mg tablet 5 mg PO QAM 11/16/20 05/14/23 hydroxychloroquine 200 mg tablet 400 mg PO HS 04/18/22 05/14/23 Previous Rx's Medication Instructions Recorded empagliflozin 10 mg tablet 10 mg PO DAILY #30 tabs 05/06/23 (Jardiance) losartan 50 mg tablet 50 mg PO DAILY #30 tabs 05/06/23 gentamicin 0.1 % topical ointment 1 applic topical DAILY 14 days #15 05/11/23 grams linezolid 600 mg tablet 600 mg PO BID 10 days #20 tabs 05/11/23 Results & Data (ED) Vital Signs Vital Signs - 24 hr 05/14/23 10:21 05/14/23 16:10 Temperature 36.5 C Temperature Source Temporal Artery Scan Pulse Rate 79 Pulse Rate [Apical] 60 Respiratory Rate 20 17 Respiratory Effort / Characteristics Non-Labored Spontaneous Non-Labored Spontaneous Respiratory Depth Normal Normal Respiratory Pattern Regular Blood Pressure 161/74 H Blood Pressure [Right Arm] 134/67 Blood Pressure Mean 103 Blood Pressure Mean [Right Arm] 89 Pulse Oximetry 97 100 Oxygen Delivery Method Room Air Room Air Sepsis Recent Fever Within 48 Hours No Sepsis New/Unexplained Change in Mental Status No Sepsis Action Taken by Nursing No Action Required Laboratory Data 05/16/23 06:31 05/16/23 06:31 Lab Results 05/14/23 05/14/23 05/14/23 Range/Units 11:52 15:55 16:23 WBC 5.38 (4.8-10.8) K/ul RBC 3.75 L (4.20-5.40) M/uL Hgb 10.1 L (12.0-16.0) g/dl Hct 33.4 L (37.0-47.0) % MCV 89.1 (80.0-100.0) fL MCH 26.9 (25.0-34.0) pg MCHC 30.2 L (32.0-36.0) g/dL RDW Std Deviation 42.6 (36.4-46.3) fL RDW Coeff of Saadia 13.1 (11.5-14.5) % Plt Count 71 L (130-400) K/uL MPV 10.6 (9.4-12.4) fL Immature Gran % (Auto) 0.4 % Neut % (Auto) 59.0 % Lymph % (Auto) 23.2 % [place] % (Auto) 12.3 % Eos % (Auto) 4.5 % Baso % (Auto) 0.6 % Neut # (Auto) 3.18 (1.40-6.50) K/uL Lymph # (Auto) 1.25 (1.20-3.40) K/uL [place] # (Auto) 0.66 H (0.11-0.59) K/uL Eos # (Auto) 0.24 (0.00-0.50) K/uL Baso # (Auto) 0.03 (0.00-0.20) K/uL Immature Gran # (Auto) 0.02 (0.01-0.20) K/uL ESR 20 (0-30) mm/hr Sodium 143 (136-145) mmol/L Potassium TNP 4.1 Chloride 111 H (98-107) mmol/L Carbon Dioxide 25 (21-32) mmol/L Anion Gap 7 (3-11) BUN 28 H (6-23) mg/dl Creatinine 1.82 H (0.6-1.2) mg/dl Est Cr Clr Drug Dosing Not Reportable Est GFR ( Amer) 30.5 ml/min Est GFR (Non-Af Amer) 26.3 ml/min BUN/Creatinine Ratio 15.4 (10-20) Glucose 88 (70-99(Fasting)) mg/dl Calcium 9.6 (8.6-10.3) mg/dl Total Bilirubin 0.5 (0.2-1.0) mg/dl AST TNP 20 ALT 24 (7-52) U/L Alkaline Phosphatase 135 H (34-104) U/L C-Reactive Protein 2.36 H (0-0.5) mg/dl Total Protein 6.1 (6.0-8.3) gm/dl Albumin 3.9 (3.4-5.0) gm/dl Globulin 2.2 L (2.5-4.0) gm/dl Albumin/Globulin Ratio 1.8 (0.9-2) Procalcitonin 0.06 (0-0.5) ng/ml Administered Medications Heparin Sodium (Porcine) (Heparin Sod 5,000 Unit/0.5 Ml Vial) 5,000 units SQ BID FRANSISCO Stop: 06/13/23 20:59 Last Admin: 05/16/23 19:47 Dose: 5,000 units Documented By: Admin: 05/16/23 09:25 Dose: 5,000 units Documented By: Admin: 05/15/23 20:43 Dose: 5,000 units Documented By: Admin: 05/15/23 07:50 Dose: 5,000 units Documented By: Admin: 05/14/23 21:39 Dose: 5,000 units Documented By: DICK Hydroxychloroquine Sulfate (Hydroxychloroquine Sulfate 200 Mg Tab) 400 mg PO HS FRANSISCO Stop: 06/13/23 20:59 Last Admin: 05/16/23 19:47 Dose: 400 mg Documented By: Admin: 05/15/23 20:43 Dose: 400 mg Documented By: Admin: 05/14/23 21:39 Dose: 400 mg Documented By: DICK Ceftriaxone Sodium 2,000 mg/ (Dextrose) 50 mls @ 100 mls/hr IV Q24H FRANSISCO; Protocol Stop: 05/21/23 17:59 Last Infusion: 05/16/23 19:07 Dose: Infused Documented By: Admin: 05/16/23 18:08 Dose: 100 mls/hr Documented By: Infusion: 05/15/23 18:48 Dose: Infused Documented By: Admin: 05/15/23 18:12 Dose: 100 mls/hr Documented By: Infusion: 05/14/23 19:58 Dose: Infused Documented By: Admin: 05/14/23 18:34 Dose: 100 mls/hr Documented By: NU Leflunomide (Leflunomide 10 Mg Tab) 10 mg PO [id number] [facility]ANSISCO Stop: 06/14/23 08:59 Last Admin: 05/15/23 07:51 Dose: 10 mg Documented By: AMANDA Losartan Potassium (Losartan Potassium 50 Mg Tab) 50 mg PO DAILY [facility] Stop: 06/14/23 08:59 Last Admin: 05/16/23 09:24 Dose: 50 mg Documented By: Admin: 05/15/23 07:50 Dose: 50 mg Documented By: AMANDA Prednisone (Prednisone 5 Mg Tab) 5 mg PO QAM [facility] Stop: 06/14/23 08:59 Last Admin: 05/16/23 09:24 Dose: 5 mg Documented By: Admin: 05/15/23 07:51 Dose: 5 mg Documented By: AMANDA Discontinued Medications Miscellaneous (Patient's Height &/Or Weight Needed) 1 each N/A Q2H [facility] Stop: 05/15/23 01:46 Last Admin: 05/14/23 20:04 Dose: Not Given Documented By: Admin: 05/14/23 19:57 Dose: 1 each Documented By: DICK Imaging Data Radiologist's Impression: Foot X-Ray 05/14/23 15:06 XR foot RT 2V CLINICAL HISTORY: Right foot ulcer. COMPARISON: Right foot radiographs June 27, 2020. FINDINGS: Tarsometatarsal joints are intact. Lateral subluxation of the right first proximal phalanx with respect to the first metatarsal is chronic. There is moderate osteoarthritis at this articulation. There is no acute fracture within the right foot. No radiographic evidence for acute osteomyelitis. Suspected osteopenia. There is moderate vascular calcification. Dorsal midfoot soft tissue swelling is present. IMPRESSION: 1. No acute fracture or evidence for acute osteomyelitis within the right foot. 2. Dorsal midfoot soft tissue swelling. ACT 112: Negative or not required by law. Electronically signed by: Brady Hassan M.D. 05/14/2023 3:51 PM Discharge Plan Visit Data Chief Complaint: Foot Injury/Pain Stated Complaint: R FOOT PAIN ED Provider: James Lynch Discharge Problem: Wound of foot Patient Disposition: Admitted As Inpatient Discharge Instructions Interventions: ED Discharge Assessment Last Done: 05/14/23 17:33
[2023-05-14 16:34] LABS: Potassium 4.1 mmol/L (3.5-5.1)
[2023-05-14 17:52] LABS: C Reactive Protein 2.36 mg/dl (0-0.5)
[2023-05-14] MEDS: cefTRIAXone SODIUM 2,000 MG in DEXTROSE 5 % MINI-B 50 ML IV SCH (18:34)
[2023-05-14] MEDS: Patient's HEIGHT &/or WEIGHT Needed SCH ×2 (19:57→20:04)
[2023-05-14] MEDS: HYDROXYCHLOROQUINE SULFATE 200 MG TAB PO SCH (21:39)
[2023-05-14] MEDS: HEPARIN SOD 5,000 UNIT/0.5 ML VIAL SQ SCH (21:39)
--- NOTE | 2023-05-14 21:41 | Ultrasound Report ---
Exam(s): US ARTERIAL RIGHT LOWER EXTREMITY EXAM: US Duplex Right Lower Extremity Arteries CLINICAL HISTORY: Reason for exam: non healing right ulcer. TECHNIQUE: Real-time duplex ultrasound scan of the right lower extremity arteries integrating B-mode two-dimensional vascular structure, Doppler spectral analysis and color flow Doppler imaging. COMPARISON: No relevant prior studies available. FINDINGS: Right common femoral artery is patent with multiphasic waveforms. No focal elevated velocities. There monophasic waveforms below the level of the right common femoral artery in the right superficial femoral, popliteal, and calf arteries. However, no focal elevated velocities are identified. Soft tissues: Unremarkable. 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 Electronically signed by: Sukhwinder Lynch M.D. 05/14/23 21:39 PM
[2023-05-15 06:24] LABS: Basophils # (auto) 0.01 K/uL (0.00-0.20); Basophils % (auto) 0.4 %; Eosinophils # (auto) 0.14 K/uL (0.00-0.50); Eosinophils % (auto) 5.1 %; Hematocrit (blood only) 29.8 % (37.0-47.0); Hemoglobin 8.8 g/dl (12.0-16.0); Immature Granulocytes # (auto) 0.01 K/uL (0.01-0.20); Immature Granulocytes % (auto) 0.4 %; Lymphocytes # (auto) 0.82 K/uL (1.20-3.40); Lymphocytes % (auto) 30.1 %; Mean Corpuscular Hemoglobin 26.7 pg (25.0-34.0); Mean Corpuscular Hgb Conc 29.5 g/dL (32.0-36.0); Mean Corpuscular Volume 90.6 fL (80.0-100.0); Mean Platelet Volume 10.3 fL (9.4-12.4); Monocytes # (auto) 0.28 K/uL (0.11-0.59); Monocytes % (auto) 10.3 %; Neutrophils # (auto) 1.46 K/uL (1.40-6.50); Neutrophils % (auto) 53.7 %; Platelet Count 63 K/uL (130-400); RDW Coefficient of Variation 13.2 % (11.5-14.5); RDW Standard Deviation 44.1 fL (36.4-46.3); Red Blood Count 3.29 M/uL (4.20-5.40); White Blood Count 2.72 K/ul (4.8-10.8)
[2023-05-15 06:38] LABS: BUN Creatinine Ratio 14.5 (10-20); Bilirubin,Total 0.3 mg/dl (0.2-1.0); Creatinine Clr Calc Pharmacy 29.9 ml/min; Est GFR (African American) 32.7 ml/min; Est GFR (Non-African American) 28.2 ml/min; Globulin 1.5 gm/dl (2.5-4.0); Potassium 4.5 mmol/L (3.5-5.1); Total Protein 4.5 gm/dl (6.0-8.3)
[2023-05-15 06:48] LABS: Partial Thromboplastin Ratio 0.9; Partial Thromboplastin Time 26 Seconds (21-31); Prothrombin Time 10.6 Seconds (9.0-12.0)
[2023-05-15] MEDS: LOSARTAN POTASSIUM 50 MG TAB PO SCH (07:50)
[2023-05-15] MEDS: HEPARIN SOD 5,000 UNIT/0.5 ML VIAL SQ SCH ×2 (07:50→20:43)
[2023-05-15] MEDS: LEFLUNOMIDE 10 MG TAB PO SCH (07:51)
[2023-05-15] MEDS: predniSONE 5 MG TAB PO SCH (07:51)
--- NOTE | 2023-05-15 13:38 | Hospitalist Progress Note ---
Date of Service May 15, 2023 Assessment & Plan (1) Pressure ulcer of right heel, stage 3: Plan: MSSA and Enterobacter cloacae on recent surface culture. Patient on Linezolid (2nd course) as outpatient. No clear reason for MRSA coverage. - Will continue with IV ceftriaxone alone. - Low tolerance to broadening antibiotics if getting worse. No clear surrounding cellulitic changes but she notes the ulcer is getting worse, painful and having more difficulty walking with it now - PT/OT consulted Blood Cultures Pending CRP elevated 2.36 (2) Thrombocytopenia: Plan: Previously decreased in the setting of infection (cellulitis) in October 2019 - no definitive cellulitis although given immunosuppression and prior bacteremia blood cultures and antibiotics given as above. Continue to monitor Hold heparin for Plt < 50 (3) Peripheral arterial disease: Plan: Noted history of this although no arterial dopplers in last year. -LE doppler with monophasic wavesforms sugesitve of hemodynamically sigificant right femoral-popliteral artery disease Spoke with Dr. Block, Cardiology - Recommend BOOKER and possible angiogram Thursday --> Patient refusing BOOKER as she does not feel she has a problem with her blood vessels. Dr. Block made aware and stated he would stop in to see her on Thursday (4) Chronic kidney disease, stage 4 (severe): Plan: At baseline. Continue to monitor Continue losartan Stop Jardiance given increased risk of amputation among SGLT-2 inhibitors (5) HTN (hypertension): Plan: Continue losartan (6) Rheumatoid arthritis: Plan: Continue her usual leflunomide, hydroxychloroquine and prednisone (7) Heart murmur: Plan: Echo done 04/19/2022 with moderate aortic stenosis and mild to moderate tricuspid regurgitation Patient denies any CP or syncope Plan VTE prophylaxis - heparin 5000 units BID (hold for platelets less than 50) Disposition - continued inpatient stay Admission and Anticipated Discharge Date Admission Date: May 14, 2023 Subjective Patient seen sitting up in bed. Reports to me that she came in because she was having difficulty walking and feeling off at home - describes this as dizziness. Reports good PO intake over the past few days. Reports dizziness has resolved since being in the hospital. When discussing her current wounds patient states that her shoes caused the wounds, and her dressings caused her skin changes. I attempted to discuss with her venous stasis and potential vessel disease but patient was insistent that she did not have this. States she has an ablation done on her left leg and that was the worse decision she ever made. She is declining further workup. Also with Heart murmur on exam - patient states shes been told this before and does recall having an echo, but states nothing ever came from it. Review of chart, no prior Murmur docuemented. Review of Systems Review of Systems: All systems reviewed & are unremarkable except as noted in Subjective Physical Exam Physical Exam: General: NAD, VS as above Resp: normal respiratory effort, lungs clear to auscultation CV: 3/6 murmur, Regular rate Abd: normal bowel sounds, non tender, no hepatosplenomegaly Extremities: scaling and erythema on bilateral lower extremities consistent with venous stasis. Dressing not removed from wound on right heal. Neuro: A&O x3, Skin: intact, no lesions noted Results & Data Results & Data Vital Signs (Past 12 Hours) Vital Signs Temp Pulse Resp BP Pulse Ox O2 Del Method 05/15/23 07:09 36.6 C 60 18 120/64 97 Room Air Laboratory Results CBC and chemistry reviewed PG Care Time/CCT Total # of Minutes Spent Total Time Spent with Patient: Total time spent is greater than 50% in coordination of care (as documented) at patient's floor/unit and/or counseling patient: Coding Level of Care Code 93541 SUB INP/OBS CARE 3/50MIN Diagnoses Pressure ulcer of right heel, stage 3 L89.613 Thrombocytopenia D69.6 Peripheral arterial disease I73.9 Chronic kidney disease, stage 4 (severe) N18.4 HTN (hypertension) I10 Rheumatoid arthritis, involving unspecified site, unspecified rheumatoid factor presence M06.9 Rheumatoid arthritis location: unspecified site Rheumatoid factor presence: unspecified presence Heart murmur R01.1 (6) Rheumatoid arthritis Rheumatoid arthritis location: unspecified site Rheumatoid factor presence: unspecified presence Qualified Code(s): M06.9 - Rheumatoid arthritis, unspecified
[2023-05-15] MEDS: cefTRIAXone SODIUM 2,000 MG in DEXTROSE 5 % MINI-B 50 ML IV SCH (18:12)
[2023-05-15] MEDS: HYDROXYCHLOROQUINE SULFATE 200 MG TAB PO SCH (20:43)
[2023-05-16 07:15] LABS: Hematocrit (blood only) 25.2 % (37.0-47.0); Hemoglobin 7.9 g/dl (12.0-16.0); Mean Corpuscular Hemoglobin 27.8 pg (25.0-34.0); Mean Corpuscular Hgb Conc 31.3 g/dL (32.0-36.0); Mean Corpuscular Volume 88.7 fL (80.0-100.0); Mean Platelet Volume 11.4 fL (9.4-12.4); Platelet Count 80 K/uL (130-400); RDW Coefficient of Variation 13.2 % (11.5-14.5); RDW Standard Deviation 42.7 fL (36.4-46.3); Red Blood Count 2.84 M/uL (4.20-5.40)
[2023-05-16 07:39] LABS: BUN Creatinine Ratio 14.9 (10-20); C Reactive Protein 1.94 mg/dl (0-0.5); Calcium 8.5 mg/dl (8.6-10.3); Creatinine Clr Calc Pharmacy 24.8 ml/min; Est GFR (Non-African American) 22.4 ml/min; Potassium 4.4 mmol/L (3.5-5.1)
[2023-05-16 07:45] LABS: Basophils # (auto) 0.01 K/uL (0.00-0.20); Basophils % (auto) 0.3 %; Eosinophils # (auto) 0.13 K/uL (0.00-0.50); Eosinophils % (auto) 3.8 %; Immature Granulocytes # (auto) 0.03 K/uL (0.01-0.20); Immature Granulocytes % (auto) 0.9 %; Lymphocytes # (auto) 0.65 K/uL (1.20-3.40); Lymphocytes % (auto) 19.1 %; Monocytes % (auto) 8.8 %; Neutrophils # (auto) 2.28 K/uL (1.40-6.50); Neutrophils % (auto) 67.1 %; RBC Morphology Unremarkable
[2023-05-16] MEDS: predniSONE 5 MG TAB PO SCH (09:24)
[2023-05-16] MEDS: LOSARTAN POTASSIUM 50 MG TAB PO SCH (09:24)
[2023-05-16] MEDS: HEPARIN SOD 5,000 UNIT/0.5 ML VIAL SQ SCH ×2 (09:25→19:47)
[2023-05-16] MEDS: cefTRIAXone SODIUM 2,000 MG in DEXTROSE 5 % MINI-B 50 ML IV SCH (18:08)
[2023-05-16] MEDS: HYDROXYCHLOROQUINE SULFATE 200 MG TAB PO SCH (19:47)
--- NOTE | 2023-05-16 22:49 | Hospitalist Progress Note ---
Date of Service May 16, 2023 Assessment & Plan (1) Pressure ulcer of right heel, stage 3: Plan: MSSA and Enterobacter cloacae on recent surface culture. Patient on Linezolid (2nd course) as outpatient. No clear reason for MRSA coverage. - Will continue with IV ceftriaxone alone. - Low tolerance to broadening antibiotics if getting worse. No clear surrounding cellulitic changes but she notes the ulcer is getting worse, painful and having more difficulty walking with it now - PT/OT consulted Blood Cultures Pending CRP elevated 2.36 reviewed blood work on 05/16 (2) Thrombocytopenia: Plan: Previously decreased in the setting of infection (cellulitis) in October 2019 - no definitive cellulitis although given immunosuppression and prior bacteremia blood cultures and antibiotics given as above. Continue to monitor Hold heparin for Plt < 50 (3) Peripheral arterial disease: Plan: Noted history of this although no arterial dopplers in last year. -LE doppler with monophasic wavesforms sugesitve of hemodynamically sigificant right femoral-popliteral artery disease Spoke with Dr. Block, Cardiology - Recommend BOOKER and possible angiogram Thursday --> Patient refusing BOOKER as she does not feel she has a problem with her blood vessels. Dr. Block made aware and stated he would stop in to see her on Thursday (4) Chronic kidney disease, stage 4 (severe): Plan: At baseline. Continue to monitor Continue losartan Stop Jardiance given increased risk of amputation among SGLT-2 inhibitors (5) HTN (hypertension): Plan: Continue losartan (6) Rheumatoid arthritis: Plan: Continue her usual leflunomide, hydroxychloroquine and prednisone (7) Heart murmur: Plan: Echo done 04/19/2022 with moderate aortic stenosis and mild to moderate tricuspid regurgitation Patient denies any CP or syncope Plan VTE prophylaxis - heparin 5000 units BID (hold for platelets less than 50) Disposition - continued inpatient stay Admission and Anticipated Discharge Date Admission Date: May 14, 2023 Subjective 77 yo female reports no new symptoms. Review of Systems Review of Systems: All systems reviewed & are unremarkable except as noted in HPI & below Physical Exam Physical Exam: General: NAD, VS as above Resp: normal respiratory effort, lungs clear to auscultation CV: 3/6 murmur, Regular rate Abd: normal bowel sounds, non tender, no hepatosplenomegaly Extremities: scaling and erythema on bilateral lower extremities consistent with venous stasis. Dressing not removed from wound on right heal. Neuro: A&O x3, Skin: intact, no lesions noted Results & Data Results & Data Vital Signs (Past 12 Hours) Vital Signs Temp Pulse Resp BP Pulse Ox O2 Del Method 05/16/23 19:45 36.7 C 68 16 120/71 95 Room Air 05/16/23 14:46 36.7 C 76 16 127/83 95 Room Air PG Care Time/CCT Total # of Minutes Spent Total Time Spent with Patient: Total time spent is greater than 50% in coordination of care (as documented) at patient's floor/unit and/or counseling patient: Coding Level of Care Code 80052 SUB INP/OBS CARE 2/35MIN Diagnoses Pressure ulcer of right heel, stage 3 L89.613 Thrombocytopenia D69.6 Peripheral arterial disease I73.9 Chronic kidney disease, stage 4 (severe) N18.4 HTN (hypertension) I10 Rheumatoid arthritis, involving unspecified site, unspecified rheumatoid factor presence M06.9 Rheumatoid arthritis location: unspecified site Rheumatoid factor presence: unspecified presence Heart murmur R01.1 (6) Rheumatoid arthritis Rheumatoid arthritis location: unspecified site Rheumatoid factor presence: unspecified presence Qualified Code(s): M06.9 - Rheumatoid arthritis, unspecified
[2023-05-17 06:15] LABS: Hematocrit (blood only) 26.8 % (37.0-47.0); Hemoglobin 8.2 g/dl (12.0-16.0); Mean Corpuscular Hemoglobin 27.6 pg (25.0-34.0); Mean Corpuscular Hgb Conc 30.6 g/dL (32.0-36.0); Mean Corpuscular Volume 90.2 fL (80.0-100.0); Platelet Count 97 K/uL (130-400); RDW Coefficient of Variation 13.6 % (11.5-14.5); RDW Standard Deviation 44.8 fL (36.4-46.3); Red Blood Count 2.97 M/uL (4.20-5.40); White Blood Count 3.95 K/ul (4.8-10.8)
[2023-05-17 06:27] LABS: Calcium 8.3 mg/dl (8.6-10.3); Creatinine Clr Calc Pharmacy 27.4 ml/min; Est GFR (African American) 29.3 ml/min; Est GFR (Non-African American) 25.3 ml/min; Potassium 4.6 mmol/L (3.5-5.1)
[2023-05-17] MEDS: LOSARTAN POTASSIUM 50 MG TAB PO SCH (08:43)
[2023-05-17] MEDS: predniSONE 5 MG TAB PO SCH (08:43)
[2023-05-17] MEDS: HEPARIN SOD 5,000 UNIT/0.5 ML VIAL SQ SCH ×2 (08:44→21:13)
[2023-05-17] MEDS: cefTRIAXone SODIUM 2,000 MG in DEXTROSE 5 % MINI-B 50 ML IV SCH (17:40)
[2023-05-17] MEDS: HYDROXYCHLOROQUINE SULFATE 200 MG TAB PO SCH (21:13)
--- NOTE | 2023-05-17 23:05 | Hospitalist Progress Note ---
Date of Service May 17, 2023 Assessment & Plan (1) Pressure ulcer of right heel, stage 3: Plan: MSSA and Enterobacter cloacae on recent surface culture. Patient on Linezolid (2nd course) as outpatient. No clear reason for MRSA coverage. - Will continue with IV ceftriaxone alone. - Low tolerance to broadening antibiotics if getting worse. No clear surrounding cellulitic changes but she notes the ulcer is getting worse, painful and having more difficulty walking with it now - PT/OT consulted Blood Cultures Pending CRP elevated 2.36 improving now below 2 reviewed blood work on 05/17 (2) Thrombocytopenia: Plan: Previously decreased in the setting of infection (cellulitis) in October 2019 - no definitive cellulitis although given immunosuppression and prior bacteremia blood cultures and antibiotics given as above. Continue to monitor Hold heparin for Plt < 50 (3) Peripheral arterial disease: Plan: Noted history of this although no arterial dopplers in last year. -LE doppler with monophasic wavesforms sugesitve of hemodynamically sigificant right femoral-popliteral artery disease Spoke with Dr. Block, Cardiology - Recommend BOOKER and possible angiogram Thursday --> Patient refusing BOOKER as she does not feel she has a problem with her blood vessels. Dr. Block made aware and stated he would stop in to see her on Thursday (4) Chronic kidney disease, stage 4 (severe): Plan: At baseline. Continue to monitor Continue losartan Stop Jardiance given increased risk of amputation among SGLT-2 inhibitors (5) HTN (hypertension): Plan: Continue losartan (6) Rheumatoid arthritis: Plan: Continue her usual leflunomide, hydroxychloroquine and prednisone (7) Heart murmur: Plan: Echo done 04/19/2022 with moderate aortic stenosis and mild to moderate tricuspid regurgitation Patient denies any CP or syncope Plan VTE prophylaxis - heparin 5000 units BID (hold for platelets less than 50) Disposition - continued inpatient stay Admission and Anticipated Discharge Date Admission Date: May 14, 2023 Subjective Patient reports no new symptoms. Physical Exam Physical Exam: General: NAD, VS as above Resp: normal respiratory effort, lungs clear to auscultation CV: 3/6 murmur, Regular rate Abd: normal bowel sounds, non tender, no hepatosplenomegaly Extremities: scaling and erythema on bilateral lower extremities consistent with venous stasis. Dressing not removed from wound on right heal. Neuro: A&O x3, Skin: intact, no lesions noted Results & Data Results & Data Vital Signs (Past 12 Hours) Vital Signs Temp Pulse Resp BP Pulse Ox O2 Del Method 05/17/23 20:39 36.8 C 75 18 98/64 L 96 Room Air 05/17/23 15:12 36.6 C 68 16 107/62 97 Room Air PG Care Time/CCT Total # of Minutes Spent Total Time Spent with Patient: Total time spent is greater than 50% in coordination of care (as documented) at patient's floor/unit and/or counseling patient: Coding Level of Care Code 13642 SUB INP/OBS CARE 2/35MIN Diagnoses Pressure ulcer of right heel, stage 3 L89.613 Thrombocytopenia D69.6 Peripheral arterial disease I73.9 Chronic kidney disease, stage 4 (severe) N18.4 HTN (hypertension) I10 Rheumatoid arthritis, involving unspecified site, unspecified rheumatoid factor presence M06.9 Rheumatoid arthritis location: unspecified site Rheumatoid factor presence: unspecified presence Heart murmur R01.1 (6) Rheumatoid arthritis Rheumatoid arthritis location: unspecified site Rheumatoid factor presence: unspecified presence Qualified Code(s): M06.9 - Rheumatoid arthritis, unspecified
[2023-05-18 06:30] LABS: Hematocrit (blood only) 28.7 % (37.0-47.0); Hemoglobin 8.7 g/dl (12.0-16.0); Mean Corpuscular Hemoglobin 27.4 pg (25.0-34.0); Mean Corpuscular Hgb Conc 30.3 g/dL (32.0-36.0); Mean Corpuscular Volume 90.5 fL (80.0-100.0); Mean Platelet Volume 11.3 fL (9.4-12.4); Platelet Count 126 K/uL (130-400); RDW Coefficient of Variation 13.8 % (11.5-14.5); RDW Standard Deviation 45.5 fL (36.4-46.3); Red Blood Count 3.17 M/uL (4.20-5.40); White Blood Count 4.87 K/ul (4.8-10.8)
[2023-05-18 06:39] LABS: BUN Creatinine Ratio 15.1 (10-20); Calcium 8.5 mg/dl (8.6-10.3); Creatinine Clr Calc Pharmacy 23.6 ml/min; Est GFR (African American) 24.5 ml/min; Est GFR (Non-African American) 21.2 ml/min; Potassium 4.7 mmol/L (3.5-5.1)
[2023-05-18] MEDS: LEFLUNOMIDE 10 MG TAB PO SCH (07:36)
[2023-05-18] MEDS: LOSARTAN POTASSIUM 50 MG TAB PO SCH (07:36)
[2023-05-18] MEDS: predniSONE 5 MG TAB PO SCH (07:36)
[2023-05-18] MEDS: HEPARIN SOD 5,000 UNIT/0.5 ML VIAL SQ SCH ×2 (07:36→19:44)
[2023-05-18] MEDS: cefTRIAXone SODIUM 2,000 MG in DEXTROSE 5 % MINI-B 50 ML IV SCH (17:34)
[2023-05-18] MEDS: HYDROXYCHLOROQUINE SULFATE 200 MG TAB PO SCH (19:44)
--- NOTE | 2023-05-18 22:29 | Hospitalist Progress Note ---
Date of Service May 18, 2023 Assessment & Plan (1) Pressure ulcer of right heel, stage 3: Plan: MSSA and Enterobacter cloacae on recent surface culture. Patient on Linezolid (2nd course) as outpatient. No clear reason for MRSA coverage. - Will continue with IV ceftriaxone alone. - Low tolerance to broadening antibiotics if getting worse. No clear surrounding cellulitic changes but she notes the ulcer is getting worse, painful and having more difficulty walking with it now - PT/OT consulted Blood Cultures Pending CRP elevated 2.36 improving now below 2 reviewed blood work on 05/18 Will complete 5 days of IV antibiotics. (2) Thrombocytopenia: Plan: Previously decreased in the setting of infection (cellulitis) in October 2019 - no definitive cellulitis although given immunosuppression and prior bacteremia blood cultures and antibiotics given as above. Continue to monitor Hold heparin for Plt < 50 (3) Peripheral arterial disease: Plan: Noted history of this although no arterial dopplers in last year. -LE doppler with monophasic wavesforms sugesitve of hemodynamically sigificant right femoral-popliteral artery disease Spoke with Dr. Block, Cardiology - Recommend BOOKER and possible angiogram Thursday --> Patient refusing BOOKER as she does not feel she has a problem with her blood vessels. Dr. Block made aware and stated he would stop in to see her on Thursday (4) Chronic kidney disease, stage 4 (severe): Plan: At baseline. Continue to monitor Continue losartan Stop Jardiance given increased risk of amputation among SGLT-2 inhibitors (5) HTN (hypertension): Plan: Continue losartan (6) Rheumatoid arthritis: Plan: Continue her usual leflunomide, hydroxychloroquine and prednisone (7) Heart murmur: Plan: Echo done 04/19/2022 with moderate aortic stenosis and mild to moderate tricuspid regurgitation Patient denies any CP or syncope Plan VTE prophylaxis - heparin 5000 units BID (hold for platelets less than 50) Disposition - continued inpatient stay Admission and Anticipated Discharge Date Admission Date: May 14, 2023 Subjective Patient reports no new symptoms. Review of Systems Review of Systems: All systems reviewed & are unremarkable except as noted in HPI & below Physical Exam Physical Exam: General: NAD, VS as above Resp: normal respiratory effort, lungs clear to auscultation CV: 3/6 murmur, Regular rate Abd: normal bowel sounds, non tender, no hepatosplenomegaly Extremities: scaling and erythema on bilateral lower extremities consistent with venous stasis. Dressing not removed from wound on right heal. Neuro: A&O x3, Skin: intact, no lesions noted Results & Data Results & Data Vital Signs (Past 12 Hours) Vital Signs Temp Pulse Resp BP BP Pulse Ox O2 Del Method 05/18/23 19:38 36.4 C L 71 14 119/71 98 Room Air 05/18/23 15:09 36.8 C 80 17 119/57 L 95 Room Air PG Care Time/CCT Total # of Minutes Spent Total Time Spent with Patient: Total time spent is greater than 50% in coordination of care (as documented) at patient's floor/unit and/or counseling patient: Coding Level of Care Code 09511 SUB INP/OBS CARE 2/35MIN Diagnoses Pressure ulcer of right heel, stage 3 L89.613 Thrombocytopenia D69.6 Peripheral arterial disease I73.9 Chronic kidney disease, stage 4 (severe) N18.4 HTN (hypertension) I10 Rheumatoid arthritis, involving unspecified site, unspecified rheumatoid factor presence M06.9 Rheumatoid arthritis location: unspecified site Rheumatoid factor presence: unspecified presence Heart murmur R01.1 (6) Rheumatoid arthritis Rheumatoid arthritis location: unspecified site Rheumatoid factor presence: unspecified presence Qualified Code(s): M06.9 - Rheumatoid arthritis, unspecified
[2023-05-19 06:46] LABS: Hematocrit (blood only) 29.1 % (37.0-47.0); Hemoglobin 8.7 g/dl (12.0-16.0); Mean Corpuscular Hemoglobin 27.3 pg (25.0-34.0); Mean Corpuscular Hgb Conc 29.9 g/dL (32.0-36.0); Mean Corpuscular Volume 91.2 fL (80.0-100.0); Platelet Count 128 K/uL (130-400); RDW Coefficient of Variation 13.9 % (11.5-14.5); RDW Standard Deviation 46.3 fL (36.4-46.3); Red Blood Count 3.19 M/uL (4.20-5.40); White Blood Count 4.58 K/ul (4.8-10.8)
[2023-05-19 07:08] LABS: BUN Creatinine Ratio 16.8 (10-20); Calcium 8.5 mg/dl (8.6-10.3); Creatinine Clr Calc Pharmacy 24.8 ml/min; Est GFR (Non-African American) 22.4 ml/min; Potassium 4.3 mmol/L (3.5-5.1)
[2023-05-19] MEDS: LOSARTAN POTASSIUM 50 MG TAB PO SCH (08:48)
[2023-05-19] MEDS: predniSONE 5 MG TAB PO SCH (08:48)
[2023-05-19] MEDS: HEPARIN SOD 5,000 UNIT/0.5 ML VIAL SQ SCH (08:50)
--- NOTE | 2023-05-19 13:59 | Discharge Summary ---
Date of Service May 19, 2023 Admission HPI Per Admitting Provider Dona Villalpando is a 77-year-old female who presents to the ER due to difficulty walking on her right foot. She has known b/l lower extremity wounds and follows with the wound clinic, most recently on her second course of linezolid for her right heel ulcer becoming larger and more painful over the last week and especially the last few days. She notes difficulty in ambulation but is unclear whether this is because of her foot ulcer, difficulty balancing or lightheadedness and feels it is a combination of all three. No new one sided weakness, change in vision, hearing or speech. She notes her rheumatoid arthritis is well controlled on her current regimen. Most recent surface wound culture with MSSA and Enterobacter cloacae from May 08. Most recent bacteremia is when I saw her in 2020 with pseudomonas stuzeri - suspected source of cellulitis at that time. She currently denies any fever or chills. Principal Diagnosis pressure ulcer of right heel, stage 3 Discharge Exam General: NAD, VS as above Resp: normal respiratory effort, lungs clear to auscultation CV: 3/6 murmur, Regular rate Abd: normal bowel sounds, non tender, no hepatosplenomegaly Extremities: scaling and erythema on bilateral lower extremities consistent with venous stasis. Dressing not removed from wound on right heal. Neuro: A&O x3, Skin: intact, no lesions noted Discharge Data Allergies Allergy/AdvReac Type Severity Reaction Status Date / Time cefadroxil Allergy Intermediate Rash Verified 05/14/23 16:44 Sulfa (Sulfonamide Allergy Intermediate RASH Verified 05/14/23 16:44 Antibiotics) cefepime Allergy Unknown Unknown Verified 05/14/23 16:44 cephalexin [From Keflex] Allergy Unknown Unknown Verified 05/14/23 16:44 levofloxacin [From Levaquin] AdvReac Intermediate rash Verified 05/14/23 16:44 oxycodone AdvReac Mild NAUSEA Verified 05/14/23 16:44 Ordered Studies 05/14/23 16:27 US arterial duplex LE RT Stat Hospital Course (1) Pressure ulcer of right heel, stage 3: MSSA and Enterobacter cloacae on recent surface culture. Patient on Linezolid (2nd course) as outpatient. No clear reason for MRSA coverage. - Will continue with IV ceftriaxone alone. - Low tolerance to broadening antibiotics if getting worse. No clear surrounding cellulitic changes but she notes the ulcer is getting worse, painful and having more difficulty walking with it now - PT/OT consulted Blood Cultures Pending CRP elevated 2.36 improving now below 2 reviewed blood work prior to discharge completed 5 days of IV antibiotics. Patient refusing rehab. (2) Thrombocytopenia: Previously decreased in the setting of infection (cellulitis) in October 2019 - no definitive cellulitis although given immunosuppression and prior bacteremia blood cultures and antibiotics given as above. Continue to monitor Hold heparin for Plt < 50 (3) Peripheral arterial disease: Noted history of this although no arterial dopplers in last year. -LE doppler with monophasic wavesforms sugesitve of hemodynamically sigificant right femoral-popliteral artery disease Spoke with Dr. Block, Cardiology -Non intervention recommended at this time. -ok to wrap extremities (4) Chronic kidney disease, stage 4 (severe): At baseline. Continue to monitor Continue losartan Stop Jardiance given increased risk of amputation among SGLT-2 inhibitors (5) HTN (hypertension): Continue losartan (6) Rheumatoid arthritis: Continue her usual leflunomide, hydroxychloroquine and prednisone (7) Heart murmur: Echo done 04/19/2022 with moderate aortic stenosis and mild to moderate tricuspid regurgitation Patient denies any CP or syncope Total Time Total Time Spent Total Time Spent (In Minutes): 32 Discharge Plan Discharge Items Patient Disposition: Home - Home Health Services Reason For Visit: NON HEALING PRESSURE ULCER, AMBULATORY DYSFUNCTION Discharge Diagnosis: non healing pressure ulcer Activity: Resume your previous activity Non-emergency contact: Primary Care Provider Call non-emergency contact if: you have any medication questions Follow-up/Referrals: Ashley Peña DO, FACEP [Physician] - 05/22/23 9:30 am Svetlana Rosales CRNP [Primary Care Provider] - 05/21/23 10:25 am Diet: Regular Addtl Attending Provider Instructions: Please continue previous wound care. Please followup with wound care within a week. Pending Studies at Discharge: No Stand-Alone Forms: My [employer], Smoking Cessation Medications and DC Order Prescriptions: Continued leflunomide 10 mg tablet 10 mg PO [id number] Rx Instructions: 05/14/23 : PT REPORTS SHE TAKES THIS MED EVERY THURSDAY/THURSDAY/& DENISE. linezolid 600 mg tablet 600 mg PO BID 10 Days Qty: 20 0RF Rx Instructions: BEGIN 05/11/23 X 10 DAYS. gentamicin 0.1 % ointment 1 applic topical DAILY 14 Days Qty: 15 0RF losartan 50 mg tablet 50 mg PO DAILY Qty: 30 2RF prednisone 5 mg tablet 5 mg PO QAM hydroxychloroquine 200 mg tablet 400 mg PO HS Discontinued Jardiance 10 mg tablet 10 mg PO DAILY Qty: 30 2RF Rx Instructions: 05/14/23 : PT REPORTS THIS MED WAS PRESCRIBED BUT SHE IS NOT TAKING IT. Discharge Orders: Discharge Order (Routine); Ordered 05/19/23 Ordered By: Azael Weaver Admission Data Admit Date/Time: 05/14/23 16:41 Attending Provider: Azael Weaver Admit Provider: Osvaldo Middleton Primary Care Provider: Svetlana Rosales Other Providers: Arthur,Home Care Other Interventions: Discharge Summary Assessment (RN) Last Done: 05/19/23 13:49 Coding Level of Care Code 53063 INP/OBS DISCH >30 MIN Diagnoses Pressure ulcer of right heel, stage 3 L89.613 Thrombocytopenia D69.6 Peripheral arterial disease I73.9 Chronic kidney disease, stage 4 (severe) N18.4 HTN (hypertension) I10 Rheumatoid arthritis, involving unspecified site, unspecified rheumatoid factor presence M06.9 Rheumatoid arthritis location: unspecified site Rheumatoid factor presence: unspecified presence Heart murmur R01.1
--- NOTE | 2023-05-20 11:38 | Hospitalist Consultation ---
Date of Consultation May 20, 2023 Assessment & Plan (1) Pressure ulcer of right heel, stage 3: MSSA and Enterobacter cloacae on recent surface culture. Patient on Linezolid (2nd course) as outpatient. No clear reason for MRSA coverage. - Will continue with IV ceftriaxone alone. - Low tolerance to broadening antibiotics if getting worse. No clear surrounding cellulitic changes but she notes the ulcer is getting worse, painful and having more difficulty walking with it now - PT/OT consulted Blood Cultures Pending CRP elevated 2.36 improving now below 2 reviewed blood work prior to discharge completed 5 days of IV antibiotics. Patient refusing rehab. (2) Thrombocytopenia: Previously decreased in the setting of infection (cellulitis) in October 2019 - no definitive cellulitis although given immunosuppression and prior bacteremia blood cultures and antibiotics given as above. Continue to monitor Hold heparin for Plt < 50 (3) Peripheral arterial disease: Noted history of this although no arterial dopplers in last year. -LE doppler with monophasic wavesforms sugesitve of hemodynamically sigificant right femoral-popliteral artery disease Spoke with Dr. Block, Cardiology -Non intervention recommended at this time. -ok to wrap extremities (4) Chronic kidney disease, stage 4 (severe): At baseline. Continue to monitor Continue losartan Stop Jardiance given increased risk of amputation among SGLT-2 inhibitors (5) HTN (hypertension): Continue losartan (6) Rheumatoid arthritis: Continue her usual leflunomide, hydroxychloroquine and prednisone (7) Heart murmur: Echo done 04/19/2022 with moderate aortic stenosis and mild to moderate tricuspid regurgitation Patient denies any CP or syncope History of Present Illness Attending Physician: Azael Weaver Allergies Allergy/AdvReac Type Severity Reaction Status Date / Time cefadroxil Allergy Intermediate Rash Verified 05/14/23 16:44 Sulfa (Sulfonamide Allergy Intermediate RASH Verified 05/14/23 16:44 Antibiotics) cefepime Allergy Unknown Unknown Verified 05/14/23 16:44 cephalexin [From Keflex] Allergy Unknown Unknown Verified 05/14/23 16:44 levofloxacin [From Levaquin] AdvReac Intermediate rash Verified 05/14/23 16:44 oxycodone AdvReac Mild NAUSEA Verified 05/14/23 16:44 Home Medications Medication Instructions Recorded Confirmed Type leflunomide 10 mg tablet 10 mg PO 3XWK 07/10/20 05/14/23 History prednisone 5 mg tablet 5 mg PO QAM 11/16/20 05/14/23 History hydroxychloroquine 200 mg tablet 400 mg PO HS 04/18/22 05/14/23 History losartan 50 mg tablet 50 mg PO DAILY #30 tabs 05/06/23 05/14/23 Rx gentamicin 0.1 % topical ointment 1 applic topical DAILY 14 days #15 05/11/23 05/14/23 Rx grams linezolid 600 mg tablet 600 mg PO BID 10 days #20 tabs 05/11/23 05/14/23 Rx Patient History Medical History (Updated 05/20/23 @ 10:48 by Luan Bray DO) Vitamin D deficiency Anemia of chronic disease Chronic kidney disease, stage 4 (severe) Elevated troponin level not due myocardial infarction Elevated troponin Cellulitis of left thigh Hypomagnesemia Ulcer with gangrene, limited to breakdown of skin Abscess of left thigh Cellulitis of left thigh Pressure ulcer of upper thigh Bacterial infection due to Pseudomonas Folate deficiency Bacterial infection due to Serratia Septic shock No blood products PER PATIENT REQUEST Cellulitis BILATERAL LEGS AND FEET, INPATIENT [facility] (JULY 2018) Pneumonia AUGUST 2017 Fracture of sacrum BILATERAL. ~2016, PHYSICAL THERAPY. USES WALKER Cancer MELANOMA Anemia Chronic steroid use CKD (chronic kidney disease) stage 3, GFR 30-59 ml/min Obesity HLD (hyperlipidemia) HTN (hypertension) Rheumatoid arthritis Surgical History S/P debridement (11/29/19) Right Thigh wound debridement, sharp, greater than [address] Peter 11/29/2019 S/P JUAN-BSO S/P revision of total hip RIGHT History of colonoscopy History of surgical removal of skin lesion BACK History of cataract surgery BILATERAL History of total hip replacement RIGHT Total knee replacement status BILATERAL Family History Father Non Hodgkin's lymphoma Mother Coronary heart disease Social History (Updated 05/06/23 @ 14:15 by Angely Watters LPN) Smoking Status: Unknown if ever smoked Second Hand Exposure: No; Do You Dip or Chew Tobacco: No; Hx Alcohol Use: No Hx Substance Use: No Preferred Language: Panamanian Communication Ability: Effective Visual Impairment: Limited Hearing Ability: Normal Patient Liaison Required: No Beliefs That Will Affect Care: None marital status: Single Current Living Situation: Alone Current Living Situation Comment: lives at home, brother and niece help when needed. 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 Feels Safe at Home: Yes Diet: regular Physical Activity Frequency: Does not Exercise Do you think of yourself as: straight/heterosexual Gender Identity: Female Assistive Devices: Raised Toilet Seat and Walker PG Care Time/CCT Total # of Minutes Spent Total Time Spent with Patient: Total time spent is greater than 50% in coordination of care (as documented) at patient's floor/unit and/or counseling patient: Coding Diagnoses Pressure ulcer of right heel, stage 3 L89.613 Thrombocytopenia D69.6 Peripheral arterial disease I73.9 Chronic kidney disease, stage 4 (severe) N18.4 HTN (hypertension) I10 Rheumatoid arthritis, involving unspecified site, unspecified rheumatoid factor presence M06.9 Rheumatoid arthritis location: unspecified site Rheumatoid factor presence: unspecified presence Heart murmur R01.1 (6) Rheumatoid arthritis Rheumatoid arthritis location: unspecified site Rheumatoid factor presence: unspecified presence Qualified Code(s): M06.9 - Rheumatoid arthritis, unspecified
== END 2023-05-19 14:15 | disposition home health service (06) | DRG 593 ==
LOC: ED 10:11 → SUATTDRO 16:41 → EDINP 16:41 → 3E 17:33

== ENCOUNTER 2023-05-20 06:40 | Observation (INO) ==
--- NOTE | 2023-05-20 06:57 | Emergency Department Note ---
Impression & Plan Fall, Weakness ED Provider Note NAME: SARAH WOLFE AGE: 77 SEX: F : 1945 ARRIVES VIA: Ambulance INFORMANT: Patient ED PROVIDER(S): Luan Bray DO CHIEF COMPLAINT: swelling and drainage of LLE HPI: Patient is a 77-year-old female who presents the ER for swelling and drainage from her left lower extremity. She was just recently admitted and discharged and placed on initially linezolid and Rocephin per wound on her lower extremities. She notes that her legs just swelled up when she got home and started draining. She denies any headache or change in vision. No chest pain or shortness of breath. No nausea vomiting or diarrhea. No dysuria urgency or frequency. She denies any history of heart failure. She denies any diuretics. She also admits that she has a rash throughout her body. It is not itchy. ADDITIONAL HISTORY OBTAINED: Per HPI Chronic Medical/Social Conditions Affecting Care: Per HPI PAST MEDICAL HISTORY:See Below PAST SURGICAL HISTORY:See Below FAMILY HISTORY:See Below SOCIAL HISTORY:See Below HOME MEDICATIONS:See Below ALLERGIES:See Below VITALS:See Below PHYSICAL EXAMINATION: GENERAL: Sitting up in bed, alert, well appearing, well nourished, no distress, non-toxic EYE EXAM: normal conjunctiva. PERRL and EOM's grossly intact. OROPHARYNX: no exudate, no erythema, lips, buccal mucosa, and tongue normal and mucous membranes are moist NECK: supple, no nuchal rigidity, no adenopathy, non-tender LUNGS: Clear to auscultation. Normal chest wall mechanics HEART: no murmurs, S1 normal and S2 normal ABDOMEN: abdomen soft, non-tender, normo-active bowel sounds, no masses, no rebound or guarding. BACK: Back is symmetrical on inspection and there is no deformity, no midline tenderness, no CVA tenderness. SKIN: Erythematous rash throughout the upper chest and extremities. Blanching. Negative Kolsky. No petechiae. No oral involvement. UPPER EXTREMITIES: upper extremities are grossly normal. LOWER EXTREMITIES: Pitting edema in the lower extremities with the left larger than right. Ulcer on the right heel. Skin breakdown right mid sanchez with no significant surrounding erythema. NEURO EXAM: Normal sensorium, cranial nerves II-XII grossly intact, normal speech, no gross weakness of arms, no gross weakness of legs. MEDICAL DECISION MAKING: Patient is a 77-year-old female who presents ER for weakness and was just discharged from the hospital about 12 hours ago. She notes that she lowered herself to the ground as she was feeling too weak. She denies all other complaints with the exception of her left leg leaking. IV was established blood work was obtained. Labs show no significant leukocytosis and a mild anemia 10.3. BMP with creatinine 1.89 which is improved from previous. LFTs bilirubin was unremarkable. Troponin was elevated at 39. BMP was unremarkable. Lipase was normal. No pain from the fall as she lowered self to the ground. Duplex left lower extremity was negative. I discussed the case with the hospitalist Dr. Azael Lilly who just saw the patient and discharged her yesterday. He evaluated her and recommended discharge as she did not want to go to rehab. On repeat evaluation she changed her mind and would like to go to rehab. I read discussed the case with him and Dr. Mccann patient will be admitted for further workup. Patient was discussed with the care managers and I did review with Alexa and they do believe they would have a bed tomorrow for her. Consults/Care Managements Discussions: Per [facility] Triage Nursing notes reviewed. Limited review of prior medical records performed Vital Signs: reviewed and remarkable for no significant abnormalities Differential diagnosis: DVT, musculoskeletal, infection, joint effusion, trauma, lymphedema, idiopathic, CHF, as well as other pathologies. ER treatment provided: See below Diagnostics interpreted by me include EKG and cardiac monitoring as listed below: -Cardiac Monitoring: An order was placed for continuous cardiac monitoring. The monitor shows a rate of 80 with sinus rhythm. -ECG: none -Laboratory studies:Interpreted by me as stated above in MDM and shown below. Imaging studies: Xrays: As interpreted by me: Portable AP upright 1 view of the chest shows no focal CTs show: none Venous duplex of the left lower extremity was negative Procedures:none Critical Care: None Past Med/Surg History Medical History (Updated 05/20/23 @ 10:48 by Luan Bray DO) Vitamin D deficiency Anemia of chronic disease Chronic kidney disease, stage 4 (severe) Elevated troponin level not due myocardial infarction Elevated troponin Cellulitis of left thigh Hypomagnesemia Ulcer with gangrene, limited to breakdown of skin Abscess of left thigh Cellulitis of left thigh Pressure ulcer of upper thigh Bacterial infection due to Pseudomonas Folate deficiency Bacterial infection due to Serratia Septic shock No blood products PER PATIENT REQUEST Cellulitis BILATERAL LEGS AND FEET, INPATIENT [facility] (JULY 2018) Pneumonia AUGUST 2017 Fracture of sacrum BILATERAL. ~2016, PHYSICAL THERAPY. USES WALKER Cancer MELANOMA Anemia Chronic steroid use CKD (chronic kidney disease) stage 3, GFR 30-59 ml/min Obesity HLD (hyperlipidemia) HTN (hypertension) Rheumatoid arthritis Surgical History S/P debridement (11/29/19) Right Thigh wound debridement, sharp, greater than [address] Peter 11/29/2019 S/P JUAN-BSO S/P revision of total hip RIGHT History of colonoscopy History of surgical removal of skin lesion BACK History of cataract surgery BILATERAL History of total hip replacement RIGHT Total knee replacement status BILATERAL Family History Father Non Hodgkin's lymphoma Mother Coronary heart disease Social History (Updated 05/06/23 @ 14:15 by Angely Watters LPN) Smoking Status: Unknown if ever smoked Second Hand Exposure: No; Do You Dip or Chew Tobacco: No; Hx Alcohol Use: No Hx Substance Use: No Preferred Language: Korean Communication Ability: Effective Visual Impairment: Limited Hearing Ability: Normal [employer] Required: No Beliefs That Will Affect Care: None marital status: Single Current Living Situation: Alone Current Living Situation Comment: lives at home, brother and niece help when needed. 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 Feels Safe at Home: Yes Diet: regular Physical Activity Frequency: Does not Exercise Do you think of yourself as: straight/heterosexual Gender Identity: Female Assistive Devices: Raised Toilet Seat and Walker Allergies Allergies Allergy/AdvReac Type Severity Reaction Status Date / Time cefadroxil Allergy Intermediate Rash Verified 05/14/23 16:44 Sulfa (Sulfonamide Allergy Intermediate RASH Verified 05/14/23 16:44 Antibiotics) cefepime Allergy Unknown Unknown Verified 05/14/23 16:44 cephalexin [From Keflex] Allergy Unknown Unknown Verified 05/14/23 16:44 levofloxacin [From Levaquin] AdvReac Intermediate rash Verified 05/14/23 16:44 oxycodone AdvReac Mild NAUSEA Verified 05/14/23 16:44 Home Meds Home Medications Medication Instructions Recorded Confirmed leflunomide 10 mg tablet 10 mg PO 3XWK 07/10/20 05/14/23 prednisone 5 mg tablet 5 mg PO QAM 11/16/20 05/14/23 hydroxychloroquine 200 mg tablet 400 mg PO HS 04/18/22 05/14/23 Previous Rx's Medication Instructions Recorded losartan 50 mg tablet 50 mg PO DAILY #30 tabs 05/06/23 gentamicin 0.1 % topical ointment 1 applic topical DAILY 14 days #15 05/11/23 grams linezolid 600 mg tablet 600 mg PO BID 10 days #20 tabs 05/11/23 Results & Data (ED) Vital Signs Vital Signs - 24 hr 05/20/23 06:51 05/20/23 07:02 05/20/23 07:10 Temperature Temperature Source Pulse Rate 96 H 92 H 92 H Pulse Rate from SpO2 Sensor Pulse Rhythm Regular Respiratory Rate 20 20 Blood Pressure 132/88 Blood Pressure Mean 102 Pulse Oximetry 96 96 Oxygen Delivery Method Room Air Room Air Sepsis Recent Fever Within 48 Hours No Sepsis New/Unexplained Change in Mental Status N/A Sepsis Action Taken by Nursing No Action Required 05/20/23 08:08 05/20/23 09:06 05/20/23 09:10 Temperature 36.4 C L Temperature Source Oral Pulse Rate 82 72 Pulse Rate from SpO2 Sensor 73 Pulse Rhythm Respiratory Rate 20 17 Blood Pressure 116/53 L 132/62 Blood Pressure Mean 74 85 Pulse Oximetry 97 99 Oxygen Delivery Method Room Air Sepsis Recent Fever Within 48 Hours Sepsis New/Unexplained Change in Mental Status Sepsis Action Taken by Nursing 05/20/23 10:16 05/20/23 12:00 05/20/23 12:30 Temperature Temperature Source Pulse Rate 75 81 77 Pulse Rate from SpO2 Sensor 73 Pulse Rhythm Respiratory Rate 17 17 16 Blood Pressure 121/92 166/79 H Blood Pressure Mean 101 108 Pulse Oximetry 100 Oxygen Delivery Method Sepsis Recent Fever Within 48 Hours Sepsis New/Unexplained Change in Mental Status Sepsis Action Taken by Nursing Laboratory Data 05/20/23 07:09 05/20/23 07:09 Lab Results 05/20/23 Range/Units 07:09 WBC 7.25 (4.8-10.8) K/ul RBC 3.80 L (4.20-5.40) M/uL Hgb 10.3 L (12.0-16.0) g/dl Hct 34.9 L (37.0-47.0) % MCV 91.8 (80.0-100.0) fL MCH 27.1 (25.0-34.0) pg MCHC 29.5 L (32.0-36.0) g/dL RDW Std Deviation 47.2 H (36.4-46.3) fL RDW Coeff of Saadia 14.1 (11.5-14.5) % Plt Count 164 (130-400) K/uL MPV 11.4 (9.4-12.4) fL Immature Gran % (Auto) 0.3 % Neut % (Auto) 79.5 % Lymph % (Auto) 6.6 % [place] % (Auto) 6.1 % Eos % (Auto) 7.2 % Baso % (Auto) 0.3 % Neut # (Auto) 5.77 (1.40-6.50) K/uL Lymph # (Auto) 0.48 L (1.20-3.40) K/uL [place] # (Auto) 0.44 (0.11-0.59) K/uL Eos # (Auto) 0.52 H (0.00-0.50) K/uL Baso # (Auto) 0.02 (0.00-0.20) K/uL Immature Gran # (Auto) 0.02 (0.01-0.20) K/uL Polychromasia 1+ Sodium 143 (136-145) mmol/L Potassium 4.3 (3.5-5.1) mmol/L Chloride 113 H (98-107) mmol/L Carbon Dioxide 22 (21-32) mmol/L Anion Gap 8 (3-11) BUN 38 H (6-23) mg/dl Creatinine 1.89 H (0.6-1.2) mg/dl Est Cr Clr Drug Dosing 27.4 ml/min Est GFR ( Amer) 29.1 ml/min Est GFR (Non-Af Amer) 25.2 ml/min BUN/Creatinine Ratio 20.1 H (10-20) Glucose 89 (70-99(Fasting)) mg/dl Calcium 9.3 (8.6-10.3) mg/dl Total Bilirubin 0.4 (0.2-1.0) mg/dl AST 23 (13-39) U/L ALT 36 (7-52) U/L Alkaline Phosphatase 146 H (34-104) U/L Troponin I High Sens 39.3 H (0-14) pg/ml B-Natriuretic Peptide 70 (0-100) pg/ml Total Protein 5.5 L (6.0-8.3) gm/dl Albumin 3.4 (3.4-5.0) gm/dl Globulin 2.1 L (2.5-4.0) gm/dl Albumin/Globulin Ratio 1.6 (0.9-2) Lipase 18 (11-82) U/L Imaging Data Radiologist's Impression: Chest X-Ray 05/20/23 06:53 XR chest 1V portable CLINICAL HISTORY: swelling in leg TECHNIQUE: Single frontal radiograph of the chest was obtained. Comparison: Comparison is made to chest radiograph 01/23/2023 FINDINGS: No lines and tubes are seen. Calcified aortic knob is seen. The lungs are clear. Previously noted left perihilar opacity. No evidence of pleural effusion or pneumothorax. IMPRESSION: No acute chest disease. ACT 112: Negative or not required by law. Electronically signed by: Angel Sky M.D. 05/20/2023 7:48 AM Venous Doppler Study 05/20/23 06:53 US venous doppler LE CLINICAL HISTORY: lle swelling TECHNIQUE: Left lower extremity real-time compression venous ultrasound with Color Doppler imaging. Utilizing real-time ultrasonic imaging multiple real time high-resolution ultrasonic images with compression and noncompression maneuvers of the deep venous system in addition to color doppler imaging were performed from the common femoral vein through the proximal calf veins. COMPARISON: Comparison is made to left lower extremity 11/13/2020 FINDINGS/IMPRESSION: Currently there is normal compressibility of the deep venous system from the common femoral vein through the proximal calf veins. Soft tissue edema is seen in the calf limiting evaluation of the calf veins. ACT 112: Negative or not required by law. Electronically signed by: Angel Sky M.D. 05/20/2023 8:45 AM Discharge Plan Visit Data Chief Complaint: Fall Stated Complaint: Fall, Edema in Legs ED Provider: Luan Bray Discharge Problem: Fall, Weakness Discharge Instructions Krames/Other Patient Handouts: ED Weakness with Uncertain Cause Activity Restrictions/Additional Instructions: Please follow up with your primary care doctor or if you are a student, [facility] with in the next 24 hours. Any worsening of your symptoms, please return to the ED immediately. This includes any fevers greater than 100.4, worsening pain, chest pain, shortness breath, persistent nausea, vomiting, unable to eat or drink, or any other concerning signs or symptoms from your standpoint. You were found to have a blood pressure greater than 120 systolic over 90 diastolic. Due to the new Medicare guidelines, we are now recommending that you follow up with your primary care doctor in regards to this elevated blood pressure. We recommended admission and placement to a rehab facility but you declined. If you change mind at any point please return to the ER Forms Stand Alone Forms: My [facility] Prescriptions Prescriptions: No Action leflunomide 10 mg tablet 10 mg PO 3XWK Rx Instructions: 05/14/23 : PT REPORTS SHE TAKES THIS MED EVERY THURSDAY/THURSDAY/& THURSDAY. linezolid 600 mg tablet 600 mg PO BID 10 Days Qty: 20 0RF Rx Instructions: BEGIN 05/11/23 X 10 DAYS. gentamicin 0.1 % ointment 1 applic topical DAILY 14 Days Qty: 15 0RF losartan 50 mg tablet 50 mg PO DAILY Qty: 30 2RF prednisone 5 mg tablet 5 mg PO QAM hydroxychloroquine 200 mg tablet 400 mg PO HS Referrals Referrals: Svetlana Rosales CRNP [Primary Care Provider] - Amara Liu [place] [Non-Staff] - Discharge Problem: Fall Qualifiers: Encounter type: initial encounter Qualified Code(s): W19.XXXA - Unspecified fall, initial encounter
[2023-05-20 07:47] LABS: Albumin Globulin Ratio 1.6 (0.9-2); Albumin Level 3.4 gm/dl (3.4-5.0); BUN Creatinine Ratio 20.1 (10-20); Bilirubin,Total 0.4 mg/dl (0.2-1.0); Calcium 9.3 mg/dl (8.6-10.3); Creatinine Clr Calc Pharmacy 27.4 ml/min; Est GFR (African American) 29.1 ml/min; Est GFR (Non-African American) 25.2 ml/min; Globulin 2.1 gm/dl (2.5-4.0); Potassium 4.3 mmol/L (3.5-5.1); Total Protein 5.5 gm/dl (6.0-8.3)
--- NOTE | 2023-05-20 07:49 | XRay Report ---
XR chest 1V portable CLINICAL HISTORY: swelling in leg TECHNIQUE: Single frontal radiograph of the chest was obtained. Comparison: Comparison is made to chest radiograph 01/23/2023 FINDINGS: No lines and tubes are seen. Calcified aortic knob is seen. The lungs are clear. Previously noted lef t perihilar opacity. No evidence of pleural effusion or pneumothorax. IMPRESSION: No acute chest disease. ACT 112: Negative or not required by law. Electronically signed by: Angel Sky M.D. 05/20/2023 7:48 AM
[2023-05-20 07:52] LABS: Troponin I High Sensitivity 39.3 pg/ml (0-14)
[2023-05-20 07:53] LABS: Hematocrit (blood only) 34.9 % (37.0-47.0); Hemoglobin 10.3 g/dl (12.0-16.0); Mean Corpuscular Hemoglobin 27.1 pg (25.0-34.0); Mean Corpuscular Hgb Conc 29.5 g/dL (32.0-36.0); Mean Corpuscular Volume 91.8 fL (80.0-100.0); Mean Platelet Volume 11.4 fL (9.4-12.4); Platelet Count 164 K/uL (130-400); RDW Coefficient of Variation 14.1 % (11.5-14.5); RDW Standard Deviation 47.2 fL (36.4-46.3); White Blood Count 7.25 K/ul (4.8-10.8)
[2023-05-20 07:54] LABS: Basophils # (auto) 0.02 K/uL (0.00-0.20); Basophils % (auto) 0.3 %; Eosinophils # (auto) 0.52 K/uL (0.00-0.50); Eosinophils % (auto) 7.2 %; Immature Granulocytes # (auto) 0.02 K/uL (0.01-0.20); Immature Granulocytes % (auto) 0.3 %; Lymphocytes # (auto) 0.48 K/uL (1.20-3.40); Lymphocytes % (auto) 6.6 %; Monocytes # (auto) 0.44 K/uL (0.11-0.59); Monocytes % (auto) 6.1 %; Neutrophils # (auto) 5.77 K/uL (1.40-6.50); Neutrophils % (auto) 79.5 %; Polychromasia 1+
--- NOTE | 2023-05-20 08:48 | Ultrasound Report ---
US venous doppler LE LT CLINICAL HISTORY: lle swelling TECHNIQUE: Left lower extremity real-time compression venous ultrasound with Color Doppler imaging. U tilizing real-time ultrasonic imaging multiple real time high-resolution ultrasonic images with compr ession and noncompression maneuvers of the deep venous system in addition to color doppler imaging we re performed from the common femoral vein through the proximal calf veins. COMPARISON: Comparison is made to left lower extremity 11/13/2020 FINDINGS/IMPRESSION: Currently there is normal compressibility of the deep venous system from the common femoral vein thro ugh the proximal calf veins. Soft tissue edema is seen in the calf limiting evaluation of the calf v eins. ACT 112: Negative or not required by law. Electronically signed by: Angel Sky M.D. 05/20/2023 8:45 AM
--- NOTE | 2023-05-20 15:12 | Electrocardiogram Report ---
Test Reason : Blood Pressure : / mmHG Vent. Rate : 087 BPM Atrial Rate : 087 BPM P-R Int : 162 ms QRS Dur : 094 ms QT Int : 388 ms P-R-T Axes : 039 -33 047 degrees QTc Int : 466 ms Normal sinus rhythm Left axis deviation Minimal voltage criteria for LVH, may be normal variant ( R in aVL ) Cannot rule out Anterior infarct , age undetermined Abnormal ECG When compared with ECG of 19-APR-2022 12:30, No significant change was found Confirmed by Marquis Mendoza ([id number]) on 05/20/2023 3:12:27 PM Referred By: REFERRED SELF Confirmed By:Marquis Mendoza
[2023-05-20] MEDS ORDERED: ACETAMINOPHEN 325 MG TAB PO PRN (17:26)
--- NOTE | 2023-05-20 18:36 | History & Physical Report ---
Date of Service May 20, 2023 Assessment & Plan (1) Fall: Plan: Patient is very weak likely multifactorial Her chronic lymphedema is playing a large role. (2) Pressure ulcer of right heel, stage 3: Plan: MSSA and Enterobacter cloacae on recent surface culture. Patient on Linezolid (2nd course) as outpatient. No clear reason for MRSA coverage. - completed 5 days of IV antibiotics. - Low tolerance to broadening antibiotics if getting worse. No current signs of cellulitis - going to [facility] (3) Chronic kidney disease, stage 4 (severe): Plan: At baseline. Continue losartan Stop Jardiance given increased risk of amputation among SGLT-2 inhibitors (4) Weakness: Plan: will need short term rehab at [facility] Admission and Anticipated Discharge Date Admission Date: May 20, 2023 History of Present Illness Chief Complaint: Fall Primary Care Provider: KARI Coughlin Dona Villalpando is a 77-year-old female who presents to the ER due to a fall at home and weeping of her left leg. Patient reports she had clumped down to the floor. She has known b/l lower extremity wounds and follows with the wound clinic, most recently was admitted and treated with rocephin for possible cellultis, which she receivd about 5 days worth. Patient reports she does not follow with a lymphedema clinic. She notes difficulty in ambulation but is unclear whether this is because of her foot ulcer, difficulty balancing or lightheadedness and feels it is a combination of all three. No new one sided weakness, change in vision, hearing or speech. She notes her rheumatoid arthritis is well controlled on her current regimen. Most recent surface wound culture with MSSA and Enterobacter cloacae from May 08. Most recent bacteremia is when I saw her in 2020 with pseudomonas stuzeri - suspected source of cellulitis at that time. She currently denies any fever or chills. Explained to patient that she will need rehab. Patient was very adamant she did not want it and understood risks of going home. Initially she refused and was going to be discharged as she had no signs of infection, and would benefit to a rehab stay vs admitting for chronic lymphedema which could put her at risk of a hospital acquired infection. Patient finally agreed to short rehab stay at [facility]. Allergies Allergy/AdvReac Type Severity Reaction Status Date / Time cefadroxil Allergy Intermediate Rash Verified 05/14/23 16:44 Sulfa (Sulfonamide Allergy Intermediate RASH Verified 05/14/23 16:44 Antibiotics) cefepime Allergy Unknown Unknown Verified 05/14/23 16:44 cephalexin [From Keflex] Allergy Unknown Unknown Verified 05/14/23 16:44 levofloxacin [From Levaquin] AdvReac Intermediate rash Verified 05/14/23 16:44 oxycodone AdvReac Mild NAUSEA Verified 05/14/23 16:44 Home Medications Medication Instructions Recorded Confirmed Type leflunomide 10 mg tablet 10 mg PO 3XWK 07/10/20 05/20/23 History prednisone 5 mg tablet 5 mg PO QAM 11/16/20 05/20/23 History hydroxychloroquine 200 mg tablet 400 mg PO HS 04/18/22 05/20/23 History losartan 50 mg tablet 50 mg PO DAILY #30 tabs 05/06/23 05/20/23 Rx gentamicin 0.1 % topical ointment 1 applic topical DAILY 14 days #15 05/11/23 05/20/23 Rx grams linezolid 600 mg tablet 600 mg PO BID 10 days #20 tabs 05/11/23 05/20/23 Rx Past Med/Surg History Medical History Vitamin D deficiency Anemia of chronic disease Chronic kidney disease, stage 4 (severe) Elevated troponin level not due myocardial infarction Elevated troponin Cellulitis of left thigh Hypomagnesemia Ulcer with gangrene, limited to breakdown of skin Abscess of left thigh Cellulitis of left thigh Pressure ulcer of upper thigh Bacterial infection due to Pseudomonas Folate deficiency Bacterial infection due to Serratia Septic shock No blood products PER PATIENT REQUEST Cellulitis BILATERAL LEGS AND FEET, INPATIENT [facility] (JULY 2018) Pneumonia AUGUST 2017 Fracture of sacrum BILATERAL. ~2017, PHYSICAL THERAPY. USES WALKER Cancer MELANOMA Anemia Chronic steroid use CKD (chronic kidney disease) stage 3, GFR 30-59 ml/min Obesity HLD (hyperlipidemia) HTN (hypertension) Rheumatoid arthritis Surgical History S/P debridement (11/29/19) Right Thigh wound debridement, sharp, greater than [address] Peter 11/29/2019 S/P JUAN-BSO S/P revision of total hip RIGHT History of colonoscopy History of surgical removal of skin lesion BACK History of cataract surgery BILATERAL History of total hip replacement RIGHT Total knee replacement status BILATERAL Family History Father Non Hodgkin's lymphoma Mother Coronary heart disease Social History Smoking Status: Never smoker Second Hand Exposure: No; Do You Dip or Chew Tobacco: No; Hx Alcohol Use: No Hx Substance Use: No Preferred Language: Bahraini Communication Ability: Effective Visual Impairment: Limited Hearing Ability: Normal Plasterer Tender Required: No Beliefs That Will Affect Care: None marital status: Single Current Living Situation: Alone Current Living Situation Comment: Home alone with HH current occupational status: retired 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 Other Information That Helps Us Care for You: No Feels Safe at Home: No Is there a partner from a previous relationship who is making you feel unsafe now?: No Any Concerns about Your Family Situation: No Would You Like to Speak to Someone About Your Situation: No Safety Concerns: Afraid for Self Diet: regular Physical Activity Frequency: Does not Exercise Do you think of yourself as: straight/heterosexual Gender Identity: Female Assistive Devices: Glasses, Special Shoe and Walker Assistive Devices Comment: Bl special shoe Review of Systems Review of Systems: All systems reviewed & are unremarkable except as noted in HPI & below Physical Exam Physical Exam: Constitutional: WD/WN, vitals as above Eyes: + anicteric sclerae; normal pupil size ENMT: external ear and nose normal, oropharynx normal Respiratory: normal respiratory effort, lungs clear to auscultation Cardiovascular: Rate/Rhythm: regular rate and regular rhythm Heart Sounds: no murmur Extremities: normal capillary refill and + pedal edema (3+ b/l equal to thighs); no calf tenderness Gastrointestinal (Abdomen): normal bowel sounds, soft, nontender, no hepatosplenomegaly Skin: Bilateral leg showing signs of venous stasis sparing the dorsal aspect of both feet with swelling but without warmth. Right heel ulcer is most prominent wound approximately 1cm circumference with mild surrounding erythema but no definitive cellulitic changes Neurologic: moves all extremities and awake; not confused Psychiatric: A+Ox3, euthymic affect Results & Data Results & Data Vital Signs (Past 12 Hours) Vital Signs Temp Pulse Pulse Pulse Resp BP BP 01/31/24 17:45 36.7 C 72 17 125/76 05/20/23 16:00 66 18 100/61 05/20/23 14:01 70 13 138/55 L 05/20/23 13:29 78 16 143/80 H 05/20/23 12:30 77 16 05/20/23 12:00 81 17 166/79 H 05/20/23 10:16 75 17 121/92 05/20/23 09:10 72 17 132/62 05/20/23 09:06 36.4 C L 05/20/23 08:08 82 20 116/53 L 05/20/23 07:10 92 H 20 05/20/23 07:02 92 H 05/20/23 06:51 96 H 20 132/88 Pulse Ox O2 Del Method 05/20/23 17:45 100 Room Air 05/20/23 16:00 97 05/20/23 14:01 98 05/20/23 13:29 98 Room Air 05/20/23 12:30 05/20/23 12:00 05/20/23 10:16 100 05/20/23 09:10 99 05/20/23 09:06 05/20/23 08:08 97 Room Air 05/20/23 07:10 96 Room Air 05/20/23 07:02 05/20/23 06:51 96 Room Air Code Status & VTE Plan VTE Prophylaxis Plan VTE Prophylaxis will be ordered: Yes PG Care Time/CCT Total # of Minutes Spent Total Time Spent with Patient: Total time spent is greater than 50% in coordination of care (as documented) at patient's floor/unit and/or counseling patient: Coding Level of Care Code 41552 INT INP/OBS CARE 3/75MIN Diagnoses Fall W19.XXXA Encounter type: initial encounter Pressure ulcer of right heel, stage 3 L89.613 Chronic kidney disease, stage 4 (severe) N18.4 Weakness R53.1 (1) Fall Encounter type: initial encounter Qualified Code(s): W19.XXXA - Unspecified fall, initial encounter
[2023-05-20] MEDS: HEPARIN SOD 5,000 UNIT/0.5 ML VIAL SQ SCH (20:24)
[2023-05-20] MEDS: HYDROXYCHLOROQUINE SULFATE 200 MG TAB PO SCH (20:24)
[2023-05-21 06:37] LABS: Basophils # (auto) 0.02 K/uL (0.00-0.20); Basophils % (auto) 0.3 %; Eosinophils # (auto) 0.54 K/uL (0.00-0.50); Eosinophils % (auto) 8.8 %; Hematocrit (blood only) 28.5 % (37.0-47.0); Hemoglobin 8.6 g/dl (12.0-16.0); Immature Granulocytes # (auto) 0.01 K/uL (0.01-0.20); Immature Granulocytes % (auto) 0.2 %; Lymphocytes # (auto) 0.74 K/uL (1.20-3.40); Mean Corpuscular Hemoglobin 27.5 pg (25.0-34.0); Mean Corpuscular Hgb Conc 30.2 g/dL (32.0-36.0); Mean Corpuscular Volume 91.1 fL (80.0-100.0); Mean Platelet Volume 10.8 fL (9.4-12.4); Monocytes # (auto) 0.26 K/uL (0.11-0.59); Monocytes % (auto) 4.2 %; Neutrophils # (auto) 4.58 K/uL (1.40-6.50); Neutrophils % (auto) 74.5 %; Platelet Count 167 K/uL (130-400); RDW Coefficient of Variation 14.2 % (11.5-14.5); RDW Standard Deviation 47.1 fL (36.4-46.3); Red Blood Count 3.13 M/uL (4.20-5.40); White Blood Count 6.15 K/ul (4.8-10.8)
[2023-05-21 07:07] LABS: BUN Creatinine Ratio 24.4 (10-20); Calcium 8.6 mg/dl (8.6-10.3); Creatinine Clr Calc Pharmacy 30.9 ml/min; Est GFR (African American) 33.6 ml/min; Potassium 4.4 mmol/L (3.5-5.1)
[2023-05-21] MEDS: LOSARTAN POTASSIUM 50 MG TAB PO SCH (09:24)
[2023-05-21] MEDS: HEPARIN SOD 5,000 UNIT/0.5 ML VIAL SQ SCH ×2 (09:24→21:59)
[2023-05-21] MEDS: predniSONE 5 MG TAB PO SCH (09:24)
--- NOTE | 2023-05-21 11:36 | Hospitalist Progress Note ---
Date of Service May 21, 2023 Assessment & Plan (1) Fall: Plan: Patient is very weak likely multifactorial Her chronic lymphedema is playing a large role. Was recommended to go to rehab last admission, but patient declined. Agreeable now PT/OT Case management following - [facility] likely can accept 2/2 (2) Hand edema: Plan: Right hand - Without pain or erythema, non pitting - RN noticed the morning of 05/21 -Plan for Ice and elevation, can use cornelia wrap for compression if needed -Suspect related to fall or her venous stasis, will continue to monitor. Low suspicion for DVT (3) Pressure ulcer of right heel, stage 3: Plan: MSSA and Enterobacter cloacae on recent surface culture. Patient completed 2 courses of Linezolid as outpatient and 5 day course of Ceftriaxone last admission. No current signs of cellulitis (4) Chronic kidney disease, stage 4 (severe): Plan: At baseline. Continue losartan Stop Jardiance given increased risk of amputation among SGLT-2 inhibitors (5) Weakness: Plan: PT/OT - will likely need short term rehab at [facility] Plan Dispo: continued inpatient stay while pending placement DVT proh: Heparin Admission and Anticipated Discharge Date Admission Date: May 20, 2023 Subjective Patient lying in bed, complains about being in the heart health diet. Denies pain. Reports lowered herself to the ground, did not fall, was not laying on any certain area. Noticed swelling in her right hand - reports this is new for her. No pain or redness. does have an IV site in her right AC but states this has not been used, RN confirms this. Review of Systems Review of Systems: All systems reviewed & are unremarkable except as noted in Subjective Physical Exam Physical Exam: General: NAD, VS as above Resp: normal respiratory effort, lungs clear to auscultation CV: 3/6 murmur, Regular rate Abd: normal bowel sounds, non tender, no hepatosplenomegaly Extremities: b/l Le extremities wrapped in cornelia wraps, not removed. Right hand with non pitting edema, no erythema. Neuro: A&O x3, Results & Data Results & Data Vital Signs (Past 12 Hours) Vital Signs Temp Pulse Resp BP Pulse Ox O2 Del Method 05/21/23 07:16 36.8 C 71 18 112/65 94 Room Air Laboratory Results CBC and chemistry reviewed PG Care Time/CCT Total # of Minutes Spent Total Time Spent with Patient: Total time spent is greater than 50% in coordination of care (as documented) at patient's floor/unit and/or counseling patient: Coding Level of Care Code 09152 SUB INP/OBS CARE 2/35MIN Diagnoses Fall W19.XXXA Encounter type: initial encounter Hand edema R60.0 Pressure ulcer of right heel, stage 3 L89.613 Chronic kidney disease, stage 4 (severe) N18.4 Weakness R53.1 (1) Fall Encounter type: initial encounter Qualified Code(s): W19.XXXA - Unspecified fall, initial encounter
[2023-05-21] MEDS: HYDROXYCHLOROQUINE SULFATE 200 MG TAB PO SCH (22:00)
[2023-05-22 06:31] LABS: Basophils # (auto) 0.01 K/uL (0.00-0.20); Basophils % (auto) 0.2 %; Eosinophils # (auto) 0.52 K/uL (0.00-0.50); Eosinophils % (auto) 9.9 %; Hematocrit (blood only) 25.1 % (37.0-47.0); Hemoglobin 7.6 g/dl (12.0-16.0); Immature Granulocytes # (auto) 0.02 K/uL (0.01-0.20); Immature Granulocytes % (auto) 0.4 %; Mean Corpuscular Hemoglobin 27.2 pg (25.0-34.0); Mean Corpuscular Hgb Conc 30.3 g/dL (32.0-36.0); Mean Platelet Volume 10.6 fL (9.4-12.4); Monocytes # (auto) 0.29 K/uL (0.11-0.59); Monocytes % (auto) 5.5 %; Neutrophils # (auto) 3.29 K/uL (1.40-6.50); Platelet Count 165 K/uL (130-400); RDW Coefficient of Variation 14.1 % (11.5-14.5); RDW Standard Deviation 45.8 fL (36.4-46.3); Red Blood Count 2.79 M/uL (4.20-5.40); White Blood Count 5.23 K/ul (4.8-10.8)
[2023-05-22 06:45] LABS: Calcium 8.4 mg/dl (8.6-10.3); Creatinine Clr Calc Pharmacy 27.1 ml/min; Est GFR (African American) 28.8 ml/min; Est GFR (Non-African American) 24.8 ml/min; Potassium 4.4 mmol/L (3.5-5.1)
[2023-05-22 06:52] LABS: Ovalocytes 1+
[2023-05-22] MEDS: predniSONE 5 MG TAB PO SCH (08:57)
[2023-05-22] MEDS: LOSARTAN POTASSIUM 50 MG TAB PO SCH (08:57)
[2023-05-22] MEDS: HEPARIN SOD 5,000 UNIT/0.5 ML VIAL SQ SCH ×2 (08:57→22:28)
[2023-05-22] MEDS ORDERED: LEFLUNOMIDE 10 MG TAB PO SCH (09:00)
[2023-05-22 09:28] LABS: Ferritin 162.8 ng/ml (8-388)
--- NOTE | 2023-05-22 14:04 | Hospitalist Progress Note ---
Date of Service May 22, 2023 Assessment & Plan (1) Fall: Plan: Patient is very weak likely multifactorial Her chronic lymphedema is playing a large role. Was recommended to go to rehab last admission, but patient declined. Agreeable now PT/OT Case management following - planning for [facility], awaiting insurance auth (2) Hand edema: Plan: Right hand - Without pain or erythema, non pitting - RN noticed the morning of 05/21 -Plan for Ice and elevation, can use cornelia wrap for compression if needed -Suspect related to fall or her venous stasis, will continue to monitor. Low suspicion for DVT (3) Pressure ulcer of right heel, stage 3: Plan: MSSA and Enterobacter cloacae on recent surface culture. Patient completed 2 cou rses of Linezolid as outpatient and 5 day course of Ceftriaxone last admission. No current signs of cellulitis (4) Chronic kidney disease, stage 4 (severe): Plan: At baseline. Continue losartan Stop Jardiance given increased risk of amputation among SGLT-2 inhibitors - patient states she does NOT take this (5) Weakness: Plan: PT/OT - will likely need short term rehab at [facility] (6) Anemia of chronic disease: Plan: Baseline hgb~[address] Armijo Iron studies check - WNL Pt denies light headedness or dizziness Plan Dispo: continued inpatient stay while pending placement DVT proh: Heparin Admission and Anticipated Discharge Date Admission Date: May 20, 2023 Subjective Patient lying in bed, does state that she has been out of bed today. Does not recall hx of anemia - but anemia of chronic disease listed on diagnosis. Moving bowels. No acute concerns. Review of Systems Review of Systems: All systems reviewed & are unremarkable except as noted in Subjective Physical Exam Physical Exam: General: NAD, VS as above Resp: normal respiratory effort, lungs clear to auscultation CV: 3/6 murmur, Regular rate Abd: normal bowel sounds, non tender, no hepatosplenomegaly Extremities: b/l Le extremities wrapped in cornelia wraps, not removed. Right hand edema improving, continues without erythema. Neuro: A&O x3, Results & Data Results & Data Vital Signs (Past 12 Hours) Vital Signs Temp Pulse Resp BP Pulse Ox O2 Del Method 05/22/23 11:53 36.3 C L 66 16 118/84 99 Room Air 05/22/23 08:12 36.5 C 70 17 110/72 95 Room Air Laboratory Results CBC and chemistry reviewed PG Care Time/CCT Total # of Minutes Spent Total Time Spent with Patient: Total time spent is greater than 50% in coordination of care (as documented) at patient's floor/unit and/or counseling patient: Coding Level of Care Code 85135 SUB INP/OBS CARE 2/35MIN Diagnoses Fall W19.XXXA Encounter type: initial encounter Hand edema R60.0 Pressure ulcer of right heel, stage 3 L89.613 Chronic kidney disease, stage 4 (severe) N18.4 Weakness R53.1 Anemia of chronic disease D63.8 (1) Fall Encounter type: initial encounter Qualified Code(s): W19.XXXA - Unspecified fall, initial encounter
[2023-05-22] MEDS: HYDROXYCHLOROQUINE SULFATE 200 MG TAB PO SCH (22:28)
[2023-05-23 06:30] LABS: Basophils # (auto) 0.02 K/uL (0.00-0.20); Basophils % (auto) 0.3 %; Eosinophils # (auto) 0.68 K/uL (0.00-0.50); Eosinophils % (auto) 11.2 %; Hematocrit (blood only) 30.3 % (37.0-47.0); Hemoglobin 8.9 g/dl (12.0-16.0); Immature Granulocytes # (auto) 0.03 K/uL (0.01-0.20); Immature Granulocytes % (auto) 0.5 %; Lymphocytes # (auto) 1.39 K/uL (1.20-3.40); Mean Corpuscular Hemoglobin 27.1 pg (25.0-34.0); Mean Corpuscular Hgb Conc 29.4 g/dL (32.0-36.0); Mean Corpuscular Volume 92.1 fL (80.0-100.0); Mean Platelet Volume 10.6 fL (9.4-12.4); Monocytes # (auto) 0.35 K/uL (0.11-0.59); Monocytes % (auto) 5.8 %; Neutrophils # (auto) 3.58 K/uL (1.40-6.50); Neutrophils % (auto) 59.2 %; Platelet Count 195 K/uL (130-400); RDW Coefficient of Variation 14.2 % (11.5-14.5); RDW Standard Deviation 47.6 fL (36.4-46.3); Red Blood Count 3.29 M/uL (4.20-5.40); White Blood Count 6.05 K/ul (4.8-10.8)
[2023-05-23 06:43] LABS: Calcium 8.5 mg/dl (8.6-10.3); Potassium 4.9 mmol/L (3.5-5.1)
[2023-05-23 06:49] LABS: BUN Creatinine Ratio 22.8 (10-20); Creatinine Clr Calc Pharmacy 25.7 ml/min; Est GFR (African American) 26.9 ml/min; Est GFR (Non-African American) 23.2 ml/min
[2023-05-23] MEDS: LOSARTAN POTASSIUM 50 MG TAB PO SCH (08:48)
[2023-05-23] MEDS: predniSONE 5 MG TAB PO SCH (08:48)
[2023-05-23] MEDS: HEPARIN SOD 5,000 UNIT/0.5 ML VIAL SQ SCH (08:49)
--- NOTE | 2023-05-23 09:42 | Discharge Summary ---
Discharge Summary Date of Service May 23, 2023 Notes For Next Care Provider Patient reported she is not taking her Jardiance anemia of chronic disease - ? candidate for erythropoiesis stimulating agent Patient discharge to rehab at [facility] - suspect patient may need home health or other services at discharge from rehab to prevent hospital readmissions Medication Changes From Visit stopped Jardiance - pt not taking No antibioitcs Admission HPI Per Admitting Provider Dona Villalpando is a 77-year-old female who presents to the ER due to a fall at home and weeping of her left leg. Patient reports she had clumped down to the floor. She has known b/l lower extremity wounds and follows with the wound clinic, most recently was admitted and treated with rocephin for possible cellultis, which she receivd about 5 days worth. Patient reports she does not follow with a lymphedema clinic. She notes difficulty in ambulation but is unclear whether this is because of her foot ulcer, difficulty balancing or lightheadedness and feels it is a combination of all three. No new one sided weakness, change in vision, hearing or speech. She notes her rheumatoid arthritis is well controlled on her current regimen. Most recent surface wound culture with MSSA and Enterobacter cloacae from May 08. Most recent bacteremia is when I saw her in 2020 with pseudomonas stuzeri - suspected source of cellulitis at that time. She currently denies any fever or chills. Explained to patient that she will need rehab. Patient was very adamant she did not want it and understood risks of going home. Initially she refused and was going to be discharged as she had no signs of infection, and would benefit to a rehab stay vs admitting for chronic lymphedema which could put her at risk of a hospital acquired infection. Patient finally agreed to short rehab stay at [facility]. Principal Dx & Hospital Course #1 = Principal Diagnosis (1) Fall: Patient is very weak likely multifactorial Her chronic lymphedema is playing a large role. Was recommended to go to rehab last admission (last week), but patient declined. Agreeable now PT/OT Case management following - planning for [facility], discharge today (2) Hand edema: Right hand - Without pain or erythema, non pitting - RN noticed the morning of 05/21 - improved with ice and elevation --> would continue this -Suspect related to fall or her venous stasis (3) Pressure ulcer of right heel, stage 3: MSSA and Enterobacter cloacae on recent surface culture. Patient completed 2 courses of Linezolid as outpatient and 5 day course of Ceftriaxone last admission. No current signs of cellulitis Discharged without antibiotics. Follow with wound care after discharge from [facility] (4) Chronic kidney disease, stage 4 (severe): At baseline. Continue losartan Stopped Jardiance - patient states she does NOT take this (5) Weakness: PT/OT - will likely need short term rehab at [facility] (6) Anemia of chronic disease: Baseline hgb~[address] Armijo - ? candidate for Epoetin Iron studies check - WNL Pt denies light headedness or dizziness Plan Dispo: discharge to [facility] for rehab Discharge Exam General: NAD, VS as above Resp: normal respiratory effort, lungs clear to auscultation CV: 3/6 murmur, Regular rate Abd: normal bowel sounds, non tender, no hepatosplenomegaly Extremities: b/l Le extremities with skin changes c/w chronic venous stasis, scaling. No signs of infection. Dressing over right heel wound not removed, wound picture reviewed. Right hand edema improving, continues without erythema. Neuro: A&O x3, Updated Medication List Medication Instructions Recorded Confirmed Type leflunomide 10 mg tablet 10 mg PO 3XWK 07/10/20 05/20/23 History prednisone 5 mg tablet 5 mg PO QAM 11/16/20 05/20/23 History hydroxychloroquine 200 mg tablet 400 mg PO HS 04/18/22 05/20/23 History losartan 50 mg tablet 50 mg PO DAILY #30 tabs 05/06/23 05/20/23 Rx gentamicin 0.1 % topical ointment 1 applic topical DAILY 14 days #15 05/11/23 05/20/23 Rx grams Hospital Stay Data Consultations 05/20/23 09:06 ED Decision to Admit Stat Diagnostic Imagining Performed 05/20/23 06:53 US venous doppler LE LT Stat Pending Results Patient Have Any Pending Studies at Discharge: No Discharge Instructions Given to Patient (Per Discharging Provider) Ms. Kwasi grayson were hospitalized after being to weak to take care of yourself at home. During this admission we did not find any new causes of your weakness. You need to go to rehab and get stronger, you will be going to [facility]. We discussed you lymphedema - which is likely contributing to swelling in your right arm/hand. Recommend ice and elevation to this arm. Your legs do not have signs of infection, you are no longer on antibiotics. Continue wound care follow up when you leave [facility]. We also discussed your anemia of chronic disease. We checked your iron studies while you were here and these were normal. You can discuss medication with your junior software engineer to help with this. No change to your home medications. Total Time Total Time Spent Total Time Spent (In Minutes): Time spend day of discharge 35 minutes including direct patient care, medication reconciliation, documentation, review of labs and images, and coordination of care. Coding Level of Care Code 11040 INP/OBS DISCH >30 MIN Diagnoses Fall W19.XXXA Encounter type: initial encounter Hand edema R60.0 Pressure ulcer of right heel, stage 3 L89.613 Chronic kidney disease, stage 4 (severe) N18.4 Weakness R53.1 Anemia of chronic disease D63.8
== END 2023-05-23 11:14 ==
LOC: ED 06:40 → 3E 06:40 → SUATTDRO 14:20 → 3E 16:46

== ENCOUNTER 2023-06-26 17:48 | Inpatient (IN) ==
--- NOTE | 2023-06-26 18:17 | Emergency Department Note ---
Impression & Plan Elevated troponin ADMIT ED Provider Note HPI: History obtained from patient The patient is a 77-year-old female with history of venous stasis ulcers of the bilateral lower extremities, hypertension, chronic kidney disease, who presents emergency department with chief complaint of generalized weakness and fatigue. Patient states her symptoms have been ongoing for the past several days. Patient states today she had a fall when she was attempting to sit down in her chair. She landed with her left foot behind her leg and stated that she does have some pain in her left foot but otherwise denies any focal complaint of pain. On arrival here to the ED the patient is hemodynamically stable, she otherwise appears to be in no acute distress on my initial assessment. ROS: - Per HPI Differential Diagnosis: Left foot fracture, left foot sprain, bilateral lower extremity cellulitis, early sepsis, dehydration, amongst other potential pathologies. *Outpatient medications and allergy history reviewed. PE: General: Alert HEENT: Normocephalic, trachea midline Eyes: Extraocular eye movement is intact, no scleral erythema Pulmonary: Clear to auscultation bilaterally, no wheezing Cardio: Regular rate and rhythm GI: Abdomen is soft to palpation : No suprapubic tenderness MSK: No evidence of trauma or malformation of the extremities, 2+ edema of the bilateral lower extremities with overlying erythema that appears chronic in nature without any purulent drainage, there is no crepitus with palpation, no pain out of proportion to exam Skin: No evidence of rash Neuro: Alert, no focal deficits Psychiatric: Cooperative INDEPENDENT 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 Lab work shows no leukocytosis, hemoglobin is stable at 9.9, platelet count is slightly reduced at 117. CMP does not show any critical findings, baseline chronic kidney disease with creatinine of 1.68, BUN is elevated at 36. High- sensitivity troponin is elevated beyond the patient's baseline at 84.9, patient denies any chest pain or shortness of breath, low suspicion for ACS. Procalcitonin is low. With no leukocytosis and low procalcitonin, low suspicion for cellulitis or systemic infection/sepsis. On my reassessment the patient states she still feels weak but feels well for discharge. Repeat troponin is uptrending to 135.7, ambulatory trial performed by the bedside RN reportedly did not go well, the patient was complaining of some pain at the base of her left foot and was not able to ambulate with her walker. Given the patient's uptrending troponin and ambulatory dysfunction, I do feel she should be admitted to the hospital to which she is in agreement. [facility] hospitalist service was consulted for admission and the patient was placed for admission in stable condition. Disposition discussion held by myself with: -Patient Diagnosis: 1. Elevated troponin, acute 2. Ambulatory dysfunction, acute 3. Thrombocytopenia, acute Disposition: Admission Rocael Espinosa DO Emergency Medicine Past Med/Surg History Medical History Vitamin D deficiency Anemia of chronic disease Chronic kidney disease, stage 4 (severe) Elevated troponin level not due myocardial infarction Elevated troponin Cellulitis of left thigh Hypomagnesemia Ulcer with gangrene, limited to breakdown of skin Abscess of left thigh Cellulitis of left thigh Pressure ulcer of upper thigh Bacterial infection due to Pseudomonas Folate deficiency Bacterial infection due to Serratia Septic shock No blood products PER PATIENT REQUEST Cellulitis BILATERAL LEGS AND FEET, INPATIENT [facility] (JULY 2018) Pneumonia AUGUST 2017 Fracture of sacrum BILATERAL. ~2017, PHYSICAL THERAPY. USES WALKER Cancer MELANOMA Anemia Chronic steroid use CKD (chronic kidney disease) stage 3, GFR 30-59 ml/min Obesity HLD (hyperlipidemia) HTN (hypertension) Rheumatoid arthritis Surgical History S/P debridement (11/29/19) Right Thigh wound debridement, sharp, greater than [address] Peter 11/29/2019 S/P JUAN-BSO S/P revision of total hip RIGHT History of colonoscopy History of surgical removal of skin lesion BACK History of cataract surgery BILATERAL History of total hip replacement RIGHT Total knee replacement status BILATERAL Family History Father Non Hodgkin's lymphoma Mother Coronary heart disease Social History Smoking Status: Unknown if ever smoked Second Hand Exposure: No; Do You Dip or Chew Tobacco: No; Hx Alcohol Use: No Hx Substance Use: No Preferred Language: Latvian Communication Ability: Effective Visual Impairment: Limited Hearing Ability: Normal Submarine Operator Required: No Beliefs That Will Affect Care: None marital status: Single Current Living Situation: Alone Current Living Situation Comment: Home alone with HH current occupational status: retired 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 Feels Safe at Home: Yes Diet: regular Physical Activity Frequency: Does not Exercise Do you think of yourself as: straight/heterosexual Gender Identity: Female Assistive Devices: Raised Toilet Seat and Walker Allergies Allergies Allergy/AdvReac Type Severity Reaction Status Date / Time cefadroxil Allergy Intermediate Rash Verified 06/26/23 08:30 Sulfa (Sulfonamide Allergy Intermediate RASH Verified 06/26/23 08:30 Antibiotics) cefepime Allergy Unknown Unknown Verified 06/26/23 08:30 cephalexin [From Keflex] Allergy Unknown Unknown Verified 06/26/23 08:30 levofloxacin [From Levaquin] AdvReac Intermediate rash Verified 06/26/23 08:30 oxycodone AdvReac Mild NAUSEA Verified 06/26/23 08:30 Home Meds Home Medications Medication Instructions Recorded Confirmed leflunomide 10 mg tablet 10 mg PO 3XWK 07/10/20 06/26/23 prednisone 5 mg tablet 5 mg PO QAM 11/16/20 06/26/23 hydroxychloroquine 200 mg tablet 400 mg PO HS 04/18/22 06/26/23 pravastatin 20 mg tablet 20 mg PO HS 06/26/23 06/26/23 Results & Data (ED) Vital Signs Vital Signs - 24 hr 06/26/23 18:07 06/26/23 19:04 06/26/23 20:45 Temperature 36.6 C Temperature Source Oral Pulse Rate 82 73 70 Pulse Rate from SpO2 Sensor Pulse Rhythm Regular Respiratory Rate 15 20 Blood Pressure 130/77 Blood Pressure Mean 94 Pulse Oximetry 98 99 Oxygen Delivery Method Room Air Sepsis Recent Fever Within 48 Hours No Sepsis New/Unexplained Change in Mental Status No Sepsis Action Taken by Nursing No Action Required 06/26/23 21:00 06/26/23 21:30 Temperature Temperature Source Pulse Rate 69 74 Pulse Rate from SpO2 Sensor 71 74 Pulse Rhythm Respiratory Rate 15 20 Blood Pressure 163/100 H 157/69 H Blood Pressure Mean 121 98 Pulse Oximetry 100 99 Oxygen Delivery Method Room Air Room Air Sepsis Recent Fever Within 48 Hours Sepsis New/Unexplained Change in Mental Status Sepsis Action Taken by Nursing Laboratory Data 06/26/23 18:54 06/26/23 18:54 Lab Results 06/26/23 06/26/23 06/26/23 Range/Units 18:54 19:09 20:41 WBC 6.28 (4.8-10.8) K/ul RBC 3.61 L (4.20-5.40) M/uL Hgb 9.9 L (12.0-16.0) g/dl Hct 32.8 L (37.0-47.0) % MCV 90.9 (80.0-100.0) fL MCH 27.4 (25.0-34.0) pg MCHC 30.2 L (32.0-36.0) g/dL RDW Std Deviation 47.4 H (36.4-46.3) fL RDW Coeff of Saadia 14.2 (11.5-14.5) % Plt Count 117 L (130-400) K/uL MPV 11.4 (9.4-12.4) fL Immature Gran % (Auto) 0.5 % Neut % (Auto) 86.0 % Lymph % (Auto) 7.3 % [place] % (Auto) 5.4 % Eos % (Auto) 0.5 % Baso % (Auto) 0.3 % Neut # (Auto) 5.40 (1.40-6.50) K/uL Lymph # (Auto) 0.46 L (1.20-3.40) K/uL [place] # (Auto) 0.34 (0.11-0.59) K/uL Eos # (Auto) 0.03 (0.00-0.50) K/uL Baso # (Auto) 0.02 (0.00-0.20) K/uL Immature Gran # (Auto) 0.03 (0.01-0.20) K/uL Sodium 142 (136-145) mmol/L Potassium 4.5 (3.5-5.1) mmol/L Chloride 112 H (98-107) mmol/L Carbon Dioxide 20 L (21-32) mmol/L Anion Gap 10 (3-11) BUN 36 H (6-23) mg/dl Creatinine 1.68 H (0.6-1.2) mg/dl Est Cr Clr Drug Dosing 30.0 ml/min Est GFR ( Amer) 33.6 ml/min Est GFR (Non-Af Amer) 29.0 ml/min BUN/Creatinine Ratio 21.4 H (10-20) Glucose 95 (70-99(Fasting)) mg/dl Calcium 9.0 (8.6-10.3) mg/dl Magnesium 1.9 (1.7-2.4) mg/dl Total Bilirubin 0.4 (0.2-1.0) mg/dl Direct Bilirubin 0.1 (0-0.2) mg/dl AST 22 (13-39) U/L ALT 12 (7-52) U/L Alkaline Phosphatase 138 H (34-104) U/L Troponin I High Sens 84.9 H* 135.7 H* D (0-14) pg/ml Total Protein 5.6 L (6.0-8.3) gm/dl Albumin 3.3 L (3.4-5.0) gm/dl Procalcitonin 0.10 (0-0.5) ng/ml Adenovirus (PCR) Not Detected (NotDetected) B. pertussis DNA (PCR) Not Detected (NotDetected) B.parapertussis DNA PCR Not Detected (NotDetected) C. pneumoniae DNA (PCR) Not Detected (NotDetected) Coronavirus OC43 (PCR) Not Detected (NotDetected) Coronavirus HKU1 (PCR) Not Detected (NotDetected) Coronavirus 229E (PCR) Not Detected (NotDetected) SARS-CoV-2 (PCR) Not Detected (NotDetected) Coronavirus NL63 (PCR) Not Detected (NotDetected) Human Metapneumovir PCR Not Detected (NotDetected) Influenza Type A (PCR) Not Detected (NotDetected) Influenza Type B (PCR) Not Detected (NotDetected) M. pneumoniae (PCR) Not Detected (NotDetected) Parainfluenza 1 (PCR) Not Detected (NotDetected) Parainfluenza 2 (PCR) Not Detected (NotDetected) Parainfluenza 3 (PCR) Not Detected (NotDetected) Parainfluenza 4 (PCR) Not Detected (NotDetected) RSV (PCR) Not Detected (NotDetected) Entero/Rhino (PCR) Not Detected (NotDetected) Administered Medications Discontinued Medications Aspirin (Aspirin Chew 324 Mg) 324 mg PO NOW STA Stop: 06/26/23 21:49 Last Admin: 06/26/23 22:03 Dose: 324 mg Documented By: MADHU Discharge Plan Visit Data Chief Complaint: Fall Stated Complaint: FALL/NO INJURIES/ HAS WOUND ON FOOT UN RELATED ED Provider: Rocael Espinosa Discharge Problem: Elevated troponin Forms Stand Alone Forms: [facility] [place] [employer] Prescriptions Prescriptions: No Action leflunomide 10 mg tablet 10 mg PO 3XWK Rx Instructions: 05/14/23 : PT REPORTS SHE TAKES THIS MED EVERY THURSDAY/THURSDAY/& THURSDAY. prednisone 5 mg tablet 5 mg PO QAM hydroxychloroquine 200 mg tablet 400 mg PO HS pravastatin 20 mg tablet 20 mg PO HS Referrals Referrals: Svetlana Rosales CRNP [Primary Care Provider] -
[2023-06-26 19:33] LABS: Basophils # (auto) 0.02 K/uL (0.00-0.20); Basophils % (auto) 0.3 %; Eosinophils # (auto) 0.03 K/uL (0.00-0.50); Eosinophils % (auto) 0.5 %; Hematocrit (blood only) 32.8 % (37.0-47.0); Hemoglobin 9.9 g/dl (12.0-16.0); Immature Granulocytes # (auto) 0.03 K/uL (0.01-0.20); Immature Granulocytes % (auto) 0.5 %; Lymphocytes # (auto) 0.46 K/uL (1.20-3.40); Lymphocytes % (auto) 7.3 %; Mean Corpuscular Hemoglobin 27.4 pg (25.0-34.0); Mean Corpuscular Hgb Conc 30.2 g/dL (32.0-36.0); Mean Corpuscular Volume 90.9 fL (80.0-100.0); Mean Platelet Volume 11.4 fL (9.4-12.4); Monocytes # (auto) 0.34 K/uL (0.11-0.59); Monocytes % (auto) 5.4 %; Platelet Count 117 K/uL (130-400); RDW Coefficient of Variation 14.2 % (11.5-14.5); RDW Standard Deviation 47.4 fL (36.4-46.3); Red Blood Count 3.61 M/uL (4.20-5.40); White Blood Count 6.28 K/ul (4.8-10.8)
[2023-06-26 20:20] LABS: Albumin Level 3.3 gm/dl (3.4-5.0); BUN Creatinine Ratio 21.4 (10-20); Bilirubin,Total 0.4 mg/dl (0.2-1.0); Est GFR (African American) 33.6 ml/min; Magnesium 1.9 mg/dl (1.7-2.4); Potassium 4.5 mmol/L (3.5-5.1); Total Protein 5.6 gm/dl (6.0-8.3); Troponin I High Sensitivity 84.9 pg/ml (0-14)
[2023-06-26 20:21] LABS: Bilirubin Direct 0.1 mg/dl (0-0.2)
[2023-06-26 20:47] LABS: Adenovirus PCR Not Detected (NotDetected); Bordetella parapertussis PCR Not Detected (NotDetected); Bordetella pertussis PCR Not Detected (NotDetected); Chlamydia pneumoniae PCR Not Detected (NotDetected); Coronavirus 229E PCR Not Detected (NotDetected); Coronavirus CoV-2 (COVID19)PCR Not Detected (NotDetected); Coronavirus HKU1 PCR Not Detected (NotDetected); Coronavirus NL63 PCR Not Detected (NotDetected); Coronavirus OC43PCR Not Detected (NotDetected); Human Metapneumovirus PCR Not Detected (NotDetected); Influenza A PCR Not Detected (NotDetected); Influenza B PCR Not Detected (NotDetected); Mycoplasma pneumoniae PCR Not Detected (NotDetected); Parainfluenza Virus 1 PCR Not Detected (NotDetected); Parainfluenza Virus 2 PCR Not Detected (NotDetected); Parainfluenza Virus 3 PCR Not Detected (NotDetected); Parainfluenza Virus 4 PCR Not Detected (NotDetected); Respiratory Syncytial VirusPCR Not Detected (NotDetected); Rhinovirus/Enterovirus PCR Not Detected (NotDetected)
[2023-06-26] MEDS: ASPIRIN CHEW 324 MG PO STA (22:03)
--- NOTE | 2023-06-26 22:05 | History & Physical Report ---
Date of Service June 26, 2023 Assessment & Plan (1) Elevated troponin: (2) Pressure ulcer of right heel, stage 1: (3) Weakness: (4) Fall: (5) Heart murmur: (6) Anemia of chronic disease: (7) Chronic kidney disease, stage 4 (severe): (8) Acute diastolic CHF (congestive heart failure): (9) Venous stasis dermatitis: Plan Weakness | Left Foot Pain after Fall -No current signs of infection with normal WBC, afebrile, only notes feeling fatigued -Obtained blood cultures and wound cultures, results pending. Urine culture ordered. Will monitor daily CBC -X-ray obtained of L foot, no obvious evidence of fracture but awaiting official read -PT/OT consults placed, may require rehab at time of discharge Chronic Lower Extremity Wounds | PAD, Venous Stasis | Lymphedema -Follows with wound clinic three times per week -Recent history of MSSA and Enterobacter cloacae on recent surface culture of R heel -Wound clinic notes early stage wound at R heel -Ordered wound culture for R heel -Will hold antibiotics at this time as patient is afebrile/normal WBC/normal procal Elevated Troponin -Mild elevation from 84.9 to 135.7. Received aspirin in ED. -Will trend to peak -Monitor on telemetry CKD Stage 4 -Cr 1.68 on admission, appears to be near baseline -Monitor with daily metabolic panel -Avoid nephrotoxic agents and dose medications renally Anemia of Chronic Disease -Hgb 9.9 on admission -Monitor daily CBC Rheumatoid Arthritis -Continue home medications Admit to med/tele VTE Prophylaxis: Heparin subQ Diet: Heart Healthy Code Status: DNR/DNI History of Present Illness Primary Care Provider: KARI Coughlin Dona Villalpando is a 77 year-old female with a past medical history of CKD stage 4, recurrent lower extremity wounds and pressure ulcers secondary to venous stasis and peripheral arterial disease, CHF, rheumatoid arthritis. She presented to the ED after a fall at home- she reports feeling weak while ambulating at home and had to "lower herself" to the floor. When she was on the floor, she reports her left foot was stuck underneath her right leg and she has had pain in the left foot since then with ambulation. She notes that she was recently admitted to the hospital and had a subsequent rehab stay at [facility] but was discharged "due to insurance issues". She states that since she has been home, she has been doing well and has been going to wound care three times per week. She also reports that she had a recent diagnosis of laryngitis which she received doxycycline for (completed antibiotics ~1 week ago). States she has been eating and drinking normally, denies nausea/vomiting/diarrhea/constipati on/dysuria. Denies fever/body aches/chills. States she has been feeling "a bit unwell" and fatigued but denies any specific symptoms in the past few days. Patient notes she lives in her own home, uses a walker to ambulate. States her brother lives in an apartment in her basement, reports that he is "very sick" with cancer and has been seen at [facility] but declines any cancer treatment which has been very upsetting and frustrating for the patient. ED Course: -Aspirin -Chest XR, L foot XR Allergies Allergy/AdvReac Type Severity Reaction Status Date / Time cefadroxil Allergy Intermediate Rash Verified 06/26/23 08:30 Sulfa (Sulfonamide Allergy Intermediate RASH Verified 06/26/23 08:30 Antibiotics) cefepime Allergy Unknown Unknown Verified 06/26/23 08:30 cephalexin [From Keflex] Allergy Unknown Unknown Verified 06/26/23 08:30 levofloxacin [From Levaquin] AdvReac Intermediate rash Verified 06/26/23 08:30 oxycodone AdvReac Mild NAUSEA Verified 06/26/23 08:30 Home Medications Medication Instructions Recorded Confirmed Type leflunomide 10 mg tablet 10 mg PO 3XWK 07/10/20 06/26/23 History prednisone 5 mg tablet 5 mg PO QAM 11/16/20 06/26/23 History hydroxychloroquine 200 mg tablet 400 mg PO HS 04/18/22 06/26/23 History pravastatin 20 mg tablet 20 mg PO HS 06/26/23 06/26/23 History Past Med/Surg History Medical History Vitamin D deficiency Anemia of chronic disease Chronic kidney disease, stage 4 (severe) Elevated troponin level not due myocardial infarction Elevated troponin Cellulitis of left thigh Hypomagnesemia Ulcer with gangrene, limited to breakdown of skin Abscess of left thigh Cellulitis of left thigh Pressure ulcer of upper thigh Bacterial infection due to Pseudomonas Folate deficiency Bacterial infection due to Serratia Septic shock No blood products PER PATIENT REQUEST Cellulitis BILATERAL LEGS AND FEET, INPATIENT [facility] (JULY 2018) Pneumonia AUGUST 2017 Fracture of sacrum BILATERAL. ~2017, PHYSICAL THERAPY. USES WALKER Cancer MELANOMA Anemia Chronic steroid use CKD (chronic kidney disease) stage 3, GFR 30-59 ml/min Obesity HLD (hyperlipidemia) HTN (hypertension) Rheumatoid arthritis Surgical History S/P debridement (11/29/19) Right Thigh wound debridement, sharp, greater than [address] Peter 11/29/2019 S/P JUAN-BSO S/P revision of total hip RIGHT History of colonoscopy History of surgical removal of skin lesion BACK History of cataract surgery BILATERAL History of total hip replacement RIGHT Total knee replacement status BILATERAL Family History Father Non Hodgkin's lymphoma Mother Coronary heart disease Social History Smoking Status: Unknown if ever smoked Second Hand Exposure: No; Do You Dip or Chew Tobacco: No; Hx Alcohol Use: No Hx Substance Use: No Preferred Language: Hebrew Communication Ability: Effective Visual Impairment: Limited Hearing Ability: Normal Merchant Banker Required: No Beliefs That Will Affect Care: None marital status: Single Current Living Situation: Alone Current Living Situation Comment: Home alone with HH current occupational status: retired 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 Feels Safe at Home: Yes Safety Concerns: Feels Safe At This Time Diet: regular Physical Activity Frequency: Does not Exercise Do you think of yourself as: straight/heterosexual Gender Identity: Female Assistive Devices: Walker Review of Systems Review of Systems: As per above Physical Exam Constitutional: + frail appearing; no acute distress Eyes: + anicteric sclerae; no conjunctival abn ormality ENMT: Ears: no external ear abnormality Nose: no external nose abnormality Moist mucous membranes Respiratory: normal respiratory effort, lungs clear to auscultation Cardiovascular: Rate/Rhythm: regular rate and regular rhythm Heart Sounds: + murmur Gastrointestinal (Abdomen): Inspection/Auscultation: abdomen normal to inspection; abdomen not distended Percussion/Palpation: abdomen soft; abdomen nontender Musculoskeletal: Pain with weight bearing on L foot. Can move extremities independently. No focal limb weakness. Skin: +2 pitting edema of bilateral lower extr emities up to knees. Tray bandages applied covering wounds up to bilateral knees, some erythema noted extending slightly above bandages. Neurologic: no focal motor deficits Psychiatric: A+Ox3, euthymic affect Results & Data Results & Data Vital Signs (Past 12 Hours) Vital Signs Temp Pulse Resp BP Pulse Ox O2 Del Method 06/26/23 21:30 74 20 157/69 H 99 Room Air 06/26/23 21:00 69 15 163/100 H 100 Room Air 06/26/23 20:45 70 06/26/23 19:04 73 20 99 Room Air 06/26/23 18:07 36.6 C 82 15 130/77 98 Supervising Physician Co-Signing Physician Notes Attending addendum: I have physically seen this patient, have supervised the medical residents activities, and agree with the H&P unless as otherwise noted. Assessment and Plan: Generalized weakness- Contributing factors including but not limited to: Progression of General debilitation, urinary tract infection, chronic lower extremity wounds, kidney disease Follow urine culture and sensitivity Follow wound culture and sensitivity Consult PT/OT, may require inpatient rehab after discharge Chronic lower extremity wounds/PAD/venous stasis/chronic lymphedema- Follows with wound clinic History of MSSA and Enterobacter cloacae infection of right heel Follow wound culture and sensitivity X-ray not suggestive of osteomyelitis Follow-up antibiotics for now Elevated troponin- Troponin increased to 84.90 135.7. Received aspirin 324 mg from the ED No EKG changes Following telemetry CKD stage IV- Creatinine 1.68 with range 1.68-2.02 Follow serially Resident Activity Tracking Resident Involvement: Resident Care Provided Care Provided: Adult Hospital Medicine (4) Fall Encounter type: initial encounter Qualified Code(s): W19.XXXA - Unspecified fall, initial encounter
[2023-06-27] MEDS ORDERED: POLYETHYLENE (MIRALAX) 17 GM PACK PO PRN (00:45)
[2023-06-27] MEDS ORDERED: ONDANSETRON INJ 2 MG/ML 2 ML VIAL IV PRN (00:45)
[2023-06-27 06:57] LABS: Basophils # (auto) 0.02 K/uL (0.00-0.20); Basophils % (auto) 0.4 %; Eosinophils # (auto) 0.19 K/uL (0.00-0.50); Eosinophils % (auto) 4.2 %; Hematocrit (blood only) 27.6 % (37.0-47.0); Hemoglobin 8.3 g/dl (12.0-16.0); Immature Granulocytes # (auto) 0.01 K/uL (0.01-0.20); Immature Granulocytes % (auto) 0.2 %; Lymphocytes # (auto) 0.92 K/uL (1.20-3.40); Lymphocytes % (auto) 20.3 %; Mean Corpuscular Hemoglobin 27.2 pg (25.0-34.0); Mean Corpuscular Hgb Conc 30.1 g/dL (32.0-36.0); Mean Corpuscular Volume 90.5 fL (80.0-100.0); Monocytes % (auto) 8.8 %; Neutrophils # (auto) 2.99 K/uL (1.40-6.50); Neutrophils % (auto) 66.1 %; Platelet Count 100 K/uL (130-400); RDW Coefficient of Variation 14.4 % (11.5-14.5); Red Blood Count 3.05 M/uL (4.20-5.40); White Blood Count 4.53 K/ul (4.8-10.8)
[2023-06-27 07:14] LABS: Albumin Globulin Ratio 1.7 (0.9-2); Albumin Level 2.7 gm/dl (3.4-5.0); BUN Creatinine Ratio 20.5 (10-20); Bilirubin,Total 0.4 mg/dl (0.2-1.0); Calcium 8.4 mg/dl (8.6-10.3); Creatinine Clr Calc Pharmacy 30.8 ml/min; Est GFR (African American) 35.4 ml/min; Est GFR (Non-African American) 30.5 ml/min; Globulin 1.6 gm/dl (2.5-4.0); Magnesium 1.8 mg/dl (1.7-2.4); Potassium 4.5 mmol/L (3.5-5.1); Total Protein 4.3 gm/dl (6.0-8.3)
[2023-06-27 07:21] LABS: Troponin I High Sensitivity 174.5 pg/ml (0-14)
--- NOTE | 2023-06-27 07:22 | XRay Report ---
XR chest 1V portable CLINICAL HISTORY: Sepsis TECHNIQUE: Single frontal radiograph of the chest was obtained. Comparison: Comparison is made to chest radiograph 05/20/2023 FINDINGS: No lines and tubes are seen. The cardiomediastinal silhouette is normal. The lungs are clear. No evid ence of pleural effusion or pneumothorax. IMPRESSION: No acute abnormalities and in particular no radiographic evidence of pneumonia. ACT 112: Negative or not required by law. Electronically signed by: Angel Sky M.D. 06/27/2023 7:21 AM
--- OUTSIDE RECORDS SUMMARY | 2023-06-27 08:24 | External Medical Summary ---
Author Name UNSPECIFIED Address Unknown Organization [facility] History of Encounters Reason for Assessment: Transferred to an inpatient facility - patient not discharged from agency Inpatient Facility where the patient been admitted: Hospital
--- OUTSIDE RECORDS SUMMARY | 2023-06-27 08:24 | External Medical Summary ---
Author Name UNSPECIFIED Address Unknown Organization [facility] History of Encounters Reason for Assessment: Start of care - f urther visits planned Inpatient discharge facility: Past 14 Da ys: Discharged from Nursing Home Facility Most Recent Inpatient Discharge Date: Functional Assessment Patient Living Situation: Patient Lives Alone: Regular daytime When Dyspneic: When walking more th an 20 feet, climbing stairs Bowel Incontinence Frequency: Very rarel y or never has bowel incontinence Cognitive and Behavioral and Psychiatric Symptoms: None Current Ability: Bathing: Able to bathe in shower or tub with the intermittent assistance of another person: (a) for intermittent supervision or encouragement or reminders, OR (b) to get in and out of the shower or tub, OR (c) for washing difficult to reach areas. Current Ability: Ambulation: Requires us e of a two-handed device (e.g., walker or crutches) to walk alone on a level surface and/or requires human supervision or assistance to negotiate stairs or steps or uneven surfaces. Current: Management Of Oral Medications: Able to take medication(s) at the correct times if: (a) individual dosages are prepared in advance by another person; OR (b) another person develops a drug diary or chart Problems Primary Home Care Diagnosis ICD Code: Z4 8.00, Encounter for change or removal of nonsurg wound dressing Home Care Diagnosis 1: ICD Code: I87.2, Venous insufficiency (chronic) (peripheral) Home Care Diagnosis 1: Severity Ratin Home Care Diagnosis 2: ICD Code: I73.9, Peripheral vascular disease, unspecified Home Care Diagnosis 2: Severity Ratin Home Care Diagnosis 3: ICD Code: M06.9, Rheumatoid arthritis, unspecified Home Care Diagnosis 3: Severity Ratin Home Care Diagnosis 4: ICD Code: I89.0, Lymphedema, not elsewhere classified Home Care Diagnosis 4: Severity Ratin Home Care Diagnosis 5: ICD Code: I12.9, Hypertensive chronic kidney disease w stg 1-4/unsp chr kdny Home Care Diagnosis 5: Severity Ratin
--- OUTSIDE RECORDS SUMMARY | 2023-06-27 08:24 | External Medical Summary | Continuity of Care Document ---
Author Name Unknown Organization [address] Address [address] [place], [place] [id number] Care Team Providers Care [id number] Android Developer Name Role Phone Svetlana Rosales Primary Care Physician [phone] Encounter [facility] [id number] Date(s): 06/17/23 - 06/17/[address] [facility] [address] [facility], [address] [place] [address] [phone] Encounter Diagnosis Hypertension(Discharge Diagnosis) - 06/17/23 Cellulitis(Discharge Diagnosis) - 06/17/23 Pneumonia(Discharge Diagnosis) - 06/17/23 Discharge Disposition: Home or Self Care Attending Physician: KARI Pennington Katy Marie Referring Physician: KARI Rosales Shari A Allergies, Adverse Reactions, Alerts Substance Reaction Severity Status sulfa drugs Systemic rash Active sulfaSALAzine Rash Active Levaquin rash Active oxyCODONE nausea Active Assessment and Plan Extracted from: Title:PNA f/u Author:KARI Pennington Katy Marie Date:06/17/23 1.Hypertension Problem isChronic Goal:maintenance Data:_ Plan:can stay off of losartan, will monitor 2.Cellulitis Problem isAcute Goal:resolution Data:_ Plan:continue with wound care therapy. 3.Pneumonia Problem isAcute Goal:resolution Data:_ Plan:finish abx, LS are MUCH better. can return PRN Discussed return precautions and ER precautions.Patient verbalizes understanding and agrees with plan Immunizations Given and Recorded Vaccine Date Status Refusal Reason tetanus/diphtheria/pertuss, acel (Tdap) 03/17/23 G iven tetanus toxoids-diphtheria, Td (Adult) 11/26/12 Gi yamileth Medications doxycycline hyclate 100 mg oral capsule Start: 06/10/23 11:13:00 EST, 1 cap, PO, bid, Disp# 20 cap, Pharmacy: [id number] Start Date: 06/10/23 Stop Date: 06/20/23 Status: Ordered hydroxychloroquine 200 mg oral tablet Start: 01/08/23 9:18:00 EDT, See Instructions, Disp# 180 tab, Refills: 3, TAKE 2 TABLETS BY MOUTH AT BEDTIME, Pharmacy: [id number] Start Date: 01/08/23 Status: Ordered leflunomide 10 mg oral tablet Start: 01/08/23 9:18:00 EDT, See Instructions, Disp# 90 tab, Refills: 2, TAKE 1 TABLET BY MOUTH EVERY DAY START AFTER COMPLETES ANTIBIOTICS, Pharmacy: [id number] Start Date: 01/08/23 Status: Ordered pravastatin 20 mg oral tablet Start: 09/12/22 10:24:00 EDT, See Instructions, Disp# 90 tab, Refills: 3, TAKE 1 TABLET BY MOUTH EVERY DAY IN THE EVENING, [facility]acy: [id number] Start Date: 09/12/22 Status: Ordered predniSONE 5 mg oral tablet Start: 04/22/23 13:16:00 EST, See Instructions, Disp# 30 tab, Refills: 11, TAKE 1 TABLET BY MOUTH EVERY DAY, [facility]acy[id number] Start Date: 04/22/23 Status: Ordered Mental Status 06/17/23 Barriers to Learning one year None evide nt Mandatory Health Literacy Documentation Yes Health Literacy Communication Barriers N ever Primary Language Nigerien Problem List Condition Confirmation Course Effective Dates Status Health Status Informant Anemia Confirmed Active Other atherosclerosis of [place] arteries of extremities, bilateral legs 1 Confirmed Active BCC (basal cell carcinoma) Confirmed Active Chronic kidney disease, stage 3a 2 Confirmed Active DN - Dysplastic nevus Confirmed Active Elevated cholesterol Confirmed Active Hx of colonic polyps Confirmed Active Hypertension Confirmed Active Immunosuppression due to chronic steroid use 3 Confirmed Active Melanoma Confirmed Active OA [Osteoarthritis] Confirmed Active 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 Confirmed Active Pulmonary hypertension, unspecified 4 Confirmed Active RA [Rheumatoid arthritis] Confirmed Active Major depressive disorder, recurrent episode, in partial remission 5 Confirmed Active SK (seborrheic keratosis) Confirmed Active Thrombocytopenia 6 Confirmed Active 1See outside note 05/21/22 05/06/22- [facility] Karen Reyez DPM GFR 48, Creat 1.18; 10/07/2021 GFR 40, Creat 1.30; 06/26/2021 GFR 44, Creat 1.20; 12/26/2020 GFR 48, Creat 1.10, 10/02/2020 GFR 46, Creat 1.15 3See outside note 03/28/22 03/04/22 Infectious disease Wilfredo Carbajal II Do - Echo TransTHORacic TTE Complete Summary 10. Moderately elevated pulmonary artery pressures, estimated PASP 59 mmHg. 5See Outside note 11/15/2021 platelets 131 08/07/21 platelets 132 Diagnosis Diagnosis Type Effective Dates Health Status Cl inical Service Informant Hypertension Discharge Diagnosis 06/17/23 Cellulitis Discharge Diagnosis 06/17/23 Pneumonia Discharge Diagnosis 06/17/23 Procedures Procedure Date Related Diagnosis Body Site Status Ultrasound of abdomen, right upper quadrant and epigastrium 1 12/30/19 Compl eted Debridement of wound of skin 2 11/2019 Completed Chest X-ray 3 10/14/19 Completed Colonoscopy 4, 5 10/13/18 Complete d Chest x-ray 6 09/01/17 Completed Venous doppler ultrasonography 7 09/01/17 Completed X-ray 8 09/01/[address] - Computerised tomography,lumbar 08/28/16 Completed Punch biopsy of skin 9 02/19/15 Co mpleted Excision 11/28/14 Completed Shave biopsy of skin 11/14/14 Comp leted Mammogram 10 11/07/14 Completed Shave biopsy and cauterization of skin 09/23/13 Completed colonoscopy 04/20/06 Completed Arthroplasty of knee 11 C ompleted B Knee replacement Comple rc Cataract extraction 12 Co mpleted Hysterectomy Completed Melanoma of shoulder Comp leted R hip replacement Complet ed R Hip revision Completed TAHBSO Completed 1Impression: Liver-appears fatty-infiltrated. Gallbladder sludge and suspect associated cholelithiasis Right kidney 0.32 cm non-obstructing calculus. 2right thigh 3impression: negative chest 4Pathology: Rectum, polyp, polypectomy: -tubular adenoma -negative for high grade dysplasia. 5Repeat in 5 years. 6Mild Cardiomegaly Left lower lobe airspace opacity suspicious for pneumonia. Possible small left pleural effusion. Radiographic follow-up recommended. 7No evidence of lower extremity DVT 8right ankle IMPRESSION 1) diffuse soft tissue edema with no radiographic evidence of right ankle 2) Osteopenia and chronic changes as above 9x 2 sites 10There is no mammographic evidence of malignancy. A 1 year screening mammogram is recommended 11total 12Both eyes Vital Signs Most recent to oldest [Reference Range]: 1 Temperature [36.5-37.9 DegC] 36.1 DegC *LOW* (06/17/23 10:40 AM) Heart Rate 72 bpm (06/17/23 10:40 AM) Blood Pressure 110/62mmHg (06/17/23 10:40 AM) Cuff Pulse Pressure 48 mmHg (06/17/23 10:40 AM) Social History Social History Type Response Smoking Status Never smoked cigaret gracy Sex Female [facility] Outpt Note * KARI Pennington, Lisandra Aly: PERFORM Event Display: [facility] Outpt Note Authored Date: [id number] Chief Complaint F/u. Feeling better still has a couple days left. History of Present Illness Dona is a 77 year old female who presents for PNA f/u. She reports that she is feeling so much better. No fevers. No longer coughing and no CP. New blisters formed from wound dressings. She is followed by wound care and sees them weekly. Losartan was stopped in the hospital d/t low blood pressures. She is wondering if she should restart it. Review of Systems A total of 10 systems were reviewed. Pertinent positive and negatives addressed in HPI, all other findings are negative. Physical Exam Vitals & Measurements T:36.1C HR:72(Monitored) BP:110/62 SpO2:94% PHQ2 Data(Data Documented on:06/17/2023 10:38) Emotional health assessment NEGATIVE Constitutional: Alert and oriented, No acute distress, Well-appearing, Normal mood and affect Respiratory: Lung sounds are clear, equal chest rise and fall with breathing, no pursed lip breathing Cardiovascular: Heart sounds regular rate and rhythm, without gallop or murmur, no edema HEENT: Normocephalic, atraumatic, conjunctiva are clear, sclera non-icteric, EOM intact, Ear canalsclear, TM pearly bryson and mobile, hearing intact, Mucous membranes are moist, No tonsillar exudate,neck is supple without lymphadenopathy, thyroid is mobile without palpable masses Skin: Warm, pink, dry, dressings c/d/i BLE Assessment/Plan 1.Hypertension Problem isChronic Goal:maintenance Data:_ Plan:can stay off of losartan, will monitor 2.Cellulitis Problem isAcute Goal:resolution Data:_ Plan:continue with wound care therapy. 3.Pneumonia Problem isAcute Goal:resolution Data:_ Plan:finish abx, LS are MUCH better. 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 Major depressive disorder, recurrent episode, in partial remission Melanoma OA [Osteoarthritis] Other atherosclerosis of [place] arteries of extremities, bilateral legs Pulmonary hypertension, unspecified RA [Rheumatoid arthritis] SK (seborrheic keratosis) Thrombocytopenia Procedure/Surgical History Ultrasound of abdomen, right upper quadrant and epigastrium (12/30/2019)Debridement of wound of skin (11/2019)Chest X-ray (10/14/2019)Colonoscopy (10/13/2018)X-ray (09/01/2017)Venous doppler ultrasonography (09/01/2017)Chest x-ray (09/01/2017)CT - Computerised tomography,lumbar (08/28/2016)Punch biopsy of skin (02/19/2015)Excision (11/28/2014)Shave biopsy of skin (11/14/2014)Mammogram (11/07/2014)Shave biopsy and cauterization of skin (09/23/2013)colonoscopy (04/20/2006)R Hip revisionB Knee replacementR hip replacementTAHBSOMelanoma of shoulderCataract extractionHysterectomyArthroplasty of knee Medications doxycycline(doxycycline hyclate 100 mg oral capsule), 100 mg= 1 cap, PO, bid hydroxychloroquine(hydroxychloroquine 200 mg oral tablet), See Instructions leflunomide(leflunomide 10 mg oral tablet), See Instructions pravastatin(pravastatin 20 mg oral tablet), See Instructions, 3 refills predniSONE(predniSONE 5 mg oral tablet), See Instructions, 11 refills Allergies Levaquinrash oxyCODONEnausea sulfa drugsSystemic rash sulfaSALAzineRash Social History Smoking Status Never smoked cigarettes Alcohol - Denies Alcohol Use Exercise Duration (average number of minutes):240 Times per week:Daily - Comments: housework Home/Environment Lives with:Alone Nutrition/Health Type of diet:Regular - Comments: low calorie Substance Abuse - Denies Substance Abuse Tobacco - Denies Tobacco Use Use:Never smoker Family History CHF (congestive heart failure): Mother. Heart attack: Mother. Lymphoma: Father. Health Status Family Member(s) Family Member(s) Relationship: Mother, Name: Elly Villalpando, Age: Unknown, Cause: cardiopulmonary arrest Relationship: Father, Name: Ac Villalpando, Age: Unknown Immunizations Vaccine Date Status tetanus/diphtheria/pertuss, acel (Tdap) 03/17/2023 Given tetanus toxoids-diphtheria, Td (Adult) 11/26/2012 Given Recommendations Health Maintenance Pending(in the next year) OverDue Medicare Annual Wellness Visit due09/04/20and every 1year Body Mass Index due03/13/22and every 366day Adult Influenza Vaccine due10/17/22and every 1year Due Adult COVID-19 Vaccination due06/17/23Unknown Frequency Adult Social Determinants of Health Screening due06/17/23Unknown Frequency Osteoporosis Screening due06/17/23One-time only Pneumococcal Vaccine Older Adults due06/17/23One-time only Shingles Vaccine due06/17/23One-time only Satisfied(in the past 1 year) Satisfied Adult Tdap/Td Vaccine on03/17/23.Satisfied by ELINA Joiner Donna Lipid Screening on08/15/22.Satisfied by Contributor_system, [email or web address] Electronic Signature on File CC: Kim Rajan DO [address] [place] [address] Electronically Reviewed/Signed by: KARI Moore Author Signature Dt/Tm:06/17/2023 11:08 AM Department of Family Medicine [facility] Patient Care team information Care Team Personnel Name: KARI Rosales Shari A Position: Nurse Pract - Family Med Member Role: Primary Care Provider Address: Address: [address] [place] [id number] [place] Name: KARI Benavides Hongli Position: Nurse Pract - Rheumatology Member Role: Lifetime Relationship Address: Address: [address] [place] [phone] [place] Care Team Related Persons Name: ANURADHA VILLALPANDO Address: home No Address Provided
--- OUTSIDE RECORDS SUMMARY | 2023-06-27 08:24 | External Medical Summary | Continuity of Care Document ---
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 Name Role Phone Svetlana Rosales Larry Primary Care Physician [phone] [id number] Date[facility]s): 06/10/23 - 06/10/[address] [facility] [address] [facility], [address] [place] [address] [phone] Encounter Diagnosis Cellulitis(Discharge Diagnosis) - 06/10/23 Chronic kidney disease, stage 3a(Discharge Diagnosis) - 06/10/23 Hospital discharge follow-up(Discharge Diagnosis) - 06/10/23 Chronic venous stasis(Discharge Diagnosis) - 06/10/23 Hypertension(Discharge Diagnosis) - 06/10/23 Upper respiratory virus(Discharge Diagnosis) - 06/10/23 Pneumonia(Discharge Diagnosis) - 06/10/23 Discharge Disposition: Home or Self Care Attending Physician: KARI Pennington Katy Marie Referring Physician: KARI Pennington Katy Marie Allergies, Adverse Reactions, Alerts Substance Reaction Severity Status sulfa drugs Systemic rash Active sulfaSALAzine Rash Active Levaquin rash Active oxyCODONE nausea Active Assessment and Plan Extracted from: Title:PNA/hospital f/u Author:KARI Pennington Katy Marie Date:06/10/23 1.Cellulitis Problem isAcute Goal:resolution- is resolved Plan:continue to see wound care routinely 3.Hospital discharge follow-up Keep follow-up appts 4.Chronic venous stasis Problem isChronic Goal:maintenance Plan:continue to follow with wound care, keep dressings clean and dry, monitor for infection 5.Hypertension Problem isChronic Goal:_RESOLVED Plan:can continue to monitor BP off of losartan. Will restart if BP becomes elevated. 7.Pneumonia Problem isAcute Goal:resolution Data:_ Plan:RLL, start doxy for 10 days discussed return precautions and warning signs of worsening PNA. REturn in 1 week for recheck of lung sounds Patient verbalizes understanding and agrees with plan Immunizations Given and Recorded Vaccine Date Status Refusal Reason tetanus/diphtheria/pertuss, acel (Tdap) 03/17/23 G iven tetanus toxoids-diphtheria, Td (Adult) 11/26/12 Gi yamileth Medications doxycycline hyclate 100 mg oral capsule Start: 06/10/23 11:13:00 EST, 1 cap, PO, bid, Disp# 20 cap, Pharmacy: [facility][id number] Start Date: 06/10/23 Stop Date: 06/20/23 Status: Ordered hydroxychloroquine 200 mg oral tablet Start: 01/08/23 9:18:00 EDT, See Instructions, Disp# 180 tab, Refills: 3, TAKE 2 TABLETS BY MOUTH AT BEDTIME, Pharmacy: [facility] [id number] Start Date: 01/08/23 Status: Ordered leflunomide 10 mg oral tablet Start: 01/08/23 9:18:00 EDT, See Instructions, Disp# 90 tab, Refills: 2, TAKE 1 TABLET BY MOUTH EVERY DAY START AFTER COMPLETES ANTIBIOTICS, Pharmacy: [facility] [id number] Start Date: 01/08/23 Status: Ordered pravastatin 20 mg oral tablet Start: 09/12/22 10:24:00 EDT, See Instructions, Disp# 90 tab, Refills: 3, TAKE 1 TABLET BY MOUTH EVERY DAY IN THE EVENING, Pharmacy: [facility][id number] Start Date: 09/12/22 Status: Ordered predniSONE 5 mg oral tablet Start: 04/22/23 13:16:00 EST, See Instructions, Disp# 30 tab, Refills: 11, TAKE 1 TABLET BY MOUTH EVERY DAY, Pharmacy: [facility] #[id number] Start Date: 04/22/23 Status: Ordered Mental Status 06/10/23 Barriers to Learning one year None evide nt Mandatory Health Literacy Documentation Yes Health Literacy Communication Barriers N ever Primary Language Yakut Problem List Condition Confirmation Course Effective Dates Status Health Status Informant Anemia Confirmed Active Other atherosclerosis of [place] arteries of extremities, bilateral legs 1 Confirmed Active BCC (basal cell carcinoma) Confirmed Active Chronic kidney disease, stage 3a 2 Confirmed Active DN - Dysplastic nevus Confirmed Active Elevated cholesterol Confirmed Active Hx of colonic polyps Confirmed Active Hypertension Confirmed Active Immunosuppression due to chronic steroid use 3 Confirmed Active Melanoma Confirmed Active OA [Osteoarthritis] Confirmed Active 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 Confirmed Active Pulmonary hypertension, unspecified 4 Confirmed Active RA [Rheumatoid arthritis] Confirmed Active Major depressive disorder, recurrent episode, in partial remission 5 Confirmed Active SK (seborrheic keratosis) Confirmed Active Thrombocytopenia 6 Confirmed Active 1See outside note 05/21/22 05/06/22- [facility] Karen Juarez Aissatou DPM GFR 48, Creat 1.18; 10/07/2021 GFR [...] Diagnosis Diagnosis Type Effective Dates Health Status Clinical Service Informant Cellulitis Discharge Diagnosis 06/10/23 Chronic kidney disease, stage 3a Discharge Diagnosis 06/10/23 Chronic venous stasis Discharge Diagnosis 06/10/23 Hypertension Discharge Diagnosis 06/10/23 Upper respiratory virus Discharge Diagnosis 06/10/23 Pneumonia Discharge Diagnosis 06/10/23 Hospital discharge follow-up Discharge Diagnosis 06/10/23 Procedures Procedure Date Related Diagnosis Body Site [...] oldest [Reference Range]: 1 Temperature [36.5-37.9 DegC] 36.0 DegC *LOW* (06/10/23 10:57 AM) Blood Pressure 120/80mmHg (06/10/23 10:57 AM) Cuff Pulse Pressure 40 mmHg (06/10/23 10:57 AM) Social History Social History Type Response Smoking Status Never smoked cigaret gracy Sex Female [facility] * KARI Pennington, Lisandra Aly: PERFORM Event Display: [facility] Authored Date: [id number] Chief Complaint Pt was in hospital for infected heels and antibiotic IV meds. States they are feeling better. History of Present Illness Dona is a 77-year-old female who was recently admitted to the hospitalforleg cellulitis. Shedoes have a longstanding history of lymphedema and chronic venous stasis. She was given IV antibiotics. She notes now that her legs are improving. She was discharged from the hospital to SNFtherefore no TCM was done. Follows with Wound Care, recently got new shoes and cushion. Sees them weekly. Currently has coban light wraps on her legs from wound care. Alexa stopped her Losartan d/t normal BP readings. No fevers, but does have laryngitis and rhinorrhea. Review of Systems A total of 10 systems were reviewed. Pertinent positive and negatives addressed in HPI, all other findings are negative. Physical Exam Vitals & Measurements T:36.0C BP:120/80 SpO2:100% PHQ2 Data(Data Documented on:06/10/2023 10:54) Emotional health assessment NEGATIVE Constitutional: Alert and oriented, No acute distress, Well-appearing, Normal mood and affect Respiratory: Lung sounds are clear except for RLL which is coarse with rhonchii, equal chest rise and fall with breathing, no pursed lip breathing Cardiovascular: Heart sounds regular rate and rhythm, without gallop or murmur, no edema HEENT: Normocephalic, atraumatic, conjunctiva are clear, sclera non-icteric, EOM intact, Ear canalsclear, TM pearly bryson and mobile, hearing intact, Mucous membranes are moist, No tonsillar exudate,neck is supple without lymphadenopathy, thyroid is mobile without palpable masses Neurological: CN 2-12 grossly intact Skin: Warm, pink, dry, non-intact, chronic wounds on BLE. Assessment/Plan 1.Cellulitis Problem isAcute Goal:resolution- is resolved Plan:continue to see wound care routinely 3.Hospital discharge follow-up Keep follow-up appts 4.Chronic venous stasis Problem isChronic Goal:maintenance Plan:continue to follow with wound care, keep dressings clean and dry, monitor for infection 5.Hypertension Problem isChronic Goal:_RESOLVED Plan:can continue to monitor BP off of losartan. Will restart if BP becomes elevated. 7.Pneumonia Problem isAcute Goal:resolution Data:_ Plan:RLL, start doxy for 10 days discussed return precautions and warning signs of worsening PNA. 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 Major depressive disorder, recurrent episode, in partial remission Melanoma OA [Osteoarthritis] Other atherosclerosis of [place] arteries of extremities, bilateral legs Pulmonary hypertension, [...] every 1year Body Mass Index due03/13/22and every day Adult Influenza Vaccine due10/17/22and every 1year Due Adult COVID-19 Vaccination due06/10/23Unknown Frequency Adult Social Determinants of Health Screening due06/10/23Unknown Frequency Osteoporosis Screening due06/10/23One-time only Pneumococcal Vaccine Older Adults due06/10/23One-time only Shingles Vaccine due06/10/23One-time only Satisfied(in the past 1 year) Satisfied Adult Tdap/Td Vaccine on03/17/23.Satisfied by ELINA Joiner Donna Lipid Screening on08/15/22.Satisfied by Contributor_system, [employer] Electronic Signature on File CC: Kim Rajan, [address] [place] [address] Electronically Reviewed/Signed by: KARI Moore Author Signature Dt/Tm:06/10/2023 11:28 AM Department of Family [facility] Patient Care team information Care Team Personnel Name: KARI Rosales Shari A Position: Nurse Pract - Family Med Member Role: Primary Care Provider Address: Address: [address] [place] [id number] [place] Name: KARI Benavides Hongli Position: Nurse Pract - Rheumatology Member Role: Lifetime Relationship Address: Address: [address] [place] [id number] [place] Care Team Related Persons Name: ANURADHA VILLALPANDO Address: home No Address Provided
[2023-06-27] MEDS: predniSONE 5 MG TAB PO SCH (08:39)
[2023-06-27] MEDS: HEPARIN SOD 5,000 UNIT/0.5 ML VIAL SQ SCH (08:40)
--- NOTE | 2023-06-27 09:01 | Electrocardiogram Report ---
Test Reason : Blood Pressure : / mmHG Vent. Rate : 075 BPM Atrial Rate : 075 BPM P-R Int : 138 ms QRS Dur : 088 ms QT Int : 416 ms P-R-T Axes : 061 -33 049 degrees QTc Int : 464 ms Normal sinus rhythm Left axis deviation Minimal voltage criteria for LVH, may be normal variant ( R in aVL ) Poor R wave progression, consider anterior UT vs. lead placement vs. LVH Abnormal ECG When compared with ECG of 20-MAY-2023 07:30, No significant change was found Confirmed by Margarito Castañeda ([id number]) on 06/27/2023 9:01:38 AM Referred By: REFERRED SELF Confirmed By:Margarito Castañeda
--- NOTE | 2023-06-27 09:02 | XRay Report ---
XR foot LT min 3V routine CLINICAL HISTORY: Fall TECHNIQUE: 3 views of the left foot were obtained. Comparison: None available at the time of this dictation. FINDINGS: No fractures are present. Degenerative changes are seen. Vascular calcifications are noted. Soft tiss ue swelling is seen. IMPRESSION: Soft tissue swelling is seen without evidence of underlying bony abnormality. ACT 112: Negative or not required by law. Electronically signed by: Angel Sky M.D. 06/27/2023 9:01 AM
[2023-06-27 09:58] LABS: Appearance Urine Clear (Clear); Bacteria Urine Automated Negative (Negative); Bilirubin Urine Negative (Negative); Blood Urine Negative (Negative); Color Urine Yellow; Epithelial Cell Urine Auto >30 /lpf (0-5); Glucose Urine UA Negative (Negative); Ketones Urine Trace (Negative); Leukocyte Esterase Urine 2+ (Negative); Nitrite Urine Negative (Negative); Protein Urine Negative (Negative); RBC Urine Automated 0-4 /hpf (0-4); Urobilinogen Urine Negative (Negative)
--- NOTE | 2023-06-27 16:18 | Hospitalist Progress Note ---
"Date of Service June 27, 2023 Assessment & Plan (1) Elevated troponin: (2) Pressure ulcer of right heel, stage 1: (3) Weakness: (4) Fall: (5) Heart murmur: (6) Anemia of chronic disease: (7) Chronic kidney disease, stage 4 (severe): (8) Acute diastolic CHF (congestive heart failure): (9) Venous stasis dermatitis: Plan Weakness | Left Foot Pain after Fall -No current signs of infection with normal WBC, afebrile, only notes feeling fatigued -Obtained blood cultures and wound cultures, results pending. Urine culture ordered. Will monitor daily CBC -X-ray obtained of L foot, no evidence of fracture but demonstrating soft tissue swelling -PT/OT consults placed, may require rehab at time of discharge -CK normal -Suspect multifactoria: deconditioning>poor po intake/dehydration>chronic wounds> ?depression Chronic Lower Extremity Wounds | PAD, Venous Stasis | Lymphedema -Follows with wound clinic three times per week, consult wound nurse on Thursday -Recent history of MSSA and Enterobacter cloacae on recent surface culture of R heel -Wound clinic notes early stage wound at R heel -Ordered wound culture for R heel, pending -Will hold antibiotics at this time as patient is afebrile/normal WBC/normal procal Thrombocytopenia -Admission platelet count of 117; 100 after fluids -Episodes of thrombocytopenia in the past with normal values in between -Peripheral smear ordered to confirm thrombocytopenia Elevated Troponin -Mild elevation from 84.9 to 135.7. Received aspirin in ED. -W/o chest pain -Peaked at 197, downtrended to 117, no longer trending -Monitor on telemetry CKD Stage 4 -Cr 1.68 on admission, appears to be near baseline -Monitor with daily metabolic panel -Avoid nephrotoxic agents and dose medications renally Anemia of Chronic Disease -Hgb 9.9 on admission, now 8.3 after fluids -Monitor daily CBC Rheumatoid Arthritis -Continue home medications Dispo: med/tele, awaiting pt/ot consults for recommendation for placement VTE Prophylaxis: Heparin subQ Diet: Heart Healthy Code Status: DNR/DNI Admission and Anticipated Discharge Date Admission Date: June 26, 2023 Supervising Physician Co-Signing Physician Notes Attending Physician Supervision Note: I independently interviewed and examined the patient and verified the wood history and physical, reviewed labs and image studies and agree with findings and care plan noted above. Subjective Patient seen at bedside this morning. No acute events reported overnight. Pain seems somewhat better and foot compared to yesterday. Patient been having progressive worsening of weakness to the point that she had to lower herself to the ground to avoid a fall. No new complaints this morning. Review of Systems Review of Systems: As per above Physical Exam Constitutional: + frail appearing; no acute distress Eyes: + anicteric sclerae; no conjunctival abn ormality ENMT: Ears: no external ear abnormality Nose: no external nose abnormality Respiratory: normal respiratory effort, lungs clear to auscultation Cardiovascular: Rate/Rhythm: regular rate and regular rhythm Heart Sounds: + murmur Gastrointestinal (Abdomen): Inspection/Auscultation: abdomen normal to inspection; abdomen not distended Musculoskeletal: Pain with weight bearing on L foot. Can move extremities independently. No focal limb weakness. Skin: +2 pitting edema of bilateral lower extr emities up to knees. Tray bandages applied covering wounds up to bilateral knees, some erythema noted extending slightly above bandages. Neurologic: no focal motor deficits Psychiatric: A+Ox3, euthymic affect Results & Data Results & Data Vital Signs (Past 12 Hours) Vital Signs Temp Pulse Pulse Resp BP Pulse Ox O2 Del Method 06/27/23 15:02 65 06/27/23 11:27 37.0 C 62 18 123/70 98 Room Air 06/27/23 08:01 53 L 06/27/23 07:54 60 06/27/23 07:52 36.5 C 62 18 126/70 99 Room Air (4) Fall Encounter type: initial encounter Qualified Code(s): W19.XXXA - Unspecified fall, initial encounter"
[2023-06-27] MEDS: HYDROXYCHLOROQUINE SULFATE 200 MG TAB PO SCH (20:16)
[2023-06-27] MEDS: PRAVASTATIN SOD 20 MG TAB PO SCH (20:16)
--- NOTE | 2023-06-27 21:36 | Billing Data ---
Date of Service June 27, 2023 Coding Level of Care Code 63387 INT INP/OBS CARE
[2023-06-28 05:52] LABS: Basophils # (auto) 0.02 K/uL (0.00-0.20); Basophils % (auto) 0.4 %; Eosinophils # (auto) 0.24 K/uL (0.00-0.50); Hematocrit (blood only) 27.5 % (37.0-47.0); Hemoglobin 8.5 g/dl (12.0-16.0); Immature Granulocytes # (auto) 0.01 K/uL (0.01-0.20); Immature Granulocytes % (auto) 0.2 %; Lymphocytes # (auto) 1.05 K/uL (1.20-3.40); Lymphocytes % (auto) 21.8 %; Mean Corpuscular Hemoglobin 27.5 pg (25.0-34.0); Mean Corpuscular Hgb Conc 30.9 g/dL (32.0-36.0); Mean Platelet Volume 10.8 fL (9.4-12.4); Monocytes % (auto) 8.3 %; Neutrophils % (auto) 64.3 %; Platelet Count 102 K/uL (130-400); RDW Coefficient of Variation 14.3 % (11.5-14.5); RDW Standard Deviation 46.3 fL (36.4-46.3); Red Blood Count 3.09 M/uL (4.20-5.40); White Blood Count 4.82 K/ul (4.8-10.8)
[2023-06-28 06:04] LABS: Albumin Globulin Ratio 1.6 (0.9-2); Albumin Level 2.8 gm/dl (3.4-5.0); BUN Creatinine Ratio 19.5 (10-20); Bilirubin,Total 0.3 mg/dl (0.2-1.0); Calcium 8.3 mg/dl (8.6-10.3); Creatinine Clr Calc Pharmacy 28.5 ml/min; Est GFR (African American) 32.2 ml/min; Est GFR (Non-African American) 27.8 ml/min; Globulin 1.7 gm/dl (2.5-4.0); Magnesium 1.8 mg/dl (1.7-2.4); Potassium 4.1 mmol/L (3.5-5.1); Total Protein 4.5 gm/dl (6.0-8.3)
--- NOTE | 2023-06-28 15:35 | Hospitalist Progress Note ---
"Date of Service June 28, 2023 Assessment & Plan (1) Elevated troponin: (2) Pressure ulcer of right heel, stage 1: (3) Weakness: (4) Fall: (5) Heart murmur: (6) Anemia of chronic disease: (7) Chronic kidney disease, stage 4 (severe): (8) Acute diastolic CHF (congestive heart failure): (9) Venous stasis dermatitis: Plan Weakness | Left Foot Pain after Fall -No current signs of infection with normal WBC, afebrile, only notes feeling fatigued -Obtained blood cultures and wound cultures, results pending. Urine culture ordered. Will monitor daily CBC -X-ray obtained of L foot, no evidence of fracture but demonstrating soft tissue swelling -PT/OT consults placed, may require rehab at time of discharge -CK normal -Suspect multifactoria: deconditioning>poor po intake/dehydration>chronic wounds> ?depression/acute stress -Ice to affected area as needed Depression/situational stress -Sounds like chronic depression with exacerbation due to brother's health. -Not on any medication for depression/anxiety, consider Prozac/Lexapro treatment Chronic Lower Extremity Wounds | PAD, Venous Stasis | Lymphedema -Follows with wound clinic three times per week, consult wound nurse on Thursday -Recent history of MSSA and Enterobacter cloacae on recent surface culture of R heel -Wound clinic notes early stage wound at R heel -Ordered wound culture for R heel, pending -Will hold antibiotics at this time as patient is afebrile/normal WBC/normal procal Thrombocytopenia -Admission platelet count of 117; 100 after fluids -Episodes of thrombocytopenia in the past with normal values in between -Peripheral smear ordered to confirm thrombocytopenia Elevated Troponin -Mild elevation. Received aspirin in ED. -W/o chest pain -likely demand ischemia CKD Stage 4, stable -Cr 1.68 on admission, appears to be near baseline -Monitor with daily metabolic panel -Avoid nephrotoxic agents and dose medications renally Anemia of Chronic Disease, stable -Hgb 9.9 on admission, now 8.5 after fluids, stable -Monitor daily CBC Rheumatoid Arthritis, stable -Continue home medications Dispo: transfer to med surg, PT/OT recommend rehabt VTE Prophylaxis: Heparin subQ Diet: Heart Healthy Code Status: DNR/DNI Admission and Anticipated Discharge Date Admission Date: June 26, 2023 Supervising Physician Co-Signing Physician Notes Attending Physician Supervision Note: I independently interviewed and examined the patient and verified the wood history and physical, reviewed labs and image studies and agree with findings and care plan noted above. Subjective Patient seen at bedside this morning. No acute events reported overnight. Patient reports pain is about the same as yesterday but majority of left ankle pain occurs with ambulation and not so much with rest. Patient is more tearful today and opens up about her brother being very sick at home and dying from cancer. This seems to have put a lot of stress on her emotionally and admits that it may have taken its toll on her diet as well as ambulating. No new complaints today. Review of Systems Review of Systems: All systems reviewed & are unremarkable except as noted in HPI & below Physical Exam Constitutional: + frail appearing; no acute distress Eyes: + anicteric sclerae ENMT: Ears: no external ear abnormality Nose: no external nose abnormality Respiratory: normal respiratory effort, lungs clear to auscultation Cardiovascular: Rate/Rhythm: regular rate and regular rhythm Heart Sounds: + murmur Gastrointestinal (Abdomen): Inspection/Auscultation: abdomen normal to inspection; abdomen not distended Percussion/Palpation: abdomen soft; abdomen nontender Neurologic: no focal motor deficits Results & Data Results & Data Vital Signs (Past 12 Hours) Vital Signs Temp Pulse Pulse Resp BP Pulse Ox O2 Del Method 06/28/23 15:26 62 06/28/23 11:33 36.6 C 60 18 128/71 96 Room Air 06/28/23 07:49 36.4 C L 57 L 18 129/70 97 Room Air 06/28/23 07:08 60 06/28/23 04:22 36.8 C 58 L 14 128/70 96 Room Air (4) Fall Encounter type: initial encounter Qualified Code(s): W19.XXXA - Unspecified fall, initial encounter"
[2023-06-29 04:22] LABS: Basophils # (auto) 0.01 K/uL (0.00-0.20); Basophils % (auto) 0.2 %; Eosinophils # (auto) 0.31 K/uL (0.00-0.50); Eosinophils % (auto) 7.2 %; Hematocrit (blood only) 28.5 % (37.0-47.0); Hemoglobin 8.5 g/dl (12.0-16.0); Immature Granulocytes # (auto) 0.01 K/uL (0.01-0.20); Immature Granulocytes % (auto) 0.2 %; Lymphocytes # (auto) 0.97 K/uL (1.20-3.40); Lymphocytes % (auto) 22.5 %; Mean Corpuscular Hemoglobin 27.1 pg (25.0-34.0); Mean Corpuscular Hgb Conc 29.8 g/dL (32.0-36.0); Mean Corpuscular Volume 90.8 fL (80.0-100.0); Mean Platelet Volume 10.9 fL (9.4-12.4); Monocytes # (auto) 0.34 K/uL (0.11-0.59); Monocytes % (auto) 7.9 %; Neutrophils # (auto) 2.67 K/uL (1.40-6.50); Platelet Count 97 K/uL (130-400); RDW Coefficient of Variation 14.4 % (11.5-14.5); RDW Standard Deviation 47.7 fL (36.4-46.3); Red Blood Count 3.14 M/uL (4.20-5.40); White Blood Count 4.31 K/ul (4.8-10.8)
[2023-06-29 04:45] LABS: Albumin Globulin Ratio 1.6 (0.9-2); Albumin Level 2.7 gm/dl (3.4-5.0); BUN Creatinine Ratio 18.1 (10-20); Bilirubin,Total 0.3 mg/dl (0.2-1.0); Calcium 8.2 mg/dl (8.6-10.3); Est GFR (African American) 31.6 ml/min; Est GFR (Non-African American) 27.2 ml/min; Globulin 1.7 gm/dl (2.5-4.0); Magnesium 1.8 mg/dl (1.7-2.4); Potassium 4.2 mmol/L (3.5-5.1); Total Protein 4.4 gm/dl (6.0-8.3)
--- NOTE | 2023-06-29 07:41 | Hospitalist Progress Note ---
Date of Service June 29, 2023 Assessment & Plan (1) Elevated troponin: Plan: Pt is a 77 yo female with PMH of RA, chronic anemia, CKD, chronic bilateral LE wound, HTN, and HLD presenting to the hospital after "feeling off" and fall at home resulting in left ankle pain. Weakness, left ankle pain after fall - no current signs of infection with normal WBC, afebrile, only notes feeling fatigued; CK WNL - blood cultures neg after 48 hrs, right leg wound culture from 06/18 negative, urine cx contaminated - xray obtained of L foot; no evidence of fracture but showed soft tissue swelling - PT/OT consults placed; recommending rehab - suspect multifactorial: deconditioning, poor PO intake/dehydration, chronic wounds, depression/acute stress - continue ice PRN Depression/situational stress - no current depression tx; recently exacerbated d/t pt's brother's health - consider SSRI treatment as outpatient Chronic LE wounds, PAD, venous stasis, lymphedema - follows with wound clinic 3x per week; wound nurse consulted - recent history of MSSA and Enterobacter cloacae on recent surface culture of R heel; wound clinic notes early stage wound at R heel - ordered wound culture for R heel, pending - will hold antibiotics at this time as patient is afebrile/normal WBC/normal procal Thrombocytopenia - admission platelet count of 117; 100 after fluids - episodes of thrombocytopenia in the past with normal values in between - peripheral smear showed non-specific pancytopenia Elevated troponin - mild elevation from 84.9 to 135.7; received aspirin in ED - w/o chest pain - peaked at 197, no longer trending CKD Stage 4, stable - Cr 1.68 on admission; baseline appears 1.5-1.8 Anemia of chronic disease, stable - Hgb 9.9 on admission - continue to monitor for stable Rheumatoid arthritis, stable - continue home medications; prednisone 5 mg daily, leflunomide 10 mg 3x per week, hydroxychloroquine 400 mg qHS Dispo: med surg, PT/OT recommend rehab VTE ppx: Heparin subQ Diet: heart healthy Code: DNR/DNI (2) Pressure ulcer of right heel, stage 1: (3) Weakness: (4) Fall: (5) Heart murmur: (6) Anemia of chronic disease: (7) Chronic kidney disease, stage 4 (severe): (8) Acute diastolic CHF (congestive heart failure): (9) Venous stasis dermatitis: Admission and Anticipated Discharge Date Admission Date: June 26, 2023 Supervising Physician Co-Signing Physician Notes I personally examined the patient and verified all wood points of history and exam, discussed case, and agree with decision making with Dr Montana Wants to go home, but acknowledges that she is too weak to really be safe. Expresses this distress due to worrying about what would happen if her brother passes while she is at a facility. Vitals noted, in general she is forlorn but no physical distress. HEENT normocephalic atraumatic mucous membranes moist. Breathing unlabored no accessory muscle use good effort. Skin shows no rashes no pallor or icterus. Neuro without focal deficits. WeaknessPT/OT eval and treat. Does not look like she would be safe at home. Tried to discuss this with patient given my concern that if she goes home she may be putting herself at risk for a fairly big catastrophe. She seems to express understanding of this. Leg woundswound care appreciated. DVT prophylaxisheparin subcu otherwise as above Subjective Pt is a 77 yo female with PMH of RA, chronic anemia, CKD, chronic bilateral LE wound, HTN, and HLD presenting to the hospital after "feeling off" and fall at home resulting in left ankle pain. Pt states icing her left ankle helps the pain. We discussed rehab- she said this was the first time she heard that this was recommended for her this hospital stay. She is open to rehab; however, she has hesitations because her brother is very sick/dying and she wants to spend time with him. Review of Systems Review of Systems: As per HPI Physical Exam Physical Exam: Constitutional: well appearing, no acute distress HEENT: normocephalic, no conjunctival injection CV: RRR, no murmur, bilateral LE edema Respiratory: CTA bilaterally. No rhonchi, wheezes, or crackles. No increased work of breathing MSK: no gross deformities noted Skin: warm, dry; hyperkeratosis noted of bilateral toes- bilateral legs wrapped and dry Neuro: alert, oriented, no FND noted Psych: mood and affect congruent; tearful at times Results & Data Results & Data Vital Signs (Past 12 Hours) Vital Signs Temp Pulse Resp BP Pulse Ox O2 Del Method 06/29/23 07:24 36.6 C 57 L 16 138/75 96 Room Air 06/29/23 03:12 36.8 C 90 18 131/79 94 Room Air 06/28/23 23:42 36.8 C 69 18 172/77 H 96 Room Air Resident Activity Tracking Resident Involvement: Resident Care Provided Care Provided: Adult Hospital Medicine (4) Fall Encounter type: initial encounter Qualified Code(s): W19.XXXA - Unspecified fall, initial encounter
[2023-06-29] MEDS: LEFLUNOMIDE 10 MG TAB PO SCH (09:23)
--- NOTE | 2023-06-29 18:13 | Billing Data ---
Date of Service June 29, 2023 Coding Level of Care Code 14494 SUB INP/OBS CARE
--- NOTE | 2023-06-29 18:14 | Billing Data ---
Date of Service June 29, 2023 Coding Level of Care Code 01640 SUB INP/OBS CARE
[2023-06-30 06:29] LABS: Hematocrit (blood only) 27.7 % (37.0-47.0); Hemoglobin 8.6 g/dl (12.0-16.0); Mean Corpuscular Hemoglobin 27.8 pg (25.0-34.0); Mean Corpuscular Volume 89.6 fL (80.0-100.0); Mean Platelet Volume 11.3 fL (9.4-12.4); Platelet Count 93 K/uL (130-400); RDW Coefficient of Variation 14.3 % (11.5-14.5); RDW Standard Deviation 46.5 fL (36.4-46.3); Red Blood Count 3.09 M/uL (4.20-5.40); White Blood Count 4.18 K/ul (4.8-10.8)
[2023-06-30 06:38] LABS: BUN Creatinine Ratio 18.7 (10-20); Est GFR (African American) 32.9 ml/min; Est GFR (Non-African American) 28.4 ml/min; Potassium 4.2 mmol/L (3.5-5.1)
--- NOTE | 2023-06-30 07:05 | Hospitalist Progress Note ---
Date of Service June 30, 2023 Assessment & Plan (1) Elevated troponin: Plan: Pt is a 77 yo female with PMH of RA, chronic anemia, CKD, chronic bilateral LE wound, HTN, and HLD presenting to the hospital after "feeling off" and fall at home resulting in left ankle pain. Weakness, left ankle pain after fall - no current signs of infection with normal WBC, afebrile, only notes feeling fatigued; CK WNL - blood cultures neg after 48 hrs, right leg wound culture from 06/18 negative, urine cx contaminated - xray obtained of L foot; no evidence of fracture but showed soft tissue swelling - suspect multifactorial: deconditioning, poor PO intake/dehydration, chronic wounds, depression/acute stress - continue ice PRN - PT/OT consults placed; recommending rehab- pending Depression/situational stress - no current depression tx; recently exacerbated d/t pt's brother's health - consider SSRI treatment as outpatient Chronic LE wounds, PAD, venous stasis, lymphedema - follows with wound clinic 3x per week; wound nurse consulted - recent history of MSSA and Enterobacter cloacae on recent surface culture of R heel; wound clinic notes early stage wound at R heel - will hold antibiotics at this time as patient is afebrile/normal WBC/normal procal Thrombocytopenia - admission platelet count of 117; 100 after fluids - episodes of thrombocytopenia in the past with normal values in between - peripheral smear showed non-specific pancytopenia Elevated troponin - mild elevation from 84.9 to 135.7; received aspirin in ED - w/o chest pain - peaked at 197, no longer trending CKD Stage 4, stable - Cr 1.68 on admission; baseline appears 1.5-1.8 Anemia of chronic disease, stable - Hgb 9.9 on admission - continue to monitor for stable Rheumatoid arthritis, stable - continue home medications; prednisone 5 mg daily, leflunomide 10 mg 3x per week, hydroxychloroquine 400 mg qHS Dispo: med surg, pending rehab placement VTE ppx: Heparin subQ Diet: heart healthy Code: DNR/DNI (2) Pressure ulcer of right heel, stage 1: (3) Weakness: (4) Fall: (5) Heart murmur: (6) Anemia of chronic disease: (7) Chronic kidney disease, stage 4 (severe): (8) Acute diastolic CHF (congestive heart failure): (9) Venous stasis dermatitis: Admission and Anticipated Discharge Date Admission Date: June 26, 2023 Supervising Physician Co-Signing Physician Notes I personally examined the patient and verified all wood points of history and exam, discussed case, and agree with decision making with Dr Montana more accepting that she wouldn't be safe at home right now but emphasizes "it wasn't my plan to need to go to rehab". Vitals noted, in general she is forlorn but no physical distress. HEENT normocephalic atraumatic mucous membranes moist. Breathing unlabored no accessory muscle use good effort. Skin shows no rashes no pallor or icterus. Neuro without focal deficits. WeaknessPT/OT eval and treat. Does not look like she would be safe at home. more amenable to SNF/rehab. PT/OT eval and treat ongoing Leg woundswound care appreciated. DVT prophylaxisheparin subcu otherwise as above Subjective Pt is a 77 yo female with PMH of RA, chronic anemia, CKD, chronic bilateral LE wound, HTN, and HLD presenting to the hospital after "feeling off" and fall at home resulting in left ankle pain. Pt upset this AM concerning her current situation. She is apprehensive to go to rehab as her brother is dying from cancer. No new concerns or complaints. Review of Systems Review of Systems: As per HPI Physical Exam Physical Exam: Constitutional: well appearing, no acute distress HEENT: normocephalic, no conjunctival injection CV: clinically well perfused Respiratory: no increased work of breathing MSK: no gross deformities noted Neuro: alert, oriented, no FND noted Psych: mood and affect congruent Results & Data Results & Data Vital Signs (Past 12 Hours) Vital Signs Temp Pulse Resp BP Pulse Ox O2 Del Method 06/30/23 00:47 37.1 C 59 L 18 137/73 96 Room Air 06/29/23 20:08 36.6 C 65 18 159/72 H 96 Room Air Resident Activity Tracking Resident Involvement: Resident Care Provided Care Provided: Adult Hospital Medicine (4) Fall Encounter type: initial encounter Qualified Code(s): W19.XXXA - Unspecified fall, initial encounter
--- NOTE | 2023-06-30 09:14 | Billing Data ---
Date of Service June 30, 2023 Coding Level of Care Code 67581 SUB INP/OBS CARE
[2023-06-30] MEDS: ACETAMINOPHEN 325 MG TAB PO PRN (11:40)
--- NOTE | 2023-07-01 10:08 | Hospitalist Progress Note ---
Date of Service July 01, 2023 Assessment & Plan (1) Elevated troponin: Plan: Pt is a 77 yo female with PMH of RA, chronic anemia, CKD, chronic bilateral LE wound, HTN, and HLD presenting to the hospital after "feeling off" and fall at home resulting in left ankle pain. Weakness, left ankle pain after fall - no current signs of infection with normal WBC, afebrile, only notes feeling fatigued; CK WNL - blood cultures neg after 48 hrs, right leg wound culture from 06/18 negative, urine cx contaminated - xray obtained of L foot; no evidence of fracture but showed soft tissue swelling - suspect multifactorial: deconditioning, poor PO intake/dehydration, chronic wounds, depression/acute stress - continue ice PRN - PT/OT consults placed; recommending rehab- pending placement - encouraged pt to continue PT while hospitalized and to spend more time out of bed than in bed Depression/situational stress - no current depression tx; recently exacerbated d/t pt's brother's health - consider SSRI treatment as outpatient Chronic LE wounds, PAD, venous stasis, lymphedema - follows with wound clinic 3x per week; wound nurse consulted - recent history of MSSA and Enterobacter cloacae on recent surface culture of R heel; wound clinic notes early stage wound at R heel - will hold antibiotics at this time as patient is afebrile/normal WBC/normal procal Thrombocytopenia - admission platelet count of 117; 100 after fluids - episodes of thrombocytopenia in the past with normal values in between - peripheral smear showed non-specific pancytopenia Elevated troponin - mild elevation from 84.9 to 135.7; received aspirin in ED - w/o chest pain - peaked at 197, no longer trending CKD Stage 4, stable - Cr 1.68 on admission; baseline appears 1.5-1.8 Anemia of chronic disease, stable - Hgb 9.9 on admission - continue to monitor for stable Rheumatoid arthritis, stable - continue home medications; prednisone 5 mg daily, leflunomide 10 mg 3x per week, hydroxychloroquine 400 mg qHS Dispo: med surg, pending rehab placement VTE ppx: Heparin subQ Diet: heart healthy Code: DNR/DNI (2) Pressure ulcer of right heel, stage 1: (3) Weakness: (4) Fall: (5) Heart murmur: (6) Anemia of chronic disease: (7) Chronic kidney disease, stage 4 (severe): (8) Acute diastolic CHF (congestive heart failure): (9) Venous stasis dermatitis: Admission and Anticipated Discharge Date Admission Date: June 26, 2023 Supervising Physician Co-Signing Physician Notes I personally examined the patient and verified all wood points of history and exam, discussed case, and agree with decision making with Dr Montana no new complaints or problems. Discussed rehab. Awaiting bed at [facility]. Vitals noted, in general she is forlorn but no physical distress. HEENT normocephalic atraumatic mucous membranes moist. Breathing unlabored no accessory muscle use good effort. Skin shows no rashes no pallor or icterus. Neuro without focal deficits. WeaknessPT/OT eval and treat. Does not look like she would be safe at home. PT OT eval and treat, awaiting bed at [facility] Leg woundswound care appreciated. DVT prophylaxisheparin subcu otherwise as above Subjective Pt is a 77 yo female with PMH of RA, chronic anemia, CKD, chronic bilateral LE wound, HTN, and HLD presenting to the hospital after "feeling off" and fall at home resulting in left ankle pain. Pt doing well. No new concerns. Discussed rehab and physical therapy to continue to develop strength. Review of Systems Review of Systems: As per HPI Physical Exam Physical Exam: Constitutional: well appearing, no acute distress HEENT: normocephalic, no conjunctival injection CV: clinically well perfused Respiratory: no increased work of breathing MSK: no gross deformities noted Neuro: alert, oriented, no FND noted Psych: mood and affect congruent Results & Data Results & Data Vital Signs (Past 12 Hours) Vital Signs Temp Pulse Resp BP BP Pulse Ox O2 Del Method 07/01/23 07:42 36.7 C 83 18 134/72 96 Room Air 07/01/23 03:47 36.8 C 56 L 18 109/64 93 Room Air 06/30/23 23:12 36.9 C 62 18 144/82 H 94 Room Air Resident Activity Tracking Resident Involvement: Resident Care Provided Care Provided: Adult Hospital Medicine (4) Fall Encounter type: initial encounter Qualified Code(s): W19.XXXA - Unspecified fall, initial encounter
--- NOTE | 2023-07-01 19:32 | Billing Data ---
Date of Service July 01, 2023 Coding Level of Care Code 70600 SUB INP/OBS CARE
--- NOTE | 2023-07-02 10:46 | Hospitalist Progress Note ---
Date of Service July 02, 2023 Assessment & Plan (1) Elevated troponin: Plan: Pt is a 77 yo female with PMH of RA, chronic anemia, CKD, chronic bilateral LE wound, HTN, and HLD presenting to the hospital after "feeling off" and fall at home resulting in left ankle pain. Weakness, left ankle pain after fall - no current signs of infection with normal WBC, afebrile, only notes feeling fatigued; CK WNL - blood cultures neg after 48 hrs, right leg wound culture from 06/18 negative, urine cx contaminated - xray obtained of L foot; no evidence of fracture but showed soft tissue swelling - suspect multifactorial: deconditioning, poor PO intake/dehydration, chronic wounds, depression/acute stress - continue ice PRN - PT/OT consults placed; recommending rehab- pending placement - encouraged pt to continue PT while hospitalized; encouraged pt to increase time out of bed (5 hrs yesterday) Depression/situational stress - no current depression tx; recently exacerbated d/t pt's brother's health - consider SSRI treatment as outpatient Chronic LE wounds, PAD, venous stasis, lymphedema - follows with wound clinic 3x per week; wound nurse consulted - recent history of MSSA and Enterobacter cloacae on recent surface culture of R heel; wound clinic notes early stage wound at R heel - will hold antibiotics at this time as patient is afebrile/normal WBC/normal procal Thrombocytopenia - admission platelet count of 117; 100 after fluids - episodes of thrombocytopenia in the past with normal values in between - peripheral smear showed non-specific pancytopenia Elevated troponin - mild elevation from 84.9 to 135.7; received aspirin in ED - w/o chest pain - peaked at 197, no longer trending CKD Stage 4, stable - Cr 1.68 on admission; baseline appears 1.5-1.8 Anemia of chronic disease, stable - Hgb 9.9 on admission; pt's baseline appears to be around 8-10 Rheumatoid arthritis, stable - continue home medications; prednisone 5 mg daily, leflunomide 10 mg 3x per week, hydroxychloroquine 400 mg qHS Dispo: med surg, pending rehab placement (pt prefers [facility]) VTE ppx: Heparin subQ Diet: heart healthy Code: DNR/DNI (2) Pressure ulcer of right heel, stage 1: (3) Weakness: (4) Fall: (5) Heart murmur: (6) Anemia of chronic disease: (7) Chronic kidney disease, stage 4 (severe): (8) Acute diastolic CHF (congestive heart failure): (9) Venous stasis dermatitis: Admission and Anticipated Discharge Date Admission Date: June 26, 2023 Supervising Physician Co-Signing Physician Notes I personally examined the patient and verified all wood points of history and exam, discussed case, and agree with decision making with Dr Montana no problems, still awaiting a bed at [facility].Vitals noted, in general she is forlorn but no physical distress. HEENT normocephalic atraumatic mucous membranes moist. Breathing unlabored no accessory muscle use good effort. Skin shows no rashes no pallor or icterus. Neuro without focal deficits. WeaknessPT/OT eval and treat. Does not look like she would be safe at home. PT OT eval and treat, awaiting bed at [facility], Stable to go when bed availab le Leg woundswound care appreciated. DVT prophylaxisheparin subcu otherwise as above Subjective Pt is a 77 yo female with PMH of RA, chronic anemia, CKD, chronic bilateral LE wound, HTN, and HLD presenting to the hospital after "feeling off" and fall at home resulting in left ankle pain. Pt doing well this AM. She notes she was in the chair yesterday for 5 hours. No new concerns. Review of Systems Review of Systems: As per HPI Physical Exam Physical Exam: Constitutional: well appearing, no acute distress HEENT: normocephalic, no conjunctival injection CV: clinically well perfused Respiratory: no increased work of breathing MSK: no gross deformities noted Neuro: alert, oriented, no FND noted Psych: mood and affect congruent Results & Data Results & Data Vital Signs (Past 12 Hours) Vital Signs Temp Pulse Resp BP Pulse Ox O2 Del Method 07/02/23 07:12 36.6 C 54 L 16 145/72 H 98 Room Air Resident Activity Tracking Resident Involvement: Resident Care Provided Care Provided: Adult Hospital Medicine (4) Fall Encounter type: initial encounter Qualified Code(s): W19.XXXA - Unspecified fall, initial encounter
--- NOTE | 2023-07-02 16:54 | Billing Data ---
Date of Service July 02, 2023 Coding Level of Care Code 64728 SUB INP/OBS CARE
--- NOTE | 2023-07-03 08:39 | Hospitalist Progress Note ---
Date of Service July 03, 2023 Assessment & Plan (1) Elevated troponin: Plan: Pt is a 77 yo female with PMH of RA, chronic anemia, CKD, chronic bilateral LE wound, HTN, and HLD presenting to the hospital after "feeling off" and fall at home resulting in left ankle pain. Weakness, left ankle pain after fall - no current signs of infection with normal WBC, afebrile, only notes feeling fatigued; CK WNL - blood cultures neg after 48 hrs, right leg wound culture from 06/18 negative, urine cx contaminated - xray obtained of L foot; no evidence of fracture but showed soft tissue swelling - suspect multifactorial: deconditioning, poor PO intake/dehydration, chronic wounds, depression/acute stress - continue ice PRN - PT/OT consults placed; recommending rehab- pending placement - encouraged pt to continue PT while hospitalized; encouraged pt to increase time out of bed (5 hrs yesterday) Depression/situational stress - no current depression tx; recently exacerbated d/t pt's brother's health - consider SSRI treatment as outpatient Chronic LE wounds, PAD, venous stasis, lymphedema - follows with wound clinic 3x per week; wound nurse consulted - recent history of MSSA and Enterobacter cloacae on recent surface culture of R heel; wound clinic notes early stage wound at R heel - will hold antibiotics at this time as patient is afebrile/normal WBC/normal procal Thrombocytopenia - admission platelet count of 117; 100 after fluids - episodes of thrombocytopenia in the past with normal values in between - peripheral smear showed non-specific pancytopenia Elevated troponin - mild elevation from 84.9 to 135.7; received aspirin in ED - w/o chest pain - peaked at 197, no longer trending CKD Stage 4, stable - Cr 1.68 on admission; baseline appears 1.5-1.8 Anemia of chronic disease, stable - Hgb 9.9 on admission; pt's baseline appears to be around 8-10 Rheumatoid arthritis, stable - continue home medications; prednisone 5 mg daily, leflunomide 10 mg 3x per week, hydroxychloroquine 400 mg qHS Dispo: med surg, pending rehab placement (pt prefers [facility]) VTE ppx: Heparin subQ Diet: heart healthy Code: DNR/DNI (2) Pressure ulcer of right heel, stage 1: (3) Weakness: (4) Fall: (5) Heart murmur: (6) Anemia of chronic disease: (7) Chronic kidney disease, stage 4 (severe): (8) Acute diastolic CHF (congestive heart failure): (9) Venous stasis dermatitis: Admission and Anticipated Discharge Date Admission Date: June 26, 2023 Supervising Physician Co-Signing Physician Notes I personally examined the patient and verified all wood points of history and exam, discussed case, and agree with decision making with Dr Platt again no new problems, still awaiting a bed at [facility].Vitals noted, in general she is forlorn but no physical distress. HEENT normocephalic atraumatic mucous membranes moist. Breathing unlabored no accessory muscle use good effort. Skin shows no rashes no pallor or icterus. Neuro without focal deficits. WeaknessPT/OT eval and treat. Does not look like she would be safe at home. PT OT eval and treat, still awaiting bed at [facility], Stable to go when bed available Leg woundswound care appreciated. DVT prophylaxisheparin subcu otherwise as above Subjective Patient OOB in chair looking outside the window. No complaints or concerns. Review of Systems Review of Systems: All systems reviewed & are unremarkable except as noted in HPI & below Physical Exam Physical Exam: General: no acute distress, speaking in full sentences Resp: good inspiratory effort, no labored breathing HEENT: conjunctivae appear clear, no audible congestion, no swelling noted face or lips Skin: skin appears dry, normal coloration, no rash visible on exposed skin areas Neuro: alert and oriented x3, no focal deficits appreciated Psych: euthymic affect, pleasant and interactive, logical thought process Results & Data Results & Data Vital Signs (Past 12 Hours) Vital Signs Pulse Resp BP Pulse Ox O2 Del Method 07/03/23 07:12 54 L 18 128/74 95 Room Air Resident Activity Tracking Resident Involvement: Resident Care Provided Care Provided: Adult Hospital Medicine (4) Fall Encounter type: initial encounter Qualified Code(s): W19.XXXA - Unspecified fall, initial encounter
--- NOTE | 2023-07-03 18:55 | Billing Data ---
Date of Service July 03, 2023 Coding Level of Care Code 25781 SUB INP/OBS CARE
--- NOTE | 2023-07-04 07:37 | Hospitalist Progress Note ---
Date of Service July 04, 2023 Assessment & Plan (1) Elevated troponin: Plan: Pt is a 77 yo female with PMH of RA, chronic anemia, CKD, chronic bilateral LE wound, HTN, and HLD presenting to the hospital after "feeling off" and fall at home resulting in left ankle pain. Weakness, left ankle pain after fall - no current signs of infection with normal WBC, afebrile, only notes feeling fatigued; CK WNL - blood cultures neg after 48 hrs, right leg wound culture from 06/18 negative, urine cx contaminated - xray obtained of L foot; no evidence of fracture but showed soft tissue swelling - suspect multifactorial: deconditioning, poor PO intake/dehydration, chronic wounds, depression/acute stress - continue ice PRN - PT/OT consults placed; recommending rehab- pending placement - encouraged pt to continue PT while hospitalized; encouraged pt to increase time out of bed (5 hrs yesterday) Depression/situational stress - no current depression tx; recently exacerbated d/t pt's brother's health - consider SSRI treatment as outpatient Chronic LE wounds, PAD, venous stasis, lymphedema - follows with wound clinic 3x per week; wound nurse consulted - recent history of MSSA and Enterobacter cloacae on recent surface culture of R heel; wound clinic notes early stage wound at R heel - will hold antibiotics at this time as patient is afebrile/normal WBC/normal procal Thrombocytopenia - admission platelet count of 117; 100 after fluids - episodes of thrombocytopenia in the past with normal values in between - peripheral smear showed non-specific pancytopenia Elevated troponin - mild elevation from 84.9 to 135.7; received aspirin in ED - w/o chest pain - peaked at 197, no longer trending CKD Stage 4, stable - Cr 1.68 on admission; baseline appears 1.5-1.8 Anemia of chronic disease, stable - Hgb 9.9 on admission; pt's baseline appears to be around 8-10 Rheumatoid arthritis, stable - continue home medications; prednisone 5 mg daily, leflunomide 10 mg 3x per week, hydroxychloroquine 400 mg qHS Dispo: med surg, pending rehab placement (pt prefers [facility]) VTE ppx: Heparin subQ Diet: heart healthy Code: DNR/DNI (2) Pressure ulcer of right heel, stage 1: (3) Weakness: (4) Fall: (5) Heart murmur: (6) Anemia of chronic disease: (7) Chronic kidney disease, stage 4 (severe): (8) Acute diastolic CHF (congestive heart failure): (9) Venous stasis dermatitis: Admission and Anticipated Discharge Date Admission Date: June 26, 2023 Supervising Physician Co-Signing Physician Notes I personally examined the patient and verified all wood points of history and exam, discussed case, and agree with decision making with Dr Platt again no new problems, still awaiting a bed at [facility]. discussed the need for a backup plan in case [facility] denies or doesn't have beds, she gets tearful but also refuses to consider other local options. Vitals noted, in general she is forlorn but no physical distress. HEENT normocephalic atraumatic mucous membranes moist. Breathing unlabored no accessory muscle use good effort. Skin shows no rashes no pallor or icterus. Neuro without focal deficits. WeaknessPT/OT eval and treat. Does not look like she would be safe at home. PT OT eval and treat, still awaiting bed at [facility], stable to go when bed available, encouraged her to consider a back up plan Leg woundswound care appreciated. DVT prophylaxisheparin subcu otherwise as above Subjective Awake in bed this morning on arrival. She reports some residual left ankle pain. Otherwise, she has no complaints. Review of Systems Review of Systems: All systems reviewed & are unremarkable except as noted in HPI & below Physical Exam Physical Exam: General: no acute distress, speaking in full sentences Resp: good inspiratory effort, no labored breathing HEENT: conjunctivae appear clear, no audible congestion, no swelling noted face or lips Skin: skin appears dry, normal coloration, no rash visible on exposed skin areas Neuro: alert and oriented x3, no focal deficits appreciated Psych: euthymic affect, pleasant and interactive, logical thought process Results & Data Results & Data Vital Signs (Past 12 Hours) Vital Signs Temp Pulse Resp BP BP Pulse Ox O2 Del Method 07/04/23 07:12 36.3 C L 55 L 16 146/73 H 97 Room Air 07/03/23 21:12 36.3 C L 55 L 20 155/60 H 95 Room Air Resident Activity Tracking Resident Involvement: Resident Care Provided Care Provided: Adult Hospital Medicine (4) Fall Encounter type: initial encounter Qualified Code(s): W19.XXXA - Unspecified fall, initial encounter
--- NOTE | 2023-07-04 15:20 | Billing Data ---
Date of Service July 04, 2023 Coding Level of Care Code 66379 SUB INP/OBS CARE
--- NOTE | 2023-07-05 11:40 | Hospitalist Progress Note ---
Date of Service July 05, 2023 Assessment & Plan (1) Elevated troponin: Plan: Pt is a 77 yo female with PMH of RA, chronic anemia, CKD, chronic bilateral LE wound, HTN, and HLD presenting to the hospital after "feeling off" and fall at home resulting in left ankle pain. Weakness, left ankle pain after fall - no current signs of infection with normal WBC, afebrile, only notes feeling fatigued; CK WNL - blood cultures neg after 48 hrs, right leg wound culture from 06/18 negative, urine cx contaminated - xray obtained of L foot; no evidence of fracture but showed soft tissue swelling - suspect multifactorial: deconditioning, poor PO intake/dehydration, chronic wounds, depression/acute stress - continue ice PRN - PT/OT consults placed; recommending rehab- pending placement - encouraged pt to continue PT while hospitalized; continue encouraging pt to increase time out of bed Depression/situational stress - no current depression tx; recently exacerbated d/t pt's brother's health - consider SSRI treatment as outpatient Chronic LE wounds, PAD, venous stasis, lymphedema - follows with wound clinic 3x per week; wound nurse consulted - recent history of MSSA and Enterobacter cloacae on recent surface culture of R heel; wound clinic notes early stage wound at R heel - will hold antibiotics at this time as patient is afebrile/normal WBC/normal procal Thrombocytopenia - admission platelet count of 117; 100 after fluids - episodes of thrombocytopenia in the past with normal values in between - peripheral smear showed non-specific pancytopenia Elevated troponin - mild elevation from 84.9 to 135.7; received aspirin in ED - w/o chest pain - peaked at 197, no longer trending CKD Stage 4, stable - Cr 1.68 on admission; baseline appears 1.5-1.8 Anemia of chronic disease, stable - Hgb 9.9 on admission; pt's baseline appears to be around 8-10 Rheumatoid arthritis, stable - continue home medications; prednisone 5 mg daily, leflunomide 10 mg 3x per week, hydroxychloroquine 400 mg qHS Dispo: med surg, pending rehab placement (pt prefers [facility]) VTE ppx: Heparin subQ Diet: heart healthy Code: DNR/DNI (2) Pressure ulcer of right heel, stage 1: (3) Weakness: (4) Fall: (5) Heart murmur: (6) Anemia of chronic disease: (7) Chronic kidney disease, stage 4 (severe): (8) Acute diastolic CHF (congestive heart failure): (9) Venous stasis dermatitis: Admission and Anticipated Discharge Date Admission Date: June 26, 2023 Supervising Physician Co-Signing Physician Notes I personally examined the patient and verified all wood points of history and exam, discussed case, and agree with decision making with Dr Platt no new problems no new complaints. Vitals noted, in general she is forlorn but no physical distress. HEENT normocephalic atraumatic mucous membranes moist. Breathing unlabored no accessory muscle use good effort. Skin shows no rashes no pallor or icterus. Neuro without focal deficits. WeaknessPT/OT eval and treat. Does not look like she would be safe at home. PT OT eval and treat, still awaiting bed at [facility], stable to go when bed available, on 07/03 i encouraged her to consider a back up plan in case bed at [facility] does not materialize Leg woundswound care appreciated. DVT prophylaxisheparin subcu otherwise as above Subjective Awake in bed this morning on arrivaleating breakfast. Left ankle pain improved with administration of ice pack. She continues to express surprise that her dispo to [facility] is taking so long. Review of Systems Review of Systems: All systems reviewed & are unremarkable except as noted in HPI & below Physical Exam Physical Exam: General: no acute distress, speaking in full sentences Resp: good inspiratory effort, no labored breathing HEENT: conjunctivae appear clear, no audible congestion, no swelling noted face or lips Skin: skin appears dry, normal coloration, no rash visible on exposed skin areas Neuro: alert and oriented x3, no focal deficits appreciated Psych: euthymic affect, pleasant and interactive, logical thought process Results & Data Results & Data Vital Signs (Past 12 Hours) Vital Signs Temp Pulse Resp BP Pulse Ox O2 Del Method 07/05/23 07:13 36.6 C 56 L 16 167/75 H 99 Room Air Resident Activity Tracking Resident Involvement: Resident Care Provided Care Provided: Adult Hospital Medicine (4) Fall Encounter type: initial encounter Qualified Code(s): W19.XXXA - Unspecified fall, initial encounter
--- NOTE | 2023-07-05 18:06 | Billing Data ---
Date of Service July 05, 2023 Coding Level of Care Code [id number] SUB INP/OBS CARE
[2023-07-06 07:05] LABS: Hematocrit (blood only) 30.1 % (37.0-47.0); Hemoglobin 9.1 g/dl (12.0-16.0); Mean Corpuscular Hemoglobin 27.5 pg (25.0-34.0); Mean Corpuscular Hgb Conc 30.2 g/dL (32.0-36.0); Mean Corpuscular Volume 90.9 fL (80.0-100.0); Platelet Count 130 K/uL (130-400); RDW Coefficient of Variation 14.6 % (11.5-14.5); RDW Standard Deviation 48.4 fL (36.4-46.3); Red Blood Count 3.31 M/uL (4.20-5.40); White Blood Count 5.46 K/ul (4.8-10.8)
--- NOTE | 2023-07-06 07:06 | Hospitalist Progress Note ---
Date of Service July 06, 2023 Assessment & Plan (1) Elevated troponin: Plan: Pt is a 77 yo female with PMH of RA, chronic anemia, CKD, chronic bilateral LE wound, HTN, and HLD presenting to the hospital after "feeling off" and fall at home resulting in left ankle pain. Weakness, left ankle pain after fall - no current signs of infection with normal WBC, afebrile, only notes feeling fatigued; CK WNL - blood cultures neg after 48 hrs, right leg wound culture from 06/18 negative, urine cx contaminated - xray obtained of L foot; no evidence of fracture but showed soft tissue swelling - suspect multifactorial: deconditioning, poor PO intake/dehydration, chronic wounds, depression/acute stress - continue ice PRN - PT/OT consults placed; recommending rehab- pending placement - encouraged pt to continue PT while hospitalized; continue encouraging pt to increase time out of bed Depression/situational stress - no current depression tx; recently exacerbated d/t pt's brother's health - consider SSRI treatment as outpatient Chronic LE wounds, PAD, venous stasis, lymphedema - follows with wound clinic 3x per week; wound nurse consulted - recent history of MSSA and Enterobacter cloacae on recent surface culture of R heel; wound clinic notes early stage wound at R heel - no antibiotics necessary Thrombocytopenia - admission platelet count of 117; 100 after fluids - episodes of thrombocytopenia in the past with normal values in between - peripheral smear showed non-specific pancytopenia Elevated troponin - mild elevation from 84.9 to 135.7; received aspirin in ED - w/o chest pain - peaked at 197, no longer trending CKD Stage 4, stable - Cr 1.68 on admission; baseline appears 1.5-1.8 Anemia of chronic disease, stable - Hgb 9.9 on admission; pt's baseline appears to be around 8-10 Rheumatoid arthritis, stable - continue home medications; prednisone 5 mg daily, leflunomide 10 mg 3x per week, hydroxychloroquine 400 mg qHS Dispo: med surg, pending rehab placement (pt prefers [facility]) VTE ppx: Heparin subQ Diet: heart healthy Code: DNR/DNI (2) Pressure ulcer of right heel, stage 1: (3) Weakness: (4) Fall: (5) Heart murmur: (6) Anemia of chronic disease: (7) Chronic kidney disease, stage 4 (severe): (8) Acute diastolic CHF (congestive heart failure): (9) Venous stasis dermatitis: Admission and Anticipated Discharge Date Admission Date: June 26, 2023 Supervising Physician Co-Signing Physician Notes ATTESTATION I also saw the patient and confirmed wood portions of the history and exam. I agree with the impression and plan in the resident documentation, and as summarized below. She has no complaints; she is looking forward to discharge and some stuart abilitation at [facility]. EXAM 120/67, 58, 16, 36.6, 90% room air She is alert and oriented. Pleasant. No distress appreciated. Heart regular Respirations nonlabored, lungs clear DATA Labs Hemoglobin 9.1, stable to trending up Platelet count 130 (previously mid 90s) Sodium 143, potassium 4.4, BUN 34, creatinine 1.61 (creatinine previously 1.71, 1.77) IMPRESSION & PLAN Generalized weakness Awaiting placement CKD stage IV, stable Thrombocytopenia, improved Anemia of chronic disease, stable Additional per resident documentation Subjective Pt is a 77 yo female with PMH of RA, chronic anemia, CKD, chronic bilateral LE wound, HTN, and HLD presenting to the hospital after "feeling off" and fall at home resulting in left ankle pain. No new concerns. Pt wanting to leave [facility] as she needs to get stronger because her brother is very sick- she is currently only considering [facility]. She is to have her wound dressings changed today. Review of Systems Review of Systems: As per HPI Physical Exam Physical Exam: Constitutional: well appearing, no acute distress HEENT: normocephalic, no conjunctival injection CV: clinically well perfused Respiratory: no increased work of breathing MSK: no gross deformities noted; bilateral LE wrapped in bandages up to knees Skin: warm, dry Neuro: alert, oriented, no FND noted Psych: mood and affect congruent Results & Data Results & Data Vital Signs (Past 12 Hours) Vital Signs Temp Pulse Resp BP Pulse Ox O2 Del Method 07/05/23 20:13 Room Air 07/05/23 19:32 36.7 C 67 16 154/77 H 97 Room Air Resident Activity Tracking Resident Involvement: Resident Care Provided Care Provided: Adult Hospital Medicine (4) Fall Encounter type: initial encounter Qualified Code(s): W19.XXXA - Unspecified fall, initial encounter
[2023-07-06 07:24] LABS: BUN Creatinine Ratio 21.1 (10-20); Calcium 8.4 mg/dl (8.6-10.3); Creatinine Clr Calc Pharmacy 30.8 ml/min; Est GFR (African American) 35.4 ml/min; Est GFR (Non-African American) 30.5 ml/min; Potassium 4.4 mmol/L (3.5-5.1)
--- NOTE | 2023-07-07 07:00 | Hospitalist Progress Note ---
Date of Service July 07, 2023 Assessment & Plan (1) Elevated troponin: Plan: Pt is a 77 yo female with PMH of RA, chronic anemia, CKD, chronic bilateral LE wound, HTN, and HLD presenting to the hospital after "feeling off" and fall at home resulting in left ankle pain. Weakness, left ankle pain after fall - no current signs of infection with normal WBC, afebrile, only notes feeling fatigued; CK WNL - blood cultures neg after 48 hrs, right leg wound culture from 06/18 negative, urine cx contaminated - xray obtained of L foot; no evidence of fracture but showed soft tissue swelling - suspect multifactorial: deconditioning, poor PO intake/dehydration, chronic wounds, depression/acute stress - continue ice PRN - PT/OT consults placed; recommending rehab- pending placement to [facility] - encouraged pt to continue PT while hospitalized; continue encouraging pt to increase time out of bed Depression/situational stress - no current depression tx; recently exacerbated d/t pt's brother's health - consider SSRI treatment as outpatient Chronic LE wounds, PAD, venous stasis, lymphedema - follows with wound clinic 3x per week; wound nurse consulted - recent history of MSSA and Enterobacter cloacae on recent surface culture of R heel; wound clinic notes early stage wound at R heel - no antibiotics necessary Thrombocytopenia - admission platelet count of 117; 100 after fluids - episodes of thrombocytopenia in the past with normal values in between - peripheral smear showed non-specific pancytopenia Elevated troponin - mild elevation from 84.9 to 135.7; received aspirin in ED - w/o chest pain - peaked at 197, no longer trending CKD Stage 4, stable - Cr 1.68 on admission; baseline appears 1.5-1.8 Anemia of chronic disease, stable - Hgb 9.9 on admission; pt's baseline appears to be around 8-10 Rheumatoid arthritis, stable - continue home medications; prednisone 5 mg daily, leflunomide 10 mg 3x per week, hydroxychloroquine 400 mg qHS Dispo: med surg, pending rehab placement (pt prefers [facility]) VTE ppx: Heparin subQ Diet: heart healthy Code: DNR/DNI (2) Pressure ulcer of right heel, stage 1: (3) Weakness: (4) Fall: (5) Heart murmur: (6) Anemia of chronic disease: (7) Chronic kidney disease, stage 4 (severe): (8) Acute diastolic CHF (congestive heart failure): (9) Venous stasis dermatitis: Admission and Anticipated Discharge Date Admission Date: June 26, 2023 Supervising Physician Co-Signing Physician Notes ATTESTATION I also saw the patient and confirmed wood portions of the history and exam. I agree with the impression and plan in the resident documentation, and as summarized below. She had some pain in her ankle overnight which he reports sleep; responded to Tylenol. EXAM 139/52, 56, 14, 36.5, 90% on room air She is alert and oriented. Pleasant. No distress appreciated. Heart regular Respirations nonlabored DATA Labs No new labs IMPRESSION & PLAN Generalized weakness Awaiting placement CKD stage IV, stable Thrombocytopenia, improved Anemia of chronic disease, stable Additional per resident documentation Subjective Pt is a 77 yo female with PMH of RA, chronic anemia, CKD, chronic bilateral LE wound, HTN, and HLD presenting to the hospital after "feeling off" and fall at home resulting in left ankle pain. No new concerns. Pt becoming increasingly frustrated without be able to get a bed at [facility]. Review of Systems Review of Systems: As per HPI Physical Exam Physical Exam: Constitutional: ill appearing, no acute distress HEENT: normocephalic, no conjunctival injection CV: clinically well perfused Respiratory: no increased work of breathing MSK: no gross deformities noted Skin: warm, dry, no rashes Neuro: alert, oriented, no FND noted Psych: mood and affect congruent Results & Data Results & Data Vital Signs (Past 12 Hours) Vital Signs Temp Pulse Resp BP Pulse Ox O2 Del Method 07/06/23 20:31 Room Air 07/06/23 20:27 36.8 C 62 16 147/74 H 97 Room Air Resident Activity Tracking Resident Involvement: Resident Care Provided Care Provided: Adult Hospital Medicine (4) Fall Encounter type: initial encounter Qualified Code(s): W19.XXXA - Unspecified fall, initial encounter
--- NOTE | 2023-07-08 07:11 | Hospitalist Progress Note ---
Date of Service July 08, 2023 Assessment & Plan (1) Elevated troponin: Plan: Pt is a 77 yo female with PMH of RA, chronic anemia, CKD, chronic bilateral LE wound, HTN, and HLD presenting to the hospital after "feeling off" and fall at home resulting in left ankle pain. Weakness, left ankle pain after fall - no current signs of infection with normal WBC, afebrile, only notes feeling fatigued; CK WNL - blood cultures neg after 48 hrs, right leg wound culture from 06/18 negative, urine cx contaminated - xray obtained of L foot; no evidence of fracture but showed soft tissue swelling - suspect multifactorial: deconditioning, poor PO intake/dehydration, chronic wounds, depression/acute stress - continue ice PRN - PT/OT consults placed; recommending rehab- [facility] cannot accept, pending placement- referrals out to [facility] - encouraged pt to continue PT while hospitalized; continue encouraging pt to increase time out of bed Depression/situational stress - no current depression tx; recently exacerbated d/t pt's brother's health - consider SSRI treatment as outpatient Chronic LE wounds, PAD, venous stasis, lymphedema - follows with wound clinic 3x per week; wound nurse consulted - recent history of MSSA and Enterobacter cloacae on recent surface culture of R heel; wound clinic notes early stage wound at R heel - no antibiotics necessary Thrombocytopenia - admission platelet count of 117; 100 after fluids - episodes of thrombocytopenia in the past with normal values in between - peripheral smear showed non-specific pancytopenia Elevated troponin - mild elevation from 84.9 to 135.7; received aspirin in ED - w/o chest pain - peaked at 197, no longer trending CKD Stage 4, stable - Cr 1.68 on admission; baseline appears 1.5-1.8 Anemia of chronic disease, stable - Hgb 9.9 on admission; pt's baseline appears to be around 8-10 Rheumatoid arthritis, stable - continue home medications; prednisone 5 mg daily, leflunomide 10 mg 3x per week, hydroxychloroquine 400 mg qHS Dispo: med surg, pending rehab placement VTE ppx: Heparin subQ Diet: heart healthy Code: DNR/DNI (2) Pressure ulcer of right heel, stage 1: (3) Weakness: (4) Fall: (5) Heart murmur: (6) Anemia of chronic disease: (7) Chronic kidney disease, stage 4 (severe): (8) Acute diastolic CHF (congestive heart failure): (9) Venous stasis dermatitis: Admission and Anticipated Discharge Date Admission Date: June 26, 2023 Supervising Physician Co-Signing Physician Notes ATTESTATION I also saw the patient and confirmed wood portions of the history and exam. I agree with the impression and plan in the resident documentation, and as summarized below. She tells us that she slept really well overnight. Care management has widen her search for a bed. EXAM 139/71, 58, 16, 36.5, 97% room air She is alert and oriented. Pleasant. No distress appreciated. Heart regular Respirations nonlabored DATA Labs No new labs IMPRESSION & PLAN Generalized weakness Awaiting placement; facility search expanded so hopefully should be able be placed in next couple of days CKD stage IV, stable Thrombocytopenia, improved Anemia of chronic disease, stable Additional per resident documentation Subjective Pt is a 77 yo female with PMH of RA, chronic anemia, CKD, chronic bilateral LE wound, HTN, and HLD presenting to the hospital after "feeling off" and fall at home resulting in left ankle pain. Pt working with OT this morning. She was told that [facility] does not have a bed for her. Review of Systems Review of Systems: As per HPI Physical Exam Physical Exam: Constitutional: well appearing, no acute distress HEENT: normocephalic, no conjunctival injection CV: clinically well perfused Respiratory: no increased work of breathing MSK: no gross deformities noted Skin: warm, dry; bilateral leg wounds dressed Neuro: alert, oriented, no FND noted Psych: mood and affect congruent Results & Data Results & Data Vital Signs (Past 12 Hours) Vital Signs Temp Pulse Resp BP Pulse Ox O2 Del Method 07/07/23 21:26 36.8 C 58 L 16 134/72 96 Room Air 07/07/23 20:50 Room Air Resident Activity Tracking Resident Involvement: Resident Care Provided Care Provided: Adult Hospital Medicine (4) Fall Encounter type: initial encounter Qualified Code(s): W19.XXXA - Unspecified fall, initial encounter
--- NOTE | 2023-07-09 07:31 | Hospitalist Progress Note ---
Date of Service July 09, 2023 Assessment & Plan (1) Elevated troponin: Plan: Pt is a 77 yo female with PMH of RA, chronic anemia, CKD, chronic bilateral LE wound, HTN, and HLD presenting to the hospital after "feeling off" and fall at home resulting in left ankle pain. Weakness, left ankle pain after fall - no current signs of infection with normal WBC, afebrile, only notes feeling fatigued; CK WNL - blood cultures neg after 48 hrs, right leg wound culture from 06/18 negative, urine cx contaminated - xray obtained of L foot; no evidence of fracture but showed soft tissue swelling - suspect multifactorial: deconditioning, poor PO intake/dehydration, chronic wounds, depression/acute stress - continue ice PRN - PT/OT consults placed; recommending rehab- [facility] has bed for pt tomorrow - encouraged pt to continue PT while hospitalized; continue encouraging pt to increase time out of bed Depression/situational stress - no current depression tx; recently exacerbated d/t pt's brother's health - consider SSRI treatment as outpatient Chronic LE wounds, PAD, venous stasis, lymphedema - follows with wound clinic 3x per week; wound nurse consulted - recent history of MSSA and Enterobacter cloacae on recent surface culture of R heel; wound clinic notes early stage wound at R heel - no antibiotics necessary Thrombocytopenia - admission platelet count of 117; 100 after fluids - episodes of thrombocytopenia in the past with normal values in between - peripheral smear showed non-specific pancytopenia Elevated troponin - mild elevation from 84.9 to 135.7; received aspirin in ED - w/o chest pain - peaked at 197, no longer trending CKD Stage 4, stable - Cr 1.68 on admission; baseline appears 1.5-1.8 Anemia of chronic disease, stable - Hgb 9.9 on admission; pt's baseline appears to be around 8-10 Rheumatoid arthritis, stable - continue home medications; prednisone 5 mg daily, leflunomide 10 mg 3x per week, hydroxychloroquine 400 mg qHS Dispo: med surg, d/c to [facility] tomorrow VTE ppx: Heparin subQ Diet: heart healthy Code: DNR/DNI (2) Pressure ulcer of right heel, stage 1: (3) Weakness: (4) Fall: (5) Heart murmur: (6) Anemia of chronic disease: (7) Chronic kidney disease, stage 4 (severe): (8) Acute diastolic CHF (congestive heart failure): (9) Venous stasis dermatitis: Admission and Anticipated Discharge Date Admission Date: June 26, 2023 Supervising Physician Co-Signing Physician Notes ATTESTATION I also saw the patient and confirmed wood portions of the history and exam. I agree with the impression and plan in the resident documentation, and as summarized below. No new complaints EXAM 121/75, 58, 16, 36.7, 90% on room air She is alert and oriented. Pleasant. No distress appreciated. Heart regular Respirations nonlabored DATA Labs No new labs IMPRESSION & PLAN Generalized weakness Awaiting placement; [facility] can accept the patient tomorrow. CKD stage IV, stable Thrombocytopenia, improved Anemia of chronic disease, stable Additional per resident documentation Subjective Pt is a 77 yo female with PMH of RA, chronic anemia, CKD, chronic bilateral LE wound, HTN, and HLD presenting to the hospital after "feeling off" and fall at home resulting in left ankle pain. Doing the same this morning- progressing well with PT/OT. Pt has been notified that there is a bed for her at [facility] tomorrow. Review of Systems Review of Systems: As per HPI Physical Exam Physical Exam: Constitutional: well appearing, no acute distress HEENT: normocephalic, no conjunctival injection CV: clinically well perfused Respiratory: no increased work of breathing MSK: no gross deformities noted Skin: warm, dry, no rashes Neuro: alert, oriented, no FND noted Psych: mood and affect congruent Results & Data Results & Data Vital Signs (Past 12 Hours) Vital Signs Temp Pulse Resp BP Pulse Ox O2 Del Method 07/08/23 20:46 36.6 C 65 16 138/81 97 Room Air Resident Activity Tracking Resident Involvement: Resident Care Provided Care Provided: Adult Hospital Medicine (4) Fall Encounter type: initial encounter Qualified Code(s): W19.XXXA - Unspecified fall, initial encounter
--- NOTE | 2023-07-10 14:12 | Discharge Summary ---
Date of Service July 10, 2023 Admission HPI Per Admitting Provider Dona Villalpando is a 77 year-old female with a past medical history of CKD stage 4, recurrent lower extremity wounds and pressure ulcers secondary to venous stasis and peripheral arterial disease, CHF, rheumatoid arthritis. She presented to the ED after a fall at home- she reports feeling weak while ambulating at home and had to "lower herself" to the floor. When she was on the floor, she reports her left foot was stuck underneath her right leg and she has had pain in the left foot since then with ambulation. She notes that she was recently admitted to the hospital and had a subsequent rehab stay at [facility] but was discharged "due to insurance issues". She states that since she has been home, she has been doing well and has been going to wound care three times per week. She also reports that she had a recent diagnosis of laryngitis which she received doxycycline for (completed antibiotics ~1 week ago). States she has been eating and drinking normally, denies nausea/vomiting/diarrhea/constipation/dysuria. Denies fever/body aches/chills. States she has been feeling "a bit unwell" and fatigued but denies any specific symptoms in the past few days. Patient notes she lives in her own home, uses a walker to ambulate. States her brother lives in an apartment in her basement, reports that he is "very sick" with cancer and has been seen at [facility] but declines any cancer treatment which has been very upsetting and frustrating for the patient. ED Course: -Aspirin -Chest XR, L foot XR Admission Exam Per Admitting Provider Constitutional: + frail appearing; no acute distress Eyes: + anicteric sclerae; no conjunctival abn ormality ENMT: Ears: no external ear abnormality Nose: no external nose abnormality Moist mucous membranes Respiratory: normal respiratory effort, lungs clear to auscultation Cardiovascular: Rate/Rhythm: regular rate and regular rhythm Heart Sounds: + murmur Gastrointestinal (Abdomen): Inspection/Auscultation: abdomen normal to inspec tion; abdomen not distended Percussion/Palpation: abdomen soft; abdomen nontender Musculoskeletal: Pain with weight bearing on L foot. Can move extremities independently. No focal limb weakness. Skin: +2 pitting edema of bilateral lower extr emities up to knees. Tray bandages applied covering wounds up to bilateral knees, some erythema noted extending slightly above bandages. Neurologic: no focal motor deficits Psychiatric: A+Ox3, euthymic affect Principal Diagnosis Pressure ulcer of left foot s/p fall Discharge Exam General: Seated comfortably in chair in no acute distress. Resp: good inspiratory effort, no labored breathing HEENT: conjunctivae appear clear, no audible congestion, no swelling noted face or lips Skin: skin appears dry, normal coloration, no rash visible on exposed skin areas Neuro: alert and oriented x3, no focal deficits appreciated Psych: euthymic affect, pleasant and interactive, logical thought process Discharge Data Allergies Allergy/AdvReac Type Severity Reaction Status Date / Time cefadroxil Allergy Intermediate Rash Verified 06/26/23 08:30 Sulfa (Sulfonamide Allergy Intermediate RASH Verified 06/26/23 08:30 Antibiotics) cefepime Allergy Unknown Unknown Verified 06/26/23 08:30 cephalexin [From Keflex] Allergy Unknown Unknown Verified 06/26/23 08:30 levofloxacin [From Levaquin] AdvReac Intermediate rash Verified 06/26/23 08:30 oxycodone AdvReac Mild NAUSEA Verified 06/26/23 08:30 Consultations 06/26/23 21:48 ED Decision to Admit Stat Hospital Course (1) Elevated troponin: Pt is a 77 yo female with PMH of RA, chronic anemia, CKD, chronic bilateral LE wound, HTN, and HLD presenting to the hospital after "feeling off" and fall at home resulting in left ankle pain. Weakness, left ankle pain after fall - no current signs of infection with normal WBC, afebrile, only notes feeling fatigued; CK WNL - blood cultures neg after 48 hrs, right leg wound culture from 06/18 negative, urine cx contaminated - XR obtained of L foot; no evidence of fracture but showed soft tissue swelling - suspect multifactorial: deconditioning, poor PO intake/dehydration, chronic wounds, depression/acute stress - continue ice PRN - PT/OT consults placed; recommending rehab-discharged to [facility] 07/09 - Encouraged pt to continue PT while hospitalized; continue encouraging pt to increase time out of bed Depression/situational stress - no current depression tx; recently exacerbated d/t pt's brother's health - consider SSRI treatment as outpatient Chronic LE wounds, PAD, venous stasis, lymphedema - follows with wound clinic 3x per week; wound nurse consulted - recent history of MSSA and Enterobacter cloacae on recent surface culture of R heel; wound clinic notes early stage wound at R heel - no antibiotics necessary Thrombocytopenia - admission platelet count of 117; 100 after fluids - episodes of thrombocytopenia in the past with normal values in between - peripheral smear showed non-specific pancytopenia Elevated Troponin - mild elevation from 84.9 to 135.7; received aspirin in ED - w/o chest pain - peaked at 197, no longer trending CKD Stage 4, stable - Cr 1.68 on admission; baseline appears 1.5-1.8 Anemia of Chronic Disease, stable - Hgb 9.9 on admission; pt's baseline appears to be around 8-10 Rheumatoid Arthritis, stable - continue home medications; prednisone 5 mg daily, leflunomide 10 mg 3x per week, hydroxychloroquine 400 mg qHS (2) Pressure ulcer of right heel, stage 1: (3) Weakness: (4) Fall: (5) Heart murmur: (6) Anemia of chronic disease: (7) Chronic kidney disease, stage 4 (severe): (8) Acute diastolic CHF (congestive heart failure): (9) Venous stasis dermatitis: Total Time Total Time Spent Total Time Spent (In Minutes): 32 Discharge Plan Discharge Items Patient Disposition: Transfer Correction Fac Reason For Visit: WEAKNESS, FALL Discharge Diagnosis: Pressure ulcer of right heel Activity: Per Instructions section Non-emergency contact: Primary Care Provider Call non-emergency contact if: you have any medication questions Follow-up/Referrals: Svetlana Rosales CRNP [Primary Care Provider] - Diet: Regular Addtl Attending Provider Instructions: 77F with PMH of RA, chronic anemia, CKD, chronic bilateral LE wound, HTN, and HLD presenting to the hospital after "feeling off" and fall at home resulting in left ankle pain. Weakness, left ankle pain after fall - no current signs of infection with normal WBC, afebrile, only notes feeling fatigued; CK WNL - blood cultures neg after 48 hrs, right leg wound culture from 06/18 negative, urine cx contaminated - XR obtained of L foot; no evidence of fracture but showed soft tissue swelling - suspect multifactorial: deconditioning, poor PO intake/dehydration, chronic wounds, depression/acute stress - continue ice PRN - Continue encouraging pt to increase time out of bed Depression/situational stress - no current depression tx; recently exacerbated d/t pt's brother's health - consider SSRI treatment as outpatient Chronic LE wounds, PAD, venous stasis, lymphedema - follows with wound clinic 3x per week; wound nurse consulted - recent history of MSSA and Enterobacter cloacae on recent surface culture of R heel; wound clinic notes early stage wound at R heel - no antibiotics necessary Thrombocytopenia - admission platelet count of 117; 100 after fluids - episodes of thrombocytopenia in the past with normal values in between - peripheral smear showed non-specific pancytopenia Elevated troponin - mild elevation from 84.9 to 135.7; received aspirin in ED - w/o chest pain - peaked at 197, no longer trending CKD Stage 4, stable - Cr 1.68 on admission; baseline appears 1.5-1.8 Anemia of chronic disease, stable - Hgb 9.9 on admission; pt's baseline appears to be around 8-10 Rheumatoid arthritis, stable - continue home medications; prednisone 5 mg daily, leflunomide 10 mg 3x per week, hydroxychloroquine 400 mg qHS Pending Studies at Discharge: No Stand-Alone Forms: My [facility] Skilled Items Patient informed of condition?: Yes DNR: Yes Discharge Level of Care: Skilled Communicable Disease: No Discharge Prognosis: Improving Lines: None Urinary Catheter: No Medications and DC Order Prescriptions: Continued leflunomide 10 mg tablet 10 mg PO [id number] Rx Instructions: 05/14/23 : PT REPORTS SHE TAKES THIS MED EVERY THURSDAY/THURSDAY/& THURSDAY. prednisone 5 mg tablet 5 mg PO QAM hydroxychloroquine 200 mg tablet 400 mg PO HS pravastatin 20 mg tablet 20 mg PO HS Discharge Orders: Discharge Order (Routine); Ordered 07/10/23 Ordered By: Anirudh Platt Admission Data Admit Date/Time: 06/26/23 23:09 Attending Provider: Ruby Watts Admit Provider: Savannah Johnson Primary Care Provider: Svetlana Rosales Other Providers: Carlos Kaye; Amara Liu at [facility]; [facility]; [facility] Other Interventions: Discharge Summary Assessment (RN) Last Done: 07/10/23 12:14 Supervising Physician Co-Signing Physician Notes I personally examined the patient and verified wood points of history and exam, discussed case, and agree with decision making and plan documented by Dr. Platt. Patient with no new complaints today. She is optimistic for rehabilitation at [facility]. Hope is to return safely home. Unfortunately her brother is currently dying and refusing hospice which is upsetting to her, she does have a sister in [place] who is a support. Resident Activity Tracking Resident Involvement: Resident Care Provided Care Provided: Adult [facility] Medicine
== END 2023-07-10 13:11 | DRG 947 ==
LOC: ED 17:48 → 2W 23:09 → SUATTDRO 23:09 → 2W 06-27 00:02 → 3W 07-01 18:09